=== PATIENT | female | born 1960 | race Caucasian/White ===

== ENCOUNTER → 2017-09-01 12:24 | Outpatient (CLI) | payer MEDICAID, SELFPAY ==
[2017-09-01 12:49] LABS: Basophils # 0.1 K/mm3 (0-0.2); Basophils % 0.9 % (0.1-2.0); Eosinophils # 0.1 K/mm3 (0.0-0.4); Eosinophils % 2.2 % (0.1-12.0); Hematocrit 33.2 % (37.0-47.0); Lymphocytes # 1.2 K/mm3 (0.7-4.5); Lymphocytes % 19.4 K/mm3 (10-50); Mean Corpuscular Hemoglobin 28.4 pg (27.0-31.2); Mean Corpuscular Volume 86.1 fl (81-99); Monocytes # 0.3 K/mm3 (0.1-1.0); Monocytes % 4.5 % (1.7-9.3); Neutrophils # 4.6 K/mm3 (1.8-7.8); Platelet Count 181 K/mm3 (142-424); Red Blood Count 3.85 M/mm3 (4.20-5.40); Red Cell Distribution Width 12.8 % (11.5-17.5); White Blood Count 6.3 K/mm3 (4.8-10.8)
[2017-09-01 13:12] LABS: Creatinine,Urine Random 16 mg/dL (20-320)
[2017-09-01 13:19] LABS: Albumin Level 3.7 gm/dL (3.4-5.0); Anion Gap 14.3 mEq/L (5-15); Blood Urea Nitrogen 39 mg/dL (7-18); Carbon Dioxide 28 mmol/L (21.0-32.0); Chloride 100 mmol/L (98-107); Creatinine,Serum 1.37 mg/dL (0.55-1.02); GFR (African American) 48 ML/MIN (>60); Glucose 145 mg/dL (74-106); Phosphorous 3.8 mg/dL (2.4-4.9); Potassium 4.3 mmoL/L (3.5-5.1); Sodium 138 mmol/L (136-145)
[2017-09-01 14:08] LABS: Glomerular Filtration Rate 39 mL/min (>60)
[2017-09-02 14:23] LABS: Vitamin D 25 Hydroxy 27.4 ng/mL (30.0-100.0)
[2017-09-02 14:26] LABS: Parathyroid Hormone Intact 34 pg/mL (15-65)
== END ==
PROVIDERS: PCP Internal Medicine Nephrology; Visit Provider Internal Medicine Nephrology
DX: N18.3 Chronic kidney disease, stage 3 (moderate) (principal)
CPT/HCPCS: 80069; 82570; 82652; 83970; 85025

== ENCOUNTER → 2017-10-23 12:22 | Outpatient (CLI) | payer MEDICAID, SELFPAY ==
[2017-10-23 12:24] LABS: Microscopic, Urine URINE MICROSCOPIC (MICROSCOPIC)
[2017-10-23 12:43] LABS: Basophils % 0.5 % (0.1-2.0); Eosinophils # 0.1 K/mm3 (0.0-0.4); Eosinophils % 2.1 % (0.1-12.0); Hematocrit 32.8 % (37.0-47.0); Hemoglobin 10.9 g/dL (12.2-16.2); Lymphocytes # 0.9 K/mm3 (0.7-4.5); Lymphocytes % 15.7 K/mm3 (10-50); Mean Corpuscular Hemoglobin 28.5 pg (27.0-31.2); Mean Corpuscular Volume 86.1 fl (81-99); Monocytes # 0.3 K/mm3 (0.1-1.0); Monocytes % 5.3 % (1.7-9.3); Neutrophils # 4.6 K/mm3 (1.8-7.8); Neutrophils % 76.3 % (37.0-80.0); Platelet Count 159 K/mm3 (142-424); Red Blood Count 3.81 M/mm3 (4.20-5.40); Red Cell Distribution Width 13.8 % (11.5-17.5)
[2017-10-23 12:58] LABS: Appearance,Urine SL CLOUDY (Clear); Bilirubin,Urine Negative (Negative); Blood, Urine 2+ (Negative); Color,Urine YELLOW (Yellow); Glucose,Urine (UA) Negative (Negative); Ketones,Urine Negative (Negative); Leukocyte Esterase,Urine 3+ (Negative); Nitrate,Urine POSITIVE (Negative); Protein,Urine Negative (Negative); Urobilinogen,Urine 0.2 EU/dl (0.2)
[2017-10-23 13:13] LABS: Bacteria,Urine 1+ /lpf; Mucus,Urine Trace /lpf; WBC,Urine 20-50 #/hpf (0-3)
[2017-10-23 13:21] LABS: Creatinine,Urine Random 50 mg/dL (20-320); Total Protein,Urine Random 29.1 mg/dL (0.0-11.9)
[2017-10-23 13:34] LABS: Albumin Level 3.8 gm/dL (3.4-5.0); Anion Gap 17.9 mEq/L (5-15); Blood Urea Nitrogen 40 mg/dL (7-18); Calcium 8.9 mg/dL (8.5-10.1); Carbon Dioxide 26 mmol/L (21.0-32.0); Chloride 102 mmol/L (98-107); Creatinine,Serum 1.44 mg/dL (0.55-1.02); Estimated Glomerular Filt Rate 38 ml/min (>60); GFR (African American) 45 ML/MIN (>60); Glucose 215 mg/dL (74-106); Phosphorous 4.6 mg/dL (2.4-4.9); Potassium 3.9 mmoL/L (3.5-5.1); Sodium 142 mmol/L (136-145)
== END ==
PROVIDERS: Visit Provider Internal Medicine Nephrology
DX: N18.3 Chronic kidney disease, stage 3 (moderate) (principal)
CPT/HCPCS: 36415; 80069; 81001; 82570; 84155; 85025; 87086; 87088; 87186

== ENCOUNTER → 2017-10-29 14:41 | Outpatient (POV) | payer MEDICAID, SELFPAY | PROVIDERS: PCP Internal Medicine Nephrology; Visit Provider Internal Medicine Nephrology | DX: Z00.00 Encounter for general adult medical examination without abnormal findings (principal) ==

== ENCOUNTER → 2017-12-21 07:50 | Outpatient (CLI) | payer MEDICAID, SELFPAY ==
[2017-12-21 09:45] LABS: Hemoglobin A1C 6.1 % (0.0-7.0)
[2017-12-21 09:59] LABS: Alanine Aminotransferase 29 U/L (12-78); Albumin Level 3.9 gm/dL (3.4-5.0); Albumin/Globulin Ratio 1.1 (1.1-1.8); Alkaline Phosphatase 63 U/L (46-116); Anion Gap 14.4 mEq/L (5-15); Aspartate Amino Transferase 16 U/L (15-37); Bilirubin,Total 0.4 mg/dL (0.2-1.0); Blood Urea Nitrogen 41 mg/dL (7-18); Calcium 9.2 mg/dL (8.5-10.1); Carbon Dioxide 27 mmol/L (21.0-32.0); Chloride 103 mmol/L (98-107); Chol/HDL Ratio 5.6 (1-3.5); Cholesterol 169 mg/dL (140-200); Creatinine,Serum 1.33 mg/dL (0.55-1.02); Estimated Glomerular Filt Rate 41 ml/min (>60); GFR (African American) 50 ML/MIN (>60); Globulin 3.6 gm/dl (1.3-3.2); Glucose 203 mg/dL (74-106); HDL Cholesterol 30 mg/dL (29-89); Potassium 4.4 mmoL/L (3.5-5.1); Sodium 140 mmol/L (136-145); Total Protein,Serum 7.5 gm/dL (6.4-8.2)
[2017-12-21 10:01] LABS: Triglycerides 469 mg/dL (30-200)
== END ==
PROVIDERS: Visit Provider Internal Medicine
DX: E11.9 Type 2 diabetes mellitus without complications (principal); I10 Essential (primary) hypertension
CPT/HCPCS: 36415; 80053; 80061; 83036

== ENCOUNTER 2018-02-16 12:29 | Outpatient (RCR) | payer MEDICAID, SELFPAY | END 2018-02-17 14:46 | disposition home or self-care (01) | LOC: PT 12:29 | PROVIDERS: PCP Internal Medicine Nephrology; Visit Provider Internal Medicine | DX: G82.20 Paraplegia, unspecified (principal) | CPT/HCPCS: 97542 ==

== ENCOUNTER → 2018-04-27 13:29 | Outpatient (CLI) | payer MEDICAID, SELFPAY ==
[2018-04-27 14:16] LABS: Basophils # 0.1 K/mm3 (0-0.2); Eosinophils # 0.1 K/mm3 (0.0-0.4); Eosinophils % 1.9 % (0.1-12.0); Hematocrit 30.8 % (37.0-47.0); Hemoglobin 10.2 g/dL (12.2-16.2); Lymphocytes # 1.1 K/mm3 (0.7-4.5); Lymphocytes % 19.4 K/mm3 (10-50); Mean Corpuscular HGB Conc 33.1 g/dL (31.8-35.4); Mean Corpuscular Hemoglobin 28.5 pg (27.0-31.2); Mean Platelet Volume 7.3 fl (7.4-10.4); Monocytes # 0.2 K/mm3 (0.1-1.0); Neutrophils # 4.3 K/mm3 (1.8-7.8); Neutrophils % 73.9 % (37.0-80.0); Platelet Count 236 K/mm3 (142-424); Red Blood Count 3.58 M/mm3 (4.20-5.40); Red Cell Distribution Width 14.1 % (11.5-17.5); White Blood Count 5.8 K/mm3 (4.8-10.8)
[2018-04-27 17:03] LABS: Albumin Level 3.8 gm/dL (3.4-5.0); Anion Gap 17.9 mEq/L (5-15); Blood Urea Nitrogen 24 mg/dL (7-18); Calcium 9.2 mg/dL (8.5-10.1); Carbon Dioxide 25 mmol/L (21.0-32.0); Chloride 103 mmol/L (98-107); Creatinine,Serum 1.07 mg/dL (0.55-1.02); Estimated Glomerular Filt Rate 53 ml/min (>60); GFR (African American) 64 ML/MIN (>60); Glucose 164 mg/dL (74-106); Phosphorous 3.7 mg/dL (2.4-4.9); Potassium 4.9 mmoL/L (3.5-5.1); Sodium 141 mmol/L (136-145)
== END ==
PROVIDERS: PCP Internal Medicine; Visit Provider Internal Medicine Nephrology
DX: N18.3 Chronic kidney disease, stage 3 (moderate) (principal)
CPT/HCPCS: 36415; 80069; 85025

== ENCOUNTER → 2018-04-29 09:33 | Outpatient (REF) | payer MEDICAID, SELFPAY ==
[2018-04-29 09:37] LABS: Microscopic, Urine URINE MICROSCOPIC (MICROSCOPIC)
[2018-04-29 10:18] LABS: Appearance,Urine CLEAR (Clear); Bilirubin,Urine Negative (Negative); Blood, Urine Negative (Negative); Color,Urine YELLOW (Yellow); Glucose,Urine (UA) Negative (Negative); Ketones,Urine Negative (Negative); Leukocyte Esterase,Urine Negative (Negative); Nitrate,Urine Negative (Negative); Protein,Urine Negative (Negative); Specific Gravity, Urine 1.015 (1.005-1.030); Urobilinogen,Urine 0.2 EU/dl (0.2)
[2018-04-29 10:55] LABS: Squamous Epithelial Cell,Urine Occasional #/hpf (0-5); WBC,Urine Occasional #/hpf (0-3)
[2018-04-29 10:56] LABS: Bacteria,Urine Trace /lpf
[2018-04-29 12:21] LABS: Creatinine,Urine Random 29 mg/dL (20-320); Total Protein,Urine Random 22.6 mg/dL (0.0-11.9)
== END ==
LOC: LAB 09:33
PROVIDERS: Visit Provider Internal Medicine Nephrology
DX: N18.3 Chronic kidney disease, stage 3 (moderate) (principal)
CPT/HCPCS: 81001; 82570; 84155

== ENCOUNTER → 2018-05-06 14:31 | Outpatient (POV) | payer MEDICAID, SELFPAY | PROVIDERS: PCP Internal Medicine; Visit Provider Internal Medicine Nephrology | DX: Z00.00 Encounter for general adult medical examination without abnormal findings (principal) ==

== ENCOUNTER → 2018-06-18 07:25 | Outpatient (CLI) | payer MEDICAID, SELFPAY ==
[2018-06-18 08:38] LABS: Hemoglobin A1C 6.2 % (0.0-7.0)
[2018-06-18 09:01] LABS: Alanine Aminotransferase 30 U/L (12-78); Albumin Level 3.8 gm/dL (3.4-5.0); Albumin/Globulin Ratio 1.1 (1.1-1.8); Alkaline Phosphatase 56 U/L (46-116); Anion Gap 16.1 mEq/L (5-15); Aspartate Amino Transferase 15 U/L (15-37); Bilirubin,Total 0.5 mg/dL (0.2-1.0); Blood Urea Nitrogen 25 mg/dL (7-18); Calcium 8.8 mg/dL (8.5-10.1); Carbon Dioxide 27 mmol/L (21.0-32.0); Chloride 103 mmol/L (98-107); Chol/HDL Ratio 4.1 (1-3.5); Cholesterol 142 mg/dL (140-200); Creatinine,Serum 1.04 mg/dL (0.55-1.02); Estimated Glomerular Filt Rate 54 ml/min (>60); GFR (African American) 66 ML/MIN (>60); Globulin 3.5 gm/dl (1.3-3.2); Glucose 169 mg/dL (74-106); HDL Cholesterol 35 mg/dL (29-89); LDL Cholesterol 41 mg/dL (0-130); Potassium 4.1 mmoL/L (3.5-5.1); Sodium 142 mmol/L (136-145); Thyroid Stimulating Hormone 1.89 uIU/ml (0.358-3.740); Total Protein,Serum 7.3 gm/dL (6.4-8.2); Triglycerides 328 mg/dL (30-200); VLDL Cholesterol 66 mg/dL (0-40)
== END ==
PROVIDERS: PCP Internal Medicine; Visit Provider Internal Medicine
DX: E11.21 Type 2 diabetes mellitus with diabetic nephropathy (principal); E78.5 Hyperlipidemia, unspecified; D64.9 Anemia, unspecified; N18.3 Chronic kidney disease, stage 3 (moderate); K76.0 Fatty (change of) liver, not elsewhere classified
CPT/HCPCS: 36415; 80053; 80061; 83036; 84443

== ENCOUNTER → 2018-07-13 14:58 | Outpatient (CLI) | payer MEDICAID, SELFPAY ==
--- NOTE | 2018-07-13 15:01 | MM_ITS ---
MM Dig screening mamm BI w/CAD ORDERING PHYSICIAN : Reji Cabello PATIENT AGE: 58 years GENDER: Female COMPARISON: May 2017, February 2013 bilateral mammogram February 2014Left mammogram INDICATION: ITS.October 2013 REASON: SCREENING no hormones no new complaints noncontributory family history. 58-year-old TECHNIQUE: Standard CC and MLO images were obtained. R2 CAD reviewed. FINDINGS: Moderate breast density. Asymmetric fibroglandular pattern RIGHT BREAST:Stable pattern and appearance. No new findings LEFT BREAST: Overall Stable Areas of nodularity on one view dissipate on another with no new areas of significant concern. . A few stable tiny benign punctate calcifications on cc view along with inferior skin calcifications noted.-Can be followed IMPRESSION: . No significant new areas of concern Bilateral follow-up in one year recommended. BI-RADS Category: 2 Benign Finding(s) RECOMMENDED FOLLOW-UP: 1YR 1 YEAR FOLLOW-UP (A letter has been sent to the patient regarding results of the study.)
== END ==
PROVIDERS: PCP Internal Medicine; Visit Provider Internal Medicine
DX: Z12.31 Encounter for screening mammogram for malignant neoplasm of breast (principal)
CPT/HCPCS: 77067

== ENCOUNTER → 2018-08-06 14:35 | Outpatient (CLI) | payer MEDICAID, SELFPAY ==
--- NOTE | 2018-08-06 14:41 | XR_ITS ---
XR foot LT min 3V HISTORY: Pain and swelling ITS.REASON: TYPE II,LT FOOT ULCER,CELLULITIS ORDERING PHYSICIAN: Reji Cabello PATIENT AGE: 58 years COMPARISON: None FINDINGS: There is generalized osteopenia and soft tissue swelling of the left foot. No obvious lytic process apparent. No fracture or radio opaque body or soft tissue gas. IMPRESSION: Generalized osteopenia with soft tissue swelling
== END ==
PROVIDERS: PCP Internal Medicine; Visit Provider Internal Medicine
DX: L03.119 Cellulitis of unspecified part of limb (principal); L97.521 Non-pressure chronic ulcer of other part of left foot limited to breakdown of skin; E11.9 Type 2 diabetes mellitus without complications
CPT/HCPCS: 73630

== ENCOUNTER → 2018-11-09 10:35 | Outpatient (CLI) | payer MEDICAID, SELFPAY ==
[2018-11-09 10:39] LABS: Microscopic, Urine URINE MICROSCOPIC (MICROSCOPIC)
[2018-11-09 11:00] LABS: Basophils % 0.7 % (0.1-2.0); Eosinophils % 0.7 % (0.1-12.0); Hematocrit 31.8 % (37.0-47.0); Hemoglobin 10.9 g/dL (12.2-16.2); Lymphocytes # 0.8 K/mm3 (0.7-4.5); Mean Corpuscular HGB Conc 34.3 g/dL (31.8-35.4); Mean Corpuscular Hemoglobin 29.9 pg (27.0-31.2); Mean Corpuscular Volume 87.1 fl (81-99); Mean Platelet Volume 8.8 fl (7.4-10.4); Monocytes # 0.3 K/mm3 (0.1-1.0); Monocytes % 5.3 % (1.7-9.3); Neutrophils # 3.7 K/mm3 (1.8-7.8); Neutrophils % 76.4 % (37.0-80.0); Platelet Count 150 K/mm3 (142-424); Red Blood Count 3.64 M/mm3 (4.20-5.40); Red Cell Distribution Width 14.2 % (11.5-17.5); White Blood Count 4.8 K/mm3 (4.8-10.8)
[2018-11-09 11:09] LABS: Anion Gap 17.7 mEq/L (5-15); Appearance,Urine CLEAR (Clear); Bilirubin,Urine Negative (Negative); Blood Urea Nitrogen 31 mg/dL (7-18); Blood, Urine TRACE-L (Negative); Carbon Dioxide 25 mmol/L (21.0-32.0); Chloride 99 mmol/L (98-107); Color,Urine YELLOW (Yellow); Creatinine,Serum 1.28 mg/dL (0.55-1.02); Estimated Glomerular Filt Rate 43 ml/min (>60); GFR (African American) 52 ML/MIN (>60); Glucose 190 mg/dL (74-106); Glucose,Urine (UA) Negative (Negative); Ketones,Urine Negative (Negative); Leukocyte Esterase,Urine 2+ (Negative); Nitrate,Urine Negative (Negative); PH,Urine 5.5 (5.0-8.5); Potassium 3.7 mmoL/L (3.5-5.1); Protein,Urine Negative (Negative); Sodium 138 mmol/L (136-145); Specific Gravity, Urine <= 1.005 (1.005-1.030); Urobilinogen,Urine 0.2 EU/dl (0.2)
[2018-11-09 11:20] LABS: Bacteria,Urine 1+ /lpf; Mucus,Urine 1+ /lpf; RBC,Urine Occasional #/hpf (0-3); Squamous Epithelial Cell,Urine Occasional #/hpf (0-5)
== END ==
PROVIDERS: Visit Provider Internal Medicine
DX: R50.9 Fever, unspecified (principal); N39.0 Urinary tract infection, site not specified; N18.3 Chronic kidney disease, stage 3 (moderate)
CPT/HCPCS: 36415; 80048; 80053; 81001; 85025; 87040; 87086; 87088; 87186; 87275; 87276

== ENCOUNTER → 2019-01-10 07:31 | Outpatient (CLI) | payer MEDICAID, SELFPAY ==
[2019-01-10 07:55] LABS: Basophils % 0.5 % (0.1-2.0); Eosinophils # 0.1 K/mm3 (0.0-0.4); Eosinophils % 0.7 % (0.1-12.0); Hematocrit 32.1 % (37.0-47.0); Hemoglobin 10.6 g/dL (12.2-16.2); Lymphocytes # 0.8 K/mm3 (0.7-4.5); Lymphocytes % 10.2 % (10-50); Mean Corpuscular HGB Conc 32.9 g/dL (31.8-35.4); Mean Corpuscular Hemoglobin 28.7 pg (27.0-31.2); Mean Corpuscular Volume 87.2 fl (81-99); Mean Platelet Volume 8.2 fl (7.4-10.4); Monocytes # 0.4 K/mm3 (0.1-1.0); Monocytes % 4.9 % (1.7-9.3); Neutrophils # 6.7 K/mm3 (1.8-7.8); Neutrophils % 83.6 % (37.0-80.0); Platelet Count 182 K/mm3 (142-424); Red Blood Count 3.68 M/mm3 (4.20-5.40); Red Cell Distribution Width 13.7 % (11.5-17.5)
[2019-01-10 08:25] LABS: Alanine Aminotransferase 27 U/L (12-78); Albumin Level 3.7 gm/dL (3.4-5.0); Alkaline Phosphatase 63 U/L (46-116); Anion Gap 16.1 mEq/L (5-15); Aspartate Amino Transferase 9 U/L (15-37); Bilirubin,Total 0.7 mg/dL (0.2-1.0); Blood Urea Nitrogen 39 mg/dL (7-18); Calcium 8.8 mg/dL (8.5-10.1); Carbon Dioxide 28 mmol/L (21.0-32.0); Chloride 100 mmol/L (98-107); Chol/HDL Ratio 3.6 (1-3.5); Cholesterol 138 mg/dL (140-200); Creatinine,Serum 1.51 mg/dL (0.55-1.02); Estimated Glomerular Filt Rate 35 ml/min (>60); GFR (African American) 43 ML/MIN (>60); Globulin 3.8 gm/dl (1.3-3.2); Glucose 218 mg/dL (74-106); HDL Cholesterol 38 mg/dL (29-89); LDL Cholesterol 60 mg/dL (0-130); Potassium 4.1 mmoL/L (3.5-5.1); Sodium 140 mmol/L (136-145); Total Protein,Serum 7.5 gm/dL (6.4-8.2); Triglycerides 200 mg/dL (30-200); VLDL Cholesterol 40 mg/dL (0-40)
[2019-01-10 09:25] LABS: Hemoglobin A1C 6.5 % (0.0-7.0)
== END ==
PROVIDERS: Visit Provider Internal Medicine
DX: E11.21 Type 2 diabetes mellitus with diabetic nephropathy (principal); Z79.84 Long term (current) use of oral hypoglycemic drugs; N18.3 Chronic kidney disease, stage 3 (moderate); I10 Essential (primary) hypertension; I87.2 Venous insufficiency (chronic) (peripheral)
CPT/HCPCS: 36415; 80053; 80061; 83036; 85025

== ENCOUNTER → 2019-04-11 14:05 | Outpatient (CLI) | payer MEDICAID, SELFPAY ==
[2019-04-11 14:09] LABS: Microscopic, Urine URINE MICROSCOPIC (MICROSCOPIC)
[2019-04-11 14:33] LABS: Appearance,Urine CLEAR (Clear); Basophils % 0.3 % (0.1-2.0); Bilirubin,Urine Negative (Negative); Blood, Urine 1+ (Negative); Color,Urine YELLOW (Yellow); Eosinophils % 0.2 % (0.1-12.0); Glucose,Urine (UA) Negative (Negative); Hemoglobin 9.9 g/dL (12.2-16.2); Ketones,Urine Negative (Negative); Leukocyte Esterase,Urine 3+ (Negative); Lymphocytes % 9.8 % (10-50); Mean Corpuscular HGB Conc 32.9 g/dL (31.8-35.4); Mean Corpuscular Hemoglobin 28.4 pg (27.0-31.2); Mean Corpuscular Volume 86.3 fl (81-99); Mean Platelet Volume 8.5 fl (7.4-10.4); Monocytes # 0.6 K/mm3 (0.1-1.0); Monocytes % 5.4 % (1.7-9.3); Neutrophils % 84.3 % (37.0-80.0); Nitrate,Urine Negative (Negative); PH,Urine 5.5 (5.0-8.5); Platelet Count 188 K/mm3 (142-424); Protein,Urine Negative (Negative); Red Blood Count 3.48 M/mm3 (4.20-5.40); Red Cell Distribution Width 13.7 % (11.5-17.5); Urobilinogen,Urine 0.2 EU/dl (0.2); White Blood Count 10.7 K/mm3 (4.8-10.8)
[2019-04-11 14:35] LABS: Anion Gap 14.4 mEq/L (5-15); Blood Urea Nitrogen 30 mg/dL (7-18); Calcium 8.7 mg/dL (8.5-10.1); Carbon Dioxide 27 mmol/L (21.0-32.0); Chloride 101 mmol/L (98-107); Creatinine,Serum 1.56 mg/dL (0.55-1.02); Estimated Glomerular Filt Rate 34 ml/min (>60); GFR (African American) 41 ML/MIN (>60); Glucose 126 mg/dL (74-106); Potassium 3.4 mmoL/L (3.5-5.1); Sodium 139 mmol/L (136-145)
[2019-04-11 14:45] LABS: Bacteria,Urine 4+ /lpf; Squamous Epithelial Cell,Urine Occasional #/hpf (0-5); WBC,Urine 20-50 #/hpf (0-3)
== END ==
PROVIDERS: Visit Provider Internal Medicine
DX: R50.9 Fever, unspecified (principal); N39.0 Urinary tract infection, site not specified; N18.3 Chronic kidney disease, stage 3 (moderate)
CPT/HCPCS: 36415; 80048; 81001; 85025; 87040; 87086; 87088; 87186

== ENCOUNTER → 2019-05-17 15:09 | Outpatient (CLI) | payer MEDICAID, SELFPAY ==
[2019-05-17 15:27] LABS: Anion Gap 14.5 mEq/L (5-15); Basophils % 0.5 % (0.1-2.0); Blood Urea Nitrogen 38 mg/dL (7-18); Calcium 9.4 mg/dL (8.5-10.1); Carbon Dioxide 29 mmol/L (21.0-32.0); Chloride 99 mmol/L (98-107); Creatinine,Serum 1.48 mg/dL (0.55-1.02); Eosinophils # 0.1 K/mm3 (0.0-0.4); Eosinophils % 1.4 % (0.1-12.0); Estimated Glomerular Filt Rate 36 ml/min (>60); GFR (African American) 44 ML/MIN (>60); Glucose 124 mg/dL (74-106); Hematocrit 32.7 % (37.0-47.0); Hemoglobin 10.7 g/dL (12.2-16.2); Lymphocytes # 1.2 K/mm3 (0.7-4.5); Lymphocytes % 16.9 % (10-50); Mean Corpuscular HGB Conc 32.6 g/dL (31.8-35.4); Mean Corpuscular Hemoglobin 27.8 pg (27.0-31.2); Mean Corpuscular Volume 85.3 fl (81-99); Mean Platelet Volume 8.7 fl (7.4-10.4); Monocytes # 0.3 K/mm3 (0.1-1.0); Monocytes % 4.4 % (1.7-9.3); Neutrophils # 5.6 K/mm3 (1.8-7.8); Neutrophils % 76.8 % (37.0-80.0); Platelet Count 212 K/mm3 (142-424); Potassium 3.5 mmoL/L (3.5-5.1); Red Blood Count 3.84 M/mm3 (4.20-5.40); Red Cell Distribution Width 14.3 % (11.5-17.5); Sodium 139 mmol/L (136-145); White Blood Count 7.3 K/mm3 (4.8-10.8)
== END ==
PROVIDERS: Visit Provider Internal Medicine
DX: R10.13 Epigastric pain (principal)
CPT/HCPCS: 36415; 80048; 85025

== ENCOUNTER → 2019-05-26 13:35 | Outpatient (CLI) | payer MEDICAID, SELFPAY ==
[2019-05-26 13:38] LABS: Microscopic, Urine URINE MICROSCOPIC (MICROSCOPIC)
[2019-05-26 13:49] LABS: Appearance,Urine CLEAR (Clear); Bilirubin,Urine Negative (Negative); Blood, Urine TRACE-L (Negative); Color,Urine YELLOW (Yellow); Glucose,Urine (UA) Negative (Negative); Ketones,Urine Negative (Negative); Leukocyte Esterase,Urine 3+ (Negative); Nitrate,Urine Negative (Negative); Protein,Urine Negative (Negative); Specific Gravity, Urine <= 1.005 (1.005-1.030); Urobilinogen,Urine 0.2 EU/dl (0.2)
[2019-05-26 13:53] LABS: Basophils % 0.4 % (0.1-2.0); Eosinophils # 0.1 K/mm3 (0.0-0.4); Eosinophils % 1.1 % (0.1-12.0); Hematocrit 29.3 % (37.0-47.0); Hemoglobin 9.1 g/dL (12.2-16.2); Lymphocytes % 12.6 % (10-50); Mean Corpuscular Volume 87.1 fl (81-99); Mean Platelet Volume 9.5 fl (7.4-10.4); Monocytes # 0.4 K/mm3 (0.1-1.0); Monocytes % 4.3 % (1.7-9.3); Neutrophils # 6.7 K/mm3 (1.8-7.8); Neutrophils % 81.6 % (37.0-80.0); Platelet Count 224 K/mm3 (142-424); Red Blood Count 3.36 M/mm3 (4.20-5.40); Red Cell Distribution Width 14.8 % (11.5-17.5); White Blood Count 8.2 K/mm3 (4.8-10.8)
[2019-05-26 14:19] LABS: Creatinine,Urine Random 18 mg/dL (20-320); Total Protein,Urine Random 19.4 mg/dL (0.0-11.9)
[2019-05-26 14:55] LABS: Albumin Level 3.4 gm/dL (3.4-5.0); Anion Gap 15.5 mEq/L (5-15); Bacteria,Urine 2+ /lpf; Blood Urea Nitrogen 27 mg/dL (7-18); Calcium 8.3 mg/dL (8.5-10.1); Carbon Dioxide 25 mmol/L (21.0-32.0); Chloride 101 mmol/L (98-107); Creatinine,Serum 1.38 mg/dL (0.55-1.02); Estimated Glomerular Filt Rate 39 ml/min (>60); GFR (African American) 47 ML/MIN (>60); Glucose 185 mg/dL (74-106); Phosphorous 2.8 mg/dL (2.4-4.9); Potassium 3.5 mmoL/L (3.5-5.1); Sodium 138 mmol/L (136-145); Squamous Epithelial Cell,Urine Occasional #/hpf (0-5)
[2019-05-28 13:48] LABS: Vitamin D 25 Hydroxy 38.6 ng/mL (30.0-100.0)
[2019-05-28 15:38] LABS: Calcium, Ionized 4.7 mg/dL (4.5-5.6)
[2019-05-31 07:02] LABS: Parathyroid Hormone Intact 41 pg/mL (15-65)
== END ==
PROVIDERS: Visit Provider Internal Medicine Nephrology
DX: N18.3 Chronic kidney disease, stage 3 (moderate) (principal)
CPT/HCPCS: 36415; 80069; 81001; 82330; 82570; 82652; 83970; 84155; 85025; 87086; 87088; 87186

== ENCOUNTER → 2019-06-02 15:36 | Outpatient (POV) | payer MEDICAID, SELFPAY | PROVIDERS: Visit Provider Internal Medicine Nephrology | DX: Z00.00 Encounter for general adult medical examination without abnormal findings (principal) ==

== ENCOUNTER → 2019-07-08 13:26 | Outpatient (CLI) | payer OTHER, SELFPAY ==
[2019-07-08 14:53] LABS: Basophils % 0.6 % (0.1-2.0); Eosinophils # 0.2 K/mm3 (0.0-0.4); Eosinophils % 2.7 % (0.1-12.0); Hematocrit 32.3 % (37.0-47.0); Hemoglobin 10.8 g/dL (12.2-16.2); Lymphocytes # 1.1 K/mm3 (0.7-4.5); Lymphocytes % 19.1 % (10-50); Mean Corpuscular HGB Conc 33.4 g/dL (31.8-35.4); Mean Corpuscular Hemoglobin 29.4 pg (27.0-31.2); Mean Platelet Volume 8.4 fl (7.4-10.4); Monocytes # 0.3 K/mm3 (0.1-1.0); Monocytes % 4.8 % (1.7-9.3); Neutrophils # 4.3 K/mm3 (1.8-7.8); Neutrophils % 72.9 % (37.0-80.0); Platelet Count 186 K/mm3 (142-424); Red Blood Count 3.67 M/mm3 (4.20-5.40); Red Cell Distribution Width 14.5 % (11.5-17.5); White Blood Count 5.8 K/mm3 (4.8-10.8)
[2019-07-08 15:36] LABS: Ferritin 202 ng/mL (8-388)
[2019-07-09 08:23] LABS: Iron 43 ug/dL (27-159); UIBC 244 ug/dL (131-425)
[2019-07-09 18:17] LABS: Iron Saturation 15 % (15-55)
== END ==
PROVIDERS: Visit Provider Internal Medicine Nephrology
DX: D63.8 Anemia in other chronic diseases classified elsewhere (principal); N18.3 Chronic kidney disease, stage 3 (moderate)
CPT/HCPCS: 36415; 82728; 83540; 83550; 85025

== ENCOUNTER → 2019-07-14 07:14 | Outpatient (CLI) | payer OTHER, SELFPAY ==
[2019-07-14 08:01] LABS: Hemoglobin A1C 6.3 % (0.0-7.0)
[2019-07-14 08:30] LABS: Alanine Aminotransferase 24 U/L (12-78); Albumin Level 3.6 gm/dL (3.4-5.0); Albumin/Globulin Ratio 1.1 (1.1-1.8); Alkaline Phosphatase 51 U/L (46-116); Anion Gap 16.4 mEq/L (5-15); Aspartate Amino Transferase 16 U/L (15-37); Bilirubin,Total 0.4 mg/dL (0.2-1.0); Blood Urea Nitrogen 30 mg/dL (7-18); Calcium 8.5 mg/dL (8.5-10.1); Carbon Dioxide 23 mmol/L (21.0-32.0); Chloride 104 mmol/L (98-107); Chol/HDL Ratio 4.1 (1-3.5); Cholesterol 128 mg/dL (140-200); Creatinine,Serum 1.37 mg/dL (0.55-1.02); Estimated Glomerular Filt Rate 39 ml/min (>60); GFR (African American) 48 ML/MIN (>60); Globulin 3.4 gm/dl (1.3-3.2); Glucose 171 mg/dL (74-106); HDL Cholesterol 31 mg/dL (29-89); LDL Cholesterol 19 mg/dL (0-130); Potassium 4.4 mmoL/L (3.5-5.1); Sodium 139 mmol/L (136-145); Triglycerides 390 mg/dL (30-200); VLDL Cholesterol 78 mg/dL (0-40)
== END ==
PROVIDERS: Visit Provider Internal Medicine
DX: E11.21 Type 2 diabetes mellitus with diabetic nephropathy (principal); N18.3 Chronic kidney disease, stage 3 (moderate); G82.21 Paraplegia, complete
CPT/HCPCS: 36415; 80053; 80061; 83036

== ENCOUNTER → 2020-01-02 07:12 | Outpatient (CLI) | payer OTHER, SELFPAY ==
[2020-01-02 07:20] LABS: Microscopic, Urine URINE MICROSCOPIC (MICROSCOPIC)
[2020-01-02 07:54] LABS: Appearance,Urine CLEAR (Clear); Bilirubin,Urine Negative (Negative); Blood, Urine 1+ (Negative); Color,Urine YELLOW (Yellow); Glucose,Urine (UA) Negative (Negative); Ketones,Urine Negative (Negative); Leukocyte Esterase,Urine 2+ (Negative); Nitrate,Urine Negative (Negative); Protein,Urine Negative (Negative); Specific Gravity, Urine 1.015 (1.005-1.030); Urobilinogen,Urine 0.2 EU/dl (0.2)
[2020-01-02 08:04] LABS: Basophils % 0.5 % (0.1-2.0); Eosinophils # 0.2 K/mm3 (0.0-0.4); Eosinophils % 2.4 % (0.1-12.0); Hematocrit 32.1 % (37.0-47.0); Hemoglobin 10.9 g/dL (12.2-16.2); Lymphocytes % 16.4 % (10-50); Mean Corpuscular HGB Conc 33.9 g/dL (31.8-35.4); Mean Corpuscular Hemoglobin 28.7 pg (27.0-31.2); Mean Corpuscular Volume 84.7 fl (81-99); Mean Platelet Volume 8.9 fl (7.4-10.4); Monocytes # 0.3 K/mm3 (0.1-1.0); Monocytes % 5.2 % (1.7-9.3); Neutrophils # 4.7 K/mm3 (1.8-7.8); Neutrophils % 75.6 % (37.0-80.0); Platelet Count 176 K/mm3 (142-424); Red Blood Count 3.79 M/mm3 (4.20-5.40); Red Cell Distribution Width 13.9 % (11.5-17.5); White Blood Count 6.2 K/mm3 (4.8-10.8)
[2020-01-02 08:05] LABS: Creatinine,Urine Random 26 mg/dL (Not Estab.)
[2020-01-02 08:32] LABS: Chloride 102 mmol/L (98-107); Potassium 4.4 mmoL/L (3.5-5.1); Sodium 139 mmol/L (136-145)
[2020-01-02 08:35] LABS: Alanine Aminotransferase 25 U/L (12-78); Albumin Level 4.2 g/dl (3.5-5.0); Albumin/Globulin Ratio 1.6 (1.1-1.8); Alkaline Phosphatase 45 U/L (38-126); Anion Gap 17.4 mEq/L (5-15); Aspartate Amino Transferase 22 U/L (14-36); Bilirubin,Total 0.5 mg/dl (0.2-1.3); Blood Urea Nitrogen 42 mg/dl (7-17); Carbon Dioxide 24 mmol/L (22.0-30.0); Cholesterol 112 mg/dl (140-200); Estimated Glomerular Filt Rate 46 ml/min (>60); GFR (African American) 56 ML/MIN (>60); Globulin 2.6 g/dL (1.3-3.2); Total Protein,Serum 6.8 g/dl (6.3-8.2); Triglycerides 205 mg/dl (30-150); VLDL Cholesterol 41 mg/dL (0-40)
[2020-01-02 08:36] LABS: Calcium 10.2 mg/dl (8.4-10.2); Chol/HDL Ratio 3.4 (1-3.5); Glucose 184 mg/dl (74-100); HDL Cholesterol 33 mg/dl (40-60)
[2020-01-02 08:47] LABS: Direct LDL Cholesterol 53.77 mg/dL (100-129)
[2020-01-02 09:02] LABS: Bacteria,Urine 2+ /lpf; Squamous Epithelial Cell,Urine Occasional #/hpf (0-5); WBC,Urine 20-50 #/hpf (0-3)
[2020-01-02 10:40] LABS: Albumin Level 4.4 g/dl (3.5-5.0); Anion Gap 15.4 mEq/L (5-15); Blood Urea Nitrogen 45 mg/dl (7-17); Calcium 10.3 mg/dl (8.4-10.2); Carbon Dioxide 24 mmol/L (22.0-30.0); Chloride 102 mmol/L (98-107); Estimated Glomerular Filt Rate 51 ml/min (>60); GFR (African American) 62 ML/MIN (>60); Glucose 180 mg/dl (74-100); Phosphorous 4.6 mg/dl (2.5-4.5); Potassium 4.4 mmoL/L (3.5-5.1); Sodium 137 mmol/L (136-145)
[2020-01-02 13:09] LABS: Hemoglobin A1C 5.4 % (4.0-6.0)
== END ==
PROVIDERS: PCP Internal Medicine; Visit Provider Internal Medicine Nephrology
DX: N18.3 Chronic kidney disease, stage 3 (moderate) (principal); I10 Essential (primary) hypertension; E11.21 Type 2 diabetes mellitus with diabetic nephropathy; G82.21 Paraplegia, complete; E78.5 Hyperlipidemia, unspecified; K76.0 Fatty (change of) liver, not elsewhere classified
CPT/HCPCS: 36415; 80053; 80061; 80069; 81001; 82570; 83036; 84155; 85025; 87086; 87088; 87186

== ENCOUNTER → 2020-04-09 14:50 | Outpatient (CLI) | payer OTHER, SELFPAY ==
[2020-04-09 14:51] LABS: Microscopic, Urine URINE MICROSCOPIC (MICROSCOPIC)
[2020-04-09 15:15] LABS: Appearance,Urine CLEAR (Clear); Bilirubin,Urine Negative (Negative); Blood, Urine Negative (Negative); Color,Urine YELLOW (Yellow); Glucose,Urine (UA) Negative (Negative); Ketones,Urine Negative (Negative); Leukocyte Esterase,Urine 1+ (Negative); Nitrate,Urine POSITIVE (Negative); Protein,Urine Negative (Negative); Urobilinogen,Urine 0.2 EU/dl (0.2)
[2020-04-09 15:31] LABS: Amorphous Sediment,Urine Trace /lpf; Bacteria,Urine Trace /lpf; Squamous Epithelial Cell,Urine Occasional #/hpf (0-5)
== END ==
PROVIDERS: Visit Provider Internal Medicine
DX: R82.90 Unspecified abnormal findings in urine (principal)
CPT/HCPCS: 81001; 87086; 87088; 87186

== ENCOUNTER → 2020-05-15 14:22 | Outpatient (CLI) | payer OTHER, SELFPAY ==
[2020-05-15 14:28] LABS: Microscopic, Urine URINE MICROSCOPIC (MICROSCOPIC)
[2020-05-15 14:40] LABS: Appearance,Urine CLEAR (Clear); Bilirubin,Urine Negative (Negative); Blood, Urine Negative (Negative); Color,Urine YELLOW (Yellow); Glucose,Urine (UA) Negative (Negative); Ketones,Urine Negative (Negative); Leukocyte Esterase,Urine TRACE (Negative); Nitrate,Urine Negative (Negative); PH,Urine 5.5 (5.0-8.5); Protein,Urine Negative (Negative); Urobilinogen,Urine 0.2 EU/dl (0.2)
== END ==
PROVIDERS: Visit Provider Internal Medicine
DX: N39.0 Urinary tract infection, site not specified (principal)
CPT/HCPCS: 81001; 87086; 87088; 87186

== ENCOUNTER → 2020-07-04 06:48 | Outpatient (CLI) | payer OTHER, SELFPAY ==
[2020-07-04 07:03] LABS: Basophils % 0.9 % (0.1-2.0); Eosinophils # 0.1 K/mm3 (0.0-0.4); Eosinophils % 2.9 % (0.1-12.0); Hematocrit 33.6 % (37.0-47.0); Hemoglobin 10.7 g/dL (12.2-16.2); Lymphocytes # 0.9 K/mm3 (0.7-4.5); Lymphocytes % 19.9 % (10-50); Mean Corpuscular Volume 90.5 fl (81-99); Mean Platelet Volume 7.8 fl (7.4-10.4); Monocytes # 0.2 K/mm3 (0.1-1.0); Monocytes % 5.4 % (1.7-9.3); Neutrophils # 3.1 K/mm3 (1.8-7.8); Neutrophils % 70.9 % (37.0-80.0); Platelet Count 162 K/mm3 (142-424); Red Blood Count 3.71 M/mm3 (4.20-5.40); Red Cell Distribution Width 13.8 % (11.5-17.5); White Blood Count 4.4 K/mm3 (4.8-10.8)
[2020-07-04 08:04] LABS: Chloride 103 mmol/L (98-107); Potassium 4.4 mmoL/L (3.5-5.1); Sodium 141 mmol/L (136-145)
[2020-07-04 08:07] LABS: Alanine Aminotransferase 27 U/L (12-78); Albumin Level 4.1 g/dl (3.5-5.0); Albumin/Globulin Ratio 1.5 (1.1-1.8); Alkaline Phosphatase 35 U/L (38-126); Anion Gap 13.4 mEq/L (5-15); Aspartate Amino Transferase 26 U/L (14-36); Bilirubin,Total 0.6 mg/dl (0.2-1.3); Blood Urea Nitrogen 28 mg/dl (7-17); Carbon Dioxide 29 mmol/L (22.0-30.0); Cholesterol 134 mg/dl (140-200); Estimated Glomerular Filt Rate 51 ml/min (>60); GFR (African American) 61 ML/MIN (>60); Globulin 2.8 g/dL (1.3-3.2); Total Protein,Serum 6.9 g/dl (6.3-8.2); Triglycerides 227 mg/dl (30-150); VLDL Cholesterol 45 mg/dL (0-40)
[2020-07-04 08:08] LABS: Calcium 9.1 mg/dl (8.4-10.2); Chol/HDL Ratio 4.2 (1-3.5); Glucose 163 mg/dl (74-100); HDL Cholesterol 32 mg/dl (40-60)
[2020-07-04 08:19] LABS: Direct LDL Cholesterol 55.75 mg/dL (100-129)
[2020-07-04 08:23] LABS: Hemoglobin A1C 5.7 % (4.0-6.0)
== END ==
PROVIDERS: Visit Provider Internal Medicine
DX: E11.21 Type 2 diabetes mellitus with diabetic nephropathy (principal); N18.30 Chronic kidney disease, stage 3 unspecified; K76.0 Fatty (change of) liver, not elsewhere classified; I10 Essential (primary) hypertension; I87.2 Venous insufficiency (chronic) (peripheral); G82.21 Paraplegia, complete; Z79.84 Long term (current) use of oral hypoglycemic drugs
CPT/HCPCS: 36415; 80053; 80061; 83036; 85025

== ENCOUNTER 2020-11-05 09:39 | Day surgery (SDC) | payer OTHER, SELFPAY ==
[2020-11-01 13:32] VITALS: BMI 33.9
[2020-11-05 09:57] VITALS: BP 171/76; PULSE 70; RESP 16; TEMP 36.5; O2SAT 96
[2020-11-05 10:02] LABS: POC Glucose,Bedside 199 (70-110)
[2020-11-05 10:25] VITALS: BP 150/74; PULSE 62; RESP 18; TEMP 36.3; O2SAT 96
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
== END 2020-11-05 10:35 | disposition home or self-care (01) ==
LOC: OUTP 09:41
PROVIDERS: PCP Internal Medicine; Visit Provider Urology
PROC: 0TJB8ZZ Inspection of Bladder, Via Natural or Artificial Opening Endoscopic (ICD-10-PCS; CPT 52000; principal; 2020-11-05 10:30)
DX: N99.524 Stenosis of incontinent stoma of urinary tract (principal); N31.9 Neuromuscular dysfunction of bladder, unspecified; Z90.5 Acquired absence of kidney; E11.9 Type 2 diabetes mellitus without complications; Z79.84 Long term (current) use of oral hypoglycemic drugs; Z79.899 Other long term (current) drug therapy
CPT/HCPCS: 52000; 82962

== ENCOUNTER → 2021-02-28 13:19 | Outpatient (POV) | payer OTHER, SELFPAY | PROVIDERS: Visit Provider Internal Medicine Nephrology | DX: Z00.00 Encounter for general adult medical examination without abnormal findings (principal) ==

== ENCOUNTER → 2021-06-28 17:20 | Outpatient (CLI) | payer OTHER, SELFPAY | PROVIDERS: Visit Provider Internal Medicine | DX: L97.412 Non-pressure chronic ulcer of right heel and midfoot with fat layer exposed (principal); L97.511 Non-pressure chronic ulcer of other part of right foot limited to breakdown of skin | CPT/HCPCS: 87070; 87205 ==

== ENCOUNTER → 2021-07-09 07:12 | Outpatient (CLI) | payer OTHER, SELFPAY ==
[2021-07-09 08:19] LABS: Alanine Aminotransferase 20 U/L (12-78); Albumin/Globulin Ratio 1.5 (1.1-1.8); Alkaline Phosphatase 41 U/L (38-126); Anion Gap 15.7 mEq/L (5-15); Aspartate Amino Transferase 22 U/L (14-36); Bilirubin,Total 0.3 mg/dl (0.2-1.3); Blood Urea Nitrogen 39 mg/dl (7-17); Calcium 9.1 mg/dl (8.4-10.2); Carbon Dioxide 24 mmol/L (22.0-30.0); Chloride 105 mmol/L (98-107); Chol/HDL Ratio 4.1 (1-3.5); Cholesterol 120 mg/dl (140-200); Estimated Glomerular Filt Rate 42 ml/min (>60); GFR (African American) 50 ML/MIN (>60); Globulin 2.6 g/dL (1.3-3.2); Glucose 177 mg/dl (74-100); HDL Cholesterol 29 mg/dl (40-60); Potassium 5.7 mmoL/L (3.5-5.1); Sodium 139 mmol/L (136-145); Total Protein,Serum 6.6 g/dl (6.3-8.2); Triglycerides 227 mg/dl (30-150); VLDL Cholesterol 45 mg/dL (0-40)
[2021-07-09 08:30] LABS: Direct LDL Cholesterol 43.62 mg/dL (100-129)
[2021-07-09 08:37] LABS: Hemoglobin A1C 6.8 % (4.0-6.0)
== END ==
PROVIDERS: Visit Provider Internal Medicine
DX: I10 Essential (primary) hypertension (principal); E11.21 Type 2 diabetes mellitus with diabetic nephropathy; E78.5 Hyperlipidemia, unspecified; N18.30 Chronic kidney disease, stage 3 unspecified; K76.0 Fatty (change of) liver, not elsewhere classified; Z79.84 Long term (current) use of oral hypoglycemic drugs
CPT/HCPCS: 36415; 80053; 80061; 83036

== ENCOUNTER → 2021-11-20 13:57 | Outpatient (CLI) | payer OTHER, SELFPAY | PROVIDERS: Visit Provider Urology | DX: Z01.812 Encounter for preprocedural laboratory examination (principal); Z11.52 Encounter for screening for COVID-19; N31.9 Neuromuscular dysfunction of bladder, unspecified | CPT/HCPCS: C9803; U0003; U0005 ==

== ENCOUNTER 2021-11-22 09:50 | Day surgery (SDC) | payer OTHER, SELFPAY ==
[2021-11-20 12:09] VITALS: BMI 32.8
[2021-11-22 10:17] VITALS: BP 149/60; PULSE 58; RESP 18; TEMP 36.8; O2SAT 93
[2021-11-22 11:12] VITALS: BP 146/67; PULSE 59; RESP 16; TEMP 36.4; O2SAT 96
[2021-11-22 11:30] VITALS: BP 153/76; PULSE 54; RESP 16; O2SAT 97
--- NOTE | 2021-12-03 13:31 | HMH.OPNOTE ---
Date of procedure: 12/03/21 Pre-op Diagnosis:: Patient with long history of ileal conduit Post-op Diagnosis:: Same Procedure performed:: Surveillance looposcopy Surgeon:: Constantin Cannon MD Anesthesia: local Estimated blood loss (mL): 0 Clinical Note:: 61-year-old white female with a 50-year history of an ileal conduit to a solitary kidney. She presents for surveillance looposcopy. Operative findings:: No evidence of any suspicious mucosal changes. Operative note:: Patient taken to the cystoscopy suite after informed consent was obtained. On the stretcher she was prepped and draped in the standard surgical fashion. The 16 Mauritian flexible scope was placed into the patient's stoma of her ileal conduit in her right lower quadrant. It passed proximally to a narrower segment which was able to be passed as well. We passed the scope to the end of the conduit where the ureteral orifice was noted. It was clearly a refluxing orifice. The loop was examined in its entirety. There is no evidence of any papillary or suspicious changes. Scope removed and the patient tolerated the procedure well. Condition: stable Disposition: same day Specimens:: None Complications:: None
[2022-05-29 10:58] LABS: POC Glucose,Bedside 266 (70-110)
== END 2021-11-22 11:30 | disposition home or self-care (01) ==
LOC: OUTP 09:51
PROVIDERS: PCP Internal Medicine; Visit Provider Urology
PROC: (CPT 50951; principal; 2021-11-22 10:30)
DX: N31.9 Neuromuscular dysfunction of bladder, unspecified (principal); E11.9 Type 2 diabetes mellitus without complications; I10 Essential (primary) hypertension; D64.9 Anemia, unspecified; M19.90 Unspecified osteoarthritis, unspecified site; Z79.899 Other long term (current) drug therapy; Z79.84 Long term (current) use of oral hypoglycemic drugs
CPT/HCPCS: 50951; 82962

== ENCOUNTER → 2022-01-01 06:15 | Outpatient (CLI) | payer OTHER, SELFPAY ==
[2022-01-01 07:19] LABS: Basophils # 0.1 K/mm3 (0-0.2); Basophils % 1.3 % (0.1-2.0); Eosinophils # 0.1 K/mm3 (0.0-0.4); Eosinophils % 1.7 % (0.1-12.0); Hematocrit 32.5 % (37.0-47.0); Lymphocytes % 19.1 % (10-50); Mean Corpuscular HGB Conc 33.9 g/dL (31.8-35.4); Mean Corpuscular Hemoglobin 29.6 pg (27.0-31.2); Mean Corpuscular Volume 87.2 fl (81-99); Mean Platelet Volume 9.4 fl (7.4-10.4); Monocytes # 0.3 K/mm3 (0.1-1.0); Monocytes % 5.4 % (1.7-9.3); Neutrophils # 3.8 K/mm3 (1.8-7.8); Neutrophils % 72.4 % (37.0-80.0); Platelet Count 187 K/mm3 (142-424); Red Blood Count 3.73 M/mm3 (4.20-5.40); Red Cell Distribution Width 15.2 % (11.5-17.5); White Blood Count 5.3 K/mm3 (4.8-10.8)
[2022-01-01 08:20] LABS: Alanine Aminotransferase 24 U/L (12-78); Albumin Level 3.9 g/dl (3.5-5.0); Albumin/Globulin Ratio 1.4 (1.1-1.8); Alkaline Phosphatase 43 U/L (38-126); Anion Gap 14.1 mEq/L (5-15); Aspartate Amino Transferase 23 U/L (14-36); Bilirubin,Total 0.6 mg/dl (0.2-1.3); Blood Urea Nitrogen 42 mg/dl (7-17); Calcium 8.9 mg/dl (8.4-10.2); Carbon Dioxide 30 mmol/L (22.0-30.0); Chloride 99 mmol/L (98-107); Chol/HDL Ratio 4.6 (1-3.5); Cholesterol 134 mg/dl (140-200); Estimated Glomerular Filt Rate 38 ml/min (>60); GFR (African American) 46 ML/MIN (>60); Globulin 2.8 g/dL (1.3-3.2); Glucose 238 mg/dl (74-100); HDL Cholesterol 29 mg/dl (40-60); Potassium 4.1 mmoL/L (3.5-5.1); Sodium 139 mmol/L (136-145); Total Protein,Serum 6.7 g/dl (6.3-8.2); Triglycerides 224 mg/dl (30-150); VLDL Cholesterol 45 mg/dL (0-40)
[2022-01-01 08:31] LABS: Direct LDL Cholesterol 51.36 mg/dL (100-129)
[2022-01-01 13:11] LABS: Hemoglobin A1C 6.6 % (4.0-6.0)
== END ==
PROVIDERS: Visit Provider Internal Medicine
DX: I10 Essential (primary) hypertension (principal); E78.5 Hyperlipidemia, unspecified; E11.21 Type 2 diabetes mellitus with diabetic nephropathy; D64.9 Anemia, unspecified; K76.0 Fatty (change of) liver, not elsewhere classified; G82.21 Paraplegia, complete; Z79.84 Long term (current) use of oral hypoglycemic drugs
CPT/HCPCS: 36415; 80053; 80061; 83036; 85025

== ENCOUNTER → 2022-01-31 06:39 | Outpatient (CLI) | payer OTHER, SELFPAY ==
[2022-01-31 08:10] LABS: Basophils # 0.2 K/mm3 (0-0.2); Basophils % 4.3 % (0.1-2.0); Eosinophils # 0.2 K/mm3 (0.0-0.4); Eosinophils % 3.3 % (0.1-12.0); Hematocrit 34.4 % (37.0-47.0); Mean Corpuscular Hemoglobin 28.8 pg (27.0-31.2); Mean Corpuscular Volume 89.8 fl (81-99); Monocytes # 0.2 K/mm3 (0.1-1.0); Monocytes % 5.3 % (1.7-9.3); Neutrophils # 3.1 K/mm3 (1.8-7.8); Neutrophils % 68.5 % (37.0-80.0); Platelet Count 168 K/mm3 (142-424); Red Blood Count 3.83 M/mm3 (4.20-5.40); Red Cell Distribution Width 14.8 % (11.5-17.5); White Blood Count 4.5 K/mm3 (4.8-10.8)
[2022-01-31 08:26] LABS: Chloride 104 mmol/L (98-107); Sodium 139 mmol/L (136-145)
[2022-01-31 08:29] LABS: Alanine Aminotransferase 26 U/L (12-78); Albumin Level 3.9 g/dl (3.5-5.0); Albumin/Globulin Ratio 1.4 (1.1-1.8); Alkaline Phosphatase 50 U/L (38-126); Aspartate Amino Transferase 25 U/L (14-36); Bilirubin,Total 0.6 mg/dl (0.2-1.3); Blood Urea Nitrogen 37 mg/dl (7-17); Calcium 8.9 mg/dl (8.4-10.2); Carbon Dioxide 23 mmol/L (22.0-30.0); Cholesterol 136 mg/dl (140-200); Estimated Glomerular Filt Rate 42 ml/min (>60); GFR (African American) 50 ML/MIN (>60); Globulin 2.8 g/dL (1.3-3.2); Glucose 280 mg/dl (74-100); HDL Cholesterol 28 mg/dl (40-60); Total Protein,Serum 6.7 g/dl (6.3-8.2); Triglycerides 275 mg/dl (30-150); VLDL Cholesterol 55 mg/dL (0-40)
[2022-01-31 08:30] LABS: Chol/HDL Ratio 4.9 (1-3.5)
[2022-01-31 08:41] LABS: Direct LDL Cholesterol 50.88 mg/dL (100-129)
[2022-01-31 08:49] LABS: Hemoglobin A1C 7.1 % (4.0-6.0)
== END ==
PROVIDERS: PCP Internal Medicine; Visit Provider Internal Medicine
DX: E11.21 Type 2 diabetes mellitus with diabetic nephropathy (principal); I10 Essential (primary) hypertension; E78.5 Hyperlipidemia, unspecified; N18.30 Chronic kidney disease, stage 3 unspecified; Z79.84 Long term (current) use of oral hypoglycemic drugs
CPT/HCPCS: 36415; 80053; 80061; 83036; 85025

== ENCOUNTER 2022-02-17 14:57 | Inpatient (IN) | payer OTHER, SELFPAY ==
[2022-02-17] VITALS (8 sets, daily range): BP systolic 114–152; BP diastolic 48–66; PULSE 57–68; RESP 16–18; TEMP 37–38.3; O2SAT 95–97; BMI 33.9; BMI 28.8
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
[2022-02-17 16:06] LABS: Coronavirus 19, PCR Not Detected (NotDetected); Influenza A, PCR Not Detected (NotDetected); Influenza B, PCR Not Detected (NotDetected)
[2022-02-17 16:19] LABS: Basophils # 0.1 K/mm3 (0-0.2); Basophils % 0.6 % (0.1-2.0); Eosinophils # 0.1 K/mm3 (0.0-0.4); Eosinophils % 0.5 % (0.1-12.0); Hematocrit 33.4 % (37.0-47.0); Hemoglobin 11.2 g/dL (12.2-16.2); Lymphocytes # 0.8 K/mm3 (0.7-4.5); Lymphocytes % 6.9 % (10-50); Mean Corpuscular HGB Conc 33.4 g/dL (31.8-35.4); Mean Corpuscular Hemoglobin 28.8 pg (27.0-31.2); Mean Corpuscular Volume 86.1 fl (81-99); Mean Platelet Volume 8.7 fl (7.4-10.4); Monocytes # 0.6 K/mm3 (0.1-1.0); Monocytes % 5.1 % (1.7-9.3); Neutrophils # 10.5 K/mm3 (1.8-7.8); Platelet Count 252 K/mm3 (142-424); Red Blood Count 3.88 M/mm3 (4.20-5.40); Red Cell Distribution Width 14.2 % (11.5-17.5); White Blood Count 12.1 K/mm3 (4.8-10.8)
[2022-02-17 16:21] LABS: Chloride 102 mmol/L (98-107); Sodium 134 mmol/L (136-145)
[2022-02-17 16:23] LABS: Blood Urea Nitrogen 50 mg/dl (7-17); Lactic Acid 1.3 mmol/L (0.7-2.1)
[2022-02-17 16:24] LABS: Alanine Aminotransferase 19 U/L (12-78); Albumin Level 4.2 g/dl (3.5-5.0); Albumin/Globulin Ratio 1.1 (1.1-1.8); Alkaline Phosphatase 55 U/L (38-126); Aspartate Amino Transferase 20 U/L (14-36); Bilirubin,Total 0.5 mg/dl (0.2-1.3); Carbon Dioxide 21 mmol/L (22.0-30.0); Creatinine Clearance Estimated 42 mL/min (50-200); Estimated Glomerular Filt Rate 24 ml/min (>60); GFR (African American) 29 ML/MIN (>60); Globulin 3.7 g/dL (1.3-3.2); Glucose 245 mg/dl (74-100); Lipase 334 U/L (23-300); Total Protein,Serum 7.9 g/dl (6.3-8.2)
[2022-02-17 16:27] LABS: MANUAL DIFFERENTIAL MANUAL DIFFERENTIAL (MANUAL DIFF)
[2022-02-17 16:37] LABS: Troponin I < 0.01 ng/ml (0.00-0.034)
[2022-02-17 16:57] LABS: Lymphocytes % 10 % (10-50); Monocytes % 2 % (2-9); Neutrophils % 88 % (42-76); Nucleated Red Blood Cells 1; Total Cells Counted 100
[2022-02-17 16:58] LABS: Platelet Estimate Normal
--- NOTE | 2022-02-17 17:10 | HMH.EDGENADL ---
ED Disposition Clinical Impression: Cellulitis of sacral region, Decubitus ulcer of sacral region, stage 2 Community acquired pneumonia Qualifiers: Laterality: right Lung location: lower lobe of lung Qualified Code(s): J18.9 - Pneumonia, unspecified organism Disposition: Admitted As Inpatient Condition on Discharge: Fair Referrals: Reji Cabello MD [Primary Care Provider] - - Critical Care Critical Care Time: No Attestation: On 02/17/22, the high probability of a clinically significant, sudden or life threatening deterioration of the following system(s) required my full and direct attention, intervention and personal management. The time I documented below is in addition to time spent performing reported procedures but includes the following listed in this critical care notation. Medical Decision Making - Medical Records Medical records reviewed: Yes: I reviewed the patient's medical records. - Sagar Inquiry Pt receiving controlled substance: No Vital Signs: 02/17/22 14:59 Temperature 100.9 F H Temperature Source Oral Pulse Rate [Left Radial] 65 Respiratory Rate 18 Blood Pressure [Right Arm] 141/66 H Blood Pressure Mean [Right Arm] 91 Blood Pressure Source [Right Arm] Automatic Cuff Blood Pressure Position [Right Arm] Sitting 02 Sat by Pulse Oximetry 97 Oxygen Delivery Method Room Air - Lab Data Lab Results 02/17/22 15:45: WBC 12.1 H, RBC 3.88 L, Hgb 11.2 L, Hct 33.4 L, MCV 86.1, MCH 28.8, MCHC 33.4, RDW 14.2, Plt Count 252, MPV 8.7, Neut % (Auto) 87.0 H, Lymph % (Auto) 6.9 L, [place] % (Auto) 5.1, Eos % (Auto) 0.5, Baso % (Auto) 0.6, Neut # (Auto) 10.5 H, Lymph # (Auto) 0.8, [place] # (Auto) 0.6, Eos # (Auto) 0.1, Baso # (Auto) 0.1, Total Counted 100, Neutrophils % (Manual) 88 H, Lymphocytes % (Manual) 10, Monocytes % (Manual) 2, Nucleated RBCs 1, Platelet Estimate Normal 02/17/22 15:45: Sodium 134 L, Potassium 4.0, Chloride 102, Carbon Dioxide 21 L, Anion Gap 15.0, BUN 50 H, Creatinine 2.10 H, Estimated Creat Clear 42, Estimated GFR 24 L, Est GFR ( Amer) 29 L, Glucose 245 H, Calcium 9.0, Total Bilirubin 0.5, AST 20, ALT 19, Alkaline Phosphatase 55, Troponin I < 0.01, Total Protein 7.9, Albumin 4.2, Globulin 3.7 H, Albumin/Globulin Ratio 1.1, Lipase 334 H 02/17/22 15:45: Lactate 1.3 02/17/22 15:45: SARS-CoV-2 (PCR) Not detected, Influenza A Untype (PCR) Not detected, Influenza Type B (PCR) Not detected Result diagrams: 02/17/22 15:45 02/17/22 15:45 Orders (Tests/Meds): ED MEDICATIONS Generic Name Dose Route Start Last Admin Trade Name Freq PRN Reason Stop Dose Admin Cefepime HCl 2 gm/ Sodium 100 mls @ 200 mls/hr 02/17/22 17:59 Chloride IV 02/17/22 18:28 ONCE ONE Miscellaneous 1 each 02/17/22 18:00 Vancomycin Consult Request * 03/19/22 17:59 CONSULT [facility]Y [facility] Discontinued Medications Generic Name Dose Route Start Last Admin Trade Name Freq PRN Reason Stop Dose Admin Acetaminophen 1,000 mg 02/17/22 15:11 02/17/22 16:04 Acetaminophen 500mg Tab PO 02/17/22 15:12 1,000 mg ONCE ONE Administration Sodium Chloride 1,000 mls @ 999 mls/hr 02/17/22 15:15 02/17/22 16:04 Sod Chlor 0.9% 1000ml Bag IV 02/17/22 16:15 999 mls/hr .Q1H1M [facility] Administration ORDERS Category Date Time Status Troponin I Q3H Lab 02/17/22 18:15 Ordered Troponin I Q3H Lab 02/17/22 21:15 Ordered Urinalysis and Microscopic Stat Lab 02/17/22 15:11 Ordered Blood Culture Stat Micro 02/17/22 15:48 Received - Radiology Data #1 Image(s): Chest Image Reviewed: Yes I reviewed the patient's radiology results, Yes I reviewed the patient's radiology image, Yes I have reviewed radiologist's interpretation IMPRESSION: Bibasilar atelectasis or pneumonia. - Reevaluation(s) Time: 18:02 Reevaluation #1: Patient does have findings of pneumonia as well as cellulitis from her sacral decubitus ulcers. Patient was started on broad-spectrum antibiotics. Patient be
--- NOTE | 2022-02-17 18:34 | HMH.PHAVTE ---
[facility] Pharmacy VTE Monitoring - Patient Demographics Admission date: 02/17/22 Report Date: 02/17/22 Time: 18:34 Allergies/Adverse Reactions: Patient Allergies No Known Allergies Allergy (Verified 11/20/21 12:09) Height: 1.68 m Weight: 95.254 kg Patient Problems: Current Active Problems Community acquired pneumonia (Acute) Cellulitis of sacral region (Acute) Decubitus ulcer of sacral region, stage 2 (Acute) - VTE Risk Labs: VTE Related Lab Results Hgb 11.2 g/dL (12.2-16.2) L 02/17/22 15:45 Hct 33.4 % (37.0-47.0) L 02/17/22 15:45 Plt Count 252 K/mm3 (142-424) 02/17/22 15:45 BUN 50 mg/dl (7-17) H 02/17/22 15:45 Creatinine 2.10 mg/dl (0.52-1.04) H 02/17/22 15:45 Estimated Creat Clear 42 mL/min (50-200) 02/17/22 15:45 Clinical Trial Participant: No - Prophylaxis VTE Prophylaxis Ordered?: Yes Types of VTE Prophylaxis: TEDS Knee High
--- NOTE | 2022-02-17 18:49 | PC.NURSE ---
attempted to call report, dayshift is not available to take report, waiting on night shift supervisor nurse to get report on pt
--- NOTE | 2022-02-17 18:54 | PC.NURSE ---
pt eating at this time
--- NOTE | 2022-02-17 18:56 | PC.NURSE ---
attempted to get recport from A Gaston at [phone] per phone records. RN involved in care in another room. advised A Gaston to call back when ready for report.
[2022-02-17 22:43] LABS: POC Glucose,Bedside 350 (70-110)
[2022-02-18] VITALS (7 sets, daily range): BP systolic 93–128; BP diastolic 46–64; PULSE 64–78; RESP 16–22; TEMP 37.2–38.5; O2SAT 93–96
--- NOTE | 2022-02-18 02:53 | PC.WOUNDNOTE ---
unstageable to left buttocks area, redness noted around wound
[2022-02-18 03:03] LABS: Microscopic, Urine URINE MICROSCOPIC (MICROSCOPIC)
[2022-02-18 03:06] LABS: Appearance,Urine CLEAR (Clear); Bilirubin,Urine Negative (Negative); Blood, Urine TRACE-I (Negative); Color,Urine YELLOW (Yellow); Glucose,Urine (UA) 3+ (Negative); Ketones,Urine Negative (Negative); Leukocyte Esterase,Urine Negative (Negative); Nitrate,Urine Negative (Negative); Protein,Urine 1+ (Negative); Specific Gravity, Urine 1.015 (1.005-1.030); Urobilinogen,Urine 0.2 EU/dl (0.2)
[2022-02-18 03:43] LABS: Bacteria,Urine 1+ /lpf
--- NOTE | 2022-02-18 04:54 | PC.NURSE ---
pt A&Ox4, paraplegic, has remained on room air with O2 sats 95%, temperature has been 98.6-100.0, has not complained of pain, pt does have a pressure area on left side, picture on chart
[2022-02-18 05:55] LABS: POC Glucose,Bedside 227 (70-110)
[2022-02-18 06:20] LABS: Basophils % 0.4 % (0.1-2.0); Eosinophils % 0.4 % (0.1-12.0); Hematocrit 30.5 % (37.0-47.0); Hemoglobin 10.3 g/dL (12.2-16.2); Lymphocytes # 0.9 K/mm3 (0.7-4.5); Lymphocytes % 8.3 % (10-50); Mean Corpuscular Hemoglobin 29.8 pg (27.0-31.2); Mean Corpuscular Volume 87.8 fl (81-99); Mean Platelet Volume 8.6 fl (7.4-10.4); Monocytes # 0.6 K/mm3 (0.1-1.0); Monocytes % 5.1 % (1.7-9.3); Neutrophils # 9.7 K/mm3 (1.8-7.8); Neutrophils % 85.8 % (37.0-80.0); Platelet Count 237 K/mm3 (142-424); Red Blood Count 3.47 M/mm3 (4.20-5.40); Red Cell Distribution Width 14.2 % (11.5-17.5); White Blood Count 11.3 K/mm3 (4.8-10.8)
[2022-02-18 06:21] LABS: MANUAL DIFFERENTIAL MANUAL DIFFERENTIAL (MANUAL DIFF)
[2022-02-18 06:29] LABS: Chloride 108 mmol/L (98-107); Potassium 3.6 mmoL/L (3.5-5.1); Sodium 137 mmol/L (136-145)
[2022-02-18 06:31] LABS: Blood Urea Nitrogen 45 mg/dl (7-17); Creatinine Clearance Estimated 40 mL/min (50-200); Estimated Glomerular Filt Rate 27 ml/min (>60); GFR (African American) 33 ML/MIN (>60)
[2022-02-18 06:32] LABS: Anion Gap 15.6 mEq/L (5-15); Calcium 8.1 mg/dl (8.4-10.2); Carbon Dioxide 17 mmol/L (22.0-30.0); Glucose 223 mg/dl (74-100)
--- NOTE | 2022-02-18 07:27 | HMH.PHAINT ---
MEDICATION RECONCILIATION COMPLETED ON PATIENT USING EXTERNAL FILL HISTORY FROM PHARMACY. -CARLI SCHULZ, DALJITD
[2022-02-18 07:32] LABS: Eosinophils % 1 % (0-3); Lymphocytes % 6 % (10-50); Monocytes % 3 % (2-9); Neutrophils % 90 % (42-76); Platelet Estimate Normal; RBC Morphology Normal; Total Cells Counted 100
--- NOTE | 2022-02-18 08:48 | HMH.HP ---
*Admission Date: 02/17/22 *Chief complaint: Fever and chills *History of present illness: 61-year-old female patient presented to the [facility] emergency department with reports of fever, chills, nonproductive cough for 2 to 3 days. She denies any shortness of breath or chest pain. She also reports a sore on left buttock that she just noticed last night. She does have a history of lesions since the age of 8 and reports she sets up in her wheelchair most of the day. Chest x-ray reveals Bilateral lower lobe pneumonia Severe sepsis with organ dysfunction: Temperature 100.9, white blood cell count 12.1, bilateral lower lobe pneumonia per chest x-ray, creatinine 2.[address] Cabello [facility] History I have reviewed the patient's past medical history: Yes Medical History: Reports:: Diabetes Mellitus Type 2, Hyperlipidemia, Hypertension, Renal Disease Denies:: Cancer, Diabetes Mellitus Type 1, Internal Pacemaker, MRSA, Seizures *Have you ever received a pneumonia vaccine?: Yes *Have you received a flu vaccine this season?: Yes Other Surgeries: Yes: No Previous Surgery, Colonoscopy, Colostomy, , Hysterectomy-Total. No: Pacemaker Amputation: No Fractures: No - *Social History Smoking Status: Never smoker Alcohol Intake: never Substance Use Type: denies use *Occupational Status:: disabled Housing: apartment Household Members: none *Travel in the last 8 weeks: None Family Hx:: No significant family history Review of Systems - Review of Systems Review of systems:: pertinent systems reviewed and negative unless documented below - Constitutional Denies chills, Denies fever(s) - Eyes Denies blurry vision, Denies double vision - ENT Denies dizziness, Denies difficulty swallowing - *Cardiovascular Denies chest pain, Denies chest pain at rest - *Respiratory Reports cough, Reports shortness of breath, Denies change in phlegm color - *Neurologic Denies headache(s) Meds Home Medications Medication Instructions Recorded Confirmed Type ferrous sulfate 325 mg (65 mg 325 mg PO BID tab 07/13/18 02/18/22 History iron) tablet [place]-3 Fatty Acids/Fish Oil [Fish 1 each PO QID 11/01/20 02/18/22 History Oil 1,000 mg Capsule] Alendronate Sodium 70 mg PO WEEKLY 02/18/22 02/18/22 History Bisoprolol Fumarate [Bisoprolol 5 mg PO DAILY 02/18/22 02/18/22 History 5mg Tablet] Dapagliflozin Propanediol [Farxiga] 10 mg PO DAILY 02/18/22 02/18/22 History Furosemide [Furosemide 40MG tAB*] 40 mg PO DAILY 02/18/22 02/18/22 History Metformin HCl 1,000 mg PO BIDWMEAL 02/18/22 02/18/22 History Pravastatin Sodium [Pravachol 40mg 40 mg PO DAILY 02/18/22 02/18/22 History Tablet] lisinopriL [Zestril 40mg Tablet] 40 mg PO DAILY 02/18/22 02/18/22 History Allergies Allergy/AdvReac Type Severity Reaction Status Date / Time No Known Allergies Allergy Verified 02/17/22 23:04 Exam Vital signs and Labs for Last 24 Hours: Temp Pulse Resp BP Pulse Ox 99.0 F 64 16 93/46 L 95 02/18/22 08:00 02/18/22 08:00 02/18/22 08:00 02/18/22 08:00 02/18/22 08:00 Laboratory Results - last 24 hr 02/17/22 15:45: WBC 12.1 H, RBC 3.88 L, Hgb 11.2 L, Hct 33.4 L, MCV 86.1, MCH 28.8, MCHC 33.4, RDW 14.2, Plt Count 252, MPV 8.7, Neut % (Auto) 87.0 H, Lymph % (Auto) 6.9 L, [place] % (Auto) 5.1, Eos % (Auto) 0.5, Baso % (Auto) 0.6, Neut # (Auto) 10.5 H, Lymph # (Auto) 0.8, [place] # (Auto) 0.6, Eos # (Auto) 0.1, Baso # (Auto) 0.1, Total Counted 100, Neutrophils % (Manual) 88 H, Lymphocytes % (Manual) 10, Monocytes % (Manual) 2, Nucleated RBCs 1, Platelet Estimate Normal 02/17/22 15:45: Sodium 134 L, Potassium 4.0, Chloride 102, Carbon Dioxide 21 L, Anion Gap 15.0, BUN 50 H, Creatinine 2.10 H, Estimated Creat Clear 42, Estimated GFR 24 L, Est GFR ( Amer) 29 L, Glucose 245 H, Calcium 9.0, Total Bilirubin 0.5, AST 20, ALT 19, Alkaline Phosphatase 55, Troponin I < 0.01, Total Protein 7.9, Albumin 4.2, Globulin 3.7 H, A
--- NOTE | 2022-02-18 09:05 | HMH.PHACONS ---
- Pharmacy Consult Date: 02/18/22 Time: 09:05 Referring provider: DR. MORRISON Reason for Consult:: VANCOMYCIN DOSING Allergies and ADEs:: Allergies Allergy/AdvReac Type Severity Reaction Status Date / Time No Known Allergies Allergy Verified 02/17/22 23:04 Home Medications:: Home Medications Medication Instructions Recorded Confirmed Type ferrous sulfate 325 mg (65 mg 325 mg PO BID tab 07/13/18 02/18/22 History iron) tablet [place]-3 Fatty Acids/Fish Oil [Fish 1 each PO QID 11/01/20 02/18/22 History Oil 1,000 mg Capsule] Alendronate Sodium 70 mg PO WEEKLY 02/18/22 02/18/22 History Bisoprolol Fumarate [Bisoprolol 5 mg PO DAILY 02/18/22 02/18/22 History 5mg Tablet] Dapagliflozin Propanediol [Farxiga] 10 mg PO DAILY 02/18/22 02/18/22 History Furosemide [Furosemide 40MG tAB*] 40 mg PO DAILY 02/18/22 02/18/22 History Metformin HCl 1,000 mg PO BIDWMEAL 02/18/22 02/18/22 History Pravastatin Sodium [Pravachol 40mg 40 mg PO DAILY 02/18/22 02/18/22 History Tablet] lisinopriL [Zestril 40mg Tablet] 40 mg PO DAILY 02/18/22 02/18/22 History Height: 1.68 m Weight: 81.284 kg Laboratory Results:: Laboratory Results - last 24 hr 02/17/22 15:45: WBC 12.1 H, RBC 3.88 L, Hgb 11.2 L, Hct 33.4 L, MCV 86.1, MCH 28.8, MCHC 33.4, RDW 14.2, Plt Count 252, MPV 8.7, Neut % (Auto) 87.0 H, Lymph % (Auto) 6.9 L, [place] % (Auto) 5.1, Eos % (Auto) 0.5, Baso % (Auto) 0.6, Neut # (Auto) 10.5 H, Lymph # (Auto) 0.8, [place] # (Auto) 0.6, Eos # (Auto) 0.1, Baso # (Auto) 0.1, Total Counted 100, Neutrophils % (Manual) 88 H, Lymphocytes % (Manual) 10, Monocytes % (Manual) 2, Nucleated RBCs 1, Platelet Estimate Normal 02/17/22 15:45: Sodium 134 L, Potassium 4.0, Chloride 102, Carbon Dioxide 21 L, Anion Gap 15.0, BUN 50 H, Creatinine 2.10 H, Estimated Creat Clear 42, Estimated GFR 24 L, Est GFR ( Amer) 29 L, Glucose 245 H, Calcium 9.0, Total Bilirubin 0.5, AST 20, ALT 19, Alkaline Phosphatase 55, Troponin I < 0.01, Total Protein 7.9, Albumin 4.2, Globulin 3.7 H, Albumin/Globulin Ratio 1.1, Lipase 334 H 02/17/22 15:45: Lactate 1.3 02/17/22 15:45: SARS-CoV-2 (PCR) Not detected, Influenza A Untype (PCR) Not detected, Influenza Type B (PCR) Not detected 02/17/22 21:38: POC Glucose 350 H* 02/18/22 02:55: Urine Color Yellow, Urine Appearance Clear, Urine pH 6.0, Ur Specific [place] 1.015, Urine Protein 1+, Urine Glucose (UA) 3+, Urine Ketones Negative, Urine Blood Trace-i, Urine Nitrate Negative, Urine Bilirubin Negative, Urine Urobilinogen 0.2, Ur Leukocyte Esterase Negative, Urine RBC 5-10, Urine WBC 3-5, Ur Squamous Epith Cells 3-5, Urine Bacteria 1+ 02/18/22 05:31: POC Glucose 227 H 02/18/22 05:48: WBC 11.3 H, RBC 3.47 L, Hgb 10.3 L, Hct 30.5 L, MCV 87.8, MCH 29.8, MCHC 34.0, RDW 14.2, Plt Count 237, MPV 8.6, Neut % (Auto) 85.8 H, Lymph % (Auto) 8.3 L, [place] % (Auto) 5.1, Eos % (Auto) 0.4, Baso % (Auto) 0.4, Neut # (Auto) 9.7 H, Lymph # (Auto) 0.9, [place] # (Auto) 0.6, Eos # (Auto) 0.0, Baso # (Auto) 0.0, Total Counted 100, Neutrophils % (Manual) 90 H, Lymphocytes % (Manual) 6 L, Monocytes % (Manual) 3, Eosinophils % (Manual) 1, Platelet Estimate Normal, RBC Morphology Normal 02/18/22 05:48: Sodium 137, Potassium 3.6, Chloride 108 H, Carbon Dioxide 17 L, Anion Gap 15.6 H, BUN 45 H, Creatinine 1.90 H, Estimated Creat Clear 40, Estimated GFR 27 L, Est GFR ( Amer) 33 L, Glucose 223 H, Calcium 8.1 L Medical History: Reports:: Diabetes Mellitus Type 2, Hyperlipidemia, Hypertension, Renal Disease Denies:: Cancer, Diabetes Mellitus Type 1, Internal Pacemaker, MRSA, Seizures Assessment and Plan - Assessment and plan all Dx Assessment and Plan for all problems:: Age: 61 yo Serum creatinine: 1.9 mg/dL Height: 66.1 Inches Weight (kg): 81.3 Assessment: IBW (kg): 59.53 Dosing wt(kg): 81.3 Estimated Creatinine clearance (ml/min): 29.2 CRCL method: Cockcroft and Gault using ibw(default). Drug selected: Vancomycin
--- NOTE | 2022-02-18 10:08 | HMH.PTWOUND ---
Rehab Inpt Wound Evaluation Rehab IP Wound Evaluation Start: 02/18/22 08:00 Freq: ONCE Status: Active Protocol: Document 02/18/22 10:01 MAHI (Rec: 02/18/22 10:08 [facility] [id number]) Rehab PT Wound Assessment Subjective Subjective [address] [facility] with PNA and L buttock Pressure Injury. Pt is paraplegic at baseline and has been since age 8. She lives alone and uses w/c for all mobility. Wound Left Buttock Wound Type Pressure Ulcer Is This a Chronic Wound Yes Wound Staging Unstageable Query Text:Stage I - Unbroken, red skin, no blanching. Stage II - Skin broken, superficial skin loss involving epidermis alone or also dermis. Partial loss of skin layers. Stage III - Pressure area involves epidermis, dermis and subcutaneous tissue, full thickness skin loss. Stage IV - Pressure area involves epidermis, subcutaneous tissue, bone and other supportive tissue. Full thickness skin loss with extensive destruction of underlying tissue and structures. Wound Length (cm) 3.0 Wound Width (cm) 4.7 Wound Bed Appearance Slough,Necrotic Percentage of Slough (%) 100 Wound Margins Description Indistinct Surrounding Tissue Appearance Blanched/Dull Wound Drainage Description Purulent Drainage Amount Small Drainage Odor Foul Odor Primary Dressing Gauze Pad Comment betadine Wound Secondary Dressing Type Composite Comment optifoam gentle border Wound Debridement Method Sharps,Gauze Wound Debridement Amount of Tissue Minimal Removed Wound Debridement Result Necrotic Tissue Remains Dressing Change Patient Tolerance Tolerated Well Plan/Recommendation Comment Pt will most likely need further surgical debridement due to amts of necrotic tissue in the wound and her prior co -morbidities. If no surgical debridement, will follow for sharp excisional debridement at bedside PRN Eval Complexity Eval Charge Codes 91390 - Moderate Complexity PHYSICIAN CERTIFICATION: I certify the specified therapy services for Alyssa Azul are required, authorized, and reviewed ev
--- NOTE | 2022-02-18 10:15 | PC.NURSE ---
RESP CARE NOTE: Sputum induction performed. Pt instructed on obtaining a specimen, and instructed to inform her nurse if one is expectorated. At this time she states she isn't coughing anything up for a specimen.
--- NOTE | 2022-02-18 14:09 | HMH.GSCON ---
*Admission Date: 02/17/22 *Reason for consult:: Pressure ulcer - left buttock *History of present illness: This is a 61-year-old female seen in consultation for service of Dr. Guardado for evaluation regarding left buttock necrotic pressure ulcer. Review of Systems - Constitutional Denies chills - *Cardiovascular Denies chest pain - *Respiratory Denies cough - *Gastrointestinal Denies abdominal pain - Integumentary/Breasts Reports skin ulcer - *Neurologic Denies dizziness, Denies headache(s) [facility] History Medical History: Reports:: Diabetes Mellitus Type 2, Hyperlipidemia, Hypertension, Renal Disease Denies:: Cancer, Diabetes Mellitus Type 1, Internal Pacemaker, MRSA, Seizures *Have you ever received a pneumonia vaccine?: Yes *Have you received a flu vaccine this season?: Yes Other Surgeries: Yes: No Previous Surgery, Colonoscopy, Colostomy, , Hysterectomy-Total. No: Pacemaker Amputation: No Fractures: No - *Social History Smoking Status: Never smoker Alcohol Intake: never Substance Use Type: denies use *Occupational Status:: disabled Housing: apartment Household Members: none *Travel in the last 8 weeks: None Family Hx:: No significant family history Meds Home Medications Medication Instructions Recorded Confirmed Type ferrous sulfate 325 mg (65 mg 325 mg PO BID tab 07/13/18 02/18/22 History iron) tablet [place]-3 Fatty Acids/Fish Oil [Fish 1 each PO QID 11/01/20 02/18/22 History Oil 1,000 mg Capsule] Alendronate Sodium 70 mg PO WEEKLY 02/18/22 02/18/22 History Bisoprolol Fumarate [Bisoprolol 5 mg PO DAILY 02/18/22 02/18/22 History 5mg Tablet] Dapagliflozin Propanediol [Farxiga] 10 mg PO DAILY 02/18/22 02/18/22 History Furosemide [Furosemide 40MG tAB*] 40 mg PO DAILY 02/18/22 02/18/22 History Metformin HCl 1,000 mg PO BIDWMEAL 02/18/22 02/18/22 History Pravastatin Sodium [Pravachol 40mg 40 mg PO DAILY 02/18/22 02/18/22 History Tablet] lisinopriL [Zestril 40mg Tablet] 40 mg PO DAILY 02/18/22 02/18/22 History Allergies Allergy/AdvReac Type Severity Reaction Status Date / Time No Known Allergies Allergy Verified 02/17/22 23:04 Exam Vital signs and Labs for Last 24 Hours: Temp Pulse Resp BP Pulse Ox 99.0 F 77 18 93/46 L 95 02/18/22 08:00 02/18/22 10:01 02/18/22 10:01 02/18/22 08:00 02/18/22 08:00 Laboratory Results - last 24 hr 02/17/22 15:45: WBC 12.1 H, RBC 3.88 L, Hgb 11.2 L, Hct 33.4 L, MCV 86.1, MCH 28.8, MCHC 33.4, RDW 14.2, Plt Count 252, MPV 8.7, Neut % (Auto) 87.0 H, Lymph % (Auto) 6.9 L, [place] % (Auto) 5.1, Eos % (Auto) 0.5, Baso % (Auto) 0.6, Neut # (Auto) 10.5 H, Lymph # (Auto) 0.8, [place] # (Auto) 0.6, Eos # (Auto) 0.1, Baso # (Auto) 0.1, Total Counted 100, Neutrophils % (Manual) 88 H, Lymphocytes % (Manual) 10, Monocytes % (Manual) 2, Nucleated RBCs 1, Platelet Estimate Normal 02/17/22 15:45: Sodium 134 L, Potassium 4.0, Chloride 102, Carbon Dioxide 21 L, Anion Gap 15.0, BUN 50 H, Creatinine 2.10 H, Estimated Creat Clear 42, Estimated GFR 24 L, Est GFR ( Amer) 29 L, Glucose 245 H, Calcium 9.0, Total Bilirubin 0.5, AST 20, ALT 19, Alkaline Phosphatase 55, Troponin I < 0.01, Total Protein 7.9, Albumin 4.2, Globulin 3.7 H, Albumin/Globulin Ratio 1.1, Lipase 334 H 02/17/22 15:45: Lactate 1.3 02/17/22 15:45: SARS-CoV-2 (PCR) Not detected, Influenza A Untype (PCR) Not detected, Influenza Type B (PCR) Not detected 02/17/22 21:38: POC Glucose 350 H* 02/18/22 02:55: Urine Color Yellow, Urine Appearance Clear, Urine pH 6.0, Ur Specific [place] 1.015, Urine Protein 1+, Urine Glucose (UA) 3+, Urine Ketones Negative, Urine Blood Trace-i, Urine Nitrate Negative, Urine Bilirubin Negative, Urine Urobilinogen 0.2, Ur Leukocyte Esterase Negative, Urine RBC 5-10, Urine WBC 3-5, Ur Squamous Epith Cells 3-5, Urine Bacteria 1+ 02/18/22 05:31: POC Glucose 227 H 02/18/22 05:48: WBC 11.3 H, RBC 3.47 L, Hgb 10.3 L, Hct 30.5 L, MCV 87.8, MCH 29.8, MCHC 34.0, RDW 14.2, Plt Cou
--- NOTE | 2022-02-18 14:21 | HMH.OPNOTE ---
Date of procedure: 02/18/22 Pre-op Diagnosis:: Left buttock pressure ulceration (5.5 x 5 cm) Post-op Diagnosis:: Same Procedure performed:: Debridement of necrotic left buttock pressure ulceration [at bedside] Surgeon:: Jairon Hill MD Anesthesia: none Estimated blood loss (mL): 5 Operative findings:: Complex (at least stage III) left buttock pressure ulceration with overlying eschar Debridement of eschar and underlying necrotic subcutaneous tissue Operative note:: After informed consent was obtained patient was transferred to the right lateral decubitus position. A combination of scalpel and scissors were utilized to debride the overlying eschar. Sharp dissection through necrotic subcutaneous tissue was completed. Some marginal necrosis was noted; however, the decision was made to forego further debridement (pack the wound and proceed with close ongoing observation). Once gauze packing was in place, the entire region was infiltrated with 1% lidocaine. Dressings were applied and the patient was transferred back to the supine position. She tolerated the procedure well. Condition: stable Disposition: no change Complications:: No immediate
--- NOTE | 2022-02-18 14:22 | PC.NURSE ---
Dr. Hill debrided left buttock wound at the bedside. No issues noted. Dry 4x4 gauze, ABD pad, and TP tape used. Egg crate mattress topper placed on top of mattress. Pt is able to turn and reposition herself.
--- NOTE | 2022-02-18 17:34 | PC.WOUNDNOTE ---
left buttock pressure ulcer post debridement today by Dr. Hill (3.5cm wide x 5cm long)
[2022-02-18 18:10] LABS: POC Glucose,Bedside 269 (70-110)
[2022-02-18 18:10] LABS: POC Glucose,Bedside 273 (70-110)
--- NOTE | 2022-02-18 18:26 | PC.NURSE ---
shift summary: pt has done well this shift. GCS 15. Not on tele. On RA. Urostomy in place. Bag changed once this shift. Left buttock pressure ulcer debrided by Dr. Hill. Dressing consists of 1 dry 4x4 gauze covered with a folded ABD and then TP tape. Wound bed is necroctic with slough and a strong foul odor. Pt has no feeling from waist down. Bilateral foot drop noted. No BM. NS infusing @ 75mL/hr.
[2022-02-19] VITALS (7 sets, daily range): BP systolic 116–149; BP diastolic 52–71; PULSE 69–89; RESP 14–20; TEMP 37–37.9; O2SAT 94–97; BMI 29.7
[2022-02-19 01:09] LABS: POC Glucose,Bedside 282 (70-110)
--- NOTE | 2022-02-19 04:12 | PC.NURSE ---
Pt used home CPAP while sleeping. O2 sat 96-97%. Pt had temp 101.3 @ 2325, pt treated prn per oct, pt temp 0418 is 99.3. Pt has had no complaints this shift. Dressing on left buttock CDI. Pt more withdrawn this shift than previous shift, has rested most of shift.
[2022-02-19 05:39] LABS: POC Glucose,Bedside 197 (70-110)
[2022-02-19 06:20] LABS: Basophils # 0.1 K/mm3 (0-0.2); Basophils % 0.5 % (0.1-2.0); Eosinophils % 0.4 % (0.1-12.0); Hematocrit 29.6 % (37.0-47.0); Hemoglobin 9.9 g/dL (12.2-16.2); Lymphocytes % 9.7 % (10-50); Mean Corpuscular HGB Conc 33.4 g/dL (31.8-35.4); Mean Corpuscular Hemoglobin 29.5 pg (27.0-31.2); Mean Corpuscular Volume 88.4 fl (81-99); Mean Platelet Volume 8.2 fl (7.4-10.4); Monocytes # 0.5 K/mm3 (0.1-1.0); Monocytes % 4.6 % (1.7-9.3); Neutrophils # 9.2 K/mm3 (1.8-7.8); Platelet Count 228 K/mm3 (142-424); Red Blood Count 3.35 M/mm3 (4.20-5.40); Red Cell Distribution Width 14.3 % (11.5-17.5); White Blood Count 10.8 K/mm3 (4.8-10.8)
[2022-02-19 06:21] LABS: Chloride 113 mmol/L (98-107); Potassium 3.5 mmoL/L (3.5-5.1); Sodium 140 mmol/L (136-145)
[2022-02-19 06:22] LABS: MANUAL DIFFERENTIAL MANUAL DIFFERENTIAL (MANUAL DIFF)
[2022-02-19 06:24] LABS: Blood Urea Nitrogen 37 mg/dl (7-17); Creatinine Clearance Estimated 43 mL/min (50-200); Estimated Glomerular Filt Rate 29 ml/min (>60); GFR (African American) 35 ML/MIN (>60)
[2022-02-19 06:25] LABS: Anion Gap 12.5 mEq/L (5-15); Calcium 7.6 mg/dl (8.4-10.2); Carbon Dioxide 18 mmol/L (22.0-30.0); Glucose 208 mg/dl (74-100)
--- NOTE | 2022-02-19 07:21 | HMH.GSPN ---
Subjective Patient reports: no new complaints Progress Note: A&P (1) Severe sepsis with acute organ dysfunction Status: Acute (2) Community acquired pneumonia Status: Acute (3) Cellulitis of sacral region Status: Acute (4) Decubitus ulcer of sacral region, stage 2 Status: Acute (5) Pressure ulcer of left buttock Status: Acute Exam Vital signs and Labs for Last 24 Hours: Temp Pulse Resp BP Pulse Ox 99.3 F 69 20 117/56 L 97 02/19/22 04:00 02/19/22 04:00 02/19/22 04:00 02/19/22 04:00 02/19/22 04:00 Laboratory Results - last 24 hr 02/18/22 05:48: Total Counted 100, Neutrophils % (Manual) 90 H, Lymphocytes % (Manual) 6 L, Monocytes % (Manual) 3, Eosinophils % (Manual) 1, Platelet Estimate Normal, RBC Morphology Normal 02/18/22 11:03: POC Glucose 269 H 02/18/22 16:42: POC Glucose 273 H 02/18/22 20:26: POC Glucose 282 H 02/19/22 05:21: POC Glucose 197 H 02/19/22 05:35: WBC 10.8, RBC 3.35 L, Hgb 9.9 L, Hct 29.6 L, MCV 88.4, MCH 29.5, MCHC 33.4, RDW 14.3, Plt Count 228, MPV 8.2, Neut % (Auto) 85.0 H, Lymph % (Auto) 9.7 L, [place] % (Auto) 4.6, Eos % (Auto) 0.4, Baso % (Auto) 0.5, Neut # (Auto) 9.2 H, Lymph # (Auto) 1.0, [place] # (Auto) 0.5, Eos # (Auto) 0.0, Baso # (Auto) 0.1 02/19/22 05:35: Sodium 140, Potassium 3.5, Chloride 113 H, Carbon Dioxide 18 L, Anion Gap 12.5, BUN 37 H, Creatinine 1.80 H, Estimated Creat Clear 43, Estimated GFR 29 L, Est GFR ( Amer) 35 L, Glucose 208 H, Calcium 7.6 L I & O for Last 24 hours: Intake & Output 02/16/22 02/17/22 02/18/2222 11:59 11:59 11:59 11:59 Intake Total 994 / 994 1801 / 1801 Output Total 700 / 700 1925 / 1925 Balance 294 / 294 -124 / -124 Weight 179 lb 3.2 oz 184 lb 12.8 oz - Constitutional no acute distress - *Routine Respiratory Exam Absent: respiratory distress - *Routine Cardiovascular Exam Absent: tachycardia - *Routine Skin Exam Comments: Left buttock wound with base and marginal necrosis. No spreading cellulitis. Continue dry dressing changes for now Continue pressure-relief Will likely require additional debridement (pending results with dressing changes)
[2022-02-19 08:49] LABS: Lymphocytes % 8 % (10-50); Monocytes % 4 % (2-9); Neutrophils % 88 % (42-76); Platelet Estimate Normal; RBC Morphology Normal; Total Cells Counted 100
--- NOTE | 2022-02-19 09:53 | HMH.ACPN2 ---
Internal Medicine - PN: Subj *Date: 02/19/22 *Time: 13:28 Interval history: 61-year-old female patient sitting up in bed resting quietly, she denies any concerns/needs at present. Neurosurgery was seen and debrided right sacral wound dressing to area clean/dry/intact. Discussed with patient possible stay in rehab upon discharge. Thank that Exam Vital signs and Labs for Last 24 Hours: Temp Pulse Resp BP Pulse Ox 98.7 F 79 15 149/71 H 95 02/19/22 08:00 02/19/22 08:00 02/19/22 08:00 02/19/22 08:00 02/19/22 08:00 Laboratory Results - last 24 hr 02/18/22 11:03: POC Glucose 269 H 02/18/22 16:42: POC Glucose 273 H 02/18/22 20:26: POC Glucose 282 H 02/19/22 05:21: POC Glucose 197 H 02/19/22 05:35: WBC 10.8, RBC 3.35 L, Hgb 9.9 L, Hct 29.6 L, MCV 88.4, MCH 29.5, MCHC 33.4, RDW 14.3, Plt Count 228, MPV 8.2, Neut % (Auto) 85.0 H, Lymph % (Auto) 9.7 L, [place] % (Auto) 4.6, Eos % (Auto) 0.4, Baso % (Auto) 0.5, Neut # (Auto) 9.2 H, Lymph # (Auto) 1.0, [place] # (Auto) 0.5, Eos # (Auto) 0.0, Baso # (Auto) 0.1, Total Counted 100, Neutrophils % (Manual) 88 H, Lymphocytes % (Manual) 8 L, Monocytes % (Manual) 4, Platelet Estimate Normal, RBC Morphology Normal 02/19/22 05:35: Sodium 140, Potassium 3.5, Chloride 113 H, Carbon Dioxide 18 L, Anion Gap 12.5, BUN 37 H, Creatinine 1.80 H, Estimated Creat Clear 43, Estimated GFR 29 L, Est GFR ( Amer) 35 L, Glucose 208 H, Calcium 7.6 L I & O for Last 24 hours: Intake & Output 06/19/22 06/20/22 06/21/22 06/22/22 23:59 23:59 23:59 23:59 Intake Total 1938 / 1938 1096 / 1096 Output Total 1174 / 2024 1450 / 1450 Balance 764 / -86 -354 / -354 Weight 179 lb 3.2 oz 184 lb 12.8 oz - Constitutional no acute distress - *Routine HEENT Exam Head: Present: normocephalic Eye: Present: EOMI ENT: Present: mucous membranes moist - *Routine Neck Exam Present: trachea midline. Absent: tracheal deviation - *Routine Respiratory Exam Present: CTA bilaterally. Absent: accessory muscle use - *Routine Cardiovascular Exam Present: RRR - *Routine Abdominal Exam Present: soft, normoactive bowel sounds. Absent: tenderness, firm - *Routine Extremities Exam Present: edema, full ROM, pulses intact. Absent: cyanosis, clubbing - *Routine Skin Exam Present: erythema, dry, wounds. Absent: intact, cyanosis Comments: Left sacral wound with dressing clean/dry/intact - *Routine Neurological Exam Present: alert, oriented X3, altered mental status Paraplegic - Routine Psychiatric Exam Present: normal affect, normal thought process. Absent: visual hallucinations Assessment and Plan (1) Severe sepsis with acute organ dysfunction Status: Acute Category: Medical Code(s): A41.9 - Sepsis, unspecified organism; R65.20 - Severe sepsis without septic shock (2) Community acquired pneumonia Status: Acute Qualifiers: Laterality: right Lung location: lower lobe of lung Qualified Code(s): J18.9 - Pneumonia, unspecified organism Category: Medical Code(s): J18.9 - Pneumonia, unspecified organism (3) Cellulitis of sacral region Status: Acute Category: Medical Code(s): L03.319 - Cellulitis of trunk, unspecified (4) Decubitus ulcer of sacral region, stage 2 Status: Acute Category: Medical Code(s): L89.152 - Pressure ulcer of sacral region, stage 2 (5) Pressure ulcer of left buttock Status: Acute Category: Medical Code(s): L89.329 - Pressure ulcer of left buttock, unspecified stage - Assessment and plan all Dx Assessment and Plan for all problems:: Rounded with Dr. Blair, all orders per Dr. Blair: 1. Continue current medical regimen 2. General surgery following
--- NOTE | 2022-02-19 14:41 | PC.NURSE ---
Report given to Virginia Solorzano RN who assumes care of patient at this time
[2022-02-19 16:37] LABS: POC Glucose,Bedside 215 (70-110)
--- NOTE | 2022-02-19 18:46 | PC.NURSE ---
pt has done well since this RN has assumed care. collected sputum specimen and sent to lab. will cont to monitor
[2022-02-19 18:54] LABS: POC Glucose,Bedside 294 (70-110)
[2022-02-19 21:06] LABS: POC Glucose,Bedside 286 (70-110)
[2022-02-20] VITALS (7 sets, daily range): BP systolic 100–122; BP diastolic 48–60; PULSE 55–80; RESP 18–24; TEMP 36.4–37.8; O2SAT 91–100; BMI 30.4
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
--- NOTE | 2022-02-20 04:43 | PC.NURSE ---
Pt has done well this shift. Pt wore cpap while sleeping with o2 94%. Remains on RA while awake. Pt voiced no c/o of pain this shift. Dressing to left buttock/hip C/D/I. Pt is able to help turn. Urostomy in place draining clear, yellow urine.
[2022-02-20 06:00] LABS: POC Glucose,Bedside 247 (70-110)
[2022-02-20 06:47] LABS: Basophils # 0.1 K/mm3 (0-0.2); Basophils % 0.5 % (0.1-2.0); Eosinophils # 0.1 K/mm3 (0.0-0.4); Eosinophils % 0.7 % (0.1-12.0); Hematocrit 29.9 % (37.0-47.0); Hemoglobin 9.6 g/dL (12.2-16.2); Lymphocytes # 0.7 K/mm3 (0.7-4.5); Lymphocytes % 5.8 % (10-50); Mean Corpuscular Hemoglobin 29.4 pg (27.0-31.2); Mean Corpuscular Volume 91.8 fl (81-99); Mean Platelet Volume 8.4 fl (7.4-10.4); Monocytes # 0.5 K/mm3 (0.1-1.0); Monocytes % 3.8 % (1.7-9.3); Neutrophils # 10.7 K/mm3 (1.8-7.8); Neutrophils % 89.2 % (37.0-80.0); Platelet Count 234 K/mm3 (142-424); Red Blood Count 3.26 M/mm3 (4.20-5.40); Red Cell Distribution Width 14.3 % (11.5-17.5)
[2022-02-20 06:54] LABS: Chloride 116 mmol/L (98-107); Sodium 141 mmol/L (136-145)
[2022-02-20 06:55] LABS: Potassium 3.7 mmoL/L (3.5-5.1)
[2022-02-20 06:57] LABS: Blood Urea Nitrogen 31 mg/dl (7-17); Creatinine Clearance Estimated 50 mL/min (50-200); Estimated Glomerular Filt Rate 33 ml/min (>60); GFR (African American) 40 ML/MIN (>60)
[2022-02-20 06:58] LABS: Anion Gap 14.7 mEq/L (5-15); Calcium 7.4 mg/dl (8.4-10.2); Carbon Dioxide 14 mmol/L (22.0-30.0); Glucose 247 mg/dl (74-100)
[2022-02-20 07:01] LABS: MANUAL DIFFERENTIAL MANUAL DIFFERENTIAL (MANUAL DIFF)
[2022-02-20 08:26] LABS: Lymphocytes % 6 % (10-50); Monocytes % 1 % (2-9); Neutrophils % 93 % (42-76); Total Cells Counted 100
[2022-02-20 08:28] LABS: Burr Cells 2+; Platelet Estimate Normal
--- NOTE | 2022-02-20 09:37 | SW/DCPLANNER ---
This patient will require IV antibiotics at time of discharge. I discussed with patient different discharge options to receive IV antibiotics: return to [facility] as an outpatient vs home w/ home health and assistance from family vs Medicaid placement (patient does not have Medicare). Patient expressed that she prefer to return home, her mother and neighbors will be available to assist/be taught how to administer IV antibiotics and help care for patient at home. Patient information/order will be faxed to [facility] and [facility] once discharge date is known. Patient does use [employer] as her main source of transportation.
--- NOTE | 2022-02-20 10:35 | CA_ITS ---
APPROVED REPORT EXAM: Comprehensive 2D, Doppler, and color-flow Echocardiogram Substation Engineer: Keily Rudd, RT(R) Ht: 5 ft 6 in Wt: 189lbs BSA: 1.95 BP: 93/46 mmHg Indications: SOA, cellulitis, HTN, DM, cellulitis, pneumonia, obesity, paraplegia. patient became sick during scan so scanning was stopped, limited exam. M-Mode Dimensions RVDd 2.85 cm (0.9-2.6) LVDd 4.94 cm (3.5-5.7) LVDs 3.62 cm (3.5-5.7) IVSd 1.07 cm (0.6-1.1) PWd 1.02 cm (0.6-1.1) EF (Teich) 52.00% FS 26.70% EDV (Teich) 115.00 mL TAPSE 2.09 (<1.7) ESV (Teich) 55.20 mL LV Diastology E Decel Time 230.00 (160-240 msec) E/A Ratio 1.5 MED E' 7.70 (< 7 cm/sec) E'/MED E' Ratio 15.92 (>14) LAT E' 9.20 (<10 cm/sec) E/LAT E' Ratio 13.33 (>14) Mitral Valve MV E Max Ottoniel. 123.00 (40-130 cm/s) MV A Velocity 84.00 (40-130 cm/s) E/A Ratio 1.46 MV Decel. Time 230.00 (160-240 ms) MV PHT 67.00 ms Left Ventricle Left atrium is mildly enlarged, left ventricle is normal size mild concentric left ventricular hypertrophy, estimated ejection fraction 55% with no regional wall motion abnormality, grade 2 diastolic dysfunction seen without tissue Doppler evidence of raise left atrial pressure. Right Ventricle Right atrium and right ventricle are normal size and contractility. Aortic Valve Aortic valve is thickened and calcified without aortic stenosis aortic insufficiency. Mitral Valve Mitral valve leaflets are minimally thickened, there is no mitral stenosis, there is mild mitral regurgitation. Tricuspid Valve Tricuspid valve grossly normal, there is mild tricuspid regurgitation, tricuspid rotation jet velocity is inadequate for calculation of the right ventricular systolic pressure. Pulmonic Valve Pulmonic valve is poorly visualized. Great Vessels Aortic root is normal size. Inferior vena cava is poorly visualized. Pericardium No significant pericardial effusion noted. Conclusion 1. Mild in the left atrium, normal left ventricular size, mild concentric left ventricular hypertrophy, estimated ejection fraction 55% with no regional wall motion abnormality, grade 2 diastolic dysfunction seen without tissue Doppler evidence of raise left atrial pressure. 2. Mild mitral and tricuspid regurgitation. 3. No significant pericardial effusion. 4. Inferior vena cava is poorly visualized. Electronically signed by : Charles Peterson MD 02/21/2022 15:13:35
--- NOTE | 2022-02-20 10:37 | HMH.ACPN2 ---
Internal Medicine - PN: Subj *Date: 02/20/22 *Time: 10:37 Interval history: 61-year-old female patient sitting up in bed she does report some shortness of breath this morning denies any chest pain. Exam Vital signs and Labs for Last 24 Hours: Temp Pulse Resp BP Pulse Ox 97.5 F L 76 18 112/54 L 94 L 02/20/22 08:00 02/20/22 08:00 02/20/22 08:00 02/20/22 08:00 02/20/22 08:00 Laboratory Results - last 24 hr 02/19/22 11:34: POC Glucose 294 H 02/19/22 16:27: POC Glucose 215 H 02/19/22 20:44: POC Glucose 286 H 02/20/22 05:49: POC Glucose 247 H 02/20/22 06:35: WBC 12.0 H, RBC 3.26 L, Hgb 9.6 L, Hct 29.9 L, MCV 91.8, MCH 29.4, MCHC 32.0, RDW 14.3, Plt Count 234, MPV 8.4, Neut % (Auto) 89.2 H, Lymph % (Auto) 5.8 L, [place] % (Auto) 3.8, Eos % (Auto) 0.7, Baso % (Auto) 0.5, Neut # (Auto) 10.7 H, Lymph # (Auto) 0.7, [place] # (Auto) 0.5, Eos # (Auto) 0.1, Baso # (Auto) 0.1, Total Counted 100, Neutrophils % (Manual) 93 H, Lymphocytes % (Manual) 6 L, Monocytes % (Manual) 1 L, Platelet Estimate Normal, [place] Cells 2+ 02/20/22 06:35: Sodium 141, Potassium 3.7, Chloride 116 H, Carbon Dioxide 14 L, Anion Gap 14.7, BUN 31 H, Creatinine 1.60 H, Estimated Creat Clear 50, Estimated GFR 33 L, Est GFR ( Amer) 40 L, Glucose 247 H, Calcium 7.4 L I & O for Last 24 hours: Intake & Output 02/17/22 02/18/22 02/19/22 02/20/22 23:59 23:59 23:59 23:59 Intake Total 193 / 193 1752 / 1752 572 / 572 Output Total 1174 2350 / 2930 1630 / 1630 Balance 764 / -86 -598 / -1178 -1058 / -1058 Weight 179 lb 3.2 oz 184 lb 12.663 oz 189 lb 1 oz Microbiology Reports for the Last 24 Hours: Microbiology 02/19/22 18:15 Sputum - Expectorated Sputum Gram Stain - Final 02/19/22 18:15 Sputum - Expectorated Sputum Sputum Culture - Preliminary 02/17/22 15:48 Blood Blood Culture - Preliminary NO GROWTH AFTER 48 HOURS 02/17/22 15:45 Blood Blood Culture - Preliminary NO GROWTH AFTER 48 HOURS - Constitutional mild distress - *Routine HEENT Exam Head: Present: normocephalic Eye: Present: EOMI ENT: Present: mucous membranes moist - *Routine Neck Exam Present: trachea midline. Absent: tracheal deviation - *Routine Respiratory Exam Present: CTA bilaterally. Absent: accessory muscle use - *Routine Cardiovascular Exam Present: RRR - *Routine Abdominal Exam Present: soft, normoactive bowel sounds. Absent: tenderness, firm - *Routine Extremities Exam Present: edema, pulses intact. Absent: cyanosis, clubbing Comments: Paraplegic - *Routine Skin Exam Present: erythema, dry, wounds. Absent: intact, cyanosis Comments: Wound to left sacral with dressing clean/dry/intact - *Routine Neurological Exam Present: alert, oriented X3 - Routine Psychiatric Exam Present: normal affect, normal thought process Assessment and Plan (1) Severe sepsis with acute organ dysfunction Status: Acute Category: Medical Code(s): A41.9 - Sepsis, unspecified organism; R65.20 - Severe sepsis without septic shock (2) Community acquired pneumonia Status: Acute Qualifiers: Laterality: right Lung location: lower lobe of lung Qualified Code(s): J18.9 - Pneumonia, unspecified organism Category: Medical Code(s): J18.9 - Pneumonia, unspecified organism (3) Cellulitis of sacral region Status: Acute Category: Medical Code(s): L03.319 - Cellulitis of trunk, unspecified (4) Decubitus ulcer of sacral region, stage 2 Status: Acute Category: Medical Code(s): L89.152 - Pressure ulcer of sacral region, stage 2 (5) Pressure ulcer of left buttock Status: Acute Category: Medical Code(s): L89.329 - Pressure ulcer of left buttock, unspecified stage - Assessment and plan all Dx Assessment and Plan for all problems:: Rounded with Dr. Guardado, all orders per Dr. Guardado: 1. Chest x-ray 2. Echo 3. Wound culture 4. Left hip x-ray 5 PICC line p
--- NOTE | 2022-02-20 10:39 | XR_ITS ---
FINAL REPORT CLINICAL HISTORY: wound FINDINGS: LEFT HIP Two views of the left hip with an AP pelvis demonstrate no acute fracture or dislocation. There is moderate degenerative change of both hips. The visualized bony structures are well aligned. There is a soft tissue defect in the lateral left hip. There is no definite bony erosion. IMPRESSION: Soft tissue defect at the left lateral hip. No definite bony erosion. If indicated, MRI could further evaluate. Reviewed, Interpreted and Dictated by Jose Alejandro Chaparro III, MD Transcribed by Adilia Son Authenticated and [facility]
--- NOTE | 2022-02-20 11:11 | HMH.OTEV ---
OT Inpatient Evaluation Rehab OT IP Evaluation Start: 02/20/22 08:47 Freq: ONCE Status: Complete Protocol: Document 02/20/22 10:56 [facility] (Rec: 02/20/22 11:10 [facility] [id number]) Rehab OT IP Assessment Subjective History Pt oriented x 3 on arrival. Pt agreeable to engage in therapy evaluation. Pt was admitted via ED on 02/17/22 due to Cellulitis of sacral region, Decubitus ulcer of sacral region, stage 2. Prior to being in the hosptial she lived alone. Pt claims she was independent with all ADLs and IADLs. Pt was in a wheelchair at all times due to paraplegia. However, she was able to transfer herself independently to and from wheelchair from all surfaces. Pt reports she has very helpful family members who will check on her often. Pt had a Debridement of necrotic left buttock pressure ulceration [at bedside] on . The following information was copied from history and physical report: 61-year-old female patient presented to the [facility] emergency department with reports of fever, chills, nonproductive cough for 2 to 3 days. She denies any shortness of breath or chest pain. She also reports a sore on left buttock that she just noticed last night. She does have a history of lesions since the age of 8 and reports she sets up in her wheelchair most of the day. Chest x-ray reveals Bilateral lower lobe pneumonia Severe sepsis with organ dysfunction: Temperature 100.9 , white blood cell count 12.1, bilateral lower
--- NOTE | 2022-02-20 11:23 | HMH.PTEV ---
Physical Therapy Evaluation Rehab PT IP Evaluation Start: 02/20/22 08:45 Freq: ONCE Status: Active Protocol: Document 02/20/22 11:10 RICO (Rec: 02/20/22 11:23 RICO [id number]) Subjective/History History History 61-year-old female patient presented to the [facility] emergency department with reports of fever, chills, nonproductive cough for 2 to 3 days. She denies any shortness of breath or chest pain. She also reports a sore on left buttock that she just noticed last night. She does have a history of lesions since the age of 8 and reports she sets up in her wheelchair most of the day. Subjective Subjective Pt reports she sat EOB w/ OT Rehab PT IP Eval Objective Appearance Patient Behavior Appropriate,Cooperative Patient Orientation Name,Birthday,Year,Situation Difficulty following instructions none Speech Pattern Clear,Appropriate Ambulation Patient Able to Ambulate No Balance Ability to Arise Unable Sitting Balance Steady, safe Dynamic Sitting Balance Ability Good Dynamic Standing Balance Ability Zero Transfers Bed Transfer Ability Independent,Supervision/Stand by Rehab PT IP prob,goals,plan Problems Date of Evaluation: 02/20/22 PT IP Problems Bed Mobility,Transfers Rehab Potential Rehab Potential Fair Equipment Needs Assistive Devices Wheelchair Plan PT Intervention Plan Bed Mobility,Transfers, Therapeutic Exercise PT Plan Frequency BID Duration LOS Discharge Goals Bed Transfer Ability Supervision/Stand by Discharge Plan PT Discharge Plan Pt parapalegic since 8 y/o. Pt was living independent in handicap accessible apartment - pt will benefit from skilled therapy while in [facility] to allow return to PLOF. Upon DC pt will continue to benefit from skilled therapy w/ HHPT. G -code Required No Eval Complexity Eval Charge Codes 46310 - Moderate Complexity
[2022-02-20 11:35] LABS: POC Glucose,Bedside 380 (70-110)
--- NOTE | 2022-02-20 12:21 | P.PN_ITS ---
Subjective Patient reports: no new complaints Progress Note: A&P (1) Severe sepsis with acute organ dysfunction Status: Acute (2) Community acquired pneumonia Status: Acute (3) Cellulitis of sacral region Status: Acute (4) Decubitus ulcer of sacral region, stage 2 Status: Acute (5) Pressure ulcer of left buttock Status: Acute Assessment and plan: Increased patchy necrosis noted. Will do some additional superficial debridement and continue dressing changes. May ultimately benefit from vacuum dressing. Exam Vital signs and Labs for Last 24 Hours: Temp Pulse Resp BP Pulse Ox 99.1 F 67 22 100/50 L 93 L 02/20/22 11:32 02/20/22 11:32 02/20/22 11:32 02/20/22 11:32 02/20/22 11:32 Laboratory Results - last 24 hr 02/19/22 11:34: POC Glucose 294 H 02/19/22 16:27: POC Glucose 215 H 02/19/22 20:44: POC Glucose 286 H 02/20/22 05:49: POC Glucose 247 H 02/20/22 06:35: WBC 12.0 H, RBC 3.26 L, Hgb 9.6 L, Hct 29.9 L, MCV 91.8, MCH 2 9.4, MCHC 32.0, RDW 14.3, Plt Count 234, MPV 8.4, Neut % (Auto) 89.2 H, Lymph % (Auto) 5.8 L, [place] % (Auto) 3.8, Eos % (Auto) 0.7, Baso % (Auto) 0.5, Neut # (Auto) 10.7 H, Lymph # (Auto) 0.7, [place] # (Auto) 0.5, Eos # (Auto) 0.1, Baso # (Auto) 0.1, Total Counted 100, Neutrophils % (Manual) 93 H, Lymphocytes % (Manual) 6 L, Monocytes % (Manual) 1 L, Platelet Estimate Normal, [place] Cells 2+ 02/20/22 06:35: Sodium 141, Potassium 3.7, Chloride 116 H, Carbon Dioxide 14 L, Anion Gap 14.7, BUN 31 H, Creatinine 1.60 H, Estimated Creat Clear 50, Estimated GFR 33 L, Est GFR ( Amer) 40 L, Glucose 247 H, Calcium 7.4 L 02/20/22 11:22: POC Glucose 380 H* I & O for Last 24 hours: Intake & Output 02/18/22 02/19/22 02/20/22 02/21/22 11:59 11:59 11:59 11:59 Intake Total 994 / 994 2041 / 2041 1228 / 1228 Output Total 700 / 700 1925 / 1925 2530 / 2530 Balance 294 / 294 116 / 116 -1302 / -1302 Weight 179 lb 3.2 oz 184 lb 12.8 oz 189 lb 1 oz Microbiology Reports for the Last 24 Hours: Microbiology 02/19/22 18:15 Sputum - Expectorated Sputum Gram Stain - Final 02/19/22 18:15 Sputum - Expectorated Sputum Sputum Culture - Preliminary 02/17/22 15:48 Blood Blood Culture - Preliminary NO GROWTH AFTER 48 HOURS 02/17/22 15:45 Blood Blood Culture - Preliminary NO GROWTH AFTER 48 HOURS - Constitutional no acute distress - *Routine Respiratory Exam Absent: respiratory distress - *Routine Cardiovascular Exam Absent: tachycardia - *Routine Skin Exam Comments: Increased patchy necrosis along left buttock wound
--- NOTE | 2022-02-20 13:30 | HMH.OPNOTE ---
Date of procedure: 02/20/22 Pre-op Diagnosis:: Left buttock pressure ulceration with necrosis and abscess (status post initial debridement) Post-op Diagnosis:: Same Procedure performed:: Bedside debridement of necrotic left buttock pressure ulcer with incision and drainage of associated abscess Note: Procedure completed at bedside/hospital room Surgeon:: Jairon Hill MD Anesthesia: none Estimated blood loss (mL): 10 Operative findings:: Lateral margin associated abscess cavity and subcutaneous tissue Necrotic eschar along margin and base (excised) Operative note:: After informed consent was obtained the patient was transferred to a right lateral decubitus position. The overlying necrotic eschar was sharply debrided with scalpel and scissors. Along the lateral margin of purulent cavity was entered and evacuated of fluid. A small point of ongoing bleeding was controlled with a single interrupted Vicryl in a [id number] fashion (medial wound margin). The entire cavity was packed with dry Kerlix and dressings were applied. Condition: stable Disposition: no change Complications:: No immediate
[2022-02-20 15:21] LABS: Vancomycin,Trough 15.5 ug/mL (5.0-10.0)
--- NOTE | 2022-02-20 15:32 | PC.NURSE ---
rounds made on patient. no concerns or questions in regards to current medications. did have some concerns with bowels not moving since thursday and this was relayed to md on rounds. did offer a prune and apple juice mixture to see if this would assist patient. encouraged to ring out as needed. encouraging [id number].
--- NOTE | 2022-02-20 15:50 | PC.NURSE ---
Pt hasn't had a bm since Thursday, left message for miralax request, awaiting response
--- NOTE | 2022-02-20 15:50 | P.CONPHA_ITS ---
- Pharmacy Consult Date: 02/20/22 Time: 15:50 Referring provider: DR. MORRISON Reason for Consult:: VANCOMYCIN LEVEL Allergies and ADEs:: Allergies Allergy/AdvReac Type Severity Reaction Status Date / Time No Known Allergies Allergy Verified 02/17/22 23:04 Home Medications:: Home Medications Medication Instructions Recorded Confirmed Type ferrous sulfate 325 mg (65 mg 325 mg PO BID tab 07/13/18 02/18/22 History iron) tablet [place]-3 Fatty Acids/Fish Oil [Fish 1 each PO QID 11/01/20 02/18/22 History Oil 1,000 mg Capsule] Alendronate Sodium 70 mg PO WEEKLY 02/18/22 02/18/22 History Bisoprolol Fumarate [Bisoprolol 5 mg PO DAILY 02/18/22 02/18/22 History 5mg Tablet] Dapagliflozin Propanediol [Farxiga] 10 mg PO DAILY 02/18/22 02/18/22 History Furosemide [Furosemide 40MG tAB*] 40 mg PO DAILY 02/18/22 02/18/22 History Metformin HCl 1,000 mg PO BIDWMEAL 02/18/22 02/18/22 History Pravastatin Sodium [Pravachol 40mg 40 mg PO DAILY 02/18/22 02/18/22 History Tablet] lisinopriL [Zestril 40mg Tablet] 40 mg PO DAILY 02/18/22 02/18/22 History Height: 1.68 m Weight: 85.757 kg Laboratory Results:: Laboratory Results - last 24 hr 02/19/22 11:34: POC Glucose 294 H 02/19/22 16:27: POC Glucose 215 H 02/19/22 20:44: POC Glucose 286 H 02/20/22 05:49: POC Glucose 247 H 02/20/22 06:35: WBC 12.0 H, RBC 3.26 L, Hgb 9.6 L, Hct 29.9 L, MCV 91.8, MCH 29.4, MCHC 32.0, RDW 14.3, Plt Count 234, MPV 8.4, Neut % (Auto) 89.2 H, Lymph % (Auto) 5.8 L, [place] % (Auto) 3.8, Eos % (Auto) 0.7, Baso % (Auto) 0.5, Neut # (Auto) 10.7 H, Lymph # (Auto) 0.7, [place] # (Auto) 0.5, Eos # (Auto) 0.1, Baso # (Auto) 0.1, Total Counted 100, Neutrophils % (Manual) 93 H, Lymphocytes % (Manual) 6 L, Monocytes % (Manual) 1 L, Platelet Estimate Normal, [place] Cells 2+ 02/20/22 06:35: Sodium 141, Potassium 3.7, Chloride 116 H, Carbon Dioxide 14 L, Anion Gap 14.7, BUN 31 H, Creatinine 1.60 H, Estimated Creat Clear 50, Estimated GFR 33 L, Est GFR ( Amer) 40 L, Glucose 247 H, Calcium 7.4 L 02/20/22 11:22: POC Glucose 380 H* 02/20/22 14:21: Vancomycin Trough 15.5 H Medical History: Reports:: Diabetes Mellitus Type 2, Hyperlipidemia, Hypertension, Renal Disease Denies:: Cancer, Diabetes Mellitus Type 1, Internal Pacemaker, MRSA, Seizures Assessment and Plan (1) Severe sepsis with acute organ dysfunction Status: Acute Category: Medical Code(s): A41.9 - Sepsis, unspecified organism; R65.20 - Severe sepsis without septic shock (2) Community acquired pneumonia Status: Acute Qualifiers: Laterality: right Lung location: lower lobe of lung Qualified Code(s): J18.9 - Pneumonia, unspecified organism Category: Medical Code(s): J18.9 - Pneumonia, unspecified organism (3) Cellulitis of sacral region Status: Acute Category: Medical Code(s): L03.319 - Cellulitis of trunk, unspecified (4) Decubitus ulcer of sacral region, stage 2 Status: Acute Category: Medical Code(s): L89.152 - Pressure ulcer of sacral region, stage 2 (5) Pressure ulcer of left buttock Status: Acute Category: Medical Code(s): L89.329 - Pressure ulcer of left buttock, unspecified stage - Assessment and plan all Dx Assessment and Plan for all problems:: PATIENT'S VANCOMYCIN TROUGH LEVEL IS 15.5 MCG/ML TODAY. RECOMMEND PATIENT CONTINUE WITH VANCOMYCIN 1500 MG Q36H AT THIS TIME.
[2022-02-20 16:53] LABS: POC Glucose,Bedside 251 (70-110)
--- NOTE | 2022-02-20 18:00 | PC.NURSE ---
pt has been pleasant t/o shift. performed wound debridement on left buttock at bedside, scheduled surgery for 02/21. pt to be NPO after midnight. pt became SOB, 2 L O2 via NC administered. pt call mccracken and personal items within reach, no other concerns at this time.
[2022-02-21] VITALS (44 sets, daily range): BP systolic 56–124; BP diastolic 30–66; PULSE 53–84; RESP 18–21; TEMP 36.7–37.7; O2SAT 95–100; BMI 31.0
[2022-02-21 00:40] LABS: POC Glucose,Bedside 227 (70-110)
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
[2022-02-21 04:22] LABS: Chloride 115 mmol/L (98-107); Potassium 4.8 mmoL/L (3.5-5.1); Sodium 139 mmol/L (136-145)
[2022-02-21 04:25] LABS: Anion Gap 16.8 mEq/L (5-15); Basophils # 0.2 K/mm3 (0-0.2); Basophils % 0.6 % (0.1-2.0); Blood Urea Nitrogen 36 mg/dl (7-17); Calcium 7.2 mg/dl (8.4-10.2); Carbon Dioxide 12 mmol/L (22.0-30.0); Creatinine Clearance Estimated 38 mL/min (50-200); Eosinophils # 0.1 K/mm3 (0.0-0.4); Eosinophils % 0.5 % (0.1-12.0); Estimated Glomerular Filt Rate 24 ml/min (>60); GFR (African American) 29 ML/MIN (>60); Glucose 318 mg/dl (74-100); Hematocrit 33.3 % (37.0-47.0); Lymphocytes # 1.9 K/mm3 (0.7-4.5); Lymphocytes % 6.5 % (10-50); Mean Corpuscular Hemoglobin 28.5 pg (27.0-31.2); Mean Corpuscular Volume 94.9 fl (81-99); Mean Platelet Volume 8.9 fl (7.4-10.4); Monocytes # 0.8 K/mm3 (0.1-1.0); Monocytes % 2.9 % (1.7-9.3); Neutrophils # 26.2 K/mm3 (1.8-7.8); Neutrophils % 89.5 % (37.0-80.0); Platelet Count 490 K/mm3 (142-424); Red Blood Count 3.51 M/mm3 (4.20-5.40); Red Cell Distribution Width 14.2 % (11.5-17.5); White Blood Count 29.3 K/mm3 (4.8-10.8)
--- NOTE | 2022-02-21 04:25 | HMH.RR ---
Acute Rapid Response Note - Subjective Date Responded: 02/21/22 Time Responded: 04:00 Provider Note: code blue called with change in breathing - Objective Findings: Vital Signs - Last 4 Hours Temperature 98.4 F 02/20/22 23:41 Temperature Source Oral 02/20/22 23:41 Pulse Rate 55 L 02/20/22 23:41 Respiratory Rate 20 02/20/22 23:41 Blood Pressure 101/48 L 02/20/22 23:41 Blood Pressure Mean 65 02/20/22 23:41 Blood Pressure Source Automatic Cuff 02/20/22 23:41 Blood Pressure Position Supine 02/19/22 15:05 02 Sat by Pulse Oximetry 100 02/20/22 23:41 Oxygen Delivery Method 02/21/22 03:00 Oxygen Flow Rate (LPM) 2 02/21/22 03:00 Lab Results for Past 12 Hours 02/20/22 20:21: POC Glucose 227 H 02/20/22 16:45: POC Glucose 251 H My Orders Category Date Time Status Chest XR -- portable [XR chest portable] Stat Exams 02/21/22 04:13 Taken Basic Metabolic Panel Routine Lab 02/21/22 04:00 Received Complete Blood Count Auto Diff Routine Lab 02/21/22 04:00 Received Troponin I Routine Lab 02/21/22 04:00 Received Rapid Response Exam - General General appearance: obtunded - Head Head exam: atraumatic - Eye Eye exam: Present: PERRL. Absent: scleral icterus - ENT ENT exam: Present: mucous membranes dry - Neck Neck exam: Present: trachea midline - Respiratory Respiratory exam: Present: respiratory distress - Cardiovascular Cardiovascular exam: Present: tachycardia - Abdominal Exam Abdominal exam: Present: soft - Extremities Exam Extremities exam: Present: other (bilat foot drop) - Neurological Exam Neurological exam: Present: other (obtunded - no posturing ) - Skin Skin exam: Present: other (has sacral decubitus) RR Procedures/Assess/Plan - Bedside Intubation Time Out Performed: No Sedative: none Laryngoscope: Ramirez Tube size: 7.5 Tube uncuffed: No Secured location: teeth Placement confirmation: visualized tube passing through cords, equal breath sounds bilaterally, confirmation by capnometry Patient tolerated procedure intubation: no complications Intubation Complications: none (1) Respiratory failure Status: Acute Qualifiers: Chronicity: acute Respiratory failure complication: unspecified whether with hypoxia or hypercapnia Qualified Code(s): J96.00 - Acute respiratory failure, unspecified whether with hypoxia or hypercapnia - Assessment and plan all Dx Assessment and Plan for all problems:: acute code blue and required intubation has pulse and bp
[2022-02-21 04:27] LABS: MANUAL DIFFERENTIAL MANUAL DIFFERENTIAL (MANUAL DIFF)
--- NOTE | 2022-02-21 04:30 | PC.NURSE ---
admitted pt s/p code to 219, notifying MD Blair of need for sedation as pt waking up and anxious from intubation, MD order propofol per protocol, will start immediately and continue to monitor
[2022-02-21 04:39] LABS: Troponin I < 0.01 ng/ml (0.00-0.034)
--- NOTE | 2022-02-21 04:50 | PC.NURSE ---
pt placed icu status and placed on telemetry, pt minimally sedated with propofol at 10mcg/kg/min, pt also on levophed for hypotension at 10mcg/min, pt with IVF at 75mL/hr, pt on intubated with 7.5OETT 23cm at lip, ventilator with settings of 50%FIO2, TV 440, RR 18, peep 5; noted wheezing upon ausculation, NSR on monitor, pupils perrla at 2mm, +1 pedal pulses, urostomy in place, single lumen PICC in place right upper extremity and 20G right forearm, will continue to monitor
--- NOTE | 2022-02-21 05:27 | PC.NURSE ---
0350 pt was found unresponsive, rapid red was called, pt immediately became apneic and code blue was called 0351 cpr initiated, venitilations given per bag/valve mask, pt placed on monitor, sinus farrah noted, rate 40bpm with no palpable pulse 0352 epinephrine 1mg given, continue cpr, ventilation per BVM, prep for intubation, dr rodriguez at bedside 0355 epinephrine 1mg given, cpr in progress, monitor revealed sinus tach at 170 with palpable pulses 0355 return of ROSC 0356 pt intubated 7 1/2 et tube, capnography in place, glucose fingerstick 246, chest xray ordered 0400 b/p noted 162/84, o2 sat 100% 0405 b/p 183/65 hr 111, sinus tach 0412 blood gas obtained, reviewed by dr rodriguez 0415 pt moved to 219 ICU, report given to juana TILLMAN 0430 family was called an notified of pt change in status
[2022-02-21 05:29] LABS: Lymphocytes % 11 % (10-50); Neutrophils % 89 % (42-76); Total Cells Counted 100
[2022-02-21 05:30] LABS: Acanthocytes 1+; Platelet Estimate Normal
[2022-02-21 05:39] LABS: POC Glucose,Bedside 246 (70-110)
--- NOTE | 2022-02-21 05:46 | PC.NURSE ---
pt's bp 116/60, decreased levo drip to 8mcg/min
--- NOTE | 2022-02-21 06:11 | PC.NURSE ---
bp 110/59, decreased levo drip to 6mcg/min
--- NOTE | 2022-02-21 06:16 | PC.NURSE ---
[address] Hill aware on patient condition.
[2022-02-21 06:24] LABS: POC Glucose,Bedside 294 (70-110)
--- NOTE | 2022-02-21 06:49 | PC.NURSE ---
0630-bp 116/61, decreased levo drip to 4mcg/min 0645-bp 119/61, decreased levo drip to 2mcg/min
--- NOTE | 2022-02-21 07:30 | PC.NURSE ---
pt has a urostomy. Urometer placed on urostomy bag to monitor Q1 UOP
--- NOTE | 2022-02-21 08:18 | P.PN_ITS ---
Subjective Narrative: The patient was scheduled to undergo additional debridement in the operating room this morning; however, she suffered respiratory arrest requiring intubation. She is currently responding to commands. Progress Note: A&P (1) Respiratory failure Status: Acute (2) Pressure ulcer of left buttock Status: Acute Assessment and plan: Necrotic left buttock pressure ulcer requiring bedside debridement (x2). Purulent pocket evacuated during yesterday's bedside debridement. Additional debridement in the operating room planned for this morning; however, this has been delayed secondary to acute respiratory arrest requiring intubation. Reevaluate wound later today Possible operative debridement (pending reevaluation of wound) if deemed stable per primary care and anesthesia Note: If the patient does undergo operative debridement...she will likely not receive anesthetic agents [A) her denervation allows debridement without pain; B) this avoids added risk of sedative agents) Exam Vital signs and Labs for Last 24 Hours: Temp Pulse Resp BP Pulse Ox 99.2 F 65 18 100/52 L 100 02/21/22 04:45 02/21/22 07:00 02/21/22 06:30 02/21/22 07:00 02/21/22 06:30 Laboratory Results - last 24 hr 02/20/22 06:35: Total Counted 100, Neutrophils % (Manual) 93 H, Lymphocytes % (Manual) 6 L, Monocytes % (Manual) 1 L, Platelet Estimate Normal, [place] Cells 2+ 02/20/22 11:22: POC Glucose 380 H* 02/20/22 14:21: Vancomycin Trough 15.5 H 02/20/22 16:45: POC Glucose 251 H 02/20/22 20:21: POC Glucose 227 H 02/21/22 03:57: POC Glucose 246 H 02/21/22 04:00: WBC 29.3 H* D, RBC 3.51 L, Hgb 10.0 L, Hct 33.3 L, MCV 94.9, MCH 28.5, MCHC 30.0 L, RDW 14.2, Plt Count 490 H D, MPV 8.9, Neut % (Auto) 89.5 H, Lymph % (Auto) 6.5 L, [place] % (Auto) 2.9, Eos % (Auto) 0.5, Baso % (Auto) 0.6, Neut # (Auto) 26.2 H, Lymph # (Auto) 1.9, [place] # (Auto) 0.8, Eos # (Auto) 0.1, Baso # (Auto) 0.2, Total Counted 100, Neutrophils % (Manual) 89 H, Lymphocytes % (Manual) 11, Platelet Estimate Normal, Acanthocytes ([place]) 1+ 02/21/22 04:00: Sodium 139, Potassium 4.8 D, Chloride 115 H, Carbon Dioxide 12 L, Anion Gap 16.8 H, BUN 36 H, Creatinine 2.10 H D, Estimated Creat Clear 38, Estimated GFR 24 L, Est GFR ( Amer) 29 L D, Glucose 318 H D, Calcium 7.2 L, Troponin I < 0.01 02/21/22 06:16: POC Glucose 294 H I & O for Last 24 hours: Intake & Output 02/18/22 02/19/22 02/20/22 02/21/22 11:59 11:59 11:59 11:59 Intake Total 994 / 994 2041 / 2041 1228 / 1228 680 / 680 Output Total 700 / 700 1925 / 1925 2530 / 2530 600 / 600 Balance 294 / 294 116 / 116 -1302 / -1302 80 / 80 Weight 179 lb 3.2 oz 184 lb 12.8 oz 189 lb 1 oz 193 lb 4.8 oz Microbiology Reports for the Last 24 Hours: Microbiology 02/19/22 18:15 Sputum - Expectorated Sputum Gram Stain - Final 02/19/22 18:15 Sputum - Expectorated Sputum Sputum Culture - Preliminary 02/20/22 10:50 Buttock - Left Gram Stain - Final - Constitutional Comments: Currently intubated. Following commands. Not in distress. - *Routine Cardiovascular Exam Absent: tachycardia - *Routine Skin Exam Comments: Left buttock wound with some retained marginal and base necrosis. Cellulitic blush and some induration noted.
[2022-02-21 08:41] LABS: ABG Base Excess -17.6 mmol/L (-2.4-2.3); ABG HCO3 11.6 mmhg (22.0-26.0); ABG Oxygen Saturation 98 % (90-100); ABG PCO2 35.2 mmhg (35.0-45.0); ABG PH 7.13 mmol/L (7.35-7.45); ABG PO2 110.3 mmhg (80-100); ABG TCO2 12.6 mmhg (23-27); Oxygen 50 %; Tidal Volume 440; Vent Rate 18
[2022-02-21 08:42] LABS: Allen's Test ACCEPTABLE; PEEP 5; Source L RADIAL
--- NOTE | 2022-02-21 08:48 | PC.NURSE ---
radiology notified this rn that they could not perform PE study r/t pt GFR <30. Aspen Pascual RN notified.
--- NOTE | 2022-02-21 09:02 | PC.NURSE ---
Dr. Wright made aware of the following: pH 7.13, HCO3 11.6, and BE 17.6.
--- NOTE | 2022-02-21 09:03 | P.PN_ITS ---
Internal Medicine - PN: Subj *Date: 02/21/22 *Time: 12:21 Interval history: hrough the night last night the patient had a respiratory/cardiac arrest and ended up intubated and on the ventilator. This morning she appears to be in no distress. Her vital signs are stable. Her chest x-ray does show mild CHF with no evidence of pneumonia. She is able to follow simple commands this morning. Exam Vital signs and Labs for Last 24 Hours: Temp Pulse Resp BP Pulse Ox 99.2 F 65 18 100/52 L 100 02/21/22 08:00 02/21/22 07:00 02/21/22 06:30 02/21/22 07:00 02/21/22 06:30 Laboratory Results - last 24 hr 02/20/22 11:22: POC Glucose 380 H* 02/20/22 14:21: Vancomycin Trough 15.5 H 02/20/22 16:45: POC Glucose 251 H 02/20/22 20:21: POC Glucose 227 H 02/21/22 03:57: POC Glucose 246 H 02/21/22 04:00: WBC 29.3 H* D, RBC 3.51 L, Hgb 10.0 L, Hct 33.3 L, MCV 94.9, MCH 28.5, MCHC 30.0 L, RDW 14.2, Plt Count 490 H D, MPV 8.9, Neut % (Auto) 89.5 H, Lymph % (Auto) 6.5 L, [place] % (Auto) 2.9, Eos % (Auto) 0.5, Baso % (Auto) 0.6, Neut # (Auto) 26.2 H, Lymph # (Auto) 1.9, [place] # (Auto) 0.8, Eos # (Auto) 0.1, Baso # (Auto) 0.2, Total Counted 100, Neutrophils % (Manual) 89 H, Lymphocytes % (Manual) 11, Platelet Estimate Normal, Acanthocytes ([place]) 1+ 02/21/22 04:00: Sodium 139, Potassium 4.8 D, Chloride 115 H, Carbon Dioxide 12 L, Anion Gap 16.8 H, BUN 36 H, Creatinine 2.10 H D, Estimated Creat Clear 38, Estimated GFR 24 L, Est GFR ( Amer) 29 L D, Glucose 318 H D, Calcium 7.2 L, Troponin I < 0.01 02/21/22 06:16: POC Glucose 294 H 02/21/22 06:49: Specimen Source L radial, O2 % 50, ABG pH 7.13 L*, ABG pCO2 35.2, ABG pO2 110.3 H, ABG HCO3 11.6 L, ABG Total CO2 12.6 L, ABG O2 Saturation 98, ABG Base Excess -17.6 L, Huang Test Acceptable, Vent Rate 18, Tidal Volume 440, PEEP 5 I & O for Last 24 hours: Intake & Output 02/18/22 02/19/22 02/20/22 02/21/22 23:59 23:59 23:59 23:59 Intake Total 1939 / 1939 1752 / 1752 1252 / 1252 Output Total 1174 / 2024 2350 / 2930 2029 / 2229 200 / 200 Balance 764 / -86 -598 / -1178 -778 / -978 -200 / -200 Weight 184 lb 12.663 oz 189 lb 1 oz 193 lb 4.8 oz Microbiology Reports for the Last 24 Hours: Microbiology 02/19/22 18:15 Sputum - Expectorated Sputum Gram Stain - Final 02/19/22 18:15 Sputum - Expectorated Sputum Sputum Culture - Preliminary 02/20/22 10:50 Buttock - Left Gram Stain - Final Assessment and Plan (1) Respiratory failure Status: Acute Qualifiers: Chronicity: acute Respiratory failure complication: unspecified whether with hypoxia or hypercapnia Qualified Code(s): J96.00 - Acute respiratory failure, unspecified whether with hypoxia or hypercapnia Category: Medical Code(s): J96.90 - Respiratory failure, unspecified, unspecified whether with hypoxia or hypercapnia (2) Pressure ulcer of left buttock Status: Acute Category: Medical Code(s): L89.329 - Pressure ulcer of left buttock, unspecified stage
--- NOTE | 2022-02-21 09:05 | ECG_ITS ---
APPROVED REPORT Exam: Resting ECG HR:56 bpm ECG Measurements Heart Rate 56 AXES DE 157 P 75 QRSd 89 QRS -5 QT 484 T 16 QTc 477 Conclusion SINUS BRADYCARDIA LOW QRS VOLTAGE IN PRECORDIAL LEADS [QRS DEFLECTION < 1.0 mV IN CHEST LEADS] PATTERN CONSISTENT WITH PULMONARY DISEASE PROLONGED QT INTERVAL ABNORMAL ECG UNCONFIRMED REPORT Electronically signed by : Dave Taylor MD 02/21/2022 17:29:15
--- NOTE | 2022-02-21 09:48 | HMH.PULMCON ---
*Admission Date: 02/17/22 *History of present illness: Patient intubated and sedated. History obtained from chart review. Ms. heath is 61-year-old female admitted to the hospital with subjective fevers and chills and sacral decubitus ulcer also being treated for pneumonia with broad-spectrum antibiotics noted to have acute respiratory decompensation needing intubation mechanical ventilator support and pulmonary was called for further management. [facility] History Medical History: Reports:: Diabetes Mellitus Type 2, Hyperlipidemia, Hypertension, Renal Disease Denies:: Cancer, Diabetes Mellitus Type 1, Internal Pacemaker, MRSA, Seizures *Have you ever received a pneumonia vaccine?: Yes *Have you received a flu vaccine this season?: Yes Other Surgeries: Yes: No Previous Surgery, Colonoscopy, Colostomy, , Hysterectomy-Total. No: Pacemaker Amputation: No Fractures: No - *Social History Smoking Status: Never smoker Alcohol Intake: never Substance Use Type: denies use *Occupational Status:: disabled Housing: apartment Household Members: none *Travel in the last 8 weeks: None Family Hx:: No significant family history ROS - Review of Systems Review of systems:: unable to obtain Patient intubated and sedated Meds Home Medications Medication Instructions Recorded Confirmed Type ferrous sulfate 325 mg (65 mg 325 mg PO BID tab 07/13/18 02/18/22 History iron) tablet [place]-3 Fatty Acids/Fish Oil [Fish 1 each PO QID 11/01/20 02/18/22 History Oil 1,000 mg Capsule] Alendronate Sodium 70 mg PO WEEKLY 02/18/22 02/18/22 History Bisoprolol Fumarate [Bisoprolol 5 mg PO DAILY 02/18/22 02/18/22 History 5mg Tablet] Dapagliflozin Propanediol [Farxiga] 10 mg PO DAILY 02/18/22 02/18/22 History Furosemide [Furosemide 40MG tAB*] 40 mg PO DAILY 02/18/22 02/18/22 History Metformin HCl 1,000 mg PO BIDWMEAL 02/18/22 02/18/22 History Pravastatin Sodium [Pravachol 40mg 40 mg PO DAILY 02/18/22 02/18/22 History Tablet] lisinopriL [Zestril 40mg Tablet] 40 mg PO DAILY 02/18/22 02/18/22 History Allergies Allergy/AdvReac Type Severity Reaction Status Date / Time No Known Allergies Allergy Verified 02/17/22 23:04 Exam - Constitutional Constitutional:: Present: no acute distress - HENMT Exam HENMT: Present: normocephalic - Eye Exam Eyes:: Present: normal appearance both eyes and related structures - Neck Exam Neck:: Present: normal visual inspection - Respiratory Exam Respiratory:: Present: no respiratory distress. Absent: able to speak in complete sentences, wheezing - Cardiovascular Exam Cardiac:: Present: S1, S2 - GI Exam GI:: Present: soft - Skin Exam Skin: Present: warm - Neurological Exam Neurological: Absent: alert, awake Intubated and sedated - Extremities Exam Extremities: Present: no cyanosis, no clubbing, no edema Internal Medicine - CN: Reslt - Labs CBC & Chem 7: 02/21/22 04:00 02/21/22 04:00 Labs: Short CBC 02/21/22 Range/Units 04:00 WBC 29.3 H* D (4.8-10.8) K/mm3 Hgb 10.0 L (12.2-16.2) g/dL Hct 33.3 L (37.0-47.0) % Plt Count 490 H D (142-424) K/mm3 BMP 02/21/22 04:00 Sodium 139 Potassium 4.8 D Chloride 115 H Carbon Dioxide 12 L BUN 36 H Creatinine 2.10 H D Glucose 318 H D Calcium 7.2 L Cardiac Enzymes 02/21/22 Range/Units 04:00 Troponin I < 0.01 (0.00-0.034) ng/ml - ABG Interpretation ABG results: 02/21/22 06:49 ABG pH 7.13 L* ABG pCO2 35.2 ABG pO2 110.3 H ABG HCO3 11.6 L ABG Total CO2 12.6 L ABG O2 Saturation 98 ABG Base Excess -17.6 L Assessment and Plan (1) Respiratory failure Status: Acute Qualifiers: Chronicity: acute Respiratory failure complication: unspecified whether with hypoxia or hypercapnia Qualified Code(s): J96.00 - Acute respiratory failure, unspecified whether with hypoxia or hypercapnia Category: Medical Code(s): J96.90 - Respiratory failure
--- NOTE | 2022-02-21 10:10 | PC.NURSE ---
1010- levo gtt stopped bp 116/66
--- NOTE | 2022-02-21 10:23 | CA_ITS ---
FINAL REPORT CLINICAL HISTORY: Hypoxia, post code/intubation, Difficult study, poor windows. HTN, HLD, DM, Paraplegic FINDINGS: Color Doppler, duplex Doppler and compression sonography of the bilateral lower extremities was performed. There is no evidence of deep venous thrombosis from the level of the groin to the calf. The deep veins are patent and compressible. IMPRESSION: No evidence of deep venous thrombosis bilateral lower extremities. Reviewed, Interpreted and Dictated by Jose Alejandro Chaparro III, MD Transcribed by Amber Tadeo Authenticated and [facility]
--- NOTE | 2022-02-21 10:29 | PC.NURSE ---
bronchoscopy with BAL @ BS. Dr. Wright and sugical nurses present.
--- NOTE | 2022-02-21 10:30 | PC.NURSE ---
1030- bp 89/48 resumed levo gtt @ 4 mcg
--- NOTE | 2022-02-21 10:32 | DIET.NUTRFU ---
Addendum entered by Lolis Merlos RD, LD 02/21/22 12:14: RD consulted for TF to provide nutrition well intubated. Will start Plumocare at 20ml/hr with goal rate of 50ml/hr providing 1800kcal, 75gm protein and 942ml water from formula, flush at 120ml Q4H to provide 720ml/day with total 1662ml. This will [id number]% of nutritional needs to promote healing. Also recommend starts zinc and vitamin C to promote healing. Once TF goals met consult provider to discontinue IVF. Will continue to monitor renal labs. Original Note: Patient was intubated yesterday and is currently NPO. Plan is to have wound debrided again and then start SBT to extubate. She is able to follow commands. Will continue to follow pulmonary recommendations. If unable to extubate may benefit from TF, due to her increased nutritional needs in place for wound healing. IVF in place for hydration. Renal labs are elevated with Cr 2.10, high doses of protein may not be appropriate at this time. Will reval when extubated or when TF is feasible.
--- NOTE | 2022-02-21 10:34 | P.PN_ITS ---
Internal Medicine - PN: Subj *Date: 02/21/22 *Time: 10:34 Exam Vital signs and Labs for Last 24 Hours: Temp Pulse Resp BP Pulse Ox 99.2 F 57 L 18 106/56 L 100 02/21/22 08:00 02/21/22 09:00 02/21/22 09:00 02/21/22 09:00 02/21/22 09:00 Laboratory Results - last 24 hr 02/20/22 11:22: POC Glucose 380 H* 02/20/22 14:21: Vancomycin Trough 15.5 H 02/20/22 16:45: POC Glucose 251 H 02/20/22 20:21: POC Glucose 227 H 02/21/22 03:57: POC Glucose 246 H 02/21/22 04:00: WBC 29.3 H* D, RBC 3.51 L, Hgb 10.0 L, Hct 33.3 L, MCV 94.9, MCH 28.5, MCHC 30.0 L, RDW 14.2, Plt Count 490 H D, MPV 8.9, Neut % (Auto) 89.5 H, Lymph % (Auto) 6.5 L, [place] % (Auto) 2.9, Eos % (Auto) 0.5, Baso % (Auto) 0.6, Neut # (Auto) 26.2 H, Lymph # (Auto) 1.9, [place] # (Auto) 0.8, Eos # (Auto) 0.1, Baso # (Auto) 0.2, Total Counted 100, Neutrophils % (Manual) 89 H, Lymphocytes % (Manual) 11, Platelet Estimate Normal, Acanthocytes (Spur) 1+ 02/21/22 04:00: Sodium 139, Potassium 4.8 D, Chloride 115 H, Carbon Dioxide 12 L, Anion Gap 16.8 H, BUN 36 H, Creatinine 2.10 H D, Estimated Creat Clear 38, Estimated GFR 24 L, Est GFR ( Amer) 29 L D, Glucose 318 H D, Calcium 7.2 L, Troponin I < 0.01 02/21/22 06:16: POC Glucose 294 H 02/21/22 06:49: Specimen Source L radial, O2 % 50, ABG pH 7.13 L*, ABG pCO2 35.2, ABG pO2 110.3 H, ABG HCO3 11.6 L, ABG Total CO2 12.6 L, ABG O2 Saturation 98, ABG Base Excess -17.6 L, Huang Test Acceptable, Vent Rate 18, Tidal Volume 440, PEEP 5 I & O for Last 24 hours: Intake & Output 02/18/22 02/19/22 02/20/22 02/21/22 23:59 23:59 23:59 23:59 Intake Total 1939 / 1939 1752 / 1752 1252 / 1252 Output Total 1174 / 2024 2350 / 0 2029 425 / 425 Balance 764 / -86 -598 / -1178 -778 / -978 -425 / -425 Weight 83.82 kg 85.757 kg 87.679 kg Microbiology Reports for the Last 24 Hours: Microbiology 02/19/22 18:15 Sputum - Expectorated Sputum Gram Stain - Final 02/19/22 18:15 Sputum - Expectorated Sputum Sputum Culture - Preliminary 02/20/22 10:50 Buttock - Left Gram Stain - Final Assessment and Plan (1) Respiratory failure Status: Acute Qualifiers: Chronicity: acute Respiratory failure complication: unspecified whether with hypoxia or hypercapnia Qualified Code(s): J96.00 - Acute respiratory failure, unspecified whether with hypoxia or hypercapnia Category: Medical Code(s): J96.90 - Respiratory failure, unspecified, unspecified whether with hypoxia or hypercapnia (2) Pressure ulcer of left buttock Status: Acute Category: Medical Code(s): L89.329 - Pressure ulcer of left buttock, unspecified stage The patient's infection will respond to the chosen ABx?: Yes Is the patient receiving the right drug, dose, and route?: Yes Could a more targeted ABx be ordered?: No (CONT ABX FOR NOW. GETTING ENDOTRACHEAL TUBE ASPIRATE.)
--- NOTE | 2022-02-21 10:34 | HMH.CNCARD ---
History of Present Illness Consult date: 02/21/22 Requesting physician: Quincy Blair Chief complaint: unable to obtain History of present illness: This is a 61-year-old white female who was admitted to the hospital with sepsis and a wound to her left buttocks. She has undergone surgical intervention/debridement for the wound to the left buttocks. Through the night last night the patient had a respiratory/cardiac arrest and ended up intubated and on the ventilator. This morning she appears to be in no distress. Her vital signs are stable. Her chest x-ray does show mild CHF with no evidence of pneumonia. She is able to follow simple commands this morning. [facility] History I have reviewed the patient's past medical history: Yes Medical History: Reports:: Diabetes Mellitus Type 2, Hyperlipidemia, Hypertension, Renal Disease Denies:: Cancer, Diabetes Mellitus Type 1, Internal Pacemaker, MRSA, Seizures *Have you ever received a pneumonia vaccine?: Yes *Have you received a flu vaccine this season?: Yes Other Surgeries: Yes: No Previous Surgery, Colonoscopy, Colostomy, , Hysterectomy-Total. No: Pacemaker Amputation: No Fractures: No - *Social History Smoking Status: Never smoker Alcohol Intake: never Substance Use Type: denies use *Occupational Status:: disabled Housing: apartment Household Members: none *Travel in the last 8 weeks: None Family Hx:: No significant family history Meds Home Medications Medication Instructions Recorded Confirmed Type ferrous sulfate 325 mg (65 mg 325 mg PO BID tab 07/13/18 02/18/22 History iron) tablet [place]-3 Fatty Acids/Fish Oil [Fish 1 each PO QID 11/01/20 02/18/22 History Oil 1,000 mg Capsule] Alendronate Sodium 70 mg PO WEEKLY 02/18/22 02/18/22 History Bisoprolol Fumarate [Bisoprolol 5 mg PO DAILY 02/18/22 02/18/22 History 5mg Tablet] Dapagliflozin Propanediol [Farxiga] 10 mg PO DAILY 02/18/22 02/18/22 History Furosemide [Furosemide 40MG tAB*] 40 mg PO DAILY 02/18/22 02/18/22 History Metformin HCl 1,000 mg PO BIDWMEAL 02/18/22 02/18/22 History Pravastatin Sodium [Pravachol 40mg 40 mg PO DAILY 02/18/22 02/18/22 History Tablet] lisinopriL [Zestril 40mg Tablet] 40 mg PO DAILY 02/18/22 02/18/22 History Allergies Allergy/AdvReac Type Severity Reaction Status Date / Time No Known Allergies Allergy Verified 02/17/22 23:04 Exam Vital signs and Labs for Last 24 Hours: Temp Pulse Resp BP Pulse Ox 99.2 F 57 L 18 106/56 L 100 02/21/22 08:00 02/21/22 09:00 02/21/22 09:00 02/21/22 09:00 02/21/22 09:00 Laboratory Results - last 24 hr 02/20/22 11:22: POC Glucose 380 H* 02/20/22 14:21: Vancomycin Trough 15.5 H 02/20/22 16:45: POC Glucose 251 H 02/20/22 20:21: POC Glucose 227 H 02/21/22 03:57: POC Glucose 246 H 02/21/22 04:00: WBC 29.3 H* D, RBC 3.51 L, Hgb 10.0 L, Hct 33.3 L, MCV 94.9, MCH 28.5, MCHC 30.0 L, RDW 14.2, Plt Count 490 H D, MPV 8.9, Neut % (Auto) 89.5 H, Lymph % (Auto) 6.5 L, [place] % (Auto) 2.9, Eos % (Auto) 0.5, Baso % (Auto) 0.6, Neut # (Auto) 26.2 H, Lymph # (Auto) 1.9, [place] # (Auto) 0.8, Eos # (Auto) 0.1, Baso # (Auto) 0.2, Total Counted 100, Neutrophils % (Manual) 89 H, Lymphocytes % (Manual) 11, Platelet Estimate Normal, Acanthocytes (Spur) 1+ 02/21/22 04:00: Sodium 139, Potassium 4.8 D, Chloride 115 H, Carbon Dioxide 12 L, Anion Gap 16.8 H, BUN 36 H, Creatinine 2.10 H D, Estimated Creat Clear 38, Estimated GFR 24 L, Est GFR ( Amer) 29 L D, Glucose 318 H D, Calcium 7.2 L, Troponin I < 0.01 02/21/22 06:16: POC Glucose 294 H 02/21/22 06:49: Specimen Source L radial, O2 % 50, ABG pH 7.13 L*, ABG pCO2 35.2, ABG pO2 110.3 H, ABG HCO3 11.6 L, ABG Total CO2 12.6 L, ABG O2 Saturation 98, ABG Base Excess -17.6 L, Huang Test Acceptable, Vent Rate 18, Tidal Volume 440, PEEP 5 I & O for Last 24 hours: Intake & Output 02/18/22 02/19/22 02/20/22 02/21/22 23:59 23:59 23:59 23:59 Intake Total 1938 / 1938 1752 / 1752 1252 / 1252 Output T
--- NOTE | 2022-02-21 11:14 | HMH.BRONCH ---
- Procedure: Date: 02/21/22 Patient Date of :: 1960 Procedure Performed:: Bronchoscopy airway examination and bronchoalveolar lavage Indications:: Not resolving pneumonia Performing Provider:: Samantha Wright MD Referring Provider:: Dr. Guardado Sedation:: Intubation mechanical ventilator. On propofol drip. Also received Versed and fentanyl. Procedure:: Bronchoscopy airway examination and alveolar lavage: Clean diagnostic bronchoscopy done to the ET tube and airways were examined up to subsegmental bronchi minimal mucoid secretions were noted in the right mainstem bronchial lung bronchi appear normal however erythematous and fragile. No obvious evidence of bleeding or mucous plugging noted. Bronchoalveolar lavage was performed the right lower lobe a total of 60CC NS instilled witj return of 20 cc back. Alveolar lavage fluid was sent for bacterial gram stain culture. No other testings were sent. Patient tolerated the procedure well. No immediate complications. Follow with culture results. Findings:: Please see the procedure note Recommendations:: Please see the procedure note and H&P from today Complications:: None Estimated blood obtained (mL): 0
--- NOTE | 2022-02-21 12:10 | P.PN_ITS ---
[facility] Anesthesia Checklist - Patient Identification Patient Identification: Arm Band - Structural Data Admitted From: Inpatient Planned Operative Procedure/s: I & D Consent for Planned Operative Procedure(s) Verified: Yes - NPO Status Verified Time NPO: 00:00 - Airway Assessment C-Spine Mobility Assessed: Yes TMJ Mobility Assessed: No (Intubated) Dentition: Poor Dentition (Unable to assess. Intubated) - Neurological Assessment Level of Consciousness: Sedated Hx Seizures: No Numbness or tingling in extremities: No - Anesthesia Plan Anesthesia Risk discussed: Yes Anesthesia Plan: Verified ASA Class: IV (IV E) Anesthesia Type: MAC [facility] History I have reviewed the patient's past medical history: Yes Medical History: Reports:: Arrhythmia, Diabetes Mellitus Type 2, Hyperlipidemia, Hypertension, Renal Disease Denies:: Cancer, Diabetes Mellitus Type 1, Internal Pacemaker, MRSA, Seizures *Have you ever received a pneumonia vaccine?: Yes *Have you received a flu vaccine this season?: Yes Other Medical History: Reports: Other (Resp/cardiac arrest, severe sepsis) Anesthesia experience/problems:: None Other Surgeries: Yes: No Previous Surgery, Colonoscopy, Colostomy, , Hysterectomy-Total. No: Pacemaker Amputation: No Fractures: No - *Social History Smoking Status: Never smoker Alcohol Intake: never Substance Use Type: denies use *Occupational Status:: disabled Housing: apartment Household Members: none *Travel in the last 8 weeks: None Family Hx:: No significant family history
[2022-02-21 12:28] LABS: POC Glucose,Bedside 240 (70-110)
--- NOTE | 2022-02-21 13:26 | HMH.OPNOTE ---
Date of procedure: 02/21/22 Pre-op Diagnosis:: Left buttock pressure ulceration with necrosis and abscess Post-op Diagnosis:: Same Procedure performed:: Extensive debridement of necrotic left buttock pressure ulceration with abscess Surgeon:: Jairon Hill MD SCHOOL VOCATIONAL EDUCATOR:: Nyla Correia Anesthesia: MAC Estimated blood loss (mL): 250 Operative findings:: Complex pressure ulceration with soft tissue necrosis and abscess. Extensive necrotic tissue to margin of fascia. Patchy areas of muscular necrosis. Operative note:: After informed consent was obtained the patient was taken to the operating room and placed in the supine position. Monitored anesthesia care ensued and she was transferred to the right lateral decubitus position. Her left buttock region was prepped and draped in a sterile fashion. Necrotic tissue from the wound base was excised with cautery. The skin margin was also necrotic and this was excised. Further dissection revealed extensive complex multifocal abscess cavities with surrounding soft tissue necrosis. Skin margin was then extended to accommodate these regions of additional abscess/necrosis. The associated necrotic subcutaneous tissue to the margin of the fascia was excised with electrocautery. A few areas of patchy muscular necrosis were also excised. Electrocautery was utilized to achieve hemostasis. The wound base and margin were packed with moistened Kerlix. Dressings were applied and the patient was transferred to recovery in stable condition. Condition: stable Disposition: PACU Specimens:: Necrotic tissue excised. None sent for pathology. Complications:: No immediate
--- NOTE | 2022-02-21 13:26 | PC.NURSE ---
MORNING ROUNDS WERE DONE WITH PRIMARY MD. PATIENT IS SEDATED AND INTUBATED. FAMILY IS AT BEDSIDE. MD UPDATED PATIENT FAMILY WITH WHAT HE COULD ON PLAN OF CARE. STILL AWAITING PULMONOLOGY. MD ADDED IN A CARDIOLOGY CONSULT. FAMILY VOICED NO OTHER QUESTIONS OR CONCERNS AT THAT TIME.
--- NOTE | 2022-02-21 13:35 | PC.NURSE ---
pt back from OR
--- NOTE | 2022-02-21 14:10 | PC.NURSE ---
1335-upon arrival to room 219, bed locked in lowest position, pt reconnected to mechanical ventilator per ERIC Klein and Josue,WET PROCESS OPERATOR after being bagged per ambu bag during transport, vent settings as follows- FIO2 40%, TV 440 RR 18 Pressure Support 5 and PEEP 5, pt on sedation of Propofol drip @ 25 mcg and decreased to 15mcg per JosueRN upon arrival , pt on LEvophed drip @ 8mcg/min, all sedation/drips being titrated and monitored per JosueRN, pt's vss, will continue to monitor
--- NOTE | 2022-02-21 14:18 | PC.NURSE ---
1358-additional report given at bedside to PRIMO Salas and PRIMO Prescott, VOTING MACHINE MECHANIC remained at bedside during recover period, pt remains stable with vss, pt left in care of PRIMO Salas and KenyonRN
--- NOTE | 2022-02-21 15:16 | PC.NURSE ---
Pulmocare started at this time at 10 ml/hr with 30 ml q4 hr flush.
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
[2022-02-21 17:03] LABS: POC Glucose,Bedside 247 (70-110)
[2022-02-21 20:47] LABS: POC Glucose,Bedside 251 (70-110)
--- NOTE | 2022-02-21 20:57 | PC.NURSE ---
Report called to Elizabeth Ribera at [facility].
--- NOTE | 2022-02-21 23:16 | PC.NURSE ---
Pt left with [facility] at [id number].
--- NOTE | 2022-02-21 23:16 | PC.NURSE ---
patient turned over to [facility] @ this time.
== END 2022-02-21 23:16 | disposition short-term general hospital (02) | DRG 853 ==
LOC: ER 18:03 → 2ND 18:26
PROVIDERS: Emergency Medicine; Internal Medicine Pulmonary Disease; Nurse Practitioner Family; Surgery; Admitting Provider Family Medicine; Emergency Provider Emergency Medicine; PCP Internal Medicine; Visit Provider Family Medicine
PROC: 5A1935Z Respiratory Ventilation, Less than 24 Consecutive Hours (ICD-10-PCS; principal; 2022-02-21 11:00)
PROC: 0KBP0ZZ Excision of Left Hip Muscle, Open Approach (ICD-10-PCS; principal; 2022-02-21 12:30)
DX: A41.9 Sepsis, unspecified organism (principal); L89.323 Pressure ulcer of left buttock, stage 3; J96.21 Acute and chronic respiratory failure with hypoxia; R65.21 Severe sepsis with septic shock; I46.9 Cardiac arrest, cause unspecified; I96 Gangrene, not elsewhere classified; L02.31 Cutaneous abscess of buttock; G82.20 Paraplegia, unspecified; L89.152 Pressure ulcer of sacral region, stage 2; E11.9 Type 2 diabetes mellitus without complications; E78.5 Hyperlipidemia, unspecified; I10 Essential (primary) hypertension; Z99.3 Dependence on wheelchair
CPT/HCPCS: 31500; 94002; 11043; 11046; 31624; 11042 ×2; 11045 ×5; 36415; 36569; 71045; 73502; 80048; 80053; 80202; 81001; 82803; 82962; 83605; 83690; 84484; 85007; 85025; 87040; 87070; 87077; 87186; 87205; 93005; 93306; 93970; 97162; 97166; 99152; 99285; C1751; C9803; J2704; U0003; U0005

== ENCOUNTER → 2022-12-19 08:29 | Outpatient (CLI) | payer MEDICAID, SELFPAY ==
[2022-12-19 08:38] LABS: Microscopic, Urine URINE MICROSCOPIC (MICROSCOPIC)
[2022-12-19 09:15] LABS: Basophils % 0.6 % (0.1-2.0); Eosinophils # 0.1 K/mm3 (0.0-0.4); Eosinophils % 2.4 % (0.1-12.0); Hemoglobin 11.4 g/dL (12.2-16.2); Lymphocytes # 1.2 K/mm3 (0.7-4.5); Lymphocytes % 21.7 % (10-50); Mean Corpuscular HGB Conc 33.6 g/dL (31.8-35.4); Mean Corpuscular Hemoglobin 29.2 pg (27.0-31.2); Mean Platelet Volume 8.5 fl (7.4-10.4); Monocytes # 0.2 K/mm3 (0.1-1.0); Monocytes % 4.2 % (1.7-9.3); Neutrophils # 3.8 K/mm3 (1.8-7.8); Platelet Count 189 K/mm3 (142-424); Red Cell Distribution Width 14.3 % (11.5-17.5); White Blood Count 5.4 K/mm3 (4.8-10.8)
[2022-12-19 09:25] LABS: Appearance,Urine CLEAR (Clear); Bilirubin,Urine Negative (Negative); Blood, Urine Negative (Negative); Color,Urine YELLOW (Yellow); Glucose,Urine (UA) Negative (Negative); Ketones,Urine Negative (Negative); Leukocyte Esterase,Urine Negative (Negative); Nitrate,Urine POSITIVE (Negative); Protein,Urine 1+ (Negative); Specific Gravity, Urine 1.015 (1.005-1.030); Urobilinogen,Urine 0.2 EU/dl (0.2)
[2022-12-19 09:37] LABS: Creatinine,Urine Random 46 mg/dL (Not Estab.)
[2022-12-19 09:38] LABS: Bacteria,Urine 3+ /lpf; Squamous Epithelial Cell,Urine Occasional #/hpf (0-5)
[2022-12-19 09:50] LABS: Chloride 105 mmol/L (98-107); Sodium 140 mmol/L (136-145)
[2022-12-19 09:51] LABS: Potassium 4.3 mmoL/L (3.5-5.1)
[2022-12-19 09:53] LABS: Anion Gap 15.3 mEq/L (5-15); Blood Urea Nitrogen 46 mg/dl (7-17); Carbon Dioxide 24 mmol/L (22.0-30.0); Estimated Glomerular Filt Rate 42 ml/min (>60); GFR (African American) 50 ML/MIN (>60); Iron 64 ug/dL (37-170)
[2022-12-19 09:54] LABS: Glucose 170 mg/dl (74-100); Phosphorous 3.9 mg/dl (2.5-4.5)
[2022-12-19 10:02] LABS: Total Iron Binding Capacity 266 ug/dL (265-497)
[2022-12-19 10:29] LABS: Ferritin 191 ng/ml (11.1-264)
== END ==
PROVIDERS: PCP Internal Medicine; Visit Provider Hospitalist
DX: N18.32 Chronic kidney disease, stage 3b (principal); D64.9 Anemia, unspecified
CPT/HCPCS: 36415; 80069; 81001; 82570; 82728; 83540; 83550; 84155; 85025; 87086; 87088; 87186

== ENCOUNTER → 2023-01-20 14:41 | Outpatient (CLI) | payer MEDICAID, SELFPAY ==
[2023-01-20 15:11] LABS: Basophils # 0.1 K/mm3 (0-0.2); Basophils % 0.8 % (0.1-2.0); Eosinophils # 0.1 K/mm3 (0.0-0.4); Hematocrit 34.4 % (37.0-47.0); Hemoglobin 11.5 g/dL (12.2-16.2); Lymphocytes # 1.9 K/mm3 (0.7-4.5); Mean Corpuscular HGB Conc 33.4 g/dL (31.8-35.4); Mean Corpuscular Hemoglobin 29.3 pg (27.0-31.2); Mean Corpuscular Volume 87.7 fl (81-99); Mean Platelet Volume 8.5 fl (7.4-10.4); Monocytes # 0.4 K/mm3 (0.1-1.0); Monocytes % 5.3 % (1.7-9.3); Neutrophils # 4.8 K/mm3 (1.8-7.8); Platelet Count 181 K/mm3 (142-424); Red Blood Count 3.93 M/mm3 (4.20-5.40); Red Cell Distribution Width 14.2 % (11.5-17.5); White Blood Count 7.3 K/mm3 (4.8-10.8)
[2023-01-20 16:06] LABS: Erythrocyte Sedimentation Rate 71 mm/hr (0-30)
[2023-01-20 16:11] LABS: Chloride 98 mmol/L (98-107); Sodium 141 mmol/L (136-145)
[2023-01-20 16:12] LABS: Potassium 3.7 mmoL/L (3.5-5.1)
[2023-01-20 16:14] LABS: Alanine Aminotransferase 22 U/L (12-78); Albumin Level 4.2 g/dl (3.5-5.0); Albumin/Globulin Ratio 1.4 (1.1-1.8); Alkaline Phosphatase 53 U/L (38-126); Anion Gap 17.7 mEq/L (5-15); Aspartate Amino Transferase 25 U/L (14-36); Bilirubin,Total 0.5 mg/dl (0.2-1.3); Blood Urea Nitrogen 42 mg/dl (7-17); Calcium 9.2 mg/dl (8.4-10.2); Carbon Dioxide 29 mmol/L (22.0-30.0); Estimated Glomerular Filt Rate 46 ml/min (>60); GFR (African American) 55 ML/MIN (>60); Total Protein,Serum 7.2 g/dl (6.3-8.2)
[2023-01-20 16:20] LABS: C-Reactive Protein 1.5 mg/L (0-4)
[2023-01-20 16:40] LABS: Glucose 31 mg/dl (74-100)
[2023-01-22 15:13] LABS: Hemoglobin A1C 5.3 % (4.0-6.0)
== END ==
PROVIDERS: PCP Internal Medicine; Visit Provider Internal Medicine
DX: L08.9 Local infection of the skin and subcutaneous tissue, unspecified (principal); L89.92 Pressure ulcer of unspecified site, stage 2; N19 Unspecified kidney failure; E11.21 Type 2 diabetes mellitus with diabetic nephropathy; Z79.84 Long term (current) use of oral hypoglycemic drugs
CPT/HCPCS: 36415; 80053; 83036; 85025; 85651; 86140; 87040; 87070; 87077; 87186; 87205

== ENCOUNTER → 2023-01-20 16:57 | Outpatient (CLI) | payer MEDICAID, SELFPAY | PROVIDERS: PCP Internal Medicine; Visit Provider Internal Medicine | DX: L08.9 Local infection of the skin and subcutaneous tissue, unspecified (principal); L89.92 Pressure ulcer of unspecified site, stage 2 ==

== ENCOUNTER → 2023-01-22 13:25 | Outpatient (CLI) | payer MEDICAID, SELFPAY ==
[2023-01-22 13:32] LABS: Microscopic, Urine URINE MICROSCOPIC (MICROSCOPIC)
[2023-01-22 14:34] LABS: Appearance,Urine CLEAR (Clear); Bilirubin,Urine Negative (Negative); Blood, Urine TRACE-I (Negative); Color,Urine YELLOW (Yellow); Glucose,Urine (UA) Negative (Negative); Ketones,Urine Negative (Negative); Leukocyte Esterase,Urine TRACE (Negative); Nitrate,Urine Negative (Negative); Protein,Urine 2+ (Negative); Urobilinogen,Urine 0.2 EU/dl (0.2)
[2023-01-22 14:58] LABS: RBC,Urine Occasional #/hpf (0-3); Squamous Epithelial Cell,Urine Occasional #/hpf (0-5); WBC,Urine Occasional #/hpf (0-3)
== END ==
PROVIDERS: PCP Internal Medicine; Visit Provider Internal Medicine
DX: L08.9 Local infection of the skin and subcutaneous tissue, unspecified (principal); L89.92 Pressure ulcer of unspecified site, stage 2; E11.21 Type 2 diabetes mellitus with diabetic nephropathy; Z79.84 Long term (current) use of oral hypoglycemic drugs
CPT/HCPCS: 81001

== ENCOUNTER 2023-02-03 08:00 | Outpatient (RCR) | payer MEDICAID, OTHER, SELFPAY | END 2023-02-03 08:05 | disposition home or self-care (01) | LOC: PT 08:00 | PROVIDERS: Visit Provider Internal Medicine | DX: L89.322 Pressure ulcer of left buttock, stage 2 (principal) | CPT/HCPCS: 97164; 97597 ==

== ENCOUNTER 2023-02-26 15:00 | Outpatient (RCR) | payer MEDICAID, SELFPAY ==
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
--- NOTE | 2023-01-27 15:32 | HMH.RHREAS ---
Rehab Reassessment Rehab OP Re-assessment Start: 01/27/23 14:03 Freq: Status: Active Protocol: Document 01/27/23 14:27 JONNY (Rec: 01/27/23 15:31 JONNY [id number]) E-signed By Lavonne Contreras PT Rehab Re-assessment Subjective Subjective Pt reports she feels 85-90% improved since starting PT in regrds to UE strength and endurance. Pt reports she is compliant with her HEP and using resistance bands at home each day. Pt reports her right hand is starting to hurt more along the thumb and palm and has been getting tighter . Pt reports she has an appointment with her PCP tomorrow. Objective Objective Notes RUE MMT: 01/02 grossly LUT MMT: 01/02 grossly Assessment Progress Assessment Progressing as Expected Assessment Notes Pt has attended 7 PT visits consisting of aerobic exercise , UE strengthening, and dynamic balance exercises with good tolerance. Pt met all PT goals and is appropriate to d /c to independent HEP. Pt has right hand contractures and would likely benefit from seeing a hand specialist for possible splint to assist with w/c navigation and ADLs. Patient goals met ST/4 LT/4 Goals Not Met n/a Revised Goals n/a Plan Plan Discharge to independent HEP Frequency of Therapy 0 Duration of therapy 0 Time and Billing Re-Eval Time 8 Re-Eval Billing Units 1 PHYSICIAN CERTIFICATION: I certify the specified therapy services for Alyssa Azul are required, authorized, and reviewed every 30 days.
== END 2023-02-26 15:05 | disposition home or self-care (01) ==
LOC: PT 15:00
PROVIDERS: PCP Internal Medicine; Visit Provider Internal Medicine
DX: G82.20 Paraplegia, unspecified (principal); Y93.B9 Activity, other involving muscle strengthening exercises
CPT/HCPCS: 97110; 97163; 97164; 97530; 97535

== ENCOUNTER → 2023-03-18 13:43 | Outpatient (CLI) | payer OTHER, SELFPAY ==
[2023-03-18 13:56] LABS: Microscopic, Urine URINE MICROSCOPIC (MICROSCOPIC)
[2023-03-18 14:48] LABS: Basophils % 0.4 % (0.1-2.0); Eosinophils # 0.1 K/mm3 (0.0-0.4); Eosinophils % 2.1 % (0.1-12.0); Hematocrit 32.1 % (37.0-47.0); Hemoglobin 10.4 g/dL (12.2-16.2); Lymphocytes # 1.4 K/mm3 (0.7-4.5); Lymphocytes % 23.9 % (10-50); Mean Corpuscular HGB Conc 32.5 g/dL (31.8-35.4); Mean Corpuscular Hemoglobin 28.4 pg (27.0-31.2); Mean Corpuscular Volume 87.3 fl (81-99); Mean Platelet Volume 7.9 fl (7.4-10.4); Monocytes # 0.3 K/mm3 (0.1-1.0); Monocytes % 5.4 % (1.7-9.3); Neutrophils # 3.9 K/mm3 (1.8-7.8); Neutrophils % 68.2 % (37.0-80.0); Platelet Count 154 K/mm3 (142-424); Red Blood Count 3.67 M/mm3 (4.20-5.40); Red Cell Distribution Width 13.7 % (11.5-17.5); White Blood Count 5.8 K/mm3 (4.8-10.8)
[2023-03-18 14:49] LABS: Appearance,Urine CLEAR (Clear); Bilirubin,Urine Negative (Negative); Blood, Urine Negative (Negative); Color,Urine YELLOW (Yellow); Glucose,Urine (UA) Negative (Negative); Ketones,Urine Negative (Negative); Leukocyte Esterase,Urine Negative (Negative); Nitrate,Urine POSITIVE (Negative); Protein,Urine 1+ (Negative); Urobilinogen,Urine 0.2 EU/dl (0.2)
[2023-03-18 15:11] LABS: Anion Gap 11.8 mEq/L (5-15); Blood Urea Nitrogen 39 mg/dl (7-17); Calcium 8.9 mg/dl (8.4-10.2); Carbon Dioxide 29 mmol/L (22.0-30.0); Chloride 104 mmol/L (98-107); Estimated Glomerular Filt Rate 42 ml/min (>60); GFR (African American) 50 ML/MIN (>60); Glucose 146 mg/dl (74-100); Phosphorous 4.9 mg/dl (2.5-4.5); Potassium 3.8 mmoL/L (3.5-5.1); Sodium 141 mmol/L (136-145)
[2023-03-18 15:14] LABS: Bacteria,Urine 2+ /lpf; Squamous Epithelial Cell,Urine Occasional #/hpf (0-5)
[2023-03-18 16:01] LABS: Creatinine,Urine Random 33 mg/dL (Not Estab.)
== END ==
PROVIDERS: PCP Internal Medicine; Visit Provider Hospitalist
DX: E11.21 Type 2 diabetes mellitus with diabetic nephropathy (principal); I10 Essential (primary) hypertension; Z79.84 Long term (current) use of oral hypoglycemic drugs
CPT/HCPCS: 36415; 80069; 81001; 82570; 84155; 85025; 87086; 87088; 87186

== ENCOUNTER → 2023-04-08 07:00 | Outpatient (CLI) | payer OTHER, SELFPAY ==
[2023-04-08 07:48] LABS: Basophils % 0.7 % (0.1-2.0); Eosinophils # 0.1 K/mm3 (0.0-0.4); Eosinophils % 2.1 % (0.1-12.0); Hematocrit 35.8 % (37.0-47.0); Hemoglobin 11.8 g/dL (12.2-16.2); Lymphocytes # 1.4 K/mm3 (0.7-4.5); Mean Corpuscular HGB Conc 32.9 g/dL (31.8-35.4); Mean Corpuscular Hemoglobin 29.4 pg (27.0-31.2); Mean Corpuscular Volume 89.5 fl (81-99); Mean Platelet Volume 8.6 fl (7.4-10.4); Monocytes # 0.3 K/mm3 (0.1-1.0); Monocytes % 5.2 % (1.7-9.3); Neutrophils # 4.1 K/mm3 (1.8-7.8); Platelet Count 158 K/mm3 (142-424); Red Cell Distribution Width 13.8 % (11.5-17.5)
[2023-04-08 08:14] LABS: Alanine Aminotransferase 24 U/L (12-78); Albumin Level 4.3 g/dl (3.5-5.0); Albumin/Globulin Ratio 1.3 (1.1-1.8); Alkaline Phosphatase 32 U/L (38-126); Anion Gap 14.3 mEq/L (5-15); Aspartate Amino Transferase 40 U/L (14-36); Bilirubin,Total 0.9 mg/dl (0.2-1.3); Blood Urea Nitrogen 46 mg/dl (7-17); Calcium 9.3 mg/dl (8.4-10.2); Carbon Dioxide 30 mmol/L (22.0-30.0); Chloride 102 mmol/L (98-107); Chol/HDL Ratio 3.6 (1-3.5); Cholesterol 112 mg/dl (140-200); Estimated Glomerular Filt Rate 50 ml/min (>60); GFR (African American) 61 ML/MIN (>60); Globulin 3.2 g/dL (1.3-3.2); Glucose 154 mg/dl (74-100); HDL Cholesterol 31 mg/dl (40-60); Potassium 5.3 mmoL/L (3.5-5.1); Sodium 141 mmol/L (136-145); Total Protein,Serum 7.5 g/dl (6.3-8.2); Triglycerides 162 mg/dl (30-150); VLDL Cholesterol 32 mg/dL (0-40)
[2023-04-08 08:25] LABS: Direct LDL Cholesterol 41.04 mg/dL (100-129)
[2023-04-08 08:59] LABS: Hemoglobin A1C 5.8 % (4.0-6.0)
== END ==
PROVIDERS: PCP Internal Medicine; Visit Provider Internal Medicine
DX: E11.21 Type 2 diabetes mellitus with diabetic nephropathy (principal); N18.30 Chronic kidney disease, stage 3 unspecified; K76.0 Fatty (change of) liver, not elsewhere classified; I10 Essential (primary) hypertension; G82.21 Paraplegia, complete; D64.9 Anemia, unspecified; Z98.890 Other specified postprocedural states; Z79.84 Long term (current) use of oral hypoglycemic drugs
CPT/HCPCS: 36415; 80053; 80061; 83036; 85025

== ENCOUNTER → 2023-05-01 13:31 | Outpatient (CLI) | payer OTHER, SELFPAY ==
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
== END ==
PROVIDERS: PCP Internal Medicine; Visit Provider Internal Medicine
DX: R22.1 Localized swelling, mass and lump, neck (principal)
CPT/HCPCS: 70490

== ENCOUNTER 2023-05-12 08:27 | Day surgery (SDC) | payer OTHER, SELFPAY ==
[2023-05-11 10:45] VITALS: BMI 24.2
[2023-05-12] VITALS (8 sets, daily range): BP systolic 121–191; BP diastolic 70–91; PULSE 47–60; RESP 16–19; TEMP 36.2–36.6; O2SAT 95–100
[2023-05-12 10:08] LABS: POC Glucose,Bedside 146 (70-110)
== END 2023-05-12 12:06 | disposition home or self-care (01) ==
PROVIDERS: PCP Internal Medicine; Visit Provider Ophthalmology
PROC: (CPT 66984; principal; 2023-05-12 11:00)
DX: E11.36 Type 2 diabetes mellitus with diabetic cataract (principal); H25.9 Unspecified age-related cataract
CPT/HCPCS: 66984; 82962; V2632

== ENCOUNTER → 2023-07-01 16:42 | Outpatient (CLI) | payer OTHER, SELFPAY | PROVIDERS: PCP Internal Medicine; Visit Provider Internal Medicine | DX: L89.322 Pressure ulcer of left buttock, stage 2 (principal); B96.89 Other specified bacterial agents as the cause of diseases classified elsewhere | CPT/HCPCS: 87070; 87205 ==

== ENCOUNTER 2023-07-16 14:58 | Outpatient (RCR) | payer OTHER, SELFPAY | END 2023-07-16 16:00 | disposition home or self-care (01) | LOC: PT 14:58 | PROVIDERS: PCP Internal Medicine; Visit Provider Internal Medicine | DX: L89.321 Pressure ulcer of left buttock, stage 1 (principal) | CPT/HCPCS: 97163 ==

== ENCOUNTER 2023-09-07 13:53 | Outpatient (CLI) | payer OTHER, SELFPAY ==
[2023-09-07 13:59] LABS: Microscopic, Urine URINE MICROSCOPIC (MICROSCOPIC)
[2023-09-07 14:13] LABS: Appearance,Urine CLEAR (Clear); Bilirubin,Urine Negative (Negative); Blood, Urine TRACE-I (Negative); Color,Urine YELLOW (Yellow); Glucose,Urine (UA) Negative (Negative); Ketones,Urine Negative (Negative); Leukocyte Esterase,Urine 3+ (Negative); Nitrate,Urine POSITIVE (Negative); Protein,Urine 1+ (Negative); Urobilinogen,Urine 0.2 EU/dl (0.2)
[2023-09-07 14:31] LABS: Basophils # 0.1 K/mm3 (0-0.2); Basophils % 0.7 % (0.1-2.0); Eosinophils # 0.1 K/mm3 (0.0-0.4); Eosinophils % 1.5 % (0.1-12.0); Hematocrit 34.6 % (37.0-47.0); Lymphocytes # 1.4 K/mm3 (0.7-4.5); Mean Corpuscular HGB Conc 34.6 g/dL (31.8-35.4); Mean Corpuscular Hemoglobin 30.9 pg (27.0-31.2); Mean Corpuscular Volume 89.1 fl (81-99); Mean Platelet Volume 8.5 fl (7.4-10.4); Monocytes # 0.4 K/mm3 (0.1-1.0); Monocytes % 5.4 % (1.7-9.3); Neutrophils # 5.8 K/mm3 (1.8-7.8); Neutrophils % 74.4 % (37.0-80.0); Platelet Count 166 K/mm3 (142-424); Red Blood Count 3.88 M/mm3 (4.20-5.40); Red Cell Distribution Width 13.8 % (11.5-17.5); White Blood Count 7.8 K/mm3 (4.8-10.8)
[2023-09-07 14:34] LABS: Creatinine,Urine Random 29 mg/dL (Not Estab.)
[2023-09-07 14:38] LABS: Bacteria,Urine 2+ /lpf; WBC,Urine 50-100 #/hpf (0-3)
[2023-09-07 14:56] LABS: Anion Gap 10.8 mEq/L (5-15); Blood Urea Nitrogen 46 mg/dl (7-17); Calcium 8.7 mg/dl (8.4-10.2); Carbon Dioxide 27 mmol/L (22.0-30.0); Chloride 100 mmol/L (98-107); Estimated Glomerular Filt Rate 35 ml/min (>60); GFR (African American) 42 ML/MIN (>60); Glucose 171 mg/dl (74-100); Phosphorous 4.2 mg/dl (2.5-4.5); Potassium 3.8 mmoL/L (3.5-5.1); Sodium 134 mmol/L (136-145)
== END 2023-09-07 23:59 ==
LOC: LAB 13:55
PROVIDERS: PCP Internal Medicine; Visit Provider Student in an Organized Health Care Education/Training Program
DX: N18.32 Chronic kidney disease, stage 3b (principal)
CPT/HCPCS: 36415; 80069; 81001; 82570; 84155; 85025; 87086

== ENCOUNTER 2023-10-14 06:55 | Outpatient (CLI) | payer OTHER, SELFPAY ==
[2023-10-14 07:45] LABS: Chloride 104 mmol/L (98-107); Sodium 139 mmol/L (136-145)
[2023-10-14 07:46] LABS: Potassium 3.5 mmoL/L (3.5-5.1)
[2023-10-14 07:48] LABS: Alanine Aminotransferase 24 U/L (12-78); Albumin/Globulin Ratio 1.4 (1.1-1.8); Alkaline Phosphatase 55 U/L (38-126); Anion Gap 9.5 mEq/L (5-15); Aspartate Amino Transferase 25 U/L (14-36); Bilirubin,Total 0.7 mg/dl (0.2-1.3); Blood Urea Nitrogen 38 mg/dl (7-17); Carbon Dioxide 29 mmol/L (22.0-30.0); Cholesterol 154 mg/dl (140-200); Estimated Glomerular Filt Rate 41 ml/min (>60); GFR (African American) 50 ML/MIN (>60); Globulin 2.8 g/dL (1.3-3.2); Total Protein,Serum 6.8 g/dl (6.3-8.2); Triglycerides 222 mg/dl (30-150); VLDL Cholesterol 44 mg/dL (0-40)
[2023-10-14 07:49] LABS: Calcium 8.9 mg/dl (8.4-10.2); Chol/HDL Ratio 4.8 (1-3.5); Glucose 197 mg/dl (74-100); HDL Cholesterol 32 mg/dl (40-60)
[2023-10-14 13:19] LABS: Hemoglobin A1C 6.6 % (4.0-6.0)
[2023-10-14 13:24] LABS: Direct LDL Cholesterol 67.27 mg/dL (100-129)
== END 2023-10-14 23:59 ==
LOC: LAB 06:57
PROVIDERS: PCP Internal Medicine; Visit Provider Internal Medicine
DX: E11.21 Type 2 diabetes mellitus with diabetic nephropathy (principal); I10 Essential (primary) hypertension; N18.30 Chronic kidney disease, stage 3 unspecified; G82.21 Paraplegia, complete; Z79.84 Long term (current) use of oral hypoglycemic drugs
CPT/HCPCS: 36415; 80053; 80061; 83036

== ENCOUNTER 2024-02-23 14:36 | Inpatient (IN) | payer OTHER, SELFPAY ==
[2024-02-23] VITALS (11 sets, daily range): BP systolic 124–162; BP diastolic 56–77; PULSE 58–72; RESP 16–20; TEMP 37.2–38.4; O2SAT 92–96; BMI 24.2; BMI 29.8
--- NOTE | 2024-02-23 15:07 | PC.NURSE ---
Dr. Hunter at [facility] for pt eval
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
--- NOTE | 2024-02-23 15:12 | HMH.EDGENADL ---
Discharge Plan Disposition Patient Disposition: Admitted Clinical Impressions Clinical Impression: Pyelonephritis, JAVIER (acute kidney injury) Discharge ED Provider: Lavonne Hunter General Adult HPI General Chief complaint: Urogenital-Female Stated complaint: urinary symptoms Time Seen by Provider: 02/23/24 15:04 Mode of Arrival: EMS Source of Information: Patient and EMS Limitations: Physical Limitations Description of Symptoms (Recalled from ER Triage Doc. by RN): cloudy urine,fever History of Present Illness HPI narrative: This patient is a 63-year-old female with a history of paraplegia with no sensation from the waist down, urostomy, solitary kidney, CKD 3, chronic pressure wound, and previous admission in the past for severe sepsis in the setting of pneumonia and pressure wound. Patient has that yesterday, she started feeling weak and tired. Today, she noted that she had a fever and her urine from her urostomy tube is very cloudy. She notes she think she has a kidney infection, as this is how it has presented before. She does not have sensation to determine whether or not she has had abdominal pain, flank pain, or other concerns. She denies any sore throat, cough, congestion, or other concerns. Related Data Home Medications Medication Instructions Recorded Confirmed ferrous sulfate 325 mg (65 mg 325 mg PO BID Supplement 07/13/18 05/12/23 iron) tablet omega-3 fatty acids-fish oil 340 1 each PO QID Supplement 11/01/20 05/12/23 mg-1,000 mg capsule bisoprolol fumarate 5 mg tablet 5 mg PO DAILY Hypertension 02/18/22 05/12/23 metformin 500 mg tablet 1,000 mg PO BIDWMEAL Diabetes 02/18/22 05/12/23 pravastatin 40 mg tablet 40 mg PO DAILY Cholesterol 02/18/22 05/12/23 sodium zirconium cyclosilicate 10 See Rx Instructions .Route 05/11/23 02/23/24 gram oral powder packet (Lokelma) .COMPLEX Supplement trazodone 50 mg tablet 50 mg PO HS Insomnia 05/11/23 05/12/23 Previous Rx's Medication Instructions Recorded blood sugar diagnostic #50 ea 02/12/24 Allergies Allergy/AdvReac Type Severity Reaction Status Date / Time No Known Allergies Allergy Verified 05/12/23 09:40 [facility] Disclaimer: The information contained in this section may have been updated after the patient was seen, as this information can be updated by other users. Medical History Urinary tract infection Sleep apnea Asthma Osteoporosis Diabetes mellitus, type 2 History of cataract Hyperlipidemia Hypertension History of anemia Surgical History History of nephrectomy History of urostomy History of section History of hysterectomy Family History Other Family history of diabetes mellitus type II Family history of myocardial infarction Family history of stroke Social History Smoking Status: Never smoker alcohol intake: never substance use type: denies use current occupational status: disabled Travel in the last 8 weeks: None household members: none housing: apartment current occupational exposures/hazards: No caffeine: No ROS Obtained: Yes All systems reviewed & no additional complaints except as documented Physical Exam General General appearance: alert, in no apparent distress and obese Head Head exam: atraumatic and normocephalic Eye Eye exam: Present normal appearance, PERRL and EOMI ENT ENT exam: Present normal exam, normal oropharynx, mucous membranes moist and normal external ear exam Neck Neck exam: Present normal inspection, full ROM and trachea midline; Absent tenderness Chest Chest inspection: Present normal inspection and symmetric chest wall rise; Absent tenderness Respiratory Respiratory exam: Present normal lung sounds bilaterally; Absent respiratory distress, wheezes, stridor or accessory muscle use Cardiovascular Cardiovascular exam: Present regular rate and normal rhythm Abdominal Exam Abdominal exam: Present soft; Absent distention, guarding or rebound Comment: Urostomy in place with cloudy urine in the urostomy bag. Extremities Exam Extremities exam: Present normal capillary refill and other (Chronic atrophy of her lower extremities); Absent edema Back Exam Back exam: Absent tenderness Neurological Exam Neurological exam: Present alert, oriented X3, CN II-XII intact, normal gait and other (At her neurologic baseline with chronic atrophy related to her paraplegia) Psychiatric Psychiatric exam: Present normal affect and normal mood Skin Skin exam: Present warm and dry Medical Decision Making Medical Records Medical records reviewed: Yes I reviewed the patient's medical records. Sagar Inquiry Pt receiving controlled substance: No Vital Signs: 02/23/24 14:37 02/23/24 15:00 02/23/24 16:00 Temperature 101.1 F H Temperature Source Oral Pulse Rate 63 65 Pulse Rate [Right] 71 Respiratory Rate 18 Blood Pressure 136/62 153/74 H Blood Pressure [Right Arm] 131/57 L Blood Pressure Mean [Right Arm] 81 02 Sat by Pulse Oximetry 95 93 L 94 L Oxygen Delivery Method Room Air Room Air 02/23/24 16:31 02/23/24 17:00 02/23/24 17:30 Temperature Temperature Source Pulse Rate 60 63 72 Pulse Rate [Right] Respiratory Rate Blood Pressure 162/68 H 161/77 H 146/62 H Blood Pressure [Right Arm] Blood Pressure Mean [Right Arm] 02 Sat by Pulse Oximetry 92 L 92 L 92 L Oxygen Delivery Method Room Air 02/23/24 18:01 02/23/24 18:31 Temperature Temperature Source Pulse Rate 68 61 Pulse Rate [Right] Respiratory Rate Blood Pressure 137/60 128/56 L Blood Pressure [Right Arm] Blood Pressure Mean [Right Arm] 02 Sat by Pulse Oximetry 94 L 93 L Oxygen Delivery Method Room Air Room Air Lab Data Lab results reviewed: Yes I reviewed the patient's lab results. Lab Results 02/23/24 13:58: SARS-CoV-2 (PCR) Not detected, Influenza A Untype (PCR) Not detected, Influenza Type B (PCR) Not detected 02/23/24 14:40: Urine Color Yellow, Urine Appearance Cloudy, Urine pH 6.0, Ur Specific O'Neals 1.015, Urine Protein 2+, Urine Glucose (UA) Negative, Urine Ketones Negative, Urine Blood 2+, Urine Nitrate Positive, Urine Bilirubin Negative, Urine Urobilinogen 0.2, Ur Leukocyte Esterase 3+ A, Urine RBC 3-5, Urine WBC Tntc, Ur Squamous Epith Cells Occasional, Urine Bacteria 2+ 02/23/24 14:52: WBC 10.2, RBC 3.36 L, Hgb 10.5 L, Hct 31.5 L, MCV 93.8, MCH 31.2, MCHC 33.3, RDW 14.2, Plt Count 177, MPV 9.3, Neut % (Auto) 84.5 H, Lymph % (Auto) 9.7 L, Gaston % (Auto) 4.4, Eos % (Auto) 1.0, Baso % (Auto) 0.5, Neut # (Auto) 8.6 H, Lymph # (Auto) 1.0, Gaston # (Auto) 0.4, Eos # (Auto) 0.1, Baso # (Auto) 0.1, Sodium 132 L, Potassium 3.6, Chloride 98, Carbon Dioxide 25, Anion Gap 12.6, BUN 42 H, Creatinine 1.80 H, Estimated Creat Clear 34, Estimated GFR 28 L, Est GFR ( Amer) 34 L, Glucose 206 H, Lactate 1.6, Calcium 9.2, Total Bilirubin 0.7, AST 26, ALT 27, Alkaline Phosphatase 59, Total Protein 7.3, Albumin 3.9, Globulin 3.4 H, Albumin/Globulin Ratio 1.1 02/23/24 14:52 02/23/24 14:52 Orders (Tests/Meds): ED MEDICATIONS Generic Name Dose Route Start Last Admin Trade Name Freq PRN Reason Stop Dose Admin Acetaminophen 650 mg 02/23/24 17:54 Acetaminophen 325mg Tab PO 03/24/24 17:53 Q4HP PRN Fever or Mild Pain (1-3) Heparin Sodium (Porcine) 5,000 unit 02/23/24 18:00 Heparin Sodium 5,000 Unit/Ml Vial SQ 03/24/24 17:59 Q8H VÍCTOR Morphine Sulfate 2 mg 02/23/24 17:54 Morphine 2mg/Ml Syringe IV 03/24/24 17:53 Q2HP PRN Severe Pain (7-10) Discontinued Medications Generic Name Dose Route Start Last Admin Trade Name Freq PRN Reason Stop Dose Admin Acetaminophen 1,000 mg 02/23/24 15:11 02/23/24 15:34 Acetaminophen 1,000mg/100ml Vial IV 02/23/24 15:12 1,000 mg ONCE ONE Administration Lactated Ringer's 1,000 mls @ 999 mls/hr 02/23/24 15:11 02/23/24 15:33 Lactated Ringer's 1000 Ml Bag IV 02/23/24 16:11 999 mls/hr .Q1H1M ONE Administration Ceftriaxone Sodium 2 gm/ 100 mls @ 200 mls/hr 02/23/24 16:06 02/23/24 16:36 Sodium Chloride IV 02/23/24 16:35 200 mls/hr ONCE ONE Administration Sodium Chloride 1,000 mls @ 999 mls/hr 02/23/24 16:16 02/23/24 16:37 Sod Chlor 0.9% 1000ml Bag IV 02/23/24 17:16 999 mls/hr .Q1H1M ONE Administration Ibuprofen 800 mg 02/23/24 15:11 02/23/24 15:33 Ibuprofen 400 Mg Tablet PO 02/23/24 15:12 800 mg ONCE ONE Administration Iopamidol 75 ml 02/23/24 17:12 02/23/24 17:16 Iopamidol-370 (76%);100ml Bottle IV 02/23/24 17:13 75 ml ONCE ONE Administration Sodium Chloride 10 ml 02/23/24 17:12 02/23/24 17:16 Sodium Chloride 0.9% 10ml Syr (Rad Only) IV 02/23/24 17:13 10 ml ONCE ONE Administration ORDERS Category Date Time Status CT abdomen pelvis w con Stat Cat Scan 02/23/24 16:05 Completed CXR --portable [XR chest portable] Stat Exams 02/23/24 15:11 Completed Basic Metabolic Panel [facility] Lab 02/24/24 06:00 Ordered Basic Metabolic Panel [facility] Lab 02/25/24 06:00 Ordered Basic Metabolic Panel [facility] Lab 02/26/24 06:00 Ordered Complete Blood Count Auto Diff AMLAB Lab 02/24/24 06:00 Ordered Complete Blood Count Auto Diff AMLAB Lab 02/25/24 06:00 Ordered Complete Blood Count Auto Diff AMLAB Lab 02/26/24 06:00 Ordered Complete Blood Count Auto Diff Stat Lab 02/23/24 14:52 Completed Comprehensive Metabolic Panel Stat Lab 02/23/24 14:52 Completed Lactic Acid Stat Lab 02/23/24 14:52 Completed Rapid PCR Covid and Flu A/B Stat Lab 02/23/24 13:58 Completed UA [Urinalysis and Microscopic] Stat Lab 02/23/24 14:40 Completed Blood Culture Stat Micro 02/23/24 15:09 Received Urine Culture Stat Micro 02/23/24 15:09 Received Medical Decision Narrative: In summary, this patient is a 63-year-old female presenting to the Emergency Department for evaluation of fever, fatigue, and cloudy urine in her urostomy. Differential diagnoses considered include but are not limited to pyelonephritis, sepsis, viral syndrome, pneumonia, intra-abdominal infection, dehydration. Ruling out the most morbid conditions drove assessment. It should be noted patient's history includes paraplegia, diabetes, and CKD which may or may not be at goal therapy. This complicates all aspects of care by increasing patient's risk for morbidity. I reviewed patient's past medical records and noted previous admission for sepsis in the setting of sacral wound and pneumonia as per HPI. On exam, the patient is resting comfortably in bed in no acute distress. She is alert and oriented. She does have significantly cloudy urine in her urostomy. She is also febrile, but not tachycardic, tachypneic, or hypoxic. Workup included CBC, CMP, lactic acid, urinalysis, urine culture, chest x-ray, viral swab. Patient was given a bolus of IV fluids as well as IV acetaminophen and oral ibuprofen. I independently interpreted x-ray prior to the radiologist read and noted no acute focal consolidation concerning for pneumonia. Please see their read for final interpretation. Labs were obtained that demonstrated With a creatinine of 1.8. Patient's urine is also concerning for infection, however difficult to definitively determine given that she has an ileal conduit. Urine culture was sent. Clinically she does have a UTI and JAVIER, so she is given IV Rocephin as well as a second bolus of IV fluids. She does not meet sepsis criteria technically, but she was given the equivalent of a sepsis bolus for ideal body weight. On reassessment, patient had good improvement after administration of interventions above. Given her UTI and JAVIER, I did obtain a CT abdomen and pelvis with IV contrast to evaluate given her complicated history and insensate abdomen. She has findings concerning for pyelonephritis. Given that she is high risk based on her history, I feel she would benefit from admission for IV antibiotics and monitoring. I had an interactive discussion with the hospitalist for further evaluation and management. The patient was admitted in stable condition. Critical Care Critical Care Time Critical Care Time: No
[2024-02-23 15:15] LABS: Basophils # 0.1 K/mm3 (0-0.2); Basophils % 0.5 % (0.1-2.0); Eosinophils # 0.1 K/mm3 (0.0-0.4); Hematocrit 31.5 % (37.0-47.0); Hemoglobin 10.5 g/dL (12.2-16.2); Lymphocytes % 9.7 % (10-50); Mean Corpuscular HGB Conc 33.3 g/dL (31.8-35.4); Mean Corpuscular Hemoglobin 31.2 pg (27.0-31.2); Mean Corpuscular Volume 93.8 fl (81-99); Mean Platelet Volume 9.3 fl (7.4-10.4); Monocytes # 0.4 K/mm3 (0.1-1.0); Monocytes % 4.4 % (1.7-9.3); Neutrophils # 8.6 K/mm3 (1.8-7.8); Neutrophils % 84.5 % (37.0-80.0); Platelet Count 177 K/mm3 (142-424); Red Blood Count 3.36 M/mm3 (4.20-5.40); Red Cell Distribution Width 14.2 % (11.5-17.5); White Blood Count 10.2 K/mm3 (4.8-10.8)
[2024-02-23 15:30] LABS: Chloride 98 mmol/L (98-107)
[2024-02-23 15:31] LABS: Potassium 3.6 mmoL/L (3.5-5.1); Sodium 132 mmol/L (136-145)
[2024-02-23 15:33] LABS: Alanine Aminotransferase 27 U/L (12-78); Aspartate Amino Transferase 26 U/L (14-36); Blood Urea Nitrogen 42 mg/dl (7-17); Creatinine Clearance Estimated 34 mL/min (50-200); Estimated Glomerular Filt Rate 28 ml/min (>60); GFR (African American) 34 ML/MIN (>60)
[2024-02-23] MEDS: IBUPROFEN 400 MG TABLET 800 MG PO (15:33)
[2024-02-23] MEDS: LACTATED RINGERS 1000ML 1,000 ML 999 ML IV (15:33)
[2024-02-23 15:34] LABS: Albumin Level 3.9 g/dl (3.5-5.0); Albumin/Globulin Ratio 1.1 (1.1-1.8); Alkaline Phosphatase 59 U/L (38-126); Anion Gap 12.6 mEq/L (5-15); Bilirubin,Total 0.7 mg/dl (0.2-1.3); Calcium 9.2 mg/dl (8.4-10.2); Carbon Dioxide 25 mmol/L (22.0-30.0); Globulin 3.4 g/dL (1.3-3.2); Glucose 206 mg/dl (74-100); Total Protein,Serum 7.3 g/dl (6.3-8.2)
[2024-02-23] MEDS: ACETAMINOPHEN 1,000MG/100ML VIAL 1000 MG IV (15:34)
[2024-02-23 15:39] LABS: Lactic Acid 1.6 mmol/L (0.7-2.1)
[2024-02-23 15:49] LABS: Microscopic, Urine URINE MICROSCOPIC (MICROSCOPIC)
[2024-02-23 15:52] LABS: Appearance,Urine CLOUDY (Clear); Bilirubin,Urine Negative (Negative); Blood, Urine 2+ (Negative); Color,Urine YELLOW (Yellow); Glucose,Urine (UA) Negative (Negative); Ketones,Urine Negative (Negative); Leukocyte Esterase,Urine 3+ (Negative); Nitrate,Urine POSITIVE (Negative); Protein,Urine 2+ (Negative); Specific Gravity, Urine 1.015 (1.005-1.030); Urobilinogen,Urine 0.2 EU/dl (0.2)
[2024-02-23 16:03] LABS: Bacteria,Urine 2+ /lpf; Squamous Epithelial Cell,Urine Occasional #/hpf (0-5); WBC,Urine TNTC #/hpf (0-3)
--- NOTE | 2024-02-23 16:05 | CT_ITS ---
PROCEDURE INFORMATION: Exam: CT Abdomen And Pelvis With Contrast Exam date and time: 02/23/2024 5:19 PM Age: 63 years old Clinical indication: Fever; Additional info: Fever, pyelonephritis, h/o urostomy TECHNIQUE: Imaging protocol: Computed tomography of the abdomen and pelvis with contrast. Radiation optimization: All CT scans at this facility use at least one of these dose optimization techniques: automated exposure control; mA and/or kV adjustment per patient size (includes targeted exams where dose is matched to clinical indication); or iterative reconstruction. Contrast material: ISOVUE; Contrast volume: 75 ml; Contrast route: IV; COMPARISON: No relevant prior studies available. FINDINGS: Lungs: Scattered areas of bronchial wall thickening which are likely chronic inflammatory. A few areas of subpleural reticulation are noted, nonspecific. Liver: Normal. Gallbladder and biliary ducts: The patient is status post cholecystectomy. Pancreas: There is fatty replacement of the pancreas. Spleen: There are multiple calcifications in the spleen most likely reflects small granulomas. There are multiple calcifications in the spleen most likely reflects small granulomas. Adrenal glands: The adrenal glands appear normal. Kidneys and ureters: There is significant right hydroureteronephrosis extending to an inflamed and distended ileal conduit. The residual left ureteral stump is also inflamed and dilated. There is striation of the right nephrogram. Stomach and bowel: There is mild rectal wall thickening which could be related to underdistention. Appendix: No evidence of appendicitis. Intraperitoneal space: Unremarkable. Vasculature: There is atherosclerotic disease of the visualized aorta and its major branch vessels. Lymph nodes: There are mildly prominent but nonenlarged and nonspecific retroperitoneal nodes. Mildly prominent nodes in the central mesentery, nonspecific. Urinary bladder: The patient is status post cystectomy and left nephrectomy within ileal conduit in the right lower quadrant. Reproductive: The patient has undergone prior hysterectomy. Bones/joints: There is diffuse degenerative disease of the visualized osseous structures. There is a dextroscoliotic curvature of the spine. Soft tissues: There are postsurgical changes of the ventral abdominal wall. IMPRESSION: Significant right hydroureteronephrosis extending to an inflamed and distended ileal conduit with suspected associated right pyelonephritis.
[2024-02-23 16:06] LABS: Coronavirus 19, PCR Not Detected (NotDetected); Influenza A, PCR Not Detected (NotDetected); Influenza B, PCR Not Detected (NotDetected)
--- NOTE | 2024-02-23 16:06 | PC.NURSE ---
Rounded on pt. Pillow placed under arm for comfort. No other needs voiced. Call light within reach.
--- NOTE | 2024-02-23 16:33 | PC.NURSE ---
Dr. Hunter at [facility] for pt eval
[2024-02-23] MEDS: CEFTRIAXONE SODIUM 2 GM in 0.9 % SODIUM CHLORIDE 100 ML IV (16:36)
[2024-02-23] MEDS: 0.9 % SODIUM CHLORIDE 1000ML 1,000 ML 999 ML IV (16:37)
--- NOTE | 2024-02-23 17:13 | HMH.ITSTN ---
MD aware GFR results are below recommended for contrast use; GFR results were overrode by ER physician, Dr. Hunter, on a risk vs. benefit situation for this patient.
[2024-02-23] MEDS: IOPAMIDOL-370 (76%);100ML BOTTLE 75 ML IV (17:16)
[2024-02-23] MEDS: SODIUM CHLORIDE 0.9% 10ML SYR (RAD ONLY) 10 ML IV (17:16)
--- NOTE | 2024-02-23 17:55 | PC.NURSE ---
HS aware of admission
--- NOTE | 2024-02-23 18:27 | PC.NURSE ---
Report called to [facility] on Med Surg.
--- NOTE | 2024-02-23 19:55 | P.HP_ITS ---
History of Present Illness *Admission Date: 02/23/24 *Reason for visit:: fever *History of present illness: This is a 63-year-old female with a history of longstanding paraplegia with urostomy, solitary kidney, CKD 3, chronic pressure wounds, and who has also been previously admitted in the past for severe sepsis that started febrile, weak and tired. Patient described that symptoms has been developing since yesterday. Today, she noted that she had a fever and her urine from her urostomy tube is very cloudy. She notes she think she has a kidney infection, as this is how it has presented before. She does not have sensation to determine whether or not she has had abdominal pain, flank pain, or other concerns. She denies any sore throat, cough, congestion, or other concerns. Admitted for further management. [facility] Disclaimer: The information contained in this section may have been updated after the patient was seen, as this information can be updated by other users. Medical History (Updated 02/24/24 @ 05:58 by Mino Rider APRN) Urinary tract infection Sleep apnea Asthma Osteoporosis Diabetes mellitus, type 2 History of cataract Hyperlipidemia Hypertension History of anemia Surgical History (Updated 02/24/24 @ 05:57 by Mino Rider APRN) History of nephrectomy History of urostomy History of section History of hysterectomy Family History Other Family history of diabetes mellitus type II Family history of myocardial infarction Family history of stroke Social History (Updated 02/23/24 @ 19:37 by Rizwan Chung RN) Smoking Status: Never smoker alcohol intake: never substance use type: denies use current occupational status: disabled Travel in the last 8 weeks: None household members: none housing: apartment current occupational exposures/hazards: No caffeine: No Review of Systems Review of Systems Review of systems:: pertinent systems reviewed and negative unless documented below Meds Home Medications and Allergies Home Medications Medication Instructions Recorded Confirmed Type ascorbic acid (vitamin C) 500 mg 500 mg PO DAILY 02/23/24 02/23/24 History tablet (Vitamin C) bisoprolol fumarate 5 mg tablet 5 mg PO DAILY 02/23/24 02/23/24 History ferrous sulfate 325 mg (65 mg 325 mg PO TIDWMEAL 02/23/24 02/23/24 History iron) tablet (FeroSul) insulin lispro 100 unit/mL See Protocol SQ BIDWMEAL 02/23/24 02/23/24 History subcutaneous solution (Humalog U-100 Insulin) metformin 500 mg tablet 500 mg PO BIDWMEAL 02/23/24 02/23/24 History metolazone 2.5 mg tablet 2.5 mg PO DAILY 02/23/24 02/23/24 History multivitamin with folic acid 400 1 tab PO DAILY 02/23/24 02/23/24 History mcg tablet (Tab-A-Felice) omega 7-lhx-tcw-fish oil 300 2 cap PO BID 02/23/24 02/23/24 History mg-1,000 mg capsule (Fish Oil) pravastatin 80 mg tablet 80 mg PO HS 02/23/24 02/23/24 History sodium zirconium cyclosilicate 10 10 g PO DIRECTED 02/23/24 02/23/24 History gram oral powder packet (Lokelma) tizanidine 4 mg capsule 4 mg PO HS PRN Muscle spams 02/23/24 02/23/24 History New Prescriptions to Start Prescriptions: Allergies Allergy/AdvReac Type Severity Reaction Status Date / Time No Known Allergies Allergy Verified 05/12/23 09:40 Exam Data for Last 24 hours Vital signs and Labs for Last 24 Hours: Temp Pulse Resp BP Pulse Ox O2 Del Method 99.9 F H 64 18 146/65 H 96 Room Air 02/23/24 19:14 02/23/24 19:14 02/23/24 19:14 02/23/24 19:14 02/23/24 19:14 02/23/24 19:14 Laboratory Results - last 24 hr 02/23/24 13:58: SARS-CoV-2 (PCR) Not detected, Influenza A Untype (PCR) Not detected, Influenza Type B (PCR) Not detected 02/23/24 14:40: Urine Color Yellow, Urine Appearance Cloudy, Urine pH 6.0, Ur Specific [place] 1.015, Urine Protein 2+, Urine Glucose (UA) Negative, Urine Ketones Negative, Urine Blood 2+, Urine Nitrate Positive, Urine Bilirubin Negative, Urine Urobilinogen 0.2, Ur Leukocyte Esterase 3+ A, Urine RBC 3-5, Urine WBC Tntc, Ur Squamous Epith Cells Occasional, Urine Bacteria 2+ 02/23/24 14:52: WBC 10.2, RBC 3.36 L, Hgb 10.5 L, Hct 31.5 L, MCV 93.8, MCH 31.2, MCHC 33.3, RDW 14.2, Plt Count 177, MPV 9.3, Neut % (Auto) 84.5 H, Lymph % (Auto) 9.7 L, [place] % (Auto) 4.4, Eos % (Auto) 1.0, Baso % (Auto) 0.5, Neut # ( Auto) 8.6 H, Lymph # (Auto) 1.0, [place] # (Auto) 0.4, Eos # (Auto) 0.1, Baso # (Auto) 0.1, Sodium 132 L, Potassium 3.6, Chloride 98, Carbon Dioxide 25, Anion Gap 12.6, BUN 42 H, Creatinine 1.80 H, Estimated Creat Clear 34, Estimated GFR 28 L, Est GFR ( Amer) 34 L, Glucose 206 H, Lactate 1.6, Calcium 9.2, Total Bilirubin 0.7, AST 26, ALT 27, Alkaline Phosphatase 59, Total Protein 7.3, Albumin 3.9, Globulin 3.4 H, Albumin/Globulin Ratio 1.1 I & O for Last 24 hours: Intake & Output 02/20/24 02/21/24 02/22/24 02/23/24 23:59 23:59 23:59 23:59 Weight 84.141 kg Constitutional Constitutional: no acute distress, obese and chronically ill appearing *Routine HEENT Exam Head: Present normocephalic Eye: Present EOMI and PERRL ENT: Present mucous membranes moist *Routine Neck Exam Neck: Present supple; Absent lymphadenopathy *Routine Respiratory Exam Respiratory: Present CTA bilaterally *Routine Cardiovascular Exam Cardiovascular: Present RRR *Routine Abdominal Exam Abdominal: Present soft and normoactive bowel sounds; Absent tenderness *Routine Rectal Exam Rectal:: deferred *Routine Genitalia Exam Genitalia:: deferred *Routine Extremities Exam Extremities: Present pulses intact and pallor; Absent cyanosis, clubbing, edema or full ROM *Routine Skin Exam Skin: Present warm; Absent rash *Routine Neurological Exam Neurological: Present alert, oriented X3, CN II-XII intact, sensory deficit and motor deficit; Absent moving all extremities Comments: paraplegic, no sensation waist down H&P: Result Imaging and Cardiology CT scan - pelvis: Status: image reviewed by me, Preliminary report and final report Chest x-ray: Status: image reviewed by me, Preliminary report and final report EKG: Status: image reviewed by me, Preliminary report and final report Assessment and Plan *Assessment and plan (1) Pyelonephritis: Status: Acute Category: Medical Code(s): N12 - Tubulo-interstitial nephritis, not specified as acute or chronic (2) Acute kidney injury superimposed on chronic kidney disease: Status: Acute Category: Medical Code(s): N17.9 - Acute kidney failure, unspecified; N18.9 - Chronic kidney disease, unspecified (3) History of urostomy: Status: Acute Category: Surgical Code(s): Z98.890 - Other specified postprocedural states (4) Hypertension: Status: Acute Qualifiers: Hypertension type: unspecified Qualified Code(s): I10 - Essential (primary) hypertension Category: Medical Code(s): I10 - Essential (primary) hypertension (5) Diabetes mellitus, type 2: Status: Acute Qualifiers: Diabetes mellitus snf insulin use: without intermediate manager use Diabetes mellitus complication status: with other specified complication Qualified Code(s): E11.69 - Type 2 diabetes mellitus with other specified complication Category: Medical Code(s): E11.9 - Type 2 diabetes mellitus without complications (6) Immobile, syndrome paraplegic: Status: Acute Category: Medical Code(s): M62.3 - Immobility syndrome (paraplegic) Plan 63-year-old female with a history of longstanding paraplegia with urostomy, solitary kidney, CKD 3, chronic pressure wounds, and who has also been previously admitted in the past for severe sepsis that started febrile, weak and tired. on arrival Labs were obtained that demonstrated With a creatinine of 1.8. Patient's urine is also concerning for infection, however difficult to definitively determine given that she has an ileal conduit. Urine culture was sent. Clinically she does have a UTI and JAVIER, so she is given IV Rocephin as well as a second bolus of IV fluids. imagining reviewed. there is not signs of pneumonia and does not meet sepsis criteria at this moment. Discussed with ED for admission after bed being requested. agreed for it.Plan -Acute pyelonephritis Acute kidney injury superimposed on chronic kidney disease: History of ilieal urostomy, with solitary kidneys presented with severe dilated hydronephrosis Anemia related to chronic conditions: Admit patient for medical services management Ceftriaxone 2 g IV given at the ER continue 1 g daily UA culture pending Precaution with nephrotoxic medication. Encourage increased p.o. intake and hydration Monitor electrolytes imbalance Repeat CBC CMP in the morning Educated on urostomy self management to avoid infection Monitor vital signs per unit -Diabetes and hypertension: Last A1c 6.6 Hold metformin in the setting of acute kidney injury On insulin 10 units twice daily Sliding scale Resume home medication On bisoprolol, ferrous sulfate, statin Tizanidine -Wheelchair-bound status post paraplegic since childhood. Patient also history of incontinence and longstanding self-management urostomy. Nursing to assess in more for ADLs. Does not need physical therapy as patient independent Continue to monitor and provide supportive care Heparin 5000 units subcu for DVT prophylaxis. On Protonix for GI bleed protection Full code
[2024-02-23 20:11] LABS: POC Glucose,Bedside 159 (70-110)
[2024-02-23] MEDS: HEPARIN SODIUM 5,000 UNIT/ML VIAL 5000 UNIT SQ (20:19)
[2024-02-23] MEDS: ACETAMINOPHEN 325MG TAB 650 MG PO (20:19)
[2024-02-23] MEDS: PATIENT'S OWN HOME MEDICATION (Pravastatin 80 mg tablet) 80 EACH PO (20:19)
[2024-02-24 04:00] VITALS: BP 131/53; PULSE 70; RESP 18; TEMP 37.8; O2SAT 93; BMI 30.3
[2024-02-24] MEDS: ACETAMINOPHEN 325MG TAB 650 MG PO ×3 (04:04→16:22)
[2024-02-24] MEDS: METFORMIN 500MG TABLET 500 MG PO (06:37)
[2024-02-24] MEDS: FERROUS SULFATE 325MG TABLET 325 MG PO ×3 (06:37→16:39)
[2024-02-24 06:42] LABS: Basophils % 0.2 % (0.1-2.0); Chloride 102 mmol/L (98-107); Eosinophils # 0.1 K/mm3 (0.0-0.4); Eosinophils % 0.8 % (0.1-12.0); Hematocrit 29.5 % (37.0-47.0); Lymphocytes # 0.6 K/mm3 (0.7-4.5); Lymphocytes % 5.9 % (10-50); Mean Corpuscular Volume 94.1 fl (81-99); Mean Platelet Volume 8.7 fl (7.4-10.4); Monocytes # 0.4 K/mm3 (0.1-1.0); Monocytes % 4.2 % (1.7-9.3); Neutrophils # 9.2 K/mm3 (1.8-7.8); Neutrophils % 88.8 % (37.0-80.0); Platelet Count 146 K/mm3 (142-424); Potassium 3.9 mmoL/L (3.5-5.1); Red Blood Count 3.14 M/mm3 (4.20-5.40); Red Cell Distribution Width 14.2 % (11.5-17.5); Sodium 134 mmol/L (136-145); White Blood Count 10.3 K/mm3 (4.8-10.8)
[2024-02-24 06:45] LABS: Anion Gap 12.9 mEq/L (5-15); Blood Urea Nitrogen 38 mg/dl (7-17); Calcium 8.5 mg/dl (8.4-10.2); Carbon Dioxide 23 mmol/L (22.0-30.0); Creatinine Clearance Estimated 43 mL/min (50-200); Estimated Glomerular Filt Rate 28 ml/min (>60); GFR (African American) 34 ML/MIN (>60); Glucose 233 mg/dl (74-100)
[2024-02-24] MEDS: humaLOG 100 UNITS/ML 10ML VIAL (SSI) SQ ×4 (06:46→20:40)
[2024-02-24 06:47] LABS: POC Glucose,Bedside 298 (70-110)
[2024-02-24 07:05] LABS: MANUAL DIFFERENTIAL MANUAL DIFFERENTIAL (MANUAL DIFF)
[2024-02-24 07:30] VITALS: BP 155/70; PULSE 67; RESP 22; TEMP 38.6; O2SAT 92
--- NOTE | 2024-02-24 08:02 | HMH.PHAINT1 ---
Pharmacy Intervention Comments: MEDICATION RECONCILIATION COMPLETED ON PATIENT USING EXTERNAL FILL HISTORY FROM PHARMACY. -CARLI SCHULZ, DALJITD
[2024-02-24] MEDS: HEPARIN SODIUM 5,000 UNIT/ML VIAL 5000 UNIT SQ ×2 (08:10→16:39)
[2024-02-24] MEDS: metOLazone 2.5MG TABLET 2.5 MG PO (08:10)
[2024-02-24] MEDS: ASCORBIC ACID 500MG TAB 500 MG PO (08:10)
[2024-02-24] MEDS: BISOPROLOL 5MG TABLET 5 MG PO (08:10)
[2024-02-24 11:05] LABS: POC Glucose,Bedside 237 (70-110)
[2024-02-24] MEDS: CEFTRIAXONE 1 GM 1 GM in 0.9 % SODIUM CHLORIDE 50 ML IV (12:09)
[2024-02-24 13:09] LABS: Lymphocytes % 4 % (10-50); Monocytes % 3 % (2-9); Neutrophils % 93 % (42-76); Platelet Estimate Normal; RBC Morphology Normal; Total Cells Counted 100
--- NOTE | 2024-02-24 15:51 | PC.NURSE ---
Addendum entered by Radha Chavez RN 02/24/24 17:11: PT WOKE UP THIS AFTERNOON WITH TEMP 102.6, BP 186/81, AND O2 SATURATION 88% ON RA. MEDICATED WITH TYLENOL. PT IS NOW ON 2 L OF OXYGEN. NOTIFIED HOSPITALIST. CXR AND LABETALOL ORDERED. Original Note: PT IS RESTING IN BED. ALERT AND ORIENTED X4. EATING AND DRINKING WELL. LUNG SOUNDS CLEAR. ABDOMEN SOFT/NON TENDER WITH ACTIVE BOWEL SOUNDS. UROSTOMY NOTED TO THE RIGHT SIDE. TURNS AND REPOSITIONS SELF IN BED. REDNESS NOTED TO BUTTOCKS. AREA NOTED TO LEFT HIP THAT PT STATED WAS OPEN IN THE PAST AND SHE ALWAYS KEEPS A DRESSING ON IT TO PREVENT REOPENING. TURNS AND REPOSITIONS SELF IN BED. MEDICATED PER OCT WITH TYLENOL FOR FEVER THIS SHIFT. WILL CONTINUE TO MONITOR.
[2024-02-24 16:00] VITALS: BP 186/81; PULSE 86; RESP 17; TEMP 39.2; O2SAT 88
--- NOTE | 2024-02-24 16:32 | XR_ITS ---
PROCEDURE INFORMATION: Exam: XR Chest Exam date and time: 02/24/2024 4:59 PM Age: 63 years old Clinical indication: Shortness of breath; Additional info: SOB TECHNIQUE: Imaging protocol: Radiologic exam of the chest. Views: 1 view. COMPARISON: CR XR CHEST PORTABLE 02/23/2024 3:22 PM FINDINGS: Lungs: There is a dense retrocardiac opacity concerning for pneumonia. Pleural spaces: No large effusion or pneumothorax. Heart/Mediastinum: No evidence of mediastinal widening or cardiac silhouette enlargement; the mediastinum and heart appear within normal limits for contour and size. Vasculature: There are calcifications of the aortic arch. Bones/joints: No evidence of acute osseous abnormalities within the visualized portions of the thoracic spine and ribs. Osseous structures appear appropriate for patient age. Other findings: There is mild central edema. IMPRESSION: There is a dense retrocardiac opacity concerning for pneumonia.
--- NOTE | 2024-02-24 16:35 | EXP.PN ---
Subjective *Date: 02/24/24 *Time: 16:35 Interval history: patient is seen at bedside, denied CP, SOB, N/V Exam Data for Last 24 hours Vital signs and Labs for Last 24 Hours: Temp Pulse Resp BP Pulse Ox O2 Del Method 102.6 F H 86 17 186/81 H 88 L Room Air 02/24/24 16:00 02/24/24 16:00 02/24/24 16:00 02/24/24 16:00 02/24/24 16:00 02/24/24 16:00 Laboratory Results - last 24 hr 02/23/24 13:58: SARS-CoV-2 (PCR) Not detected, Influenza A Untype (PCR) Not detected, Influenza Type B (PCR) Not detected 02/23/24 20:03: POC Glucose 159 H 02/24/24 06:02: WBC 10.3, RBC 3.14 L, Hgb 10.0 L, Hct 29.5 L, MCV 94.1, MCH 32.0 H, MCHC 34.0, RDW 14.2, Plt Count 146, MPV 8.7, Neut % (Auto) 88.8 H, Lymph % (Auto) 5.9 L, [place] % (Auto) 4.2, Eos % (Auto) 0.8, Baso % (Auto) 0.2, Neut # (Auto) 9.2 H, Lymph # (Auto) 0.6 L, [place] # (Auto) 0.4, Eos # (Auto) 0.1, Baso # (Auto) 0.0, Total Counted 100, Neutrophils % (Manual) 93 H, Lymphocytes % (Manual) 4 L, Monocytes % (Manual) 3, Platelet Estimate Normal, RBC Morphology Normal, Sodium 134 L, Potassium 3.9, Chloride 102, Carbon Dioxide 23, Anion Gap 12.9, BUN 38 H, Creatinine 1.80 H, Estimated Creat Clear 43, Estimated GFR 28 L, Est GFR ( Amer) 34 L, Glucose 233 H, Calcium 8.5 02/24/24 06:40: POC Glucose 298 H 02/24/24 10:57: POC Glucose 237 H I & O for Last 24 hours: Intake & Output 02/21/24 02/22/24 02/23/24 02/24/24 23:59 23:59 23:59 23:59 Intake Total 1100 / 1100 360 / 360 Output Total 400 / 700 1450 / 1450 Balance 700 / 400 -1090 / -1090 Weight 84.141 kg 85.332 kg Microbiology Reports for the Last 24 Hours: Microbiology 02/23/24 15:09 Blood Blood Culture - Preliminary NO GROWTH AFTER 24 HOURS 02/23/24 15:09 Urine,Clean Catch Urine Culture - Preliminary Gram Negative Rods Constitutional Constitutional: no acute distress *Routine HEENT Exam Head: Present normocephalic Eye: Present EOMI and PERRL ENT: Present mucous membranes moist *Routine Neck Exam Neck: Present supple; Absent lymphadenopathy *Routine Respiratory Exam Respiratory: Present CTA bilaterally *Routine Cardiovascular Exam Cardiovascular: Present RRR *Routine Abdominal Exam Abdominal: Present soft and normoactive bowel sounds; Absent tenderness *Routine Extremities Exam Extremities: Absent cyanosis, clubbing or edema *Routine Skin Exam Skin: Present warm; Absent rash *Routine Neurological Exam Neurological: Present alert and oriented X3 Assessment and Plan *Assessment and plan (1) Pyelonephritis: Status: Acute Category: Medical Code(s): N12 - Tubulo-interstitial nephritis, not specified as acute or chronic (2) Acute kidney injury superimposed on chronic kidney disease: Status: Acute Category: Medical Code(s): N17.9 - Acute kidney failure, unspecified; N18.9 - Chronic kidney disease, unspecified (3) History of urostomy: Status: Acute Category: Surgical Code(s): Z98.890 - Other specified postprocedural states (4) Hypertension: Status: Acute Qualifiers: Hypertension type: unspecified Qualified Code(s): I10 - Essential (primary) hypertension Category: Medical Code(s): I10 - Essential (primary) hypertension (5) Diabetes mellitus, type 2: Status: Acute Qualifiers: Diabetes mellitus termite exterminator insulin use: without termite exterminator use Diabetes mellitus complication status: with other specified complication Qualified Code(s): E11.69 - Type 2 diabetes mellitus with other specified complication Category: Medical Code(s): E11.9 - Type 2 diabetes mellitus without complications (6) Immobile, syndrome paraplegic: Status: Acute Category: Medical Code(s): M62.3 - Immobility syndrome (paraplegic) Plan 63-year-old female with a history of longstanding paraplegia with urostomy, solitary kidney, CKD 3, chronic pressure wounds, and who has also been previously admitted in the past for severe sepsis that started febrile, weak and tired. on arrival Labs were obtained that demonstrated With a creatinine of 1.8. Patient's urine is also concerning for infection, however difficult to definitively determine given that she has an ileal conduit. Urine culture was sent. Clinically she does have a UTI and JAVIER, so she is given IV Rocephin as well as a second bolus of IV fluids. imagining reviewed. there is not signs of pneumonia and does not meet sepsis criteria at this moment. Discussed with ED for admission after bed being requested. agreed for it.Plan -Acute pyelonephritis Acute kidney injury superimposed on chronic kidney disease: History of ilieal urostomy, with solitary kidneys presented with severe dilated hydronephrosis Anemia related to chronic conditions: Ceftriaxone 2 g IV given at the ER continue 1 g daily UA culture pending Precaution with nephrotoxic medication. Encourage increased p.o. intake and hydration -Diabetes and hypertension: On insulin 10 units twice daily Sliding scale On bisoprolol, ferrous sulfate, statin Tizanidine -Wheelchair-bound status post paraplegic since childhood. Patient also history of incontinence and longstanding self-management urostomy. Nursing to assess in more for ADLs. Does not need physical therapy as patient independent Continue to monitor and provide supportive care Heparin 5000 units subcu for DVT prophylaxis. On Protonix for GI bleed protection Full code
[2024-02-24] MEDS: MULTIVITAMIN TABLET 1 EACH PO (16:39)
[2024-02-24 16:48] LABS: POC Glucose,Bedside 230 (70-110)
[2024-02-24 16:51] VITALS: BP 189/85
[2024-02-24] MEDS: LABETALOL 5MG/ML 20ML MDV 20 MG IV (16:51)
[2024-02-24 17:20] VITALS: BP 166/81
[2024-02-24] MEDS: LEVOFLOXACIN/D5W 750 MG/150 ML 750 MG/150 ML PIGGYBACK 100 MG IV (18:39)
[2024-02-24] MEDS: FUROSEMIDE 40MG/4ML VIAL 40 MG IV (18:39)
[2024-02-24 20:00] VITALS: BP 155/70; PULSE 82; RESP 16; TEMP 37.9; O2SAT 96
[2024-02-24 20:30] LABS: POC Glucose,Bedside 297 (70-110)
[2024-02-24] MEDS: PANTOPRAZOLE 40MG TABLET 40 MG PO (20:42)
[2024-02-24] MEDS: PRAVASTATIN 40MG TAB 80 MG PO (20:42)
--- NOTE | 2024-02-24 20:48 | PC.NURSE ---
ELIZA FROM [facility] CONSULTED. INITIAL DOSE TO BE 2GRAM AND THEN [facility] TO GO FROM THERE.
[2024-02-24] MEDS: CEFEPIME HCL 2 GM in 0.9 % SODIUM CHLORIDE 100 ML IV (20:59)
[2024-02-24] MEDS: VANCOMYCIN HCL 2,000 MG in 0.9 % SODIUM CHLORIDE 250 ML 125 MG IV (21:47)
[2024-02-24] MEDS: VANCOMYCIN CONSULT REQUEST 1 EACH NOTAPPLIC (21:47)
[2024-02-25] MEDS: HEPARIN SODIUM 5,000 UNIT/ML VIAL 5000 UNIT SQ ×3 (00:26→16:42)
[2024-02-25 04:00] VITALS: BP 162/68; PULSE 76; RESP 17; TEMP 37.3; O2SAT 98; BMI 30.2
--- NOTE | 2024-02-25 05:03 | PC.NURSE ---
PATIENT IS A/O X 4. PARAPLEGIC. DENIES PAIN. CONTINUES WITH LOW GRAD TEMPS. UROSTOMY STOMA PINK, CLEAR URINE IN DRAINAGE BAG. FSBSs ELEVATED AND TREATED WITH S/S HUMALOG INSULIN. PATIENT TURS SELF IN BED. MEPILEX DRSG INTACT TO LEFT HIP AREA.
[2024-02-25 05:38] LABS: POC Glucose,Bedside 234 (70-110)
[2024-02-25] MEDS: ONDANSETRON 4MG/2ML VIAL 4 MG IV (05:39)
[2024-02-25] MEDS: humaLOG 100 UNITS/ML 10ML VIAL (SSI) SQ ×4 (05:40→20:47)
[2024-02-25] MEDS: METFORMIN 500MG TABLET 500 MG PO (06:27)
[2024-02-25 06:40] LABS: Basophils % 0.5 % (0.1-2.0); Eosinophils # 0.1 K/mm3 (0.0-0.4); Eosinophils % 0.7 % (0.1-12.0); Hematocrit 28.1 % (37.0-47.0); Hemoglobin 9.9 g/dL (12.2-16.2); Lymphocytes # 0.7 K/mm3 (0.7-4.5); Lymphocytes % 10.5 % (10-50); Mean Corpuscular HGB Conc 35.2 g/dL (31.8-35.4); Mean Corpuscular Hemoglobin 32.1 pg (27.0-31.2); Mean Corpuscular Volume 91.2 fl (81-99); Mean Platelet Volume 8.2 fl (7.4-10.4); Monocytes # 0.4 K/mm3 (0.1-1.0); Monocytes % 5.2 % (1.7-9.3); Neutrophils # 5.7 K/mm3 (1.8-7.8); Neutrophils % 83.2 % (37.0-80.0); Platelet Count 155 K/mm3 (142-424); Red Blood Count 3.08 M/mm3 (4.20-5.40); Red Cell Distribution Width 13.9 % (11.5-17.5); White Blood Count 6.9 K/mm3 (4.8-10.8)
[2024-02-25 07:01] LABS: Chloride 99 mmol/L (98-107)
[2024-02-25 07:02] LABS: Potassium 3.6 mmoL/L (3.5-5.1); Sodium 135 mmol/L (136-145)
[2024-02-25 07:04] LABS: Blood Urea Nitrogen 44 mg/dl (7-17); Creatinine Clearance Estimated 39 mL/min (50-200); Estimated Glomerular Filt Rate 25 ml/min (>60); GFR (African American) 30 ML/MIN (>60)
[2024-02-25 07:05] LABS: Anion Gap 13.6 mEq/L (5-15); Calcium 8.5 mg/dl (8.4-10.2); Carbon Dioxide 26 mmol/L (22.0-30.0); Glucose 204 mg/dl (74-100)
--- NOTE | 2024-02-25 07:36 | P.CONPHA_ITS ---
Pharmacy Consult Date: 02/25/24 Time: 07:36 Referring provider: DR KULKARNI Reason for Consult:: VANCOMYCIN DOSING CONSULT Allergies Allergy/AdvReac Type Severity Reaction Status Date / Time No Known Allergies Allergy Verified 05/12/23 09:40 Home Medications Medication Instructions Recorded Confirmed Type ascorbic acid (vitamin C) 500 mg 500 mg PO DAILY 02/23/24 02/23/24 History tablet (Vitamin C) bisoprolol fumarate 5 mg tablet 5 mg PO DAILY 02/23/24 02/23/24 History ferrous sulfate 325 mg (65 mg 325 mg PO TIDWMEAL 02/23/24 02/23/24 History iron) tablet (FeroSul) insulin lispro 100 unit/mL See Protocol SQ BIDWMEAL 02/23/24 02/23/24 History subcutaneous solution (Humalog U-100 Insulin) metformin 500 mg tablet 500 mg PO DAILY 02/23/24 02/24/24 History metolazone 2.5 mg tablet 2.5 mg PO DAILY 02/23/24 02/23/24 History multivitamin with folic acid 400 1 tab PO DAILY 02/23/24 02/23/24 History mcg tablet (Tab-A-Felice) omega 8-mii-hay-fish oil 300 2 cap PO BID 02/23/24 02/23/24 History mg-1,000 mg capsule (Fish Oil) pravastatin 80 mg tablet 80 mg PO HS 02/23/24 02/23/24 History sodium zirconium cyclosilicate 10 10 g PO MOWEFR 02/23/24 02/24/24 History gram oral powder packet (Lokelma) tizanidine 4 mg capsule 4 mg PO HSP PRN Muscle Spasm 02/23/24 02/24/24 History New Prescriptions to Start Prescriptions: Height: 1.68 m Weight: 85.33 kg Laboratory Results:: Laboratory Results - last 24 hr 02/24/24 06:02: Total Counted 100, Neutrophils % (Manual) 93 H, Lymphocytes % (Manual) 4 L, Monocytes % (Manual) 3, Platelet Estimate Normal, RBC Morphology Normal 02/24/24 10:57: POC Glucose 237 H 02/24/24 16:34: POC Glucose 230 H 02/24/24 20:23: POC Glucose 297 H 02/25/24 05:29: POC Glucose 234 H 02/25/24 06:11: WBC 6.9 D, RBC 3.08 L, Hgb 9.9 L, Hct 28.1 L, MCV 91.2, MCH 32.1 H, MCHC 35.2, RDW 13.9, Plt Count 155, MPV 8.2, Neut % (Auto) 83.2 H, Lymph % (Auto) 10.5, [place] % (Auto) 5.2, Eos % (Auto) 0.7, Baso % (Auto) 0.5, Neut # (Auto) 5.7, Lymph # (Auto) 0.7, [place] # (Auto) 0.4, Eos # (Auto) 0.1, Baso # (Auto) 0.0, Sodium 135 L, Potassium 3.6, Chloride 99, Carbon Dioxide 26, Anion Gap 13.6, BUN 44 H, Creatinine 2.00 H, Estimated Creat Clear 39, Estimated GFR 25 L, Est GFR ( Amer) 30 L, Glucose 204 H, Calcium 8.5 Medical History: Medical History (Updated 02/24/24 @ 05:58 by Mino Rider APRN) Urinary tract infection Sleep apnea Asthma Osteoporosis Diabetes mellitus, type 2 History of cataract Hyperlipidemia Hypertension History of anemia Assessment and Plan Assessment and plan all Dx Assessment and Plan for all problems:: Pharmacokinetic dosing service Objective: Age: 63 yo Serum creatinine: 2 mg/dL Height: 66.1 Inches Weight (kg): 85.33 Diagnosis: UTI Assessment: IBW (kg): 59.53 Dosing wt(kg): 85.33 Estimated Creatinine clearance (ml/min): 27.1 CRCL method: Cockcroft and Gault using ibw(default). Drug selected: Vancomycin Loading dose (mg): 2000 MG Vd (liters): 64.0 (factor used: 0.75 L/kg) Tarik (hr-1): 0.027 Half life (hrs): 25.67 CLvanco=?? 1.728 L/hr Recommended dose: 1500 mg Interval: 36 hrs Infusion time (hrs): 2.0 Predicted peak (mcg/mL): 36.7 Predicted trough (mcg/mL): 14.65 Total body weight is being used for vancomycin dosing. Recommendations: Give Vancomycin 1500 mg q 36 hrs with an expected Cpeak of 36.7 mcg/ml and an expected Ctrough of 14.65 mcg/ml TO START 02/26/24 AT 1000, PATIENT GIVEN LOADING DOSE OF IV VANCOMYCIN 2000 MG 02/24/24 AT 21:47. AUC 0-24 /MARTINA Data: MARTINA 0.5 mcg/mL:?? AUC/MARTINA:? 1157.4 MARTINA 1.0 mcg/mL:?? AUC/MARTINA:? 578.7 --------- MARTINA 1.5 mcg/mL:?? AUC/MARTINA:? 385.8 MARTINA 2.0 mcg/mL:?? AUC/MARTINA:? 289.4 Thank you for the consult
[2024-02-25 08:00] VITALS: BP 152/75; PULSE 63; RESP 19; TEMP 37.4; O2SAT 98
[2024-02-25] MEDS: BISOPROLOL 5MG TABLET 5 MG PO (08:09)
[2024-02-25] MEDS: metOLazone 2.5MG TABLET 2.5 MG PO (08:09)
[2024-02-25] MEDS: ASCORBIC ACID 500MG TAB 500 MG PO (08:09)
[2024-02-25] MEDS: FERROUS SULFATE 325MG TABLET 325 MG PO ×3 (08:09→16:42)
[2024-02-25] MEDS: CEFEPIME HCL 2 GM in 0.9 % SODIUM CHLORIDE 100 ML IV ×2 (08:15→20:47)
--- NOTE | 2024-02-25 10:38 | CA_ITS ---
APPROVED REPORT EXAM: Comprehensive 2D, Doppler, and color-flow Echocardiogram [place] Ribber: Mariam Kaplan CRT Ht: 5 ft 6 in Wt: 188lbs BSA: 1.95 BP: 145/65 mmHg Indications: Shortness of Breath, Diabetes, Hyperlipidemia, Hypertension/HDD 2D Dimensions LA Volume 44.50 mL LA Volume Index 22.30 mL/m2 (M/F) 16-34 M-Mode Dimensions RVDd 1.86 cm (0.9-2.6) LA Diam 2.47 cm (1.9-4.0) LVDd 5.81 cm (3.5-5.7) LVDs 3.87 cm (3.5-5.7) IVSd 1.75 cm (0.6-1.1) PWd 0.95 cm (0.6-1.1) EF (Teich) 61.30% FS 33.40% EDV (Teich) 167.20 mL TAPSE 2.68 (<1.7) ESV (Teich) 64.70 mL LV Diastology E Decel Time 200 (160-240 msec) E/A Ratio 1.43 MED A' 10.80 cm/s LAT A' 7.30 cm/s Aortic Valve AO Peak GR. 8.50 mmHg Mitral Valve MV A Velocity 77.0 (40-130 cm/s) E/A Ratio 1.43 Tricuspid Valve TR P. Velocity 209.00 cm/s RAP Estimate 10.00 mmHg RVSP 27.40 mmHg Left Ventricle The left ventricle is normal size. The left ventricular systolic function is normal. The left ventricular ejection fraction is within the normal range. There is increased LV wall thickness. There is normal LV segmental wall motion. Diastolic function is indeterminate. LVEF is 55%. Right Ventricle Right ventricle is mildly dilated. The right ventricular systolic function is normal. Atria Left atrium is mildly dilated. Right atrium is mildly dilated. The interatrial septum is not well-visualized. Aortic Valve The aortic valve is mildly thickened. There is no aortic valvular stenosis. No aortic regurgitation is present. Mitral Valve The mitral valve is grossly normal in structure. No evidence of mitral valve stenosis. Trace mitral regurgitation. Tricuspid Valve The tricuspid valve leaflets are thin and pliable. Trace tricuspid regurgitation. There is insufficient TR jet to estimate RVSP. Pulmonic Valve The pulmonic valve leaflets are not well-visualized. Trace pulmonic regurgitation. Great Vessels The aortic root is normal in size. The ascending aorta is mildly dilated, measuring 3.8 cm in diameter. IVC is normal in size and collapses >50% with inspiration. Pericardium There is no pericardial effusion. Other Information Study Quality: Technically Difficult Conclusion Technically difficult study due to poor acoustic windows. Normal biventricular systolic function. Mild RV dilation. Mild biatrial dilation. No significant valvular stenosis or regurgitation. The ascending aorta is mildly dilated, measuring 3.8 cm in diameter. Electronically signed by : Lea Freed MD 02/28/2024 21:49:26
[2024-02-25 10:59] LABS: NT Pro Brain Natriuretic Pep. 5010 pg/mL (0-125)
[2024-02-25 11:08] VITALS: BMI 30.2
[2024-02-25 11:09] LABS: POC Glucose,Bedside 284 (70-110)
--- NOTE | 2024-02-25 11:55 | PC.NURSE ---
RA sat above 90%, pt now off O2 and tolerating well.
[2024-02-25 15:59] VITALS: BP 115/61; PULSE 56; RESP 18; TEMP 37; O2SAT 94
[2024-02-25 16:10] LABS: POC Glucose,Bedside 197 (70-110)
[2024-02-25] MEDS: MULTIVITAMIN TABLET 1 EACH PO (16:42)
--- NOTE | 2024-02-25 16:57 | P.PN_ITS ---
Subjective *Date: 02/25/24 *Time: 16:57 Interval history: patient is seen at bedside, denied CP, SOB, N/V Exam Data for Last 24 hours Vital signs and Labs for Last 24 Hours: Temp Pulse Resp BP Pulse Ox O2 Del Method O2 Flow Rate 98.6 F 56 L 18 115/61 94 L Room Air 2 02/25/24 15:59 02/25/24 15:59 02/25/24 15:59 02/25/24 15:59 02/25/24 15:59 02/25/24 15:59 02/25/24 11:00 Laboratory Results - last 24 hr 02/24/24 20:23: POC Glucose 297 H 02/25/24 05:29: POC Glucose 234 H 02/25/24 06:11: WBC 6.9 D, RBC 3.08 L, Hgb 9.9 L, Hct 28.1 L, MCV 91.2, MCH 32.1 H, MCHC 35.2, RDW 13.9, Plt Count 155, MPV 8.2, Neut % (Auto) 83.2 H, Lymph % (Auto) 10.5, [place] % (Auto) 5.2, Eos % (Auto) 0.7, Baso % (Auto) 0.5, Neut # (Auto) 5.7, Lymph # (Auto) 0.7, [place] # (Auto) 0.4, Eos # (Auto) 0.1, Baso # (Auto) 0.0, Sodium 135 L, Potassium 3.6, Chloride 99, Carbon Dioxide 26, Anion Gap 13.6, BUN 44 H, Creatinine 2.00 H, Estimated Creat Clear 39, Estimated GFR 25 L, Est GFR ( Amer) 30 L, Glucose 204 H, Calcium 8.5, NT-Pro-B Natriuret Pep 5010 H 02/25/24 10:59: POC Glucose 284 H 02/25/24 16:03: POC Glucose 197 H I & O for Last 24 hours: Intake & Output 02/22/24 02/23/24 02/24/24 02/25/24 23:59 23:59 23:59 23:59 Intake Total 1100 / 1100 630 / 1370 1300 / 1300 Output Total 400 / 700 4250 / 4250 3500 / 3500 Balance 700 / 400 -3620 / -2880 -2200 / -2200 Weight 84.141 kg 85.332 kg 85.33 kg Microbiology Reports for the Last 24 Hours: Microbiology 02/23/24 15:09 Blood Blood Culture - Preliminary NO GROWTH AFTER 48 HOURS 02/23/24 15:09 Urine,Clean Catch Urine Culture - Final Klebsiella pneumoniae Constitutional Constitutional: no acute distress *Routine HEENT Exam Head: Present normocephalic Eye: Present EOMI and PERRL ENT: Present mucous membranes moist *Routine Neck Exam Neck: Present supple; Absent lymphadenopathy *Routine Respiratory Exam Respiratory: Present CTA bilaterally *Routine Cardiovascular Exam Cardiovascular: Present RRR *Routine Abdominal Exam Abdominal: Present soft and normoactive bowel sounds; Absent tenderness *Routine Extremities Exam Extremities: Absent cyanosis, clubbing or edema *Routine Skin Exam Skin: Present warm; Absent rash *Routine Neurological Exam Neurological: Present alert and oriented X3 Assessment and Plan *Assessment and plan (1) Pyelonephritis: Status: Acute Category: Medical Code(s): N12 - Tubulo-interstitial nephritis, not specified as acute or chronic (2) Acute kidney injury superimposed on chronic kidney disease: Status: Acute Category: Medical Code(s): N17.9 - Acute kidney failure, unspecified; N18.9 - Chronic kidney disease, unspecified (3) History of urostomy: Status: Acute Category: Surgical Code(s): Z98.890 - Other specified postprocedural states (4) Hypertension: Status: Acute Qualifiers: Hypertension type: unspecified Qualified Code(s): I10 - Essential (primary) hypertension Category: Medical Code(s): I10 - Essential (primary) hypertension (5) Diabetes mellitus, type 2: Status: Acute Qualifiers: Diabetes mellitus intermediate manager insulin use: without intermediate manager use Diabetes mellitus complication status: with other specified complication Qualified Code(s): E11.69 - Type 2 diabetes mellitus with other specified complication Category: Medical Code(s): E11.9 - Type 2 diabetes mellitus without complications (6) Immobile, syndrome paraplegic: Status: Acute Category: Medical Code(s): M62.3 - Immobility syndrome (paraplegic) Plan 63-year-old female with a history of longstanding paraplegia with urostomy, solitary kidney, CKD 3, chronic pressure wounds, and who has also been previously admitted in the past for severe sepsis that started febrile, weak and tired. on arrival Labs were obtained that demonstrated With a creatinine of 1.8. Patient's urine is also concerning for infection, however difficult to definitively determine given that she has an ileal conduit. Urine culture was sent. Clinically she does have a UTI and JAVIER, so she is given IV Rocephin as well as a second bolus of IV fluids. imagining reviewed. there is not signs of pneumonia and does not meet sepsis criteria at this moment. Discussed with ED for admission after bed being requested. agreed for it.Plan -Acute pyelonephritis Acute kidney injury superimposed on chronic kidney disease: History of ilieal urostomy, with solitary kidneys presented with severe dilated hydronephrosis Anemia related to chronic conditions: Ceftriaxone 2 g IV given at the ER continue 1 g daily UA culture pending Precaution with nephrotoxic medication. Encourage increased p.o. intake and hydration -Diabetes and hypertension: On insulin 10 units twice daily Sliding scale On bisoprolol, ferrous sulfate, statin Tizanidine -Wheelchair-bound status post paraplegic since childhood. Patient also history of incontinence and longstanding self-management urostomy. Nursing to assess in more for ADLs. Does not need physical therapy as patient independent Continue to monitor and provide supportive care Heparin 5000 units subcu for DVT prophylaxis. On Protonix for GI bleed protection Full code continue IV abx
[2024-02-25 19:52] VITALS: BP 168/65; PULSE 70; RESP 16; TEMP 36.9; O2SAT 94
[2024-02-25] MEDS: PANTOPRAZOLE 40MG TABLET 40 MG PO (20:47)
[2024-02-25] MEDS: PRAVASTATIN 40MG TAB 80 MG PO (20:47)
[2024-02-26] MEDS: HEPARIN SODIUM 5,000 UNIT/ML VIAL 5000 UNIT SQ ×2 (01:09→09:23)
[2024-02-26 04:00] VITALS: BP 140/73; PULSE 62; RESP 16; TEMP 36.8; O2SAT 95; BMI 30.2
--- NOTE | 2024-02-26 04:50 | PC.NURSE ---
Pt is alert and oriented. Urostomy in place, changed by patient this shift. Incontinent of the bowel. Pt has had no complaints, rested well throughout the shift. Flower patch applied to left hip closed wound. Tolerated RA, O2 sat >90%, pt applied CPAP when sleeping. Call light in reach.
[2024-02-26] MEDS: humaLOG 100 UNITS/ML 10ML VIAL (SSI) SQ ×2 (06:20→12:01)
[2024-02-26] MEDS: METFORMIN 500MG TABLET 500 MG PO (06:20)
[2024-02-26 06:34] LABS: Chloride 100 mmol/L (98-107); Potassium 3.5 mmoL/L (3.5-5.1); Sodium 137 mmol/L (136-145)
[2024-02-26 06:37] LABS: Anion Gap 15.5 mEq/L (5-15); Blood Urea Nitrogen 45 mg/dl (7-17); Carbon Dioxide 25 mmol/L (22.0-30.0); Creatinine Clearance Estimated 35 mL/min (50-200); Estimated Glomerular Filt Rate 23 ml/min (>60); GFR (African American) 27 ML/MIN (>60)
[2024-02-26 06:38] LABS: Calcium 8.7 mg/dl (8.4-10.2); Glucose 174 mg/dl (74-100)
[2024-02-26 07:56] VITALS: BP 100/57; PULSE 56; RESP 16; TEMP 36.6; O2SAT 97
[2024-02-26 08:04] LABS: Basophils # 0.1 K/mm3 (0-0.2); Basophils % 1.3 % (0.1-2.0); Eosinophils # 0.2 K/mm3 (0.0-0.4); Eosinophils % 3.2 % (0.1-12.0); Hematocrit 31.1 % (37.0-47.0); Hemoglobin 10.7 g/dL (12.2-16.2); Lymphocytes % 16.7 % (10-50); Mean Corpuscular HGB Conc 34.4 g/dL (31.8-35.4); Mean Corpuscular Hemoglobin 31.4 pg (27.0-31.2); Mean Corpuscular Volume 91.2 fl (81-99); Mean Platelet Volume 8.3 fl (7.4-10.4); Monocytes # 0.4 K/mm3 (0.1-1.0); Monocytes % 7.1 % (1.7-9.3); Neutrophils # 4.3 K/mm3 (1.8-7.8); Neutrophils % 71.7 % (37.0-80.0); Platelet Count 178 K/mm3 (142-424); Red Blood Count 3.41 M/mm3 (4.20-5.40)
[2024-02-26] MEDS: CEFEPIME HCL 1 GM in 0.9 % SODIUM CHLORIDE 50 ML IV (09:23)
[2024-02-26] MEDS: ASCORBIC ACID 500MG TAB 500 MG PO (09:23)
[2024-02-26] MEDS: BISOPROLOL 5MG TABLET 5 MG PO (09:23)
[2024-02-26] MEDS: FERROUS SULFATE 325MG TABLET 325 MG PO ×2 (09:23→12:04)
[2024-02-26] MEDS: metOLazone 2.5MG TABLET 2.5 MG PO (09:24)
--- NOTE | 2024-02-26 12:03 | P.DS_ITS ---
General Admission date:: 02/23/24 Discharge date: 02/26/24 HPI HPI HPI: This is a 63-year-old female with a history of longstanding paraplegia with urostomy, solitary kidney, CKD 3, chronic pressure wounds, and who has also been previously admitted in the past for severe sepsis that started febrile, weak and tired. Patient described that symptoms has been developing since yesterday. Today, she noted that she had a fever and her urine from her urostomy tube is very cloudy. She notes she think she has a kidney infection, as this is how it has presented before. She does not have sensation to determine whether or not she has had abdominal pain, flank pain, or other concerns. She denies any sore throat, cough, congestion, or other concerns. Admitted for further management. Hospital Course Hospital Course Hospital Course: 63-year-old female with a history of longstanding paraplegia with urostomy, alison itary kidney, CKD 3, chronic pressure wounds, and who has also been previously admitted in the past for severe sepsis that started febrile, weak and tired. on arrival Labs were obtained that demonstrated With a creatinine of 1.8. Patient's urine is also concerning for infection, however difficult to definitively determine given that she has an ileal conduit. Urine culture was sent. Clinically she does have a UTI and JAVIER, so she is given IV Rocephin as well as a second bolus of IV fluids. imagining reviewed. there is not signs of pneumonia and does not meet sepsis criteria at this moment. Discussed with ED for admission after bed being requested. agreed for it.Plan -Acute pyelonephritis - improved Acute kidney injury superimposed on chronic kidney disease: - improved patient urine culture came back positive for klebsiella, sensitive to levofloxacin, patient will be dischagred in stable condition with oral antibiotics, patient mentions she will follow up with her PCP. On the date of discharge, the patient reported feeling stable. The patient was found not to be in any acute distress, and no new abnormalities on physical examination. Further, the patient expressed appropriate understanding of, and agreement with, the discharge recommendations, medications, and plan. Time spent 37 mins Exam Data for Last 24 hours Vital signs and Labs for Last 24 Hours: Temp Pulse Resp BP Pulse Ox O2 Del Method O2 Flow Rate 98 F 56 L 16 100/57 L 97 Room Air 2 02/26/24 07:56 02/26/24 07:56 02/26/24 07:56 02/26/24 07:56 02/26/24 07:56 02/26/24 11:00 02/25/24 11:00 Laboratory Results - last 24 hr 02/25/24 16:03: POC Glucose 197 H 02/26/24 05:59: WBC 6.0, RBC 3.41 L, Hgb 10.7 L, Hct 31.1 L, MCV 91.2, MCH 31.4 H, MCHC 34.4, RDW 14.0, Plt Count 178, MPV 8.3, Neut % (Auto) 71.7, Lymph % (Auto) 16.7, [place] % (Auto) 7.1, Eos % (Auto) 3.2, Baso % (Auto) 1.3, Neut # (Auto) 4.3, Lymph # (Auto) 1.0, [place] # (Auto) 0.4, Eos # (Auto) 0.2, Baso # (Auto) 0.1, Sodium 137, Potassium 3.5, Chloride 100, Carbon Dioxide 25, Anion Gap 15.5 H, BUN 45 H, Creatinine 2.20 H, Estimated Creat Clear 35, Estimated GFR 23 L, Est GFR ( Amer) 27 L, Glucose 174 H, Calcium 8.7 I & O for Last 24 hours: Intake & Output 02/23/24 02/24/24 02/25/24 02/26/24 23:59 23:59 23:59 23:59 Intake Total 1100 / 1100 630 / 1370 1660 / 1760 460 / 460 Output Total 400 / 700 4250 / 4250 4500 / 4500 1000 / 1000 Balance 700 / 400 -3620 / -2880 -2840 / -2740 -540 / -540 Weight 84.141 kg 85.332 kg 85.33 kg 85.33 kg Microbiology Reports for the Last 24 Hours: Microbiology 02/23/24 15:09 Blood Blood Culture - Preliminary NO GROWTH AFTER 48 HOURS Constitutional Constitutional: no acute distress *Routine HEENT Exam Head: Present normocephalic Eye: Present EOMI and PERRL ENT: Present mucous membranes moist *Routine Neck Exam Neck: Present supple; Absent lymphadenopathy *Routine Respiratory Exam Respiratory: Present CTA bilaterally *Routine Cardiovascular Exam Cardiovascular: Present RRR *Routine Abdominal Exam Abdominal: Present soft and normoactive bowel sounds; Absent tenderness *Routine Extremities Exam Extremities: Absent cyanosis, clubbing or edema *Routine Skin Exam Skin: Present warm; Absent rash *Routine Neurological Exam Neurological: Present alert and oriented X3 Results Data Completed and Pending Labs on day of discharge: Labs from last 24 hours 02/26/24 02/25/24 05:59 16:03 WBC 6.0 RBC 3.41 L Hgb 10.7 L Hct 31.1 L MCV 91.2 MCH 31.4 H MCHC 34.4 RDW 14.0 Plt Count 178 MPV 8.3 Neut % (Auto) 71.7 Lymph % (Auto) 16.7 [place] % (Auto) 7.1 Eos % (Auto) 3.2 Baso % (Auto) 1.3 Neut # (Auto) 4.3 Lymph # (Auto) 1.0 [place] # (Auto) 0.4 Eos # (Auto) 0.2 Baso # (Auto) 0.1 Sodium 137 Potassium 3.5 Chloride 100 Carbon Dioxide 25 Anion Gap 15.5 H BUN 45 H Creatinine 2.20 H Estimated Creat Clear 35 Estimated GFR 23 L Est GFR ( Amer) 27 L Glucose 174 H POC Glucose 197 H Calcium 8.7 Preliminary micro results at discharge 02/23/24 15:09 Blood Culture - Preliminary Blood NO GROWTH AFTER 48 HOURS DS: Diagnosis Discharge Diagnosis (1) Pyelonephritis: Status: Acute Code(s): N12 - Tubulo-interstitial nephritis, not specified as acute or chronic (2) Acute kidney injury superimposed on chronic kidney disease: Status: Acute Code(s): N17.9 - Acute kidney failure, unspecified; N18.9 - Chronic kidney disease, unspecified (3) History of urostomy: Status: Acute Code(s): Z98.890 - Other specified postprocedural states (4) Hypertension: Status: Acute Code(s): I10 - Essential (primary) hypertension Qualifiers: Hypertension type: unspecified Qualified Code(s): I10 - Essential (primary) hypertension (5) Diabetes mellitus, type 2: Status: Acute Code(s): E11.9 - Type 2 diabetes mellitus without complications Qualifiers: Diabetes mellitus joint terminal attack controller insulin use: without intermediate use Diabetes mellitus complication status: with other specified complication Qualified Code(s): E11.69 - Type 2 diabetes mellitus with other specified complication (6) Immobile, syndrome paraplegic: Status: Acute Code(s): M62.3 - Immobility syndrome (paraplegic) Meds Home Medications and Allergies Home Medications Medication Instructions Recorded Confirmed Type ascorbic acid (vitamin C) 500 mg 500 mg PO DAILY 02/23/24 02/23/24 History tablet (Vitamin C) bisoprolol fumarate 5 mg tablet 5 mg PO DAILY 02/23/24 02/23/24 History ferrous sulfate 325 mg (65 mg 325 mg PO TIDWMEAL 02/23/24 02/23/24 History iron) tablet (FeroSul) insulin lispro 100 unit/mL See Protocol SQ BIDWMEAL 02/23/24 02/23/24 History subcutaneous solution (Humalog U-100 Insulin) metformin 500 mg tablet 500 mg PO DAILY 02/23/24 02/24/24 History metolazone 2.5 mg tablet 2.5 mg PO DAILY 02/23/24 02/23/24 History multivitamin with folic acid 400 1 tab PO DAILY 02/23/24 02/23/24 History mcg tablet (Tab-A-Felice) omega 7-qfp-mty-fish oil 300 2 cap PO BID 02/23/24 02/23/24 History mg-1,000 mg capsule (Fish Oil) pravastatin 80 mg tablet 80 mg PO HS 02/23/24 02/23/24 History sodium zirconium cyclosilicate 10 10 g PO MOWEFR 02/23/24 02/24/24 History gram oral powder packet (Lokelma) tizanidine 4 mg capsule 4 mg PO HSP PRN Muscle Spasm 02/23/24 02/24/24 History New Prescriptions to Start Prescriptions: Allergies Allergy/AdvReac Type Severity Reaction Status Date / Time No Known Allergies Allergy Verified 05/12/23 09:40 Discharge Plan Disposition Patient Disposition: Home, Self-Care Condition: Good Discharge Order Discharge Orders: Discharge Order (Routine); Ordered 02/26/24 Ordered By: Rocio Mcintyre Follow up Plan Follow up with: Reji Cabello MD [Primary Care Provider] - 03/01/24 11:15 am Prescriptions/Medication Reconciliation: Continued metolazone 2.5 mg tablet 2.5 mg PO DAILY Patient Comments: TAKE ONE TABLET BY MOUTH EVERY MORNING FOR BLOOD PRESSURE AND swelling metformin 500 mg tablet 500 mg PO DAILY Patient Comments: TAKE ONE TABLET BY MOUTH ONCE DAILY with a meal bisoprolol fumarate 5 mg tablet 5 mg PO DAILY Patient Comments: TAKE ONE TABLET BY MOUTH EVERY DAY pravastatin 80 mg tablet 80 mg PO HS Patient Comments: TAKE ONE TABLET BY MOUTH EVERY DAY AT BEDTIME ascorbic acid (vitamin C) [Vitamin C] 500 mg tablet 500 mg PO DAILY Patient Comments: TAKE ONE TABLET BY MOUTH EVERY DAY ferrous sulfate [FeroSul] 325 mg (65 mg iron) tablet 325 mg PO TIDWMEAL Patient Comments: TAKE ONE TABLET BY MOUTH THREE TIMES DAILY WITH MEALS insulin lispro [Humalog U-100 Insulin] 100 unit/mL solution See Protocol SQ BIDWMEAL Protocol: Insulin Corrective Low-Dose Regimen Condition: Fingerstick Blood Glucose Dose/Route: Insulin Units Condition: 151-200 mg/dl Dose/Route: 2 unit/SQ Condition: 201-250 mg/dl Dose/Route: 4 units/SQ Condition: 251-300 mg/dl Dose/Route: 6 units/SQ Condition: 301-350 mg/dl Dose/Route: 8 units/SQ Condition: 351-400 mg/dl Dose/Route: 10 units/SQ Condition: 401-450 mg/dl Dose/Route: 12 units/SQ Condition: > 450 mg/dl Dose/Route: CALL MD Protocol Text: Low Intensity Sliding Scale Insulin Patient Comments: INJECT SUBCUTANEOUSLY TWICE DAILY DIRECTED max daily DOSE 100 UNITS PER day tizanidine 4 mg Capsule 4 mg PO HSP PRN (Reason: Muscle Spasm) omega 9-wue-qkz-fish oil [Fish Oil] 300-1,000 mg capsule 2 cap PO BID Patient Comments: TAKE TWO CAPSULES BY MOUTH TWICE DAILY multivitamin with folic acid [Tab-A-Felice] 400 mcg tablet 1 tab PO DAILY Patient Comments: TAKE ONE TABLET BY MOUTH EVERY DAY Lokelma 10 gram Powder In Packet 10 g PO MOWEFR Problem Reconciliation Problems Reviewed?: Yes Patient Discharge Instructions ACTIVITY: Ambulate as tolerated DIET: continue same diet Patient Instructions: DI for Kidney Infection Providers Primary Care Provider: Reji Cabello Admit Provider: Rocio Mcintyre Attending Provider: Rocio Mcintyre
[2024-02-26 12:05] LABS: POC Glucose,Bedside 263 (70-110)
--- NOTE | 2024-02-29 15:29 | SW/DCPLANNER ---
Mike up phone call: patient stated that she is doing well at home and does not have any needs at this time. 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
== END 2024-02-26 15:14 | disposition home or self-care (01) | DRG 690 ==
LOC: ER 17:54 → 2ND 18:01
PROVIDERS: Admitting Provider Internal Medicine; Emergency Provider Emergency Medicine; PCP Internal Medicine; Visit Provider Internal Medicine
DX: N10 Acute pyelonephritis (principal); G82.20 Paraplegia, unspecified; N17.9 Acute kidney failure, unspecified; M81.0 Age-related osteoporosis without current pathological fracture; E11.9 Type 2 diabetes mellitus without complications; M62.3 Immobility syndrome (paraplegic); I12.9 Hypertensive chronic kidney disease with stage 1 through stage 4 chronic kidney disease, or unspecified chronic kidney disease; N18.30 Chronic kidney disease, stage 3 unspecified; Z99.3 Dependence on wheelchair; B96.1 Klebsiella pneumoniae [K. pneumoniae] as the cause of diseases classified elsewhere; Z79.84 Long term (current) use of oral hypoglycemic drugs
CPT/HCPCS: 36415; 71045; 74177; 80048; 80053; 81001; 82962; 83605; 83880; 85007; 85025; 87040; 87086; 87088; 87186; 87636; 93306; 99285; J0131; J0692; J0696; J1644; J1940; J1956; J2405; J3370; J7120; Q9967

== ENCOUNTER 2024-03-01 12:35 | Outpatient (CLI) | payer OTHER, SELFPAY ==
--- OUTSIDE RECORDS SUMMARY | 2024-03-01 12:38 | XMS_ITS | Clinical Summary ---
Author Name Unknown Address [address] [place] [address] Phone Organization [facility] Address [address] [place] [address] Phone Care Team Providers Care Production Service Manager Name Role Phone Gama Encinas MD [ ] Conditions or Problems Problem Name Problem Code Onset Date Status Entry Date Provider Comment Standard Description Annotate Pressure ulcer of left buttock, stage 3 818992464151 [id number] (SNOMED CT) 05/11 Active 05/11 Giulia Jairon Pressure injury of buttock stage III Pressure ulcer of left buttock, stage 2 [id number] 09 (SNOMED CT) 05/11 Active 05/11 Giulia Jairon Pressure injury of left buttock stage II Citrobacter infection B96.89 (ICD-10-CM) 05/11 Active 05/11 Giulia Jairon Other specified bacterial agents as the cause of diseases classified elsewhere MRSA infection [id number] (SNOMED CT) 05/11 Active 05/11 Giulia Jairon Methicillin resistant Staphylococcus aureus infection Corynebacteri um infection B96.89 (ICD-10-CM) 05/11 Active 05/11 Giulia Jairon Other specified bacterial agents as the cause of diseases classified elsewhere Klebsiella infection B96.1 (ICD-10-CM) 05/11 Active 05/11 Giulia Jairon Klebsiella pneumoniae [K. pneumoniae] as the cause of diseases classified elsewhere Urinary tract infection (UTI) 58564343 (SNOMED CT) 05/11 Active 05/11 Giulia Jairon Urinary tract infectious disease Acute renal failure due to dehydration 694662060 (SNOMED CT) 05/11 Active 05/11 Giulia De La O Acute renal failure due to ischemia Anemia in chronic diseases(docu ment disease) D63.8 (ICD-10-CM) 05/11 Active 05/11 Giulia De La O Anemia in other chronic diseases classified elsewhere Obesity due to excess calories E66.09 (ICD-10-CM) 05/11 Active 05/11 Giulia De La O Other obesity due to excess calories DM Type II E11.9 (ICD-10-CM) 05/11 Active 05/11 Giulia De La O Type 2 diabetes mellitus without complications Benign Essential Hypertension 97656661 (SNOMED CT) 05/11 Active 05/11 Giulia De La O Benign hypertension Medications Medication Instructions Start Date Stop Date Generic Name NDC Provider ACETAMINOPHEN 325 MG TABS 2 Tab, PRN, Oral, Q6H acetaminophen [id number] Ana Maria Aguiar BISOPROLOL FUMARATE 5 MG TABS 1 Tab, Oral, Daily bisoprolol fumarate 82237908521 Ana Maria Aguiar CEFUROXIME AXETIL 500 MG TABS 1 Tab, Oral, BID cefuroxime axetil 98951627970 Ana Maria Aguiar FARXIGA 10 MG TABS 1 Tab, Oral, Daily dapagliflozin [id number] Ana Maria Aguiar FERROUS SULFATE 325 (65 Fe) MG TABS 1 Tab, Oral, BID ferrous sulfate [id number] Ana Maria Aguiar PRAVASTATIN SODIUM 40 MG TABS 1 Tab, Oral, At Bedtime pravastatin [id number] Ana Maria Aguiar DOCUSATE SODIUM 100 MG CAPS 1 Cap, PRN, Oral, BID docusate sodium 58885469069 Ana Maria Aguiar FOSAMAX PLUS D 70-2800 MG-UNIT TABS 1 Tab, Oral, Weekly alendronate-josephine min d3 [id number] Ana Maria Aguiar LOVAZA 1 GM CAPS 2 Cap, Oral, BID omega-3 acid ethyl esters [id number] Ana Maria Aguiar METFORMIN HCL 500 MG TABS 1 Tab, Oral, BID metformin [id number] Ana Maria Aguiar MUCINEX 600 MG [id number] 1 Tab, Oral, Q12H guaifenesin [id number] Ana Maria Aguiar PEPCID 20 MG TABS 1 Tab, Oral, Q12H famotidine [id number] Ana Maria Aguiar SENNA 8.6 MG TABS 1 Tab, Oral, At Bedtime sennosides [id number] Ana Maria Aguiar Medications Administered No information available. Allergies, Adverse Reactions, Alerts No information available. Results Date Name Value Unit Range Flag Description Office Visit: rm 13 - TH MEDS REVIEW Done Documenta tion of current medications (procedure) ORALTOBACUSE Never Tobacco smoking status SMOK STATUS Never smoker Toba recruiter account manager smoking status Plan of Care Type Date Detail Pending order Labs Pending order Continue oral an tibiotics Pending order CMP Pending order CBC with Differe ntial Pending order C- reactive prot ein Pending order Sedimentation Ra te (ESR) Pending order Urinalysis with microscopic exam Pending order Urine Culture & Sensitivity Procedures No information available. Vital Signs Date Name Value Unit Description BMI (Body Mass Index) 25.82 kg/m2 Bod y Mass Index (Ratio) Body Temperature 98.6 [degF] temperat ure E&M BP Diastolic 70 mm[Hg] blood pressu re, diastolic BP Systolic 121 mm[Hg] blood pressur e, systolic Heart Rate 50 /min pulse rate Height 66 [in_us] height E&M Respiratory Rate 16 /min respirat ory rate E&M Weight Measured 160.0 [lb_av] weight E& M Immunizations No information available. Advance Directives No information available.
[2024-03-01 12:59] LABS: Basophils # 0.1 K/mm3 (0-0.2); Basophils % 1.3 % (0.1-2.0); Eosinophils # 0.1 K/mm3 (0.0-0.4); Eosinophils % 1.3 % (0.1-12.0); Hematocrit 30.4 % (37.0-47.0); Hemoglobin 10.5 g/dL (12.2-16.2); Lymphocytes # 1.2 K/mm3 (0.7-4.5); Lymphocytes % 14.2 % (10-50); Mean Corpuscular HGB Conc 34.4 g/dL (31.8-35.4); Mean Corpuscular Hemoglobin 31.1 pg (27.0-31.2); Mean Corpuscular Volume 90.4 fl (81-99); Mean Platelet Volume 8.3 fl (7.4-10.4); Monocytes # 0.3 K/mm3 (0.1-1.0); Monocytes % 3.8 % (1.7-9.3); Neutrophils # 6.8 K/mm3 (1.8-7.8); Neutrophils % 79.4 % (37.0-80.0); Platelet Count 198 K/mm3 (142-424); Red Blood Count 3.36 M/mm3 (4.20-5.40); Red Cell Distribution Width 14.2 % (11.5-17.5); White Blood Count 8.6 K/mm3 (4.8-10.8)
[2024-03-01 13:40] LABS: Albumin Level 3.9 g/dl (3.5-5.0); Anion Gap 11.5 mEq/L (5-15); Blood Urea Nitrogen 43 mg/dl (7-17); Calcium 9.1 mg/dl (8.4-10.2); Carbon Dioxide 28 mmol/L (22.0-30.0); Chloride 102 mmol/L (98-107); Estimated Glomerular Filt Rate 33 ml/min (>60); GFR (African American) 39 ML/MIN (>60); Glucose 147 mg/dl (74-100); Phosphorous 3.3 mg/dl (2.5-4.5); Potassium 4.5 mmoL/L (3.5-5.1); Sodium 137 mmol/L (136-145)
== END 2024-03-01 23:59 | disposition home or self-care (01) ==
LOC: LAB 12:36
PROVIDERS: PCP Internal Medicine; Visit Provider Student in an Organized Health Care Education/Training Program
DX: N18.32 Chronic kidney disease, stage 3b (principal)
CPT/HCPCS: 36415; 80069; 85025

== ENCOUNTER 2024-03-02 13:22 | Outpatient (CLI) | payer OTHER, SELFPAY ==
--- OUTSIDE RECORDS SUMMARY | 2024-03-02 13:24 | XMS_ITS | Clinical Summary ---
Author Name Unknown Address [address] [place] [address] Phone Organization [facility] Address [address] [place] [address] Phone Care Team Providers Care Tipple Worker Name Role Phone Gama Encinas MD [ ] Conditions or Problems Problem Name Problem Code Onset Date Status Entry Date Provider Comment Standard Description Annotate Pressure ulcer of left buttock, stage 3 [id number] 62122 (SNOMED CT) 05/11 Active 05/11 Giulia Jairon Pressure injury of buttock stage III Pressure ulcer of left buttock, stage 2 734673596381 09 (SNOMED CT) 05/11 Active 05/11 Giulia Jairon Pressure injury of left buttock stage II Citrobacter infection B96.89 (ICD-10-CM) 05/11 Active 05/11 Giulia Jairon Other specified bacterial agents as the cause of diseases classified elsewhere MRSA infection 366157369 (SNOMED CT) 05/11 Active 05/11 Giulia Jairon Methicillin resistant Staphylococcus aureus infection Corynebacteri um infection B96.89 (ICD-10-CM) 05/11 Active 05/11 Giulia Jairon Other specified bacterial agents as the cause of diseases classified elsewhere Klebsiella infection B96.1 (ICD-10-CM) 05/11 Active 05/11 Giulia Jairon Klebsiella pneumoniae [K. pneumoniae] as the cause of diseases classified elsewhere Urinary tract infection (UTI) 50314975 (SNOMED CT) 05/11 Active 05/11 Giulia Jairon Urinary tract infectious disease Acute renal failure due to dehydration 551720807 (SNOMED CT) 05/11 Active 05/11 Giulia De [...] diabetes mellitus without complications Benign Essential Hypertension 79866518 (SNOMED CT) 05/11 Active 05/11 Giulia De La O Benign hypertension Medications Medication Instructions Start Date Stop Date Generic Name NDC Provider ACETAMINOPHEN 325 MG TABS 2 Tab, PRN, Oral, Q6H acetaminophen 86546154597 Ana Maria Aguiar BISOPROLOL FUMARATE 5 MG TABS 1 Tab, Oral, Daily bisoprolol fumarate 07143102111 Ana Maria Aguiar CEFUROXIME AXETIL 500 MG TABS 1 Tab, Oral, BID cefuroxime axetil [id number] Ana Maria Aguiar FARXIGA 10 MG TABS 1 Tab, Oral, Daily dapagliflozin [id number] Ana Maria Aguiar FERROUS SULFATE 325 (65 Fe) MG TABS 1 Tab, Oral, BID ferrous sulfate 83925454914 Ana Maria Agiuar PRAVASTATIN SODIUM 40 MG TABS 1 Tab, Oral, At Bedtime pravastatin [id number] Ana Maria Aguiar DOCUSATE SODIUM 100 MG CAPS 1 Cap, PRN, Oral, BID docusate sodium 18858353212 Ana Maria Aguiar FOSAMAX PLUS D 70-2800 MG-UNIT TABS 1 Tab, Oral, Weekly alendronate-josephine min d3 [id number] Ana Maria Aguiar LOVAZA 1 GM CAPS 2 Cap, Oral, BID omega-3 acid ethyl esters 60202842235 Ana Maria Aguiar METFORMIN HCL 500 MG TABS 1 Tab, Oral, BID metformin [id number] Ana Maria Aguiar MUCINEX 600 MG [id number] 1 Tab, Oral, Q12H guaifenesin [id number] Ana Maria Aguiar PEPCID 20 MG TABS 1 Tab, Oral, Q12H famotidine [id number] Ana Maria Aguiar SENNA 8.6 MG TABS 1 Tab, Oral, At Bedtime sennosides [id number] Ana Maria Aguiar Medications Administered No information available. Allergies, Adverse Reactions, Alerts No information available. 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
[2024-03-02 13:27] LABS: Microscopic, Urine URINE MICROSCOPIC (MICROSCOPIC)
[2024-03-02 13:49] LABS: Appearance,Urine CLEAR (Clear); Bilirubin,Urine Negative (Negative); Blood, Urine 1+ (Negative); Color,Urine YELLOW (Yellow); Glucose,Urine (UA) Negative (Negative); Ketones,Urine Negative (Negative); Leukocyte Esterase,Urine 2+ (Negative); Nitrate,Urine Negative (Negative); Protein,Urine 1+ (Negative); Urobilinogen,Urine 0.2 EU/dl (0.2)
[2024-03-02 13:59] LABS: Amorphous Sediment,Urine Trace /lpf
[2024-03-02 14:00] LABS: Bacteria,Urine 2+ /lpf; Yeast,Urine 3+ /lpf
[2024-03-02 14:16] LABS: Creatinine,Urine Random 27 mg/dL (Not Estab.)
== END 2024-03-02 23:59 | disposition home or self-care (01) ==
LOC: LAB.DROPOF 13:22
PROVIDERS: PCP Internal Medicine; Visit Provider Student in an Organized Health Care Education/Training Program
DX: N18.32 Chronic kidney disease, stage 3b (principal)
CPT/HCPCS: 81001; 82570; 84156; 87086

== ENCOUNTER 2024-05-30 13:30 | Outpatient (CLI) | payer OTHER, SELFPAY ==
[2024-05-30 14:41] LABS: Albumin Level 3.9 g/dl (3.5-5.0); Anion Gap 9.6 mEq/L (5-15); Blood Urea Nitrogen 42 mg/dl (7-17); Calcium 9.3 mg/dl (8.4-10.2); Carbon Dioxide 27 mmol/L (22.0-30.0); Chloride 102 mmol/L (98-107); Estimated Glomerular Filt Rate 30 ml/min (>60); GFR (African American) 37 ML/MIN (>60); Glucose 170 mg/dl (74-100); Phosphorous 4.2 mg/dl (2.5-4.5); Potassium 3.6 mmoL/L (3.5-5.1); Sodium 135 mmol/L (136-145)
[2024-05-30 14:49] LABS: Basophils # 0.1 K/mm3 (0-0.2); Eosinophils # 0.1 K/mm3 (0.0-0.4); Eosinophils % 2.3 % (0.1-12.0); Hematocrit 35.3 % (37.0-47.0); Hemoglobin 11.7 g/dL (12.2-16.2); Lymphocytes # 1.2 K/mm3 (0.7-4.5); Lymphocytes % 20.5 % (10-50); Mean Corpuscular HGB Conc 33.2 g/dL (31.8-35.4); Mean Corpuscular Hemoglobin 30.7 pg (27.0-31.2); Mean Corpuscular Volume 92.6 fl (81-99); Monocytes # 0.3 K/mm3 (0.1-1.0); Monocytes % 5.3 % (1.7-9.3); Platelet Count 184 K/mm3 (142-424); Red Blood Count 3.82 M/mm3 (4.20-5.40); Red Cell Distribution Width 14.5 % (11.5-17.5); White Blood Count 5.6 K/mm3 (4.8-10.8)
[2024-06-02 19:12] LABS: Cystatin C 2.41 mg/L (0.72-1.16)
== END 2024-05-30 23:59 | disposition home or self-care (01) ==
LOC: LAB 13:31
PROVIDERS: PCP Internal Medicine; Visit Provider Student in an Organized Health Care Education/Training Program
DX: N18.32 Chronic kidney disease, stage 3b (principal)
CPT/HCPCS: 36415; 80069; 82610; 85025

== ENCOUNTER → 2024-06-01 13:52 | Outpatient (REF) | payer OTHER, SELFPAY ==
[2024-06-01 14:08] LABS: Microscopic, Urine URINE MICROSCOPIC (MICROSCOPIC)
[2024-06-01 14:29] LABS: Appearance,Urine CLEAR (Clear); Bilirubin,Urine Negative (Negative); Blood, Urine TRACE-I (Negative); Color,Urine YELLOW (Yellow); Glucose,Urine (UA) Negative (Negative); Ketones,Urine Negative (Negative); Leukocyte Esterase,Urine 1+ (Negative); Nitrate,Urine POSITIVE (Negative); PH,Urine 6.5 (5.0-8.5); Protein,Urine 2+ (Negative); Urobilinogen,Urine 0.2 EU/dl (0.2)
[2024-06-01 14:33] LABS: Collection Time,Urine 24 hours; Total Volume,Urine 1575 mL (600-1600)
[2024-06-01 14:39] LABS: Total Protein 24 Hour,Urine 2489 mg/24 hr (40-90)
[2024-06-01 14:40] LABS: Bacteria,Urine 3+ /lpf; Squamous Epithelial Cell,Urine Occasional #/hpf (0-5)
[2024-06-01 14:40] LABS: Creatinine 24 Hour,Urine 677 mg/24hr (630-2500)
[2024-06-01 14:43] LABS: Creatinine,Urine Random 43 mg/dL (Not Estab.)
[2024-06-01 14:48] LABS: Creatinine,Urine Random 37 mg/dL (Not Estab.)
== END ==
LOC: LAB 13:52
PROVIDERS: Visit Provider Student in an Organized Health Care Education/Training Program
DX: N18.32 Chronic kidney disease, stage 3b (principal); R80.9 Proteinuria, unspecified
CPT/HCPCS: 81001; 82570; 84155; 84156; 87086; 87088; 87186

== ENCOUNTER 2024-06-27 13:50 | Outpatient (CLI) | payer OTHER, SELFPAY ==
[2024-06-27 14:00] LABS: Microscopic, Urine URINE MICROSCOPIC (MICROSCOPIC)
[2024-06-27 14:22] LABS: Basophils # 0.1 K/mm3 (0-0.2); Basophils % 0.8 % (0.1-2.0); Eosinophils # 0.1 K/mm3 (0.0-0.4); Eosinophils % 1.7 % (0.1-12.0); Hematocrit 32.7 % (37.0-47.0); Hemoglobin 11.4 g/dL (12.2-16.2); Lymphocytes # 1.1 K/mm3 (0.7-4.5); Lymphocytes % 13.1 % (10-50); Mean Corpuscular Hemoglobin 30.6 pg (27.0-31.2); Mean Corpuscular Volume 87.5 fl (81-99); Mean Platelet Volume 8.1 fl (7.4-10.4); Monocytes # 0.4 K/mm3 (0.1-1.0); Monocytes % 4.3 % (1.7-9.3); Neutrophils # 6.8 K/mm3 (1.8-7.8); Neutrophils % 80.1 % (37.0-80.0); Platelet Count 170 K/mm3 (142-424); Red Blood Count 3.73 M/mm3 (4.20-5.40); Red Cell Distribution Width 14.2 % (11.5-17.5); White Blood Count 8.4 K/mm3 (4.8-10.8)
[2024-06-27 14:55] LABS: Albumin Level 4.1 g/dl (3.5-5.0); Anion Gap 17.6 mEq/L (5-15); Blood Urea Nitrogen 38 mg/dl (7-17); Carbon Dioxide 28 mmol/L (22.0-30.0); Chloride 96 mmol/L (98-107); Estimated Glomerular Filt Rate 41 ml/min (>60); GFR (African American) 50 ML/MIN (>60); Glucose 162 mg/dl (74-100); Phosphorous 3.6 mg/dl (2.5-4.5); Potassium 3.6 mmoL/L (3.5-5.1); Sodium 138 mmol/L (136-145)
[2024-06-27 15:59] LABS: Appearance,Urine CLEAR (Clear); Bilirubin,Urine Negative (Negative); Blood, Urine TRACE-I (Negative); Color,Urine YELLOW (Yellow); Glucose,Urine (UA) Negative (Negative); Ketones,Urine Negative (Negative); Leukocyte Esterase,Urine 2+ (Negative); Nitrate,Urine POSITIVE (Negative); Protein,Urine 2+ (Negative); Specific Gravity, Urine 1.025 (1.005-1.030); Urobilinogen,Urine 0.2 EU/dl (0.2)
[2024-06-27 16:28] LABS: Creatinine,Urine Random 60 mg/dL (Not Estab.)
[2024-06-27 17:25] LABS: Amorphous Sediment,Urine 1+ /lpf; Squamous Epithelial Cell,Urine Occasional #/hpf (0-5)
[2024-07-01 07:27] LABS: Cystatin C 2.64 mg/L (0.72-1.16)
== END 2024-06-27 23:59 | disposition home or self-care (01) ==
PROVIDERS: PCP Internal Medicine; Visit Provider Student in an Organized Health Care Education/Training Program
DX: E11.21 Type 2 diabetes mellitus with diabetic nephropathy (principal); Z79.4 Long term (current) use of insulin; Z79.84 Long term (current) use of oral hypoglycemic drugs
CPT/HCPCS: 36415; 80069; 81001; 82570; 82610; 84156; 85025; 87086; 87088; 87186

== ENCOUNTER 2024-07-01 13:27 | Observation (INO) | payer OTHER, SELFPAY ==
[2024-07-01] VITALS (13 sets, daily range): BP systolic 122–164; BP diastolic 67–82; PULSE 54–70; RESP 18; TEMP 36.7–36.8; O2SAT 93–99; BMI 28.2; BMI 28.5
[2024-07-01 14:35] LABS: Albumin Level 4.4 g/dl (3.5-5.0); Basophils # 0.1 K/mm3 (0-0.2); Basophils % 0.6 % (0.1-2.0); Chloride 99 mmol/L (98-107); Eosinophils # 0.1 K/mm3 (0.0-0.4); Eosinophils % 1.4 % (0.1-12.0); Hematocrit 36.8 % (37.0-47.0); Hemoglobin 12.5 g/dL (12.2-16.2); Lymphocytes # 1.3 K/mm3 (0.7-4.5); Mean Corpuscular HGB Conc 34.1 g/dL (31.8-35.4); Mean Corpuscular Hemoglobin 30.5 pg (27.0-31.2); Mean Corpuscular Volume 89.6 fl (81-99); Mean Platelet Volume 8.3 fl (7.4-10.4); Monocytes # 0.3 K/mm3 (0.1-1.0); Neutrophils # 6.6 K/mm3 (1.8-7.8); Neutrophils % 79.1 % (37.0-80.0); Platelet Count 168 K/mm3 (142-424); Potassium 3.3 mmoL/L (3.5-5.1); Red Blood Count 4.11 M/mm3 (4.20-5.40); Red Cell Distribution Width 14.3 % (11.5-17.5); Sodium 139 mmol/L (136-145); White Blood Count 8.3 K/mm3 (4.8-10.8)
[2024-07-01 14:38] LABS: Alanine Aminotransferase 26 U/L (12-78); Albumin/Globulin Ratio 1.2 (1.1-1.8); Alkaline Phosphatase 50 U/L (38-126); Anion Gap 12.3 mEq/L (5-15); Aspartate Amino Transferase 29 U/L (14-36); Bilirubin,Total 0.6 mg/dl (0.2-1.3); Blood Urea Nitrogen 48 mg/dl (7-17); Calcium 9.1 mg/dl (8.4-10.2); Carbon Dioxide 31 mmol/L (22.0-30.0); Creatinine Clearance Estimated 45 mL/min (50-200); Estimated Glomerular Filt Rate 32 ml/min (>60); GFR (African American) 39 ML/MIN (>60); Globulin 3.7 g/dL (1.3-3.2); Glucose 197 mg/dl (74-100); Total Protein,Serum 8.1 g/dl (6.3-8.2)
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
[2024-07-01 15:08] LABS: Microscopic, Urine URINE MICROSCOPIC (MICROSCOPIC)
[2024-07-01 15:13] LABS: Appearance,Urine CLEAR (Clear); Bilirubin,Urine Negative (Negative); Blood, Urine TRACE-I (Negative); Color,Urine YELLOW (Yellow); Glucose,Urine (UA) Negative (Negative); Ketones,Urine Negative (Negative); Leukocyte Esterase,Urine 1+ (Negative); Nitrate,Urine POSITIVE (Negative); Protein,Urine 2+ (Negative); Specific Gravity, Urine 1.025 (1.005-1.030); Urobilinogen,Urine 0.2 EU/dl (0.2)
[2024-07-01 15:28] LABS: Bacteria,Urine 4+ /lpf; WBC,Urine TNTC #/hpf (0-3)
[2024-07-01 15:36] LABS: HIV (1&2) Antibody Rapid NONREACTIVE (NONREACTIVE)
--- NOTE | 2024-07-01 16:10 | HMH.PHAINT1 ---
Pharmacy Intervention Comments: MEDICATION RECONCILIATION COMPLETED ON PATIENT USING EXTERNAL FILL HISTORY FROM PHARMACY. -CARLI SCHULZ, DALJITD
[2024-07-01] MEDS: ERTAPENEM SODIUM 1 GM in 0.9 % SODIUM CHLORIDE 50 ML IV (18:00)
--- NOTE | 2024-07-01 18:28 | PC.NURSE ---
Report called to Denise TILLMAN
--- NOTE | 2024-07-01 18:43 | PC.NURSE ---
arrived by w/c from ED
[2024-07-01] MEDS: MEROPENEM 1 GM in 0.9 % SODIUM CHLORIDE 100 ML IV (20:02)
[2024-07-01] MEDS: humaLOG 100 UNITS/ML 10ML VIAL (SSI) SUBCUT (20:04)
[2024-07-01 20:45] LABS: POC Glucose,Bedside 261 (70-110)
--- NOTE | 2024-07-01 22:01 | EXP.HP ---
History of Present Illness *Admission Date: 07/01/24 *Reason for visit:: UTI *History of present illness: Patient is a 64-year-old female who presents to the hospital due to concern for urinary tract infection according to the patient she has lower abdominal pain, per patient she was recently diagnosed with a urinary tract infection and her cultures came back positive for the infection which can only be treated with IV antibiotics. Patient mentions she has history of frequent urinary tract infection. Patient denies chest pain shortness of breath nausea vomiting diarrhea constipation dysuria fevers and chills. [facility] Disclaimer: The information contained in this section may have been updated after the patient was seen, as this information can be updated by other users. Medical History Urinary tract infection Sleep apnea Asthma Osteoporosis Diabetes mellitus, type 2 History of cataract Hyperlipidemia Hypertension History of anemia Surgical History History of nephrectomy History of urostomy History of section History of hysterectomy Family History Other Family history of diabetes mellitus type II Family history of myocardial infarction Family history of stroke Social History (Updated 07/01/24 @ 19:00 by Josselin Mcgraw RN) Smoking Status: Never smoker alcohol intake: never substance use type: denies use current occupational status: disabled Travel in the last 8 weeks: None household members: none housing: apartment current occupational exposures/hazards: No caffeine: No Other Medical History Have you received the Flu Vaccine for this season: Yes Have you received the Pneumonia Vaccine: No Review of Systems Review of Systems Review of systems:: pertinent systems reviewed and negative unless documented below Meds Home Medications and Allergies Home Medications ?Medication ?Instructions ?Recorded ?Confirmed ?Type insulin lispro 100 unit/mL See Protocol SQ BIDWMEAL 02/23/24 07/01/24 History subcutaneous solution (Humalog U-100 Insulin) sodium zirconium cyclosilicate 10 10 g PO MOWEFR 02/23/24 07/01/24 History gram oral powder packet (Lokelma) metolazone 2.5 mg tablet 2.5 mg PO DAILY #90 tabs 04/18/24 07/01/24 Rx blood sugar diagnostic (OneTouch #10 ea 04/20/24 07/01/24 History Verio test strips) bisoprolol fumarate 5 mg tablet 5 mg PO DAILY #90 tabs 06/27/24 07/01/24 Rx ascorbic acid (vitamin C) 500 mg 500 mg PO DAILY 07/01/24 07/01/24 History tablet (Vitamin C) ferrous sulfate 325 mg (65 mg 325 mg PO TID 07/01/24 07/01/24 History iron) tablet (FeroSul) lisinopril 5 mg tablet 5 mg PO DAILY 07/01/24 07/01/24 History metformin 500 mg tablet 500 mg PO DAILY 07/01/24 07/01/24 History multivitamin with folic acid 400 1 tab PO DAILY 07/01/24 07/01/24 History mcg tablet (Tab-A-Felice) omega 0-zgd-ypl-fish oil 300 2 cap PO BID 07/01/24 07/01/24 History mg-1,000 mg capsule (Fish Oil) pravastatin 80 mg tablet 80 mg PO HS 07/01/24 07/01/24 History tizanidine 4 mg capsule 4 mg PO HS 07/02/24 07/02/24 History New Prescriptions to Start Prescriptions: Allergies Allergy/AdvReac Type Severity Reaction Status Date / Time No Known Allergies Allergy Verified 07/01/24 14:09 Exam Data for Last 24 hours Vital signs and Labs for Last 24 Hours: Temp Pulse Resp BP Pulse Ox O2 Del Method 98.3 F 70 18 154/73 H 93 L Room Air 07/01/24 20:00 07/01/24 20:00 07/01/24 20:00 07/01/24 20:00 07/01/24 20:00 07/01/24 21:00 Laboratory Results - last 24 hr 07/01/24 13:47: WBC 8.3, RBC 4.11 L, Hgb 12.5, Hct 36.8 L, MCV 89.6, MCH 30.5, MCHC 34.1, RDW 14.3, Plt Count 168, MPV 8.3, Neut % (Auto) 79.1, Lymph % (Auto) 15.0, [place] % (Auto) 4.0, Eos % (Auto) 1.4, Baso % (Auto) 0.6, Neut # (Auto) 6.6, Lymph # (Auto) 1.3, [place] # (Auto) 0.3, Eos # (Auto) 0.1, Baso # (Auto) 0.1, Sodium 139, Potassium 3.3 L, Chloride 99, Carbon Dioxide 31 H, Anion Gap 12.3, BUN 48 H, Creatinine 1.60 H, Estimated Creat Clear 45, Estimated GFR 32 L, Est GFR ( Amer) 39 L, Glucose 197 H, Calcium 9.1, Total Bilirubin 0.6, AST 29, ALT 26, Alkaline Phosphatase 50, Total Protein 8.1, Albumin 4.4, Globulin 3.7 H, Albumin/Globulin Ratio 1.2, HIV 1&2 Antibody Rapid Nonreactive 07/01/24 15:05: Urine Color Yellow, Urine Appearance Clear, Urine pH 6.0, Ur Specific [place] 1.025, Urine Protein 2+ A, Urine Glucose (UA) Negative, Urine Ketones Negative, Urine Blood Trace-i, Urine Nitrate Positive, Urine Bilirubin Negative, Urine Urobilinogen 0.2, Ur Leukocyte Esterase 1+ A, Urine RBC 5-10, Urine WBC Tntc, Ur Transition Epith Cell 3-5, Urine Bacteria 4+ 07/01/24 20:04: POC Glucose 261 H I & O for Last 24 hours: Intake & Output 06/28/24 06/29/24 06/30/24 07/01/24 23:59 23:59 23:59 23:59 Weight 80.031 kg Constitutional Constitutional: no acute distress *Routine HEENT Exam Head: Present normocephalic Eye: Present EOMI and PERRL ENT: Present mucous membranes moist *Routine Neck Exam Neck: Present supple; Absent lymphadenopathy *Routine Respiratory Exam Respiratory: Present CTA bilaterally *Routine Cardiovascular Exam Cardiovascular: Present RRR *Routine Abdominal Exam Abdominal: Present soft and normoactive bowel sounds; Absent tenderness *Routine Rectal Exam Rectal:: deferred *Routine Genitalia Exam Genitalia:: deferred *Routine Extremities Exam Extremities: Absent cyanosis, clubbing or edema *Routine Skin Exam Skin: Present warm; Absent rash *Routine Neurological Exam Neurological: Present alert and oriented X3 Assessment and Plan *Assessment and plan (1) Urinary tract infection due to extended-spectrum beta lactamase (ESBL) producing Escherichia coli: Status: Acute Category: Medical Code(s): N39.0 - Urinary tract infection, site not specified; B96.29 - Other Escherichia coli [E. coli] as the cause of diseases classified elsewhere; Z16.12 - Extended spectrum beta lactamase (ESBL) resistance (2) Type 2 diabetes mellitus: Status: Acute Category: Medical Code(s): E11.9 - Type 2 diabetes mellitus without complications (3) Hypertension: Status: Acute Qualifiers: Hypertension type: unspecified Qualified Code(s): I10 - Essential (primary) hypertension Category: Medical Code(s): I10 - Essential (primary) hypertension Plan Patient is a 64-year-old female who presents to the hospital due to concern for urinary tract infection according to the patient she has lower abdominal pain, per patient she was recently diagnosed with a urinary tract infection and her cultures came back positive for the infection which can only be treated with IV antibiotics. Patient mentions she has history of frequent urinary tract infection. Patient denies chest pain shortness of breath nausea vomiting diarrhea constipation dysuria fevers and chills. Assessment and plan Urinary tract infection due to ESBL Started on IV meropenem Urine cultures performed at outside facility positive for ESBL Hypokalemia Monitor and replace electrolytes History of CKD stage III Baseline creatinine around 1.5 Creatinine appears around baseline currently Chronic medical conditions Diabetes mellitus-insulin sliding scale Hyperlipidemia Hypertension -Resume home medications DVT prophylaxis-heparin
[2024-07-02 04:00] VITALS: BP 157/79; PULSE 63; RESP 18; TEMP 36.9; O2SAT 94; BMI 28.4
[2024-07-02 05:11] LABS: HCV Ab Non Reactive (Non Reactive)
--- NOTE | 2024-07-02 05:12 | PC.NURSE ---
while rounding on patient, lights were turned on and numerous small bugs were noted to be in bed, on patient, on bed rails, wheelchair, and on the floor. 2 small bugs were collected and sent to lab - Chanda in lab identified as baby roaches. Charge and House aware. Patient was decontaminated. Wheelchair and patient belongings were removed from the building and placed in the barn. patient wanted her wallet to stay in the room, wallet was placed in a sealed biohazard bag on sink counter. Patient educated her belongings will be gave back whenever discharged.
[2024-07-02 05:47] LABS: POC Glucose,Bedside 198 (70-110)
[2024-07-02 06:27] LABS: Basophils # 0.1 K/mm3 (0-0.2); Basophils % 0.9 % (0.1-2.0); Eosinophils # 0.1 K/mm3 (0.0-0.4); Hematocrit 32.7 % (37.0-47.0); Hemoglobin 11.3 g/dL (12.2-16.2); Lymphocytes # 1.3 K/mm3 (0.7-4.5); Mean Corpuscular HGB Conc 34.6 g/dL (31.8-35.4); Mean Corpuscular Volume 89.5 fl (81-99); Mean Platelet Volume 8.1 fl (7.4-10.4); Monocytes # 0.4 K/mm3 (0.1-1.0); Neutrophils # 5.2 K/mm3 (1.8-7.8); Neutrophils % 74.1 % (37.0-80.0); Platelet Count 157 K/mm3 (142-424); Red Blood Count 3.65 M/mm3 (4.20-5.40); Red Cell Distribution Width 14.4 % (11.5-17.5)
[2024-07-02 06:28] LABS: Albumin Level 3.7 g/dl (3.5-5.0); Chloride 103 mmol/L (98-107); Potassium 3.6 mmoL/L (3.5-5.1); Sodium 139 mmol/L (136-145)
[2024-07-02 06:31] LABS: Alanine Aminotransferase 22 U/L (12-78); Albumin/Globulin Ratio 1.2 (1.1-1.8); Alkaline Phosphatase 49 U/L (38-126); Anion Gap 11.6 mEq/L (5-15); Aspartate Amino Transferase 22 U/L (14-36); Bilirubin,Total 0.6 mg/dl (0.2-1.3); Blood Urea Nitrogen 45 mg/dl (7-17); Calcium 8.5 mg/dl (8.4-10.2); Carbon Dioxide 28 mmol/L (22.0-30.0); Creatinine Clearance Estimated 45 mL/min (50-200); Estimated Glomerular Filt Rate 32 ml/min (>60); GFR (African American) 39 ML/MIN (>60); Glucose 203 mg/dl (74-100); Total Protein,Serum 6.7 g/dl (6.3-8.2)
[2024-07-02] MEDS: humaLOG 100 UNITS/ML 10ML VIAL (SSI) SUBCUT ×4 (06:32→20:06)
[2024-07-02] MEDS: MEROPENEM 1 GM in 0.9 % SODIUM CHLORIDE 100 ML IV ×2 (06:32→17:22)
[2024-07-02 08:00] VITALS: BP 126/54; PULSE 64; RESP 20; TEMP 36.9; O2SAT 94
[2024-07-02] MEDS: HEPARIN SODIUM 5,000 UNIT/ML VIAL 5000 UNIT SUBCUT ×2 (08:26→20:08)
[2024-07-02] MEDS: FERROUS SULFATE 325MG TABLET 325 MG PO ×3 (08:26→20:06)
[2024-07-02] MEDS: LISINOPRIL 5MG TABLET 5 MG PO (08:26)
[2024-07-02] MEDS: metOLazone 2.5MG TABLET 2.5 MG PO (08:26)
[2024-07-02] MEDS: BISOPROLOL 5MG TABLET 5 MG PO (08:27)
[2024-07-02 10:55] LABS: POC Glucose,Bedside 251 (70-110)
--- NOTE | 2024-07-02 15:24 | EXP.PN ---
Subjective *Date: 07/02/24 *Time: 15:24 Exam Data for Last 24 hours Vital signs and Labs for Last 24 Hours: Temp Pulse Resp BP Pulse Ox O2 Del Method 98.5 F 64 20 126/54 L 94 L Room Air 07/02/24 08:00 07/02/24 08:00 07/02/24 08:00 07/02/24 08:00 07/02/24 08:00 07/02/24 14:40 Laboratory Results - last 24 hr 07/01/24 13:47: Hepatitis C Antibody Non reactive, HIV 1&2 Antibody Rapid Nonreactive 07/01/24 15:05: Urine Color Yellow, Urine Appearance Clear, Urine pH 6.0, Ur Specific [place] 1.025, Urine Protein 2+ A, Urine Glucose (UA) Negative, Urine Ketones Negative, Urine Blood Trace-i, Urine Nitrate Positive, Urine Bilirubin Negative, Urine Urobilinogen 0.2, Ur Leukocyte Esterase 1+ A, Urine RBC 5-10, Urine WBC Tntc, Ur Transition Epith Cell 3-5, Urine Bacteria 4+ 07/01/24 20:04: POC Glucose 261 H 07/02/24 05:37: POC Glucose 198 H 07/02/24 05:38: WBC 7.0, RBC 3.65 L, Hgb 11.3 L, Hct 32.7 L, MCV 89.5, MCH 31.0, MCHC 34.6, RDW 14.4, Plt Count 157, MPV 8.1, Neut % (Auto) 74.1, Lymph % (Auto) 18.0, [place] % (Auto) 5.0, Eos % (Auto) 2.0, Baso % (Auto) 0.9, Neut # (Auto) 5.2, Lymph # (Auto) 1.3, [place] # (Auto) 0.4, Eos # (Auto) 0.1, Baso # (Auto) 0.1, Sodium 139, Potassium 3.6, Chloride 103, Carbon Dioxide 28, Anion Gap 11.6, BUN 45 H, Creatinine 1.60 H, Estimated Creat Clear 45, Estimated GFR 32 L, Est GFR ( Amer) 39 L, Glucose 203 H, Calcium 8.5, Total Bilirubin 0.6, AST 22, ALT 22, Alkaline Phosphatase 49, Total Protein 6.7, Albumin 3.7 D, Globulin 3.0, Albumin/Globulin Ratio 1.2 07/02/24 10:47: POC Glucose 251 H I & O for Last 24 hours: Intake & Output 06/29/24 06/30/24 07/01/24 07/02/24 23:59 23:59 23:59 23:59 Intake Total 1810 / 1810 Output Total 800 / 800 Balance 1010 / 1010 Weight 80.031 kg 80.286 kg Microbiology Reports for the Last 24 Hours: Microbiology 07/01/24 15:05 Urine,Clean Catch Urine Culture - Preliminary Constitutional Constitutional: no acute distress *Routine HEENT Exam Head: Present normocephalic Eye: Present EOMI and PERRL ENT: Present mucous membranes moist *Routine Neck Exam Neck: Present supple; Absent lymphadenopathy *Routine Respiratory Exam Respiratory: Present CTA bilaterally *Routine Cardiovascular Exam Cardiovascular: Present RRR *Routine Abdominal Exam Abdominal: Present soft and normoactive bowel sounds; Absent tenderness Comments: Urostomy site and bag clear of infection. *Routine Extremities Exam Extremities: Absent cyanosis, clubbing or edema Comments: Lower extremity atrophy. *Routine Skin Exam Skin: Present warm; Absent rash *Routine Neurological Exam Neurological: Present alert and oriented X3 Assessment and Plan *Assessment and plan (1) Urinary tract infection due to extended-spectrum beta lactamase (ESBL) producing Escherichia coli: Status: Acute Category: Medical Code(s): N39.0 - Urinary tract infection, site not specified; B96.29 - Other Escherichia coli [E. coli] as the cause of diseases classified elsewhere; Z16.12 - Extended spectrum beta lactamase (ESBL) resistance (2) Type 2 diabetes mellitus: Status: Acute Category: Medical Code(s): E11.9 - Type 2 diabetes mellitus without complications (3) Hypertension: Status: Acute Qualifiers: Hypertension type: unspecified Qualified Code(s): I10 - Essential (primary) hypertension Category: Medical Code(s): I10 - Essential (primary) hypertension Plan Patient is a 64-year-old female who presents to the hospital due to concern for urinary tract infection according to the patient she has lower abdominal pain, per patient she was recently diagnosed with a urinary tract infection and her cultures came back positive for the infection which can only be treated with IV antibiotics. Patient mentions she has history of frequent urinary tract infection. Patient denies chest pain shortness of breath nausea vomiting diarrhea constipation dysuria fevers and chills. Assessment and plan Urinary tract infection due to ESBL ? Urine culture on 06/27/2024 shows E. coli ESBL sensitive to ertapenem. ? IV meropenem day 10/05. ? Patient states she would be able to set up [facility] on Thursday to come into IV infusion clinic to finish antibiotic course. ? Clinically asymptomatic, vital stable. Paraplegia ? Patient was shown in the bag as a child. She is paralyzed waist down. Hypokalemia Monitor and replace electrolytes History of CKD stage III Baseline creatinine around 1.5 Creatinine appears around baseline currently Chronic medical conditions Diabetes mellitus-insulin sliding scale Hyperlipidemia Hypertension -Resume home medications DVT prophylaxis-heparin
[2024-07-02 16:00] VITALS: BP 176/78; PULSE 67; RESP 18; TEMP 37; O2SAT 94
[2024-07-02 16:30] LABS: POC Glucose,Bedside 223 (70-110)
[2024-07-02 20:00] VITALS: BP 188/78; PULSE 66; RESP 16; TEMP 37.2; O2SAT 95
[2024-07-02 20:06] LABS: POC Glucose,Bedside 199 (70-110)
[2024-07-02] MEDS: PRAVASTATIN 40MG TAB 80 MG PO (20:06)
[2024-07-02] MEDS: TIZANIDINE 4MG TABLET 4 MG PO (20:06)
[2024-07-03 03:31] VITALS: BP 158/63; PULSE 62; RESP 16; TEMP 36.8; O2SAT 98; BMI 28.4
--- NOTE | 2024-07-03 04:16 | PC.NURSE ---
64 yo female pt is A/O X 4. Pt has denied pain or discomfort throughout shift. She has not been OOB this shift and is independent with urostomy. Pt has had adeq output, urine clear yellow. No BM this shift. FSBS at 9pm was 199, covered with 2 units of Humalog. VS have been stable for pt.
[2024-07-03 05:12] LABS: POC Glucose,Bedside 203 (70-110)
[2024-07-03] MEDS: MEROPENEM 1 GM in 0.9 % SODIUM CHLORIDE 100 ML IV ×2 (05:12→17:42)
[2024-07-03] MEDS: humaLOG 100 UNITS/ML 10ML VIAL (SSI) SUBCUT ×4 (05:12→20:49)
[2024-07-03 07:06] LABS: Basophils # 0.1 K/mm3 (0-0.2); Basophils % 1.2 % (0.1-2.0); Eosinophils # 0.2 K/mm3 (0.0-0.4); Eosinophils % 2.1 % (0.1-12.0); Hematocrit 30.4 % (37.0-47.0); Hemoglobin 11.1 g/dL (12.2-16.2); Lymphocytes # 1.4 K/mm3 (0.7-4.5); Lymphocytes % 19.4 % (10-50); Mean Corpuscular HGB Conc 36.7 g/dL (31.8-35.4); Mean Corpuscular Hemoglobin 32.3 pg (27.0-31.2); Mean Corpuscular Volume 87.9 fl (81-99); Mean Platelet Volume 8.9 fl (7.4-10.4); Monocytes # 0.4 K/mm3 (0.1-1.0); Monocytes % 5.1 % (1.7-9.3); Neutrophils # 5.2 K/mm3 (1.8-7.8); Neutrophils % 72.2 % (37.0-80.0); Platelet Count 156 K/mm3 (142-424); Red Blood Count 3.46 M/mm3 (4.20-5.40); Red Cell Distribution Width 14.4 % (11.5-17.5); White Blood Count 7.2 K/mm3 (4.8-10.8)
[2024-07-03 07:15] LABS: Alanine Aminotransferase 22 U/L (12-78); Albumin Level 3.7 g/dl (3.5-5.0); Albumin/Globulin Ratio 1.3 (1.1-1.8); Alkaline Phosphatase 41 U/L (38-126); Anion Gap 10.9 mEq/L (5-15); Aspartate Amino Transferase 24 U/L (14-36); Bilirubin,Total 0.7 mg/dl (0.2-1.3); Blood Urea Nitrogen 43 mg/dl (7-17); Calcium 8.9 mg/dl (8.4-10.2); Carbon Dioxide 30 mmol/L (22.0-30.0); Chloride 101 mmol/L (98-107); Creatinine Clearance Estimated 45 mL/min (50-200); Estimated Glomerular Filt Rate 32 ml/min (>60); GFR (African American) 39 ML/MIN (>60); Globulin 2.9 g/dL (1.3-3.2); Glucose 166 mg/dl (74-100); Potassium 3.9 mmoL/L (3.5-5.1); Sodium 138 mmol/L (136-145); Total Protein,Serum 6.6 g/dl (6.3-8.2)
[2024-07-03 07:58] VITALS: BP 137/65; PULSE 63; RESP 16; O2SAT 93
[2024-07-03 08:00] VITALS: TEMP 37.1
[2024-07-03] MEDS: FERROUS SULFATE 325MG TABLET 325 MG PO ×3 (08:00→20:49)
[2024-07-03] MEDS: HEPARIN SODIUM 5,000 UNIT/ML VIAL 5000 UNIT SUBCUT ×2 (08:00→20:49)
[2024-07-03] MEDS: metOLazone 2.5MG TABLET 2.5 MG PO (08:00)
[2024-07-03] MEDS: BISOPROLOL 5MG TABLET 5 MG PO (08:01)
[2024-07-03] MEDS: LISINOPRIL 5MG TABLET 5 MG PO (08:01)
[2024-07-03 12:57] LABS: POC Glucose,Bedside 243 (70-110)
[2024-07-03 15:24] VITALS: BP 133/65; PULSE 62; RESP 17; TEMP 36.6; O2SAT 92
[2024-07-03 16:47] LABS: POC Glucose,Bedside 198 (70-110)
--- NOTE | 2024-07-03 18:16 | PC.NURSE ---
pt is a/ox4 and remains on RA, tolerating well. blood sugars have been elevated, treated per MAR. no complaints this shift, call light within reach, no further requests at this time.
--- NOTE | 2024-07-03 19:01 | P.PN_ITS ---
Subjective *Date: 07/04/24 *Time: 07:53 Exam Data for Last 24 hours Vital signs and Labs for Last 24 Hours: Temp Pulse Resp BP Pulse Ox O2 Del Method O2 Flow Rate 97.8 F 62 17 133/65 92 L Room Air 4 07/03/24 15:24 07/03/24 15:24 07/03/24 15:24 07/03/24 15:24 07/03/24 15:24 07/03/24 18:34 07/03/24 03:31 Laboratory Results - last 24 hr 07/01/24 15:05: Urine Color Yellow, Urine Appearance Clear, Urine pH 6.0, Ur Specific [place] 1.025, Urine Protein 2+ A, Urine Glucose (UA) Negative, Urine Ketones Negative, Urine Blood Trace-i, Urine Nitrate Positive, Urine Bilirubin Negative, Urine Urobilinogen 0.2, Ur Leukocyte Esterase 1+ A, Urine RBC 5-10, Urine WBC Tntc, Ur Transition Epith Cell 3-5, Urine Bacteria 4+ 07/02/24 19:54: POC Glucose 199 H 07/03/24 05:06: POC Glucose 203 H 07/03/24 06:59: WBC 7.2, RBC 3.46 L, Hgb 11.1 L, Hct 30.4 L, MCV 87.9, MCH 32.3 H, MCHC 36.7 H, RDW 14.4, Plt Count 156, MPV 8.9, Neut % (Auto) 72.2, Lymph % (Auto) 19.4, [place] % (Auto) 5.1, Eos % (Auto) 2.1, Baso % (Auto) 1.2, Neut # (Auto) 5.2, Lymph # (Auto) 1.4, [place] # (Auto) 0.4, Eos # (Auto) 0.2, Baso # (Auto) 0.1, Sodium 138, Potassium 3.9, Chloride 101, Carbon Dioxide 30, Anion Gap 10.9, BUN 43 H, Creatinine 1.60 H, Estimated Creat Clear 45, Estimated GFR 32 L, Est GFR ( Amer) 39 L, Glucose 166 H, Calcium 8.9, Total Bilirubin 0.7, AST 24, ALT 22, Alkaline Phosphatase 41, Total Protein 6.6, Albumin 3.7, Globulin 2.9, Albumin/Globulin Ratio 1.3 07/03/24 10:57: POC Glucose 243 H 07/03/24 16:24: POC Glucose 198 H I & O for Last 24 hours: Intake & Output 06/30/24 07/01/24 07/02/24 07/03/24 23:59 23:59 23:59 22:59 Intake Total 2270 / 2270 1680 / 1680 Output Total 2300 / 2300 3200 / 3200 Balance -30 / -30 -1520 / -1520 Weight 80.031 kg 80.286 kg 80.286 kg Microbiology Reports for the Last 24 Hours: Microbiology 07/01/24 15:05 Urine,Clean Catch Urine Culture - Preliminary Gram Negative Rods Constitutional Constitutional: no acute distress *Routine HEENT Exam Head: Present normocephalic Eye: Present EOMI and PERRL ENT: Present mucous membranes moist *Routine Neck Exam Neck: Present supple; Absent lymphadenopathy *Routine Respiratory Exam Respiratory: Present CTA bilaterally *Routine Cardiovascular Exam Cardiovascular: Present RRR *Routine Abdominal Exam Abdominal: Present soft and normoactive bowel sounds; Absent tenderness Comments: Urostomy site and bag clear of infection. *Routine Extremities Exam Extremities: Absent cyanosis, clubbing or edema Comments: Lower extremity atrophy. *Routine Skin Exam Skin: Present warm; Absent rash *Routine Neurological Exam Neurological: Present alert and oriented X3 Assessment and Plan *Assessment and plan (1) Urinary tract infection due to extended-spectrum beta lactamase (ESBL) producing Escherichia coli: Status: Acute Category: Medical Code(s): N39.0 - Urinary tract infection, site not specified; B96.29 - Other Escherichia coli [E. coli] as the cause of diseases classified elsewhere; Z16.12 - Extended spectrum beta lactamase (ESBL) resistance (2) Type 2 diabetes mellitus: Status: Acute Category: Medical Code(s): E11.9 - Type 2 diabetes mellitus without complications (3) Hypertension: Status: Acute Qualifiers: Hypertension type: unspecified Qualified Code(s): I10 - Essential (primary) hypertension Category: Medical Code(s): I10 - Essential (primary) hypertension Plan Patient is a 64-year-old female who presents to the hospital due to concern for urinary tract infection according to the patient she has lower abdominal pain, per patient she was recently diagnosed with a urinary tract infection and her cultures came back positive for the infection which can only be treated with IV antibiotics. Patient mentions she has history of frequent urinary tract infection. Patient denies chest pain shortness of breath nausea vomiting diarrhea constipation dysuria fevers and chills. Assessment and plan Urinary tract infection due to ESBL ? Urine culture on 06/27/2024 shows E. coli ESBL sensitive to ertapenem. ? IV meropenem day 11/04. ? Patient states she would be able to set up [facility] on Thursday to come into IV infusion clinic to finish antibiotic course. ? Clinically asymptomatic, vital stable. WBC normal Paraplegia ? Patient was shown in the bag as a child. She is paralyzed waist down. Hypokalemia Monitor and replace electrolytes History of CKD stage III Baseline creatinine around 1.5 Creatinine appears around baseline currently Chronic medical conditions Diabetes mellitus-insulin sliding scale Hyperlipidemia Hypertension -Resume home medications DVT prophylaxis-heparin
[2024-07-03 20:08] LABS: POC Glucose,Bedside 250 (70-110)
[2024-07-03 20:37] VITALS: BMI 28.4
[2024-07-03] MEDS: PRAVASTATIN 40MG TAB 80 MG PO (20:49)
[2024-07-03] MEDS: TIZANIDINE 4MG TABLET 4 MG PO (20:49)
[2024-07-03 21:10] VITALS: BP 222/106; PULSE 66; RESP 18; TEMP 37.3; O2SAT 92
[2024-07-03] MEDS: HYDRALAZINE 20MG/ML VIAL 20 MG IV (21:22)
[2024-07-03 21:30] VITALS: BP 149/54
--- NOTE | 2024-07-03 21:30 | PC.NURSE ---
2109 : manual BP 222/106, asymptomatic, denies dizziness, seeing spots, headache, cp - contacted [facility]121 : administered hydralazine per OCT 2129 : BP 149/54 - patient states she feel fine
[2024-07-04] VITALS: BP 107/48; PULSE 62; RESP 16; TEMP 37.1; O2SAT 95
[2024-07-04 04:00] VITALS: BP 150/65; PULSE 65; RESP 14; TEMP 36.8; O2SAT 98; BMI 28.3
[2024-07-04] MEDS: MEROPENEM 1 GM in 0.9 % SODIUM CHLORIDE 100 ML IV (05:39)
[2024-07-04] MEDS: humaLOG 100 UNITS/ML 10ML VIAL (SSI) SUBCUT ×2 (05:40→11:02)
[2024-07-04 05:48] LABS: POC Glucose,Bedside 259 (70-110)
[2024-07-04 07:00] LABS: Basophils # 0.1 K/mm3 (0-0.2); Eosinophils # 0.2 K/mm3 (0.0-0.4); Hematocrit 31.9 % (37.0-47.0); Hemoglobin 11.4 g/dL (12.2-16.2); Lymphocytes # 1.3 K/mm3 (0.7-4.5); Lymphocytes % 20.7 % (10-50); Mean Corpuscular HGB Conc 35.8 g/dL (31.8-35.4); Mean Corpuscular Hemoglobin 31.3 pg (27.0-31.2); Mean Corpuscular Volume 87.2 fl (81-99); Monocytes # 0.3 K/mm3 (0.1-1.0); Monocytes % 5.5 % (1.7-9.3); Neutrophils # 4.4 K/mm3 (1.8-7.8); Neutrophils % 69.8 % (37.0-80.0); Platelet Count 163 K/mm3 (142-424); Red Blood Count 3.65 M/mm3 (4.20-5.40); Red Cell Distribution Width 14.6 % (11.5-17.5); White Blood Count 6.3 K/mm3 (4.8-10.8)
[2024-07-04 07:08] LABS: Alanine Aminotransferase 21 U/L (12-78); Albumin Level 3.7 g/dl (3.5-5.0); Albumin/Globulin Ratio 1.2 (1.1-1.8); Alkaline Phosphatase 48 U/L (38-126); Anion Gap 12.9 mEq/L (5-15); Aspartate Amino Transferase 22 U/L (14-36); Bilirubin,Total 0.6 mg/dl (0.2-1.3); Blood Urea Nitrogen 51 mg/dl (7-17); Carbon Dioxide 26 mmol/L (22.0-30.0); Chloride 101 mmol/L (98-107); Creatinine Clearance Estimated 48 mL/min (50-200); Estimated Glomerular Filt Rate 35 ml/min (>60); GFR (African American) 42 ML/MIN (>60); Glucose 224 mg/dl (74-100); Potassium 3.9 mmoL/L (3.5-5.1); Sodium 136 mmol/L (136-145); Total Protein,Serum 6.7 g/dl (6.3-8.2)
[2024-07-04 07:44] VITALS: BP 147/62; PULSE 60; RESP 18; TEMP 36.8; O2SAT 96
[2024-07-04] MEDS: metOLazone 2.5MG TABLET 5 MG PO (08:14)
[2024-07-04] MEDS: FERROUS SULFATE 325MG TABLET 325 MG PO (08:14)
[2024-07-04] MEDS: HEPARIN SODIUM 5,000 UNIT/ML VIAL 5000 UNIT SUBCUT (08:14)
[2024-07-04] MEDS: BISOPROLOL 5MG TABLET 5 MG PO (08:14)
[2024-07-04] MEDS: LISINOPRIL 10MG TABLET 10 MG PO (08:14)
--- NOTE | 2024-07-04 10:31 | SW/DCPLANNER ---
Addendum entered by Jackelyn King 07/04/24 11:24: [facility] has been arranged for this patient to return to [facility] outpatient for IV antibiotics at discharge. Patient also stated that she currently receives assistance from [employer] program including meal delivery and house cleaning assistance. Patient does not have any further needs/concerns at this time. Patient will discharge home today. Original Note: I spoke w/ this patient regarding plans once medically stable for discharge. Per MD patient will need three additional days of IV antibiotics. Patient stated that she prefer back to [facility] outpatient for three days at once a day. Patient will be contacting [employer] this AM to arrange her transportation. I will follow up w/ patient this afternoon. Per MD plan for this patient is to discharge home later today.
[2024-07-04 11:05] LABS: POC Glucose,Bedside 217 (70-110)
--- NOTE | 2024-07-04 11:44 | EXP.DC.SUM ---
General Admission date:: 07/01/24 HPI HPI HPI: Patient is a 64-year-old female who presents to the hospital due to concern for urinary tract infection according to the patient she has lower abdominal pain, per patient she was recently diagnosed with a urinary tract infection and her cultures came back positive for the infection which can only be treated with IV antibiotics. Patient mentions she has history of frequent urinary tract infection. Patient denies chest pain shortness of breath nausea vomiting diarrhea constipation dysuria fevers and chills. Hospital Course Hospital Course Hospital Course: Patient is a 64-year-old female who presents to the hospital due to concern for urinary tract infection according to the patient she has lower abdominal pain, per patient she was recently diagnosed with a urinary tract infection and her cultures came back positive for the infection which can only be treated with IV antibiotics. Patient mentions she has history of frequent urinary tract infection. Patient denies chest pain shortness of breath nausea vomiting diarrhea constipation dysuria fevers and chills. Urinary tract infection due to ESBL ? Urine culture on 06/27/2024 shows E. coli ESBL sensitive to ertapenem. ? Repeat urine culture during admission showed E. coli essentially pansensitive. However, this was after initiating treatment on ertapenem ? IV meropenem day 4/. Ertapenem initially given in ED. ? After discussion with patient, she is amenable to finishing course of antibiotics at our IV infusion center in the hospital. She will be able to set up [facility] for this as she is paraplegic. ? Clinically asymptomatic, vital stable. WBC normal. ? Medically stable to be discharged home. ? Will get 3 more days of ertapenem at IV infusion clinic. Paraplegia ? Patient was shown in the bag as a child. She is paralyzed waist down. History of CKD stage III Baseline creatinine around 1.5 Creatinine appears around baseline currently Chronic medical conditions: Diabetes mellitus ? Continue home metformin, lispro with meals. Hyperlipidemia Hypertension - Resume home bisoprolol, lisinopril, metolazone, statin. Exam Data for Last 24 hours Vital signs and Labs for Last 24 Hours: Temp Pulse Resp BP Pulse Ox O2 Del Method O2 Flow Rate 98.3 F 60 18 147/62 H 96 Room Air 2.5 07/04/24 07:44 07/04/24 07:44 07/04/24 07:44 07/04/24 07:44 07/04/24 07:44 07/04/24 11:00 07/04/24 04:00 Laboratory Results - last 24 hr 07/03/24 10:57: POC Glucose 243 H 07/03/24 16:24: POC Glucose 198 H 07/03/24 19:53: POC Glucose 250 H 07/04/24 05:40: POC Glucose 259 H 07/04/24 06:03: WBC 6.3, RBC 3.65 L, Hgb 11.4 L, Hct 31.9 L, MCV 87.2, MCH 31.3 H, MCHC 35.8 H, RDW 14.6, Plt Count 163, MPV 8.0, Neut % (Auto) 69.8, Lymph % (Auto) 20.7, [place] % (Auto) 5.5, Eos % (Auto) 3.0, Baso % (Auto) 1.0, Neut # (Auto) 4.4, Lymph # (Auto) 1.3, [place] # (Auto) 0.3, Eos # (Auto) 0.2, Baso # (Auto) 0.1, Sodium 136, Potassium 3.9, Chloride 101, Carbon Dioxide 26, Anion Gap 12.9, BUN 51 H, Creatinine 1.50 H, Estimated Creat Clear 48, Estimated GFR 35 L, Est GFR ( Amer) 42 L, Glucose 224 H D, Calcium 9.0, Total Bilirubin 0.6, AST 22, ALT 21, Alkaline Phosphatase 48, Total Protein 6.7, Albumin 3.7, Globulin 3.0, Albumin/Globulin Ratio 1.2 07/04/24 10:57: POC Glucose 217 H I & O for Last 24 hours: Intake & Output 07/01/24 07/02/24 07/03/24 07/04/24 23:59 23:59 22:59 23:59 Intake Total 2270 / 2270 1680 / 1920 880 / 880 Output Total 2300 / 2300 3200 / 3800 1175 / 1175 Balance -30 / -30 -1520 / -1880 -295 / -295 Weight 80.031 kg 80.286 kg 80.286 kg 79.832 kg Microbiology Reports for the Last 24 Hours: Microbiology 07/01/24 15:05 Urine,Clean Catch Urine Culture - Final Escherichia coli Constitutional Constitutional: no acute distress *Routine HEENT Exam Head: Present normocephalic Eye: Present EOMI and PERRL ENT: Present mucous membranes moist *Routine Neck Exam Neck: Present supple; Absent lymphadenopathy *Routine Respiratory Exam Respiratory: Present CTA bilaterally *Routine Cardiovascular Exam Cardiovascular: Present RRR *Routine Abdominal Exam Abdominal: Present soft and normoactive bowel sounds; Absent tenderness Comments: Urostomy site and bag clear of infection. *Routine Extremities Exam Extremities: Absent cyanosis, clubbing or edema Comments: Lower extremity atrophy. *Routine Skin Exam Skin: Present warm; Absent rash *Routine Neurological Exam Neurological: Present alert and oriented X3 Results Data Completed and Pending Labs on day of discharge: Labs from last 24 hours 07/04/24 07/04/24 07/04/24 10:57 06:03 05:40 WBC 6.3 RBC 3.65 L Hgb 11.4 L Hct 31.9 L MCV 87.2 MCH 31.3 H MCHC 35.8 H RDW 14.6 Plt Count 163 MPV 8.0 Neut % (Auto) 69.8 Lymph % (Auto) 20.7 [place] % (Auto) 5.5 Eos % (Auto) 3.0 Baso % (Auto) 1.0 Neut # (Auto) 4.4 Lymph # (Auto) 1.3 [place] # (Auto) 0.3 Eos # (Auto) 0.2 Baso # (Auto) 0.1 Sodium 136 Potassium 3.9 Chloride 101 Carbon Dioxide 26 Anion Gap 12.9 BUN 51 H Creatinine 1.50 H Estimated Creat Clear 48 Estimated GFR 35 L Est GFR ( Amer) 42 L Glucose 224 H D POC Glucose 217 H 259 H Calcium 9.0 Total Bilirubin 0.6 AST 22 ALT 21 Alkaline Phosphatase 48 Total Protein 6.7 Albumin 3.7 Globulin 3.0 Albumin/Globulin Ratio 1.2 07/03/24 07/03/24 07/03/24 19:53 16:24 10:57 WBC RBC Hgb Hct MCV MCH MCHC RDW Plt Count MPV Neut % (Auto) Lymph % (Auto) [place] % (Auto) Eos % (Auto) Baso % (Auto) Neut # (Auto) Lymph # (Auto) [place] # (Auto) Eos # (Auto) Baso # (Auto) Sodium Potassium Chloride Carbon Dioxide Anion Gap BUN Creatinine Estimated Creat Clear Estimated GFR Est GFR ( Amer) Glucose POC Glucose 250 H 198 H 243 H Calcium Total Bilirubin AST ALT Alkaline Phosphatase Total Protein Albumin Globulin Albumin/Globulin Ratio DS: Diagnosis Discharge Diagnosis (1) Urinary tract infection due to extended-spectrum beta lactamase (ESBL) producing Escherichia coli: Status: Acute Code(s): N39.0 - Urinary tract infection, site not specified; B96.29 - Other Escherichia coli [E. coli] as the cause of diseases classified elsewhere; Z16.12 - Extended spectrum beta lactamase (ESBL) resistance (2) Type 2 diabetes mellitus: Status: Acute Code(s): E11.9 - Type 2 diabetes mellitus without complications (3) Hypertension: Status: Acute Code(s): I10 - Essential (primary) hypertension Qualifiers: Hypertension type: unspecified Qualified Code(s): I10 - Essential (primary) hypertension Meds Home Medications and Allergies Home Medications ?Medication ?Instructions ?Recorded ?Confirmed ?Type insulin lispro 100 unit/mL See Protocol SQ BIDWMEAL 02/23/24 07/01/24 History subcutaneous solution (Humalog U-100 Insulin) sodium zirconium cyclosilicate 10 10 g PO MOWEFR 02/23/24 07/01/24 History gram oral powder packet (Lokelnv) metolazone 2.5 mg tablet 2.5 mg PO DAILY #90 tabs 04/18/24 07/01/24 Rx blood sugar diagnostic (OneTouch #10 ea 04/20/24 07/01/24 History Verio test strips) bisoprolol fumarate 5 mg tablet 5 mg PO DAILY #90 tabs 06/27/24 07/01/24 Rx ascorbic acid (vitamin C) 500 mg 500 mg PO DAILY 07/01/24 07/01/24 History tablet (Vitamin C) ferrous sulfate 325 mg (65 mg 325 mg PO TID 07/01/24 07/01/24 History iron) tablet (FeroSul) lisinopril 5 mg tablet 5 mg PO DAILY 07/01/24 07/01/24 History metformin 500 mg tablet 500 mg PO DAILY 07/01/24 07/01/24 History multivitamin with folic acid 400 1 tab PO DAILY 07/01/24 07/01/24 History mcg tablet (Tab-A-Felice) omega 7-ccl-jvc-fish oil 300 2 cap PO BID 07/01/24 07/01/24 History mg-1,000 mg capsule (Fish Oil) pravastatin 80 mg tablet 80 mg PO HS 07/01/24 07/01/24 History tizanidine 4 mg capsule 4 mg PO HS 07/02/24 07/02/24 History New Prescriptions to Start Prescriptions: Allergies Allergy/AdvReac Type Severity Reaction Status Date / Time No Known Allergies Allergy Verified 07/01/24 14:09 Discharge Plan Disposition Patient Disposition: Home, Self-Care Condition: Fair Follow up Plan Follow up with: Reji Cabello MD [Primary Care Provider] - 07/11/24 11:00 am Prescriptions/Medication Reconciliation: Continued (DME) OneTouch Verio test strips Strip See Rx Instructions .ROUTE .MEDSUPPLY Qty: 10 Patient Comments: USE TO check blood sugar THREE TIMES DAILY Rx Instructions: As directed metolazone 2.5 mg tablet 2.5 mg PO DAILY Qty: 90 1RF bisoprolol fumarate 5 mg tablet 5 mg PO DAILY Qty: 90 1RF insulin lispro [Humalog U-100 Insulin] 100 unit/mL solution See Protocol SQ BIDWMEAL Protocol: Insulin Corrective Low-Dose Regimen Condition: Fingerstick Blood Glucose Dose/Route: Insulin Units Condition: 151-200 mg/dl Dose/Route: 2 unit/SQ Condition: 201-250 mg/dl Dose/Route: 4 units/SQ Condition: 251-300 mg/dl Dose/Route: 6 units/SQ Condition: 301-350 mg/dl Dose/Route: 8 units/SQ Condition: 351-400 mg/dl Dose/Route: 10 units/SQ Condition: 401-450 mg/dl Dose/Route: 12 units/SQ Condition: > 450 mg/dl Dose/Route: CALL MD Protocol Text: Low Intensity Sliding Scale Insulin Patient Comments: INJECT SUBCUTANEOUSLY TWICE DAILY DIRECTED max daily DOSE 100 UNITS PER day Lokelma 10 gram Powder In Packet 10 g PO MOWEFR lisinopril 5 mg tablet 5 mg PO DAILY Patient Comments: TAKE ONE TABLET BY MOUTH DAILY metformin 500 mg tablet 500 mg PO DAILY pravastatin 80 mg tablet 80 mg PO HS ascorbic acid (vitamin C) [Vitamin C] 500 mg tablet 500 mg PO DAILY ferrous sulfate [FeroSul] 325 mg (65 mg iron) tablet 325 mg PO TID omega 7-ruw-sba-fish oil [Fish Oil] 300-1,000 mg capsule 2 cap PO BID multivitamin with folic acid [Tab-A-Felice] 400 mcg tablet 1 tab PO DAILY tizanidine 4 mg Capsule 4 mg PO HS Problem Reconciliation Problems Reviewed?: Yes Patient Discharge Instructions Patient Instructions: Urinary Tract Infection, Extended Spectrum Beta-Lactamase Infection Print Language: Turkmen Providers Primary Care Provider: Reji Cabello Admit Provider: Collin Mcdonald Attending Provider: Collin Mcdonald
--- NOTE | 2024-07-05 14:15 | CARE MANAGER ---
Called and spoke with patient regarding recent discharge. Patient stated that she was aware of scheduled f/u appt and was here earlier for IM antibiotics. No concerns/questions at time of call.
== END 2024-07-04 12:59 | disposition home or self-care (01) ==
LOC: ER 15:57 → 2ND 18:00
PROVIDERS: Admitting Provider Student in an Organized Health Care Education/Training Program; Emergency Provider Emergency Medicine; PCP Internal Medicine; Visit Provider Student in an Organized Health Care Education/Training Program
DX: N39.0 Urinary tract infection, site not specified (principal); B96.29 Other Escherichia coli [E. coli] as the cause of diseases classified elsewhere; Z16.12 Extended spectrum beta lactamase (ESBL) resistance; E11.22 Type 2 diabetes mellitus with diabetic chronic kidney disease; I12.9 Hypertensive chronic kidney disease with stage 1 through stage 4 chronic kidney disease, or unspecified chronic kidney disease; Z79.899 Other long term (current) drug therapy; N18.30 Chronic kidney disease, stage 3 unspecified; Z79.4 Long term (current) use of insulin; G82.20 Paraplegia, unspecified; Z93.6 Other artificial openings of urinary tract status
CPT/HCPCS: 36415; 80053; 81001; 82962; 85025; 86803; 87086; 87088; 87186; 87389; 99285; G0378; J0360; J1335; J1644; J2185

== ENCOUNTER 2024-07-05 13:43 | Outpatient (CLI) | payer OTHER, SELFPAY ==
[2024-07-05 13:50] VITALS: BP 141/72; PULSE 57; RESP 18; TEMP 36.6; O2SAT 96
[2024-07-05] MEDS: ERTAPENEM SODIUM 1 GM VIAL IM (13:58)
== END 2024-07-05 14:00 | disposition home or self-care (01) ==
LOC: INF 13:45
PROVIDERS: PCP Internal Medicine; Visit Provider Student in an Organized Health Care Education/Training Program
DX: N39.0 Urinary tract infection, site not specified (principal); Z16.12 Extended spectrum beta lactamase (ESBL) resistance
CPT/HCPCS: 96372; J1335

== ENCOUNTER 2024-07-06 14:05 | Outpatient (CLI) | payer OTHER, SELFPAY ==
[2024-07-06] MEDS: ERTAPENEM SODIUM 1 GM VIAL IM (14:28)
[2024-07-06 14:30] VITALS: BP 121/63; PULSE 59; RESP 18; TEMP 36.6; O2SAT 97
== END 2024-07-06 14:30 | disposition home or self-care (01) ==
LOC: INF 14:06
PROVIDERS: PCP Internal Medicine; Visit Provider Student in an Organized Health Care Education/Training Program
DX: N39.0 Urinary tract infection, site not specified (principal); Z16.12 Extended spectrum beta lactamase (ESBL) resistance
CPT/HCPCS: 96372; J1335

== ENCOUNTER 2024-07-07 14:09 | Outpatient (CLI) | payer OTHER, SELFPAY ==
[2024-07-07 14:28] VITALS: BP 154/82; PULSE 59; RESP 16; TEMP 36.6; O2SAT 97
[2024-07-07] MEDS: ERTAPENEM SODIUM 1 GM VIAL IM (14:28)
[2024-07-07 15:21] LABS: Hemoglobin A1C 6.8 % (4.0-6.0)
[2024-07-07 15:48] LABS: Albumin Level 4.3 g/dl (3.5-5.0)
[2024-07-07 15:50] LABS: Bilirubin,Unconjugated 0.3 mg/dL (0.0-1.1)
[2024-07-07 15:51] LABS: Alanine Aminotransferase 24 U/L (12-78); Alkaline Phosphatase 48 U/L (38-126); Aspartate Amino Transferase 28 U/L (14-36); Bilirubin,Direct 0.2 mg/dl (0.0-0.4); Bilirubin,Indirect 0.3 mg/dL (0.0-0.9); Bilirubin,Total 0.5 mg/dl (0.2-1.3); Chol/HDL Ratio 5.3 (1-3.5); Cholesterol 168 mg/dl (140-200); HDL Cholesterol 32 mg/dl (40-60); Total Protein,Serum 7.7 g/dl (6.3-8.2)
[2024-07-07 16:00] LABS: Triglycerides 458 mg/dl (30-150)
[2024-07-07 16:02] LABS: Direct LDL Cholesterol 52.57 mg/dL (100-129)
== END 2024-07-07 14:40 | disposition home or self-care (01) ==
PROVIDERS: PCP Internal Medicine; Visit Provider Student in an Organized Health Care Education/Training Program
DX: E78.5 Hyperlipidemia, unspecified (principal); E11.9 Type 2 diabetes mellitus without complications
CPT/HCPCS: 80061; 80076; 83036; 96372; J1335

== ENCOUNTER 2024-08-29 13:01 | Outpatient (CLI) | payer OTHER, SELFPAY ==
[2024-08-29 13:09] LABS: Microscopic, Urine URINE MICROSCOPIC (MICROSCOPIC)
[2024-08-29 13:34] LABS: Basophils % 0.4 % (0.1-2.0); Eosinophils # 0.1 K/mm3 (0.0-0.4); Eosinophils % 1.2 % (0.1-12.0); Hematocrit 33.2 % (37.0-47.0); Hemoglobin 11.4 g/dL (12.2-16.2); Lymphocytes # 1.1 K/mm3 (0.7-4.5); Lymphocytes % 14.8 % (10-50); Mean Corpuscular HGB Conc 34.3 g/dL (31.8-35.4); Mean Corpuscular Hemoglobin 30.2 pg (27.0-31.2); Mean Corpuscular Volume 88.1 fl (81-99); Mean Platelet Volume 10.5 fl (7.4-10.4); Monocytes # 0.5 K/mm3 (0.1-1.0); Monocytes % 7.2 % (1.7-9.3); Neutrophils # 5.5 K/mm3 (1.8-7.8); Neutrophils % 75.8 % (37.0-80.0); Platelet Count 171 K/mm3 (142-424); Red Blood Count 3.77 M/mm3 (4.20-5.40); Red Cell Distribution Width 12.6 % (11.5-17.5); White Blood Count 7.3 K/mm3 (4.8-10.8)
[2024-08-29 14:11] LABS: Blood Urea Nitrogen 47 mg/dl (7-17); Calcium 9.8 mg/dl (8.4-10.2); Carbon Dioxide 29 mmol/L (22.0-30.0); Chloride 99 mmol/L (98-107); Estimated Glomerular Filt Rate 38 ml/min (>60); GFR (African American) 46 ML/MIN (>60); Glucose 185 mg/dl (74-100); Phosphorous 3.8 mg/dl (2.5-4.5); Sodium 136 mmol/L (136-145)
[2024-08-29 14:28] LABS: Appearance,Urine CLEAR (Clear); Bilirubin,Urine Negative (Negative); Blood, Urine TRACE-I (Negative); Color,Urine YELLOW (Yellow); Glucose,Urine (UA) TRACE (Negative); Ketones,Urine Negative (Negative); Leukocyte Esterase,Urine 1+ (Negative); Nitrate,Urine POSITIVE (Negative); PH,Urine 7.5 (5.0-8.5); Protein,Urine 2+ (Negative); Specific Gravity, Urine 1.025 (1.005-1.030); Urobilinogen,Urine 0.2 EU/dl (0.2)
[2024-08-29 14:46] LABS: Creatinine,Urine Random 48 mg/dL (Not Estab.)
[2024-08-29 14:57] LABS: Bacteria,Urine 1+ /lpf
[2024-09-02 06:18] LABS: Cystatin C 2.55 mg/L (0.72-1.16)
== END 2024-08-29 23:59 | disposition home or self-care (01) ==
PROVIDERS: PCP Internal Medicine; Visit Provider Student in an Organized Health Care Education/Training Program
DX: E11.21 Type 2 diabetes mellitus with diabetic nephropathy (principal); Z79.84 Long term (current) use of oral hypoglycemic drugs; Z79.4 Long term (current) use of insulin; N39.0 Urinary tract infection, site not specified; B96.4 Proteus (mirabilis) (morganii) as the cause of diseases classified elsewhere
CPT/HCPCS: 36415; 80069; 81001; 82570; 82610; 84156; 85025; 87086; 87088; 87186

== ENCOUNTER 2024-11-15 13:01 | Outpatient (CLI) | payer OTHER, SELFPAY ==
[2024-11-15 13:08] LABS: Microscopic, Urine URINE MICROSCOPIC (MICROSCOPIC)
[2024-11-15 13:56] LABS: Basophils % 0.4 % (0.1-2.0); Eosinophils # 0.2 K/mm3 (0.0-0.4); Eosinophils % 1.7 % (0.1-12.0); Hematocrit 34.2 % (37.0-47.0); Hemoglobin 11.4 g/dL (12.2-16.2); Lymphocytes # 0.8 K/mm3 (0.7-4.5); Lymphocytes % 8.5 % (10-50); Mean Corpuscular HGB Conc 33.3 g/dL (31.8-35.4); Monocytes # 0.6 K/mm3 (0.1-1.0); Neutrophils # 7.6 K/mm3 (1.8-7.8); Neutrophils % 82.2 % (37.0-80.0); Platelet Count 156 K/mm3 (142-424); Red Cell Distribution Width 12.5 % (11.5-17.5); White Blood Count 9.3 K/mm3 (4.8-10.8)
[2024-11-15 14:15] LABS: Albumin Level 3.9 g/dl (3.5-5.0); Chloride 104 mmol/L (98-107); Potassium 3.9 mmoL/L (3.5-5.1); Sodium 138 mmol/L (136-145)
[2024-11-15 14:18] LABS: Anion Gap 13.9 mEq/L (5-15); Blood Urea Nitrogen 43 mg/dl (7-17); Calcium 9.2 mg/dl (8.4-10.2); Carbon Dioxide 24 mmol/L (22.0-30.0); Estimated Glomerular Filt Rate 32 ml/min (>60); GFR (African American) 39 ML/MIN (>60); Glucose 164 mg/dl (74-100); Phosphorous 3.3 mg/dl (2.5-4.5)
[2024-11-15 14:35] LABS: Creatinine,Urine Random 33 mg/dL (Not Estab.)
[2024-11-15 14:56] LABS: Appearance,Urine Clear (Clear); Bacteria,Urine Trace /lpf; Bilirubin,Urine Negative (Negative); Blood, Urine 2+ (Negative); Color,Urine Yellow (Yellow); Glucose,Urine (UA) Negative (Negative); Ketones,Urine Negative (Negative); Leukocyte Esterase,Urine Negative (Negative); Nitrate,Urine Negative (Negative); Protein,Urine 3+ (Negative); Specific Gravity, Urine 1.015 (1.005-1.030); Squamous Epithelial Cell,Urine Occasional #/hpf (0-5); Urobilinogen,Urine 0.2 EU/dl (0.2)
[2024-11-15 18:05] LABS: Microalbumin/Creatinine Ratio 1847.8
== END 2024-11-15 23:59 | disposition home or self-care (01) ==
LOC: LAB 13:02
PROVIDERS: PCP Internal Medicine; Visit Provider Student in an Organized Health Care Education/Training Program
DX: I12.9 Hypertensive chronic kidney disease with stage 1 through stage 4 chronic kidney disease, or unspecified chronic kidney disease (principal); N18.32 Chronic kidney disease, stage 3b; R80.9 Proteinuria, unspecified
CPT/HCPCS: 36415; 80069; 81001; 82043; 82570; 84156; 85025

== ENCOUNTER 2024-11-15 13:18 | Outpatient (RCR) | payer OTHER, SELFPAY ==
--- NOTE | 2024-11-15 15:30 | HMH.PTOPWND ---
Rehab Outpt Wound Evaluation Rehab OP Wound Evaluation Start: 11/15/24 13:30 Freq: Status: Active Protocol: Document 11/15/24 15:18 PHOELIZABETH (Rec: 11/15/24 15:30 PHORNE [id number]) E-signed By Eddie Mosher, PT Subjective/History History History This is the initial PT wound care eval for Alyssa Azul , 64 yowf who presents with L buttock pressure injury which began 2-3 mos ago. She has hx of paraplegia and a prior chronic wound in the same area . She had been completely healed for several mos, but was worried when she found a new sore. She has been prescribed oral abx and is responding to this treatment well. She presents with appropriate dressing intact over the wound this date. Subjective Subjective Pt reports no c/o pain, but she does feel chills from time to time and that's when I know something is bothering me. Moderate erythema noted throughout L buttock and lateral, posterior L thigh. Wound Eval Subjective History Subjective Wound bed appears healthy with minimal slough noted this date. Wound Left Buttock Wound Type Pressure Ulcer Is This a Chronic Wound Yes Wound Staging Stage II Query Text:Stage I - Unbroken, red skin, no blanching. Stage II - Skin broken, superficial skin loss involving epidermis alone or also dermis. Partial loss of skin layers. Stage III - Pressure area involves epidermis, dermis and subcutaneous tissue, full thickness skin loss. Stage IV - Pressure area involves epidermis, subcutaneous tissue, bone and other supportive tissue. Full thickness skin loss with extensive destruction of underlying tissue and structures. Wound Length (cm) 1.3 Wound Width (cm) 1.0 Wound Depth (cm) 0.1 Wound Bed Appearance Beefy Red,Yellow Percentage Granulated (%) 80 Percentage of Slough (%) 20 Wound Margins Description Well Defined Surrounding Tissue Appearance Bright Red Drainage Description Yellow Drainage Amount Moderate Wound Topical Solution/Irrigant Saline Irrigant Primary Dressing Silver Dressing Comment opticell Ag, optifoam gentle border Wound Debridement Method Sharps,Gauze,Mechanical Wound Debridement Amount of Tissue Minimal Removed Dressing Change Patient Tolerance Tolerated Well Lassiter-Esparza Wound Assessment Tool Assessment Wound size 1=Length x Width <4 sq cm Wound depth 2=Partial thickness skin loss involving epidermis &/or dermis Wound edges 2=Distinct, outline clearly visible, attached, even with wound base Wound undermining 1=None present Necrotic tissue type 3=Loosely adherent yellow slough Necrotic tissue amount 2=<25% of wound bed covered Exudate type 5=Purulent: thin or thick, opaque, amezcua/yellow, withour without odor Exudate amount 4=Moderate Skin color surrounding wound 2=Bright red &/or blanches to touch Peripheral tissue edema 1=No swelling or edema Peripheral tissue induration 1=None present Granulation tissue 2=Bright, beefy red;75% to 100 % of wound filled &/or tissue overgrowth Epithelialization 5= < 25% wound covered Wound assessment total score 31 Wound Problems/Impairments Impairments Problems/Impairmments Impaired Transfers,Wound Care Needs,Impaired Self Care/Self Management Prognosis Rehab Potential Good Comment Skilled therapy services are indicated to reduce overall wound surface area in order to return pt to [facility]. Clinical Impression Consistent with Diagnosis Yes Short Term Goals Number of Weeks 4 Decrease Wound Area Yes: by 25% Custodial Goals Number of Weeks 8 Decrease Wound Area Yes: by 75% Patient to be Ind w/ Home Wound Care/ Yes Dressing Changes Outpatient Therapy Plan of Care Treatment Plan May Include Wound Care Yes Eval/Re-Eval Yes Frequency Times per week 1 Duration Number of Weeks 8 Addendums This patient is a candidate for social No or vocational rehab? Patient/Guardian verbally acknowledges Yes understanding of treatment program and consents to further treatment? Patient/Guardian verbally acknowledges Yes understanding of diagnosis, prognosis and goals for treatment? Eval Complexity PT Charges 68626 - High Complexity PHYSICIAN CERTIFICATION: I certify the specified therapy services for Alyssa Azul are required, authorized, and reviewed every 30 days.
== END 2024-11-15 23:59 | disposition home or self-care (01) ==
LOC: PT 13:18
PROVIDERS: Visit Provider Internal Medicine
DX: L89.323 Pressure ulcer of left buttock, stage 3 (principal); L03.317 Cellulitis of buttock
CPT/HCPCS: 97163

== ENCOUNTER 2024-11-30 14:06 | Outpatient (RCR) | payer OTHER, SELFPAY | END 2024-11-30 23:59 | disposition home or self-care (01) | LOC: PT 14:06 | PROVIDERS: Visit Provider Internal Medicine | DX: L89.323 Pressure ulcer of left buttock, stage 3 (principal); L03.317 Cellulitis of buttock | CPT/HCPCS: 97597 ==

== ENCOUNTER 2024-12-28 07:10 | Outpatient (CLI) | payer OTHER, SELFPAY ==
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
--- OUTSIDE RECORDS SUMMARY | 2024-12-28 07:12 | XMS_ITS ---
Author Organization [facility] Address [address] [place] [address] Phone Care Team Providers Care Business Continuity Planner Name Role Phone JEREMY PIZARRO, PAUL Castillo Unavailable [phone] Deni PIZARRO, Jose Unavailable [phone] Problems Includes: Active, inactive, and resolved Problems All Visits Onset Date Resolved Date Provider Condition S tatus Neck Pain 04/06/2023 Sonny Rodriguez MD Active Last Documented On 3 1:30PM ; [facility] Pain in the Right Hand Only 02/25/2023 Jose whyte MD Active Last Documented On 3 9:20AM ; [facility] Plan of Treatment Pending Tests Order Diagnosis Results Due Ordering P rovider Procedure/Tests EMG 03/11/23 Jose nielsen MD Last Documented On 3 9:39AM ; [facility] Radiology - CT/Myelogram Cervical Cervicalgia 04/06/23 Sonny Rodriguez MD Last Documented On 3 2:49PM ; [facility] Assessments Includes: Assessments for all patient encounters No Assessments Recorded Medical Equipment - Implanted Devices Includes: Current and historical Devices No Medical Equipment Recorded Medications Includes: Current and historical Medications Current Medications (continue as prescribed) tiZANidine HCl 4 MG Oral Tablet 04/02/2023 Provider: PAUL LUNA MD Diagnosis: Last Documented On 3 1:40PM By Jenifer Marcano ; [facility] Tab-A-Felice Oral Tablet 03/31/2023 Provider: DAKOTA LUNA MD Diagnosis: Last Documented On 3 1:40PM By Jenifer Marcano ; [facility] Bisoprolol Fumarate 5 MG Oral Tablet 03/25/2023 Prov ider: PAUL LUNA MD Diagnosis: Last Documented On 3 1:40PM By Jenifer Marcano ; [facility] FeroSul 325 (65 Fe) MG Oral Tablet 03/25/2023 Provid er: PAUL LUNA MD Diagnosis: Last Documented On 3 1:40PM By Jenfier Marcano ; [facility] [place]-3 1000 MG Oral Capsule 03/25/2023 Provider: PAUL LUNA MD Diagnosis: Last Documented On 3 1:40PM By Jenifer Marcano ; [facility] Lokelma 10 GM Oral Packet 03/16/2023 Provider: ALIYA LUNA MD Diagnosis: Last Documented On 3 1:40PM By Jenifer Marcano ; [facility] metFORMIN HCl 500 MG Oral Tablet 03/16/2023 Provider : PAUL LUNA MD Diagnosis: Last Documented On 3 1:40PM By Jenifer Marcano ; [facility] Pravastatin Sodium 80 MG Oral Tablet 03/16/2023 Prov ider: PAUL LUNA MD Diagnosis: Last Documented On 3 1:40PM By Jenifer Marcano ; [facility] Vitamin C 500 MG Oral Tablet 03/16/2023 Provider: PAUL LUNA MD Diagnosis: Last Documented On 3 1:40PM By Jenifer Marcano ; [facility] metOLazone 2.5 MG Oral Tablet 03/04/2023 Provider: PAUL LUNA MD Diagnosis: Last Documented On 3 1:40PM By Jenifer Marcano ; [facility] Medications Administered Includes: Administered Medications in patient's chart No Administered Medications Recorded Results Includes: Results from 12/29/2023 through 12/28/2024 No Results Recorded For Specified Dates History of Present Illness History of Present Illness not supported for this document type No History of Present Illness Recorded Social History Description Last Updated Exercising regularly 04/06/2023 Last Documented On 3 2:49PM ; [facility] Recent change in diet Renal 04/06/2023 Last Documented On 3 2:49PM ; [facility] Tobacco non-user 02/25/2023 Last Documented On 3 9:39AM ; [facility] No caffeine use 02/25/2023 Last Documented On 3 9:39AM ; [facility] Not a current smoker. 02/25/2023 Last Documented On 3 9:39AM ; [facility] Not using alcohol 02/25/2023 Last Documented On 3 9:39AM ; [facility] Not using drugs 02/25/2023 Last Documented On 3 9:39AM ; [facility] Smoking Status Unknown Procedures and Surgical History Surgical History Last Updated History of hysterectomy 04/06/2023 Last Documented On 3 2:49PM ; [facility] Past Surgical History: CSection ~Left ki dney removal 04/06/2023 Last Documented On 3 2:49PM ; [facility] Medical History Includes: Medical History in patient's chart Description Last Updated History of Anemia 04/06/2023 Last Documented On 3 2:49PM ; [facility] History of diabetes mellitus 04/06/2023 Last Documented On 3 2:49PM ; [facility] History of Hypertension 04/06/2023 Last Documented On 3 2:49PM ; [facility] History of Kidney Disease 04/06/2023 Last Documented On 3 2:49PM ; [facility] History of Sleep Apnea 04/06/2023 Last Documented On 3 2:49PM ; [facility] Use of CPAP 04/06/2023 Last Documented On 3 2:49PM ; [facility] Family History Includes: Family History in patient's chart Description Last Updated Family history of heart disease 04/06/20 Last Documented On 3 2:49PM ; [facility] Family history of systemic hypertension 04/06/2023 Last Documented On 3 2:49PM ; [facility] No significant family history 02/25/2023 Last Documented On 3 9:39AM ; [facility] Review of Systems Review of Systems not supported for this document type No Review of Systems Recorded Mental Status Description No anxiety Functional Status No Functional Status Recorded Physical Exam Physical Exam not supported for this document type No Physical Exam Recorded Allergies Includes: Active, inactive, and resolved Allergies No Known Allergies Insurance Includes: Active Insurance Policies Plan Name Member ID Group # Subscriber Relationship Effect abundio Dates 1 - [employer]na [facility] [id number] Alyssa Munoz Clinical Notes Includes: Signed Clinical Notes starting from 08/14/2022 No Clinical Notes Recorded
--- OUTSIDE RECORDS SUMMARY | 2024-12-28 07:12 | XMS_ITS ---
Care Plan - [facility], [facility] Created on: December 28, 2024 Alyssa Azul : 1960 Sex: Female Author Organization [facility] , [facility] Address [address] [place] [address] Phone Care Team Providers Care Sales Assistant Name Role Phone JEREMY PIZARRO, PAUL Castillo Unavailable [phone] Deni PIZARRO, Jose Unavailable [phone]
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
--- OUTSIDE RECORDS SUMMARY | 2024-12-28 07:12 | XMS_ITS | Clinical Summary ---
Author Organization [facility] , [facility] Address [address] [place] [address] Phone Care Team Providers Care Hotel Staff Member Name Role Phone JEREMY PIZARRO, PAUL Castillo Unavailable [phone] Deni PIZARRO, Jose Unavailable [phone] Reason for Visit and Chief Complaint EMG Problems Includes: Problems addressed during this encounter and other active Problems All Visits Onset Date Resolved Date Provider Condition S tatus Neck Pain 04/06/2023 Sonny Rodriguez MD Active Last Documented On 3 1:30PM ; [facility], [facility] Pain in the Right Hand Only 02/25/2023 Jose whyte MD Active Last Documented On 3 9:20AM ; [facility], [facility] Plan of Treatment No Plan of Treatment Recorded Assessments Includes: Assessments from this encounter No Assessments Recorded Medical Equipment - Implanted Devices Includes: Current Devices No Medical Equipment Recorded Medications Includes: Medications discussed during this encounter and other current Medications Current Medications (continue as prescribed) tiZANidine HCl 4 MG Oral Tablet 04/02/2023 Provider: PAUL LUNA MD Diagnosis: Last Documented On 3 1:40PM By Jenifer Marcano ; [facility], [facility] Tab-A-Felice Oral Tablet 03/31/2023 Provider: DAKOTA LUNA MD Diagnosis: Last Documented On 3 1:40PM By Jenifer Marcano ; [facility], [facility] Bisoprolol Fumarate 5 MG Oral Tablet 03/25/2023 Prov ider: PAUL LUNA MD Diagnosis: Last Documented On 3 1:40PM By Jenifer Marcano ; [facility], [facility] FeroSul 325 (65 Fe) MG Oral Tablet 03/25/2023 Provid er: PAUL LUNA MD Diagnosis: Last Documented On 3 1:40PM By Jenifer Marcano ; [facility], [facility] Raleigh-3 1000 MG Oral Capsule 03/25/2023 Provider: PAUL LUNA MD Diagnosis: Last Documented On 3 1:40PM By Jenifer Marcano ; [facility], [facility] Lokelma 10 GM Oral Packet 03/16/2023 Provider: ALIYA LUNA MD Diagnosis: Last Documented On 3 1:40PM By Jenifer Marcano ; [facility], [facility] metFORMIN HCl 500 MG Oral Tablet 03/16/2023 Provider : PAUL LUNA MD Diagnosis: Last Documented On 3 1:40PM By Jenifer Marcano ; [facility], [facility] Pravastatin Sodium 80 MG Oral Tablet 03/16/2023 Prov ider: PAUL LUNA MD Diagnosis: Last Documented On 3 1:40PM By Jenifer Marcano ; [facility], [facility] Vitamin C 500 MG Oral Tablet 03/16/2023 Provider: PAUL LUNA MD Diagnosis: Last Documented On 3 1:40PM By Jenifer Marcano ; [facility], [facility] metOLazone 2.5 MG Oral Tablet 03/04/2023 Provider: PAUL LUNA MD Diagnosis: Last Documented On 3 1:40PM By Jenifer Marcano ; [facility], [facility] Medications Administered Includes: Administered Medications from this encounter No Administered Medications Recorded Results Includes: Results discussed during this encounter No Results Recorded For Specified Dates History of Present Illness Includes: History of Present Illness from this encounter No History of Present Illness Recorded Social History No Social History Recorded - Smoking Status Unknown Medical History Includes: Medical History addressed during this encounter No Medical History Recorded Family History Includes: Family History addressed during this encounter No Family History Recorded Review of Systems Includes: Review of Systems from this encounter No Review of Systems Recorded Mental Status Includes: Mental Status from this encounter No Mental Status Recorded Functional Status Includes: Functional Status from this encounter No Functional Status Recorded Physical Exam Includes: Physical Exam from this encounter No Physical Exam Recorded Allergies Includes: Active Allergies No Known Allergies Encounters Encounter Provider Location Date Check-In Time Check-Out Time Diagnosis EMG [facility] 03/19/2023 2:37PM 11:59PM Insurance Includes: Active Insurance Policies Plan Name Member ID Group # Subscriber Relationship Effect abundio Dates 1 - Aetna [facility] [id number] Alyssa Azul Self Clinical Notes Includes: Clinical Notes from this encounter No Clinical Notes Recorded
[2024-12-28 07:31] LABS: Basophils # 0.1 K/mm3 (0-0.2); Basophils % 0.8 % (0.1-2.0); Eosinophils # 0.1 Kmm3 (0.0-0.4); Eosinophils % 2.1 % (0.1-12.0); Hematocrit 34.2 % (37.0-47.0); Hemoglobin 11.7 g/dL (12.2-16.2); Lymphocytes # 1.1 K/mm3 (0.7-4.5); Lymphocytes % 15.8 % (10-50); Mean Corpuscular HGB Conc 34.2 g/dL (31.8-35.4); Mean Corpuscular Hemoglobin 30.3 pg (27.0-31.2); Mean Corpuscular Volume 88.6 fl (81-99); Mean Platelet Volume 10.5 fl (7.4-10.4); Monocytes # 0.4 K/mm3 (0.1-1.0); Monocytes % 5.3 % (1.7-9.3); Neutrophils % 75.2 % (37.0-80.0); Nucleated Red Blood Cells # 0 10^3/uL; Nucleated Red Blood Cells % 0 %; Platelet Count 153 K/mm3 (142-424); Red Blood Count 3.86 M/mm3 (4.20-5.40); Red Cell Distribution Width 12.9 % (11.5-17.5); Red Cell Distribution Width-SD 41.8 fL; White Blood Count 6.6 K/mm3 (4.8-10.8)
[2024-12-28 07:49] LABS: Hemoglobin A1C 6.1 % (4.0-6.0)
[2024-12-28 07:54] LABS: Creatinine,Urine Random 22 mg/dL (Not Estab.)
[2024-12-28 08:19] LABS: Albumin Level 4.1 g/dl (3.5-5.0); Chloride 102 mmol/L (98-107); Potassium 3.5 mmoL/L (3.5-5.1); Sodium 138 mmol/L (136-145)
[2024-12-28 08:21] LABS: Alanine Aminotransferase 27 U/L (12-78); Aspartate Amino Transferase 27 U/L (14-36); Blood Urea Nitrogen 39 mg/dl (7-17); Estimated Glomerular Filt Rate 38 ml/min (>60); GFR (African American) 46 ML/MIN (>60)
[2024-12-28 08:22] LABS: Albumin/Globulin Ratio 1.5 (1.1-1.8); Alkaline Phosphatase 56 U/L (38-126); Anion Gap 11.5 mEq/L (5-15); Bilirubin,Total 0.7 mg/dl (0.2-1.3); Calcium 9.6 mg/dl (8.4-10.2); Carbon Dioxide 28 mmol/L (22.0-30.0); Chol/HDL Ratio 3.8 (1-3.5); Cholesterol 150 mg/dl (140-200); Globulin 2.8 g/dL (1.3-3.2); Glucose 177 mg/dl (74-100); HDL Cholesterol 40 mg/dl (40-60); Total Protein,Serum 6.9 g/dl (6.3-8.2); Triglycerides 296 mg/dl (30-150); VLDL Cholesterol 59 mg/dL (0-40)
[2024-12-28 08:33] LABS: Direct LDL Cholesterol 53.47 mg/dL (100-129)
[2024-12-28 09:02] LABS: Microalbumin/Creatinine Ratio 4980.9
== END 2024-12-28 23:59 | disposition home or self-care (01) ==
LOC: LAB 07:11
PROVIDERS: PCP Internal Medicine; Visit Provider Internal Medicine
DX: E78.5 Hyperlipidemia, unspecified (principal); E11.9 Type 2 diabetes mellitus without complications; N18.9 Chronic kidney disease, unspecified; I13.10 Hypertensive heart and chronic kidney disease without heart failure, with stage 1 through stage 4 chronic kidney disease, or unspecified chronic kidney disease; Z79.4 Long term (current) use of insulin
CPT/HCPCS: 36415; 80053; 80061; 82043; 82570; 83036; 85025

== ENCOUNTER 2025-01-02 14:11 | Outpatient (RCR) | payer OTHER, SELFPAY | END 2025-01-02 23:59 | disposition home or self-care (01) | LOC: PT 14:11 | PROVIDERS: Visit Provider Internal Medicine | DX: L89.323 Pressure ulcer of left buttock, stage 3 (principal); L03.317 Cellulitis of buttock ==

== ENCOUNTER 2025-02-16 13:20 | Outpatient (RCR) | payer OTHER, SELFPAY ==
--- NOTE | 2025-02-16 14:05 | HMH.PTOPWND ---
Rehab Outpt Wound Evaluation Rehab OP Wound Evaluation Start: 02/16/25 13:51 Freq: Status: Active Protocol: Document 02/16/25 13:51 MAHI (Rec: 02/16/25 14:05 PHORLEELEE [id number]) E-signed By Eddie Mosher, PT Subjective/History History History This is the initial PT wound eval for Alyssa Azul, 64 yowf who presents with L lateral posterior hip wound. This patient is very pleasant and well known to our clinic. This is a recurrence of a previous wound in the same spot that has healed and opened multiple times. She reports this instance the wound has been open ~ 2-3 weeks and she is unsure of the exact circumstances surrounding its appearance. In the past she has injured the area due to scraping it on her wheelchair, as she has hx of mid-thoracic SCI with resulting paraplegia and has no sensation below her waist. Subjective Subjective She reports no pain and is dressing her wound every other day with appropriate bandage. Wound Eval Wound Left Posterior Lateral Hip Wound Type Pressure Ulcer Is This a Chronic Yes Wound Wound Staging Stage II Query Text:Stage I - Unbroken, red skin, no blanching. Stage II - Skin broken, superficial skin loss involving epidermis alone or also dermis. Partial loss of skin layers. Stage III - Pressure area involves epidermis, dermis and subcutaneous tissue, full thickness skin loss. Stage IV - Pressure area involves epidermis, subcutaneous tissue, bone and other supportive tissue. Full thickness skin loss with extensive destruction of underlying tissue and structures. Wound Length (cm) 1.5 Wound Width (cm) 1.0 Wound Depth (cm) 0.1 Wound Bed Appearance Beefy Red Percentage 99 Granulated (%) Wound Margins Well Defined Description Surrounding Tissue [place],Bright Red Appearance Drainage Description Serosanguineous Drainage Amount Small Wound Topical Saline Irrigant Solution/Irrigant Primary Dressing Silver Dressing Comment opticell Ag Wound Secondary Composite Dressing Type Comment optifoam gentle border Wound Debridement Forceps,Gauze,Mechanical Method Wound Debridement Minimal Amount of Tissue Removed Wound Debridement Healthy Tissue Revealed Result Dressing Change Tolerated Well Patient Tolerance Lassiter-Esparza Wound Assessment Tool Assessment Wound size 1=Length x Width <4 sq cm Wound depth 3=Full thickness skin loss involving damage or necrosis of Wound edges 2=Distinct, outline clearly visible, attached, even with wound base Wound undermining 1=None present Necrotic tissue type 2=White/angel non-viable tissue &/or non-adherent yellow slough Necrotic tissue 2=<25% of wound bed covered amount Exudate type 3=Serosanguineous: thin, watery, pale red/pink Exudate amount 3=Small Skin color 2=Bright red &/or blanches to touch surrounding wound Peripheral tissue 1=No swelling or edema edema Peripheral tissue 1=None present induration Granulation tissue 2=Bright, beefy red;75% to 100% of wound filled &/or tissue overgrowth Epithelialization 5= < 25% wound covered Wound assessment 28 total score Wound Problems/Impairments Impairments Problems/ Wound Care Needs Impairmments Prognosis Rehab Potential Good Comment Skilled therapy is indicated to aid reduction of total wound surface area and improve healing time in order to return pt to PLOF. Clinical Impression Consistent with Yes Diagnosis Short Term Goals Number of Weeks 4 Decrease Wound Area Yes: by 25% Snf Goals Number of Weeks 8 Decrease Wound Area Yes: by 100% Outpatient Therapy Plan of Care Treatment Plan May Include Wound Care Yes Eval/Re-Eval Yes Frequency Times per week 1 Duration Number of Weeks 8 Addendums This patient is a No candidate for social or vocational rehab ? Patient/Guardian Yes verbally acknowledges understanding of treatment program and consents to further treatment? Patient/Guardian Yes verbally acknowledges understanding of diagnosis, prognosis and goals for treatment? Eval Complexity PT Charges [id number] - High Complexity PHYSICIAN CERTIFICATION: I certify the specified therapy services for Alyssa Azul are required, authorized, and reviewed every 30 days.
== END 2025-02-16 23:59 | disposition home or self-care (01) ==
LOC: PT 13:20
PROVIDERS: PCP Internal Medicine; Visit Provider Internal Medicine
DX: L89.322 Pressure ulcer of left buttock, stage 2 (principal)
CPT/HCPCS: 97163

== ENCOUNTER 2025-02-21 13:31 | Outpatient (CLI) | payer OTHER, SELFPAY ==
--- OUTSIDE RECORDS SUMMARY | 2025-02-21 13:33 | XMS_ITS | Encounter Summary ---
Author Organization [employer] Address [address] [place] [id number] Care Team Providers Care Infectious Waste Technician Name Role Phone Unavailable Primary Care Provider Unavailabl e Encounter Details Date Type Department Care Team (Late st Contact Info) Description 03/11/2022 Transcribed Document [facility] Family [facility] [place] [address] ProviderFlorentino MD [address] [place] [address] Social History Tobacco Use Types Packs/Day Years Used Date Smoking Tobacco: Never Assessed Comments Unknown Sex and Gender Information Value Date Recorded Sex Assigned at Not on file Legal Sex Female 1:44 PM CDT Gender Identity Not on file Sexual Orientation Not on file documented as of this encounter Miscellaneous Notes * Cerner Conversion Note - Florentino ProviderMD - 03/11/2022 10:58 AM CDT Discharge Summary, [employer]INT [employer]ER Entered On: 03/11/2022 10:58 EDT Performed On: 03/11/2022 10:58 EDT by SHANNAN SINGH, [employer]ER Discharge Notation. 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 Initiated reg/ thin and sign off. SHANNAN SINGH SLP - 03/11/2022 10:58 EDT Swallow Plan/Goals Swallow LTG Grid [employer] Snf Goal #1 Swallow LTG : Establish safe oral diet without aspiration Status : Goal met Date Met : 03/11/2022 EDT SHANNAN SINGH SLP - 03/11/2022 10:58 EDT Swallow Goals Grid Goal #1 Goal #2 Swallow STG : Improve pharyngeal strength Other: FEES Related To : Aspiration prevention Measurement by repeat instrumental exam Date to Meet : 03/11/2022 EDT 03/11/2022 EDT Status : Goal met Goal met SHANNAN SINGH, [employer] - 03/11/2022 10:58 EDT SHANNAN SINGH, [employer]ER - 03/11/2022 10:58 EDT Electronically signed by Sumaya [facility] Conversion Production Or Plant Engineer Cerner at 12/21/2022 5:09 PM CDT documented in this encounter Plan of Treatment Not on file documented as of this encounter Visit Diagnoses Not on filedocumented in this encounter
--- OUTSIDE RECORDS SUMMARY | 2025-02-21 13:33 | XMS_ITS | Encounter Summary ---
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 Name Role Phone Unavailable Primary Care Provider Unavailabl e Encounter Details Date Type Department Care Team (Late st Contact Info) Description 03/11/2022 Transcribed Document [facility] [place] [facility] [address] [place] [address] ProviderFlorentino MD [address] [place] [address] Social History Tobacco Use Types Packs/Day Years Used Date Smoking Tobacco: Never Assessed Comments Unknown Sex and Gender Information Value Date Recorded Sex Assigned at Not on file Legal Sex Female 1:44 PM CDT Gender Identity Not on file Sexual Orientation Not on file documented as of this encounter Miscellaneous Notes * Cerner Conversion Note - Florentino Lynne MD - 03/11/2022 1:17 PM CDT Patient: ALYSSA AZUL Age: 61 years Sex: Female : 1960 Associated Diagnoses: None Author: VINNIE SWEENEY MD Subjective Seen and examined at bedside. No complaints. Urine output remains excellent s/p Diuril. Health Status Allergies: Allergic Reactions (Selected) No Known Allergies, Allergies (1) Active Reaction No Known Allergies None Documented Current medications: (Selected) Inpatient Medications Ordered Dextrose 50% injection: 12.5 Gram, IV Push, Q15Min, PRN: Other (See Comment) Dextrose 50% injection: 25 Gram, IV Push, Q15Min, PRN: Other (See Comment) Dextrose 50% injection: 25 Gram, IV Push, Q15Min, PRN: Other (See Comment) Dextrose 50% injection: 25 Gram, IV Push, Q15Min, PRN: Other (See Comment) Diuril: 500 mg, IV Push, Q12H DuoNeb 0.5 mg-2.5 mg/3 mL inhalation solution: 3 mL, Nebulized Inhalation, RT_Q6H DuoNeb 0.5 mg-2.5 mg/3 mL inhalation solution: 3 mL, Nebulized Inhalation, RT_Q6H, PRN: Dyspnea Fish Oil: 5,000 mg, Oral, BID PRAVAstatin: 40 mg, Oral, At Bedtime Pepcid: 20 mg, IV Push, At Bedtime Pulmicort Respules: 0.5 mg, Nebulized Inhalation, RT_BID Zofran: 4 mg, IV Push, Q6H, PRN: Nausea Zosyn + Dextrose 5% in Water intravenous solution 50 mL: 2.25 Gram, 16.67 mL/Hr, IV Piggyback, Q6HInt acetaminophen: 650 mg, Oral, Q6H, PRN: Temperature calcium gluconate: 1 Gram, 100 mL, 100 mL/Hr, IV Piggyback, Daily, PRN: Other (See Comment) calcium gluconate: 2 Gram, 100 mL, 100 mL/Hr, IV Piggyback, Daily, PRN: Other (See Comment) calcium gluconate: 2 Gram, 100 mL, 100 mL/Hr, IV Piggyback, Q12H, PRN: Other (See Comment) dexmedeTOMIDine injection 400 mcg + NaCl 0.9% for drip 100 mL: TITRATE, IntraVENous docusate sodium: 100 mg, Feeding Tube, Daily doxycycline: 100 mg, Oral, BID ferrous sulfate: 325 mg, Oral, BID With Meals glucagon: 1 mg, IntraMuscular, Q15Min, PRN: Other (See Comment) glucose 4 g oral tablet, chewable: 16 Gram, 4 Tab, Chew, Q15Min, PRN: Other (See Comment) glucose 40% oral gel: 15 Gram, 37.5 mL, Oral, Q15Min, PRN: Other (See Comment) guaiFENesin: 400 mg, Oral, Q6H heparin: 5,000 Units, SubCutaneous, Q8H hydrALAZINE: 10 mg, IV Push, Q6H, PRN: Hypertension insulin glargine: 28 Units, SubCutaneous, Daily insulin regular sliding scale: Scale C, SubCutaneous, Q6H magnesium sulfate: 2 Gram, 50 mL, 25 mL/Hr, IV Piggyback, Daily, PRN: Other (See Comment) magnesium sulfate: 2 Gram, 50 mL, 25 mL/Hr, IV Piggyback, Q2H, PRN: Other (See Comment) morphine: 2 mg, IV Push, Q2H, PRN: Pain (Severe 7-10) niCARdipine injection 25 mg + Dextrose 5% in Water intravenous solution 250 mL: TITRATE, IntraVENous potassium bicarbonate: 20 mEq, Oral, Q2H, PRN: Other (See Comment) potassium bicarbonate: 60 mEq, Oral, Q2H, PRN: Other (See Comment) potassium chloride 10 mEq/50 mL intravenous solution: 10 mEq, 50 mL, 50 mL/Hr, IV Piggyback, Q1H, PRN: Other (See Comment) potassium chloride 20 mEq oral tablet, extended release: 20 mEq, 1 Tab, Oral, Q2H, PRN: Other (See Comment) potassium chloride 20 mEq oral tablet, extended release: 60 mEq, 3 Tab, Oral, Q2H, PRN: Other (See Comment) senna: 8.8 mg, Oral, At Bedtime sodium phosphate: 15 mMole, 5 mL, 50 mL/Hr, IV Piggyback, Daily, PRN: Other (See Comment) sodium phosphate: 15 mMole, 5 mL, 50 mL/Hr, IV Piggyback, Q6H, PRN: Other (See Comment) Documented Medications Documented Farxiga 10 mg oral tablet: 1 Tab, Oral, Daily, 0 Refill(s) Lovaza 1000 mg oral capsule: 2 Cap, Oral, BID, 360 Cap, 0 Refill(s) alendronate weekly: 70 mg, Oral, Weekly, 0 Refill(s) bisoprolol 5 mg oral tablet: 1 Tab, Oral, Daily, 0 Refill(s) ferrous sulfate 325 mg (65 mg elemental iron) oral tablet: 1 Tab, Oral, BID, 0 Refill(s) furosemide 40 mg oral tablet: 1 Tab, Oral, Daily, 0 Refill(s) lisinopril 40 mg oral tablet: 1 Tab, Oral, Daily, 30 Tab, 0 Refill(s) metFORMIN 500 mg oral tablet: 2 Tab, Oral, BID, 60 Tab, 0 Refill(s) pravastatin 40 mg oral tablet: 1 Tab, Oral, At Bedtime, 0 Refill(s), Home Medications (9) Active alendronate weekly 70 mg, Oral, Weekly bisoprolol 5 mg oral tablet 5 mg = 1 Tab, Oral, Daily Farxiga 10 mg oral tablet 10 mg = 1 Tab, Oral, Daily ferrous sulfate 325 mg (65 mg elemental iron) oral tablet 325 mg = 1 Tab, Oral, BID furosemide 40 mg oral tablet 40 mg = 1 Tab, Oral, Daily lisinopril 40 mg oral tablet 40 mg = 1 Tab, Oral, Daily Lovaza 1000 mg oral capsule 2,000 mg = 2 Cap, Oral, BID metFORMIN 500 mg oral tablet 1,000 mg = 2 Tab, Oral, BID pravastatin 40 mg oral tablet 40 mg = 1 Tab, Oral, At Bedtime , Medications (41) Active Scheduled: (15) albuterol-ipratropium inh 3 mL 3 mL, Nebulized Inhalation, RT_Q6H budesonide 0.5 mg/2 mL inh susp 0.5 mg 2 mL, Nebulized Inhalation, RT_BID chlorothiazide 500 mg inj 500 mg, IV Push, Q12H docusate sod 100 mg/10 mL liq 100 mg 10 mL, Feeding Tube, Daily doxycycline hyclate 100 mg cap 100 mg 1 Cap, Oral, BID famotidine 20 mg/2 mL inj 20 mg 2 mL, IV Push, At Bedtime ferrous sulfate 325 mg EC tab 325 mg 1 Tab, Oral, BID With Meals guaiFENesin 100 mg/5 mL liq 15 mL 400 mg 20 mL, Oral, Q6H heparin 5,000 units/1 mL inj 5,000 Units 1 mL, SubCutaneous, Q8H insulin glargine 1 unit/0.01 mL inj 28 Units 0.28 mL, SubCutaneous, Daily insulin regular 1 unit/0.01 mL inj 3mL Scale C, SubCutaneous, Q6H omega-3 fish oil 1,000 mg cap 5,000 mg 5 Cap, Oral, BID piperacillin-tazobactam + Dextrose 5% in Water 50 mL 2.25 Gram, IV Piggyback, Q6HInt PRAVAstatin sodium 20 mg tab 40 mg 2 Tab, Oral, At Bedtime senna 8.8 mg/5 mL liq 8.8 mg 5 mL, Oral, At Bedtime Continuous: (2) dexmedeTOMIDine 400 mcg + NaCl 0.9% TITRATE 100 mL 100 mL, IntraVENous niCARdipine 25 mg + Dextrose 5% in Water 250 mL 250 mL, IntraVENous PRN: (24) acetaminophen 325 mg tab 650 mg 2 Tab, Oral, Q6H albuterol-ipratropium inh 3 mL 3 mL, Nebulized Inhalation, RT_Q6H calcium gluconate 2 Gram 100 mL, IV Piggyback, Daily calcium gluconate 2 Gram 100 mL, IV Piggyback, Q12H calcium gluconate/NaCl 1 Gram 100 mL, IV Piggyback, Daily dextrose 50% 25 g/50 mL inj syr 25 Gram 50 mL, IV Push, Q15Min dextrose 50% 25 g/50 mL inj syr 25 Gram 50 mL, IV Push, Q15Min dextrose 50% 25 g/50 mL inj syr 25 Gram 50 mL, IV Push, Q15Min dextrose 50% 25 g/50 mL inj syr 12.5 Gram 25 mL, IV Push, Q15Min glucagon 1 mg/1 mL inj 1 mg 1 mL, IntraMuscular, Q15Min glucose 4 g tab 16 Gram 4 Tab, Chew, Q15Min glucose 40% gel 15 g 15 Gram 37.5 mL, Oral, Q15Min hydrALAZINE 20 mg/1 mL inj 10 mg 0.5 mL, IV Push, Q6H magnesium sulfate 2 Gram 50 mL, IV Piggyback, Daily magnesium sulfate 2 Gram 50 mL, IV Piggyback, Q2H morphine 2 mg/1 ml inj 2 mg 1 mL, IV Push, Q2H ondansetron 4 mg/2 mL inj 4 mg 2 mL, IV Push, Q6H potassium bicarb efferves 20 mEq dis tab 20 mEq 1 Tab, Oral, Q2H potassium bicarb efferves 20 mEq dis tab 60 mEq 3 Tab, Oral, Q2H potassium chloride 10 mEq 50 mL, IV Piggyback, Q1H potassium chloride CR 20 mEq tab 20 mEq 1 Tab, Oral, Q2H potassium chloride CR 20 mEq tab 60 mEq 3 Tab, Oral, Q2H sodium phosphate 15 mMole 5 mL, IV Piggyback, Daily sodium phosphate 15 mMole 5 mL, IV Piggyback, Q6H Problem list: Medical History of obstructive sleep apnea / IMO [id number] / Confirmed, Active Problems (5) Chronic kidney disease (CKD), stage III (moderate) Diabetes History of obstructive sleep apnea Hyperlipidemia Hypertension Objective VS/Measurements Vital Signs/Vital Measures 03/11/2022 13:00 EDT Systolic Blood Pressure 129 mmHg Diastolic Blood Pressure 81 mmHg Mean Arterial Pressure (MAP)-BMDI 99 Heart Rate Monitored 88 bpm Respiratory Rate 16 Breaths/Min Oxygen Saturation 98 % 03/11/2022 12:00 EDT Systolic Blood Pressure 136 mmHg Diastolic Blood Pressure 88 mmHg Mean Arterial Pressure (MAP)-BMDI 107 Temperature Source Oral Temperature Mode Fahrenheit Temperature, Fahrenheit 98.4 Deg F Heart Rate Monitored 92 bpm Respiratory Rate 22 Breaths/Min HI Oxygen Saturation 99 % Oxygen Therapy Mode Nasal cannula Oxygen Flow Rate 4 Liter/Min 03/11/2022 11:00 EDT Systolic Blood Pressure 159 mmHg HI Diastolic Blood Pressure 82 mmHg Mean Arterial Pressure (MAP)-BMDI 99 Systolic BP, Arterial Line 2 138 mmHg Diastolic BP, Arterial Line 2 62 mmHg Mean Arterial Pressure, Line 2 87 mmHg Heart Rate Monitored 91 bpm Respiratory Rate 34 Breaths/Min HI Oxygen Saturation 97 % (Modified) 03/11/2022 10:16 EDT Heart Rate Monitored 84 bpm Respiratory Rate 21 Breaths/Min HI Oxygen Saturation 98 % 03/11/2022 10:12 EDT Heart Rate Monitored 84 bpm Respiratory Rate 19 Breaths/Min Oxygen Saturation 97 % 03/11/2022 10:05 EDT Heart Rate Monitored 83 bpm Respiratory Rate 19 Breaths/Min Oxygen Saturation 98 % Oxygen Therapy Mode Nasal cannula Oxygen Flow Rate 4 Liter/Min 03/11/2022 10:00 EDT Systolic Blood Pressure 159 mmHg HI Diastolic Blood Pressure 78 mmHg Mean Arterial Pressure (MAP)-BMDI 111 Systolic BP, Arterial Line 2 157 mmHg HI Diastolic BP, Arterial Line 2 65 mmHg Mean Arterial Pressure, Line 2 95 mmHg 03/11/2022 9:00 EDT Systolic Blood Pressure 123 mmHg Diastolic Blood Pressure 70 mmHg Mean Arterial Pressure (MAP)-BMDI 91 Systolic BP, Arterial Line 2 129 mmHg Diastolic BP, Arterial Line 2 52 mmHg LOW Mean Arterial Pressure, Line 2 76 mmHg Heart Rate Monitored 79 bpm Respiratory Rate 21 Breaths/Min HI Oxygen Saturation 98 % 03/11/2022 8:46 EDT Heart Rate Monitored 82 bpm Respiratory Rate 21 Breaths/Min HI Oxygen Saturation 98 % Oxygen Therapy Mode Nasal cannula Oxygen Flow Rate 4 Liter/Min 03/11/2022 8:00 EDT Systolic BP, Arterial Line 2 116 mmHg Diastolic BP, Arterial Line 2 51 mmHg LOW Mean Arterial Pressure, Line 2 72 mmHg Temperature Source Oral Temperature Mode Fahrenheit Temperature, Fahrenheit 98.3 Deg F Heart Rate Monitored 82 bpm Respiratory Rate 21 Breaths/Min HI Oxygen Saturation 94 % 03/11/2022 7:00 EDT Systolic Blood Pressure 124 mmHg Diastolic Blood Pressure 67 mmHg Mean Arterial Pressure (MAP)-BMDI 90 Systolic BP, Arterial Line 2 146 mmHg HI Diastolic BP, Arterial Line 2 55 mmHg LOW Mean Arterial Pressure, Line 2 83 mmHg Heart Rate Monitored 87 bpm Respiratory Rate 21 Breaths/Min HI Oxygen Saturation 100 % 03/11/2022 6:00 EDT Systolic Blood Pressure 123 mmHg Diastolic Blood Pressure 71 mmHg Mean Arterial Pressure (MAP)-BMDI 91 Systolic BP, Arterial Line 2 132 mmHg Diastolic BP, Arterial Line 2 50 mmHg LOW Mean Arterial Pressure, Line 2 74 mmHg Heart Rate Monitored 83 bpm Respiratory Rate 19 Breaths/Min Oxygen Saturation 100 % 03/11/2022 5:00 EDT Systolic Blood Pressure 139 mmHg Diastolic Blood Pressure 73 mmHg Mean Arterial Pressure (MAP)-BMDI 100 Systolic BP, Arterial Line 2 157 mmHg HI Diastolic BP, Arterial Line 2 63 mmHg Mean Arterial Pressure, Line 2 92 mmHg Heart Rate Monitored 90 bpm Respiratory Rate 19 Breaths/Min Oxygen Saturation 98 % 03/11/2022 4:28 EDT Heart Rate Monitored 91 bpm Respiratory Rate 20 Breaths/Min Oxygen Saturation 99 % Oxygen Therapy Mode Nasal cannula Oxygen Flow Rate 4 Liter/Min 03/11/2022 4:00 EDT Systolic Blood Pressure 192 mmHg HI Diastolic Blood Pressure 95 mmHg HI Mean Arterial Pressure (MAP)-BMDI 134 Systolic BP, Arterial Line 2 205 mmHg HI Diastolic BP, Arterial Line 2 79 mmHg Mean Arterial Pressure, Line 2 125 mmHg Temperature Source Oral Temperature Mode Fahrenheit Temperature, Fahrenheit 98.4 Deg F 03/11/2022 3:00 EDT Systolic Blood Pressure 133 mmHg Diastolic Blood Pressure 74 mmHg Mean Arterial Pressure (MAP)-BMDI 98 Systolic BP, Arterial Line 2 105 mmHg Diastolic BP, Arterial Line 2 89 mmHg Mean Arterial Pressure, Line 2 92 mmHg Heart Rate Monitored 77 bpm Respiratory Rate 21 Breaths/Min HI Oxygen Saturation 98 % 03/11/2022 2:00 EDT Systolic Blood Pressure 141 mmHg HI Diastolic Blood Pressure 76 mmHg Mean Arterial Pressure (MAP)-BMDI 103 Systolic BP, Arterial Line 2 134 mmHg Diastolic BP, Arterial Line 2 47 mmHg LOW Mean Arterial Pressure, Line 2 73 mmHg Heart Rate Monitored 80 bpm Respiratory Rate 20 Breaths/Min Oxygen Saturation 97 % 03/11/2022 1:00 EDT Systolic Blood Pressure 168 mmHg HI Diastolic Blood Pressure 86 mmHg Mean Arterial Pressure (MAP)-BMDI 120 Systolic BP, Arterial Line 2 166 mmHg HI Diastolic BP, Arterial Line 2 61 mmHg Mean Arterial Pressure, Line 2 96 mmHg Heart Rate Monitored 82 bpm Respiratory Rate 22 Breaths/Min HI Oxygen Saturation 98 % 03/11/2022 0:00 EDT Systolic Blood Pressure 134 mmHg Diastolic Blood Pressure 75 mmHg Mean Arterial Pressure (MAP)-BMDI 99 Systolic BP, Arterial Line 2 130 mmHg Diastolic BP, Arterial Line 2 44 mmHg LOW Mean Arterial Pressure, Line 2 69 mmHg Temperature Source Oral Temperature Mode Fahrenheit Temperature, Fahrenheit 98.4 Deg F Heart Rate Monitored 83 bpm Respiratory Rate 23 Breaths/Min HI Oxygen Saturation 97 % 03/10/2022 23:50 EDT Heart Rate Monitored 85 bpm Respiratory Rate 25 Breaths/Min HI Oxygen Saturation 98 % Oxygen Therapy Mode CPAP FiO2 35 % 03/10/2022 23:00 EDT Systolic Blood Pressure 142 mmHg HI Diastolic Blood Pressure 79 mmHg Mean Arterial Pressure (MAP)-BMDI 105 Systolic BP, Arterial Line 2 146 mmHg HI Diastolic BP, Arterial Line 2 50 mmHg LOW Mean Arterial Pressure, Line 2 78 mmHg 03/10/2022 22:00 EDT Systolic Blood Pressure 132 mmHg Diastolic Blood Pressure 68 mmHg Mean Arterial Pressure (MAP)-BMDI 92 Systolic BP, Arterial Line 2 128 mmHg Diastolic BP, Arterial Line 2 43 mmHg LOW Mean Arterial Pressure, Line 2 68 mmHg Heart Rate Monitored 90 bpm Respiratory Rate 22 Breaths/Min HI Oxygen Saturation 97 % 03/10/2022 21:00 EDT Systolic Blood Pressure 166 mmHg HI Diastolic Blood Pressure 82 mmHg Mean Arterial Pressure (MAP)-BMDI 117 Systolic BP, Arterial Line 2 172 mmHg HI Diastolic BP, Arterial Line 2 57 mmHg LOW Mean Arterial Pressure, Line 2 94 mmHg Heart Rate Monitored 85 bpm Respiratory Rate 25 Breaths/Min HI Oxygen Saturation 100 % 03/10/2022 20:51 EDT Heart Rate Monitored 83 bpm Respiratory Rate 24 Breaths/Min HI Oxygen Saturation 97 % Oxygen Therapy Mode Nasal cannula Oxygen Flow Rate 4 Liter/Min 03/10/2022 20:00 EDT Systolic Blood Pressure 155 mmHg HI Diastolic Blood Pressure 82 mmHg Mean Arterial Pressure (MAP)-BMDI 112 Systolic BP, Arterial Line 2 146 mmHg HI Diastolic BP, Arterial Line 2 53 mmHg LOW Mean Arterial Pressure, Line 2 81 mmHg Temperature Source Oral Temperature Mode Fahrenheit Temperature, Fahrenheit 98.7 Deg F Clinical Temperature, C 37.1 Deg C Heart Rate Monitored 83 bpm Respiratory Rate 25 Breaths/Min HI Oxygen Saturation 97 % 03/10/2022 19:00 EDT Systolic Blood Pressure 149 mmHg HI Diastolic Blood Pressure 72 mmHg Mean Arterial Pressure (MAP)-BMDI 103 Systolic BP, Arterial Line 2 149 mmHg HI Diastolic BP, Arterial Line 2 50 mmHg LOW Mean Arterial Pressure, Line 2 80 mmHg Heart Rate Monitored 89 bpm Respiratory Rate 26 Breaths/Min HI Oxygen Saturation 98 % 03/10/2022 18:00 EDT Systolic Blood Pressure 143 mmHg HI Diastolic Blood Pressure 48 mmHg LOW Mean Arterial Pressure (MAP)-BMDI 77 Systolic BP, Arterial Line 2 149 mmHg HI Diastolic BP, Arterial Line 2 72 mmHg Mean Arterial Pressure, Line 2 103 mmHg Heart Rate Monitored 88 bpm Respiratory Rate 21 Breaths/Min HI Oxygen Saturation 98 % 03/10/2022 17:00 EDT Systolic Blood Pressure 168 mmHg HI Diastolic Blood Pressure 81 mmHg Mean Arterial Pressure (MAP)-BMDI 116 Systolic BP, Arterial Line 2 155 mmHg HI Diastolic BP, Arterial Line 2 55 mmHg LOW Mean Arterial Pressure, Line 2 89 mmHg Heart Rate Monitored 87 bpm Respiratory Rate 21 Breaths/Min HI Oxygen Saturation 96 % 03/10/2022 16:00 EDT Systolic Blood Pressure 141 mmHg HI Diastolic Blood Pressure 50 mmHg LOW Mean Arterial Pressure (MAP)-BMDI 79 Systolic BP, Arterial Line 2 157 mmHg HI Diastolic BP, Arterial Line 2 83 mmHg Mean Arterial Pressure, Line 2 113 mmHg Temperature Source Oral Temperature Mode Fahrenheit Temperature, Fahrenheit 98.5 Deg F Clinical Temperature, C 36.9 Deg C Heart Rate Monitored 90 bpm Respiratory Rate 21 Breaths/Min HI Oxygen Saturation 99 % Oxygen Therapy Mode Nasal cannula Oxygen Flow Rate 4 Liter/Min 03/10/2022 15:09 EDT Heart Rate Monitored 81 bpm 03/10/2022 15:03 EDT Heart Rate Monitored 80 bpm Respiratory Rate 20 Breaths/Min Oxygen Saturation 98 % 03/10/2022 15:01 EDT Heart Rate Monitored 81 bpm Respiratory Rate 22 Breaths/Min HI Oxygen Saturation 98 % 03/10/2022 14:16 EDT Heart Rate, Apical 80 bpm 03/10/2022 14:00 EDT Systolic Blood Pressure 168 mmHg HI Diastolic Blood Pressure 81 mmHg Mean Arterial Pressure (MAP)-BMDI 117 Systolic BP, Arterial Line 2 178 mmHg HI Diastolic BP, Arterial Line 2 76 mmHg Mean Arterial Pressure, Line 2 107 mmHg Temperature Source In Error (In Error) Heart Rate Monitored 80 bpm Respiratory Rate 26 Breaths/Min HI Oxygen Saturation 95 % 03/10/2022 13:00 EDT Systolic Blood Pressure 170 mmHg HI Diastolic Blood Pressure 81 mmHg Mean Arterial Pressure (MAP)-BMDI 116 Systolic BP, Arterial Line 2 170 mmHg HI Diastolic BP, Arterial Line 2 61 mmHg Mean Arterial Pressure, Line 2 97 mmHg Heart Rate Monitored 83 bpm Respiratory Rate 22 Breaths/Min HI Oxygen Saturation 98 % 03/10/2022 12:00 EDT Systolic Blood Pressure 146 mmHg HI Diastolic Blood Pressure 87 mmHg Mean Arterial Pressure (MAP)-BMDI 110 Systolic BP, Arterial Line 2 178 mmHg HI Diastolic BP, Arterial Line 2 69 mmHg Mean Arterial Pressure, Line 2 107 mmHg Temperature Source Oral Temperature Mode Fahrenheit Temperature, Fahrenheit 98.5 Deg F Heart Rate Monitored 82 bpm Respiratory Rate 29 Breaths/Min HI Oxygen Saturation 97 % Oxygen Therapy Mode Nasal cannula Oxygen Flow Rate 4 Liter/Min 03/10/2022 11:00 EDT Systolic Blood Pressure 168 mmHg HI Diastolic Blood Pressure 77 mmHg Mean Arterial Pressure (MAP)-BMDI 110 Systolic BP, Arterial Line 2 177 mmHg HI Diastolic BP, Arterial Line 2 69 mmHg Mean Arterial Pressure, Line 2 106 mmHg Heart Rate Monitored 84 bpm Respiratory Rate 21 Breaths/Min HI Oxygen Saturation 98 % 03/10/2022 10:17 EDT Heart Rate Monitored 80 bpm 03/10/2022 10:14 EDT Heart Rate Monitored 79 bpm Respiratory Rate 21 Breaths/Min HI Oxygen Saturation 100 % 03/10/2022 10:12 EDT Heart Rate Monitored 80 bpm Respiratory Rate 23 Breaths/Min HI Oxygen Saturation 99 % 03/10/2022 10:05 EDT Heart Rate Monitored 82 bpm Respiratory Rate 32 Breaths/Min HI Oxygen Saturation 95 % 03/10/2022 10:00 EDT Systolic Blood Pressure 161 mmHg HI Diastolic Blood Pressure 89 mmHg Mean Arterial Pressure (MAP)-BMDI 119 Systolic BP, Arterial Line 2 163 mmHg HI Diastolic BP, Arterial Line 2 65 mmHg Mean Arterial Pressure, Line 2 98 mmHg 03/10/2022 9:00 EDT Systolic Blood Pressure 160 mmHg HI Diastolic Blood Pressure 73 mmHg Mean Arterial Pressure (MAP)-BMDI 112 Systolic BP, Arterial Line 2 161 mmHg HI Diastolic BP, Arterial Line 2 64 mmHg Mean Arterial Pressure, Line 2 97 mmHg Heart Rate Monitored 80 bpm Respiratory Rate 13 Breaths/Min LOW Oxygen Saturation 97 % 03/10/2022 8:00 EDT Systolic Blood Pressure 165 mmHg HI Diastolic Blood Pressure 81 mmHg Mean Arterial Pressure (MAP)-BMDI 116 Systolic BP, Arterial Line 2 166 mmHg HI Diastolic BP, Arterial Line 2 64 mmHg Mean Arterial Pressure, Line 2 100 mmHg Temperature Source Oral Temperature Mode Fahrenheit Temperature, Fahrenheit 98.3 Deg F Heart Rate Monitored 80 bpm Respiratory Rate 13 Breaths/Min LOW Oxygen Saturation 97 % 03/10/2022 7:52 EDT Oxygen Saturation 99 % Oxygen Therapy Mode Nasal cannula Oxygen Flow Rate 4 Liter/Min 03/10/2022 7:51 EDT Heart Rate Monitored 78 bpm Respiratory Rate 16 Breaths/Min Oxygen Saturation 99 % 03/10/2022 7:00 EDT Systolic Blood Pressure 144 mmHg HI Diastolic Blood Pressure 78 mmHg Mean Arterial Pressure (MAP)-BMDI 104 Systolic BP, Arterial Line 2 157 mmHg HI Diastolic BP, Arterial Line 2 62 mmHg Mean Arterial Pressure, Line 2 94 mmHg 03/10/2022 6:00 EDT Systolic Blood Pressure 142 mmHg HI Diastolic Blood Pressure 76 mmHg Mean Arterial Pressure (MAP)-BMDI 101 Systolic BP, Arterial Line 2 155 mmHg HI Diastolic BP, Arterial Line 2 54 mmHg LOW Mean Arterial Pressure, Line 2 86 mmHg Heart Rate Monitored 78 bpm Respiratory Rate 18 Breaths/Min Oxygen Saturation 98 % 03/10/2022 5:00 EDT Systolic Blood Pressure 137 mmHg Diastolic Blood Pressure 69 mmHg Mean Arterial Pressure (MAP)-BMDI 98 Systolic BP, Arterial Line 2 153 mmHg HI Diastolic BP, Arterial Line 2 54 mmHg LOW Mean Arterial Pressure, Line 2 84 mmHg Heart Rate Monitored 80 bpm Respiratory Rate 20 Breaths/Min Oxygen Saturation 98 % 03/10/2022 4:07 EDT Heart Rate Monitored 82 bpm Respiratory Rate 20 Breaths/Min Oxygen Saturation 93 % LOW Oxygen Therapy Mode CPAP FiO2 35 % 03/10/2022 4:00 EDT Temperature Source Oral Temperature Mode Fahrenheit Temperature, Fahrenheit 98.1 Deg F Clinical Temperature, C 36.7 Deg C 03/10/2022 3:58 EDT Heart Rate Monitored 79 bpm Respiratory Rate 22 Breaths/Min HI Oxygen Saturation 99 % Oxygen Therapy Mode Nasal cannula Oxygen Flow Rate 5 Liter/Min 03/10/2022 3:00 EDT Systolic Blood Pressure 144 mmHg HI Diastolic Blood Pressure 76 mmHg Mean Arterial Pressure (MAP)-BMDI 103 Systolic BP, Arterial Line 2 153 mmHg HI Diastolic BP, Arterial Line 2 58 mmHg LOW Mean Arterial Pressure, Line 2 88 mmHg Heart Rate Monitored 78 bpm Respiratory Rate 25 Breaths/Min HI Oxygen Saturation 98 % 03/10/2022 2:00 EDT Systolic Blood Pressure 148 mmHg HI Diastolic Blood Pressure 71 mmHg Mean Arterial Pressure (MAP)-BMDI 102 Systolic BP, Arterial Line 2 157 mmHg HI Diastolic BP, Arterial Line 2 56 mmHg LOW Mean Arterial Pressure, Line 2 88 mmHg Heart Rate Monitored 81 bpm Respiratory Rate 24 Breaths/Min HI Oxygen Saturation 98 % 03/10/2022 1:00 EDT Systolic Blood Pressure 143 mmHg HI Diastolic Blood Pressure 76 mmHg Mean Arterial Pressure (MAP)-BMDI 104 Systolic BP, Arterial Line 2 147 mmHg HI Diastolic BP, Arterial Line 2 59 mmHg LOW Mean Arterial Pressure, Line 2 86 mmHg Heart Rate Monitored 81 bpm Respiratory Rate 23 Breaths/Min HI Oxygen Saturation 98 % Oxygen Therapy Mode Nasal cannula, Other: Oxygen Flow Rate 5 Liter/Min 03/10/2022 0:00 EDT Systolic Blood Pressure 186 mmHg HI Diastolic Blood Pressure 86 mmHg Mean Arterial Pressure (MAP)-BMDI 124 Systolic BP, Arterial Line 2 160 mmHg HI Diastolic BP, Arterial Line 2 61 mmHg Mean Arterial Pressure, Line 2 95 mmHg Temperature Source Oral Temperature Mode Fahrenheit Temperature, Fahrenheit 98.2 Deg F Clinical Temperature, C 36.8 Deg C Clinical Temperature, C 36.8 Deg C Heart Rate Monitored 90 bpm Respiratory Rate 22 Breaths/Min HI Oxygen Saturation 98 % , Measurements from flowsheet : Measurements 03/10/2022 6:10 EDT Height Source Chart Height Entry Format Logan Height/Length, MARTINIQUAIS (ft) 5 ft Height/Length MARTINIQUAIS 4 Inch CLINICALHEIGHT 162.56 cm Routine Weight Source Bed scale Routine Weight Entry Format Metric Routine Weight, Kilograms 93.5 kg Routine Weight Calculation 93.5 kg Body Mass Index (BMI), Routine 35.38 kg/m2 Body Surface Area (BSA), Routine 1.98 m2 , Vitals Signs (last 24 hrs) Last Charted Minimum Maximum Temp 98.4 (MAR 11 12:00) 98.4 (MAR 11 12:00) 98.5 (MAR 10 16:00) Apical HR 80 (MAR 10 14:16) 80 (MAR 10 14:16) 80 (MAR 10 14:16) Mon HR 88 (MAR 11 13:00) 77 (MAR 11 03:00) 92 (MAR 11 12:00) Resp Rate 16 (MAR 11 13:00) 16 (MAR 11 13:00) H 34 (MAR 11 11:00) SBP 129 (MAR 11 13:00) 123 (MAR 11 06:00) H 192 (MAR 11 04:00) DBP 81 (MAR 11 13:00) L 48 (MAR 10 18:00) H 95 (MAR 11 04:00) MAP 99 (MAR 11 13:00) 77 (MAR 10 18:00) 134 (MAR 11 04:00) SpO2 98 (MAR 11 13:00) 94 (MAR 11 08:00) 100 (MAR 10 21:00) Intake & Output Totals Last 24 Hours (7a-7a) Intake (70 Events) Medications (393.92 mL) Enteral Additional Water Given (840 mL) Enteral Feeding Amount (1320 mL) Output (6 Events) Valenzuela Catheter (3420 mL) Input Total: 2553.92 mL Output Total: 3420 mL Balance: -866.08 mL Physical exam contact may be limited to avoid COVID-19 exposure General: No acute distress. Eye: Normal conjunctiva. HENT: Normocephalic, AT. Neck: Supple. Respiratory: Symmetrical chest wall expansion, Decreased breath sounds at bases. . Cardiovascular: Normal rate, Trace edema. Gastrointestinal: Soft, Non-tender, Non-distended. Genitourinary: + Valenzuela. Integumentary: Warm, Dry, No rash. Neurologic: Alert, Oriented, No focal deficits. Results Review Labs (Last four charted values) WBC 5.0 (MAR 11) 4.8 (MAR 10) 8.6 (MAR 09) 8.9 (MAR 08) HB L 8.1 (MAR 11) L 8.0 (MAR 11) L 7.9 (MAR 10) L 7.8 (MAR 10) HCT L 26.2 (MAR 11) L 26.3 (MAR 11) L 25.5 (MAR 10) L 24.9 (MAR 10) Plt L 140 (MAR 11) L 131 (MAR 10) L 131 (MAR 09) L 121 (MAR 08) Na 140 (MAR 11) 141 (MAR 10) 145 (MAR 09) 143 (MAR 08) K 3.6 (MAR 11) L 3.3 (MAR 10) 3.8 (MAR 09) 3.6 (MAR 08) Cl 106 (MAR 11) 108 (MAR 10) H 114 (MAR 09) H 113 (MAR 08) CO2 31 (MAR 11) 27 (MAR 10) 26 (MAR 09) 22 (MAR 08) BUN H 42 (MAR 11) H 41 (MAR 10) H 39 (MAR 09) H 37 (MAR 08) Cr H 1.80 (MAR 11) H 1.80 (MAR 10) H 1.90 (MAR 09) H 2.00 (MAR 08) Glu R H 240 (MAR 11) H 253 (MAR 10) H 233 (MAR 09) H 300 (MAR 08) Ca 9.1 (MAR 11) 9.0 (MAR 10) 8.7 (MAR 09) 8.7 (MAR 08) Lactic 0.5 (MAR 09) 0.5 (MAR 04) 0.6 (MAR 01) PT 10.5 (MAR 04) 11.0 (MAR 02) INR 1.0 (MAR 04) 1.0 (MAR 02) PTT 26.0 (MAR 04) 24.6 (MAR 02) AST 7 (MAR 11) 6 (MAR 10) 9 (MAR 09) L 4 (MAR 08) ALT 14 (MAR 11) L 9 (MAR 10) L 11 (MAR 09) L 10 (MAR 08) ALK P 47 (MAR 11) 39 (MAR 10) 44 (MAR 09) 40 (MAR 08) T Bili 0.5 (MAR 11) 0.5 (MAR 10) 0.4 (MAR 09) 0.7 (MAR 08) PTN 7.2 (MAR 11) 6.9 (MAR 10) 6.6 (MAR 09) 6.4 (MAR 08) ALB L 3.1 (MAR 11) L 2.8 (MAR 10) L 2.3 (MAR 09) L 2.2 (MAR 08) Impression and Plan 1- JAVIER - nonoliguric. Likely prerenal azotemia/ ATN secondary to septic shock and cardiac arrest. Fe urea 25%. Vancomycin level was >50 on last check. 2- CKD 3: Baseline creatinine around 1.6. Patient follows with [facility]. 3- Sepsis 4- Hypernatremia: Resolved; continue with free water 30 cc an hour. 5- Anemia - Tsat 14% 6- Decubitus ulcer post debridement 7- Respiratory distress - Pneumonia on vent. Plan: - Renal function stable.. Cr 1.8 mg/dl . -Hypernatremia resolved. Encourage oral hydration. - Monitor I/O. - Avoid nephrotoxic agents. 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 - Monitor H/H and transfuse for Hgb less than 7.0 High risk and complexity patient. Discussed with the patient and family at bedside. documented in this encounter Plan of Treatment Not on file documented as of this encounter Visit Diagnoses Not on filedocumented in this encounter
--- OUTSIDE RECORDS SUMMARY | 2025-02-21 13:33 | XMS_ITS | Encounter Summary ---
Author Organization [employer] Address [address] [place] [address] Care Team Providers Care Translation Director Name Role Phone Unavailable Primary Care Provider Unavailabl e Encounter Details Date Type Department Care Team (Late st Contact Info) Description 03/10/2022 Transcribed Document [facility] [place] Family Medicine [address] [place] [address] ProviderFlorentino MD [address] [place] [address] Social History Tobacco Use Types Packs/Day Years Used Date Smoking Tobacco: Never Assessed Comments Unknown Sex and Gender Information Value Date Recorded Sex Assigned at Not on file Legal Sex Female 1:44 PM CDT Gender Identity Not on file Sexual Orientation Not on file documented as of this encounter Miscellaneous Notes * Cerner Conversion Note - Florentino Lynne MD - 03/10/2022 1:19 PM CDT UM Authorization Entered On: 03/10/2022 13:19 EDT Performed On: 03/10/2022 13:19 EDT by COLT MORRELL RN Primary Insurance Authorization Authorization and Policy Numbers : Insurance 1 Health Plan: [facility] Policy Number: [id number] Authorization Number: Insurance Primary Name : [facility] Policy Number: [id number] Authorization Number: Authorization Status-Primary : Drg approved Reference Number-Primary : [id number] Number of Days Authorized-Primary : 8 Day(s) Authorized Service Begin Date-Primary : 03/01/2022 EDT Authorized Service End Date-Primary : 03/09/2022 EDT Authorization Comments-Primary : CLINICAL UPDATE FAXED VIA [employer] 03/05-03/10 Historical Authorization Comments-Primary : Comment 1: UPLOADED CLINICALS VIA [employer] AND FAXED TO [facility]/ AWAITING CALLBACK/ REFERENCE # LISTED ON FRONT PAGE. (Jelani Anne, computer network engineer 03/04/2022 14:03) Comment 2: Authorized per fax 03/02/22 @ [id number]. Approved DRG admission. Next reivew due 03/10. -Hannah Castillo. (Mallory Sanchez, Cad Developer 03/04/2022 11:20) Comment 3: Rec vm from Hannah at [facility] on 1753 line on 03/02/22 at 8:42am She is req clinical be sent in Transf VM to [facility] so she could follow up (SHERIF LYNCH, Telex Operator 03/04/2022 09:42) Comment 4: auth # per star notes, faxed clinicals via [facility] 03/01 (JOSEPH GUTIERREZ, RN-UTILIZATION MANAGEMENT REVIEW NON-EXEMPT 03/02/2022 11:28) COLT MORRELL, PRIMO - 03/10/2022 13:19 EDT documented in this encounter Plan of Treatment Not on file documented as of this encounter Visit Diagnoses Not on filedocumented in this encounter
--- OUTSIDE RECORDS SUMMARY | 2025-02-21 13:33 | XMS_ITS | Encounter Summary ---
Author Organization [employer] Address [address] [place] [address] Care Team Providers Care Branch Manager Trainee Name Role Phone Unavailable Primary Care Provider Unavailabl e Encounter Details Date Type Department Care Team (Late st Contact Info) Description 03/12/2022 Transcribed Document [facility] [address] [place] [address] ProviderFlorentino MD [address] [place] [address] Social History Tobacco Use Types Packs/Day Years Used Date Smoking Tobacco: Never Assessed Comments Unknown Sex and Gender Information Value Date Recorded Sex Assigned at Not on file Legal Sex Female 1:44 PM CDT Gender Identity Not on file Sexual Orientation Not on file documented as of this encounter Miscellaneous Notes * Cerner Conversion Note - Florentino Lynne MD - 03/12/2022 6:37 PM CDT Patient: ALYSSA AZUL Age: 61 years Sex: Female : 1960 Associated Diagnoses: None Author: HIGINIO AREVALO MD-INF Antibiotics: Zosyn and doxy CC: Sacral wound Subjective: Patient moved out to floor and no fevers and HD stable with no acute changes. Patient remained stable today no fevers Objective: Vitals Signs (last 24 hrs) Last Charted Minimum Maximum Temp 97.7 (MAR 12 06:13) 97.7 (MAR 12 06:13) 98.1 (MAR 12 03:16) Apical HR 91 (MAR 12 18:24) 91 (MAR 12 18:24) 91 (MAR 12 18:24) Mon HR 83 (MAR 12 17:08) 78 (MAR 12 05:40) 90 (MAR 11 20:54) Resp Rate 18 (MAR 12 17:08) 16 (MAR 11 19:12) 20 (MAR 12 03:16) SBP 127 (MAR 12 06:13) 113 (MAR 11 19:12) H 156 (MAR 12 03:16) DBP 70 (MAR 12 06:13) 61 (MAR 11 19:12) 87 (MAR 12 03:16) MAP 82 (MAR 12 06:13) 82 (MAR 11 19:12) 107 (MAR 12 03:16) SpO2 97 (MAR 12 17:08) 97 (MAR 12 11:32) 100 (MAR 12 03:16) PE: General: Patient will awaken and more alert. HEENT: sclera white without conjunctival injection. No erythema, exudate or ulceration. No thrush present. Neck: Supple without nuchal rigidity Lungs: Clear to auscultation bilaterally without wheezes, rales, or rhonchi. Increased respiratory effort Cardiovascular: normal S1/S2; RRR, no m/r/g. Abdomen: soft, non-tender, non-distended, positive bowel sounds throughout. Lower extremity: No cyanosis, clubbing or edema Neuro: paraplegia : Left hip and sacral wound with wound VAC in place LE with wounds LABS: Labs (Last four charted values) WBC 5.3 (MAR 12) 5.0 (MAR 11) 4.8 (MAR 10) 8.6 (MAR 09) HB L 8.3 (MAR 12) L 7.3 (MAR 12) L 8.2 (MAR 11) L 8.3 (MAR 11) HCT L 26.9 (MAR 12) L 23.6 (MAR 12) L 26.3 (MAR 11) L 26.3 (MAR 11) Plt L 146 (MAR 12) L 140 (MAR 11) L 131 (MAR 10) L 131 (MAR 09) Na 138 (MAR 12) 140 (MAR 11) 141 (MAR 10) 145 (MAR 09) K 3.5 (MAR 12) 3.6 (MAR 11) L 3.3 (MAR 10) 3.8 (MAR 09) Cl L 101 (MAR 12) 106 (MAR 11) 108 (FEB 11) H 114 (MAR 09) CO2 29 (MAR 12) 31 (MAR 11) 27 (MAR 10) 26 (MAR 09) BUN H 49 (MAR 12) H 42 (MAR 11) H 41 (MAR 10) H 39 (MAR 09) Cr H 2.00 (MAR 12) H 1.80 (MAR 11) H 1.80 (MAR 10) H 1.90 (MAR 09) Glu R H 176 (MAR 12) H 240 (MAR 11) H 253 (MAR 10) H 233 (MAR 09) Ca 8.9 (MAR 12) 9.1 (MAR 11) 9.0 (MAR 10) 8.7 (MAR 09) Lactic 0.5 (MAR 09) 0.5 (MAR 04) 0.6 (MAR 01) PT 10.3 (MAR 12) 10.5 (MAR 04) 11.0 (MAR 02) INR 1.0 (MAR 12) 1.0 (MAR 04) 1.0 (MAR 02) PTT 27.5 (MAR 12) 26.0 (MAR 04) 24.6 (MAR 02) AST 18 (MAR 12) 7 (MAR 11) 6 (MAR 10) 9 (MAR 09) ALT 24 (MAR 12) 14 (MAR 11) L 9 (MAR 10) L 11 (MAR 09) ALK P 52 (MAR 12) 47 (MAR 11) 39 (MAR 10) 44 (MAR 09) T Bili 0.6 (MAR 12) 0.5 (MAR 11) 0.5 (MAR 10) 0.4 (MAR 09) PTN 7.4 (MAR 12) 7.2 (MAR 11) 6.9 (MAR 10) 6.6 (MAR 09) ALB L 3.1 (MAR 12) L 3.1 (MAR 11) L 2.8 (MAR 10) L 2.3 (MAR 09) MICRO: resp culture with kleb IMAGING: Radiology Results (Last 48 hours) [id number] -- 03/01/2022 17:45 CR Chest 1 Vw Portable (03/11/2022 11:37) Result: PORTABLE CHEST; HISTORY: Dyspnea.COMPARISON: 1 day prior.FINDINGS: The heart is mildly enlarged. The mediastinum isunremarkable. There are improved bilateral interstitial opacities. Thereis left basilar opacity and a left pleural effusion that appearunchanged. There is no pneumothorax. The support tubes and lines arestable in position.IMPRESSION: 1. Mild cardiomegaly with improving bilateral interstitial opacities.2. Stable left basilar opacity and left pleural effusion.Images reviewed, interpreted, and dictated by Dr. Eri Almanzar.Transcribed by Violeta Lozano PA-C.I have personally viewed, interpreted and dictated the examination. Ihluis fernando read and agree with the above final transcribed report. CR Chest 1 Vw Portable (03/12/2022 06:55) Result: PORTABLE CHEST 03/12/2022 4:00 AM HISTORY: Shortness of breath.COMPARISON: One day prior.FINDINGS: The heart is normal in size . Metallic densities overlyingthe neck and left upper chest are unchanged. There has been slightworsening of bilateral perihilar and bibasilar opacities. There is nopneumothorax . IMPRESSION: Slightly worsening bibasilar and bilateral perihilaropacities.Images reviewed, interpreted, and dictated by Dr. Eri Almanzar.Transcribed by Yunier Perez PA-C.I have personally viewed, interpreted and dictated the examination. Chayo read and agree with the above final transcribed report. IMPRESSION: - Sepsi with klebsiella pneumonia - decubitus wounds from immobility - Large left gluteal soft tissue infection, ulceration, necrosis, to level of soft tissue: Status post I&D x3 at [facility] with large open wound. 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 documented in this encounter Plan of Treatment Not on file documented as of this encounter Visit Diagnoses Not on filedocumented in this encounter
--- OUTSIDE RECORDS SUMMARY | 2025-02-21 13:33 | XMS_ITS | Encounter Summary ---
Author Organization [employer] Address [address] [place] [address] Care Team Providers Care Rackman Name Role Phone Unavailable Primary Care Provider Unavailabl e Encounter Details Date Type Department Care Team (Late st Contact Info) Description 03/12/2022 Transcribed Document [facility] [place] [address] [place] [address] ProviderFlorentino MD [address] [place] [address] Social History Tobacco Use Types Packs/Day Years Used Date Smoking Tobacco: Never Assessed Comments Unknown Sex and Gender Information Value Date Recorded Sex Assigned at Not on file Legal Sex Female 1:44 PM CDT Gender Identity Not on file Sexual Orientation Not on file documented as of this encounter Miscellaneous Notes * Cerner Conversion Note - Historical ProviderMD - 03/12/2022 3:31 PM CDT Attempt to Treat, PT Entered On: 03/12/2022 15:32 EDT Performed On: 03/12/2022 15:31 EDT by ELA HEADLEY PT Attempt to Treat Unable to Treat Due To : Patient Refusal Inability to Treat Comment : Pt stated she just don't feel well today. Pt asks to skip PT today and will try tomoroow. ELA HEADLEY, PT - 03/12/2022 15:31 EDT documented in this encounter Plan of Treatment Not on file documented as of this encounter Visit Diagnoses Not on filedocumented in this encounter
--- OUTSIDE RECORDS SUMMARY | 2025-02-21 13:33 | XMS_ITS | Encounter Summary ---
Author Organization [employer] Address [address] [place] [address] Care Team Providers Care Ordnance Engineer Name Role Phone Unavailable Primary Care Provider Unavailabl e Encounter Details Date Type Department Care Team (Late st Contact Info) Description 03/12/2022 Transcribed Document [facility] Pulm & Critical Care Medicine [address] [place] [address] Rodrick Durbin MD [address] [place], [place] [id number] Social History Tobacco Use Types Packs/Day Years Used Date Smoking Tobacco: Never Assessed Comments Unknown Sex and Gender Information Value Date Recorded Sex Assigned at Not on file Legal Sex Female 1:44 PM CDT Gender Identity Not on file Sexual Orientation Not on file documented as of this encounter Miscellaneous Notes * Cerner Conversion Note - Rodrick Durbin MD - 03/12/2022 9:18 AM EDT Patient: IRMA AZUL Age: 61 years Sex: Female : 1960 Associated Diagnoses: None Author: RODRICK DURBIN MD Basic Information Pulmonary/CCM Date of Admission: 03/01/22 Date of Consultation: 03/01/22 Referring Provider: Elaine Ramires MD ([facility]) Reason for Consultation: Ventilator/CCM CC: Unobtainable History of Present Illness: This is a 61-year-old female with underlying medical history including paraplegia, CKD, stage III, T2DM, and HTN. At time of evaluation, patient is intubated, sedated, and on ventilator support and both son and [id number]-[id number] are present at bedside to give some medical background; therefore, history and hospital course is primarily retrieved from them and through medical chart review. In summary, patient was admitted to [facility] on 02/17/22 with symptoms including dyspnea, fever, chills, and cough with sputum production x1 week. She was admitted for further evaluation and treatment of suspected PNA as well as debridement of DTI to left buttock. Apparently, on 02/21 at approximately 0400, went into cardiac arrest that required emergent intubation due to no pulse or BP. IH/TTM was not initiated. On 02/21, patient had FOBS procedure with negative cultures. Likewise, she had debridement of left buttock DTI with abscess under anesthesia, which demonstrated patchy areas of muscular necrosis and extensive multifocal abscess cavity with surrounding soft tissue necrosis. However, pathology was not sent. Due to higher level care, she was transferred to [facility] on 02/22. Patient was extubated on 02/22 but apparently reintubated later that afternoon due to respiratory distress. Patient had SBTs and was reextubated on 02/25 but unfortunately required reintubation on 03/01 for worsening respiratory status and failing BiPAP. Therefore, patient was transferred to our facility due to lack of pulmonary/CCM coverage at OSH. Of note, patient has had tracheostomy/PEG in the past, but son is not sure of what year but states around 2009. Pulmonary/CCM has been consulted for ventilator/CCM in this clinical setting. Past Medical History Paraplegia, since age 8 CKD, stage III T2DM HTN Past Surgical History Trach/PEG in 2009, per son Unilateral nephrectomy Social History Unable to obtain Family History Unable to obtain PROGRESS NOTES: 03/02: Patient intubated, hemodynamically stable. RN report sick secretions from the ET tube. 03/03: Remains intubated, sedated with fentanyl/propofol, and on ventilator support with PEEP 5, FiO2 40%. Hemodynamically, on no IV pressors. Febrile, TM 101.8. No leukocytosis. Good UOP, approximately 1.4 L in the last 24 hours with -692cc. Renal function improving, Cr 2.40, BUN 55. Patient to undergo FOBS procedure later today. Discussed with RN at bedside, no acute changes or events overnight. 7/5: Patient in the ICU on the ventilator. Sedated with propofol and fentanyl, awake and following commands, RASS 0. Minimal secretions from endotracheal tube. Good urine output, renal function slowly improving. Hemodynamically stable. Currently afebrile. Reviewed chest x-ray, worsening opacities of right lung field. 03/05: Patient was seen and examined today still on the mechanical ventilation satting 98% on 40% FiO2 no tachypnea and tachycardia. ABG ordered currently pending sodium trending up 149 spoke to the color checker roving or yarn will start patient on tube feeds will add free water 50 cc/h. Creatinine 2.2 white cell count 5.7 currently patient on Zosyn cultures so far negative chest x-ray reviewed independently showed improvement of bilateral infiltrate but still bilateral lower lobe infiltrate concern for pleural effusions along with atelectasis/pneumonia. Echo pending but reviewing input and output patient is -1400 albumin is 2.8. 03/06: Patient remains on the ventilator. Awake and following commands, nods her head yes and no to questions, RASS 0. Good urine output, fluid balance positive. Renal function stable. Hemodynamically not requiring vasopressors. Currently afebrile. during round pt on fentanly, spoke with the nurse and will titrate down to zero over the next 1-2hrs and then place pt on SBT. CXR ordered, currently pending. 03/07: Patient in the ICU, on the ventilator. Awake and following commands, RASS 0. Nods her head to yes and no questions. Good urine output, fluid balance positive, renal function stable. Hemodynamically stable. Afebrile. On tube feeding. Placed on spontaneous breathing trial but unfortunately patient got tired out and became tachypneic. H&H showed hemoglobin 6.8 we will give 1 unit of blood. Spoke to the nurse at the bedside and plan daily. Chest x-ray reviewed independently showed improvement of bilateral lower lobe infiltrate. We will place patient on breathing trial again in the afternoon. 03/08: On ventilator support, PEEP 8, FiO2 50%. Awake and following commands, on fentanyl for sedation, RASS 0. Good urine output, fluid balance positive approximately 1600 cc. Renal function slightly improved today. Hemodynamically stable. Afebrile. Tolerating tube feeding well. Placed on spontaneous breathing trial pressure support 06/04 03/09: Patient successfully liberated from ventilator yesterday. She is awake and following commands. Denies chest pain, fever, chills. Slight cough productive of phlegm. On 4 L O2 with adequate saturation. Continues to tolerate tube feeding well. Good urine output with positive fluid balance. Renal function slightly improved. Received IV Bumex with good response but still no significant negative fluid balance noted. We will give IV Bumex 1 mg twice daily x2 doses today. ABG this morning showed uncompensated respiratory acidosis. Encouraged incentive spirometry 03/10:Patient was seen and examined today awake alert oriented responding to commands. Currently patient on 4 L nasal cannula satting 99% will titrate FiO2 down as far as sat above 89, tachypnea improved.. Labs reviewed PO2 103, pH 7.36 with acute on chronic hypercapnic respiratory failure. We will use BiPAP 4 hours on 4 hours off plus at night. Hypokalemia 3.3 will replace target for creatinine trending down White cell count within normal. Patient on Zosyn started on 03/06 will continue for total of 8 days. Chest x-ray reviewed independently showing left lower lobe opacity possible consideration plus minus pleural effusion ultrasound lung on 03/03 noted trivial pleural effusion bilaterally we will start patient on CPT 03/11: Resting in bed, on CPAP. No acute complaints this morning. Hemodynamically, no IV pressors. Afebrile, no leukocytosis. Good UOP, approximately 3.4 L in last 24 hours with -1.1L fluid balance. Renal function unchanged, Cr 1.80, BUN 42. Tolerating TF at 55cch with FW at 30cch. No overnight events. 03/12: Seen and examined on 3L NC, wore CPAP overnight. Awake and alert, reports her breathing feels improved. Does endorse productive cough. H&H stable, afebrile. Creatinine worsening, 850mL UOP and -286mL I&Os. Passed FEES yesterday, tolerating PO diet. Review of Systems Constitutional: Weakness, Fatigue. Eye: No recent visual problem. Ear/Nose/Mouth/Throat: No nasal congestion. Respiratory: Cough, Sputum production, No shortness of breath, No hemoptysis. Cardiovascular: No palpitations. Gastrointestinal: No vomiting. Genitourinary: No hematuria. Hematology/Lymphatics: No bruising tendency. Endocrine: No excessive thirst. Immunologic: No recurrent fevers. Musculoskeletal: No joint pain. Integumentary: No rash. Neurologic: Alert and oriented X4. Psychiatric: Anxiety. Health Status Allergies: Allergic Reactions (Selected) No [...] IV Push, Q15Min, PRN: Other (See Comment) DuoNeb 0.5 mg-2.5 mg/3 mL inhalation solution: 3 mL, Nebulized Inhalation, RT_Q6H DuoNeb 0.5 mg-2.5 mg/3 mL inhalation solution: 3 mL, Nebulized Inhalation, RT_Q6H, PRN: Dyspnea Fish Oil: 5,000 mg, Oral, BID PRAVAstatin: 40 mg, Oral, At Bedtime Pepcid: 20 mg, Oral, At Bedtime Pulmicort Respules: 0.5 mg, Nebulized [...] IV Piggyback, Q12H, PRN: Other (See Comment) docusate sodium: 100 mg, Feeding Tube, Daily [...] insulin glargine: 28 Units, SubCutaneous, Daily insulin lispro 76 kg - 100 k kg - 100 kg scale, SubCutaneous, AC and at Bedtime magnesium sulfate: 2 Gram, 50 mL, 25 [...] 1 Tab, Oral, At Bedtime, 0 Refill(s), Medications (39) Active Scheduled: (14) albuterol-ipratropium inh 3 mL 3 mL, Nebulized Inhalation, RT_Q6H budesonide 0.5 mg/2 mL inh susp 0.5 mg 2 mL, Nebulized Inhalation, RT_BID docusate sod 100 mg/10 mL liq 100 mg 10 mL, Feeding Tube, Daily doxycycline hyclate 100 mg cap 100 mg 1 Cap, Oral, BID famotidine 20 mg tab 20 mg 1 Tab, Oral, At Bedtime ferrous sulfate 325 mg EC tab 325 mg 1 Tab, Oral, BID With Meals guaiFENesin 200 mg tab 400 mg 2 Tab, Oral, Q6H heparin 5,000 units/1 mL inj 5,000 Units 1 mL, SubCutaneous, Q8H insulin glargine 1 unit/0.01 mL inj 28 Units 0.28 mL, SubCutaneous, Daily insulin lispro 1 unit/0.01 mL inj 76 kg - 100 kg scale, SubCutaneous, AC and at Bedtime omega-3 fish oil 1,000 mg cap 5,000 mg 5 Cap, Oral, BID piperacillin-tazobactam + Dextrose 5% in Water 50 mL 2.25 Gram, IV Piggyback, Q6HInt PRAVAstatin sodium 20 mg tab 40 mg 2 Tab, Oral, At Bedtime senna 8.8 mg/5 mL liq 8.8 mg 5 mL, Oral, At Bedtime Continuous: (1) niCARdipine 25 mg + Dextrose 5% in [...] 5 mL, IV Piggyback, Q6H Problem list: All Problems Chronic kidney disease (CKD), stage III (moderate) / SNOMED CT 0086245718 / Confirmed Diabetes / SNOMED CT 384017870 / Confirmed History of obstructive sleep apnea / IMO [id number] / Confirmed Hyperlipidemia / SNOMED CT 87835853 / Confirmed Hypertension / SNOMED CT 0649657802 / Confirmed Canceled: Type 1 diabetes with stage 3 chronic kidney disease moderate GFR 30-59 / SNOMED CT 332805255, Active Problems (5) Chronic kidney disease (CKD), stage III (moderate) Diabetes History of obstructive sleep apnea Hyperlipidemia Hypertension Physical Examination VS/Measurements Vitals Signs (last 24 hrs) Last Charted Minimum Maximum Temp 97.7 (MAR 12 06:13) 97.7 (MAR 12 06:13) 98.4 (MAR 11 12:00) Apical HR 90 (MAR 11 17:55) 90 (MAR 11 17:55) 90 (MAR 11 17:55) Mon HR 80 (MAR 12 06:13) 78 (MAR 12 05:40) 92 (MAR 11 12:00) Resp Rate 18 (MAR 12 06:13) 14 (MAR 11 17:50) H 34 (MAR 11 11:00) SBP 127 (MAR 12 06:) 113 (MAR 11 19:12) H 181 (MAR 11 17:50) DBP 70 (MAR 12:13) 61 (MAR 11 19:12) H 119 (MAR 11 17:50) MAP 82 (MAR 12 06:13) 82 (MAR 11 19:12) 134 (MAR 11 17:50) SpO2 100 (MAR 12 03:16) 97 (MAR 11 10:12) 100 (MAR 11 14:00) Intake & Output Totals Last 24 Hours (7a-7a) Intake (26 Events) Medications (223.03 mL) Enteral Additional Water Given (120 mL) Enteral Feeding Amount (220 mL) Output (3 Events) Valenzuela Catheter (850 mL) Input Total: 563.03 mL Output Total: 850 mL Balance: -286.97 mL General: Alert and oriented, No acute distress, 3L NC. Eye: Pupils are equal, round and reactive to light, Extraocular movements are intact, Normal conjunctiva. HENT: Normocephalic, Oral mucosa is moist. Neck: Supple, No thyromegaly. Respiratory: Breath sounds are equal, Symmetrical chest wall expansion, Coarse crackles R>L, diminished at bases bilaterally.. Cardiovascular: Normal rate, Regular rhythm, S1, S2, Bilateral ower extremity edema. Gastrointestinal: Soft, Non-tender, Non-distended, Normal bowel sounds. Genitourinary: Support: Urinary catheter ( Indwelling ). Musculoskeletal: Paraplegic at baseline. Integumentary: Warm, Dry, Wound VAC in place. . Neurologic: Alert, Oriented, No focal deficits. Psychiatric: Cooperative. Review / Management Results review: Labs (Last four charted values) WBC 5.3 (MAR 12) 5.0 (MAR 11) 4.8 (MAR 10) 8.6 (MAR 09) HB L 8.3 (MAR 12) L 7.3 (MAR 12) L 8.2 (MAR 11) L 8.3 (MAR 11) HCT L 26.9 (MAR 12) L 23.6 (MAR 12) L 26.3 (MAR 11) L 26.3 (MAR 11) Plt L 146 (MAR 12) L 140 (MAR 11) L 131 (FEB 11) L 131 (MAR 09) Na 138 (MAR 12) 140 (MAR 11) 141 (MAR 10) 145 (MAR 09) K 3.5 (MAR 12) 3.6 (MAR 11) L 3.3 (MAR 10) 3.8 (MAR 09) Cl L 101 (MAR 12) 106 (MAR 11) 108 (MAR 10) H 114 (MAR 09) CO2 29 (MAR [...] 2.8 (MAR 10) L 2.3 (MAR 09) . Radiology Results (Last 48 hours) [id number] -- 03/01/2022 17:45 CR Chest 1 Vw [...] personally viewed, interpreted and dictated the examination. Ihave read and agree with the above final transcribed report. -Last echo from 02/17 from outside facility showed mildly enlarged left atrium, ejection fraction 55% grade 2 diastolic dysfunction. -BLE venous duplex 03/02: Negative for SVT/DVT bilaterally. ECHO done on 03/09/22: Impression: Normal sized left ventricle. Moderate left ventricular hypertrophy. Visually estimated ejection fraction 55% +/- 5%. Normal left ventricular systolic function. Indeterminate diastolic function. No significant valvular heart disease. Impression and Plan Pulmonary Acute hypoxic respiratory failure, on MV.. Extubated on 03/08/22. Bilateral lower lobe pneumonia likely from aspiration. respiratory cultures from 03/01/[address] Chest 03/01: Extensive right perihilar and bibasilar consolidations with bilateral pleural effusions and paratracheal reactive adenopathy. Concern for underlying mass not excluded. No known history of chronic lung diseases Smoker status not known Klebsiella pneumonia on 03/01/2022 Cardiovascular S/p cardiac arrest HTN urgency Echocardiogram done on 03/09/2022. EF 55%. Normal systolic function. Moderate LVH. Indeterminate diastolic function. No significant valvular heart disease. ID Severe sepsis secondary to right lower lobe aspiration pneumonia-improving. bilateral lower lobe pneumonia secondary to Klebsiella pneumonia. PNA PCR panel from sputum done on 03/01/22: Klebsiella and MSSA. Leukocytosis -- improving SSTI on R hip Neuro Off sedation. Mental status back to her baseline. Alert, awake, oriented x3. Baseline paraplegia Baseline mentation not observed Renal Acute kidney injury. Non oliguric type-improving. CKD. Electrolyte abnormalities Endocrine T2DM with hyperglycemia. Glycemic control Hematology/Oncology Leukocytosis Morbid Obesity. BMI of 34.1 PLAN: Supplemental O2 for goal sat 92-96% - currently on 3L NC CPAP HS Encourage IS/FVD DuoNebs Q6h. Pulmicort BID Anbx per ID: Kalina Maya Renal following PT/OT following PO diet Glycemic control: Target glucose 140-180mg/dl. Prophylaxis: Pepcid, Heparin SQ I discussed with patient the need to have a follow-up CT chest in 6 weeks. We will schedule patient to follow-up with us on as outpatient Pulmonary will sign off at this time. Please call if needed further. Prognosis: Fair CODE STATUS: Full Code documented in this encounter Plan of Treatment Not on file documented as of this encounter Visit Diagnoses Not on filedocumented in this encounter
--- OUTSIDE RECORDS SUMMARY | 2025-02-21 13:33 | XMS_ITS | Encounter Summary ---
Author Organization [employer] Address [address] [place] [address] Care Team Providers Care Red Hat Engineer Name Role Phone Unavailable Primary Care Provider Unavailabl e Encounter Details Date Type Department Care Team (Late st Contact Info) Description 03/11/2022 Transcribed Document [facility] Family Medicine [facility] [place] [address] ProviderFlorentino MD [facility] [place] [address] Social History Tobacco Use Types Packs/Day Years Used Date Smoking Tobacco: Never Assessed Comments Unknown Sex and Gender Information Value Date Recorded Sex Assigned at Not on file Legal Sex Female 1:44 PM CDT Gender Identity Not on file Sexual Orientation Not on file documented as of this encounter Miscellaneous Notes * Cerner Conversion Note - Florentino Lynne MD - 03/11/2022 6:43 AM CDT Patient: ALYSSA AZUL Age: 61 years Sex: Female : 1960 Associated Diagnoses: None Author: JAMILAH GEORGES MD Basic Information Pulmonary/CCM Date of Admission: 03/01/22 Date of Consultation: 03/01/22 Referring Provider: Elaine Ramires MD ([facility]) Reason for Consultation: Ventilator/CCM CC: Unobtainable History of Present Illness: This is a 61-year-old female with underlying medical history including paraplegia, CKD, stage III, T2DM, and HTN. At time of evaluation, patient is intubated, sedated, and on ventilator support and both son and ayavhlzm-ti-jfh are present at bedside to give some [...] higher level care, she was transferred to [facility] on 02/22. Patient was extubated on [...] bedside, no acute changes or events overnight. 03/04: Patient in the ICU on the ventilator. [...] sodium trending up 149 spoke to the utility forester will start patient on tube feeds will [...] with FW at 30cch. No overnight events. Intake & Output Totals Last 24 Hours (7a-7a) Intake (64 Events) Medications (393.92 mL) Enteral Additional Water Given (750 mL) Enteral Feeding Amount (1155 mL) Output (6 Events) Valenzuela Catheter (3420 mL) Input Total: 2298.92 mL Output Total: 3420 mL Balance: -1121.08 mL Review of Systems Constitutional: Weakness, Fatigue. Eye: No recent visual problem. Ear/Nose/Mouth/Throat: No nasal congestion. Respiratory: No hemoptysis. Cardiovascular: No palpitations. Gastrointestinal: No [...] Tab, Oral, At Bedtime, 0 Refill(s), Medications (41) Active Scheduled: (15) albuterol-ipratropium inh [...] IV Piggyback, Q6H Problem list: All Problems History of obstructive sleep apnea / IMO [id number] / Confirmed Diabetes / SNOMED CT 837315762 / Confirmed Hyperlipidemia / SNOMED CT 35862000 / Confirmed Hypertension / SNOMED CT 1859857797 / Confirmed Chronic kidney disease (CKD), stage III (moderate) / SNOMED CT 3122613232 / Confirmed Canceled: Type 1 diabetes with stage 3 chronic kidney disease moderate GFR 30-59 / SNOMED CT 290762532, Active Problems (5) Chronic kidney disease (CKD), stage III (moderate) Diabetes History of obstructive sleep apnea Hyperlipidemia Hypertension Physical Examination VS/Measurements Vitals Signs (last 24 hrs) Last Charted Minimum Maximum Temp 98.7 (MAR 10 20:00) 98.7 (MAR 10 20:00) 98.3 (MAR 10 08:00) Apical HR 80 (MAR 10 14:16) 80 (MAR 10 14:16) 80 (MAR 10 14:16) Mon HR 91 (MAR 11 04:28) 78 (MAR 10 07:51) 91 (MAR 11 04:28) Resp Rate 20 (MAR 11:28) L 13 (MAR 10 08:00) H 32 (MAR 10 10:05) SBP 132 (MAR 10 22:00) 132 (MAR 10 22:00) H 170 (MAR 10 13:00) DBP 68 (MAR 10:00) L 48 (MAR 10 18:00) 89 (MAR 10 10:00) MAP 92 (MAR 10 22:00) 77 (MAR 10 18:00) 119 (MAR 10 10:00) SpO2 99 (MAR 11 04:28) 95 (MAR 10:05) 100 (MAR 10:14) Intake & Output Totals Last 24 Hours (7a-7a) Intake (64 Events) Medications (393.92 mL) Enteral Additional Water Given (750 mL) Enteral Feeding Amount (1155 mL) Output (6 Events) Valenzuela Catheter (3420 mL) Input Total: 2298.92 mL Output Total: 3420 mL Balance: -1121.08 mL General: Alert and oriented, No acute distress. Eye: Pupils are equal, round and reactive [...] review: Labs (Last four charted values) WBC 5.0 (MAR 11) 4.8 (MAR 10) 8.6 (MAR 09) 8.9 (MAR 08) HB L 8.0 (MAR 11) L 7.9 (MAR 10) L 7.8 (MAR 10) L 7.4 (MAR 10) HCT L 26.3 (MAR 11) L 25.5 (MAR 10) L 24.9 (MAR 10) L 23.8 (MAR 10) Plt L 140 (MAR 11) [...] 2.3 (MAR 09) L 2.2 (MAR 08) . Radiology Results (Last 48 hours) [id number] -- 03/01/2022 17:45 CR Chest 1 Vw Portable (03/10/2022 04:21) Result: PORTABLE CHEST 03/10/2022 5:00 AMHISTORY: Shortness of breathCOMPARISON: 1 day priorFINDINGS: The left support lines are stable. The cardiac silhouette isenlarged. There is ectasia of the aorta. There is mild pulmonaryvascular congestion. Patchy opacities are noted in the lung bases andare not significantly changed from the previous exam. Findings mayrepresent mild edema or pneumonia. There are stable bilateral pleuraleffusions. There is no pneumothorax. The visualized osseous structuresdemonstrate no acute abnormalities.IMPRESSION: Pulmonary vascular congestion and stable bilateral pleuraleffusions.Stable patchy bibasilar opacities could represent edema or pneumonia. Images reviewed, interpreted, and dictated by Dr. Dariel Philippe.Transcribed by Caroline Scales (R).I have personally viewed, interpreted and dictated the examination. Ihave read and agree with the above final transcribed report. -CT chest from 03/01/2022 reviewed showed RLL opacity, right hilar opacity, LLL consolidation, right side effusion. will proceed with bronchoscopy for evaluation for any endobronchial lesion. Pt will need CT chest with contrast in 8 weeks and if LLL opacity and hilar LN persist then pt will need bronchoscopy and EBUS. -Last echo from 02/17 from outside facility [...] injury. Non oliguric type-improving. CKD. Electrolyte abnormalities Hyperchloremia Endocrine T2DM with hyperglycemia. Glycemic control Hematology/Oncology Leukocytosis Morbid Obesity. BMI of 34.1 PLAN: Extubated on 03/08/22. Supplemental O2, currently on 4 L/min, titrate oxygen down as far as sat above 89. NIPPV: BIPAP settings 15/5, rate 18 PRN for increased work of breathing. Wears CPAP overnight. Chest t x-ray reviewed independently showed left lower lobe opacity likely atelectasis, ultrasound chest on 03/03 showed 3 view pleural effusions bilateral, continue Cpt every 6 hours Encourage incentive spirometry ABG noted acute on chronic hypercapnic respiratory failure recommend continue with the BiPAP as needed for increased work of breathing DuoNebs Q6h. Pulmicort nebs BID. Family agreed to bronchoscopy on 03/05 which was indicated for worsening right lung infiltrate with thick secretions. Please refer to bronchoscopy note for further details. Chest PT QID. Mucomyst nebs x3d. ID following. Case has been discussed with Dr. Vazquez in details plan of care was updated. Current antibiotics per ID: Zosyn, Doxy. PNA PCR panel from sputum done on 03/01/22: Klebsiella and MSSA. Trend infectious markers. If she becomes afebrile or leukocytosis worsens, will order new blood/urine cultures. Nephrology following. Glycemic control: Target glucose 140-180mg/dl. Nutrition: Case has been discussed with the utility forester, currently on tube feeds, trophic feeding advance to goal. Corpak in place. GI prophylaxis: Pepcid. VTE prophylaxis: Heparin SQ Labs and images reviewed. PT/OT following. DIRECTOR OF PHILANTHROPY following. Discussed with the primary team Dr. Cabello and plan of care was updated. Patient can be discharged out of the ICU Prognosis: Fair CODE STATUS: Full Code Disposition: ICU I have personally evaluated the patient; Obtained history, performed physical examination, reviewed laboratory studies. I have reviewed images independent of radiologist. I have actively directed the medical care, formulated diagnosis, and the plan of care. Patient requires a high complexity of decision making for assessment. documented in this encounter Plan of Treatment Not on file documented as of this encounter Visit Diagnoses Not on filedocumented in this encounter
--- OUTSIDE RECORDS SUMMARY | 2025-02-21 13:33 | XMS_ITS | Encounter Summary ---
Author Organization [employer] Address [address] [place] [address] Care Team Providers Care Correctional Supervisor Name Role Phone Unavailable Primary Care Provider Unavailabl e Encounter Details Date Type Department Care Team (Late st Contact Info) Description 03/11/2022 Transcribed Document [facility] [place] [address] [place] [address] ProviderFlorentino MD [address] [place] [address] Social History Tobacco Use Types Packs/Day Years Used Date Smoking Tobacco: Never Assessed Comments Unknown Sex and Gender Information Value Date Recorded Sex Assigned at Not on file Legal Sex Female 1:44 PM CDT Gender Identity Not on file Sexual Orientation Not on file documented as of this encounter Miscellaneous Notes * Cerner Conversion Note - Florentino Lynne MD - 03/11/2022 9:10 PM CDT Patient: ALYSSA AZUL Age: 61 years Sex: Female : 1960 Associated Diagnoses: None Author: HIGINIO AREVALO MD-INF Antibiotics: Zosyn and doxy CC: Sacral wound Subjective: Patient moved out to floor and no fevers and HD stable with no acute changes. Objective: Vitals Signs (last 24 hrs) Last Charted Minimum Maximum Temp 97.4 (MAR 11 19:12) 97.4 (MAR 11 19:12) 98.4 (MAR 11 00:00) Apical HR 90 (MAR 11 17:55) 90 (MAR 11 17:55) 90 (MAR 11 17:55) Mon HR 90 (MAR 11 20:54) 77 (MAR 11 03:00) 92 (MAR 11 12:00) Resp Rate 16 (MAR 11 19:12) 14 (MAR 11 17:50) H 34 (MAR 11 11:00) SBP 113 (MAR 11 19:12) 113 (MAR 11 19:12) H 192 (MAR 11 04:00) DBP 61 (MAR 11 19:12) 61 (MAR 11 19:12) H 119 (MAR 11 17:50) MAP 82 (MAR 11 19:12) 82 (MAR 11 19:12) 134 (MAR 11 04:00) SpO2 98 (MAR 11 20:46) 94 (MAR 11 08:00) 100 (MAR 11 06:00) PE: General: Patient will awaken and more [...] LABS: Labs (Last four charted values) WBC 5.0 (MAR 11) 4.8 (MAR 10) 8.6 (MAR 09) 8.9 (MAR 08) HB L 8.2 (MAR 11) L 8.3 (MAR 11) L 8.1 (MAR 11) L 8.0 (MAR 11) HCT L 26.3 (MAR 11) L 26.3 (MAR 11) L 26.2 (MAR 11) L 26.3 (MAR 11) Plt L 140 (MAR 11) L 131 [...] 2.3 (MAR 09) L 2.2 (MAR 08) MICRO: resp culture with kleb IMAGING: Radiology Results (Last 48 hours) [id number] -- 03/01/2022 17:45 CR Chest 1 Vw [...] by Dr. Dariel Philippe.Transcribed by Caroline Scales (Carlyle).I have personally viewed, interpreted and dictated the examination. Chayo read and agree with the above final transcribed report. CR Chest 1 Vw Portable (03/11/2022 11:37) [...] soft tissue: Status post I&D x3 at [facility] with large open wound. 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 documented in this encounter Plan of Treatment Not on file documented as of this encounter Visit Diagnoses Not on filedocumented in this encounter
--- OUTSIDE RECORDS SUMMARY | 2025-02-21 13:33 | XMS_ITS | Encounter Summary ---
Author Organization [employer] Address [address] [place] [id number] Care Team Providers Care Retail Parts Pro Name Role Phone Unavailable Primary Care Provider Unavailabl e Encounter Details Date Type Department Care Team (Late st Contact Info) Description 03/10/2022 Transcribed Document [facility] [place] Medicine [facility] [place] [address] ProviderFlorentino MD [facility] [place] [address] Social History Tobacco Use Types Packs/Day Years Used Date Smoking Tobacco: Never Assessed Comments Unknown Sex and Gender Information Value Date Recorded Sex Assigned at Not on file Legal Sex Female 1:44 PM CDT Gender Identity Not on file Sexual Orientation Not on file documented as of this encounter Miscellaneous Notes * Cerner Conversion Note - Florentino ProviderMD - 03/10/2022 4:19 PM CDT Treatment Intervention, OT Entered On: 03/11/2022 13:13 EDT Performed On: 03/11/2022 12:03 EDT by MELANI QUIJANO OTR/L General Information, OT Visit Type, OT : Treatment Note Patient Orders : Order Date Order Ordering 03/09/2022 02:52 Occupational Therapy Evaluation and Treatme Ordered By: Elaine Ramires, PHYSICIAN-CLINIC 03/10/2022 10:38 OT Evaluation and Treatment Ordered By: JAMILAH GEORGES MD 03/10/2022 16:19 OT Additional Treatment Ordered By: Active Diagnoses : No Qualifying Diagnoses Admission Date : 03/01/2022 17:45 Co-treated by, OT : Physical Therapist Personal Devices : Personal Devices No Devices Recorded Assistive Devices : Assistive Devices No Devices Recorded Isolation Maintained : Other: Standard MELANI QUIJANO OTR/L - 03/11/2022 13:02 EDT General Status Patient Received Status : Supine in bed, HOB elevated Treatment Start Time : 03/11/2022 11:33 EDT Patient Left Status : Supine in bed, RN/PCT informed, All needs met and within reach RN/PCT Informed Comment : Kamaljit TILLMANd to see pt this date Treatment End Time : 03/11/2022 12:03 EDT Treatment Time : 30 Minute(s) MELANI QUIJANO OTR/[place] - 03/11/2022 13:02 EDT Self Care/Home Management, OT Grooming Assist Level, OT : Supervision or set-up Upper Body Dressing Assist Level, OT : Assist, minimal Toileting Assist Level : Assist, maximal MELANI QUIJANO OTR/[place] - 03/11/2022 13:02 EDT Functional Mobility Mobility Grid Bed Roll Left : Rehab Minimal assistance Bed Roll Right : Rehab Minimal assistance Bed Scooting : Rehab Maximal assistance (Comment: x2 [MELANI QUIJANO OTR/[place] - 03/11/2022 13:02 EDT] ) Supine to Sit : Rehab Maximal assistance (Comment: x2 [MELANI QUIJANO OTR/[place] - 03/11/2022 13:02 EDT] ) Sit to Supine : Rehab Maximal assistance (Comment: x2 [MELANI QUIJANO OTR/L - 03/11/2022 13:02 EDT] ) MELANI QUIJANO OTR/L - 03/11/2022 13:02 EDT Plan of Care, OT OT Tx Plan/Goals Established w Patient : Yes MELANI QUIJANO OTR/[place] - 03/11/2022 13:02 EDT Stuffed Casing Tier Goals, OT Self Feeding LTG Grid Goal #1 Activity : Self feeding Assist : Supervision or set-up Date to Meet : 03/24/2022 EDT Goal Status : Initial MELANI QUIJANO OTR/[place] - 03/11/2022 13:02 EDT Grooming LTG Grid Goal #1 Activity : Grooming Assist : Supervision or set up Date to Meet : 03/24/2022 EDT Goal Status : Initial goal MELANI QUIJANO OTR/[place] - 03/11/2022 13:02 EDT Dressing, Upper Body LTG Grid Goal #1 Activity : Dressing, Upper Body Assist : Supervision or set up Date to Meet : 03/24/2022 EDT Goal Status : Initial goal MELANI QUIJANO OTR/L - 03/11/2022 13:02 EDT Bed Mobility/ Bed Transfer LTG Grid Goal #1 Activity : Bed Mobility, Supine to Sit Assist : Assist, minimal Date to Meet : 03/24/2022 EDT Goal Status : Progressing, continue MELANI QUIJANO OTR/L - 03/11/2022 13:02 EDT Other LTG Grid Goal #1 Goal : Pt will complete strengthening program with verbal cues in preparation for transfers, ADLs Date to Meet : 03/24/2022 EDT Goal Status : Progressing, continue MELANI QUIJANO OTR/L - 03/11/2022 13:02 EDT Treatment Note Subjective Comment : Pt agreeable and cooperative to participate in skilled OT tx session She verbalized she has no pain at this time and transfers to wheelchair at baseline Pt verbalized understanding to use call light and wait for assistance for any reason Patient's Response to Treatment : Pt tolerated fairly, says her BP fluctuates and was 205/110 after completion of therapy session, RN made aware and did confirm major fluctuations at times Additional Objective Information : Pt semi supine in bed on arrival and agreed to participate. Supine to sit EOB with Max A x2. Once EOB, pt with Min A to SBA for support and also uses BUE's for support at times total ~12min. She participated in dynamic functional reaching ax across multiple planes and in multiple directions with Min A for balance. Good awareness of her center, just requires continued strengthening for postural control. She returned to supine with Max A x2 and was Min A to roll for pericare which required Max A after BM. Min A to don clean gown, and Max A x2 to scoot up in bed. Pt with supervision to brush hair seated upright in bed. Pt left semi supine in bed with all needs met and call light in reach. Assessment : Pt demonstrates good motivation, effort, and cooperation throughout session. She demonstrates fair BUE strength and will benefit from continued strengthening for maximizing independence. Fair static sitting balance unsupported, but poor endurance. She continues to benefit from skilled OT services and made progress toward goals. Plan for Treatment : Continued MELANI QUIJANO OTR/[place] - 03/11/2022 13:02 EDT Pain Assessment Pain Scaled Used : 0-10 Pain scale Pain Score Pre-Intervention : 0 MELANI QUIJANO OTR/[place] - 03/11/2022 13:02 EDT Image 1 - Images currently included in the form version of this document have not been included in the text rendition version of the form. Anticipated Discharge Needs, OT/PT Anticipated Discharge to : Unit, rehabilitation MELANI QUIJANO OTR/[place] - 03/11/2022 13:[address] [facility] OT Charges OT Selfcare/Hm Mgmt Ea 15 Min : 1 OT Ther Activities Ea 15 Min : 1 MELANI QUIJANO OTR/[place] - 03/11/2022 13:02 EDT documented in this encounter Plan of Treatment Not on file documented as of this encounter Visit Diagnoses Not on filedocumented in this encounter
--- OUTSIDE RECORDS SUMMARY | 2025-02-21 13:33 | XMS_ITS | Encounter Summary ---
Author Organization [employer] [facility] Address [address] [place] [address] Care Team Providers Care Durability Technician Name Role Phone Unavailable Primary Care Provider Unavailabl e Encounter Details Date Type Department Care Team (Late st Contact Info) Description 03/11/2022 Transcribed Document [facility] [facility] [place] [address] [place] [address] ProviderFlorentino MD [address] [place] [address] Social History Tobacco Use Types Packs/Day Years Used Date Smoking Tobacco: Never Assessed Comments Unknown Sex and Gender Information Value Date Recorded Sex Assigned at Not on file Legal Sex Female 1:44 PM CDT Gender Identity Not on file Sexual Orientation Not on file documented as of this encounter Miscellaneous Notes * Cerner Conversion Note - Florentino ProviderMD - 03/11/2022 6:00 AM CDT FEES Evaluation Entered On: 03/11/2022 9:53 EDT Performed On: 03/11/2022 9:17 EDT by SHANNAN SINGH, TRANSFUSION NURSE General Information Visit Type, TRANSFUSION NURSE : Initial evaluation Patient Orders : Speech Language Pathology FEES -111 Start: 03/11/22 6:00:00 EDT, Routine, For Swallow Eval and Treat - Elaine Ramires PHYSICIAN-CLINI Speech Language Pathology Additional Tx - Start: 03/09/22 8:56:00 EDT, For Dysphagia, Continuous Order -111 Admission Date : Admission Date/Time: 03/01/22 17:45:00 Medical Chart Reviewed, TRANSFUSION NURSE : Yes Personal Devices : Personal Devices No Devices Recorded Assistive Devices : Assistive Devices No Devices Recorded Active Diagnoses : No Qualifying Diagnoses Therapy Diagnosis, TRANSFUSION NURSE : Patient presents with normal oropharyngeal skills. Recs 1. Initiate a regular diet 2. up at 90 degrees for all PO 3. meds per RN No further ST indicated at this time Isolation Maintained : Other: Standard Previous Swallow Precautions : Pt was seen at [facility] late January/early February. She was intubated twice and placed on reg/thin diet. No instrumental completed Diet/Intake Prior to Current Admission : reg/thin Diet/Intake During Current Admission : NPO with TF via [place] Intubation Comment, TRANSFUSION NURSE : 02/21 intubated after cardiac arrest, extubated 02/22. Reintubated later 02/22 - 02/25. Pt reintubated 03/01 - 03/08. THREE intubations. Vital Signs RTF : Vitals Temp BP Pulse RR SpO2 FIO2 Date Wt(kg) Wt(lb) 03/09 08:00 ---- 144/67 --- 22 100 --- 03/09 07:52 ---- ----- --- 22 100 5.0L/m 03/09 07:00 ---- 190/86 --- -- --- --- 03/09 06:00 ---- 165/103 --- 23 94 5.0L/m 03/09 05:30 ---- 130/74 --- 53 97 --- 24 Hr Tmax: No Data Available 36 Hr Tmax: No Data Available Vital Signs are the last 5 in the past 48 hours. Weights display the last 5 within 7 days. Initial Wt: 03/01 90.0 kg 198 lb Respiratory Assessment Comment : SHANNAN SINGH SLP - 03/11/2022 9:49 EDT General Status Treatment End Time, TRANSFUSION NURSE : 03/11/2022 9:58 EDT Treatment Time, TRANSFUSION NURSE : 41 Minute(s) SHANNAN SINGH SLP - 03/11/2022 9:55 EDT Patient Received Status, TRANSFUSION NURSE : Long sitting in bed Treatment Start Time, TRANSFUSION NURSE : 03/11/2022 9:17 EDT Patient Left Status, TRANSFUSION NURSE : Long sitting in bed SHANNAN SINGH SLP - 03/11/2022 9:49 EDT Pain Assessment Pain Score Pre-Intervention : 0 SHANNAN SINGH SLP - 03/11/2022 9:49 EDT Image 1 - Images currently included in the form version of this document have not been included in the text rendition version of the form. FEES Exam Swallow Outcome FEES : Intact Swallow Positions FEES : Upright 90 degrees Head Control FEES : Neutral head position Trunk Control FEES : Upright centered position Presentation Style FEES : Self Location of Scope FEES : Naris, right Sensitive to Scope Movement : Yes Appearance of hypopharynx : Feeding tube Respiration : Normal Phonation/Airway Protection FEES : Asymmetric, Incomplete abduction Phonation/Airway Protection FEES Comment : right cord is edematous with decreased abduction Consistencies Trialed FEES : Thin by straw, Pureed, Regular solids, Mixed consistency SHANNAN SINGH SLP - 03/11/2022 9:49 EDT Swallow Impressions Impressions, FEES : No evidence of dysphagia present, Functional swallow for oral intake SHANNAN SINGH SLP - 03/11/2022 9:49 EDT 8 Point Penetration/Aspiration Grid Thin by Straw : 1 Pureed : 1 Regular Solids : 1 Mixed Consistency : 1 SHANNAN SINGH SLP - 03/11/2022 9:49 EDT FEES Overall Impressions : Patient presents with normal oropharyngeal skills. No penetration, aspiration, or abnormal pharyngeal residue with any consistency regardless of bolus size or presentation style. Patient appears ready to initiate a regular diet, meds per RN, and up at 90 degrees for all PO. SHANNAN SINGH SLP - 03/11/2022 9:55 EDT Swallow Recommendations Recommended Diet Type, SwRec : Regular Recommended Liquid Diet, SwRec : Thin Feeding Presentation Style, SwRec : No restrictions Swallow Position, SwRec : Upright 90 degrees Supervision Level w/Meals, SwRec : Independent, complete Recommended Med Present, SwRec : As per nursing SHANNAN SINGH SLP - 03/11/2022 9:55 EDT Therapy Indication Assessment TRANSFUSION NURSE Indicated : No TRANSFUSION NURSE Not Indicated : At prior level of function, No skilled services indicated SHANNAN SINGH SLP - 03/11/2022 9:55 EDT Swallow Plan/Goals Swallow LTG Grid TRANSFUSION NURSE Insurance Manager Goal #1 Swallow LTG : Establish safe oral diet without aspiration Status : Goal met Date Met : 03/11/2022 EDT SHANNAN SINGH SLP - 03/11/2022 9:55 EDT Swallow Goals Grid Goal #1 Goal #2 Swallow STG : Improve pharyngeal strength Other: FEES Related To : Aspiration prevention Measurement by repeat instrumental exam Date to Meet : 03/11/2022 EDT 03/11/2022 EDT Status : Goal met Goal met SHANNAN SINGH SLP - 03/11/2022 9:55 EDT SHANNAN SINGH SLP - 03/11/2022 9:55 EDT Education Barriers To Learning : None evident Individuals Taught : Patient Readiness to Learn : Cooperative Readiness to Learn : Explanation SHANNAN SINGH SLP - 03/11/2022 9:55 EDT TRANSFUSION NURSE Education Assessment Grid 1 Aspiration : Verbalizes understanding Diet Recommendation : Verbalizes understanding Dysphagia : Verbalizes understanding Evaluation Results : Verbalizes understanding Instrumental Evaluation : Verbalizes understanding MBSS/VFSS/FEES Results : Verbalizes understanding SHANNAN SINGH SLP - 03/11/2022 9:[address] [facility] TRANSFUSION NURSE Charges [facility] Ea 15 Min : 1 FEES : 1 TRANSFUSION NURSE EA ADDL 15 MIN NO CHARGE : 1 SHANNAN SINGH SLP - 03/11/2022 9:55 EDT documented in this encounter Plan of Treatment Not on file documented as of this encounter Visit Diagnoses Not on filedocumented in this encounter
--- OUTSIDE RECORDS SUMMARY | 2025-02-21 13:33 | XMS_ITS | Encounter Summary ---
Author Organization [employer] Address [address] [place] [address] Care Team Providers Care Log Skidder Name Role Phone Unavailable Primary Care Provider Unavailabl e Encounter Details Date Type Department Care Team (Late st Contact Info) Description 03/10/2022 Transcribed Document [facility] [place] [address] [place] [address] ProviderFlorentino MD [address] [place] [address] Social History Tobacco Use Types Packs/Day Years Used Date Smoking Tobacco: Never Assessed Comments Unknown Sex and Gender Information Value Date Recorded Sex Assigned at Not on file Legal Sex Female 1:44 PM CDT Gender Identity Not on file Sexual Orientation Not on file documented as of this encounter Miscellaneous Notes * Cerner Conversion Note - Florentino Lynne MD - 03/10/2022 8:49 PM CDT Patient: ALYSSA AZUL Age: 61 years Sex: Female : 1960 Associated Diagnoses: None Author: HIGINIO AREVALO MD-INF Antibiotics: Zosyn CC: Sacral wound Subjective: Patient without fevers and HD stable with left hip sacral wound with elevated now remains off vent. Objective: Vitals Signs (last 24 hrs) Last Charted Minimum Maximum Temp 98.7 (MAR 10 20:00) 98.7 (MAR 10 20:00) 98.2 (MAR 10 00:00) Apical HR 80 (MAR 10 14:16) 80 (MAR 10 14:16) 80 (MAR 10 14:16) Mon HR 83 (MAR 10 20:00) 78 (MAR 10 03:00) 90 (MAR 10 00:00) Resp Rate H 25 (MAR 10 20:00) L 13 (MAR 10 08:00) H 32 (MAR 10 10:05) SBP H 155 (MAR 10 20:00) 130 (MAR 09 22:00) H 186 (MAR 10 00:00) DBP 82 (MAR 10 20:00) L 48 (MAR 10 18:00) 89 (MAR 10 10:00) MAP 112 (MAR 10 20:00) 77 (MAR 10 18:00) 124 (MAR 10 00:00) SpO2 97 (MAR 10 20:00) L 93 (MAR 10 04:07) 100 (MAR 10 10:14) PE: General: Patient will awaken now on BiPAP HEENT: sclera white without conjunctival injection. No [...] LABS: Labs (Last four charted values) WBC 4.8 (MAR 10) 8.6 (MAR 09) 8.9 (MAR 08) 9.3 (MAR 07) HB L 7.9 (MAR 10) L 7.8 (MAR 10) L 7.4 (MAR 10) L 7.8 (MAR 09) HCT L 25.5 (MAR 10) L 24.9 (MAR 10) L 23.8 (MAR 10) L 25.5 (MAR 09) Plt L 131 (MAR 10) L 131 (MAR 09) L 121 (MAR 08) L 127 (MAR 07) Na 141 (MAR 10) 145 (MAR 09) 143 (MAR 08) 144 (MAR 07) K L 3.3 (MAR 10) 3.8 (MAR 09) 3.6 (MAR 08) L 3.4 (MAR 08) Cl 108 (MAR 10) H 114 (MAR 09) H 113 (MAR 08) H 117 (MAR 07) CO2 27 (MAR 10) 26 (MAR 09) 22 (MAR 08) 21 (MAR 07) BUN H 41 (MAR 10) H 39 (MAR 09) H 37 (MAR 08) H 31 (MAR 07) Cr H 1.80 (MAR 10) H 1.90 (MAR 09) H 2.00 (MAR 08) H 2.10 (MAR 07) Glu R H 253 (MAR 10) H 233 (MAR 09) H 300 (MAR 08) H 286 (MAR 07) Ca 9.0 (MAR 10) 8.7 (MAR 09) 8.7 (MAR 08) 8.6 (MAR 07) Lactic 0.5 (MAR 09) 0.5 (MAR 04) 0.6 (MAR 01) PT 10.5 (MAR 04) 11.0 (MAR 02) INR 1.0 (MAR 04) 1.0 (MAR 02) PTT 26.0 (MAR 04) 24.6 (MAR 02) AST 6 (MAR 10) 9 (MAR 09) L 4 (MAR 08) 7 (MAR 07) ALT L 9 (MAR 10) L 11 (MAR 09) L 10 (MAR 08) L 11 (MAR 07) ALK P 39 (MAR 10) 44 (MAR 09) 40 (MAR 08) 42 (MAR 07) T Bili 0.5 (MAR 10) 0.4 (MAR 09) 0.7 (MAR 08) 0.6 (MAR 07) PTN 6.9 (MAR 10) 6.6 (MAR 09) 6.4 (MAR 08) L 6.3 (MAR 07) ALB L 2.8 (MAR 10) L 2.3 (MAR 09) L 2.2 (MAR 08) L 2.5 (MAR 07) MICRO: resp culture with kleb IMAGING: Radiology Results (Last 48 hours) [id number] -- 03/01/2022 17:45 CR Chest 1 Vw Portable (03/09/2022 04:06) Result: PORTABLE CHESTHISTORY: Pneumonia, respiratory distress.COMPARISON: 03/07/2022.FINDINGS: A single portable radiograph of the chest was performed. Thepatient has been extubated. The other life-support lines remain stable.There is cardiomegaly. There has been significant improvement inaeration in the medial right lung base. Bibasilar opacities remain thatmay represent a combination of atelectasis and/or persistent pneumonia.There are small bilateral pleural effusions. There is no pneumothorax.IMPRESSION:1. Extubation.2. Significant improved aeration of the right lung base. Persistentbilateral lower lobe opacities are present consistent with atelectasisand residual pneumonia. There are small effusions.Images reviewed, interpreted, dictated and electronically signed by MD Thai CR Chest 1 Vw Portable (03/10/2022 04:21) [...] soft tissue: Status post I&D x3 at [facility] with large open wound. 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
--- OUTSIDE RECORDS SUMMARY | 2025-02-21 13:33 | XMS_ITS | Encounter Summary ---
Author Organization [employer] [facility] [employer] Address [address] [place] [address] Care Team Providers Care Shoe Shanker Name Role Phone Unavailable Primary Care Provider Unavailabl e Encounter Details Date Type Department Care Team (Late st Contact Info) Description 03/12/2022 Transcribed Document [facility] [place] Family Medicine [address] [place] [address] ProviderFlorentino MD [address] [place] [address] Social History Tobacco Use Types Packs/Day Years Used Date Smoking Tobacco: Never Assessed Comments Unknown Sex and Gender Information Value Date Recorded Sex Assigned at Not on file Legal Sex Female 1:44 PM CDT Gender Identity Not on file Sexual Orientation Not on file documented as of this encounter Miscellaneous Notes * Cerner Conversion Note - Florentino Lynne MD - 03/12/2022 2:11 PM CDT Patient: ALYSSA AZUL Age: 61 years Sex: Female : 1960 Associated Diagnoses: None Author: VINNIE SWEENEY MD Subjective No complains, denies chest pain or shortness of breath. Bump in Cr today ?? .. will hold diuretics for a day and reassess tomorrow. Health Status Allergies: Allergic Reactions (Selected) No [...] 1 Tab, Oral, At Bedtime , Medications (39) Active Scheduled: (14) albuterol-ipratropium inh [...] History of obstructive sleep apnea / IMO [id number] / Confirmed, Active Problems (5) Chronic kidney disease (CKD), stage III (moderate) Diabetes History of obstructive sleep apnea Hyperlipidemia Hypertension Objective VS/Measurements Vital Signs/Vital Measures 03/12/2022 12:19 EDT Oxygen Therapy Mode Nasal cannula 03/12/2022 12:00 EDT Heart Rate Monitored 82 bpm Respiratory Rate 18 Breaths/Min Oxygen Saturation 97 % Oxygen Therapy Mode Nasal cannula Oxygen Flow Rate 3 Liter/Min 03/12/2022 11:32 EDT Heart Rate Monitored 83 bpm Respiratory Rate 18 Breaths/Min Oxygen Saturation 97 % Oxygen Therapy Mode Nasal cannula Oxygen Flow Rate 3 Liter/Min 03/12/2022 9:39 EDT Oxygen Saturation 98 % Oxygen Therapy Mode Nasal cannula Oxygen Flow Rate 3 Liter/Min 03/12/2022 6:13 EDT Systolic Blood Pressure 127 mmHg Diastolic Blood Pressure 70 mmHg Mean Arterial Pressure (MAP)-BMDI 82 Temperature Source Axillary Temperature Mode Fahrenheit Temperature, Fahrenheit 97.7 Deg F Clinical Temperature, C 36.5 Deg C Heart Rate Monitored 80 bpm Respiratory Rate 18 Breaths/Min 03/12/2022 5:40 EDT Heart Rate Monitored 78 bpm 03/12/2022 5:31 EDT Heart Rate Monitored 81 bpm 03/12/2022 3:16 EDT Systolic Blood Pressure 156 mmHg HI Diastolic Blood Pressure 87 mmHg Mean Arterial Pressure (MAP)-BMDI 107 Temperature Source Axillary Temperature Mode Fahrenheit Temperature, Fahrenheit 98.1 Deg F Clinical Temperature, C 36.7 Deg C Heart Rate Monitored 80 bpm Respiratory Rate 20 Breaths/Min Oxygen Saturation 100 % 03/11/2022 23:42 EDT FiO2 35 % 03/11/2022 20:54 EDT Heart Rate Monitored 90 bpm 03/11/2022 20:46 EDT Oxygen Saturation 98 % Oxygen Therapy Mode Nasal cannula Oxygen Flow Rate 3 Liter/Min 03/11/2022 20:45 EDT Heart Rate Monitored 88 bpm 03/11/2022 19:12 EDT Systolic Blood Pressure 113 mmHg Diastolic Blood Pressure 61 mmHg Mean Arterial Pressure (MAP)-BMDI 82 Temperature Source Axillary Temperature Mode Fahrenheit Temperature, Fahrenheit 97.4 Deg F Clinical Temperature, C 36.3 Deg C Heart Rate Monitored 87 bpm Respiratory Rate 16 Breaths/Min 03/11/2022 17:55 EDT Heart Rate, Apical 90 bpm 03/11/2022 17:50 EDT Systolic Blood Pressure 181 mmHg HI Diastolic Blood Pressure 119 mmHg HI Mean Arterial Pressure (MAP)-BMDI 134 Temperature Source Oral Temperature Mode Fahrenheit Temperature, Fahrenheit 98.6 Deg F Clinical Temperature, C 37 Deg C Heart Rate Monitored 90 bpm Respiratory Rate 14 Breaths/Min Oxygen Saturation 99 % 03/11/2022 15:43 EDT Heart Rate Monitored 86 bpm Respiratory Rate 18 Breaths/Min Oxygen Saturation 100 % Oxygen Therapy Mode Nasal cannula Oxygen Flow Rate 3 Liter/Min 03/11/2022 15:33 EDT Heart Rate Monitored 86 bpm Respiratory Rate 18 Breaths/Min Oxygen Saturation 100 % Oxygen Therapy Mode Nasal cannula Oxygen Flow Rate 3 Liter/Min 03/11/2022 14:00 EDT Systolic Blood Pressure 139 mmHg Diastolic Blood Pressure 88 mmHg Mean Arterial Pressure (MAP)-BMDI 101 Temperature Source Oral Temperature Mode Fahrenheit Temperature, Fahrenheit 98.3 Deg F Clinical Temperature, C 36.8 Deg C Heart Rate Monitored 86 bpm Respiratory Rate 18 Breaths/Min Oxygen Saturation 100 % 03/11/2022 13:00 EDT Systolic Blood Pressure 129 [...] 23 Breaths/Min HI Oxygen Saturation 97 % , Measurements from flowsheet : Measurements 03/12/2022 5:00 EDT Height Source Chart Height Entry Format Summit Height/Length, MOZAMBICAN (ft) 5 ft Height/Length MOZAMBICAN 4 Inch CLINICALHEIGHT 162.56 cm Routine Weight Source Bed scale Routine Weight Entry Format Summit Routine Weight, Pounds 179 lb Routine Weight, Ounces 1 oz Routine Weight Calculation 81.39 kg Body Mass Index (BMI), Routine 30.8 kg/m2 Body Surface Area (BSA), Routine 1.87 m2 , Vitals Signs (last 24 hrs) Last Charted Minimum Maximum Temp 97.7 (MAR 12 06:13) 97.7 (MAR 12 06:13) 98.6 (MAR 11 17:50) Apical HR 90 (MAR 11 17:55) 90 (MAR 11 17:55) 90 (MAR 11 17:55) Mon HR 82 (MAR 12 12:00) 78 (MAR 12 05:40) 90 (MAR 11 17:50) Resp Rate 18 (MAR 12 12:00) 14 (MAR 11 17:50) 20 (MAR 12 03:16) SBP 127 (MAR 12:13) 113 (MAR 11 19:12) H 181 (MAR 11 17:50) DBP 70 (MAR 12:13) 61 (MAR 11 19:12) H 119 (MAR 11 17:50) MAP 82 (MAR 12 06:13) 82 (MAR 11 19:12) 134 (MAR 11 17:50) SpO2 97 (MAR 12 12:00) 97 (MAR 12 11:32) 100 (MAR 11 15:33) Intake & Output Totals Last 24 Hours (7a-7a) Intake (26 Events) Medications (223.03 mL) Enteral Additional Water Given (120 mL) Enteral Feeding Amount (220 mL) Output (3 Events) Valenzuela Catheter (850 mL) Input Total: 563.03 mL Output Total: 850 mL Balance: -286.97 mL Physical exam contact may be limited [...] Review Labs (Last four charted values) WBC 5.3 [...] 2.8 (MAR 10) L 2.3 (MAR 09) Impression and Plan 1- JAVIER - nonoliguric. Likely prerenal azotemia/ ATN secondary to septic shock and cardiac arrest. Fe urea 25%. Vancomycin level was >50 on last check. 2- CKD 3: Baseline creatinine around 1.6. Patient follows with [facility]. 3- Sepsis 4- Hypernatremia: Resolved. 5- Anemia - Tsat 14% 6- Decubitus ulcer post debridement 7- Respiratory distress - Pneumonia on vent. Plan: - Renal function slightly worse..Bump in Cr today ?? .. will hold diuretics for a day and reassess tomorrow. - Encourage oral hydration. - Monitor I/O. - Avoid nephrotoxic agents. - Adjust meds per renal function - No emergent need of PREVENTIVE MAINTENANCE COORDINATOR. - Monitor H/H and transfuse for Hgb less than 7.0 High risk and complexity patient. Electronically signed by Sumaya, [facility] Conversion Medical Accounting Clerk Cerner at 12/21/2022 5:04 PM CDT documented in this encounter Plan of Treatment Not on file documented as of this encounter Visit Diagnoses Not on filedocumented in this encounter
--- OUTSIDE RECORDS SUMMARY | 2025-02-21 13:33 | XMS_ITS | Encounter Summary ---
Author Organization [facility] Address [address] [place] [address] Care Team Providers Care Lens Engraver Name Role Phone Unavailable Primary Care Provider Unavailabl e Encounter Details Date Type Department Care Team (Late st Contact Info) Description 03/11/2022 Transcribed Document [facility] – [place] Family Medicine [address] [place] [address] ProviderFlorentino MD [address] [place] [address] Social History Tobacco Use Types Packs/Day Years Used Date Smoking Tobacco: Never Assessed Comments Unknown Sex and Gender Information Value Date Recorded Sex Assigned at Not on file Legal Sex Female 1:44 PM CDT Gender Identity Not on file Sexual Orientation Not on file documented as of this encounter Miscellaneous Notes * Cerner Conversion Note - Florentino Lynne MD - 03/11/2022 3:51 PM CDT On Going Discharge Planning Entered On: 03/11/2022 15:52 EDT Performed On: 03/11/2022 15:51 EDT by TRISTAN TAYLOR RN-Adjunct Psychology ProfessorBallpoint Pen Assembly Machine Operator Progress Note Discharge Arrangements : Patient Post-Acute Information Patient Name: ALYSSA AZUL Gender: Female : [birth year] Age: 61 Years No Post-Acute Placement(s) Listed No Post-Acute Service(s) Listed No [place] Referral(s) Listed Discharge Options Discussed with Patient : Acute rehabilitation, Discharge transportation, DME, Home Health, Short term rehabilitation, Other: LTACH Barriers to Discharge Identified : Clinical Condition of Patient Barriers to Discharge Unresolved : Clinical Condition of Patient Patient Discharge Goal : Inpatient rehabilitation facility TRISTAN TAYLOR RN-Adjunct Psychology Professor - 03/11/2022 15:51 EDT Narrative Progress Note Narrative Progress Note : pt transferred off unit prior to cm assessment. DCP: PT/OT re-evals pending to assist with discharge plan. Anticipate patient will need inpatient rehab. Historical Progress Note : RAR High ELOS: 12 days HD#7 Covid Vaccine X2 +Booster 61 year old female with history paraplegia, CKD3, DM2, HTN; presented to [facility] with SOB, fever, chills and productive Cough X1 week. Admitted for PNA and debridement DTI to left buttock. Cardiac arrested, intubated and transferred to [facility] [place]. She was extubated a couple days later and reintubated the same day and extubated. She was reintubated on 03/01 after failed BiPap and transferred to [facility]. Of note patient had trach/PEG in 2009. Consults: Pulmonary, ID 03/01 Intubated 03/08 Extubated 03/01 Central Line Patient extubated on Thursday. Awake and alert, following commands. O2 sat 99% on 3 liters. PRODUCTION PLANNING MANAGER swallow eval, not safe to initiate po diet, continue corpak with TF. Renal function improving. DCP: PT/OT re-evals pending to assist with discharge plan. Anticipate patient will need inpatient rehab. Will fax referral when therapy notes available. STEFAN FERNANDEZ, RN-Adjunct Psychology Professor - 03/09/22 14:31:25 RAR High ELOS: 5 days HD#3 Covid Vaccine X2 +Booster 61 year old female with history paraplegia, CKD3, DM2, HTN; presented to [facility] with SOB, fever, chills and productive Cough X1 week. Admitted for PNA and debridement DTI to left buttock. Cardiac arrested, intubated and transferred to [facility]. She was extubated a couple days later and reintubated the same day and extubated. She was reintubated on 03/01 after failed BiPap and transferred to [facility]. Of note patient had trach/PEG in 2009. Consults: Pulmonary, ID 7/ Intubated Vent Day #5 03/01 Central Line On MV per ET AC 16/400/40%/P8, sedated with Fentanyl and Propofol, awake and following commands. Na+ trending up 149. Corpak with TF. ID plan: IV Zosyn q8. Wound Vac to left buttock. Patient lives alone in [place]. She is and has one son FREDO. Her PCP s Dr. Cabello. Patient is ADL independent at her baseline. Only inpatient rehab stay was at [facility] at age 9. No prior home health services. She has a CPap and dated WC at home. She transports by her son or Medicaid van. DCP: CM spoke with patient's son FREDO on the phone. He and his plan to ultimately take her home to their house in [place] after hospitalization and LTACH/Rehab stay for IV abx and wound care. Patient has managed medicaid and does not have a SNF benefit. Her inpatient options at discharge will be LTACH or acute rehab versus home with home health. Early referral to [facility]. Son asked if we could assist in getting her a new WC at discharge. He will let CM know the name of her DME provider to see if she is eligible for a new one. CM will assist to get his FMLA paperwork over to [place] office. STEFAN FERNANDEZ RN-Adjunct Psychology Professor - 03/05/22 13:34:00 TRISTAN TAYLOR, [facility]-Adjunct Psychology Professor - 03/11/2022 15:51 EDT documented in this encounter Plan of Treatment Not on file documented as of this encounter Visit Diagnoses Not on filedocumented in this encounter
--- OUTSIDE RECORDS SUMMARY | 2025-02-21 13:33 | XMS_ITS | Encounter Summary ---
Author Organization [employer] [facility] [employer] Address [address] [place] [address] Care Team Providers Care Repeat Photocomposing Machine Operator Name Role Phone Unavailable Primary Care Provider Unavailabl e Encounter Details Date Type Department Care Team (Late st Contact Info) Description 03/11/2022 Transcribed Document [facility] [place] Family Medicine [address] [place] [address] ProviderFlorentino MD [address] [place] [address] Social History Tobacco Use Types Packs/Day Years Used Date Smoking Tobacco: Never Assessed Comments Unknown Sex and Gender Information Value Date Recorded Sex Assigned at Not on file Legal Sex Female 1:44 PM CDT Gender Identity Not on file Sexual Orientation Not on file documented as of this encounter Miscellaneous Notes * Cerner Conversion Note - Historical ProviderMD - 03/11/2022 2:00 AM CDT Agricultural Service Worker Details Entered On: 03/11/2022 7:43 EDT Performed On: 03/11/2022 2:00 EDT by Izzy Chowdhury Non Emp RN Order Details Transport Mode Order Detail : Bed (including specialty) Isolation Precautions Order Detail : Standard Precautions Order Detail : 0 IV Order Detail : 1 Oxygen Order Detail : 1 Nurse Collect Order Detail : 1 Lift/Transfer : Maximal assist Central Line Order Detail : Yes Room Service : Not Appropriate Arterial Line : Yes Patient Needs Meds Crushed/Liquid : No Izzy Chowdhury Non Emp RN - 03/11/2022 7:42 EDT documented in this encounter Plan of Treatment Not on file documented as of this encounter Visit Diagnoses Not on filedocumented in this encounter
--- OUTSIDE RECORDS SUMMARY | 2025-02-21 13:33 | XMS_ITS | Encounter Summary ---
Author Organization [employer] [facility] [employer] Address [address] [place] [address] Care Team Providers Care Finding Fastener Name Role Phone Unavailable Primary Care Provider Unavailabl e Encounter Details Date Type Department Care Team (Late st Contact Info) Description 03/10/2022 Transcribed Document [facility] [place] [address] [place] [address] ProviderFlorentino MD [address] [place] [address] Social History Tobacco Use Types Packs/Day Years Used Date Smoking Tobacco: Never Assessed Comments Unknown Sex and Gender Information Value Date Recorded Sex Assigned at Not on file Legal Sex Female 1:44 PM CDT Gender Identity Not on file Sexual Orientation Not on file documented as of this encounter Miscellaneous Notes * Cerner Conversion Note - Florentino Lynne MD - 03/10/2022 1:01 PM CDT UM Authorization Entered On: 03/10/2022 13:02 EDT Performed On: 03/10/2022 13:01 EDT by COLT MORRELL RN Primary Insurance Authorization Authorization and Policy Numbers : Insurance 1 Health Plan: [facility] Policy Number: [id number] Authorization Number: Insurance Primary Name : [facility] Policy Number: [id number] Authorization Number: Authorization Status-Primary : Drg approved Reference Number-Primary : [id number] Number of Days Authorized-Primary : 8 Day(s) Authorized Service Begin Date-Primary : 03/01/2022 EDT Authorized Service End Date-Primary : 03/09/2022 EDT Historical Authorization Comments-Primary : Comment 1: UPLOADED CLINICALS VIA [employer] AND FAXED TO [facility]/ AWAITING CALLBACK/ REFERENCE # LISTED ON FRONT PAGE. (Jelani Anne, intranet developer 03/04/2022 14:03) Comment 2: Authorized per fax 03/02/22 @ [id number]. Approved DRG admission. Next reivew due 03/10. -Hannah Barronjunikenneth. (Mallory Sanchez, Vacuum Tank Tender 03/04/2022 11:20) Comment 3: Rec vm from Hannah at [facility] on [id number] line on 03/02/22 at 8:42am She is req clinical be sent in Transf VM to [facility] so she could follow up (SHERIF LYNCH, Supervisor Dimension Warehouse 03/04/2022 09:42) Comment 4: auth # per star notes, faxed clinicals via [employer] 03/01 (JOSEPH GUTIERREZ, PRIMO-UTILIZATION MANAGEMENT REVIEW NON-EXEMPT 03/02/2022 11:28) COLT MORRELL, PRIMO - 03/10/2022 13:01 EDT Electronically signed by [facility] Conversion Manufacturer'S Service Representative Cerner at 12/21/2022 5:11 PM CDT documented in this encounter Plan of Treatment Not on file documented as of this encounter Visit Diagnoses Not on filedocumented in this encounter
--- OUTSIDE RECORDS SUMMARY | 2025-02-21 13:33 | XMS_ITS | Encounter Summary ---
Author Organization [facility] [employer] [facility] Address [address] [place] [address] Care Team Providers Care Pricing Lead Name Role Phone Unavailable Primary Care Provider Unavailabl e Encounter Details Date Type Department Care Team (Late st Contact Info) Description 03/12/2022 Transcribed Document [facility] [place] [facility] [place] [address] ProviderFlorentino MD [address] [place] [address] Social History Tobacco Use Types Packs/Day Years Used Date Smoking Tobacco: Never Assessed Comments Unknown Sex and Gender Information Value Date Recorded Sex Assigned at Not on file Legal Sex Female 1:44 PM CDT Gender Identity Not on file Sexual Orientation Not on file documented as of this encounter Miscellaneous Notes * Cerner Conversion Note - Florentino Lynne MD - 03/12/2022 9:00 AM CDT [facility] Inpatient Documentation Entered On: 03/12/2022 11:44 EDT Performed On: 03/12/2022 8:15 EDT by Edwina Fraire LPN-LVN-Enterstomal Andres WO Admission Date : Admit Date 03/01/2022 17:[address] : No diagnoses found. Reason for WOCN Visit : Assessment, ongoing, Dressing change Admitting Diagnosis ST : Reason for Admission ACUTE RESP FAILURE WOCN Assessment Summary : Wound care team consulted to manage NPWT to left trocanter. Wound care sales team manager at bedside patient on HENRIETTA surface. Wound care team removed old dressing 2 pcs. angel foam and cleansed with saline wound wash, pat dry, prepped periwound skin with barrier film and draped, placed 2 pc angel foam and draped. NPWT is operating at 125mmHG. If any changes to skin integrity please consult wound care dept. Edwina Fraire LPN-RTE-FFI-Eayywjxowvr Therapy - 03/12/2022 11:25 EDT documented in this encounter Plan of Treatment Not on file documented as of this encounter Visit Diagnoses Not on filedocumented in this encounter
--- OUTSIDE RECORDS SUMMARY | 2025-02-21 13:33 | XMS_ITS | Encounter Summary ---
Author Organization [employer] Address [address] [place] [address] Care Team Providers Care Admissions Clinician Name Role Phone Unavailable Primary Care Provider Unavailabl e Encounter Details Date Type Department Care Team (Late st Contact Info) Description 03/11/2022 Transcribed Document [facility] [place] Family Medicine [address] [place] [address] ProviderFlorentino MD [address] [place] [address] Social History Tobacco Use Types Packs/Day Years Used Date Smoking Tobacco: Never Assessed Comments Unknown Sex and Gender Information Value Date Recorded Sex Assigned at Not on file Legal Sex Female 1:44 PM CDT Gender Identity Not on file Sexual Orientation Not on file documented as of this encounter Miscellaneous Notes * Cerner Conversion Note - Florentino ProviderMD - 03/11/2022 12:17 PM CDT Patient: ALYSSA MAYORGA Age: 61 Years Sex: Female : 1960 Subjective Patient remains in the ICU. She sitting up eating breakfast during my exam today. She says she feels good, no complaints other than the Corpak in place, would like it out. She passed her swallow study this morning and has been started on a regular diet. Remains on 4 L of oxygen but is maintaining saturations. CRP trending down. Hemoglobin looks good. BUN/creatinine stable. Blood sugar has been elevated. Vital Signs T: 37.1 ??C TMIN: 36.9 ??C TMAX: 37.1 ??C HR: 92(Monitored) RR: 22 BP: 136/88 SpO2: 99% Oxygen Settings (Last) Oxygen Therapy Mode: Nasal cannula (03/11/22 12:00:00) Oxygen Flow Rate: 4 Liter/Min (03/11/22 12:00:00) Intake & Output Totals Last 24 Hours (7a-7a) Input Total: 2553.92 mL Output Total: 3420 mL Balance: -866.08 mL Physical Exam General: Alert, obese, no acute distress Neurologic: Moves upper extremities spontaneously, oriented X3, paraplegia Lungs: Clear to auscultation, non-labored respiration, no crackles, no wheeze Heart: Normal rate, regular rhythm, no murmur, no edema Abdomen: Soft, non-tender, non-distended, normal bowel sounds Musculoskeletal: No obvious deformity Skin: warm, dry, no rashes or lesions Psychiatric: Cooperative, appropriate mood and affect Assessment/Plan #Acute hypoxic respiratory failure Concern for pneumonia, aspiration, bilateral pleural effusion Intubated initially on 02/21 after cardiac arrest, extubated 02/22 Reintubated later on 02/22 due to respiratory distress, extubated 02/25 Intubated once again on 03/01, extubated 03/08 Pulmonary following S/p bronc at OSH on 02/21 S/p bronchoscopy 03/04 Continuing nasal cannula, BiPAP as needed #Severe sepsis (POA) secondary to bilateral lower lobe pneumonia Reportedly required Levophed for short time at OSH prior to arriving to our facility Sputum culture + Klebsiella pneumonia PCR + MSSA ID following: Zosyn, doxycycline #Acute on chronic kidney disease III Baseline creatinine around 1.6 Nephrology following Etiology prerenal azotemia/ATN due to severe sepsis/cardiac arrest #Decubitus wounds, POA S/p debridement x3 at OSH, now with large open wound Continue wound care #Cardiac arrest At OSH on 02/21 #Acute on chronic anemia Transfuse 1 unit 03/07 #Hypernatremia???resolved #Hypertensive urgency #Chronic medical conditions ??? Paraplegia: Continue PT/OT ??? Diabetes: Glargine 28 units daily, SSI Disposition: Still hospitalized due to -passed swallow study today and diet has been advanced. Okay to remove Corpak. Moving out of ICU today. Continue with antibiotics, pending final recs from ID. Making adjustments to diabetic regimen At d/c will likely need -wound care, PT OT Tentatively at d/c will be going to -SNF Expected d/c date -TBD, possibly later this week VTE Prophylaxis - Medical Heparin 5,000 Units, SubCutaneous, Inj, Q8H, Routine, Start 03/01/22 22:00:00 EDT, 03/01/22 19:01:00 EDT (DIANA GENI A) Sequential Compression Device Start: 03/01/22 19:03:00 EDT, Bilateral, Length: Knee High, While patient is in bed, [facility] Sequential Compression Device Start: 03/01/22 18:51:00 EDT, Bilateral, Length: Knee High, While patient is in bed, Continuous Order ([facility], PH[facility]CLINIC) Medications acetaminophen, 650 mg= 2 Tab, Oral, Q6H, PRN calcium gluconate, 1 Gram= 100 mL, IV Piggyback, Daily, PRN calcium gluconate, 2 Gram= 100 mL, IV Piggyback, Daily, PRN calcium gluconate, 2 Gram= 100 mL, IV Piggyback, Q12H, PRN dexmedeTOMIDine injection 400 mcg + NaCl 0.9% for drip 100 mL Dextrose 50% injection, 25 Gram= 50 mL, IV Push, Q15Min, PRN Dextrose 50% injection, 25 Gram= 50 mL, IV Push, Q15Min, PRN Dextrose 50% injection, 25 Gram= 50 mL, IV Push, Q15Min, PRN Dextrose 50% injection, 12.5 Gram= 25 mL, IV Push, Q15Min, PRN Diuril, 500 mg, IV Push, Q12H docusate sodium, 100 mg= 10 mL, Feeding Tube, Daily doxycycline, 100 mg= 1 Cap, Oral, BID DuoNeb 0.5 mg-2.5 mg/3 mL inhalation solution, 3 mL, Nebulized Inhalation , RT_Q6H DuoNeb 0.5 mg-2.5 mg/3 mL inhalation solution, 3 mL, Nebulized Inhalation , RT_Q6H, PRN ferrous sulfate, 325 mg= 1 Tab, Oral, BID With Meals Fish Oil, 5000 mg= 5 Cap, Oral, BID glucagon, 1 mg= 1 mL, IntraMuscular, Q15Min, PRN glucose 4 g oral tablet, chewable, 16 Gram= 4 Tab, Chew, Q15Min, PRN glucose 40% oral gel, 15 Gram= 37.5 mL, Oral, Q15Min, PRN guaiFENesin, 400 mg= 20 mL, Oral, Q6H heparin, 5000 Units= 1 mL, SubCutaneous, Q8H hydrALAZINE, 10 mg= 0.5 mL, IV Push, Q6H, PRN insulin glargine, 28 Units= 0.28 mL, SubCutaneous, Daily insulin regular sliding scale, Scale C, SubCutaneous, Q6H magnesium sulfate, 2 Gram= 50 mL, IV Piggyback, Daily, PRN magnesium sulfate, 2 Gram= 50 mL, IV Piggyback, Q2H, PRN morphine, 2 mg= 1 mL, IV Push, Q2H, PRN niCARdipine injection 25 mg + Dextrose 5% in Water intravenous solution 250 mL Pepcid, 20 mg= 2 mL, IV Push, At Bedtime potassium bicarbonate, 20 mEq= 1 Tab, Oral, Q2H, PRN potassium bicarbonate, 60 mEq= 3 Tab, Oral, Q2H, PRN potassium chloride 10 mEq/50 mL intravenous solution, 10 mEq= 50 mL, IV Piggyback, Q1H, PRN potassium chloride 20 mEq oral tablet, extended release, 20 mEq= 1 Tab, Oral, Q2H, PRN potassium chloride 20 mEq oral tablet, extended release, 60 mEq= 3 Tab, Oral, Q2H, PRN PRAVAstatin, 40 mg= 2 Tab, Oral, At Bedtime Pulmicort Respules, 0.5 mg= 2 mL, Nebulized Inhalation , RT_BID senna, 8.8 mg= 5 mL, Oral, At Bedtime sodium phosphate sodium phosphate Zofran, 4 mg= 2 mL, IV Push, Q6H, PRN Zosyn + Dextrose 5% in Water intravenous solution 50 mL Lab Results Test Name Test Result Date/Time Sodium Level 140 mmol/L 03/11/2022 02:18 EDT Potassium Level 3.6 mmol/L 03/11/2022 02:18 EDT Chloride Level 106 mmol/L 03/11/2022 02:18 EDT Carbon Dioxide Level 31 mmol/L 03/11/2022 02:18 EDT Anion Gap 7 (Low) 03/11/2022 02:18 EDT Glucose Level 240 mg/dL (High) 03/11/2022 02:18 EDT Blood Urea Nitrogen 42 mg/dL (High) 03/11/2022 02:18 EDT Creatinine Level 1.80 mg/dL (High) 03/11/2022 02:18 EDT eGFR 35 mL/min/1.73m2 (Low) 03/11/2022 02:18 EDT eGFR NonAfrican 29 mL/min/1.73m2 (Low) 03/11/2022 02:18 EDT Bun/Creatinine 23.3 (High) 03/11/2022 02:18 EDT Calcium Level 9.1 mg/dL 03/11/2022 02:18 EDT Protein Total 7.2 Gram/dL 03/11/2022 02:18 EDT Albumin Level 3.1 Gram/dL (Low) 03/11/2022 02:18 EDT Globulin 4.1 Gram/dL 03/11/2022 02:18 EDT A/G Ratio 0.8 (Low) 03/11/2022 02:18 EDT Bilirubin Total 0.5 mg/dL 03/11/2022 02:18 EDT Alk Phos 47 Units/Liter 03/11/2022 02:18 EDT AST 7 Units/Liter 03/11/2022 02:18 EDT ALT 14 Units/Liter 03/11/2022 02:18 EDT Device Comment 1 Notified Nurse RBV 03/11/2022 12:09 EDT Device Comment 1 Protocols Followed 03/11/2022 06:06 EDT Device Comment 1 Protocols Followed 03/11/2022 00:39 EDT Device Comment 1 Notified Nurse RBV 03/10/2022 17:56 EDT Glucose POC2 270 mg/dL (High) 03/11/2022 12:09 EDT Glucose POC2 247 mg/dL (High) 03/11/2022 06:06 EDT Glucose POC2 202 mg/dL (High) 03/11/2022 00:39 EDT Glucose POC2 192 mg/dL (High) 03/10/2022 17:56 EDT CRP 3.23 mg/dL (High) 03/11/2022 02:18 EDT WBC 5.0 K/uL 03/11/2022 02:18 EDT RBC 2.90 Million/uL (Low) 03/11/2022 02:18 EDT Hgb 8.1 g/dL (Low) 03/11/2022 09:06 EDT Hgb 8.0 g/dL (Low) 03/11/2022 02:18 EDT Hgb 7.9 g/dL (Low) 03/10/2022 20:03 EDT Hgb 7.8 g/dL (Low) 03/10/2022 14:20 EDT Hct 26.2 % (Low) 03/11/2022 09:06 EDT Hct 26.3 % (Low) 03/11/2022 02:18 EDT Hct 25.5 % (Low) 03/10/2022 20:03 EDT Hct 24.9 % (Low) 03/10/2022 14:20 EDT MCV 90.7 fL 03/11/2022 02:18 EDT MCH 27.6 pg 03/11/2022 02:18 EDT MCHC 30.4 Gram/dL (Low) 03/11/2022 02:18 EDT Platelet Count 140 K/uL (Low) 03/11/2022 02:18 EDT MPV 11.0 fL 03/11/2022 02:18 EDT RDW 15.9 % (High) 03/11/2022 02:18 EDT Neut % 67.3 % 03/11/2022 02:18 EDT Neut # 3.35 K/uL 03/11/2022 02:18 EDT Lymph % 16.3 % (Low) 03/11/2022 02:18 EDT Lymph # 0.81 x10(3)/uL (Low) 03/11/2022 02:18 EDT [place] % 8.2 % 03/11/2022 02:18 EDT [place] # 0.41 K/uL 03/11/2022 02:18 EDT Eos % 4.8 % 03/11/2022 02:18 EDT Eos # 0.24 x10(3)/uL 03/11/2022 02:18 EDT Baso % 0.8 % 03/11/2022 02:18 EDT Baso # 0.04 x10(3)/uL 03/11/2022 02:18 EDT Sed Rate Auto 60 mm/Hr (High) 03/11/2022 02:18 EDT Slide Review No 03/11/2022 02:18 EDT IG# 0.13 x10(3)/uL (High) 03/11/2022 02:18 EDT IG% 2.60 % (High) 03/11/2022 02:18 EDT documented in this encounter Plan of Treatment Not on file documented as of this encounter Visit Diagnoses Not on filedocumented in this encounter
--- OUTSIDE RECORDS SUMMARY | 2025-02-21 13:33 | XMS_ITS | Encounter Summary ---
Author Organization [employer] Address [address] [place] [id number] Care Team Providers Care Network Developer Name Role Phone Unavailable Primary Care Provider Unavailabl e Encounter Details Date Type Department Care Team (Late st Contact Info) Description 03/10/2022 Transcribed Document [facility] [place] Family Medicine [address] [place] [address] ProviderFlorentino MD [address] [place] [address] Social History Tobacco Use Types Packs/Day Years Used Date Smoking Tobacco: Never Assessed Comments Unknown Sex and Gender Information Value Date Recorded Sex Assigned at Not on file Legal Sex Female 1:44 PM CDT Gender Identity Not on file Sexual Orientation Not on file documented as of this encounter Miscellaneous Notes * Cerner Conversion Note - Florentino ProviderMD - 03/10/2022 8:00 AM CDT Consult Phone Call Documentation Entered On: 03/10/2022 9:12 EDT Performed On: 03/10/2022 8:00 EDT by Junie Enriquez Scheduler Phone Call for Consults Consult Phone Call/Page Attempt : First call Consult Reason : diabetic foot ulcer Provider Service Notified Name : Infectious Disease Consult, Additional Information : Office aware of consult Junie Enriquez Coat Agent - 03/10/2022 9:12 EDT documented in this encounter Plan of Treatment Not on file documented as of this encounter Visit Diagnoses Not on filedocumented in this encounter
--- OUTSIDE RECORDS SUMMARY | 2025-02-21 13:33 | XMS_ITS | Encounter Summary ---
Author Organization [facility] Address [address] [place] [address] Care Team Providers Care Client Development Director Name Role Phone Unavailable Primary Care Provider Unavailabl e Encounter Details Date Type Department Care Team (Late st Contact Info) Description 03/12/2022 Transcribed Document [facility] [place] Family Medicine [facility] [place] [address] ProviderFlorentino MD [address] [place] [address] Social History Tobacco Use Types Packs/Day Years Used Date Smoking Tobacco: Never Assessed Comments Unknown Sex and Gender Information Value Date Recorded Sex Assigned at Not on file Legal Sex Female 1:44 PM CDT Gender Identity Not on file Sexual Orientation Not on file documented as of this encounter Miscellaneous Notes * Cerner Conversion Note - Florentino Lynne MD - 03/12/2022 9:14 AM CDT On Going Discharge Planning Entered On: 03/12/2022 9:15 EDT Performed On: 03/12/2022 9:14 EDT by EMIL GIRALDO RN - Change OverDog Or Animal Sitter Progress Note Discharge Arrangements : Patient Post-Acute [...] Patient Discharge Goal : Inpatient rehabilitation facility EMIL GIRALDO RN - Change Over - 03/12/2022 9:14 EDT Narrative Progress Note Narrative Progress Note : CM spoke with Matilde at [facility] and they cannot take the patient. Cm sent referrals to area snfs. Historical Progress Note : pt transferred off unit prior to cm assessment. DCP: PT/OT re-evals pending to assist with discharge plan. Anticipate patient will need inpatient rehab. TRISTAN TAYLOR RN-Change Over - 03/11/22 15:52:03 RAR High ELOS: 12 days HD#7 Covid Vaccine X2 +Booster 61 year old female with history paraplegia, CKD3, DM2, HTN; presented to [facility] with SOB, fever, chills and productive Cough X1 week. Admitted for PNA and debridement DTI to left buttock. Cardiac arrested, intubated and transferred to [facility]. She was extubated a couple days later and reintubated the same day and extubated. She was reintubated on 03/01 after failed BiPap and transferred to [facility]. Of note patient had trach/PEG in 2009. Consults: Pulmonary, ID 7/2 Intubated 03/08 Extubated 03/01 Central Line Patient extubated on Thursday. Awake and alert, following commands. O2 sat 99% on 3 liters. 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 Renal function improving. DCP: PT/OT re-evals pending to assist with discharge plan. Anticipate patient will need inpatient rehab. Will fax referral when therapy notes available. STEFAN FERNANDEZ RN-Change Over - 03/09/22 14:31:25 RAR High ELOS: 5 days HD#3 Covid Vaccine X2 +Booster 61 year old female with history paraplegia, CKD3, DM2, HTN; presented to [facility] with SOB, fever, chills and productive Cough X1 week. Admitted for PNA and debridement DTI to left buttock. Cardiac arrested, intubated and transferred to [facility]. She was extubated a couple days later and reintubated the same day and extubated. She was reintubated on 03/01 after failed BiPap and transferred to [facility]. Of note patient had trach/PEG in 2009. Consults: Pulmonary, ID 7/2 Intubated Vent Day #5 7 Central Line On MV per ET AC 16/400/40%/P8, sedated with Fentanyl and Propofol, awake and following commands. Na+ trending up 149. Corpak with TF. ID plan: IV Zosyn q8. Wound Vac to left buttock. Patient lives alone in [place]. She is and has one son FREDO. Her PCP s Dr. Cabello. Patient is ADL independent at her baseline. Only inpatient rehab stay was at [facility] at age 9. No prior home health services. She has a CPap and dated WC at home. She transports by her son or Medicaid van. DCP: CM spoke with patient's son FREDO on the phone. He and his plan to ultimately take her home to their house in [place] after hospitalization and LTACH/Rehab stay for IV abx and wound care. Patient has managed medicaid and does not have a SNF benefit. Her inpatient options at discharge will be LTACH or acute rehab versus home with home health. Early referral to [facility]. Son asked if we could assist in getting her a new WC at discharge. He will let CM know the name of her DME provider to see if she is eligible for a new one. CM will assist to get his [place] paperwork over to [facility] office. STEFAN FERNANDEZ, RN-Change Over - 03/05/22 13:34:00 EMIL GIRALDO, RN - Change Over - 03/12/2022 9:14 EDT documented in this encounter Plan of Treatment Not on file documented as of this encounter Visit Diagnoses Not on filedocumented in this encounter
--- OUTSIDE RECORDS SUMMARY | 2025-02-21 13:33 | XMS_ITS | Encounter Summary ---
Author Organization [employer] Address [address] [place] [id number] Care Team Providers Care Fulling Machine Operator Name Role Phone Unavailable Primary Care Provider Unavailabl e Encounter Details Date Type Department Care Team (Late st Contact Info) Description 03/12/2022 Transcribed Document [facility] [place] Family Medicine [address] [place] [address] ProviderFlorentino MD [address] [place] [address] Social History Tobacco Use Types Packs/Day Years Used Date Smoking Tobacco: Never Assessed Comments Unknown Sex and Gender Information Value Date Recorded Sex Assigned at Not on file Legal Sex Female 1:44 PM CDT Gender Identity Not on file Sexual Orientation Not on file documented as of this encounter Miscellaneous Notes * Cerner Conversion Note - Florentino ProviderMD - 03/12/2022 12:59 PM CDT Patient: ALYSSA MAYORGA Age: 61 Years Sex: Female : 1960 Subjective Says she feels good, just weak. Denies SOB, still on 2-3L BUN Cr trending up slightly. Hgb better Eating and drinking normally Had BM yesterday Vital Signs T: 36.5 ??C TMIN: 36.3 ??C TMAX: 37 ??C HR: 82(Monitored) RR: 18 BP: 127/70 SpO2: 97% HT: 162.56 cm WT: 81.39 kg BMI: 30.8 Oxygen Settings (Last) Oxygen Therapy Mode: Nasal cannula (03/12/22 12:19:00) Oxygen Flow Rate: 3 Liter/Min (03/12/22 12:00:00) Intake & Output Totals Last 24 Hours (7a-7a) Input Total: 563.03 mL Output Total: 850 mL Balance: -286.97 mL Physical Exam General: Alert, obese, no [...] once again on 03/01, extubated 03/08 Pulmonary following, signed off 03/12 -- needs follow up CT chest and with their clinic in 6 weeks S/p bronc at OSH on 02/21 S/p bronchoscopy 03/04 Continuing nasal cannula, BiPAP as needed #Severe sepsis (POA) secondary to bilateral lower lobe pneumonia Reportedly required Levophed for short time at OSH prior to arriving to our facility Sputum culture + Klebsiella pneumonia PCR + MSSA ID following: Zosyn, doxycycline #Acute on chronic kidney disease III Baseline creatinine around 1.6 Nephrology following: hold diuretic today Etiology prerenal azotemia/ATN due to severe sepsis/cardiac arrest #Decubitus wounds, POA S/p debridement x3 at OSH, now with large open wound Continue wound care #Cardiac arrest At OSH on 02/21 #Acute on chronic anemia Monitor Hgb #Hypernatremia???resolved #Hypertensive urgency--resolved #Chronic medical conditions ??? Paraplegia: Continue PT/OT ??? Diabetes: Glargine 28 units daily, SSI Disposition: Still hospitalized due to - doing better. Cr went up and Nephro holding diuretic. Hopefully improves tomorrow. Awaiting final recs from ID about abx At d/c will likely need -wound care, PT OT. Pulm f/u Tentatively at d/c will be going to -SNF Expected d/c date - 03/14? VTE Prophylaxis - Medical Heparin 5,000 Units, SubCutaneous, Inj, Q8H, Routine, Start 03/01/22 22:00:00 EDT, 03/01/22 19:01:00 EDT (DIANAGENI) Sequential Compression Device Start: 03/01/22 19:03:00 EDT, Bilateral, Length: Knee High, While patient is in bed, [facility] Sequential Compression Device Start: 03/01/22 18:51:00 EDT, Bilateral, Length: Knee High, While patient is in bed, Continuous [facility]) Medications acetaminophen, 650 mg= 2 Tab, Oral, Q6H, PRN calcium gluconate, 1 Gram= 100 mL, IV Piggyback, Daily, PRN calcium gluconate, 2 Gram= 100 mL, IV Piggyback, Daily, PRN calcium gluconate, 2 Gram= 100 mL, IV Piggyback, Q12H, PRN Dextrose 50% injection, 25 Gram= 50 mL, IV Push, Q15Min, PRN Dextrose 50% injection, 25 Gram= 50 mL, IV Push, Q15Min, PRN Dextrose 50% injection, 25 Gram= 50 mL, IV Push, Q15Min, PRN Dextrose 50% injection, 12.5 Gram= 25 mL, IV Push, Q15Min, PRN docusate sodium, 100 mg= 10 mL, Feeding [...] mL, Oral, Q15Min, PRN guaiFENesin, 400 mg= 2 Tab, Oral, Q6H heparin, 5000 Units= 1 mL, SubCutaneous, Q8H hydrALAZINE, 10 mg= 0.5 mL, IV Push, Q6H, PRN insulin glargine, 28 Units= 0.28 mL, SubCutaneous, Daily insulin lispro 76 kg - 100 kg, 76 kg - 100 kg scale, SubCutaneous, AC and at Bedtime magnesium sulfate, 2 Gram= 50 mL, IV Piggyback, Daily, PRN magnesium sulfate, 2 Gram= 50 mL, IV Piggyback, Q2H, PRN morphine, 2 mg= 1 mL, IV Push, Q2H, PRN niCARdipine injection 25 mg + Dextrose 5% in Water intravenous solution 250 mL Pepcid, 20 mg= 1 Tab, Oral, At Bedtime potassium bicarbonate, 20 mEq= 1 [...] Test Name Test Result Date/Time Sodium Level 138 mmol/L 03/12/2022 06:17 EDT Potassium Level 3.5 mmol/L 03/12/2022 06:17 EDT Chloride Level 101 mmol/L (Low) 03/12/2022 06:17 EDT Carbon Dioxide Level 29 mmol/L 03/12/2022 06:17 EDT Anion Gap 12 03/12/2022 06:17 EDT Glucose Level 176 mg/dL (High) 03/12/2022 06:17 EDT Blood Urea Nitrogen 49 mg/dL (High) 03/12/2022 06:17 EDT Creatinine Level 2.00 mg/dL (High) 03/12/2022 06:17 EDT eGFR 31 mL/min/1.73m2 (Low) 03/12/2022 06:17 EDT eGFR NonAfrican 25 mL/min/1.73m2 (Low) 03/12/2022 06:17 EDT Bun/Creatinine 24.5 (High) 03/12/2022 06:17 EDT Calcium Level 8.9 mg/dL 03/12/2022 06:17 EDT Protein Total 7.4 Gram/dL 03/12/2022 06:17 EDT Albumin Level 3.1 Gram/dL (Low) 03/12/2022 06:17 EDT Globulin 4.3 Gram/dL 03/12/2022 06:17 EDT A/G Ratio 0.7 (Low) 03/12/2022 06:17 EDT Bilirubin Total 0.6 mg/dL 03/12/2022 06:17 EDT Alk Phos 52 Units/Liter 03/12/2022 06:17 EDT AST 18 Units/Liter 03/12/2022 06:17 EDT ALT 24 Units/Liter 03/12/2022 06:17 EDT Magnesium Level 1.7 mg/dL 03/12/2022 06:17 EDT Phosphorus 3.6 mg/dL 03/12/2022 06:17 EDT Device Comment 1 Notified MD RBV 03/12/2022 10:50 EDT Device Comment 1 Protocols Followed 03/12/2022 05:28 EDT Device Comment 1 Protocols Followed 03/11/2022 21:48 EDT Device Comment 1 Notified Nurse RBV 03/11/2022 15:58 EDT Device Comment 2 Notified Nurse RBV 03/12/2022 05:28 EDT Device Comment 2 Notified Nurse RBV 03/11/2022 21:48 EDT Glucose POC2 234 mg/dL (High) 03/12/2022 10:50 EDT Glucose POC2 158 mg/dL (High) 03/12/2022 05:28 EDT Glucose POC2 134 mg/dL (High) 03/11/2022 21:48 EDT Glucose POC2 211 mg/dL (High) 03/11/2022 15:58 EDT Calcium Ionized 1.17 mmol/L 03/12/2022 05:21 EDT ProBNP 2553 pg/mL (High) 03/12/2022 06:17 EDT WBC 5.3 K/uL 03/12/2022 06:17 EDT RBC 2.95 Million/uL (Low) 03/12/2022 06:17 EDT Hgb 8.3 g/dL (Low) 03/12/2022 06:17 EDT Hgb 7.3 g/dL (Low) 03/12/2022 05:21 EDT Hgb 8.2 g/dL (Low) 03/11/2022 20:29 EDT Hgb 8.3 g/dL (Low) 03/11/2022 14:14 EDT Hct 26.9 % (Low) 03/12/2022 06:17 EDT Hct 23.6 % (Low) 03/12/2022 05:21 EDT Hct 26.3 % (Low) 03/11/2022 20:29 EDT Hct 26.3 % (Low) 03/11/2022 14:14 EDT MCV 91.2 fL 03/12/2022 06:17 EDT MCH 28.1 pg 03/12/2022 06:17 EDT MCHC 30.9 Gram/dL (Low) 03/12/2022 06:17 EDT Platelet Count 146 K/uL (Low) 03/12/2022 06:17 EDT MPV 10.7 fL 03/12/2022 06:17 EDT RDW 15.6 % (High) 03/12/2022 06:17 EDT Neut % 58.0 % 03/12/2022 06:17 EDT Neut # 3.06 K/uL 03/12/2022 06:17 EDT Lymph % 21.1 % 03/12/2022 06:17 EDT Lymph # 1.11 x10(3)/uL 03/12/2022 06:17 EDT [place] % 10.1 % (High) 03/12/2022 06:17 EDT [place] # 0.53 K/uL 03/12/2022 06:17 EDT Eos % 5.3 % 03/12/2022 06:17 EDT Eos # 0.28 x10(3)/uL 03/12/2022 06:17 EDT Baso % 0.9 % 03/12/2022 06:17 EDT Baso # 0.05 x10(3)/uL 03/12/2022 06:17 EDT Slide Review No 03/12/2022 06:17 EDT IG# 0.24 x10(3)/uL (High) 03/12/2022 06:17 EDT IG% 4.60 % (High) 03/12/2022 06:17 EDT PT 10.3 Second(s) 03/12/2022 06:17 EDT INR 1.0 03/12/2022 06:17 EDT PTT 27.5 Second(s) 03/12/2022 06:17 EDT Procalcitonin 0.76 ng/mL 03/12/2022 06:17 EDT documented in this encounter Plan of Treatment Not on file documented as of this encounter Visit Diagnoses Not on filedocumented in this encounter
--- OUTSIDE RECORDS SUMMARY | 2025-02-21 13:33 | XMS_ITS | Encounter Summary ---
Author Organization [employer] Address [address] [place] [address] Care Team Providers Care Marketing Services Manager Name Role Phone Unavailable Primary Care Provider Unavailabl e Encounter Details Date Type Department Care Team (Late st Contact Info) Description 03/11/2022 Transcribed Document [facility] [place] Family Medicine [address] [place] [address] ProviderFlorentino MD [address] [place] [address] Social History Tobacco Use Types Packs/Day Years Used Date Smoking Tobacco: Never Assessed Comments Unknown Sex and Gender Information Value Date Recorded Sex Assigned at Not on file Legal Sex Female 1:44 PM CDT Gender Identity Not on file Sexual Orientation Not on file documented as of this encounter Miscellaneous Notes * Cerner Conversion Note - Florentino ProviderMD - 03/11/2022 5:00 AM CDT Chart Check - Review Order Profile Entered On: 03/11/2022 7:43 EDT Performed On: 03/11/2022 5:00 EDT by Izzy Chowdhury Non Emp RN Chart Check Powerplans Initiated/Discontinued as Appropriate : Yes All Active Orders Reviewed : Yes Izzy Chowdhury Non Emp RN - 03/11/2022 7:43 EDT documented in this encounter Plan of Treatment Not on file documented as of this encounter Visit Diagnoses Not on filedocumented in this encounter
--- OUTSIDE RECORDS SUMMARY | 2025-02-21 13:33 | XMS_ITS | Encounter Summary ---
Author Organization [employer] Address [address] [place] [address] Care Team Providers Care Crusher Setter Name Role Phone Unavailable Primary Care Provider Unavailabl e Encounter Details Date Type Department Care Team (Late st Contact Info) Description 03/10/2022 Transcribed Document [facility] [place] Family Medicine [address] [place] [address] ProviderFlorentino MD [address] [place] [address] Social History Tobacco Use Types Packs/Day Years Used Date Smoking Tobacco: Never Assessed Comments Unknown Sex and Gender Information Value Date Recorded Sex Assigned at Not on file Legal Sex Female 1:44 PM CDT Gender Identity Not on file Sexual Orientation Not on file documented as of this encounter Miscellaneous Notes * Cerner Conversion Note - Florentino Lynne MD - 03/10/2022 3:00 AM CDT Nutrition Assessment Entered On: 03/10/2022 10:39 EDT Performed On: 03/10/2022 10:39 EDT by Sujatha Villanueva Dietitian Nutrition Assessment Nutrition Assessment Reason : Follow Up Sujatha Villanueva Dietitian - 03/10/2022 10:39 EDT Current Nutrition Regimen Comment : 03/10: High f/u. Pt was extubated on 03/08 and is currently on 4L NC with intermittent bipap. EN continues to run @ goal via corpak. DRIVE THRU ORDER TAKER following and recommended to continue NPO status at this time. 03/06: High f/up. Pt remains intubated and sedated. s/p bronch yesterday. Corpak placed yesterday and in duodenal bulb. TF running @ 30 ml/hr during visit, slowly advancing to goal. No issues reported per RN. Dx: cardiopulmonary arrest, acute respiratory failure, sepsis/septic shock, ARF PMH: paraplegia, hyperlipidemia, DM, Labs: K 3.3, Glu 253, BUN 41, Cr 1.8, GFR 29, ALT 9, FSB/251/228 Meds: albumin, diuril, docusate, Pepcid, lantus, SSI, senna, abx, PRN K bicarb GI: active BS, +Corpak (duodenal bulb), LBM 03/09 Skin: stg 3 vs 4 PU to L hip + NPWT Diet: NPO EN: Vital HP @ 55 ml/hr- goal Ht: 64 in Wt: 207#/94.2 kg (admit), no new wt (02/27), 91.5 kg (03/03), 94.2 kg (03/06), 93.5kg (03/10) IBW (adjusted for paraplegia): 50.4 kg (186%) BMI (inaccurate due to paraplegia): 35.6 Est Needs: 4463-9344 kcals (11-14 kcals/kg), ~100 g pro (>2 g pro/kg IBW) Sujatha Villanueva Dietitian - 03/10/2022 11:02 EDT Nutrition Diagnoses Oral or Nutrition Support Intake : Inadequate oral intake Oral or Nutr Support Intake Related To : intubated Oral or Nutr Support Intake Evidenced by : NPO; need for EN Oral or Nutrition Support Intake Status : Resolved Nutrient Intake : Increased nutrient needs Nutrient Intake Related to : wound Nutrient Intake As Evidenced by : stg 4 PU to L hip +NPWT Nutrient Intake Status : Active Increased Nutrient Needs Comment : protein Functional : Altered GI function Functional Related to : dysphagia Functional As Evidenced by : need for EN Functional Diagnoses Status : Active Sujatha Villanueva Dietitian - 03/10/2022 11:02 EDT Nutrition Interventions Enteral/Parenteral Nutrition : Continue current enteral nutrition regimen Sujatha Villanueva Dietitian - 03/10/2022 11:02 EDT Monitoring/Evaluation Enteral Nutrition Intake : Tube Feeding Tolerance Weight Status : Weight Maintanence Gastrointestinal Function : Bowel Function Integumentary : Pressure Ulcer Status Sujatha Villanueva Dietitian - 03/10/2022 11:02 EDT Nutrition Recommendations Dietitian Recommendations : 1. Continue Vital HP @ goal of 55 ml/hr (provides 1210 kcal and 106 g protein). FW per MD Goal: meet est needs 2. Once feasible, advance diet per DRIVE THRU ORDER TAKER + Cardiac, 60 g CHO restrictions with ONS prn Goal: safe swallow, intakes > 50% 3. Monitor e-lytes, replace prn Goal: WNLs 4. Monitor FSBS, adjust insulin prn Goal: glucose 140-180 5. Monitor wt 1x/week Goal: no significant wt loss Risk- High Sujatha Villanueva, Dietitian - 03/10/2022 11:02 EDT documented in this encounter Plan of Treatment Not on file documented as of this encounter Visit Diagnoses Not on filedocumented in this encounter
--- OUTSIDE RECORDS SUMMARY | 2025-02-21 13:34 | XMS_ITS | Encounter Summary ---
Author Organization [employer] Address [address] [place] [address] Care Team Providers Care Sr. Pricing Analyst Name Role Phone Unavailable Primary Care Provider Unavailabl e Encounter Details Date Type Department Care Team (Late st Contact Info) Description 05/08/2022 Transcribed Document [facility] [place] [address] [place] [address] ProviderFlorentino MD [address] [place] [address] Social History Tobacco Use Types Packs/Day Years Used Date Smoking Tobacco: Never Assessed Comments Unknown Sex and Gender Information Value Date Recorded Sex Assigned at Not on file Legal Sex Female 1:44 PM CDT Gender Identity Not on file Sexual Orientation Not on file documented as of this encounter Miscellaneous Notes * Cerner Conversion Note - Florentino Lynne MD - 05/08/2022 4:47 PM CDT Patient: ALYSSA AZUL Age: 62 Years Sex: Female : 1960 Subjective Date of service May 08, 2022 The patient reports no acute events overnight. She denies fever or chills. Nursing staff report that she remains afebrile with stable vital signs and saturating appropriately on room air. She continues to utilize BiPAP at night. Review of systems Constitutional: No fever, no chills Respiratory: No acute dyspnea, no cough Cardiovascular: No chest pain, no palpitation, no increasing pedal edema GI: No nausea, vomiting or diarrhea Neuro: No confusion, no acute motor or sensory changes Vital Signs T: 36.7 ??C TMIN: 36.4 ??C TMAX: 37 ??C HR: 85(Monitored) RR: 18 BP: 148/91 SpO2: 98% Oxygen Settings (Last) Oxygen Therapy Mode: Room air (05/08/22 05:38:00) Intake & Output Totals Last 24 Hours (7a-7a) Input Total: 400 mL Output Total: 1850 mL Balance: -1450 mL Physical Exam General: Alert and oriented, well nourished, BMI 29, no acute distress. Eye: PERRL, EOMI, Conjunctiva appropriate. HENT: Normocephalic, normal hearing, moist oral mucosa, O/P appropriate. Neck: Supple, non-tender, no JVD, no lymphadenopathy. Lungs: Appropriate effort, Clear to auscultation, adequate excursion. Heart: regular rate, regular rhythm, no murmur, no pedal edema. Abdomen: Soft, non-tender, non-distended, normal bowel sounds. Musculoskeletal: adequate range of motion and tone of upper extremities, appropriate strength of upper extremities Skin: Skin is warm, dry and pink, no diffuse rashes. Neurologic: Awake, alert and oriented X 3, sensory intact. Psychiatric: Cooperative, appropriate mood and affect. Assessment/Plan Sepsis, POA Secondary to UTI Transition to oral fluid resuscitation Blood cultures no growth to date IV cefepime until 05/08 Oral Zyvox until 05/08 Micafungin therapy Infectious disease consult noted Recurrent urinary tract infection Urine cultures no growth to date Recently admitted with septic shock due to Pseudomonas and E. coli UTI Appreciate ID recommendations Started on cefepime, Zyvox and IV micafungin JAVIER Improved Encouraging oral hydration Avoid nephrotoxic medications. Ending electrolytes and creatinine Left gluteal wound POA Chronic paraplegia Antibiotic therapy Daily dressing Wound care consult noted Diabetes mellitus Routine blood sugar monitoring Sliding scale insulin Carbohydrate controlled diet Anemia Iron deficiency noted Iron replacement therapy Paraplegia Chronic pain Physical therapy evaluations The patient is hospitalized day 9 with above diagnoses. We appreciate infectious disease consult and recommendations. Case management is assisting with next site of care which is expected to be SNF for ongoing wound care. Barriers to discharge currently include completion of IV antibiotic therapy, identifying facility to transition care. Expected date of discharge once facility to transition care is identified. VTE Prophylaxis - Medical Heparin 5,000 Units, SubCutaneous, Inj, Q8HInt, Routine, Start 04/29/22 2:00:00 EDT, 04/29/22 1:32:00 EDT (KASI RAVI) Sequential Compression Device Start: 04/29/22 1:02:00 EDT, Bilateral, Length: Knee High, While patient is in bed, Continuous Order (KSAI RAVI) Medications acetaminophen, 650 mg= 2 Tab, Oral, Q6H, PRN Betadine 10% topical solution, 1 Application, Topical, BID Betadine 10% topical solution, 1 Application, Topical, BID Betadine 10% topical solution, 1 Application, Topical, BID cefepime + Sodium Chloride 0.9% intravenous solution 50 mL cloNIDine, 0.1 mg= 1 Tab, Oral, Q4H, PRN Dextrose 50% injection, 25 Gram= 50 mL, IV Push, Q15Min, PRN Dextrose 50% injection, 25 Gram= 50 mL, IV Push, Q15Min, PRN Dextrose 50% injection, 25 Gram= 50 mL, IV Push, Q15Min, PRN Dextrose 50% injection, 12.5 Gram= 25 mL, IV Push, Q15Min, PRN ferrous sulfate, 325 mg= 1 Tab, Oral, TID With Meals Fish Oil, 2000 mg= 2 Cap, Oral, BID Afia-Q, 1 Cap, Oral, BID glucagon, 1 mg= 1 mL, IntraMuscular, Q15Min, PRN glucose 4 g oral tablet, chewable, 16 Gram= 4 Tab, Chew, Q15Min, PRN glucose 40% oral gel, 15 Gram= 37.5 mL, Oral, Q15Min, PRN heparin, 5000 Units= 1 mL, SubCutaneous, Q8HInt hydrALAZINE, 10 mg= 0.5 mL, IV Push, Q6H, PRN insulin lispro sliding scale, Scale A:, SubCutaneous, AC and at Bedtime micafungin [place] 5 mg-325 mg oral tablet, 1 Tab, Oral, Q6H, PRN Pepcid, 20 mg= 1 Tab, Oral, At Bedtime PRAVAstatin, 40 mg= 2 Tab, Oral, At Bedtime Vitamin C, 500 mg= 1 Tab, Oral, BID Lab Results Test Name Test Result Date/Time Sodium Level 134 mmol/L (Low) 05/08/2022 04:56 EDT Potassium Level 4.9 mmol/L 05/08/2022 04:56 EDT Chloride Level 105 mmol/L 05/08/2022 04:56 EDT Carbon Dioxide Level 23 mmol/L 05/08/2022 04:56 EDT Anion Gap 11 05/08/2022 04:56 EDT Glucose Level 204 mg/dL (High) 05/08/2022 04:56 EDT Blood Urea Nitrogen 34 mg/dL (High) 05/08/2022 04:56 EDT Creatinine Level 1.50 mg/dL (High) 05/08/2022 04:56 EDT eGFR 43 mL/min/1.73m2 (Low) 05/08/2022 04:56 EDT eGFR NonAfrican 35 mL/min/1.73m2 (Low) 05/08/2022 04:56 EDT Bun/Creatinine 22.7 (High) 05/08/2022 04:56 EDT Calcium Level 9.2 mg/dL 05/08/2022 04:56 EDT Device Comment 1 No action Require 05/08/2022 12:19 EDT Device Comment 1 Notified Nurse RBV 05/08/2022 05:31 EDT Device Comment 1 Notified Nurse RBV 05/07/2022 20:33 EDT Device Comment 1 Notified Nurse RBV 05/07/2022 16:49 EDT Glucose POC2 226 mg/dL (High) 05/08/2022 12:19 EDT Glucose POC2 181 mg/dL (High) 05/08/2022 05:31 EDT Glucose POC2 217 mg/dL (High) 05/07/2022 20:33 EDT Glucose POC2 167 mg/dL (High) 05/07/2022 16:49 EDT Electronically signed by Sumaya, [facility] Conversion Manager Clinical Services Cerner at 12/21/2022 5:10 PM CDT documented in this encounter Plan of Treatment Not on file documented as of this encounter Visit Diagnoses Not on filedocumented in this encounter
--- OUTSIDE RECORDS SUMMARY | 2025-02-21 13:34 | XMS_ITS | Encounter Summary ---
Author Organization [employer] Address [address] [place] [address] Care Team Providers Care Produce Inspector Name Role Phone Unavailable Primary Care Provider Unavailabl e Encounter Details Date Type Department Care Team (Late st Contact Info) Description 03/10/2022 Transcribed Document [facility] [place] [facility] [place] [address] ProviderFlorentino MD [facility] [place] [address] Social History Tobacco Use Types Packs/Day Years Used Date Smoking Tobacco: Never Assessed Comments Unknown Sex and Gender Information Value Date Recorded Sex Assigned at Not on file Legal Sex Female 1:44 PM CDT Gender Identity Not on file Sexual Orientation Not on file documented as of this encounter Miscellaneous Notes * Cerner Conversion Note - Florentino Lynne MD - 03/10/2022 9:11 AM CDT Patient: ALYSSA AZUL Age: 61 [...] on ventilator support and both son and [id number] are present at bedside to give some [...] higher level care, she was transferred to [facility] on 02/22. Patient was extubated on 02/22 [...] sodium trending up 149 spoke to the workday manager will start patient on tube feeds will [...] bilaterally we will start patient on CPT Intake & Output Totals Last 24 Hours (7a-7a) Intake (71 Events) Medications (493.14 mL) Enteral Additional Water Given (720 mL) Enteral Feeding Amount (1320 mL) Output (6 Events) Valenzuela Catheter (2950 mL) Input Total: 2533.14 mL Output Total: 2950 mL Balance: -416.86 mL Review of Systems Constitutional: Weakness, Fatigue. [...] 3 mL, Nebulized Inhalation, RT_Q6H, PRN: Dyspnea Mucomyst 20 % inhalation solution: 1 mL, Nebulized Inhalation, RT_QID Pepcid: 20 mg, IV Push, At Bedtime Pulmicort Respules: 0.5 mg, Nebulized Inhalation, RT_BID Zofran: 4 mg, IV Push, Q6H, PRN: Nausea Zosyn + Dextrose 5% in Water intravenous solution 50 mL: 2.25 Gram, 16.67 mL/Hr, IV Piggyback, Q6HInt acetaminophen: 650 mg, Oral, Q6H, PRN: Temperature albumin human 25% intravenous solution: 25 Gram, 100 mL, IV Piggyback, Q12H calcium gluconate: 1 Gram, 100 mL, 100 [...] docusate sodium: 100 mg, Feeding Tube, Daily glucagon: 1 mg, IntraMuscular, Q15Min, PRN: Other (See Comment) glucose 4 g oral tablet, chewable: 16 Gram, 4 Tab, Chew, Q15Min, PRN: Other (See Comment) glucose 40% oral gel: 15 Gram, 37.5 mL, Oral, Q15Min, PRN: Other (See Comment) guaiFENesin: 400 mg, Oral, Q6H heparin: 5,000 Units, SubCutaneous, Q8H hydrALAZINE: 10 mg, IV Push, Q6H, PRN: Hypertension insulin glargine: 22 Units, SubCutaneous, Daily insulin regular sliding scale: [...] Bedtime, 0 Refill(s), Medications (39) Active Scheduled: (13) acetylcysteine 20% liq 4 mL 1 mL, Nebulized Inhalation, RT_QID albumin human 25% 25 g/100 mL inj 25 Gram 100 mL, IV Piggyback, Q12H albuterol-ipratropium inh 3 mL 3 mL, Nebulized Inhalation, RT_Q6H budesonide 0.5 mg/2 mL inh susp 0.5 mg 2 mL, Nebulized Inhalation, RT_BID chlorothiazide 500 mg inj 500 mg, IV Push, Q12H docusate sod 100 mg/10 mL liq 100 mg 10 mL, Feeding Tube, Daily famotidine 20 mg/2 mL inj 20 mg 2 mL, IV Push, At Bedtime guaiFENesin 100 mg/5 mL liq 15 mL 400 mg 20 mL, Oral, Q6H heparin 5,000 units/1 mL inj 5,000 Units 1 mL, SubCutaneous, Q8H insulin glargine 1 unit/0.01 mL inj 22 Units 0.22 mL, SubCutaneous, Daily insulin regular 1 unit/0.01 mL inj 3mL Scale C, SubCutaneous, Q6H piperacillin-tazobactam + Dextrose 5% in Water 50 mL 2.25 Gram, IV Piggyback, Q6HInt senna 8.8 mg/5 mL liq 8.8 mg [...] History of obstructive sleep apnea / IMO [id number] / Confirmed, Active Problems (5) Chronic kidney disease (CKD), stage III (moderate) Diabetes History of obstructive sleep apnea Hyperlipidemia Hypertension Physical Examination VS/Measurements Vitals Signs (last 24 hrs) Last Charted Minimum Maximum Temp 98.3 (MAR 10 08:00) 97.7 (MAR 09 16:00) 98.2 (MAR 09 20:00) Mon HR 80 (MAR 10 09:00) 69 (MAR 09 11:00) 96 (MAR 09 20:30) Resp Rate L 13 (MAR 10 09:00) L 13 (MAR 10 08:00) H 31 (MAR 09 20:00) SBP H 160 (MAR 10 09:00) 130 (MAR 09 22:00) H 186 (MAR 10 00:00) DBP 73 (MAR 10 09:00) L 59 (MAR 09 21:00) 86 (MAR 10 00:00) MAP 112 (MAR 10 09:00) 85 (MAR 09 21:00) 124 (MAR 10 00:00) SpO2 97 (MAR 10 09:00) L 92 (MAR 09 18:00) 100 (MAR 09 11:00) Intake & Output Totals Last 24 Hours (7a-7a) Intake (71 Events) Medications (493.14 mL) Enteral Additional Water Given (720 mL) Enteral Feeding Amount (1320 mL) Output (6 Events) Valenzuela Catheter (2950 mL) Input Total: 2533.14 mL Output Total: 2950 mL Balance: -416.86 mL General: Alert and oriented, No acute [...] review: Labs (Last four charted values) WBC 4.8 (MAR 10) 8.6 (MAR 09) 8.9 (MAR 08) 9.3 (MAR 07) HB L 7.4 (MAR 10) L 7.8 (MAR 09) L 7.8 (MAR 08) L 7.8 (MAR 07) HCT L 23.8 (MAR 10) L 25.5 (MAR 09) L 25.6 (MAR 08) L 25.1 (MAR 07) Plt L 131 (MAR 10) L 131 [...] 2.2 (MAR 08) L 2.5 (MAR 07) . Radiology Results (Last 48 hours) [id number] -- 03/01/2022 17:45 CR Chest 1 Vw [...] by Dr. Dariel Philippe.Transcribed by Caroline Scales (R). -CT chest from 03/01/2022 reviewed showed RLL [...] chronic lung diseases Smoker status not known Cardiovascular S/p cardiac arrest HTN urgency Echocardiogram done on 03/09/2022. EF 55%. Normal systolic function. Moderate LVH. Indeterminate diastolic function. No significant valvular heart disease. ID Severe sepsis secondary to right lower lobe aspiration pneumonia. bilateral lower lobe pneumonia secondary to Klebsiella pneumonia. PNA PCR panel from sputum done on 03/01/22: Klebsiella and MSSA. Leukocytosis -- improving SSTI on R hip Neuro Off sedation. Mental status back to her baseline. Alert, awake, oriented x3. Baseline paraplegia Baseline mentation not observed Renal Acute kidney injury. Non oliguric type. CKD. Electrolyte abnormalities Hyperchloremia Endocrine T2DM with hyperglycemia. Glycemic control Hematology/Oncology Leukocytosis Morbid Obesity. BMI of 34.1 PLAN: Extubated on 03/08/22. Supplemental O2, currently on 4 L/min NIPPV: BIPAP settings 15/5, rate 18 PRN for increased work of breathing. Encourage incentive spirometry ABG noted acute on chronic hypercapnic respiratory failure recommend continue with the BiPAP 4 hours on 4 hours off. Chest x-ray reviewed independently showed left lower lobe opacity ultrasound chest on 03/03 showed 3 view pleural effusions bilateral, will start patient CV team every 6 hours DuoNebs Q6h. Pulmicort nebs BID. Mucinex 400mg Q6h, due to thick secretions from ET tube. Family agreed to bronchoscopy on 03/05 which was indicated for worsening right lung infiltrate with thick secretions. Please refer to bronchoscopy note for further details. Chest PT QID. Mucomyst nebs x3d. ID following. Case has been discussed with Dr. Vazquez in details plan of care was updated. Current antibiotics per ID: Zosyn. PNA PCR panel from sputum done on 03/01/22: Klebsiella and MSSA. Trend infectious markers. If she becomes afebrile or leukocytosis worsens, will order new blood/urine cultures. Nephrology consulted per primary, appreciate input. Glycemic control: Target glucose 140-180mg/dl. Nutrition: Case has been discussed with the workday manager, currently on tube feeds, trophic feeding advance to goal. Corpak in place. GI prophylaxis: Pepcid. VTE prophylaxis: Heparin SQ Labs and images reviewed. We will consult PT/OT. We will consult speech. We will continue monitoring the ICU as patient is still at high risk for further decline Prognosis: Guarded. At risk for respiratory decline and hemodynamic decline. CODE STATUS: Full Code Disposition: ICU I [...]
--- OUTSIDE RECORDS SUMMARY | 2025-02-21 13:34 | XMS_ITS | Encounter Summary ---
Author Organization [employer] Address [address] [place] [address] Care Team Providers Care Bridge Expert Name Role Phone Unavailable Primary Care Provider Unavailabl e Encounter Details Date Type Department Care Team (Late st Contact Info) Description 03/10/2022 Transcribed Document [facility] [place] Medicine [address] [place] [address] ProviderFlorentino MD [address] [place] [address] Social History Tobacco Use Types Packs/Day Years Used Date Smoking Tobacco: Never Assessed Comments Unknown Sex and Gender Information Value Date Recorded Sex Assigned at Not on file Legal Sex Female 1:44 PM CDT Gender Identity Not on file Sexual Orientation Not on file documented as of this encounter Miscellaneous Notes * Cerner Conversion Note - Historical ProviderMD - 03/10/2022 6:10 AM CDT Height and Weight, Routine Entered On: 03/10/2022 6:10 EDT Performed On: 03/10/2022 6:10 EDT by Deborah Chilel Patient Marketing Segment Manager Gopal Height and Weight, Routine Routine Weight Source : Bed scale Routine Weight Entry Format : Metric Routine Weight, Kilograms : 93.5 kg(Converted to: 206 lb 2 oz) Routine Weight Calculation : 93.5 kg Height Source : Chart Height Entry Format : Davie Height, Feet : 5 ft Height, Inches : 4 Inch Clinical Height : 162.56 cm Body Surface Area (BSA), Routine : 1.98 m2 Body Mass Index (BMI), Routine : 35.38 kg/m2 Deborah Chilel Patient Marketing Segment Manager Gopal - 03/10/2022 6:10 EDT documented in this encounter Plan of Treatment Not on file documented as of this encounter Visit Diagnoses Not on filedocumented in this encounter
--- OUTSIDE RECORDS SUMMARY | 2025-02-21 13:34 | XMS_ITS | Encounter Summary ---
Author Organization [facility] Address [address] [place] [address] Care Team Providers Care Disability Manager Name Role Phone Unavailable Primary Care Provider Unavailabl e Encounter Details Date Type Department Care Team (Late st Contact Info) Description 03/04/2022 Transcribed Document [facility] [place] [facility] [place] [address] ProviderFlorentino MD [address] [place] [address] Social History Tobacco Use Types Packs/Day Years Used Date Smoking Tobacco: Never Assessed Comments Unknown Sex and Gender Information Value Date Recorded Sex Assigned at Not on file Legal Sex Female 1:44 PM CDT Gender Identity Not on file Sexual Orientation Not on file documented as of this encounter Miscellaneous Notes * Cerner Conversion Note - Florentino ProviderMD - 03/04/2022 9:42 AM CDT UM Authorization Entered On: 03/04/2022 9:43 EDT Performed On: 03/04/2022 9:42 EDT by SHERIF LYNCH, Transit Department Clerk Primary Insurance Authorization Authorization and Policy Numbers : Insurance 1 Health Plan: [facility] Policy Number: [id number] Authorization Number: Insurance Primary Name : [facility] Policy Number: [id number] Authorization Number: Authorization Status-Primary : Awaiting callback Reference Number-Primary : [id number] Authorized Service Begin Date-Primary : 03/01/2022 EDT Authorization Comments-Primary : Rec vm from Hannah at [facility] on 1753 line on 03/02/22 at 8:42am She is req clinical be sent in Transf to [facility] so she could follow up Historical Authorization Comments-Primary : Comment 1: auth # per star notes, faxed clinicals via [employer] - Smartphone RFID 03/01 (JOSEPH GUTIERREZ RN-UTILIZATION MANAGEMENT REVIEW NON-EXEMPT 03/02/2022 11:28) SHERIF LYNCH, Transit Department Clerk - 03/04/2022 9:42 EDT documented in this encounter Plan of Treatment Not on file documented as of this encounter Visit Diagnoses Not on filedocumented in this encounter
--- OUTSIDE RECORDS SUMMARY | 2025-02-21 13:34 | XMS_ITS | Encounter Summary ---
Author Organization [employer] Address [address] [place] [address] Care Team Providers Care Senior Ios Developer Name Role Phone Unavailable Primary Care Provider Unavailabl e Encounter Details Date Type Department Care Team (Late st Contact Info) Description 05/09/2022 Transcribed Document [facility] [place] Family Medicine [facility] [place] [address] ProviderFlorentino MD [address] [place] [address] Social History Tobacco Use Types Packs/Day Years Used Date Smoking Tobacco: Never Assessed Comments Unknown Sex and Gender Information Value Date Recorded Sex Assigned at Not on file Legal Sex Female 1:44 PM CDT Gender Identity Not on file Sexual Orientation Not on file documented as of this encounter Miscellaneous Notes * Cerner Conversion Note - Florentino Lynne MD - 05/09/2022 2:03 PM CDT Please Modify Before Signing CLINICAL DOCUMENTATION CLARIFICATION FORM: Dear Provider: Dr. Dickson Date: 05/09/2022 Please exercise your independent, professional judgment in responding to the clarification form. Clinical indicators are provided on the bottom of this form for your review Please check appropriate box(es): [ x ] UTI ??? due to or associated with urostomy [ ] UTI NOT due to or associated with urostomy [ ] Other diagnosis [ ] Unable to determine For continuity of documentation, please document condition throughout progress notes and discharge summary. Thank You. To be completed by CDI/Coding staff for Provider review: Present Clinical Indicators - Signs / Symptoms / Labs Results and Location in Medical Record X Positive urinalysis w bacteria/elevated WBCs 04/2981-Hfj-Iqqfn Bacteremia 2+, WBC TNTC, Leukocyte Estrace 500 Present Risk Factors Results and Location in Medical Record X History of urostomy 04/29-H&P X Recurrent UTIs 04/29-H&P-recurrent UTIs, recent pseudomonal and E. coli UTI Present Treatments Results and Location in Medical Record X Antibiotics 04/2986-[id number]-[id number], Cefepime, Rocephin, Zyvox, and Micafungin X IVF 04/29-ED-NS 2500ml per sepsis protocol CDS/Tea Tree Farmer Signature: Giulia Roman RN, CDS Phone #: [phone] This is a permanent part of the Medical Record 2021 [facility] Reviewed: 05/2022 documented in this encounter Plan of Treatment Not on file documented as of this encounter Visit Diagnoses Not on filedocumented in this encounter
--- OUTSIDE RECORDS SUMMARY | 2025-02-21 13:34 | XMS_ITS | Encounter Summary ---
Author Organization [employer] Address [address] [place] [address] Care Team Providers Care Postal Mail Carrier Name Role Phone Unavailable Primary Care Provider Unavailabl e Encounter Details Date Type Department Care Team (Late st Contact Info) Description 05/08/2022 Transcribed Document [facility] [place] Family Medicine [address] [place] [address] ProviderFlorentino MD [address] [place] [address] Social History Tobacco Use Types Packs/Day Years Used Date Smoking Tobacco: Never Assessed Comments Unknown Sex and Gender Information Value Date Recorded Sex Assigned at Not on file Legal Sex Female 1:44 PM CDT Gender Identity Not on file Sexual Orientation Not on file documented as of this encounter Miscellaneous Notes * Cerner Conversion Note - Florentino ProviderMD - 05/08/2022 2:00 AM CDT Clinic Cma Details Entered On: 05/08/2022 2:24 EDT Performed On: 05/08/2022 2:00 EDT by Edda Guzman Non Emp Traveler RN Order Details Transport Mode Order Detail : Stretcher/Gurney Isolation Precautions Order Detail : Standard Precautions Order Detail : 0 Lift/Transfer : Maximal assist Central Line Order Detail : No Room Service : Appropriate Arterial Line : No Patient Needs Meds Crushed/Liquid : No Edda Guzman Non Emp Traveler RN - 05/08/2022 2:24 EDT documented in this encounter Plan of Treatment Not on file documented as of this encounter Visit Diagnoses Not on filedocumented in this encounter
--- OUTSIDE RECORDS SUMMARY | 2025-02-21 13:34 | XMS_ITS | Encounter Summary ---
Author Organization [employer] Address [address] [place] [address] Care Team Providers Care Library Circulation Clerk Name Role Phone Unavailable Primary Care Provider Unavailabl e Encounter Details Date Type Department Care Team (Late st Contact Info) Description 04/08/2022 Transcribed Document [facility] [place] Family Medicine [address] [place] [address] ProviderFlorentino MD [address] [place], [place] [id number] Social History Tobacco Use Types Packs/Day Years Used Date Smoking Tobacco: Never Assessed Comments Unknown Sex and Gender Information Value Date Recorded Sex Assigned at Not on file Legal Sex Female 1:44 PM CDT Gender Identity Not on file Sexual Orientation Not on file documented as of this encounter Miscellaneous Notes * Cerner Conversion Note - Florentino Lynne MD - 04/08/2022 4:33 PM CDT Consult Phone Call Documentation Entered On: 04/09/2022 12:56 EDT Performed On: 04/08/2022 16:33 EDT by Lashanda Bloom, CLINIC [id number] Phone Call for Consults Consult Phone Call/Page Attempt : First call Consult Reason : called Dr. Abraham to inform her of consult, she was already aware of consult Physician Requesting Consult : LUIS ANGEL CUNNINGHAM DO Physician Requested for Consult : KARYNA ABRAHAM MD-OBG Provider Team Notified Name : Lashanda Gonzales, CLINIC [id number] - 04/09/2022 12:54 EDT documented in this encounter Plan of Treatment Not on file documented as of this encounter Visit Diagnoses Not on filedocumented in this encounter
--- OUTSIDE RECORDS SUMMARY | 2025-02-21 13:34 | XMS_ITS | Encounter Summary ---
Author Organization [employer] Address [address] [place] [address] Care Team Providers Care Stamping Machine Operator Name Role Phone Unavailable Primary Care Provider Unavailabl e Encounter Details Date Type Department Care Team (Late st Contact Info) Description 03/03/2022 Transcribed Document [facility] [place] Family Medicine [address] [place] [address] ProviderFlorentino MD [address] [place] [address] Social History Tobacco Use Types Packs/Day Years Used Date Smoking Tobacco: Never Assessed Comments Unknown Sex and Gender Information Value Date Recorded Sex Assigned at Not on file Legal Sex Female 1:44 PM CDT Gender Identity Not on file Sexual Orientation Not on file documented as of this encounter Miscellaneous Notes * Cerner Conversion Note - Florentino ProviderMD - 03/03/2022 5:17 AM CDT Chart Check - Review Order Profile Entered On: 03/03/2022 5:17 EDT Performed On: 03/03/2022 5:17 EDT by TRINIDAD LANDIS RN Chart Check Powerplans Initiated/Discontinued as Appropriate : Yes All Active Orders Reviewed : Yes TRINIDAD LANDIS RN - 03/03/2022 5:17 EDT Electronically signed by Sumaya [facility] Conversion Tar Heater Operator Cerner at 12/21/2022 5:06 PM CDT documented in this encounter Plan of Treatment Not on file documented as of this encounter Visit Diagnoses Not on filedocumented in this encounter
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
--- OUTSIDE RECORDS SUMMARY | 2025-02-21 13:34 | XMS_ITS | Encounter Summary ---
Author Organization [employer] Address [address] [place] [address] Care Team Providers Care Radiologic Technology Teacher Name Role Phone Unavailable Primary Care Provider Unavailabl e Encounter Details Date Type Department Care Team (Late st Contact Info) Description 04/08/[address] [facility] [place] Family Medicine [address] [place] [address] ProviderFlorentino MD [address] [place] [address] Social History Tobacco Use Types Packs/Day Years Used Date Smoking Tobacco: Never Assessed Comments Unknown Sex and Gender Information Value Date Recorded Sex Assigned at Not on file Legal Sex Female 1:44 PM CDT Gender Identity Not on file Sexual Orientation Not on file documented as of this encounter Miscellaneous Notes * Cerner Conversion Note - Florentino ProviderMD - 04/08/2022 6:30 AM CDT ED Event Note Entered On: 04/08/2022 6:57 EDT Performed On: 04/08/2022 6:30 EDT by Alma Shore Rn ED Event Note ED Event Date/Time : 04/08/2022 6:30 EDT ED Description of Event : shabana astorga applied Alma Shore Rn - 04/08/2022 6:57 EDT documented in this encounter Plan of Treatment Not on file documented as of this encounter Visit Diagnoses Not on filedocumented in this encounter
--- OUTSIDE RECORDS SUMMARY | 2025-02-21 13:34 | XMS_ITS | Encounter Summary ---
Author Organization [facility] Address [address] [place] [address] Care Team Providers Care International Operations Manager Name Role Phone Unavailable Primary Care Provider Unavailabl e Encounter Details Date Type Department Care Team (Late st Contact Info) Description 03/02/2022 Transcribed Document [facility] [place] [address] [place] [address] ProviderFlorentino MD [address] [place] [address] Social History Tobacco Use Types Packs/Day Years Used Date Smoking Tobacco: Never Assessed Comments Unknown Sex and Gender Information Value Date Recorded Sex Assigned at Not on file Legal Sex Female 1:44 PM CDT Gender Identity Not on file Sexual Orientation Not on file documented as of this encounter Miscellaneous Notes * Cerner Conversion Note - Florentino ProviderMD - 03/02/2022 2:10 PM CDT Final Discharge Planning Entered On: 03/02/2022 14:12 EDT Performed On: 03/02/2022 14:10 EDT by MARLO SANCHES RN-Senior International Tax Manager Final Discharge Planning Discharge Arrangements : Patient Post-Acute Information Patient Name: ALYSSA MAYORGA Gender: Female : [birth year] Age: 61 Years No Post-Acute Placement(s) Listed No Post-Acute Service(s) Listed No [place] Referral(s) Listed Patient Offered Choice/Affiliations Explained : No Designation of Choice Signed : No Important Medicare Message Reviewed With : Other: NA Important Medicare Message Reviewed D/T : 03/01/2022 0:00 EDT Transportation Needs : Ambulance Follow Up Appointment Scheduled : No Is Patient High/Moderate Readmission Risk? : Yes Discharge To Care Management : Short [facility]-02 MARLO SANCHES RN-Senior International Tax Manager - 03/02/2022 14:10 EDT Final Narrative Note Final Narrative Note : PT HAD CARDIAC ARREST ON TELEMETRY. TRANSFERRED TO [facility] PER DOCUMENTATION. MARLO SANCHES RN-Senior International Tax Manager - 03/02/2022 14:10 EDT Electronically signed by Interface, [facility] Conversion Bull Driver Cerner at 12/21/2022 5:05 PM CDT documented in this encounter Plan of Treatment Not on file documented as of this encounter Visit Diagnoses Not on filedocumented in this encounter
--- OUTSIDE RECORDS SUMMARY | 2025-02-21 13:34 | XMS_ITS | Encounter Summary ---
Author Organization [employer] Address [address] [place] [address] Care Team Providers Care Photographer'S Assistant Name Role Phone Unavailable Primary Care Provider Unavailabl e Encounter Details Date Type Department Care Team (Late st Contact Info) Description 05/12/2022 Transcribed Document [facility] [place] Family Medicine [address] [place] [address] ProviderFlorentino MD [address] [place] [address] Social History Tobacco Use Types Packs/Day Years Used Date Smoking Tobacco: Never Assessed Comments Unknown Sex and Gender Information Value Date Recorded Sex Assigned at Not on file Legal Sex Female 1:44 PM CDT Gender Identity Not on file Sexual Orientation Not on file documented as of this encounter Miscellaneous Notes * Cerner Conversion Note - Florentino Lynne MD - 05/12/2022 5:09 PM CDT Patient Education Materials Follows: Hypotension As your heart beats, it forces blood through your body. This force is called blood pressure. If you have hypotension, you have low blood pressure. When your blood pressure is too low, you may not get enough blood to your brain or other parts of your body. This may cause you to feel weak, light-headed, have a fast heartbeat, or even pass out (faint). Low blood pressure may be harmless, or it may cause serious problems. What are the causes? Blood loss. ??? Not enough water in the body (dehydration). ??? Heart problems. ??? Hormone problems. ??? . ??? A very bad infection. ??? Not having enough of certain nutrients. ??? Very bad allergic reactions. ??? Certain medicines. What increases the risk? Age. The risk increases as you get older. ??? Conditions that affect the heart or the brain and spinal cord (central nervous system). ??? Taking certain medicines. ??? Being . What are the signs or symptoms? Feeling: ? Weak. ? Light-headed. ? Dizzy. ? Tired (fatigued). ??? Blurred vision. ??? Fast heartbeat. ??? Passing out, in very bad cases. How is this treated? Changing your diet. This may involve eating more salt (sodium) or drinking more water. ??? Taking medicines to raise your blood pressure. ??? Changing how much you take (the dosage) of some of your medicines. ??? Wearing compression stockings. These stockings help to prevent blood clots and reduce swelling in your legs. In some cases, you may need to go to the hospital for: ??? Fluid replacement. This means you will receive fluids through an IV tube. ??? Blood replacement. This means you will receive donated blood through an IV tube (transfusion). ??? Treating an infection or heart problems, if this applies. ??? Monitoring. You may need to be monitored while medicines that you are taking wear off. Follow these instructions at home: Eating and drinking ??? Drink enough fluids to keep your pee (urine) pale yellow. ??? Eat a healthy diet. Follow instructions from your doctor about what you can eat or drink. A healthy diet includes: ? Fresh fruits and vegetables. ? Whole grains. ? Low-fat (lean) meats. ? Low-fat dairy products. ??? Eat extra salt only as told. Do not add extra salt to your diet unless your doctor tells you to. ??? Eat small meals often. ??? Avoid standing up quickly after you eat. Medicines ??? Take jrpo-mvq-srgrahb and prescription medicines only as told by your doctor. ? Follow instructions from your doctor about changing how much you take of your medicines, if this applies. ? Do not stop or change any of your medicines on your own. General instructions ??? Wear compression stockings as told by your doctor. ??? Get up slowly from lying down or sitting. ??? Avoid hot showers and a lot of heat as told by your doctor. ??? Return to your normal activities as told by your doctor. Ask what activities are safe for you. ??? Do not use any products that contain nicotine or tobacco, such as cigarettes, e-cigarettes, and chewing tobacco. If you need help quitting, ask your doctor. ??? Keep all follow-up visits as told by your doctor. This is important. Contact a doctor if: ??? You throw up (vomit). ??? You have watery poop (diarrhea). ??? You have a fever for more than 2?3 days. ??? You feel more thirsty than normal. ??? You feel weak and tired. Get help right away if: ??? You have chest pain. ??? You have a fast or uneven heartbeat. ??? You lose feeling (have numbness) in any part of your body. ??? You cannot move your arms or your legs. ??? You have trouble talking. ??? You get sweaty or feel light-headed. ??? You pass out. ??? You have trouble breathing. ??? You have trouble staying awake. ??? You feel mixed up (confused). Summary ??? Hypotension is also called low blood pressure. It is when the force of blood pumping through your arteries is too weak. ??? Hypotension may be harmless, or it may cause serious problems. ??? Treatment may include changing your diet and medicines, and wearing compression stockings. ??? In very bad cases, you may need to go to the hospital. This information is not intended to replace advice given to you by your health care provider. Make sure you discuss any questions you have with your health care provider. Document Revised: 02/10/2019 Document Reviewed: 02/10/2019 [email or web address] Patient Education ? 2021 [email or web address] Dermatology Pressure Injury A pressure injury is damage to the skin and underlying tissue that results from pressure being applied to an area of the body. It often affects people who must spend a long time in a bed or chair because of a medical condition. Pressure injuries usually occur: ??? Over bony parts of the body, such as the tailbone, shoulders, elbows, hips, heels, spine, ankles, and back of the head. ??? Under medical devices that make contact with the body, such as respiratory equipment, stockings, tubes, and splints. Pressure injuries start as reddened areas on the skin and can lead to pain and an open wound. What are the causes? This condition is caused by frequent or constant pressure to an area of the body. Decreased blood flow to the skin can eventually cause the skin tissue to and break down, causing a wound. What increases the risk? You are more likely to develop this condition if you: ??? Are in the hospital or an extended care facility. ??? Are bedridden or in a wheelchair. ??? Have an injury or disease that keeps you from: ? Moving normally. ? Feeling pain or pressure. ??? Have a condition that: ? Makes you sleepy or less alert. ? Causes poor blood flow. ??? Need to wear a medical record specialist. ??? Have poor control of your bladder or bowel functions (incontinence). ??? Have poor nutrition (malnutrition). If you are at risk for pressure injuries, your health care provider may recommend certain types of mattresses, mattress covers, pillows, cushions, or boots to help prevent them. These may include products filled with air, foam, gel, or sand. What are the signs or symptoms? Symptoms of this condition depend on the severity of the injury. Symptoms may include: ??? Red or dark areas of the skin. ??? Pain, warmth, or a change of skin texture. ??? Blisters. ??? An open wound. How is this diagnosed? This condition is diagnosed with a medical history and physical exam. You may also have tests, such as: ??? Blood tests. ??? Imaging tests. ??? Blood flow tests. Your pressure injury will be staged based on its severity. Staging is based on: ??? The depth of the tissue injury, including whether there is exposure of muscle, bone, or tendon. ??? The cause of the pressure injury. How is this treated? This condition may be treated by: ??? Relieving or redistributing pressure on your skin. This includes: ? Frequently changing your position. ? Avoiding positions that caused the wound or that can make the wound worse. ? Using specific bed mattresses, chair cushions, or protective boots. ? Moving medical devices from an area of pressure, or placing padding between the skin and the device. ? Using foams, creams, or powders to prevent rubbing (friction) on the skin. ??? Keeping your skin clean and dry. This may include using a skin cleanser or skin barrier as told by your health care provider. ??? Cleaning your injury and removing any tissue from the wound (debridement). ??? Placing a bandage (dressing) over your injury. ??? Using medicines for pain or to prevent or treat infection. Surgery may be needed if other treatments are not working or if your injury is very deep. Follow these instructions at home: Wound care ??? Follow instructions from your health care provider about how to take care of your wound. Make sure you: ? Wash your hands with soap and water before and after you change your bandage (dressing). If soap and water are not available, use hand unit manager. ? Change your dressing as told by your health care provider.? Check your wound every day for signs of infection. Have a caregiver do this for you if you are not able. Check for: ? Redness, swelling, or increased pain. ? More fluid or blood. ? Warmth. ? Pus or a bad smell. Skin care ??? Keep your skin clean and dry. Gently pat your skin dry. ??? Do not rub or massage your skin. ??? You or a caregiver should check your skin every day for any changes in color or any new blisters or sores (ulcers). Medicines ??? Take yrkz-ocb-rhklwyc and prescription medicines only as told by your health care provider. ??? If you were prescribed an antibiotic medicine, take or apply it as told by your health care provider. Do not stop using the antibiotic even if your condition improves. Reducing and redistributing pressure ??? Do not lie or sit in one position for a long time. Move or change position every 1?2 hours, or as told by your health care provider. ??? Use pillows or cushions to reduce pressure. Ask your health care provider to recommend cushions or pads for you. General instructions ??? Eat a healthy diet that includes lots of protein. ??? Drink enough fluid to keep your urine pale yellow. ??? Be as active as you can every day. Ask your health care provider to suggest safe exercises or activities. ??? Do not abuse drugs or alcohol. ??? Do not use any products that contain nicotine or tobacco, such as cigarettes, e-cigarettes, and chewing tobacco. If you need help quitting, ask your health care provider. ??? Keep all follow-up visits as told by your health care provider. This is important. Contact a health care provider if: ??? You have: ? A fever or chills. ? Pain that is not helped by medicine. ? Any changes in skin color. ? New blisters or sores. ? Pus or a bad smell coming from your wound. ? Redness, swelling, or pain around your wound. ? More fluid or blood coming from your wound. ??? Your wound does not improve after 1?2 weeks of treatment. Summary ??? A pressure injury is damage to the skin and underlying tissue that results from pressure being applied to an area of the body. ??? Do not lie or sit in one position for a long time. Your health care provider may advise you to move or change position every 1?2 hours. ??? Follow instructions from your health care provider about how to take care of your wound. ??? Keep all follow-up visits as told by your health care provider. This is important. This information is not intended to replace advice given to you by your health care provider. Make sure you discuss any questions you have with your health care provider. Document Revised: 03/16/2019 Document Reviewed: 03/16/2019 [email or web address] Patient Education ? 2021 [email or web address] Endocrinology Diabetes Mellitus and Nutrition, Adult When you have diabetes, or diabetes mellitus, it is very important to have healthy eating habits because your blood sugar (glucose) levels are greatly affected by what you eat and drink. Eating healthy foods in the right amounts, at about the same times every day, can help you: ??? Control your blood glucose. ??? Lower your risk of heart disease. ??? Improve your blood pressure. ??? Reach or maintain a healthy weight. What can affect my meal plan? Every person with diabetes is different, and each person has different needs for a meal plan. Your health care provider may recommend that you work with a dietitian to make a meal plan that is best for you. Your meal plan may vary depending on factors such as: ??? The calories you need. ??? The medicines you take. ??? Your weight. ??? Your blood glucose, blood pressure, and cholesterol levels. ??? Your activity level. ??? Other health conditions you have, such as heart or kidney disease. How do carbohydrates affect me? Carbohydrates, also called carbs, affect your blood glucose level more than any other type of food. Eating carbs naturally raises the amount of glucose in your blood. Carb counting is a method for keeping track of how many carbs you eat. Counting carbs is important to keep your blood glucose at a healthy level, especially if you use insulin or take certain oral diabetes medicines. It is important to know how many carbs you can safely have in each meal. This is different for every person. Your dietitian can help you calculate how many carbs you should have at each meal and for each snack. How does alcohol affect me? Alcohol can cause a sudden decrease in blood glucose (hypoglycemia), especially if you use insulin or take certain oral diabetes medicines. Hypoglycemia can be a life-threatening condition. Symptoms of hypoglycemia, such as sleepiness, dizziness, and confusion, are similar to symptoms of having too much alcohol. ??? Do not drink alcohol if: ? Your health care provider tells you not to drink. ? You are , may be , or are planning to become . ??? If you drink alcohol: ? Do not drink on an empty stomach. ? Limit how much you use to: ? 0?1 drink a day for women. ? 0?2 drinks a day for men. ? Be aware of how much alcohol is in your drink. In the [place] one drink equals one 12 oz bottle of beer (355 mL), one 5 oz glass of wine (148 mL), or one 1? oz glass of hard liquor (44 mL). ? Keep yourself hydrated with water, diet soda, or unsweetened iced tea. ? Keep in mind that regular soda, juice, and other mixers may contain a lot of sugar and must be counted as carbs. What are tips for following this plan? Reading food labels ??? Start by checking the serving size on the Nutrition Facts label of packaged foods and drinks. The amount of calories, carbs, fats, and other nutrients listed on the label is based on one serving of the item. Many items contain more than one serving per package. ??? Check the total grams (g) of carbs in one serving. You can calculate the number of servings of carbs in one serving by dividing the total carbs by 15. For example, if a food has 30 g of total carbs per serving, it would be equal to 2 servings of carbs. ??? Check the number of grams (g) of saturated fats and trans fats in one serving. Choose foods that have a low amount or none of these fats. ??? Check the number of milligrams (mg) of salt (sodium) in one serving. Most people should limit total sodium intake to less than 2,300 mg per day. ??? Always check the nutrition information of foods labeled as low-fat or nonfat. These foods may be higher in added sugar or refined carbs and should be avoided. ??? Talk to your dietitian to identify your daily goals for nutrients listed on the label. Shopping ??? Avoid buying canned, pre-made, or processed foods. These foods tend to be high in fat, sodium, and added sugar. ??? Shop around the outside edge of the grocery store. This is where you will most often find fresh fruits and vegetables, bulk grains, fresh meats, and fresh dairy. Cooking ??? Use low-heat cooking methods, such as baking, instead of high-heat cooking methods like deep frying. ??? Cook using healthy oils, such as olive, canola, or sunflower oil. ??? Avoid cooking with butter, cream, or high-fat meats. Meal planning ??? Eat meals and snacks regularly, preferably at the same times every day. Avoid going long periods of time without eating. ??? Eat foods that are high in fiber, such as fresh fruits, vegetables, beans, and whole grains. Talk with your dietitian about how many servings of carbs you can eat at each meal. ??? Eat 4?6 oz (112?168 g) of lean protein each day, such as lean meat, chicken, fish, eggs, or tofu. One ounce (oz) of lean protein is equal to: ? 1 oz (28 g) of meat, chicken, or fish. ? 1 egg. ? ? cup (62 g) of tofu. ??? Eat some foods each day that contain healthy fats, such as avocado, nuts, seeds, and fish. What foods should I eat? Fruits Berries. Apples. Oranges. Peaches. Apricots. Plums. Grapes. [place]. Papaya. Pomegranate. Kiwi. Cherries. Vegetables Lettuce. Spinach. Leafy greens, including kale, chard, kavitha greens, and mustard greens. Beets. Cauliflower. Cabbage. Broccoli. Carrots. Green beans. Tomatoes. Peppers. Onions. Cucumbers. [place] sprouts. Grains Whole grains, such as whole-wheat or whole-grain bread, crackers, tortillas, cereal, and pasta. Unsweetened oatmeal. Quinoa. Brown or wild rice. Meats and other proteins Seafood. Poultry without skin. Lean cuts of poultry and beef. Tofu. Nuts. Seeds. Dairy Low-fat or fat-free dairy products such as milk, yogurt, and cheese. The items listed above may not be a complete list of foods and beverages you can eat. Contact a dietitian for more information. What foods should I avoid? Fruits Fruits canned with syrup. Vegetables Canned vegetables. Frozen vegetables with butter or cream sauce. Grains Refined white flour and flour products such as bread, pasta, snack foods, and cereals. Avoid all processed foods. Meats and other proteins Fatty cuts of meat. Poultry with skin. Breaded or fried meats. Processed meat. Avoid saturated fats. Dairy Full-fat yogurt, cheese, or milk. Beverages Sweetened drinks, such as soda or iced tea. The items listed above may not be a complete list of foods and beverages you should avoid. Contact a dietitian for more information. Questions to ask a health care provider ??? Do I need to meet with a embedded software architect? Do I need to meet with a dietitian? What number can I call if I have questions? When are the best times to check my blood glucose? Where to find more information: ??? [place] [employer]: diabetes.org ??? Academy of Nutrition and Dietetics: www.eatright.org ??? National [place] of Diabetes and Digestive and Kidney Diseases: www.niddk.nih.gov ??? Association of Diabetes Care and Education Specialists: www.diabeteseducator.org Summary ??? It is important to have healthy eating habits because your blood sugar (glucose) levels are greatly affected by what you eat and drink. ??? A healthy meal plan will help you control your blood glucose and maintain a healthy lifestyle. ??? Your health care provider may recommend that you work with a dietitian to make a meal plan that is best for you. ??? Keep in mind that carbohydrates (carbs) and alcohol have immediate effects on your blood glucose levels. It is important to count carbs and to use alcohol carefully. This information is not intended to replace advice given to you by your health care provider. Make sure you discuss any questions you have with your health care provider. Document Revised: 07/24/2020 Document Reviewed: 07/24/2020 [email or web address] Patient Education ? 2020 [employer]. Infectious Disease Sepsis, Diagnosis, Adult Sepsis is a serious bodily reaction to an infection. The infection that triggers sepsis may be from a bacteria, virus, or fungus. Sepsis can result from an infection in any part of your body. Infections that commonly lead to sepsis include skin, lung, and urinary tract infections. Sepsis is a medical emergency that must be treated right away in a hospital. In severe cases, it can lead to septic shock. Septic shock can weaken your heart and cause your blood pressure to drop. This can cause your central nervous system and your body's organs to stop working. What are the causes? This condition is caused by a severe reaction to infections from bacteria, viruses, or fungus. The germs that most often lead to sepsis include: ??? Escherichia coli (E. coli) bacteria. ??? Staphylococcus aureus (staph) bacteria. ??? Some types of Streptococcus bacteria. The most common infections affect these organs: ??? The lung (pneumonia). ??? The kidneys or bladder (urinary tract infection). ??? The skin (cellulitis). ??? The bowel, gallbladder, or pancreas. What increases the risk? You are more likely to develop this condition if: ??? Your body's disease-fighting system (immune system) is weakened. ??? You are age 65 or older. ??? You are male. ??? You had surgery or you have been hospitalized. ??? You have these devices inserted into your body: ? A small, thin tube (catheter). ? IV line. ? Breathing tube. ? Drainage tube. ??? You are not getting enough nutrients from food (malnourished). ??? You have a chronic disease, such as cancer, lung disease, kidney disease, or diabetes. What are the signs or symptoms? Symptoms of this condition may include: ??? Fever. ??? Chills or feeling very cold. ??? Confusion or anxiety. ??? Fatigue. ??? Muscle aches. ??? Shortness of breath or rapid breathing (hyperventilation). ??? Nausea and vomiting. ??? Urinating much less than usual. ??? Fast heart rate. ??? Changes in skin color. Your skin may look blotchy, pale, or blue. ??? Cool, clammy, or sweaty skin. ??? Skin rash. Other symptoms depend on the source of your infection. How is this diagnosed? This condition is diagnosed based on your symptoms, medical history, and physical exam. Other tests may also be done to find out the cause of the infection and how severe the sepsis is. Tests may include: ??? Blood tests. ??? Urine tests. ??? Swabs from other areas of your body that may have an infection. These samples may be tested (cultured) to find out what type of bacteria is causing the infection. ??? Chest X-ray to check for pneumonia. Other imaging tests, such as a CT scan, may also be done. ??? Lumbar puncture. This removes a small amount of the fluid that surrounds your brain and spinal cord. The fluid is then examined for infection. How is this treated? This condition must be treated in a hospital. Based on the cause of your infection, you may be given an antibiotic, antiviral, or antifungal medicine. You may also receive: ??? Fluids through an IV. ??? Oxygen and breathing assistance. ??? Medicines to increase your blood pressure. ??? Kidney dialysis. This process cleans your blood if your kidneys have failed. ??? Surgery to remove infected tissue. ??? Blood transfusion if needed. ??? Medicine to prevent blood clots. ??? Nutrients to correct imbalances in basic body function (metabolism). You may: ? Receive important salts and minerals (electrolytes) through an IV. ? Have your blood sugar level adjusted. Follow these instructions at home: Medicines ??? Take uwqs-izr-gjojwao and prescription medicines only as told by your health care provider. ??? If you were prescribed an antibiotic, antiviral, or antifungal medicine, take it as told by your health care provider. Do not stop taking the medicine even if you start to feel better. General instructions ??? If you have a catheter or other indwelling device, ask to have it removed as soon as possible. ??? Keep all follow-up visits. This is important. Contact a health care provider if: ??? You do not feel like you are getting better or regaining strength. ??? You are having trouble coping with your recovery. ??? You frequently feel tired. ??? You feel worse or do not seem to get better after surgery. ??? You think you may have an infection after surgery. Get help right away if: ??? You have any symptoms of sepsis. ??? You have difficulty breathing. ??? You have a rapid or skipping heartbeat. ??? You become confused or disoriented. ??? You have a high fever. ??? Your skin becomes blotchy, pale, or blue. ??? You have an infection that is getting worse or not getting better. These symptoms may represent a serious problem that is an emergency. Do not wait to see if the symptoms will go away. Get medical help right away. Call your local emergency services (911 in the [place] Do not drive yourself to the hospital. Summary ??? Sepsis is a medical emergency that requires immediate treatment in a hospital. ??? This condition is caused by a severe reaction to infections from bacteria, viruses, or fungus. ??? Based on the cause of your infection, you may be given an antibiotic, antiviral, or antifungal medicine. ??? Treatment may also include IV fluids, breathing assistance, and kidney dialysis. This information is not intended to replace advice given to you by your health care provider. Make sure you discuss any questions you have with your health care provider. Document Revised: 07/01/2021 Document Reviewed: 07/01/2021 [email or web address] Patient Education ? 2021 [employer]. Orthopedics Acute Pain, Adult Acute pain is a type of sudden pain that may last for just a few days or for as long as six months. It is often related to an illness, injury, or medical procedure. Acute pain may be mild, moderate, or severe. Pain can make it hard for you to do your normal, daily activities. It can cause anxiety and lead to other problems if it is left untreated. Treatment depends on the cause and severity of your pain. Acute pain usually goes away once your injury has healed or you are no longer ill. Follow these instructions at home: Medicines ??? Take nohq-qng-smfyffa and prescription medicines only as told by your health care provider. ??? Take the lowest dose of medicine for the shortest amount of time needed to relieve the pain. ??? If you are taking prescription pain medicine: ? Do not stop taking the medicine suddenly. Talk to your health care provider about how and when to discontinue prescription medicine. ? Do not take more pills than told by your health care provider even if your pain is severe. ? Do not take other ivrh-lbw-gqtivvt pain medicines in addition to prescription pain medicine unless told by your health care provider. ? Ask your health care provider if the medicine requires you to avoid driving or using heavy machinery. ? Ask your health care provider if the medicine can cause constipation. You may need to take these actions to prevent or treat constipation: ? Drink enough fluid to keep your urine pale yellow. ? Eat foods that are high in fiber, such as beans, whole grains, and fresh fruits and vegetables. ? Take fkkb-zgz-nwgtzwd or prescription medicines. ? Limit foods that are high in fat and processed sugars, such as fried or sweet foods. Managing pain, stiffness, and swelling If directed, put ice on the affected area. To do this: ??? Put ice in a plastic bag. ??? Place a towel between your skin and the bag. ??? Leave the ice on for 20 minutes, 2?3 times a day. If directed, apply heat to the affected area as often as told by your health care provider. Use the heat source that your health care provider recommends, such as a moist heat pack or a heating pad. ??? Place a towel between your skin and the heat source. ??? Leave the heat on for 20?30 minutes. ??? Remove the heat if your skin turns bright red. This is especially important if you are unable to feel pain, heat, or cold. You may have a greater risk of getting burned. Activity ??? Rest as told by your health care provider. ??? Return to your normal activities as told by your health care provider. Ask your health care provider what activities are safe for you. General instructions ??? Check your pain level as told by your health care provider. ??? Ask your health care provider if other strategies such as distraction, relaxation, or physical therapies can help your pain. ??? Keep all follow-up visits as told by your health care provider. This is important. Contact a health care provider if: ??? Your pain is not controlled by medicine. ??? Your pain does not improve or gets worse. ??? You have side effects from pain medicines, such as vomiting or confusion. Get help right away if you: ??? Have severe pain. ??? Have trouble breathing. ??? Lose consciousness. ??? Have chest pain or pressure that lasts for more than a few minutes, or if you have other symptoms along with chest pain, including if you: ? Have pain or discomfort in one or both arms, your back, neck, jaw, or stomach. ? Have shortness of breath. ? Break out in a cold sweat. ? Feel nauseous. ? Become light-headed. These symptoms may represent a serious problem that is an emergency. Do not wait to see if the symptoms will go away. Get medical help right away. Call your local emergency services (911 in the [place] Do not drive yourself to the hospital. Summary ??? Acute pain may be mild, moderate, or severe. It usually goes away once your injury has healed or you are no longer ill. ??? Take hxop-loc-zokavel and prescription medicines only as told by your health care provider. ??? Ask your health care provider if the medicine prescribed to you can cause constipation. ??? Contact a health care provider if your pain is not controlled by medicine. This information is not intended to replace advice given to you by your health care provider. Make sure you discuss any questions you have with your health care provider. Document Revised: 01/02/2020 Document Reviewed: 01/02/2020 [employer] Patient Education ? 2021 [employer]. Pharmacology Antibiotic Medicine, Adult Antibiotic medicines treat infections caused by a type of germ called bacteria. These medicines work by killing the bacteria that make you sick. You should take antibiotic medicines safely and only when needed. When do I need to take antibiotics? You may need antibiotics for: ??? A urinary tract infection (UTI). ??? Strep throat. ??? A sinus infection caused by bacteria. ??? Meningitis. This affects the spinal cord and brain. ??? A bad lung infection. You may start your medicines while your doctor waits for your results on some tests. When your results come back, your doctor may change or stop your medicine based on your test results. When are antibiotics not needed? You do not need these medicines for most common illnesses, such as: ??? A cold. ??? The flu. ??? A sore throat. ??? Mucus being an odd color. ??? Bronchitis. Sometimes, antibiotics are not needed for an infection caused by bacteria. Do not ask for these medicines, or take them, when they are not needed. How long should I take my antibiotic? You need to take all your medicine. Take your antibiotic medicine as told by your doctor. Do not stop taking the antibiotic even if you start to feel better. If you stop taking it too soon: ??? You may feel sick again. ??? Your infection may get harder to treat. Antibiotics need different amounts of time to work. Some treatments last just a few days. Some last about a week to 10 days. Sometimes, you may need to take antibiotics for a few weeks to fully treat your infection. What if I miss a dose? Try not to miss a dose. If you miss a dose, call your doctor or pharmacist. Sometimes, it is okay to take the missed dose as soon as you can. Do not take an extra dose. What are the risks of taking antibiotics? Antibiotics can cause: ??? Allergic attacks. ??? A feeling like you may vomit (nausea). ??? Yeast infections. ??? Liver problems. These medicines can cause an infection called C. diff. This causes watery poop (diarrhea). This happens when antibiotics kill good germs in your gut. This lets C. diff grow. Tell your doctor right away if: ??? You get watery poop while taking your antibiotic. ??? You get watery poop after you stop your antibiotic. C. diff can happen weeks after you stop your medicine. You also have a risk of getting an infection in the future that antibiotics cannot treat (antibiotic-resistant infection). These infections can get very bad. Sometimes, they can be life-threatening. Do antibiotics affect control? control pills may not work. If you take control pills: ??? Keep taking them as normal. ??? Use a second form of control, such as a condom. Do this for as long as told by your doctor. What else should I know about taking antibiotics? You need to take these medicines exactly as told. Make sure to do these things: ??? Take the right amount of medicine at the same time each day. ??? Ask your doctor: ? How long to wait between doses. ? If you should take your medicine with food. ? If you should stay away from some foods, drinks, or medicines. ? What side effects you should watch for. ??? Use only the medicines that your doctor said to use. Do not use medicines that were given to someone else. ??? Drink a large glass of water when you take your medicine. Drink enough fluid to keep your pee (urine) pale yellow. ??? Ask your pharmacist for a tool to measure your medicine. This may be a syringe, cup, or spoon. ??? Throw out any extra medicine. Follow these instructions at home: ??? Take cncp-dlp-wkfoeuq and prescription medicines as told by your doctor. ??? Return to your normal activities as told by your doctor. Ask your doctor what activities are safe for you. ??? Keep all follow-up visits as told by your doctor. This is important. Contact a doctor if: ??? You feel worse. ??? You have one of these after you start your medicine: ? New joint pain. ? New muscle aches. ??? You have side effects from your medicine, such as: ? Stomach pain. ? Watery poop. ? Feeling like you may vomit. ? White patches in your mouth or throat. Get help right away if: ??? You have a very bad allergic attack. If this happens, stop taking your medicine right away. You may get: ? Hives. These are raised, itchy, red bumps on your skin. ? Skin rash. ? Trouble breathing. ? Breathing that has whistling sounds. ? Swelling on your body. ? A dizzy feeling. ? Vomiting. ??? You have symptoms of liver problems. You may have: ? Dark pee, or pee that is the color of blood. ? Yellow skin. ? Easy bruising. ? Easy bleeding. ??? You have very bad watery poop. ??? You have cramps in your belly. ??? You have a very bad headache. These symptoms may be an emergency. Do not wait to see if the symptoms will go away. Get medical help right away. Call your local emergency services (911 in the [place] Do not drive yourself to the hospital. Summary ??? Antibiotics are used to treat infections caused by bacteria. ??? Take these medicines safely and only when needed. ??? Your doctor may change or stop your medicine based on your test results. ??? Take all your medicine even when you feel better. This information is not intended to replace advice given to you by your health care provider. Make sure you discuss any questions you have with your health care provider. Document Revised: 06/05/2020 Document Reviewed: 06/05/2020 [email or web address] Patient Education ? 2021 [email or web address] Inc. documented in this encounter Plan of Treatment Not on file documented as of this encounter Visit Diagnoses Not on filedocumented in this encounter
--- OUTSIDE RECORDS SUMMARY | 2025-02-21 13:34 | XMS_ITS | Encounter Summary ---
Author Organization [employer] Address [address] [place] [address] Care Team Providers Care Drag Sawyer Name Role Phone Unavailable Primary Care Provider Unavailabl e Encounter Details Date Type Department Care Team (Late st Contact Info) Description 05/09/2022 Transcribed Document [facility] [place] Family Medicine [address] [place] [address] ProviderFlorentino MD [address] [place] [address] Social History Tobacco Use Types Packs/Day Years Used Date Smoking Tobacco: Never Assessed Comments Unknown Sex and Gender Information Value Date Recorded Sex Assigned at Not on file Legal Sex Female 1:44 PM CDT Gender Identity Not on file Sexual Orientation Not on file documented as of this encounter Miscellaneous Notes * Cerner Conversion Note - Florentino Lynne MD - 05/09/2022 1:08 PM CDT Patient: ALYSSA AZUL Age: 62 Years Sex: Female : 1960 Subjective Date of service May 09, 2022 The patient reports no acute events overnight. Nursing staff report that she remains afebrile with stable vital signs and saturating appropriately on room air with BiPAP therapy nocturnally. Case management is assisting with next site of care. Review of systems Constitutional: No fever, no chills Respiratory: No acute dyspnea, no cough Cardiovascular: No chest pain, no palpitation, no increasing pedal edema GI: No nausea, vomiting or diarrhea Neuro: No confusion, no acute motor or sensory changes Vital Signs T: 36.8 ??C TMIN: 36.5 ??C TMAX: 36.8 ??C HR: 102(Monitored) RR: 16 BP: 139/82 SpO2: 98% Oxygen Settings (Last) Oxygen Therapy Mode: Room air (05/09/22 11:03:00) Intake & Output Totals Last 24 Hours (7a-7a) Input Total: 200.5 mL Output Total: 1600 mL Balance: -1399.5 mL Physical Exam General: Alert and oriented, [...] appropriate mood and affect. Assessment/Plan Sepsis, POA Resolved Secondary to UTI Transition to oral fluid resuscitation Blood cultures no growth to date IV cefepime therapy completed Oral Zyvox therapy completed Micafungin therapy completed Infectious disease consult noted Recurrent urinary tract infection Urine cultures no growth to date Recently admitted with septic shock due to Pseudomonas and E. coli UTI Appreciate ID recommendations Cefepime, Zyvox and IV micafungin therapy completed JAVIER Improved Encouraging oral hydration Avoid nephrotoxic medications. Trending electrolytes and creatinine Left gluteal wound POA Chronic paraplegia Antibiotic therapy Daily dressing Wound care consult noted Diabetes mellitus Routine blood sugar monitoring Sliding scale insulin Carbohydrate controlled diet Anemia Iron deficiency noted Iron replacement therapy Paraplegia Chronic pain Physical therapy evaluations The patient is hospitalized day 10 with above diagnoses. We appreciate infectious disease consult and recommendations. Case management is assisting with next site of care which is expected to be SNF for ongoing wound care. Barriers to discharge currently include identifying facility to transition care. Expected date of discharge once facility to transition care is identified. VTE Prophylaxis - Medical Heparin 5,000 Units, SubCutaneous, Inj, Q8HInt, Routine, Start 04/29/22 2:00:00 EDT, 04/29/22 1:32:00 EDT (KASI RAVI) Sequential Compression Device Start: 04/29/22 1:02:00 EDT, Bilateral, Length: Knee High, While patient is in bed, Continuous Order (KASI RAVI) Medications acetaminophen, 650 mg= 2 Tab, Oral, Q6H, PRN Betadine 10% topical solution, 1 Application, Topical, BID Betadine 10% topical solution, 1 Application, Topical, BID Betadine 10% topical solution, 1 Application, Topical, BID cloNIDine, 0.1 mg= 1 Tab, Oral, Q4H, [...] Scale A:, SubCutaneous, AC and at Bedtime Roxton 5 mg-325 mg oral tablet, 1 Tab, Oral, Q6H, PRN Pepcid, 20 mg= 1 Tab, Oral, At Bedtime PRAVAstatin, 40 mg= 2 Tab, Oral, At Bedtime Vitamin C, 500 mg= 1 Tab, Oral, BID Lab Results Test Name Test Result Date/Time Device Comment 1 Notified Nurse RBV 05/09/2022 10:38 EDT Device Comment 1 Notified Nurse RBV 05/09/2022 06:17 EDT Device Comment 1 Notified Nurse RBV 05/08/2022 19:59 EDT Device Comment 1 Notified Nurse RBV 05/08/2022 17:02 EDT Glucose POC2 191 mg/dL (High) 05/09/2022 10:38 EDT Glucose POC2 198 mg/dL (High) 05/09/2022 06:17 EDT Glucose POC2 191 mg/dL (High) 05/08/2022 19:59 EDT Glucose POC2 193 mg/dL (High) 05/08/2022 17:02 EDT documented in this encounter Plan of Treatment Not on file documented as of this encounter Visit Diagnoses Not on filedocumented in this encounter
--- OUTSIDE RECORDS SUMMARY | 2025-02-21 13:34 | XMS_ITS | Encounter Summary ---
Author Organization [employer] [facility] Address [address] [place] [address] Care Team Providers Care Fan Blade Truer Name Role Phone Unavailable Primary Care Provider Unavailabl e Encounter Details Date Type Department Care Team (Late st Contact Info) Description 05/09/2022 Transcribed Document [facility] [place] Family Medicine [facility] [place] [address] ProviderFlorentino MD [address] [place] [address] Social History Tobacco Use Types Packs/Day Years Used Date Smoking Tobacco: Never Assessed Comments Unknown Sex and Gender Information Value Date Recorded Sex Assigned at Not on file Legal Sex Female 1:44 PM CDT Gender Identity Not on file Sexual Orientation Not on file documented as of this encounter Miscellaneous Notes * Cerner Conversion Note - Florentino Lynne MD - 05/09/2022 3:02 PM CDT On Going Discharge Planning Entered On: 05/09/2022 15:02 EDT Performed On: 05/09/2022 15:02 EDT by ERIK GALARZA, President + Publisher-Sales Marketing Coordinator Care Management Progress Note Discharge Arrangements : Patient Post-Acute Information Patient Name: ALYSSA AZUL Gender: Female : [birth year] Age: 62 Years No Post-Acute Placement(s) Listed No Post-Acute Service(s) Listed No [place] Referral(s) Listed Discharge Options Discussed with Patient : Acute rehabilitation, Discharge transportation, DME, Home Health, Short term rehabilitation Barriers to Discharge Identified : Clinical Condition of Patient Barriers to Discharge Unresolved : Clinical Condition of Patient Patient Discharge Goal : Home health care Is the Patient Meeting Medical Necessity : No Did you Document Avoidable Days? : Yes Did you Attend Multidisciplinary Rounds? : Yes ERIK GALARZA, President + Publisher-Sales Marketing Coordinator - 05/09/2022 15:02 EDT Narrative Progress Note Narrative Progress Note : Karely looking. DON is not in and will look again on Thursday. [facility], [facility], and [facility] are also following. If no offers on Thursday patient will need to go home. Cm arranged for [facility] to transfer home in case no facilities are found. CM will continue to follow. Historical Progress Note : Patient is completing abx today. Patient stated that she can't go home as her family is gone all weekend and she has no one to help take care of her. Patient can't have HH due to no HH agency accepting her insurance. Patient and CM called patients insurance to try to find services for patient today. [facility] looking [facility] patient to see if they can offer patient a bed. Cm called [facility] and they cannot accept patient due to not have skilled benefits. CM called [facility] but had to leave a message. CM faxed patient to [facility]. [facility] is going to re-look at patient. CM faxed patient out to more SNFS and acute rehabs. Cm will continue to follow. ERIK GALARZA President + Publisher-Sales Marketing Coordinator - 05/08/22 13:58:29 Patient is completing abx today. Patient stated that she can't go home as her family is gone all weekend and she has no one to help take care of her. Patient can't have HH due to no HH agency accepting her insurance. Patient and CM called patients insurance to try to find services for patient today. [facility] is looking [facility] patient to see if they can offer patient a bed. Cm called [facility] and they cannot accept patient due to not have skilled benefits. CM called [facility] but had to leave a message. CM faxed patient to [facility]. [facility] is going to re-look at patient. Cm will continue to follow. ERIK GALARZA, President + Publisher-Sales Marketing Coordinator - 05/08/22 13:50:52 CM spoke with patient about going home tomorrow or Thursday after IV abx completion. Patient stated that she wants to go to [facility] or [facility]. She stated that she needs rehab but just doesn't want to go to any rehab and definitely not [facility]. Cm explained that as of now she does not have any bed offers and if an offer came it would be limited. CM explained to patient that she needs to prepare to go home but she will keep looking for a snf offer. Cm will continue to follow. ERIK GALARZA, President + Publisher-Sales Marketing Coordinator - 05/07/22 09:50:44 Patient will be on iv abx until 05/08. She will then need to discharge home with family. Can't receive HH due to insurance and location. Will likely need outpatient wound care follow up. Need resources from a place from mom. Maybe a trapeze bar. Cm will continue to follow. ERIK GALARZA, President + Publisher-Sales Marketing Coordinator - 05/06/22 14:19:48 RRS HIGH, LOS 3, ELOS 3 Cefepime and micafungin iv until 9.8-Per [employer], rxs at at home are covered at 100%--PICC was refused by pt so will get groshong but can't be placed until 9.6. Pt is seeking [facility] and per liaison, [facility] administration has declined referral. Referrals were made 9.1 and per [facility], the denial was based on pt's insurance. Preferred snf[facility] both declined. One interested facility[facility] was updated. Per [facility], pt's insurance is [employer] [place] and there are no accepting HH agencies in pt's home zipcode. Dtr states pt's primary is [place] Medicaid but [facility] shows as 2nd and D-I-L cannot produce paperwork that shows [place] Medicaid as primary. DCP may include completion of iv abx in hospital as she will not have HH to monitor iv abx and groshong and pt does not have transportation to outpt infusion center, stating he son and D-I-L work. TRISTAN TAYLOR, RN-Gm/Svp Global Publisher Business - 05/02/22 15:55:36 RRS HIGH, LOS 2, ELOS 3 Discharged 8.27 and readmitted 8.28 Sepsis-uti Cefepime and micafungin iv until 9.8 Per [facility], pt's insurance is aetna Medicaid with 2nd as [place] Medicaid. Pt agreed to snf-[facility] referral with pref for [facility]. Per collejennifer, pt is declined. Pt agreed to [facility] snfs and 2nd to [place]. If pt discharges to home because there are no acceting snfs, only insurance accepted [place] NOT [place] Medicaid. Will need precert for snf and potential transportation. TRISTAN TAYLOR, RN-Gm/Svp [employer] - 05/01/22 15:43:47 Patient is now on IV abx, Receiving wound care. Patient stated that she wants to go home. Family informed nursing that patient needs rehab. Nursing told family that they need to discuss this with patient and patient continues to state she wants to go home. Cm called [facility] . They can only accept patient if she truly does have straight Medicaid and not Aetna. CM will confirm insurance on 05/01/2022. CM will continue to follow. ERIK GALARZA, President + Publisher-Sales Marketing Coordinator - 04/30/22 14:16:00 ERIK GALARZA, President + Publisher-Sales Marketing Coordinator - 05/09/2022 15:02 EDT documented in this encounter Plan of Treatment Not on file documented as of this encounter Visit Diagnoses Not on filedocumented in this encounter
--- OUTSIDE RECORDS SUMMARY | 2025-02-21 13:34 | XMS_ITS | Encounter Summary ---
Author Organization [employer] Address [address] [place] [address] Care Team Providers Care Test Lab Technician Name Role Phone Unavailable Primary Care Provider Unavailabl e Encounter Details Date Type Department Care Team (Late st Contact Info) Description 04/28/2022 Transcribed Document [facility] [place] Family Medicine [address] [place] [address] ProviderFlorentino MD [address] [place], [place] [id number] Social History Tobacco Use Types Packs/Day Years Used Date Smoking Tobacco: Never Assessed Comments Unknown Sex and Gender Information Value Date Recorded Sex Assigned at Not on file Legal Sex Female 1:44 PM CDT Gender Identity Not on file Sexual Orientation Not on file documented as of this encounter Miscellaneous Notes * Cerner Conversion Note - Historical ProviderMD - 04/28/2022 9:43 PM CDT Broset Violence Assessment Entered On: 2022 0:14 EDT Performed On: 2022 0:11 EDT by Gregorio Harrell RN-PATIENT CARE BEDSIDE NON-EXEMPT Broset Violence Assessment Broset Violence Checklist of Symptoms : None Broset Violence Symptoms Subtotal : 0 Broset Violence Symptoms Indicator : Low risk (0) Broset Interventions : Aldie precautions for safety used Gregorio Harrell RN-PATIENT CARE BEDSIDE NON-EXEMPT - 2022 0:11 EDT documented in this encounter Plan of Treatment Not on file documented as of this encounter Visit Diagnoses Not on filedocumented in this encounter
--- OUTSIDE RECORDS SUMMARY | 2025-02-21 13:34 | XMS_ITS | Encounter Summary ---
Author Organization [employer] Address [address] [place] [id number] Care Team Providers Care Hall Supervisor Name Role Phone Unavailable Primary Care Provider Unavailabl e Encounter Details Date Type Department Care Team (Late st Contact Info) Description 05/09/2022 Transcribed Document [facility] [place] Family Medicine [address] [place] [address] ProviderFlorentino MD [address] [place] [address] Social History Tobacco Use Types Packs/Day Years Used Date Smoking Tobacco: Never Assessed Comments Unknown Sex and Gender Information Value Date Recorded Sex Assigned at Not on file Legal Sex Female 1:44 PM CDT Gender Identity Not on file Sexual Orientation Not on file documented as of this encounter Miscellaneous Notes * Cerner Conversion Note - Florentino ProviderMD - 05/09/2022 5:00 AM CDT Chart Check - Review Order Profile Entered On: 05/09/2022 7:03 EDT Performed On: 05/09/2022 5:00 EDT by Casey Palacios Non Emp RN Chart Check Powerplans Initiated/Discontinued as Appropriate : Yes All Active Orders Reviewed : Yes Casey Palacios Non Emp RN - 05/09/2022 7:03 EDT documented in this encounter Plan of Treatment Not on file documented as of this encounter Visit Diagnoses Not on filedocumented in this encounter
--- OUTSIDE RECORDS SUMMARY | 2025-02-21 13:34 | XMS_ITS | Encounter Summary ---
Author Organization [facility] [facility] Address [address] [place] [address] Care Team Providers Care Wallpaper Inspector And Shipper Name Role Phone Unavailable Primary Care Provider Unavailabl e Encounter Details Date Type Department Care Team (Late st Contact Info) Description 03/02/2022 Transcribed Document [facility] Family Medicine [address] [place] [address] ProviderFlorentino MD [address] [place] [address] Social History Tobacco Use Types Packs/Day Years Used Date Smoking Tobacco: Never Assessed Comments Unknown Sex and Gender Information Value Date Recorded Sex Assigned at Not on file Legal Sex Female 1:44 PM CDT Gender Identity Not on file Sexual Orientation Not on file documented as of this encounter Miscellaneous Notes * Cerner Conversion Note - Florentino ProviderMD - 03/02/2022 11:28 AM CDT UM Authorization Entered On: 03/02/2022 11:40 EDT Performed On: 03/02/2022 11:28 EDT by JOSEPH GUTIERREZ RN-UTILIZATION MANAGEMENT REVIEW NON-EXEMPT Primary Insurance Authorization Authorization and Policy Numbers : Insurance 1 Health Plan: [facility] Policy Number: [id number] Authorization Number: Insurance Primary Name : [facility] Policy Number: [id number] Authorization Number: Authorization Status-Primary : Awaiting callback Reference Number-Primary : [id number] Authorized Service Begin Date-Primary : 03/01/2022 EDT Authorization Comments-Primary : auth # per star notes, faxed clinicals via [employer] 03/01 Historical Authorization Comments-Primary : No Authorization Comments Found JOSEPH GUTIERREZ RN-UTILIZATION MANAGEMENT REVIEW NON-EXEMPT - 03/02/2022 11:28 EDT documented in this encounter Plan of Treatment Not on file documented as of this encounter Visit Diagnoses Not on filedocumented in this encounter
--- OUTSIDE RECORDS SUMMARY | 2025-02-21 13:34 | XMS_ITS | Encounter Summary ---
Author Organization [employer] Address [address] [place] [id number] Care Team Providers Care Loss Control Consultant Name Role Phone Unavailable Primary Care Provider Unavailabl e Encounter Details Date Type Department Care Team (Late st Contact Info) Description 03/02/2022 Transcribed Document [facility] Family Medicine [address] [place] [address] ProviderFlorentino MD [address] [place] [address] Social History Tobacco Use Types Packs/Day Years Used Date Smoking Tobacco: Never Assessed Comments Unknown Sex and Gender Information Value Date Recorded Sex Assigned at Not on file Legal Sex Female 1:44 PM CDT Gender Identity Not on file Sexual Orientation Not on file documented as of this encounter Miscellaneous Notes * Cerner Conversion Note - Florentino ProviderMD - 03/02/2022 4:21 AM CDT Chart Check - Review Order Profile Entered On: 03/02/2022 4:21 EDT Performed On: 03/02/2022 4:21 EDT by TRINIDAD LANDIS RN Chart Check Powerplans Initiated/Discontinued as Appropriate : Yes All Active Orders Reviewed : Yes TRINIDAD LANDIS RN - 03/02/2022 4:21 EDT Electronically signed by Sumaya [facility] Conversion Commercial Real Estate Sales Manager Cerner at 12/21/2022 5:10 PM CDT documented in this encounter Plan of Treatment Not on file documented as of this encounter Visit Diagnoses Not on filedocumented in this encounter
--- OUTSIDE RECORDS SUMMARY | 2025-02-21 13:34 | XMS_ITS | Encounter Summary ---
Author Organization [employer] Address [address] [place] [address] Care Team Providers Care Patternmaker Apprentice Metal Name Role Phone Unavailable Primary Care Provider Unavailabl e Encounter Details Date Type Department Care Team (Late st Contact Info) Description 05/09/2022 Transcribed Document [facility] Family Medicine [address] [place] [address] ProviderFlorentino MD [facility] [place] [address] Social History Tobacco Use Types Packs/Day Years Used Date Smoking Tobacco: Never Assessed Comments Unknown Sex and Gender Information Value Date Recorded Sex Assigned at Not on file Legal Sex Female 1:44 PM CDT Gender Identity Not on file Sexual Orientation Not on file documented as of this encounter Miscellaneous Notes * Cerner Conversion Note - Florentino Lynne MD - 05/09/2022 8:36 PM CDT Patient: ALYSSA AZUL Age: 62 years Sex: Female : 1960 Associated Diagnoses: None Author: HIGINIO AREVALO MD-INF Antibiotics: Off CC fevers Subjective: Patient stable without fevers now off antibiotics looking for discharge options she had prior history of recurrent aspiration and respiratory distress and recurrent UTIs Objective: Vitals Signs (last 24 hrs) Last Charted Minimum Maximum Temp 99.1 (MAY 01 19:56) 97.8 (MAY 01 02:11) 99.1 (MAY 01 19:56) Mon HR 89 (MAY 01 20:53) 77 (MAY 01 02:11) 94 (MAY 01 09:13) Resp Rate 16 (MAY 01 20:53) 16 (MAY 01 17:25) 20 (MAY 01 05:05) SBP 140 (MAY 01 19:56) 117 (MAY 01 02:11) H 160 (MAY 01 17:25) DBP 78 (MAY 01 19:56) 68 (MAY 01 02:11) 88 (MAY 01 17:25) MAP 101 (MAY 01 19:56) 81 (MAY 01 02:11) 128 (MAY 01 17:25) SpO2 99 (MAY 01 22:00) L 93 (MAY 01 08:03) 100 (MAY 01 05:05) PE: General: alert, oriented x3, bedbound chronically ill-appearing HEENT: sclera white without conjunctival injection. No erythema, exudate or ulceration. No thrush present. Neck: Supple without nuchal rigidity Lungs: few scattered rhonchi Cardiovascular: normal S1/S2; RRR, no m/r/g. : + ponce Abdomen: soft, non-tender, non-distended, positive bowel sounds throughout. Lower extremity: No cyanosis, clubbing with lower extremity edema Neuro: paraplegia : Left hip and sacral wound with dressing in place LABS: Labs (Last four charted values) WBC L 4.4 (MAY 01) 4.6 (APR 30) 7.2 (APR 28) HB L 7.6 (MAY 01) L 7.9 (APR 30) L 9.2 (APR 28) HCT L 24.6 (MAY 01) L 25.4 (APR 30) L 29.1 (APR 28) Plt 357 (MAY 01) 354 (APR 30) 265 (APR 29) 318 (APR 28) Na 140 (MAY 01) 140 (APR 30) 137 (APR 28) K 4.5 (MAY 01) 4.4 (APR 30) 4.8 (APR 28) Cl H 116 (MAY 01) H 116 (APR 30) 107 (APR 28) CO2 21 (MAY 01) L 15 (APR 30) 22 (APR 28) BUN 22 (MAY 01) 21 (APR 30) H 41 (APR 28) Cr 1.00 (MAY 01) H 1.07 (APR 30) H 1.92 (APR 28) Glu R H 158 (MAY 01) H 137 (APR 30) H 179 (APR 28) Ca 8.6 (MAY 01) L 8.2 (APR 30) 8.9 (APR 28) Lactic 0.7 (APR 29) C 5.2 (APR 28) PT 9.9 (APR 28) INR 0.9 (APR 28) AST 18 (APR 28) ALT 26 (APR 28) ALK P 73 (APR 28) T Bili 0.8 (APR 28) PTN 7.7 (APR 28) ALB L 2.7 (APR 28) MICRO: Repeat urine culture mixed kylie IMAGING: No Radiology Results Found I IMPRESSION: -Recurrent UTI evaluate for acute UTI with pyuria -Recent mission for septic shock with Pseudomonas and E. coli UTI -Prior large left gluteal soft tissue infection, ulceration, to level of soft tissue: -Lactic acidosis improved - Acute kidney failure from dehydration - Anemia of chronic disease - Chronic paraplegia - Obesity - DM2 Assessment: 62-year-old chronically ill long hospitalization with ICU care earlier this summer with left gluteal abscess, aspiration pneumonia status post codes multiple episodes of intubation prolonged antibiotics with some improvement transferred out to facility now presents with hyper septic shock unclear source but has some mild right hydronephrosis and hydroureter Also with no other admission of septic shock earlier this month with Pseudomonas and E. coli UTI with acute kidney injury requiring dialysis mechanical ventilation slowly improved on broad-spectrum antibiotics completed meropenem over 3 weeks. Severe sepsis from urinary source and chronic left hip wound infection now improved has been stable on the floor with wound care and IV antibiotics Now readmitted with hypotension and lactic acidosis. Consistent with dehydration currently without fever normal white blood cell count lactic acid level now normal with fluids still has some pyuria on urine but cultures remain negative received over 3 weeks of meropenem has possibility of resistant organisms no fever stable on current broad antimicrobial therapy now after readmission with ongoing left hip lung and recurrent UTI with sepsis improved now stable off antibiotics we will monitor off antibiotic therapy RECOMMENDATIONS/PLANS: Stable off antibiotics at high risk for recurrent infections with recurrent aspiration pneumonia, hip decubitus wound, and recurrent UTIs Monitor H&H EPrimary team looking for placement documented in this encounter Plan of Treatment Not on file documented as of this encounter Visit Diagnoses Not on filedocumented in this encounter
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
--- OUTSIDE RECORDS SUMMARY | 2025-02-21 13:34 | XMS_ITS | Encounter Summary ---
Author Organization [employer] Address [address] [place] [id number] Care Team Providers Care Drum Stock Clerk Name Role Phone Unavailable Primary Care Provider Unavailabl e Encounter Details Date Type Department Care Team (Late st Contact Info) Description 05/08/2022 Transcribed Document [facility] [place] [facility] [place] [address] ProviderFlorentino MD [address] [place] [address] Social History Tobacco Use Types Packs/Day Years Used Date Smoking Tobacco: Never Assessed Comments Unknown Sex and Gender Information Value Date Recorded Sex Assigned at Not on file Legal Sex Female 1:44 PM CDT Gender Identity Not on file Sexual Orientation Not on file documented as of this encounter Miscellaneous Notes * Cerner Conversion Note - Florentino ProviderMD - 05/08/2022 10:33 AM CDT [facility] Inpatient Documentation Entered On: 05/08/2022 16:01 EDT Performed On: 05/08/2022 10:00 EDT by Edwina Fraire [id number]-[id number]-Cqaxpfryova Therapy WOCN Admission Date : Admit Date 2022 00:[address] : Diagnosis (5) Hypotension, unspecified Type 2 diabetes mellitus without complications Other symptoms and signs involving the genitourinary system Chronic kidney disease, stage 3 unspecified Pressure ulcer of unspecified buttock, unspecified stage Reason for WOCN Visit : Assessment, ongoing Admitting Diagnosis ST : Reason for Admission sepsis, acute uti WOCN Assessment Summary : Wound care team following up on left trochanter. Wound care deboning team leader pulled back dressing and assessed wound measured at 5.0cmx9.0cmx2.0cm and replaced due to patient having mist treatment per PT today. Wound care deboning team leader didnt change dressing. Wound is improving. Wound care team recommends to continue with mist treatment. Wound care deboning team leader will follow up. Edwina Fraire [id number] Therapy - 05/08/2022 15:57 EDT Wound & Pressure Ulcer WOCN Wound Pressure Ulcer Documentation : Pressure Ulcer Assessment: Heel Left on 04/30/2022 10:00 by Edwina Fraire [id number] Therapy Present on Adm to Hosp: Yes Stage: Deep tissue pressure injury Device Related: Yes Dressing Status: Left open to air Wound Bed Description: Intact skin (dark red/purple) Bed Color(s): Red, Purple/Maroon Wound Edge: Attached Surrounding Tissue: Intact Drainage Amount: None Photographed: Yes Cleansing/Irrigation: Wound cleanser Dressing Type/Treatment: Open to air Healing, PU: Initial Comment: offloading boot Pressure Ulcer Assessment: Heel Right on 04/30/2022 10:00 by Edwina Fraire [id number] Therapy Present on Adm to Hosp: Yes Stage: Deep tissue pressure injury Device Related: Unknown Dressing Status: Left open to air Wound Bed Description: Dry, Intact skin (dark red/purple) Bed Color(s): Red, Purple/Maroon Wound Edge: Attached Surrounding Tissue: Intact Drainage Amount: None Photographed: Yes Cleansing/Irrigation: Wound cleanser Dressing Type/Treatment: Open to air Healing, PU: Initial Comment: offloading boot Pressure Ulcer Assessment: Toes, Great Right Medial on 04/30/2022 10:00 by Edwina Fraire GFD-TKX-Ummzivndwey Therapy Present on Adm to Hosp: Yes Stage: Deep tissue pressure injury Device Related: Unknown Dressing Status: Left open to air Wound Bed Description: Intact skin (dark red/purple) Bed Color(s): Red, Purple/Maroon Wound Edge: Attached Surrounding Tissue: Intact Drainage Amount: None Photographed: Yes Cleansing/Irrigation: Wound cleanser Dressing Type/Treatment: Open to air Healing, PU: Initial Pressure Ulcer Assessment: Trochanter Left on 05/08/2022 10:25 by Edwina Fraire YTM-ZCL-Ccyhqycljci Therapy Present on Adm to Hosp: Yes Stage: Stage 4 Device Related: Unknown Dressing Status: Intact Dressing Activity: Assessed Date of Dressing Change: 1:[id number]:[id number]:0:0 Wound Bed Description: Granulation (beefy red), Intact skin (dark red/purple) Bed Color(s): Red, Purple/Maroon Wound Edge: Attached Surrounding Tissue: Intact, [place] (Epithelialized) Length: 5.0 Width: 9.0 Depth: 2.0 Drainage Amount: Minimal Drainage Description: Serosanguineous Drainage Odor: None Photographed: Yes Dressing Type/Treatment: Silicone Foam Healing, PU: Epithelialization, Granulate, Improving WOCN Ostomy Documentation : No ostomy assessments reported. Edwina Fraire LPNOLX-FVW-Xxmdpxnuhny Therapy - 05/08/2022 15:57 EDT Electronically signed by Luís Shell Conversion Customer Complaint Service Supervisor Cerner at 12/21/2022 5:09 PM CDT documented in this encounter Plan of Treatment Not on file documented as of this encounter Visit Diagnoses Not on filedocumented in this encounter
--- OUTSIDE RECORDS SUMMARY | 2025-02-21 13:34 | XMS_ITS | Encounter Summary ---
Author Organization [employer] Address [address] [place] [address] Care Team Providers Care Shell Grader Name Role Phone Unavailable Primary Care Provider Unavailabl e Encounter Details Date Type Department Care Team (Late st Contact Info) Description 03/02/2022 Transcribed Document [facility] Pulm & Critical Care Medicine [address] [facility] [address] [place] [address] Rodrick Durbin MD [address] [facility] [address] [place], [place] [id number] Social History Tobacco Use Types Packs/Day Years Used Date Smoking Tobacco: Never Assessed Comments Unknown Sex and Gender Information Value Date Recorded Sex Assigned at Not on file Legal Sex Female 1:44 PM CDT Gender Identity Not on file Sexual Orientation Not on file documented as of this encounter Miscellaneous Notes * Cerner Conversion Note - Rodrick Durbin MD - 03/02/2022 4:30 PM EDT Patient: IRMA AZUL Age: 61 years Sex: Female : 1960 Associated Diagnoses: None Author: RODRICK DURBIN MD Basic Information Pulmonary/CCM Consultation Note Date of Admission: 03/01/22 Date of Consultation: 03/01/22 Referring Provider: Elaine Ramires MD ([facility]) Reason for Consultation: Ventilator/CCM CC: Unobtainable History of Present Illness: This is a 61-year-old female with underlying medical history including paraplegia, CKD, stage III, T2DM, and HTN. At time of evaluation, patient is intubated, sedated, and on ventilator support and both son and [id number] are present at bedside to give some medical background; therefore, history and hospital course is primarily retrieved from them and through medical chart review. In summary, patient was admitted to [facility] on 02/17/22 with symptoms including dyspnea, fever, chills, and cough with sputum production x1 week. She was admitted for further evaluation and treatment of suspected PNA as well as debridement of DTI to left buttock. Apparently, on 02/21 at approxiamtely 0400, went into cardiac arrest that required [...] higher level care, she was transferred to [facility] on 02/22. Patient was extubated on 02/22 but apparently reintubated later that afternoon due to respiratory distress. Patient had SBT's and was reextubated on 02/25 but unfortunately [...] to obtain Family History Unable to obtain ICU Day: 1 Vent Day: 6 (02/21-; 03/01-presently intubated) 03/02: Patient intubated, hemodynamically stable. RN report sick secretions from the ET tube. Review of Systems Unable to obtain Health Status Current medications: Medications (23) Active Scheduled: (10) acetylcysteine 20% liq 4 mL 1 mL, Nebulized Inhalation, RT_QID albuterol-ipratropium inh 3 mL 3 mL, Nebulized Inhalation, RT_Q6H docusate sod 100 mg/10 mL liq 100 mg 10 mL, Feeding Tube, Daily famotidine 20 mg/2 mL inj 20 mg 2 mL, IV Push, At Bedtime guaiFENesin 100 mg/5 mL liq 15 mL 400 mg 20 mL, Oral, Q6H heparin 5,000 units/1 mL inj 5,000 Units 1 mL, SubCutaneous, Q8H insulin glargine 1 unit/0.01 mL inj 5 Units 0.05 mL, SubCutaneous, At Bedtime insulin regular 1 unit/0.01 mL inj 3mL Scale C, SubCutaneous, Q6H piperacillin-tazobactam + NaCl 0.9% 50 mL 2.25 Gram, IV Piggyback, Q8HInt senna 8.8 mg/5 mL liq 8.8 mg 5 mL, Oral, At Bedtime Continuous: (2) fentaNYL/NaCl 0.9% 2,000 mcg + Premix Diluent NaCl 0.9% TITRATE 100 mL 100 mL, IntraVENous propofol 1,000 mg + Premix Diluent Titrate 100 mL 100 mL, IntraVENous PRN: (11) albuterol-ipratropium inh 3 mL 3 mL, Nebulized Inhalation, RT_Q6H dextrose 50% 25 g/50 mL inj syr [...] 10 mg 0.5 mL, IV Push, Q6H morphine 2 mg/1 ml inj 2 mg 1 mL, IV Push, Q2H ondansetron 4 mg/2 mL inj 4 mg 2 mL, IV Push, Q6H Physical Examination VS/Measurements Vitals Signs (last 24 hrs) Last Charted Minimum Maximum Temp 98.7 (MAR 02 14:00) 98.7 (MAR 02 14:00) H 101.8 (MAR 02 04:00) Mon HR 61 (MAR 02 15:15) 61 (MAR 02 15:15) 96 (MAR 01 17:50) Resp Rate L 5 (MAR 02 15:15) L 0 (MAR 02 10:45) H 52 (MAR 02 11:57) SBP H 147 (MAR 02 15:15) 109 (MAR 01 19:00) H 187 (MAR 02 12:00) DBP 77 (MAR 02 15:15) L 57 (MAR 01 23:00) 87 (MAR 02 12:00) MAP 106 (MAR 02 15:15) 80 (MAR 02 07:00) 125 (MAR 02 12:00) SpO2 99 (MAR 02 15:15) L 91 (MAR 01 18:00) 100 (MAR 01 19:45) Intake & Output Totals Last 24 Hours (7a-7a) Intake (42 Events) Continuous Infusions (724.2617 mL) Medications (197.01 mL) Other Intake (60 mL) Output (6 Events) Valenzuela Catheter (1400 mL) Other Output (800 mL) Input Total: 981.2717 mL Output Total: 2200 mL Balance: -1218.7283 mL General: Arousable, alert, following commands. RASS -1/-2.. Eye: Pupils are equal, round and reactive to light, Extraocular movements are intact, Normal conjunctiva. HENT: Normocephalic. Neck: Supple. Respiratory: Breath sounds are equal, Symmetrical chest wall expansion, Coarse crackles R>L, diminished at bases bilaterally.. Cardiovascular: Normal rate, Regular rhythm, S1, S2, No edema. Gastrointestinal: Soft, Non-tender, Non-distended, Normal bowel sounds. Genitourinary: Support: Urinary catheter ( Indwelling ). Musculoskeletal: Paraplegic at baseline. Neurologic: Alert, Paraplegic at baseline. Psychiatric: Unable to assess.. Review / Management Results review: Labs (Last four charted values) WBC 8.5 (MAR 02) 9.1 (MAR 01) H 10.6 (MAR 01) HB L 7.5 (MAR 02) L 7.6 (MAR 01) L 7.9 (MAR 01) HCT L 24.6 (MAR 02) L 25.0 (MAR 01) L 25.5 (MAR 01) Plt 196 (MAR 02) 203 (MAR 01) 208 (MAR 01) Na 144 (MAR 02) 144 (MAR 01) K 3.6 (MAR 02) 4.1 (MAR 01) Cl H 113 (MAR 02) H 114 (MAR 01) CO2 24 (MAR 02) 22 (MAR 01) BUN H 60 (MAR 02) H 61 (MAR 01) Cr H 2.70 (MAR 02) H 2.50 (MAR 01) Glu R H 157 (MAR 02) H 193 (MAR 01) Ca 8.5 (MAR 02) 8.7 (MAR 01) Lactic 0.6 (MAR 01) PT 11.0 (MAR 02) INR 1.0 (MAR 02) PTT 24.6 (MAR 02) AST 12 (MAR 02) 10 (MAR 01) ALT 14 (MAR 02) 15 (MAR 01) ALK P 42 (MAR 02) 46 (MAR 01) T Bili 0.4 (MAR 02) 0.4 (MAR 01) PTN L 6.2 (MAR 02) L 6.3 (MAR 01) ALB L 2.3 (MAR 02) L 2.4 (MAR 01) . Blood Gases (Current Encounter/Past 24 Hours) pH Art 7.43 03/02/2022 06:54 pCO2 Art 35.8 03/02/2022 06:54 pO2 Art 76.7 LOW 03/02/2022 07:09 HCO3 Art 23.6 03/02/2022 06:54 BE Art -.6 03/02/2022 06:54 sO2 Art 97.3 03/02/2022 06:54 tHb Art 7.9 LOW 03/02/2022 07:09 FHHb 2.6 NA 03/02/2022 06:54 ctO2 10.6 NA 03/02/2022 06:54 FIO2 Art 40 NA 03/02/2022 06:54 Delivery Device Type Art Ventilator 03/02/2022 06:44 Temperature, F Art 98.6 NA 03/02/2022 06:54 Art Blood Gas (ABG) Site Arterial Line NA 03/02/2022 06:54 Acceptable Huang's Test Art Acceptable 03/02/2022 06:44 Ventilator Mode Art Assist Control Ventilation 03/02/2022 06:44 Tidal Volume Set Art 400.0 NA 03/02/2022 06:44 Set Rate Art 16.0 NA 03/02/2022 06:44 Respiratory Rate Art 16.0 NA 03/02/2022 06:44 CPAP/PEEP Art 5.0 NA 03/02/2022 06:44 Comment Art supine NA 03/01/2022 18:54 ABG Num of Draw Attempts 1 NA 03/02/2022 06:44 PaO2/FiO2 calculated 192 NA 03/02/2022 06:54 Radiology Results (Last 48 hours) [id number] -- 02/22/2022 00:01 CT Abdomen Pelvis WO [...] agree with the above final transcribed report. [id number] -- 03/01/2022 17:45 CR Chest 1 Vw [...] and dictated by Dr. Aspen [address].Transcribed by ELENA Maria-CI have personally viewed, interpreted and dictated the examination. Briannaluis fernando read and agree with the above final transcribed report. Impression and Plan Impression: Pulmonary Encounter for ventilator management Acute hypoxic respiratory failure, on MV PNA, viral v. bacterial v. other etiology CT Chest 03/01: Extensive right perihilar and bibasilar consolidations with bilateral pleural effusions and paratracheal reactive adenopathy. Concern for underlying mass not excluded. No known history of chronic lung diseases No PFTs for review Smoker status not known Cardiovascular S/p cardiac arrest HTN urgency No echocardiogram for review ID Sepsis, PNA v. SSTI v. other/mixed etiology Leukocytosis -- improving PNA, etiology not known SSTI on R hip Neuro Unable to assess Intubated, sedated on MV Following commands for me Baseline paraplegia Baseline mentation not observed Renal Ukedc-eg-OQT -- improving Electrolyte abnormalities Hyperchloremia Endocrine T2DM Glycemic control Hematology/Oncology Leukocytosis Plan: -Vent bundle. Wean FiO2, for goal saturation >89%. -Sedation: On Propofol/Fentanyl. Titrate to RASS goal -2. -SBTs/SATs, when able. -Daily ABG while on MV. -DuoNebs Q6h. -Pulmicort nebs BID. -Mucinex 400mg Q6h, due to thick secretions from ET tube. -Chest PT QID. -Add on Mucomyst nebs x3d. -Encourage IS/FVD, when extubated. -Hemodynamics: Stable. -Echocardiogram ordered for AM. -BLE venous duplex ordered for AM. -ID consulted per primary. -Current antibiotics: Zosyn. -PNA PCR panel ordered. -Trend infectious markers. If she becomes afebrile or leukocytosis worsens, will order new blood/urine cultures. -Bowel regimen: Senna/Colace -Nephrology consulted per primary, appreciate input. -IVF: D5+1/2NS at 75cch x1 time. -Monitor hydration status. -Trend SCr/BUN. -Avoid nephrotoxic agents. -Consider RESIDENT HALL DIRECTOR consult for Swallow evaluation, once extubated. -Glycemic control: per primary. -Nutrition: NPO except for meds. -GI prophylaxis: Pepcid. -VTE prophylaxis: Heparin SQ Abnormal CT chest , probable patient will need a bedside bronchoscopy in a.m. 45 minutes critical care time excluding procedures. Discussed with SWEETIE and RN. CODE STATUS: Full Code Disposition: ICU documented in this encounter Plan of Treatment Not on file documented as of this encounter Visit Diagnoses Not on filedocumented in this encounter
--- OUTSIDE RECORDS SUMMARY | 2025-02-21 13:34 | XMS_ITS | Encounter Summary ---
Author Organization [employer] [facility] Address [address] [place] [address] Care Team Providers Care Timber Sizer Name Role Phone Unavailable Primary Care Provider Unavailabl e Encounter Details Date Type Department Care Team (Late st Contact Info) Description 05/12/2022 Transcribed Document [facility] Family Medicine [address] [place] [address] ProviderFlorentino MD [address] [place] [address] Social History Tobacco Use Types Packs/Day Years Used Date Smoking Tobacco: Never Assessed Comments Unknown Sex and Gender Information Value Date Recorded Sex Assigned at Not on file Legal Sex Female 1:44 PM CDT Gender Identity Not on file Sexual Orientation Not on file documented as of this encounter Miscellaneous Notes * Cerner Conversion Note - Historical ProviderMD - 05/12/2022 2:16 PM CDT Attempt to Treat, PT Entered On: 05/12/2022 15:00 EDT Performed On: 05/12/2022 14:16 EDT by GALE PEREZ PT Attempt to Treat Unable to Treat Due To : Patient Refusal Inability to Treat Comment : pt stating anticipating disch home today per theresa robb MD today at 4pm no noted disch orders but pt deferring at this time; will check back as time permits/appropriate GALE PEREZ PT - 05/12/2022 14:59 EDT documented in this encounter Plan of Treatment Not on file documented as of this encounter Visit Diagnoses Not on filedocumented in this encounter
--- OUTSIDE RECORDS SUMMARY | 2025-02-21 13:34 | XMS_ITS | Encounter Summary ---
Author Organization [employer] Address [address] [place] [address] Care Team Providers Care Water Softener Servicer Name Role Phone Unavailable Primary Care Provider Unavailabl e Encounter Details Date Type Department Care Team (Late st Contact Info) Description 03/04/[address] [facility] [place] [facility] [address] [place] [address] ProviderFlorentino MD [address] [place] [address] Social History Tobacco Use Types Packs/Day Years Used Date Smoking Tobacco: Never Assessed Comments Unknown Sex and Gender Information Value Date Recorded Sex Assigned at Not on file Legal Sex Female 1:44 PM CDT Gender Identity Not on file Sexual Orientation Not on file documented as of this encounter Miscellaneous Notes * Cerner Conversion Note - Florentino Lynne MD - 03/04/2022 10:17 AM CDT Patient: ALYSSA AZUL Age: 61 years Sex: Female : 1960 Associated Diagnoses: None Author: MARGARETH MANRIQUEZ MD Subjective Continues to be on vent. Health Status Allergies: Allergic Reactions (Selected) No [...] inhalation solution: 1 mL, Nebulized Inhalation, RT_QID Norvasc: 10 mg, Oral, At Bedtime Pepcid: 20 mg, IV Push, At Bedtime Zofran: 4 mg, IV Push, Q6H, PRN: Nausea Zosyn + Sodium Chloride 0.9% intravenous solution 50 mL: 2.25 Gram, 16.67 mL/Hr, IV Piggyback, Q8HInt calcium gluconate: 1 Gram, 100 mL, 100 mL/Hr, IV Piggyback, Daily, PRN: Other (See Comment) calcium gluconate: 2 Gram, 100 mL, 100 mL/Hr, IV Piggyback, Daily, PRN: Other (See Comment) calcium gluconate: 2 Gram, 100 mL, 100 mL/Hr, IV Piggyback, Q12H, PRN: Other (See Comment) docusate sodium: 100 mg, Feeding Tube, Daily fentaNYL injection 2,000 mcg + NaCl 0.9% Premix Diluent 100 mL: TITRATE, IntraVENous glucagon: 1 mg, IntraMuscular, Q15Min, PRN: Other (See Comment) glucose 4 g oral tablet, chewable: 16 Gram, 4 Tab, Chew, Q15Min, PRN: Other (See Comment) glucose 40% oral gel: 15 Gram, 37.5 mL, Oral, Q15Min, PRN: Other (See Comment) guaiFENesin: 400 mg, Oral, Q6H heparin: 5,000 Units, SubCutaneous, Q8H hydrALAZINE: 10 mg, IV Push, Q6H, PRN: Hypertension insulin glargine: 5 Units, SubCutaneous, At Bedtime insulin regular sliding scale: Scale C, SubCutaneous, Q6H magnesium sulfate: 2 Gram, 50 mL, 25 mL/Hr, IV Piggyback, Daily, PRN: Other (See Comment) magnesium sulfate: 2 Gram, 50 mL, 25 mL/Hr, IV Piggyback, Q2H, PRN: Other (See Comment) morphine: 2 mg, IV Push, Q2H, PRN: Pain (Severe 7-10) potassium chloride 10 mEq/50 mL intravenous solution: 10 mEq, 50 mL, 50 mL/Hr, IV Piggyback, Q1H, PRN: Other (See Comment) potassium chloride 20 mEq oral tablet, extended release: 20 mEq, 1 Tab, Oral, Q2H, PRN: Other (See Comment) potassium chloride 20 mEq oral tablet, extended release: 60 mEq, 3 Tab, Oral, Q2H, PRN: Other (See Comment) propofol injection 1,000 mg + Premix Diluent for Drip 100 mL: TITRATE, IntraVENous senna: 8.8 mg, Oral, At Bedtime sodium phosphate: 15 mMole, 5 mL, 50 mL/Hr, IV Piggyback, Daily, PRN: Other (See Comment) sodium phosphate: 15 mMole, 5 mL, 50 mL/Hr, IV Piggyback, Q6H, PRN: Other (See Comment) Documented Medications Documented Farxiga 10 mg oral tablet: Tab, Oral, Daily, 0 Refill(s) [place]-3 1000 mg oral capsule: Cap, Oral, QID, 0 Refill(s) alendronate weekly: 70 mg, Oral, Weekly, 0 Refill(s) bisoprolol 5 mg oral tablet: 1 Tab, Oral, Daily, 0 Refill(s) ferrous sulfate 325 mg (65 mg elemental iron) oral tablet: Tab, Oral, BID, 0 Refill(s) furosemide 40 mg oral tablet: 1 Tab, Oral, Daily, 0 Refill(s) lisinopril: 40 mg, Oral, Daily, 0 Refill(s) metFORMIN: 1,000 mg, Oral, BID, 0 Refill(s) pravastatin 40 mg oral tablet: Tab, Oral, Daily, 0 Refill(s), Home Medications (9) Active alendronate weekly 70 mg, Oral, Weekly bisoprolol 5 mg oral tablet 5 mg = 1 Tab, Oral, Daily Farxiga 10 mg oral tablet , Oral, Daily ferrous sulfate 325 mg (65 mg elemental iron) oral tablet , Oral, BID furosemide 40 mg oral tablet 40 mg = 1 Tab, Oral, Daily lisinopril 40 mg, Oral, Daily metFORMIN 1,000 mg, Oral, BID [place]-3 1000 mg oral capsule , Oral, QID pravastatin 40 mg oral tablet , Oral, Daily , Medications (34) Active Scheduled: (11) acetylcysteine 20% liq 4 mL 1 mL, Nebulized Inhalation, RT_QID albuterol-ipratropium inh 3 mL 3 mL, Nebulized Inhalation, RT_Q6H amLODIPine 10 mg tab 10 mg 1 Tab, Oral, At Bedtime docusate sod 100 mg/10 mL liq 100 [...] Titrate 100 mL 100 mL, IntraVENous PRN: (21) albuterol-ipratropium inh 3 mL 3 mL, Nebulized [...] mg 2 mL, IV Push, Q6H potassium chloride 10 mEq 50 mL, IV Piggyback, Q1H potassium chloride CR 20 mEq tab 20 mEq 1 Tab, Oral, Q2H potassium chloride CR 20 mEq tab 60 mEq 3 Tab, Oral, Q2H sodium phosphate 15 mMole 5 mL, IV Piggyback, Daily sodium phosphate 15 mMole 5 mL, IV Piggyback, Q6H Problem list: Medical History of obstructive sleep apnea / IMO [id number] / Confirmed, Active Problems (5) Chronic kidney disease (CKD), stage III (moderate) Diabetes History of obstructive sleep apnea Hyperlipidemia Hypertension Objective VS/Measurements Measurements from flowsheet : Measurements 03/04/2022 5:45 EDT Height Source Chart Height Entry Format Collier Height/Length, SAMMARINESE (ft) 5 ft Height/Length SAMMARINESE 4 Inch CLINICALHEIGHT 162.56 cm Routine Weight Source Bed scale Routine Weight Entry Format Metric Routine Weight, Kilograms 93.4 kg Routine Weight Calculation 93.4 kg Body Mass Index (BMI), Routine 35.34 kg/m2 Body Surface Area (BSA), Routine 1.98 m2 03/03/2022 4:00 EDT Routine Weight Source Bed scale Routine Weight Entry Format Metric Routine Weight, Kilograms 91.5 kg Routine Weight Calculation 91.5 kg , Vitals Signs (last 24 hrs) Last Charted Minimum Maximum Temp 98.5 (MAR 04 04:00) 98.0 (MAR 03 16:00) 98.2 (MAR 03 12:00) Mon HR 66 (MAR 04 08:59) 60 (MAR 03 23:15) 82 (MAR 03 11:00) Resp Rate 16 (MAR 04 08:59) L 9 (MAR 04 01:00) H 24 (MAR 03 11:00) SBP 93 (MAR 04 05:30) 93 (MAR 04 05:00) H 155 (MAR 04 04:00) DBP L 53 (MAR 04 05:30) L 53 (MAR 04 05:00) 76 (MAR 04 04:00) MAP 67 (MAR 04 05:30) 67 (MAR 04 05:00) 108 (MAR 04 04:00) SpO2 98 (MAR 04 08:59) L 92 (MAR 04 05:45) 100 (MAR 03 12:35) Intake & Output Totals Last 24 Hours (7a-7a) Intake (45 Events) Continuous Infusions (167.6 mL) Medications (297.52 mL) Output (4 Events) Valenzuela Catheter (1470 mL) Input Total: 465.12 mL Output Total: 1470 mL Balance: -1004.88 mL Physical exam contact may be limited to avoid COVID-19 exposure General: Intubated and sedated. . Eye: Normal conjunctiva. HENT: Normocephalic, AT. Neck: Supple, ETT +. Respiratory: Symmetrical chest wall expansion, Coarse breath sound on vent. . Cardiovascular: Normal rate, Trace edema. Gastrointestinal: Soft, Non-tender, Non-distended. Genitourinary: + Valenzuela. Integumentary: Warm, Dry, No rash. Neurologic: Intubated and sedated. . Results Review Labs (Last four charted values) WBC 6.8 (MAR 04) 6.4 (MAR 03) 8.5 (MAR 02) 9.1 (MAR 01) HB L 7.5 (MAR 04) L 7.3 (MAR 03) L 7.5 (MAR 02) L 7.6 (MAR 01) HCT L 25.2 (MAR 04) L 24.1 (MAR 03) L 24.6 (MAR 02) L 25.0 (MAR 01) Plt L 161 (MAR 04) 172 (MAR 03) 196 (MAR 02) 203 (MAR 01) Na 146 (MAR 04) 143 (MAR 03) 144 (MAR 03) 144 (MAR 02) K 3.7 (MAR 04) 3.7 (MAR 03) L 2.9 (MAR 03) 3.6 (MAR 02) Cl H 114 (MAR 04) H 116 (MAR 03) H 115 (MAR 03) H 113 (MAR 02) CO2 21 (MAR 04) 23 (MAR 03) 23 (MAR 03) 24 (MAR 02) BUN H 49 (MAR 04) H 54 (MAR 03) H 55 (MAR 03) H 60 (MAR 02) Cr H 2.20 (MAR 04) H 2.30 (MAR 03) H 2.40 (MAR 03) H 2.70 (MAR 02) Glu R H 116 (MAR 04) H 155 (MAR 03) H 126 (MAR 03) H 157 (MAR 02) Ca 8.4 (MAR 04) 8.4 (MAR 03) 8.4 (MAR 03) 8.5 (MAR 02) Lactic 0.5 (MAR 04) 0.6 (MAR 01) PT 10.5 (MAR 04) 11.0 (MAR 02) INR 1.0 (MAR 04) 1.0 (MAR 02) PTT 26.0 (MAR 04) 24.6 (MAR 02) AST 12 (MAR 04) 15 (MAR 03) 12 (MAR 02) 10 (MAR 01) ALT 16 (MAR 04) 16 (MAR 03) 14 (MAR 02) 15 (MAR 01) ALK P 47 (MAR 04) 44 (MAR 03) 42 (MAR 02) 46 (MAR 01) T Bili 0.6 (MAR 04) 0.5 (MAR 03) 0.4 (MAR 02) 0.4 (MAR 01) PTN L 6.0 (MAR 04) L 6.0 (MAR 03) L 6.2 (MAR 02) L 6.3 (MAR 01) ALB L 2.1 (MAR 04) L 2.2 (MAR 03) L 2.3 (MAR 02) L 2.4 (MAR 01) Impression and Plan 1- JAVIER - nonoliguric. Likely prerenal azotemia/ ATN secondary to septic shock and cardiac arrest. Fe urea 25%. Vancomycin level was >50 on last check. Improving. 2- CKD 3: Baseline creatinine around 1.6. Patient follows with [facility]. 3- Sepsis 4- Hypernatremia: resolved 5- Anemia 6- Decubitus ulcer post debridement 7- Respiratory distress - Pneumonia on vent. Plan: - IAlbumin infusion to support BP - Keep MAP above 65 mmHg. - Monitor I/o - Avoid nephrotoxic agents. - Adjust meds per renal function - No emergent need of ROLL SKINNER. - Monitor H/H and transfuse for Hgb less than 7.0 High risk and complexity patient. Discussed with RN at bedside. documented in this encounter Plan of Treatment Not on file documented as of this encounter Visit Diagnoses Not on filedocumented in this encounter
--- OUTSIDE RECORDS SUMMARY | 2025-02-21 13:34 | XMS_ITS | Encounter Summary ---
Author Organization [employer] [facility] Address [address] [place] [id number] Care Team Providers Care Dipper And Baker Name Role Phone Unavailable Primary Care Provider Unavailabl e Encounter Details Date Type Department Care Team (Late st Contact Info) Description 05/09/2022 Transcribed Document [facility] [place] [address] [place] [address] ProviderFlorentino MD [address] [place] [address] Social History Tobacco Use Types Packs/Day Years Used Date Smoking Tobacco: Never Assessed Comments Unknown Sex and Gender Information Value Date Recorded Sex Assigned at Not on file Legal Sex Female 1:44 PM CDT Gender Identity Not on file Sexual Orientation Not on file documented as of this encounter Miscellaneous Notes * Cerner Conversion Note - Florentino Lynne MD - 05/09/2022 3:41 PM CDT On Going Discharge Planning Entered On: 05/09/2022 15:41 EDT Performed On: 05/09/2022 15:41 EDT by ERIK GALARZA Set Up Mechanic Heading Machines-Rrt Care Management Progress Note Discharge Arrangements : Patient Post-Acute Information Patient Name: IRMA AZUL Gender: Female : 60 Age: 62 [...] Is the Patient Meeting Medical Necessity : Yes Did you Attend Multidisciplinary Rounds? : Yes ERIK GALARZA, Set Up Mechanic Heading Machines-Rrt - 05/09/2022 15:41 EDT Narrative Progress Note Narrative Progress Note : [facility] will not [facility] a bed until at least Thursday. [facility]. [facility] has denied. CM arranged [facility] for [facility] to go to [facility] if [facility] not have a bed. [facility] is patient's number one choice. CM will continue to follow. Historical Progress Note : [facility] looking. [facility] is not in and will look again on Thursday. [facility], [facility], and [facility] are also following. If no offers on Thursday patient will need to go home. Cm arranged for [facility] to transfer home in case no facilities are found. CM will continue to follow. ERIK GALARZA, Set Up Mechanic Heading Machines-Rrt - 05/09/22 15:02:43 Patient is completing abx today. Patient stated that she can't go home as her family is gone all weekend and she has no one to help take care of her. Patient can't have HH due to no HH agency accepting her insurance. Patient and CM called patients insurance to try to find services for patient today. [facility] is looking at patient to see if they can offer patient a bed. Cm called [facility] and they cannot accept patient due to not have skilled benefits. CM called [facility] but had to leave a message. CM faxed patient to [place] [facility]. [facility] is going to re-look at patient. CM faxed patient out to more SNFS and acute rehabs. Cm will continue to follow. ERIK GALARZA Set Up Mechanic Heading Machines-Rrt - 05/08/22 13:58:29 Patient is completing abx today. Patient stated that she can't go home as her family is gone all weekend and she has no one to help take care of her. Patient can't have HH due to no HH agency accepting her insurance. Patient and CM called patients insurance to try to find services for [facility] today[facility]. Cm called [facility] and they cannot accept patient due to not have skilled benefits. CM called [facility] but had to leave a message. CM faxed patient to [place] [facility]. [facility] is going to re-look at patient. Cm will continue to follow. ERIK GALARZA, Set Up Mechanic Heading Machines-Rrt - 05/08/22 13:50:52 CM spoke with patient about going home tomorrow or Michael after IV abx completion. Patient stated that she wants to go to [facility] or [facility]. She stated that she needs rehab but [...] Cm will continue to follow. ERIK GALARZA, Set Up Mechanic Heading Machines-Rrt - 05/07/22 09:50:44 Patient will be on iv abx until 05/08. She will then need to discharge home with family. Can't receive HH due to insurance and location. Will likely need outpatient wound care follow up. Need resources from a place from mom. Maybe a trapeze bar. Cm will continue to follow. ERIK GALARZA, Set Up Mechanic Heading Machines-Rrt - 05/06/22 14:19:48 RRS HIGH, LOS 3, ELOS 3 Cefepime and micafungin iv until 9.8-Per [employer], rxs at at home are covered at 100%--PICC was refused by pt so will get groshong but can't be placed until 9.6. Pt is seeking [facility] and per liaison, [facility] administration has declined referral. Referrals were made 9.1 and per [facility], the denial was based on pt's insurance. [facility]. One interested facility[facility] was updated. Per [facility], pt's insurance is [employer] and there are no accepting HH agencies in pt's home zipcode. Dtr states pt's primary is [place] Medicaid but [facility] shows as 2nd and D-I-L cannot produce paperwork that shows [place] Medicaid as primary. DCP may include completion of iv abx in hospital as she will not have HH to monitor iv abx and groshong and pt does not have transportation to out infusion center, stating he son and D-I-L work. TRISTAN TAYLOR, RN-Box Office Agent - 05/02/22 15:55:36 RRS HIGH, LOS 2, ELOS 3 Discharged 8.27 and readmitted 8.28 Sepsis-uti Cefepime and micafungin iv until 9.8 Per [facility], pt's insurance is [employer] Medicaid with 2nd as [place] Medicaid. Pt agreed to snf-[facility] referral with pref for [facility]. Per patricia, pt is declined. Pt agreed to [facility] and 2nd to [place]. If pt discharges to home because there are no acceting snfs, only insurance accepted [place] NOT [place] Medicaid. Will need precert for snf and potential transportation. TRISTAN TAYLOR RN-Box Office Agent - 05/01/22 15:43:47 Patient is now on IV abx, Receiving wound care. Patient stated that she wants to go home. Family informed nursing that patient needs rehab. Nursing told family that they need to discuss this with patient and patient continues to state she wants to go home. Cm called [facility]. They can only accept patient if she truly does have straight Medicaid and not Aetna. CM will confirm insurance on 05/01/2022. CM will continue to follow. ERIK GALARZA, Set Up Mechanic Heading Machines-Rrt - 04/30/22 14:16:00 ERIK GALARZA, Set Up Mechanic Heading Machines-Rrt - 05/09/2022 15:41 EDT documented in this encounter Plan of Treatment Not on file documented as of this encounter Visit Diagnoses Not on filedocumented in this encounter
--- OUTSIDE RECORDS SUMMARY | 2025-02-21 13:34 | XMS_ITS | Encounter Summary ---
Author Organization [employer] Address [address] [place] [address] Care Team Providers Care Waste Disposal Plant Operator Name Role Phone Unavailable Primary Care Provider Unavailabl e Encounter Details Date Type Department Care Team (Late st Contact Info) Description 05/12/2022 Transcribed Document [facility] [place] [address] [place] [address] ProviderFlorentino MD [address] [place] [address] Social History Tobacco Use Types Packs/Day Years Used Date Smoking Tobacco: Never Assessed Comments Unknown Sex and Gender Information Value Date Recorded Sex Assigned at Not on file Legal Sex Female 1:44 PM CDT Gender Identity Not on file Sexual Orientation Not on file documented as of this encounter Miscellaneous Notes * Cerner Conversion Note - Florentino Lynne MD - 05/12/2022 12:25 PM CDT Meds to Bed Enrollment Entered On: 05/12/2022 12:25 EDT Performed On: 05/12/2022 12:25 EDT by Huma Ribera, PHARMACIST-SPECIALIST CLINICAL Meds to Bed Enrollment Patient Enrollment Decision: : Yes/enroll in meds to bed program Huma Ribera, PHARMACIST-SPECIALIST CLINICAL - 05/12/2022 12:25 EDT documented in this encounter Plan of Treatment Not on file documented as of this encounter Visit Diagnoses Not on filedocumented in this encounter
--- OUTSIDE RECORDS SUMMARY | 2025-02-21 13:34 | XMS_ITS | Encounter Summary ---
Author Organization [employer] Address [address] [place] [id number] Care Team Providers Care Gas Generator Operator Name Role Phone Unavailable Primary Care Provider Unavailabl e Encounter Details Date Type Department Care Team (Late st Contact Info) Description 05/12/2022 Transcribed Document [facility] [place] [facility] [place] [address] ProviderFlorentino MD [facility] [place] [address] Social History Tobacco Use Types Packs/Day Years Used Date Smoking Tobacco: Never Assessed Comments Unknown Sex and Gender Information Value Date Recorded Sex Assigned at Not on file Legal Sex Female 1:44 PM CDT Gender Identity Not on file Sexual Orientation Not on file documented as of this encounter Miscellaneous Notes * Cerner Conversion Note - Florentino Lynne MD - 05/12/2022 3:38 PM CDT Patient: ALYSSA AZUL Age: 62 Years Sex: Female : 1960 Admit Date 2022 00:16 Discharge Date 05/12/2022 Primary Care Provider PAUL LUNA MD Discharge Diagnosis Sepsis, POA Resolved Secondary to UTI Transition [...] Zyvox and IV micafungin therapy completed JAVIER on CKD3 baseline creatinine ~1.6 Encouraging oral hydration Avoid nephrotoxic medications. Trending electrolytes and creatinine NAGMA Resolved D5W with bicarb completed Avoid oral ascorbic acid Hyperkalemia Lokelma therapy Left gluteal wound POA Chronic paraplegia Antibiotic therapy Daily dressing Wound care consult noted Diabetes mellitus Routine blood sugar monitoring Sliding scale insulin Carbohydrate controlled diet Anemia Iron deficiency noted Iron replacement therapy Paraplegia Chronic pain Physical therapy evaluations Procedures None Studies Chest x-ray Reason for Hospitalization 62-year-old female with a history of hypertension, paraplegia, left buttocks wound with wound VAC from recent admission, recurrent UTIs, recent pseudomonal and E. coli UTI presents [facility] emergency department in [place] complaining of dizziness and feeling cold/chills that began the morning of presentation. Constant, no inciting event, moderately severe, generalized, nonradiating no exacerbating relieving factors. She was recently treated for UTI with meropenem and de-escalated to cefuroxime discharged 2 days ago. Here in the ED she has no leukocytosis, she is not tachycardic and is afebrile. She was started on antibiotics for suspected recurrent UTI. She was hypotensive, got IV fluids blood pressure improved. We will admit her for infectious disease to evaluate. [1] Hospital Course The patient was admitted to the medical surgical floor with infectious disease consultation. Blood, wound and urine cultures were acquired and she was started on broad-spectrum antibiotic therapy. She tolerated her IV antibiotic therapy well and completed her course of recommended therapy. Her laboratory studies and inflammatory markers were trended and identified improvement. The patient identified needing fdc care not available at home. Case management assisted in transitioning her care for fdc facility care. On day of discharge her BMP identified a non-anion gap metabolic acidosis with an elevated potassium which was corrected with D5W with bicarb and Lokelma therapy. She is encouraged to improve oral intake and we recommended a repeat BMP in 2 to 3 days. Her care will be transitioned to fdc facility for ongoing strengthening and rehab. Vital Signs T: 36.8 ??C TMIN: 36.5 ??C TMAX: 36.9 ??C HR: 95(Monitored) RR: 18 BP: 157/87 SpO2: 85% Oxygen Settings (Last) Oxygen Therapy Mode: Room air (05/12/22 08:24:00) Physical Exam General: Alert and oriented, well [...] intact. Psychiatric: Cooperative, appropriate mood and affect. Discharge Disposition Longterm unit/facility Discharge Follow Up Follow-up with PCP 3 to 5 days after discharge from fdc facility. Discharge Medications (11) Active acetaminophen 325 mg oral tablet 650 mg = 2 Tab, PRN, Oral, Q6H bisoprolol 5 mg oral tablet 5 mg = 1 Tab, Oral, Daily docusate sodium 100 mg oral capsule 100 mg = 1 Cap, PRN, Oral, BID Farxiga 10 mg oral tablet 10 mg = 1 Tab, Oral, Daily ferrous sulfate 325 mg (65 mg elemental iron) oral tablet 325 mg = 1 Tab, Oral, BID Fish Oil 1000 mg oral capsule 2,000 mg = 2 Cap, Oral, BID metFORMIN 1000 mg oral tablet 1,000 mg = 1 Tab, Oral, BID Mucinex 600 mg oral tablet, extended release 600 mg = 1 Tab, Oral, Q12H Pepcid 20 mg oral tablet 20 mg = 1 Tab, Oral, At Bedtime pravastatin 40 mg oral tablet 40 mg = 1 Tab, Oral, At Bedtime Senna 8.6 mg oral tablet 8.6 mg = 1 Tab, Oral, At Bedtime Code Status Start: 04/29/22 1:02:00 EDT, Full Code, Continuous Order Condition on Discharge Improved and stable Consulting Physicians ALTHEA ROSALES MD-INF (Suspected UTI, sacral wound) HIGINIO AREVALO MD-INF Current Diet Order Diet, Adult - Ordered -- Start: 05/06/22 11:22:00 EDT, 60 gm carbs:[id number] angel, Instructions: Diabetic Diet Patient Discharge Summary Orders Discharge Activity: Activity as tolerated and recommended by SNF with fall prevention/precaution education Discharge Diet: Heart healthy diet with restricted carbohydrates (diabetic diet) Isolation: Standard precautions Follow Up Labs/Studies BMP in 2 to 3 days Time Spent on Discharge I spent 35 minutes in lnlo-yw-[id number] time with the patient, nursing staff and case management concerning the discharge process. We discussed the admitting diagnoses and the hospital course. We discussed identified improvement and the patient's desire to transition her care to fdc facility. We reviewed inpatient studies and imaging. The patient voiced understanding on the importance of follow-up with her primary care provider and specialist(s) upon discharge from SNF. The patient plans to be compliant with the medication regimen prescribed and follow-up appointments. We will transition her care to fdc facility. [1] Admission H & P; KASI RAVI MD 2022 02:23 EDT Electronically signed by Sumaya [facility] Conversion Towboat Pilot Cerner at 12/21/2022 5:01 PM CDT documented in this encounter Plan of Treatment Not on file documented as of this encounter Visit Diagnoses Not on filedocumented in this encounter
--- OUTSIDE RECORDS SUMMARY | 2025-02-21 13:34 | XMS_ITS | Encounter Summary ---
Author Organization [employer] Address [address] [place] [address] Care Team Providers Care Customer Resource Specialist Name Role Phone Unavailable Primary Care Provider Unavailabl e Encounter Details Date Type Department Care Team (Late st Contact Info) Description 03/03/2022 Transcribed Document [facility] [place] Family Medicine [address] [place] [address] ProviderFlorentino MD [address] [place] [address] Social History Tobacco Use Types Packs/Day Years Used Date Smoking Tobacco: Never Assessed Comments Unknown Sex and Gender Information Value Date Recorded Sex Assigned at Not on file Legal Sex Female 1:44 PM CDT Gender Identity Not on file Sexual Orientation Not on file documented as of this encounter Miscellaneous Notes * Cerner Conversion Note - Florentino Lynne MD - 03/03/2022 9:24 AM CDT Patient: ALYSSA AZUL Age: 61 [...] 2.25 Gram, 16.67 mL/Hr, IV Piggyback, Q8HInt docusate sodium: 100 mg, Feeding Tube, Daily [...] regular sliding scale: Scale C, SubCutaneous, Q6H morphine: 2 mg, IV Push, Q2H, PRN: Pain (Severe 7-10) propofol injection 1,000 mg + Premix Diluent for Drip 100 mL: TITRATE, IntraVENous senna: 8.8 mg, Oral, At Bedtime Documented Medications Documented Farxiga 10 mg oral tablet: Tab, Oral, Daily, 0 Refill(s) [place]-3 1000 mg oral capsule: Cap, Oral, QID, [...] Oral, Daily metFORMIN 1,000 mg, Oral, BID [place]-3 1000 mg oral capsule , Oral, QID pravastatin 40 mg oral tablet , Oral, Daily , Medications (23) Active Scheduled: (10) acetylcysteine 20% [...] 4 mg 2 mL, IV Push, Q6H Problem list: Medical History of obstructive sleep apnea / IMO [id number] / Confirmed, Active Problems (5) Chronic kidney disease (CKD), stage III (moderate) Diabetes History of obstructive sleep apnea Hyperlipidemia Hypertension Objective VS/Measurements Measurements from flowsheet : Measurements 03/03/2022 4:00 EDT Routine Weight Source Bed scale Routine Weight Entry Format Metric Routine Weight, Kilograms 91.5 kg Routine Weight Calculation 91.5 kg 03/02/2022 4:05 EDT Routine Weight Source Bed scale Routine Weight Entry Format Metric Routine Weight, Kilograms 93.3 kg , Vitals Signs (last 24 hrs) Last Charted Minimum Maximum Temp 98.0 (MAR 03 08:00) 98.0 (MAR 03 08:00) H 101.7 (MAR 02 10:30) Apical HR 72 (MAR 03 09:03) 72 (MAR 03 09:03) 72 (MAR 03 09:03) Mon HR 61 (MAR 03 09:00) 56 (MAR 02 22:00) 87 (MAR 02 09:30) Resp Rate 16 (MAR 03 09:00) L 0 (MAR 02 10:45) H 52 (MAR 02 11:57) SBP H 170 (MAR 03 09:00) 109 (MAR 02 12:30) H 221 (MAR 02 16:45) DBP 80 (MAR 03 09:00) 61 (MAR 02 13:15) H 93 (MAR 02 20:00) MAP 115 (MAR 03 09:00) 80 (MAR 02 12:30) 133 (MAR 02 20:00) SpO2 100 (MAR 03 09:00) 95 (MAR 02 09:45) 100 (MAR 02 16:49) Intake & Output Totals Last 24 Hours (7a-7a) Intake (73 Events) Continuous Infusions (845.7691 mL) Medications (247.03 mL) Output (8 Events) Valenzuela Catheter (1500 mL) Other Output (400 mL) Input Total: 1092.7991 mL Output Total: 1900 mL Balance: -807.2009 mL Physical exam contact may be limited [...] Review Labs (Last four charted values) WBC 6.4 [...] distress - Pneumonia on vent. Plan: - IV hydration - Replete Potassium - Monitor I/o - Avoid nephrotoxic agents. - Adjust meds per renal function - No emergent need of NEWS LIBRARY DIRECTOR. - Monitor H/H and transfuse for Hgb less than 7.0 High risk and complexity patient. documented in this encounter Plan of Treatment Not on file documented as of this encounter Visit Diagnoses Not on filedocumented in this encounter
--- OUTSIDE RECORDS SUMMARY | 2025-02-21 13:34 | XMS_ITS | Encounter Summary ---
Author Organization [employer] Address [address] [place] [address] Care Team Providers Care Wedding Cake Designer Name Role Phone Unavailable Primary Care Provider Unavailabl e Encounter Details Date Type Department Care Team (Late st Contact Info) Description 05/10/2022 Transcribed Document [facility] [place] [address] [place] [address] ProviderFlorentino MD [address] [place] [address] Social History Tobacco Use Types Packs/Day Years Used Date Smoking Tobacco: Never Assessed Comments Unknown Sex and Gender Information Value Date Recorded Sex Assigned at Not on file Legal Sex Female 1:44 PM CDT Gender Identity Not on file Sexual Orientation Not on file documented as of this encounter Miscellaneous Notes * Cerner Conversion Note - Florentino Lynne MD - 05/10/2022 4:11 PM CDT Patient: ALYSSA AZUL Age: 62 Years Sex: Female : 1960 Subjective Date of service May 10, 2022 The patient reports no acute events overnight. Nursing staff report that she remains afebrile with stable vital signs and saturating appropriately on room air. Case management is assisting with next site of care. Review of systems Constitutional: No fever, no chills Respiratory: No acute dyspnea, no cough Cardiovascular: No chest pain, no palpitation, no increasing pedal edema GI: No nausea, vomiting or diarrhea Neuro: No confusion, no acute motor or sensory changes Vital Signs T: 36.7 ??C TMIN: 36.4 ??C TMAX: 36.7 ??C HR: 87(Monitored) RR: 16 BP: 139/84 SpO2: 96% Oxygen Settings (Last) Oxygen Therapy Mode: Room air (05/10/22 15:16:00) Intake & Output Totals Last 24 Hours (7a-7a) Input Total: 360 mL Output Total: 1150 mL Balance: -790 mL Physical Exam General: Alert and oriented, [...] therapy evaluations The patient is hospitalized day 11 with above diagnoses. We appreciate infectious disease consult and recommendations. Case management is assisting with next site of care which is expected to be SNF for ongoing wound care. Barriers to discharge currently include identifying facility to transition care. It appears a few bed offers have become available for transition of care and will not be available until Thursday. Expected date of discharge once facility to transition care is identified. VTE Prophylaxis - Medical Heparin 5,000 Units, SubCutaneous, Inj, Q8HInt, Routine, Start 04/29/22 2:00:00 EDT, 04/29/22 1:32:00 EDT (KASI RAVI) Sequential Compression Device Start: 08/30/22 1:02:00 EDT, Bilateral, Length: Knee High, While [...] Scale A:, SubCutaneous, AC and at Bedtime [place] 5 mg-325 mg oral tablet, 1 Tab, Oral, Q6H, PRN Pepcid, 20 mg= 1 Tab, Oral, At Bedtime PRAVAstatin, 40 mg= 2 Tab, Oral, At Bedtime Vitamin C, 500 mg= 1 Tab, Oral, BID Lab Results Test Name Test Result Date/Time Sodium Level 134 mmol/L (Low) 05/10/2022 04:45 EDT Potassium Level 5.7 mmol/L (High) 05/10/2022 04:45 EDT Chloride Level 107 mmol/L 05/10/2022 04:45 EDT Carbon Dioxide Level 22 mmol/L 05/10/2022 04:45 EDT Anion Gap 11 05/10/2022 04:45 EDT Glucose Level 221 mg/dL (High) 05/10/2022 04:45 EDT Blood Urea Nitrogen 45 mg/dL (High) 05/10/2022 04:45 EDT Creatinine Level 1.40 mg/dL (High) 05/10/2022 04:45 EDT eGFR 46 mL/min/1.73m2 (Low) 05/10/2022 04:45 EDT eGFR NonAfrican 38 mL/min/1.73m2 (Low) 05/10/2022 04:45 EDT Bun/Creatinine 32.1 (High) 05/10/2022 04:45 EDT Calcium Level 9.3 mg/dL 05/10/2022 04:45 EDT Device Comment 1 Notified Nurse RBV 05/10/2022 11:53 EDT Glucose POC2 197 mg/dL (High) 05/10/2022 11:53 EDT Electronically signed by Sumyaa, [facility] Conversion Support Representative Cerner at 12/21/2022 5:11 PM CDT documented in this encounter Plan of Treatment Not on file documented as of this encounter Visit Diagnoses Not on filedocumented in this encounter
--- OUTSIDE RECORDS SUMMARY | 2025-02-21 13:34 | XMS_ITS | Encounter Summary ---
Author Organization [employer] Address [address] [place] [id number] Care Team Providers Care Ed Special Education Teacher Name Role Phone Unavailable Primary Care Provider Unavailabl e Encounter Details Date Type Department Care Team (Late st Contact Info) Description 03/03/2022 Transcribed Document [facility] Family Medicine [address] [place] [address] ProviderFlorentino MD [address] [place] [address] Social History Tobacco Use Types Packs/Day Years Used Date Smoking Tobacco: Never Assessed Comments Unknown Sex and Gender Information Value Date Recorded Sex Assigned at Not on file Legal Sex Female 1:44 PM CDT Gender Identity Not on file Sexual Orientation Not on file documented as of this encounter Miscellaneous Notes * Cerner Conversion Note - Florentino ProviderMD - 03/03/2022 12:24 PM CDT Patient: IRMA AZUL Age: 61 Years Sex: Female : 1960 Subjective DOS 03/02/2022 Seen and examined at bedside in ICU. [id number] present and all question answered. Patient ventilated/sedated. However following commands. Nurse reports thick sputum and spikes of temp [1] Vital Signs T: 36.7 ??C TMIN: 36.7 ??C TMAX: 37.1 ??C HR: 82(Monitored) RR: 11 BP: 170/80 SpO2: 100% WT: 91.5 kg Oxygen Settings (Last) Oxygen Therapy Mode: Mechanical ventilation (03/03/22 09:28:00) Intake & Output Totals Last 24 Hours (7a-7a) Input Total: 1092.7991 mL Output Total: 1900 mL Balance: -807.2009 mL Physical Exam General: No acute distress, ventilated/sedated. Eye: Pupils are equal, round and reactive to light, Normal conjunctiva. HENT: Normocephalic, old heeled trach site in place. Neck: Supple. Respiratory: Mechanical ventilation. no wheezing or rhonchi. Cardiovascular: Normal rate, Regular rhythm, No edema. Gastrointestinal: RLQ urostomy in place with clear urine. Musculoskeletal: LEFTlateral hip wound vac in place. 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 Psychiatric: Cooperative, Appropriate mood & affect. [2] Assessment/Plan acute resp failure - pulm consult [...] appreciated- recommend wound care consult - d/w biological photographer today- wound vac applied on 02/24 pneumonia [...] the patient due to divert status. Summary [facility] stay: patient admitted to [facility] on 02/17/22, temp in ER of [...] necrosis. no pathology sent. Patient transferred [place] [facility] at midnight on 02/22. 02/22: extubated, given [...] While patient is in bed, [facility] Sequential Compression Device Start: 03/01/22 18:51:00 EDT, Bilateral, Length: Knee High, While patient is in bed, Continuous Order [facility]) Medications Dextrose 50% injection, 25 Gram= 50 mL, [...] regular sliding scale, Scale C, SubCutaneous, Q6H morphine, 2 mg= 1 mL, IV Push, Q2H, PRN Mucomyst 20 % inhalation solution, 1 mL, Nebulized Inhalation , RT_QID Pepcid, 20 mg= 2 mL, IV Push, At Bedtime propofol injection 1,000 mg + Premix Diluent for Drip 100 mL senna, 8.8 mg= 5 mL, Oral, At Bedtime Sodium Chloride 0.45% with KCl 20 mEq/L 1,000 mL, 1000 mL, IntraVENous Zofran, 4 mg= 2 mL, IV Push, Q6H, PRN Zosyn + Sodium Chloride 0.9% intravenous solution 50 mL Lab Results Test Name Test Result Date/Time pH Art 7.44 03/03/2022 05:55 EDT pCO2 Art 34.2 mmHg (Low) 03/03/2022 05:55 EDT pO2 Art 109.0 mmHg (High) 03/03/2022 05:55 EDT HCO3 Art 23.1 mmol/L 03/03/2022 05:55 EDT BE Art -0.8 mmol/L 03/03/2022 05:55 EDT sO2 Art 99.2 % 03/03/2022 05:55 EDT tHb Art 7.9 Gram/dL (Low) 03/03/2022 05:55 EDT FHHb <2.4 % 03/03/2022 05:55 EDT ctO2 11.0 mmol/L 03/03/2022 05:55 EDT FIO2 Art 40 03/03/2022 05:55 EDT Delivery Device Type Art Ventilator 03/03/2022 05:55 EDT Temperature, F Art 98.6 Deg F 03/03/2022 05:55 EDT Art Blood Gas (ABG) Site Arterial Line 03/03/2022 05:55 EDT Acceptable Huang's Test Art Non-Applicable 03/03/2022 05:55 EDT Ventilator Mode Art AC 03/03/2022 05:55 EDT Tidal Volume Set Art 400.0 mL 03/03/2022 05:55 EDT Set Rate Art 16.0 03/03/2022 05:55 EDT Respiratory Rate Art 16.0 03/03/2022 05:55 EDT CPAP/PEEP Art 5.0 cmH2O 03/03/2022 05:55 EDT Comment Art supine 03/03/2022 05:55 EDT ABG Num of Draw Attempts 1 03/03/2022 05:55 EDT PaO2/FiO2 calculated 272 03/03/2022 05:55 EDT Sodium Level 144 mmol/L 03/03/2022 03:20 EDT Potassium Level 2.9 mmol/L (Low) 03/03/2022 03:20 EDT Chloride Level 115 mmol/L (High) 03/03/2022 03:20 EDT Carbon Dioxide Level 23 mmol/L 03/03/2022 03:20 EDT Anion Gap 9 03/03/2022 03:20 EDT Glucose Level 126 mg/dL (High) 03/03/2022 03:20 EDT Blood Urea Nitrogen 55 mg/dL (High) 03/03/2022 03:20 EDT Creatinine Level 2.40 mg/dL (High) 03/03/2022 03:20 EDT eGFR 25 mL/min/1.73m2 (Low) 03/03/2022 03:20 EDT eGFR NonAfrican 21 mL/min/1.73m2 (Low) 03/03/2022 03:20 EDT Bun/Creatinine 22.9 (High) 03/03/2022 03:20 EDT Calcium Level 8.4 mg/dL 03/03/2022 03:20 EDT Protein Total 6.0 Gram/dL (Low) 03/03/2022 03:20 EDT Albumin Level 2.2 Gram/dL (Low) 03/03/2022 03:20 EDT Globulin 3.8 Gram/dL 03/03/2022 03:20 EDT A/G Ratio 0.6 (Low) 03/03/2022 03:20 EDT Bilirubin Total 0.5 mg/dL 03/03/2022 03:20 EDT Alk Phos 44 Units/Liter 03/03/2022 03:20 EDT AST 15 Units/Liter 03/03/2022 03:20 EDT ALT 16 Units/Liter 03/03/2022 03:20 EDT Device Comment 1 Notified Nurse RBV 03/03/2022 11:51 EDT Device Comment 1 Notified Nurse RBV 03/03/2022 05:44 EDT Device Comment 1 Notified Nurse RBV 03/02/2022 23:40 EDT Device Comment 1 Protocols Followed 03/02/2022 17:38 EDT Glucose POC2 143 mg/dL (High) 03/03/2022 11:51 EDT Glucose POC2 119 mg/dL (High) 03/03/2022 05:44 EDT Glucose POC2 116 mg/dL (High) 03/02/2022 23:40 EDT Glucose POC2 120 mg/dL (High) 03/02/2022 17:38 EDT WBC 6.4 K/uL 03/03/2022 03:20 EDT RBC 2.64 Million/uL (Low) 03/03/2022 03:20 EDT Hgb 7.3 g/dL (Low) 03/03/2022 03:20 EDT Hct 24.1 % (Low) 03/03/2022 03:20 EDT MCV 91.3 fL 03/03/2022 03:20 EDT MCH 27.7 pg 03/03/2022 03:20 EDT MCHC 30.3 Gram/dL (Low) 03/03/2022 03:20 EDT Platelet Count 172 K/uL 03/03/2022 03:20 EDT MPV 9.7 fL 03/03/2022 03:20 EDT RDW 14.3 % 03/03/2022 03:20 EDT Neutrophil Percent Man 62 % 03/03/2022 03:20 EDT Band Percent Man 1 % (Low) 03/03/2022 03:20 EDT ANC # 4 K/uL 03/03/2022 03:20 EDT Lymph Percent Man 27 % 03/03/2022 03:20 EDT ALYC # 2 K/uL 03/03/2022 03:20 EDT [place] Percent Man 3 % (Low) 03/03/2022 03:20 EDT Eos Percent Man 1 % 03/03/2022 03:20 EDT Baso Percent Man 2 % (High) 03/03/2022 03:20 EDT [place] Percent Man 3 % (High) 03/03/2022 03:20 EDT Myelo Percent Man 1 % 03/03/2022 03:20 EDT RBC Morphology Abnormal 03/03/2022 03:20 EDT Anisocytosis 1+ (Abnormal) 03/03/2022 03:20 EDT Polychromasia 1+ (Abnormal) 03/03/2022 03:20 EDT Ovalocytes 1+ (Abnormal) 03/03/2022 03:[address] Estimate Adequate 03/03/2022 03:20 EDT Slide Review Add Diff 03/03/2022 03:20 EDT [1] Hospitalist Progress Note - SOAP; Elaine Ramires, PHYSICIAN-CLINIC 03/02/2022 14:00 EDT [2] Hospitalist Progress Note - SOAP; Elaine Ramires, PHYSICIAN-CLINIC 03/02/2022 14:00 EDT documented in this encounter Plan of Treatment Not on file documented as of this encounter Visit Diagnoses Not on filedocumented in this encounter
--- OUTSIDE RECORDS SUMMARY | 2025-02-21 13:34 | XMS_ITS | Encounter Summary ---
Author Organization [employer] Address [address] [place] [id number] Care Team Providers Care Audio/Visual Manager Name Role Phone Unavailable Primary Care Provider Unavailabl e Encounter Details Date Type Department Care Team (Late st Contact Info) Description 05/12/2022 Transcribed Document [facility] [place] Family Medicine [address] [place] [address] ProviderFlorentino MD [address] [place] [address] Social History Tobacco Use Types Packs/Day Years Used Date Smoking Tobacco: Never Assessed Comments Unknown Sex and Gender Information Value Date Recorded Sex Assigned at Not on file Legal Sex Female 1:44 PM CDT Gender Identity Not on file Sexual Orientation Not on file documented as of this encounter Miscellaneous Notes * Cerner Conversion Note - Florentino Lynne MD - 05/12/2022 5:12 PM CDT [facility] BERNICE Kuhn [id number] ALYSSA MAYORGA :1960 Visit Time:2022 Your Visit Summary Your Care Team Admitting Physician - KASI RAVI MD Attending Physician - EVELINA MAY [facility] Primary Care Physician - JACQUELIN LOPEZ DR Referring Physician - JOHN, SELF REFERRED Your Diagnosis Hypotension Suspected UTI Diabetes Chronic kidney disease (CKD), stage III (moderate) Decubitus ulcer, buttock Sepsis These Are Your Goals Patient Discharge Goal Patient Discharge Goal: Home health care What to do next Instructions From Your Care Team Discharge Activity: Discharge Activity: Activity as tolerated Diet: Discharge Diet: Resume usual diet as tolerated Follow-Up Appointments Follow Up with JACQUELIN LOPEZ DR When Within 2 to 3 days Comments after discharge from skilled facility Where: Medications What How Much When Instructions Next Dose PRAVAstatin (pravastatin 40 mg oral tablet) 1 Tablet(s) Oral At Bedtime bisoprolol (bisoprolol 5 mg oral tablet) 1 Tablet(s) Oral Every Day dapagliflozin (Farxiga 10 mg oral tablet) 1 Tablet(s) Oral Every Day ferrous sulfate (ferrous sulfate 325 mg (65 mg elemental iron) oral tablet) 1 Tablet(s) Oral Two Times A Day metFORMIN (metFORMIN 1000 mg oral tablet) 1 Tablet(s) Oral Two Times A Day omega-3 polyunsaturated fatty acids (Fish Oil 1000 mg oral capsule) 2 Capsule(s) Oral Two Times A Day acetaminophen (acetaminophen 325 mg oral tablet) 2 Tablet(s) Oral Every 6 Hours as needed for pain/ fever docusate (docusate sodium 100 mg oral capsule) 1 Capsule(s) Oral Two Times A Day as needed for as needed for constipation famotidine (Pepcid 20 mg oral tablet) 1 Tablet(s) Oral At Bedtime guaiFENesin (Mucinex 600 mg oral tablet, extended release) 1 Tablet(s) Oral Every 12 hours senna (Senna 8.6 mg oral tablet) 1 Tablet(s) Oral At Bedtime Take your medications faithfully. Do NOT skip medication. Do NOT stop taking medications without the direction of a physician. Carry a list of your medications with you at all times, and take this medication list with you to your first follow up visit. Report any side effects. Avoid herbal remedies unless discussed with your physician. As part of your treatment plan, your physician may have prescribed a limited course of a controlled substance. This medication may be given to help people with moderate or severe pain or for other medical conditions, but there are risks involved with treatment. Common side effects may include nausea, constipation, drowsiness, sweating, itching, dry mouth, and rash. More serious side effects may include cognitive and motor impairment, like problems with thinking, concentrating, alertness, and movement (e.g. slowed reflexes), and driving and operating heavy machinery can be dangerous. It is important for you to talk to your physician if you have these side effects or questions. These controlled substances can produce physical dependence and be habit-forming if taken for an extended period of time, which means that the body has gotten used to them and may experience withdrawal symptoms if they are abruptly stopped. Withdrawal symptoms can include runny nose, sweating, goose bumps, diarrhea, abdominal cramping, rapid heartbeat, difficulty sleeping, and nervousness. Please dispose of unused and medications per your retail pharmacy guidance. Allergies No Known Allergies Immunizations This Visit No Immunizations Found Education Materials Antibiotic Medicine, Adult Antibiotic medicines treat infections [...] Follow these instructions at home: ??? Take ahkl-vpn-giuqdja and prescription medicines as told by your [...] provider. Document Revised: 06/05/2020 Document Reviewed: 06/05/2020 [employer] Patient Education ?? 2021 [employer]. Sepsis, Diagnosis, Adult Sepsis is a serious [...] these instructions at home: Medicines ??? Take sdoe-hgm-smwvprv and prescription medicines only as told by [...] provider. Document Revised: 07/01/2021 Document Reviewed: 07/01/2021 [employer] Patient Education ?? 2021 [employer]. Pressure Injury A pressure injury is damage [...] flow. ??? Need to wear a medical pathology teacher. ??? Have poor control of your bladder [...] and water are not available, use hand stained glass installer. ? Change your dressing as told by your health care provider. ??? Check your wound every day for signs [...] blisters or sores (ulcers). Medicines ??? Take vlka-rbc-dwvuxkx and prescription medicines only as told by your health care provider. ??? If you were prescribed an antibiotic medicine, take or apply it as told by your health care provider. Do not stop using the antibiotic even if your condition improves. Reducing and redistributing pressure ??? Do not lie or sit in one position for a long time. Move or change position every 1???2 hours, or as told by your health [...] ??? Your wound does not improve after 1???2 weeks of treatment. Summary ??? A pressure injury is damage to the skin and underlying tissue that results from pressure being applied to an area of the body. ??? Do not lie or sit in one position for a long time. Your health care provider may advise you to move or change position every 1???2 hours. ??? Follow instructions from your health [...] provider. Document Revised: 03/16/2019 Document Reviewed: 03/16/2019 [employer] Patient Education ?? 2021 [employer] Diabetes Mellitus and Nutrition, Adult When you [...] Limit how much you use to: ? 0???1 drink a day for women. ? 0???2 drinks a day for men. ? Be aware of how much alcohol is in your drink. In the [place] one drink equals one 12 oz bottle of beer (355 mL), one 5 oz glass of wine (148 mL), or one 1?? oz glass of hard liquor (44 mL). [...] can eat at each meal. ??? Eat 4???6 oz (112???168 g) of lean protein each day, such as lean meat, chicken, fish, eggs, or tofu. One ounce (oz) of lean protein is equal to: ? 1 oz (28 g) of meat, chicken, or fish. ? 1 egg. ? ?? cup (62 g) of tofu. ??? Eat some foods each day that contain healthy fats, such as avocado, nuts, seeds, and fish. What foods should I eat? Fruits Berries. Apples. Oranges. Peaches. Apricots. Plums. Grapes. [place]. Papaya. Pomegranate. Kiwi. Cherries. Vegetables Lettuce. Spinach. Leafy greens, including kale, chard, kavitha greens, and mustard greens. Beets. Cauliflower. Cabbage. Broccoli. Carrots. Green beans. Tomatoes. Peppers. Onions. Cucumbers. Dolomite sprouts. Grains Whole grains, such as whole-wheat [...] Do I need to meet with a hospice educator? Do I need to meet with a dietitian? What number can I call if I have questions? When are the best times to check my blood glucose? Where to find more information: ??? [place] Diabetes Association: diabetes.org ??? Academy of Nutrition and Dietetics: www.eatright.org ??? National [place] of Diabetes and Digestive and Kidney Diseases: [...] provider. Document Revised: 07/24/2020 Document Reviewed: 07/24/2020 [employer] Patient Education ?? 2020 [employer] Acute Pain, Adult Acute pain is a [...] these instructions at home: Medicines ??? Take oruh-vrq-kiqalpf and prescription medicines only as told by [...] is severe. ? Do not take other qplm-xbc-fwmsbmo pain medicines in addition to prescription pain [...] and fresh fruits and vegetables. ? Take wost-aqk-xmswupt or prescription medicines. ? Limit foods that are high in fat and processed sugars, such as fried or sweet foods. Managing pain, stiffness, and swelling If directed, put ice on the affected area. To do this: ??? Put ice in a plastic bag. ??? Place a towel between your skin and the bag. ??? Leave the ice on for 20 minutes, 2???3 times a day. If directed, apply heat to the affected area as often as told by your health care provider. Use the heat source that your health care provider recommends, such as a moist heat pack or a heating pad. ??? Place a towel between your skin and the heat source. ??? Leave the heat on for 20???30 minutes. ??? Remove the heat if your [...] you are no longer ill. ??? Take dskb-tmn-pjyckdi and prescription medicines only as told by [...] provider. Document Revised: 01/02/2020 Document Reviewed: 01/02/2020 [employer] Patient Education ?? 2021 [employer] Hypotension As your heart beats, it forces [...] quickly after you eat. Medicines ??? Take kawr-crs-iwbbyja and prescription medicines only as told by [...] You have a fever for more than 2???3 days. ??? You feel more thirsty than [...] provider. Document Revised: 02/10/2019 Document Reviewed: 02/10/2019 [employer] Patient Education ?? 2021 [employer] Emergency Awareness and Preventative Care STROKE is an EMERGENCY Every Minute Counts Act FAST and Check for these signs: FACE Does the face look uneven? ARM Does one arm drift down? SPEECH Does their speech sound strange? TIME Call at any sign of stroke Stroke Risk Factors Atrial Fibrillation (irregular heartbeat) Diabetes Family history of stroke Heart Disease Heavy alcohol use High Blood Pressure High Cholesterol Physical inactivity and obesity Smoking Cigarette Smoking The facts are clear, cigarette smoking will shorten your life. Smoking can cause many illnesses along the way. As a healthcare provider, we recommend that you stop smoking. Assistance with quitting is available by contacting 4-359-LGYBNOW. This is a free resource providing counseling, support, and referral. Or you may contact your personal physician. [employer] Service Management Suicide Prevention Lifeline: The National Suicide Prevention Lifeline is a national network of local crisis centers that provides free and confidential emotional support to people in suicidal crisis or emotional distress 24 hours a day, 7 days a week. Don't Wait! Stop a Heart Attack Before it Starts What is a heart attack? A heart attack is damage or to a part of the heart from severely decreased or lack of blood flow to the heart. Over time, arteries can become narrow from the buildup of fat and cholesterol, which is called plaque. The plaque can rupture causing a blood clot to form. When the blood clot forms, the artery can become severely narrowed or completely blocked, causing a heart attack. Heart attack is the leading cause of in the [place]. 85% of muscle damage occurs within the first 2 hours. Delay in the recognition of heart attack symptoms increases the chances of . Know the early symptoms of a heart attack: Nausea Feeling of fullness in chest Jaw Pain Pain that travels down one or both arms Fatigue/being tired Anxiety Back Pain Chest pressure, squeezing, or discomfort Shortness of breath Sweating, or a cold sweat Feeling of impending doom There are unusual signs of a heart attack, too! Women, the elderly, and diabetics may present with atypical symptoms: Fainting/dizziness Weakness Confusion Risk Factors for a Heart Attack Some heart disease risk factors, such as age and family history, cannot be changed. Others, like smoking and lack of exercise, can be changed. Smoking High Cholesterol High Blood Pressure Family History Obesity Age Gender (Males are at higher risk) Lack of Exercise Diabetes Diet Stress Excessive Alcohol Intake If you or someone you know is experiencing the signs and symptoms of a heart attack, DON???T DELAY. Call immediately and seek help. If someone collapses, perform CPR! Do not attempt to drive if you are having symptoms of heart attack. Hands-Only CPR Why Hands-Only CPR? Hands-Only CPR has been shown to be as effective as conventional CPR for cardiac arrests that occur outside of a hospital. Survival depends on immediately receiving CPR from someone nearby. How do you perform Hands-Only CPR? There are two easy steps: Call if you see a teen or adult collapse Push hard and fast in the center of the chest at a beat of 100 beats per minute. Save a life! 4 WAYS TO GET AHEAD OF SEPSIS SEPSIS is a MEDICAL EMERGENCY. Time matters! Infections put you and your family at risk for a life-threatening condition called sepsis. Sepsis is the body's extreme response to an infection. It is life-threatening, and without timely treatment, sepsis can rapidly lead to tissue damage, organ failure, and . Sepsis happens when an infection you already have-in your skin, lungs, urinary tract or somewhere else-triggers a chain reaction throughout your body. 1 PREVENT INFECTIONS Take good care of chronic conditions. Talk to your doctor about getting the recommended vaccines. 2 PRACTICE GOOD HYGIENE Wash your hands frequently. Keep cuts or open sores clean and covered until they are healed. 3 KNOW THE SYMPTOMS Confusion or disorientation Shortness of breath High heart rate Fever, shivering, or feeling very cold Extreme pain or discomfort Clammy or sweaty skin 4 ACT FAST Get medical care IMMEDIATELY if you suspect sepsis or if you have an infection that is not getting better or is getting worse. To learn more about sepsis and how to prevent infections, visit www.cdc.gov/sepsis. Test Results Laboratory or Other Results This Visit (last charted value for your 2022 visit) Hematology 05/07/2022 4:59 AM WBC: 7.3 K/uL -- Normal range between ( 4.5 and 10.5 ) RBC: 3.40 Million/uL -- Normal range between ( 3.93 and 5.22 ) Hct: 31.7 % -- Normal range between ( 34.1 and 44.9 ) Hgb: 10.0 g/dL -- Normal range between ( 11.2 and 15.7 ) Platelet Count: 274 K/uL -- Normal range between ( 163 and 369 ) MCH: 29.4 pg -- Normal range between ( 25.6 and 32.2 ) MCHC: 31.5 Gram/dL -- Normal range between ( 32.2 and 36.5 ) MCV: 93.2 fL -- Normal range between ( 79.0 and 94.8 ) Slide Review: Technologist Eos %: 5.2 % -- Normal range between ( 0.0 and 7.0 ) Ferry #: 0.68 K/uL -- Normal range between ( 0.16 and 1.00 ) Eos #: 0.38 x10(3)/uL -- Normal range between ( 0.00 and 0.80 ) Ferry %: 9.3 % -- Normal range between ( 3.0 and 9.0 ) Baso %: 1.6 % -- Normal range between ( 0.0 and 1.5 ) RBC Morphology: Normal Baso #: 0.12 x10(3)/uL -- Normal range between ( 0.00 and 0.20 ) RDW: 15.8 % -- Normal range between ( 11.7 and 14.9 ) Neut %: 52.1 % -- Normal range between ( 34.0 and 71.0 ) Neut #: 3.82 K/uL -- Normal range between ( 1.56 and 6.13 ) Lymph %: 24.9 % -- Normal range between ( 19.3 and 53.1 ) Platelet Ct Estimate: Adequate Lymph #: 1.83 x10(3)/uL -- Normal range between ( 1.00 and 3.90 ) MPV: 9.8 fL -- Normal range between ( 9.4 and 12.4 ) IG#: 0.51 x10(3)/uL -- Normal range between ( 0.00 and 0.05 ) IG%: 6.90 % -- Normal range between ( 0.00 and 0.60 ) nRBC: 0.050 -- Normal range between ( 0.000 and 0.012 ) 05/06/2022 5:48 AM Myelo Percent Man: 1 % -- Normal range between ( 0 and 1 ) ALYC #: 2 K/uL Band Percent Man: 7 % -- Normal range between ( 5 and 11 ) Polychromasia: 1+ ANC #: 5 K/uL Ferry Percent Man: 4 % -- Normal range between ( 4 and 5 ) Baso Percent Man: 2 % -- Normal range between ( 0 and 1 ) Neutrophil Percent Man: 54 % -- Normal range between ( 50 and 65 ) Eos Percent Man: 5 % -- Normal range between ( 0 and 3 ) Anisocytosis: 1+ Lymph Percent Man: 27 % -- Normal range between ( 24 and 44 ) NRBC: 1 05/02/2022 4:40 AM Sed Rate Auto: 51 mm/Hr -- Normal range between ( 0 and 30 ) 04/30/2022 8:06 AM Reticulocyte: 4.16 % -- Normal range between ( 0.50 and 1.70 ) Urinalysis 04/28/2022 10:19 PM Ur RBC: 11-20 /HPF Urine Nitrite: Negative Urine Leukocyte Esterase: 500 Urine Appearance: Turbid Urine Glucose Dipstick: 3+ Urine Blood Dipstick: 1+ Urine Urobilinogen Dipstick: Normal Urine Protein Dipstick: 2+ Ur Bacteria: 2+ Ur WBC Clumps: PRESENT Ur Yeast, Buddin+ Ur Squamous Epithelial Cells: NONE /HPF Urine Color: Yellow Ur WBC: TNTC /HPF Urine Ketones Dipstick: Negative Ur Mucous: 1+ Urine pH Dipstick: 6.0 -- Normal range between ( 6.0 and 8.0 ) Ur Hyaline Casts: 3-5 /LPF Urine Bilirubin Dipstick: Negative Urine Specific [place]: 1.015 -- Normal range between ( 1.005 and 1.030 ) Urine Type.: U Cath Urine Culture if Indicated: Culture Ordered Microbiology 05/12/2022 12:18 PM SARS-CoV-2 (COVID19 PCR): Negative 04/28/2022 10:21 PM Wound Culture: See Result 04/28/2022 10:20 PM Blood Culture: See Result 04/28/2022 10:19 PM Urine Culture: POS General Chemistry 05/12/2022 3:48 PM Glucose POC2: 225 mg/dL -- Normal range between ( 70 and 110 ) Device Comment 1: Device Comment 1 05/12/2022 2:47 PM Creatinine Level: 1.70 mg/dL -- Normal range between ( 0.55 and 1.02 ) Sodium Level: 133 mmol/L -- Normal range between ( 136 and 146 ) Potassium Level: 5.7 mmol/L -- Normal range between ( 3.5 and 5.1 ) Chloride Level: 105 mmol/L -- Normal range between ( 102 and 112 ) Carbon Dioxide Level: 21 mmol/L -- Normal range between ( 21 and 32 ) Anion Gap: 13 -- Normal range between ( 9 and 20 ) Bun/Creatinine: 33.5 -- Normal range between ( 8.0 and 20.0 ) Calcium Level: 9.3 mg/dL -- Normal range between ( 8.4 and 10.1 ) eGFR : 37 mL/min/1.73m2 eGFR NonAfrican: 30 mL/min/1.73m2 Glucose Level: 246 mg/dL -- Normal range between ( 74 and 106 ) Blood Urea Nitrogen: 57 mg/dL -- Normal range between ( 7 and 22 ) 05/07/2022 4:59 AM CRP: 0.83 mg/dL -- Normal range between ( 0.00 and 0.30 ) 05/06/2022 5:48 AM Magnesium Level: 2.0 mg/dL -- Normal range between ( 1.5 and 2.4 ) 05/03/2022 5:20 AM Phosphorus: 2.6 mg/dL -- Normal range between ( 2.5 and 4.9 ) 04/30/2022 8:06 AM Lactate Dehydrogenase: 213 Units/Liter -- Normal range between ( 84 and 246 ) 2022 1:06 AM Lactic Acid Level: 0.7 mmol/L -- Normal range between ( 0.4 and 2.0 ) 04/28/2022 10:14 PM Bilirubin Total: 0.8 mg/dL -- Normal range between ( 0.2 and 1.2 ) A/G Ratio: 0.5 -- Normal range between ( 1.1 and 2.5 ) ALT: 26 Units/Liter -- Normal range between ( 13 and 56 ) AST: 18 Units/Liter -- Normal range between ( 5 and 37 ) Globulin: 5.0 Gram/dL -- Normal range between ( 1.5 and 4.5 ) Alk Phos: 73 Units/Liter -- Normal range between ( 27 and 136 ) Protein Total: 7.7 Gram/dL -- Normal range between ( 6.4 and 8.2 ) Albumin Level: 2.7 Gram/dL -- Normal range between ( 3.4 and 5.0 ) Cardiac Specific Markers 04/28/2022 10:14 PM ProBNP: 671 pg/mL -- Normal range between ( 0 and 125 ) Troponin I High Sensitivity: 5.9 pg/mL -- Normal range between ( 3.0 and 58.8 ) Coagulation 04/28/2022 10:14 PM INR: 0.9 -- Normal range between ( 0.9 and 1.2 ) PT: 9.9 Second(s) -- Normal range between ( 9.2 and 12.0 ) Endocrinology 04/28/2022 10:14 PM Procalcitonin: <0.25 ng/mL -- Normal range between ( 0.00 and 2.00 ) Iron Studies 04/30/2022 8:06 AM % Iron Saturation: 10.8 % -- Normal range between ( 15.0 and 55.0 ) Ferritin Level: 484.7 ng/mL -- Normal range between ( 8.0 and 252.0 ) TIBC: 295.0 mcg/dL -- Normal range between ( 250.0 and 450.0 ) Iron Level: 32 mcg/dL -- Normal range between ( 50 and 170 ) Vitamin Chemistry 04/30/2022 8:06 AM Folate Level: 7.90 ng/mL -- Normal range between ( 3.10 and 17.50 ) Vitamin B12 Level: 408 pg/mL -- Normal range between ( 193 and 986 ) Diagnostic Radiology 04/28/2022 10:31 PM CR Chest 1 Vw Portable: CR Chest 1 Vw Portable Patient Name:ALYSSA MAYORGA I have received and understand this information and was given the opportunity to ask questions. Patient/Rn Diabetes Educator Name: Patient/Rn Diabetes Educator Signature: Relationship to Patient: Clinician/Hospital Rn Diabetes Educator Signature: Date: documented in this encounter Plan of Treatment Not on file documented as of this encounter Visit Diagnoses Not on filedocumented in this encounter
--- OUTSIDE RECORDS SUMMARY | 2025-02-21 13:34 | XMS_ITS | Encounter Summary ---
Author Organization [employer] Address [address] [place] [id number] Care Team Providers Care It Security Consulting Director Name Role Phone Unavailable Primary Care Provider Unavailabl e Encounter Details Date Type Department Care Team (Late st Contact Info) Description 03/02/2022 Transcribed Document [facility] Family Medicine [address] [place] [address] ProviderFlorentino MD [address] [place] [address] Social History Tobacco Use Types Packs/Day Years Used Date Smoking Tobacco: Never Assessed Comments Unknown Sex and Gender Information Value Date Recorded Sex Assigned at Not on file Legal Sex Female 1:44 PM CDT Gender Identity Not on file Sexual Orientation Not on file documented as of this encounter Miscellaneous Notes * Cerner Conversion Note - Florentino Lynne MD - 03/02/2022 7:38 AM CDT RX Interventions Entered On: 03/02/2022 7:39 EDT Performed On: 03/02/2022 7:38 EDT by Navin Saavedra Pharmacist- Clinical Interventions Chart Review : Yes Navin Saavedra Pharmacist- - 03/02/2022 7:38 EDT Chart Review Chart Review, Order : Pharmacy consult for pip/tazo dosing Chart Review, Response : Accepted Chart Review, Name : GENI ORTIZ MD Chart Review, Notes : Scr inc to 2.7mg/dl. Est crcl <20ml/min. Continue zosyn 2.25g IV q8h. Chart Review, Value : 0 Dollar Chart Review, Time : 20 Minute(s) Navin Saavedra Pharmacist- - 03/02/2022 7:38 EDT Electronically signed by Sum[facility] Conversion Band Tier Cerjami at 12/21/2022 5:02 PM CDT documented in this encounter Plan of Treatment Not on file documented as of this encounter Visit Diagnoses Not on filedocumented in this encounter
--- OUTSIDE RECORDS SUMMARY | 2025-02-21 13:34 | XMS_ITS | Encounter Summary ---
Author Organization [employer] Address [address] [place] [address] Care Team Providers Care Pipe Puller Name Role Phone Unavailable Primary Care Provider Unavailabl e Encounter Details Date Type Department Care Team (Late st Contact Info) Description 03/02/2022 Transcribed Document [facility] [place] Family Medicine [facility] [place] [address] ProviderFlorentino MD [address] [place] [address] Social History Tobacco Use Types Packs/Day Years Used Date Smoking Tobacco: Never Assessed Comments Unknown Sex and Gender Information Value Date Recorded Sex Assigned at Not on file Legal Sex Female 1:44 PM CDT Gender Identity Not on file Sexual Orientation Not on file documented as of this encounter Miscellaneous Notes * Cerner Conversion Note - Florentino Lynne MD - 03/02/2022 8:47 AM CDT Patient: ALYSSA AZUL Age: 61 years Sex: Female : 1960 Associated Diagnoses: None Author: PEÑA VAZQUEZ MD-INF Antibiotics: Zosyn CC: Sacral wound HPI: 02/22/22: Consultation at [facility]: 61 yo female with hx of paraplegia, diabetes, HTN and obesity. Presented to [facility] with complaints of fevers and chills for 1 week prior to admission. Diagnosed with pneumonia and left gluteal wound. Underwent superficial I&D x2 and then suffered a cardiac arrest on 02/20. She was intubated and started on vasopressors. Per family at bedside she had additional operative I&D at local hospital after cardiac arrest. Treated with vancomycin and zosyn. Transferred to [facility] on 02/22 for higher level of care. She arrived intubated, sedated and on vasopressors. Since arrival she has been extubated to BiPAP, 35%. Weaned off vasopressors. T max 99.6. Family member at bedside. Follow by Dr. Pedro Mitchell at [facility] from 02/22-02/23. Dr. Gama Encinas resumed care at [facility] from 02/24 to 03/01 when she was transferred to [facility]. 03/02/22: Transfer to [facility] with initial hospital visit by Dr. Peña Vazquez: In summary, Patient was admitted to [facility] on 02/17 for suspected pneumonia and debridement of left buttock DTI. On 02/21 she had cardiac arrest and was emergently intubated. She was transferred to [facility] on 02/22 for higher level of care. She was extubated on 02/22 and re-intubated later that day. She was extubated again on 02/25, but failed BiPAP on 03/01 and was re-intubated. She was being treated by Dr. Gama Encinas for suspected aspiration pneumonia and left gluteal wound infection with Zosyn. She was transferred to [facility] on 03/01 for pulmonology coverage. The patient [...] PICC line (was present on admission to [facility] on 02/22 and likely placed at OSH) [...] with family and staff - events noted ROS: unable to obtain secondary to critical condition - discussed with staff and family Past Medical History: paraplegia, diabetes, HTN and obesity Past Surgical History: I&D of left gluteal wound at OSH x2 Family History: Unable to confirm Social History: lives in [place] Objective: Vitals Signs (last 24 hrs) Last Charted Minimum Maximum Temp H 100.8 (MAR 02 08:00) 98.9 (MAR 01 20:00) H 101.8 (MAR 02 04:00) Mon HR 90 (MAR 02 08:30) 70 (MAR 02 05:00) 96 (MAR 01 17:50) Resp Rate 16 (MAR 02 08:30) L 10 (MAR 02 06:00) 18 (MAR 01 21:00) SBP 139 (MAR 02 08:30) 109 (MAR 01 19:00) H 150 (MAR 02 05:00) DBP 66 (MAR 02 08:30) L 57 (MAR 01 23:00) 82 (MAR 01 20:15) MAP 95 (MAR 02 08:30) 80 (MAR 02 07:00) 106 (MAR 01 20:15) SpO2 97 (MAR 02 08:30) L 91 (MAR 01 18:00) 100 (MAR 01 19:45) PE: General: Patient sedated on mechanical ventilation HEENT: sclera white without conjunctival injection. No [...] LABS: Labs (Last four charted values) WBC 8.5 [...] diplococci IMAGING: Radiology Results (Last 48 hours) [id number] -- 02/22/2022 00:01 CT Abdomen Pelvis WO [...] agree with the above final transcribed report. [id number] -- 03/01/2022 17:45 CR Chest 1 Vw [...] soft tissue: Status post I&D x3 at [facility]. - Acute hypoxic respiratory failure: Pneumonia & edema - Aspiration pneumonia: clear evidence of aspiration - Pulmonary edema - Cardiac arrest at outside hospital prior to transfer to [facility] - Metabolic acidosis: improved - Acute kidney failure on reported CKD, unknown stage (likely Stage III) - Acute encephalopathy: now sedated - Neutrophilic leukocytosis: resolved - Anemia, ongoing. ?chronic - Chronic paraplegia - Obesity - DM2 RECOMMENDATIONS/PLANS: -Continue supportive care now on vent and wound VAC in place - Follow CBC, CMP, CRP, - Continue Zosyn, renally dosed We will continue to follow We spent greater than 35 minutes on review of chart and continuity of care. Peña Vazquez MD saw and examined patient, verified findings, reviewed labs and radiographic data, formulated differential diagnosis, plan for treatment, and all medical decision making. Bertrand Chambers PA-C/for Dr. Peña Vazquez Called local hospital for their cultures Had level of care discussion with family discussed with staff Long discussion with patient and family UM- discussed with staff Risks and benefits of antibiotics and IV access discussed At risk for secondary events and progression of this infection Medicines reviewed X-rays seen Prognosis poor Thanks for this consultation, we will follow closely with you. documented in this encounter Plan of Treatment Not on file documented as of this encounter Visit Diagnoses Not on filedocumented in this encounter
--- OUTSIDE RECORDS SUMMARY | 2025-02-21 13:34 | XMS_ITS | Encounter Summary ---
Author Organization [employer] Address [address] [place] [address] Care Team Providers Care Tactical Intelligence Officer Name Role Phone Unavailable Primary Care Provider Unavailabl e Encounter Details Date Type Department Care Team (Late st Contact Info) Description 03/03/2022 Transcribed Document [facility] Family Medicine [address] [place] [address] ProviderFlorentino MD [address] [place] [address] Social History Tobacco Use Types Packs/Day Years Used Date Smoking Tobacco: Never Assessed Comments Unknown Sex and Gender Information Value Date Recorded Sex Assigned at Not on file Legal Sex Female 1:44 PM CDT Gender Identity Not on file Sexual Orientation Not on file documented as of this encounter Miscellaneous Notes * Cerner Conversion Note - Florentino ProviderMD - 03/03/2022 8:51 AM CDT Patient: ALYSSA AZUL Age: 61 years Sex: Female : 1960 Associated Diagnoses: None Author: JAMILAH GEORGES MD Basic Information Pulmonary/CCM Consultation Note Date of Admission: 03/01/22 Date of Consultation: 03/01/22 Referring Provider: Elaine Ramires MD ([facility]) Reason for Consultation: Ventilator/CCM CC: Unobtainable History of Present Illness: This is a 61-year-old female with underlying medical history including paraplegia, CKD, stage III, T2DM, and HTN. At time of evaluation, patient is intubated, sedated, and on ventilator support and both son and kojhxevx-of-hyx are present at bedside to give some medical background; therefore, history and hospital course is primarily retrieved from them and through medical chart review. In summary, patient was admitted to [facility] on 02/17/22 with symptoms including dyspnea, [...] higher level care, she was transferred to [facility] on 02/22. Patient was extubated on [...] Family History Unable to obtain ICU Day: 2 Vent Day: 3 (02/21-; 03/01-presently intubated) 03/02: Patient intubated, hemodynamically [...] bedside, no acute changes or events overnight. Intake & Output Totals Last 24 Hours (7a-7a) Intake (73 Events) Continuous Infusions (845.7691 mL) Medications (247.03 mL) Output (8 Events) Valenzuela Catheter (1500 mL) Other Output (400 mL) Input Total: 1092.7991 mL Output Total: 1900 mL Balance: -807.2009 mL Review of Systems Unable to obtain Health Status Allergies: Allergic Reactions (All) No Known Allergies, Allergies (1) Active Reaction [...] oral tablet: Tab, Oral, Daily, 0 Refill(s) Bard-3 1000 mg oral capsule: Cap, Oral, QID, [...] oral tablet: Tab, Oral, Daily, 0 Refill(s), Medications (23) Active Scheduled: (10) acetylcysteine 20% [...] History of obstructive sleep apnea / IMO [id number] / Confirmed, Active Problems (5) Chronic kidney disease (CKD), stage III (moderate) Diabetes History of obstructive sleep apnea Hyperlipidemia Hypertension Physical Examination VS/Measurements Vitals Signs (last 24 hrs) Last Charted Minimum Maximum Temp 98.1 (MAR 03 04:00) 98.1 (MAR 03 04:00) H 101.7 (MAR 02 10:30) Mon HR 69 (MAR 03 06:00) 56 (MAR 02 22:00) 90 (MAR 02 09:00) Resp Rate 16 (MAR 03 06:00) L 0 (MAR 02 10:45) H 52 (MAR 02 11:57) SBP 127 (MAR 03 06:00) 109 (MAR 02 12:30) H 221 (MAR 02 16:45) DBP 67 (MAR 03 06:00) 60 (MAR 02 09:00) H 93 (MAR 02 20:00) MAP 91 (MAR 03 06:00) 80 (MAR 02 12:30) 133 (MAR 02 20:00) SpO2 100 (MAR 03 06:00) 95 (MAR 02 09:45) 100 (MAR 02 16:49) Intake & Output Totals Last 24 Hours (7a-7a) Intake (73 Events) Continuous Infusions (845.7691 mL) Medications (247.03 mL) Output (8 Events) Valenzuela Catheter (1500 mL) Other Output (400 mL) Input Total: 1092.7991 mL Output Total: 1900 mL Balance: -807.2009 mL General: Intubated, sedated, on MV. Arousable, alert, following commands. RASS -1/-2.. Eye: [...] review: Labs (Last four charted values) WBC 6.4 [...] (MAR 02) L 2.4 (MAR 01) . Radiology Results (Last 48 hours) [id number] -- 02/22/2022 00:01 CT Abdomen Pelvis WO [...] by Dr. Julio Cesar Russell.Transcribed by Jorgito Nicolsa.I have personally viewed, interpreted and dictated the examination. Ihave read and agree with the above final transcribed report. [id number] -- 03/01/2022 17:45 CR Chest 1 Vw [...] interpreted, and dictated by Dr. Julio Cesar Russlel.Transcribed by Jorgito Nicolas.I have personally viewed, interpreted [...] transcribed report. Impression and Plan Impression: Pulmonary Acute hypoxic respiratory failure, on MV PNA, [...] Baseline paraplegia Baseline mentation not observed Renal Bscei-wk-QIE -- improving Electrolyte abnormalities Hyperchloremia Endocrine T2DM Glycemic control Hematology/Oncology Leukocytosis Plan: -Vent bundle. Wean FiO2, for goal saturation >90%. During rounds patient was on 5 of PEEP and 40% FiO2, spoke to the nurse at the bedside and will DC propofol and proceed to breathing trial. Spoke to RT at the bedside and will do a breathing trial 15 minutes after stopping the propofol. -Chest x-ray reviewed independently showing improvement of left lung opacity still bilateral lower lobe opacities differentials include atelectasis/pneumonia/bilateral pleural effusion. We will send for ultrasound chest. -CT chest from 03/01/2022 reviewed showed RLL [...] ejection fraction 55% grade 2 diastolic dysfunction. -Sedation: On Propofol/Fentanyl. Titrate to RASS goal 0. Wean today for SBT. -SBTs/SATs, as able. -DuoNebs Q6h. -Pulmicort nebs BID. -Mucinex 400mg Q6h, due to thick secretions from ET tube. -Chest PT QID. -Mucomyst nebs x3d. -Encourage IS/FVD, when extubated. -Hemodynamics: Stable. -Echocardiogram from OSH reviewed. -BLE venous duplex 03/02: Negative for SVT/DVT bilaterally. -ID following. -Current antibiotics per ID: Zosyn. -PNA PCR panel: Klebsiella, Staph Aureus -Trend infectious markers. If she becomes afebrile or leukocytosis worsens, will order new blood/urine cultures. -Bowel regimen: Senna/Colace -Nephrology consulted per primary, appreciate input. -IVF: D5+1/2NS at 75cch x1 time -- completed. -Monitor hydration status. -Trend SCr/BUN. -Avoid nephrotoxic agents. -Consider STAFF OCCUPATIONAL THERAPIST consult for Swallow evaluation, once extubated. -Glycemic control: per primary. -Nutrition: NPO except for meds. Patient may need Corpak placed in addition to TF initiation should she remain on MV. -GI prophylaxis: Pepcid. -VTE prophylaxis: Heparin SQ. AM imaging/labs ordered. CODE STATUS: Full Code Disposition: ICU Addendum: Today on 03/03, 10:45 AM. Family meeting: I spoke to the son and the djpvzkaw-ee-okp at the bedside explained the findings of the CAT scan as well as the x-ray and the fact that patient does have pneumonia with Klebsiella so the findings of the chest x-ray and the CAT scan could be reactive lymphadenopathy with pulmonary infiltrate secondary to bacterial infection versus others. Reviewing the patient's chart patient had a bronchoscopy done on 02/21/2022 I shared the results of the report from the bronchoscopy with the family and the fact that no evidence of bleeding or mucous plugging in the right mainstem bronchial airway appears normal with some erythematous and fragile mucosa. No mention of any findings in the right main bronchus or elsewhere during the bronchoscopy other than this. Based on this information I gave the family the option of wait and repeat CAT scan in 6 weeks if the lymphadenopathy and opacity persist then patient will need a bronc and EBUS and I believe this is the more recommended route versus doing a bronchoscopy now given patient on the mechanical ventilation to evaluate the right main bronchus and the rest of the airways. Family would like to think about it at this point. I recommended the family to not proceed with a bronchoscopy at this point and will follow with a CAT scan in 6 weeks and further evaluate as outpatient. I explained to the family the hilar opacity, bilateral pleural effusion by drawing on the board, questions or concerns were addressed. Patient was placed on breathing trial in the afternoon, evaluating the vent at the bedside patient takes tidal volume less than 300, at this point will place patient back on AC mode. Spoke to RT at the bedside and plan of care was updated I have personally evaluated the patient; Obtained history, performed physical examination, reviewed laboratory studies. I have reviewed images independent of radiologist. I have actively directed the medical care, formulated diagnosis, and the plan of care. Patient requires a high complexity of decision making for assessment. 76 minutes critical care time excluding procedures. documented in this encounter Plan of Treatment Not on file documented as of this encounter Visit Diagnoses Not on filedocumented in this encounter
--- OUTSIDE RECORDS SUMMARY | 2025-02-21 13:34 | XMS_ITS | Encounter Summary ---
Author Organization [employer] Address [address] [place] [address] Care Team Providers Care Nurse Esthetician Name Role Phone Unavailable Primary Care Provider Unavailabl e Encounter Details Date Type Department Care Team (Late st Contact Info) Description 03/02/2022 Transcribed Document [facility] Family Medicine [address] [place] [address] ProviderFlorentino MD [address] [place] [address] Social History Tobacco Use Types Packs/Day Years Used Date Smoking Tobacco: Never Assessed Comments Unknown Sex and Gender Information Value Date Recorded Sex Assigned at Not on file Legal Sex Female 1:44 PM CDT Gender Identity Not on file Sexual Orientation Not on file documented as of this encounter Miscellaneous Notes * Cerner Conversion Note - Florentino Lynne MD - 03/02/2022 11:55 AM CDT Patient: ALYSSA AZUL Age: 61 years Sex: Female : 1960 Associated Diagnoses: None Author: MARGARETH MANRIQUEZ MD Subjective Transfer[facility] Intubated and on vent. Health Status Allergies: Allergic Reactions (Selected) No Known Allergies, Allergies (1) Active Reaction No Known Allergies None Documented Current medications: (Selected) Inpatient Medications Ordered D5-0.45NaCl 1,000 mL: 75 mL/Hr, IntraVENous, Stop: 03/02/22 12:35:00 EDT Dextrose 50% injection: 12.5 Gram, IV Push, [...] mg, IV Push, Q6H, PRN: Hypertension insulin regular sliding scale: Scale C, SubCutaneous, Q6H morphine: 2 mg, IV Push, Q2H, PRN: Pain (Severe 7-10) propofol injection 1,000 mg + Premix Diluent for Drip 100 mL: TITRATE, IntraVENous senna: 8.8 mg, Oral, At Bedtime Documented Medications Documented Farxiga 10 mg oral tablet: Tab, Oral, Daily, 0 Refill(s) [place]-3 1000 mg oral capsule: Cap, Oral, QID, [...] Oral, Daily metFORMIN 1,000 mg, Oral, BID [place]-3 1000 mg oral capsule , Oral, QID pravastatin 40 mg oral tablet , Oral, Daily , Medications (23) Active Scheduled: (9) acetylcysteine 20% liq 4 mL 1 mL, [...] 5,000 Units 1 mL, SubCutaneous, Q8H insulin regular 1 unit/0.01 mL inj 3mL Scale C, SubCutaneous, Q6H piperacillin-tazobactam + NaCl 0.9% 50 mL 2.25 Gram, IV Piggyback, Q8HInt senna 8.8 mg/5 mL liq 8.8 mg 5 mL, Oral, At Bedtime Continuous: (3) D5w/NaCl 0.45% 1,000 mL 1,000 mL, IntraVENous, 75 mL/Hr fentaNYL/NaCl 0.9% 2,000 mcg + Premix Diluent [...] History of obstructive sleep apnea / IMO [id number] / Confirmed, Active Problems (6) Chronic kidney disease (CKD), stage III (moderate) Diabetes History of obstructive sleep apnea Hyperlipidemia Hypertension Type 1 diabetes with stage 3 chronic kidney disease moderate GFR 30-59 Objective VS/Measurements Measurements from flowsheet : Measurements 03/02/2022 4:05 EDT Routine Weight Source Bed scale Routine Weight Entry Format Metric Routine Weight, Kilograms 93.3 kg 03/01/2022 17:29 EDT Height Source Chart Height Entry Format [place] Height/Length, CZECH (ft) 5 ft Height/Length CZECH 4 Inch CLINICALHEIGHT 162.56 cm [place] Body Weight 54 kg Weight Source Bed scale Weight Entry Format Metric, kilograms Weight METRIC kg 90 kg CLINICALWEIGHT 90 kg Body Surface Area (BSA) 1.95 m2 Body Mass Index 34.1 kg/m2 HI , Vitals Signs (last 24 hrs) Last Charted Minimum Maximum Temp H 100.6 (MAR 02 11:20) 98.9 (MAR 01 20:00) H 101.8 (MAR 02 04:00) Mon HR 81 (MAR 02 10:44) 70 (MAR 02 05:00) 96 (MAR 01 17:50) Resp Rate L 10 (MAR 02 10:44) L 10 (MAR 02 06:00) 18 (MAR 01 21:00) SBP H 149 (MAR 02 10:44) 109 (MAR 01 19:00) H 173 (MAR 02 09:45) DBP 76 (MAR 02 10:44) L 57 (MAR 01 23:00) 82 (MAR 01 20:15) MAP 103 (MAR 02 10:44) 80 (MAR 02 07:00) 116 (MAR 02 09:45) SpO2 98 (MAR 02 10:44) L 91 (MAR 01 18:00) 100 (MAR 01 19:45) Intake & Output Totals Last 24 Hours (7a-7a) Intake (42 Events) Continuous Infusions (724.2617 mL) Medications (197.01 mL) Other Intake (60 mL) Output (6 Events) Valenzuela Catheter (1400 mL) Other Output (800 mL) Input Total: 981.2717 mL Output Total: 2200 mL Balance: -1218.7283 mL Physical exam contact may be limited [...] Review Labs (Last four charted values) WBC 8.5 [...] distress - Pneumonia on vent. Plan: - Albumin infusion to support BP - Monitor I/o - Avoid nephrotoxic agents. - Adjust meds per renal function - No emergent need of VOLUNTEER SERVICES SUPERVISOR. High risk and complexity patient. documented in this encounter Plan of Treatment Not on file documented as of this encounter Visit Diagnoses Not on filedocumented in this encounter
--- OUTSIDE RECORDS SUMMARY | 2025-02-21 13:34 | XMS_ITS | Encounter Summary ---
Author Organization [employer] Address [address] [place] [address] Care Team Providers Care Founder President And Ceo Name Role Phone Unavailable Primary Care Provider Unavailabl e Encounter Details Date Type Department Care Team (Late st Contact Info) Description 04/08/[address] [facility] Family Medicine [address] [place] [address] ProviderFlorentino MD [address] [place] [address] Social History Tobacco Use Types Packs/Day Years Used Date Smoking Tobacco: Never Assessed Comments Unknown Sex and Gender Information Value Date Recorded Sex Assigned at Not on file Legal Sex Female 1:44 PM CDT Gender Identity Not on file Sexual Orientation Not on file documented as of this encounter Miscellaneous Notes * Cerner Conversion Note - Florentino ProviderMD - 04/08/2022 6:36 PM CDT Event Note Entered On: 04/08/2022 18:37 EDT Performed On: 04/08/2022 18:36 EDT by Enedina Garcia Rn, Rn Event Note Event Date/Time : 04/08/2022 11:00 EDT Event Location : Assigned room Event Details : Other: 4 eyes in 4 hours Description of Event : I agree with the skin assessment upon admission performed by PRIMO Cage Barbara Rn, Rn - 04/08/2022 18:36 EDT documented in this encounter Plan of Treatment Not on file documented as of this encounter Visit Diagnoses Not on filedocumented in this encounter
--- OUTSIDE RECORDS SUMMARY | 2025-02-21 13:34 | XMS_ITS | Encounter Summary ---
Author Organization [employer] Address [address] [place] [address] Care Team Providers Care Immigration Case Manager Name Role Phone Unavailable Primary Care Provider Unavailabl e Encounter Details Date Type Department Care Team (Late st Contact Info) Description 03/10/2022 Transcribed Document [facility] [place] [facility] Family Medicine [facility] [place] [address] ProviderFlorentino MD [facility] [place] [address] Social History Tobacco Use Types Packs/Day Years Used Date Smoking Tobacco: Never Assessed Comments Unknown Sex and Gender Information Value Date Recorded Sex Assigned at Not on file Legal Sex Female 1:44 PM CDT Gender Identity Not on file Sexual Orientation Not on file documented as of this encounter Miscellaneous Notes * Cerner Conversion Note - Florentino Lynne MD - 03/10/2022 9:00 AM CDT [facility] Inpatient Documentation Entered On: 03/10/2022 11:22 EDT Performed On: 03/10/2022 9:20 EDT by Edwina Fraire LPNILV-MJC-Shtyrvwdeco Therapy WO Admission Date : Admit Date 03/01/2022 17:[address] : No diagnoses found. Reason for WOCN Visit : Assessment, ongoing, Dressing change Admitting Diagnosis ST : Reason for Admission ACUTE RESP FAILURE WOCN Assessment Summary : Wound care team consulted to NPWT to left treocanter. Wound care steam conditioning operator at bedisde patient on sport surface. Staff nurse at bedside to assist with turning patient. Wound care steam conditioning operator removed old dressing 2 pcs angel foam and cleansed with saline wound wash, pat dry, measured at 13.0cmx6.0cmx2.5cm, prepped periwound skin with barrier film and draped, wound care steam conditioning operator placed 2 pcs angel foam in wound bed and draped. Veroflo operating at 125 mmHg. If any chanes to skin intergrity please consult wound care dept. Edwina Fraire, DCF-LUR-Gwkisyvcpjs Therapy - 03/10/2022 11:14 EDT documented in this encounter Plan of Treatment Not on file documented as of this encounter Visit Diagnoses Not on filedocumented in this encounter
--- OUTSIDE RECORDS SUMMARY | 2025-02-21 13:34 | XMS_ITS | Encounter Summary ---
Author Organization [employer] Address [address] [place] [address] Care Team Providers Care Data Center Consultant Name Role Phone Unavailable Primary Care Provider Unavailabl e Encounter Details Date Type Department Care Team (Late st Contact Info) Description 03/02/2022 Transcribed Document [facility] Family Medicine [facility] [place] [address] ProviderFlorentino MD [address] [place] [address] Social History Tobacco Use Types Packs/Day Years Used Date Smoking Tobacco: Never Assessed Comments Unknown Sex and Gender Information Value Date Recorded Sex Assigned at Not on file Legal Sex Female 1:44 PM CDT Gender Identity Not on file Sexual Orientation Not on file documented as of this encounter Miscellaneous Notes * Cerner Conversion Note - Florentino Lynne MD - 03/02/2022 10:21 AM CDT Event Note Entered On: 03/02/2022 10:22 EDT Performed On: 03/02/2022 10:21 EDT by Carolyn Heath Rn Event Note Event Date/Time : 03/01/2022 12:54 EDT Event Location : Assigned room Event Details : Hetal blue Description of Event : The patient's oxygen saturation decreased to 83% while RN was in the room. Patient was wearing bipap. The respiratory department was notified, the FINAL INSPECTOR PAPER nurse was called, then the rapid response team was summoned. Once the FINAL INSPECTOR PAPER nurse arrived, the patient's HR went to 0, O2 was 30% and chest compressions were started. Hetal ayala was called by another nurse. Patient regained pulse at 50bpm at first pulse check. Etomidate 20 was administered at 1301. Patient was intubated at 1302. No sounds could be ausculated and the tube was pulled. Epi was administered at 1304. Patient was intubated again at 1306. ET 22 at teeth. Emergency XR ordered to confirm placement and patient sent to ED with FINAL INSPECTOR PAPER nurse to await transfer to [facility]. Carolyn Heath Rn - 03/02/2022 10:21 EDT documented in this encounter Plan of Treatment Not on file documented as of this encounter Visit Diagnoses Not on filedocumented in this encounter
--- OUTSIDE RECORDS SUMMARY | 2025-02-21 13:34 | XMS_ITS | Encounter Summary ---
Author Organization [employer] Address [address] [place] [address] Care Team Providers Care Marketing Operations Manager Name Role Phone Unavailable Primary Care Provider Unavailabl e Encounter Details Date Type Department Care Team (Late st Contact Info) Description 03/10/2022 Transcribed Document [facility] [place] [address] [place] [address] ProviderFlorentino MD [address] [place] [address] Social History Tobacco Use Types Packs/Day Years Used Date Smoking Tobacco: Never Assessed Comments Unknown Sex and Gender Information Value Date Recorded Sex Assigned at Not on file Legal Sex Female 1:44 PM CDT Gender Identity Not on file Sexual Orientation Not on file documented as of this encounter Miscellaneous Notes * Cerner Conversion Note - Florentino ProviderMD - 03/10/2022 12:22 PM CDT Patient: ALYSSA AZUL Age: 61 Years Sex: Female : 1960 Subjective DOS: 03/10/2022 Pt seen and examined at bedside. Much improved. Extubated since 03/08, off drips, off sedation, awake, alert communicative, responsive, following commands, on CPAP overnight . May transfer tomorrow to floor. Vital Signs T: 36.7 ??C TMIN: 36.7 ??C TMAX: 36.8 ??C HR: 82(Monitored) RR: 29 BP: 146/87 SpO2: 97% HT: 162.56 cm WT: 93.5 kg BMI: 35.38 Oxygen Settings (Last) Oxygen Therapy Mode: Nasal cannula (03/10/22 07:52:00) Oxygen Flow Rate: 4 Liter/Min (03/10/22 07:52:00) Intake & Output Totals Last 24 Hours (7a-7a) Input Total: 2533.14 mL Output Total: 2950 mL Balance: -416.86 mL Physical Exam General: No acute distress, AAOx3 Eye: Pupils are equal, round and reactive to light, Normal conjunctiva. HENT: Normocephalic, old heeled trach site in place. Neck: Supple. Respiratory: Mechanical ventilation. no wheezing or rhonchi. Cardiovascular: Normal rate, Regular rhythm, Gastrointestinal: RLQ urostomy in place with clear urine. Musculoskeletal: LEFT lateral hip wound vac in place. Neurologic: Alert, [...] appreciated- recommend wound care consult - d/w pedigree researcher today- wound vac applied on 02/24 pneumonia [...] the patient due to divert status. Summary [facility] stay: patient admitted to [facility] on 02/17/22, temp in ER of [...] necrosis. no pathology sent. Patient transferred to [facility] at midnight on 02/22. 02/22: extubated, given [...] PCR panel: Klebsiella, Staph Aureus. Hypokalemia, repleted 03/05 nephro follwoing, Had bronchoscopy 03/04 by pulm, ID follwoing. repeat labs and monitor 03/06 still critically in ICU. nephro, ID, and pulm following. 03/07 still critically in ICU. nephro, ID, and pulm following. repeat labs and monitor 03/08 still critically in ICU. nephro, ID, and pulm following. repeat labs and monitor. increased basal insulin from 12 to 18 units for optimal glycemic control 03/09 May transfer to floor tomorrow if remains stable. Nephro and ID still following. increased basal insulin from 18 to 22 units for optimal glycemic control 03/10 May transfer to floor tomorrow if remains stable. Nephro and ID still following. increased basal insulin from 22 to 28 units for optimal glycemic control. Echo reviewed Disposition: critically ill, in ICU, high risk and complexity patient pending consultants' recommendations, discharge is uncertain at this time [3] VTE Prophylaxis - Medical Heparin 5,000 Units, SubCutaneous, Inj, Q8H, Routine, Start 03/01/22 22:00:00 EDT, 03/01/22 19:01:00 EDT (GENI ORTIZ) Sequential Compression Device Start: 03/01/22 19:03:00 EDT, Bilateral, Length: Knee High, While patient is in bed, [facility] Sequential Compression Device Start: 03/01/22 18:51:00 EDT, Bilateral, Length: Knee High, While patient is in bed, Continuous [facility]) Medications acetaminophen, 650 mg= 2 Tab, Oral, Q6H, PRN albumin human 25% intravenous solution, 25 Gram= [...] 3 mL, Nebulized Inhalation , RT_Q6H, PRN glucagon, 1 mg= 1 mL, IntraMuscular, Q15Min, [...] mEq= 3 Tab, Oral, Q2H, PRN potassium bicarbonate 20 mEq oral tablet, effervescent, 60 mEq= 3 Tab, Oral, 1-Time potassium chloride 10 mEq/50 mL intravenous solution, 10 mEq= 50 mL, IV Piggyback, Q1H, PRN potassium chloride 20 mEq oral tablet, extended release, 20 mEq= 1 Tab, Oral, Q2H, PRN potassium chloride 20 mEq oral tablet, extended release, 60 mEq= 3 Tab, Oral, Q2H, PRN Pulmicort Respules, 0.5 mg= 2 mL, Nebulized Inhalation , RT_BID senna, 8.8 mg= 5 mL, Oral, At Bedtime sodium phosphate sodium phosphate Zofran, 4 mg= 2 mL, IV Push, Q6H, PRN Zosyn + Dextrose 5% in Water intravenous solution 50 mL Lab Results Test Name Test Result Date/Time pH Art 7.36 03/10/2022 06:46 EDT pCO2 Art 50.0 mmHg (High) 03/10/2022 06:46 EDT pO2 Art 103.0 mmHg (High) 03/10/2022 06:46 EDT HCO3 Art 28.3 mmol/L (High) 03/10/2022 06:46 EDT BE Art 2.5 mmol/L (High) 03/10/2022 06:46 EDT sO2 Art >99.1 % 03/10/2022 06:46 EDT tHb Art 7.3 Gram/dL (Low) 03/10/2022 06:46 EDT FHHb <2.4 % 03/10/2022 06:46 EDT FIO2 Art 35 03/10/2022 06:46 EDT Delivery Device Type Art CPAP 03/10/2022 06:46 EDT Temperature, F Art 98.6 Deg F 03/10/2022 06:46 EDT Art Blood Gas (ABG) Site Arterial Line 03/10/2022 06:46 EDT Acceptable Huang's Test Art Non-Applicable 03/10/2022 06:46 EDT Ventilator Mode Art N/A 03/10/2022 06:46 EDT Respiratory Rate Art 24.0 03/10/2022 06:46 EDT CPAP/PEEP Art 6.0 cmH2O 03/10/2022 06:46 EDT ABG Num of Draw Attempts 1 03/10/2022 06:46 EDT PaO2/FiO2 calculated 294 03/10/2022 06:46 EDT Sodium Level 141 mmol/L 03/10/2022 02:39 EDT Potassium Level 3.3 mmol/L (Low) 03/10/2022 02:39 EDT Chloride Level 108 mmol/L 03/10/2022 02:39 EDT Carbon Dioxide Level 27 mmol/L 03/10/2022 02:39 EDT Anion Gap 9 03/10/2022 02:39 EDT Glucose Level 253 mg/dL (High) 03/10/2022 02:39 EDT Blood Urea Nitrogen 41 mg/dL (High) 03/10/2022 02:39 EDT Creatinine Level 1.80 mg/dL (High) 03/10/2022 02:39 EDT eGFR 35 mL/min/1.73m2 (Low) 03/10/2022 02:39 EDT eGFR NonAfrican 29 mL/min/1.73m2 (Low) 03/10/2022 02:39 EDT Bun/Creatinine 21.6 (High) 03/10/2022 02:39 EDT Calcium Level 9.0 mg/dL 03/10/2022 02:39 EDT Protein Total 6.9 Gram/dL 03/10/2022 02:39 EDT Albumin Level 2.8 Gram/dL (Low) 03/10/2022 02:39 EDT Globulin 4.1 Gram/dL 03/10/2022 02:39 EDT A/G Ratio 0.7 (Low) 03/10/2022 02:39 EDT Bilirubin Total 0.5 mg/dL 03/10/2022 02:39 EDT Alk Phos 39 Units/Liter 03/10/2022 02:39 EDT AST 6 Units/Liter 03/10/2022 02:39 EDT ALT 9 Units/Liter (Low) 03/10/2022 02:39 EDT Magnesium Level 2.1 mg/dL 03/10/2022 02:39 EDT Phosphorus 3.0 mg/dL 03/10/2022 02:39 EDT Device Comment 1 Notified Nurse RBV 03/10/2022 12:08 EDT Device Comment 1 Notified Nurse RBV 03/10/2022 05:33 EDT Device Comment 1 Notified Nurse RBV 03/09/2022 23:34 EDT Device Comment 1 Notified Nurse RBV 03/09/2022 18:00 EDT Glucose POC2 225 mg/dL (High) 03/10/2022 12:08 EDT Glucose POC2 228 mg/dL (High) 03/10/2022 05:33 EDT Glucose POC2 251 mg/dL (High) 03/09/2022 23:34 EDT Glucose POC2 252 mg/dL (High) 03/09/2022 18:00 EDT CRP 7.07 mg/dL (High) 03/10/2022 02:39 EDT WBC 4.8 K/uL 03/10/2022 02:39 EDT RBC 2.62 Million/uL (Low) 03/10/2022 02:39 EDT Hgb 7.4 g/dL (Low) 03/10/2022 02:39 EDT Hct 23.8 % (Low) 03/10/2022 02:39 EDT MCV 90.8 fL 03/10/2022 02:39 EDT MCH 28.2 pg 03/10/2022 02:39 EDT MCHC 31.1 Gram/dL (Low) 03/10/2022 02:39 EDT Platelet Count 131 K/uL (Low) 03/10/2022 02:39 EDT MPV 11.6 fL 03/10/2022 02:39 EDT RDW 15.8 % (High) 03/10/2022 02:39 EDT Neut % 72.5 % (High) 03/10/2022 02:39 EDT Neut # 3.47 K/uL 03/10/2022 02:39 EDT Lymph % 12.6 % (Low) 03/10/2022 02:39 EDT Lymph # 0.60 x10(3)/uL (Low) 03/10/2022 02:39 EDT [place] % 8.2 % 03/10/2022 02:39 EDT [place] # 0.39 K/uL 03/10/2022 02:39 EDT Eos % 4.0 % 03/10/2022 02:39 EDT Eos # 0.19 x10(3)/uL 03/10/2022 02:39 EDT Baso % 1.0 % 03/10/2022 02:39 EDT Baso # 0.05 x10(3)/uL 03/10/2022 02:39 EDT Slide Review No 03/10/2022 02:39 EDT IG# 0.08 x10(3)/uL (High) 03/10/2022 02:39 EDT IG% 1.70 % (High) 03/10/2022 02:39 EDT Procalcitonin 0.85 ng/mL 03/10/2022 02:39 EDT documented in this encounter Plan of Treatment Not on file documented as of this encounter Visit Diagnoses Not on filedocumented in this encounter
--- OUTSIDE RECORDS SUMMARY | 2025-02-21 13:34 | XMS_ITS | Encounter Summary ---
Author Organization [employer] Address [address] [place] [id number] Care Team Providers Care Adjuster Leader Name Role Phone Unavailable Primary Care Provider Unavailabl e Encounter Details Date Type Department Care Team (Late st Contact Info) Description 04/08/2022 Transcribed Document [facility] [place] Family Medicine [address] [place] [address] ProviderFlorentino MD [address] [place] [address] Social History Tobacco Use Types Packs/Day Years Used Date Smoking Tobacco: Never Assessed Comments Unknown Sex and Gender Information Value Date Recorded Sex Assigned at Not on file Legal Sex Female 1:44 PM CDT Gender Identity Not on file Sexual Orientation Not on file documented as of this encounter Miscellaneous Notes * Cerner Conversion Note - Florentino ProviderMD - 04/08/2022 4:29 PM CDT Consult Phone Call Documentation Entered On: 04/09/2022 1:04 EDT Performed On: 04/08/2022 16:29 EDT by Helen Sesay Monitor Tech-Health Unit Coord Phone Call for Consults Consult Phone Call/Page Attempt : First call Helen Sesay Monitor Tech-Health Unit Coord - 04/09/2022 1:04 EDT documented in this encounter Plan of Treatment Not on file documented as of this encounter Visit Diagnoses Not on filedocumented in this encounter
--- OUTSIDE RECORDS SUMMARY | 2025-02-21 13:34 | XMS_ITS | Encounter Summary ---
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 Name Role Phone Unavailable Primary Care Provider Unavailabl e Encounter Details Date Type Department Care Team (Late st Contact Info) Description 03/10/2022 Transcribed Document [facility] [place] [address] [place] [address] ProviderFlorentino MD [address] [place] [address] Social History Tobacco Use Types Packs/Day Years Used Date Smoking Tobacco: Never Assessed Comments Unknown Sex and Gender Information Value Date Recorded Sex Assigned at Not on file Legal Sex Female 1:44 PM CDT Gender Identity Not on file Sexual Orientation Not on file documented as of this encounter Miscellaneous Notes * Cerner Conversion Note - Florentino Lynne MD - 03/10/2022 4:44 PM CDT Patient: ALYSSA AZUL Age: 61 years Sex: Female : 1960 Associated Diagnoses: None Author: VINNIE SWEENEY MD Subjective No complaint, no overnight issues. Denies chest pain or shortness of breath. Health Status Allergies: Allergic Reactions (Selected) No [...] docusate sodium: 100 mg, Feeding Tube, Daily ferrous sulfate: 325 mg, Oral, BID With [...] 1 Tab, Oral, At Bedtime , Medications (40) Active Scheduled: (14) albuterol-ipratropium inh 3 mL [...] History of obstructive sleep apnea / IMO [id number] / Confirmed, Active Problems (5) Chronic kidney disease (CKD), stage III (moderate) Diabetes History of obstructive sleep apnea Hyperlipidemia Hypertension Objective VS/Measurements Vital Signs/Vital Measures 03/10/2022 15:09 EDT Heart Rate Monitored 81 [...] 22 Breaths/Min HI Oxygen Saturation 98 % 03/09/2022 23:25 EDT Heart Rate Monitored 83 bpm Respiratory Rate 23 Breaths/Min HI Oxygen Saturation 99 % Oxygen Therapy Mode CPAP FiO2 35 % 03/09/2022 23:00 EDT Systolic Blood Pressure 171 mmHg HI Diastolic Blood Pressure 72 mmHg Mean Arterial Pressure (MAP)-BMDI 104 Systolic BP, Arterial Line 2 143 mmHg HI Diastolic BP, Arterial Line 2 50 mmHg LOW Mean Arterial Pressure, Line 2 79 mmHg 03/09/2022 22:30 EDT Systolic Blood Pressure 130 mmHg Diastolic Blood Pressure 66 mmHg Mean Arterial Pressure (MAP)-BMDI 92 Systolic BP, Arterial Line 2 135 mmHg Diastolic BP, Arterial Line 2 49 mmHg LOW Mean Arterial Pressure, Line 2 76 mmHg Heart Rate Monitored 80 bpm Respiratory Rate 22 Breaths/Min HI Oxygen Saturation 98 % 03/09/2022 22:00 EDT Systolic Blood Pressure 130 mmHg Diastolic Blood Pressure 66 mmHg Mean Arterial Pressure (MAP)-BMDI 92 Systolic BP, Arterial Line 2 137 mmHg Diastolic BP, Arterial Line 2 54 mmHg LOW Mean Arterial Pressure, Line 2 79 mmHg Heart Rate Monitored 87 bpm Respiratory Rate 23 Breaths/Min HI Oxygen Saturation 98 % 03/09/2022 21:30 EDT Systolic Blood Pressure 134 mmHg Diastolic Blood Pressure 59 mmHg LOW Mean Arterial Pressure (MAP)-BMDI 85 Systolic BP, Arterial Line 2 131 mmHg Diastolic BP, Arterial Line 2 47 mmHg LOW Mean Arterial Pressure, Line 2 70 mmHg Heart Rate Monitored 83 bpm Respiratory Rate 20 Breaths/Min Oxygen Saturation 98 % 03/09/2022 21:00 EDT Systolic Blood Pressure 134 mmHg Diastolic Blood Pressure 59 mmHg LOW Mean Arterial Pressure (MAP)-BMDI 85 Systolic BP, Arterial Line 2 121 mmHg Diastolic BP, Arterial Line 2 44 mmHg LOW Mean Arterial Pressure, Line 2 66 mmHg Heart Rate Monitored 83 bpm Respiratory Rate 20 Breaths/Min Oxygen Saturation 97 % 03/09/2022 20:30 EDT Systolic Blood Pressure 147 mmHg HI Diastolic Blood Pressure 70 mmHg Mean Arterial Pressure (MAP)-BMDI 100 Systolic BP, Arterial Line 2 132 mmHg Diastolic BP, Arterial Line 2 50 mmHg LOW Mean Arterial Pressure, Line 2 75 mmHg Heart Rate Monitored 96 bpm Respiratory Rate 25 Breaths/Min HI Oxygen Saturation 96 % 03/09/2022 20:00 EDT Systolic BP, Arterial Line 2 128 mmHg Diastolic BP, Arterial Line 2 47 mmHg LOW Mean Arterial Pressure, Line 2 70 mmHg Temperature Source Oral Temperature Mode Fahrenheit Temperature, Fahrenheit 98.2 Deg F Clinical Temperature, C 36.8 Deg C Heart Rate Monitored 88 bpm Respiratory Rate 31 Breaths/Min HI Oxygen Saturation 95 % 03/09/2022 19:47 EDT Heart Rate Monitored 81 bpm Respiratory Rate 19 Breaths/Min Oxygen Saturation 100 % Oxygen Therapy Mode CPAP FiO2 35 % 03/09/2022 19:30 EDT Systolic Blood Pressure 159 mmHg HI Diastolic Blood Pressure 70 mmHg Mean Arterial Pressure (MAP)-BMDI 100 Systolic BP, Arterial Line 2 136 mmHg Diastolic BP, Arterial Line 2 52 mmHg LOW Mean Arterial Pressure, Line 2 77 mmHg 03/09/2022 19:00 EDT Systolic Blood Pressure 159 mmHg HI Diastolic Blood Pressure 70 mmHg Mean Arterial Pressure (MAP)-BMDI 100 Systolic BP, Arterial Line 2 142 mmHg HI Diastolic BP, Arterial Line 2 51 mmHg LOW Mean Arterial Pressure, Line 2 80 mmHg Heart Rate Monitored 79 bpm Respiratory Rate 19 Breaths/Min Oxygen Saturation 100 % 03/09/2022 18:30 EDT Systolic BP, Arterial Line 2 173 mmHg HI Diastolic BP, Arterial Line 2 64 mmHg Mean Arterial Pressure, Line 2 99 mmHg Heart Rate Monitored 85 bpm Respiratory Rate 19 Breaths/Min Oxygen Saturation 100 % 03/09/2022 18:00 EDT Systolic Blood Pressure 144 mmHg HI Diastolic Blood Pressure 70 mmHg Mean Arterial Pressure (MAP)-BMDI 101 Systolic BP, Arterial Line 2 141 mmHg HI Diastolic BP, Arterial Line 2 55 mmHg LOW Mean Arterial Pressure, Line 2 80 mmHg Heart Rate Monitored 84 bpm Respiratory Rate 24 Breaths/Min HI Oxygen Saturation 92 % LOW 03/09/2022 17:00 EDT Systolic Blood Pressure 157 mmHg HI Diastolic Blood Pressure 74 mmHg Mean Arterial Pressure (MAP)-BMDI 105 Systolic BP, Arterial Line 2 138 mmHg Diastolic BP, Arterial Line 2 57 mmHg LOW Mean Arterial Pressure, Line 2 80 mmHg Heart Rate Monitored 86 bpm Respiratory Rate 23 Breaths/Min HI Oxygen Saturation 98 % 03/09/2022 16:13 EDT Heart Rate Monitored 79 bpm Respiratory Rate 24 Breaths/Min HI Oxygen Saturation 99 % Oxygen Therapy Mode Nasal cannula Oxygen Flow Rate 5 Liter/Min 03/09/2022 16:00 EDT Systolic Blood Pressure 166 mmHg HI Diastolic Blood Pressure 71 mmHg Mean Arterial Pressure (MAP)-BMDI 102 Systolic BP, Arterial Line 2 145 mmHg HI Diastolic BP, Arterial Line 2 56 mmHg LOW Mean Arterial Pressure, Line 2 82 mmHg Temperature Source Oral Temperature Mode Fahrenheit Temperature, Fahrenheit 97.7 Deg F Heart Rate Monitored 85 bpm Respiratory Rate 24 Breaths/Min HI Oxygen Saturation 98 % Oxygen Therapy Mode Nasal cannula Oxygen Flow Rate 5 Liter/Min 03/09/2022 15:00 EDT Systolic Blood Pressure 160 mmHg HI Diastolic Blood Pressure 74 mmHg Mean Arterial Pressure (MAP)-BMDI 106 Systolic BP, Arterial Line 2 143 mmHg HI Diastolic BP, Arterial Line 2 57 mmHg LOW Mean Arterial Pressure, Line 2 81 mmHg Heart Rate Monitored 82 bpm Respiratory Rate 23 Breaths/Min HI Oxygen Saturation 99 % 03/09/2022 14:00 EDT Systolic Blood Pressure 166 mmHg HI Diastolic Blood Pressure 80 mmHg Mean Arterial Pressure (MAP)-BMDI 115 Systolic BP, Arterial Line 2 168 mmHg HI Diastolic BP, Arterial Line 2 67 mmHg Mean Arterial Pressure, Line 2 96 mmHg Heart Rate Monitored 80 bpm Respiratory Rate 21 Breaths/Min HI Oxygen Saturation 99 % 03/09/2022 13:00 EDT Systolic Blood Pressure 145 mmHg HI Diastolic Blood Pressure 66 mmHg Mean Arterial Pressure (MAP)-BMDI 96 Systolic BP, Arterial Line 2 158 mmHg HI Diastolic BP, Arterial Line 2 70 mmHg Mean Arterial Pressure, Line 2 98 mmHg Heart Rate Monitored 79 bpm Respiratory Rate 20 Breaths/Min Oxygen Saturation 98 % 03/09/2022 12:30 EDT Heart Rate Monitored 72 bpm Respiratory Rate 24 Breaths/Min HI Oxygen Saturation 99 % Oxygen Therapy Mode Nasal cannula Oxygen Flow Rate 5 Liter/Min 03/09/2022 12:00 EDT Systolic Blood Pressure 159 mmHg HI Diastolic Blood Pressure 70 mmHg Mean Arterial Pressure (MAP)-BMDI 97 Systolic BP, Arterial Line 2 157 mmHg HI Diastolic BP, Arterial Line 2 69 mmHg Mean Arterial Pressure, Line 2 97 mmHg Temperature Source Oral Temperature Mode Fahrenheit Temperature, Fahrenheit 97.6 Deg F Heart Rate Monitored 75 bpm Respiratory Rate 23 Breaths/Min HI Oxygen Saturation 98 % 03/09/2022 11:00 EDT Systolic BP, Arterial Line 2 141 mmHg HI Diastolic BP, Arterial Line 2 60 mmHg Mean Arterial Pressure, Line 2 82 mmHg Heart Rate Monitored 69 bpm Respiratory Rate 19 Breaths/Min Oxygen Saturation 100 % 03/09/2022 10:00 EDT Systolic Blood Pressure 143 mmHg HI Diastolic Blood Pressure 72 mmHg Mean Arterial Pressure (MAP)-BMDI 99 Systolic BP, Arterial Line 2 128 mmHg Diastolic BP, Arterial Line 2 51 mmHg LOW Mean Arterial Pressure, Line 2 71 mmHg Heart Rate Monitored 74 bpm Respiratory Rate 21 Breaths/Min HI Oxygen Saturation 99 % 03/09/2022 9:00 EDT Systolic Blood Pressure 141 mmHg HI Diastolic Blood Pressure 75 mmHg Mean Arterial Pressure (MAP)-BMDI 100 Systolic BP, Arterial Line 2 132 mmHg Diastolic BP, Arterial Line 2 61 mmHg Mean Arterial Pressure, Line 2 83 mmHg Heart Rate Monitored 81 bpm Respiratory Rate 22 Breaths/Min HI Oxygen Saturation 92 % LOW 03/09/2022 8:00 EDT Systolic Blood Pressure 144 mmHg HI Diastolic Blood Pressure 67 mmHg Mean Arterial Pressure (MAP)-BMDI 96 Systolic BP, Arterial Line 2 156 mmHg HI Diastolic BP, Arterial Line 2 66 mmHg Mean Arterial Pressure, Line 2 93 mmHg Temperature Source Oral Temperature Mode Fahrenheit Temperature, Fahrenheit 97.7 Deg F Heart Rate Monitored 75 bpm Respiratory Rate 22 Breaths/Min HI Oxygen Saturation 100 % 03/09/2022 7:52 EDT Heart Rate Monitored 72 bpm Respiratory Rate 22 Breaths/Min HI Oxygen Saturation 100 % Oxygen Therapy Mode Nasal cannula Oxygen Flow Rate 5 Liter/Min 03/09/2022 7:00 EDT Systolic Blood Pressure 190 mmHg HI Diastolic Blood Pressure 86 mmHg Mean Arterial Pressure (MAP)-BMDI 124 Systolic BP, Arterial Line 2 150 mmHg HI Diastolic BP, Arterial Line 2 60 mmHg Mean Arterial Pressure, Line 2 86 mmHg 03/09/2022 6:00 EDT Systolic Blood Pressure 165 mmHg HI Diastolic Blood Pressure 103 mmHg HI Mean Arterial Pressure (MAP)-BMDI 129 Systolic BP, Arterial Line 2 180 mmHg HI Diastolic BP, Arterial Line 2 75 mmHg Mean Arterial Pressure, Line 2 112 mmHg Heart Rate Monitored 93 bpm Respiratory Rate 23 Breaths/Min HI Oxygen Saturation 94 % Oxygen Therapy Mode Nasal cannula Oxygen Flow Rate 5 Liter/Min 03/09/2022 5:30 EDT Systolic Blood Pressure 130 mmHg Diastolic Blood Pressure 74 mmHg Mean Arterial Pressure (MAP)-BMDI 97 Systolic BP, Arterial Line 2 148 mmHg HI Diastolic BP, Arterial Line 2 62 mmHg Mean Arterial Pressure, Line 2 85 mmHg Heart Rate Monitored 85 bpm Respiratory Rate 53 Breaths/Min HI Oxygen Saturation 97 % 03/09/2022 5:00 EDT Systolic Blood Pressure 130 mmHg Diastolic Blood Pressure 74 mmHg Mean Arterial Pressure (MAP)-BMDI 97 Systolic BP, Arterial Line 2 144 mmHg HI Diastolic BP, Arterial Line 2 59 mmHg LOW Mean Arterial Pressure, Line 2 83 mmHg Heart Rate Monitored 84 bpm Respiratory Rate 26 Breaths/Min HI Oxygen Saturation 97 % 03/09/2022 4:53 EDT Heart Rate Monitored 81 bpm Respiratory Rate 26 Breaths/Min HI Oxygen Saturation 98 % Oxygen Therapy Mode CPAP FiO2 35 % 03/09/2022 4:39 EDT Heart Rate Monitored 82 bpm Respiratory Rate 36 Breaths/Min HI Oxygen Saturation 95 % Oxygen Therapy Mode CPAP FiO2 35 % 03/09/2022 4:30 EDT Systolic BP, Arterial Line 2 125 mmHg Diastolic BP, Arterial Line 2 54 mmHg LOW Mean Arterial Pressure, Line 2 73 mmHg 03/09/2022 4:00 EDT Systolic Blood Pressure 115 mmHg Diastolic Blood Pressure 65 mmHg Mean Arterial Pressure (MAP)-BMDI 85 Systolic BP, Arterial Line 2 136 mmHg Diastolic BP, Arterial Line 2 57 mmHg LOW Mean Arterial Pressure, Line 2 79 mmHg Temperature Source Axillary Temperature Mode Fahrenheit Temperature, Fahrenheit 99.2 Deg F Clinical Temperature, C 37.3 Deg C Heart Rate Monitored 82 bpm Respiratory Rate 28 Breaths/Min HI Oxygen Saturation 98 % Oxygen Therapy Mode CPAP 03/09/2022 3:30 EDT Systolic Blood Pressure 115 mmHg Diastolic Blood Pressure 59 mmHg LOW Mean Arterial Pressure (MAP)-BMDI 81 Systolic BP, Arterial Line 2 126 mmHg Diastolic BP, Arterial Line 2 54 mmHg LOW Mean Arterial Pressure, Line 2 72 mmHg Heart Rate Monitored 82 bpm Respiratory Rate 28 Breaths/Min HI Oxygen Saturation 96 % 03/09/2022 3:00 EDT Systolic Blood Pressure 115 mmHg Diastolic Blood Pressure 59 mmHg LOW Mean Arterial Pressure (MAP)-BMDI 81 Systolic BP, Arterial Line 2 131 mmHg Diastolic BP, Arterial Line 2 55 mmHg LOW Mean Arterial Pressure, Line 2 75 mmHg Heart Rate Monitored 83 bpm Respiratory Rate 27 Breaths/Min HI Oxygen Saturation 96 % 03/09/2022 2:30 EDT Systolic BP, Arterial Line 2 129 mmHg Diastolic BP, Arterial Line 2 56 mmHg LOW Mean Arterial Pressure, Line 2 75 mmHg Heart Rate Monitored 82 bpm Respiratory Rate 28 Breaths/Min HI Oxygen Saturation 94 % 03/09/2022 2:00 EDT Systolic Blood Pressure 112 mmHg Diastolic Blood Pressure 65 mmHg Mean Arterial Pressure (MAP)-BMDI 83 Systolic BP, Arterial Line 2 146 mmHg HI Diastolic BP, Arterial Line 2 61 mmHg Mean Arterial Pressure, Line 2 84 mmHg Heart Rate Monitored 83 bpm Respiratory Rate 28 Breaths/Min HI Oxygen Saturation 95 % Oxygen Therapy Mode CPAP 03/09/2022 1:30 EDT Systolic BP, Arterial Line 2 135 mmHg Diastolic BP, Arterial Line 2 59 mmHg LOW Mean Arterial Pressure, Line 2 79 mmHg Heart Rate Monitored 84 bpm Respiratory Rate 28 Breaths/Min HI Oxygen Saturation 92 % LOW 03/09/2022 1:00 EDT Systolic Blood Pressure 96 mmHg Diastolic Blood Pressure 52 mmHg LOW Mean Arterial Pressure (MAP)-BMDI 70 Systolic BP, Arterial Line 2 109 mmHg Diastolic BP, Arterial Line 2 49 mmHg LOW Mean Arterial Pressure, Line 2 64 mmHg Heart Rate Monitored 83 bpm Respiratory Rate 28 Breaths/Min HI Oxygen Saturation 92 % LOW 03/09/2022 0:30 EDT Systolic Blood Pressure 124 mmHg Diastolic Blood Pressure 58 mmHg LOW Mean Arterial Pressure (MAP)-BMDI 83 Systolic BP, Arterial Line 2 148 mmHg HI Diastolic BP, Arterial Line 2 58 mmHg LOW Mean Arterial Pressure, Line 2 83 mmHg Heart Rate Monitored 97 bpm Respiratory Rate 32 Breaths/Min HI Oxygen Saturation 86 % LOW 03/09/2022 0:00 EDT Systolic Blood Pressure 124 mmHg Diastolic Blood Pressure 58 mmHg LOW Mean Arterial Pressure (MAP)-BMDI 83 Systolic BP, Arterial Line 2 138 mmHg Diastolic BP, Arterial Line 2 56 mmHg LOW Mean Arterial Pressure, Line 2 78 mmHg Temperature Source Oral Temperature Mode Fahrenheit Temperature, Fahrenheit 98.9 Deg F Clinical Temperature, C 37.2 Deg C Heart Rate Monitored 92 bpm Respiratory Rate 29 Breaths/Min HI Oxygen Saturation 90 % LOW Oxygen Therapy Mode CPAP , Measurements from flowsheet : Measurements 03/10/2022 6:10 EDT Height Source Chart Height Entry Format Jennings Height/Length, FILIPINO (ft) 5 ft Height/Length FILIPINO 4 Inch CLINICALHEIGHT 162.56 cm Routine Weight Source Bed scale Routine Weight Entry Format Metric Routine Weight, Kilograms 93.5 kg Routine Weight Calculation 93.5 kg Body Mass Index (BMI), Routine 35.38 kg/m2 Body Surface Area (BSA), Routine 1.98 m2 03/09/2022 4:00 EDT Routine Weight Source Bed scale Routine Weight Entry Format Metric Routine Weight, Kilograms 92.7 kg Routine Weight Calculation 92.7 kg , Vitals Signs (last 24 hrs) Last Charted Minimum Maximum Temp 98.5 (MAR 10 12:00) 98.5 (MAR 10 12:00) 98.2 (MAR 09 20:00) Apical HR 80 (MAR 10 14:16) 80 (MAR 10 14:16) 80 (MAR 10 14:16) Mon HR 81 (MAR 10 15:09) 78 (MAR 10 03:00) 96 (MAR 09 20:30) Resp Rate 20 (MAR 10 15:03) L 13 (MAR 10 08:00) H 32 (MAR 10 10:05) SBP H 168 (MAR 10 14:00) 130 (MAR 09 22:00) H 186 (MAR 10 00:00) DBP 81 (MAR 10 14:00) L 59 (MAR 09 21:00) 89 (MAR 10 10:00) MAP 117 (MAR 10 14:00) 85 (MAR 09 21:00) 124 (MAR 10 00:00) SpO2 98 (MAR 10 15:) L 92 (MAR 09 18:00) 100 (MAR 09 18:30) Intake & Output Totals Last 24 Hours (7a-7a) Intake (71 Events) Medications (493.14 mL) Enteral Additional Water Given (720 mL) Enteral Feeding Amount (1320 mL) Output (6 Events) Valenzuela Catheter (2950 mL) Input Total: 2533.14 mL Output Total: 2950 mL Balance: -416.86 mL Physical exam contact may be limited [...] Review Labs (Last four charted values) WBC 4.8 (MAR 10) 8.6 (MAR 09) 8.9 (MAR 08) 9.3 (MAR 07) HB L 7.8 (MAR 10) L 7.4 (MAR 10) L 7.8 (MAR 09) L 7.8 (MAR 08) HCT L 24.9 (MAR 10) L 23.8 (MAR 10) L 25.5 (MAR 09) L 25.6 (MAR 08) Plt L 131 (MAR 10) L 131 [...] 2.2 (MAR 08) L 2.5 (MAR 07) Impression and Plan 1- JAVIER - nonoliguric. [...] Pneumonia on vent. Plan: - Renal function improving.. Cr 1.8 mg/dl . -Hypernatremia resolved. Encourage oral hydration. - Monitor I/O. - Avoid nephrotoxic agents. - Adjust meds per renal function - No emergent need of BUSINESS PROCESS MANAGER. - Monitor H/H and transfuse for Hgb less than 7.0 High risk and complexity patient. Discussed with RN. documented in this encounter Plan of Treatment Not on file documented as of this encounter Visit Diagnoses Not on filedocumented in this encounter
--- OUTSIDE RECORDS SUMMARY | 2025-02-21 13:34 | XMS_ITS | Encounter Summary ---
Author Organization [employer] Address [address] [place] [address] Care Team Providers Care Visiting Housekeeper Name Role Phone Unavailable Primary Care Provider Unavailabl e Encounter Details Date Type Department Care Team (Late st Contact Info) Description 04/08/2022 Transcribed Document [facility] [place] Medicine [facility] [place] [address] ProviderFlorentino MD [facility] [place] [address] Social History Tobacco Use Types Packs/Day Years Used Date Smoking Tobacco: Never Assessed Comments Unknown Sex and Gender Information Value Date Recorded Sex Assigned at Not on file Legal Sex Female 1:44 PM CDT Gender Identity Not on file Sexual Orientation Not on file documented as of this encounter Miscellaneous Notes * Cerner Conversion Note - Florentino Lynne MD - 04/08/2022 5:58 AM CDT ED Assessment Entered On: 04/08/2022 6:53 EDT Performed On: 04/08/2022 6:49 EDT by Alma Shore ship purser Quick Look Assessment Level of Consciousness : Obtunded, Responds to Pain Alma Shore Rn - 04/08/2022 6:57 EDT Affect/Behavior : Restless Orientation : Unable to assess Skin Temperature : Cool Alma Shore Rn - 04/08/2022 6:49 EDT ED General-Functional Assess Information Obtained From : Other: ems, homestead nurse Communication Barrier : None Primary Language : [place] Any Spiritual/Cultural Needs or Requests : No Currently in Unsafe Situation : No Alma Shore Rn - 04/08/2022 6:57 EDT Social Habits Smoking Status : Never (less than 100 in lifetime; none in last 30 days) Smokeless Tobacco Status : Never Desires Tobacco Cessation Calc : 0 Alma Shore Rn - 04/08/2022 6:57 EDT Social History (As Of: 04/08/2022 06:59:46 EDT) Cardiovascular ASMT, ED Cardiovascular Assessment WDL : WDL Alma Shore Rn - 04/08/2022 7:00 EDT Respiratory Respiratory Assessment WDL : WDL with exceptions (Comment: shelter staff reports pt had fall this am, states she was 89% on room air. was placed on prn oxygen. [Alma Shore Rn - 04/08/2022 7:00 EDT] ) Alma Shore Rn - 04/08/2022 7:00 EDT Gastrointestinal ED Gastrointestinal Assessment WDL : WDL Alma Shore Rn - 04/08/2022 7:00 EDT Genitourinary Assessment, ED Urinary Elimination : Urostomy Genitourinary Assessment WDL : WDL with exceptions (Comment: abrasion to R labia. pt has urostomy, dark amezcua urine noted in bag. shelter staff reports urostomy bag was changed yesterday [Alma Shore Rn - 04/08/2022 7:00 EDT] ) Alma Shore Rn - 04/08/2022 7:00 EDT Musculoskeletal Musculoskeletal Assessment WDL : WDL with exceptions (Comment: pt had fall from bed this am per shelter staff. pt is paraplegic. [Alma Shore Rn - 04/08/2022 7:00 EDT] ) Alma Shore Rn - 04/08/2022 7:00 EDT Integumentary Assessment Integumentary Assessment WDL : WDL with exceptions (Comment: abrasion to L knee r/t fall, bleeding controlled. wound vac present to L hip/buttock. [Alma Shore Rn - 04/08/2022 7:00 EDT] ) Alma Shore Rn - 04/08/2022 7:00 EDT Mucous Membrane Assessment : Dry Alma Shore Rn - 04/08/2022 6:57 EDT Neurologic ASMT, ED Level of Consciousness : Obtunded Affect/Behavior : Restless Orientation : Unable to assess Neurologic Assessment WDL : WDL with exceptions (Comment: pt to ER after fall from bed per shelter staff. pt normally alert, disoriented, but able to answer questions. arrives obtunded, unable to answer questions. [Alma Shore Rn - 04/08/2022 7:00 EDT] ) Alma Shore Rn - 04/08/2022 7:00 EDT Electronically signed by [facility] Conversion Site Administrator Cerner at 12/21/2022 5:11 PM CDT documented in this encounter Plan of Treatment Not on file documented as of this encounter Visit Diagnoses Not on filedocumented in this encounter
--- OUTSIDE RECORDS SUMMARY | 2025-02-21 13:34 | XMS_ITS | Encounter Summary ---
Author Organization [employer] Address [address] [place] [id number] Care Team Providers Care Assistant Professor Sculpture Name Role Phone Unavailable Primary Care Provider Unavailabl e Encounter Details Date Type Department Care Team (Late st Contact Info) Description 05/08/2022 Transcribed Document [facility] [place] [address] [place] [address] ProviderFlorentino MD [address] [place] [address] Social History Tobacco Use Types Packs/Day Years Used Date Smoking Tobacco: Never Assessed Comments Unknown Sex and Gender Information Value Date Recorded Sex Assigned at Not on file Legal Sex Female 1:44 PM CDT Gender Identity Not on file Sexual Orientation Not on file documented as of this encounter Miscellaneous Notes * Cerner Conversion Note - Florentino Lynne MD - 05/08/2022 8:34 PM CDT Patient: ALYSSA AZUL Age: 62 years Sex: Female : 1960 Associated Diagnoses: None Author: HIGINIO AREVALO MD-INF Antibiotics: Zyvox cefepime and micafungin CC fevers Subjective: Patient stable and remians without fevers with no acute changes some elevated blood pressure Objective: Vitals Signs (last 24 hrs) Last [...] lung and recurrent UTI with sepsis improved with antibiotics through tomorrow then discontinue, H&H down some today and plan to d/c abx today and monitor off. RECOMMENDATIONS/PLANS: d/c abx today Monitor H&H E.brPlans for discharge to home after completion of antibiotics, tomorrow at high risk for readmission with recurrent wound infection and recurrent UTIs documented in this encounter Plan of Treatment Not on file documented as of this encounter Visit Diagnoses Not on filedocumented in this encounter
--- OUTSIDE RECORDS SUMMARY | 2025-02-21 13:34 | XMS_ITS | Encounter Summary ---
Author Organization [employer] Address [address] [place] [address] Care Team Providers Care Shower Room Attendant Name Role Phone Unavailable Primary Care Provider Unavailabl e Encounter Details Date Type Department Care Team (Late st Contact Info) Description 05/12/2022 Transcribed Document [facility] [place] Family Medicine [address] [place] [address] ProviderFlorentino MD [address], [place] [id number] Social History Tobacco Use Types Packs/Day Years Used Date Smoking Tobacco: Never Assessed Comments Unknown Sex and Gender Information Value Date Recorded Sex Assigned at Not on file Legal Sex Female 1:44 PM CDT Gender Identity Not on file Sexual Orientation Not on file documented as of this encounter Miscellaneous Notes * Cerner Conversion Note - Florentino Lynne MD - 05/12/2022 4:39 PM CDT UM Authorization Entered On: 05/12/2022 16:39 EDT Performed On: 05/12/2022 16:39 EDT by SARAH MORALES RN Primary Insurance Authorization Authorization and Policy Numbers : Insurance 1 Health Plan: [facility] Policy Number: [id number] Authorization Number: Insurance 2 Health Plan: MEDICAID [facility] Policy Number: [id number] Authorization Number: Insurance Primary Name : [facility] Policy Number: [id number] Authorization Status-Primary : Denied Reference Number-Primary : [id number] Authorized Service Begin Date-Primary : 2022 EDT Authorization Comments-Primary : Per Marina the readmission determination will be reached when claim is received Historical Authorization Comments-Primary : Comment 1: Left VM for Marina with AB inquiring if admit will be linked to previous admit 04/08-04/26 auth # [id number]. Per fax states denied due to being linked readmit. (SARAH MORALES RN 05/01/2022 10:02) Comment 2: Rec faxed Denial from [facility] 04/30/22 placed in tray on JJs desk (SHERIF LYNCH, Phototypesetting Equipment Monitor 04/30/2022 12:52) Comment 3: Faxed initial clinicals via [employer]. (SARAH MORALES RN 2022 11:46) SARAH MORALES, PRIMO - 05/12/2022 16:39 EDT Electronically signed by [facility], [facility] Conversion Corrections Specialist Cerner at 12/21/2022 5:10 PM CDT documented in this encounter Plan of Treatment Not on file documented as of this encounter Visit Diagnoses Not on filedocumented in this encounter
--- OUTSIDE RECORDS SUMMARY | 2025-02-21 13:34 | XMS_ITS | Encounter Summary ---
Author Organization [employer] Address [address] [place] [address] Care Team Providers Care Bookkeepers Supervisor Name Role Phone Unavailable Primary Care Provider Unavailabl e Encounter Details Date Type Department Care Team (Late st Contact Info) Description 05/12/2022 Transcribed Document [facility] [place] [address] [place] [address] ProviderFlorentino MD [address] [place] [address] Social History Tobacco Use Types Packs/Day Years Used Date Smoking Tobacco: Never Assessed Comments Unknown Sex and Gender Information Value Date Recorded Sex Assigned at Not on file Legal Sex Female 1:44 PM CDT Gender Identity Not on file Sexual Orientation Not on file documented as of this encounter Miscellaneous Notes * Cerner Conversion Note - Florentino Lynne MD - 05/12/2022 3:52 PM CDT Final Discharge Planning Entered On: 05/12/2022 15:53 EDT Performed On: 05/12/2022 15:52 EDT by TRISTAN TAYLOR, RN-Middle School Math Teacher Final Discharge Planning Discharge Arrangements : Patient Post-Acute Information Patient Name: ALYSSA AZUL Gender: Female : 60 Age: 62 Years No Post-Acute Placement(s) Listed No Post-Acute Service(s) Listed No [place] Referral(s) Listed Patient Offered Choice/Affiliations Explained : Yes Designation of Choice Signed : Yes Transportation Needs : Ambulance Is Patient High/Moderate Readmission Risk? : Yes High Readmission Risk-SNF : Notify liaison that patient is high risk for readmission, request patient be assessed day after D/C and frequent evaluations next 1-2 weeks Patient/Family Notified of Plan : Yes Support Person/Pt Rep Notified of Plan : Yes Patient/Family Notified : pt Is Patient Ready for Discharge? : Yes Physician Notified Patient is Ready for Discharge? : Yes Discharge To Care Management : SNF with Medicare Certification-03 TRISTAN TAYLOR, RN-Middle School Math Teacher - 05/12/2022 15:52 EDT Final Narrative Note Final Narrative Note : pt agreed to [facility] and brittaney santoyo notified. amr was notified of new destination--spoke with tish. TRISTAN TAYLOR, RN-Middle School Math Teacher - 05/12/2022 15:55 EDT documented in this encounter Plan of Treatment Not on file documented as of this encounter Visit Diagnoses Not on filedocumented in this encounter
--- OUTSIDE RECORDS SUMMARY | 2025-02-21 13:34 | XMS_ITS | Encounter Summary ---
Author Organization [employer] Address [address] [place] [address] Care Team Providers Care Teacher Vocal Name Role Phone Unavailable Primary Care Provider Unavailabl e Encounter Details Date Type Department Care Team (Late st Contact Info) Description 03/02/2022 Transcribed Document [facility] [place] Family Medicine [address] [place] [address] ProviderFlorentino MD [address] [place] [address] Social History Tobacco Use Types Packs/Day Years Used Date Smoking Tobacco: Never Assessed Comments Unknown Sex and Gender Information Value Date Recorded Sex Assigned at Not on file Legal Sex Female 1:44 PM CDT Gender Identity Not on file Sexual Orientation Not on file documented as of this encounter Miscellaneous Notes * Cerner Conversion Note - Florentino ProviderMD - 03/02/2022 5:00 PM CDT Chart Check - Review Order Profile Entered On: 03/02/2022 16:29 EDT Performed On: 03/02/2022 17:00 EDT by Jenifer Fonseca RN Chart Check Powerplans Initiated/Discontinued as Appropriate : Yes All Active Orders Reviewed : Yes Jenifer Fonseca RN - 03/02/2022 16:29 EDT documented in this encounter Plan of Treatment Not on file documented as of this encounter Visit Diagnoses Not on filedocumented in this encounter
--- OUTSIDE RECORDS SUMMARY | 2025-02-21 13:34 | XMS_ITS | Encounter Summary ---
Author Organization [email or web address] Address [address] [place] [address] Care Team Providers Care Gas Plant Technician Name Role Phone Unavailable Primary Care Provider Unavailabl e Encounter Details Date Type Department Care Team (Late st Contact Info) Description 04/28/2022 Transcribed Document [facility] [place] Family Medicine [address] [place] [address] ProviderFlorentino MD [address] [place] [address] Social History Tobacco Use Types [...] Historical ProviderMD - 04/28/2022 9:43 PM CDT [place] Suicide Severity Rating Scale (C-SSRS) Entered On: 2022 0:14 EDT Performed On: 2022 0:11 EDT by Gregorio Harrell RN-PATIENT CARE BEDSIDE NON-EXEMPT [place] Suicide Severity Rating Scale (C-SSRS) CSSRS Past Month Wish to be : No CSSRS Past Month Suicidal Thoughts : No CSSRS Lifetime Suicide Behavior : No Suicide Severity Rating Score : 0 Suicide Severity Rating : No Additional Care Required at this time Gregorio Harrell RN-PATIENT CARE BEDSIDE NON-EXEMPT - 2022 0:11 EDT documented in this encounter Plan of Treatment Not on file documented as of this encounter Visit Diagnoses Not on filedocumented in this encounter
--- OUTSIDE RECORDS SUMMARY | 2025-02-21 13:34 | XMS_ITS | Encounter Summary ---
Author Organization [employer] Address [address] [place] [address] Care Team Providers Care Academic Affairs Coordinator Name Role Phone Unavailable Primary Care Provider Unavailabl e Encounter Details Date Type Department Care Team (Late st Contact Info) Description 05/12/2022 Transcribed Document [facility] [place] Family Medicine [address] [place] [address] ProviderFlorentino MD [address] [place] [address] Social History Tobacco Use Types Packs/Day Years Used Date Smoking Tobacco: Never Assessed Comments Unknown Sex and Gender Information Value Date Recorded Sex Assigned at Not on file Legal Sex Female 1:44 PM CDT Gender Identity Not on file Sexual Orientation Not on file documented as of this encounter Miscellaneous Notes * Cerner Conversion Note - Florentino ProviderMD - 05/12/2022 5:10 PM CDT Stroke/Warfarin Instructions Entered On: 05/12/2022 17:11 EDT Performed On: 05/12/2022 17:10 EDT by Naye Garza, Blow Molder-Nursing Stroke/Warfarin Instructions Stroke/TIA Discharge Ins : N/A Warfarin Discharge Ins : N/A Naye Garza Blow Molder-Nursing - 05/12/2022 17:10 EDT Education Topics: Anticoagulant Education Anticoagulant : Anticoagulant other than warfarin Compliance Issues *Q : Other: na Diet *Q : Other: na Adverse drug reactions/interactions *Q : Other: na Action/Interaction with Other Drugs : Other: na Follow-up care/monitoring *Q : Other: na Follow-up Care Details : Other: na Naye Garza, Blow Molder-Nursing - 05/12/2022 17:10 EDT documented in this encounter Plan of Treatment Not on file documented as of this encounter Visit Diagnoses Not on filedocumented in this encounter
--- OUTSIDE RECORDS SUMMARY | 2025-02-21 13:34 | XMS_ITS | Encounter Summary ---
Author Organization [employer] Address [address] [place] [address] Care Team Providers Care Rent And Miscellaneous Remittance Clerk Name Role Phone Unavailable Primary Care Provider Unavailabl e Encounter Details Date Type Department Care Team (Late st Contact Info) Description 05/08/2022 Transcribed Document [facility] [place] [address] [place] [address] ProviderFlorentino MD [address] [place] [address] Social History Tobacco Use Types Packs/Day Years Used Date Smoking Tobacco: Never Assessed Comments Unknown Sex and Gender Information Value Date Recorded Sex Assigned at Not on file Legal Sex Female 1:44 PM CDT Gender Identity Not on file Sexual Orientation Not on file documented as of this encounter Miscellaneous Notes * Cerner Conversion Note - Florentino ProviderMD - 05/08/2022 5:00 AM CDT Chart Check - Review Order Profile Entered On: 05/08/2022 3:22 EDT Performed On: 05/08/2022 5:00 EDT by Casey Palacios Non Emp RN Chart Check Powerplans Initiated/Discontinued as Appropriate : Yes All Active Orders Reviewed : Yes Casey Palacios Non Emp RN - 05/08/2022 3:22 EDT documented in this encounter Plan of Treatment Not on file documented as of this encounter Visit Diagnoses Not on filedocumented in this encounter
--- OUTSIDE RECORDS SUMMARY | 2025-02-21 13:34 | XMS_ITS | Encounter Summary ---
Author Organization [employer] [facility] Address [address] [place] [address] Care Team Providers Care Middleware Developer Name Role Phone Unavailable Primary Care Provider Unavailabl e Encounter Details Date Type Department Care Team (Late st Contact Info) Description 05/08/2022 Transcribed Document [facility] [place] [address] [place] [address] ProviderFlorentino MD [address] [place] [address] Social History Tobacco Use Types Packs/Day Years Used Date Smoking Tobacco: Never Assessed Comments Unknown Sex and Gender Information Value Date Recorded Sex Assigned at Not on file Legal Sex Female 1:44 PM CDT Gender Identity Not on file Sexual Orientation Not on file documented as of this encounter Miscellaneous Notes * Cerner Conversion Note - Florentino Lynne MD - 05/08/2022 1:58 PM CDT On Going Discharge Planning Entered On: 05/08/2022 13:58 EDT Performed On: 05/08/2022 13:58 EDT by ERIK GALARZA Driver Manager-Staff Veterinarian Care Management Progress Note Discharge Arrangements : [...] Yes Did you Attend Multidisciplinary Rounds? : No ERIK GALARZA, Driver Manager-Staff Veterinarian - 05/08/2022 13:58 EDT Narrative Progress Note Narrative Progress Note : Patient is completing abx today. Patient stated that she can't go home as her family is gone all weekend and she has no one to help take care of her. Patient can't have HH due to no HH agency accepting her insurance. Patient and CM called patients insurance to try to find services for patient today. [facility] is looking at patient to see if they can offer patient a bed. Cm called [facility] and they cannot accept patient due to not have skilled benefits. CM called [facility] but had to leave a message. CM faxed patient to [facility]. [facility] is going to re-look at patient. CM faxed patient out to more SNFS and acute rehabs. Cm will continue to follow. Historical Progress Note [...] try to find services for patient today. [facility] is looking at patient to see if they can offer patient a bed. Cm called [facility] and they cannot accept patient due to not have skilled benefits. CM called [facility] but had to leave a message. CM faxed patient to [facility]. [facility] is going to re-look at patient. Cm will continue to follow. ERIK GALARZA Driver Manager-Staff Veterinarian - 05/08/22 13:50:52 CM spoke with patient about going home tomorrow or Thursday after IV abx completion. Patient stated that she wants to go to [facility] or [facility]. She stated that she needs rehab but just doesn't want to go to any rehab and definitely not [facility]. Cm explained that as of now she does not have any bed offers and if an offer came it would be limited. CM explained to patient that she needs to prepare to go home but she will keep looking for a snf offer. Cm will continue to follow. ERIK GALARZA Driver Manager-Staff Veterinarian - 05/07/22 09:50:44 Patient will be on iv abx until 9/8. She will then need to discharge home with family. Can't receive HH due to insurance and location. Will likely need outpatient wound care follow up. Need resources from a place from mom. Maybe a trapeze bar. Cm will continue to follow. ERIK GALARZA, Driver Manager-Staff Veterinarian - 05/06/22 14:19:48 RRS HIGH, LOS 3, ELOS 3 Cefepime and micafungin iv until 9.8-Per [employer], rxs at at home are covered at 100%--PICC was refused by pt so will get groshong but can't be placed until 9.6. Pt is seeking [facility] and per liaison, [facility] administration has declined referral. Referrals were made 9.1 and per [facility], the denial was based on pt's insurance. Preferred snf[facility] and [facility] both declined. One interested facility[facility] was updated. Per [facility], pt's insurance is [employer] [employer] and there are no accepting HH agencies in pt's home zipcode. Dtr states pt's primary is [place] Medicaid but [facility] shows as 2nd and D-I-L cannot produce paperwork that shows [place] Medicaid as primary. DCP may include completion of iv abx in hospital as she will not have HH to monitor iv abx and groshong and pt does not have transportation to outpt infusion center, stating he son and D-I-L work. TRISTAN TAYLOR RN-Donor Recruiter - 05/02/22 15:55:36 RRS HIGH, LOS 2, ELOS 3 Discharged 8.27 and readmitted 8.28 Sepsis-uti Cefepime and micafungin iv until 9.8 Per [facility], pt's insurance is aetna Medicaid with 2nd as [place] Medicaid. Pt agreed to snf-[facility] referral with pref for [facility]. Per colleene, pt is declined. Pt agreed to [facility] and 2nd to [facility]. If pt discharges to home because there are no acceting snfs, only insurance accepted [place]. Will need precert for snf and potential transportation. TRISTAN TAYLOR RN-Donor Recruiter - 05/01/22 15:43:47 Patient is now on IV abx, Receiving wound care. Patient stated that she wants to go home. Family informed nursing that patient needs rehab. Nursing told family that they need to discuss this with patient and patient continues to state she wants to go home. Cm called [facility] . They can only accept patient if she truly does have straight Medicaid and not Aetna. CM will confirm insurance on 05/01/2022. CM will continue to follow. ERIK GALARZA, Driver Manager-Staff Veterinarian - 04/30/22 14:16:00 ERIK GALARZA, Driver Manager-Staff Veterinarian - 05/08/2022 13:58 EDT documented in this encounter Plan of Treatment Not on file documented as of this encounter Visit Diagnoses Not on filedocumented in this encounter
--- OUTSIDE RECORDS SUMMARY | 2025-02-21 13:34 | XMS_ITS | Encounter Summary ---
Author Organization [employer] Address [address] [place] [address] Care Team Providers Care Nursery Technician Name Role Phone Unavailable Primary Care Provider Unavailabl e Encounter Details Date Type Department Care Team (Late st Contact Info) Description 05/12/2022 Transcribed Document [facility] [place] Family Medicine [facility] [place] [address] ProviderFlorentino MD [facility] [place] [address] Social History Tobacco Use Types Packs/Day Years Used Date Smoking Tobacco: Never Assessed Comments Unknown Sex and Gender Information Value Date Recorded Sex Assigned at Not on file Legal Sex Female 1:44 PM CDT Gender Identity Not on file Sexual Orientation Not on file documented as of this encounter Miscellaneous Notes * S[employer] Conversion Note - Florentino ProviderMD - 05/12/2022 5:11 PM CDT Nursing Discharge Summary Entered On: 05/12/2022 17:12 EDT Performed On: 05/12/2022 17:11 EDT by Naye Garza, Line Maintenance-Nursing Discharge Documentation Discharge Date/Time : 05/12/2022 16:00 EDT Patient Disposition, General : Discharge Discharge To : [facility] unit[facility]facility Mode Of Departure, General Discharge : Ambulance/BLS Accompanied By, Discharge : bone char operator Personal Belongings With Patient : Yes Pt's Own Supply of Medications Returned : No patient supply of medications to return Prescriptions Given to Patient : No Medications Given to Patient : No Discharge Instructions Reviewed With, Opportunity For Questions Given : Patient Patient Education Completed : Yes Teaching Method : Explanation Teaching Evaluation : Verbalizes understanding Worker's Compensation Paperwork Completed : No Discharge, Comment : Attempted to call report to [facility] x 3 Naye Garza, Line Maintenance-Nursing - 05/12/2022 17:11 EDT Electronically signed by Sumaya [facility] Conversion Spinner Cap Frame Cerner at 12/21/2022 5:06 PM CDT documented in this encounter Plan of Treatment Not on file documented as of this encounter Visit Diagnoses Not on filedocumented in this encounter
--- OUTSIDE RECORDS SUMMARY | 2025-02-21 13:34 | XMS_ITS | Encounter Summary ---
Author Organization [employer] Address [address] [place] [address] Care Team Providers Care Rivet Tester Name Role Phone Unavailable Primary Care Provider Unavailabl e Encounter Details Date Type Department Care Team (Late st Contact Info) Description 04/28/2022 Transcribed Document [facility] [place] Family Medicine [address] [place] [address] ProviderFlorentino MD [address] [place] [address] Social History Tobacco Use Types Packs/Day Years Used Date Smoking Tobacco: Never Assessed Comments Unknown Sex and Gender Information Value Date Recorded Sex Assigned at Not on file Legal Sex Female 1:44 PM CDT Gender Identity Not on file Sexual Orientation Not on file documented as of this encounter Miscellaneous Notes * Cerner Conversion Note - Historical ProviderMD - 04/28/2022 9:58 PM CDT ED Event Note Entered On: 04/28/2022 21:59 EDT Performed On: 04/28/2022 21:58 EDT by Yuli Peters, Boat Hand-Health Unit Coord ED Event Note ED Event Date/Time : 04/28/2022 21:57 EDT ED Description of Event : called code sepsis Yuli Peters, Boat Hand-Health Unit Coord - 04/28/2022 21:58 EDT Electronically signed by Sumaya [facility] Conversion Biometrics Head Cerner at 12/21/2022 5:07 PM CDT documented in this encounter Plan of Treatment Not on file documented as of this encounter Visit Diagnoses Not on filedocumented in this encounter
--- OUTSIDE RECORDS SUMMARY | 2025-02-21 13:34 | XMS_ITS | Encounter Summary ---
Author Organization [employer] Address [address] [place] [address] Care Team Providers Care Complaint Specialist Name Role Phone Unavailable Primary Care Provider Unavailabl e Encounter Details Date Type Department Care Team (Late st Contact Info) Description 03/02/2022 Transcribed Document [facility] Family Medicine [address] [place] [address] ProviderFlorentino MD [address] [place] [address] Social History Tobacco Use Types Packs/Day Years Used Date Smoking Tobacco: Never Assessed Comments Unknown Sex and Gender Information Value Date Recorded Sex Assigned at Not on file Legal Sex Female 1:44 PM CDT Gender Identity Not on file Sexual Orientation Not on file documented as of this encounter Miscellaneous Notes * Cerner Conversion Note - Florentino ProviderMD - 03/02/2022 2:00 PM CDT Patient: ALYSSA AZUL Age: 61 Years Sex: Female : 1960 Subjective DOS 03/02/2022 Seen and examined at bedside in ICU. Avrbhtby-qk-noy present and all question answered. Patient ventilated/sedated. However following commands. Nurse reports thick sputum and spikes of temp Vital Signs T: 38.1 ??C TMIN: 36.8 ??C TMAX: 38.8 ??C HR: 81(Monitored) RR: 20 BP: 134/64 SpO2: 95% HT: 162.56 cm WT: 90 kg BMI: 34.1 Oxygen Settings (Last) Oxygen Therapy Mode: Mechanical ventilation (03/02/22 12:00:00) Intake & Output Totals Last 24 Hours (7a-7a) Input Total: 981.2717 mL Output Total: 2200 mL Balance: -1218.7283 mL Physical Exam General: No acute distress, [...] appreciated- recommend wound care consult - d/w healthcare prof today- wound vac applied on 02/24 pneumonia [...] the patient due to divert status. Summary [facility] stay: patient admitted to [facility] on 02/17/22, temp in ER of [...] necrosis. no pathology sent. Patient transferred to [facility] at midnight on 02/22. 02/22: extubated, given [...] chest abdomen pelvis May need palliative care Disposition: critically ill, in ICU, high risk and complexity patient pending consultants' recommendations, discharge is uncertain at this time VTE Prophylaxis - Medical Heparin 5,000 Units, SubCutaneous, Inj, Q8H, Routine, Start 03/01/22 22:00:00 EDT, 03/01/22 19:01:00 EDT (DIANA GENI A) Sequential Compression Device Start: 03/01/22 19:03:00 EDT, Bilateral, Length: Knee High, While patient is in bed, [facility] Sequential Compression Device Start: 03/01/22 18:51:00 EDT, Bilateral, Length: Knee High, While patient is in bed, Continuous Order [facility]) Medications Dextrose 50% injection, 25 Gram= [...] 8.8 mg= 5 mL, Oral, At Bedtime Zofran, 4 mg= 2 mL, IV Push, Q6H, PRN Zosyn + Sodium Chloride 0.9% intravenous solution 50 mL Lab Results Test Name Test Result Date/Time pH Art 7.43 03/02/2022 06:43 EDT pH Art 7.37 03/01/2022 18:45 EDT pCO2 Art 35.8 mmHg 03/02/2022 06:43 EDT pCO2 Art 39.2 mmHg 03/01/2022 18:45 EDT pO2 Art 76.7 mmHg (Low) 03/02/2022 06:43 EDT pO2 Art 80.1 mmHg 03/01/2022 18:45 EDT HCO3 Art 23.6 mmol/L 03/02/2022 06:43 EDT HCO3 Art 22.4 mmol/L 03/01/2022 18:45 EDT BE Art -0.6 mmol/L 03/02/2022 06:43 EDT BE Art -2.7 mmol/L (Low) 03/01/2022 18:45 EDT sO2 Art 97.3 % 03/02/2022 06:43 EDT sO2 Art 96.0 % 03/01/2022 18:45 EDT tHb Art 7.9 Gram/dL (Low) 03/02/2022 06:43 EDT tHb Art 8.9 Gram/dL (Low) 03/01/2022 18:45 EDT FHHb 2.6 % 03/02/2022 06:43 EDT FHHb 3.9 % 03/01/2022 18:45 EDT ctO2 10.6 mmol/L 03/02/2022 06:43 EDT ctO2 11.9 mmol/L 03/01/2022 18:45 EDT FIO2 Art 40 03/02/2022 06:43 EDT FIO2 Art 75 03/01/2022 18:45 EDT Delivery Device Type Art Ventilator 03/02/2022 06:43 EDT Delivery Device Type Art Ventilator 03/01/2022 18:45 EDT Temperature, F Art 98.6 Deg F 03/02/2022 06:43 EDT Temperature, F Art 98.6 Deg F 03/01/2022 18:45 EDT Art Blood Gas (ABG) Site Arterial Line 03/02/2022 06:43 EDT Art Blood Gas (ABG) Site Arterial Line 03/01/2022 18:45 EDT Acceptable Huang's Test Art Acceptable 03/02/2022 06:43 EDT Acceptable Huang's Test Art Non-Applicable 03/01/2022 18:45 EDT Ventilator Mode Art Assist Control Ventilation 03/02/2022 06:43 EDT Ventilator Mode Art AC 03/01/2022 18:45 EDT Tidal Volume Set Art 400.0 mL 03/02/2022 06:43 EDT Tidal Volume Set Art 400.0 mL 03/01/2022 18:45 EDT Set Rate Art 16.0 03/02/2022 06:43 EDT Set Rate Art 16.0 03/01/2022 18:45 EDT Respiratory Rate Art 16.0 03/02/2022 06:43 EDT Respiratory Rate Art 16.0 03/01/2022 18:45 EDT CPAP/PEEP Art 5.0 cmH2O 03/02/2022 06:43 EDT CPAP/PEEP Art 5.0 cmH2O 03/01/2022 18:45 EDT Comment Art supine 03/01/2022 18:45 EDT ABG Num of Draw Attempts 1 03/02/2022 06:43 EDT ABG Num of Draw Attempts 1 03/01/2022 18:45 EDT PaO2/FiO2 calculated 192 03/02/2022 06:43 EDT PaO2/FiO2 calculated 107 03/01/2022 18:45 EDT Sodium Level 144 mmol/L 03/02/2022 03:43 EDT Sodium Level 144 mmol/L 03/01/2022 21:01 EDT Potassium Level 3.6 mmol/L 03/02/2022 03:43 EDT Potassium Level 4.1 mmol/L 03/01/2022 21:01 EDT Chloride Level 113 mmol/L (High) 03/02/2022 03:43 EDT Chloride Level 114 mmol/L (High) 03/01/2022 21:01 EDT Carbon Dioxide Level 24 mmol/L 03/02/2022 03:43 EDT Carbon Dioxide Level 22 mmol/L 03/01/2022 21:01 EDT Anion Gap 11 03/02/2022 03:43 EDT Anion Gap 12 03/01/2022 21:01 EDT Glucose Level 157 mg/dL (High) 03/02/2022 03:43 EDT Glucose Level 193 mg/dL (High) 03/01/2022 21:01 EDT Blood Urea Nitrogen 60 mg/dL (High) 03/02/2022 03:43 EDT Blood Urea Nitrogen 61 mg/dL (High) 03/01/2022 21:01 EDT Creatinine Level 2.70 mg/dL (High) 03/02/2022 03:43 EDT Creatinine Level 2.50 mg/dL (High) 03/01/2022 21:01 EDT eGFR 22 mL/min/1.73m2 (Low) 03/02/2022 03:43 EDT eGFR 24 mL/min/1.73m2 (Low) 03/01/2022 21:01 EDT eGFR NonAfrican 18 mL/min/1.73m2 (Low) 03/02/2022 03:43 EDT eGFR NonAfrican 20 mL/min/1.73m2 (Low) 03/01/2022 21:01 EDT Bun/Creatinine 22.2 (High) 03/02/2022 03:43 EDT Bun/Creatinine 24.4 (High) 03/01/2022 21:01 EDT Calcium Level 8.5 mg/dL 03/02/2022 03:43 EDT Calcium Level 8.7 mg/dL 03/01/2022 21:01 EDT Protein Total 6.2 Gram/dL (Low) 03/02/2022 03:43 EDT Protein Total 6.3 Gram/dL (Low) 03/01/2022 21:01 EDT Albumin Level 2.3 Gram/dL (Low) 03/02/2022 03:43 EDT Albumin Level 2.4 Gram/dL (Low) 03/01/2022 21:01 EDT Globulin 3.9 Gram/dL 03/02/2022 03:43 EDT Globulin 3.9 Gram/dL 03/01/2022 21:01 EDT A/G Ratio 0.6 (Low) 03/02/2022 03:43 EDT A/G Ratio 0.6 (Low) 03/01/2022 21:01 EDT Bilirubin Total 0.4 mg/dL 03/02/2022 03:43 EDT Bilirubin Total 0.4 mg/dL 03/01/2022 21:01 EDT Alk Phos 42 Units/Liter 03/02/2022 03:43 EDT Alk Phos 46 Units/Liter 03/01/2022 21:01 EDT AST 12 Units/Liter 03/02/2022 03:43 EDT AST 10 Units/Liter 03/01/2022 21:01 EDT ALT 14 Units/Liter 03/02/2022 03:43 EDT ALT 15 Units/Liter 03/01/2022 21:01 EDT Magnesium Level 2.0 mg/dL 03/02/2022 03:43 EDT Ammonia Level 19.0 uMol/L 03/02/2022 03:43 EDT Phosphorus 4.1 mg/dL 03/02/2022 03:43 EDT Device Comment 1 Protocols Followed 03/02/2022 11:07 EDT Device Comment 1 Notified Nurse RBV 03/02/2022 05:41 EDT Device Comment 1 Notified Nurse RBV 03/01/2022 23:24 EDT Glucose POC2 182 mg/dL (High) 03/02/2022 11:07 EDT Glucose POC2 149 mg/dL (High) 03/02/2022 05:41 EDT Glucose POC2 167 mg/dL (High) 03/01/2022 23:24 EDT Lactic Acid Level 0.6 mmol/L 03/01/2022 21:01 EDT Calcium Ionized 1.18 mmol/L 03/02/2022 03:43 EDT ProBNP 9026 pg/mL (High) 03/02/2022 03:43 EDT WBC 8.5 K/uL 03/02/2022 03:43 EDT WBC 9.1 K/uL 03/01/2022 22:23 EDT WBC 10.6 K/uL (High) 03/01/2022 21:01 EDT RBC 2.69 Million/uL (Low) 03/02/2022 03:43 EDT RBC 2.73 Million/uL (Low) 03/01/2022 22:23 EDT RBC 2.78 Million/uL (Low) 03/01/2022 21:01 EDT Hgb 7.5 g/dL (Low) 03/02/2022 03:43 EDT Hgb 7.6 g/dL (Low) 03/01/2022 22:23 EDT Hgb 7.9 g/dL (Low) 03/01/2022 21:01 EDT Hct 24.6 % (Low) 03/02/2022 03:43 EDT Hct 25.0 % (Low) 03/01/2022 22:23 EDT Hct 25.5 % (Low) 03/01/2022 21:01 EDT MCV 91.4 fL 03/02/2022 03:43 EDT MCV 91.6 fL 03/01/2022 22:23 EDT MCV 91.7 fL 03/01/2022 21:01 EDT MCH 27.9 pg 03/02/2022 03:43 EDT MCH 27.8 pg 03/01/2022 22:23 EDT MCH 28.4 pg 03/01/2022 21:01 EDT MCHC 30.5 Gram/dL (Low) 03/02/2022 03:43 EDT MCHC 30.4 Gram/dL (Low) 03/01/2022 22:23 EDT MCHC 31.0 Gram/dL (Low) 03/01/2022 21:01 EDT Platelet Count 196 K/uL 03/02/2022 03:43 EDT Platelet Count 203 K/uL 03/01/2022 22:23 EDT Platelet Count 208 K/uL 03/01/2022 21:01 EDT MPV 10.0 fL 03/02/2022 03:43 EDT MPV 10.1 fL 03/01/2022 22:23 EDT MPV 9.6 fL 03/01/2022 21:01 EDT RDW 14.2 % 03/02/2022 03:43 EDT RDW 14.2 % 03/01/2022 22:23 EDT RDW 14.1 % 03/01/2022 21:01 EDT Neut % 78.0 % (High) 03/02/2022 03:43 EDT Neut # 6.60 K/uL 03/02/2022 03:43 EDT Lymph % 14.7 % (Low) 03/02/2022 03:43 EDT Lymph # 1.24 K/uL 03/02/2022 03:43 EDT [place] % 6.9 % 03/02/2022 03:43 EDT [place] # 0.58 K/uL 03/02/2022 03:43 EDT Eos % 0.2 % 03/02/2022 03:43 EDT Eos # 0.02 03/02/2022 03:43 EDT Baso % 0.2 % 03/02/2022 03:43 EDT Baso # 0.02 03/02/2022 03:43 EDT Neutrophil Percent Man 82 % (High) 03/02/2022 03:43 EDT Neutrophil Percent Man 85 % (High) 03/01/2022 22:23 EDT Neutrophil Percent Man 91 % (High) 03/01/2022 21:01 EDT Band Percent Man 3 % (Low) 03/02/2022 03:43 EDT Band Percent Man 2 % (Low) 03/01/2022 22:23 EDT ANC # 7 K/uL 03/02/2022 03:43 EDT ANC # 8 K/uL 03/01/2022 22:23 EDT ANC # 10 K/uL 03/01/2022 21:01 EDT Lymph Percent Man 12 % (Low) 03/02/2022 03:43 EDT Lymph Percent Man 6 % (Low) 03/01/2022 22:23 EDT Lymph Percent Man 7 % (Low) 03/01/2022 21:01 EDT ALYC # 1 K/uL 03/02/2022 03:43 EDT ALYC # 1 K/uL 03/01/2022 22:23 EDT ALYC # 1 K/uL 03/01/2022 21:01 EDT [place] Percent Man 2 % (Low) 03/02/2022 03:43 EDT [place] Percent Man 5 % 03/01/2022 22:23 EDT [place] Percent Man 2 % (Low) 03/01/2022 21:01 EDT Eos Percent Man 0 % 03/02/2022 03:43 EDT Baso Percent Man 0 % 03/02/2022 03:43 EDT Myelo Percent Man 1 % 03/02/2022 03:43 EDT Myelo Percent Man 2 % (High) 03/01/2022 22:23 EDT NRBC 1 (High) 03/01/2022 22:23 EDT RBC Morphology Abnormal 03/02/2022 03:43 EDT RBC Morphology Normal 03/01/2022 22:23 EDT RBC Morphology Normal 03/01/2022 21:01 EDT Anisocytosis 1+ (Abnormal) 03/02/2022 03:[address] Estimate Adequate 03/02/2022 03:[address] Estimate Adequate 03/01/2022 22:[address] Estimate Adequate 03/01/2022 21:01 EDT Slide Review No 03/02/2022 03:43 EDT Slide Review Add Diff 03/01/2022 22:23 EDT Slide Review Add Diff 03/01/2022 21:01 EDT PT 11.0 Second(s) 03/02/2022 03:43 EDT INR 1.0 03/02/2022 03:43 EDT PTT 24.6 Second(s) 03/02/2022 03:43 EDT Procalcitonin 0.42 ng/mL 03/02/2022 03:43 EDT Acceptable specimen Yes,see culture 03/01/2022 22:23 EDT A. calco-baumannii complex Not Detected 03/01/2022 22:23 EDT Enterobacter cloacae complex Not Detected 03/01/2022 22:23 EDT Escherichia coli Not Detected 03/01/2022 22:23 EDT Haemophilus influenzae Not Detected 03/01/2022 22:23 EDT Klebsiella aerogenes Not Detected 03/01/2022 22:23 EDT Klebsiella oxytoca Not Detected 03/01/2022 22:23 EDT Klebsiella pneumoniae group Detected (Abnormal) 03/01/2022 22:23 EDT Moraxella catarrhalis Not Detected 03/01/2022 22:23 EDT Proteus Not Detected 03/01/2022 22:23 EDT Pseudomonas aeruginosa Not Detected 03/01/2022 22:23 EDT Serratia marcescens Not Detected 03/01/2022 22:23 EDT Staphylococcus aureus Detected (Abnormal) 03/01/2022 22:23 EDT Streptococcus agalactiae Not Detected 03/01/2022 22:23 EDT Streptococcus pneumoniae Not Detected 03/01/2022 22:23 EDT Streptococcus pyogenes Not Detected 03/01/2022 22:23 EDT Chlamydia pneumoniae Not Detected 03/01/2022 22:23 EDT Legionella pneumophila Not Detected 03/01/2022 22:23 EDT Mycoplasma pneumoniae Not Detected 03/01/2022 22:23 EDT CTX-M (ESBL) Not Detected 03/01/2022 22:23 EDT IMP (Carbapenemase) Not Detected 03/01/2022 22:23 EDT KPC (Carbapenemase) Not Detected 03/01/2022 22:23 EDT mecA/C and MREJ (Methicillin resistance) Not Detected 03/01/2022 22:23 EDT NDM (Carbapenemase) Not Detected 03/01/2022 22:23 EDT OXA-48-like (Carbapenemase) Not Detected 03/01/2022 22:23 EDT VIM (Carbapenemase) Not Detected 03/01/2022 22:23 EDT Adenovirus Not Detected 03/01/2022 22:23 EDT Coronavirus (Not COVID-19) Not Detected 03/01/2022 22:23 EDT Human metapneumovirus Not Detected 03/01/2022 22:23 EDT Influenza A Not Detected 03/01/2022 22:23 EDT Influenza B Not Detected 03/01/2022 22:23 EDT Parainfluenza virus Not Detected 03/01/2022 22:23 EDT Respiratory Syncytial Virus Not Detected2 03/01/2022 22:23 EDT Rhinovirus/Enterovirus Not Detected 03/01/2022 22:23 EDT documented in this encounter Plan of Treatment Not on file documented as of this encounter Visit Diagnoses Not on filedocumented in this encounter
--- OUTSIDE RECORDS SUMMARY | 2025-02-21 13:34 | XMS_ITS | Encounter Summary ---
Author Organization [employer] Address [address] [place] [address] Care Team Providers Care Dag Sprayer Name Role Phone Unavailable Primary Care Provider Unavailabl e Encounter Details Date Type Department Care Team (Late st Contact Info) Description 05/08/2022 Transcribed Document [facility] [place] [facility] [place] [address] ProviderFlorentino MD [address] [place] [address] Social History Tobacco Use Types Packs/Day Years Used Date Smoking Tobacco: Never Assessed Comments Unknown Sex and Gender Information Value Date Recorded Sex Assigned at Not on file Legal Sex Female 1:44 PM CDT Gender Identity Not on file Sexual Orientation Not on file documented as of this encounter Miscellaneous Notes * Cerner Conversion Note - Florentino Lynne MD - 05/08/2022 3:00 AM CDT Nutrition Assessment Entered On: 05/08/2022 9:31 EDT Performed On: 05/08/2022 14:06 EDT by CAROLINA BUTLER, RD, LD Nutrition Assessment Current Nutrition Regimen Comment : (05/08) Moderate f/u. Spoke with pt; reports eating most of breakfast and 50% lunch, but pt drinks all supplements. Pt to go home at D/C. (05/05) Moderate f/u. Pt is eating well 100% meals and receiving supplements for wound healing. Pt to receive groshong tomorrow. Possible D/C to [facility]. Pt likes straw/vijay Glucerna. Dx: Sepsis, hypotension, UTI, decubitus ulcer, A/C KD, worsening anemia PMH: HTN, paraplegia, L buttock wound with vac, DM, CKDIII, DUSTY, previous trach/PEG 2009, cardiac arrest X 2 Labs: Glu 204, BUN 34, Crea 1.5 (04/28) Alb 2.7, FSB, 181, 217 Meds: Vit C, ppi, fe, ssi, heparin, kylie-q, omega 3-FA, abx Skin: Stg IV L trochanter, DTI B heels, DTI R great toe LBM: + (05/08) Diet: 60 gram consistent carb + Glucerna BID and Prasanth BID PO Intake: 50-100% meals Ht: 5'6 Admit wt: 177.9#, no new wt (05/05), (05/08) IBW: 130#/137% IBW BMI: 28.[address], JOHN - 05/08/2022 14:03 EDT Nutrition Assessment Reason : Follow Up CAROLINA BUTLER RD, JOHN - 05/08/2022 9:31 EDT Nutrition Diagnoses Nutrient Intake : Increased nutrient needs Nutrient Intake Related to : skin integrity Nutrient Intake As Evidenced by : Stg IV L trochanter, DTI B heels, DTI R great toe Nutrient Intake Status : Active Increased Nutrient Needs Comment : protein CAROLINA BUTLER RD, JOHN - 05/08/2022 14:03 EDT Nutrition Interventions Meals and Snacks : Carbohydrate-modified diet Nutrition Supplement Therapy : Commercial beverage CAROLINA BUTLER RD, LD - 05/08/2022 14:03 EDT Monitoring/Evaluation Energy Intake : Total energy intake Food Intake : Amount of food Protein Intake : Total protein Weight Status : Weight Maintanence Gastrointestinal Function : Bowel Function Integumentary : Pressure Ulcer Status CAROLINA BUTLER RD, LD - 05/08/2022 14:03 EDT Nutrition Recommendations Dietitian Recommendations : 1. Continue current diet. RD to continue Glucerna BID and Prasanth BID. Goal: >50% meals + ONS for wound healing 2. Monitor wt X 1 weekly Goal: avoid significant unintended wt loss Nutrition risk: moderate CAROLINA BUTLER RD, JOHN - 05/08/2022 14:03 EDT documented in this encounter Plan of Treatment Not on file documented as of this encounter Visit Diagnoses Not on filedocumented in this encounter
--- OUTSIDE RECORDS SUMMARY | 2025-02-21 13:34 | XMS_ITS | Encounter Summary ---
Author Organization [employer] Address [address] [place] [address] Care Team Providers Care Potato Picker Name Role Phone Unavailable Primary Care Provider Unavailabl e Encounter Details Date Type Department Care Team (Late st Contact Info) Description 03/03/2022 Transcribed Document [facility] [place] [address] [place] [address] ProviderFlorentino MD [address] [place] [address] Social History Tobacco Use Types Packs/Day Years Used Date Smoking Tobacco: Never Assessed Comments Unknown Sex and Gender Information Value Date Recorded Sex Assigned at Not on file Legal Sex Female 1:44 PM CDT Gender Identity Not on file Sexual Orientation Not on file documented as of this encounter Miscellaneous Notes * Cerner Conversion Note - Historical ProviderMD - 03/03/2022 5:00 PM CDT Chart Check - Review Order Profile Entered On: 03/03/2022 18:47 EDT Performed On: 03/03/2022 17:00 EDT by Adonay Montero Rn Chart Check Powerplans Initiated/Discontinued as Appropriate : Yes All Active Orders Reviewed : Yes Adonay Montero Rn - 03/03/2022 18:46 EDT Electronically signed by Sumaya [facility] Conversion Assistant Professor Of Biochemistry Cerner at 12/21/2022 5:00 PM CDT documented in this encounter Plan of Treatment Not on file documented as of this encounter Visit Diagnoses Not on filedocumented in this encounter
--- OUTSIDE RECORDS SUMMARY | 2025-02-21 13:34 | XMS_ITS | Encounter Summary ---
Author Organization [employer] Address [address] [place] [address] Care Team Providers Care Blasting Miner Name Role Phone Unavailable Primary Care Provider Unavailabl e Encounter Details Date Type Department Care Team (Late st Contact Info) Description 05/12/2022 Transcribed Document [facility] [place] Family Medicine [address] [place] [address] ProviderFlorentino MD [address] [place] [address] Social History Tobacco Use Types Packs/Day Years Used Date Smoking Tobacco: Never Assessed Comments Unknown Sex and Gender Information Value Date Recorded Sex Assigned at Not on file Legal Sex Female 1:44 PM CDT Gender Identity Not on file Sexual Orientation Not on file documented as of this encounter Miscellaneous Notes * Cerner Conversion Note - Historical ProviderMD - 05/12/2022 2:00 AM CDT Ornamental Metal Erector Apprentice Details Entered On: 05/12/2022 2:49 EDT Performed On: 05/12/2022 2:00 EDT by Casey Palacios Non Emp RN Order Details Transport Mode Order Detail : Stretcher/Gurney Isolation Precautions Order Detail : Standard Precautions Order Detail : 0 IV Order Detail : 1 Oxygen Order Detail : 0 Nurse Collect Order Detail : 0 Lift/Transfer : Maximal assist Central Line Order Detail : No Room Service : Appropriate Arterial Line : No Patient Needs Meds Crushed/Liquid : No Casey Palacios Non Emp RN - 05/12/2022 2:49 EDT documented in this encounter Plan of Treatment Not on file documented as of this encounter Visit Diagnoses Not on filedocumented in this encounter
--- OUTSIDE RECORDS SUMMARY | 2025-02-21 13:34 | XMS_ITS | Encounter Summary ---
Author Organization [employer] Address [address] [place] [address] Care Team Providers Care Underwriting Clerk Name Role Phone Unavailable Primary Care Provider Unavailabl e Encounter Details Date Type Department Care Team (Late st Contact Info) Description 04/26/2022 Transcribed Document [facility] [place] [address] [place] [address] ProviderFlorentino MD [address] [place] [address] Social History Tobacco Use Types Packs/Day Years Used Date Smoking Tobacco: Never Assessed Comments Unknown Sex and Gender Information Value Date Recorded Sex Assigned at Not on file Legal Sex Female 1:44 PM CDT Gender Identity Not on file Sexual Orientation Not on file documented as of this encounter Miscellaneous Notes * Cerner Conversion Note - Florentino Lynne MD - 04/26/2022 9:38 AM CDT Final Discharge Planning Entered On: 04/26/2022 9:38 EDT Performed On: 04/26/2022 9:38 EDT by ERIK GALARZA Patient Account Specialist-Manager Asset Management Final Discharge Planning Transportation Needs : Family/Friend Is Patient High/Moderate Readmission Risk? : Yes Patient/Family Notified of Plan : Yes Support Person/Pt Rep Notified of Plan : Yes Is Patient Ready for Discharge? : Yes Physician Notified Patient is Ready for Discharge? : Yes Discharge To Care Management : Home Health Services (Related/SOC within 3 days)-06 ERIK GALARZA Patient Account Specialist-Manager Asset Management - 04/26/2022 9:39 EDT Discharge Arrangements : Patient Post-Acute Information Patient Name: ALYSSA AZUL Gender: Female : 60 Age: 61 Years No Post-Acute Placement(s) Listed No Post-Acute Service(s) Listed No [place] Referral(s) Listed Patient Offered Choice/Affiliations Explained : Yes Designation of Choice Signed : Yes Follow Up Appointment Scheduled : No ERIK GALARZA, Patient Account Specialist-Manager Asset Management - 04/26/2022 9:38 EDT Final Narrative Note Final Narrative Note : Patient is discharging home with HH through [facility]. She has transport home. DOC signed. NO other needs identified. ERIK GALARZA Patient Account Specialist-Manager Asset Management - 04/26/2022 9:40 EDT documented in this encounter Plan of Treatment Not on file documented as of this encounter Visit Diagnoses Not on filedocumented in this encounter
--- OUTSIDE RECORDS SUMMARY | 2025-02-21 13:34 | XMS_ITS | Encounter Summary ---
Author Organization [facility] Address [address] [place] [address] Care Team Providers Care Chief Diversity Officer Name Role Phone Unavailable Primary Care Provider Unavailabl e Encounter Details Date Type Department Care Team (Late st Contact Info) Description 05/08/2022 Transcribed Document [facility] [place] Family Medicine [address] [place] [address] ProviderFlorentino MD [address] [place] [address] Social History Tobacco Use Types Packs/Day Years Used Date Smoking Tobacco: Never Assessed Comments Unknown Sex and Gender Information Value Date Recorded Sex Assigned at Not on file Legal Sex Female 1:44 PM CDT Gender Identity Not on file Sexual Orientation Not on file documented as of this encounter Miscellaneous Notes * Cerner Conversion Note - Florentino Lynne MD - 05/08/2022 1:50 PM CDT On Going Discharge Planning Entered On: 05/08/2022 13:50 EDT Performed On: 05/08/2022 13:50 EDT by ERIK GALARZA Miller Apprentice-Dialysis Social Worker Care Management Progress Note Discharge Arrangements : [...] Attend Multidisciplinary Rounds? : No ERIK GALARZA, Miller Apprentice-Dialysis Social Worker - 05/08/2022 13:50 EDT Narrative Progress Note Narrative Progress Note [...] find services for patient today. [facility] is looking at patient to see if they can offer patient a bed. Cm called [facility] and they cannot accept patient due to not have skilled benefits. CM called [facility] but had to leave a message. CM faxed patient to [facility]. [facility] is going to re-look at patient. Cm will continue to follow. Historical Progress Note : CM spoke with patient about going home tomorrow or Thursday after IV abx completion. Patient stated that she wants to go to [facility] or [facility]. She stated that she needs rehab but [...] Cm will continue to follow. ERIK GALARZA, Miller Apprentice-Dialysis Social Worker - 05/07/22 09:50:44 Patient will be on iv abx until 05/08. She will then need to discharge home with family. Can't receive HH due to insurance and location. Will likely need outpatient wound care follow up. Need resources from a place from mom. Maybe a trapeze bar. Cm will continue to follow. ERIK GALARZA, Miller Apprentice-Dialysis Social Worker - 05/06/22 14:19:48 RRS HIGH, LOS 3, ELOS 3 Cefepime and micafungin iv until 9.8-Per [employer], rxs at at home are covered at 100%--PICC was refused by pt so will get groshong but can't be placed until 9.6. Pt is seeking [facility] and per liaison, [facility] administration has declined referral. Referrals were made 9.1 and per signature, the denial was based on pt's insurance. Preferred snf, [facility] both declined. One interested facility[facility] was updated. Per [facility], pt's insurance is Aetna [employer] [facility] [place] and there are no accepting HH agencies [...] he son and D-I-L work. TRISTAN TAYLOR, RN-Tax Collector - 05/02/22 15:55:36 RRS HIGH, LOS 2, ELOS 3 Discharged 8.27 and readmitted 8.28 Sepsis-uti Cefepime and micafungin iv until 9.8 Per [facility], pt's insurance is aetna Medicaid with 2nd as [place] Medicaid. Pt agreed to [facility] referral with [facility]. Per patricia, pt is declined. Pt agreed to [facility] snfs and 2nd to [place]. If pt discharges to home because there are no acceting snfs, only insurance accepted [place] Medicaid NOT aetna Medicaid. Will need precert for snf and potential transportation. TRISTAN TAYLOR, RN-Tax Collector - 05/01/22 15:43:47 Patient is now on IV abx, Receiving wound care. Patient stated that she wants to go home. Family informed nursing that patient needs rehab. Nursing told family that they need to discuss this with patient and patient continues to state she wants to go home. Cm called [facility]. They can only accept patient if she truly does have straight Medicaid and not Aetna. CM will confirm insurance on 05/01/2022. CM will continue to follow. ERIK GALARZA, Miller Apprentice-Dialysis Social Worker - 04/30/22 14:16:00 ERIK GALARZA, Miller Apprentice-Dialysis Social Worker - 05/08/2022 13:50 EDT documented in this encounter Plan of Treatment Not on file documented as of this encounter Visit Diagnoses Not on filedocumented in this encounter
--- OUTSIDE RECORDS SUMMARY | 2025-02-21 13:34 | XMS_ITS | Encounter Summary ---
Author Organization [employer] [facility] Address [address] [place] [address] Care Team Providers Care High School Industrial Arts Teacher Name Role Phone Unavailable Primary Care Provider Unavailabl e Encounter Details Date Type Department Care Team (Late st Contact Info) Description 05/11/2022 Transcribed Document [facility] [place] Family Medicine [address] [place] [address] ProviderFlorentino MD [address] [place] [address] Social History Tobacco Use Types Packs/Day Years Used Date Smoking Tobacco: Never Assessed Comments Unknown Sex and Gender Information Value Date Recorded Sex Assigned at Not on file Legal Sex Female 1:44 PM CDT Gender Identity Not on file Sexual Orientation Not on file documented as of this encounter Miscellaneous Notes * Cerner Conversion Note - Florentino Lynne MD - 05/11/2022 3:13 PM CDT Patient: ALYSSA AZUL Age: 62 Years Sex: Female : 1960 Subjective Date of service May 11, 2022 The patient reports no acute events overnight. Nursing staff report that she remains afebrile with stable vital signs and saturating appropriately on room air. Review of systems Constitutional: No fever, no chills Respiratory: No acute dyspnea, no cough Cardiovascular: No chest pain, no palpitation, no increasing pedal edema GI: No nausea, vomiting or diarrhea Neuro: No confusion, no acute motor or sensory changes Vital Signs T: 36.6 ??C TMIN: 36.4 ??C TMAX: 36.9 ??C HR: 93(Monitored) RR: 18 BP: 129/91 SpO2: 96% Oxygen Settings (Last) Oxygen Therapy Mode: Room air (05/11/22 08:54:00) Intake & Output Totals Last 24 Hours (7a-7a) Input Total: 0.5 mL Output Total: 1300 mL Balance: -1299.5 mL Physical Exam General: Alert and oriented, [...] therapy evaluations The patient is hospitalized day 12 with above diagnoses. We appreciate infectious disease [...] Scale A:, SubCutaneous, AC and at Bedtime [place] 5 mg-325 mg oral tablet, 1 Tab, Oral, Q6H, PRN Pepcid, 20 mg= 1 Tab, Oral, At Bedtime PRAVAstatin, 40 mg= 2 Tab, Oral, At Bedtime Vitamin C, 500 mg= 1 Tab, Oral, BID Lab Results Test Name Test Result Date/Time Sodium Level 133 mmol/L (Low) 05/11/2022 06:02 EDT Potassium Level 5.5 mmol/L (High) 05/11/2022 06:02 EDT Chloride Level 106 mmol/L 05/11/2022 06:02 EDT Carbon Dioxide Level 23 mmol/L 05/11/2022 06:02 EDT Anion Gap 10 05/11/2022 06:02 EDT Glucose Level 203 mg/dL (High) 05/11/2022 06:02 EDT Blood Urea Nitrogen 49 mg/dL (High) 05/11/2022 06:02 EDT Creatinine Level 1.60 mg/dL (High) 05/11/2022 06:02 EDT eGFR 40 mL/min/1.73m2 (Low) 05/11/2022 06:02 EDT eGFR NonAfrican 33 mL/min/1.73m2 (Low) 05/11/2022 06:02 EDT Bun/Creatinine 30.6 (High) 05/11/2022 06:02 EDT Calcium Level 9.9 mg/dL 05/11/2022 06:02 EDT Device Comment 1 Notified Nurse RBV 05/11/2022 10:29 EDT Device Comment 1 Notified Nurse RBV 05/10/2022 20:26 EDT Device Comment 1 Notified MD RBV 05/10/2022 16:14 EDT Glucose POC2 224 mg/dL (High) 05/11/2022 10:29 EDT Glucose POC2 204 mg/dL (High) 05/10/2022 20:26 EDT Glucose POC2 183 mg/dL (High) 05/10/2022 16:14 EDT Electronically signed by Sumaya, [facility] Conversion Battery Container Inspector Cerner at 12/21/2022 5:04 PM CDT documented in this encounter Plan of Treatment Not on file documented as of this encounter Visit Diagnoses Not on filedocumented in this encounter
--- OUTSIDE RECORDS SUMMARY | 2025-02-21 13:34 | XMS_ITS | Encounter Summary ---
Author Organization [employer] [facility] Address [address] [place] [address] Care Team Providers Care Therapeutic Sales Specialist Name Role Phone Unavailable Primary Care Provider Unavailabl e Encounter Details Date Type Department Care Team (Late st Contact Info) Description 05/12/2022 Transcribed Document [facility] [place] [address] [place] [address] ProviderFlorentino MD [address] [place] [address] Social History Tobacco Use Types Packs/Day Years Used Date Smoking Tobacco: Never Assessed Comments Unknown Sex and Gender Information Value Date Recorded Sex Assigned at Not on file Legal Sex Female 1:44 PM CDT Gender Identity Not on file Sexual Orientation Not on file documented as of this encounter Miscellaneous Notes * Cerner Conversion Note - Florentino ProviderMD - 05/12/2022 5:00 AM CDT Chart Check - Review Order Profile Entered On: 05/12/2022 3:22 EDT Performed On: 05/12/2022 5:00 EDT by Casey Palacios Non Emp RN Chart Check Powerplans Initiated/Discontinued as Appropriate : Yes All Active Orders Reviewed : Yes Casey Palacios Non Emp RN - 05/12/2022 3:22 EDT documented in this encounter Plan of Treatment Not on file documented as of this encounter Visit Diagnoses Not on filedocumented in this encounter
--- OUTSIDE RECORDS SUMMARY | 2025-02-21 13:35 | XMS_ITS | Encounter Summary ---
Author Organization [facility] Address [address] [place] [address] Care Team Providers Care Chemistry Quality Control Technician Name Role Phone Unavailable Primary Care Provider Unavailabl e Encounter Details Date Type Department Care Team (Late st Contact Info) Description 2022 Transcribed Document [facility] [place] Medicine [address] [place] [address] ProviderFlorentino MD [address] [place], [place] [id number] Social History Tobacco Use Types Packs/Day Years Used Date Smoking Tobacco: Never Assessed Comments Unknown Sex and Gender Information Value Date Recorded Sex Assigned at Not on file Legal Sex Female 1:44 PM CDT Gender Identity Not on file Sexual Orientation Not on file documented as of this encounter Miscellaneous Notes * Cerner Conversion Note - Historical ProviderMD - 2022 2:45 PM CDT Spiritual Care Short Form Entered On: 2022 14:47 EDT Performed On: 2022 14:45 EDT by JAVI DUNCAN Chaplain General Information, Spiritual Care Spiritual Care Referred by : Family Reason for Visit : Initial Ministry Provided to : Family/Significant other Intervention/Comment/Summary Points : Provided supportive conversation and prayer as requested by a family member in the hallway, who asked for anointing and prayer for tokens she brings to [place]. Provided space and time for conversation, release of emotions, and exercise of spiritual concerns. JAVI DUNCAN Chaplain - 2022 14:45 EDT documented in this encounter Plan of Treatment Not on file documented as of this encounter Visit Diagnoses Not on filedocumented in this encounter
--- OUTSIDE RECORDS SUMMARY | 2025-02-21 13:35 | XMS_ITS | Encounter Summary ---
Author Organization [facility] [facility] Address [address] [place] [address] Care Team Providers Care Milled Lumber Grader Name Role Phone Unavailable Primary Care Provider Unavailabl e Encounter Details Date Type Department Care Team (Late st Contact Info) Description [address] [facility] [place] Family Medicine [address] [place] [address] ProviderFlorentino MD [address] [place] [address] Social History Tobacco Use Types Packs/Day Years Used Date Smoking Tobacco: Never Assessed Comments Unknown Sex and Gender Information Value Date Recorded Sex Assigned at Not on file Legal Sex Female 1:44 PM CDT Gender Identity Not on file Sexual Orientation Not on file documented as of this encounter Miscellaneous Notes * Cerner Conversion Note - Florentino Lynne MD - 2022 2:24 PM CDT UM Authorization Entered On: 2022 14:25 EDT Performed On: 2022 14:24 EDT by Mallory Sanchez, Electrolysis Investigator Primary Insurance Authorization Authorization and Policy Numbers : Insurance 1 Health Plan: [facility] Policy Number: [id number] Authorization Number: Insurance Primary Name : [facility] - [id number] Authorization Status-Primary : Denied Auth/Referral Contact Name-Primary : DC+ Reference Number-Primary : [id number]--[place] Medicaid #[id number] Number of Days Authorized-Primary : 13 Day(s) Authorized Service Begin Date-Primary : 04/08/2022 EDT Authorized Service End Date-Primary : 04/21/2022 EDT Authorization Comments-Primary : Discharge summary faxed. Historical Authorization Comments-Primary : Comment 1: Faxed c/s 04/25 via [employer]. (SARAH MORALES RN 04/25/2022 14:19) Comment 2: PER JOAQUIN @ [facility] THE MANAGERS ARE REQUESTING CLINICAL UPDATE THEY FEEL THEY WILL BE RESPONSIBLE FOR THIS BILL (Digna Kidd, Rn-Utilization Review 04/24/2022 14:50) Comment 3: Information,verified by placing a call to [place] Medicaid. Per the ocean import representative spoken to, Keila Lassiter, the care provided to this patient will be technically denied due to late notification,since the patient was admitted on 04/08/2022 and coverage with [place] Medicaid, was initiated on 03/20/2022. She further stated that the reference number provided (#[id number]) is not for billing purpose (Shilpi Street, PRIMO 04/18/2022 11:13) Comment 4: CALL RECEIVED ROM ELIZA /francheska AETNA MESSAGE LEFT STATING THAT PT IS NO LONGER AN AETNA MEMBER EFFECTIVE 03/29/2022, THEREFOR THE APPROVAL GRANTED HAS BEEN RESENDED. PER ELIZA PT IS NOW STRAIGHT MEDICAID. (Shilpi Street, PRIMO 04/18/2022 09:48) Comment 5: Rec faxed outcome of p2p scanned it to denials 2021 file and placed in tray on [employer] desk (SHERIF LYNCH, Pipe Line Maintenance Supervisor 04/16/2022 09:42) Comment 6: Per fax received 04/16 @ 0914am approved after p2p completed. Approved 04/08-04/21 NRD 04/22 (SARAH MORALES RN 04/16/2022 09:32) Comment 7: CLINICAL UPDATE FAXED VIA [employer] 04/11-04/15 ([address]pi [address] RN 04/15/2022 16:00) Comment 8: Per call to [facility] p2p line Luisa stated p2p took place yes04/14 and denial was OT/approved. Luisa did not have any idea regarding when c/s would be due. left for permit review assistant Sharon. (SARAH MORALES RN 04/15/2022 12:15) Comment 9: Per Dr Perez she is agreeable to attempt p2p on Saturday 04/14. Called Logan back and he scheduled for thursday @ 2pm with Dr William calling Dr Cabello. (SARAH MORALES RN 04/11/2022 11:09) Comment 10: Per Katie she did not receive a call to complete this p2p. Called back in & per Orville he can reschedule with a physician. Informed him that I would need to reach out to a diff physician as the one from yesterday is off service now. He stated I can call back in and reschedule. (SARAH MORALES RN 04/11/2022 10:30) Comment 11: Katie agreed to attempt p2p. Scheduled for 04/[address] William calling Katie (SARAH MORALES RN 04/09/2022 15:26) Comment 12: Message sent to Katie for p2p. She has agreed to attempt. (SARAH MORALES RN 04/09/2022 13:02) Comment 13: PER [employer] IP AUTH PENDED. CLINICAL FAXED VIA [employer] (Digna Kidd Rn-Utilization Review 04/09/2022 11:31) Comment 14: Denied per fax 04/08/22 @ [id number] no resoning noted. Placed in Denials 2021 folder. (Mallory Sanchez, Electrolysis Investigator 04/09/2022 09:43) Mallory Sanchez, Electrolysis Investigator - 2022 14:24 EDT documented in this encounter Plan of Treatment Not on file documented as of this encounter Visit Diagnoses Not on filedocumented in this encounter
--- OUTSIDE RECORDS SUMMARY | 2025-02-21 13:35 | XMS_ITS | Encounter Summary ---
Author Organization [employer] [facility] Address [address] [place] [address] Care Team Providers Care Lean Manufacturing Engineer Name Role Phone Unavailable Primary Care Provider Unavailabl e Encounter Details Date Type Department Care Team (Late st Contact Info) Description 04/14/2022 Transcribed Document [facility] [place] [address] [place] [address] ProviderFlorentino MD [address] [place] [address] Social History Tobacco Use Types Packs/Day Years Used Date Smoking Tobacco: Never Assessed Comments Unknown Sex and Gender Information Value Date Recorded Sex Assigned at Not on file Legal Sex Female 1:44 PM CDT Gender Identity Not on file Sexual Orientation Not on file documented as of this encounter Miscellaneous Notes * Cerner Conversion Note - Historical ProviderMD - 04/14/2022 2:00 AM CDT Agricultural Systems Specialist Details Entered On: 04/14/2022 1:06 EDT Performed On: 04/14/2022 2:00 EDT by Hebert Barker RN Order Details Transport Mode Order Detail : Bed (including specialty) Isolation Precautions Order Detail : Standard Precautions Order Detail : 0 IV Order Detail : 1 Oxygen Order Detail : 1 Nurse Collect Order Detail : 1 Lift/Transfer : Maximal assist Central Line Order Detail : Yes Room Service : Appropriate Arterial Line : Yes Patient Needs Meds Crushed/Liquid : No Hebert Barker RN - 04/14/2022 1:06 EDT documented in this encounter Plan of Treatment Not on file documented as of this encounter Visit Diagnoses Not on filedocumented in this encounter
--- OUTSIDE RECORDS SUMMARY | 2025-02-21 13:35 | XMS_ITS | Encounter Summary ---
Author Organization [employer] [facility] Address [address] [place] [address] Care Team Providers Care Supervisor Tile And Mottle Name Role Phone Unavailable Primary Care Provider Unavailabl e Encounter Details Date Type Department Care Team (Late st Contact Info) Description 02/26/2022 Transcribed Document [facility] [place] [facility] [place] [address] ProviderFlorentino MD [address] [place] [address] Social History Tobacco Use Types Packs/Day Years Used Date Smoking Tobacco: Never Assessed Comments Unknown Sex and Gender Information Value Date Recorded Sex Assigned at Not on file Legal Sex Female 1:44 PM CDT Gender Identity Not on file Sexual Orientation Not on file documented as of this encounter Miscellaneous Notes * Cerner Conversion Note - Florentino ProviderMD - 02/26/2022 11:04 AM CDT Therapy Screen, PT Entered On: 02/26/2022 11:07 EDT Performed On: 02/26/2022 11:04 EDT by PRAKASH RÍOS, PT Therapy Screen, PT Medical Chart Reviewed : Yes Person Providing Information : Nurse, Patient Screen Completed : Yes Recommendation for Evaluation, PT : None Recommendations Upon Discharge : None Additional Therapy Screen Comment : Pt is paraplegic and is appropriate for OT to work on BUEstrengthening. Pt is W/C bound at baseline and does not have W/C at hospital. PT orders will be appropriate as pt's UEstrength improves and pt is able to work on transfers. Defer to OT for now. PRAKASH RÍOS, PT - 02/26/2022 11:04 EDT Electronically signed by Sumaya [facility] Conversion Metrology Technician Cerner at 12/21/2022 5:01 PM CDT documented in this encounter Plan of Treatment Not on file documented as of this encounter Visit Diagnoses Not on filedocumented in this encounter
--- OUTSIDE RECORDS SUMMARY | 2025-02-21 13:35 | XMS_ITS | Encounter Summary ---
Author Organization [facility] Address [address] [place] [address] Care Team Providers Care Improvement Rn Name Role Phone Unavailable Primary Care Provider Unavailabl e Encounter Details Date Type Department Care Team (Late st Contact Info) Description 04/30/2022 Transcribed Document [facility] [place] Family Medicine [address] [place] [address] ProviderFlorentino MD [address] [place] [address] Social History Tobacco Use Types Packs/Day Years Used Date Smoking Tobacco: Never Assessed Comments Unknown Sex and Gender Information Value Date Recorded Sex Assigned at Not on file Legal Sex Female 1:44 PM CDT Gender Identity Not on file Sexual Orientation Not on file documented as of this encounter Miscellaneous Notes * Cerner Conversion Note - Florentino Lynne MD - 04/30/2022 12:52 PM CDT UM Authorization Entered On: 04/30/2022 12:53 EDT Performed On: 04/30/2022 12:52 EDT by SHERIF LYNCH, Assistant Plant Manager Primary Insurance Authorization Authorization and Policy Numbers : Insurance 1 Health Plan: [facility] Policy Number: [id number] Authorization Number: Insurance 2 Health Plan: MEDICAID [facility] Policy Number: [id number] Authorization Number: Insurance Primary Name : [facility] Policy Number: [id number] Authorization Status-Primary : Denied Authorized Service Begin Date-Primary : 2022 EDT Authorization Comments-Primary : Rec faxed Denial from [facility] 04/30/22 placed in tray on JJs desk Historical Authorization Comments-Primary : Comment 1: Faxed initial clinicals via [employer]. (SARAH MORALES RN 2022 11:46) SHERIF LYNCH, Assistant Plant Manager - 04/30/2022 12:52 EDT Electronically signed by Sumaya [facility] Conversion Slubber Tender Cerner at 12/21/2022 5:02 PM CDT documented in this encounter Plan of Treatment Not on file documented as of this encounter Visit Diagnoses Not on filedocumented in this encounter
--- OUTSIDE RECORDS SUMMARY | 2025-02-21 13:35 | XMS_ITS | Encounter Summary ---
Author Organization [employer] [facility] Address [address] [place] [address] Care Team Providers Care Pillowcase Cleaner Name Role Phone Unavailable Primary Care Provider Unavailabl e Encounter Details Date Type Department Care Team (Late st Contact Info) Description 04/30/2022 Transcribed Document [facility] [place] Family Medicine [facility] [place] [address] ProviderFlorentino MD [address] [place] [address] Social History Tobacco Use Types Packs/Day Years Used Date Smoking Tobacco: Never Assessed Comments Unknown Sex and Gender Information Value Date Recorded Sex Assigned at Not on file Legal Sex Female 1:44 PM CDT Gender Identity Not on file Sexual Orientation Not on file documented as of this encounter Miscellaneous Notes * Cerner Conversion Note - Florentino Lynne MD - 04/30/2022 9:00 AM CDT WO Inpatient Documentation Entered On: 04/30/2022 11:46 EDT Performed On: 04/30/2022 10:00 EDT by Edwina Fraire [id number]-Bwyqvohryto Therapy WOCN Admission Date : Admit Date 2022 00:[address] : Diagnosis (5) Hypotension, unspecified Type 2 diabetes mellitus without complications Other symptoms and signs involving the genitourinary system Chronic kidney disease, stage 3 unspecified Pressure ulcer of unspecified buttock, unspecified stage Reason for WOCN Visit : Assessment, ongoing, Dressing change Admitting Diagnosis ST : Reason for Admission sepsis, acute uti WOCN Assessment Summary : Wound care team consulted to manage NPWT. Wound care steam plant control room operator at bedside patient on HENRIETTA surface. Removed AKANKSHA 7 to left trochanter stage 4 with DTPI to medial edge of wound bed and cleansed wound with saline wound wash, pat dry, measured at 4.0cmx7.0cmx1.5cm. Wound care steam plant control room operator recommends to D/C AKANKSHA due to change in wound presentation and apply collagen to wound bed and cover with silicone dressing. Wound care steam plant control room operator will follow up to assess. Wound care steam plant control room operator noted DTPI to right medial great toe and both heels (POA) offloading boots recommendated. If any changes to skin integrity please consult wound care dept. Urostomy is intact attached to drain bag. Edwina Fraire, OED-AEJ-Onvbhtoopol Therapy - 04/30/2022 11:36 EDT Electronically signed by Sumaya [facility] Conversion Climatology Professor Cerner at 12/21/2022 5:07 PM CDT documented in this encounter Plan of Treatment Not on file documented as of this encounter Visit Diagnoses Not on filedocumented in this encounter
--- OUTSIDE RECORDS SUMMARY | 2025-02-21 13:35 | XMS_ITS | Encounter Summary ---
Author Organization [employer] Address [address] [place] [address] Care Team Providers Care Assistant Athletic Trainer Name Role Phone Unavailable Primary Care Provider Unavailabl e Encounter Details Date Type Department Care Team (Late st Contact Info) Description 04/30/2022 Transcribed Document [facility] [place] Medicine [address] [place] [address] ProviderFlorentino MD [address] [place] [address] Social History Tobacco Use Types Packs/Day Years Used Date Smoking Tobacco: Never Assessed Comments Unknown Sex and Gender Information Value Date Recorded Sex Assigned at Not on file Legal Sex Female 1:44 PM CDT Gender Identity Not on file Sexual Orientation Not on file documented as of this encounter Miscellaneous Notes * Cerner Conversion Note - Historical ProviderMD - 04/30/2022 11:11 AM CDT Spiritual Care Short Form Entered On: 04/30/2022 12:48 EDT Performed On: 04/30/2022 11:11 EDT by BERENICE MURPHY General Information, Spiritual Care Spiritual Care Referred by : Poker Dealer initiated Reason for Visit : Initial Ministry Provided to : Patient Intervention/Comment/Summary Points : Initial Spiritual Care visit by volunteerYunier. BERENICE MURPHY - 04/30/2022 12:41 EDT documented in this encounter Plan of Treatment Not on file documented as of this encounter Visit Diagnoses Not on filedocumented in this encounter
--- OUTSIDE RECORDS SUMMARY | 2025-02-21 13:35 | XMS_ITS | Encounter Summary ---
Author Organization [employer] Address [address] [place] [address] Care Team Providers Care Automotive Parts Counter Associate Name Role Phone Unavailable Primary Care Provider Unavailabl e Encounter Details Date Type Department Care Team (Late st Contact Info) Description 02/26/2022 Transcribed Document [facility] [place] Family Medicine [address] [place] [address] ProviderFlorentino MD [address] [place] [address] Social History Tobacco Use Types Packs/Day Years Used Date Smoking Tobacco: Never Assessed Comments Unknown Sex and Gender Information Value Date Recorded Sex Assigned at Not on file Legal Sex Female 1:44 PM CDT Gender Identity Not on file Sexual Orientation Not on file documented as of this encounter Miscellaneous Notes * Cerner Conversion Note - Historical ProviderMD - 02/26/2022 11:[address] [facility] Entered On: 02/26/2022 11:07 EDT Performed On: 02/26/2022 11:04 EDT by PRAKASH RÍOS, PT [facility] Physical Therapy Screen : 1 PRAKASH RÍOS, PT - 02/26/2022 11:07 EDT documented in this encounter Plan of Treatment Not on file documented as of this encounter Visit Diagnoses Not on filedocumented in this encounter
--- OUTSIDE RECORDS SUMMARY | 2025-02-21 13:35 | XMS_ITS | Encounter Summary ---
Author Organization [employer] Address [address] [place] [address] Care Team Providers Care Manager Workers Compensation Name Role Phone Unavailable Primary Care Provider Unavailabl e Encounter Details Date Type Department Care Team (Late st Contact Info) Description 04/30/2022 Transcribed Document [facility] [place] [address] [place] [address] ProviderFlorentino MD [address] [place] [address] Social History Tobacco Use Types Packs/Day Years Used Date Smoking Tobacco: Never Assessed Comments Unknown Sex and Gender Information Value Date Recorded Sex Assigned at Not on file Legal Sex Female 1:44 PM CDT Gender Identity Not on file Sexual Orientation Not on file documented as of this encounter Miscellaneous Notes * Cerner Conversion Note - Florentino Lynne MD - 04/30/2022 10:36 PM CDT Patient: ALYSSA AZUL Age: 62 years Sex: Female : 1960 Associated Diagnoses: None Author: HIGINIO AREVALO MD-INF Antibiotics: Cefepime CC Sacral wound Subjective: Patient without fevers today still with elevated blood pressure heart rate stabilized Objective: Vitals Signs (last 24 hrs) Last Charted Minimum Maximum Temp 98.3 (APR 30 10:46) 98.3 (APR 30 10:46) 98.1 (APR 30 04:56) Mon HR 88 (APR 30 10:46) 84 (APR 30 04:56) 88 (APR 30 10:46) Resp Rate 17 (APR 30 10:46) 14 (APR 30 04:56) 17 (APR 30 10:46) SBP H 159 (APR 30 10:46) 122 (APR 30 04:56) H 159 (APR 30 10:46) DBP 87 (APR 30 10:46) 72 (APR 30 04:56) 87 (APR 30 10:46) MAP 121 (APR 30 10:46) 91 (APR 30 04:56) 121 (APR 30 10:46) SpO2 98 (APR 30 15:34) 98 (APR 30 15:34) 100 (APR 30 04:56) PE: General: alert, oriented x3 HEENT: sclera white without conjunctival injection. No [...] LABS: Labs (Last four charted values) WBC 4.6 (APR 30) 7.2 (APR 28) HB L 7.9 (APR 30) L 9.2 (APR 28) HCT L 25.4 (APR 30) L 29.1 (APR 28) Plt 354 (APR 30) 265 (APR 29) 318 (APR 28) Na 140 (APR 30) 137 (APR 28) K 4.4 (APR 30) 4.8 (APR 28) Cl H 116 (APR 30) 107 (APR 28) CO2 L 15 (APR 30) 22 (APR 28) BUN 21 (APR 30) H 41 (APR 28) Cr H 1.07 (APR 30) H 1.92 (APR 28) Glu R H 137 (APR 30) H 179 (APR 28) Ca L 8.2 (APR 30) 8.9 (APR 28) Lactic 0.7 (APR 29) C 5.2 (APR 28) PT 9.9 (APR 28) INR 0.9 (APR 28) AST 18 (APR 28) ALT 26 (APR 28) ALK P 73 (APR 28) T Bili 0.8 (APR 28) PTN 7.7 (APR 28) ALB L 2.7 (APR 28) MICRO: Urine culture with E. coli and Pseudomonas Wound culture with MRSA and Citrobacter, another gram-negative gaby- pending IMAGING: No Radiology Results Found IMPRESSION: -Recurrent UTI evaluate for acute UTI [...] of meropenem has possibility of resistant organisms will discontinue vancomycin with worsening acute kidney injury and continue cefepime renally adjusted 1 g every 8 hours follow-up on cultures RECOMMENDATIONS/PLANS: -D/c vancomycin Continue cefepime 1 g IV every12 hours Follow-up on cultures Add on CRP to a.m. labs monitor BMP closely documented in this encounter Plan of Treatment Not on file documented as of this encounter Visit Diagnoses Not on filedocumented in this encounter
--- OUTSIDE RECORDS SUMMARY | 2025-02-21 13:35 | XMS_ITS | Encounter Summary ---
Author Organization [employer] Address [address] [place] [address] Care Team Providers Care Employment Director Name Role Phone Unavailable Primary Care Provider Unavailabl e Encounter Details Date Type Department Care Team (Late st Contact Info) Description 2022 Transcribed Document [facility] [place] Family Medicine [address] [place] [address] ProviderFlorentino MD [address] [place] [address] Social History Tobacco Use Types Packs/Day Years Used Date Smoking Tobacco: Never Assessed Comments Unknown Sex and Gender Information Value Date Recorded Sex Assigned at Not on file Legal Sex Female 1:44 PM CDT Gender Identity Not on file Sexual Orientation Not on file documented as of this encounter Miscellaneous Notes * Cerner Conversion Note - Florentino Lynne MD - 2022 8:32 AM CDT [facility] Inpatient Documentation Entered On: 2022 9:34 EDT Performed On: 2022 9:32 EDT by Edwina Fraire LPN-LVN-Enterstomal Therapy WOCN Admission Date : Admit Date 2022 00:[address] : Diagnosis (5) Hypotension, unspecified Type 2 diabetes mellitus without complications Other symptoms and signs involving the genitourinary system Chronic kidney disease, stage 3 unspecified Pressure ulcer of unspecified buttock, unspecified stage Reason for WOCN Visit : Initial consult Admitting Diagnosis ST : Reason for Admission sepsis, acute uti WOCN Assessment Summary : Wound care consulted to assess left buttock. Wound care teamcenter consultant at bedside patient on HENRIETTA surface NPWT AKANKSHA to left trochanter intact and due to be changed on 04/30. Wound care teamcenter consultant will follow patient for NPWT. If any changes to skin ntegrity please consult wound care dept. Fraire, Edwina, SKA-TVZ-Bwnhapyhnvu Therapy - 2022 9:32 EDT Electronically signed by Sumaya, Luís Conversion Head Of Operation And Logistics Cerner at 12/21/2022 5:06 PM CDT documented in this encounter Plan of Treatment Not on file documented as of this encounter Visit Diagnoses Not on filedocumented in this encounter
--- OUTSIDE RECORDS SUMMARY | 2025-02-21 13:35 | XMS_ITS | Encounter Summary ---
Author Organization [employer] Address [address] [place] [address] Care Team Providers Care Supervisor Cold Rolling Name Role Phone Unavailable Primary Care Provider Unavailabl e Encounter Details Date Type Department Care Team (Late st Contact Info) Description 04/30/2022 Transcribed Document [facility] [place] Family Medicine [facility] [place] [address] ProviderFlorentino MD [address] [place] [address] Social History Tobacco Use Types Packs/Day Years Used Date Smoking Tobacco: Never Assessed Comments Unknown Sex and Gender Information Value Date Recorded Sex Assigned at Not on file Legal Sex Female 1:44 PM CDT Gender Identity Not on file Sexual Orientation Not on file documented as of this encounter Miscellaneous Notes * Cerner Conversion Note - Florentino Lynne MD - 04/30/2022 11:26 AM CDT Nutrition Assessment Entered On: 05/02/2022 9:58 EDT Performed On: 05/02/2022 14:35 EDT by CAROLINA BUTLER, RD, LD Nutrition Assessment Current Nutrition Regimen Comment : (05/02/22) Consult received for pressure ulcer. Pt admitted with c/o hypotension, elevated glucose, and wound to L buttock with wound vac. Pt previously at [facility] and was eating well. Dx: Sepsis, hypotension, UTI, decubitus ulcer, A/C KD, worsening anemia PMH: HTN, paraplegia, L buttock wound with vac, DM, CKDIII, DUSTY, previous trach/PEG 2009, cardiac arrest X 2 Labs: Glu 139, BUN 28, Crea 1.1, (04/28) Alb 2.7, FSB, 144, 175 Meds: Vit C, ppi, fe, ssi, heparin, kylie-q, omega 3-FA, abx Skin: Stg IV L trochanter, DTI B heels, DTI R great toe LBM: + (05/01) Diet: cardiac + Glucerna BID and Prasanth BID PO Intake: 100% X 2 meals Ht: 5'6 Admit wt: 177.9# IBW: 130#/137% IBW BMI: [address], JOHN - 05/02/2022 14:33 EDT Nutrition Assessment Reason : Automatic referral CAROLINA BUTLER RD, - 05/02/2022 9:58 EDT Nutrition Diagnoses Nutrient Intake : Increased nutrient needs Nutrient Intake Related to : skin integrity Nutrient Intake As Evidenced by : Stg IV L trochanter, DTI B heels, DTI R great toe Nutrient Intake Status : Active Increased Nutrient Needs Comment : protein CAROLINA BUTLER RD, - 05/02/2022 14:33 EDT Nutrition Interventions Meals and Snacks : Carbohydrate-modified diet, Cholesterol-modified diet, Sodium modified diet CAROLINA BUTLER RD, JOHN - 05/02/2022 14:33 EDT Monitoring/Evaluation Energy Intake : Total energy intake Food Intake : Amount of food Protein Intake : Total protein Weight Status : Weight Maintanence Gastrointestinal Function : Bowel Function Integumentary : Pressure Ulcer Status CAROLINA BUTLER RD, JOHN - 05/02/2022 14:33 EDT Nutrition Recommendations Dietitian Recommendations : 1. Add [address] RD to continue Glucerna BID and Prasanth BID. Goal: >50% meals + ONS for wound healing 2. Monitor wt X 1 weekly Goal: avoid significant unintended wt loss Nutrition risk: moderate CAROLINA BUTLER RD, JOHN - 05/02/2022 14:33 EDT documented in this encounter Plan of Treatment Not on file documented as of this encounter Visit Diagnoses Not on filedocumented in this encounter
--- OUTSIDE RECORDS SUMMARY | 2025-02-21 13:35 | XMS_ITS | Encounter Summary ---
Author Organization [employer] Address [address] [place] [address] Care Team Providers Care Manager Route Name Role Phone Unavailable Primary Care Provider Unavailabl e Encounter Details Date Type Department Care Team (Late st Contact Info) Description 04/15/2022 Transcribed Document [facility] [place] Family Medicine [facility] [place] [address] ProviderFlorentino MD [address] [place] [address] Social History Tobacco Use Types Packs/Day Years Used Date Smoking Tobacco: Never Assessed Comments Unknown Sex and Gender Information Value Date Recorded Sex Assigned at Not on file Legal Sex Female 1:44 PM CDT Gender Identity Not on file Sexual Orientation Not on file documented as of this encounter Miscellaneous Notes * Cerner Conversion Note - Florentino ProviderMD - 04/15/2022 3:00 AM CDT Nutrition Assessment Entered On: 04/15/2022 9:50 EDT Performed On: 04/15/2022 15:17 EDT by CAROLINA BUTLER, RD, LD Nutrition Assessment Current Nutrition Regimen Comment : 04/15: TF f/u. Pt passed FEES and is on a 60 gram, cardiac diet. Spoke with pt; reports eating ~50% of meals. Pt says she likes Glucerna (straw/vijay). Pt to D/C to SNF vs home with family. 04/11: High f/u. Pt was extubated yesterday and is now on 2L NC. Discussed during rounds. CRRT will be stopped this afternoon and pt will be switched to HD. PROGRAM LEAD has been consulted. EN running @ 10ml/hr via corpak, which plans to advance to goal. Pt is off pressor support and she is receiving a PRBC transfusion this morning. Dx: acute respiratory failure, severe sepsis, MSOF, JAVIER, acute pancreatitis, acute encephalopathy PMH: CKD3, DM, paraplegia, HTN, L-hip wound, previous trach/PEG (2009), cardiac arrest x2 Labs: Alb 2.2, FSB, 99, 83 Meds: Pepcid, steroid, heparin, lantus, abx, PRN Ca gluconate GI: +BS, +corpak, LBM 04/14 Skin: NPWT to L-trochanter, abrasion to L-knee, laceration to vagina, stg 2 PU to R-buttock, MASD to coccyx Diet: 60 gram consistent carb, cardiac PO intake: ~50% meals per pt Ht: 5'4 (per chart hx- varying hts on admit) Wt: 180#/81.8kg (04/08), no new wt (04/11), 89.9 kg (04/15) BMI: 27.4 IBW: 120#, 150% Est nutrient needs: 7348-2765 kcals (22-25 kcal/kg), 125+g pro (1.5 g/kg) *on CRRT, wounds CAROLINA BUTLER RD, JOHN - 04/15/2022 15:09 EDT Nutrition Assessment Reason : Follow Up, Nutrition support CAROLINA BUTLER RD, JOHN - 04/15/2022 9:50 EDT Nutrition Diagnoses Oral or Nutrition Support Intake : Inadequate oral intake Oral or Nutr Support Intake Related To : clinical conditoin Oral or Nutr Support Intake Evidenced by : ~50% meals Oral or Nutrition Support Intake Status : Active Nutrient Intake : Increased nutrient needs Nutrient Intake Related to : wound healing Nutrient Intake As Evidenced by : NPWT to L-trochanter, abrasion to L-knee, laceration to vagina, stg 2 PU to R-buttock, MASD to coccyx Nutrient Intake Status : Active Increased Nutrient Needs Comment : protein CAROLINA BUTLER RD, JOHN - 04/15/2022 15:09 EDT Nutrition Interventions Meals and Snacks : Carbohydrate-modified diet, Fat-modified diet, Sodium modified diet Nutrition Supplement Therapy : Commercial beverage CAROLINA BUTLER RD, JOHN - 04/15/2022 15:09 EDT Monitoring/Evaluation Energy Intake : Total energy intake Food Intake : Amount of food Protein Intake : Total protein Weight Status : Weight Maintanence Gastrointestinal Function : Bowel Function Integumentary : Pressure Ulcer Status CAROLINA BUTLER RD, LD - 04/15/2022 15:09 EDT Nutrition Recommendations Dietitian Recommendations : 1. Continue current diet. RD to order vijay/straw Glucerna TID. Goal: >50% meals + ONS for wound healing 3. Monitor [id number] weekly Goal: prevent unintentional wt changes moderate nutrition risk CAROLINA BUTLER RD, LD - 04/15/2022 15:09 EDT Electronically signed by Bruce Shell Conversion Microwave Remote Sensing Scientist Cerner at 12/21/2022 5:11 PM CDT documented in this encounter Plan of Treatment Not on file documented as of this encounter Visit Diagnoses Not on filedocumented in this encounter
--- OUTSIDE RECORDS SUMMARY | 2025-02-21 13:35 | XMS_ITS | Encounter Summary ---
Author Organization [employer] Address [address] [place] [address] Care Team Providers Care Director Of Diagnostic Imaging Name Role Phone Unavailable Primary Care Provider Unavailabl e Encounter Details Date Type Department Care Team (Late st Contact Info) Description 04/30/2022 Transcribed Document [facility] [place] [address] [place] [address] ProviderFlorentino MD [address] [place] [address] Social History Tobacco Use Types Packs/Day Years Used Date Smoking Tobacco: Never Assessed Comments Unknown Sex and Gender Information Value Date Recorded Sex Assigned at Not on file Legal Sex Female 1:44 PM CDT Gender Identity Not on file Sexual Orientation Not on file documented as of this encounter Miscellaneous Notes * Cerner Conversion Note - Historical ProviderMD - 04/30/2022 5:00 PM CDT Chart Check - Review Order Profile Entered On: 04/30/2022 17:04 EDT Performed On: 04/30/2022 17:00 EDT by Kayla Chi Non Emp RN Chart Check Powerplans Initiated/Discontinued as Appropriate : Yes All Active Orders Reviewed : Yes Kayla Chi Non Emp RN - 04/30/2022 17:04 EDT documented in this encounter Plan of Treatment Not on file documented as of this encounter Visit Diagnoses Not on filedocumented in this encounter
--- OUTSIDE RECORDS SUMMARY | 2025-02-21 13:35 | XMS_ITS | Encounter Summary ---
Author Organization [employer] Address [address] [place] [address] Care Team Providers Care Surgical Specialist Name Role Phone Unavailable Primary Care Provider Unavailabl e Encounter Details Date Type Department Care Team (Late st Contact Info) Description 04/15/2022 Transcribed Document [facility] [place] [address] [place] [address] ProviderFlorentino MD [address] [place] [address] Social History Tobacco Use Types Packs/Day Years Used Date Smoking Tobacco: Never Assessed Comments Unknown Sex and Gender Information Value Date Recorded Sex Assigned at Not on file Legal Sex Female 1:44 PM CDT Gender Identity Not on file Sexual Orientation Not on file documented as of this encounter Miscellaneous Notes * Cerner Conversion Note - Florentino Lynne MD - 04/15/2022 11:10 AM CDT Patient: ALYSSA AZUL Age: 61 years Sex: Female : 1960 Associated Diagnoses: None Author: CHICA RAZA MD-[facility] Subjective Chief complaint. 04/15/22 awake weak no fever Health Status Allergies: Allergic Reactions (Selected) No Known Allergies, Allergies (1) Active Reaction No Known Allergies None Documented Current medications: (Selected) Inpatient Medications Ordered Desenex AF 2% topical powder: 1 Application, Topical, BID Dextrose 50% injection: 12.5 Gram, IV Push, Q15Min, PRN: Other (See Comment) Dextrose 50% injection: 25 Gram, IV Push, Q15Min, PRN: Other (See Comment) Dextrose 50% injection: 25 Gram, IV Push, Q15Min, PRN: Other (See Comment) Dextrose 50% injection: 25 Gram, IV Push, Q15Min, PRN: Other (See Comment) EPINEPHrine: 1 mg, IntraMuscular, On-CALL, PRN: Anaphylaxis NORepinephrine injection 16 mg + NaCl 0.9% for drip 250 mL: TITRATE, IntraVENous Senokot: 8.6 mg, Oral, Daily, PRN: Constipation Tylenol: 650 mg, Oral, Q6H, PRN: Temperature Zofran: 4 mg, IV Push, Q6H, PRN: Nausea Zyvox: 600 mg, 300 mL, 300 mL/Hr, IV Piggyback, [id number] calcium gluconate: 1 Gram, 100 mL, 100 mL/Hr, IV Piggyback, Q1H, PRN: Other (See Comment) diphenhydrAMINE: 50 mg, IV Push, On-CALL, PRN: Anaphylaxis docusate sodium: 100 mg, Oral, BID ferrous sulfate: 325 mg, Oral, BID glucagon: 1 mg, IntraMuscular, Q15Min, PRN: Other (See Comment) glucose 4 g oral tablet, chewable: 16 Gram, 4 Tab, Chew, Q15Min, PRN: Other (See Comment) glucose 40% oral gel: 15 Gram, 37.5 mL, Oral, Q15Min, PRN: Other (See Comment) heparin: 5,000 Units, SubCutaneous, Q8H hydrALAZINE: 20 mg, IV Push, Q6H, PRN: Hypertension insulin glargine: 20 Units, SubCutaneous, BID insulin lispro 76 kg - 100 k kg - 100 kg scale, SubCutaneous, AC and at Bedtime lactobacillus acidophilus: 1 Cap, Oral, BID lansoprazole: 30 mg, Feeding Tube, Daily meropenem + Sodium Chloride 0.9% intravenous solution 50 mL: 500 mg, 16.67 mL/Hr, IV Piggyback, Q8HInt micafungin: 100 mg, 100 mL/Hr, IV Piggyback, [id number] phenylephrine injection 80 mg + NaCl 0.9% for drip 250 mL: TITRATE, IntraVENous vasopressin injection 40 Units [0.03 Units/min] + Dextrose 5% in Water intravenous solution 100 mL...: 4.5 mL/Hr, IntraVENous Documented Medications Documented DuoNeb 0.5 mg-2.5 mg/3 mL inhalation solution: 3 mL, Nebulized Inhalation, RT_Q6H, PRN: Dyspnea, 0 Refill(s) Farxiga 10 mg oral tablet: 1 Tab, Oral, Daily, 0 Refill(s) Lovaza 1000 mg oral capsule: 2 Cap, Oral, BID, 360 Cap, 0 Refill(s) Mucinex 600 mg oral tablet, extended release: 1 Tab, Oral, Q12H, 0 Refill(s) Pepcid 20 mg oral tablet: 1 Tab, Oral, At Bedtime, 0 Refill(s) Senna 8.6 mg oral tablet: 1 Tab, Oral, At Bedtime, 100 Tab, 0 Refill(s) acetaminophen 325 mg oral tablet: 2 Tab, Oral, Q6H, PRN: pain/ fever, 0 Refill(s) alendronate weekly: 70 mg, Oral, Thursday, 0 Refill(s) bisoprolol 5 mg oral tablet: 1 Tab, Oral, Daily, 0 Refill(s) docusate 10 mg/mL oral liquid: 10 mL, Oral, Daily, 0 Refill(s) ferrous sulfate 325 mg (65 mg elemental iron) oral tablet: 1 Tab, Oral, BID, 0 Refill(s) furosemide 40 mg oral tablet: 1 Tab, Oral, Daily, PRN: swelling, 0 Refill(s) metFORMIN 500 mg oral tablet: 2 Tab, Oral, BID, 60 Tab, 0 Refill(s) pravastatin 40 mg oral tablet: 1 Tab, Oral, At Bedtime, 0 Refill(s), Home Medications (14) Active acetaminophen 325 mg oral tablet 650 mg = 2 Tab, PRN, Oral, Q6H alendronate weekly 70 mg, Oral, Thursday bisoprolol 5 mg oral tablet 5 mg = 1 Tab, Oral, Daily docusate 10 mg/mL oral liquid 100 mg = 10 mL, Oral, Daily DuoNeb 0.5 mg-2.5 mg/3 mL inhalation solution 3 mL, PRN, Nebulized Inhalation, RT_Q6H Farxiga 10 mg oral tablet 10 mg = 1 Tab, Oral, Daily ferrous sulfate 325 mg (65 mg elemental iron) oral tablet 325 mg = 1 Tab, Oral, BID furosemide 40 mg oral tablet 40 mg = 1 Tab, PRN, Oral, Daily Lovaza 1000 mg oral capsule 2,000 mg = 2 Cap, Oral, BID metFORMIN 500 mg oral tablet 1,000 mg = 2 Tab, Oral, BID Mucinex 600 mg oral tablet, extended release 600 mg = 1 Tab, Oral, Q12H Pepcid 20 mg oral tablet 20 mg = 1 Tab, Oral, At Bedtime pravastatin 40 mg oral tablet 40 mg = 1 Tab, Oral, At Bedtime Senna 8.6 mg oral tablet 8.6 mg = 1 Tab, Oral, At Bedtime , Medications (28) Active Scheduled: (11) docusate sodium 100 mg cap 100 mg 1 Cap, Oral, BID ferrous sulfate 325 mg EC tab 325 mg 1 Tab, Oral, BID heparin 5,000 units/1 mL inj 5,000 Units 1 mL, SubCutaneous, Q8H insulin glargine 1 unit/0.01 mL inj 20 Units 0.2 mL, SubCutaneous, BID insulin lispro 1 unit/0.01 mL inj 76 kg - 100 kg scale, SubCutaneous, AC and at Bedtime lactobacillus acidophilus cap 1 Cap, Oral, BID lansoprazole 30 mg/10 mL susp 90 mL 30 mg 10 mL, Feeding Tube, Daily linezolid *PREMIX* 600 mg 300 mL, IV Piggyback, [id number] meropenem + NaCl 0.9% 50 mL 500 mg, IV Piggyback, Q8HInt micafungin sodium 100 mg, IV Piggyback, [id number] miconazole nitrate 2% pwd 85 g 1 Application, Topical, BID Continuous: (3) NORepinephrine 16 mg + NaCl 0.9% T ITRATE 250 mL 250 mL, IntraVENous phenylephrine 80 mg + NaCl 0.9% T ITRATE 250 mL 250 mL, IntraVENous vasopressin 40 Units [0.03 Units/min] + Dextrose 5% in Water TITRATE 100 mL 100 mL, IntraVENous, 4.5 mL/Hr PRN: (14) acetaminophen 325 mg tab 650 mg 2 Tab, Oral, Q6H calcium gluconate/NaCl 1 Gram 100 mL, IV Piggyback, Q1H dextrose 50% 25 g/50 mL inj syr 25 Gram 50 mL, IV Push, Q15Min dextrose 50% 25 g/50 mL inj syr 25 Gram 50 mL, IV Push, Q15Min dextrose 50% 25 g/50 mL inj syr 25 Gram 50 mL, IV Push, Q15Min dextrose 50% 25 g/50 mL inj syr 12.5 Gram 25 mL, IV Push, Q15Min diphenhydrAMINE 50 mg/1 mL inj 50 mg 1 mL, IV Push, On-CALL EPINEPHrine 1 mg/1 mL inj 1 mg 1 mL, IntraMuscular, On-CALL glucagon 1 mg/1 mL inj 1 mg 1 mL, IntraMuscular, Q15Min glucose 4 g tab 16 Gram 4 Tab, Chew, Q15Min glucose 40% gel 15 g 15 Gram 37.5 mL, Oral, Q15Min hydrALAZINE 20 mg/1 mL inj 20 mg 1 mL, IV Push, Q6H ondansetron 4 mg/2 mL inj 4 mg 2 mL, IV Push, Q6H senna 8.6 mg tab 8.6 mg 1 Tab, Oral, Daily Problem list: Medical History of obstructive sleep apnea / IMO [id number] / Confirmed Diabetes / SNOMED CT [id number] / Confirmed, Active Problems (6) Chronic kidney disease (CKD), stage III (moderate) Diabetes History of obstructive sleep apnea Hyperlipidemia Hypertension Paraplegia Objective VS/Measurements Vitals Signs (last 24 hrs) Last Charted Minimum Maximum Temp 97.7 (APR 15 09:54) 97.7 (APR 15 09:54) 98.6 (APR 14 16:00) Apical HR 72 (APR 15 06:00) 72 (APR 15 06:00) 72 (APR 15 06:00) Mon HR 90 (APR 15 09:54) 51 (APR 15 08:26) 96 (APR 15 00:55) Resp Rate 16 (APR 15 09:00) 16 (APR 14 19:45) H 50 (APR 14 21:15) SBP H 181 (APR 15 09:54) 130 (APR 14 12:00) H 181 (APR 15 09:54) DBP H 93 (APR 15 09:54) 66 (APR 14 16:00) H 93 (APR 15 09:54) MAP 124 (APR 15 09:54) 90 (APR 14 19:00) 124 (APR 15 09:54) SpO2 98 (APR 15 10:46) L 77 (APR 14 16:00) 100 (APR 14 21:00) General: Alert and oriented, No acute distress. Eye: Pupils are equal, round and reactive to light, Normal conjunctiva. HENT: Normocephalic, Normal hearing. Neck: Supple. Respiratory: Respirations are non-labored, Breath sounds are equal. Cardiovascular: Normal rate. Gastrointestinal: Soft, Non-tender. Integumentary: Warm. Neurologic: Alert, Oriented. Psychiatric: Cooperative, Appropriate mood & affect. Results Review APR 15 06:33 141 108 H 29 / 106 3.9 28 H 1.50 \ APR 15 06:33 \ L 7.6 / 4.8 L 106 / L 23.7 \ APR 15 06:33 141 108 H 29 / 106 3.9 28 H 1.50 \ APR 15 06:33 \ L 7.6 / 4.8 L 106 / L 23.7 \ Impression and Plan #Severe septic shock (POA)?resolved hypothermia, lactic acidosis, leukocytosis, JAVIER, respiratory failure Source gluteal wound, UTI ID following: Zyvox, meropenem, micafungin Wound culture + Citrobacter koseri, MRSA, Corynebacterium species, Klebsiella oxytoca Urine culture + Pseudomonas, E coli Vasopressors weaned off 04/11 Stress steroids discontinued #Acute hypoxic respiratory failure?resolved Intubated on 04/08, extubated 04/10 Pulmonary following-- signed off 04/14 CT chest with trace right effusion Pneumonia PCR negative #Acute (resolved) on chronic renal failure stage III With hyperkalemia and anion gap metabolic Acidosis Likely ATN from shock Has a solitary kidney, baseline creatinine 1.4-1.6 Nephrology following: monitoring daily for HD needs Temporary dialysis catheter placed 04/08 and started on CRRT CRRT stopped 04/11 #Encephalopathy--resolved Due to severe septic shock, renal failure, acidosis, elevated ammonia (resolved) #Pancreatitis?resolved No changes found on CT scan but elevated lipase Triglycerides WNL #Chronic hydronephrosis Evaluated by urology, no intervention necessary at this time #Left gluteal decubitus ulcer Previous debridement and wound VAC placement #Acute on chronic anemia Transfuse as needed Iron supplement #Bradycardia Sedation induced? Monitor on telemetry #Vulvar lesion Edematous right labia minora Evaluated by gynecology: Recommend perineal ice pads #Diabetes S/p insulin drip Increase glargine 20 units BID, SSI #Paraplegia Aggressive PT/OT #Hypertension Hold beta-carmen with bradycardia Hydralazine PRN #Dysphagia--resolved remove Corpak and start diet #Diarrhea Abx, tube feed induced? If worsens clinically consider sending for c diff otherwise may start imodium if no improvement Disposition: At d/c will likely need - abx, oxygen, PT Tentatively at d/c will be going to - SNF vs home with family Expected d/c date - possibly in next 2-3 days if other specialists sign off time spent 38 min documented in this encounter Plan of Treatment Not on file documented as of this encounter Visit Diagnoses Not on filedocumented in this encounter
--- OUTSIDE RECORDS SUMMARY | 2025-02-21 13:35 | XMS_ITS | Encounter Summary ---
Author Organization [facility] [facility] Address [address] [place] [address] Care Team Providers Care Retail Helper Name Role Phone Unavailable Primary Care Provider Unavailabl e Encounter Details Date Type Department Care Team (Late st Contact Info) Description 04/15/2022 Transcribed Document [facility] [place] Medicine [facility] [place] [address] ProviderFlorentino MD [address], [...] Note - Florentino Lynne MD - 04/15/2022 11:56 AM CDT On Going Discharge Planning Entered On: 04/15/2022 11:57 EDT Performed On: 04/15/2022 11:56 EDT by TRISTAN TAYLOR, RN-Store MerchandiserSenior Communications Specialist Progress Note Discharge Arrangements : Patient Post-Acute Information Patient Name: ALYSSA AZUL Gender: Female : [birth year] Age: 61 Years No Post-Acute Placement(s) Listed No Post-Acute Service(s) Listed No Curaspan Referral(s) Listed Discharge Options Discussed with Patient : Home Health, skilled nursing Barriers to Discharge Identified : Clinical Condition of Patient Barriers to Discharge Unresolved : Clinical Condition of Patient Patient Discharge Goal : Home health care Patient Offered Choice/Affiliations Explained : Yes Were Referrals Sent to Post Acute Providers : Yes Is the Patient Meeting Medical Necessity : Yes Did you Attend Multidisciplinary Rounds? : Yes TRISTAN TAYLOR, RN-Store Merchandiser - 04/15/2022 11:56 EDT Narrative Progress Note Narrative Progress Note : RRS HIGH, LOS 7, ELOS 5 Qsvmkc-cil-xyv-rqyeseqybpoy-iucbtwsvyndx-qqzrzelub acidosis HX paraplegia since age 8 L. trochanter-- 11.0cmx6.5cmx2.0cm-current with wound vac CRRT off since 04/11-- possible catheter removal 8.16 Rrrye3pwrdbtylya-hjzssqydk Pt was discharged to [place] in 03.21. family refuses to return to [place] and [facility] [place] declined to accept back. Spoke with pt and she wishes to dc home with her son. She will need , PT for transfers as PLOF was independent, she will need wound vac and son will provide transportation. APS following: Aimee Payne, Historical Progress Note : HD# 3. elos: 5. rar: high acute hypoxic resp failure. severe sepsis: shock. campos/ckd. acute pancreatitis. diabetes. paraplegia. covid 19: negative 04-08. bipap 30%/ra. zyvox/merrem/micafungin iv. wound vac: left trochanter. corpak tube feeds. PT/OT: eob. ST: cleared for diet. no dialysis. APS following: Aimee Payne, . left message with updates. dcp: family decline return to [place]. [facility] sent [facility]. spoke with bessie granda coordintor. they hope she will improve to dc home with them in [place]. FREDO, son, legal next of kin: [phone] Divine, daughter in law: [phone] SHERIF PAYNE, RN-Store Merchandiser - 04/14/22 10:45:05 HD# 3. elos: 5. rar: high acute hypoxic resp failure. severe sepsis: shock. campos/ckd. acute pancreatitis. diabetes. paraplegia. covid 19: negative 8-9. extubated 8-11. 02 4L nc. crrt. levophed gtt. bicarb gtt. zyvox/merrem/micafungin iv. wound vac: left trochanter. APS following: Aimee Payne [phone]. dcp: family decline return to [place]. they hope she will improve to dc home with them in [place]. not ltac candidate at this time due to crrt. FREDO, son, legal next of kin: [phone] Divine, daughter in law: [phone] SHERIF PAYNE RN-Store Merchandiser - 04/11/22 09:13:49 late entry for this am. Aimee Payne, [employer] social science teacher was on site this am. she spoke with clover Bowen rn, interviewed pt's son and spoke with Ms. azul who was awake on ventilator. she left number for claudia Groves sound to call her at Yaneli's convenience. provided medical records as requested. SHERIF PAYNE RN-Store Merchandiser - 04/10/22 15:40:22 HD# 2. elos: 5. rar: high acute hypoxic resp failure. severe sepsis: shock. campos/ckd. acute pancreatitis. diabetes. paraplegia. covid 19: negative 8-9. following commads. mechanical ventilation. crrt. fentanyl gtt. insulin gtt. levophed gtt. evaluation Dr Abraham, hydroblaster. see her notes. no vaginal laceration. return call from Gayathri Pimentel, . she contacted lorrie Cohen for [place], [facility], [facility] & [facility] with family concerns. [phone]. APS accepted case: [id number]. dcp: family decline return to [facility]. they hope she will improve to dc home with them in [place]. spoke with Monique Groves PA, sound attending. clover Bowen RN. SHERIF PAYNE RN-Store Merchandiser - 04/10/22 09:41:02 received email from aps. they have accepted & will assign to high school social science teacher. SHERIF PAYNE RN-Store Merchandiser - 04/09/22 15:19:44 APS reported filed. [id number]. spoke with clover Bowen rn, Amber, unit control worker & Mary, warehouse trainer. SHERIF PAYNE RN-Store Merchandiser - 04/09/22 12:07:07 TRISTAN TAYLOR, RN-Store Merchandiser - 04/15/2022 11:56 EDT Electronically signed by Sum[facility] Conversion Heater Tender Cerner at 12/21/2022 5:03 PM CDT documented in this encounter Plan of Treatment Not on file documented as of this encounter Visit Diagnoses Not on filedocumented in this encounter
--- OUTSIDE RECORDS SUMMARY | 2025-02-21 13:35 | XMS_ITS | Encounter Summary ---
Author Organization [facility] Address [address] [place] [address] Care Team Providers Care Fluid Power Mechanic Name Role Phone Unavailable Primary Care Provider Unavailabl e Encounter Details Date Type Department Care Team (Late st Contact Info) Description 04/15/2022 Transcribed Document [facility] [place] [address] [place] [address] ProviderFlorentino MD [address] [place] [address] Social History Tobacco Use Types Packs/Day Years Used Date Smoking Tobacco: Never Assessed Comments Unknown Sex and Gender Information Value Date Recorded Sex Assigned at Not on file Legal Sex Female 1:44 PM CDT Gender Identity Not on file Sexual Orientation Not on file documented as of this encounter Miscellaneous Notes * Cerner Conversion Note - Florentino Lynne MD - 04/15/2022 12:05 PM CDT On Going Discharge Planning Entered On: 04/15/2022 12:07 EDT Performed On: 04/15/2022 12:05 EDT by TRISTAN TAYLOR RN-Organic Extractions TechnicianPlant Maintenance Worker Progress Note Discharge Arrangements : Patient Post-Acute Information Patient Name: ALYSSA AZUL Gender: Female : [birth year] Age: 61 Years No Post-Acute Placement(s) Listed No Post-Acute Service(s) Listed No Curaspan Referral(s) Listed Discharge Options Discussed with Patient : Home Health, custodial Barriers to Discharge Identified : Clinical Condition of Patient Barriers to Discharge Unresolved : Clinical Condition of Patient Patient Discharge Goal : Home health care Patient Offered Choice/Affiliations Explained : Yes TRISTAN TAYLOR RN-Organic Extractions Technician - 04/15/2022 12:05 EDT Narrative Progress Note Narrative Progress Note : home health referral made to [facility] to assist with HH placement. very few HH agencies participate with pt's insurance so wound vac may need management at wound clinic. pt may have to do outpt PT is she [facility]-lt[facility]. Historical Progress Note : RRS HIGH, LOS 7, ELOS 5 Crocrb-tmr-chr-fhgfemxrnzdl-gkpwaioucibe-qayhoozhg acidosis HX paraplegia since age 8 L. trochanter-- 11.0cmx6.5cmx2.0cm-current with wound vac CRRT off since 04/11-- possible catheter removal 8.16 Dquis7pnafottgfz-dkerhycue Pt was discharged to [place] in 03.21. family refuses to return to [place] and [facility] declined to accept back. Spoke with pt and she wishes to dc home with her son. She will need HH, PT for transfers as PLOF was independent, she will need wound vac and son will provide transportation. APS following: Aimee Payne, TRISTAN TAYLOR, RN-Organic Extractions Technician - 04/15/22 11:57:48 HD# 3. elos: 5. rar: high acute hypoxic resp failure. severe sepsis: shock. campos/ckd. acute pancreatitis. diabetes. paraplegia. covid 19: negative 04-08. bipap 30%/ra. zyvox/merrem/micafungin iv. wound vac: left trochanter. corpak tube feeds. PT/OT: eob. ST: cleared for diet. no dialysis. APS following: Aimee Payne, . left message with updates. dcp: family decline return to [place]. new referral [facility]. [facility]. spoke with adm jesus albertoit coordintor. they hope she will improve to dc home with them in [place]. FREDO, son, legal next of kin: [phone] Divine, daughter in law: [phone] SHERIF PAYNE, RN-Organic Extractions Technician - 04/14/22 10:45:05 HD# 3. elos: 5. rar: high acute hypoxic resp failure. severe sepsis: shock. campos/ckd. acute pancreatitis. diabetes. paraplegia. covid 19: negative 8-9. extubated 8-11. 02 4L nc. crrt. levophed gtt. bicarb gtt. zyvox/merrem/micafungin iv. wound vac: left trochanter. APS following: Aimee Kumar, . dcp: family decline return to [place]. they hope she will improve to dc home with them in [place]. not ltac candidate at this time due to crrt. FREDO, son, legal next of kin: [phone] Divine, daughter in law: [phone] SHERIF PAYNE, RN-Organic Extractions Technician - 04/11/22 09:13:49 late entry for this am. Aimee Payne, [employer] rn social work was on site this am. she spoke with Andrés bedside rn, interviewed pt's son and spoke with Ms. azul who was awake on ventilator. she left number for claudia Groves sound to call her at Yaneli's convenience. provided medical records as requested. SHERIF PAYNE RN-Organic Extractions Technician - 04/10/22 15:40:22 HD# 2. elos: 5. rar: high acute hypoxic resp failure. severe sepsis: shock. campos/ckd. acute pancreatitis. diabetes. paraplegia. covid 19: negative 8-9. following commads. mechanical ventilation. crrt. fentanyl gtt. insulin gtt. levophed gtt. evaluation Dr Abraham, director employment. see her notes. no vaginal laceration. return call from Gayathri Pimentel, . she contacted lorrie Cohen for [place], [facility], [facility] & [facility] with family concerns. [phone]. APS accepted case: [id number]. dcp: family decline return to [facility]. they hope she will improve to dc home with them in [place]. spoke with Monique Groves PA, sound attending. clover Bowen RN. SHERIF PAYNE, RN-Organic Extractions Technician - 04/10/22 09:41:02 received email from aps. they have accepted & will assign to rn social work. SHERIF PAYNE, RN-Organic Extractions Technician - 04/09/22 15:19:44 APS reported filed. [id number]. spoke with Andrés, bedside rn, Amber, community service officer & Mary, night warehouse selector. SHREIF PAYNE, RN-Organic Extractions Technician - 04/09/22 12:07:07 TRISTAN TAYLOR, RN-Organic Extractions Technician - 04/15/2022 12:05 EDT Electronically signed by [facility] Conversion Brush Fabrication Supervisor Cerner at 12/21/2022 5:02 PM CDT documented in this encounter Plan of Treatment Not on file documented as of this encounter Visit Diagnoses Not on filedocumented in this encounter
--- OUTSIDE RECORDS SUMMARY | 2025-02-21 13:35 | XMS_ITS | Encounter Summary ---
Author Organization [employer] Address [address] [place] [address] Care Team Providers Care Towboat Captain Name Role Phone Unavailable Primary Care Provider Unavailabl e Encounter Details Date Type Department Care Team (Late st Contact Info) Description 02/26/2022 Transcribed Document [facility] [place] Family Medicine [address] [place] [address] ProviderFlorentino MD [address] [place] [address] Social History Tobacco Use Types Packs/Day Years Used Date Smoking Tobacco: Never Assessed Comments Unknown Sex and Gender Information Value Date Recorded Sex Assigned at Not on file Legal Sex Female 1:44 PM CDT Gender Identity Not on file Sexual Orientation Not on file documented as of this encounter Miscellaneous Notes * Cerner Conversion Note - Florentino Lynne MD - 02/26/2022 12:05 PM CDT FIXED WING PILOT Note Entered On: 02/27/2022 11:42 EDT Performed On: 02/27/2022 11:04 EDT by NICO WOODSON Speech Language Pathologist Pain Assessment Pain Scaled Used : 0-10 Pain scale Pain Score Pre-Intervention : 0 (Comment: Patient answered no to all pain questions. [NICO WOODSON Speech Language Pathologist - 02/27/2022 11:32 EDT] ) NICO WOODSON Speech Language Pathologist - 02/27/2022 11:32 EDT Image 1 - Images currently included in the form version of this document have not been included in the text rendition version of the form. Dysphagia Exercise Technique Dysphagia Therapy/Treatment Type #1 : Other: Patient accepted PO trials of thins, puree, and solids for reeval. Dysphagia Therapy/Tx # Possible Resp #1 : 8 Dysphagia Therapy/Tx # Correct Resp #1 : 8 Dysphagia Therapy/Tx # % Accuracy #1 : 100 % NICO WOODSON Speech Language Pathologist - 02/27/2022 11:32 EDT PO Trials Dysphagia Exercise Technique PO Trial #1 PO Trial #2 PO Trial #3 Consistency Trialed : Thin Pureed Regular solids Oral Symptoms : None observed None observed None observed Pharyngeal Signs : None observed None observed None observed NICO WOODSON Speech Language Pathologist - 02/27/2022 11:32 EDT NICO WOODSON Speech Language Pathologist - 02/27/2022 11:32 EDT NICO WOODSON Speech Language Pathologist - 02/27/2022 11:32 EDT Swallow Impressions Impressions, BS Swallow : No evidence of dysphagia present Swallowing Outcome Measures : Functional Oral Intake Scale (FOIS) Functional Oral Intake Scale (FOIS) : Level VII NICO WOODSON Speech Language Pathologist - 02/27/2022 11:32 EDT Swallow Recommendations Recommended Diet Type, SwRec : Regular Recommended Liquid Diet, SwRec : Thin Feeding Presentation Style, SwRec : No restrictions Swallow Position, SwRec : Upright 90 degrees Supervision Level w/Meals, SwRec : Independent, complete Recommended Med Present, SwRec : As per nursing NICO WOODSON Speech Language Pathologist - 02/27/2022 11:32 EDT Swallow Plan/Goals Treatment Frequency, FIXED WING PILOT : 1-5 times per wk Treatment Plan Est w/Pt/Caregvr, Swallow : Yes Treatment Duration, FIXED WING PILOT : Two weeks NICO WOODSON Speech Language Pathologist - 02/27/2022 11:32 EDT Swallow LTG Grid FIXED WING PILOT Stope Miner Goal #1 FIXED WING PILOT Skilled Nursing Goal #2 Swallow LTG : Establish safe oral diet without aspiration Safely tolerates recommended diet Status : Goal met Initial Date Met : 02/27/2022 EDT NICO WOODSON Speech Language Pathologist - 02/27/2022 11:32 EDT NICO WOODSON Speech Language Pathologist - 02/27/2022 11:32 EDT Swallow Goals Grid Goal #1 Goal #2 Swallow STG : Other: Reeval Tolerate diet advancement (liquid or solids) Related To : Aspiration prevention Aspiration prevention Date to Meet : 02/27/2022 EDT 02/28/2022 EDT Status : Goal met Initial goal Date Met : 02/27/2022 EDT NICO WOODSON Speech Language Pathologist - 02/27/2022 11:32 EDT NICO WOODSON Speech Language Pathologist - 02/27/2022 11:32 EDT Subjective/Assessment/Plan Oral Care Completed : Yes FIXED WING PILOT Patient Concern : Patient was awake in bed upon arrival. She was agreeable to treatment. Additional Objective Information : [id number] FIXED WING PILOT Therapy/Treatment Asmt Cmnt : Patient was seen for dysphagia reeval. She was alert and oriented x4. Oral care completed prior to PO trials. Patient self fed PO trials of thins, puree, and solids. No overt patterns of oral or pharyngeal dysphagia noted. Vocal quality and volitional cough significantly improved since yesterday. Patient presents with intermittent cough prior to PO trials but did not cough following. At this time, patient appears appropriate to initiate regular/thin diet, meds per RN, and ST to follow up tomorrow to assess patient tolerance of diet upgrade. Discussed with patient and RN. FIXED WING PILOT Plan : ST to follow up for patient tolerance of diet advancement. Treatment Plan Recommend Cmnt, FIXED WING PILOT : Patient recommended to initiate regular/thin diet. ST will follow up for patient tolerance of diet advancement. NICO WOODSON Speech Language Pathologist - 02/27/2022 11:32 EDT Education Barriers To Learning : Acuity of Illness Individuals Taught : Patient Readiness to Learn : Cooperative Readiness to Learn : Explanation NICO WOODSON Speech Language Pathologist - 02/27/2022 11:32 EDT FIXED WING PILOT Education Assessment Grid 1 Diet Recommendation : Verbalizes understanding Oral Care : Verbalizes understanding NICO WOODSON Speech Language Pathologist - 02/27/2022 11:32 EDT FIXED WING PILOT Education Assessment Grid 2 Treatment Plan : Verbalizes understanding NICO WOODSON Speech Language Pathologist - 02/27/2022 11:[address] [facility] FIXED WING PILOT Charges Treatment-Swallowing : 1 FIXED WING PILOT EA ADDL 15 MIN NO CHARGE : 1 NICO WOODSON Speech Language Pathologist - 02/27/2022 11:32 EDT Anticipated Discharge Needs, FIXED WING PILOT Anticipated Discharge to : Unable to assess at this time Recommend Continued Therapy at Discharge : No NICO WOODSON Speech Language Pathologist - 02/27/2022 11:32 EDT documented in this encounter Plan of Treatment Not on file documented as of this encounter Visit Diagnoses Not on filedocumented in this encounter
--- OUTSIDE RECORDS SUMMARY | 2025-02-21 13:35 | XMS_ITS | Encounter Summary ---
Author Organization [employer] Address [address] [place] [address] Care Team Providers Care Tailor Men'S Ready To Wear Name Role Phone Unavailable Primary Care Provider Unavailabl e Encounter Details Date Type Department Care Team (Late st Contact Info) Description 02/25/2022 Transcribed Document [facility] [place] [address] [place] [address] ProviderFlorentino MD [address] [place] [address] Social History Tobacco Use Types Packs/Day Years Used Date Smoking Tobacco: Never Assessed Comments Unknown Sex and Gender Information Value Date Recorded Sex Assigned at Not on file Legal Sex Female 1:44 PM CDT Gender Identity Not on file Sexual Orientation Not on file documented as of this encounter Miscellaneous Notes * Cerner Conversion Note - Historical ProviderMD - 02/25/2022 9:00 AM CDT Spiritual Care Short Form Entered On: 02/25/2022 10:09 EDT Performed On: 02/25/2022 9:00 EDT by JOSEF GHOTRA Chaplain General Information, Spiritual Care Spiritual Care Referred by : Interdisciplinary Team rounds Reason for Visit : Initial Intervention/Comment/Summary Points : Participated in MDRs; patient was seen still on vent, RN reported that she was awake and alert. Patient may be extubated today. No family present. JOSEF GHOTRA Chaplain - 02/25/2022 10:07 EDT documented in this encounter Plan of Treatment Not on file documented as of this encounter Visit Diagnoses Not on filedocumented in this encounter
--- OUTSIDE RECORDS SUMMARY | 2025-02-21 13:35 | XMS_ITS | Encounter Summary ---
Author Organization [employer] Address [address] [place] [address] Care Team Providers Care Biophysics Teacher Name Role Phone Unavailable Primary Care Provider Unavailabl e Encounter Details Date Type Department Care Team (Late st Contact Info) Description 04/14/2022 Transcribed Document [facility] [place] [address] [place] [address] ProviderFlorentino MD [address] [place] [address] Social History Tobacco Use Types Packs/Day Years Used Date Smoking Tobacco: Never Assessed Comments Unknown Sex and Gender Information Value Date Recorded Sex Assigned at Not on file Legal Sex Female 1:44 PM CDT Gender Identity Not on file Sexual Orientation Not on file documented as of this encounter Miscellaneous Notes * Cerner Conversion Note - Historical ProviderMD - 04/14/2022 5:00 AM CDT Height and Weight, Routine Entered On: 04/14/2022 4:37 EDT Performed On: 04/14/2022 5:00 EDT by Hebert Barker RN Height and Weight, Routine Routine Weight Source : Bed scale Routine Weight Entry Format : Metric Routine Weight, Kilograms : 89.9 kg(Converted to: 198 lb 3 oz) Routine Weight Calculation : 89.9 kg Height Source : Estimated Height Entry Format : Vernon Height, Feet : 5 ft Height, Inches : 6 Inch Clinical Height : 167.64 cm Body Surface Area (BSA), Routine : 1.99 m2 Body Mass Index (BMI), Routine : 31.99 kg/m2 Hebert Barker RN - 04/14/2022 4:33 EDT documented in this encounter Plan of Treatment Not on file documented as of this encounter Visit Diagnoses Not on filedocumented in this encounter
--- OUTSIDE RECORDS SUMMARY | 2025-02-21 13:35 | XMS_ITS | Encounter Summary ---
Author Organization [employer] Address [address] [place] [address] Care Team Providers Care Cabin Agent Name Role Phone Unavailable Primary Care Provider Unavailabl e Encounter Details Date Type Department Care Team (Late st Contact Info) Description 02/26/2022 Transcribed Document [facility] [place] [facility] [place] [address] ProviderFlorentino MD [facility] [place] [address] Social History Tobacco Use Types Packs/Day Years Used Date Smoking Tobacco: Never Assessed Comments Unknown Sex and Gender Information Value Date Recorded Sex Assigned at Not on file Legal Sex Female 1:44 PM CDT Gender Identity Not on file Sexual Orientation Not on file documented as of this encounter Miscellaneous Notes * Cerner Conversion Note - Florentino Lynne MD - 02/26/2022 2:30 PM CDT [facility] Inpatient Documentation Entered On: 02/26/2022 15:08 EDT Performed On: 02/26/2022 14:30 EDT by Dory Helms Rn [facility] Admission Date : Admit Date 02/22/2022 00:[address] : Diagnosis (5) Cardiac arrest, cause unspecified Pneumonia, unspecified organism Acute kidney failure, unspecified Severe sepsis with septic shock 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 wound care team at bedside. Pt is awake, resting in bed on HEN[place]ET[place] support surface. Patient agreeable to dressing change. Therapy turned off. Previous dressing removed. 1PC of black foam removed, consistent with previous clinician note. Wound cleansed with saline wound wash and patted dry with 4x4's. Periwound prepped with no sting barrier spray and adhesive drape. 1 PC of black foam placed to entire wound bed. 1 trac pad placed. Covered with vac drape. Therapy restarted at 80mm/HG. Pt tolerated dressing change. Please contact the wound care team regarding any changes in skin integrity. Dory Helms Rn - 02/26/2022 15:05 EDT Skin Breakdown Prevention Interventions Patient Repositioned : Yes Dory Helms Rn - 02/26/2022 15:05 EDT Teaching/Learning Assessment Barriers To Learning : Acuity of Illness Learning Style Preferences Patient : Verbal explanation Dory Helms Rn - 02/26/2022 15:05 EDT Wound & Pressure Ulcer WOCN Wound Pressure Ulcer Documentation : Pressure Ulcer Assessment: Trochanter Left on 02/26/2022 14:30 by Dory Helms Rn Present on Adm to Hosp: Yes Stage: Stage 4 Device Related: Unknown Dressing Status: Clean, Dry, Intact Dressing Activity: Dressing changed Wound Bed Description: Discolored, Epithelialization (pearly pink), Granulation (pale red), Muscle, Slough (soft yellow or hale), Undermining Bed Color(s): Brown, Pale [place], Red, Yellow Wound Edge: Not Attached Surrounding Tissue: Intact Undermining Location/Distance, PU: undermining noted from 9 oclock with a depth of 3cm to 3 0clock with a depth of 2 cm Drainage Amount: Minimal Drainage Description: Serous Drainage Odor: None Cleansing/Irrigation: Irrigated with sterile saline Skin Treatment: Barrier film Dressing Type/Treatment: NPWT NPWT (PU) Activity: Dressing changed NPWT (PU) Device used: renasys Type of Foam or Gauze Removed (PU): Black Foam Number of Black Foam Removed (PU): 1 Number of TRAC Pads Applied (PU): 1 NPWT (PU) Pressure: Continuous NPWT (PU) Pressure Settin NPWT (PU) Canister Changed: No WOCN Ostomy Documentation : Ostomy: Urostomy RLQ on 02/24/2022 14:43 by Dory Helms Rn Diversion Present on Admission: Yes Ostomy Care Performed: By care provider Stoma Shape: Round Stoma Description: Red Peristomal Skin Description: Intact, Red, Other: macerated Mucocutaneous Junction: Intact Ostomy Equipment: One piece system, Ostomy paste, Ostomy powder, Pouch, drainable, Pouch, urostomy, Skin barrier Ostomy Wafer Type: Convex Ostomy System Assessment: Leaking Ostomy Activity: Assessed, Peristomal Crusting, Pouch change, Skin cleansed Ostomy Pouch Change Next Due: 1:[id number]:[id number]:0:0 Ostomy Skin Cleansed With: Water Ostomy Treatment Response: Expected Dory Helms Rn - 02/26/2022 15:05 EDT documented in this encounter Plan of Treatment Not on file documented as of this encounter Visit Diagnoses Not on filedocumented in this encounter
--- OUTSIDE RECORDS SUMMARY | 2025-02-21 13:35 | XMS_ITS | Encounter Summary ---
Author Organization [employer] Address [address] [place] [address] Care Team Providers Care Heel Sewer Name Role Phone Unavailable Primary Care Provider Unavailabl e Encounter Details Date Type Department Care Team (Late st Contact Info) Description 02/25/2022 Transcribed Document [facility] [place] [address] [place] [address] ProviderFlorentino MD [address] [place] [address] Social History Tobacco Use Types Packs/Day Years Used Date Smoking Tobacco: Never Assessed Comments Unknown Sex and Gender Information Value Date Recorded Sex Assigned at Not on file Legal Sex Female 1:44 PM CDT Gender Identity Not on file Sexual Orientation Not on file documented as of this encounter Miscellaneous Notes * Cerner Conversion Note - Florentino Lynne MD - 02/25/2022 10:15 PM CDT Patient: ALYSSA AZUL Age: 61 years Sex: Female : 1960 Associated Diagnoses: None Author: HIGINIO AREVALO MD-INF Antibiotics: Zosyn CC: Sacral wound Subjective: Patient will awaken and more awake today on the vent off pressors afebrile remains on antibiotics mechanical ventilation Objective: Vitals Signs (last 24 hrs) Last Charted Minimum Maximum Temp 99.0 (FEB 25 20:00) 99.0 (FEB 25 12:00) 99.1 (FEB 25 00:00) Apical HR 94 (FEB 25 04:19) 94 (FEB 25 04:19) 94 (FEB 25 04:19) Mon HR 71 (FEB 25 20:10) 71 (FEB 25 20:06) 101 (FEB 25 01:00) Resp Rate H 39 (FEB 25 20:10) L 13 (FEB 25 08:40) H 51 (FEB 25 14:30) SBP 118 (FEB 25 20:00) 101 (FEB 25 09:00) H 196 (FEB 25 19:30) DBP 65 (FEB 25 20:00) L 55 (FEB 25 06:30) 90 (FEB 25 00:15) MAP 85 (FEB 25 20:00) 72 (FEB 25 09:00) 127 (FEB 25 16:30) SpO2 97 (FEB 25 20:10) L 90 (FEB 25 11:00) 98 (FEB 25 00:15) PE: General: Patient will awaken on mechanical ventilation HEENT: sclera white without conjunctival injection. No erythema, exudate or ulceration. No thrush present. Neck: Supple without nuchal rigidity Lungs: Clear to auscultation bilaterally without wheezes, rales, or rhonchi. Normal respiratory effort Cardiovascular: normal S1/S2; RRR, no m/r/g. Abdomen: soft, non-tender, non-distended, positive bowel sounds throughout. Lower extremity: No cyanosis, clubbing or edema Neuro: Sedated on vent with paraplegia : Left hip and sacral wound with wound VAC in place LABS: Labs (Last four charted values) WBC H 10.4 (FEB 25) 8.9 (CATRACHITA 27) 6.5 (CATRACHITA 26) 8.9 (CATRACHITA 25) HB L 8.3 (CATRACHITA 28) L 7.5 (CATRACHITA 27) L 7.9 (CATRACHITA 26) L 6.6 (CATRACHITA 26) HCT L 25.5 (CATRACHITA 28) L 23.1 (CATRACHITA 27) L 24.0 (CATRACHITA 26) L 20.5 (CATRACHITA 26) Plt 246 (CATRACHITA 28) 217 (CATRACHITA 27) 215 (CATRACHITA 26) 218 (CATRACHITA 25) Na 146 (CATRACHITA 28) 143 (CATRACHITA 27) 146 (CATRACHITA 26) H 150 (CATRACHITA 26) K L 3.4 (CATRACHITA 28) 3.7 (CATRACHITA 27) L 3.3 (CATRACHITA 26) C 2.6 (CATRACHITA 26) Cl 110 (CATRACHITA 28) 110 (CATRACHITA 27) H 114 (CATRACHITA 26) H 118 (CATRACHITA 26) CO2 L 20 (CATRACHITA 28) L 20 (CATRACHITA 27) 21 (CATRACHITA 26) L 20 (CATRACHITA 26) BUN H 48 (CATRACHITA 28) H 49 (FEB 24) H 51 (FEB 23) H 53 (FEB 23) Cr H 3.28 (FEB 25) H 3.17 (FEB 24) H 3.04 (FEB 23) H 3.13 (FEB 23) Glu R H 178 (FEB 25) H 217 (FEB 24) 74 (FEB 23) H 121 (FEB 23) Ca L 8.1 (FEB 25) L 7.3 (FEB 24) L 6.8 (FEB 23) L 7.0 (FEB 23) Lactic 0.9 (FEB 22) 0.7 (FEB 22) AST 13 (FEB 24) 14 (FEB 23) 17 (FEB 21) ALT 16 (FEB 24) 16 (FEB 23) 21 (FEB 21) ALK P 49 (FEB 24) 53 (FEB 23) 76 (FEB 21) T Bili 0.4 (FEB 24) 0.4 (FEB 23) 0.3 (JAN 24) PTN L 5.4 (FEB 24) L 5.9 (FEB 23) L 6.3 (FEB 21) ALB L 1.7 (FEB 24) L 1.9 (FEB 23) L 1.9 (FEB 21) MICRO: Pending Outside BAL with gram-negative diplococci IMAGING: Radiology Results (Last 48 hours) [id number] -- 02/22/2022 00:01 CR Chest 1 Vw Portable (02/24/2022 10:03) Result: PORTABLE CHEST 02/24/2022 9:38 AM HISTORY: Respiratory distress.COMPARISON: Previous day .FINDINGS: The heart is stable in size. The lung gordon demonstrate nosignificant change in the perihilar opacities and moderate bilateralpleural effusions. There is no pneumothorax. The support devices are ingood position.IMPRESSION: There has been no significant interval change .Continued follow-up recommended.Images reviewed, interpreted, and dictated by Dr. [address].Transcribed by Caroline Scales (R).I have personally viewed, interpreted and dictated the examination. Chayo read and agree with the above final transcribed report. IMPRESSION: - Septic shock: Improved, now off vasopressors. Source presumed to be left gluteal wound but could also have been be pneumonia - Large left gluteal soft tissue infection, ulceration, necrosis, to level of soft tissue: Status post I&D x3 at [facility]. Cultures pending from there also [facility]. Dr. Cortez evaluated at [place] and did not think any additional intervention is required. Black tissue throughout wound bed thought to be related to electrocautery rather than active necrosis. Wound care team has been consulted. -Acute hypoxic respiratory failure: Pneumonia & edema -Aspiration pneumonia: clear evidence of aspiration 02/22 per RN. suctioning food from ET tube today - Pulmonary edema - Cardiac arrest at outside hospital prior to transfer - Metabolic acidosis: improved - Acute kidney failure on reported CKD, unknown stage - Acute encephalopathy: now sedated -Neutrophilic leukocytosis: resolved - Anemia - Chronic paraplegia - Obesity - DM2 RECOMMENDATIONS/PLANS: - Outside records reviewed and summarized as above. Follow-up pending blood, wound and BAL cultures from [facility] - Follow-up all pending cultures from [facility] [place], so far negative - Follow CBC, CMP, CRP, -Now off vancomycin monitor creatinine - Continue Zosyn, renally dosed further broad-spectrum coverage for soft tissue infection and now aspiration pneumonia, patient stable on antibiotics wound VAC in place remains on vent I spent greater than 35 minutes her case today with more than 50% time counseling/coordination care called outside hospital for updates on culture results and discussed with hospitalist today documented in this encounter Plan of Treatment Not on file documented as of this encounter Visit Diagnoses Not on filedocumented in this encounter
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
--- OUTSIDE RECORDS SUMMARY | 2025-02-21 13:35 | XMS_ITS | Clinical Summary ---
Author Organization [facility] Address [address] [place] [address] Care Team Providers Care Hydropulper Operator Name Role Phone Romeo Balderrama MD Primary Care Provider [phone] Allergies No known active allergies Medications alendronate (Fosamax) 70 MG tablet Take 70 mg by mouth 1 (one) time per week. 1 Active bisoprolol (Zebeta) 5 MG tablet Take 5 mg by mouth 1 (one) time each day. 1 Active FeroSul 325 (65 Fe) MG tablet Take 1 tablet by mouth 2 (two) times a day. 1 Active furosemide (Lasix) 40 MG tablet Take 40 mg by mouth 1 (one) time each day. 1 Active glimepiride (Amaryl) 2 MG tablet Take 2 mg by mouth 1 (one) time each day. 1 Active lisinopril 40 MG tablet Take 40 mg by mouth 1 (one) time each day. 1 Active metFORMIN (Glucophage) 500 MG tablet TAKE TWO TABLETS BY MOUTH TWICE DAILY --TAKE WITH FOOD-- 1 Active mupirocin (Bactroban) 2 % ointment APPLY TOPICALLY TO THE AFFECTED AREA(S) THREE TIMES DAILY -- FOR EXTERNAL USE ONLY-- 1 Active omega-3 acid ethyl esters (Lovaza) 1 g capsule Take 1 g by mouth 4 (four) times a day. 1 Active potassium chloride ER (Micro-K) 10 MEQ ER capsule Take 10 mEq by mouth 1 (one) time each day. 1 Active pravastatin (Pravachol) 40 MG tablet Take 40 mg by mouth 1 (one) time each day. 1 Active ALPRAZolam (Xanax) 0.25 MG tablet Take 0.25 mg by mouth if needed. 2 Active Ascorbic Acid (vitamin C) 500 MG tablet Take 500 mg by mouth 1 (one) time each day. 2 Active glucose (Trueplus Glucose) 4 g chewable tablet Chew 4 g 1 (one) time each day. 2 Active Insulin Lispro (HumaLOG) 100 UNIT/ML injection vial 2 Active MONOJECT INS SYR .5CC/29G 29G X 1/2 0.5 ML misc 2 Active nystatin (Mycostatin) 031171 UNIT/GM powder 2 Active omega-3 1000 MG capsule 2 Active PARoxetine (Paxil) 10 MG tablet Take 10 mg by mouth 1 (one) time each day. 2 Active Active Problems Problem Noted Date Diagnosed Date Vitamin D deficiency 09/17/2020 Anemia due to chronic illness 06/02/2019 Proteinuria 11/25/2017 Hydronephrosis 04/02/2017 Acquired solitary kidney 03/16/2017 Hypertension 02/23/2017 Diabetes mellitus, type 2 02/23/2017 CKD (chronic kidney disease) stage 3, GFR 30-59 ml/min 01/15/2017 Immunizations Immunization Administration Dates Next Due Influenza, injectable, MDCK, preservative free, quadrivalent 06/16/2017 Influenza, seasonal, injectable 06/19/2015,09/20 Moderna COVID-19 Vaccine (Senior Qualitative Researcher) 12+ years ,11/28/2020 Family History Medical History Relation Name Comments Cardiac disorder Father Hypertension Mother Stroke Mother Relation Name Status Comments Father Mother Social History Tobacco Use Types Packs/Day Years Used Date Smoking Tobacco: Never Smokeless Tobacco: Never Tobacco Cessation:Counseling Given: Not Answered PHQ-2 Answer Date Recorded Patient Health Questionnaire-2 Score 0 06/23/2022 Comments No Sex and Gender Information Value Date Recorded Sex Assigned at Not on file Legal Sex Female 7:44 PM EDT Gender Identity Not on file Sexual Orientation Not on file Last Filed Vital Signs Vital Sign Reading Time Taken Comments Blood Pressure 124/80 06/23/2022 1:43 PM EDT Pulse 98 06/23/2022 1:43 PM EDT Temperature 36.9 C (98.4 F) 06/23/2022 1:43 PM EDT Respiratory Rate 18 02/21/2022 5:52 PM EDT Oxygen Saturation 99% 02/21/2022 5:52 PM EDT VENT Inhaled Oxygen Concentration - - Weight 82.6 kg (182 lb) 06/23/2022 1:43 PM EDT Height 167.6 cm (5' 6 ) 09/18/2022 12:28 PM EST Body Mass Index 28.51 06/23/2022 1:43 PM EDT Plan of Treatment Health Maintenance Due Date Last Done Comments [facility]-Bone Density Scan 1960 [facility]-HIV Screening 1960 [facility]-Hepatitis C Screening 1960 [facility]-Infant/Child/Adol SDOH Screenings 1960 Diabetes: Dental Exam 1970 [facility]- SDOH Screenings 1978 [facility]-Adult SDOH Screenings 1978 [facility]-DTaP,Tdap,and Td Vaccines (1 - Tdap) 1979 [facility]-Pneumococcal Vaccine: 50+ Years (1 of 2 - PCV) 1979 CT Colonography 2005 Colonoscopy 2005 FIT-DNA 2005 FIT 2005 FOBT 2005 Sigmoidoscopy 2005 [facility]-Colorectal Cancer Screening 2005 [facility]-Zoster Vaccines (1 of 2) 2010 [facility]-RSV Vaccine: 60+ Years or (1 - Risk 60-74 years 1-dose series) 2020 [facility]-Diabetes: Hemoglobin A1C 12/21/2022 06/23/2022 [facility]-Depression Screening 06/23/2023 06/23/2022 [id number] Vaccine ( season) 2024 01/09/2022, 07/17/2021, 12/26/2020, Additional history exists [facility]-Breast Cancer Screening 09/18/2024 09/18/2022 [facility]-Influenza Vaccine (Season Ended) 2025 06/16/2017, 06/19/2015, 09/20/2014 [facility]-Obesity Intervention Completed 06/23/2022 HPV Vaccines Aged Out No longer eligi ble based on patient's age to complete this topic [facility]-HIB Vaccines Aged Out No longer e ligible based on patient's age to complete this topic [facility]-Hepatitis A Vaccines Aged Out No longer eligible based on patient's age to complete this topic [facility]-IPV Vaccines Aged Out No longer e ligible based on patient's age to complete this topic [facility]-Rotavirus Vaccines Aged Out No lo nger eligible based on patient's age to complete this topic Procedures Procedure Name Priority Date/Time Associated Diagnosis Comments MAMMOGRAPHY BREAST SCREENING TOMOSYNTHESIS BILATERAL Routine 09/18/2022 12:59 PM EST Healthcare maintenance POCT GLYCOSYLATED HEMOGLOBIN (HGB A1C) Routine 06/23/2022 3:34 PM EDT Healthcare maintenance from Last 3 Months or Most Recently Relevant to Health Maintenance Results * Mammography Breast Screening Tomosynthesis Bilateral (09/18/2022 12:59 PM EST) Anatomical Region Laterality Modality Breast Bilateral Mammography Impressions 10/16/2022 11:29 AM EST No mammographic evidence of malignancy. BI-RADS CATEGORY: Overall: 1 - Negative RECOMMENDATION: - Routine Screening Mammogram in 1 Year. Patient Lifetime Risk Score of Breast Malignancy: 7.6 % This risk assessment is calculated using the Carmen Risk Assessment model which may underestimate the lifetime risk of breast malignancy. COMMUNICATION: Computer-aided detection (CAD) and tomosynthesis were utilized by the radiologist in the interpretation of this examination. The results and recommendations will be sent to the patient in a printed lay language version of the imaging report. Narrative 10/16/2022 11:29 AM EST EXAM: Mammography Breast Screening with Tomosynthesis REASON FOR EXAM: Screening Mammogram HISTORY: Patient is 62 y.o. Surgical and procedural history include hysterectomy (Hysterectomy from [employer]). COMPARISON STUDIES: Compared to: 03/01/2013 Mammography Outside Images Upload at [facility] 10/19/2013 Mammography Outside Images Upload at [facility] 06/23/2017 Mammography Outside Images Upload at [facility] 07/13/2018 Mammography Outside Images Upload at [facility] BREAST COMPOSITION: The breasts are heterogeneously dense, which may obscure small masses. FINDINGS: There are no suspicious masses, calcifications, or areas of architectural distortion. us Minus Carlyle Balderrama MD IMG BI PROCEDURES Final Result * POCT glycosylated hemoglobin (Hb A1C) docked device (06/23/2022 3:34 PM EDT) POCT Hemoglobin A1C 5.9 4.4-6.6 % % [facility] Kit Lot Number [id number] [facility] Kit Expiration Date 09/06/2022 [facility] Blood Venous blood specimen / Unknown 06/23/2022 3:34 PM EDT us Minus Carlyle Balderrama MD POINT OF CARE TEST ENTER/EDIT ORDERABLES Final Result Performing Organization Address City/State/[facility] Co de Phone Number [facility] [address] [place] [phone] from Last 3 Months or Most Recently Relevant to Health Maintenance Insurance MEDICAID-[place] Care Teams Hydropulper Operator Relationship Specialty Start Date End Date Romeo Balderrama MD [address] [facility] [address] [place] [address] PCP - General Internal Medicine 06/23/22
--- OUTSIDE RECORDS SUMMARY | 2025-02-21 13:35 | XMS_ITS | Encounter Summary ---
Author Organization [employer] Address [address] [place] [id number] Care Team Providers Care Medicaid Service Coordinator Name Role Phone Unavailable Primary Care Provider Unavailabl e Encounter Details Date Type Department Care Team (Late st Contact Info) Description 02/25/2022 Transcribed Document [facility] [address] [place] [address] ProviderFlorentino MD [address] [place] [address] Social History Tobacco Use Types Packs/Day Years Used Date Smoking Tobacco: Never Assessed Comments Unknown Sex and Gender Information Value Date Recorded Sex Assigned at Not on file Legal Sex Female 1:44 PM CDT Gender Identity Not on file Sexual Orientation Not on file documented as of this encounter Miscellaneous Notes * Cerner Conversion Note - Historical ProviderMD - 02/25/2022 10:04 AM CDT Attempt to Treat, PT Entered On: 02/25/2022 10:04 EDT Performed On: 02/25/2022 10:04 EDT by PRAKASH RÍOS PT Attempt to Treat Unable to Treat Due To : Patient on hold Inability to Treat Comment : Pt still intubated and sedated Notification : RN and PT discussed PRAKASH RÍOS PT - 02/25/2022 10:04 EDT documented in this encounter Plan of Treatment Not on file documented as of this encounter Visit Diagnoses Not on filedocumented in this encounter
--- OUTSIDE RECORDS SUMMARY | 2025-02-21 13:35 | XMS_ITS | Encounter Summary ---
Author Organization [employer] Address [address] [place] [id number] Care Team Providers Care Data Support Specialist Name Role Phone Unavailable Primary Care Provider Unavailabl e Encounter Details Date Type Department Care Team (Late st Contact Info) Description 04/15/2022 Transcribed Document [facility] [place] Family Medicine [address] [place] [address] ProviderFlorentino MD [address] [place] [address] Social History Tobacco Use Types Packs/Day Years Used Date Smoking Tobacco: Never Assessed Comments Unknown Sex and Gender Information Value Date Recorded Sex Assigned at Not on file Legal Sex Female 1:44 PM CDT Gender Identity Not on file Sexual Orientation Not on file documented as of this encounter Miscellaneous Notes * Cerner Conversion Note - Florentino Lynne MD - 04/15/2022 4:00 PM CDT UM Authorization Entered On: 04/15/2022 16:02 EDT Performed On: 04/15/2022 16:00 EDT by COLT MORRELL RN Primary Insurance Authorization Authorization and Policy Numbers : Insurance 1 Health Plan: [facility] Policy Number: [id number] Authorization Number: Insurance Primary Name : [facility] - [id number] Authorization Status-Primary : Admit approved Reference Number-Primary : [id number] Authorized Service Begin Date-Primary : 04/08/2022 EDT Authorization Comments-Primary : CLINICAL UPDATE FAXED VIA [employer] 04/11-04/15 Historical Authorization Comments-Primary : Comment 1: Per call to [facility] p2p soto Moran stated p2p took place yestereday 04/14 and denial was OT/approved. Luisa did not have any idea regarding when c/s would be due. left for bottling line operator Sharon. (SARAH MORALES RN 04/15/2022 12:15) Comment 2: Per Dr Perez she is agreeable to attempt p2p on Saturday 04/14. Called Logan back and he scheduled for thursday @ 2pm with Dr William calling Dr Cabello. (SARAH MORALES RN 04/11/2022 11:09) Comment 3: Per Katie she did not receive a call to complete this p2p. Called back in & per Orville he can reschedule with a physician. Informed him that I would need to reach out to a diff physician as the one from yesterday is off service now. He stated I can call back in and reschedule. (SARAH MORALES RN 04/11/2022 10:30) Comment 4: Ana Lilia agreed to attempt p2p. Scheduled for 04/[address] William calling Katie (SARAH MORALES RN 04/09/2022 15:26) Comment 5: Message sent to Katie for p2p. She has agreed to attempt. (SARAH MORALES RN 04/09/2022 13:02) Comment 6: PER [employer] IP AUTH PENDED. CLINICAL FAXED [facility]IA [employer] (Digna Kidd Rn-Utilization Review 04/09/2022 11:31) Comment 7: Denied per fax 04/08/22 @ 0300 no resoning noted. Placed in Denials 2021 folder. (Mallory Sanchez, Tile Fitter 04/09/2022 09:43) COLT MORRELL RN - 04/15/2022 16:00 EDT Electronically signed by Bruce Shell Conversion Head Of Digital Advertising & Integration Cerner at 12/21/2022 5:09 PM CDT documented in this encounter Plan of Treatment Not on file documented as of this encounter Visit Diagnoses Not on filedocumented in this encounter
--- OUTSIDE RECORDS SUMMARY | 2025-02-21 13:35 | XMS_ITS | Encounter Summary ---
Author Organization [employer] Address [address] [place] [id number] Care Team Providers Care Centralized Traffic Control Operator Name Role Phone Unavailable Primary Care Provider Unavailabl e Encounter Details Date Type Department Care Team (Late st Contact Info) Description 04/30/2022 Transcribed Document [facility] [place] Medicine [address] [place] [address] ProviderFlorentino MD [address] [place] [address] Social History Tobacco Use Types Packs/Day Years Used Date Smoking Tobacco: Never Assessed Comments Unknown Sex and Gender Information Value Date Recorded Sex Assigned at Not on file Legal Sex Female 1:44 PM CDT Gender Identity Not on file Sexual Orientation Not on file documented as of this encounter Miscellaneous Notes * Cerner Conversion Note - Florentino ProviderMD - 04/30/2022 5:00 AM CDT Chart Check - Review Order Profile Entered On: 04/30/2022 4:32 EDT Performed On: 04/30/2022 5:00 EDT by Marvin Burden, RN Chart Check All Active Orders Reviewed : Yes Marvin Burden RN - 04/30/2022 4:32 EDT Electronically signed by Bruce Shell Conversion Lime Kiln And Recausticizing Operator Cerner at 12/21/2022 5:09 PM CDT documented in this encounter Plan of Treatment Not on file documented as of this encounter Visit Diagnoses Not on filedocumented in this encounter
--- OUTSIDE RECORDS SUMMARY | 2025-02-21 13:35 | XMS_ITS | Encounter Summary ---
Author Organization [employer] Address [address] [place] [address] Care Team Providers Care Foreign Language Instructor Name Role Phone Unavailable Primary Care Provider Unavailabl e Encounter Details Date Type Department Care Team (Late st Contact Info) Description 02/26/2022 Transcribed Document [facility] [place] Family Medicine [address] [place] [address] ProviderFlorentino MD [address] [place] [address] Social History Tobacco Use Types Packs/Day Years Used Date Smoking Tobacco: Never Assessed Comments Unknown Sex and Gender Information Value Date Recorded Sex Assigned at Not on file Legal Sex Female 1:44 PM CDT Gender Identity Not on file Sexual Orientation Not on file documented as of this encounter Miscellaneous Notes * Cerner Conversion Note - Florentino ProviderMD - 02/26/2022 5:00 AM CDT Chart Check - Review Order Profile Entered On: 02/26/2022 3:51 EDT Performed On: 02/26/2022 5:00 EDT by Bridgette Ribera RN-PATIENT CARE BEDSIDE NON-EXEMP Chart Check Powerplans Initiated/Discontinued as Appropriate : Yes All Active Orders Reviewed : Yes Bridgette Ribera RN-PATIENT CARE BEDSIDE NON-EXEMP - 02/26/2022 3:51 EDT documented in this encounter Plan of Treatment Not on file documented as of this encounter Visit Diagnoses Not on filedocumented in this encounter
--- OUTSIDE RECORDS SUMMARY | 2025-02-21 13:35 | XMS_ITS | Encounter Summary ---
Author Organization [employer] Address [address] [place] [address] Care Team Providers Care Double Surface Operator Name Role Phone Unavailable Primary Care Provider Unavailabl e Encounter Details Date Type Department Care Team (Late st Contact Info) Description 04/15/2022 Transcribed Document [facility] [place] Family Medicine [address] [place] [address] ProviderFlorentino MD [address] [place] [address] Social History Tobacco Use Types Packs/Day Years Used Date Smoking Tobacco: Never Assessed Comments Unknown Sex and Gender Information Value Date Recorded Sex Assigned at Not on file Legal Sex Female 1:44 PM CDT Gender Identity Not on file Sexual Orientation Not on file documented as of this encounter Miscellaneous Notes * Cerner Conversion Note - Florentino Lynne MD - 04/15/2022 4:45 PM CDT Patient: ALYSSA AZUL Age: 61 years Sex: Female : 1960 Associated Diagnoses: None Author: VINNIE SWEENEY MD Subjective No complains.. working with PT. UOP good and renal function stable. will remove HD catheter. CRRT off since 04/11. Health Status Allergies: Allergic Reactions (Selected) No [...] mg, 300 mL, 300 mL/Hr, IV Piggyback, [id number] calcium gluconate: 1 Gram, 100 mL, 100 [...] micafungin: 100 mg, 100 mL/Hr, IV Piggyback, [id number] phenylephrine injection 80 mg + NaCl 0.9% [...] *PREMIX* 600 mg 300 mL, IV Piggyback, [id number] meropenem + NaCl 0.9% 50 mL 500 mg, IV Piggyback, [id number] micafungin sodium 100 mg, IV Piggyback, [id number] miconazole nitrate 2% pwd 85 g 1 [...] History of obstructive sleep apnea / IMO [id number] / Confirmed Diabetes / SNOMED CT [id number] / Confirmed, Active Problems (6) Chronic kidney disease (CKD), stage III (moderate) Diabetes History of obstructive sleep apnea Hyperlipidemia Hypertension Paraplegia Objective VS/Measurements Vital Signs/Vital Measures 04/15/2022 15:55 EDT Oxygen Saturation 97 % Oxygen Therapy Mode Room air 04/15/2022 10:46 EDT Oxygen Saturation 98 % Oxygen Therapy Mode Room air 04/15/2022 9:54 EDT Systolic Blood Pressure 181 mmHg HI Diastolic Blood Pressure 93 mmHg HI Mean Arterial Pressure (MAP)-BMDI 124 Temperature Source Oral Temperature Mode Fahrenheit Temperature, Fahrenheit 97.7 Deg F Clinical Temperature, C 36.5 Deg C Heart Rate Monitored 90 bpm Oxygen Saturation 99 % 04/15/2022 9:00 EDT Respiratory Rate 16 Breaths/Min 04/15/2022 8:26 EDT Systolic Blood Pressure 133 mmHg Diastolic Blood Pressure 80 mmHg Heart Rate Monitored 51 bpm LOW 04/15/2022 8:08 EDT Oxygen Saturation 98 % Oxygen Therapy Mode Room air 04/15/2022 6:00 EDT Blood Pressure Location Arm, left upper Blood Pressure Source Non-Invasive BP Device Blood Pressure Position Supine Systolic Blood Pressure 135 mmHg Diastolic Blood Pressure 88 mmHg Temperature Source Oral Temperature Mode Fahrenheit Temperature, Fahrenheit 97.9 Deg F Clinical Temperature, C 36.6 Deg C Heart Rate, Apical 72 bpm Heart Rate Monitored 72 bpm Respiratory Rate 16 Breaths/Min Oxygen Saturation 100 % Oxygen Therapy Mode Room air 04/15/2022 1:00 EDT Blood Pressure Location Arm, left upper Blood Pressure Source Non-Invasive BP Device Blood Pressure Position Supine Systolic Blood Pressure 158 mmHg HI Diastolic Blood Pressure 77 mmHg Mean Arterial Pressure (MAP)-BMDI 114 Temperature Source Oral Temperature Mode Fahrenheit Temperature, Fahrenheit 98.5 Deg F Clinical Temperature, C 36.9 Deg C Heart Rate Monitored 79 bpm Respiratory Rate 18 Breaths/Min Oxygen Saturation 97 % Oxygen Therapy Mode Room air 04/15/2022 0:55 EDT Heart Rate Monitored 96 bpm Respiratory Rate 16 Breaths/Min Oxygen Saturation 100 % Oxygen Therapy Mode Room air 04/14/2022 22:45 EDT Heart Rate Monitored 69 bpm Respiratory Rate 17 Breaths/Min Oxygen Saturation 100 % 04/14/2022 22:30 EDT Systolic Blood Pressure 151 mmHg HI Diastolic Blood Pressure 74 mmHg Mean Arterial Pressure (MAP)-BMDI 106 Heart Rate Monitored 84 bpm Respiratory Rate 39 Breaths/Min HI Oxygen Saturation 100 % 04/14/2022 22:15 EDT Systolic Blood Pressure 151 mmHg HI Diastolic Blood Pressure 74 mmHg Mean Arterial Pressure (MAP)-BMDI 106 Heart Rate Monitored 71 bpm Respiratory Rate 17 Breaths/Min Oxygen Saturation 100 % 04/14/2022 22:00 EDT Systolic Blood Pressure 151 mmHg HI Diastolic Blood Pressure 74 mmHg Mean Arterial Pressure (MAP)-BMDI 106 Heart Rate Monitored 79 bpm Respiratory Rate 24 Breaths/Min HI Oxygen Saturation 99 % 04/14/2022 21:45 EDT Heart Rate Monitored 90 bpm Respiratory Rate 40 Breaths/Min HI Oxygen Saturation 93 % LOW 04/14/2022 21:30 EDT Systolic Blood Pressure 167 mmHg HI Diastolic Blood Pressure 81 mmHg Mean Arterial Pressure (MAP)-BMDI 113 Heart Rate Monitored 82 bpm Respiratory Rate 24 Breaths/Min HI Oxygen Saturation 98 % 04/14/2022 21:15 EDT Systolic Blood Pressure 167 mmHg HI Diastolic Blood Pressure 81 mmHg Mean Arterial Pressure (MAP)-BMDI 113 Heart Rate Monitored 93 bpm Respiratory Rate 50 Breaths/Min HI Oxygen Saturation 97 % 04/14/2022 21:00 EDT Systolic Blood Pressure 167 mmHg HI Diastolic Blood Pressure 81 mmHg Mean Arterial Pressure (MAP)-BMDI 113 Heart Rate Monitored 89 bpm Respiratory Rate 25 Breaths/Min HI Oxygen Saturation 100 % 04/14/2022 20:45 EDT Heart Rate Monitored 85 bpm Respiratory Rate 27 Breaths/Min HI Oxygen Saturation 98 % 04/14/2022 20:30 EDT Systolic Blood Pressure 153 mmHg HI Diastolic Blood Pressure 69 mmHg Mean Arterial Pressure (MAP)-BMDI 99 Heart Rate Monitored 81 bpm Respiratory Rate 27 Breaths/Min HI Oxygen Saturation 99 % 04/14/2022 20:15 EDT Systolic Blood Pressure 153 mmHg HI Diastolic Blood Pressure 69 mmHg Mean Arterial Pressure (MAP)-BMDI 99 Heart Rate Monitored 74 bpm Respiratory Rate 23 Breaths/Min HI Oxygen Saturation 99 % 04/14/2022 20:00 EDT Systolic Blood Pressure 153 mmHg HI Diastolic Blood Pressure 69 mmHg Mean Arterial Pressure (MAP)-BMDI 99 Temperature Source Oral Temperature Mode Fahrenheit Temperature, Fahrenheit 98.2 Deg F Clinical Temperature, C 36.8 Deg C Heart Rate Monitored 84 bpm Respiratory Rate 27 Breaths/Min HI Oxygen Saturation 96 % 04/14/2022 19:45 EDT Heart Rate Monitored 80 bpm Respiratory Rate 16 Breaths/Min Oxygen Saturation 97 % Oxygen Therapy Mode Room air 04/14/2022 19:30 EDT Systolic Blood Pressure 133 mmHg Diastolic Blood Pressure 66 mmHg Mean Arterial Pressure (MAP)-BMDI 90 Heart Rate Monitored 75 bpm Respiratory Rate 21 Breaths/Min HI Oxygen Saturation 98 % 04/14/2022 19:15 EDT Systolic Blood Pressure 133 mmHg Diastolic Blood Pressure 66 mmHg Mean Arterial Pressure (MAP)-BMDI 90 Heart Rate Monitored 78 bpm Respiratory Rate 22 Breaths/Min HI Oxygen Saturation 98 % 04/14/2022 19:00 EDT Systolic Blood Pressure 133 mmHg Diastolic Blood Pressure 66 mmHg Mean Arterial Pressure (MAP)-BMDI 90 Heart Rate Monitored 78 bpm Respiratory Rate 37 Breaths/Min HI Oxygen Saturation 93 % LOW 04/14/2022 18:00 EDT Heart Rate Monitored 77 bpm Respiratory Rate 27 Breaths/Min HI Oxygen Saturation 94 % 04/14/2022 17:00 EDT Systolic Blood Pressure 154 mmHg HI Diastolic Blood Pressure 72 mmHg Mean Arterial Pressure (MAP)-BMDI 104 Heart Rate Monitored 82 bpm Respiratory Rate 21 Breaths/Min HI Oxygen Saturation 88 % LOW 04/14/2022 16:00 EDT Systolic Blood Pressure 145 mmHg HI Diastolic Blood Pressure 66 mmHg Mean Arterial Pressure (MAP)-BMDI 95 Temperature Source Oral (Modified) Temperature Mode Fahrenheit Temperature, Fahrenheit 98.6 Deg F (Modified) Clinical Temperature, C 37 Deg C (Modified) Heart Rate Monitored 87 bpm Respiratory Rate 20 Breaths/Min Oxygen Saturation 77 % LOW 04/14/2022 15:20 EDT Heart Rate Monitored 78 bpm Respiratory Rate 21 Breaths/Min HI Oxygen Saturation 97 % 04/14/2022 15:00 EDT Systolic Blood Pressure 160 mmHg HI Diastolic Blood Pressure 88 mmHg Mean Arterial Pressure (MAP)-BMDI 117 04/14/2022 14:00 EDT Systolic Blood Pressure 166 mmHg HI Diastolic Blood Pressure 79 mmHg Mean Arterial Pressure (MAP)-BMDI 113 Heart Rate Monitored 77 bpm Respiratory Rate 22 Breaths/Min HI Oxygen Saturation 97 % 04/14/2022 13:00 EDT Systolic Blood Pressure 166 mmHg HI Diastolic Blood Pressure 77 mmHg Mean Arterial Pressure (MAP)-BMDI 111 Heart Rate Monitored 73 bpm Respiratory Rate 31 Breaths/Min HI Oxygen Saturation 98 % 04/14/2022 12:00 EDT Systolic Blood Pressure 130 mmHg Diastolic Blood Pressure 71 mmHg Mean Arterial Pressure (MAP)-BMDI 92 Heart Rate Monitored 74 bpm Respiratory Rate 24 Breaths/Min HI Oxygen Saturation 98 % 04/14/2022 11:00 EDT Systolic Blood Pressure 113 mmHg Diastolic Blood Pressure 58 mmHg LOW Mean Arterial Pressure (MAP)-BMDI 80 Temperature Source Oral Temperature Mode Fahrenheit Temperature, Fahrenheit 98.7 Deg F Heart Rate Monitored 84 bpm Respiratory Rate 26 Breaths/Min HI Oxygen Saturation 92 % LOW 04/14/2022 10:07 EDT Heart Rate Monitored 81 bpm Respiratory Rate 26 Breaths/Min HI Oxygen Saturation 98 % Oxygen Therapy Mode Room air 04/14/2022 10:00 EDT Systolic Blood Pressure 124 mmHg Systolic Blood Pressure 124 mmHg Diastolic Blood Pressure 59 mmHg LOW Diastolic Blood Pressure 59 mmHg LOW Mean Arterial Pressure (MAP)-BMDI 85 Mean Arterial Pressure (MAP)-BMDI 85 04/14/2022 9:00 EDT Systolic Blood Pressure 112 mmHg Systolic Blood Pressure 112 mmHg Diastolic Blood Pressure 67 mmHg Diastolic Blood Pressure 67 mmHg Mean Arterial Pressure (MAP)-BMDI 86 Mean Arterial Pressure (MAP)-BMDI 86 Heart Rate Monitored 78 bpm Respiratory Rate 47 Breaths/Min HI Oxygen Saturation 88 % LOW 04/14/2022 8:38 EDT Heart Rate Monitored 71 bpm Respiratory Rate 24 Breaths/Min HI Oxygen Saturation 98 % Oxygen Therapy Mode Room air 04/14/2022 8:00 EDT Systolic Blood Pressure 99 mmHg Systolic Blood Pressure 99 mmHg Diastolic Blood Pressure 57 mmHg LOW Diastolic Blood Pressure 57 mmHg LOW Mean Arterial Pressure (MAP)-BMDI 73 Mean Arterial Pressure (MAP)-BMDI 73 04/14/2022 7:00 EDT Systolic Blood Pressure 113 mmHg Diastolic Blood Pressure 62 mmHg Mean Arterial Pressure (MAP)-BMDI 82 Heart Rate Monitored 70 bpm Respiratory Rate 20 Breaths/Min Oxygen Saturation 97 % 04/14/2022 6:00 EDT Systolic Blood Pressure 112 mmHg Diastolic Blood Pressure 57 mmHg LOW Mean Arterial Pressure (MAP)-BMDI 78 Heart Rate Monitored 68 bpm Respiratory Rate 21 Breaths/Min HI Oxygen Saturation 97 % 04/14/2022 5:00 EDT Systolic Blood Pressure 85 mmHg LOW Diastolic Blood Pressure 52 mmHg LOW Mean Arterial Pressure (MAP)-BMDI 64 Heart Rate Monitored 68 bpm Respiratory Rate 19 Breaths/Min Oxygen Saturation 97 % 04/14/2022 4:00 EDT Systolic Blood Pressure 149 mmHg HI Diastolic Blood Pressure 70 mmHg Mean Arterial Pressure (MAP)-BMDI 101 Temperature Source Oral Temperature Mode Fahrenheit Temperature, Fahrenheit 98.2 Deg F Clinical Temperature, C 36.8 Deg C Heart Rate Monitored 87 bpm Respiratory Rate 20 Breaths/Min Oxygen Saturation 95 % 04/14/2022 3:00 EDT Systolic Blood Pressure 101 mmHg Diastolic Blood Pressure 57 mmHg LOW Mean Arterial Pressure (MAP)-BMDI 76 Heart Rate Monitored 69 bpm Respiratory Rate 19 Breaths/Min Oxygen Saturation 100 % 04/14/2022 2:00 EDT Systolic Blood Pressure 155 mmHg HI Diastolic Blood Pressure 67 mmHg Mean Arterial Pressure (MAP)-BMDI 96 Heart Rate Monitored 60 bpm Respiratory Rate 17 Breaths/Min Oxygen Saturation 100 % 04/14/2022 1:00 EDT Systolic Blood Pressure 111 mmHg Diastolic Blood Pressure 55 mmHg LOW Mean Arterial Pressure (MAP)-BMDI 78 Heart Rate Monitored 64 bpm Respiratory Rate 8 Breaths/Min LOW Oxygen Saturation 100 % 04/14/2022 0:00 EDT Systolic Blood Pressure 104 mmHg Diastolic Blood Pressure 59 mmHg LOW Mean Arterial Pressure (MAP)-BMDI 79 Temperature Source Oral Temperature Mode Fahrenheit Temperature, Fahrenheit 98 Deg F Clinical Temperature, C 36.7 Deg C Heart Rate Monitored 66 bpm Respiratory Rate 11 Breaths/Min LOW Oxygen Saturation 100 % FiO2 30 % , Measurements from flowsheet : Measurements 04/14/2022 5:00 EDT Height Source Estimated Height Entry Format Coral Height/Length, SURINAMESE (ft) 5 ft Height/Length SURINAMESE 6 Inch CLINICALHEIGHT 167.64 cm Routine Weight Source Bed scale Routine Weight Entry Format Metric Routine Weight, Kilograms 89.9 kg Routine Weight Calculation 89.9 kg Body Mass Index (BMI), Routine 31.99 kg/m2 Body Surface Area (BSA), Routine 1.99 m2 , Vitals Signs (last 24 hrs) Last Charted Minimum Maximum Temp 97.7 (APR 15 09:54) 97.7 (APR 15 09:54) 98.2 (APR 14 20:00) Apical HR 72 (APR 15 06:00) 72 (APR 15 06:00) 72 (APR 15 06:00) Mon HR 90 (APR 15 09:54) 51 (APR 15 08:26) 96 (APR 15 00:55) Resp Rate 16 (APR 15 09:00) 16 (APR 14 19:45) H 50 (APR 14 21:15) SBP H 181 (APR 15 09:54) 133 (APR 14 19:00) H 181 (APR 15 09:54) DBP H 93 (APR 15 09:54) 66 (APR 14 19:00) H 93 (APR 15 09:54) MAP 124 (APR 15 09:54) 90 (APR 14 19:00) 124 (APR 15 09:54) SpO2 97 (APR 15 15:55) L 88 (APR 14 17:00) 100 (APR 14 21:00) Intake & Output Totals Last 24 Hours (7a-7a) Intake (22 Events) Medications (827.23 mL) Enteral Additional Water Given (40 mL) Enteral Feeding Amount (160 mL) Output (2 Events) Valenzuela Catheter (1320 mL) Input Total: 1027.23 mL Output Total: 1320 mL Balance: -292.77 mL General: Alert and oriented. HENT: Normocephalic, Atraumatic . Neck: Supple, Non-tender, No jugular venous distention. Respiratory: Symmetrical chest wall expansion, Clear to auscultation . Cardiovascular: Normal rate, Trace edema. Gastrointestinal: Soft, Non-tender, Non-distended. Genitourinary: + Urostomy. . Integumentary: Warm, Dry, [place]. Neurologic: Alert, Oriented. Results Review Labs (Last four charted values) WBC 4.8 (MAR 16) 6.0 (MAR 15) 8.4 (MAR 14) 7.3 (APR 12) HB L 7.6 (MAR 16) L 7.2 (MAR 15) L 7.4 (MAR 14) L 7.1 (APR 12) HCT L 23.7 (MAR 16) L 22.3 (MAR 15) L 22.4 (MAR 14) L 21.8 (APR 12) Plt L 106 (MAR 16) L 104 (MAR 15) L 106 (MAR 14) L 113 (APR 12) Na 141 (MAR 16) 139 (MAR 15) 137 (MAR 14) 136 (APR 12) K 3.9 (APR 15) L 3.2 (MAR 15) L 3.1 (APR 13) 3.9 (APR 12) Cl 108 (APR 15) 108 (MAR 15) 107 (MAR 14) 106 (APR 12) CO2 28 (APR 15) 26 (MAR 15) 26 (APR 13) 23 (APR 12) BUN H 29 (MAR 16) H 32 (MAR 15) H 26 (MAR 14) 15 (APR 12) Cr H 1.50 (MAR 16) H 1.60 (MAR 15) H 1.70 (MAR 14) H 1.30 (APR 12) Glu R 106 (MAR 16) H 163 (MAR 15) H 222 (APR 13) H 245 (APR 12) Ca 8.6 (MAR 16) 8.4 (MAR 15) L 8.2 (APR 13) L 8.2 (APR 12) Lactic 1.0 (APR 14) 1.7 (APR 13) 0.7 (APR 12) 0.6 (APR 10) PT 11.1 (APR 09) 10.5 (APR 08) INR 1.0 (APR 09) 1.0 (APR 08) AST 15 (MAR 16) 13 (MAR 15) 15 (MAR 14) 20 (APR 12) ALT 16 (MAR 16) 15 (MAR 15) 16 (MAR 14) 18 (APR 12) ALK P 59 (APR 15) 60 (MAR 15) 64 (MAR 14) 66 (APR 12) T Bili 0.4 (MAR 16) 0.3 (MAR 15) 0.3 (APR 13) 0.4 (APR 12) PTN L 5.7 (APR 15) L 5.0 (APR 14) L 5.3 (APR 13) L 5.6 (APR 12) ALB L 2.2 (APR 15) L 2.0 (APR 14) L 2.1 (APR 13) L 2.3 (APR 12) Lipase H 919 (APR 11) H 638 (APR 10) H 1965 (APR 09) H 1603 (APR 08) Impression and Plan 1- JAVIER on CKD stage III - Likely prerenal azotemia/ ATN secondary to septic shock. [Initially started on CRRT on admission; off CRRT since ] 2- CKD 3: Baseline creatinine around 1.6. Patient follows with nephrology. Solitary kidney 3- Sepsis 4- Hypernatremia- improved. 5- Anemia : S/p blood transfusion on 04/11. 6- Severe Hyperkalemia - Resolved with CRRT. 7- Severe Metabolic acidosis - Resolved. 8- Paraplegic 9- UTI - hydronephrosis [Urology evaluated; chronic hydro; no need for intervention] Plan: -Renal function stable around baseline .. Encourage oral hydration. Monitor for renal recovery. No need for dialysis today.. will remove temporary dialysis catheter. - Avoid nephrotoxic agents. - Adjust meds for GFR . - Monitor H/H and transfuse for Hgb less than 7.0 High risk and complexity patient. documented in this encounter Plan of Treatment Not on file documented as of this encounter Visit Diagnoses Not on filedocumented in this encounter
--- OUTSIDE RECORDS SUMMARY | 2025-02-21 13:35 | XMS_ITS | Clinical Summary ---
Author Organization [employer] Address [address] [place], [place] [address] Care Team Providers Care Mender Knit Goods Name Role Phone Unavailable Primary Care Provider Unavailabl e Social History Tobacco Use Types Packs/Day Years Used Date Smoking Tobacco: Never Assessed Comments Unknown Sex and Gender Information Value Date Recorded Sex Assigned at Not on file Legal Sex Female 1:44 PM CDT Gender Identity Not on file Sexual Orientation Not on file Plan of Treatment Not on file
--- OUTSIDE RECORDS SUMMARY | 2025-02-21 13:35 | XMS_ITS | Encounter Summary ---
Author Organization [employer] Address [address] [place] [address] Care Team Providers Care Quality Improvement Analyst Name Role Phone Unavailable Primary Care Provider Unavailabl e Encounter Details Date Type Department Care Team (Late st Contact Info) Description 04/15/2022 Transcribed Document [facility] [place] Family Medicine [address] [place] [address] ProviderFlorentino MD [address] [place] [address] Social History Tobacco Use Types Packs/Day Years Used Date Smoking Tobacco: Never Assessed Comments Unknown Sex and Gender Information Value Date Recorded Sex Assigned at Not on file Legal Sex Female 1:44 PM CDT Gender Identity Not on file Sexual Orientation Not on file documented as of this encounter Miscellaneous Notes * Cerner Conversion Note - Florentino ProviderMD - 04/15/2022 4:07 PM CDT UM Authorization Entered On: 04/15/2022 16:07 EDT Performed On: 04/15/2022 16:07 EDT by SHILPI MORRELL, PRIMO Primary Insurance Authorization Authorization and Policy Numbers : Insurance 1 Health Plan: [facility] Policy Number: [id number] Authorization Number: Insurance Primary Name : [facility] - [id number] Authorization Status-Primary : Admit approved Reference Number-Primary : [id number] Authorized Service Begin Date-Primary : 04/08/2022 EDT Historical Authorization Comments-Primary : Comment 1: CLINICAL UPDATE FAXED VIA [facility] 04/11-04/15 (Shilpi Morrell, PRIMO 04/15/2022 16:00) Comment 2: Per call to [facility] p2p line Luisa stated p2p took place yestereday 04/14 and denial was OT/approved. Luisa did not have any idea regarding when c/s would be due. VM left for rn review Sharon. (SARAH MORALES RN 04/15/2022 12:15) Comment 3: Per Dr Perez she is agreeable to attempt p2p on Saturday 04/14. Called Logan back and he scheduled for thursday @ 2pm with Dr William calling Dr Cabello. (SARAH MORALES RN 04/11/2022 11:09) Comment 4: Per Katie she did not receive a call to complete this p2p. Called back in & per Orville he can reschedule with a physician. Informed him that I would need to reach out to a diff physician as the one from yesterday is off service now. He stated I can call back in and reschedule. (SARAH MORALES RN 04/11/2022 10:30) Comment 5: Ana Lilia agreed to attempt p2p. Scheduled for 04/[address] William calling Katie (SARAH MORALES RN 04/09/2022 15:26) Comment 6: Message sent to Katie for p2p. She has agreed to attempt. (SARAH MORALES RN 04/09/2022 13:02) Comment 7: PER [employer] IP AUTH PENDED. CLINICAL FAXED VIA [employer] (Digna Kidd Rn-Utilization Review 04/09/2022 11:31) Comment 8: Denied per fax 04/08/22 @ 2501 no resoning noted. Placed in Denials 2021 folder. (Mallory Sanchez, Nephrologist 04/09/2022 09:43) SHILPI MORRELL RN - 04/15/2022 16:07 EDT Electronically signed by Bruce Shell Conversion Electronic Publications Specialist Sohaner at 12/21/2022 5:04 PM CDT documented in this encounter Plan of Treatment Not on file documented as of this encounter Visit Diagnoses Not on filedocumented in this encounter
--- OUTSIDE RECORDS SUMMARY | 2025-02-21 13:35 | XMS_ITS | Encounter Summary ---
Author Organization [employer] Address [address] [place] [address] Care Team Providers Care Lens Generator Name Role Phone Unavailable Primary Care Provider Unavailabl e Encounter Details Date Type Department Care Team (Late st Contact Info) Description 04/15/2022 Transcribed Document [facility] [place] Family Medicine [address] [place] [address] ProviderFlorentino MD [address] [place] [address] Social History Tobacco Use Types Packs/Day Years Used Date Smoking Tobacco: Never Assessed Comments Unknown Sex and Gender Information Value Date Recorded Sex Assigned at Not on file Legal Sex Female 1:44 PM CDT Gender Identity Not on file Sexual Orientation Not on file documented as of this encounter Miscellaneous Notes * Cerner Conversion Note - Florentino Lynne MD - 04/15/2022 12:59 AM CDT Meds to Bed Enrollment Entered On: 04/15/2022 9:55 EDT Performed On: 04/15/2022 0:59 EDT by Ross Bradley Retail Beauty Specialist Cert Lead Meds to Bed Enrollment Patient Enrollment Decision: : Yes/enroll in meds to bed program Ross Bradley Retail Beauty Specialist Cert Lead - 04/15/2022 9:55 EDT documented in this encounter Plan of Treatment Not on file documented as of this encounter Visit Diagnoses Not on filedocumented in this encounter
--- OUTSIDE RECORDS SUMMARY | 2025-02-21 13:35 | XMS_ITS | Encounter Summary ---
Author Organization [employer] Address [address] [place] [address] Care Team Providers Care Senior Asic Design Engineer Name Role Phone Unavailable Primary Care Provider Unavailabl e Encounter Details Date Type Department Care Team (Late st Contact Info) Description 04/16/2022 Transcribed Document [facility] [place] Family Medicine [address] [place] [address] ProviderFlorentino MD [address] [place] [address] Social History Tobacco Use Types Packs/Day Years Used Date Smoking Tobacco: Never Assessed Comments Unknown Sex and Gender Information Value Date Recorded Sex Assigned at Not on file Legal Sex Female 1:44 PM CDT Gender Identity Not on file Sexual Orientation Not on file documented as of this encounter Miscellaneous Notes * Cerner Conversion Note - Florentino Lynne MD - 04/16/2022 11:44 PM CDT Patient: ALYSSA AZUL Age: 61 years Sex: Female : 1960 Associated Diagnoses: None Author: HIGINIO AREVALO MD-INF Antibiotics: Zyvox, meropenem, micafungin. CC: Sacral wound Subjective: Patient without fever stable on broad-spectrum antibiotics hemoglobin stable today creatinine at 1.6 Objective: Vitals Signs (last 24 hrs) Last Charted Minimum Maximum Temp 99.4 (APR 16 20:59) 97.6 (APR 16 14:16) 99.4 (APR 16 20:59) Mon HR 85 (APR 16 20:59) 54 (APR 16 01:53) 96 (APR 16 10:48) Resp Rate 16 (APR 16 20:59) 16 (APR 16 20:59) 18 (APR 16:53) SBP H 149 (APR 16 20:59) 120 (APR 16 01:53) H 161 (APR 16 14:16) DBP 79 (APR 16 20:59) 66 (APR 16 01:53) 89 (APR 16 14:16) MAP 90 (APR 16 20:59) 81 (APR 16 01:53) 118 (APR 16 14:16) SpO2 98 (APR 16 20:59) L 93 (APR 16 14:00) 100 (APR 16 01:53) PE: General: alert, oriented HEENT: sclera white without conjunctival injection. No [...] LABS: Labs (Last four charted values) WBC 5.4 (APR 16) 4.8 (APR 15) 6.0 (APR 14) 8.4 (APR 13) HB L 7.8 (APR 16) L 7.6 (APR 15) L 7.2 (APR 14) L 7.4 (APR 13) HCT L 24.3 (APR 16) L 23.7 (APR 15) L 22.3 (APR 14) L 22.4 (APR 13) Plt L 106 (APR 16) L 106 (APR 15) L 104 (APR 14) L 106 (APR 13) Na 137 (APR 16) 141 (MAR 16) 139 (MAR 15) 137 (APR 13) K 4.1 (APR 16) 3.9 (MAR 16) L 3.2 (MAR 15) L 3.1 (APR 13) Cl 109 (APR 16) 108 (MAR 16) 108 (APR 14) 107 (APR 13) CO2 28 (APR 16) 28 (MAR 16) 26 (MAR 15) 26 (APR 13) BUN H 28 (APR 16) H 29 (MAR 16) H 32 (MAR 15) H 26 (APR 13) Cr H 1.60 (APR 16) H 1.50 (MAR 16) H 1.60 (AUG 15) H 1.70 (APR 13) Glu R 93 (APR 16) 106 (MAR 16) H 163 (MAR 15) H 222 (APR 13) Ca 8.4 (APR 16) 8.6 (MAR 16) 8.4 (MAR 15) L 8.2 (MAR 14) Lactic 1.0 (APR 14) 1.7 (MAR 14) 0.7 (APR 12) 0.6 (APR 10) PT 11.1 (APR 09) 10.5 (APR 08) INR 1.0 (APR 09) 1.0 (APR 08) AST 15 (APR 15) 13 (MAR 15) 15 (MAR 14) 20 (APR 12) ALT 16 (MAR 16) 15 (MAR 15) 16 (APR 13) 18 (APR 12) ALK P 59 (APR 15) 60 (APR 14) 64 (MAR 14) 66 (APR 12) T Bili 0.4 (APR 15) 0.3 (MAR 15) 0.3 (APR 13) 0.4 (APR 12) PTN L 5.7 (APR 15) L 5.0 (APR 14) L 5.3 (MAR 14) L 5.6 (APR 12) ALB L 2.2 (APR 15) L 2.0 (APR 14) L 2.1 (APR 13) L 2.3 (APR 12) Lipase H 919 (APR 11) H 638 (APR 10) H 1965 (APR 09) H 1603 (APR 08) MICRO: Urine culture with E. coli and Pseudomonas Wound culture with MRSA and Citrobacter, another gram-negative gaby- pending IMAGING: Radiology Results (Last 48 hours) [id number] -- 04/08/2022 07:53 CR Chest 1 Vw Portable (04/15/2022 07:02) Result: PORTABLE CHEST; HISTORY: Shortness of air.COMPARISON: April 14, 2022.FINDINGS: The feeding tube has been removed. There has been no otherchange in support devices. The heart is stable in size. The mediastinumis unremarkable. There has been no change in the left basilar opacity orthe small left pleural effusion. There is no pneumothorax. IMPRESSION: No significant interval change.Images reviewed, interpreted, and dictated by Dr. Eri Almanzar.Transcribed by Violeta Lozano PA-C.I have personally viewed, interpreted and dictated the examination. Ihave read and agree with the above final transcribed report. IMPRESSION: - Septic shock with severe sepsis with respiratory and renal failure on multiple pressors -Prior large left gluteal soft tissue infection, ulceration, to level of soft tissue: -Acute hypoxic respiratory failure and Bilateral pulmonary infiltrates: Status post code with cardiopulmonary arrest- now extubated -Hypothermia - Metabolic acidosis - Acute kidney failure on reported CKD, unknown stage- 1.7, today - Acute encephalopathy, improved -Neutrophilic leukocytosis, improved - Anemia - Chronic paraplegia - Obesity - DM2 - Thrombocytopenia, Assessment: 61-year-old chronically ill long hospitalization with ICU care earlier this summer with left gluteal abscess, aspiration pneumonia status post codes multiple episodes of intubation prolonged antibiotics with some improvement transferred out to facility now presents with hyper septic shock unclear source but has some mild right hydronephrosis and hydroureter and has had prior history of aspiration pneumonia currently with acute kidney injury will need mechanical ventilation, pressor support and hemodialysis. At risk for multidrug-resistant infections will change antibiotics to Zyvox, meropenem and micafungin Severe sepsis currently on broad-spectrum antibiotics CRRT and mechanical ventilation and severely ill with very guarded prognosis, leukocytosis improved and now down on pressors today. Wound culture polymicrobial with MRSA and Citrobacter and gram-negative gaby in urine with gram-negative rods continue broad-spectrum coverage with Zyvox, meropenem and micafungin, overall improving extubated alert and oriented off CRRT off pressors, improving more alert fevers resolved and no crrt and buzzsaw operator stable. Platelets are stable continue on broad-spectrum coverage with improvement with Zosyn micafungin and meropenem White blood cell count down no fevers creatinine stable at 1.6 RECOMMENDATIONS/PLANS: -Follow-up cultures, gram-negative rods in urine and wound culture at risk for multidrug-resistant organisms( Citrobacter, Ecoli, GNR, Dinora lusitaniae) -Continue Zyvox, meropenem, and micafungin, de-escalate once susceptibilities return, possible ESBL on gram-negative and has Pseudomonas we will continue meropenem and MRSA and wound culture continue Zyvox discontinue micafungin -Monitor labs documented in this encounter Plan of Treatment Not on file documented as of this encounter Visit Diagnoses Not on filedocumented in this encounter
--- OUTSIDE RECORDS SUMMARY | 2025-02-21 13:36 | XMS_ITS | Encounter Summary ---
Author Organization [employer] Address [address] [place] [address] Care Team Providers Care Apiculture Teacher Name Role Phone Unavailable Primary Care Provider Unavailabl e Encounter Details Date Type Department Care Team (Late st Contact Info) Description 03/04/2022 Transcribed Document [facility] [place] Family Medicine [address] [place] [address] ProviderFlorentino MD [address] [place] [address] Social History Tobacco Use Types Packs/Day Years Used Date Smoking Tobacco: Never Assessed Comments Unknown Sex and Gender Information Value Date Recorded Sex Assigned at Not on file Legal Sex Female 1:44 PM CDT Gender Identity Not on file Sexual Orientation Not on file documented as of this encounter Miscellaneous Notes * Cerner Conversion Note - Florentino ProviderMD - 03/04/2022 5:00 AM CDT Chart Check - Review Order Profile Entered On: 03/04/2022 7:56 EDT Performed On: 03/04/2022 5:00 EDT by Izzy Chowdhury Non Emp RN Chart Check Powerplans Initiated/Discontinued as Appropriate : Yes All Active Orders Reviewed : Yes Izzy Chowdhury Non Emp RN - 03/04/2022 7:55 EDT documented in this encounter Plan of Treatment Not on file documented as of this encounter Visit Diagnoses Not on filedocumented in this encounter
--- OUTSIDE RECORDS SUMMARY | 2025-02-21 13:36 | XMS_ITS | Encounter Summary ---
Author Organization [employer] [facility] Address [address] [place] [address] Care Team Providers Care Mat Machine Tender Name Role Phone Unavailable Primary Care Provider Unavailabl e Encounter Details Date Type Department Care Team (Late st Contact Info) Description 04/14/2022 Transcribed Document [facility] [place] [address] [place] [address] ProviderFlorentino MD [address] [place] [address] Social History Tobacco Use Types Packs/Day Years Used Date Smoking Tobacco: Never Assessed Comments Unknown Sex and Gender Information Value Date Recorded Sex Assigned at Not on file Legal Sex Female 1:44 PM CDT Gender Identity Not on file Sexual Orientation Not on file documented as of this encounter Miscellaneous Notes * Cerner Conversion Note - Florentino Lynne MD - 04/14/2022 7:00 AM CDT FEES Evaluation Entered On: 04/14/2022 9:32 EDT Performed On: 04/14/2022 8:35 EDT by SHANNAN SINGH, HIGHWAY WORKER General Information Visit Type, HIGHWAY WORKER : Initial evaluation Patient Orders : Speech Language Pathology Additional Tx -111 Start: 04/11/22 13:07:00 EDT, For Dysphagia, Continuous Order - FEES - Start: 04/14/22 7:00:00 EDT, Routine, For Swallow Eval and Treat -111 JAMILAH GEORGES MD Admission Date : Admission Date/Time: 04/08/22 07:53:00 Medical Chart Reviewed, HIGHWAY WORKER : Yes Personal Devices : Personal Devices No Devices Recorded Assistive Devices : Assistive Devices No Devices Recorded Active Diagnoses : 04/08/2022 12:00 Acidosis 04/08/2022 12:00 Acute kidney failure, unspecified 04/08/2022 12:00 Acute pancreatitis without necrosis or infection, unspecified 04/08/2022 12:00 Altered mental status 04/08/2022 12:00 Altered mental status, unspecified 04/08/2022 12:00 Hyperkalemia 04/08/2022 12:00 Sepsis, unspecified organism 04/08/2022 12:00 Unspecified fall, initial encounter 04/08/2022 12:00 Urinary tract infection, site not specified Therapy Diagnosis, HIGHWAY WORKER : Patient presents with normal oropharyngeal skills. Recs: 1. Initiate a regular diet 2. TF per MD 3. Up at 90 degrees for all PO 4. Meds per RN No further ST indicated at this time. Precautions in Place : Fall prevention measures, Seizure precautions Previous Swallow Precautions : FEES 02/2022 which was normal Diet/Intake Prior to Current Admission : reg/thin Diet/Intake During Current Admission : NPO with TF via [place] Intubation Comment, HIGHWAY WORKER : 04/08 - 04/10 Vital Signs RTF : Vitals Temp BP Pulse RR SpO2 FIO2 Date Wt(kg) Wt(lb) 04/11 12:30 ---- 95/53 --- 20 100 --- 04/08 82.0 180 04/11 12:15 ---- 96/51 --- 32 100 --- 04/08 81.8 180 04/11 12:00 ---- 106/56 --- 21 100 --- 04/11 11:45 ---- 94/50 --- 23 100 --- 04/11 11:42 ---- ----- --- 27 100 --- 24 Hr Tmax: No Data Available 36 Hr Tmax: No Data Available Vital Signs are the last 5 in the past 48 hours. Weights display the last 5 within 7 days. Initial Wt: 04/08 81.8 kg 180 lb Respiratory Assessment Comment : room air SHANNAN SINGH, HIGHWAY WORKER - 04/14/2022 9:24 EDT General Status Patient Received Status, HIGHWAY WORKER : Long sitting in bed Treatment Start Time, HIGHWAY WORKER : 04/14/2022 8:35 EDT Patient Left Status, HIGHWAY WORKER : Long sitting in bed RN/PCT Informed Comment, HIGHWAY WORKER : additional tx time: [id number] Treatment End Time, HIGHWAY WORKER : 04/14/2022 9:09 EDT Treatment Time, HIGHWAY WORKER : 34 Minute(s) SHANNAN SINGH SLP - 04/14/2022 9:24 EDT Pain Assessment Pain Scaled Used : 0-10 Pain scale Pain Score Pre-Intervention : 0 SHANNAN SINGH SLP - 04/14/2022 9:24 EDT Image 1 - Images currently included [...] Respiration : Normal Phonation/Airway Protection FEES : Asymmetric Phonation/Airway Protection FEES Comment : Thickened right vocal cord and slight hooding of the left arytenoid Consistencies Trialed FEES : Thin by cup, Thin by straw, Pureed, Regular solids, Mixed consistency SHANNAN SINGH SLP - 04/14/2022 9:24 EDT Swallow Impressions Impressions, FEES : No evidence of dysphagia present, Functional swallow for oral intake SHANNAN SINGH SLP - 04/14/2022 9:24 EDT 8 Point Penetration/Aspiration Grid Thin by Cup : 1 Thin by Straw : 1 Pudding : 1 Regular Solids : 1 Mixed Consistency : 1 SHANNAN SINGH SLP - 04/14/2022 9:24 EDT FEES Overall Impressions : Patient presents with normal oropharyngeal skills. No penetration, aspiration, or abnormal pharyngeal residue with any consistency regardless of bolus size, presentation style, or consistency. Patient appears ready to initiate a regular diet, up at 90 degrees for all PO, meds per RN, and no further ST indicated at this time- TF per SHANNAN CONTRERAS SLP - 04/14/2022 9:24 EDT Swallow Recommendations Recommended Diet Type, SwRec : Regular Recommended Liquid Diet, SwRec : Thin Feeding Presentation Style, SwRec : No restrictions Swallow Position, SwRec : Upright 90 degrees Supervision Level w/Meals, SwRec : Independent, complete Recommended Med Present, SwRec : As per nursing SHANNAN SINGH SLP - 04/14/2022 9:24 EDT Therapy Indication Assessment HIGHWAY WORKER Indicated : No HIGHWAY WORKER Not Indicated : No skilled services indicated SHANNAN SINGH SLP - 04/14/2022 9:24 EDT Swallow Plan/Goals Swallow LTG Grid HIGHWAY WORKER Brake Coupler Dinkey Goal #1 HIG[address] WORKER Care Home Goal #2 Swallow LTG : Establish safe oral diet without aspiration Other: Pt goal: I want to go home Status : Goal met Date Met : 04/14/2022 EDT SHANNAN SINGH SLP - 04/14/2022 9:24 EDT SHANNAN SINGH SLP - 04/14/2022 9:24 EDT Swallow Goals Grid Goal #1 Swallow STG : Other: FEES Related To : Measurement by repeat instrumental exam Date to Meet : 04/14/2022 EDT Status : Goal met Date Met : 04/14/2022 EDT SHANNAN SINGH SLP - 04/14/2022 9:24 EDT Education Barriers To Learning : None evident Individuals Taught : Patient Readiness to Learn : Cooperative Readiness to Learn : Explanation SHANNAN SINGH SLP - 04/14/2022 9:[address] WORKER Education Assessment Grid 1 Diet Recommendation : Verbalizes understanding Dysphagia : Verbalizes understanding Instrumental Evaluation : Verbalizes understanding MBSS/VFSS/FEES Results : Verbalizes understanding SHANNAN SINGH SLP - 04/14/2022 9:[address] [facility] HIGHW[address] WORKER Charges [facility] Ea 15 Min : 1 FEES : [address] WORKER EA ADDL 15 MIN NO CHARGE : 1 SHANNAN SINGH SLP - 04/14/2022 9:24 EDT Anticipated Discharge Needs, HIGHWAY WORKER Anticipated Discharge to : Home, with family care Recommend Continued Therapy at Discharge : No SHANNAN SINGH SLP - 04/14/2022 9:24 EDT documented in this encounter Plan of Treatment Not on file documented as of this encounter Visit Diagnoses Not on filedocumented in this encounter
--- OUTSIDE RECORDS SUMMARY | 2025-02-21 13:36 | XMS_ITS | Encounter Summary ---
Author Organization [employer] Address [address] [place] [address] Care Team Providers Care Plastic Joint Maker Name Role Phone Unavailable Primary Care Provider Unavailabl e Encounter Details Date Type Department Care Team (Late st Contact Info) Description 05/13/2022 Transcribed Document [facility] Family Medicine [facility] [place] [address] ProviderFlorentino MD [facility] [place] [address] Social History Tobacco Use Types Packs/Day Years Used Date Smoking Tobacco: Never Assessed Comments Unknown Sex and Gender Information Value Date Recorded Sex Assigned at Not on file Legal Sex Female 1:44 PM CDT Gender Identity Not on file Sexual Orientation Not on file documented as of this encounter Miscellaneous Notes * Cerner Conversion Note - Florentino ProviderMD - 05/13/2022 9:12 AM CDT Discharge Summary, PT Entered On: 05/13/2022 9:17 EDT Performed On: 05/13/2022 9:12 EDT by CATHY ZAPATA, PT Student Discharge Summary Reason for Discharge : Discharged from hospital Discharged to, Therapy : Assisted living CATHY ZAPATA, PT Student - 05/13/2022 9:12 EDT Discharge Summary Comment, PT : Per chart reveiw, Patient required mod A to roll to the right using bed rail and student PT to adjust patient into complete sidelying using bed sheet. Moderate exudate remaining on patients prior dressing. Patient's wound bed was cleaned with saline and 4x4 guaze. Wound bed continues to appear at ~90% healthy red granulation tissue, ~10% slough, and ~5% . Patient's Left greater trochanter wound measures 9cm x 4.5cm x1.3cm. Patient's wound bed has healthy red granulation tissue which is blanchable and on the right of the wound has a deeper area that contains a mild amount of slough. US MIST carton gluing machine operator and MIST threapy performed x 7 minutes per machine protocol to wound bed and periwound areas and patient did not report any pain. Patient's wound was patted dried with 4x4 guaze. Patient's healthy granulation tissue wound covered in 1 uriah dressing and medihoney placed into the center portion of the wound bed. Total wound area and surrounding periwound tissue covered with large foam dressing. Patient returned to supine with min A to roll and reposition patient's Legs. 90% wound bed pink clean and granualtion tissue Patient mobility limited by nausea last session and pt declined moving from supine position. Pt performed supine B UE Blue t-band therex for shoulder flex and abd, elbow flex and ext, and scapular squeezes, Pt also performed without t-band shoulder rolls and AROM B hands Pt able to roll with min asst for pillow placement for offloading and given warm blanket due to c/o I'm cold Pt left with needs in reach 2/2STGs met, 2/6 LTGs met PT has reviewed and agrees with note. ALTHEA AZEVEDO, PT - 05/13/2022 12:41 EDT Short Term Goals Mobility/Bed Mobility STG PT Grid Goal #1 Activity : Supine to sit Assist : Assist, minimal Date to Meet : 05/09/2022 EDT Goal Status : Goal met Date Met : 05/08/2022 EDT CATHY ZAPATA PT Student - 05/13/2022 9:12 EDT Transfer STG Grid Goal #1 Destination : Chair, with arms Type : Other: sliding board if not too much pressure on wound / sit pivot Assist : Assist, maximal Date to Meet : 05/09/2022 EDT Goal Status : Goal met Date Met : 05/04/2022 EDT CATHY ZAPATA PT Student - 05/13/2022 9:12 EDT Corporate Intern Goals Mobility/Bed Mobility LTG PT Grid Goal #1 Goal #3 Activity : Supine to sit Assist : Supervision or set-up Date to Meet : 05/16/2022 EDT Goal Status : Goal met Date Met : 05/08/2022 EDT Comment : see below CATHY ZAPATA PT Student - 05/13/2022 9:12 EDT CATHY ZAPATA PT Student - 05/13/2022 9:12 EDT Transfer LTG Grid Goal #1 Goal #2 Goal #3 Destination : Wheelchair, standard Wheelchair, standard Bed, hospital Type : Other: sliding board if not too much pressure on wound / sit pivot Other: backwards scoot into chair Other: forward scoot Assist : Assist, moderate Supervision or set-up Assist, minimal Date to Meet : 05/16/2022 EDT 05/16/2022 EDT 05/16/2022 EDT Goal Status : Goal met Not met Not met Date Met : 05/09/2022 EDT Comment : pt reports this is how she transfers at baseline CATHY ZAPATA PT Student - 05/13/2022 9:12 EDT CATHY ZAPATA PT Student - 05/13/2022 9:12 EDT CATHY ZAPATA PT Student - 05/13/2022 9:12 EDT BalanceLTG Grid Goal #1 Activity : Sitting, dynamic Assist : Supervision or set-up Date to Meet : 05/16/2022 EDT Goal Status : Not met CATHY ZAPATA PT Student - 05/13/2022 9:12 EDT Other PT LTG Grid Goal #1 Other : Patient's L greater trochanter wound will be 100% closed and blanchable with normalized skin texture and color Date to Meet : 05/15/2022 EDT Goal Status : Not met CATHY ZAPATA PT Student - 05/13/2022 9:12 EDT documented in this encounter Plan of Treatment Not on file documented as of this encounter Visit Diagnoses Not on filedocumented in this encounter
--- OUTSIDE RECORDS SUMMARY | 2025-02-21 13:36 | XMS_ITS | Encounter Summary ---
Author Organization [employer] Address [address] [place] [address] Care Team Providers Care Hand Spray Operator Name Role Phone Unavailable Primary Care Provider Unavailabl e Encounter Details Date Type Department Care Team (Late st Contact Info) Description 2022 Transcribed Document [facility] [place] [address] [place] [address] ProviderFlorentino MD [address] [place] [address] Social History Tobacco Use Types Packs/Day Years Used Date Smoking Tobacco: Never Assessed Comments Unknown Sex and Gender Information Value Date Recorded Sex Assigned at Not on file Legal Sex Female 1:44 PM CDT Gender Identity Not on file Sexual Orientation Not on file documented as of this encounter Miscellaneous Notes * Cerner Conversion Note - Florentino Lynne MD - 2022 4:07 PM CDT Initial Discharge Planning Entered On: 2022 16:17 EDT Performed On: 2022 16:07 EDT by ERIK GALARZA, International Marketing Coordinator-Starter Mechanic Initial Assessment I Previously Documented Living Environment : No qualifying data available. Living Situation : Home Patient Lives With : Adult Child/Children, Caregiver(s) Is the Patient a Caregiver at Home? : No Emergency Contact #1 : DJ Emergency Contact #1 Phone Number : [phone] Emergency Contact #1 Relationship : Son Emergency Contact #2 : * Emergency Contact #2 Phone Number : * Emergency Contact #2 Relationship : * Identified Medical Decision Maker : self Identified Medical Decision Maker Phone : self Number of People in Class : self Identified Medical Decision Maker Class : self 2nd Ident. Medical Decision Maker : FREDO 2nd Ident. Medical Decision Maker Phone : [phone] Secondary Number of People in Class : 1 2nd Ident. Medical Decision Maker Class : Son Enter Doctors Name : Dr. ronna Does Patient have PCP Listed? : Yes Medical Durable Power of Slicing Machine Feeder Name : no Legal Guardian : No ERIK GALARZA International Marketing Coordinator-Starter Mechanic - 2022 16:07 EDT Initial Assessment II Sensory and Motor Deficits : Paraplegia, Weakness Current Home Treatments and Equipment : CPAP, Wheelchair Home Equipment Contact Information : [facility]NA Services and Community Resources : Home Health ERIK GALARZA Social Worker-Starter Mechanic - 2022 16:07 EDT Discharge Needs I Anticipated Discharge Date : 04/30/2022 EDT Anticipated Discharge To, CM : Home with home health Current Home Treatment/Equipment : Current Home Treatment/Equipment No qualifying data available. Post Acute/Home Treatments : None Documentation Status Complete : Yes ERIK GALARZA Social Worker-Starter Mechanic - 2022 16:07 EDT Discharge Needs II Professional Skilled Services : Professional Skilled Services No qualifying data available. Needs Assistance with Transportation : No Discharge Options Discussed with Patient : Acute rehabilitation, Discharge transportation, DME, Home Health, Short term rehabilitation Patient Discharge Goal : Home health care ERIK GALARZA Social Worker-Starter Mechanic - 2022 16:07 EDT Narrative Note Narrative Note : Patient is a readmission. Patient reported that she went home with VNA but it never started because of insurance confusion. Patient stated that straight Medicaid is supposed to start on May 01. Patient stated that she needs help with ADL's including transferring and cleaning herself if she has accidents. However, she can change herself, bath herself, and feed herself. Patient stated that she only came back to hospital because of her BP and blood sugar. She stated that she wants to return home with . Hopefully insurance will be started with straight Medicaid and [facility]NA can accept. Cm will need to confirm. Patient has been to [facility] in the past but cannot and does not want to return there. Patient's son is ivy. Family can transport home. CM will continue to follow. ERIK GALARZA International Marketing Coordinator-Starter Mechanic - 2022 16:07 EDT documented in this encounter Plan of Treatment Not on file documented as of this encounter Visit Diagnoses Not on filedocumented in this encounter
--- OUTSIDE RECORDS SUMMARY | 2025-02-21 13:36 | XMS_ITS | Encounter Summary ---
Author Organization [employer] Address [address] [place] [address] Care Team Providers Care Corrections Lieutenant Name Role Phone Unavailable Primary Care Provider Unavailabl e Encounter Details Date Type Department Care Team (Late st Contact Info) Description 02/25/2022 Transcribed Document [facility] [place] [address] [place] [address] ProviderFlorentino MD [address] [place] [address] Social History Tobacco Use Types Packs/Day Years Used Date Smoking Tobacco: Never Assessed Comments Unknown Sex and Gender Information Value Date Recorded Sex Assigned at Not on file Legal Sex Female 1:44 PM CDT Gender Identity Not on file Sexual Orientation Not on file documented as of this encounter Miscellaneous Notes * Cerner Conversion Note - Florentino ProviderMD - 02/25/2022 5:00 AM CDT Chart Check - Review Order Profile Entered On: 02/25/2022 4:16 EDT Performed On: 02/25/2022 5:00 EDT by Ana Whitney RN Chart Check Powerplans Initiated/Discontinued as Appropriate : Yes All Active Orders Reviewed : Yes Ana Whitney RN - 02/25/2022 4:16 EDT documented in this encounter Plan of Treatment Not on file documented as of this encounter Visit Diagnoses Not on filedocumented in this encounter
--- OUTSIDE RECORDS SUMMARY | 2025-02-21 13:36 | XMS_ITS | Encounter Summary ---
Author Organization [employer] Address [address] [place] [address] Care Team Providers Care Accounting Associate Name Role Phone Unavailable Primary Care Provider Unavailabl e Encounter Details Date Type Department Care Team (Late st Contact Info) Description 2022 Transcribed Document [facility] [place] [address] [place] [address] ProviderFlorentino MD [address] [place] [address] Social History Tobacco Use Types Packs/Day Years Used Date Smoking Tobacco: Never Assessed Comments Unknown Sex and Gender Information Value Date Recorded Sex Assigned at Not on file Legal Sex Female 1:44 PM CDT Gender Identity Not on file Sexual Orientation Not on file documented as of this encounter Miscellaneous Notes * Cerner Conversion Note - Historical ProviderMD - 2022 5:00 AM CDT Chart Check - Review Order Profile Entered On: 2022 4:37 EDT Performed On: 2022 5:00 EDT by Arturo Godoy RN Chart Check Powerplans Initiated/Discontinued as Appropriate : Yes All Active Orders Reviewed : Yes Arturo Godoy RN - 2022 4:37 EDT Electronically signed by Sumaya [facility] Conversion Cardiology Consultant Cerner at 12/21/2022 5:06 PM CDT documented in this encounter Plan of Treatment Not on file documented as of this encounter Visit Diagnoses Not on filedocumented in this encounter
--- OUTSIDE RECORDS SUMMARY | 2025-02-21 13:36 | XMS_ITS | Encounter Summary ---
Author Organization [employer] Address [address] [place] [address] Care Team Providers Care Horse Stud Manager Name Role Phone Unavailable Primary Care Provider Unavailabl e Encounter Details Date Type Department Care Team (Late st Contact Info) Description 2022 Transcribed Document [facility] [place] [facility] [place] [address] ProviderFlorentino MD [facility] [place] [address] Social History Tobacco Use Types Packs/Day Years Used Date Smoking Tobacco: Never Assessed Comments Unknown Sex and Gender Information Value Date Recorded Sex Assigned at Not on file Legal Sex Female 1:44 PM CDT Gender Identity Not on file Sexual Orientation Not on file documented as of this encounter Miscellaneous Notes * Cerner Conversion Note - Florentino Lynne MD - 2022 4:04 AM CDT ED Discharge Entered On: 2022 4:05 EDT Performed On: 2022 4:04 EDT by Gregorio Harrell RN-PATIENT CARE BEDSIDE NON-EXEMPT Discharge Process Patient Disposition : Admit/Observe Personal Belongings With Patient : Yes Patient Education Completed : No Teaching Evaluation : Needs further teaching, Needs reinforcement IV Discontinued : No Nursing Documentation Completed : Yes Gregorio Harrell RN-PATIENT CARE BEDSIDE NON-EXEMPT - 2022 4:04 EDT Admission, ED Nurse Report Accepted By : RN receiving [phone] Nurse Report Acceptance Time : 2022 3:55 EDT `Nurse Report (Hand Off) : Called Accompanied By, Discharge : Other: EDT Mode Of Departure : Bed Gregorio Harrell RN-PATIENT CARE BEDSIDE NON-EXEMPT - 2022 4:04 EDT Electronically signed by Bruce Shell Conversion Tongue And Groove Machine Setter Cerner at 12/21/2022 5:08 PM CDT documented in this encounter Plan of Treatment Not on file documented as of this encounter Visit Diagnoses Not on filedocumented in this encounter
--- OUTSIDE RECORDS SUMMARY | 2025-02-21 13:36 | XMS_ITS | Encounter Summary ---
Author Organization [employer] [facility] Address [address] [place] [address] Care Team Providers Care Cna Name Role Phone Unavailable Primary Care Provider Unavailabl e Encounter Details Date Type Department Care Team (Late st Contact Info) Description 02/24/2022 Transcribed Document [facility] [place] [facility] [address] ProviderFlorentino MD [facility] [place] [address] Social History Tobacco Use Types Packs/Day Years Used Date Smoking Tobacco: Never Assessed Comments Unknown Sex and Gender Information Value Date Recorded Sex Assigned at Not on file Legal Sex Female 1:44 PM CDT Gender Identity Not on file Sexual Orientation Not on file documented as of this encounter Miscellaneous Notes * Cerner Conversion Note - Florentino Lynne MD - 02/24/2022 3:22 PM CDT On Going Discharge Planning Entered On: 02/24/2022 15:30 EDT Performed On: 02/24/2022 15:22 EDT by EMIL ELLISON, Window Framer Care Management Progress Note Discharge Arrangements : Patient Post-Acute Information Patient Name: ALYSSA AZUL Gender: Female : 60 Age: 61 Years No Post-Acute Placement(s) Listed No Post-Acute Service(s) Listed No [place] Referral(s) Listed Discharge Options Discussed with Patient : Other: NA pt intubated Barriers to Discharge Identified : Clinical Condition of Patient Barriers to Discharge Unresolved : Clinical Condition of Patient Patient Discharge Goal : half-way facility Patient Offered Choice/Affiliations Explained : No Designation of Choice Signed : No List/Info Provided Pt/Fam/Support Person : Other: none Were Referrals Sent to Post Acute Providers : No [facility] Quality Web Info Shared w Pt/Fam : No Does the Patient have a Floor to SNF Benefit? : No Is the Patient Meeting Medical Necessity : Yes Physician Agreeable to Move Forward with D/C Plan? : Yes Did you Attend Multidisciplinary Rounds? : No EMIL ELLISON, Window Framer - 02/24/2022 15:22 EDT Narrative Progress Note Narrative Progress Note : Covering today for DCP. Pt is s/p post op cardiac arrest following debridement of lg L hip ulceration. Pt extubated Sat morning (02/22/22) but unfortunately had to be re-intubated Sat evening due to aspiration of food. SBT attempted today but RR increased and were unable to extubate. Tube feeding started 02/23 and pt is tolerating. Wound vac placed L hip today as well. Sent email to kenne pt's emergency contact to her son/BAUDILIO Azul. Pt is longstanding parapalegic and family feel she will need rehab at [facility], but do plan on bring pt to live w/ them after rehab. Unfortunately pt only has [employer] Medicaid so sub-acute/SNF rehab highly unlkely, will need acute rehab such as [facility]. CM will cont to follow. INPT HIGH Historical Progress Note : 61yo female admitted from [facility] after cardiac arrist. The pt was at [facility] after her sister found her at home with a large left hip ulceration. THe pt was also coughing with sputum production. THe pt was found to have LLL pnemonia. The pt was taken to surgery for surgical debridement of left hip wound. The pt then suffered cardiac arrest postoperativley. The pt was intubated and started on broad spectrum antibiotics and transfered here for a higher level of care. ID, cardiology, nephro, and surgery consulted. ID following post septic shock and adjusting abx. Nephro saw today and following for decreaed kidney function and surgery saw today and assesed wound and no further surgical intervention reccomended and to do wet to dry dressing changes until Thursday when wound care team can assess and make furthur reccomendations. CM spoke with the Pt son as pt is currently sedated and on BiPAP. The pt son states that prior to hospital stay the pt was iADL at home alone with family that lived close by and would assist with what the pt could not do alone. THe pt son states that he discused to day that the pt would need to go to a different level of care prior to DC home for wound care. CM did not see direct mention of this in notes today. The pt son states that when the pt is medically reeady to return home he and his have discussed haveing the pt live with them and pending pt level of care at time od DC they will transport if appropriate. As of right now per [facility] notes pt still in critical condition. CM will continue to follow. Plan: TBD pending hospital course. INP> Mod. Angeles Rushing RN - 02/22/22 16:17:03 EMIL ELLISON, Window Framer - 02/24/2022 15:22 EDT documented in this encounter Plan of Treatment Not on file documented as of this encounter Visit Diagnoses Not on filedocumented in this encounter
--- OUTSIDE RECORDS SUMMARY | 2025-02-21 13:36 | XMS_ITS | Encounter Summary ---
Author Organization [email or web address] Address [address] [place] [address] Care Team Providers Care Supervisor Sandblaster Name Role Phone Unavailable Primary Care Provider Unavailabl e Encounter Details Date Type Department Care Team (Late st Contact Info) Description 03/04/2022 Transcribed Document [facility] [place] [address] [place] [address] ProviderFlorentino MD [address] [place] [address] Social History Tobacco Use Types Packs/Day Years Used Date Smoking Tobacco: Never Assessed Comments Unknown Sex and Gender Information Value Date Recorded Sex Assigned at Not on file Legal Sex Female 1:44 PM CDT Gender Identity Not on file Sexual Orientation Not on file documented as of this encounter Miscellaneous Notes * Cerner Conversion Note - Florentino Lynne MD - 03/04/2022 2:03 PM CDT UM Authorization Entered On: 03/04/2022 14:04 EDT Performed On: 03/04/2022 14:03 EDT by Jelani Anne, counter stitcher Primary Insurance Authorization Authorization and Policy Numbers : Insurance 1 Health Plan: [facility] Policy Number: [id number] Authorization Number: Insurance Primary Name : [facility] Policy Number: [id number] Authorization Number: Authorization Status-Primary : Drg approved Reference Number-Primary : [id number] Number of Days Authorized-Primary : 8 Day(s) Authorized Service Begin Date-Primary : 03/01/2022 EDT Authorized Service End Date-Primary : 03/09/2022 EDT Authorization Comments-Primary : UPLOADED CLINICALS VIA [employer] AND FAXED TO [facility]/ AWAITING CALLBACK/ REFERENCE # LISTED ON FRONT PAGE. Historical Authorization Comments-Primary : Comment 1: Authorized per fax 03/02/22 @ 1335. Approved DRG admission. Next reivew due 03/10. -Hannah Castillo. (Mallory Sanchez, High School Agriculture Teacher 03/04/2022 11:20) Comment 2: Rec vm from Hannah at [facility] on [id number] line on 03/02/22 at 8:42am She is req clinical be sent in Transf VM to [facility] so she could follow up (SHERIF LYNCH, Concrete Truck Driver 03/04/2022 09:42) Comment 3: auth # per star notes, faxed clinicals via [facility] 03/01 (JOSEPH GUTIERREZ, RN-UTILIZATION MANAGEMENT REVIEW NON-EXEMPT 03/02/2022 11:28) Jelani Anne, counter stitcher - 03/04/2022 14:03 EDT Electronically signed by Bruce Shell Conversion Director Of Convention Services Cerner at 12/21/2022 5:03 PM CDT documented in this encounter Plan of Treatment Not on file documented as of this encounter Visit Diagnoses Not on filedocumented in this encounter
--- OUTSIDE RECORDS SUMMARY | 2025-02-21 13:36 | XMS_ITS | Encounter Summary ---
Author Organization [employer] Address [address] [place] [address] Care Team Providers Care Biology Internship Name Role Phone Unavailable Primary Care Provider Unavailabl e Encounter Details Date Type Department Care Team (Late st Contact Info) Description 03/04/2022 Transcribed Document [facility] [place] Family Medicine [facility] [place] [address] ProviderFlorentino MD [address] [place] [address] Social History Tobacco Use Types Packs/Day Years Used Date Smoking Tobacco: Never Assessed Comments Unknown Sex and Gender Information Value Date Recorded Sex Assigned at Not on file Legal Sex Female 1:44 PM CDT Gender Identity Not on file Sexual Orientation Not on file documented as of this encounter Miscellaneous Notes * Cerner Conversion Note - Florentino ProviderMD - 03/04/2022 6:27 AM CDT Patient: ALYSSA AZUL Age: 61 years Sex: Female : 1960 Associated Diagnoses: None Author: ARNOLDO MON PA-C Basic Information Pulmonary/CCM Consultation Note Date of Admission: 03/01/22 Date of Consultation: 03/01/22 Referring Provider: Elaine Ramires MD ([facility]) Reason for Consultation: Ventilator/CCM CC: Unobtainable History of Present Illness: This is a 61-year-old female with underlying medical history including paraplegia, CKD, stage III, T2DM, and HTN. At time of evaluation, patient is intubated, sedated, and on ventilator support and both son and rjodvqyi-bu-dvv are present at bedside to give some medical background; therefore, history and hospital course is primarily retrieved from them and through medical chart review. In summary, patient was admitted to [facility] on 02/17/22 with symptoms including dyspnea, [...] higher level care, she was transferred to [facility] on 02/22. Patient was extubated on [...] x-ray, worsening opacities of right lung field. Intake & Output Totals Last 24 Hours (7a-7a) Intake (45 Events) Continuous Infusions (167.6 mL) Medications (297.52 mL) Output (4 Events) Valenzuela Catheter (1470 mL) Input Total: 465.12 mL Output Total: 1470 mL Balance: -1004.88 mL Review of Systems Unable to obtain Health Status Allergies: Allergic Reactions (Selected) No [...] oral tablet: Tab, Oral, Daily, 0 Refill(s) [place]-3 1000 mg oral capsule: Cap, Oral, QID, [...] oral tablet: Tab, Oral, Daily, 0 Refill(s) Physical Examination VS/Measurements Vitals Signs (last 24 hrs) Last Charted Minimum Maximum Temp 98.5 (MAR 04 04:00) 98.0 (MAR 03 08:00) 98.0 (MAR 03 08:) Apical HR 72 (MAR 03 09:03) 72 (MAR 03 09:03) 72 (MAR 03 09:03) Mon HR 77 (MAR 04 05:45) 59 (MAR 03 08:00) 93 (MAR 03 10:00) Resp Rate 16 (MAR 04 05:45) L 9 (MAR 03 09:28) H 24 (MAR 03 11:00) SBP 93 (MAR 04 05:30) 93 (MAR 04 05:00) H 170 (MAR 03 09:00) DBP L 53 (MAR 04 05:30) L 53 (MAR 04 05:00) 82 (MAR 03 10:00) MAP 67 (MAR 04 05:30) 67 (MAR 04 05:00) 117 (MAR 03 10:00) SpO2 L 92 (MAR 04 05:45) L 92 (MAR 04 05:45) 100 (MAR 03 07:00) Intake & Output Totals Last 24 Hours (7a-7a) Intake (45 Events) Continuous Infusions (167.6 mL) Medications (297.52 mL) Output (4 Events) Valenzuela Catheter (1470 mL) Input Total: 465.12 mL Output Total: 1470 mL Balance: -1004.88 mL General: Sedated on the ventilator. Eye: Pupils are equal, round and reactive to light, Extraocular movements are intact, Normal conjunctiva. HENT: Normocephalic. Neck: Supple. Respiratory: Breath sounds are equal, Symmetrical chest wall expansion, Coarse crackles R>L, diminished at bases bilaterally.. Cardiovascular: Normal rate, Regular rhythm, S1, S2, No edema. Gastrointestinal: Soft, Non-tender, Non-distended, Normal bowel sounds. Genitourinary: Support: Urinary catheter ( Indwelling ). Musculoskeletal: Paraplegic at baseline. Neurologic: Sedated on the ventilator, awake and following commands. Psychiatric: Unable to assess.. Review / Management Results review: Labs (Last four charted values) WBC 6.8 [...] 01) . Radiology Results (Last 48 hours) [id number] -- 03/01/2022 17:45 CR Chest 1 Vw Portable (03/03/2022 04:00) [...] venous duplex 03/02: Negative for SVT/DVT bilaterally. Impression and Plan Pulmonary Acute hypoxic respiratory failure, on MV [...] Baseline paraplegia Baseline mentation not observed Renal Wkclb-cu-XJI -- improving Electrolyte abnormalities Hyperchloremia Endocrine T2DM Glycemic control Hematology/Oncology Leukocytosis Plan: Vent bundle. Wean FiO2, for goal saturation >90%. 5 of PEEP and 40% FiO2, spoke to the nurse at the bedside and will DC propofol and proceed to breathing trial. Chest x-ray reviewed independently showing improvement of left lung opacity still bilateral lower lobe opacities differentials include atelectasis/pneumonia/bilateral pleural effusion. We will send for ultrasound chest. Sedation: On Propofol/Fentanyl. Titrate to RASS goal 0. DuoNebs Q6h. Pulmicort nebs BID. Mucinex 400mg Q6h, due to thick secretions from ET tube. Chest PT QID. Mucomyst nebs x3d. ID following. Current antibiotics per ID: Zosyn. PNA PCR panel: Klebsiella, Staph Aureus Trend infectious markers. If she becomes afebrile or leukocytosis worsens, will order new blood/urine cultures. Nephrology consulted per primary, appreciate input. Glycemic control: per primary. Nutrition: NPO except for meds. Patient may need Corpak placed in addition to TF initiation should she remain on MV. GI prophylaxis: Pepcid. VTE prophylaxis: Heparin SQ CODE STATUS: Full Code Disposition: ICU Addendum: Today on 03/03, 10:45 AM. Family meeting: I spoke to the son and the blepzgnj-zl-jme at the bedside explained the findings of [...]
--- OUTSIDE RECORDS SUMMARY | 2025-02-21 13:36 | XMS_ITS | Encounter Summary ---
Author Organization [email or web address] [facility] Address [address] [place] [address] Care Team Providers Care District Engineer Name Role Phone Unavailable Primary Care Provider Unavailabl e Encounter Details Date Type Department Care Team (Late st Contact Info) Description 04/15/2022 Transcribed Document [facility] [place] [address] [place] [address] ProviderFlorentino MD [address] [place] [address] Social History Tobacco Use [...] Note - Florentino Lynne MD - 04/15/2022 12:15 PM CDT UM Authorization Entered On: 04/15/2022 12:24 EDT Performed On: 04/15/2022 12:15 EDT by SARAH MORALES RN Primary Insurance Authorization Authorization and Policy Numbers : Insurance 1 Health Plan: [facility] Policy Number: [id number] Authorization Number: Insurance Primary Name : [facility] - [id number] Authorization Status-Primary : Admit approved Reference Number-Primary : [id number] Authorized Service Begin Date-Primary : 04/08/2022 EDT Authorization Comments-Primary : Per call to [facility] p2p soto Moran stated p2p took place yestereday 04/14 and denial was OT/approved. Luisa did not have any idea regarding when c/s would be due. left for ditch digger Sharon. Historical Authorization Comments-Primary : Comment 1: Per Dr Perez she is agreeable to attempt p2p on Saturday 04/14. Called Logan back and he scheduled for thursday @ 2pm with Dr William calling Dr Cabello. (SARAH MORALES RN 04/11/2022 11:09) Comment 2: Per Katie she did not receive a call to complete this p2p. Called back in & per Orville he can reschedule with a physician. Informed him that I would need to reach out to a diff physician as the one from yesterday is off service now. He stated I can call back in and reschedule. (SARAH MORALES RN 04/11/2022 10:30) Comment 3: Ana Lilia agreed to attempt p2p. Scheduled for 04/[address] William calling Katie (SARAH MORALES RN 04/09/2022 15:26) Comment 4: Message sent to [facility] for p2p. She has agreed to attempt. (SARAH MORALES RN 04/09/2022 13:02) Comment 5: PER [employer] IP AUTH PENDED. CLINICAL FAXED VIA [employer] (Digna Kidd Rn-Utilization Review 04/09/2022 11:31) Comment 6: Denied per fax 04/08/22 @ 1635 no resoning noted. Placed in Denials 2021 folder. (Mallory Sanchez, Financial Services Officer 04/09/2022 09:43) SARAH MORALES RN - 04/15/2022 12:15 EDT documented in this encounter Plan of Treatment Not on file documented as of this encounter Visit Diagnoses Not on filedocumented in this encounter
--- OUTSIDE RECORDS SUMMARY | 2025-02-21 13:36 | XMS_ITS | Encounter Summary ---
Author Organization [employer] [facility] Address [address] [place] [address] Care Team Providers Care Yarn Sizer Name Role Phone Unavailable Primary Care Provider Unavailabl e Encounter Details Date Type Department Care Team (Late st Contact Info) Description 2022 Transcribed Document [facility] [place] Family Medicine [address] [place] [address] ProviderFlorentino MD [address] [place] [address] Social History Tobacco Use Types Packs/Day Years Used Date Smoking Tobacco: Never Assessed Comments Unknown Sex and Gender Information Value Date Recorded Sex Assigned at Not on file Legal Sex Female 1:44 PM CDT Gender Identity Not on file Sexual Orientation Not on file documented as of this encounter Miscellaneous Notes * Cerner Conversion Note - Florentino Lynne MD - 2022 11:46 AM CDT UM Authorization Entered On: 2022 11:48 EDT Performed On: 2022 11:46 EDT by SARAH MORALES RN Primary Insurance Authorization Authorization and Policy Numbers : Insurance 1 Health Plan: [facility] Policy Number: [id number] Authorization Number: Insurance 2 Health Plan: MEDICAID [facility] Policy Number: [id number] Authorization Number: Insurance Primary Name : [facility] Policy Number: [id number] Authorization Status-Primary : Awaiting callback Authorized Service Begin Date-Primary : 2022 EDT Authorization Comments-Primary : Faxed initial clinicals via [facility]. Historical Authorization Comments-Primary : No Authorization Comments Found SARAH MORALES RN - 2022 11:46 EDT documented in this encounter Plan of Treatment Not on file documented as of this encounter Visit Diagnoses Not on filedocumented in this encounter
--- OUTSIDE RECORDS SUMMARY | 2025-02-21 13:36 | XMS_ITS | Encounter Summary ---
Author Organization [employer] Address [address] [place] [address] Care Team Providers Care Sub Master Name Role Phone Unavailable Primary Care Provider Unavailabl e Encounter Details Date Type Department Care Team (Late st Contact Info) Description 04/28/2022 Transcribed Document [facility] [place] Family Medicine [facility] [place] [address] ProviderFlorentino MD [facility] [place] [address] Social History Tobacco Use Types Packs/Day Years Used Date Smoking Tobacco: Never Assessed Comments Unknown Sex and Gender Information Value Date Recorded Sex Assigned at Not on file Legal Sex Female 1:44 PM CDT Gender Identity Not on file Sexual Orientation Not on file documented as of this encounter Miscellaneous Notes * Cerner Conversion Note - Florentino ProviderMD - 04/28/2022 9:43 PM CDT ED Triage Entered On: 04/28/2022 22:09 EDT Performed On: 04/28/2022 21:47 EDT by Alma Shore Rn ED Triage Across the Room Chief Complaint : pt presents to ER c/o hypotension, elevated glucose. states she was recently admitted for sepsis. has wound to L buttock w/ wound vac. bp 86/41 on arrival. Alma Shore Rn - 04/28/2022 22:15 EDT Triage Date/Time : 04/28/2022 21:47 EDT Alma Shore Rn - 04/28/2022 21:47 EDT DCP GENERIC CODE Tracking Group : [facility] ED Tracking Acuity : 2 - Emergent Alma Shore Rn - 04/28/2022 21:47 EDT Mode of Arrival : Wheelchair Transported to ED by : Walk in To Room Via : Wheelchair Accompanied By : Son ED Vital Signs : Document Height & Weight : Document ED Allergies : Document ED Reason for Visit : Document Alma Shore Rn - 04/28/2022 21:47 EDT Infectious Disease History Does patient have symptoms of COVID-19? : No Tested for COVID19 in the past 14 days : No, Patient stated Does the Patient state known exposure to a COVID-19 positive case in the last 14 days? : No Patient Vaccinated for COVID-19 : Fully vaccinated Alma Shore Rn - 04/28/2022 21:47 EDT Infectious Disease Risk Screening Grid Cough < 2 wks of unknown origin : NO Cough > 2 weeks : NO Blood in Sputum : NO Fever or self-reported Fever : NO Rash of unknown origin : NO Headache : NO Stiff neck : NO Night Sweats : NO Unexplained Weight Loss : NO Diarrhea (3 episode per day) : NO Alma Shore Rn - 04/28/2022 21:47 EDT Physical contact outside [place] in the last 30 days : No Hospitalized in Foreign Country : No Infectious Disease History : Unable to assess INF Disease TB Screening Calc : 0 INF Disease Recent Travel Calc : 0 Alma Shore Rn - 04/28/2022 21:47 EDT Vital Signs ED Temperature Source : Oral Temperature Mode : Fahrenheit Temperature, Fahrenheit : 98.1 Deg F Clinical Temperature, C : 36.7 Deg C Oxygen Therapy Mode : Room air Peripheral Pulse Rate : 73 bpm Respiratory Rate : 16 Breaths/Min Blood Pressure Location : Arm, left upper Blood Pressure Source : Non-Invasive BP Device Systolic Blood Pressure : 86 mmHg (LOW) Diastolic Blood Pressure : 41 mmHg (LOW) Oxygen Saturation : 98 % Alma Shore Rn - 04/28/2022 21:47 EDT Allergy (As Of: 04/28/2022 22:09:40 EDT) Allergies (Active) No Known Allergies Estimated Onset Date: Unspecified ; Created By: Bridgette Ribera RN-PATIENT CARE BEDSIDE NON-EXEMP; Reaction Status: Active ; Category: Drug ; Substance: No Known Allergies ; Type: Allergy ; Updated By: Bridgette Ribera RN-PATIENT CARE BEDSIDE NON-EXEMP; Reviewed Date: 04/28/2022 21:52 EDT Diagnosis Control ED (As Of: 04/28/2022 22:09:40 EDT) Problems(Active) Chronic kidney disease (CKD), stage III (moderate) (SNOMED CT :5092843390 ) Name of Problem: Chronic kidney disease (CKD), stage III (moderate) ; Recorder: TRINIDAD LANDIS RN; Confirmation: Confirmed ; Classification: Patient Stated ; Code: 5291024073 ; Contributor System: PowerChart ; Last Updated: 03/01/2022 23:55 EDT ; Life Cycle Date: 03/01/2022 ; Life Cycle Status: Active ; Vocabulary: SNOMED CT Diabetes (SNOMED CT :748153927 ) Name of Problem: Diabetes ; Recorder: OG CAAL MD-INT; Confirmation: Confirmed ; Classification: Medical ; Code: 874425841 ; Contributor System: PowerChart ; Last Updated: 03/20/2022 13:12 EDT ; Life Cycle Date: 03/20/2022 ; Life Cycle Status: Active ; Responsible Provider: OG CAAL MD-INT; Vocabulary: SNOMED CT History of obstructive sleep apnea (IMO :25172553 ) Name of Problem: History of obstructive sleep apnea ; Recorder: SYSTEM, SYSTEM; Confirmation: Confirmed ; Classification: Medical ; Code: 01661691 ; Last Updated: 02/22/2022 18:34 EDT ; Life Cycle Date: 02/22/2022 ; Life Cycle Status: Active ; Vocabulary: IMO Hyperlipidemia (SNOMED CT :76541930 ) Name of Problem: Hyperlipidemia ; Recorder: TRINIDAD LANDIS RN; Confirmation: Confirmed ; Classification: Patient Stated ; Code: 38610149 ; Contributor System: PowerChart ; Last Updated: 03/01/2022 23:54 EDT ; Life Cycle Date: 03/01/2022 ; Life Cycle Status: Active ; Vocabulary: SNOMED CT Hypertension (SNOMED CT :0661128807 ) Name of Problem: Hypertension ; Recorder: TRINIDAD LANDIS RN; Confirmation: Confirmed ; Classification: Patient Stated ; Code: 0398305331 ; Contributor System: PowerChart ; Last Updated: 03/01/2022 23:55 EDT ; Life Cycle Date: 03/01/2022 ; Life Cycle Status: Active ; Vocabulary: SNOMED CT Paraplegia (SNOMED CT :017811556 ) Name of Problem: Paraplegia ; Recorder: Maddison Sepulveda Lpn; Confirmation: Confirmed ; Classification: Patient Stated ; Code: 432921747 ; Contributor System: [employer] ; Last Updated: 03/17/2022 2:03 EDT ; Life Cycle Date: 03/17/2022 ; Life Cycle Status: Active ; Vocabulary: SNOMED CT Diagnoses(Active) Hypotension Date: 04/28/2022 ; Diagnosis Type: Reason For Visit ; Confirmation: Complaint of ; Clinical Dx: Hypotension ; Classification: Medical ; Clinical Service: Emergency medicine ; Code: PNED ; Probability: 0 ; Diagnosis Code: [id number] ED Height and Weight Height Source : Stated Height Entry Format : [place] Height, Feet : 5 ft(Converted to: 152 cm, 60 Inch) Height, Inches : 6 Inch(Converted to: 0 ft 6 Inch, 15.24 cm) Clinical Height : 167.64 cm Weight Source, ED : Critical estimated dosing weight Weight Entry Format : Alma Alcantara Rn - 04/28/2022 21:47 EDT Weight, Pounds : 177.9 lb Clinical Dosing Weight : 80.86 kg Body Surface Area (BSA) : 1.9 m2 Body Mass Index : 28.8 kg/m2 (HI) Alma Shore Rn - 04/28/2022 22:15 EDT [place] Body Weight (IBW) : 58.88 kg Alma Shore Rn - 04/28/2022 21:47 EDT documented in this encounter Plan of Treatment Not on file documented as of this encounter Visit Diagnoses Not on filedocumented in this encounter
--- OUTSIDE RECORDS SUMMARY | 2025-02-21 13:36 | XMS_ITS | Encounter Summary ---
Author Organization [employer] [facility] Address [address] [place] [address] Care Team Providers Care Table Games Shift Manager Name Role Phone Unavailable Primary Care Provider Unavailabl e Encounter Details Date Type Department Care Team (Late st Contact Info) Description 05/13/2022 Transcribed Document [facility] Family Medicine [address] [place] [address] ProviderFlorentino MD [address] [place] [address] Social History Tobacco Use Types Packs/Day Years Used Date Smoking Tobacco: Never Assessed Comments Unknown Sex and Gender Information Value Date Recorded Sex Assigned at Not on file Legal Sex Female 1:44 PM CDT Gender Identity Not on file Sexual Orientation Not on file documented as of this encounter Miscellaneous Notes * Cerner Conversion Note - Florentino Lynne MD - 05/13/2022 8:29 AM CDT UM Authorization Entered On: 05/13/2022 8:29 EDT Performed On: 05/13/2022 8:29 EDT by SARAH MORALES RN Primary Insurance Authorization Authorization and Policy Numbers : Insurance 1 Health Plan: [facility] Policy Number: [id number] Authorization Number: Insurance 2 Health Plan: MEDICAID [facility] Policy Number: [id number] Authorization Number: Insurance Primary Name : [facility] Policy Number: [id number] Authorization Status-Primary : Denied Reference Number-Primary : [id number] Authorized Service Begin Date-Primary : 2022 EDT Authorization Comments-Primary : Sent to appeals for readmission. Historical Authorization Comments-Primary : Comment 1: Per Marina the readmission determination will be reached when claim is received (SARAH MORALES RN 05/12/2022 16:39) Comment 2: Left VM for Marina with [facility] inquiring if admit will be linked to previous admit 04/08-04/26 auth # [id number]. Per fax states denied due to being linked readmit. (SARAH MORALES RN 05/01/2022 10:02) Comment 3: Rec faxed Denial from [facility] 04/30/22 placed in tray on JJs desk (SHERIF LYNCH, Senior Telecommunications Technician 04/30/2022 12:52) Comment 4: Faxed initial clinicals via [employer]. (SARAH MORALES RN 2022 11:46) SARAH MORALES RN - 05/13/2022 8:29 EDT documented in this encounter Plan of Treatment Not on file documented as of this encounter Visit Diagnoses Not on filedocumented in this encounter
--- OUTSIDE RECORDS SUMMARY | 2025-02-21 13:36 | XMS_ITS | Encounter Summary ---
Author Organization [employer] Address [address] [place] [address] Care Team Providers Care Client Services Specialist Name Role Phone Unavailable Primary Care Provider Unavailabl e Encounter Details Date Type Department Care Team (Late st Contact Info) Description 2022 Transcribed Document [facility] [place] Family Medicine [facility] [place] [address] ProviderFlorentino MD [address] [place] [address] Social History Tobacco Use Types Packs/Day Years Used Date Smoking Tobacco: Never Assessed Comments Unknown Sex and Gender Information Value Date Recorded Sex Assigned at Not on file Legal Sex Female 1:44 PM CDT Gender Identity Not on file Sexual Orientation Not on file documented as of this encounter Miscellaneous Notes * Cerner Conversion Note - Florentino Lynne MD - 2022 10:46 AM CDT Patient: ALYSSA AZUL Age: 62 years Sex: Female : 1960 Associated Diagnoses: None Author: HIGINIO AREVALO MD-INF Antibiotics: vanco and cefepime CC: Sacral wound and recurrent UTIs Subjective: Patient readmitted now around 48 hours after discharge with dehydration lactic acidosis but afebrile normal heart rate normal blood pressure today started on vancomycin and cefepime and infectious disease consultation requested. With fluids lactic acid level now normal urine with some pyuria but cultures negative Objective: Vitals Signs (last 24 hrs) Last Charted Minimum Maximum Temp 98.2 (APR 29 08:14) 98.2 (APR 29 08:14) 98.1 (APR 28 21:47) Mon HR 83 (APR 29 08:14) 74 (APR 28 22:00) 86 (APR 29 02:49) Periph HR 73 (APR 28 21:47) 73 (APR 28 21:47) 73 (APR 28 21:47) Resp Rate 18 (APR 29 08:14) 16 (APR 28 21:47) H 21 (APR 29 00:30) SBP 94 (APR 29 10:00) L 86 (APR 28 21:47) H 149 (APR 29 03:53) DBP 60 (APR 29 10:00) L 41 (APR 28 21:47) 90 (APR 29 00:00) MAP 77 (APR 29 08:14) 69 (APR 29 04:43) 111 (APR 29 00:00) SpO2 96 (APR 29 08:14) 95 (APR 29 02:49) 98 (APR 28 21:47) PE: General: alert, oriented x3, chronically ill-appearing HEENT: sclera white without conjunctival injection. No erythema, exudate or ulceration. No thrush present. Neck: Supple without nuchal rigidity Lungs: few scattered rhonchi Cardiovascular: normal S1/S2; RRR, no m/r/g. : Some rash noted Abdomen: soft, non-tender, non-distended, positive bowel sounds throughout. Lower extremity: No cyanosis, clubbing with lower extremity edema Neuro: paraplegia : Left hip and sacral wound with dressing in place LABS: Labs (Last four charted values) WBC 7.2 (APR 28) HB L 9.2 (APR 28) HCT L 29.1 (APR 28) Plt 318 (APR 28) Na 137 (APR 28) [...] pending IMAGING: Radiology Results (Last 48 hours) [id number] -- 2022 00:16 CR Chest 1 Vw [...] dictated and electronically signed by MD Thai IMPRESSION: -Recurrent UTI evaluate for acute UTI [...] -D/c vancomycin Continue cefepime 1 g IV every 8 hours Follow-up on cultures Add on CRP to a.m. labs monitor BMP closely I spent greater than 35 minutes her case today with more than 50% time in counseling/coordination of care review of admission laboratory studies all of microbiology for continued broad-spectrum antibiotic coverage Electronically signed by Sumaya, Bruce Conversion Aircraft Structural Repair Mechanic Cerner at 12/21/2022 5:08 PM CDT documented in this encounter Plan of Treatment Not on file documented as of this encounter Visit Diagnoses Not on filedocumented in this encounter
--- OUTSIDE RECORDS SUMMARY | 2025-02-21 13:36 | XMS_ITS | Encounter Summary ---
Author Organization [facility] Address [address] [place] [address] Care Team Providers Care Market Development Manager Name Role Phone Unavailable Primary Care Provider Unavailabl e Encounter Details Date Type Department Care Team (Late st Contact Info) Description 03/04/2022 Transcribed Document [facility] [place] Family Medicine [address] [place] [address] ProviderFlorentino MD [address] [place] [address] Social History Tobacco Use Types Packs/Day Years Used Date Smoking Tobacco: Never Assessed Comments Unknown Sex and Gender Information Value Date Recorded Sex Assigned at Not on file Legal Sex Female 1:44 PM CDT Gender Identity Not on file Sexual Orientation Not on file documented as of this encounter Miscellaneous Notes * Cerner Conversion Note - Florentino ProviderMD - 03/04/2022 11:20 AM CDT UM Authorization Entered On: 03/04/2022 11:24 EDT Performed On: 03/04/2022 11:20 EDT by Mallory Sanchez, Wind Tunnel Mechanic Primary Insurance Authorization Authorization and Policy Numbers : Insurance 1 Health Plan: [facility] Policy Number: [id number] Authorization Number: Insurance Primary Name : [facility] Policy Number: [id number] Authorization Number: Authorization Status-Primary : Drg approved Reference Number-Primary : [id number] Authorized Service Begin Date-Primary : 03/01/2022 EDT Authorization Comments-Primary : Authorized per fax 03/02/22 @ 4030. Approved DRG admission. Next reivew due 03/10. -Hannah Castillo. Historical Authorization Comments-Primary : Comment 1: Rec vm from Hannah at [facility] on 1753 line on 03/02/22 at 8:42am She is req clinical be sent in Transf VM to [place] so she could follow up (SHERIF LYNCH, Bag Bleacher 03/04/2022 09:42) Comment 2: auth # per star notes, faxed clinicals via [employer] 03/01 (JOSEPH GUTIERREZ, RN-UTILIZATION MANAGEMENT REVIEW NON-EXEMPT 03/02/2022 11:28) Mallory Sanchez, Wind Tunnel Mechanic - 03/04/2022 11:20 EDT documented in this encounter Plan of Treatment Not on file documented as of this encounter Visit Diagnoses Not on filedocumented in this encounter
--- OUTSIDE RECORDS SUMMARY | 2025-02-21 13:36 | XMS_ITS | Encounter Summary ---
Author Organization [employer] [facility] Address [address] [place] [address] Care Team Providers Care Pulp Screen Operator Name Role Phone Unavailable Primary Care Provider Unavailabl e Encounter Details Date Type Department Care Team (Late st Contact Info) Description 2022 Transcribed Document [facility] [place] Family Medicine [facility] [place] [address] ProviderFlorentino MD [address] [place] [address] Social History Tobacco Use Types Packs/Day Years Used Date Smoking Tobacco: Never Assessed Comments Unknown Sex and Gender Information Value Date Recorded Sex Assigned at Not on file Legal Sex Female 1:44 PM CDT Gender Identity Not on file Sexual Orientation Not on file documented as of this encounter Miscellaneous Notes * Cerner Conversion Note - Florentino Lynne MD - 2022 7:52 AM CDT Patient: ALYSSA AZUL Age: 62 years Sex: Female : 1960 Associated Diagnoses: None Author: ELMA GARCÍA, [facility] Ms. Azul is a 62 yo female admitted for hypotension and hypergylcemia. She was recently admitted here for treatment of UTI (E. coli and PSA) and L buttock wound which she was being treated with merrem and discharged on cefuroxime. Pharmacy wa ssked to assist with vancomycin dosing, in the setting of CKD III. Medication: vancomycin Indication: ? sepsis/L buttock wound Goal trough: ~12-16mcg/ml Consulting MD: Geneva DECKER consult: pending Ht: 167cm Wt: 81kg NKDA Medications Include: cefEPIME + NaCl 0.9% 50 mL 1 Gram, IV Piggyback, Q8HInt Vancomycin IV Dosing by Pharmacy 1 Each, IV Piggyback, Weekly -vancomycin 1.5gm IV X1 @ 2359 Vitals Signs (last 24 hrs) Last Charted Minimum Maximum Temp 98.3 (APR 29 06:00) 98.3 (APR 29 06:00) 98.1 (APR 28 21:47) Mon HR 86 (APR 29 06:00) 74 (APR 28 22:00) 86 (APR 29 02:49) Periph HR 73 (APR 28 21:47) 73 (APR 28 21:47) 73 (APR 28 21:47) Resp Rate 18 (APR 29 06:00) 16 (APR 28 21:47) H 21 (APR 29 00:30) SBP 105 (APR 29 06:00) L 86 (APR 28 21:47) H 149 (APR 29 03:53) DBP L 52 (APR 29 06:00) L 41 (APR 28 21:47) 90 (APR 29 00:00) MAP 72 (APR 29 06:00) 69 (APR 29 04:43) 111 (APR 29 00:00) SpO2 96 (APR 29 06:00) 95 (APR 29 02:49) 98 (APR 28 21:47) Labs (Last four charted values) WBC 7.2 [...] (APR 28) ALB L 2.7 (APR 28) Creatinine Clearance (Current Encounter/Past 24 Hours) Creatinine Level 1.92 mg/dL MT 2022 07:02 Bun/Creatinine 21.3 MT 2022 07:02 Estimated Creatinine Clearance 28.44 mL/Min 2022 04:36 I/O: 2850/ New admission (Patient with CKD III) Cultures: 04/28 Urine - NG on gm stain (prelim) 04/28 Wound - NG on gm stain (prelim) 04/28 Blood - ordered Previous admissions: 04/08 Urine - E. coli and PSA (S) merrem/cefepime 04/09 L hip - MRSA, Klebsiella and citrobacter (S) cefepime Plan: Vancomycin 1.5gm (18.75mg/kg) IV X1 and then start [id number] (~12 mg/kg) IV daily tomorrow AM. Monitor closely for changes in renal function and culture results. Continue cefepime 1gm IV q8h based on current renal function. May adjust pending further changes. ID consult is pending. THank You, Elma García, Jose documented in this encounter Plan of Treatment Not on file documented as of this encounter Visit Diagnoses Not on filedocumented in this encounter
--- OUTSIDE RECORDS SUMMARY | 2025-02-21 13:36 | XMS_ITS | Encounter Summary ---
Author Organization [employer] [facility] Address [address] [place] [address] Care Team Providers Care Transformer Inspector Name Role Phone Unavailable Primary Care Provider Unavailabl e Encounter Details Date Type Department Care Team (Late st Contact Info) Description 02/24/2022 Transcribed Document [facility] [place] Family Medicine [address] [place] [address] ProviderFlorentino MD [address] [place] [address] Social History Tobacco Use Types Packs/Day Years Used Date Smoking Tobacco: Never Assessed Comments Unknown Sex and Gender Information Value Date Recorded Sex Assigned at Not on file Legal Sex Female 1:44 PM CDT Gender Identity Not on file Sexual Orientation Not on file documented as of this encounter Miscellaneous Notes * Cerner Conversion Note - Historical ProviderMD - 02/24/2022 5:00 AM CDT Chart Check - Review Order Profile Entered On: 02/24/2022 4:48 EDT Performed On: 02/24/2022 5:00 EDT by Junie Dorsey Rn Flex II Chart Check Powerplans Initiated/Discontinued as Appropriate : Yes All Active Orders Reviewed : Yes Junie Dorsey Rn Flex II - 02/24/2022 4:48 EDT documented in this encounter Plan of Treatment Not on file documented as of this encounter Visit Diagnoses Not on filedocumented in this encounter
--- OUTSIDE RECORDS SUMMARY | 2025-02-21 13:36 | XMS_ITS | Encounter Summary ---
Author Organization [employer] [facility] Address [address] [place] [address] Care Team Providers Care Force Adjustment Supervisor Name Role Phone Unavailable Primary Care Provider Unavailabl e Encounter Details Date Type Department Care Team (Late st Contact Info) Description 04/14/2022 Transcribed Document [facility] [place] Family Medicine [address] [place] [address] ProviderFlorentino MD [address] [place] [address] Social History Tobacco Use [...] Note - Florentino Lynne MD - 04/14/2022 9:00 AM CDT WOCN Inpatient Documentation Entered On: 04/14/2022 12:06 EDT Performed On: 04/14/2022 9:00 EDT by Edwina Fraire [id number]-Ahvngfgprdq Therapy WOCN Admission Date : Admit Date 04/08/2022 07:[address] : Diagnosis (11) Altered mental status Unspecified fall, initial encounter Altered mental status, unspecified Sepsis, unspecified organism Urinary tract infection, site not specified Acute kidney failure, unspecified Hyperkalemia Acute pancreatitis without necrosis or infection, unspecified Acidosis Sepsis, unspecified organism Sepsis, unspecified organism Reason for WOCN Visit : Assessment, ongoing, Dressing change Admitting Diagnosis ST : Reason for Admission sepsis, UTI, ARF, hyperkalemia, pancreatitis, meta WOCN Assessment Summary : Wound care team consulted to manage NPWT. Wound care team physician at bedside patient on HENRIETTA surface. removed old dressing and cleansed wound bed with saline wound wash, pat dry, measured at 11.0cmx6.5cmx2.0cm and prepped periwound skin with barrier film and draped placed medihoney to slough and 1 pc black foam and bridged to hip and draped. NPWT is operating at 120mmHg. If any changes to skin integrity please contact wound care dept. Edwina Fraire, EUQ-NAK-Apkxburrkhx Therapy - 04/14/2022 12:02 EDT documented in this encounter Plan of Treatment Not on file documented as of this encounter Visit Diagnoses Not on filedocumented in this encounter
--- OUTSIDE RECORDS SUMMARY | 2025-02-21 13:36 | XMS_ITS | Encounter Summary ---
Author Organization [employer] [facility] Address [address] [place] [address] Care Team Providers Care Plumber Maintenance Name Role Phone Unavailable Primary Care Provider Unavailabl e Encounter Details Date Type Department Care Team (Late st Contact Info) Description 02/24/2022 Transcribed Document [facility] [place] Family Medicine [address] [place] [address] ProviderFlorentino MD [address] [place] [address] Social History Tobacco Use Types Packs/Day Years Used Date Smoking Tobacco: Never Assessed Comments Unknown Sex and Gender Information Value Date Recorded Sex Assigned at Not on file Legal Sex Female 1:44 PM CDT Gender Identity Not on file Sexual Orientation Not on file documented as of this encounter Miscellaneous Notes * Cerner Conversion Note - Historical ProviderMD - 02/24/2022 9:00 AM CDT Spiritual Care Short Form Entered On: 02/24/2022 11:43 EDT Performed On: 02/24/2022 9:00 EDT by JOSEF GHOTRA Chaplain General Information, Spiritual Care Spiritual Care Referred by : Interdisciplinary Team rounds Reason for Visit : Initial JOSEF GHOTRA Chaplain - 02/24/2022 11:40 EDT Intervention/Comment/Summary Points : participated in MDRs; patient was seen on vent, sedated. No family present. JOSEF GHOTRA Chaplain - 02/24/2022 11:43 EDT documented in this encounter Plan of Treatment Not on file documented as of this encounter Visit Diagnoses Not on filedocumented in this encounter
--- OUTSIDE RECORDS SUMMARY | 2025-02-21 13:36 | XMS_ITS | Encounter Summary ---
Author Organization [employer] [facility] [employer] Address [address] [place] [address] Care Team Providers Care Hockey Instructor Name Role Phone Unavailable Primary Care Provider Unavailabl e Encounter Details Date Type Department Care Team (Late st Contact Info) Description 04/15/2022 Transcribed Document [facility] Family Medicine [address] [place] [address] ProviderFlorentino MD [address] [place] [address] Social History Tobacco Use Types Packs/Day Years Used Date Smoking Tobacco: Never Assessed Comments Unknown Sex and Gender Information Value Date Recorded Sex Assigned at Not on file Legal Sex Female 1:44 PM CDT Gender Identity Not on file Sexual Orientation Not on file documented as of this encounter Miscellaneous Notes * Cerner Conversion Note - Florentino Lynne MD - 04/15/2022 11:13 PM CDT Patient: ALYSSA AZUL Age: 61 years Sex: Female : 1960 Associated Diagnoses: None Author: HIGINIO AREVALO MD-INF Antibiotics: Zyvox, meropenem, micafungin. CC: Sacral wound Subjective: Patient moved out to floor slowly improving afebrile still with elevated blood pressure and generalized weakness. Objective: Vitals Signs (last 24 hrs) Last Charted Minimum Maximum Temp 97.4 (APR 15 22:17) 97.4 (APR 15:17) 98.5 (APR 15 01:00) Apical HR 72 (APR 15 06:00) 72 (APR 15 06:00) 72 (APR 15 06:00) Mon HR 90 (APR 15 22:17) 51 (APR 15 08:26) 96 (APR 15 00:55) Resp Rate 18 (APR 15 22:17) 16 (APR 15 00:55) 18 (APR 15 01:00) SBP H 154 (APR 15:17) 133 (APR 15 08:26) H 181 (APR 15 09:54) DBP 82 (APR 15 22:17) 77 (APR 15 01:00) H 93 (APR 15 09:54) MAP 113 (APR 15:17) 113 (APR 15:17) 124 (APR 15 09:54) SpO2 100 (APR 15:17) 97 (APR 15 01:00) 100 (APR 15 00:55) PE: General: alert, oriented HEENT: sclera white [...] Labs (Last four charted values) WBC 4.8 (APR 15) 6.0 (APR 14) 8.4 (APR 13) 7.3 (APR 12) HB L 7.6 (APR 15) L 7.2 (APR 14) L 7.4 (APR 13) L 7.1 (APR 12) HCT L 23.7 (APR 15) L 22.3 (APR 14) L 22.4 (APR 13) L 21.8 (APR 12) Plt L 106 (APR 15) L 104 (MAR 15) L 106 (APR 13) L 113 (APR 12) Na 141 (APR 15) 139 (MAR 15) 137 (APR 13) 136 (APR 12) K 3.9 (APR 15) L 3.2 (APR 14) L 3.1 (APR 13) 3.9 (APR 12) Cl 108 (APR 15) 108 (APR 14) 107 (APR 13) 106 (APR 12) CO2 28 (APR 15) 26 (MAR 15) 26 (APR 13) 23 (APR 12) BUN H 29 (APR 15) H 32 (MAR 15) H 26 (AUG 14) 15 (APR 12) Cr H 1.50 (MAR 16) H 1.60 (MAR 15) H 1.70 (APR 13) H 1.30 (APR 12) Glu R 106 (APR 15) H 163 (APR 14) H 222 (APR 13) H 245 (APR 12) Ca 8.6 (APR 15) 8.4 (MAR 15) L 8.2 (APR 13) L 8.2 (APR 12) Lactic 1.0 (APR 14) 1.7 (APR 13) 0.7 (APR 12) 0.6 (APR 10) PT 11.1 (APR 09) 10.5 (APR 08) INR 1.0 (APR 09) 1.0 (APR 08) AST 15 (APR 15) 13 (APR 14) 15 (APR 13) 20 (APR 12) ALT 16 (APR 15) 15 (APR 14) 16 (APR 13) 18 (APR 12) ALK P 59 (APR 15) 60 (APR 14) 64 (APR 13) 66 (APR 12) T Bili 0.4 (APR 15) 0.3 (APR 14) 0.3 (APR 13) 0.4 (APR 12) PTN [...] pending IMAGING: Radiology Results (Last 48 hours) [id number] -- 04/08/2022 07:53 CR Chest 1 Vw Portable (04/14/2022 05:49) Result: PORTABLE CHEST 04/14/2022 6:00 AM HISTORY: Acute shortness of breath.COMPARISON: April 13, 2022.FINDINGS: The heart is mildly enlarged. The mediastinum is unremarkable. Right lung is clear. There is scar and/or atelectasis within the leftlung base. There is no pneumothorax . Right and left IJ catheter tipsterminate in the superior vena cava.IMPRESSION: Left basilar scar and/or atelectasis.Images reviewed, interpreted, and dictated by Dr. Jaycob Wynne.Transcribed by KAUSHAL Maria have personally viewed, interpreted and dictated the examination. Ihluis fernando read and agree with the above final transcribed report. CR Chest 1 Vw Portable (04/15/2022 07:02) [...] alert fevers resolved and no crrt and food dehydrator operator stable. Platelets are stable continue on broad-spectrum coverage with improvement with Zosyn micafungin and meropenem RECOMMENDATIONS/PLANS: -Follow-up cultures, gram-negative rods in urine and wound culture at risk for multidrug-resistant organisms( Citrobacter, Ecoli, GNR, Dinora lusitaniae) -Continue Zyvox, meropenem, and micafungin, de-escalate once susceptibilities return, possible ESBL on gram-negative and has Pseudomonas we will continue meropenem and MRSA and wound culture continue Zyvox discontinue micafungin after 7 days -Monitor labs documented in this encounter Plan of Treatment Not on file documented as of this encounter Visit Diagnoses Not on filedocumented in this encounter
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
--- OUTSIDE RECORDS SUMMARY | 2025-02-21 13:36 | XMS_ITS | Encounter Summary ---
Author Organization [employer] [facility] Address [address] [place] [address] Care Team Providers Care Access Consultant Name Role Phone Unavailable Primary Care Provider Unavailabl e Encounter Details Date Type Department Care Team (Late st Contact Info) Description 04/14/2022 Transcribed Document [facility] [place] Family Medicine [address] [place] [address] ProviderFlorentino MD [address] [place] [address] Social History Tobacco Use Types Packs/Day Years Used Date Smoking Tobacco: Never Assessed Comments Unknown Sex and Gender Information Value Date Recorded Sex Assigned at Not on file Legal Sex Female 1:44 PM CDT Gender Identity Not on file Sexual Orientation Not on file documented as of this encounter Miscellaneous Notes * Cerner Conversion Note - Florentino Lynne MD - 04/14/2022 10:35 AM CDT CLINICAL DOCUMENTATION CLARIFICATION FORM: Please check appropriate box(es): [ x] 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 [ ] No pressure injury diagnosis [ ] Other diagnosis [ ] Unable to determine To be completed by CDI/Coding staff for physician review: Present Clinical Indicators - Signs / Symptoms / Labs Results and Location in Medical Record [ X] MDRPI to Left Nare DTPI 8/12 WOCN note: MDRPI to Left Nare DTPI [ X ] Oral intubation 8/9 H+P: Oral intubation Present Risk Factors Results and Location in Medical Record [ X ] Paralysis/ Paraplegia 8/9 H+P: history of paraplegia [ X ] Ongoing sacral decub 8/9 H+P: ongoing sacral decub with vac [ X ] Poor oral intake 8/9 H+P: per family has had very poor oral intake [ X ] Diabetes 8/9 H+P: History of diabetes Present Treatments Results and Location in Medical Record [ X ] Wound care consult 04/08 Orders: WOCN consult [ X ] Turn Q2 04/08 Orders Turn Q2 [ X ] Tube feeding 04/10 Orders: Tube Feeding Nepro goal rate 45ml/hr [ X ] Monitor for skin breakdown 04/08 Orders: Monitor for skin breakdown CDS/Gis Analyst Developer Signature: __Amaya Ervin RN___ Phone #: __[phone]__ PRESSURE ULCER STAGES Stage I: Erythema Stage II: Partial thickness Stage III: Full thickness Stage IV: Necrosis to muscle/bone This is a permanent part of the Medical Record documented in this encounter Plan of Treatment Not on file documented as of this encounter Visit Diagnoses Not on filedocumented in this encounter
--- OUTSIDE RECORDS SUMMARY | 2025-02-21 13:36 | XMS_ITS | Encounter Summary ---
Author Organization [facility] Address [address] [place] [address] Care Team Providers Care Care Clinician Name Role Phone Unavailable Primary Care Provider Unavailabl e Encounter Details Date Type Department Care Team (Late st Contact Info) Description 04/14/2022 Transcribed Document [facility] [place] [address] [place] [address] ProviderFlorentino MD [address] [place] [address] Social History Tobacco Use Types Packs/Day Years Used Date Smoking Tobacco: Never Assessed Comments Unknown Sex and Gender Information Value Date Recorded Sex Assigned at Not on file Legal Sex Female 1:44 PM CDT Gender Identity Not on file Sexual Orientation Not on file documented as of this encounter Miscellaneous Notes * Cerner Conversion Note - Florentino Lynne MD - 04/14/2022 10:40 AM CDT On Going Discharge Planning Entered On: 04/14/2022 10:45 EDT Performed On: 04/14/2022 10:40 EDT by SHERIF PAYNE, RN-Guitar TeacherAir Brake Adjuster Progress Note Discharge Arrangements : Patient Post-Acute Information Patient Name: ALYSSA AZUL Gender: Female : 60 Age: 61 Years No Post-Acute Placement(s) Listed No Post-Acute Service(s) Listed No [place] Referral(s) Listed Discharge Options Discussed with Patient : Home Health, [facility] Patient Discharge Goal : [facility] facility SHERIF PAYNE, RN-Guitar Teacher - 04/14/2022 10:40 EDT Narrative Progress Note Narrative Progress Note : HD# 3. elos: 5. rar: high acute hypoxic resp failure. severe sepsis: shock. campos/ckd. acute pancreatitis. diabetes. paraplegia. covid 19: negative 8-9. bipap 30%/ra. zyvox/merrem/micafungin iv. wound vac: left trochanter. corpak tube feeds. PT/OT: eob. ST: cleared for diet. no dialysis. APS following: Aimee Graceers, . left message with updates. dcp: family decline return to [place]. new referral [facility]. sent [employer]. spoke with bessie granda coordintor. they hope she will improve to dc home with them in [place]. DJ, son, legal next of kin: [phone] Divine, daughter in law: [phone] Historical Progress Note : HD# 3. elos: 5. rar: high acute hypoxic resp failure. severe sepsis: shock. campos/ckd. acute pancreatitis. diabetes. paraplegia. covid 19: negative 89. extubated 8-11. 02 4L nc. crrt. levophed gtt. bicarb gtt. zyvox/merrem/micafungin iv. wound vac: left trochanter. APS following: Aimee Payne, . dcp: family decline return to [place]. they hope she will improve to dc home with them in [place]. not ltac candidate at this time due to crrt. DJ, son, legal next of kin: [phone] Divine, daughter in law: [phone] SHERIF PAYNE, RN-Guitar Teacher - 04/11/22 09:13:49 late entry for this am. Aimee Payne, aps social services manager was on site this am. she spoke with Andrés, bedside rn, interviewed pt's son and spoke with Ms. azul who was awake on ventilator. she left number for claudia Groves sound to call her at Yaneli's convenience. provided medical records as requested. SHERIF PAYNE, RN-Guitar Teacher - 04/10/22 15:40:22 HD# 2. elos: 5. rar: high acute hypoxic resp failure. severe sepsis: shock. campos/ckd. acute pancreatitis. diabetes. paraplegia. covid 19: negative 8-9. following commads. mechanical ventilation. crrt. fentanyl gtt. insulin gtt. levophed gtt. evaluation Dr Abraham, stock roller. see her notes. no vaginal laceration. return call from Gayathri Pimentel, . she contacted lorrie Cohen for [place], [facility], [facility] with family concerns. [phone]. APS accepted case: [id number]. dcp: family decline return to [facility]. they hope she will improve to dc home with them in [place]. spoke with Monique Groves PA, edi attending. Andrés, bedside RN. SHERIF PAYNE, RN-Guitar Teacher - 04/10/22 09:41:02 received email from aps. they have accepted & will assign to social services manager. SHERIF PAYNE, RN-Guitar Teacher - 04/09/22 15:19:44 APS reported filed. [id number]. [facility] with [facility], Amber, manager community relations & Mary manager warehouse. SHERIF PAYNE, RN-Guitar Teacher - 04/09/22 12:07:07 SHERIF PAYNE, RN-Guitar Teacher - 04/14/2022 10:40 EDT documented in this encounter Plan of Treatment Not on file documented as of this encounter Visit Diagnoses Not on filedocumented in this encounter
--- OUTSIDE RECORDS SUMMARY | 2025-02-21 13:36 | XMS_ITS | Encounter Summary ---
Author Organization [employer] [facility] Address [address] [place] [address] Care Team Providers Care Loader Demolder Name Role Phone Unavailable Primary Care Provider Unavailabl e Encounter Details Date Type Department Care Team (Late st Contact Info) Description 02/24/2022 Transcribed Document [facility] Family Medicine [address] [place] [address] ProviderFlorentino MD [address] [place] [address] Social History Tobacco Use Types Packs/Day Years Used Date Smoking Tobacco: Never Assessed Comments Unknown Sex and Gender Information Value Date Recorded Sex Assigned at Not on file Legal Sex Female 1:44 PM CDT Gender Identity Not on file Sexual Orientation Not on file documented as of this encounter Miscellaneous Notes * Cerner Conversion Note - Florentino Lynne MD - 02/24/2022 9:37 AM CDT Nutrition Assessment Entered On: 02/24/2022 7:39 EDT Performed On: 02/24/2022 9:37 EDT by Elisa Onofre Non Emp Dietitian Nutrition Assessment Current Nutrition Regimen Comment : 02/24: Sceen - vent in ICU. Pt is a 61 yo F tx from OSH 02/22 w/ acute respiratory failure requiring intubation. Was on bipap prior. Pt has large decubitus ulcer on hip, s/p debridement. EN initiated yesterday, Vital AF ordered by Pulm however we do not stock AF here. Will adjust order to HP to provide adequate protein for wound healing. Dx: cardiopulmonary arrest, acute respiratory failure, sepsis/septic shock, ARF PMH: paraplegia, hyperlipidemia, DM, Labs: Glu 217, BUN 49, Cr 3.17, iCa 0.98, FSBG 200/184/166 Meds: glargine (10 U), SSI, PPI, abx Drips: precedex GI: LBM 6/25, +BS, +NGT Skin: ulcer L hip Diet: NPO (Was w/ 50% intakes x1 meal recorded) EN: Vital @10 mL/hr (unsure if HP or 1.5 running - bag states AF however hospital does not carry AF) Ht: 64 in Wt: 94.2 kg EMR Wt hx: no wt hx available per EMR BMI: 35.6 IBW/%IBW: 120#/172% Est Needs: 3866-7964 kcals (11-14 kcals/kg), ~109 g pro (>2 g pro/kg IBW) Elisa Onofre Non Emp Dietandres - 02/24/2022 9:35 EDT Nutrition Assessment Reason : Other: vent in ICU Elisa Onofre Non Emp Dietitian - 02/24/2022 9:37 EDT Nutrition Diagnoses Oral or Nutrition Support Intake : Inadequate oral intake Oral or Nutr Support Intake Related To : resp status/on vent Oral or Nutr Support Intake Evidenced by : NPO, need for EN Oral or Nutrition Support Intake Status : Active Nutrient Intake : Increased nutrient needs Nutrient Intake Related to : skin integrity Nutrient Intake As Evidenced by : Hip ulcer Nutrient Intake Status : Active Increased Nutrient Needs Comment : protein Elisa Onofre Non Emp Dietitian - 02/24/2022 9:35 EDT Nutrition Interventions Enteral/Parenteral Nutrition : Modify composition of enteral nutrition, Modify rate of enteral nutrition Elisa Onofre Non Emp Dietitian - 02/24/2022 9:35 EDT Monitoring/Evaluation Energy Intake : Total energy intake Enteral Nutrition Intake : Tube Feeding Tolerance Protein Intake : Total protein Weight Status : Weight Maintanence Gastrointestinal Function : Bowel Function Integumentary : Pressure Ulcer Status Glucose/Endocrine Profile : Glucose, fasting, Glucose, casual Elisa Onofre Non Emp Dietitian - 02/24/2022 9:35 EDT Nutrition Recommendations Dietitian Recommendations : 1. Adjust EN to Vital HP @20 mL/hr, advance 10 mL/hr q 4-6 hrs to goal @55 mL/hr (provides 1210 kcals, 106 g pro). FW per MD Goal: meet est needs 2. In the event pt is extubated, consider swallow eval prior to initiating PO diet. Rec 60g CHO diet, defer textures and consistencies to CABIN CLEANER. RD to monitor for need and acceptance of ONS at f/up if pt on diet Goal: safe swallow 3. Monitor BG, adjust insulin PRN Goal: 110-140 mg/dL 4. Weigh pt 1-2x/wk Goal: no significant changes in wt Nutritional risk: High Elisa Onofre, Angie Emp Dietitian - 02/24/2022 9:35 EDT Electronically signed by Sumaya [facility] Conversion District Attorney Cerner at 12/21/2022 5:02 PM CDT documented in this encounter Plan of Treatment Not on file documented as of this encounter Visit Diagnoses Not on filedocumented in this encounter
--- OUTSIDE RECORDS SUMMARY | 2025-02-21 13:36 | XMS_ITS | Encounter Summary ---
Author Organization [facility] Address [address] [place] [address] Care Team Providers Care Pilates Instructor Name Role Phone Unavailable Primary Care Provider Unavailabl e Encounter Details Date Type Department Care Team (Late st Contact Info) Description 02/24/2022 Transcribed Document [facility] [place] [facility] [place] [address] ProviderFlorentino MD [address] [place] [address] Social History Tobacco Use Types Packs/Day Years Used Date Smoking Tobacco: Never Assessed Comments Unknown Sex and Gender Information Value Date Recorded Sex Assigned at Not on file Legal Sex Female 1:44 PM CDT Gender Identity Not on file Sexual Orientation Not on file documented as of this encounter Miscellaneous Notes * Cerner Conversion Note - Florentino Lynne MD - 02/24/2022 8:17 AM CDT UM Authorization Entered On: 02/24/2022 8:17 EDT Performed On: 02/24/2022 8:17 EDT by ANA PACE RN-Utilization Review Primary Insurance Authorization Authorization and Policy Numbers : Insurance 1 Health Plan: [facility] Policy Number: [id number] Authorization Number: Insurance Primary Name : [facility] Authorization Status-Primary : Awaiting callback Authorized Service Begin Date-Primary : 02/21/2022 EDT Historical Authorization Comments-Primary : Comment 1: Uploaded clinicals via [employer] and Faxed to [facility]/ Reference # pending/ Awaiting callback. (Jelani Anne, radio repair teacher 02/22/2022 13:21) ANA PACE RN-Utilization Review - 02/24/2022 8:17 EDT Electronically signed by Sumaya [facility] Conversion Archivist [employer] Cerner at 12/21/2022 5:06 PM CDT documented in this encounter Plan of Treatment Not on file documented as of this encounter Visit Diagnoses Not on filedocumented in this encounter
--- OUTSIDE RECORDS SUMMARY | 2025-02-21 13:36 | XMS_ITS | Encounter Summary ---
Author Organization [employer] [facility] Address [address] [place] [address] Care Team Providers Care Ultrasonic Welding Machine Operator Name Role Phone Unavailable Primary Care Provider Unavailabl e Encounter Details Date Type Department Care Team (Late st Contact Info) Description 02/24/2022 Transcribed Document [facility] [place] Family Medicine [address] [place] [address] ProviderFlorentino MD [address] [place] [address] Social History Tobacco Use Types Packs/Day Years Used Date Smoking Tobacco: Never Assessed Comments Unknown Sex and Gender Information Value Date Recorded Sex Assigned at Not on file Legal Sex Female 1:44 PM CDT Gender Identity Not on file Sexual Orientation Not on file documented as of this encounter Miscellaneous Notes * Cerner Conversion Note - Historical ProviderMD - 02/24/2022 8:40 AM CDT Attempt to Treat, OT Entered On: 02/24/2022 8:40 EDT Performed On: 02/24/2022 8:40 EDT by ZAYRA FLEMING OTR/[place] Attempt to Treat Unable to Treat Due To : Patient on hold Inability to Treat Comment : pt on hold per RN ZAYRA FLEMING OTR/[place] - 02/24/2022 8:40 EDT Electronically signed by Bruce [employer] Conversion National Investigative Producer Cerner at 12/21/2022 5:09 PM CDT documented in this encounter Plan of Treatment Not on file documented as of this encounter Visit Diagnoses Not on filedocumented in this encounter
--- OUTSIDE RECORDS SUMMARY | 2025-02-21 13:36 | XMS_ITS | Encounter Summary ---
Author Organization [employer] Address [address] [place] [address] Care Team Providers Care Hauling Contractor Name Role Phone Unavailable Primary Care Provider Unavailabl e Encounter Details Date Type Department Care Team (Late st Contact Info) Description 04/14/2022 Transcribed Document [facility] [place] [address] [place] [address] ProviderFlorentino MD [address] [place] [address] Social History Tobacco Use Types Packs/Day Years Used Date Smoking Tobacco: Never Assessed Comments Unknown Sex and Gender Information Value Date Recorded Sex Assigned at Not on file Legal Sex Female 1:44 PM CDT Gender Identity Not on file Sexual Orientation Not on file documented as of this encounter Miscellaneous Notes * Cerner Conversion Note - Florentino Lynne MD - 04/14/2022 3:39 PM CDT Patient: ALYSSA AZUL Age: 61 years Sex: Female : 1960 Associated Diagnoses: None Author: VINNIE SWEENEY MD Subjective Seen and examined at bedside. No complaints. Blood pressure stable off pressors. CRRT off since 04/11. Monitor for renal recovery. No acute need for dialysis today.. Pending transfer to floor.. Discussed with her that possible catheter removal tomorrow if renal function remains stable.. Health Status Allergies: Allergic Reactions (Selected) No [...] mg, 300 mL, 300 mL/Hr, IV Piggyback, [id number] calcium gluconate: 1 Gram, 100 mL, 100 mL/Hr, IV Piggyback, Q1H, PRN: Other (See Comment) diphenhydrAMINE: 50 mg, IV Push, On-CALL, PRN: Anaphylaxis docusate sodium: 100 mg, Oral, BID ferrous sulfate: 325 mg, Feeding Tube, BID glucagon: 1 mg, IntraMuscular, Q15Min, PRN: Other (See Comment) glucose 4 g oral tablet, chewable: 16 Gram, 4 Tab, Chew, Q15Min, PRN: Other (See Comment) glucose 40% oral gel: 15 Gram, 37.5 mL, Oral, Q15Min, PRN: Other (See Comment) heparin: 5,000 Units, SubCutaneous, Q8H hydrALAZINE: 20 mg, IV Push, Q6H, PRN: Hypertension insulin glargine: 20 Units, SubCutaneous, BID insulin regular sliding scale: Scale C, SubCutaneous, Q6H lactobacillus acidophilus: 1 Cap, Oral, BID lansoprazole: 30 mg, Feeding Tube, Daily meropenem + Sodium Chloride 0.9% intravenous solution 50 mL: 500 mg, 16.67 mL/Hr, IV Piggyback, Q8HInt micafungin: 100 mg, 100 mL/Hr, IV Piggyback, [id number] phenylephrine injection 80 mg + NaCl 0.9% [...] mg 1 Cap, Oral, BID ferrous sulfate 300 mg/5 mL liq 325 mg 5.42 mL, Feeding Tube, BID heparin 5,000 units/1 mL inj 5,000 Units 1 mL, SubCutaneous, Q8H insulin glargine 1 unit/0.01 mL inj 20 Units 0.2 mL, SubCutaneous, BID insulin regular 1 unit/0.01 mL inj 3mL Scale C, SubCutaneous, Q6H lactobacillus acidophilus cap 1 Cap, Oral, BID lansoprazole 30 mg/10 mL susp 90 mL 30 mg 10 mL, Feeding Tube, Daily linezolid *PREMIX* 600 mg 300 mL, IV Piggyback, [id number] meropenem + NaCl 0.9% 50 mL 500 mg, IV Piggyback, Q8HInt micafungin sodium 100 mg, IV Piggyback, [id number] miconazole nitrate 2% pwd 85 g 1 [...] History of obstructive sleep apnea / IMO [id number] / Confirmed Diabetes / SNOMED CT [id number] / Confirmed, Active Problems (6) Chronic kidney disease (CKD), stage III (moderate) Diabetes History of obstructive sleep apnea Hyperlipidemia Hypertension Paraplegia Objective VS/Measurements Vital Signs/Vital Measures 04/14/2022 15:20 EDT Heart Rate Monitored 78 bpm Respiratory Rate 21 Breaths/Min HI Oxygen Saturation 97 % 04/14/2022 10:07 EDT Heart Rate Monitored 81 [...] Oxygen Saturation 100 % FiO2 30 % 04/13/2022 23:00 EDT Systolic Blood Pressure 120 mmHg Diastolic Blood Pressure 56 mmHg LOW Mean Arterial Pressure (MAP)-BMDI 78 Heart Rate Monitored 68 bpm Respiratory Rate 16 Breaths/Min Oxygen Saturation 100 % 04/13/2022 22:00 EDT Systolic Blood Pressure 138 mmHg Diastolic Blood Pressure 66 mmHg Mean Arterial Pressure (MAP)-BMDI 95 Heart Rate Monitored 66 bpm Respiratory Rate 13 Breaths/Min LOW Oxygen Saturation 96 % 04/13/2022 21:00 EDT Systolic Blood Pressure 109 mmHg Diastolic Blood Pressure 60 mmHg Mean Arterial Pressure (MAP)-BMDI 79 Heart Rate Monitored 67 bpm Respiratory Rate 20 Breaths/Min Oxygen Saturation 98 % 04/13/2022 20:00 EDT Systolic Blood Pressure 93 mmHg Diastolic Blood Pressure 55 mmHg LOW Mean Arterial Pressure (MAP)-BMDI 68 Temperature Source Oral Temperature Mode Fahrenheit Temperature, Fahrenheit 98.3 Deg F Clinical Temperature, C 36.8 Deg C Heart Rate Monitored 75 bpm Respiratory Rate 25 Breaths/Min HI Oxygen Saturation 98 % 04/13/2022 19:00 EDT Systolic Blood Pressure 122 mmHg Diastolic Blood Pressure 66 mmHg Mean Arterial Pressure (MAP)-BMDI 89 Heart Rate Monitored 73 bpm Respiratory Rate 20 Breaths/Min Oxygen Saturation 97 % 04/13/2022 18:00 EDT Systolic Blood Pressure 124 mmHg Diastolic Blood Pressure 65 mmHg Mean Arterial Pressure (MAP)-BMDI 89 Heart Rate Monitored 67 bpm Respiratory Rate 6 Breaths/Min LOW Oxygen Saturation 98 % 04/13/2022 17:00 EDT Systolic Blood Pressure 119 mmHg Diastolic Blood Pressure 63 mmHg Mean Arterial Pressure (MAP)-BMDI 86 Heart Rate Monitored 69 bpm Respiratory Rate 11 Breaths/Min LOW Oxygen Saturation 98 % 04/13/2022 16:00 EDT Systolic Blood Pressure 133 mmHg Diastolic Blood Pressure 99 mmHg HI Mean Arterial Pressure (MAP)-BMDI 110 Temperature Source Oral Temperature Mode Fahrenheit Temperature, Fahrenheit 97.6 Deg F Heart Rate Monitored 68 bpm Respiratory Rate 18 Breaths/Min Oxygen Saturation 99 % 04/13/2022 15:48 EDT Heart Rate Monitored 72 bpm Respiratory Rate 30 Breaths/Min HI Oxygen Saturation 98 % Oxygen Therapy Mode Room air 04/13/2022 15:00 EDT Systolic Blood Pressure 125 mmHg Diastolic Blood Pressure 85 mmHg Mean Arterial Pressure (MAP)-BMDI 100 Heart Rate Monitored 68 bpm Respiratory Rate 25 Breaths/Min HI Oxygen Saturation 99 % 04/13/2022 14:00 EDT Systolic Blood Pressure 140 mmHg Diastolic Blood Pressure 58 mmHg LOW Mean Arterial Pressure (MAP)-BMDI 90 Heart Rate Monitored 73 bpm Respiratory Rate 32 Breaths/Min HI Oxygen Saturation 98 % 04/13/2022 13:00 EDT Systolic Blood Pressure 133 mmHg Diastolic Blood Pressure 63 mmHg Mean Arterial Pressure (MAP)-BMDI 91 Heart Rate Monitored 66 bpm Respiratory Rate 19 Breaths/Min Oxygen Saturation 98 % 04/13/2022 12:00 EDT Systolic Blood Pressure 115 mmHg Diastolic Blood Pressure 68 mmHg Mean Arterial Pressure (MAP)-BMDI 87 Temperature Source Oral Temperature Mode Fahrenheit Temperature, Fahrenheit 98.6 Deg F Clinical Temperature, C 37 Deg C Heart Rate Monitored 78 bpm Respiratory Rate 31 Breaths/Min HI Oxygen Saturation 81 % LOW 04/13/2022 11:01 EDT Heart Rate Monitored 64 bpm Respiratory Rate 35 Breaths/Min HI Oxygen Saturation 94 % Oxygen Therapy Mode Room air 04/13/2022 11:00 EDT Systolic Blood Pressure 107 mmHg Diastolic Blood Pressure 58 mmHg LOW Mean Arterial Pressure (MAP)-BMDI 77 04/13/2022 10:00 EDT Systolic Blood Pressure 157 mmHg HI Diastolic Blood Pressure 70 mmHg Mean Arterial Pressure (MAP)-BMDI 100 Heart Rate Monitored 64 bpm Respiratory Rate 35 Breaths/Min HI Oxygen Saturation 94 % 04/13/2022 9:00 EDT Systolic Blood Pressure 87 mmHg LOW Diastolic Blood Pressure 52 mmHg LOW Mean Arterial Pressure (MAP)-BMDI 65 Heart Rate Monitored 61 bpm Respiratory Rate 22 Breaths/Min HI Oxygen Saturation 95 % 04/13/2022 8:00 EDT Systolic Blood Pressure 91 mmHg Diastolic Blood Pressure 55 mmHg LOW Mean Arterial Pressure (MAP)-BMDI 69 Temperature Source Oral Temperature Mode Fahrenheit Temperature, Fahrenheit 98 Deg F Clinical Temperature, C 36.7 Deg C Heart Rate Monitored 61 bpm Respiratory Rate 10 Breaths/Min LOW Oxygen Saturation 90 % LOW 04/13/2022 7:38 EDT Heart Rate Monitored 64 bpm Respiratory Rate 18 Breaths/Min Oxygen Saturation 94 % Oxygen Therapy Mode Room air 04/13/2022 7:00 EDT Systolic Blood Pressure 105 mmHg Diastolic Blood Pressure 58 mmHg LOW Mean Arterial Pressure (MAP)-BMDI 76 04/13/2022 6:00 EDT Systolic Blood Pressure 148 mmHg HI Diastolic Blood Pressure 65 mmHg Mean Arterial Pressure (MAP)-BMDI 93 Heart Rate Monitored 64 bpm Respiratory Rate 23 Breaths/Min HI Oxygen Saturation 92 % LOW 04/13/2022 5:00 EDT Systolic Blood Pressure 133 mmHg Diastolic Blood Pressure 66 mmHg Mean Arterial Pressure (MAP)-BMDI 94 Heart Rate Monitored 71 bpm Respiratory Rate 18 Breaths/Min Oxygen Saturation 93 % LOW Oxygen Therapy Mode Room air 04/13/2022 4:00 EDT Systolic Blood Pressure 113 mmHg Diastolic Blood Pressure 57 mmHg LOW Mean Arterial Pressure (MAP)-BMDI 82 Temperature Source Oral Temperature Mode Fahrenheit Temperature, Fahrenheit 98.3 Deg F Clinical Temperature, C 36.8 Deg C Heart Rate Monitored 58 bpm LOW Respiratory Rate 16 Breaths/Min Oxygen Saturation 100 % Oxygen Therapy Mode Nasal cannula Oxygen Flow Rate 2 Liter/Min 04/13/2022 3:00 EDT Systolic Blood Pressure 103 mmHg Diastolic Blood Pressure 57 mmHg LOW Mean Arterial Pressure (MAP)-BMDI 77 Heart Rate Monitored 55 bpm LOW Respiratory Rate 18 Breaths/Min Oxygen Saturation 100 % 04/13/2022 2:00 EDT Systolic Blood Pressure 122 mmHg Diastolic Blood Pressure 59 mmHg LOW Mean Arterial Pressure (MAP)-BMDI 85 Heart Rate Monitored 71 bpm Respiratory Rate 20 Breaths/Min Oxygen Saturation 99 % 04/13/2022 1:00 EDT Systolic Blood Pressure 103 mmHg Diastolic Blood Pressure 52 mmHg LOW Mean Arterial Pressure (MAP)-BMDI 74 Heart Rate Monitored 60 bpm Respiratory Rate 16 Breaths/Min Oxygen Saturation 100 % 04/13/2022 0:00 EDT Systolic Blood Pressure 127 mmHg Diastolic Blood Pressure 60 mmHg Mean Arterial Pressure (MAP)-BMDI 87 Temperature Source Axillary Temperature Mode Fahrenheit Temperature, Fahrenheit 98.1 Deg F Clinical Temperature, C 36.7 Deg C Heart Rate Monitored 55 bpm LOW Respiratory Rate 14 Breaths/Min Oxygen Saturation 100 % Oxygen Therapy Mode BiPAP FiO2 30 % , Measurements from flowsheet : Measurements 04/14/2022 5:00 EDT Height Source Estimated Height Entry Format [place] Height/Length, [place] (ft) 5 ft Height/Length [place] 6 Inch CLINICALHEIGHT 167.64 cm Routine Weight Source Bed scale Routine Weight Entry Format Metric Routine Weight, Kilograms 89.9 kg Routine Weight Calculation 89.9 kg Body Mass Index (BMI), Routine 31.99 kg/m2 Body Surface Area (BSA), Routine 1.99 m2 04/13/2022 5:00 EDT Height Source Estimated Height Entry Format [place] Height/Length, [place] (ft) 5 ft Height/Length [place] 6 Inch CLINICALHEIGHT 167.64 cm Routine Weight Source Bed scale Routine Weight Entry Format Metric Routine Weight, Kilograms 84.6 kg Routine Weight Calculation 84.6 kg Body Mass Index (BMI), Routine 30.1 kg/m2 Body Surface Area (BSA), Routine 1.94 m2 , Vitals Signs (last 24 hrs) Last Charted Minimum Maximum Temp 98.2 (APR 14 04:00) 97.6 (APR 13 16:00) 98.3 (APR 13 20:00) Mon HR 78 (APR 14:) 60 (APR 14 02:00) 87 (APR 14 04:00) Resp Rate H 21 (APR 14) L 6 (APR 13 18:00) H 47 (APR 14 09:00) SBP 124 (APR 14 10:00) L 85 (APR 14 05:00) H 155 (APR 14 02:00) DBP L 59 (APR 14 10:00) L 52 (APR 14 05:00) H 99 (APR 13 16:00) MAP 85 (APR 14 10:00) 64 (APR 14 05:00) 110 (APR 13 16:00) SpO2 97 (APR 14:) L 88 (APR 14 09:00) 100 (APR 13 23:00) Intake & Output Totals Last 24 Hours (7a-7a) Intake (52 Events) Medications (1068 mL) Enteral Additional Water Given (240 mL) Enteral Feeding Amount (960 mL) Output (2 Events) Valenzuela Catheter (750 mL) Input Total: 2268 mL Output Total: 750 mL Balance: 1518 mL General: Alert and oriented. HENT: Normocephalic, Atraumatic . Neck: Supple, Non-tender, No jugular venous distention. Respiratory: Symmetrical chest wall expansion, Clear to auscultation . Cardiovascular: Normal rate, Trace edema. Gastrointestinal: Soft, Non-tender, Non-distended. Genitourinary: + Urostomy. . Integumentary: Warm, Dry, [place]. Neurologic: Alert, Oriented. Results Review Labs (Last four charted values) WBC 6.0 (APR 14) 8.4 (APR 13) 7.3 (APR 12) 8.2 (APR 11) HB L 7.2 (APR 14) L 7.4 (MAR 14) L 7.1 (APR 12) L 7.0 (APR 11) HCT L 22.3 (APR 14) L 22.4 (APR 13) L 21.8 (APR 12) L 21.4 (APR 11) Plt L 104 (MAR 15) L 106 (MAR 14) L 113 (APR 12) L 111 (APR 11) Na 139 (APR 14) 137 (APR 13) 136 (APR 12) 136 (APR 12) K L 3.2 (APR 14) L 3.1 (APR 13) 3.9 (APR 12) 3.8 (APR 12) Cl 108 (APR 14) 107 (APR 13) 106 (APR 12) 107 (APR 12) CO2 26 (APR 14) 26 (APR 13) 23 (APR 12) 23 (APR 12) BUN H 32 (APR 14) H 26 (APR 13) 15 (APR 12) 13 (APR 12) Cr H 1.60 (APR 14) H 1.70 (APR 13) H 1.30 (APR 12) H 1.10 (APR 12) Glu R H 163 (APR 14) H 222 (APR 13) H 245 (APR 12) H 186 (APR 12) Ca 8.4 (APR 14) L 8.2 (APR 13) L 8.2 (APR 12) L 7.8 (APR 12) Lactic 1.0 (APR 14) 1.7 (APR 13) 0.7 (APR 12) 0.6 (APR 10) PT 11.1 (APR 09) 10.5 (APR 08) INR 1.0 (APR 09) 1.0 (APR 08) AST 13 (APR 14) 15 (MAR 14) 20 (APR 12) 26 (APR 11) ALT 15 (APR 14) 16 (APR 13) 18 (APR 12) 18 (APR 11) ALK P 60 (APR 14) 64 (APR 13) 66 (APR 12) 71 (APR 11) T Bili 0.3 (APR 14) 0.3 (APR 13) 0.4 (APR 12) 0.6 (APR 11) PTN L 5.0 (APR 14) L 5.3 (APR 13) L 5.6 (APR 12) L 5.9 (APR 11) ALB L 2.0 (APR 14) L 2.1 (APR 13) L 2.3 (APR 12) L 2.2 (APR 12) Lipase H 919 (APR 11) H 638 (APR 10) H 1965 (APR 09) H 1603 (APR 08) Impression and Plan 1- JAVIER on CKD stage III - Likely prerenal azotemia/ ATN secondary to septic shock. [Initially started on CRRT on admission; off CRRT since 812] 2- CKD 3: Baseline creatinine around 1.6. Patient follows with nephrology. Solitary kidney 3- Sepsis 4- Hypernatremia- improved. 5- Anemia : S/p blood transfusion on 04/11. 6- Severe Hyperkalemia - Resolved with CRRT. 7- Severe Metabolic acidosis - Resolved. 8- Paraplegic 9- UTI - hydronephrosis [Urology evaluated; chronic hydro; no need for intervention] Plan: -Renal function stable around baseline now (baseline Cr 1.6 mg/dl) ; Encourage oral hydration. Monitor for renal recovery. No need for dialysis today.. If renal function remains stable tomorrow we will remove temporary dialysis catheter. - Hypokalemia: supplemented - please supplement as needed. - Avoid nephrotoxic agents. - Adjust meds for GFR . - Monitor H/H and transfuse for Hgb less than 7.0 High risk and complexity patient. Discuss with RN at bedside. documented in this encounter Plan of Treatment Not on file documented as of this encounter Visit Diagnoses Not on filedocumented in this encounter
--- OUTSIDE RECORDS SUMMARY | 2025-02-21 13:36 | XMS_ITS | Encounter Summary ---
Author Organization [employer] Address [address] [place] [address] Care Team Providers Care Linotypist Name Role Phone Unavailable Primary Care Provider Unavailabl e Encounter Details Date Type Department Care Team (Late st Contact Info) Description 2022 Transcribed Document [facility] [place] [facility] [place] [address] ProviderFlorentino MD [facility] [place] [address] Social History Tobacco Use Types Packs/Day Years Used Date Smoking Tobacco: Never Assessed Comments Unknown Sex and Gender Information Value Date Recorded Sex Assigned at Not on file Legal Sex Female 1:44 PM CDT Gender Identity Not on file Sexual Orientation Not on file documented as of this encounter Miscellaneous Notes * Cerner Conversion Note - Florentino Lynne MD - 2022 1:32 AM CDT Pain Assessment Entered On: 05/09/2022 17:36 EDT Performed On: 05/09/2022 12:25 EDT by Maria G Patel RN Intervention Information: acetaminophen-HYDROcodone Performed by Kate Kevin RN-PATIENT CARE BEDSIDE NON-EXEMPT on 05/09/2022 11:25:00 EDT acetaminophen-HYDROcodone,1Tab Oral,Pain (Moderate 4-6) Pain Assessment Pain Assessment : Follow-up assessment Pain Scale Goal : 2 Pain Scale Used : 0-10 Scale Maria G Patel RN - 05/09/2022 17:36 EDT Pain Scale Intensity : 0 Maria G Patel RN - 05/09/2022 17:36 EDT Image 4 - Images currently included in the form version of this document have not been included in the text rendition version of the form. documented in this encounter Plan of Treatment Not on file documented as of this encounter Visit Diagnoses Not on filedocumented in this encounter
--- OUTSIDE RECORDS SUMMARY | 2025-02-21 13:36 | XMS_ITS | Encounter Summary ---
Author Organization [email or web address] [facility] [employer] Address [address] [place] [address] Care Team Providers Care Medical Legal Investigator Name Role Phone Unavailable Primary Care Provider Unavailabl e Encounter Details Date Type Department Care Team (Late st Contact Info) Description 2022 Transcribed Document [facility] [place] [address] [place] [address] ProviderFlorentino MD [address] [place] [address] Social History Tobacco Use Types Packs/Day Years Used Date Smoking Tobacco: Never Assessed Comments Unknown Sex and Gender Information Value Date Recorded Sex Assigned at Not on file Legal Sex Female 1:44 PM CDT Gender Identity Not on file Sexual Orientation Not on file documented as of this encounter Miscellaneous Notes * Cerner Conversion Note - Historical ProviderMD - 2022 5:00 PM CDT Chart Check - Review Order Profile Entered On: 2022 16:30 EDT Performed On: 2022 17:00 EDT by Kayla Chi Non Emp RN Chart Check Powerplans Initiated/Discontinued as Appropriate : Yes All Active Orders Reviewed : Yes Kayla Chi Non Emp RN - 2022 16:30 EDT documented in this encounter Plan of Treatment Not on file documented as of this encounter Visit Diagnoses Not on filedocumented in this encounter
--- OUTSIDE RECORDS SUMMARY | 2025-02-21 13:36 | XMS_ITS | Encounter Summary ---
Author Organization [employer] Address [address] [place] [address] Care Team Providers Care Public Information Officer Name Role Phone Unavailable Primary Care Provider Unavailabl e Encounter Details Date Type Department Care Team (Late st Contact Info) Description 03/04/[address] [facility] [place] [address] [place] [address] ProviderFlorentino MD [address] [place] [address] Social History Tobacco Use Types Packs/Day Years Used Date Smoking Tobacco: Never Assessed Comments Unknown Sex and Gender Information Value Date Recorded Sex Assigned at Not on file Legal Sex Female 1:44 PM CDT Gender Identity Not on file Sexual Orientation Not on file documented as of this encounter Miscellaneous Notes * Cerner Conversion Note - Historical ProviderMD - 03/04/2022 10:32 AM CDT Spiritual Care Short Form Entered On: 03/14/2022 16:46 EDT Performed On: 03/04/2022 10:32 EDT by MARYBEL ROCHE General Information, Spiritual Care Intervention/Comment/Summary Points : Routine visit MARYBEL ROCHE - 03/14/2022 16:46 EDT documented in this encounter Plan of Treatment Not on file documented as of this encounter Visit Diagnoses Not on filedocumented in this encounter
--- OUTSIDE RECORDS SUMMARY | 2025-02-21 13:36 | XMS_ITS | Encounter Summary ---
Author Organization [employer] [facility] [employer] Address [address] [place] [address] Care Team Providers Care Gate Operator Name Role Phone Unavailable Primary Care Provider Unavailabl e Encounter Details Date Type Department Care Team (Late st Contact Info) Description 2022 Transcribed Document [facility] [place] [address] [place] [address] ProviderFlorentino MD [address] [place] [address] Social History Tobacco Use Types Packs/Day Years Used Date Smoking Tobacco: Never Assessed Comments Unknown Sex and Gender Information Value Date Recorded Sex Assigned at Not on file Legal Sex Female 1:44 PM CDT Gender Identity Not on file Sexual Orientation Not on file documented as of this encounter Miscellaneous Notes * Cerner Conversion Note - Florentino Lynne MD - 2022 4:11 AM CDT Meds to Bed Enrollment Entered On: 2022 10:20 EDT Performed On: 2022 4:11 EDT by Ross Bradley Curtain Inspector Cert Lead Meds to Bed Enrollment Patient Enrollment Decision: : Yes/enroll in meds to bed program Ross Bradley Curtain Inspector Cert Lead - 2022 10:20 EDT documented in this encounter Plan of Treatment Not on file documented as of this encounter Visit Diagnoses Not on filedocumented in this encounter
--- OUTSIDE RECORDS SUMMARY | 2025-02-21 13:36 | XMS_ITS | Encounter Summary ---
Author Organization [employer] Address [address] [place] [address] Care Team Providers Care J2Ee Application Developer Name Role Phone Unavailable Primary Care Provider Unavailabl e Encounter Details Date Type Department Care Team (Late st Contact Info) Description 12/18/2022 Transcribed Document [facility] [place] [address] [place] [address] ProviderFlorentino MD [address] [place] [address] Social History Tobacco Use Types Packs/Day Years Used Date Smoking Tobacco: Never Assessed Comments Unknown Sex and Gender Information Value Date Recorded Sex Assigned at Not on file Legal Sex Female 1:44 PM CDT Gender Identity Not on file Sexual Orientation Not on file documented as of this encounter Miscellaneous Notes * Cerner Conversion Note - Historical ProviderMD - 10/19/2022 12:56 PM ROVING CAN TENDER COVID-19 Vaccination Entered On: 03/03/2022 11:50 EDT Performed On: 03/03/2022 8:30 EDT by Adonay Montero Rn COVID-19 Vaccination Patient Vaccinated for COVID-19 : Unable to obtain Adonay Montero Rn - 03/03/2022 11:50 EDT Electronically signed by Bruce Shell Conversion Software Applications Architect Cerner at 12/21/2022 5:00 PM CDT documented in this encounter Plan of Treatment Not on file documented as of this encounter Visit Diagnoses Not on filedocumented in this encounter
--- OUTSIDE RECORDS SUMMARY | 2025-02-21 13:36 | XMS_ITS | Encounter Summary ---
Author Organization [employer] Address [address] [place] [address] Care Team Providers Care Dog Handler Or Trainer Name Role Phone Unavailable Primary Care Provider Unavailabl e Encounter Details Date Type Department Care Team (Late st Contact Info) Description 05/13/2022 Transcribed Document [facility] [place] Medicine [facility] [place] [address] ProviderFlorentino MD [address] [place] [address] Social History Tobacco Use Types Packs/Day Years Used Date Smoking Tobacco: Never Assessed Comments Unknown Sex and Gender Information Value Date Recorded Sex Assigned at Not on file Legal Sex Female 1:44 PM CDT Gender Identity Not on file Sexual Orientation Not on file documented as of this encounter Miscellaneous Notes * Cerner Conversion Note - Florentino Lynne MD - 05/13/2022 1:15 PM CDT UM Authorization Entered On: 05/13/2022 13:15 EDT Performed On: 05/13/2022 13:15 EDT by SHERIF LYNCH, Movers Primary Insurance Authorization Authorization and Policy Numbers : Insurance 1 [facility] Policy Number: [id number] Authorization Number: IP DENIED SENT-APPEALS Insurance 2 Health Plan: MEDICAID [facility] Policy Number: [id number] Authorization Number: Insurance Primary Name : [facility] Policy Number: [id number] Authorization Status-Primary : Denied Reference Number-Primary : [id number] Authorized Service Begin Date-Primary : 2022 EDT Historical Authorization Comments-Primary : Comment 1: Sent to appeals for readmission. (SARAH MORALES RN 05/13/2022 08:29) Comment 2: Per Marina the readmission determination will be reached when claim is received (SARAH MORALES RN 05/12/2022 16:39) Comment 3: Left VM for Marina with [facility] inquiring if admit will be linked to previous admit 04/08-04/26 auth # [id number]. Per fax states denied due to being linked readmit. (SARAH MORALES RN 05/01/2022 10:02) Comment 4: Rec faxed Denial from [facility] 04/30/22 placed in tray on [employer] desk (SHERIF LYNCH, Movers 04/30/2022 12:52) Comment 5: Faxed initial clinicals via [employer]. (SARAH MORALES RN 2022 11:46) SHERIF LYNCH, Movers - 05/13/2022 13:15 EDT documented in this encounter Plan of Treatment Not on file documented as of this encounter Visit Diagnoses Not on filedocumented in this encounter
--- OUTSIDE RECORDS SUMMARY | 2025-02-21 13:36 | XMS_ITS | Encounter Summary ---
Author Organization [employer] Address [address] [place] [address] Care Team Providers Care Creative Manager Name Role Phone Unavailable Primary Care Provider Unavailabl e Encounter Details Date Type Department Care Team (Late st Contact Info) Description 03/04/2022 Transcribed Document [facility] [place] [address] [place] [address] ProviderFlorentino MD [address] [place] [address] Social History Tobacco Use Types Packs/Day Years Used Date Smoking Tobacco: Never Assessed Comments Unknown Sex and Gender Information Value Date Recorded Sex Assigned at Not on file Legal Sex Female 1:44 PM CDT Gender Identity Not on file Sexual Orientation Not on file documented as of this encounter Miscellaneous Notes * Cerner Conversion Note - Historical ProviderMD - 03/04/2022 2:00 AM CDT Commercial Construction Project Manager Details Entered On: 03/04/2022 7:56 EDT Performed On: 03/04/2022 2:00 EDT by Izzy Chowdhury Non Emp [...] : Yes Patient Needs Meds Crushed/Liquid : Yes Meds Administered Via Tube : Yes Izzy Chowdhury Non Emp RN - 03/04/2022 7:56 EDT documented in this encounter Plan of Treatment Not on file documented as of this encounter Visit Diagnoses Not on filedocumented in this encounter
--- OUTSIDE RECORDS SUMMARY | 2025-02-21 13:36 | XMS_ITS | Encounter Summary ---
Author Organization [employer] Address [address] [place] [address] Care Team Providers Care Investment Accountant Name Role Phone Unavailable Primary Care Provider Unavailabl e Encounter Details Date Type Department Care Team (Late st Contact Info) Description 2022 Transcribed Document [facility] [place] Medicine [address] [place] [address] ProviderFlorentino MD [address] [place] [address] Social History Tobacco Use Types Packs/Day Years Used Date Smoking Tobacco: Never Assessed Comments Unknown Sex and Gender Information Value Date Recorded Sex Assigned at Not on file Legal Sex Female 1:44 PM CDT Gender Identity Not on file Sexual Orientation Not on file documented as of this encounter Miscellaneous Notes * Cerner Conversion Note - Historical ProviderMD - 2022 1:02 AM CDT Consult Phone Call Documentation Entered On: 2022 8:17 EDT Performed On: 2022 1:02 EDT by TORI WHITFIELD Phone Call for Consults Consult, Additional Information : called ID on 2022 TORI WHITFIELD - 2022 8:17 EDT documented in this encounter Plan of Treatment Not on file documented as of this encounter Visit Diagnoses Not on filedocumented in this encounter
--- OUTSIDE RECORDS SUMMARY | 2025-02-21 13:36 | XMS_ITS | Encounter Summary ---
Author Organization [employer] Address [address] [place] [address] Care Team Providers Care Media Services Director Name Role Phone Unavailable Primary Care Provider Unavailabl e Encounter Details Date Type Department Care Team (Late st Contact Info) Description 04/14/2022 Transcribed Document [facility] [place] [address] [place] [address] ProviderFlorentino MD [address] [place] [address] Social History Tobacco Use Types Packs/Day Years Used Date Smoking Tobacco: Never Assessed Comments Unknown Sex and Gender Information Value Date Recorded Sex Assigned at Not on file Legal Sex Female 1:44 PM CDT Gender Identity Not on file Sexual Orientation Not on file documented as of this encounter Miscellaneous Notes * Cerner Conversion Note - Florentino Lynne MD - 04/14/2022 8:11 AM CDT Patient: ALYSSA AZUL Age: 61 years Sex: Female : 1960 Associated Diagnoses: None Author: KATHRYN RIOS MD Referring physician: Dr. Weiss Reason for consult: Critical care management CC: Unable to obtain Basic Information HPI: The patient is a 61 year old female with past medical history significant for paraplegia, CKD, DM, HTN, and multiple recent hospitalizations, who presented to our faciltiy on 04/08 with chief complaints of increasing confusion and fall at residential facility. Per documentation, the patient is a known paraplegic but was reported to somehow experience a fall with abrasion noted to knee. Upon arrival to our facility, the patient was found to have profound metabolic acidosis. Remarkable lab work includes potassium of 8.7, creatinine of 6.2, anion gap of 25, ammonia of 124, lactic acid of 5.3, lipase of 1,603, and WBC of 31.3. The hyperkalemia was treated with IV insulin, D50, calcium gluconate, and albuterol. She has received a total of 3 amps of sodium bicarb for her acidosis. She also received 3.5L of normal saline bolus when code sepsis was initiated. Merrem was given at that time. Of note, the patient was recently admitted to our facility from 03/01/2022 - 03/20/2022 during which time she was treated for severe sepsis with shock, and klebsiella pneumonia. She was discharged from our facility to residential facility. On 04/08, pulmonary is being asked to see the patient for ventilator/critical care management after she required intubation in the ED. Past Medical History Paraplegia, since age 8 CKD, stage III T2DM HTN Multiple cardiac arrests Left hip wound s/p multiple debridement Klebsiella pneumonia Past Surgical History Trach/PEG in 2009, per son Unilateral nephrectomy Urostomy Social History Unable to obtain Family History Unable to obtain 04/09: Patient remain critically ill in ICU setting. Intubated on mechanical ventilation. AC 26, TV 400, PEEP 5, FiO2 40%. ABG shows improving metabolic acidosis and now with respiratory alkalosis. Sedated on fentanyl and propofol. She moves to stimulation but does not open eyes or follow commands. RASS -3. Per RN, with decreased sedation, patient bites on ET tube. She has episodes of bradycardia with HR dropping to the 30s. Hemodynamically unstable on Levophed. No fever. Improving leukocytosis. Remains on bicarb gtt and D5W @75mL/hr. On CRRT. Hyperkalemia and hypernatremia has resolved. Lactic acid trending down. Lipase increasing. Remains on insulin gtt. Hemoglobin dropped to 6.8. 04/10: Patient remains intubated on mechanical ventilation. Off all sedation. She is alert and nods appropriately to questions, RASS -1 to 0. Hemodynamically unstable on low dose Levophed. Still bradycardic with HR in 40s. No fever. Increasing leukocytosis. Cr stable. On CRRT. Remains NPO. Insulin gtt off. Lactic acid is normal. Ammonia level normal. +BM. 04/11: Extubated yesterday, alert and pleasant, follows commands and converses appropriately. Voice is weak, cough is weak. On 4L NC, 95%, wore NIPPV from MN to 6 am this morning. CXR slightly improved. Weaning Levophed off per RN. BP is stable. HGB 6.4 this AM, receiving 1 unit prbc. Continues on CRRT, Creatinine 0.60. some urine output. WBC decreased to 10 from 16.6 04/12: Bed in chair mode, alert and oriented. Very pleasant and following commands. Voice is much improved. On 2L NC, wore NIPPV overnight. Using IS/FVD. CXR improved. Hemodynamically improved, vasopressors off since yesterday, now hypertensive. CRRT off since yesterday evening. Cr 1.30, some urine output increased. WBC 7.3, no fevers. On tube feeds via corpak. BM yesterday X 3 04/13: Sitting up in bed, with some complaints of neck pain and Left ear fullness. Left ear examined by Infectious Disease. Alert and follows all commands. On Room air, 97%. Good cough effort. Cxr reviewed. BP improved. Cr 1.70, good UOP. WBC 8.4, no fevers. Tolerating tube feeds. BM yesterday. 04/14: Patient seen and examined on room air. She is awake and alert and currently denies shortness of air, chest pain, and nausea/vomiting. She states she does have productive cough at times. Was able to tolerate wearing bipap overnight per patient report. She is hemodynamically stable and afebrile. Serum creatinine today 1.6. WBC 6.0. Platelets today 104. She is tolerating TF via corpak and is having BMs appropriately. She has had 750ml of output for overall today balance of +1.5L. ICU day: 7 Vent day:3 Central line: 04/08 Review of Systems Constitutional: Weakness, Fatigue. Eye: No visual disturbances. Ear/Nose/Mouth/Throat: Ear pain: Left, fullness , Improved today. Respiratory: Cough, Sputum production, No shortness of breath, No hemoptysis, No wheezing. Cardiovascular: No chest pain. Gastrointestinal: No nausea, No vomiting, No diarrhea. Musculoskeletal: Neck pain. Integumentary: No rash. Neurologic: Alert and oriented X4. Psychiatric: No anxiety. Health Status Allergies: Allergic Reactions (Selected) No [...] 0.9% for drip 250 mL: TITRATE, IntraVENous Pepcid: 20 mg, IV Push, Daily Tylenol: 650 mg, Oral, Q6H, PRN: Temperature Zofran: 4 mg, IV Push, Q6H, PRN: Nausea Zyvox: 600 mg, 300 mL, 300 mL/Hr, IV Piggyback, [id number] calcium gluconate: 1 Gram, 100 mL, 100 mL/Hr, IV Piggyback, Q1H, PRN: Other (See Comment) diphenhydrAMINE: 50 mg, IV Push, On-CALL, PRN: Anaphylaxis ferrous sulfate: 325 mg, Feeding Tube, BID [...] Q6H lactobacillus acidophilus: 1 Cap, Oral, BID meropenem + Sodium Chloride 0.9% intravenous solution 50 mL: 500 mg, 16.67 mL/Hr, IV Piggyback, [id number] micafungin: 100 mg, 100 mL/Hr, IV Piggyback, [id number] phenylephrine injection 80 mg + NaCl 0.9% [...] Tab, Oral, At Bedtime, 0 Refill(s), Medications (26) Active Scheduled: (10) famotidine 20 mg/2 mL inj 20 mg 2 mL, IV Push, Daily ferrous sulfate 300 mg/5 mL liq 325 mg 5.42 mL, Feeding Tube, BID heparin 5,000 units/1 mL inj 5,000 Units 1 mL, SubCutaneous, Q8H insulin glargine 1 unit/0.01 mL inj 20 Units 0.2 mL, SubCutaneous, BID insulin regular 1 unit/0.01 mL inj 3mL Scale C, SubCutaneous, Q6H lactobacillus acidophilus cap 1 Cap, Oral, BID linezolid *PREMIX* 600 mg 300 mL, IV Piggyback, [id number] meropenem + NaCl 0.9% 50 mL 500 mg, IV Piggyback, [id number] micafungin sodium 100 mg, IV Piggyback, [id number] miconazole nitrate 2% pwd 85 g 1 Application, Topical, BID Continuous: (3) NORepinephrine 16 mg + NaCl 0.9% T ITRATE 250 mL 250 mL, IntraVENous phenylephrine 80 mg + NaCl 0.9% T ITRATE 250 mL 250 mL, IntraVENous vasopressin 40 Units [0.03 Units/min] + Dextrose 5% in Water TITRATE 100 mL 100 mL, IntraVENous, 4.5 mL/Hr PRN: (13) acetaminophen 325 mg tab 650 mg 2 [...] 2 mL, IV Push, Q6H Problem list: All Problems Paraplegia / SNOMED CT 311398945 / Confirmed Hypertension / SNOMED CT 0030863008 / Confirmed Hyperlipidemia / SNOMED CT 32665377 / Confirmed History of obstructive sleep apnea / IMO [id number] / Confirmed Diabetes / SNOMED CT 044074438 / Confirmed Chronic kidney disease (CKD), stage III (moderate) / SNOMED CT 2898768727 / Confirmed, Active Problems (6) Chronic kidney disease (CKD), stage III (moderate) Diabetes History of obstructive sleep apnea Hyperlipidemia Hypertension Paraplegia Physical Examination VS/Measurements Vitals Signs (last 24 hrs) Last Charted Minimum Maximum Temp 98.2 (APR 14 04:00) 97.6 (APR 13 16:00) 98.6 (APR 13 12:00) Mon HR 70 (APR 14 07:00) 60 (APR 14 02:00) 87 (APR 14 04:00) Resp Rate 20 (APR 14 07:00) L 6 (APR 13 18:00) H 35 (APR 13 10:00) SBP 113 (APR 14 07:00) L 85 (APR 14 05:00) H 157 (APR 13 10:00) DBP 62 (APR 14 07:00) L 52 (APR 13 09:00) H 99 (APR 13 16:00) MAP 82 (APR 14 07:00) 64 (APR 14 05:00) 110 (APR 13 16:00) SpO2 97 (APR 14 07:00) L 81 (APR 13 12:00) 100 (APR 13 23:00) General: On Room air, 97% follows commands, (paraplegic). Very pleasant and converses appropriately. Eye: Pupils are equal, round and reactive to light, Normal conjunctiva. HENT: Normocephalic, Oral mucosa is moist. Neck: Supple, No lymphadenopathy. Respiratory: Breath sounds are equal, Symmetrical chest wall expansion. Cardiovascular: Normal rate, Regular rhythm. Gastrointestinal: Soft, Non-distended, Normal bowel sounds. Support: Gastric tube ( Nasal ). Genitourinary: Support: Urostomy. Musculoskeletal: No swelling, No deformity. Integumentary: Warm, Dry, Left gluteal wound vac present. Neurologic: Alert, Oriented, Alert, pleasant, smiling, no neuro deficits noted, paraplegic at baseline. . Psychiatric: Cooperative, Appropriate mood & affect. Review / Management Results review: Labs (Last four charted values) WBC 6.0 (APR 14) 8.4 (APR 13) 7.3 (APR 12) 8.2 (APR 11) HB L 7.2 (APR 14) L 7.4 (APR 13) L 7.1 (APR 12) L 7.0 (APR 11) HCT L 22.3 (AUG 15) L 22.4 (MAR 14) L 21.8 (APR 12) L 21.4 (APR 11) Plt L 104 (MAR 15) L 106 (MAR 14) L 113 (APR 12) L 111 (APR 11) Na 139 (MAR 15) 137 (MAR 14) 136 (APR 12) 136 (APR 12) K L 3.2 (APR 14) L 3.1 (APR 13) 3.9 (APR 12) 3.8 (APR 12) Cl 108 (APR 14) 107 (MAR 14) 106 (APR 12) 107 (APR 12) CO2 [...] (APR 08) AST 13 (APR 14) 15 (APR 13) 20 (APR 12) 26 (APR 11) ALT 15 (APR 14) 16 (APR 13) 18 (APR 12) 18 (APR 11) ALK P 60 (APR 14) 64 (MAR 14) 66 (APR 12) 71 (APR 11) T Bili 0.3 (APR 14) 0.3 (APR 13) 0.4 (APR 12) 0.6 (APR 11) PTN L 5.0 (APR 14) L 5.3 (MAR 14) L 5.6 (APR 12) L 5.9 (APR 11) ALB L 2.0 (APR 14) L 2.1 (APR 13) L 2.3 (APR 12) L 2.2 (APR 12) Lipase H 919 (APR 11) H 638 (AUG 11) H 1965 (APR 09) H 1603 (APR 08) . APR 08 13:20 H 147 H 115 C 82 / H 295 H 5.8 L 5 H 5.40 \ APR 14 02:30 \ L 7.2 / 6.0 L 104 / L 22.3 \ Blood Gases (Current Encounter/Past 24 Hours) No Blood Gas Results Found (Past 24 Hours) Radiology Results (Last 48 hours) [id number] -- 04/08/2022 07:53 CR Chest 1 Vw Portable (04/13/2022 06:42) Result: PORTABLE CHEST HISTORY: Shortness of breath.COMPARISON: PCXR from the previous day.FINDINGS: The heart is stable in size. There is a stable left pleuraleffusion. The right lung is clear. There is no pneumothorax. The supportdevices are in good position.IMPRESSION: Stable left pleural effusion. Images reviewed, interpreted, and dictated by Dr. Maria Esther Espinoza.Transcribed by Yunier Perez PA-C.I have personally viewed, interpreted and dictated the examination. Ihave read and agree with the above final transcribed report. CR Chest 1 Vw Portable (04/14/2022 05:49) [...] and dictated by Dr. Jaycob Wynne.Transcribed by Ethan Marsh PA-C ECHO done on 03/09/22: Impression: Normal sized left ventricle. Moderate left ventricular hypertrophy. Visually estimated ejection fraction 55% +/- 5%. Normal left ventricular systolic function. Indeterminate diastolic function. No significant valvular heart disease. Impression and Plan Pulmonary Acute hypoxic respiratory failure, on MV.--Extubated 04/10 CT Chest 03/01: Extensive right perihilar and bibasilar consolidations with bilateral pleural effusions and paratracheal reactive adenopathy. Concern for underlying mass not excluded. No known history of chronic lung diseases Smoker status not known Klebsiella pneumonia on 03/01/2022 Negative for RSV, COVID-19, and flu A/B CT chest 04/08: trace right effusion Cardiovascular Severe sepsis with shock, source is wound infection versus urine UTI. Now improved Echocardiogram done on 03/09/2022. EF 55%. Normal systolic function. Moderate LVH. Indeterminate diastolic function. No significant valvular heart disease. ECHO 04/08: EF 60%, normal systolic function, indeterminate diastolic function, mild aortic regurgitation ID Severe sepsis with shock with source likely wound vs urine-improving. Leukocytosis, resolved Recent Klebsiella pneumonia Left gluteal decub ulcer requiring previous debridement, now with wound vac Wound culture with Citrobacter koseri, MRSA Urine culture with pseudomonas, E. coli Neuro Currently awake and alert Baseline paraplegia CT head: no acute intracranial process Renal Acute kidney injury. Non oliguric type. On CRRT this admission. Now not requiring CKD III, baseline creatinine 1.6 per documentation Severe metabolic acidosis with elevated anion gap, improving Electrolyte disturbances Severe hyperkalemia, resolved, now with hypokalemia Lactic acidosis, improved CT abdomen: mild right hydronephrosis and hydroureter GI Acute pancreatitis. CT abdomen noted, no biliary dilation. Hyperammonemia, improved Endocrine T2DM with hyperglycemia. Glycemic control Hematology/Oncology Leukocytosis Anemia Thrombocytopenia, ongoing Metformin toxicity. Acute metabolic encephalopathy-improving. Musculoskeletal Paraplegic Unable to move legs and right upper extremities Plan Extubated on 04/10, Currently on Room Air, 97% NIPPV at HS Hemodynamics: Now stable, off pressors Norvasc 5mg daily, Bisoprolol (home med) not used due to Bradycardia; HR 60 at present Antibiotics per ID: Merrem, Zyvox, and Micafungin Pneumonia PCR negative Sputum culture pending-unable to collect MRSA negative, Blood cultures--NGTD Urine culture pseudomonas, E. coli Wound culture Citrobacter koseri, MRSA Nephrology following On CRRT --stopped on 04/11; Will assess daily HD needs Nutrition: TF @40mL/hr via corpak Speech evaluation--plans for FEES today Replace electrolytes as needed--Replace potassium and phosphorus Monitor hemoglobin. Transfuse for hemoglobin <7.0. --S/P 1 unit PRBC on 04/11--- Guiac stool with next BM Lactobacillus Glycemic control: Target Glucose 140-180 mg/dL Lantus 20BID and SSI Q6h Prophylaxis: Pepcid, Heparin SQ. Change Pepcid to Prevacid today PT/OT I have personally evaluated the patient; history and review of systems, physical examination, laboratory studies and radiology data. I have actively directed the medical care, formulated diagnosis and plan and discussed it with our team. Chest imaging were reviewed independent of the radiologist report Prognosis: guarded. Keep in the ICU. Overall improving Full code Discussed with the patient and her family at bedside Complex case Thank you for the consultation we will sign off. documented in this encounter Plan of Treatment Not on file documented as of this encounter Visit Diagnoses Not on filedocumented in this encounter
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
--- OUTSIDE RECORDS SUMMARY | 2025-02-21 13:36 | XMS_ITS | Encounter Summary ---
Author Organization [employer] Address [address] [place] [id number] Care Team Providers Care Nursing Consultant Name Role Phone Unavailable Primary Care Provider Unavailabl e Encounter Details Date Type Department Care Team (Late st Contact Info) Description 02/25/2022 Transcribed Document [facility] [place] Medicine [address] [place] [address] ProviderFlorentino MD [address] [place] [address] Social History Tobacco Use Types Packs/Day Years Used Date Smoking Tobacco: Never Assessed Comments Unknown Sex and Gender Information Value Date Recorded Sex Assigned at Not on file Legal Sex Female 1:44 PM CDT Gender Identity Not on file Sexual Orientation Not on file documented as of this encounter Miscellaneous Notes * Cerner Conversion Note - Florentino Lynne MD - 02/25/2022 8:54 AM CDT Patient: ALYSSA AZUL Age: 61 years Sex: Female : 1960 Associated Diagnoses: None Author: TORRES MARTINEZ MD-NEP Subjective Nonverbal. Objective VS/Measurements Vitals Signs (last 24 hrs) Last Charted Minimum Maximum Temp 99.4 (FEB 25 04:00) 98.1 (FEB 24 12:00) H 100.1 (FEB 24 16:00) Apical HR 94 (FEB 25 04:19) 91 (FEB 24 16:38) 94 (FEB 25 04:19) Mon HR 83 (FEB 25 08:40) 79 (FEB 24 20:00) 101 (FEB 25 01:00) Resp Rate L 13 (FEB 25 08:40) L 13 (FEB 25 08:40) H 62 (FEB 24 20:28) SBP 113 (FEB 25 07:00) 108 (FEB 25 06:30) H 219 (FEB 24 22:15) DBP 60 (FEB 25 07:00) L 55 (FEB 25 06:30) H 93 (FEB 24 16:30) MAP 80 (FEB 25 07:00) 75 (FEB 25 06:30) 134 (FEB 24 16:30) SpO2 L 93 (FEB 25 08:40) L 92 (FEB 25 08:38) 100 (FEB 24 13:30) Intake & Output Totals Last 24 Hours (7a-7a) Intake (63 Events) Continuous Infusions (33.552 mL) Medications (175.36 mL) Enteral Additional Water Given (1400 mL) Enteral Feeding Amount (330 mL) Output (10 Events) Ostomy Output, Genitourinary: (1045 mL) Urine Voided (Volume) (1975 mL) Input Total: 1938.912 mL Output Total: 3020 mL Balance: -1081.088 mL Physical exam contact may be limited to avoid COVID-19 exposure General: No acute distress, WD elderly WF. Eye: Pupils are equal, round and reactive to light, Normal conjunctiva. HENT: Normocephalic, + ET tube. Neck: Supple, No jugular venous distention. Respiratory: Respirations are non-labored, Symmetrical chest wall expansion, On vent. Cardiovascular: Trace edema. Gastrointestinal: Non-distended. Genitourinary: + Valenzuela. Integumentary: Warm, Dry, No rash. Neurologic: Not alert, Not oriented. Psychiatric: Not cooperative, Not appropriate mood & affect. Results Review Labs (Last four charted values) WBC H 10.4 (FEB 25) 8.9 (FEB 24) 6.5 (FEB 23) 8.9 (JAN 25) HB L 8.3 (FEB 25) L 7.5 (FEB 24) L 7.9 (FEB 23) L 6.6 (FEB 23) HCT L 25.5 (FEB 25) L 23.1 (FEB 24) L 24.0 (CATRACHITA 26) L 20.5 (CATRACHITA 26) Plt 246 (CATRACHITA 28) 217 (CATRACHITA 27) 215 (CATRACHITA 26) 218 (CATRACHITA 25) Na 146 (FEB 25) 143 (JAN 27) 146 (JAN 26) H 150 (FEB 23) K L 3.4 (FEB 25) 3.7 (FEB 24) L 3.3 (FEB 23) C 2.6 (FEB 23) Cl 110 (FEB 25) 110 (FEB 24) H 114 (FEB 23) H 118 (FEB 23) CO2 L 20 (FEB 25) L 20 (FEB 24) 21 (FEB 23) L 20 (FEB 23) BUN H 48 (FEB 25) H 49 (FEB 24) H 51 (FEB [...] 1.9 (FEB 23) L 1.9 (FEB 21) Impression and Plan ARF: Creatinine chito elevated 3.3 with continued nonoliguric urine output and negative volume after additional Lasix yesterday.. Patient thought to have prerenal azotemia due to hypotension which may be evolving to ATN along with possible Vanco toxicity.. Previously FeNa borderline at 1.3% with a low Fe urea 25%. Vancomycin level >50 for least 48 hours. For now continue supportive care. Optimize volume. Continue to hold further vancomycin for now. Monitor strict I's and O's. Hopefully renal function will recover quickly. No emergent indication for dialysis at this time. Sepsis: Patient with pneumonia and hip ulceration. Patient on antibiotics. May have component of cardiogenic shock with post op cardiac arrest. Albumin quite low. Remains off pressors. Support blood pressure with albumin as needed. Hypernatremia: Sodium back up to 146.. All fluids hypotonic. Free water as needed. Hypokalemia: Back down overnight with Lasix yesterday along with insulin drip.. Continue to replace as needed. Magnesium replaced to>2.0 to assist with renal potassium recovery.. Metabolic acidosis: Stable. Chloride levels improved. Initially bicarb levels quite low with renal failure along with chloride overload.. Patient was getting IV bicarb. pH went up to 7.5 yesterday with low PCO2 on ventilator. IV bicarb on hold. Patient getting p.o. bicarb. Adjust vent as needed.. Continue to avoid chloride loading. All fluids nonchlorinated as able. Anemia: post transfusion for hemoglobin 6.8. Transfuse as needed for Hgb <7 Volume: Additional negative volume overnight with diuretics.. Monitor for euvolemia. Continue perfusion support. Decubitus ulcer post debridement Pneumonia: On antibiotics Respiratory failure: Remains on ventilator. High risk and complexity critically ill patient. documented in this encounter Plan of Treatment Not on file documented as of this encounter Visit Diagnoses Not on filedocumented in this encounter
--- OUTSIDE RECORDS SUMMARY | 2025-02-21 13:36 | XMS_ITS | Encounter Summary ---
Author Organization [employer] Address [address] [place] [address] Care Team Providers Care Qa Automation Architect Name Role Phone Unavailable Primary Care Provider Unavailabl e Encounter Details Date Type Department Care Team (Late st Contact Info) Description 04/30/2022 Transcribed Document [facility] [place] Family Medicine [address] [place] [address] ProviderFlorentino MD [address] [place] [address] Social History Tobacco Use Types Packs/Day Years Used Date Smoking Tobacco: Never Assessed Comments Unknown Sex and Gender Information Value Date Recorded Sex Assigned at Not on file Legal Sex Female 1:44 PM CDT Gender Identity Not on file Sexual Orientation Not on file documented as of this encounter Miscellaneous Notes * Cerner Conversion Note - Historical ProviderMD - 04/30/2022 2:00 AM CDT Blind Installer Details Entered On: 04/30/2022 4:33 EDT Performed On: 04/30/2022 2:00 EDT by Marvin Burden, RN Order Details Transport Mode Order Detail : Cart Isolation Precautions Order Detail : Standard Precautions Order Detail : 0 IV Order Detail : 1 Oxygen Order Detail : 0 Nurse Collect Order Detail : 0 Lift/Transfer : Maximal assist Central Line Order Detail : No Room Service : Appropriate Arterial Line : No Patient Needs Meds Crushed/Liquid : No Marvin Burden, RN - 04/30/2022 4:32 EDT Electronically signed by Bruce Shell Conversion Sanitation Worker Hosing Machinery Mykel at 12/21/2022 5:00 PM CDT documented in this encounter Plan of Treatment Not on file documented as of this encounter Visit Diagnoses Not on filedocumented in this encounter
--- OUTSIDE RECORDS SUMMARY | 2025-02-21 13:36 | XMS_ITS | Encounter Summary ---
Author Organization [employer] Address [address] [place] [address] Care Team Providers Care Visitor Services Assistant Name Role Phone Unavailable Primary Care Provider Unavailabl e Encounter Details Date Type Department Care Team (Late st Contact Info) Description 04/14/2022 Transcribed Document [facility] [place] Family Medicine [address] [place] [address] ProviderFlorentino MD [address] [place] [address] Social History Tobacco Use Types Packs/Day Years Used Date Smoking Tobacco: Never Assessed Comments Unknown Sex and Gender Information Value Date Recorded Sex Assigned at Not on file Legal Sex Female 1:44 PM CDT Gender Identity Not on file Sexual Orientation Not on file documented as of this encounter Miscellaneous Notes * Cerner Conversion Note - Florentino Lynne MD - 04/14/2022 1:14 PM CDT Patient: ALYSSA AZUL Age: 61 Years Sex: Female : 1960 Subjective Doing well this morning. Passed swallow study and is going to be able to eat, she is excited. Wound care nurse changing dressing today on her gluteal area; says the site is looking much better Diarrhea has slowed down some Creatinine trending down still but BUN up some. 750cc UOP documented Vital Signs Oxygen Settings (Last) Oxygen Therapy Mode: Room air (04/14/22 10:07:00) Oxygen Flow Rate: 2 Liter/Min (04/13/22 04:00:00) Intake & Output Totals Last 24 Hours (7a-7a) Input Total: 2268 mL Output Total: 750 mL Balance: 1518 mL Physical Exam General: Alert, obese, no acute distress Neurologic: Moves all upper extremities spontaneously, oriented X3, paraplegia Lungs: Clear to auscultation, non-labored respiration, no crackles, no wheeze Heart: Normal rate, regular rhythm, no murmur, 1+ LE edema Abdomen: Soft, non-tender, non-distended, normal bowel sounds Musculoskeletal: No obvious deformity, no tenderness Skin: warm, dry, no rashes or lesions Psychiatric: Cooperative, appropriate mood and affect Assessment/Plan #Severe septic shock (POA)?resolved hypothermia, lactic acidosis, [...] may start imodium if no improvement Disposition: Still hospitalized due to - doing much better. Started on diet. Can move out of ICU. Cont abx per ID At d/c will likely need - abx, oxygen, PT Tentatively at d/c will be going to - SNF vs home with family Expected d/c date - possibly in next 2-3 days if other specialists sign off *Summary of hospitalization and events up to this point/preliminary discharge note to be found under hospital course under provider view tab VTE Prophylaxis - Medical Heparin 5,000 Units, SubCutaneous, Inj, Q8H, Routine, Start 04/08/22 14:00:00 EDT, 04/08/22 10:47:00 EDT (DILMA BROWN) Medications calcium gluconate, 1 Gram= 100 mL, IV Piggyback, Q1H, PRN Desenex AF 2% topical powder, 1 Application, Topical, BID Dextrose 50% injection, 25 Gram= 50 mL, IV Push, Q15Min, PRN Dextrose 50% injection, 25 Gram= 50 mL, IV Push, Q15Min, PRN Dextrose 50% injection, 25 Gram= 50 mL, IV Push, Q15Min, PRN Dextrose 50% injection, 12.5 Gram= 25 mL, IV Push, Q15Min, PRN diphenhydrAMINE, 50 mg= 1 mL, IV Push, On-CALL, PRN docusate sodium, 100 mg= 1 Cap, Oral, BID EPINEPHrine, 1 mg= 1 mL, IntraMuscular, On-CALL, PRN ferrous sulfate, 325 mg= 5.42 mL, Feeding Tube, BID glucagon, 1 mg= 1 mL, IntraMuscular, Q15Min, PRN glucose 4 g oral tablet, chewable, 16 Gram= 4 Tab, Chew, Q15Min, PRN glucose 40% oral gel, 15 Gram= 37.5 mL, Oral, Q15Min, PRN heparin, 5000 Units= 1 mL, SubCutaneous, Q8H hydrALAZINE, 20 mg= 1 mL, IV Push, Q6H, PRN insulin glargine, 20 Units= 0.2 mL, SubCutaneous, BID insulin regular sliding scale, Scale C, SubCutaneous, Q6H lactobacillus acidophilus, 1 Cap, Oral, BID lansoprazole, 30 mg= 10 mL, Feeding Tube, Daily meropenem + Sodium Chloride 0.9% intravenous solution 50 mL micafungin NORepinephrine injection 16 mg + NaCl 0.9% for drip 250 mL phenylephrine injection 80 mg + NaCl 0.9% for drip 250 mL Senokot, 8.6 mg= 1 Tab, Oral, Daily, PRN Tylenol, 650 mg= 2 Tab, Oral, Q6H, PRN vasopressin injection 40 Units [0.03 Units/min] + Dextrose 5% in Water intravenous solution 100 mL Zofran, 4 mg= 2 mL, IV Push, Q6H, PRN Zyvox, 600 mg= 300 mL, IV Piggyback, [id number] Lab Results Test Name Test Result Date/Time Sodium Level 139 mmol/L 04/14/2022 02:30 EDT Potassium Level 3.2 mmol/L (Low) 04/14/2022 02:30 EDT Chloride Level 108 mmol/L 04/14/2022 02:30 EDT Carbon Dioxide Level 26 mmol/L 04/14/2022 02:30 EDT Anion Gap 8 (Low) 04/14/2022 02:30 EDT Glucose Level 163 mg/dL (High) 04/14/2022 02:30 EDT Blood Urea Nitrogen 32 mg/dL (High) 04/14/2022 02:30 EDT Creatinine Level 1.60 mg/dL (High) 04/14/2022 02:30 EDT eGFR 40 mL/min/1.73m2 (Low) 04/14/2022 02:30 EDT eGFR NonAfrican 33 mL/min/1.73m2 (Low) 04/14/2022 02:30 EDT Bun/Creatinine 20.0 04/14/2022 02:30 EDT Calcium Level 8.4 mg/dL 04/14/2022 02:30 EDT Protein Total 5.0 Gram/dL (Low) 04/14/2022 02:30 EDT Albumin Level 2.0 Gram/dL (Low) 04/14/2022 02:30 EDT Globulin 3.0 Gram/dL 04/14/2022 02:30 EDT A/G Ratio 0.7 (Low) 04/14/2022 02:30 EDT Bilirubin Total 0.3 mg/dL 04/14/2022 02:30 EDT Alk Phos 60 Units/Liter 04/14/2022 02:30 EDT AST 13 Units/Liter 04/14/2022 02:30 EDT ALT 15 Units/Liter 04/14/2022 02:30 EDT Magnesium Level 2.0 mg/dL 04/14/2022 02:30 EDT Phosphorus 2.8 mg/dL 04/14/2022 02:30 EDT Device Comment 1 Notified Nurse RBV 04/14/2022 11:38 EDT Device Comment 1 Notified Nurse RBV 04/14/2022 05:05 EDT Device Comment 1 Notified Nurse RBV 04/13/2022 23:37 EDT Device Comment 1 Notified Nurse RBV 04/13/2022 18:22 EDT Glucose POC2 152 mg/dL (High) 04/14/2022 11:38 EDT Glucose POC2 159 mg/dL (High) 04/14/2022 05:05 EDT Glucose POC2 149 mg/dL (High) 04/13/2022 23:37 EDT Glucose POC2 134 mg/dL (High) 04/13/2022 18:22 EDT Lactic Acid Level 1.0 mmol/L 04/14/2022 02:30 EDT Calcium Ionized 1.29 mmol/L 04/14/2022 02:30 EDT WBC 6.0 K/uL 04/14/2022 02:30 EDT RBC 2.53 Million/uL (Low) 04/14/2022 02:30 EDT Hgb 7.2 g/dL (Low) 04/14/2022 02:30 EDT Hct 22.3 % (Low) 04/14/2022 02:30 EDT MCV 88.1 fL 04/14/2022 02:30 EDT MCH 28.5 pg 04/14/2022 02:30 EDT MCHC 32.3 Gram/dL 04/14/2022 02:30 EDT Platelet Count 104 K/uL (Low) 04/14/2022 02:30 EDT MPV 9.7 fL 04/14/2022 02:30 EDT RDW 15.6 % (High) 04/14/2022 02:30 EDT Neut % 69.8 % 04/14/2022 02:30 EDT Neut # 4.15 K/uL 04/14/2022 02:30 EDT Lymph % 19.0 % (Low) 04/14/2022 02:30 EDT Lymph # 1.13 x10(3)/uL 04/14/2022 02:30 EDT Randall % 6.4 % 04/14/2022 02:30 EDT Randall # 0.38 K/uL 04/14/2022 02:30 EDT Eos % 3.7 % 04/14/2022 02:30 EDT Eos # 0.22 x10(3)/uL 04/14/2022 02:30 EDT Baso % 0.3 % 04/14/2022 02:30 EDT Baso # 0.02 x10(3)/uL 04/14/2022 02:30 EDT Slide Review No 04/14/2022 02:30 EDT IG# 0.05 x10(3)/uL 04/14/2022 02:30 EDT IG% 0.80 % (High) 04/14/2022 02:30 EDT Procalcitonin <0.25 ng/mL 04/14/2022 02:30 EDT documented in this encounter Plan of Treatment Not on file documented as of this encounter Visit Diagnoses Not on filedocumented in this encounter
--- OUTSIDE RECORDS SUMMARY | 2025-02-21 13:36 | XMS_ITS | Encounter Summary ---
Author Organization [employer] Address [address] [place] [id number] Care Team Providers Care Russian Language Professor Name Role Phone Unavailable Primary Care Provider Unavailabl e Encounter Details Date Type Department Care Team (Late st Contact Info) Description 02/25/2022 Transcribed Document [facility] [place] [address] [place] [address] ProviderFlorentino MD [address] [place] [address] Social History Tobacco Use Types Packs/Day Years Used Date Smoking Tobacco: Never Assessed Comments Unknown Sex and Gender Information Value Date Recorded Sex Assigned at Not on file Legal Sex Female 1:44 PM CDT Gender Identity Not on file Sexual Orientation Not on file documented as of this encounter Miscellaneous Notes * Cerner Conversion Note - Historical ProviderMD - 02/25/2022 10:28 AM CDT Attempt to Treat, PT Entered On: 02/25/2022 10:30 EDT Performed On: 02/25/2022 10:28 EDT by PRAKASH RÍOS, PT Attempt to Treat Unable to Treat Due To : Patient on hold PRAKASH RÍOS, PT - 02/25/2022 10:28 EDT Inability to Treat Comment : Pt is still intubated and sedated. Pt is not appropriate for skilled PT at this time. RN requested to D/C order until pt is appropriate. RN will request new orders from MD when pt is able to participate PRAKASH RÍOS, PT - 02/25/2022 10:49 EDT Notification : RN and PT discussed PRKAASH RÍOS PT - 02/25/2022 10:28 EDT documented in this encounter Plan of Treatment Not on file documented as of this encounter Visit Diagnoses Not on filedocumented in this encounter
--- OUTSIDE RECORDS SUMMARY | 2025-02-21 13:36 | XMS_ITS | Encounter Summary ---
Author Organization [employer] Address [address] [place] [address] Care Team Providers Care Customer Experience Retail Clerk Name Role Phone Unavailable Primary Care Provider Unavailabl e Encounter Details Date Type Department Care Team (Late st Contact Info) Description 2022 Transcribed Document [facility] [place] Family Medicine [facility] [place] [address] ProviderFlorentino MD [address] [place] [address] Social History Tobacco Use Types Packs/Day Years Used Date Smoking Tobacco: Never Assessed Comments Unknown Sex and Gender Information Value Date Recorded Sex Assigned at Not on file Legal Sex Female 1:44 PM CDT Gender Identity Not on file Sexual Orientation Not on file documented as of this encounter Miscellaneous Notes * Cerner Conversion Note - Florentino Lynne MD - 2022 2:23 AM CDT Patient: ALYSSA AZUL Age: 62 Years Sex: Female : 1960 Chief Complaint pt presents to ER c/o hypotension, elevated glucose. states she was recently admitted for sepsis. has wound to L buttock w/ wound vac. bp 86/41 on arrival. Primary Care Provider JACQUELIN LOPEZ DR History of Present Illness 62-year-old female with a history of hypertension, paraplegia, left buttocks wound with wound VAC from recent admission, recurrent UTIs, recent pseudomonal and E. coli UTI presents [facility] emergency department in [place] complaining of dizziness and feeling cold/chills that [...] admit her for infectious disease to evaluate. Review of Systems A 14 point review of systems was obtained and is noncontributory except as noted above. All past medical, social and family history reviewed. Vital Signs T: 36.7 ??C HR: 82(Monitored) RR: 21 BP: 121/69 SpO2: 97% HT: 167.64 cm WT: 79.55 kg BMI: 28.8 Oxygen Settings (Last) Oxygen Therapy Mode: Room air (04/29/22 01:30:00) Physical Exam Based on new provisions and guidance offered in setting of COVID 19 outbreak and in order to preserve personal protective equipment in accordance with the flexibilities announced by [facility] limited examination is performed. General: Mildly ill appearing, not diaphoretic, mild acute distress Head: Normocephalic, atraumatic Eyes: No ocular discharge, no scleral injection, no icterus Ears: Normal external auricles Nose: No rhinorrhea, no epistaxis Throat: Not examined, no difficulty swallowing Pulm: No apparent respiratory distress Cardio: Normal rate, regular rhythm, no peripheral edema GI: non-distended Neuro: Alert and oriented, cn2-12 grossly intact, strength 5/5 bilaterally. Psych: Cooperative Skin: No jaundice Assessment/Plan -Suspected UTI procalcitonin less than 0.25. Recent UTI with Pseudomonas and E. coli, both sensitive to cefepime. -No leukocytosis, afebrile, heart rate less than 90 and her respiratory rate of 20. Does not technically meet sepsis criteria on admission -Start cefepime. Consult ID for antibiotic recommendations. -Has sacral/left buttocks wound with wound VAC, with procalcitonin not suggestive of acute infection and antibiotics covering urinary source, will defer additional antibiotics at this time -IV hydration for lactic acidosis. -CKD 3. Monitor renal function -Blood pressures improved with IV fluids. Continuous cardiac monitoring - Parenteral analgesics for severe pain. Oral analgesics for mild to moderate pain. - Continue to monitor electrolytes and replete as appropriate - Pt high risk for vte, UFH for vte ppx. - Continue medications for chronic problems - Pt will require inpatient admission for >48 hrs for work up and stabilization of their condition - NSOC: Remains admitted - seen 2022 01:18:49 I have personally reviewed pertinent laboratory, ekg and imaging results, as well as documentation in the patient's emr. Laboratory and imaging orders per the above plan have been addressed, see orders below. Home medications have been reviewed. Patient's case, assessment and plan have been discussed on this date with ED provider. Code Status Start: 04/29/22 1:02:00 EDT, Full Code, Continuous Order 1. Hypotension 2. Suspected UTI 3. Diabetes 4. Chronic kidney disease (CKD), stage III (moderate) 5. Decubitus ulcer, buttock Orders: acetaminophen, 650 mg, Oral, Tab, Q6H, PRN for Pain (Mild 1-3), Routine, Start 04/29/22 1:32:00 EDT, 04/29/22 1:32:00 EDT acetaminophen-hydrocodone, 1 Tab, Oral, Tab, Q6H, PRN for Pain (Moderate 4-6), Routine, Start 04/29/22 1:32:00 EDT cefepime + Sodium Chloride 0.9% intravenous solution 50 mL, 1 Gram, IV Piggyback, Inj, Q8HInt, infuse over 30 Minute(s), Routine, Start 04/29/22 2:00:00 EDT, 100 mL/Hr, Indication: Urinary Tract Infection glucagon, 1 mg, IntraMuscular, Inj, Q15Min, PRN for Other (See Comment), Routine, Start 04/29/22 1:49:00 EDT, 04/29/22 1:49:00 EDT glucose, 15 Gram 37.5 mL, Oral, Gel, Q15Min, PRN for Other (See Comment), Routine, Start 04/29/22 1:49:00 EDT, 04/29/22 1:49:00 EDT glucose, 25 Gram, IV Push, Inj, Q15Min, PRN for Other (See Comment), Routine, Start 04/29/22 1:49:00 EDT, 04/29/22 1:49:00 EDT glucose, 16 Gram, 4 Tab, Chew, Tab, Q15Min, PRN for Other (See Comment), Routine, Start 04/29/22 1:49:00 EDT glucose, 12.5 Gram, IV Push, Inj, Q15Min, PRN for Other (See Comment), Routine, Start 04/29/22 1:49:00 EDT, 04/29/22 1:49:00 EDT glucose, 25 Gram, IV Push, Inj, Q15Min, PRN for Other (See Comment), Routine, Start 04/29/22 1:49:00 EDT, 04/29/22 1:49:00 EDT glucose, 25 Gram, IV Push, Inj, Q15Min, PRN for Other (See Comment), Routine, Start 04/29/22 1:49:00 EDT, 04/29/22 1:49:00 EDT heparin, 5,000 Units, SubCutaneous, Inj, Q8HInt, Routine, Start 04/29/22 2:00:00 EDT, 04/29/22 1:32:00 EDT hydrALAZINE, 10 mg, IV Push, Inj, Q6H, order duration: 24 Hour(s), PRN for Hypertension, Routine, Start 04/29/22 1:32:00 EDT, Stop 04/30/22 1:31:00 EDT, 04/29/22 1:32:00 EDT insulin lispro, Scale A:, SubCutaneous, Inj, AC and at Bedtime, Routine, Start 04/29/22 7:00:00 EDT, At HS give only if FSBG > 180 mg/dL labetalol, 10 mg, IV Push, Inj, Q6H, order duration: 24 Hour(s), PRN for Hypertension, Routine, Start 04/29/22 1:32:00 EDT, Stop 04/30/22 1:31:00 EDT, 04/29/22 1:32:00 EDT morphine, 2 mg, IV Push, Inj, Q4H, order duration: 24 Hour(s), PRN for Pain (Severe 7-10), Routine, Start 04/29/22 1:32:00 EDT, Stop 04/30/22 1:31:00 EDT, 04/29/22 1:32:00 EDT ondansetron, 4 mg, IV Push, Inj, Q6H, order duration: 24 Hour(s), PRN for Nausea/Vomiting, Routine, Start 04/29/22 1:32:00 EDT, Stop 04/30/22 1:31:00 EDT, 04/29/22 1:32:00 EDT pantoprazole, 40 mg, IV Push, Inj, Daily, order duration: 24 Hour(s), Routine, Start 04/29/22 9:00:00 EDT, Stop 04/29/22 9:00:00 EDT, 04/29/22 1:32:00 EDT Sodium Chloride 0.9% intravenous solution 1,000 mL, 1,000 mL, Bag Volume (mL) = 1,000, IntraVENous, Rate = 100 mL/Hr, start date 04/29/22 1:32:00 EDT, Routine, 1.94, m2 Admit to Inpatient BMP Basic Metabolic Panel CBC w/ Auto Diff Communication to Nursing Communication to Nursing Communication to Nursing Communication to Nursing Communication to Nursing Consult to Physician Diabetes Education (Nursing) Diet, Adult Intake and Output Strict Lab Order Instructions to Nursing Medication Administration Instructions Notify Provider Notify Provider Notify Provider Patient Position Peripheral IV Insertion Platelet Count Platelet Count POC Glucose Resuscitation Status Seizure Precautions Seizure Precautions Sequential Compression Device VTE Prophylaxis - Medical Heparin 5,000 Units, SubCutaneous, Inj, Q8HInt, Routine, Start 04/29/22 2:00:00 EDT, 04/29/22 1:32:00 EDT (KASI RAVI) Sequential Compression Device Start: 04/29/22 1:02:00 EDT, Bilateral, Length: Knee High, While patient is in bed, Continuous Order (KASI RAVI) Problem List/Past Medical History Ongoing Chronic kidney disease (CKD), stage III (moderate) Diabetes History of obstructive sleep apnea Hyperlipidemia Hypertension Paraplegia Historical No qualifying data Procedure/Surgical History ASSISTANCE WITH RESPIRATORY VENTILATION, <24 HRS, CPAP (03/20/2022), ASSISTANCE WITH RESPIRATORY VENTILATION, <24 HRS, CPAP (03/18/2022), ASSISTANCE WITH RESPIRATORY VENTILATION, <24 HRS, CPAP (03/15/2022), ASSISTANCE WITH RESPIRATORY VENTILATION, <24 HRS, CPAP (03/14/2022), ASSISTANCE WITH RESPIRATORY VENTILATION, <24 HRS, CPAP (03/11/2022), ASSISTANCE WITH RESPIRATORY VENTILATION, <24 HRS, CPAP (03/10/2022), ULTRASONOGRAPHY OF HEART WITH AORTA (03/09/2022), ASSISTANCE WITH RESPIRATORY VENTILATION, <24 HRS, CPAP (03/08/2022), TRANSFUSE NONAUT RED BLOOD CELLS IN PERIPH VEIN, PERC (03/07/2022), DRAINAGE OF RIGHT LOWER LUNG LOBE, ENDO, DIAGN (03/04/2022), EXTIRPATION OF MATTER FROM RIGHT LOWER LOBE BRONCHUS, ENDO (03/04/2022), EXTIRPATION OF MATTER FROM RIGHT MIDDLE LOBE BRONCHUS, ENDO (03/04/2022), INSERTION OF ENDOTRACHEAL AIRWAY INTO TRACHEA, VIA OPENING (03/01/2022), INSERTION OF INFUSION DEV INTO SUP VENA CAVA, PERC APPROACH (03/01/2022), INSERTION OF MONITORING DEVICE INTO UP ART, PERC APPROACH (03/01/2022), MONITORING OF ARTERIAL PRESSURE, PERIPHERAL, PERC APPROACH (03/01/2022), MONITORING OF ARTERIAL PULSE, PERIPHERAL, PERC APPROACH (03/01/2022), RESPIRATORY VENTILATION, GREATER THAN 96 CONSECUTIVE HOURS (03/01/2022), RESPIRATORY VENTILATION, LESS THAN 24 CONSECUTIVE HOURS (03/01/2022), ASSISTANCE WITH RESPIRATORY VENTILATION, <24 HRS, CPAP (02/28/2022), ASSISTANCE WITH RESPIRATORY VENTILATION, <24 HRS, CPAP (02/26/2022), ASSISTANCE WITH RESPIRATORY VENTILATION, <24 HRS, CPAP (02/25/2022), TRANSFUSE NONAUT RED BLOOD CELLS IN PERIPH VEIN, PERC (02/23/2022), ASSISTANCE WITH RESPIRATORY VENTILATION, <24 HRS, CPAP (02/22/2022), INSERTION OF ENDOTRACHEAL AIRWAY INTO TRACHEA, VIA OPENING (02/22/2022), INTRODUCE OF OTH ANTI-INFECT INTO PERIPH VEIN, PERC APPROACH (02/22/2022), INTRODUCTION OF VASOPRESSOR INTO PERIPH VEIN, PERC APPROACH (02/22/2022), RESPIRATORY VENTILATION, 24-96 CONSECUTIVE HOURS (02/22/2022), , colonoscopy, hysterectomy - total, left hip debridement due to pressure ulcer, 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 Home Medications (13) Active acetaminophen 325 mg oral tablet 650 mg = 2 Tab, PRN, Oral, Q6H bisoprolol 5 mg oral tablet 5 mg = 1 Tab, Oral, Daily cefuroxime 500 mg oral tablet 500 mg = 1 Tab, Oral, BID docusate sodium 100 mg oral capsule 100 mg = 1 Cap, PRN, Oral, BID Farxiga 10 mg oral tablet 10 mg = 1 Tab, Oral, Daily ferrous sulfate 325 mg (65 mg elemental iron) oral tablet 325 mg = 1 Tab, Oral, BID Fosamax Plus D 70 mg-2800 intl units oral tablet 1 Tab, Oral, Weekly Lovaza 1000 mg oral capsule 2,000 mg [...] mg = 1 Tab, Oral, At Bedtime Allergies No Known Allergies Social History nonsmoker Family History cad Diagnostic Results No Radiology Results Found Lab Results Test Name Test Result Date/Time Sodium Level 137 mmol/L 04/28/2022 22:14 EDT Potassium Level 4.8 mmol/L 04/28/2022 22:14 EDT Chloride Level 107 mmol/L 04/28/2022 22:14 EDT Carbon Dioxide Level 22 mmol/L 04/28/2022 22:14 EDT Anion Gap 13 04/28/2022 22:14 EDT Glucose Level 179 mg/dL (High) 04/28/2022 22:14 EDT Blood Urea Nitrogen 41 mg/dL (High) 04/28/2022 22:14 EDT Creatinine Level 1.92 mg/dL (High) 04/28/2022 22:14 EDT eGFR 32 mL/min/1.73m2 (Low) 04/28/2022 22:14 EDT eGFR NonAfrican 27 mL/min/1.73m2 (Low) 04/28/2022 22:14 EDT Bun/Creatinine 21.3 (High) 04/28/2022 22:14 EDT Calcium Level 8.9 mg/dL 04/28/2022 22:14 EDT Protein Total 7.7 Gram/dL 04/28/2022 22:14 EDT Albumin Level 2.7 Gram/dL (Low) 04/28/2022 22:14 EDT Globulin 5.0 Gram/dL (High) 04/28/2022 22:14 EDT A/G Ratio 0.5 (Low) 04/28/2022 22:14 EDT Bilirubin Total 0.8 mg/dL 04/28/2022 22:14 EDT Alk Phos 73 Units/Liter 04/28/2022 22:14 EDT AST 18 Units/Liter 04/28/2022 22:14 EDT ALT 26 Units/Liter 04/28/2022 22:14 EDT Magnesium Level 2.0 mg/dL 04/28/2022 22:14 EDT Lactic Acid Level 0.7 mmol/L 2022 01:06 EDT Lactic Acid Level 5.2 mmol/L (Critical) 04/28/2022 22:14 EDT Troponin I High Sensitivity 5.9 pg/mL 04/28/2022 22:14 EDT ProBNP 671 pg/mL (High) 04/28/2022 22:14 EDT WBC 7.2 K/uL 04/28/2022 22:14 EDT RBC 3.14 Million/uL (Low) 04/28/2022 22:14 EDT Hgb 9.2 g/dL (Low) 04/28/2022 22:14 EDT Hct 29.1 % (Low) 04/28/2022 22:14 EDT MCV 92.7 fL 04/28/2022 22:14 EDT MCH 29.3 pg 04/28/2022 22:14 EDT MCHC 31.6 Gram/dL (Low) 04/28/2022 22:14 EDT Platelet Count 318 K/uL 04/28/2022 22:14 EDT MPV 10.4 fL 04/28/2022 22:14 EDT RDW 15.9 % (High) 04/28/2022 22:14 EDT Neut % 68.2 % 04/28/2022 22:14 EDT Neut # 4.91 K/uL 04/28/2022 22:14 EDT Lymph % 21.3 % 04/28/2022 22:14 EDT Lymph # 1.53 x10(3)/uL 04/28/2022 22:14 EDT [place] % 7.2 % 04/28/2022 22:14 EDT [place] # 0.52 K/uL 04/28/2022 22:14 EDT Eos % 1.9 % 04/28/2022 22:14 EDT Eos # 0.14 x10(3)/uL 04/28/2022 22:14 EDT Baso % 0.7 % 04/28/2022 22:14 EDT Baso # 0.05 x10(3)/uL 04/28/2022 22:14 EDT Slide Review No 04/28/2022 22:14 EDT IG# 0.05 x10(3)/uL 04/28/2022 22:14 EDT IG% 0.70 % (High) 04/28/2022 22:14 EDT PT 9.9 Second(s) 04/28/2022 22:14 EDT INR 0.9 04/28/2022 22:14 EDT Urine Type. U Cath 04/28/2022 22:19 EDT Urine Color Yellow 04/28/2022 22:19 EDT Urine Appearance Turbid (Abnormal) 04/28/2022 22:19 EDT Urine Specific [place] 1.015 04/28/2022 22:19 EDT Urine pH Dipstick 6.0 04/28/2022 22:19 EDT Urine Leukocyte Esterase 500 (Abnormal) 04/28/2022 22:19 EDT Urine Nitrite NEGATIVE2 04/28/2022 22:19 EDT Urine Protein Dipstick 2+ (Abnormal) 04/28/2022 22:19 EDT Urine Glucose Dipstick 3+ (Abnormal) 04/28/2022 22:19 EDT Urine Ketones Dipstick NEGATIVE2 04/28/2022 22:19 EDT Urine Urobilinogen Dipstick Normal2 04/28/2022 22:19 EDT Urine Bilirubin Dipstick NEGATIVE2 04/28/2022 22:19 EDT Urine Blood Dipstick 1+ (Abnormal) 04/28/2022 22:19 EDT Ur RBC 11-20 (Abnormal) 04/28/2022 22:19 EDT Ur WBC To Numerous to Count (Abnormal) 04/28/2022 22:19 EDT Ur WBC Clumps PRESENT 04/28/2022 22:19 EDT Ur Bacteria 2+ (Abnormal) 04/28/2022 22:19 EDT Ur Mucous 1+ (Abnormal) 04/28/2022 22:19 EDT Ur Squamous Epithelial Cells NONE 04/28/2022 22:19 EDT Ur Hyaline Casts 3-5 (Abnormal) 04/28/2022 22:19 EDT Ur Yeast, Budding 4+ (Abnormal) 04/28/2022 22:19 EDT Urine Culture if Indicated Culture Ordered 04/28/2022 22:19 EDT Procalcitonin <0.25 ng/mL 04/28/2022 22:14 EDT SARS-CoV-2 (COVID19 PCR) Negative2 04/28/2022 22:19 EDT Additional Documentation Code Status Start: 04/29/22 1:02:00 EDT, Full Code, Continuous Order Electronically signed by [facility] Conversion [employer]ner at 12/21/2022 5:00 PM CDT documented in this encounter Plan of Treatment Not on file documented as of this encounter Visit Diagnoses Not on filedocumented in this encounter
--- OUTSIDE RECORDS SUMMARY | 2025-02-21 13:36 | XMS_ITS | Encounter Summary ---
Author Organization [employer] Address [address] [place] [address] Care Team Providers Care Equipment Operator/Laborer Name Role Phone Unavailable Primary Care Provider Unavailabl e Encounter Details Date Type Department Care Team (Late st Contact Info) Description 04/14/2022 Transcribed Document [facility] [place] [address] [place] [address] ProviderFlorentino MD [address] [place] [address] Social History Tobacco Use Types Packs/Day Years Used Date Smoking Tobacco: Never Assessed Comments Unknown Sex and Gender Information Value Date Recorded Sex Assigned at Not on file Legal Sex Female 1:44 PM CDT Gender Identity Not on file Sexual Orientation Not on file documented as of this encounter Miscellaneous Notes * Cerner Conversion Note - Florentino Lynne MD - 04/14/2022 9:42 PM CDT Patient: ALYSSA AZUL Age: 61 years Sex: Female : 1960 Associated Diagnoses: None Author: HIGINIO AREVALO MD-INF Antibiotics: Zyvox, meropenem, micafungin. CC: Sacral wound Subjective: She improving with no fevers and off pressors and no CRRT elevated BP and HR more alert. Objective: Vitals Signs (last 24 hrs) Last Charted Minimum Maximum Temp 98.2 (APR 14 20:00) 98 (APR 14 00:00) 98 (APR 14 00:00) Mon HR 82 (APR 14 21:30) 60 (APR 14 02:00) 93 (APR 14 21:15) Resp Rate H 24 (APR 14 21:30) L 8 (APR 14 01:00) H 50 (APR 14:15) SBP H 167 (APR 14:30) L 85 (APR 14 05:00) H 167 (APR 14:00) DBP 81 (APR 14:30) L 52 (APR 14 05:00) 88 (APR 14 15:00) MAP 113 (APR 14:30) 64 (APR 14 05:00) 117 (APR 14:00) SpO2 98 (APR 14:) L 77 (APR 14 16:00) 100 (APR 13 23:00) PE: General: alert, oriented HEENT: sclera white [...] LABS: Labs (Last four charted values) WBC 6.0 (APR 14) 8.4 (APR 13) 7.3 (APR 12) 8.2 (APR 11) HB L 7.2 (APR 14) L 7.4 (APR 13) L 7.1 (APR 12) L 7.0 (APR 11) HCT L 22.3 (APR 14) L 22.4 (APR 13) L 21.8 (APR 12) L 21.4 (APR 11) Plt L 104 (APR 14) L 106 (APR 13) L 113 (APR 12) L 111 (APR [...] pending IMAGING: Radiology Results (Last 48 hours) [id number] -- 04/08/2022 07:53 CR Chest 1 Vw [...] and dictated by Dr. Jaycob Wynne.Transcribed by ELENA Maria-CI have personally viewed, interpreted [...] alert fevers resolved and no crrt and bridges supervisor stable. RECOMMENDATIONS/PLANS: -Follow-up cultures, gram-negative rods in urine [...]
--- OUTSIDE RECORDS SUMMARY | 2025-02-21 13:36 | XMS_ITS | Encounter Summary ---
Author Organization [employer] Address [address] [place] [address] Care Team Providers Care Budget Assistant Name Role Phone Unavailable Primary Care Provider Unavailabl e Encounter Details Date Type Department Care Team (Late st Contact Info) Description 04/28/2022 Transcribed Document [facility] [place] [address] [place] [address] ProviderFlorentino MD [address] [place] [address] Social History Tobacco Use Types Packs/Day Years Used Date Smoking Tobacco: Never Assessed Comments Unknown Sex and Gender Information Value Date Recorded Sex Assigned at Not on file Legal Sex Female 1:44 PM CDT Gender Identity Not on file Sexual Orientation Not on file documented as of this encounter Miscellaneous Notes * Cerner Conversion Note - Florentino Lynne MD - 04/28/2022 9:43 PM CDT ED Assessment Entered On: 2022 0:14 EDT Performed On: 04/28/2022 22:00 EDT by Gregorio Harrell RN-PATIENT CARE BEDSIDE NON-EXEMPT ED Quick Look Assessment Level of Consciousness : Alert, Awake Affect/Behavior : Appropriate, Calm, Cooperative Orientation : Oriented x 4 Skin Temperature : Warm Skin Description : Normal for ethnicity Gregorio Harrell RN-PATIENT CARE BEDSIDE NON-EXEMPT - 2022 0:11 EDT ED General-Functional Assess Information Obtained From : Patient Communication Barrier : None Primary Language : Macedonian Any Spiritual/Cultural Needs or Requests : No Currently in Unsafe Situation : No Gregorio Harrell RN-PATIENT CARE BEDSIDE NON-EXEMPT - 2022 0:11 EDT Social Habits Smoking Status : Never (less than 100 in lifetime; none in last 30 days) Smokeless Tobacco Status : Never Desires Tobacco Cessation Calc : 0 Gregorio Harrell RN-PATIENT CARE BEDSIDE NON-EXEMPT - 2022 0:11 EDT Social History (As Of: 2022 00:14:33 EDT) Cardiovascular ASMT, ED Cardiovascular Assessment WDL : WDL with exceptions (Comment: pt hypotensive upon arrival to ED. pt denies s/s. [Gregorio Harrell RN-PATIENT CARE BEDSIDE NON-EXEMPT - 2022 0:11 EDT] ) Cardiovascular Symptoms : None Heart Rhythm : Regular Nail Bed Color : Landusky Chest Pain : No Gregorio Harrell RN-PATIENT CARE BEDSIDE NON-EXEMPT - 2022 0:11 EDT Pulses Grid Radial Pulse, Left : 2+ normal Radial Pulse, Right : 2+ normal Gregorio Harrell RN-PATIENT CARE [facility] NON-EXEMPT - 2022 0:11 EDT Respiratory Respiratory Assessment WDL : WDL Cough : None Gregorio Harrell RN-PATIENT CARE BEDSIDE NON-EXEMPT - 2022 0:11 EDT Breath Sounds Assessment Grid All Lobes Breath Sounds : Clear FISH : Clear LLL : Clear RUL : Clear RML : Clear RLL : Clear Gregorio Harrell RN-PATIENT CARE BEDSIDE NON-EXEMPT - 2022 0:11 EDT Respiratory Pattern Description : Regular Gregorio Harrell RN-PATIENT CARE [facility] NON-EXEMPT - 2022 0:11 EDT Integumentary Assessment Integumentary Assessment WDL : WDL with exceptions (Comment: pt has wound w/ wound vac to L flank. wound approximately 8cm/6cm. no purulent exudate. some redness around edges. wound assessment documented w/ pictures. [Gregorio Harrell RN-PATIENT CARE BEDSIDE NON-EXEMPT - 2022 0:11 EDT] ) Gregorio Harrell RN-PATIENT CARE BEDSIDE NON-EXEMPT - 2022 0:11 EDT documented in this encounter Plan of Treatment Not on file documented as of this encounter Visit Diagnoses Not on filedocumented in this encounter
--- OUTSIDE RECORDS SUMMARY | 2025-02-21 13:36 | XMS_ITS | Encounter Summary ---
Author Organization [employer] Address [address] [place] [address] Care Team Providers Care Oven Drier Tender Name Role Phone Unavailable Primary Care Provider Unavailabl e Encounter Details Date Type Department Care Team (Late st Contact Info) Description 02/25/2022 Transcribed Document [facility] [place] Family Medicine [address] [place] [address] ProviderFlorentino MD [address] [place] [address] Social History Tobacco Use Types Packs/Day Years Used Date Smoking Tobacco: Never Assessed Comments Unknown Sex and Gender Information Value Date Recorded Sex Assigned at Not on file Legal Sex Female 1:44 PM CDT Gender Identity Not on file Sexual Orientation Not on file documented as of this encounter Miscellaneous Notes * Cerner Conversion Note - Historical ProviderMD - 02/25/2022 2:00 AM CDT Motorboat Mechanic Helper Details Entered On: 02/25/2022 2:18 EDT Performed On: 02/25/2022 2:00 EDT by Ana Whitney RN Order Details Transport Mode Order Detail : Bed (including specialty) Order Detail : 1 IV Order Detail : 1 Oxygen Order Detail : 1 Nurse Collect Order Detail : 1 Lift/Transfer : Maximal assist Central Line Order Detail : Yes Room Service : Appropriate Arterial Line : No Patient Needs Meds Crushed/Liquid : Yes Meds Administered Via Tube : Yes Ana Whitney RN - 02/25/2022 2:18 EDT documented in this encounter Plan of Treatment Not on file documented as of this encounter Visit Diagnoses Not on filedocumented in this encounter
--- OUTSIDE RECORDS SUMMARY | 2025-02-21 13:36 | XMS_ITS | Encounter Summary ---
Author Organization [employer] Address [address] [place] [address] Care Team Providers Care Slicer Machine Operator Name Role Phone Unavailable Primary Care Provider Unavailabl e Encounter Details Date Type Department Care Team (Late st Contact Info) Description 02/25/2022 Transcribed Document [facility] [place] [address] [place] [address] ProviderFlorentino MD [address] [place] [address] Social History Tobacco Use Types Packs/Day Years Used Date Smoking Tobacco: Never Assessed Comments Unknown Sex and Gender Information Value Date Recorded Sex Assigned at Not on file Legal Sex Female 1:44 PM CDT Gender Identity Not on file Sexual Orientation Not on file documented as of this encounter Miscellaneous Notes * Cerner Conversion Note - Florentino ProviderMD - 02/25/2022 10:44 AM CDT Patient: ALYSSA AZUL Age: 61 years Sex: Female : 1960 Associated Diagnoses: None Author: KEILY CUNNINGHAM DO Subjective patinet seen by me this morning, d/w rn- not on pressors, on insulin drip overnight. she is currently on SBT. she will open eyes, shake head and squeeze fingers. Objective Intake and Output Intake & Output Totals Last 24 Hours (7a-7a) Intake (63 Events) Continuous Infusions (33.552 mL) Medications (175.36 mL) Enteral Additional Water Given (1400 mL) Enteral Feeding Amount (330 mL) Output (10 Events) Ostomy Output, Genitourinary: (1045 mL) Urine Voided (Volume) (1975 mL) Input Total: 1938.912 mL Output Total: 3020 mL Balance: -1081.088 mL VS/Measurements Vitals Signs (last 24 hrs) Last Charted Minimum Maximum Temp 99.4 (FEB 25 04:00) 98.1 (FEB 24 12:00) H 100.1 (FEB 24 16:00) Apical HR 94 (FEB 25 04:19) 91 (FEB 24 16:38) 94 (FEB 25 04:19) Mon HR 83 (FEB 25 09:15) 79 (FEB 24 20:00) 101 (FEB 25 01:00) Resp Rate H 24 (FEB 25 09:15) L 13 (FEB 25 08:40) H 62 (FEB 24 20:28) SBP 105 (FEB 25 09:15) 101 (FEB 25 09:00) H 219 (FEB 24 22:15) DBP 61 (FEB 25 09:15) L 55 (FEB 25 06:30) H 93 (FEB 24 16:30) MAP 76 (FEB 25 09:15) 72 (FEB 25 09:00) 134 (FEB 24 16:30) SpO2 L 93 (FEB 25 09:15) L 92 (FEB 25 08:38) 100 (FEB 24 13:30) General: No acute distress, lying in bed . Eye: Pupils are equal, round and reactive to light, Normal conjunctiva. HENT: Normocephalic, old heeled trach site in place. Neck: Supple. Respiratory: intubated on 35 % fio2 and 5 of peep. Cardiovascular: Normal rate, Regular rhythm, No edema. Gastrointestinal: RLQ urostomy in place with clear urine. Musculoskeletal: LEFTlateral hip wound vac in place. Neurologic: opens eyes, squeezes both hands, shakes her head, Not oriented. Psychiatric: Not cooperative, Not appropriate mood & affect. Results Review General results Interpretation: FEB 25 03:10 146 110 H 48 / H 178 L 3.4 L 20 H 3.28 \ FEB 25 03:10 \ L 8.3 / H 10.4 246 / L 25.5 \ Labs (Last four charted values) WBC H 10.4 (FEB 25) 8.9 (FEB 24) 6.5 (CATRACHITA 26) 8.9 (CATRACHITA 25) HB [...] BUN H 48 (CATRACHITA 28) H 49 (CATRACHITA 27) H 51 (CATRACHITA 26) H 53 (CATRACHITA 26) Cr H 3.28 (CATRACHITA 28) H 3.17 (CATRACHITA 27) H 3.04 (CATRACHITA 26) H 3.13 (CATRACHITA 26) Glu R H 178 (CATRACHITA 28) H 217 (CATRACHITA 27) 74 (CATRACHITA 26) H 121 (CATRACHITA 26) Ca L 8.1 (CATRACHITA 28) L 7.3 (CATRACHITA 27) L 6.8 (CATRACHITA 26) L 7.0 (CATRACHITA 26) Lactic 0.9 (CATRACHITA 25) 0.7 (CATRACHITA 25) [...] (CATRACHITA 24) Radiology Results (Last 48 hours) [id number] -- 02/22/2022 00:01 CR Abdomen 1 Vw Portable (02/23/2022 15:03) Result: [...] noon and required re-intubation on 02/22 evening- attempting SBT currently septic shock due to pneumonia and sacral decibitus ulcer -weaned off levophed on 02/22. - continue antibiotics- zosyn. - hold vancomycin. type dm - a1c 7.3 - has been off and on insulin drip- will try to get OFF insulin drip again today. lantus 14 units bid. JAVIER - nephrology consulted - s/p bicarb [...] appreciated- recommend wound care consult - d/w phototypesetter operator today- wound vac applied on 02/24 pneumonia - on cefepime and vanco at OSH - ID consulted - on zosyn here history of urostomy - noted, date deficient - per son, she has this for over 20 years I spoke to transfer center at 0922 on 02/22 as i was concerned that plastic may need to be involved for decubitus ulcer- they are NOT able to even list the patient due to divert status. Summary [facility] stay: patient admitted to [facility] on 02/17/22, temp in ER of [...] necrosis. no pathology sent. [place] [facility] [place] 02[place]22: extubated, given [...] need thoracentesis for moderate bilateral pleural effusions. d/w pulmonology and ID today. time spent: 35 min d/w son, FREDO, via phone on 02/23. discharge goals: improve resp status. Keily Cunningham D.O. [facility] Emergency Department Hospitalist pager- [phone] Electronically signed by Bruce Shell Conversion Auto Self Service Station Attendant [employer] at 12/21/2022 5:05 PM CDT documented in this encounter Plan of Treatment Not on file documented as of this encounter Visit Diagnoses Not on filedocumented in this encounter
--- OUTSIDE RECORDS SUMMARY | 2025-02-21 13:36 | XMS_ITS | Encounter Summary ---
Author Organization [employer] Address [address] [place] [address] Care Team Providers Care Rug Receiving Clerk Name Role Phone Unavailable Primary Care Provider Unavailabl e Encounter Details Date Type Department Care Team (Late st Contact Info) Description 03/04/2022 Transcribed Document [facility] [place] Family Medicine [address] [place] [address] ProviderFlorentino MD [address] [place] [address] Social History Tobacco Use Types Packs/Day Years Used Date Smoking Tobacco: Never Assessed Comments Unknown Sex and Gender Information Value Date Recorded Sex Assigned at Not on file Legal Sex Female 1:44 PM CDT Gender Identity Not on file Sexual Orientation Not on file documented as of this encounter Miscellaneous Notes * Cerner Conversion Note - Florentino ProviderMD - 03/04/2022 10:34 AM CDT Patient: ALYSSA AZUL Age: 61 [...] on ventilator support and both son and jdrnbyen-zp-zxw are present at bedside to give some medical background; therefore, history and hospital course is primarily retrieved from them and through medical chart review. In summary, patient was admitted to [facility] on 02/17/22 with symptoms including dyspnea, fever, [...] higher level care, she was transferred to [facility] on 02/22. Patient was extubated on [...] 2.25 Gram, 16.67 mL/Hr, IV Piggyback, Q8HInt albumin human 25% intravenous solution: 25 Gram, [...] oral tablet: Tab, Oral, Daily, 0 Refill(s) [place]-3 1000 mg oral capsule: Cap, Oral, QID, [...] tablet: Tab, Oral, Daily, 0 Refill(s), Medications (35) Active Scheduled: (12) acetylcysteine 20% liq 4 mL 1 mL, [...] History of obstructive sleep apnea / IMO [id number] / Confirmed, Active Problems (5) Chronic kidney [...] 01) . Radiology Results (Last 48 hours) [id number] -- 03/01/2022 17:45 CR Chest 1 Vw [...] transcribed report. CR Chest 1 Vw Portable (03/04/2022 03:58) Result: PORTABLE CHEST 03/04/2022 4:00 AM HISTORY: Shortness of breath.COMPARISON: Previous day .FINDINGS: The heart is stable in size. There has been interval worseningin the in the extensive right lung opacity, moderate to large rightpleural effusion. There is a stable small left pleural effusion. Thereis no pneumothorax. The support devices are in good position.IMPRESSION: Interval worsening as above.Continued follow up recommended.Images reviewed, interpreted, and dictated by Dr. [...] Baseline paraplegia Baseline mentation not observed Renal Iuymu-xj-MCG -- improving Electrolyte abnormalities Hyperchloremia Endocrine T2DM Glycemic control Hematology/Oncology Leukocytosis Plan: Vent bundle. Wean FiO2, for goal saturation >90%. 5 of PEEP and 40% FiO2, spoke to the nurse at the bedside and will DC propofol and proceed to breathing trial after bronchoscopy.. Chest x-ray reviewed independently showing worsening right lung infiltrate, nurse reported thick secretions, will proceed with bronchoscopy for diagnostic and therapeutic purpose. Ultrasound initial report trace pleural effusion significant atelectasis. Final report pending. Sedation: On Propofol/Fentanyl. Titrate to RASS goal [...] SQ CODE STATUS: Full Code Disposition: ICU on 03/03, 10:45 AM. Family meeting: I spoke to the son and the buxexvho-ko-fzo at the bedside explained the findings of [...] the board, questions or concerns were addressed. I have personally evaluated the patient; Obtained history, performed physical examination, reviewed laboratory studies. I have reviewed images independent of radiologist. I have actively directed the medical care, formulated diagnosis, and the plan of care. Patient requires a high complexity of decision making for assessment. 31 minutes critical care time excluding procedures. Electronically signed by Bruce Shell Conversion Education Courses Sales Representative [employer] at 12/21/2022 5:04 PM CDT documented in this encounter Plan of Treatment Not on file documented as of this encounter Visit Diagnoses Not on filedocumented in this encounter
--- OUTSIDE RECORDS SUMMARY | 2025-02-21 13:36 | XMS_ITS | Encounter Summary ---
Author Organization [employer] Address [address] [place] [address] Care Team Providers Care Dive Superintendent Name Role Phone Unavailable Primary Care Provider Unavailabl e Encounter Details Date Type Department Care Team (Late st Contact Info) Description 03/04/2022 Transcribed Document [facility] [place] [address] [place] [address] ProviderFlorentino MD [address] [place] [address] Social History Tobacco Use Types Packs/Day Years Used Date Smoking Tobacco: Never Assessed Comments Unknown Sex and Gender Information Value Date Recorded Sex Assigned at Not on file Legal Sex Female 1:44 PM CDT Gender Identity Not on file Sexual Orientation Not on file documented as of this encounter Miscellaneous Notes * Cerner Conversion Note - Florentino ProviderMD - 03/04/2022 5:45 AM CDT Height and Weight, Routine Entered On: 03/04/2022 5:45 EDT Performed On: 03/04/2022 5:45 EDT by Deborah Chilel Patient Bowl Turner Gopal Height and Weight, Routine Routine Weight Source : Bed scale Routine Weight Entry Format : Metric Routine Weight, Kilograms : 93.4 kg(Converted to: 205 lb 15 oz) Routine Weight Calculation : 93.4 kg Height Source : Chart Height Entry Format : [place] Height, Feet : 5 ft Height, Inches : 4 Inch Clinical Height : 162.56 cm Body Surface Area (BSA), Routine : 1.98 m2 Body Mass Index (BMI), Routine : 35.34 kg/m2 Deborah Chilel Patient Bowl Turner I - 03/04/2022 5:45 EDT documented in this encounter Plan of Treatment Not on file documented as of this encounter Visit Diagnoses Not on filedocumented in this encounter
--- OUTSIDE RECORDS SUMMARY | 2025-02-21 13:36 | XMS_ITS | Encounter Summary ---
Author Organization [employer] Address [address] [place] [address] Care Team Providers Care Janitor And Cleaner Name Role Phone Unavailable Primary Care Provider Unavailabl e Encounter Details Date Type Department Care Team (Late st Contact Info) Description 04/28/2022 Transcribed Document [facility] [place] [address] [place] [address] ProviderFlorentino MD [address] [place] [address] Social History Tobacco Use Types Packs/Day Years Used Date Smoking Tobacco: Never Assessed Comments Unknown Sex and Gender Information Value Date Recorded Sex Assigned at Not on file Legal Sex Female 1:44 PM CDT Gender Identity Not on file Sexual Orientation Not on file documented as of this encounter Miscellaneous Notes * Cerner Conversion Note - Historical ProviderMD - 04/28/2022 10:13 PM CDT Height and Weight, Clinical Dosing Entered On: 04/28/2022 22:14 EDT Performed On: 04/28/2022 22:13 EDT by KALINA PADILLA, JUAN CARLOS Height and Weight, Clinical Dosing Height Source : Stated Height Entry Format : [place] Height, Feet : 5 ft(Converted to: 152 cm, 60 Inch) Height, Inches : 6 Inch(Converted to: 0 ft 6 Inch, 15.24 cm) Clinical Height : 167.64 cm Weight Source : Stated [place] Body Weight : 59 kg KALINA PADILLA NOV - 04/28/2022 22:13 EDT Estimated Weight Type of Weight Measurement Est : [place] Weight, est lb : 175 lb(Converted to: 79 kg) Estimated Clinical Dosing Weight : 79.55 kg KALINA PADILLA APR - 04/28/2022 22:13 EDT documented in this encounter Plan of Treatment Not on file documented as of this encounter Visit Diagnoses Not on filedocumented in this encounter
--- OUTSIDE RECORDS SUMMARY | 2025-02-21 13:36 | XMS_ITS | Encounter Summary ---
Author Organization [employer] Address [address] [place] [address] Care Team Providers Care Director Of Product Management Name Role Phone Unavailable Primary Care Provider Unavailabl e Encounter Details Date Type Department Care Team (Late st Contact Info) Description 02/25/2022 Transcribed Document [facility] [place] [address] [place] [address] ProviderFlorentino MD [address] [place] [address] Social History Tobacco Use Types Packs/Day Years Used Date Smoking Tobacco: Never Assessed Comments Unknown Sex and Gender Information Value Date Recorded Sex Assigned at Not on file Legal Sex Female 1:44 PM CDT Gender Identity Not on file Sexual Orientation Not on file documented as of this encounter Miscellaneous Notes * Cerner Conversion Note - Florentino ProviderMD - 02/25/2022 5:00 PM CDT Chart Check - Review Order Profile Entered On: 02/25/2022 18:22 EDT Performed On: 02/25/2022 17:00 EDT by Tara Guallpa RESIDENT DOCTOR-NURSE SPORTS COMPLEX ATTENDANT Chart Check Powerplans Initiated/Discontinued as Appropriate : Yes All Active Orders Reviewed : Yes Tara Guallpa RESIDENT DOCTOR-NURSE SPORTS COMPLEX ATTENDANT - 02/25/2022 18:22 EDT (Not Validated) documented in this encounter Plan of Treatment Not on file documented as of this encounter Visit Diagnoses Not on filedocumented in this encounter
--- OUTSIDE RECORDS SUMMARY | 2025-02-21 13:36 | XMS_ITS | Encounter Summary ---
Author Organization [facility] Address [address] [place] [address] Care Team Providers Care Cleaning Laborer Name Role Phone Unavailable Primary Care Provider Unavailabl e Encounter Details Date Type Department Care Team (Late st Contact Info) Description 03/04/2022 Transcribed Document [facility] [place] [facility] [place] [address] ProviderFlorentino MD [address] [place] [address] Social History Tobacco Use Types Packs/Day Years Used Date Smoking Tobacco: Never Assessed Comments Unknown Sex and Gender Information Value Date Recorded Sex Assigned at Not on file Legal Sex Female 1:44 PM CDT Gender Identity Not on file Sexual Orientation Not on file documented as of this encounter Miscellaneous Notes * Cerner Conversion Note - Florentino ProviderMD - 03/04/2022 9:45 AM CDT UM Authorization Entered On: 03/04/2022 9:46 EDT Performed On: 03/04/2022 9:45 EDT by SHERIF LYNCH, Nursing Home Manager Primary Insurance Authorization Authorization and Policy Numbers : Insurance 1 Health Plan: [facility] Policy Number: [id number] Authorization Number: Insurance Primary Name : [facility] Policy Number: [id number] Authorization Number: Authorization Status-Primary : Awaiting callback Reference Number-Primary : [id number] Authorized Service Begin Date-Primary : 03/01/2022 EDT Historical Authorization Comments-Primary : Comment 1: Rec vm from Hannah at [facility] on 1753 line on 03/02/22 at 8:42am She is req clinical be sent in Transf VM to [facility] so she could follow up (SHERIF LYNCH, Nursing Home Manager 03/04/2022 09:42) Comment 2: auth # per star notes, faxed clinicals via [employer] 03/01 (JOSEPH GUTIERREZ RN-UTILIZATION MANAGEMENT REVIEW NON-EXEMPT 03/02/2022 11:28) SHERIF LYNCH, Nursing Home Manager - 03/04/2022 9:45 EDT documented in this encounter Plan of Treatment Not on file documented as of this encounter Visit Diagnoses Not on filedocumented in this encounter
--- OUTSIDE RECORDS SUMMARY | 2025-02-21 13:36 | XMS_ITS | Referral Summary ---
Author Organization [employer] Address [address] [place], [place] [address] Care Team Providers Care Business Solutions Director Name Role Phone Unavailable Primary Care [...]
--- OUTSIDE RECORDS SUMMARY | 2025-02-21 13:36 | XMS_ITS | Encounter Summary ---
Author Organization [employer] Address [address] [place] [id number] Care Team Providers Care Rug Dyer Helper Name Role Phone Unavailable Primary Care Provider Unavailabl e Encounter Details Date Type Department Care Team (Late st Contact Info) Description 02/24/2022 Transcribed Document [facility] [place] [address] [place] [address] ProviderFlorentino MD [address] [place] [address] Social History Tobacco Use Types Packs/Day Years Used Date Smoking Tobacco: Never Assessed Comments Unknown Sex and Gender Information Value Date Recorded Sex Assigned at Not on file Legal Sex Female 1:44 PM CDT Gender Identity Not on file Sexual Orientation Not on file documented as of this encounter Miscellaneous Notes * Cerner Conversion Note - Florentino Lynne MD - 02/24/2022 10:41 PM CDT Patient: ALYSSA AZUL Age: 61 years Sex: Female : 1960 Associated Diagnoses: None Author: HIGINIO AREVALO MD-INF Antibiotics: Zosyn CC: Sacral wound Subjective: Patient will awaken on the vent off pressors afebrile remains on antibiotics mechanical ventilation Objective: Vitals Signs (last 24 hrs) Last Charted Minimum Maximum Temp 99.3 (FEB 24 20:00) 97.9 (FEB 24 08:00) H 100.1 (FEB 24 16:00) Apical HR 91 (FEB 24 16:38) 91 (FEB 24 16:38) 91 (FEB 24 16:38) Mon HR 86 (FEB 24 22:15) 60 (FEB 24 05:29) 100 (FEB 24 11:15) Resp Rate H 28 (FEB 24 22:15) 15 (FEB 24 08:10) H 62 (FEB 24 20:28) SBP H 219 (FEB 24 22:15) 108 (FEB 24 00:45) H 219 (FEB 24 22:15) DBP H 93 (FEB 24 22:15) L 58 (FEB 23 22:45) H 93 (FEB 24 16:30) MAP 133 (FEB 24 22:15) 78 (FEB 24 00:45) 134 (FEB 24 16:30) SpO2 97 (FEB 24 22:15) 95 (FEB 24 06:15) 100 (FEB 24 13:30) PE: General: Patient will awaken on mechanical [...] LABS: Labs (Last four charted values) WBC 8.9 (CATRACHITA 27) 6.5 (CATRACHITA 26) 8.9 (CATRACHITA 25) H 18.6 (CATRACHITA 24) HB L 7.5 (CATRACHITA 27) L 7.9 (CATRACHITA 26) L 6.6 (CATRACHITA 26) L 8.1 (CATRACHITA 25) HCT L 23.1 (CATRACHITA 27) L 24.0 (CATRACHITA [...] (CATRACHITA 26) 17 (CATRACHITA 24) ALT 16 (FEB 24) 16 (CATRACHITA 26) 21 (CATRACHITA 24) ALK P 49 (FEB 24) 53 (FEB 23) 76 (CATRACHITA 24) T Bili 0.4 (CATRACHITA 27) 0.4 (CATRACHITA 26) 0.3 (CATRACHITA 24) PTN L 5.4 (FEB 24) L 5.9 (CATRACHITA 26) L 6.3 (CATRACHITA 24) ALB L 1.7 (FEB 24) L 1.9 (CATRACHITA 26) L 1.9 (CATRACHITA 24) MICRO: Pending Outside BAL with gram-negative diplococci IMAGING: Radiology Results (Last 48 hours) [id number] -- 02/22/2022 00:01 CR Chest 1 Vw Portable (02/23/2022 03:42) Result: CHEST SINGLE VIEWHISTORY: Respiratory arrest.COMPARISON: Chest from 22 February 2022.FINDINGS: Cardiac silhouette is mildly enlarged. Endotracheal tube isunchanged in position. Right PICC tip resides in the SVC.Small to moderate bilateral pleural effusions are present, increasedover previous. There is mild bibasilar atelectasis.IMPRESSION:1. Small to moderate bilateral pleural effusions, increased overprevious.Images reviewed, interpreted, and dictated by Jaycob Wynne MD CR Abdomen 1 Vw Portable (02/23/2022 15:03) [...] soft tissue: Status post I&D x3 at [facility]. Cultures pending from there also E. Dr. Cortez evaluated at [place] and did not think any additional intervention [...] pending blood, wound and BAL cultures from [facility] - Follow-up all pending cultures from [facility], so far negative - Follow CBC, CMP, CRP, -Now off vancomycin monitor creatinine - Continue Zosyn, renally dosed further broad-spectrum coverage for soft tissue infection and now aspiration pneumonia Electronically signed by Sumaya [facility] Conversion Organizational Development Manager Cerner at 12/21/2022 5:10 PM CDT documented in this encounter Plan of Treatment Not on file documented as of this encounter Visit Diagnoses Not on filedocumented in this encounter
--- OUTSIDE RECORDS SUMMARY | 2025-02-21 13:36 | XMS_ITS | Encounter Summary ---
Author Organization [email or web address] Address [address] [place] [address] Care Team Providers Care Irrigation Equipment Remover Name Role Phone Unavailable Primary Care Provider Unavailabl e Encounter Details Date Type Department Care Team (Late st Contact Info) Description 02/24/2022 Transcribed Document [facility] [place] Family Medicine [address] [place] [address] ProviderFlorentino MD [address] [place] [address] Social History Tobacco Use Types Packs/Day Years Used Date Smoking Tobacco: Never Assessed Comments Unknown Sex and Gender Information Value Date Recorded Sex Assigned at Not on file Legal Sex Female 1:44 PM CDT Gender Identity Not on file Sexual Orientation Not on file documented as of this encounter Miscellaneous Notes * Cerner Conversion Note - Florentino Lynne MD - 02/24/2022 12:16 PM CDT UM Authorization Entered On: 02/24/2022 12:18 EDT Performed On: 02/24/2022 12:16 EDT by ANA PACE RN-Utilization Review Primary Insurance Authorization Authorization and Policy Numbers : Insurance 1 Health Plan: [facility] Policy Number: [id number] Authorization Number: Insurance Primary Name : [facility] Authorization Status-Primary : Drg approved Reference Number-Primary : [id number] Authorization Number-Primary : [id number] Number of Days Authorized-Primary : 9 Day(s) Authorized Service Begin Date-Primary : 02/22/2022 EDT Authorized Service End Date-Primary : 03/03/2022 EDT Authorization Comments-Primary : [facility] approved per fax for DRG --- nrd 03/04 Historical Authorization Comments-Primary : Comment 1: Uploaded clinicals via [employer] and Faxed to [facility]/ Reference # pending/ Awaiting callback. (Jelani Anne, cargo checker 02/22/2022 13:21) ANA PACE RN-Utilization Review - 02/24/2022 12:16 EDT Electronically signed by Sumaya [facility] Conversion Manager Government Cerner at 12/21/2022 5:04 PM CDT documented in this encounter Plan of Treatment Not on file documented as of this encounter Visit Diagnoses Not on filedocumented in this encounter
--- OUTSIDE RECORDS SUMMARY | 2025-02-21 13:36 | XMS_ITS | Encounter Summary ---
Author Organization [employer] Address [address] [place] [address] Care Team Providers Care Physician Coder Name Role Phone Unavailable Primary Care Provider Unavailabl e Encounter Details Date Type Department Care Team (Late st Contact Info) Description 03/04/2022 Transcribed Document [facility] [place] Family Medicine [facility] [address] ProviderFlorentino MD [address] [place] [address] Social History Tobacco Use Types Packs/Day Years Used Date Smoking Tobacco: Never Assessed Comments Unknown Sex and Gender Information Value Date Recorded Sex Assigned at Not on file Legal Sex Female 1:44 PM CDT Gender Identity Not on file Sexual Orientation Not on file documented as of this encounter Miscellaneous Notes * Cerner Conversion Note - Florentino ProviderMD - 03/04/2022 1:58 PM CDT UM Authorization Entered On: 03/04/2022 13:58 EDT Performed On: 03/04/2022 13:58 EDT by SHERIF LYNCH, Paint Grinder Primary Insurance Authorization Authorization and Policy Numbers : Insurance 1 Health Plan: [facility] Policy Number: [id number] Authorization Number: Insurance Primary Name : [facility] Policy Number: [id number] Authorization Number: Authorization Status-Primary : Drg approved Reference Number-Primary : [id number] Number of Days Authorized-Primary : 8 Day(s) Authorized Service Begin Date-Primary : 03/01/2022 EDT Authorized Service End Date-Primary : 03/09/2022 EDT Historical Authorization Comments-Primary : Comment 1: Authorized per fax 03/02/22 @ [id number]. Approved DRG admission. Next reivew due 03/10. -Hannah Castillo. Mallory Mantilla, Mortgage Advisor 03/04/2022 11:20) Comment 2: Rec vm from Hannah at [facility] on 1753 line on 03/02/22 at 8:42am She is req clinical be sent in Transf VM to [facility] so she could follow up (SHERIF LYNCH, Paint Grinder 03/04/2022 09:42) Comment 3: auth # per star notes, faxed clinicals via [employer] 03/01 (JOSEPH GUTIERREZ RN-UTILIZATION MANAGEMENT REVIEW NON-EXEMPT 03/02/2022 11:28) SHERIF LYNCH, Paint Grinder - 03/04/2022 13:58 EDT Electronically signed by Sumaya [facility] Conversion Hand Rug Cleaner Cerner at 12/21/2022 5:08 PM CDT documented in this encounter Plan of Treatment Not on file documented as of this encounter Visit Diagnoses Not on filedocumented in this encounter
--- OUTSIDE RECORDS SUMMARY | 2025-02-21 13:36 | XMS_ITS | Encounter Summary ---
Author Organization [employer] Address [address] [place] [address] Care Team Providers Care Superintendent Meter Tests Name Role Phone Unavailable Primary Care Provider Unavailabl e Encounter Details Date Type Department Care Team (Late st Contact Info) Description 02/25/2022 Transcribed Document [facility] [place] Family Medicine [facility] [place] [address] ProviderFlorentino MD [facility] [place] [address] Social History Tobacco Use Types Packs/Day Years Used Date Smoking Tobacco: Never Assessed Comments Unknown Sex and Gender Information Value Date Recorded Sex Assigned at Not on file Legal Sex Female 1:44 PM CDT Gender Identity Not on file Sexual Orientation Not on file documented as of this encounter Miscellaneous Notes * Cerner Conversion Note - Florentino Lynne MD - 02/25/2022 3:28 PM CDT On Going Discharge Planning Entered On: 02/25/2022 15:40 EDT Performed On: 02/25/2022 15:28 EDT by EMLI ELLISON, Hot Dog Vendor Care Management Progress Note Discharge Arrangements : Patient Post-Acute Information Patient Name: ALYSSA AZUL Gender: Female : [birth year] Age: 61 Years No Post-Acute Placement(s) Listed No Post-Acute Service(s) Listed No [place] Referral(s) Listed Discharge Options Discussed with Patient : Other: NA, pt non-verbal Barriers to Discharge Identified : Clinical Condition of Patient Barriers to Discharge Unresolved : Clinical Condition of Patient Patient Discharge Goal : Inpatient rehabilitation facility Patient Offered Choice/Affiliations Explained : No Designation of Choice Signed : No List/Info Provided Pt/Fam/Support Person : Other: none Were Referrals Sent to Post Acute Providers : No [facility] Quality Web Info Shared w Pt/Fam : No Does the Patient have a Floor to SNF Benefit? : No Is the Patient Meeting Medical Necessity : Yes Physician Agreeable to Move Forward with D/C Plan? : Yes Did you Attend Multidisciplinary Rounds? : No EMIL ELLISON, Hot Dog Vendor - 02/25/2022 15:28 EDT Narrative Progress Note Narrative Progress Note : Cont to follow for DCP. Pt able to again be extubated today, now on bipap, some tachypenia. Off insulin gtt, now on sliding scale w/ feeds. Nutrition via NG, turned off now, will resume tonight. Cr 33.3 w/ cont nonoliguric urine output w/ decreased volume s/p additional lasix. Concern for possible Vanco toxicity, cont to hold vanc and monitor strict I & O, cont zosyn. Wound vac in place on L hip. No family at bedside, discussed w/ bedside PRIMO Conroy. Pt remains critically ill. Will need acute rehab plcmt at [facility]. CM will cont to follow. Historical Progress Note : Covering today for DCP. [...] kenne pt's emergency contact to her son/BAUDILIO YOO Jorge Alberto. Pt is longstanding parapalegic and family feel she will need rehab at [facility], but do plan on bring pt to live w/ them after rehab. Unfortunately pt only has [employer] Medicaid so sub-acute/SNF rehab highly unlkely, will need acute rehab such as [facility]. CM will cont to follow. INPT HIGH EMIL ELLISON, Hot Dog Vendor - 02/24/22 15:30:35 61yo female admitted from [facility] after cardiac arrist. The pt was at [facility] after her sister found her at home [...] Rushing RN - 02/22/22 16:17:03 EMIL ELLISON, Hot Dog Vendor - 02/25/2022 15:28 EDT Electronically signed by Sumaya [facility] Conversion Education Coordinator Sohaner at 12/21/2022 5:03 PM CDT documented in this encounter Plan of Treatment Not on file documented as of this encounter Visit Diagnoses Not on filedocumented in this encounter
--- OUTSIDE RECORDS SUMMARY | 2025-02-21 13:36 | XMS_ITS | Encounter Summary ---
Author Organization [employer] Address [address] [place] [address] Care Team Providers Care Gasket Maker Name Role Phone Unavailable Primary Care Provider Unavailabl e Encounter Details Date Type Department Care Team (Late st Contact Info) Description 04/14/2022 Transcribed Document [facility] [place] Family Medicine [address] [place] [address] ProviderFlorentino MD [address] [place] [address] Social History Tobacco Use Types [...] Historical ProviderMD - 04/14/2022 5:00 AM CDT Chart Check - Review Order Profile Entered On: 04/14/2022 4:33 EDT Performed On: 04/14/2022 5:00 EDT by Hebert Barker RN Chart Check Powerplans Initiated/Discontinued as Appropriate : Yes All Active Orders Reviewed : Yes Hebert Barker RN - 04/14/2022 4:33 EDT Electronically signed by Sumaya [facility] Conversion Operating Room Surgical Technologist Cerner at 12/21/2022 5:11 PM CDT documented in this encounter Plan of Treatment Not on file documented as of this encounter Visit Diagnoses Not on filedocumented in this encounter
--- OUTSIDE RECORDS SUMMARY | 2025-02-21 13:36 | XMS_ITS | Encounter Summary ---
Author Organization [employer] Address [address] [place] [address] Care Team Providers Care Turner And Former Automatic Name Role Phone Unavailable Primary Care Provider Unavailabl e Encounter Details Date Type Department Care Team (Late st Contact Info) Description 2022 Transcribed Document [facility] [place] [address] [place] [address] ProviderFlorentino MD [address] [place] [address] Social History Tobacco Use Types Packs/Day Years Used Date Smoking Tobacco: Never Assessed Comments Unknown Sex and Gender Information Value Date Recorded Sex Assigned at Not on file Legal Sex Female 1:44 PM CDT Gender Identity Not on file Sexual Orientation Not on file documented as of this encounter Miscellaneous Notes * Cerner Conversion Note - Florentino ProviderMD - 2022 12:26 AM CDT Admission History, Adult Entered On: 2022 4:36 EDT Performed On: 2022 4:36 EDT by Arturo Godoy RN Advance Directive Patient has Advance Directive *Q : No, patient refuses Advance Directive information Arturo Godoy RN - 2022 4:21 EDT Anesthesia/Transfusion History Family History of Anesthesia Reaction : Unknown Transfusion History : Unknown Family History of Anesthesia Reaction : Unknown Arturo Godoy RN - 2022 4:21 EDT Functional Assessment Living Situation : Home ALANIZ Hx Falls Immediate/Within 3 Months : No Current Home Treatments : BiPAP, Blood glucose monitoring Arturo Godoy RN - 2022 4:21 EDT General Info Mode of Arrival on Unit : Wheelchair Legal Guardian : Son Legal Guardian : No Contact Password : 1820 Want Family/Rep/Phys Notified of Admit : No Emergency Contact #1 : FREDO Emergency Contact #1 Phone Number : [phone] Emergency Contact #1 Relationship : Son Emergency Contact #2 : * Emergency Contact #2 Phone Number : * Emergency Contact #2 Relationship : * Chief Complaint : pt presents to ER c/o hypotension, elevated glucose. states she was recently admitted for sepsis. has wound to L buttock w/ wound vac. bp 86/41 on arrival. Information Obtained From : Patient Primary Language : Syrian Communication Barrier : None Professional Healthcare Representative Needed : No Arturo Godoy RN - 2022 4:21 EDT Fall Risk Scales ABCs Fall Injury Risk Identification : Age, Bones, Coagulation ABC Fall Injury Risk : Moderate to high injury risk ALANIZ Hx Falls Immediate/Within 3 Months : No Rodriguez Secondary Diagnosis : Yes ALANIZ Use of Ambulatory Aid : Bed rest/Nurse assist ALANIZ IV Therapy or IV Access : Yes Rodriguez Gait/Transferring : Impaired Rodriguez Mental Status : Oriented to own ability Alaniz Fall Risk Score : 55 ALANIZ Fall Scale Risk Level : 46 or > High Risk [place] Fall Interventions : Adequate lighting, Assistive devices within reach, Bed in low position, Call device within reach, Fall prevention handout/education per facility policy, Frequent orientation to call device, Frequent orientation to surroundings, Hourly comfort/safety rounds, Non-slip footwear, Personal items within reach, Reinforced to call for assistance before getting out of bed, Room free of clutter/spills, Upper side-rails up, Wheels locked, Wires/Cords secured Arturo Godoy RN - 2022 4:21 EDT Health Histories Smoking Status : Never (less than 100 in lifetime; none in last 30 days) Smokeless Tobacco Status : Never Arturo Godoy RN - 2022 4:21 EDT Social History (As Of: 2022 04:36:17 EDT) Height and Weight, Clinical Dosing Height Source : Stated Height Entry Format : [place] Height, Feet : 5 ft(Converted to: 152 cm, 60 Inch) Height, Inches : 6 Inch(Converted to: 0 ft 6 Inch, 15.24 cm) Clinical Height : 167.64 cm Weight Source : Stated [place] Body Weight : 59 kg Arturo Godoy RN - 2022 4:21 EDT Infectious Disease History Does patient have symptoms of COVID-19? : No Tested for COVID19 in the past 14 days : No, Patient stated Does the Patient state known exposure to a COVID-19 positive case in the last 14 days? : No Patient Vaccinated for COVID-19 : Fully vaccinated Arturo Godoy RN - 2022 4:21 EDT Infectious Disease Risk Screening Grid Cough < 2 wks of unknown origin : NO Cough > 2 weeks : NO Blood in Sputum : NO Fever or self-reported Fever : NO Rash of unknown origin : NO Headache : NO Stiff neck : NO Night Sweats : NO Unexplained Weight Loss : NO Diarrhea (3 episode per day) : NO Arturo Godoy RN - 2022 4:21 EDT Physical contact outside [place] in the last 30 days : No Hospitalized in Foreign Country : No Infectious Disease History : Unable to assess INF Disease TB Screening Calc : 0 INF Disease Recent Travel Calc : 0 Arturo Godoy RN - 2022 4:21 EDT Influenza Vaccine Asmt, Adult Previous Vaccines from Immunization Schedule : No qualifying data available. Influenza Immunization, Current Season : Yes Arturo Godoy RN - 2022 4:21 EDT Pneumococcal Vaccine Previous Vaccines from Immunization Schedule : No qualifying data available. Pneumonia Immunization Received : Yes Arturo Godoy RN - 2022 4:21 EDT Order Details Patient Needs Meds Crushed/Liquid : No Arturo Godoy RN - 2022 4:21 EDT Nutrition History Eating Poorly Due to Decreased Appetite : No Unplanned Weight Loss in Past 3-6 Months : No Malnutrition Screening Tool Total(mal) : 0 Malnutrition Screening Tool Risk Level : Patient not at risk Arturo Godoy RN - 2022 4:21 EDT [place] Suicide Severity Rating Scale (C-SSRS) CSSRS Past Month Wish to be : No CSSRS Past Month Suicidal Thoughts : No CSSRS Lifetime Suicide Behavior : No Suicide Severity Rating Score : 0 Suicide Severity Rating : No Additional Care Required at this time Arturo Godoy RN - 2022 4:21 EDT Psychosocial History Currently in Unsafe Situation : No Arturo Godoy RN - 2022 4:21 EDT Sleep Apnea Risk Assmt BiPAP/CPAP Ordered for Home Use : Yes Hx of Obstructive Sleep Apnea Diagnosis : Yes BiPAP/CPAP Used at Home : Yes Age over 50 Years Old : Yes Gender Male : No Arturo Godoy RN - 2022 4:21 EDT Valuables and Belongings Valuables and Belongings : Clothing, Personal devices, No comfort items, No jewelry, No personal items, No assistive devices, No respiratory devices, No medications Clothing : Common streetwear Clothing Disposition : Bedside Personal Device Disposition : Bedside, With patient Personal Devices : Glasses Arturo Godoy RN - 2022 4:21 EDT documented in this encounter Plan of Treatment Not on file documented as of this encounter Visit Diagnoses Not on filedocumented in this encounter
--- OUTSIDE RECORDS SUMMARY | 2025-02-21 13:36 | XMS_ITS | Encounter Summary ---
Author Organization [employer] Address [address] [place] [address] Care Team Providers Care Outsole Rounder Name Role Phone Unavailable Primary Care Provider Unavailabl e Encounter Details Date Type Department Care Team (Late st Contact Info) Description 02/25/2022 Transcribed Document [facility] [place] Family Medicine [address] [place] [address] ProviderFlorentino MD [address] [place] [address] Social History Tobacco Use Types Packs/Day Years Used Date Smoking Tobacco: Never Assessed Comments Unknown Sex and Gender Information Value Date Recorded Sex Assigned at Not on file Legal Sex Female 1:44 PM CDT Gender Identity Not on file Sexual Orientation Not on file documented as of this encounter Miscellaneous Notes * Cerner Conversion Note - Historical ProviderMD - 02/25/2022 8:32 AM CDT Attempt to Treat, OT Entered On: 02/25/2022 12:48 EDT Performed On: 02/25/2022 8:32 EDT by ZAYRA FLEMING OTR/[place] Attempt to Treat Unable to Treat Due To : Patient on hold Inability to Treat Comment : pt on hold secondary intubated/sedated . not appropriate at this time. OT to discontinue order, will need new order when pt is appropriate ZAYRA FLEMING OTR/[place] - 02/25/2022 12:48 EDT documented in this encounter Plan of Treatment Not on file documented as of this encounter Visit Diagnoses Not on filedocumented in this encounter
--- OUTSIDE RECORDS SUMMARY | 2025-02-21 13:36 | XMS_ITS | Encounter Summary ---
Author Organization [employer] Address [address] [place] [address] Care Team Providers Care Credit Risk Management Director Name Role Phone Unavailable Primary Care Provider Unavailabl e Encounter Details Date Type Department Care Team (Late st Contact Info) Description 02/24/2022 Transcribed Document [facility] [place] Family Medicine [facility] [place] [address] ProviderFlorentino MD [facility] [place] [address] Social History Tobacco Use Types Packs/Day Years Used Date Smoking Tobacco: Never Assessed Comments Unknown Sex and Gender Information Value Date Recorded Sex Assigned at Not on file Legal Sex Female 1:44 PM CDT Gender Identity Not on file Sexual Orientation Not on file documented as of this encounter Miscellaneous Notes * Cerner Conversion Note - Florentino Lynne MD - 02/24/2022 2:43 PM CDT [facility] Inpatient Documentation Entered On: 02/24/2022 14:49 EDT Performed On: 02/24/2022 14:43 EDT by Dory Helms Rn [facility] Admission Date : Admit Date 02/22/2022 00:[address] : Diagnosis (5) Cardiac arrest, cause unspecified Pneumonia, unspecified organism Acute kidney failure, unspecified Severe sepsis with septic shock 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 Leakage noted underside of pouch. removal of old pouch revealed reddened and macerated periskin. [facility] RN cleansed site with warm water. Educated primary RN and trainee on crusting technique to help protect the periskin. Applied barrier paste and new pouch. Reconnected pouch to urinary catheter collection device. Dory Helms Rn - 02/24/2022 14:43 EDT Teaching/Learning Assessment Barriers To Learning : Acuity of Illness Dory Helms Rn - 02/24/2022 14:43 EDT Wound & Pressure Ulcer WOCN Wound Pressure Ulcer Documentation : Pressure Ulcer Assessment: Hip Left on 02/24/2022 11:10 by Dory Helms Rn Present on Adm to Hosp: Yes Stage: Stage 3 Device Related: Unknown Dressing Status: Clean, Dry, Intact Dressing Activity: Assessed, Dressing changed Date of Dressing Change: :[id number]:0:0 Wound Bed Description: Granulation (beefy red), Granulation (pale red), Slough (soft yellow or hale), Undermining Bed Color(s): Brown, Pale [place], Red, Yellow Wound Edge: Not Attached Surrounding Tissue: Intact Length: 7.0 Width: 15.0 Depth: 2.0 Undermining Location/Distance, PU: 9 o clock with a depth of 3cm, to 1 oclock w/depth at 2cm. Drainage Amount: None Photographed: Yes Cleansing/Irrigation: Irrigated with sterile saline Skin Treatment: Barrier film Dressing Type/Treatment: NPWT NPWT (PU) Activity: Initial set-up application NPWT (PU) Inpatient Start Date: :0.243356:0:0 NPWT (PU) Device used: Renasys Type of Foam or Gauze Applied (PU): Black Foam Number of Black Foam Applied (PU): 1 Number of TRAC Pads Applied (PU): 1 NPWT (PU) Pressure: Continuous NPWT (PU) Pressure Settin NPWT (PU) Canister Changed: No NPWT (PU) Canister Level: 0 WOCN Ostomy Documentation : No ostomy assessments reported. Dory Helms Rn - 02/24/2022 14:43 EDT documented in this encounter Plan of Treatment Not on file documented as of this encounter Visit Diagnoses Not on filedocumented in this encounter
--- OUTSIDE RECORDS SUMMARY | 2025-02-21 13:36 | XMS_ITS | Encounter Summary ---
Author Organization [facility] Address [address] [place] [address] Care Team Providers Care Information Assurance Engineer Name Role Phone Unavailable Primary Care Provider Unavailabl e Encounter Details Date Type Department Care Team (Late st Contact Info) Description 04/30/2022 Transcribed Document [facility] [place] Family Medicine [address] [place] [address] ProviderFlorentino MD [address] [place] [address] Social History Tobacco Use Types Packs/Day Years Used Date Smoking Tobacco: Never Assessed Comments Unknown Sex and Gender Information Value Date Recorded Sex Assigned at Not on file Legal Sex Female 1:44 PM CDT Gender Identity Not on file Sexual Orientation Not on file documented as of this encounter Miscellaneous Notes * Cerner Conversion Note - Florentino ProviderMD - 04/30/2022 11:26 AM CDT Evaluation, Physical Therapy Entered On: 05/01/2022 16:34 EDT Performed On: 05/01/2022 11:30 EDT by BOBBY HERNANDEZ, RONALD General Information, PT Visit Type, PT : Initial evaluation Patient Orders : Order Date Order Ordering 04/30/2022 11:26 Physical Therapy Eval and Treat Ordered By: MICHELLE LORA MD-INT 05/01/2022 11:32 Consult to Physical Therapy Ordered By: MICHELLE LORA MD-INT Active Diagnoses : 2022 02:25 Pressure ulcer of unspecified buttock, unspecified stage 2022 01:57 Chronic kidney disease, stage 3 unspecified 2022 01:56 Other symptoms and signs involving the genitourinary system 04/28/2022 12:00 Hypotension, unspecified 04/28/2022 12:00 Type 2 diabetes mellitus without complications Therapy Diagnosis, PT : L greater trochanter wound Onset of Problem, PT : 2022 EDT Admission Date : 2022 00:16 Personal Devices : Personal Devices Glasses Assistive Devices : Assistive Devices No Devices Recorded BOBBY HERNANDEZ, PT - 05/01/2022 16:21 EDT General Status Patient Received Status : Supine in bed Treatment Start Time : 05/01/2022 10:33 EDT Patient Left Status : Supine in bed, Communication board completed, All needs met and within reach Treatment End Time : 05/01/2022 11:30 EDT Treatment Time : 57 Minute(s) BOBBY HERNANDEZ, PT - 05/01/2022 16:21 EDT Functional Mobility Mobility Grid Bed Roll Left : Rehab Maximal assistance Bed Roll Right : Rehab Maximal assistance BOBBY HERNANDEZ, PT - 05/01/2022 16:21 EDT Edu Topics Physical Therapy Education Grid Wound Care : Verbalizes understanding BOBBY HERNANDEZ PT - 05/01/2022 16:21 EDT Indication Assesessment, PT Physical Therapy Indicated : Yes BOBBY HERNANDEZ, PT - 05/01/2022 16:21 EDT Plan of Care, PT PT Tx Plan/Goals Established w Patient : Yes BOBBY HERNANDEZ PT - 05/01/2022 16:21 EDT [facility] Goals Mobility/Bed Mobility LTG PT Grid Goal #1 Comment : see below BOBBY HERNANDEZ PT - 05/01/2022 16:21 EDT Other PT LTG Grid Goal #1 Other : Patient's L greater trochanter wound will be 100% closed and blanchable with normalized skin texture and color Date to Meet : 05/15/2022 EDT Goal Status : Initial goal BOBBY HERNANDEZ PT - 05/01/2022 16:21 EDT Treatment Note Subjective Comment : RN and pt ok'd PTx Additional Objective Information : Pt supine, rolled to R side. Patient's L greater trochanter wound measures 10 x 6.6 x .1 and displays red granulation tissue throughout, however wound with small area 100% slough covered area 2.4 cm deep in center of wound bed. PT able to debride moderate slough with sharp debridement kit. Wound edges with bio film, PT able to debride biofilm. PT applied mist per machine protocol. uriah applied to granulating areas and areas covered with foam dressing. Assessment : Patient would benefit from continued mist therapy to ensure continued and complete healing. Mist recommended until full, even healing occurs and wounds appears blanchable. Plan for Treatment : Continue POC BOBBY HERNANDEZ, PT - 05/01/2022 16:21 EDT Pain Assessment Pain Scaled Used : 0-10 Pain scale Pain Score Pre-Intervention : 0 BOBBY HERNANDEZ, PT - 05/01/2022 16:21 EDT Image 1 - Images currently included in the form version of this document have not been included in the text rendition version of the form. Anticipated Discharge Needs, OT/PT Recommend Continued Therapy at Discharge : Yes BOBBY HERNANDEZ, PT - 05/01/2022 16:21 EDT [place] PT Charges Debridement Less Than/Equal 20cm2 : 1 PT Debridement Each Add'l?? 20cm2 : 1 Mist Therapy : 1 PT Eval Moderate Complexity : 1 BOBBY HERNANDEZ, PT - 05/01/2022 16:21 EDT documented in this encounter Plan of Treatment Not on file documented as of this encounter Visit Diagnoses Not on filedocumented in this encounter
--- OUTSIDE RECORDS SUMMARY | 2025-02-21 13:36 | XMS_ITS | Encounter Summary ---
Author Organization [employer] Address [address] [place] [address] Care Team Providers Care Marine Fireman Name Role Phone Unavailable Primary Care Provider Unavailabl e Encounter Details Date Type Department Care Team (Late st Contact Info) Description 04/14/2022 Transcribed Document [facility] Family Medicine [address] [place] [address] ProviderFlorentino MD [address] [place] [address] Social History Tobacco Use Types Packs/Day Years Used Date Smoking Tobacco: Never Assessed Comments Unknown Sex and Gender Information Value Date Recorded Sex Assigned at Not on file Legal Sex Female 1:44 PM CDT Gender Identity Not on file Sexual Orientation Not on file documented as of this encounter Miscellaneous Notes * Cerner Conversion Note - Florentino ProviderMD - 04/14/2022 9:32 AM CDT Discharge Summary, HOSPITAL ADMISSIONS CLERK Entered On: 04/14/2022 9:33 EDT Performed On: 04/14/2022 9:32 EDT by SHANNAN SINGH, HOSPITAL ADMISSIONS CLERK Discharge Notation. HOSPITAL ADMISSIONS CLERK Dysphagia Treatment After Discharge : No Discharge Diet : Regular Discharge Liquids : Thin Discharge Silent Aspiration : No Repeat Instrumental Prior To : Not applicable Discharge Summary Comment, HOSPITAL ADMISSIONS CLERK : FEES completed. Patient ready for a regular diet. No further ST. SHANNAN SINGH SLP - 04/14/2022 9:32 EDT Swallow Plan/Goals Swallow LTG Grid HOSPITAL ADMISSIONS CLERK Buckle Strap Puncher Goal #1 HOSPITAL ADMISSIONS CLERK Fdc Goal #2 Swallow LTG : Establish safe oral diet without aspiration Other: Pt goal: I want to go home Status : Goal met Date Met : 04/14/2022 EDT SHANNAN SINGH SLP - 04/14/2022 9:32 EDT SHANNAN SINGH SLP - 04/14/2022 9:32 EDT Swallow Goals Grid Goal #1 Swallow STG : Other: FEES Related To : Measurement by repeat instrumental exam Date to Meet : 04/14/2022 EDT Status : Goal met Date Met : 04/14/2022 EDT SHANNAN SINGH, HOSPITAL ADMISSIONS CLERK - 04/14/2022 9:32 EDT Electronically signed by [facility] Conversion Editor House Organ Cerner at 12/21/2022 5:06 PM CDT documented in this encounter Plan of Treatment Not on file documented as of this encounter Visit Diagnoses Not on filedocumented in this encounter
--- OUTSIDE RECORDS SUMMARY | 2025-02-21 13:36 | XMS_ITS | Encounter Summary ---
Author Organization [employer] Address [address] [place] [address] Care Team Providers Care Statistical Modeler Name Role Phone Unavailable Primary Care Provider Unavailabl e Encounter Details Date Type Department Care Team (Late st Contact Info) Description 02/25/2022 Transcribed Document [facility] [address] [place] [address] ProviderFlorentino MD [address] [place] [address] Social History Tobacco Use Types Packs/Day Years Used Date Smoking Tobacco: Never Assessed Comments Unknown Sex and Gender Information Value Date Recorded Sex Assigned at Not on file Legal Sex Female 1:44 PM CDT Gender Identity Not on file Sexual Orientation Not on file documented as of this encounter Miscellaneous Notes * Cerner Conversion Note - Florentino Lynne MD - 02/25/2022 10:33 AM CDT Patient: ALYSSA AZUL Age: 61 years Sex: Female : 1960 Associated Diagnoses: None Author: JOHN WOODS MD-PUL Basic Information cc: respiratory failure History of Present Illness Patient is a 61 year old female transferred from the osh with respiratory arrest requiring intubation. She has a long history of paraplegia and presented to the OSH with L hip decub and LLL pneumonia. She had debridement x 2. 02/20 post procedure she had cardiac arrest and was transferred to [facility] [place]. This morning she was on the ventilator alert, awake without shortness of breath. Tolerated PS. Continues to have metabolic acidosis. ID consulted for sepsis. Nephrology consulted for acute-chronic renal failure. Poor UOP today. Hypotensive earlier on levophed, but this has since been stopped. She denies hip pain. + cough, mild anxiety. + edema. 02/23: re-intubated due to wob yesterday evening. Acid base much improved. Good UOP response with diuretic. UOP has now maintained adequately. Na status improving. 02/24: attempted sbt this morning, but RR increases and TV is marginal. 02/25: tolerating sbt for past several hours. Denies sob. Mild incr in RR and drop in TV but patient appears comfortable. Trach over 20 years ago. Health Status Allergies: Allergic Reactions (Selected) No Known Allergies, Allergies (1) Active Reaction No Known Allergies None Documented Current medications: (Selected) Inpatient Medications Ordered Chloraseptic Menthol 1.4% topical spray: 1 [place], Oral, Q2H, PRN: Sore Throat Dextrose 50% injection: 12.5 Gram, IV Push, Q15Min, PRN: Other (See Comment) Dextrose 50% injection: 25 Gram, IV Push, Q15Min, PRN: Other (See Comment) Insulin regular injection 100 Units + Sodium Chloride 0.9% intravenous solution 100 mL: Corrective Insulin Drip, IntraVENous Normal Saline Flush: 10 mL, IV Push, Q12H Normal Saline Flush: 10 mL, IV Push, See Comment, PRN: IV Use Zosyn + Sodium Chloride 0.9% intravenous solution 50 mL: 2.25 Gram, 16.67 mL/Hr, IV Piggyback, Q8HInt acetaminophen: 650 mg, Oral, Q6H, PRN: Pain (Mild 1-3) albuterol 2.5 mg/3 mL (0.083%) inhalation solution: 3 mL, Nebulized Inhalation, RT_Q4H, PRN: Shortness of Breath albuterol-ipratropium 2.5 mg-0.5 mg/3 mL inhalation solution: 3 mL, Nebulized Inhalation, RT_Q4H bisoprolol: 5 mg, Oral, Daily dexmedeTOMIDine injection 400 mcg + NaCl 0.9% for drip 100 mL: TITRATE, IntraVENous fentaNYL: 50 mcg, IV Push, Q2H, PRN: Pain glucagon: 1 mg, IntraMuscular, Q15Min, PRN: Other (See Comment) glucose 4 g oral tablet, chewable: 16 Gram, 4 Tab, Chew, Q15Min, PRN: Other (See Comment) glucose 40% oral gel: 15 Gram, 37.5 mL, Oral, Q15Min, PRN: Other (See Comment) hydrALAZINE: 10 mg, IV Push, Q6H, PRN: Hypertension ondansetron: 4 mg, IV Push, Q6H, PRN: Nausea/Vomiting pantoprazole: 40 mg, IV Push, Daily potassium bicarbonate 20 mEq oral tablet, effervescent: 20 mEq, 1 Tab, Oral, 1-Time sodium bicarbonate 650 mg oral tablet: 650 mg, 1 Tab, Oral, TID traMADol: 50 mg, Oral, Q6H, PRN: Pain (Moderate 4-6) Documented Medications Documented [place]-3 1000 mg oral capsule: 1 Cap, Oral, QID, 0 Refill(s) alendronate weekly: 70 mg, Oral, Weekly, 0 Refill(s) bisoprolol 5 mg oral tablet: 1 Tab, Oral, Daily, 0 Refill(s) dapagliflozin 10 mg oral tablet: 1 Tab, Oral, Daily, 0 Refill(s) ferrous sulfate 325 mg (65 mg elemental iron) oral tablet: 1 Tab, Oral, BID, 0 Refill(s) furosemide 40 mg oral tablet: 1 Tab, Oral, Daily, 0 Refill(s) lisinopril 40 mg oral tablet: 1 Tab, Oral, Daily, 30 Tab, 0 Refill(s) metFORMIN 1000 mg oral tablet: 1 Tab, Oral, BID With Meals, 0 Refill(s) pravastatin 40 mg oral tablet: 1 Tab, Oral, Daily, 0 Refill(s), Medications (22) Active Scheduled: (7) #NaCl 0.9% *FLUSH* inj 10 mL 10 mL, IV Push, Q12H albuterol-ipratropium inh 3 mL 3 mL, Nebulized Inhalation, RT_Q4H bisoprolol 5 mg tab 5 mg 1 Tab, Oral, Daily pantoprazole 40 mg inj 40 mg, IV Push, Daily piperacillin-tazobactam + NaCl 0.9% *MBP* 50 mL 2.25 Gram, IV Piggyback, Q8HInt potassium bicarb efferves 20 mEq dis tab 20 mEq 1 Tab, Oral, 1-Time sodium bicarbonate 650 mg tab 650 mg 1 Tab, Oral, TID Continuous: (2) dexmedeTOMIDine 400 mcg + NaCl 0.9% TITRATE 100 mL 100 mL, IntraVENous insulin regular 100 Units + NaCl 0.9% 100 mL 100 mL, IntraVENous PRN: (13) #NaCl 0.9% *FLUSH* inj 10 mL 10 mL, IV Push, See Comment acetaminophen 325 mg tab 650 mg 2 Tab, Oral, Q6H albuterol 0.083% inh soln 3 mL 3 mL, Nebulized Inhalation, RT_Q4H dextrose 50% 25 g/50 mL inj syr 25 Gram 50 mL, IV Push, Q15Min dextrose 50% 25 g/50 mL inj syr 12.5 Gram 25 mL, IV Push, Q15Min fentaNYL 100 mcg/2 mL inj 50 mcg 1 mL, IV Push, Q2H glucagon 1 mg/1 mL inj 1 mg 1 mL, IntraMuscular, Q15Min glucose 4 g tab 16 Gram 4 Tab, Chew, Q15Min glucose 40% gel 15 g 15 Gram 37.5 mL, Oral, Q15Min hydrALAZINE 20 mg/1 mL inj 10 mg 0.5 mL, IV Push, Q6H ondansetron 4 mg/2 mL inj 4 mg 2 mL, IV Push, Q6H phenol 1.4% throat spray 1 [place], Oral, Q2H traMADol 50 mg tab 50 mg 1 Tab, Oral, Q6H Problem list: Medical History of obstructive sleep apnea / IMO [id number] / Confirmed, Active Problems (1) History of obstructive sleep apnea Histories Past Medical History: No active or resolved past medical history items have been selected or recorded. Family History: No family history items have been selected or recorded. Procedure history: No active procedure history items have been selected or recorded. Social History Social & Psychosocial Habits No Data Available . Physical Examination Intake & Output Totals Last 24 Hours [...] 25 08:38) 100 (FEB 24 13:30) General: Alert and oriented, No acute distress, intubated. Eye: Pupils are equal, round and reactive to light, Normal conjunctiva. HENT: Normocephalic, Oral mucosa is moist. Neck: Supple, Non-tender. Respiratory: Respirations are non-labored, Breath sounds are equal, coarse bs bilat. Cardiovascular: Normal rate, Regular rhythm, increasing le edema bilat. Gastrointestinal: Soft, Non-tender, Non-distended, Normal bowel sounds. Musculoskeletal: Normal range of motion, Normal strength, No tenderness, contractures. Integumentary: Warm, Dry, [place], No rash. Neurologic: Alert, paraplegia, bilat upper ext weakness, nods head appropriately. Psychiatric: Cooperative. Review / Management FEB 25 03:10 146 110 H 48 / H 178 L 3.4 L 20 H 3.28 \ FEB 25 03:10 \ L 8.3 / H 10.4 246 / L 25.5 \ Blood Gases (Current Encounter/Past 24 Hours) pH Art 7.42 02/25/2022 05:49 pCO2 Art 28.2 LOW 02/25/2022 05:52 pO2 Art 78.4 LOW 02/25/2022 05:52 HCO3 Art 17.9 LOW 02/25/2022 05:52 BE Art -5.3 LOW 02/25/2022 05:52 sO2 Art 95.1 02/25/2022 05:49 tHb Art 8.7 LOW 02/25/2022 05:52 ctO2 11.5 NA 02/25/2022 05:49 FIO2 Art 35.0 NA 02/25/2022 05:49 Delivery Device Type Art Ventilator 02/25/2022 05:49 Temperature, F Art 98.6 NA 02/25/2022 05:49 Art Blood Gas (ABG) Site Left Radial 02/25/2022 05:49 Acceptable Huang's Test Art Acceptable 02/25/2022 05:49 Ventilator Mode Art Assist Control Ventilation 02/25/2022 05:49 Tidal Volume Set Art 400.0 NA 02/25/2022 05:49 Set Rate Art 16 NA 02/25/2022 05:49 Respiratory Rate Art 21.0 NA 02/25/2022 05:49 CPAP/PEEP Art 5.0 NA 02/25/2022 05:49 ABG Num of Draw Attempts 2 NA 02/25/2022 05:49 PaO2/FiO2 calculated 224 NA 02/25/2022 05:49 CMP Results (Current Encounter/Past 24 Hours) Protein Total 5.4 Gram/dL LOW 02/24/2022 03:59 A/G Ratio 0.5 LOW 02/24/2022 03:59 Creatinine Level 3.28 mg/dL [place] 02/25/2022 03:38 eGFR 17 mL/min/1.73m2 LOW 02/25/2022 03:38 Globulin 3.7 Gram/dL 02/24/2022 03:59 eGFR NonAfrican 14 mL/min/1.73m2 LOW 02/25/2022 03:38 Bun/Creatinine 14.6 02/25/2022 03:38 Sodium Level 146 mmol/L 02/25/2022 03:38 Potassium Level 3.4 mmol/L LOW 02/25/2022 03:38 Chloride Level 110 mmol/L 02/25/2022 03:38 Carbon Dioxide Level 20 mmol/L LOW 02/25/2022 03:38 Anion Gap 19 02/25/2022 03:38 Alk Phos 49 Units/Liter 02/24/2022 03:59 ALT 16 Units/Liter 02/24/2022 03:59 AST 13 Units/Liter 02/24/2022 03:59 Blood Urea Nitrogen 48 mg/dL HI 02/25/2022 03:38 Glucose Level 178 mg/dL HI 02/25/2022 03:38 Albumin Level 1.7 Gram/dL LOW 02/24/2022 03:59 Bilirubin Total 0.4 mg/dL 02/24/2022 03:59 Calcium Level 8.1 mg/dL LOW 02/25/2022 03:38 Magnesium Level 2.4 mg/dL 02/24/2022 03:55 Cardiac Markers (Current Encounter/Past 24 Hours) No Cardiac Marker Results Found (Past 24 Hours) Coagulation Results (Current Encounter/Past 24 Hours) No Coagulation Results Found (Past 24 Hours) Radiology Results (Last 48 hours) [id number] -- 02/22/2022 00:01 CR Abdomen 1 Vw [...] agree with the above final transcribed report. Results review: Labs (Last four charted values) WBC H 10.4 (FEB 25) 8.9 (FEB 24) 6.5 (FEB 23) 8.9 (CATRACHITA 25) HB L 8.3 (CATRACHITA [...] 1.9 (CATRACHITA 26) L 1.9 (CATRACHITA 24) . Impression and Plan cardiopulmonary arrest secondary to metabolic acidosis and respiratory failure - improved. neuro status returned to baseline Acute respiratory failure - MV D#4, repeat SBT in progress. Waiting for ABG. Anticipate extubation. Appears to have bilat pleural effusions. If unable to extubate, may need to evaluate for tap. Sepsis, septic shock - resolved Acute - chronic renal failure - Cr increased from baseline, but appears to be stabilizing. Nephrology following. Acute metabolic acidsois - Much improved, bicarb drifting down again. Added po bicarb Acute anemia - no active bleeding. s/p 1unit PRBC 02/23. Hbg remaining stable Hypernatremia, hyperchloremia - improved, decrease free water LLL pneumonia - continue HHN, ID consulted for abx. Continue to hold vanc. discussed with RT, add CPT bilat Left hip decub - wound vac placed. Abx per ID. DM - swtiched to insulin SSI, lantus added because insulin gtt restarted yesterday afternoon HTN - bp rx on hold, prn hydralazine hyperlipidemia paraplegia Full code Started tube feeds 02/23, nutrition following GI ppx - started on PPI DVT ppx - started on heparin sq 45 min CCT Discussed with nursing, RT. documented in this encounter Plan of Treatment Not on file documented as of this encounter Visit Diagnoses Not on filedocumented in this encounter
--- OUTSIDE RECORDS SUMMARY | 2025-02-21 13:36 | XMS_ITS | Encounter Summary ---
Author Organization [facility] Address [address] [place] [address] Care Team Providers Care Felled Seam Operator Chainstitch Name Role Phone Unavailable Primary Care Provider Unavailabl e Encounter Details Date Type Department Care Team (Late st Contact Info) Description 2022 Transcribed Document [facility] Family Medicine [address] [place] [address] ProviderFlorentino MD [address] [place] [address] Social History Tobacco Use Types Packs/Day Years Used Date Smoking Tobacco: Never Assessed Comments Unknown Sex and Gender Information Value Date Recorded Sex Assigned at Not on file Legal Sex Female 1:44 PM CDT Gender Identity Not on file Sexual Orientation Not on file documented as of this encounter Miscellaneous Notes * Cerner Conversion Note - Florentino Lynne MD - 2022 12:00 PM CDT UM Authorization Entered On: 2022 12:02 EDT Performed On: 2022 12:00 EDT by SARAH MORALES RN Primary Insurance Authorization Authorization and Policy Numbers : Insurance 1 Health Plan: [facility] Policy Number: [id number] Authorization Number: Insurance 2 Health Plan: MEDICAID [facility] Policy Number: [id number] Authorization Number: Insurance Primary Name : [facility] Policy Number: [id number] Authorization Status-Primary : Awaiting callback Authorized Service Begin Date-Primary : 2022 EDT Historical Authorization Comments-Primary : Comment 1: Faxed initial clinicals via [employer]. (SARAH MORALES RN 2022 11:46) SARAH MORALES RN - 2022 12:00 EDT Secondary Insurance Authorization Authorization and Policy Numbers : Insurance 1 Health Plan: [employer] [facility] Policy Number: [id number] Authorization Number: Insurance 2 Health Plan: [place] Policy Number: [id number] Authorization Number: Insurance Secondary Name : [place] Policy Number: [id number] Authorization Status-Secondary : Awaiting callback Reference Number-Secondary : [id number] Authorization Comments-Secondary : Obtained ref # from Rachel with [place] Medicaid. Historical Authorization Comments-Secondary : No Authorization Comments Found SARAH MORALES RN - 2022 12:00 EDT documented in this encounter Plan of Treatment Not on file documented as of this encounter Visit Diagnoses Not on filedocumented in this encounter
--- OUTSIDE RECORDS SUMMARY | 2025-02-21 13:36 | XMS_ITS | Encounter Summary ---
Author Organization [employer] Address [address] [place] [address] Care Team Providers Care Counter Caser Name Role Phone Unavailable Primary Care Provider Unavailabl e Encounter Details Date Type Department Care Team (Late st Contact Info) Description 04/14/2022 Transcribed Document [facility] [address] [place] [address] ProviderFlorentino MD [address] [place], [place] [id number] Social History Tobacco Use Types Packs/Day Years Used Date Smoking Tobacco: Never Assessed Comments Unknown Sex and Gender Information Value Date Recorded Sex Assigned at Not on file Legal Sex Female 1:44 PM CDT Gender Identity Not on file Sexual Orientation Not on file documented as of this encounter Miscellaneous Notes * Cerner Conversion Note - Historical ProviderMD - 04/14/2022 2:25 PM CDT Admission Coordinator Note Entered On: 04/14/2022 14:25 EDT Performed On: 04/14/2022 14:25 EDT by Matilde Lemus Clinical Assessment Liaison Admission Coordinator Note Admission Coordinator Note : Received referral for LTACH evaluation. Chart reviewed. Will continue to monitor. Thank you for the referral. Matilde Lemus Clinical Assessment Liaison - 04/14/2022 14:25 EDT documented in this encounter Plan of Treatment Not on file documented as of this encounter Visit Diagnoses Not on filedocumented in this encounter
--- OUTSIDE RECORDS SUMMARY | 2025-02-21 13:36 | XMS_ITS | Encounter Summary ---
Author Organization [employer] Address [address] [place] [address] Care Team Providers Care Chief Nursing Executive Name Role Phone Unavailable Primary Care Provider Unavailabl e Encounter Details Date Type Department Care Team (Late st Contact Info) Description 03/04/2022 Transcribed Document [facility] [place] Family Medicine [address] [place] [address] ProviderFlorentino MD [address] [place] [address] Social History Tobacco Use Types Packs/Day Years Used Date Smoking Tobacco: Never Assessed Comments Unknown Sex and Gender Information Value Date Recorded Sex Assigned at Not on file Legal Sex Female 1:44 PM CDT Gender Identity Not on file Sexual Orientation Not on file documented as of this encounter Miscellaneous Notes * Cerner Conversion Note - Florentino Lynne MD - 03/04/2022 3:50 PM CDT Please Modify Before Signing CLINICAL DOCUMENTATION CLARIFICATION FORM: Dear : _Keyla Date: Please exercise your independent, professional judgment in responding to the clarification form. Clinical indicators are provided on the bottom of this form for your review Please check appropriate box(es): [ x ] Acute Metabolic Encephalopathy [ ] Acute Toxic Encephalopathy [ ] Encephalopathy Other [ ] Unable to determine For continuity of documentation, please document condition throughout progress notes and discharge summary. Thank You. To be completed by CDI/Coding staff for physician review: Present Clinical Indicators - Signs / Symptoms / Labs Results and Location in Medical Record [ x ] Altered mental status / confusion 03/02 ID Consult: Acute encephalopathy: now sedated 03/02 Nsg Neuro assessment: confusion [ x ] Metabolic acidosis 03/01 ABG: pH 7.30, pCO2 53, pO2 72, HCO3 24, SO2 92.3% 03/02 ID consult: Metabolic acidosis improving [ x ] Hypoxia for prolonged period 03/01 Pulm consult: required reintubation on 03/01 for worsening respiratory status and failing BiPAP [ x ] Sepsis/Infectious process 03/01 H&P: septic shock due to pneumonia and sacral decibitus ulcer [x] Electrolyte Imbalance 03/01 Labs: Phos 6.3, Chloride 114, Na+ 148, BUN 58, Cr 2.76, eGFR 17 03/03 Labs: Chloride 116, BUN 54, Cr 2.30, eGFR 22 Present Risk Factors Results and Location in Medical Record [ x ] Severe Sepsis with Shock 03/01 H&P: Septic shock due to PNA and sacral decubitus ulcers [ x ] Organ Failure 03/01 H&P: admit with ARF hypoxia, intubated 03/02 Neph consult: JAVIER - nonoliguric. Likely prerenal azotemia/ ATN secondary to septic shock and cardiac arrest [ x ] Intubation 03/01 Pulm consult: Intubated 02/22, 02/25, and 03/01 Present Treatments Results and Location in Medical Record [ x ] Neuro checks 03/01 Orders: admit to unit with routine neuro checks [ x ] Oxygen therapy 03/01 Orders: Vent 75% 03/03 Orders: Vent decreased to 40% [ x ] Correction of electrolyte imbalances 03/03 Orders: Magnesium Sulfate 2gm IV, 20meq KCL in 1/2NS IVF 1000ml CDS/Frozen Yogurt Maker Signature: _Karina Puri RN, CDS Phone #: _[phone]_ This is a permanent part of the Medical Record Q22 [facility] Updated: [id number] documented in this encounter Plan of Treatment Not on file documented as of this encounter Visit Diagnoses Not on filedocumented in this encounter
--- OUTSIDE RECORDS SUMMARY | 2025-02-21 13:36 | XMS_ITS | Encounter Summary ---
Author Organization [employer] [facility] Address [address] [place] [address] Care Team Providers Care Counter Roller Name Role Phone Unavailable Primary Care Provider Unavailabl e Encounter Details Date Type Department Care Team (Late st Contact Info) Description 04/30/2022 Transcribed Document [facility] [place] [address] [place] [address] ProviderFlorentino MD [address] [place] [address] Social History Tobacco Use Types Packs/Day Years Used Date Smoking Tobacco: Never Assessed Comments Unknown Sex and Gender Information Value Date Recorded Sex Assigned at Not on file Legal Sex Female 1:44 PM CDT Gender Identity Not on file Sexual Orientation Not on file documented as of this encounter Miscellaneous Notes * Cerner Conversion Note - Florentino Lynne MD - 04/30/2022 2:15 PM CDT On Going Discharge Planning Entered On: 04/30/2022 14:16 EDT Performed On: 04/30/2022 14:15 EDT by ERIK GALARZA Ropeman-Lead Dental Assistant Care Management Progress Note Discharge Arrangements : [...] Attend Multidisciplinary Rounds? : Yes ERIK GALARZA, Ropeman-Lead Dental Assistant - 04/30/2022 14:15 EDT Narrative Progress Note Narrative Progress Note : Patient is now on IV abx, Receiving wound care. Patient stated that she wants to go home. Family informed nursing that patient needs rehab. Nursing told family that they need to discuss this with patient and patient continues to state she wants to go home. Cm called [facility] . They can only accept patient if she truly does have straight Medicaid and not [employer]. CM will confirm insurance on 05/01/2022. CM will continue to follow. ERIK GALARZA, Ropeman-Lead Dental Assistant - 04/30/2022 14:15 EDT documented in this encounter Plan of Treatment Not on file documented as of this encounter Visit Diagnoses Not on filedocumented in this encounter
--- OUTSIDE RECORDS SUMMARY | 2025-02-21 13:37 | XMS_ITS | Encounter Summary ---
Author Organization [employer] Address [address] [place] [address] Care Team Providers Care Automatic Lathe Operator Name Role Phone Unavailable Primary Care Provider Unavailabl e Encounter Details Date Type Department Care Team (Late st Contact Info) Description 03/14/[address] [facility] [place] Medicine [facility] [place] [address] ProviderFlorentino MD [address] [place] [address] Social History Tobacco Use Types Packs/Day Years Used Date Smoking Tobacco: Never Assessed Comments Unknown Sex and Gender Information Value Date Recorded Sex Assigned at Not on file Legal Sex Female 1:44 PM CDT Gender Identity Not on file Sexual Orientation Not on file documented as of this encounter Miscellaneous Notes * Cerner Conversion Note - Florentino Lynne MD - 03/14/2022 10:35 AM CDT Patient: ALYSSA AZUL Age: 61 Years Sex: Female : 1960 Subjective Unfortunately BUN and creatinine continues to trend up. Upon further investigation, her fluid balance for her entire hospitalization is -1.7 L. Has been weaned off of oxygen and is currently on room air. She is having a productive cough and mild rhonchi on exam. Has been afebrile. Hemoglobin also trending down, no obvious signs of bleeding. We will closely monitor. Vital Signs T: 36.9 ??C TMIN: 36.7 ??C TMAX: 37.2 ??C HR: 78(Monitored) RR: 16 BP: 104/55 SpO2: 98% HT: 162.56 cm WT: 81.39 kg BMI: 30.8 Oxygen Settings (Last) Oxygen Therapy Mode: Nasal cannula (03/14/22 08:47:00) Oxygen Flow Rate: 2 Liter/Min (03/14/22 08:47:00) Intake & Output Totals Last 24 Hours (7a-7a) Input Total: 550.03 mL Output Total: 0 mL Balance: 550.03 mL Physical Exam General: Alert, obese, no [...] mood and affect Assessment/Plan #Acute hypoxic respiratory failure?resolved Concern for pneumonia, aspiration, bilateral pleural effusion [...] pneumonia PCR + MSSA ID following: Zosyn, doxycycline?planning to switch to oral soon according to documentation #Acute on chronic kidney disease III Baseline creatinine around 1.6?trending up Negative almost 2 L for hospitalization, will give 1 L normal saline to see if this helps Nephrology following Etiology prerenal azotemia/ATN due to severe sepsis/cardiac arrest #Decubitus wounds, POA S/p debridement x3 at OSH, now with large open wound Continue wound care #Cardiac arrest At OSH on 02/21 #Acute on chronic anemia Monitor Hgb #Hypernatremia???resolved #Hypertensive urgency--resolved #Chronic medical conditions ??? Paraplegia: Continue PT/OT ??? Diabetes: Glargine 28 units daily, SSI Disposition: Still hospitalized due to - Cr continues to rise. I am going to go ahead and give 1 L of IV fluid today. Awaiting further recs from nephro... Awaiting final recs from ID about abx. Apparently planning on transitioning to oral soon, ? Duration. Also waiting on insurance pre-CERT At d/c will likely need -wound care, PT OT. Pulm f/u Tentatively at d/c will be going to -[facility] and rehab Expected d/c date - 03/15-?? VTE Prophylaxis - Medical Heparin 5,000 Units, SubCutaneous, Inj, Q8H, Routine, Start 03/01/22 22:00:00 EDT, 03/01/22 19:01:00 EDT (GENI ORTIZ) Sequential Compression Device Start: 03/01/22 19:03:00 EDT, Bilateral, Length: Knee High, While patient is in bed, [facility] Sequential Compression Device Start: 03/01/22 18:51:00 EDT, Bilateral, Length: Knee High, While patient is in bed, Continuous [facility] Medications acetaminophen, 650 mg= 2 [...] 5 mL, Oral, At Bedtime Sodium Chloride 0.9% bolus, 1000 mL, IV Piggyback, 1-Time sodium phosphate sodium phosphate Zofran, 4 mg= 2 mL, IV Push, Q6H, PRN Zosyn + Dextrose 5% in Water intravenous solution 50 mL Lab Results Test Name Test Result Date/Time Sodium Level 137 mmol/L 03/14/2022 05:30 EDT Potassium Level 3.7 mmol/L 03/14/2022 05:30 EDT Chloride Level 104 mmol/L 03/14/2022 05:30 EDT Carbon Dioxide Level 25 mmol/L 03/14/2022 05:30 EDT Anion Gap 12 03/14/2022 05:30 EDT Glucose Level 139 mg/dL (High) 03/14/2022 05:30 EDT Blood Urea Nitrogen 57 mg/dL (High) 03/14/2022 05:30 EDT Creatinine Level 2.20 mg/dL (High) 03/14/2022 05:30 EDT eGFR 28 mL/min/1.73m2 (Low) 03/14/2022 05:30 EDT eGFR NonAfrican 23 mL/min/1.73m2 (Low) 03/14/2022 05:30 EDT Bun/Creatinine 25.9 (High) 03/14/2022 05:30 EDT Calcium Level 8.8 mg/dL 03/14/2022 05:30 EDT Device Comment 1 Protocols Followed 03/14/2022 05:31 EDT Device Comment 1 Protocols Followed 03/13/2022 20:20 EDT Device Comment 1 Notified Nurse RBV 03/13/2022 15:48 EDT Device Comment 1 Notified Nurse RBV 03/13/2022 10:46 EDT Device Comment 2 Notified Nurse RBV 03/14/2022 05:31 EDT Device Comment 2 Notified Nurse RBV 03/13/2022 20:20 EDT Glucose POC2 138 mg/dL (High) 03/14/2022 05:31 EDT Glucose POC2 162 mg/dL (High) 03/13/2022 20:20 EDT Glucose POC2 171 mg/dL (High) 03/13/2022 15:48 EDT Glucose POC2 293 mg/dL (High) 03/13/2022 10:46 EDT WBC 6.4 K/uL 03/14/2022 05:30 EDT RBC 2.73 Million/uL (Low) 03/14/2022 05:30 EDT Hgb 7.6 g/dL (Low) 03/14/2022 05:30 EDT Hct 24.5 % (Low) 03/14/2022 05:30 EDT MCV 89.7 fL 03/14/2022 05:30 EDT MCH 27.8 pg 03/14/2022 05:30 EDT MCHC 31.0 Gram/dL (Low) 03/14/2022 05:30 EDT Platelet Count 127 K/uL (Low) 03/14/2022 05:30 EDT MPV 11.2 fL 03/14/2022 05:30 EDT RDW 15.8 % (High) 03/14/2022 05:30 EDT Neut % 59.3 % 03/14/2022 05:30 EDT Neut # 3.80 K/uL 03/14/2022 05:30 EDT Lymph % 18.9 % (Low) 03/14/2022 05:30 EDT Lymph # 1.21 x10(3)/uL 03/14/2022 05:30 EDT [place] % 8.8 % 03/14/2022 05:30 EDT [place] # 0.56 K/uL 03/14/2022 05:30 EDT Eos % 5.5 % 03/14/2022 05:30 EDT Eos # 0.35 x10(3)/uL 03/14/2022 05:30 EDT Baso % 0.8 % 03/14/2022 05:30 EDT Baso # 0.05 x10(3)/uL 03/14/2022 05:30 EDT Neutrophil Percent Man 63 % 03/14/2022 05:30 EDT Band Percent Man 11 % 03/14/2022 05:30 EDT Lymph Percent Man 15 % (Low) 03/14/2022 05:30 EDT [place] Percent Man 3 % (Low) 03/14/2022 05:30 EDT Eos Percent Man 6 % (High) 03/14/2022 05:30 EDT Baso Percent Man 1 % 03/14/2022 05:30 EDT [place] Percent Man 1 % 03/14/2022 05:30 EDT RBC Morphology Abnormal 03/14/2022 05:30 EDT Anisocytosis 1+ (Abnormal) 03/14/2022 05:30 EDT Polychromasia 1+ (Abnormal) 03/14/2022 05:30 EDT Hypochromia 1+ (Abnormal) 03/14/2022 05:30 EDT Teardrop Cells 1+ (Abnormal) 03/14/2022 05:30 EDT Baso Stippling 1+ (Abnormal) 03/14/2022 05:30 EDT Stomatocytes 1+ (Abnormal) 03/14/2022 05:[address] Estimate Decreased (Abnormal) 03/14/2022 05:30 EDT Slide Review No 03/14/2022 05:30 EDT IG# 0.43 x10(3)/uL (High) 03/14/2022 05:30 EDT IG% 6.70 % (High) 03/14/2022 05:30 EDT documented in this encounter Plan of Treatment Not on file documented as of this encounter Visit Diagnoses Not on filedocumented in this encounter
--- OUTSIDE RECORDS SUMMARY | 2025-02-21 13:37 | XMS_ITS | Encounter Summary ---
Author Organization [employer] Address [address] [place] [address] Care Team Providers Care Gis Analyst Developer Name Role Phone Unavailable Primary Care Provider Unavailabl e Encounter Details Date Type Department Care Team (Late st Contact Info) Description 02/24/2022 Transcribed Document [facility] [place] [address] [place] [address] ProviderFlorentino MD [address] [place] [address] Social History Tobacco Use Types Packs/Day Years Used Date Smoking Tobacco: Never Assessed Comments Unknown Sex and Gender Information Value Date Recorded Sex Assigned at Not on file Legal Sex Female 1:44 PM CDT Gender Identity Not on file Sexual Orientation Not on file documented as of this encounter Miscellaneous Notes * Cerner Conversion Note - Florentino Lynne MD - 02/24/2022 8:39 AM CDT Patient: ALYSSA AZUL Age: 61 years Sex: Female : 1960 Associated Diagnoses: None Author: TORRES MARTINEZ MD-NEP Subjective Nonverbal. Objective VS/Measurements Vitals Signs (last 24 hrs) Last Charted Minimum Maximum Temp 98.8 (FEB 24 04:00) 98.8 (FEB 24 04:00) 99.0 (FEB 23 12:00) Mon HR 77 (FEB 24 08:10) 60 (FEB 24 05:29) 96 (FEB 23 13:15) Resp Rate 15 (FEB 24 08:10) 15 (FEB 24 08:10) H 21 (FEB 24 02:15) SBP 128 (FEB 24 06:15) 98 (FEB 23 13:30) H 163 (FEB 24 02:15) DBP 67 (FEB 24 06:15) L 54 (FEB 23 13:30) H 92 (FEB 24 02:15) MAP 90 (FEB 24 06:15) 70 (FEB 23 13:30) 121 (FEB 24 02:15) SpO2 97 (FEB 24 08:10) 94 (FEB 23 13:15) 100 (FEB 23 08:45) Intake & Output Totals Last 24 Hours (7a-7a) Intake (49 Events) Continuous Infusions (73.64 mL) Medications (367.52 mL) Enteral Additional Water Given (2450 mL) Enteral Feeding Amount (120 mL) Output (8 Events) Urine Voided (Volume) (2150 mL) Input Total: 3011.16 mL Output Total: 2150 mL Balance: 861.16 mL Physical exam contact may be limited [...] Review Labs (Last four charted values) WBC 8.9 (JAN 27) 6.5 (CATRACHITA 26) 8.9 (CATRACHITA 25) H 18.6 (CATRACHITA 24) HB L 7.5 (JAN 27) L 7.9 (CATRACHITA 26) L 6.6 [...] H 115 (CATRACHITA 25) CO2 L 20 (FEB 24) 21 (FEB 23) L 20 (FEB 23) 21 (FEB 22) BUN H 49 (FEB 24) H 51 (FEB 23) H 53 (FEB 23) H 55 (FEB 22) Cr H 3.17 (FEB 24) H 3.04 (FEB 23) H 3.13 (FEB 23) H 3.11 (FEB 22) Glu R H 217 (FEB 24) 74 (FEB 23) H 121 (FEB 23) C 470 (FEB 22) Ca L 7.3 (FEB 24) L 6.8 (FEB 23) L 7.0 (FEB 23) L 6.7 (FEB 22) Lactic 0.9 (FEB 22) 0.7 (FEB 22) AST 13 (FEB 24) 14 (FEB 23) 17 (FEB 21) ALT 16 (FEB 24) 16 (FEB 23) 21 (FEB 21) ALK P 49 (FEB 24) 53 (FEB 23) 76 (FEB 21) T Bili 0.4 (FEB 24) 0.4 (FEB 23) 0.3 (FEB 21) PTN L 5.4 (FEB 24) L 5.9 (FEB 23) L 6.3 (FEB 21) ALB L 1.7 (FEB 24) L 1.9 (FEB 23) L 1.9 (FEB 21) Impression and Plan ARF: Creatinine chito elevated 3.2 with nonoliguric urine output.. Patient likely with prerenal azotemia due to hypotension which may be evolving to ATN along with possible Vanco toxicity.. Previously FeNa borderline at 1.3% with a low Fe urea 25%. Vancomycin level >50 for least 48 hours. Down to 37 today. For now continue supportive care. Optimize volume. [...] blood pressure with albumin as needed. Hypernatremia: Improved with D5W overnight. All fluids hypotonic. Hypokalemia: Improved. Potassium had decreased with insulin drip and bicarb administration. R continue to replace as needed. Magnesium replaced to>2.0 [...] loading. All fluids nonchlorinated as able. Anemia: Hemoglobin back up to 7.6 post transfusion for hemoglobin 6.8. Transfuse as needed for Hgb <7 Volume: Stable. Will hold fluids and diuretics for now. Monitor for euvolemia. Continue perfusion support. Decubitus ulcer post debridement Pneumonia: On antibiotics Respiratory failure: Remains on ventilator. High risk and complexity critically ill patient. documented in this encounter Plan of Treatment Not on file documented as of this encounter Visit Diagnoses Not on filedocumented in this encounter
--- OUTSIDE RECORDS SUMMARY | 2025-02-21 13:37 | XMS_ITS | Encounter Summary ---
Author Organization [employer] Address [address] [place] [address] Care Team Providers Care Gun Perforator Loader Name Role Phone Unavailable Primary Care Provider Unavailabl e Encounter Details Date Type Department Care Team (Late st Contact Info) Description 03/04/[address] [facility] [place] Family Medicine [address] [place] [address] ProviderFlorentino MD [address] [place] [address] Social History Tobacco Use Types Packs/Day Years Used Date Smoking Tobacco: Never Assessed Comments Unknown Sex and Gender Information Value Date Recorded Sex Assigned at Not on file Legal Sex Female 1:44 PM CDT Gender Identity Not on file Sexual Orientation Not on file documented as of this encounter Miscellaneous Notes * Cerner Conversion Note - Florentino Lynne MD - 03/04/2022 11:26 AM CDT Patient: ALYSSA AZUL Age: 61 years Sex: Female : 1960 Associated Diagnoses: None Author: JAMILAH GEORGES MD Date: 03/04/2022 Time: 11:25 AM Confirmed: patient, procedure, side, site, safety procedures followed. Performed by: self. Informed consent: family singed for the procedure. Indication: Acute hypoxic respiratory failure. Nurse reported thick secretions, worsening chest x-ray right side. Medications: Please refer to MAR for medication given. Technique: type of bronchoscope flexible, route endotracheal tube, suctioning, monitoring during procedure (blood pressure monitoring, ripshear operator, continuous pulse oximetry, volumes/peak inspiratory pressure). Upper airway and eri: -Lower Trachea: open, no endobronchial lesion, no bleeding, mucosa showed mild white thrush not significant. -Eri: Sharp, open, no endobronchial lesion, no bleeding, mucosa is within normal Right lung: -Right Main Bronchus: Airways are open, open, no endobronchial lesion, no bleeding, mucosa is within normal -RUL: Airways are open, no endobronchial lesion, no bleeding, mucosa is within normal -RML/RLL: I therapeutically aspirated multiple brown, nguyen mucous plugs, after which airways visualized, airways are open, no endobronchial lesion, no bleeding, mucosa is within normal BAL from right lower lobe was done. Left lung: -Left Main Bronchus: Airways are open, no endobronchial lesion, no bleeding, mucosa is within normal - FISH: Airways are open, no endobronchial lesion, no bleeding, mucosa is within normal -LLL: Airways are open, no endobronchial lesion, no bleeding, mucosa is within normal Findings/procedures: 1-. Airway visualization: Mucosa within normal video mild fragile mucosa and 11:00 of the right main bronchus. No endobronchial lesion, no bleeding. 2-. I therapeutically aspirated nguyen brown mucous plugs from the right lower lobe and right middle lobe. 3-. Bronchial washing right lower lobe to be sent for culture, pathology, cell differentials. Plan: 1-continue the current antibiotics, discussed with ID attending Dr. Vazquez and plan of care was updated. 2-Will continue vent management, spoke to the nurse at the bedside and will proceed with a spontaneous awakening trial spontaneous breathing trial. 3-Nurse, RT at the bedside and plan of care was updated. 4-family called and updated about findings. Pt tolerated procedure well, no complications. documented in this encounter Plan of Treatment Not on file documented as of this encounter Visit Diagnoses Not on filedocumented in this encounter
--- OUTSIDE RECORDS SUMMARY | 2025-02-21 13:37 | XMS_ITS ---
Author Organization [facility] Team Providers Care Sports Marketing Specialist Name Role Phone PEÑA SPEARS Unavailable Unavailable Sujatha Yuen Unavailable Unavailab Radha Harris Unavailable Unavailable Allergies and adverse reactions No Known Allergies Care Team Name Role Address Phone Organization Dates PEÑA SPEARS [facility] [address], [place], [place], [facility], [facility] (Office): : [facility] 03/20/2022 - 04/08/2022 Sujatha Yuen [address], [place] [address], [facility] (Office): : : [facility] 03/20/2022 - 04/08/2022 Radha Morales [address], [place], [place], [facility], [facility] (Office): : : [facility] 03/20/2022 - 04/08/2022 Goals Section Goals Description Status Target Date [place] residents wishes for discharge Active 06/30/2022 Resident will be free from f urther complications of kidney disease through next review Active 06/30/2022 Resident will enjoy meals as evidenced by no significant weight loss and verbal satisfaction Active 06/30/2022 Resident will not have any U NIDENTIFIED areas of skin breakdown through next review DATE Active 06/30/2022 Resident will not have any U NIDENTIFIED complications of diabetes through next review DATE Active 06/30/2022 Resident will not have any U NIDENTIFIED complications with urostomy through next review DATE Active 06/30/2022 Resident will not have any U NIDENTIFIED signs and symptoms of dehydration through next review DATE Active 06/30/2022 Resident will not have any U NIDENTIFIED symptoms of cardiac distress through next review DATE Active 06/30/2022 Resident will not have any U NIDENTIFIED symptoms of unrelieved pain through next review DATE Active 06/30/2022 Resident will not have any a cute exacerbation of respiratory disease through next review Active 06/30/2022 Resident will not have any m ajor injuries with falls THRU NEXT REVIEW DATE Active 06/30/2022 Resident will not have any s ignificant losses or gains through next review Active 06/30/2022 To restart heart/ breathing Active 06/02 WILL PARTICIPATE IN DAILY BA THING, GROOMING, DRESSING TASKS TO LEVEL OF ABILITY THRU NEXT REVIEW DATE Active 06/30/2022 Will have all incontinence/T OILETING needS met THRU next review DATE Active 06/30/2022 Wound will not exhibit any U NIDENTIFIED symptoms of infection or deterioration through next review DATE Active 06/30/2022 Immunizations Immunization Status Vaccine Details Vaccine Code CodeSystem Dejan e Notes Influenza completed Influenza, split virus, trivalent, injectable, contains preservative 141 CVX created date: 03/21/2022 administere d date: 05/31/2021 TB 2 Step Mantoux Skin Test completed tuberculin skin test; purified protein derivative solution, intradermal Given 0.1 ml Left Forearm intradermally Step 2 of Multi-step with next step required 96 CVX created date: 04/02/2022 consent date: 04/02/2022 administere d date: 03/30/2022 TB 2 Step Mantoux Skin Test completed tuberculin skin test; purified protein derivative solution, intradermal Given 0.1 ml Left Forearm intradermally Step 1 of Multi-step with next step required 96 CVX created date: 03/21/2022 consent date: 03/21/2022 administere d date: 03/20/2022 Pneumovax completed pneumococcal vaccine, unspecified formulation 109 CVX created date: 03/21/2022 administere d date: 09/03/2020 Moderna COVID-19 Vaccine completed SARS-COV-2 (COVID-19) vaccine, mRNA, spike protein, LNP, preservative free, 100 mcg/0.5mL dose or 50 mcg/0.25mL dose 207 CVX created date: 03/21/2022 administere d date: 01/09/2022 Moderna COVID-19 Vaccine completed SARS-COV-2 (COVID-19) vaccine, mRNA, spike protein, LNP, preservative free, 100 mcg/0.5mL dose or 50 mcg/0.25mL dose 207 CVX created date: 03/21/2022 administere d date: 07/17/2021 Moderna COVID-19 Vaccine completed SARS-COV-2 (COVID-19) vaccine, mRNA, spike protein, LNP, preservative free, 100 mcg/0.5mL dose or 50 mcg/0.25mL dose 207 CVX created date: 03/21/2022 administere d date: 12/26/2020 Moderna COVID-19 Vaccine completed SARS-COV-2 (COVID-19) vaccine, mRNA, spike protein, LNP, preservative free, 100 mcg/0.5mL dose or 50 mcg/0.25mL dose 207 CVX created date: 03/21/2022 administere d date: 11/28/2020 Mental Status Section Date Assessment Total Score Description 04/08/2022 CAM 0 No delirium ind icated 03/27/2022 BIMS 15 cognitively int act CAM 0 No delirium ind icated PHQ-9 00 Problems Problem # Description Date of onset Resolved Date Code CodeSystem Concern Status 1 MUSCLE WEAKNESS (GENERALIZED) 03/23/[address] active 2 OTHER REDUCED MOBILITY 03/23/[address] active 3 ACUTE RESPIRATORY FAILURE WITH HYPOXIA 03/20/[address] active 4 AGE-RELATED OSTEOPOROSIS WITHOUT CURRENT PATHOLOGICAL FRACTURE 03/20/[address] active 5 ANEMIA, UNSPECIFIED 03/20/[address] active 6 ATELECTASIS 03/20/[address] active 7 CHRONIC KIDNEY DISEASE, STAGE 3 UNSPECIFIED 03/20/[address] active 8 GASTRO-ESOPHAGEAL REFLUX DISEASE WITHOUT ESOPHAGITIS 03/20/[address] active 9 HYPERLIPIDEMIA, UNSPECIFIED 03/20/[address] active 10 PARAPLEGIA, UNSPECIFIED 03/20/[address] active 11 PNEUMONIA, UNSPECIFIED ORGANISM 03/20/[address] active 12 SEPSIS, UNSPECIFIED ORGANISM 03/20/[address] active 13 TYPE 2 DIABETES MELLITUS WITHOUT COMPLICATIONS 03/20/[address] active Reason for Referral No Reasons for Referral Entered Social History Social History Observation Description Start Date End Date Code Code System Current Smoking Status Tobacco smoking consumption unknown 097223255 SNOMED CT Sex Assigned At Female 1960 24482-7 [facility] Gender Identity Vital Signs Code Code System Vitals Name Values and Units Timing Information 22909-2 [facility] Pain Level Value=0.0 04/09/2022 8867-4 [facility] Heart rate Frewe=913.0 Units=/min 04/08/2022 8310-5 [facility] Body Temperature Value=97.2 Units= F 04/08/2022 9279-1 [facility] Respiratory Rate Value=20.0 Units=/m in 04/08/2022 8462-4 [facility] Blood Pressure-Diastolic Value=88 Un its=mmHg 04/08/2022 8480-6 [facility] Blood Pressure-Systolic Zrspv=608 Un its=mmHg 04/08/2022 12481-6 [facility] O2 % BldC Oximetry Value=92.0 Units= % 04/08/2022 2339-0 [facility] Blood Sugar Wzhsd=442.0 Units=mg/dL 04/07/2022 53094-7 [facility] Weight Uyloj=451.8 Units=Lbs 10/2021 8302-2 [facility] Height Value=62.0 Units=Inches 03/20/2022
--- OUTSIDE RECORDS SUMMARY | 2025-02-21 13:37 | XMS_ITS | Encounter Summary ---
Author Organization [employer] Address [address] [place] [address] Care Team Providers Care Anodizer Name Role Phone Unavailable Primary Care Provider Unavailabl e Encounter Details Date Type Department Care Team (Late st Contact Info) Description 02/24/2022 Transcribed Document [facility] [place] Family Medicine [address] [place] [address] ProviderFlorentino MD [address] [place] [address] Social History Tobacco Use Types Packs/Day Years Used Date Smoking Tobacco: Never Assessed Comments Unknown Sex and Gender Information Value Date Recorded Sex Assigned at Not on file Legal Sex Female 1:44 PM CDT Gender Identity Not on file Sexual Orientation Not on file documented as of this encounter Miscellaneous Notes * Cerner Conversion Note - Historical ProviderMD - 02/24/2022 7:50 AM CDT Attempt to Treat, PT Entered On: 02/24/2022 8:57 EDT Performed On: 02/24/2022 7:50 EDT by PRAKASH RÍOS PT Attempt to Treat Unable to Treat Due To : Patient on hold Inability to Treat Comment : Pt is still intubated and sedated and is on hold per Maritza TILLMAN Notification : RN and PT discussed PRAKASH RÍOS PT - 02/24/2022 8:56 EDT documented in this encounter Plan of Treatment Not on file documented as of this encounter Visit Diagnoses Not on filedocumented in this encounter
--- OUTSIDE RECORDS SUMMARY | 2025-02-21 13:37 | XMS_ITS | Encounter Summary ---
Author Organization [employer] Address [address] [place] [address] Care Team Providers Care Sole Rounding Machine Operator Name Role Phone Unavailable Primary Care Provider Unavailabl e Encounter Details Date Type Department Care Team (Late st Contact Info) Description 03/15/2022 Transcribed Document [facility] [place] [address] [place] [address] ProviderFlorentino MD [address] [place] [address] Social History Tobacco Use Types Packs/Day Years Used Date Smoking Tobacco: Never Assessed Comments Unknown Sex and Gender Information Value Date Recorded Sex Assigned at Not on file Legal Sex Female 1:44 PM CDT Gender Identity Not on file Sexual Orientation Not on file documented as of this encounter Miscellaneous Notes * Cerner Conversion Note - Florentino Lynne MD - 03/15/2022 8:39 AM CDT Patient: ALYSSA AZUL Age: 61 years Sex: Female : 1960 Associated Diagnoses: None Author: MARGARETH MANRIQUEZ MD Subjective No complains, denies chest pain or shortness of breath. Health Status Allergies: Allergic Reactions (Selected) No Known Allergies, Allergies (1) Active Reaction No Known Allergies None Documented Current medications: (Selected) Inpatient Medications Ordered Augmentin 500 mg-125 mg oral tablet: 500 mg, 1 Tab, Oral, BID Dextrose 50% injection: 12.5 Gram, IV [...] Dyspnea Fish Oil: 5,000 mg, Oral, BID Normal Saline 500 mL: 50 mL/Hr, IntraVENous PRAVAstatin: 40 mg, Oral, At Bedtime Pepcid: 20 mg, Oral, At Bedtime Pulmicort Respules: 0.5 mg, Nebulized Inhalation, RT_BID Sodium Chloride 0.9% bolus: 1,000 mL, 250 mL/Hr, IV Piggyback, 1-Time Zofran: 4 mg, IV Push, Q6H, PRN: Nausea acetaminophen: 650 mg, Oral, Q6H, PRN: Temperature [...] 3 mL 3 mL, Nebulized Inhalation, RT_Q6H amoxicillin/clav 500/125 mg tab 500 mg 1 Tab, Oral, BID budesonide 0.5 mg/2 mL inh susp 0.5 [...] kg scale, SubCutaneous, AC and at Bedtime NaCl 0.9% 1,000 mL, IV Piggyback, 1-Time omega-3 fish oil 1,000 mg cap 5,000 mg 5 Cap, Oral, BID PRAVAstatin sodium 20 mg tab 40 mg 2 Tab, Oral, At Bedtime senna 8.8 mg/5 mL liq 8.8 mg 5 mL, Oral, At Bedtime Continuous: (2) NaCl 0.9% 500 mL 500 mL, IntraVENous, 50 mL/Hr niCARdipine 25 mg + Dextrose 5% in [...] History of obstructive sleep apnea / IMO [id number] / Confirmed, Active Problems (5) Chronic kidney disease (CKD), stage III (moderate) Diabetes History of obstructive sleep apnea Hyperlipidemia Hypertension Objective VS/Measurements Measurements from flowsheet : Measurements 03/15/2022 5:00 EDT Height Source Chart Height Entry Format Early Height/Length, ALGERIAN (ft) 5 ft Height/Length ALGERIAN 4 Inch CLINICALHEIGHT 162.56 cm Routine Weight Source Bed scale Routine Weight Entry Format Early Routine Weight, Pounds 170 lb Routine Weight, Ounces 1 oz Routine Weight Calculation 77.3 kg Body Mass Index (BMI), Routine 29.25 kg/m2 Body Surface Area (BSA), Routine 1.83 m2 03/14/2022 5:00 EDT Height Source Chart Height Entry Format Early Height/Length, ALGERIAN (ft) 5 ft Height/Length ALGERIAN 4 Inch CLINICALHEIGHT 162.56 cm Routine Weight Source Bed scale Routine Weight Entry Format Early Routine Weight, Pounds 179 lb Routine Weight, Ounces 1 oz Routine Weight Calculation 81.39 kg Body Mass Index (BMI), Routine 30.8 kg/m2 Body Surface Area (BSA), Routine 1.87 m2 , Vitals Signs (last 24 hrs) Last Charted Minimum Maximum Temp 98.7 (MAR 15 06:00) 98.7 (MAR 15 06:00) 99.1 (MAR 14:) Mon HR 86 (MAR 15 06:00) 82 (MAR 15 05:02) 96 (MAR 14 10:54) Resp Rate 16 (MAR 15 06:00) 16 (MAR 14 10:15) 16 (MAR 14:15) SBP 131 (MAR 15 06:00) 130 (MAR 15 02:13) H 144 (MAR 14:) DBP 72 (MAR 15 06:00) L 58 (MAR 14 15:00) 87 (MAR 14 17:30) MAP 89 (MAR 15 06:00) 70 (MAR 14:00) 104 (MAR 14:) SpO2 98 (MAR 15 05:02) L 92 (MAR 14 10:00) 99 (MAR 15 02:13) Intake & Output Totals Last 24 Hours (7a-7a) Intake (9 Events) Medications (105.02 mL) Oral Intake (240 mL) Output (3 Events) Valenzuela Catheter (700 mL) Ostomy Output, Genitourinary: (800 mL) Input Total: 345.02 mL Output Total: 1500 mL Balance: -1154.98 mL Physical exam contact may be limited [...] Review Labs (Last four charted values) WBC 6.5 (MAR 15) 6.4 (MAR 14) 6.8 (MAR 13) 5.3 (MAR 12) HB L 8.0 (MAR 15) L 7.6 (FEB 15) L 8.2 (FEB 14) L 8.3 (MAR 12) HCT L 25.5 (MAR 15) L 24.5 (MAR 14) L 26.2 (MAR 13) L 26.9 (MAR 12) Plt L 147 (MAR 15) L 127 (FEB 15) L 134 (MAR 13) L 146 (MAR 12) Na 138 (MAR 15) 137 (FEB 15) 138 (MAR 13) 138 (MAR 12) K 3.8 (MAR 15) 3.7 (FEB 15) 3.5 (MAR 13) 3.5 (MAR 12) Cl 106 (FEB 16) 104 (FEB 15) 103 (FEB 14) L 101 (MAR 12) CO2 23 (MAR 15) 25 (FEB 15) 27 (FEB 14) 29 (MAR 12) BUN H 53 (FEB 16) H 57 (FEB 15) H 52 (FEB 14) H 49 (MAR 12) Cr H 2.00 (MAR 15) H 2.20 (FEB 15) H 2.10 (MAR 13) H 2.00 (MAR 12) Glu R H 152 (FEB 16) H 139 (FEB 15) H 179 (FEB 14) H 176 (MAR 12) Ca 9.4 (FEB 16) 8.8 (FEB 15) 8.7 (FEB 14) 8.9 (MAR 12) Lactic 0.5 (MAR 09) 0.5 (MAR 04) [...] distress - Pneumonia on vent. Plan: - Encourage oral hydration. - Monitor I/O. - Avoid nephrotoxic agents. - Adjust meds per renal function - No emergent need of MANAGER LIBRARY. - Monitor H/H and transfuse for Hgb less than 7.0 High risk and complexity patient. documented in this encounter Plan of Treatment Not on file documented as of this encounter Visit Diagnoses Not on filedocumented in this encounter
--- OUTSIDE RECORDS SUMMARY | 2025-02-21 13:37 | XMS_ITS | Encounter Summary ---
Author Organization [employer] Address [address] [place] [address] Care Team Providers Care Slab Conditioner Supervisor Name Role Phone Unavailable Primary Care Provider Unavailabl e Encounter Details Date Type Department Care Team (Late st Contact Info) Description 03/15/2022 Transcribed Document [facility] Family Medicine [address] [place] [address] ProviderFlorentino MD [address] [place] [address] Social History Tobacco Use Types Packs/Day Years Used Date Smoking Tobacco: Never Assessed Comments Unknown Sex and Gender Information Value Date Recorded Sex Assigned at Not on file Legal Sex Female 1:44 PM CDT Gender Identity Not on file Sexual Orientation Not on file documented as of this encounter Miscellaneous Notes * Cerner Conversion Note - Historical ProviderMD - 03/15/2022 5:00 AM CDT Height and Weight, Routine Entered On: 03/15/2022 6:48 EDT Performed On: 03/15/2022 5:00 EDT by Ze Holbrook Patient Commissary Officer Gopal Height and Weight, Routine Routine Weight Source : Bed scale Routine Weight Entry Format : [place] Routine Weight, Pounds : 170 lb Routine Weight, Ounces : 1 oz Routine Weight Calculation : 77.3 kg Height Source : Chart Height Entry Format : [place] Height, Feet : 5 ft Height, Inches : 4 Inch Clinical Height : 162.56 cm Body Surface Area (BSA), Routine : 1.83 m2 Body Mass Index (BMI), Routine : 29.25 kg/m2 Ze Holbrook Patient Commissary Officer I - 03/15/2022 6:48 EDT documented in this encounter Plan of Treatment Not on file documented as of this encounter Visit Diagnoses Not on filedocumented in this encounter
--- OUTSIDE RECORDS SUMMARY | 2025-02-21 13:37 | XMS_ITS | Encounter Summary ---
Author Organization [employer] Address [address] [place] [address] Care Team Providers Care Lens Mold Setter Name Role Phone Unavailable Primary Care Provider Unavailabl e Encounter Details Date Type Department Care Team (Late st Contact Info) Description 12/18/2022 Transcribed Document [facility] [place] Medicine [address] [place] [address] ProviderFlorentino MD [address] [place] [address] Social History Tobacco Use Types [...] - Historical ProviderMD - 10/19/2022 12:56 PM BAND TOP MAKER COVID-19 Vaccination Entered On: 03/03/2022 11:50 EDT Performed On: 03/03/2022 8:30 EDT by Adonay Montero Rn COVID-19 Vaccination Patient Vaccinated for COVID-19 : Unable to obtain Adonay Montero Rn - 03/03/2022 11:50 EDT documented in this encounter Plan of Treatment Not on file documented as of this encounter Visit Diagnoses Not on filedocumented in this encounter
--- OUTSIDE RECORDS SUMMARY | 2025-02-21 13:37 | XMS_ITS | Encounter Summary ---
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 Name Role Phone Unavailable Primary Care Provider Unavailabl e Encounter Details Date Type Department Care Team (Late st Contact Info) Description 04/10/2022 Transcribed Document [facility] Family Medicine [facility] [place] [address] ProviderFlorentino MD [address] [place] [address] Social History Tobacco Use Types Packs/Day Years Used Date Smoking Tobacco: Never Assessed Comments Unknown Sex and Gender Information Value Date Recorded Sex Assigned at Not on file Legal Sex Female 1:44 PM CDT Gender Identity Not on file Sexual Orientation Not on file documented as of this encounter Miscellaneous Notes * Cerner Conversion Note - Florentino Lynne MD - 04/10/2022 2:58 PM CDT Patient: ALYSSA AZUL Age: 61 years Sex: Female : 1960 Associated Diagnoses: None Author: JAMILAH GEORGES MD Referring physician: Dr. Weiss Reason for consult: Critical care management CC: Unable to obtain Basic Information HPI: The patient is a 61 year old female with past medical history significant for paraplegia, CKD, DM, HTN, and multiple recent hospitalizations, who presented to our faciltiy on 04/08 with chief complaints of increasing confusion and fall at [facility]. Per documentation, the patient is a [...] She was [facility] from [facility] facility to [facility]. On 04/08, pulmonary is being asked [...] acid is normal. Ammonia level normal. +BM. ICU day: 3 Vent day:3 Central line: 04/08 Review of Systems Unable to obtain: Due to clinical condition. Health Status Allergies: Allergic Reactions (Selected) No [...] IV Push, Q15Min, PRN: Other (See Comment) Dextrose: 25 Gram, IV Push, 1-Time, PRN: Hypoglycemia Insulin regular injection 100 Units + Sodium Chloride 0.9% intravenous solution 100 mL: Corrective Insulin Drip, IntraVENous NORepinephrine injection 16 mg + NaCl 0.9% for drip 250 mL: TITRATE, IntraVENous Normal Saline Flush: 10 mL, IV Push, Q12H Normal Saline Flush: 10 mL, IV Push, See Comment, PRN: IV Use Pepcid: 20 mg, IV Push, Daily Phoxillum BK 4K/2.5 Ca bag - GREEN 5,000 mL: 1,500 mL/Hr, Miscellaneous Phoxillum BK 4K/2.5 Ca bag - PURPLE 5,000 mL: 800 mL/Hr, Miscellaneous Phoxillum BK 4K/2.5 Ca bag - WHITE 5,000 mL: 1,000 mL/Hr, Miscellaneous Zyvox: 600 mg, 300 mL, 300 mL/Hr, IV Piggyback, [id number] calcium gluconate: 1 Gram, 100 mL, 100 mL/Hr, IV Piggyback, Q1H, PRN: Other (See Comment) calcium gluconate: 2 Gram, 100 mL, 100 mL/Hr, IV Piggyback, Q1H, PRN: Other (See Comment) fentaNYL injection 2,000 mcg + NaCl 0.9% Premix Diluent 100 mL: TITRATE, IntraVENous fludrocortisone: 0.05 mg, Nasogastric Tube, Daily glucagon: 1 mg, IntraMuscular, Q15Min, PRN: Other (See Comment) glucose 4 g oral tablet, chewable: 16 Gram, 4 Tab, Chew, Q15Min, PRN: Other (See Comment) glucose 40% oral gel: 15 Gram, 37.5 mL, Oral, Q15Min, PRN: Other (See Comment) heparin: 5,000 Units, SubCutaneous, Q8H hydrocortisone: 50 mg, IV Push, Q6H insulin glargine: 10 Units, SubCutaneous, BID magnesium sulfate: 2 Gram, 50 mL, 25 mL/Hr, IV Piggyback, Q1H, PRN: Other (See Comment) meropenem + Sodium Chloride 0.9% intravenous solution 50 mL: 500 mg, 16.67 mL/Hr, IV Piggyback, [id number] micafungin: 100 mg, 100 mL/Hr, IV Piggyback, [id number] phenylephrine injection 80 mg + NaCl 0.9% for drip 250 mL: TITRATE, IntraVENous potassium chloride: 10 mEq, 50 mL, 50 mL/Hr, IV Piggyback, Q30Min, PRN: Other (See Comment) propofol injection 1,000 mg + Premix Diluent for Drip 100 mL: TITRATE, IntraVENous sodium bicarbonate injection 150 mEq + Dextrose 5% in Water intravenous solution 1,000 mL: 50 mL/Hr, IntraVENous sodium phosphate + Sodium Chloride 0.9% intravenous solution 250 mL: 10 mMole, 3.33 mL, 62.5 mL/Hr, IV Piggyback, Q3H, PRN: Other (See Comment) sodium phosphate: 20 mMole, 6.67 mL, 41.67 mL/Hr, IV Piggyback, Q6H, PRN: Other (See Comment) vasopressin injection 40 Units [0.03 Units/min] + [...] Tab, Oral, At Bedtime, 0 Refill(s), Medications (35) Active Scheduled: (10) #NaCl 0.9% *FLUSH* inj 10 mL 10 mL, IV Push, Q12H famotidine 20 mg/2 mL inj 20 mg 2 mL, IV Push, Daily fludrocortisone 0.1 mg tab 0.05 mg 0.5 Tab, Nasogastric Tube, Daily heparin 5,000 units/1 mL inj 5,000 Units 1 mL, SubCutaneous, Q8H hydrocortisone 100 mg/2 mL inj 50 mg 1 mL, IV Push, Q6H insulin glargine 1 unit/0.01 mL inj 10 Units 0.1 mL, SubCutaneous, BID linezolid *PREMIX* 600 mg 300 mL, IV Piggyback, [id number] meropenem + NaCl 0.9% 50 mL 500 mg, IV Piggyback, [id number] micafungin sodium 100 mg, IV Piggyback, [id number] miconazole nitrate 2% pwd 85 g 1 Application, Topical, BID Continuous: (10) fentaNYL/NaCl 0.9% 2,000 mcg + Premix Diluent NaCl 0.9% TITRATE 100 mL 100 mL, IntraVENous insulin regular 100 Units + NaCl 0.9% 100 mL 100 mL, IntraVENous NORepinephrine 16 mg + NaCl 0.9% T ITRATE 250 mL 250 mL, IntraVENous phenylephrine 80 mg + NaCl 0.9% T ITRATE 250 mL 250 mL, IntraVENous Phoxillum BK 4/2.5 5,000 mL 5,000 mL, Miscellaneous, 1,000 mL/Hr Phoxillum BK 4/2.5 5,000 mL 5,000 mL, Miscellaneous, 1,500 mL/Hr Phoxillum BK 4/2.5 5,000 mL 5,000 mL, Miscellaneous, 800 mL/Hr propofol 1,000 mg + Premix Diluent Titrate 100 mL 100 mL, IntraVENous sodium bicarbonate 150 mEq + Dextrose 5% in Water 1,000 mL 1,000 mL, IntraVENous, 50 mL/Hr vasopressin 40 Units [0.03 Units/min] + Dextrose 5% in Water TITRATE 100 mL 100 mL, IntraVENous, 4.5 mL/Hr PRN: (15) #NaCl 0.9% *FLUSH* inj 10 mL 10 mL, IV Push, See Comment calcium gluconate 2 Gram 100 mL, IV Piggyback, Q1H calcium gluconate/NaCl 1 Gram 100 mL, IV [...] 12.5 Gram 25 mL, IV Push, Q15Min dextrose 50% 25 g/50 mL inj syr 25 Gram 50 mL, IV Push, 1-Time glucagon 1 mg/1 mL inj 1 mg 1 mL, IntraMuscular, Q15Min glucose 4 g tab 16 Gram 4 Tab, Chew, Q15Min glucose 40% gel 15 g 15 Gram 37.5 mL, Oral, Q15Min magnesium sulfate 2 Gram 50 mL, IV Piggyback, Q1H potassium chloride 10 mEq 50 mL, IV Piggyback, Q30Min sodium phosphate 20 mMole 6.67 mL, IV Piggyback, Q6H sodium phosphate + NaCl 0.9% 250 mL 10 mMole 3.33 mL, IV Piggyback, Q3H Problem list: Medical History of obstructive sleep apnea / IMO [id number] / Confirmed Diabetes / SNOMED CT [id number] / Confirmed, Active Problems (6) Chronic kidney disease (CKD), stage III (moderate) Diabetes History of obstructive sleep apnea Hyperlipidemia Hypertension Paraplegia Physical Examination VS/Measurements Vitals Signs (last 24 hrs) Last Charted Minimum Maximum Mon HR 44 (APR 10 14:45) 38 (APR 10 04:30) 72 (APR 09 15:15) Resp Rate 14 (APR 10 14:45) L 5 (APR 09 15:45) H 48 (APR 10 00:29) SBP H 157 (APR 10 14:45) 92 (APR 10 00:45) H 189 (APR 10 03:15) DBP 71 (APR 10 14:45) L 51 (APR 10 08:32) 90 (APR 10 02:30) MAP 103 (APR 10 14:45) 65 (APR 09 16:45) 125 (APR 10 03:15) SpO2 100 (APR 10:45) 99 (APR 10 02:00) 100 (APR 09 15:00) General: Intubated. off sedation. RASS -1 to 0. Eye: Pupils are equal, round and reactive to light, Normal conjunctiva. HENT: Normocephalic, Oral mucosa is moist. Neck: Supple, No lymphadenopathy. Respiratory: Breath sounds are equal, Symmetrical chest wall expansion. Cardiovascular: Regular rhythm, bradycardia . Gastrointestinal: Soft, Non-distended, Normal bowel sounds. Support: Gastric tube ( Nasal ). Genitourinary: Support: Urostomy. Musculoskeletal: No swelling, No deformity. Integumentary: Warm, Dry, Left gluteal wound vac present. Neurologic: off sedation. alert and nods head appropriately to questions, RASS -1 to 0. Psychiatric: Unable to assess. Review / Management Results review: Labs (Last four charted values) WBC H 16.6 (APR 10) H 14.0 (APR 09) C 37.5 (APR 08) C 31.3 (APR 08) HB L 7.2 (APR 10) L 7.3 (APR 09) L 6.8 (APR 09) L 9.2 (APR 08) HCT L 21.5 (APR 10) L 20.7 (APR 09) L 19.5 (APR 09) L 28.6 (APR 08) Plt 172 (APR 10) 190 (APR 09) 317 (APR 08) 356 (APR 08) Na 136 (APR 10) 136 (APR 10) 139 (APR 09) 141 (APR 09) K 4.3 (APR 10) 4.1 (APR 10) 4.2 (APR 09) L 3.3 (APR 09) Cl 106 (APR 10) 106 (APR 10) 107 (APR 09) 106 (APR 09) CO2 L 15 (APR 10) L 17 (APR 10) 22 (APR 09) 21 (APR 09) BUN 10 (APR 10) 11 (APR 10) 15 (APR 09) H 29 (APR 09) Cr 0.90 (APR 10) 1.00 (APR 10) H 1.20 (APR 09) H 2.10 (APR 09) Glu R H 139 (APR 10) H 174 (APR 10) H 119 (APR 09) H 109 (APR 09) Ca L 7.8 (APR 10) L 7.7 (APR 10) L 7.5 (APR 09) L 7.7 (APR 09) Lactic 0.6 (APR 10) 1.3 (APR 10) 1.2 (APR 09) 1.3 (APR 09) PT 11.1 (APR 09) 10.5 (APR 08) INR 1.0 (APR 09) 1.0 (APR 08) AST 25 (APR 10) 25 (APR 08) 15 (APR 08) ALT 17 (APR 10) 18 (APR 08) 19 (APR 08) ALK P 81 (APR 10) 81 (APR 08) 95 (APR 08) T Bili 0.5 (APR 10) 0.6 (APR 08) 0.6 (APR 08) PTN L 6.0 (APR 10) 6.4 (APR 08) 8.1 (APR 08) ALB L 2.3 (APR 10) L 2.3 (APR 10) L 2.3 (APR 09) L 2.2 (APR 09) Lipase H 638 (APR 10) H 1965 (APR 09) H 1603 (APR 08) . APR 08 13:20 H 147 H 115 C 82 / H 295 H 5.8 L 5 H 5.40 \ APR 10 03:21 \ L 7.2 / H 16.6 172 / L 21.5 \ Blood Gases (Current Encounter/Past 24 Hours) pH Art 7.35 04/10/2022 06:33 pCO2 Art 28.8 LOW 04/10/2022 08:17 pO2 Art 158.0 HI 04/10/2022 08:17 HCO3 Art 16.0 LOW 04/10/2022 08:17 BE Art -9.0 LOW 04/10/2022 08:17 sO2 Art >99.1 04/10/2022 06:33 tHb Art 7.1 LOW 04/10/2022 08:17 FHHb <2.4 NA 04/10/2022 06:33 FIO2 Art 40 NA 04/10/2022 06:33 Delivery Device Type Art Ventilator NA 04/10/2022 06:33 Temperature, F Art 96.4 NA 04/10/2022 06:33 Art Blood Gas (ABG) Site Arterial Line NA 04/10/2022 06:33 Acceptable Huang's Test Art Non-Applicable NA 04/10/2022 06:33 Ventilator Mode Art AC NA 04/10/2022 06:33 Tidal Volume Set Art 450.0 NA 04/10/2022 06:33 Set Rate Art 14.0 NA 04/10/2022 06:33 Respiratory Rate Art 16.0 NA 04/10/2022 06:33 CPAP/PEEP Art 5.0 NA 04/10/2022 06:33 Comment Art supine NA 04/10/2022 06:33 ABG Num of Draw Attempts 1 NA 04/10/2022 06:33 PaO2/FiO2 calculated 395 NA 04/10/2022 06:33 Radiology Results (Last 48 hours) [id number] -- 04/08/2022 07:53 XA CVC Non Tunnel (04/08/2022 15:20) Result: CENTRAL VENOUS CATHETER PLACEMENT USING IMAGING GUIDANCECLINICAL HISTORY: Vascular access needed for medications and treatmentFluoroscopy Time: Less than 1 minuteAll elements of maximum sterile barrier technique were utilizedincluding cap, mask, sterile gown, sterile gloves, a large sterilesheet, hand hygiene, and 2% chlorhexidine (or acceptable alternative)for cutaneous antisepsis.Technique: The area was prepped in a routine sterile fashion. Localanesthesia was achieved with 1% lidocaine. A combination of sonographicand fluoroscopic guidance was used for venous access with imagesacquired. A micropuncture system was used to gain entry into the lowerright jugular vein. Using Seldinger technique a 15 cm 13 Chadian triplelumen temporary dialysis catheter was placed with tip positioned in theSVC. Both lumens flushed well and aspirated without resistance. Catheterwas secured to the skin with 2-0 nylon suture. Procedure was welltolerated.IMPRESSION:1. Successful placement right jugular 13 Chadian triple lumen temporarydialysis catheter.2. Sonographic and fluoroscopic guidance utilized with images acquired. CR Chest 1 Vw Portable (04/09/2022 03:34) Result: PORTABLE CHESTHISTORY: Respiratory failure, renal failure.COMPARISON: 04/08/2022.FINDINGS: A single portable radiograph of the chest was performed. Thereis a right internal jugular temporary dialysis catheter. There is anendotracheal tube identified with its tip terminating in the tracheaabove the brigitte. There is a new nasogastric tube below the diaphragm. Aleft internal jugular central line is seen with the tip in the superiorvena cava. The heart is normal in size. There is some mild left baseatelectasis. There is no edema or infiltrate.IMPRESSION:1. The life support lines are in good position.2. Mild left base atelectasis. There is no edema or infiltrate.Images reviewed, interpreted, dictated and electronically signed by MD Thai CR Chest 1 Vw Portable (04/10/2022 03:45) Result: PORTABLE CHESTHISTORY: Respiratory failure, fall, sepsis.COMPARISON: 04/09/2022.FINDINGS: A single portable radiograph of the chest was performed. Thepatient is rotated to the left. The life-support lines are stable and ingood position. The heart is normal in size. There is increasing leftbase opacity that may represent atelectasis/pneumonia with a smalleffusion. Aspiration is not excluded. There is mild pulmonary vascularcongestion.IMPRESSION:1. The life-support lines are stable.2. Increased left base opacity that may represent atelectasis and/orpneumonia. There may be a small left effusion. Aspiration is notexcluded.3. Mild vascular congestion.Images reviewed, interpreted, dictated and electronically signed by MD Thai ECHO done on 03/09/22: Impression: Normal sized left ventricle. Moderate left ventricular hypertrophy. Visually estimated ejection fraction 55% +/- 5%. Normal left ventricular systolic function. Indeterminate diastolic function. No significant valvular heart disease. Impression and Plan Pulmonary Acute hypoxic respiratory failure, on MV. CT Chest 03/01: Extensive right perihilar and bibasilar consolidations with bilateral pleural effusions and paratracheal reactive adenopathy. Concern for underlying mass not excluded. No known history of chronic lung diseases Smoker status not known Klebsiella pneumonia on 03/01/2022 Negative for RSV, COVID-19, and flu A/B CT chest 04/08: trace right effusion Cardiovascular Severe sepsis with shock, source not clear at this point, ?? renal vs others. Echocardiogram done on 03/09/2022. EF 55%. Normal systolic function. Moderate LVH. Indeterminate diastolic function. No significant valvular heart disease. ECHO 04/08: EF 60%, normal systolic function, indeterminate diastolic function, mild aortic regurgitation ID Severe sepsis with shock and MSOF including lung, liver, kidneys Leukocytosis Recent Klebsiella pneumonia Left gluteal decub ulcer requiring previous debridement, now with wound vac Wound culture +GNR Urine culture +GNR Neuro Now sedated on vent Baseline paraplegia CT head: no acute intracranial process Renal Acute kidney injury. Non oliguric type. On CRRT CKD III, baseline creatinine 1.6 per documentation Severe metabolic acidosis with elevated anion gap, improving Electrolyte disturbances Severe hyperkalemia, improved Lactic acidosis, improved CT abdomen: mild right hydronephrosis and hydroureter GI Acute pancreatitis. CT abdomen noted, no biliary dilation. Hyperammonemia, improved Endocrine T2DM with hyperglycemia. Glycemic control Hematology/Oncology Leukocytosis Anemia Metformin toxicity. Acute metabolic encephalopathy. Plan Vent bundle. Current vent settings: AC 14, TV 450, PEEP 5, and FiO2 40% SAT/SBT today Sedation: Fentanyl propofol for goal RASS -2. Off all sedation Hemodynamics: On levo only for MAP > 65. Antibiotics per ID: Merrem, Zyvox, and Micafungin Pneumonia PCR negative Sputum culture pending-unable to collect MRSA negative, ? stop Zyvox Blood cultures pending Urine culture +GNR Wound culture +GNR Nephrology following On CRRT Restart Bicarb gtt @50mL/hr. ABG noted still metabolic acidosis with respiratory acidosis. Nutrition: Currently NPO, start TF @10mL/hr via NG, place corpak post-pyloric Lactulose 20gm C1w-kkkt today Recheck ammonia level -normal Monitor hemoglobin. Transfuse for hemoglobin <7.0. Glycemic control: on insulin gtt. Glucose 140-180 mg/dL, off insulin gtt. Start Lantus 10units BID and SSI Prophylaxis: Pepcid, Heparin SQ AM labs and imaging Spoke to the son at the bedside questions and concerns were addressed plan of care was updated. Addendum: At 3 PM patient was seen and evaluated again. Patient was placed on breathing trial and parameters as follows: Hours PI 45. NIF -44. Vital capacity 484. Patient does have cuff leak. Clinically patient awake responding to simple commands. We will proceed with vent liberation. Spoke to nurse, RT, nurse practitioner at the bedside and plan of care was updated. Will start patient on BiPAP 4 hours on 4 hours off plus at night. We will repeat ABG. Case discussed with nurse, nurse practitioner, developer prover upholstering, during multidisciplinary round today. I have personally evaluated the patient; Obtained history, performed physical examination, reviewed laboratory studies. I have reviewed images independent of radiologist. I have actively directed the medical care, formulated diagnosis, and the plan of care. Patient requires a high complexity of decision making for assessment. 78 minutes critical care time excluding procedures. documented in this encounter Plan of Treatment Not on file documented as of this encounter Visit Diagnoses Not on filedocumented in this encounter
--- OUTSIDE RECORDS SUMMARY | 2025-02-21 13:37 | XMS_ITS | Encounter Summary ---
Author Organization [employer] [facility] Address [address] [place] [id number] Care Team Providers Care Generator Worker Name Role Phone Unavailable Primary Care Provider Unavailabl e Encounter Details Date Type Department Care Team (Late st Contact Info) Description 03/14/2022 Transcribed Document [facility] [place] Medicine [address] [place] [address] ProviderFlorentino MD [address] [place] [address] Social History Tobacco Use Types Packs/Day Years Used Date Smoking Tobacco: Never Assessed Comments Unknown Sex and Gender Information Value Date Recorded Sex Assigned at Not on file Legal Sex Female 1:44 PM CDT Gender Identity Not on file Sexual Orientation Not on file documented as of this encounter Miscellaneous Notes * Cerner Conversion Note - Florentino Lynne MD - 03/14/2022 12:52 PM CDT On Going Discharge Planning Entered On: 03/14/2022 12:54 EDT Performed On: 03/14/2022 12:52 EDT by EMIL GIRALDO RN - [employer] Bone RollerIdentity Management Developer Progress Note Discharge Arrangements : Patient Post-Acute [...] Patient Discharge Goal : Inpatient rehabilitation facility Is the Patient Meeting Medical Necessity : Yes Did you Attend Multidisciplinary Rounds? : Yes EMIL GIRALDO RN - [employer] - 03/14/2022 12:52 EDT Narrative Progress Note Narrative Progress Note : RRS High Day 12/08 Patient was admitted for acute respiratory failure. Hx of paraplegia, CKD3, DM2. PT indicates need for rehab at discharge and Cm has a bed offer from [facility]. Patient is willing to go. CM will ask Rachel to start the precert. IV zosyn/doxy. Need duration. DCP: snf Historical Progress Note : RRS High Day 08/11 Patient was admitted for acute respiratory failure. Hx of paraplegia, CKD3, DM2. Patient was last extubated on 03/08. Patient needs rehab at discharge and Cm has updated referrals and expanded the referral area. Waiting for return call from [facility]. IV zosyn/doxy. Need duration. Creatinine was up slightly today. DCP: snf EMIL GIRALDO RN - [employer] - 03/13/22 14:55:16 CM is waiting for a return call from Rachel with [facility] about possible bed offer. EMIL GIRALDO RN - [employer] - 03/13/22 08:23:44 CM spoke with Matilde at [facility] and they cannot take the patient. Cm sent referrals to area snfs. EMIL GIRALDO RN - [employer] - 03/12/22 09:15:18 pt transferred off unit prior to cm assessment. DCP: PT/OT re-evals pending to assist with discharge plan. Anticipate patient will need inpatient rehab. TRISTAN TAYLOR, RN-[employer] - 03/11/22 15:52:03 RAR High ELOS: 12 days HD#7 Covid Vaccine X2 +Booster 61 year old female with history paraplegia, CKD3, DM2, HTN; presented to [facility] with SOB, fever, chills and productive Cough X1 week. Admitted for PNA and debridement DTI to left buttock. Cardiac arrested, intubated and transferred to [facility]. She was extubated a couple days later and reintubated the same day and extubated. She was reintubated on 03/01 after failed BiPap and transferred to [facility]. Of note patient had trach/PEG in 2009. Consults: Pulmonary, ID 7/2 Intubated 03/08 Extubated 03/01 Central Line Patient extubated on Thursday. Awake and alert, following commands. O2 sat 99% on 3 liters. CAREER COORDINATOR swallow eval, not safe to initiate po diet, continue corpak with TF. Renal function improving. DCP: PT/OT re-evals pending to assist with discharge plan. Anticipate patient will need inpatient rehab. Will fax referral when therapy notes available. STEFAN FERNANDEZ, RN-[employer] - 03/09/22 14:31:25 RAR High ELOS: 5 days HD#3 Covid Vaccine X2 +Booster 61 year old female with history paraplegia, CKD3, DM2, HTN; presented to [facility] with SOB, fever, chills and productive Cough X1 week. Admitted for PNA and debridement DTI to left buttock. Cardiac arrested, intubated and transferred to [facility]. She was extubated a couple days later and reintubated the same day and extubated. She was reintubated on 03/01 after failed BiPap and transferred to [facility]. Of note patient had trach/PEG in 2009. Consults: Pulmonary, ID 7/ Intubated Vent Day #5 03/01 Central Line On MV per ET AC 16/400/40%/P8, sedated with Fentanyl and Propofol, awake and following commands. Na+ trending up 149. Corpak with TF. ID plan: IV Zosyn q8. Wound Vac to left buttock. Patient lives alone in [place]. She is and has one son FREDO. Her PCP s Dr. Cabello. Patient is ADL independent at her baseline. Only inpatient rehab stay was at [facility] at age 9. No prior home health services. She has a CPap and dated WC at home. She transports by her son or Medicaid van. DCP: CM spoke with patient's son FREDO on the phone. He and his plan to ultimately take her home to their house in [place] after hospitalization and LTACH/Rehab stay for IV abx and wound care. Patient has managed medicaid and does not have a SNF benefit. Her inpatient options at discharge will be LTACH or acute rehab versus home with home health. Early referral to [facility]. Son asked if we could assist in getting her a new WC at discharge. He will let CM know the name of her DME provider to see if she is eligible for a new one. CM will assist to get his FMLA paperwork over to [employer] office. STEFAN FERNANDEZ, RN-[employer] - 03/05/22 13:34:00 EMIL GIRALDO, PRIMO - [employer] - 03/14/2022 12:52 EDT documented in this encounter Plan of Treatment Not on file documented as of this encounter Visit Diagnoses Not on filedocumented in this encounter
--- OUTSIDE RECORDS SUMMARY | 2025-02-21 13:37 | XMS_ITS | Encounter Summary ---
Author Organization [facility] [facility] Address [address] [place] [address] Care Team Providers Care Forex Trader Name Role Phone Unavailable Primary Care Provider Unavailabl e Encounter Details Date Type Department Care Team (Late st Contact Info) Description 03/04/2022 Transcribed Document [facility] [place] Family Medicine [address] [place] [address] ProviderFlorentino MD [address] [place] [address] Social History Tobacco Use Types Packs/Day Years Used Date Smoking Tobacco: Never Assessed Comments Unknown Sex and Gender Information Value Date Recorded Sex Assigned at Not on file Legal Sex Female 1:44 PM CDT Gender Identity Not on file Sexual Orientation Not on file documented as of this encounter Miscellaneous Notes * Cerner Conversion Note - Florentino ProviderMD - 03/04/2022 11:25 AM CDT UM Authorization Entered On: 03/04/2022 11:25 EDT Performed On: 03/04/2022 11:25 EDT by Mallory Sanchez, Kiln Furniture Caster Primary Insurance Authorization Authorization and Policy Numbers : Insurance 1 Health Plan: [facility] Policy Number: [id number] Authorization Number: Insurance Primary Name : [facility] Policy Number: [id number] Authorization Number: Authorization Status-Primary : Drg approved Reference Number-Primary : [id number] Number of Days Authorized-Primary : 8 Day(s) Authorized Service Begin Date-Primary : 03/01/2022 EDT Authorized Service End Date-Primary : 03/09/2022 EDT Historical Authorization Comments-Primary : Comment 1: Authorized per fax 03/02/22 @ 7304. Approved DRG admission. Next reivew due 03/10. -Hannah Castillo. (Mallory Sanchez, Kiln Furniture Caster 03/04/2022 11:20) Comment 2: Rec vm from Hannah at [facility] on 1753 line on 03/02/22 at 8:42am She is req clinical be sent in Transf VM to [facility] so she could follow up (SHERIF LYNCH, Speech Therapist Early Intervention 03/04/2022 09:42) Comment 3: auth # per star notes, faxed clinicals via [employer] 03/01 (JOSEPH GUTIERREZ, RN-UTILIZATION MANAGEMENT REVIEW NON-EXEMPT 03/02/2022 11:28) Mallory Sanchez, Kiln Furniture Caster - 03/04/2022 11:25 EDT Electronically signed by [facility] Conversion Feed Mixer Helper Cerner at 12/21/2022 5:05 PM CDT documented in this encounter Plan of Treatment Not on file documented as of this encounter Visit Diagnoses Not on filedocumented in this encounter
--- OUTSIDE RECORDS SUMMARY | 2025-02-21 13:37 | XMS_ITS | Encounter Summary ---
Author Organization [employer] [facility] Address [address] [place] [address] Care Team Providers Care Manufacturing Maintenance Mechanic Name Role Phone Unavailable Primary Care Provider Unavailabl e Encounter Details Date Type Department Care Team (Late st Contact Info) Description 12/18/[address] [facility] [place] Family Medicine [address] [place] [address] ProviderFlorentino MD [address] [place] [address] Social History Tobacco Use Types Packs/Day Years Used Date Smoking Tobacco: Never Assessed Comments Unknown Sex and Gender Information Value Date Recorded Sex Assigned at Not on file Legal Sex Female 1:44 PM CDT Gender Identity Not on file Sexual Orientation Not on file documented as of this encounter Miscellaneous Notes * Cerner Conversion Note - Florentino ProviderMD - 10/19/2022 12:56 PM LOCAL FLATBED DRIVER COVID-19 Vaccination Entered On: 02/23/2022 15:56 EDT Performed On: 02/23/2022 12:40 EDT by Linda Pierre Rn COVID-19 Vaccination Patient Vaccinated for COVID-19 : Not vaccinated Does Patient want a COVID-19 Vaccine? : No Linda Pierre Rn - 02/23/2022 15:56 EDT documented in this encounter Plan of Treatment Not on file documented as of this encounter Visit Diagnoses Not on filedocumented in this encounter
--- OUTSIDE RECORDS SUMMARY | 2025-02-21 13:37 | XMS_ITS | Encounter Summary ---
Author Organization [employer] [facility] Address [address] [place] [address] Care Team Providers Care Ux Designer Name Role Phone Unavailable Primary Care Provider Unavailabl e Encounter Details Date Type Department Care Team (Late st Contact Info) Description 03/14/2022 Transcribed Document [facility] [place] [address] [place] [address] ProviderFlorentino MD [address] [place] [address] Social History Tobacco Use Types Packs/Day Years Used Date Smoking Tobacco: Never Assessed Comments Unknown Sex and Gender Information Value Date Recorded Sex Assigned at Not on file Legal Sex Female 1:44 PM CDT Gender Identity Not on file Sexual Orientation Not on file documented as of this encounter Miscellaneous Notes * Cerner Conversion Note - Florentino Lynne MD - 03/14/2022 9:49 AM CDT Patient: ALYSSA AZUL Age: 61 [...] At Bedtime , Medications (40) Active Scheduled: (15) albuterol-ipratropium inh 3 mL [...] History of obstructive sleep apnea / IMO [id number] / Confirmed, Active Problems (5) Chronic kidney disease (CKD), stage III (moderate) Diabetes History of obstructive sleep apnea Hyperlipidemia Hypertension Objective VS/Measurements Measurements from flowsheet : Measurements 03/14/2022 5:00 EDT Height Source Chart Height Entry Format [place] Height/Length, [place] (ft) 5 ft Height/Length [place] 4 Inch CLINICALHEIGHT 162.56 cm Routine Weight Source Bed scale Routine Weight Entry Format La[place]ne Routine Weight, Pounds 179 lb Routine Weight, Ounces 1 oz Routine Weight Calculation 81.39 kg Body Mass Index (BMI), Routine 30.8 kg/m2 Body Surface Area (BSA), Routine 1.87 m2 03/13/2022 5:00 EDT Height Source Chart Height Entry Format [place] Height/Length, M[place]AN (ft) 5 ft Height/Length [place] 4 Inch CLINICALHEIGHT 162.56 cm Routine Weight Source Bed scale Routine Weight Entry Format [place]ne Routine Weight, Pounds 171 lb Routine Weight, Oun[place] 1 oz Routine Weight Calculation 77.76 kg Body Mass Index (BMI), Routine 29.43 kg/m2 Body Surface Area (BSA), Routine 1.83 m2 , Vitals Signs (last 24 hrs) Last Charted Minimum Maximum Temp 98.5 (MAR 13 23:56) 98.5 (MAR 13 23:56) 99 (MAR 13:18) Mon HR 78 (MAR 14 06:00) 76 (MAR 14 00:29) 89 (MAR 13 10:38) Resp Rate 16 (MAR 14 06:00) 16 (MAR 13 21:00) 18 (MAR 13 17:18) SBP 104 (MAR 13 23:56) 101 (MAR 13 10:38) H 147 (MAR 13:18) DBP L 55 (MAR 13 23:56) L 55 (MAR 13 23:56) 72 (MAR 13 17:18) MAP 70 (MAR 13 23:56) 70 (MAR 13 23:56) 97 (MAR 13:) SpO2 98 (MAR 14 08:47) L 93 (MAR 13 17:18) 99 (MAR 14 00:05) Intake & Output Totals Last 24 Hours (7a-7a) Intake (19 Events) Medications (310.03 mL) Oral Intake (240 mL) Output (0 Events) No output events found in the last 24 hours. Input Total: 550.03 mL Output Total: 0 mL Balance: 550.03 mL Physical exam contact may be limited [...] (Last four charted values) WBC 6.4 (MAR 14) 6.8 (MAR 13) 5.3 (MAR 12) 5.0 (MAR 11) HB L 7.6 (MAR 14) L 8.2 (MAR 13) L 8.3 (MAR 12) L 7.3 (MAR 12) HCT L 24.5 (MAR 14) L 26.2 (MAR 13) L 26.9 (MAR 12) L 23.6 (MAR 12) Plt L 127 (MAR 14) L 134 (MAR 13) L 146 (MAR 12) L 140 (MAR 11) Na 137 (MAR 14) 138 (MAR 13) 138 (MAR 12) 140 (MAR 11) K 3.7 (MAR 14) 3.5 (MAR 13) 3.5 (MAR 12) 3.6 (MAR 11) Cl 104 (MAR 14) 103 (MAR 13) L 101 (MAR 12) 106 (MAR 11) CO2 25 (MAR 14) 27 (FEB 14) 29 (MAR 12) 31 (MAR 11) BUN H 57 (MAR 14) H 52 (FEB 14) H 49 (MAR 12) H 42 (MAR 11) Cr H 2.20 (MAR 14) H 2.10 (MAR 13) H 2.00 (MAR 12) H 1.80 (MAR 11) Glu R H 139 (MAR 14) H 179 (MAR 13) H 176 (MAR 12) H 240 (MAR 11) Ca 8.8 (MAR 14) 8.7 (MAR 13) 8.9 (MAR 12) 9.1 (MAR 11) Lactic 0.5 (MAR 09) 0.5 (MAR 04) [...] renal function - No emergent need of DUPLICATION SPECIALIST. - Monitor H/H and transfuse for Hgb less than 7.0 High risk and complexity patient. documented in this encounter Plan of Treatment Not on file documented as of this encounter Visit Diagnoses Not on filedocumented in this encounter
--- OUTSIDE RECORDS SUMMARY | 2025-02-21 13:37 | XMS_ITS | Encounter Summary ---
Author Organization [employer] [facility] Address [address] [place] [address] Care Team Providers Care Farmer Vegetable Name Role Phone Unavailable Primary Care Provider Unavailabl e Encounter Details Date Type Department Care Team (Late st Contact Info) Description 02/24/2022 Transcribed Document [facility] [place] [address] [place] [address] ProviderFlorentino MD [address] [place] [address] Social History Tobacco Use Types Packs/Day Years Used Date Smoking Tobacco: Never Assessed Comments Unknown Sex and Gender Information Value Date Recorded Sex Assigned at Not on file Legal Sex Female 1:44 PM CDT Gender Identity Not on file Sexual Orientation Not on file documented as of this encounter Miscellaneous Notes * Cerner Conversion Note - Florentino Lynne MD - 02/24/2022 10:34 AM CDT Patient: ALYSSA AZUL Age: [...] had cardiac arrest and [place] [facility] [place] she was on the ventilator [...] but RR increases and TV is marginal. Health Status Allergies: Allergic Reactions (Selected) No Known Allergies, Allergies (1) Active Reaction No Known Allergies None Documented Current medications: (Selected) Inpatient Medications Ordered Chloraseptic Menthol 1.4% topical spray: 1 Mccloud, Oral, Q2H, PRN: Sore Throat Dextrose 50% injection: 12.5 Gram, IV Push, Q15Min, PRN: Other (See Comment) Dextrose 50% injection: 25 Gram, IV Push, Q15Min, PRN: Other (See Comment) Insulin regular injection 100 Units + Sodium Chloride 0.9% intravenous solution 100 mL: Corrective Insulin Drip, IntraVENous NORepinephrine injection 8 mg + NaCl 0.9% for drip 250 mL: TITRATE, IntraVENous Normal Saline Flush: 10 mL, IV Push, Q12H Normal Saline Flush: 10 mL, IV Push, See Comment, PRN: IV Use Zosyn + Sodium Chloride 0.9% intravenous solution 50 mL: 2.25 Gram, 16.67 mL/Hr, IV Piggyback, Q8HInt Zosyn + Sodium Chloride 0.9% intravenous solution 50 mL: 2.25 Gram, 16.67 mL/Hr, IV Piggyback, Q8HInt acetaminophen: 650 mg, Oral, Q6H, PRN: Pain (Mild 1-3) albuterol 2.5 mg/3 mL (0.083%) inhalation solution: 3 mL, Nebulized Inhalation, RT_Q4H, PRN: Shortness of Breath albuterol-ipratropium 2.5 mg-0.5 mg/3 mL inhalation solution: 3 mL, Nebulized Inhalation, RT_Q4H dexmedeTOMIDine injection 400 mcg + NaCl 0.9% for drip 100 mL: TITRATE, IntraVENous fentaNYL: 50 mcg, IV Push, Q2H, PRN: Pain glucagon: 1 mg, IntraMuscular, Q15Min, PRN: Other (See Comment) glucose 4 g oral tablet, chewable: 16 Gram, 4 Tab, Chew, Q15Min, PRN: Other (See Comment) glucose 40% oral gel: 15 Gram, 37.5 mL, Oral, Q15Min, PRN: Other (See Comment) insulin glargine: 10 Units, SubCutaneous, Daily insulin regular sliding scale: Scale A, SubCutaneous, Q6H midazolam 100 mg + NaCl 0.9% Premix Diluent 100 mL: TITRATE, IntraVENous ondansetron: 4 mg, IV Push, Q6H, PRN: Nausea/Vomiting pantoprazole: 40 mg, IV Push, Daily traMADol: 50 mg, Oral, Q6H, PRN: Pain (Moderate 4-6) Pending Complete pneumococcal 23-polyvalent vaccine: 0.5 mL, IntraMuscular, [id number] Documented Medications Documented Hollywood-3 1000 mg oral capsule: 1 Cap, Oral, [...] 1 Tab, Oral, Daily, 0 Refill(s), Medications (23) Active Scheduled: (7) #NaCl 0.9% *FLUSH* inj 10 mL 10 mL, IV Push, Q12H albuterol-ipratropium inh 3 mL 3 mL, Nebulized Inhalation, RT_Q4H insulin glargine 1 unit/0.01 mL inj 10 Units 0.1 mL, SubCutaneous, Daily insulin regular 1 unit/0.01 mL inj 3mL Scale A, SubCutaneous, Q6H pantoprazole 40 mg inj 40 mg, IV Push, Daily piperacillin-tazobactam + NaCl 0.9% *ADV* 50 mL 2.25 Gram, IV Piggyback, Q8HInt piperacillin-tazobactam + NaCl 0.9% *MBP* 50 mL 2.25 Gram, IV Piggyback, Q8HInt Continuous: (4) dexmedeTOMIDine 400 mcg + NaCl 0.9% TITRATE 100 mL 100 mL, IntraVENous insulin regular 100 Units + NaCl 0.9% 100 mL 100 mL, IntraVENous midazolam/NaCl 0.9% *UBC* 100 mg + Premix Diluent NaCl 0.9% TITRATE 100 mL 100 mL, IntraVENous NORepinephrine 8 mg + NaCl 0.9% T ITRATE 250 mL 250 mL, IntraVENous PRN: (12) #NaCl 0.9% *FLUSH* inj 10 mL 10 [...] g 15 Gram 37.5 mL, Oral, Q15Min ondansetron 4 mg/2 mL inj 4 mg 2 mL, IV Push, Q6H phenol 1.4% throat spray 1 Mccloud, Oral, Q2H traMADol 50 mg tab 50 mg 1 Tab, Oral, Q6H Problem list: Medical History of obstructive sleep apnea / IMO [id number] / Confirmed, Active Problems (1) History of [...] 24 hrs) Last Charted Minimum Maximum Temp 97.9 (FEB 24 08:00) 97.9 (FEB 24 08:00) 99.0 (FEB 23 12:00) Mon HR 97 (FEB 24 10:00) 60 (FEB 24 05:29) 99 (FEB 24 09:35) Resp Rate H 26 (FEB 24 10:00) 15 (FEB 24 08:10) H 27 (FEB 24 08:45) SBP H 150 (FEB 24 10:00) 98 (FEB 23 13:30) H 163 (FEB 24 02:15) DBP 74 (FEB 24 10:00) L 54 (FEB 23 13:30) H 92 (FEB 24 02:15) MAP 105 (FEB 24 10:00) 70 (FEB 23 13:30) 121 (FEB 24 02:15) SpO2 97 (FEB 24 10:00) 94 (FEB 23 13:15) 100 (FEB 23 10:45) General: intubated, sedated. Eye: Pupils are equal, round and reactive to light, Normal conjunctiva. HENT: Normocephalic, Oral mucosa is moist. Neck: Supple, Non-tender. Respiratory: Respirations are non-labored, Breath sounds are equal, coarse bs bilat. Cardiovascular: Normal rate, Regular rhythm, increasing le edema bilat. Gastrointestinal: Soft, Non-tender, Non-distended, Normal bowel sounds. Musculoskeletal: Normal range of motion, Normal strength, No tenderness, contractures. Integumentary: Warm, Dry, [place], No rash. Neurologic: Alert, paraplegia, bilat upper ext weakness, nods head appropriately. Psychiatric: Cooperative. Review / Management FEB 24 03:37 143 110 H 49 / H 217 3.7 L 20 H 3.17 \ FEB 24 03:37 \ L 7.5 / 8.9 217 / L 23.1 \ Blood Gases (Current Encounter/Past 24 Hours) No Blood Gas Results Found (Past 24 Hours) CMP Results (Current Encounter/Past 24 Hours) Protein Total 5.4 Gram/dL LOW 02/24/2022 03:59 A/G Ratio 0.5 LOW 02/24/2022 03:59 Creatinine Level 3.17 mg/dL OH 02/24/2022 03:59 eGFR 18 mL/min/1.73m2 LOW 02/24/2022 03:59 Globulin 3.7 Gram/dL 02/24/2022 03:59 eGFR NonAfrican 15 mL/min/1.73m2 LOW 02/24/2022 03:59 Bun/Creatinine 15.5 02/24/2022 03:59 Sodium Level 143 mmol/L 02/24/2022 03:59 Potassium Level 3.7 mmol/L 02/24/2022 03:59 Chloride Level 110 mmol/L 02/24/2022 03:59 Carbon Dioxide Level 20 mmol/L LOW 02/24/2022 03:59 Anion Gap 17 02/24/2022 03:59 Alk Phos 49 Units/Liter 02/24/2022 03:59 ALT 16 Units/Liter 02/24/2022 03:59 AST 13 Units/Liter 02/24/2022 03:59 Blood Urea Nitrogen 49 mg/dL OH 02/24/2022 03:59 Glucose Level 217 mg/dL OH 02/24/2022 03:59 Albumin Level 1.7 Gram/dL LOW 02/24/2022 03:59 Bilirubin Total 0.4 mg/dL 02/24/2022 03:59 Calcium Level 7.3 mg/dL LOW 02/24/2022 03:59 Magnesium Level 2.4 mg/dL 02/24/2022 03:55 Cardiac Markers (Current Encounter/Past 24 Hours) ProBNP 8625 pg/mL OH 02/23/2022 19:49 Coagulation Results (Current Encounter/Past 24 Hours) No Coagulation Results Found (Past 24 Hours) Radiology Results (Last 48 hours) [id number] -- 02/22/2022 00:01 CR Chest 1 Vw [...] personally reviewed, interpreted and dictated by Sravani Connors.Nicanor ALLEN Chest 1 Vw Portable (02/23/2022 03:42) Result: [...] review: Labs (Last four charted values) WBC 8.9 [...] 1.9 (FEB 23) L 1.9 (FEB 21) . Impression and Plan cardiopulmonary arrest secondary to metabolic acidosis and respiratory failure - improved. neuro status returned to baseline Acute respiratory failure - MV D#3, not able to try PS again today due to sedation. Not doing well with sbt today. Start pt/ot on vent. Minimize sedation. Sepsis, septic shock - resolved Acute - [...] add CPT bilat Left hip decub - anticipate wound vac today. Abx per ID. DM - swtiched to insulin SSI HTN - bp rx on hold, May need to restart with decreased sedation, added prn hydralazine hyperlipidemia paraplegia Full code Started tube feeds 02/23, nutrition following GI ppx - started on PPI DVT ppx - started on heparin sq 45 min CCT Discussed with nursing, RT. documented in this encounter Plan of Treatment Not on file documented as of this encounter Visit Diagnoses Not on filedocumented in this encounter
--- OUTSIDE RECORDS SUMMARY | 2025-02-21 13:37 | XMS_ITS | Encounter Summary ---
Author Organization [employer] Address [address] [place] [address] Care Team Providers Care Engraver Set Up Operator Name Role Phone Unavailable Primary Care Provider Unavailabl e Encounter Details Date Type Department Care Team (Late st Contact Info) Description 03/14/2022 Transcribed Document [facility] [place] [address] [place] [address] ProviderFlorentino MD [address] [place] [address] Social History Tobacco Use Types Packs/Day Years Used Date Smoking Tobacco: Never Assessed Comments Unknown Sex and Gender Information Value Date Recorded Sex Assigned at Not on file Legal Sex Female 1:44 PM CDT Gender Identity Not on file Sexual Orientation Not on file documented as of this encounter Miscellaneous Notes * Cerner Conversion Note - Florentino Lynne MD - 03/14/2022 4:14 PM CDT Patient: ALYSSA AZUL Age: 61 years Sex: Female : 1960 Associated Diagnoses: None Author: HIGINIO AREVALO MD-INF Antibiotics: Zosyn and doxy CC: Sacral wound Subjective: Patient without acute changes with no fever hemodynamically stable. Patient is on room air Objective: Vitals Signs (last 24 hrs) Last Charted Minimum Maximum Temp 98.3 (MAR 14 10:15) 98.3 (MAR 14 10:15) 99 (MAR 13 17:18) Mon HR 96 (MAR 14 11:04) 76 (MAR 14 00:29) 96 (MAR 14 10:54) Resp Rate 16 (MAR 14 10:15) 16 (MAR 13 21:00) 18 (MAR 13 17:18) SBP 140 (MAR 14 10:15) 104 (MAR 13 23:56) H 147 (MAR 13 17:18) DBP 77 (MAR 14 10:15) L 55 (MAR 13 23:56) 77 (MAR 14 10:15) MAP 103 (MAR 14 10:15) 70 (MAR 13 23:56) 103 (MAR 14 10:15) SpO2 L 92 (MAR 14 12:09) L 92 (MAR 14 12:09) 99 (MAR 14 00:05) PE: General: Patient will awaken and more [...] (MAR 11) Na 137 (MAR 14) 138 (FEB 14) 138 (MAR 12) 140 (MAR 11) K 3.7 (MAR 14) 3.5 (MAR 13) 3.5 (MAR 12) 3.6 (MAR 11) Cl 104 (MAR 14) 103 (MAR 13) L 101 (MAR 12) 106 (MAR 11) CO2 25 (MAR 14) 27 (MAR 13) 29 (MAR 12) 31 (MAR 11) BUN H 57 (MAR 14) H 52 (MAR 13) H 49 (MAR 12) H 42 (MAR [...] 2.8 (MAR 10) L 2.3 (MAR 09) CRP down to 1.5 MICRO: resp culture with kleb IMAGING: No Radiology Results Found IMPRESSION: - Sepsi with klebsiella pneumonia - decubitus wounds from immobility - Large left gluteal soft tissue infection, ulceration, necrosis, to level of soft tissue: Status post I&D x3 at [facility] with large open wound. -Acute hypoxic respiratory failure now extubated -Aspiration pneumonia - Cardiac arrest at outside hospital prior to transfer - CKD campus recruiting coordinator at 1.8 - Anemia - paraplegia - Obesity - DM2 RECOMMENDATIONS/PLANS: - continue doxy and switch Zosyn to oral Augmentin renally dosed -Monitor BMP - looking for placement. I will see again on Thursday please call if any questions over the weekend documented in this encounter Plan of Treatment Not on file documented as of this encounter Visit Diagnoses Not on filedocumented in this encounter
--- OUTSIDE RECORDS SUMMARY | 2025-02-21 13:37 | XMS_ITS | Encounter Summary ---
Author Organization [employer] [facility] Address [address] [place] [address] Care Team Providers Care Disease Case Manager Rn Name Role Phone Unavailable Primary Care Provider Unavailabl e Encounter Details Date Type Department Care Team (Late st Contact Info) Description 04/10/2022 Transcribed Document [facility] [place] Family Medicine [address] [place] [address] ProviderFlorentino MD [address] [place] [address] Social History Tobacco Use Types Packs/Day Years Used Date Smoking Tobacco: Never Assessed Comments Unknown Sex and Gender Information Value Date Recorded Sex Assigned at Not on file Legal Sex Female 1:44 PM CDT Gender Identity Not on file Sexual Orientation Not on file documented as of this encounter Miscellaneous Notes * Cerner Conversion Note - Florentino Lynne MD - 04/10/2022 9:33 AM CDT On Going Discharge Planning Entered On: 04/10/2022 9:41 EDT Performed On: 04/10/2022 9:33 EDT by SHERIF PAYNE, RN-Reforestation WorkerRiver Driver Progress Note Discharge Arrangements : Patient Post-Acute Information Patient Name: ALYSSA AZUL Gender: Female : [birth year] Age: 61 Years No Post-Acute Placement(s) Listed No Post-Acute Service(s) Listed No [place] Referral(s) Listed Discharge Options Discussed with Patient : Home Health, long-term Patient Discharge Goal : [facility] facility SHERIF PAYNE, RN-Reforestation Worker - 04/10/2022 9:33 EDT Narrative Progress Note Narrative Progress Note : HD# 2. elos: 5. rar: high acute hypoxic resp failure. severe sepsis: shock. campos/ckd. acute pancreatitis. diabetes. paraplegia. covid 19: negative 8-9. following commads. mechanical ventilation. crrt. fentanyl gtt. insulin gtt. levophed gtt. evaluation Dr Abraham, housing property manager. see her notes. no vaginal laceration. return call from Gayathri Marksn, . she contacted lorrie Cohen for [place], [facility], [facility] & [facility] with family concerns. [phone]. [facility] accepted case: [id number]. dcp: family decline return to [facility]. they hope she will improve to dc home with them in [place]. spoke with Monique Groves PA, edi attending. Andrés bedside RN. Historical Progress Note : received email from [facility]. they have accepted & will assign to social work professor. SHREIF PYANE, RN-Reforestation Worker - 04/09/22 15:19:44 [facility] reported filed. [id number]. spoke with clover Bowen rn, Amber, manager community outreach & Mary housecleaner. SHERIF PAYNE, RN-Reforestation Worker - 04/09/22 12:07:07 SHERIF PAYNE, RN-Reforestation Worker - 04/10/2022 9:33 EDT documented in this encounter Plan of Treatment Not on file documented as of this encounter Visit Diagnoses Not on filedocumented in this encounter
--- OUTSIDE RECORDS SUMMARY | 2025-02-21 13:37 | XMS_ITS | Encounter Summary ---
Author Organization [employer] Address [address] [place] [id number] Care Team Providers Care Analytical Research Chemist Name Role Phone Unavailable Primary Care Provider Unavailabl e Encounter Details Date Type Department Care Team (Late st Contact Info) Description 03/14/2022 Transcribed Document [facility] [place] Family Medicine [address] [place] [address] ProviderFlorentino MD [address] [place] [address] Social History Tobacco Use Types Packs/Day Years Used Date Smoking Tobacco: Never Assessed Comments Unknown Sex and Gender Information Value Date Recorded Sex Assigned at Not on file Legal Sex Female 1:44 PM CDT Gender Identity Not on file Sexual Orientation Not on file documented as of this encounter Miscellaneous Notes * Cerner Conversion Note - Florentino Lynne MD - 03/14/2022 10:45 AM CDT [facility] Authorization Entered On: 03/14/2022 10:47 EDT Performed On: 03/14/2022 10:45 EDT by Mallory Sanchez, Business Team Leader Primary Insurance Authorization Authorization and Policy Numbers : Insurance 1 Health Plan: [facility] Policy Number: [id number] Authorization Number: Insurance Primary Name : [facility] Policy Number: [id number] Authorization Number: Authorization Status-Primary : Partially approved Reference Number-Primary : [id number] Number of Days Authorized-Primary : 14 Day(s) Authorized Service Begin Date-Primary : 03/01/2022 EDT Authorized Service End Date-Primary : 03/15/2022 EDT Authorization Comments-Primary : Partially approved per fax 03/14/22 @ 1021. Denied continued inpatient DOS forward. Placed in Denials 2021 folder. Historical Authorization Comments-Primary : Comment 1: c/s auth req faxed via cortex 03/12-03/13 (JOSEPH GUTIERREZ, RN-UTILIZATION MANAGEMENT REVIEW NON-EXEMPT 03/13/2022 16:27) Comment 2: CLINICAL UPDATE FAXED VIA [employer] 03/05-03/10 (Shilpi [address], RN 03/10/2022 13:19) Comment 3: UPLOADED CLINICALS VIA [employer] AND FAXED TO [facility]/ AWAITING CALLBACK/ REFERENCE # LISTED ON FRONT PAGE. (Jelani Anne, sock lining stitcher 03/04/2022 14:03) Comment 4: Authorized per fax 03/02/22 @ 1335. Approved DRG admission. Next reivew due 03/10. -Hannah Castillo. (Mallory Sanchez, Business Team Leader 03/04/2022 11:20) Comment 5: Rec vm from Hannah at [facility] on 1753 line on 03/02/22 at 8:42am She is req clinical be sent in Transf VM to [facility] so she could follow up (SHERIF LYNCH, Recreation Therapy Aides Teacher 03/04/2022 09:42) Comment 6: auth # per star notes, faxed clinicals via [employer]GEN 03/01 (JOSEPH GUTIERREZ, RN-UTILIZATION MANAGEMENT REVIEW NON-EXEMPT 03/02/2022 11:28) Mallory Sanchez, Business Team Leader - 03/14/2022 10:45 EDT Electronically signed by Sum[facility] Conversion Property Site Manager Cerner at 12/21/2022 5:10 PM CDT documented in this encounter Plan of Treatment Not on file documented as of this encounter Visit Diagnoses Not on filedocumented in this encounter
--- OUTSIDE RECORDS SUMMARY | 2025-02-21 13:37 | XMS_ITS | Encounter Summary ---
Author Organization [employer] Address [address] [place] [address] Care Team Providers Care Concrete Worker Name Role Phone Unavailable Primary Care Provider Unavailabl e Encounter Details Date Type Department Care Team (Late st Contact Info) Description 03/14/2022 Transcribed Document [facility] [place] [facility] [place] [address] ProviderFlorentino MD [facility] [address] Social History Tobacco Use Types Packs/Day Years Used Date Smoking Tobacco: Never Assessed Comments Unknown Sex and Gender Information Value Date Recorded Sex Assigned at Not on file Legal Sex Female 1:44 PM CDT Gender Identity Not on file Sexual Orientation Not on file documented as of this encounter Miscellaneous Notes * Cerner Conversion Note - Florentino Lynne MD - 03/14/2022 9:00 AM CDT [facility] Inpatient Documentation Entered On: 03/14/2022 13:20 EDT Performed On: 03/14/2022 11:00 EDT by Edwina Fraire LPN-[id number]-Yupgffzozvw Therapy WO Admission Date : Admit Date 03/01/2022 17:[address] : No diagnoses found. Reason for WOCN Visit : Assessment, ongoing, Dressing change Admitting Diagnosis ST : Reason for Admission ACUTE RESP FAILURE WOCN Assessment Summary : Wound care team consulted to manage NPWT. WOund care steamblaster at bedside patient is on HENRIETTA surface. Removed old dressing 2 pcs. angel foam, cleansed with saline wound wash, pat dry prepped periwound skin with barrier film and draped, placed 2pcs angel foam and draped. NPWT is operating at 125mmHg. If any chnages to skin integrity please consult wound care dept. Edwina Fraire LPN-[id number]-Zigcufurjcm Therapy - 03/14/2022 13:18 EDT documented in this encounter Plan of Treatment Not on file documented as of this encounter Visit Diagnoses Not on filedocumented in this encounter
--- OUTSIDE RECORDS SUMMARY | 2025-02-21 13:37 | XMS_ITS | Encounter Summary ---
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 Name Role Phone Unavailable Primary Care Provider Unavailabl e Encounter Details Date Type Department Care Team (Late st Contact Info) Description 04/10/2022 Transcribed Document [facility] [place] Family Medicine [address] [place] [address] ProviderFlorentino MD [address] [place] [address] Social History Tobacco Use Types Packs/Day Years Used Date Smoking Tobacco: Never Assessed Comments Unknown Sex and Gender Information Value Date Recorded Sex Assigned at Not on file Legal Sex Female 1:44 PM CDT Gender Identity Not on file Sexual Orientation Not on file documented as of this encounter Miscellaneous Notes * Cerner Conversion Note - Florentino Lynne MD - 04/10/2022 9:56 AM CDT Patient: ALYSSA AZUL Age: 61 years Sex: Female : 1960 Associated Diagnoses: None Author: VINNIE SWEENEY MD Subjective Remains critically ill, intubated on little bit of levophed drip. Sedation off. Open her eyes. Currently on CRRT. tolerating well, no issues with CRRT as per nurse.. UOP remains poor. Health Status Allergies: Allergic Reactions (Selected) No [...] Phoxillum BK 4K/2.5 Ca bag - GREEN 5000 mL: 1,500 mL/Hr, Miscellaneous Phoxillum BK 4K/2.5 Ca bag - PURPLE 5000 mL: 800 mL/Hr, Miscellaneous Phoxillum BK 4K/2.5 Ca bag - WHITE 5,000 mL: 1,000 mL/Hr, Miscellaneous Zyvox: 600 mg, 300 mL, 300 mL/Hr, IV Piggyback, [id number] calcium gluconate: 1 Gram, 100 mL, 100 [...] Q8H hydrocortisone: 50 mg, IV Push, Q6H lactulose: 20 Gram, Oral, Q8H magnesium sulfate: 2 Gram, 50 mL, 25 mL/Hr, IV Piggyback, Q1H, PRN: Other (See Comment) meropenem + Sodium Chloride 0.9% intravenous solution 50 mL: 500 mg, 16.67 mL/Hr, IV Piggyback, [id number] micafungin: 100 mg, 100 mL/Hr, IV Piggyback, [id number] phenylephrine injection 80 mg + NaCl 0.9% for drip 250 mL: TITRATE, IntraVENous potassium chloride: 10 mEq, 50 mL, 50 mL/Hr, IV Piggyback, Q30Min, PRN: Other (See Comment) propofol injection 1,000 mg + Premix Diluent for Drip 100 mL: TITRATE, IntraVENous sodium phosphate + Sodium Chloride 0.9% [...] 1 Tab, Oral, At Bedtime , Medications (34) Active Scheduled: (10) #NaCl 0.9% *FLUSH* inj 10 mL 10 mL, IV Push, Q12H famotidine 20 mg/2 mL inj 20 mg 2 mL, IV Push, Daily fludrocortisone 0.1 mg tab 0.05 mg 0.5 Tab, Nasogastric Tube, Daily heparin 5,000 units/1 mL inj 5,000 Units 1 mL, SubCutaneous, Q8H hydrocortisone 100 mg/2 mL inj 50 mg 1 mL, IV Push, Q6H lactulose 20 g/30 mL oral liq 20 Gram 30 mL, Oral, Q8H linezolid *PREMIX* 600 mg 300 mL, IV Piggyback, [id number] meropenem + NaCl 0.9% 50 mL 500 mg, IV Piggyback, [id number] micafungin sodium 100 mg, IV Piggyback, [id number] miconazole nitrate 2% pwd 85 g 1 Application, Topical, BID Continuous: (9) fentaNYL/NaCl 0.9% 2,000 mcg + Premix Diluent [...] mL, Miscellaneous, 1,000 mL/Hr Phoxillum BK 4/2.5 5000 mL 5,000 mL, Miscellaneous, 1,500 mL/Hr Phoxillum BK 4/2.5 5000 mL 5,000 mL, Miscellaneous, 800 mL/Hr propofol 1,000 mg + Premix Diluent Titrate 100 mL 100 mL, IntraVENous vasopressin 40 Units [0.03 Units/min] [...] History of obstructive sleep apnea / IMO [id number] / Confirmed Diabetes / SNOMED CT [id number] / Confirmed, Active Problems (6) Chronic kidney disease (CKD), stage III (moderate) Diabetes History of obstructive sleep apnea Hyperlipidemia Hypertension Paraplegia Objective VS/Measurements Vital Signs/Vital Measures 04/10/2022 9:00 EDT Systolic Blood Pressure 133 mmHg Diastolic Blood Pressure 63 mmHg Mean Arterial Pressure (MAP)-BMDI 91 Systolic BP, Arterial Line 1 127 mmHg Diastolic BP, Arterial Line 1 72 mmHg Mean Arterial Pressure, Line 1 88 mmHg Temperature, Celsius 35.8 Deg C Clinical Temperature, F 96.4 Deg F Heart Rate Monitored 44 bpm LOW Respiratory Rate 15 Breaths/Min Oxygen Saturation 100 % 04/10/2022 8:32 EDT Systolic Blood Pressure 128 mmHg Diastolic Blood Pressure 51 mmHg LOW 04/10/2022 8:00 EDT Mean Arterial Pressure (MAP)-BMDI 110 Systolic BP, Arterial Line 1 148 mmHg HI Diastolic BP, Arterial Line 1 83 mmHg Mean Arterial Pressure, Line 1 104 mmHg Temperature, Celsius 35.9 Deg C Clinical Temperature, F 96.6 Deg F Heart Rate Monitored 49 bpm LOW Respiratory Rate 25 Breaths/Min HI Oxygen Saturation 100 % 04/10/2022 7:55 EDT Systolic Blood Pressure 170 mmHg HI Diastolic Blood Pressure 77 mmHg Heart Rate Monitored 42 bpm LOW Respiratory Rate 20 Breaths/Min Oxygen Saturation 100 % Oxygen Therapy Mode Mechanical ventilation FiO2 40 % 04/10/2022 7:00 EDT Mean Arterial Pressure (MAP)-BMDI 96 Systolic BP, Arterial Line 1 130 mmHg Diastolic BP, Arterial Line 1 79 mmHg Mean Arterial Pressure, Line 1 95 mmHg Temperature, Celsius 35.8 Deg C Clinical Temperature, F 96.4 Deg F 04/10/2022 6:00 EDT Systolic Blood Pressure 145 mmHg HI Diastolic Blood Pressure 65 mmHg Mean Arterial Pressure (MAP)-BMDI 94 Systolic BP, Arterial Line 1 92 mmHg Diastolic BP, Arterial Line 1 64 mmHg Mean Arterial Pressure, Line 1 78 mmHg Temperature, Celsius 35.8 Deg C Clinical Temperature, F 96.4 Deg F Heart Rate Monitored 42 bpm LOW Respiratory Rate 32 Breaths/Min HI Oxygen Saturation 100 % 04/10/2022 5:30 EDT Systolic Blood Pressure 150 mmHg HI Diastolic Blood Pressure 65 mmHg Mean Arterial Pressure (MAP)-BMDI 94 Temperature, Celsius 35.8 Deg C Clinical Temperature, F 96.4 Deg F Heart Rate Monitored 43 bpm LOW Respiratory Rate 17 Breaths/Min Oxygen Saturation 100 % 04/10/2022 5:18 EDT Heart Rate Monitored 38 bpm LOW Respiratory Rate 14 Breaths/Min Oxygen Saturation 100 % 04/10/2022 5:15 EDT Systolic Blood Pressure 140 mmHg Diastolic Blood Pressure 65 mmHg Mean Arterial Pressure (MAP)-BMDI 94 Temperature, Celsius 35.8 Deg C Clinical Temperature, F 96.4 Deg F 04/10/2022 5:00 EDT Systolic Blood Pressure 153 mmHg HI Diastolic Blood Pressure 70 mmHg Mean Arterial Pressure (MAP)-BMDI 100 Temperature, Celsius 35.8 Deg C Clinical Temperature, F 96.4 Deg F Heart Rate Monitored 43 bpm LOW Respiratory Rate 24 Breaths/Min HI Oxygen Saturation 100 % 04/10/2022 4:45 EDT Systolic Blood Pressure 165 mmHg HI Diastolic Blood Pressure 73 mmHg Mean Arterial Pressure (MAP)-BMDI 105 Temperature, Celsius 35.8 Deg C Clinical Temperature, F 96.4 Deg F Heart Rate Monitored 44 bpm LOW Respiratory Rate 31 Breaths/Min HI Oxygen Saturation 100 % 04/10/2022 4:30 EDT Systolic Blood Pressure 160 mmHg HI Diastolic Blood Pressure 72 mmHg Mean Arterial Pressure (MAP)-BMDI 104 Temperature, Celsius 35.8 Deg C Clinical Temperature, F 96.4 Deg F Heart Rate Monitored 38 bpm LOW Respiratory Rate 15 Breaths/Min Oxygen Saturation 100 % 04/10/2022 4:15 EDT Systolic Blood Pressure 160 mmHg HI Diastolic Blood Pressure 71 mmHg Mean Arterial Pressure (MAP)-BMDI 102 Temperature, Celsius 35.8 Deg C Clinical Temperature, F 96.4 Deg F Heart Rate Monitored 42 bpm LOW Respiratory Rate 17 Breaths/Min Oxygen Saturation 100 % 04/10/2022 4:00 EDT Systolic Blood Pressure 170 mmHg HI Diastolic Blood Pressure 76 mmHg Mean Arterial Pressure (MAP)-BMDI 109 Temperature, Celsius 35.9 Deg C Clinical Temperature, F 96.6 Deg F Heart Rate Monitored 43 bpm LOW Respiratory Rate 17 Breaths/Min Oxygen Saturation 100 % 04/10/2022 3:45 EDT Systolic Blood Pressure 182 mmHg HI Diastolic Blood Pressure 84 mmHg Mean Arterial Pressure (MAP)-BMDI 120 Temperature, Celsius 36 Deg C Clinical Temperature, F 96.8 Deg F Heart Rate Monitored 50 bpm LOW Respiratory Rate 35 Breaths/Min HI Oxygen Saturation 100 % 04/10/2022 3:30 EDT Systolic Blood Pressure 169 mmHg HI Diastolic Blood Pressure 73 mmHg Mean Arterial Pressure (MAP)-BMDI 105 Temperature, Celsius 36.1 Deg C Clinical Temperature, F 97 Deg F Heart Rate Monitored 41 bpm LOW Respiratory Rate 29 Breaths/Min HI Oxygen Saturation 100 % 04/10/2022 3:15 EDT Systolic Blood Pressure 189 mmHg HI Diastolic Blood Pressure 87 mmHg Mean Arterial Pressure (MAP)-BMDI 125 Temperature, Celsius 36.2 Deg C Clinical Temperature, F 97.2 Deg F Heart Rate Monitored 47 bpm LOW Respiratory Rate 18 Breaths/Min Oxygen Saturation 100 % 04/10/2022 3:00 EDT Systolic Blood Pressure 142 mmHg HI Diastolic Blood Pressure 90 mmHg Mean Arterial Pressure (MAP)-BMDI 110 Systolic BP, Arterial Line 1 140 mmHg Diastolic BP, Arterial Line 1 91 mmHg HI Mean Arterial Pressure, Line 1 112 mmHg Temperature, Celsius 36.1 Deg C Clinical Temperature, F 97 Deg F Heart Rate Monitored 49 bpm LOW Respiratory Rate 36 Breaths/Min HI Oxygen Saturation 100 % 04/10/2022 2:45 EDT Systolic Blood Pressure 142 mmHg HI Diastolic Blood Pressure 90 mmHg Mean Arterial Pressure (MAP)-BMDI 110 Systolic BP, Arterial Line 1 172 mmHg HI Diastolic BP, Arterial Line 1 63 mmHg Mean Arterial Pressure, Line 1 98 mmHg Temperature, Celsius 36.1 Deg C Clinical Temperature, F 97 Deg F Heart Rate Monitored 45 bpm LOW Respiratory Rate 17 Breaths/Min Oxygen Saturation 100 % 04/10/2022 2:30 EDT Systolic Blood Pressure 142 mmHg HI Diastolic Blood Pressure 90 mmHg Mean Arterial Pressure (MAP)-BMDI 110 Systolic BP, Arterial Line 1 157 mmHg HI Diastolic BP, Arterial Line 1 61 mmHg Mean Arterial Pressure, Line 1 95 mmHg Temperature, Celsius 36 Deg C Clinical Temperature, F 96.8 Deg F Heart Rate Monitored 48 bpm LOW Respiratory Rate 18 Breaths/Min Oxygen Saturation 100 % 04/10/2022 2:15 EDT Systolic Blood Pressure 101 mmHg Diastolic Blood Pressure 60 mmHg Mean Arterial Pressure (MAP)-BMDI 76 Systolic BP, Arterial Line 1 161 mmHg HI Diastolic BP, Arterial Line 1 61 mmHg Mean Arterial Pressure, Line 1 93 mmHg Temperature, Celsius 36 Deg C Clinical Temperature, F 96.8 Deg F Heart Rate Monitored 44 bpm LOW Respiratory Rate 15 Breaths/Min Oxygen Saturation 100 % 04/10/2022 2:00 EDT Systolic Blood Pressure 135 mmHg Diastolic Blood Pressure 84 mmHg Mean Arterial Pressure (MAP)-BMDI 103 Systolic BP, Arterial Line 1 133 mmHg Diastolic BP, Arterial Line 1 63 mmHg Mean Arterial Pressure, Line 1 90 mmHg Temperature, Celsius 36 Deg C Clinical Temperature, F 96.8 Deg F Heart Rate Monitored 46 bpm LOW Respiratory Rate 19 Breaths/Min Oxygen Saturation 99 % 04/10/2022 1:45 EDT Systolic Blood Pressure 153 mmHg HI Diastolic Blood Pressure 88 mmHg Mean Arterial Pressure (MAP)-BMDI 115 Systolic BP, Arterial Line 1 151 mmHg HI Diastolic BP, Arterial Line 1 63 mmHg Mean Arterial Pressure, Line 1 93 mmHg Temperature, Celsius 36.1 Deg C Clinical Temperature, F 97 Deg F Heart Rate Monitored 47 bpm LOW Respiratory Rate 20 Breaths/Min Oxygen Saturation 100 % 04/10/2022 1:30 EDT Systolic Blood Pressure 153 mmHg HI Diastolic Blood Pressure 88 mmHg Mean Arterial Pressure (MAP)-BMDI 115 Systolic BP, Arterial Line 1 148 mmHg HI Diastolic BP, Arterial Line 1 62 mmHg Mean Arterial Pressure, Line 1 92 mmHg Temperature, Celsius 36.1 Deg C Clinical Temperature, F 97 Deg F Heart Rate Monitored 46 bpm LOW Respiratory Rate 23 Breaths/Min HI Oxygen Saturation 100 % 04/10/2022 1:15 EDT Systolic Blood Pressure 138 mmHg Diastolic Blood Pressure 60 mmHg Mean Arterial Pressure (MAP)-BMDI 86 Systolic BP, Arterial Line 1 125 mmHg Diastolic BP, Arterial Line 1 58 mmHg LOW Mean Arterial Pressure, Line 1 82 mmHg Temperature, Celsius 36.2 Deg C Clinical Temperature, F 97.2 Deg F Heart Rate Monitored 44 bpm LOW Respiratory Rate 17 Breaths/Min Oxygen Saturation 100 % 04/10/2022 1:00 EDT Systolic Blood Pressure 138 mmHg Diastolic Blood Pressure 60 mmHg Mean Arterial Pressure (MAP)-BMDI 86 Systolic BP, Arterial Line 1 143 mmHg HI Diastolic BP, Arterial Line 1 54 mmHg LOW Mean Arterial Pressure, Line 1 82 mmHg Temperature, Celsius 36.4 Deg C Clinical Temperature, F 97.5 Deg F Heart Rate Monitored 44 bpm LOW Respiratory Rate 15 Breaths/Min Oxygen Saturation 100 % 04/10/2022 0:45 EDT Systolic Blood Pressure 92 mmHg Diastolic Blood Pressure 52 mmHg LOW Mean Arterial Pressure (MAP)-BMDI 70 Systolic BP, Arterial Line 1 128 mmHg Diastolic BP, Arterial Line 1 54 mmHg LOW Mean Arterial Pressure, Line 1 78 mmHg Temperature, Celsius 36.5 Deg C Clinical Temperature, F 97.7 Deg F Heart Rate Monitored 47 bpm LOW Respiratory Rate 20 Breaths/Min Oxygen Saturation 100 % 04/10/2022 0:30 EDT Systolic BP, Arterial Line 1 162 mmHg HI Diastolic BP, Arterial Line 1 62 mmHg Mean Arterial Pressure, Line 1 94 mmHg Temperature, Celsius 36.6 Deg C Clinical Temperature, F 97.9 Deg F Heart Rate Monitored 55 bpm LOW Respiratory Rate 30 Breaths/Min HI Oxygen Saturation 100 % 04/10/2022 0:29 EDT Heart Rate Monitored 62 bpm Respiratory Rate 48 Breaths/Min HI Oxygen Saturation 100 % 04/10/2022 0:15 EDT Systolic BP, Arterial Line 1 158 mmHg HI Diastolic BP, Arterial Line 1 57 mmHg LOW Mean Arterial Pressure, Line 1 86 mmHg Temperature, Celsius 36.7 Deg C Clinical Temperature, F 98.1 Deg F 04/10/2022 0:00 EDT Systolic BP, Arterial Line 1 144 mmHg HI Diastolic BP, Arterial Line 1 52 mmHg LOW Mean Arterial Pressure, Line 1 79 mmHg Temperature, Celsius 36.7 Deg C Clinical Temperature, F 98.1 Deg F Heart Rate Monitored 48 bpm LOW Respiratory Rate 15 Breaths/Min Oxygen Saturation 100 % 04/09/2022 23:45 EDT Systolic BP, Arterial Line 1 133 mmHg Diastolic BP, Arterial Line 1 48 mmHg LOW Mean Arterial Pressure, Line 1 71 mmHg Temperature, Celsius 36.7 Deg C Clinical Temperature, F 98.1 Deg F Heart Rate Monitored 45 bpm LOW Respiratory Rate 10 Breaths/Min LOW Oxygen Saturation 100 % 04/09/2022 23:30 EDT Systolic BP, Arterial Line 1 153 mmHg HI Diastolic BP, Arterial Line 1 53 mmHg LOW Mean Arterial Pressure, Line 1 81 mmHg Temperature, Celsius 36.7 Deg C Clinical Temperature, F 98.1 Deg F Heart Rate Monitored 47 bpm LOW Respiratory Rate 9 Breaths/Min LOW Oxygen Saturation 100 % 04/09/2022 23:15 EDT Systolic BP, Arterial Line 1 154 mmHg HI Diastolic BP, Arterial Line 1 53 mmHg LOW Mean Arterial Pressure, Line 1 81 mmHg Temperature, Celsius 36.7 Deg C Clinical Temperature, F 98.1 Deg F Heart Rate Monitored 46 bpm LOW Respiratory Rate 9 Breaths/Min LOW Oxygen Saturation 100 % 04/09/2022 23:00 EDT Systolic BP, Arterial Line 1 149 mmHg HI Diastolic BP, Arterial Line 1 53 mmHg LOW Mean Arterial Pressure, Line 1 79 mmHg Temperature, Celsius 36.6 Deg C Clinical Temperature, F 97.9 Deg F Heart Rate Monitored 47 bpm LOW Respiratory Rate 15 Breaths/Min Oxygen Saturation 100 % 04/09/2022 22:45 EDT Systolic BP, Arterial Line 1 151 mmHg HI Diastolic BP, Arterial Line 1 53 mmHg LOW Mean Arterial Pressure, Line 1 81 mmHg Temperature, Celsius 36.5 Deg C Clinical Temperature, F 97.7 Deg F Heart Rate Monitored 46 bpm LOW Respiratory Rate 6 Breaths/Min LOW Oxygen Saturation 100 % 04/09/2022 22:30 EDT Systolic BP, Arterial Line 1 153 mmHg HI Diastolic BP, Arterial Line 1 54 mmHg LOW Mean Arterial Pressure, Line 1 82 mmHg Temperature, Celsius 36.5 Deg C Clinical Temperature, F 97.7 Deg F Heart Rate Monitored 45 bpm LOW Respiratory Rate 8 Breaths/Min LOW Oxygen Saturation 100 % 04/09/2022 22:15 EDT Systolic BP, Arterial Line 1 154 mmHg HI Diastolic BP, Arterial Line 1 54 mmHg LOW Mean Arterial Pressure, Line 1 82 mmHg Temperature, Celsius 36.5 Deg C Clinical Temperature, F 97.7 Deg F Heart Rate Monitored 45 bpm LOW Respiratory Rate 9 Breaths/Min LOW Oxygen Saturation 100 % 04/09/2022 22:00 EDT Systolic BP, Arterial Line 1 170 mmHg HI Diastolic BP, Arterial Line 1 61 mmHg Mean Arterial Pressure, Line 1 94 mmHg Temperature, Celsius 36.5 Deg C Clinical Temperature, F 97.7 Deg F Heart Rate Monitored 51 bpm LOW Respiratory Rate 23 Breaths/Min HI Oxygen Saturation 100 % 04/09/2022 21:45 EDT Systolic BP, Arterial Line 1 159 mmHg HI Diastolic BP, Arterial Line 1 57 mmHg LOW Mean Arterial Pressure, Line 1 87 mmHg Temperature, Celsius 36.4 Deg C Clinical Temperature, F 97.5 Deg F Heart Rate Monitored 46 bpm LOW Respiratory Rate 14 Breaths/Min Oxygen Saturation 100 % 04/09/2022 21:30 EDT Systolic BP, Arterial Line 1 146 mmHg HI Diastolic BP, Arterial Line 1 52 mmHg LOW Mean Arterial Pressure, Line 1 80 mmHg Temperature, Celsius 36.4 Deg C Clinical Temperature, F 97.5 Deg F Heart Rate Monitored 46 bpm LOW Respiratory Rate 14 Breaths/Min Oxygen Saturation 100 % 04/09/2022 21:15 EDT Systolic BP, Arterial Line 1 150 mmHg HI Diastolic BP, Arterial Line 1 54 mmHg LOW Mean Arterial Pressure, Line 1 81 mmHg Temperature, Celsius 36.3 Deg C Clinical Temperature, F 97.3 Deg F Heart Rate Monitored 43 bpm LOW Respiratory Rate 11 Breaths/Min LOW Oxygen Saturation 100 % 04/09/2022 21:00 EDT Systolic BP, Arterial Line 1 152 mmHg HI Diastolic BP, Arterial Line 1 56 mmHg LOW Mean Arterial Pressure, Line 1 85 mmHg Temperature, Celsius 36.3 Deg C Clinical Temperature, F 97.3 Deg F Heart Rate Monitored 44 bpm LOW Respiratory Rate 14 Breaths/Min Oxygen Saturation 100 % 04/09/2022 20:45 EDT Systolic BP, Arterial Line 1 148 mmHg HI Diastolic BP, Arterial Line 1 55 mmHg LOW Mean Arterial Pressure, Line 1 82 mmHg Temperature, Celsius 36.3 Deg C Clinical Temperature, F 97.3 Deg F Heart Rate Monitored 45 bpm LOW Respiratory Rate 14 Breaths/Min Oxygen Saturation 100 % 04/09/2022 20:30 EDT Systolic BP, Arterial Line 1 151 mmHg HI Diastolic BP, Arterial Line 1 56 mmHg LOW Mean Arterial Pressure, Line 1 84 mmHg Temperature, Celsius 36.2 Deg C Clinical Temperature, F 97.2 Deg F Heart Rate Monitored 45 bpm LOW Respiratory Rate 14 Breaths/Min Oxygen Saturation 100 % 04/09/2022 20:17 EDT Heart Rate Monitored 45 bpm LOW Respiratory Rate 26 Breaths/Min HI Oxygen Saturation 100 % 04/09/2022 20:15 EDT Systolic BP, Arterial Line 1 143 mmHg HI Diastolic BP, Arterial Line 1 54 mmHg LOW Mean Arterial Pressure, Line 1 81 mmHg Temperature, Celsius 36.2 Deg C Clinical Temperature, F 97.2 Deg F 04/09/2022 20:00 EDT Systolic BP, Arterial Line 1 144 mmHg HI Diastolic BP, Arterial Line 1 56 mmHg LOW Mean Arterial Pressure, Line 1 83 mmHg Temperature, Celsius 36.1 Deg C Clinical Temperature, F 97 Deg F Clinical Temperature, F 97 Deg F Heart Rate Monitored 46 bpm LOW Respiratory Rate 27 Breaths/Min HI Oxygen Saturation 100 % 04/09/2022 19:45 EDT Systolic BP, Arterial Line 1 140 mmHg Diastolic BP, Arterial Line 1 55 mmHg LOW Mean Arterial Pressure, Line 1 81 mmHg Temperature, Celsius 36.1 Deg C Clinical Temperature, F 97 Deg F Heart Rate Monitored 45 bpm LOW Respiratory Rate 16 Breaths/Min Oxygen Saturation 100 % 04/09/2022 19:30 EDT Systolic BP, Arterial Line 1 152 mmHg HI Diastolic BP, Arterial Line 1 59 mmHg LOW Mean Arterial Pressure, Line 1 88 mmHg Temperature, Celsius 36 Deg C Clinical Temperature, F 96.8 Deg F Heart Rate Monitored 46 bpm LOW Respiratory Rate 15 Breaths/Min Oxygen Saturation 100 % 04/09/2022 19:15 EDT Systolic BP, Arterial Line 1 137 mmHg Diastolic BP, Arterial Line 1 54 mmHg LOW Mean Arterial Pressure, Line 1 79 mmHg Temperature, Celsius 36 Deg C Clinical Temperature, F 96.8 Deg F Heart Rate Monitored 46 bpm LOW Respiratory Rate 15 Breaths/Min Oxygen Saturation 100 % 04/09/2022 19:00 EDT Systolic BP, Arterial Line 1 135 mmHg Diastolic BP, Arterial Line 1 55 mmHg LOW Mean Arterial Pressure, Line 1 81 mmHg Temperature, Celsius 35.9 Deg C Clinical Temperature, F 96.6 Deg F Heart Rate Monitored 47 bpm LOW Respiratory Rate 27 Breaths/Min HI Oxygen Saturation 100 % 04/09/2022 18:45 EDT Systolic BP, Arterial Line 1 146 mmHg HI Diastolic BP, Arterial Line 1 59 mmHg LOW Mean Arterial Pressure, Line 1 86 mmHg Temperature, Celsius 35.8 Deg C Clinical Temperature, F 96.4 Deg F Heart Rate Monitored 49 bpm LOW Respiratory Rate 15 Breaths/Min Oxygen Saturation 100 % 04/09/2022 18:30 EDT Systolic BP, Arterial Line 1 141 mmHg HI Diastolic BP, Arterial Line 1 58 mmHg LOW Mean Arterial Pressure, Line 1 84 mmHg Temperature, Celsius 35.8 Deg C Clinical Temperature, F 96.4 Deg F Heart Rate Monitored 50 bpm LOW Respiratory Rate 22 Breaths/Min HI Oxygen Saturation 100 % 04/09/2022 18:15 EDT Systolic BP, Arterial Line 1 157 mmHg HI Diastolic BP, Arterial Line 1 62 mmHg Mean Arterial Pressure, Line 1 91 mmHg Temperature, Celsius 35.7 Deg C Clinical Temperature, F 96.3 Deg F Heart Rate Monitored 48 bpm LOW Respiratory Rate 16 Breaths/Min Oxygen Saturation 100 % 04/09/2022 18:00 EDT Systolic BP, Arterial Line 1 141 mmHg HI Diastolic BP, Arterial Line 1 57 mmHg LOW Mean Arterial Pressure, Line 1 83 mmHg Temperature, Celsius 35.6 Deg C Clinical Temperature, F 96.1 Deg F Heart Rate Monitored 48 bpm LOW Respiratory Rate 21 Breaths/Min HI Oxygen Saturation 100 % 04/09/2022 17:45 EDT Systolic BP, Arterial Line 1 153 mmHg HI Diastolic BP, Arterial Line 1 60 mmHg Mean Arterial Pressure, Line 1 88 mmHg Temperature, Celsius 35.5 Deg C Clinical Temperature, F 95.9 Deg F Heart Rate Monitored 47 bpm LOW Respiratory Rate 16 Breaths/Min Oxygen Saturation 100 % 04/09/2022 17:30 EDT Systolic BP, Arterial Line 1 143 mmHg HI Diastolic BP, Arterial Line 1 57 mmHg LOW Mean Arterial Pressure, Line 1 84 mmHg Temperature, Celsius 35.5 Deg C Clinical Temperature, F 95.9 Deg F Heart Rate Monitored 46 bpm LOW Respiratory Rate 16 Breaths/Min Oxygen Saturation 100 % 04/09/2022 17:15 EDT Systolic BP, Arterial Line 1 141 mmHg HI Diastolic BP, Arterial Line 1 54 mmHg LOW Mean Arterial Pressure, Line 1 81 mmHg Temperature, Celsius 35.4 Deg C Clinical Temperature, F 95.7 Deg F Heart Rate Monitored 45 bpm LOW Respiratory Rate 17 Breaths/Min Oxygen Saturation 100 % 04/09/2022 17:00 EDT Systolic BP, Arterial Line 1 134 mmHg Diastolic BP, Arterial Line 1 53 mmHg LOW Mean Arterial Pressure, Line 1 77 mmHg Temperature, Celsius 35.4 Deg C Clinical Temperature, F 95.7 Deg F Heart Rate Monitored 40 bpm LOW Respiratory Rate 15 Breaths/Min Oxygen Saturation 100 % 04/09/2022 16:45 EDT Systolic BP, Arterial Line 1 110 mmHg Diastolic BP, Arterial Line 1 45 mmHg LOW Mean Arterial Pressure, Line 1 65 mmHg Temperature, Celsius 35.5 Deg C Clinical Temperature, F 95.9 Deg F Heart Rate Monitored 42 bpm LOW Respiratory Rate 15 Breaths/Min Oxygen Saturation 100 % 04/09/2022 16:30 EDT Systolic BP, Arterial Line 1 136 mmHg Diastolic BP, Arterial Line 1 52 mmHg LOW Mean Arterial Pressure, Line 1 79 mmHg Temperature, Celsius 35.5 Deg C Clinical Temperature, F 95.9 Deg F Heart Rate Monitored 46 bpm LOW Respiratory Rate 26 Breaths/Min HI Oxygen Saturation 100 % 04/09/2022 16:15 EDT Systolic BP, Arterial Line 1 131 mmHg Diastolic BP, Arterial Line 1 49 mmHg LOW Mean Arterial Pressure, Line 1 74 mmHg Temperature, Celsius 35.5 Deg C Clinical Temperature, F 95.9 Deg F Heart Rate Monitored 40 bpm LOW Respiratory Rate 16 Breaths/Min Oxygen Saturation 100 % 04/09/2022 16:00 EDT Systolic BP, Arterial Line 1 147 mmHg HI Diastolic BP, Arterial Line 1 54 mmHg LOW Mean Arterial Pressure, Line 1 83 mmHg Temperature, Celsius 35.4 Deg C Clinical Temperature, F 95.7 Deg F Heart Rate Monitored 39 bpm LOW Respiratory Rate 29 Breaths/Min HI Oxygen Saturation 100 % 04/09/2022 15:45 EDT Systolic BP, Arterial Line 1 144 mmHg HI Diastolic BP, Arterial Line 1 54 mmHg LOW Mean Arterial Pressure, Line 1 82 mmHg Temperature, Celsius 35.5 Deg C Clinical Temperature, F 95.9 Deg F Heart Rate Monitored 41 bpm LOW Respiratory Rate 5 Breaths/Min LOW Oxygen Saturation 100 % 04/09/2022 15:39 EDT Heart Rate Monitored 43 bpm LOW Respiratory Rate 22 Breaths/Min HI Oxygen Saturation 100 % Oxygen Therapy Mode Mechanical ventilation FiO2 40 % 04/09/2022 15:30 EDT Systolic BP, Arterial Line 1 156 mmHg HI Diastolic BP, Arterial Line 1 56 mmHg LOW Mean Arterial Pressure, Line 1 87 mmHg Temperature, Celsius 35.5 Deg C Clinical Temperature, F 95.9 Deg F 04/09/2022 15:15 EDT Systolic BP, Arterial Line 1 181 mmHg HI Diastolic BP, Arterial Line 1 71 mmHg Mean Arterial Pressure, Line 1 114 mmHg Temperature, Celsius 35.5 Deg C Clinical Temperature, F 95.9 Deg F Heart Rate Monitored 72 bpm Respiratory Rate 46 Breaths/Min HI Oxygen Saturation 100 % 04/09/2022 15:00 EDT Systolic BP, Arterial Line 1 143 mmHg HI Diastolic BP, Arterial Line 1 53 mmHg LOW Mean Arterial Pressure, Line 1 80 mmHg Temperature, Celsius 35.5 Deg C Clinical Temperature, F 95.9 Deg F Heart Rate Monitored 40 bpm LOW Respiratory Rate 18 Breaths/Min Oxygen Saturation 100 % 04/09/2022 14:45 EDT Systolic BP, Arterial Line 1 157 mmHg HI Diastolic BP, Arterial Line 1 56 mmHg LOW Mean Arterial Pressure, Line 1 87 mmHg Temperature, Celsius 35.5 Deg C Clinical Temperature, F 95.9 Deg F Heart Rate Monitored 40 bpm LOW Respiratory Rate 18 Breaths/Min Oxygen Saturation 100 % 04/09/2022 14:30 EDT Systolic BP, Arterial Line 1 154 mmHg HI Diastolic BP, Arterial Line 1 55 mmHg LOW Mean Arterial Pressure, Line 1 85 mmHg Temperature, Celsius 35.5 Deg C Clinical Temperature, F 95.9 Deg F Heart Rate Monitored 41 bpm LOW Respiratory Rate 14 Breaths/Min Oxygen Saturation 100 % 04/09/2022 14:15 EDT Systolic BP, Arterial Line 1 167 mmHg HI Diastolic BP, Arterial Line 1 59 mmHg LOW Mean Arterial Pressure, Line 1 94 mmHg Temperature, Celsius 35.5 Deg C Clinical Temperature, F 95.9 Deg F Heart Rate Monitored 54 bpm LOW Respiratory Rate 18 Breaths/Min Oxygen Saturation 100 % 04/09/2022 14:00 EDT Systolic BP, Arterial Line 1 166 mmHg HI Diastolic BP, Arterial Line 1 60 mmHg Mean Arterial Pressure, Line 1 95 mmHg Temperature, Celsius 35.5 Deg C Clinical Temperature, F 95.9 Deg F Heart Rate Monitored 51 bpm LOW Respiratory Rate 16 Breaths/Min Oxygen Saturation 100 % 04/09/2022 13:45 EDT Systolic BP, Arterial Line 1 159 mmHg HI Diastolic BP, Arterial Line 1 58 mmHg LOW Mean Arterial Pressure, Line 1 90 mmHg Temperature, Celsius 35.6 Deg C Clinical Temperature, F 96.1 Deg F Heart Rate Monitored 49 bpm LOW Respiratory Rate 19 Breaths/Min Oxygen Saturation 100 % 04/09/2022 13:30 EDT Systolic BP, Arterial Line 1 171 mmHg HI Diastolic BP, Arterial Line 1 61 mmHg Mean Arterial Pressure, Line 1 96 mmHg Temperature, Celsius 35.6 Deg C Clinical Temperature, F 96.1 Deg F Heart Rate Monitored 43 bpm LOW Respiratory Rate 19 Breaths/Min Oxygen Saturation 100 % 04/09/2022 13:15 EDT Systolic BP, Arterial Line 1 164 mmHg HI Diastolic BP, Arterial Line 1 60 mmHg Mean Arterial Pressure, Line 1 93 mmHg Temperature, Celsius 35.6 Deg C Clinical Temperature, F 96.1 Deg F Heart Rate Monitored 43 bpm LOW Respiratory Rate 33 Breaths/Min HI Oxygen Saturation 100 % 04/09/2022 13:00 EDT Systolic BP, Arterial Line 1 174 mmHg HI Diastolic BP, Arterial Line 1 61 mmHg Mean Arterial Pressure, Line 1 96 mmHg Temperature, Celsius 35.6 Deg C Clinical Temperature, F 96.1 Deg F Heart Rate Monitored 39 bpm LOW Respiratory Rate 20 Breaths/Min Oxygen Saturation 100 % 04/09/2022 12:45 EDT Systolic BP, Arterial Line 1 144 mmHg HI Diastolic BP, Arterial Line 1 56 mmHg LOW Mean Arterial Pressure, Line 1 84 mmHg Temperature, Celsius 35.6 Deg C Clinical Temperature, F 96.1 Deg F Heart Rate Monitored 44 bpm LOW Respiratory Rate 24 Breaths/Min HI Oxygen Saturation 100 % 04/09/2022 12:30 EDT Systolic BP, Arterial Line 1 153 mmHg HI Diastolic BP, Arterial Line 1 57 mmHg LOW Mean Arterial Pressure, Line 1 87 mmHg Temperature, Celsius 35.6 Deg C Clinical Temperature, F 96.1 Deg F Heart Rate Monitored 41 bpm LOW Respiratory Rate 20 Breaths/Min Oxygen Saturation 100 % 04/09/2022 12:15 EDT Systolic BP, Arterial Line 1 152 mmHg HI Diastolic BP, Arterial Line 1 58 mmHg LOW Mean Arterial Pressure, Line 1 88 mmHg Temperature, Celsius 35.6 Deg C Clinical Temperature, F 96.1 Deg F Heart Rate Monitored 42 bpm LOW Respiratory Rate 21 Breaths/Min HI Oxygen Saturation 100 % 04/09/2022 12:00 EDT Systolic BP, Arterial Line 1 149 mmHg HI Diastolic BP, Arterial Line 1 55 mmHg LOW Mean Arterial Pressure, Line 1 83 mmHg Temperature, Celsius 35.6 Deg C Clinical Temperature, F 96.1 Deg F Heart Rate Monitored 45 bpm LOW Respiratory Rate 20 Breaths/Min Oxygen Saturation 100 % 04/09/2022 11:45 EDT Systolic BP, Arterial Line 1 110 mmHg Diastolic BP, Arterial Line 1 61 mmHg Mean Arterial Pressure, Line 1 82 mmHg Temperature, Celsius 35.5 Deg C Clinical Temperature, F 95.9 Deg F Heart Rate Monitored 41 bpm LOW Respiratory Rate 18 Breaths/Min Oxygen Saturation 100 % 04/09/2022 11:30 EDT Systolic BP, Arterial Line 1 139 mmHg Diastolic BP, Arterial Line 1 55 mmHg LOW Mean Arterial Pressure, Line 1 81 mmHg Temperature, Celsius 35.4 Deg C Clinical Temperature, F 95.7 Deg F Heart Rate Monitored 43 bpm LOW Respiratory Rate 13 Breaths/Min LOW Oxygen Saturation 100 % 04/09/2022 11:15 EDT Systolic BP, Arterial Line 1 131 mmHg Diastolic BP, Arterial Line 1 57 mmHg LOW Mean Arterial Pressure, Line 1 81 mmHg Temperature, Celsius 35.4 Deg C Clinical Temperature, F 95.7 Deg F Heart Rate Monitored 47 bpm LOW Respiratory Rate 13 Breaths/Min LOW Oxygen Saturation 100 % 04/09/2022 11:06 EDT Heart Rate Monitored 48 bpm LOW Respiratory Rate 10 Breaths/Min LOW Oxygen Saturation 100 % Oxygen Therapy Mode Mechanical ventilation FiO2 40 % 04/09/2022 11:00 EDT Systolic BP, Arterial Line 1 138 mmHg Diastolic BP, Arterial Line 1 58 mmHg LOW Mean Arterial Pressure, Line 1 84 mmHg Temperature, Celsius 35.3 Deg C Clinical Temperature, F 95.5 Deg F 04/09/2022 10:45 EDT Systolic BP, Arterial Line 1 149 mmHg HI Diastolic BP, Arterial Line 1 61 mmHg Mean Arterial Pressure, Line 1 89 mmHg Temperature, Celsius 35.2 Deg C Clinical Temperature, F 95.4 Deg F Heart Rate Monitored 47 bpm LOW Respiratory Rate 18 Breaths/Min Oxygen Saturation 100 % 04/09/2022 10:30 EDT Systolic BP, Arterial Line 1 134 mmHg Diastolic BP, Arterial Line 1 60 mmHg Mean Arterial Pressure, Line 1 85 mmHg Temperature, Celsius 35.1 Deg C LOW Clinical Temperature, F 95.2 Deg F Heart Rate Monitored 48 bpm LOW Respiratory Rate 17 Breaths/Min Oxygen Saturation 100 % 04/09/2022 10:15 EDT Systolic BP, Arterial Line 1 144 mmHg HI Diastolic BP, Arterial Line 1 61 mmHg Mean Arterial Pressure, Line 1 86 mmHg Temperature, Celsius 35.1 Deg C LOW Clinical Temperature, F 95.2 Deg F Heart Rate Monitored 42 bpm LOW Respiratory Rate 17 Breaths/Min Oxygen Saturation 100 % 04/09/2022 10:00 EDT Systolic Blood Pressure 117 mmHg Diastolic Blood Pressure 56 mmHg LOW Mean Arterial Pressure (MAP)-BMDI 80 Systolic BP, Arterial Line 1 137 mmHg Diastolic BP, Arterial Line 1 59 mmHg LOW Mean Arterial Pressure, Line 1 85 mmHg Temperature, Celsius 35 Deg C LOW Clinical Temperature, F 95 Deg F Heart Rate Monitored 47 bpm LOW Respiratory Rate 16 Breaths/Min Oxygen Saturation 100 % 04/09/2022 9:45 EDT Systolic Blood Pressure 117 mmHg Diastolic Blood Pressure 56 mmHg LOW Mean Arterial Pressure (MAP)-BMDI 80 Systolic BP, Arterial Line 1 120 mmHg Diastolic BP, Arterial Line 1 53 mmHg LOW Mean Arterial Pressure, Line 1 74 mmHg Temperature, Celsius 35 Deg C LOW Clinical Temperature, F 95 Deg F Heart Rate Monitored 44 bpm LOW Respiratory Rate 16 Breaths/Min Oxygen Saturation 100 % 04/09/2022 9:30 EDT Systolic Blood Pressure 117 mmHg Diastolic Blood Pressure 56 mmHg LOW Mean Arterial Pressure (MAP)-BMDI 80 Systolic BP, Arterial Line 1 155 mmHg HI Diastolic BP, Arterial Line 1 59 mmHg LOW Mean Arterial Pressure, Line 1 87 mmHg Temperature, Celsius 35.1 Deg C LOW Clinical Temperature, F 95.2 Deg F Heart Rate Monitored 48 bpm LOW Respiratory Rate 18 Breaths/Min Oxygen Saturation 100 % 04/09/2022 9:15 EDT Systolic Blood Pressure 145 mmHg HI Diastolic Blood Pressure 66 mmHg Mean Arterial Pressure (MAP)-BMDI 95 Systolic BP, Arterial Line 1 150 mmHg HI Diastolic BP, Arterial Line 1 64 mmHg Mean Arterial Pressure, Line 1 91 mmHg Temperature, Celsius 35.1 Deg C LOW Clinical Temperature, F 95.2 Deg F Heart Rate Monitored 39 bpm LOW Respiratory Rate 16 Breaths/Min Oxygen Saturation 100 % 04/09/2022 9:00 EDT Systolic Blood Pressure 132 mmHg Diastolic Blood Pressure 91 mmHg HI Mean Arterial Pressure (MAP)-BMDI 107 Systolic BP, Arterial Line 1 146 mmHg HI Diastolic BP, Arterial Line 1 59 mmHg LOW Mean Arterial Pressure, Line 1 86 mmHg Temperature, Celsius 35.2 Deg C Clinical Temperature, F 95.4 Deg F Heart Rate Monitored 53 bpm LOW Respiratory Rate 13 Breaths/Min LOW Oxygen Saturation 100 % 04/09/2022 8:45 EDT Systolic Blood Pressure 150 mmHg HI Diastolic Blood Pressure 68 mmHg Mean Arterial Pressure (MAP)-BMDI 98 Systolic BP, Arterial Line 1 173 mmHg HI Diastolic BP, Arterial Line 1 62 mmHg Mean Arterial Pressure, Line 1 94 mmHg Temperature, Celsius 35.3 Deg C Clinical Temperature, F 95.5 Deg F Heart Rate Monitored 47 bpm LOW Respiratory Rate 20 Breaths/Min Oxygen Saturation 100 % 04/09/2022 8:30 EDT Systolic Blood Pressure 133 mmHg Diastolic Blood Pressure 62 mmHg Mean Arterial Pressure (MAP)-BMDI 89 Systolic BP, Arterial Line 1 192 mmHg HI Diastolic BP, Arterial Line 1 68 mmHg Mean Arterial Pressure, Line 1 102 mmHg Temperature, Celsius 35.4 Deg C Clinical Temperature, F 95.7 Deg F Heart Rate Monitored 39 bpm LOW Respiratory Rate 22 Breaths/Min HI Oxygen Saturation 100 % 04/09/2022 8:15 EDT Systolic Blood Pressure 146 mmHg HI documented in this encounter Plan of Treatment Not on file documented as of this encounter Visit Diagnoses Not on filedocumented in this encounter
--- OUTSIDE RECORDS SUMMARY | 2025-02-21 13:37 | XMS_ITS | Encounter Summary ---
Author Organization [employer] Address [address] [place] [address] Care Team Providers Care Chlorine Cell Tender Name Role Phone Unavailable Primary Care Provider Unavailabl e Encounter Details Date Type Department Care Team (Late st Contact Info) Description 03/04/2022 Transcribed Document [facility] [place] [facility] [place] [address] ProviderFlorentino MD [address] [place] [address] Social History Tobacco Use Types Packs/Day Years Used Date Smoking Tobacco: Never Assessed Comments Unknown Sex and Gender Information Value Date Recorded Sex Assigned at Not on file Legal Sex Female 1:44 PM CDT Gender Identity Not on file Sexual Orientation Not on file documented as of this encounter Miscellaneous Notes * Cerner Conversion Note - Florentino Lynne MD - 03/04/2022 11:54 AM CDT Patient: ALYSSA AZUL Age: 61 years Sex: Female : 1960 Associated Diagnoses: None Author: PEÑA VAZQUEZ MD-INF Antibiotics: Zosyn CC: Sacral wound HPI: 02/22/22: Consultation at [facility]: 61 yo female with hx of paraplegia, diabetes, HTN and obesity. Presented to [facility] with complaints of fevers and chills for 1 week prior to admission. Diagnosed with pneumonia and left gluteal wound. Underwent superficial I&D x2 and then suffered a cardiac arrest on 02/20. She was intubated and started on vasopressors. Per family at bedside she had additional operative I&D at local hospital after cardiac arrest. Treated with vancomycin and zosyn. Transferred to [facility] on 02/22 for higher level of care. She arrived intubated, sedated and on vasopressors. Since arrival she has been extubated to BiPAP, 35%. Weaned off vasopressors. T max 99.6. Family member at bedside. Follow by Dr. Pedro Mitchell at [facility] from 02/22-02/23. Dr. Gama Encinas resumed care at [facility] from 02/24 to 03/01 when she was transferred to [facility]. 03/02/22: Transfer to [facility] with initial hospital visit by Dr. Peña Vazquez: In summary, Patient was admitted to [facility] on 02/17 for suspected pneumonia and debridement of left buttock DTI. On 02/21 she had cardiac arrest and was emergently intubated. She was transferred to [facility] on 02/22 for higher level of care. She was extubated on 02/22 and re-intubated later that day. She was extubated again on 02/25, but failed BiPAP on 03/01 and was re-intubated. She was being treated by Dr. Gama Encinas for suspected aspiration pneumonia and left gluteal wound infection with Zosyn. She was transferred to [facility] on 03/01 for pulmonology coverage. The [...] PICC line (was present on admission to [facility] on 02/22 and likely placed at OSH) [...] with family and staff - events noted 03/04 - no Hx available Hx discussed with staff ROS: unable to obtain secondary to critical condition - discussed with staff - on vent sedated no rash to have bronch no new GI CR issues weaning a bit form vent Past Medical History: paraplegia, diabetes, HTN and obesity Past Surgical History: I&D of left gluteal wound at OSH x2 Family History: Unable to confirm Social History: lives in [place] Objective: Vitals Signs (last 24 hrs) Last Charted Minimum Maximum Temp 98.5 (MAR 04 04:) 98.0 (MAR 03 16:00) 98.2 (MAR 03 12:00) Mon HR 66 (MAR 04 08:59) 60 (MAR 03 23:15) 79 (MAR 04 04:00) Resp Rate 16 (MAR 04 08:59) L 9 (MAR 04 01:00) H 22 (MAR 03 15:00) SBP 93 (MAR 04 05:30) 93 (MAR 04 05:00) H 155 (MAR 04 04:00) DBP L 53 (MAR 04 05:30) L 53 (MAR 04 05:00) 76 (MAR 04 04:00) MAP 67 (MAR 04 05:30) 67 (MAR 04 05:00) 108 (MAR 04 04:00) SpO2 98 (MAR 04 08:59) L 92 (MAR 04 05:45) 100 (MAR 03 12:35) PE: General: Patient sedated on mechanical ventilation appears ill, some distress HEENT: sclera white without conjunctival injection. No erythema, exudate or ulceration. Neck: Supple without nuchal rigidity Lungs: Bilateral rhonchi on vent Cardiovascular: normal S1/S2; tachycardia, no m/r/g. Abdomen: soft, non-tender, non-distended, positive bowel sounds throughout. Lower extremity: No cyanosis, clubbing or edema Neuro: Sedated on vent with paraplegia : Left hip and sacral wound with wound VAC in place no rash With Valenzuela LABS: Labs (Last four charted values) WBC 6.8 [...] diplococci IMAGING: Radiology Results (Last 48 hours) [id number] -- 03/01/2022 17:45 CR Chest 1 Vw [...] soft tissue: Status post I&D x3 at [facility]. - Acute hypoxic respiratory failure: Pneumonia & edema - Aspiration pneumonia: clear evidence of aspiration - Pulmonary edema - Cardiac arrest at outside hospital prior to transfer to [facility] - Metabolic acidosis: improved - Acute kidney failure on reported CKD, unknown stage (likely Stage III) - Acute encephalopathy: now sedated - Neutrophilic leukocytosis: resolved - Anemia, ongoing. ?chronic - Chronic paraplegia - Obesity - DM2 - Right lung infiltrates - new RECOMMENDATIONS/PLANS: -Continue supportive care now on vent and wound VAC in place - Follow CBC, CMP, CRP, - Continue Zosyn, increased dose with improving renal function Called local hospital for their cultures discussed with staff Risks and benefits of antibiotics and IV access discussed At risk for secondary events and progression of this infection Medicines reviewed X-rays seen Prognosis poor to fair Klebsiella in sputum, CXR worse - watch closely Electronically signed by Sumaya, [facility] Conversion Clearing Supervisor Cerner at 12/21/2022 5:05 PM CDT documented in this encounter Plan of Treatment Not on file documented as of this encounter Visit Diagnoses Not on filedocumented in this encounter
--- OUTSIDE RECORDS SUMMARY | 2025-02-21 13:37 | XMS_ITS | Encounter Summary ---
Author Organization [employer] Address [address] [place] [address] Care Team Providers Care Medical Sales Associate Name Role Phone Unavailable Primary Care Provider Unavailabl e Encounter Details Date Type Department Care Team (Late st Contact Info) Description 04/10/2022 Transcribed Document [facility] [place] [address] [place] [address] ProviderFlorentino MD [address] [place] [address] Social History Tobacco Use [...] Note - Florentino Lynne MD - 04/10/2022 10:49 PM CDT Patient: ALYSSA AZUL Age: 61 years Sex: Female : 1960 Associated Diagnoses: None Author: HIGINIO AREVALO MD-INF Antibiotics: Zyvox, meropenem, micafungin. CC: Sacral wound Subjective: Patient remains on CRRT decrease pressors still with hypothermia elevated blood pressure Objective: Vitals Signs (last 24 hrs) Last Charted Minimum Maximum Mon HR 49 (APR 10 20:19) 38 (APR 10 04:30) 66 (APR 10 16:30) Resp Rate 18 (APR 10 20:19) L 9 (APR 09 23:15) H 48 (APR 10 00:29) SBP 115 (APR 10 19:30) 92 (APR 10 00:45) H 189 (APR 10 03:15) DBP 60 (APR 10 19:30) L 51 (APR 10 08:32) 90 (APR 10 02:30) MAP 82 (APR 10 19:30) 19 (APR 10 17:15) 276 (APR 10 18:00) SpO2 100 (APR 10 20:19) 99 (APR 10 02:00) 100 (APR 09 23:00) T-max 96 PE: General: Patient sedated on mechanical ventilation acutely and chronically ill-appearing HEENT: sclera white without conjunctival injection. No erythema, exudate or ulceration. No thrush present. ET tube in place Neck: Supple without nuchal rigidity Lungs: Bilateral rhonchi on vent Cardiovascular: normal S1/S2; RRR, no m/r/g. Abdomen: [...] 317 (APR 08) 356 (APR 08) Na 138 (APR 10) 136 (APR 10) 136 (APR 10) 139 (APR 09) K 4.0 (APR 10) 4.3 (APR 10) 4.1 (APR 10) 4.2 (APR 09) Cl 107 (APR 10) 106 (APR 10) 106 (APR 10) 107 (APR 09) CO2 23 (APR 10) L 15 (APR 10) L 17 (APR 10) 22 (APR 09) BUN 9 (APR 10) 10 (APR 10) 11 (APR 10) 15 (APR 09) Cr 0.70 (APR 10) 0.90 (APR 10) 1.00 (APR 10) H 1.20 (APR 09) Glu R H 148 (APR 10) H 139 (APR 10) H 174 (APR 10) H 119 (APR 09) Ca L 7.7 (APR 10) L 7.8 (APR 10) L 7.7 (APR 10) L 7.5 (APR 09) Lactic 0.6 (APR 10) 1.3 [...] (APR 08) 8.1 (APR 08) ALB L 2.1 (APR 10) L 2.3 (APR 10) L 2.3 (APR 10) L 2.3 (APR 09) Lipase H 638 (APR 10) H 1965 (APR 09) H 1603 (APR 08) MICRO: Wound culture gram-negative gaby urine with gram-negative gaby IMAGING: Radiology Results (Last 48 hours) [id number] -- 04/08/2022 07:53 CR Chest 1 Vw Portable (04/09/2022 03:34) [...] interpreted, dictated and electronically signed by MD TIFFANY Andre Chest 1 Vw Portable (04/10/2022 03:45) Result: [...] interpreted, dictated and electronically signed by MD TIFFANY Andre Abdomen 1 Vw Portable (04/10/2022 17:13) Result: SINGLE VIEW ABDOMENHISTORY: Feeding tube placement.COMPARISON: None.FINDINGS: The tip of the feeding tube ends at the region of thepylorus, but it is not convincingly within the duodenum. Only the upperabdomen is included on this exam.IMPRESSION: Feeding tube at the level of the pylorus, but notconvincingly within the duodenum. IMPRESSION: - Septic shock with severe sepsis with respiratory and renal failure on multiple pressors -Prior large left gluteal soft tissue infection, ulceration, to level of soft tissue: -Acute hypoxic respiratory failure and Bilateral pulmonary infiltrates: Status post code with cardiopulmonary arrest -Hypothermia - Metabolic acidosis - Acute kidney failure on reported CKD, unknown stage - Acute encephalopathy -Neutrophilic leukocytosis - Anemia - Chronic paraplegia - Obesity - DM2 Assessment: 61-year-old chronically ill long hospitalization with [...] improved and now down on pressors today. Urine and wound culture now with gram-negative rods remains broadly covered RECOMMENDATIONS/PLANS: -Follow-up cultures, gram-negative rods in urine and wound culture at risk for multidrug-resistant organisms -Continue Zyvox, meropenem, and micafungin -Monitor labs on vent and CRRT ICU evaluation assessment as I spent greater than 35 minutes on case today with more than 50% time in counseling/coronation care review with nursing at bedside ongoing broad-spectrum antibiotic sepsis with multiorgan system failure documented in this encounter Plan of Treatment Not on file documented as of this encounter Visit Diagnoses Not on filedocumented in this encounter
--- OUTSIDE RECORDS SUMMARY | 2025-02-21 13:37 | XMS_ITS | Encounter Summary ---
Author Organization [employer] Address [address] [place] [id number] Care Team Providers Care Construction Rep Name Role Phone Unavailable Primary Care Provider Unavailabl e Encounter Details Date Type Department Care Team (Late st Contact Info) Description 02/24/2022 Transcribed Document [facility] [place] [address] [place] [address] ProviderFlorentino MD [address] [place] [address] Social History Tobacco Use Types Packs/Day Years Used Date Smoking Tobacco: Never Assessed Comments Unknown Sex and Gender Information Value Date Recorded Sex Assigned at Not on file Legal Sex Female 1:44 PM CDT Gender Identity Not on file Sexual Orientation Not on file documented as of this encounter Miscellaneous Notes * Cerner Conversion Note - Florentino ProviderMD - 02/24/2022 5:00 PM CDT Chart Check - Review Order Profile Entered On: 02/24/2022 18:13 EDT Performed On: 02/24/2022 17:00 EDT by Maritza Elena RN Chart Check Powerplans Initiated/Discontinued as Appropriate : Yes All Active Orders Reviewed : Yes Maritza Elena RN - 02/24/2022 18:13 EDT Electronically signed by Sumaya [facility] Conversion Hair Or Beauty Salon Assistant Cerner at 12/21/2022 5:04 PM CDT documented in this encounter Plan of Treatment Not on file documented as of this encounter Visit Diagnoses Not on filedocumented in this encounter
--- OUTSIDE RECORDS SUMMARY | 2025-02-21 13:37 | XMS_ITS | Encounter Summary ---
Author Organization [employer] Address [address] [place] [address] Care Team Providers Care Imaging Specialist Name Role Phone Unavailable Primary Care Provider Unavailabl e Encounter Details Date Type Department Care Team (Late st Contact Info) Description 02/24/2022 Transcribed Document [facility] [place] Family Medicine [address] [place] [address] ProviderFlorentino MD [address] [place] [address] Social History Tobacco Use Types Packs/Day Years Used Date Smoking Tobacco: Never Assessed Comments Unknown Sex and Gender Information Value Date Recorded Sex Assigned at Not on file Legal Sex Female 1:44 PM CDT Gender Identity Not on file Sexual Orientation Not on file documented as of this encounter Miscellaneous Notes * Cerner Conversion Note - Historical ProviderMD - 02/24/2022 2:00 AM CDT Hand Stapler Details Entered On: 02/24/2022 2:59 EDT Performed On: 02/24/2022 2:00 EDT by Junie Dorsey Rn Flex II Order Details Transport Mode Order Detail : Bed (including specialty) Lift/Transfer : Maximal assist Central Line Order Detail : No Room Service : Appropriate Arterial Line : No Patient Needs Meds Crushed/Liquid : Yes Meds Administered Via Tube : Yes Junie Dorsey Rn Flex II - 02/24/2022 2:59 EDT documented in this encounter Plan of Treatment Not on file documented as of this encounter Visit Diagnoses Not on filedocumented in this encounter
--- OUTSIDE RECORDS SUMMARY | 2025-02-21 13:37 | XMS_ITS | Encounter Summary ---
Author Organization [employer] Address [address] [place] [address] Care Team Providers Care Regulatory Compliance Specialist Name Role Phone Unavailable Primary Care Provider Unavailabl e Encounter Details Date Type Department Care Team (Late st Contact Info) Description 12/18/2022 Transcribed Document [facility] [place] Family Medicine [address] [place] [address] ProviderFlorentino MD [address] [place] [address] Social History Tobacco Use Types [...] - Historical ProviderMD - 10/19/2022 12:56 PM WINDOW DECORATOR COVID-19 Vaccination Entered On: 03/02/2022 14:26 EDT Performed On: 03/02/2022 13:00 EDT by Jenifer Fonseca RN COVID-19 Vaccination Patient Vaccinated for COVID-19 : Unable to obtain Jenifer Fonseca RN - 03/02/2022 14:26 EDT documented in this encounter Plan of Treatment Not on file documented as of this encounter Visit Diagnoses Not on filedocumented in this encounter
--- OUTSIDE RECORDS SUMMARY | 2025-02-21 13:37 | XMS_ITS | Encounter Summary ---
Author Organization [employer] Address [address] [place] [address] Care Team Providers Care Booster Operator Name Role Phone Unavailable Primary Care Provider Unavailabl e Encounter Details Date Type Department Care Team (Late st Contact Info) Description 02/24/2022 Transcribed Document [facility] [place] [facility] [place] [address] ProviderFlorentino MD [facility] [place] [address] Social History Tobacco Use Types Packs/Day Years Used Date Smoking Tobacco: Never Assessed Comments Unknown Sex and Gender Information Value Date Recorded Sex Assigned at Not on file Legal Sex Female 1:44 PM CDT Gender Identity Not on file Sexual Orientation Not on file documented as of this encounter Miscellaneous Notes * Cerner Conversion Note - Florentino Lynne MD - 02/24/2022 11:15 AM CDT [facility] Inpatient Documentation Entered On: 02/24/2022 13:34 EDT Performed On: 02/24/2022 11:15 EDT by Dory Helms Rn [facility] Admission Date : Admit Date 02/22/2022 00:[address] : Diagnosis (5) Cardiac arrest, cause unspecified Pneumonia, unspecified organism Acute kidney failure, unspecified Severe sepsis with septic shock 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 Upon arrival, patient is intubated on H[place] support surface, agreeable to assessment. Upon removal of dressing, revealed a Stage 3 PI that was POA. Wound cleansed with saline wound wash and patted dry with 4x4's. Wound measure 7.0xmX15.0cmX2.0cm. Periwound prepped with no sting barrier spray and adhesive drape. 1 PC of black foam placed to entire wound bed. Covered with vac drape. 1 PC black foam atop bridged to left hip for trac pad placement. Therapy started at 80mmHg, continuous, per MD. Pt tolerated dressing change, seal achieved. Please contact the wound care team regarding any changes in skin integrity or NPWT management. Dory Helms Rn - 02/24/2022 13:26 EDT Skin Breakdown Prevention Interventions Patient Repositioned : Yes Patient Position : Elevated left hip, Elevated lower left extremity, Elevated lower right extremity, Elevated upper left extremity, Elevated upper right extremity, Elevated Head of Bed Dory Helms Rn - 02/24/2022 13:26 EDT Education Topics, Wound Care Wound Education Grid Cleansing Wound : Needs further teaching Dressing Changes : Needs further teaching Principles of Wound Healing : Needs further teaching Product Use : Needs further teaching Wound vacuum : Needs further teaching Wound Care, Other : Needs further teaching Dory Helms Rn - 02/24/2022 13:26 EDT Wound & Pressure Ulcer WOCN Wound Pressure Ulcer Documentation : Pressure Ulcer Assessment: Hip Left on 02/24/2022 11:10 by Dory Helms Rn Present on Adm to Hosp: Yes Stage: Stage 3 Device Related: Unknown Dressing Status: Clean, Dry, Intact Dressing Activity: Assessed, Dressing changed Date of Dressing Change: :0.724047:0:0 Wound Bed Description: Granulation (beefy red), Granulation (pale red), Slough (soft yellow or hale), Undermining Bed Color(s): Brown, Pale [place], Red, Yellow Wound Edge: Not Attached Surrounding Tissue: Intact Length: 7.0 Width: 15.0 Depth: 2.0 Undermining Location/Distance, PU: 9 o clock with a depth of 3cm, to 1 oclock w/depth at 2cm. Drainage Amount: None Photographed: Yes Cleansing/Irrigation: Irrigated with sterile saline Skin Treatment: Barrier film Dressing Type/Treatment: NPWT NPWT (PU) Activity: Initial set-up application NPWT (PU) Inpatient Start Date: :0.747347:0:0 NPWT (PU) Device used: Dulce Maria Type of Foam or Gauze Applied (PU): Black Foam Number of Black Foam Applied (PU): 1 Number of TRAC Pads Applied (PU): 1 NPWT (PU) Pressure: Continuous NPWT (PU) Pressure Settin NPWT (PU) Canister Changed: No NPWT (PU) Canister Level: 0 WOCN Ostomy Documentation : No ostomy assessments reported. Dory Helms Rn - 02/24/2022 13:26 EDT Electronically signed by [facility] Conversion Silk Screen Printer Cerner at 12/21/2022 5:04 PM CDT documented in this encounter Plan of Treatment Not on file documented as of this encounter Visit Diagnoses Not on filedocumented in this encounter
--- OUTSIDE RECORDS SUMMARY | 2025-02-21 13:37 | XMS_ITS | Encounter Summary ---
Author Organization [employer] Address [address] [place] [address] Care Team Providers Care Copy Worker Name Role Phone Unavailable Primary Care Provider Unavailabl e Encounter Details Date Type Department Care Team (Late st Contact Info) Description 03/14/2022 Transcribed Document [facility] [place] Family Medicine [address] [place] [address] ProviderFlorentino MD [address] [place] [address] Social History Tobacco Use Types Packs/Day Years Used Date Smoking Tobacco: Never Assessed Comments Unknown Sex and Gender Information Value Date Recorded Sex Assigned at Not on file Legal Sex Female 1:44 PM CDT Gender Identity Not on file Sexual Orientation Not on file documented as of this encounter Miscellaneous Notes * Cerner Conversion Note - Historical ProviderMD - 03/14/2022 5:00 AM CDT Height and Weight, Routine Entered On: 03/14/2022 5:45 EDT Performed On: 03/14/2022 5:00 EDT by Ze Holbrook Patient Compound Filler Gopal Height and Weight, Routine Routine Weight Source : Bed scale Routine Weight Entry Format : [place] Routine Weight, Pounds : 179 lb Routine Weight, Ounces : 1 oz Routine Weight Calculation : 81.39 kg Height Source : Chart Height Entry Format : [place] Height, Feet : 5 ft Height, Inches : 4 Inch Clinical Height : 162.56 cm Body Surface Area (BSA), Routine : 1.87 m2 Body Mass Index (BMI), Routine : 30.8 kg/m2 Ze Holbrook Patient Compound Filler I - 03/14/2022 5:44 EDT documented in this encounter Plan of Treatment Not on file documented as of this encounter Visit Diagnoses Not on filedocumented in this encounter
--- OUTSIDE RECORDS SUMMARY | 2025-02-21 13:37 | XMS_ITS | Clinical Summary ---
Author Organization [facility] Address [address] [place] [address] Phone Care Team Providers Care Wireline Supervisor Name Role Phone Gama Encinas MD Unavailable [ ] Conditions or Problems Problem Name Problem Code Onset Date Status Entry Date Provider Comment Standard Description Annotate Pressure ulcer of left buttock, stage 3 745326469525 74151 (SNOMED CT) 05/11 Active 05/11 Giulia Jairon Pressure injury of buttock stage III Pressure ulcer of left buttock, stage 2 307751494812 09 (SNOMED CT) 05/11 Active 05/11 Giulia Jairon Pressure injury of left buttock stage II Citrobacter infection B96.89 (ICD-10-CM) 05/11 Active 05/11 Giulia Jairon Other specified bacterial agents as the cause of diseases classified elsewhere MRSA infection 473688974 (SNOMED CT) 05/11 Active 05/11 Giulia Jairon Methicillin resistant Staphylococcus aureus infection Corynebacteri um infection B96.89 (ICD-10-CM) 05/11 Active 05/11 Giulia Jairon Other specified bacterial agents as the cause of diseases classified elsewhere Klebsiella infection B96.1 (ICD-10-CM) 05/11 Active 05/11 Giulia Jairon Klebsiella pneumoniae [K. pneumoniae] as the cause of diseases classified elsewhere Urinary tract infection (UTI) 23288108 (SNOMED CT) 05/11 Active 05/11 Giulia Jairon Urinary tract infectious disease Acute renal failure due to dehydration 651874459 (SNOMED CT) 05/11 Active 05/11 Giulia Jairon Acute renal failure due to ischemia Anemia [...] diabetes mellitus without complications Benign Essential Hypertension 49107880 (SNOMED CT) 05/11 Active 05/11 Giulia De La O Benign hypertension Medications Medication Instructions Start Date Stop Date Generic Name NDC Provider ACETAMINOPHEN 325 MG TABS 2 Tab, PRN, Oral, Q6H acetaminophen [id number] Ana Maria Aguiar BISOPROLOL FUMARATE 5 MG TABS 1 Tab, Oral, Daily bisoprolol fumarate 80152326846 Ana Maria Aguiar CEFUROXIME AXETIL 500 MG TABS 1 Tab, Oral, BID cefuroxime axetil 26486410255 Ana Maria Aguiar FARXIGA 10 MG TABS 1 Tab, Oral, Daily dapagliflozin 84895252411 Ana Maria Aguiar FERROUS SULFATE 325 (65 Fe) MG TABS 1 Tab, Oral, BID ferrous sulfate [id number] Ana Maria Aguiar PRAVASTATIN SODIUM 40 MG TABS 1 Tab, Oral, At Bedtime pravastatin 61590045624 Ana Maria Aguiar DOCUSATE SODIUM 100 MG CAPS 1 Cap, PRN, Oral, BID docusate sodium [id number] Ana Maria Aguiar FOSAMAX PLUS D 70-2800 MG-UNIT TABS 1 Tab, Oral, Weekly alendronate-josephine min d3 [id number] Ana Mraia Aguiar LOVAZA 1 GM CAPS 2 Cap, Oral, BID omega-3 acid ethyl esters 28787112503 Ana Maria Aguiar METFORMIN HCL 500 MG TABS 1 Tab, Oral, BID metformin [id number] Ana Maria Aguiar MUCINEX 600 MG [id number]-[id number] 1 Tab, Oral, Q12H guaifenesin [id number] Ana Maria Aguiar PEPCID 20 MG TABS 1 Tab, Oral, Q12H famotidine [id number] Ana Maria Aguiar SENNA 8.6 MG TABS 1 Tab, Oral, At Bedtime sennosides [id number] Ana Maria Aguiar Medications Administered No information available. Allergies, Adverse Reactions, Alerts No information available. Results Date Name Value Unit Range Flag Description Office Visit: rm 13 - TH MEDS REVIEW Done Documenta tion of current medications (procedure) ORALTOBACUSE Never Tobacco smoking status SMOK STATUS Never smoker Toba cut tobacco bulker smoking status Plan of Care Type Date [...] Weight Measured 160.0 [lb_av] weight E& M Weight Measured 160.0 [lb_av] weight E& M Immunizations No information available. Advance Directives No information available.
--- OUTSIDE RECORDS SUMMARY | 2025-02-21 13:37 | XMS_ITS | Encounter Summary ---
Author Organization [employer] Address [address] [place] [address] Care Team Providers Care Accountant Bookkeeper Name Role Phone Unavailable Primary Care Provider Unavailabl e Encounter Details Date Type Department Care Team (Late st Contact Info) Description 12/18/2022 Transcribed Document [facility] [place] Family Medicine [address] [place] [address] ProviderFlorentino MD [address] [place] [address] Social History Tobacco Use Types [...] - Historical ProviderMD - 10/19/2022 12:56 PM GENERATOR TECHNICIAN COVID-19 Vaccination Entered On: 03/02/2022 14:26 EDT Performed On: 03/02/2022 12:50 EDT by Jenifer Fonseca RN COVID-19 Vaccination Patient Vaccinated for COVID-19 : Unable to obtain Jenifer Fonseca RN - 03/02/2022 14:26 EDT documented in this encounter Plan of Treatment Not on file documented as of this encounter Visit Diagnoses Not on filedocumented in this encounter
--- OUTSIDE RECORDS SUMMARY | 2025-02-21 13:37 | XMS_ITS | Encounter Summary ---
Author Organization [facility] Address [address] [place] [address] Care Team Providers Care Deli Cutter Slicer Name Role Phone Unavailable Primary Care Provider Unavailabl e Encounter Details Date Type Department Care Team (Late st Contact Info) Description 04/10/2022 Transcribed Document [facility] [address] [place] [address] ProviderFlorentino MD [address] [place] [address] Social History Tobacco Use Types Packs/Day Years Used Date Smoking Tobacco: Never Assessed Comments Unknown Sex and Gender Information Value Date Recorded Sex Assigned at Not on file Legal Sex Female 1:44 PM CDT Gender Identity Not on file Sexual Orientation Not on file documented as of this encounter Miscellaneous Notes * Cerner Conversion Note - Florentino Lynne MD - 04/10/2022 3:35 PM CDT On Going Discharge Planning Entered On: 04/10/2022 15:40 EDT Performed On: 04/10/2022 15:35 EDT by SHERIF PAYNE, RN-Geophysics ProfessorIndustrial Robotics Mechanic Progress Note Discharge Arrangements : Patient Post-Acute Information Patient Name: ALYSSA AZUL Gender: Female : 60 Age: 61 Years No Post-Acute Placement(s) Listed No Post-Acute Service(s) Listed No [place] Referral(s) Listed Discharge Options Discussed with Patient : Home Health, jail Patient Discharge Goal : long-term facility SHERIF PAYNE, RN-Geophysics Professor - 04/10/2022 15:35 EDT Narrative Progress Note Narrative Progress Note : late entry for this am. Aimee Payne, [facility] social worker was on site this am. she spoke with clover Bowen rn, interviewed pt's son and spoke with Ms. azul who was awake on ventilator. she left number for claudia Groves sound to call her at Yaneli's convenience. provided medical records as requested. Historical Progress Note : HD# 2. elos: 5. rar: high acute hypoxic resp failure. severe sepsis: shock. campos/ckd. acute pancreatitis. diabetes. paraplegia. covid 19: negative 8-9. following commads. mechanical ventilation. crrt. fentanyl gtt. insulin gtt. levophed gtt. evaluation Dr Abraham, defective cigarette slitter. see her notes. no vaginal laceration. return call from Gayathri Loren, . she contacted lorrie Cohen for [facility], [facility] with family concerns. [phone]. [facility] accepted case: [id number]. dcp: family decline return to [facility]. they hope she will improve to dc home with them in [place]. spoke with Monique Groves PA, sound attending. clover Bowen RN. SHERIF PAYNE RN-Geophysics Professor - 04/10/22 09:41:02 received email from [facility]ps. they have accepted & will assign to healthcare social worker. SHERIF PAYNE RN-Geophysics Professor - 04/09/22 15:19:44 [facility] reported filed. [id number]. spoke with clover Bowen rn, Amber, gunstock spray unit adjuster & Mary plumbing warehouse helper. SHEIRF PAYNE RN-Geophysics Professor - 04/09/22 12:07:07 SHERIF PAYNE RN-Geophysics Professor - 04/10/2022 15:35 EDT documented in this encounter Plan of Treatment Not on file documented as of this encounter Visit Diagnoses Not on filedocumented in this encounter
--- OUTSIDE RECORDS SUMMARY | 2025-02-21 13:37 | XMS_ITS | Encounter Summary ---
Author Organization [employer] Address [address] [place] [address] Care Team Providers Care Cloth Washer Back Tender Name Role Phone Unavailable Primary Care Provider Unavailabl e Encounter Details Date Type Department Care Team (Late st Contact Info) Description 03/04/2022 Transcribed Document [facility] [place] [address] [place] [address] ProviderFlorentino MD [address] [place] [address] Social History Tobacco Use Types Packs/Day Years Used Date Smoking Tobacco: Never Assessed Comments Unknown Sex and Gender Information Value Date Recorded Sex Assigned at Not on file Legal Sex Female 1:44 PM CDT Gender Identity Not on file Sexual Orientation Not on file documented as of this encounter Miscellaneous Notes * Cerner Conversion Note - Historical ProviderMD - 03/04/2022 5:00 PM CDT Chart Check - Review Order Profile Entered On: 03/04/2022 18:31 EDT Performed On: 03/04/2022 17:00 EDT by Jenifer Fonseca RN Chart Check Powerplans Initiated/Discontinued as Appropriate : Yes All Active Orders Reviewed : Yes Jenifer Fonseca RN - 03/04/2022 18:31 EDT documented in this encounter Plan of Treatment Not on file documented as of this encounter Visit Diagnoses Not on filedocumented in this encounter
--- OUTSIDE RECORDS SUMMARY | 2025-02-21 13:38 | XMS_ITS | Encounter Summary ---
Author Organization [employer] Address [address] [place] [address] Care Team Providers Care Stock Manager Name Role Phone Unavailable Primary Care Provider Unavailabl e Encounter Details Date Type Department Care Team (Late st Contact Info) Description 03/13/[address] [facility] [place] Family Medicine [address] [place] [address] ProviderFlorentino MD [address] [place] [address] Social History Tobacco Use Types Packs/Day Years Used Date Smoking Tobacco: Never Assessed Comments Unknown Sex and Gender Information Value Date Recorded Sex Assigned at Not on file Legal Sex Female 1:44 PM CDT Gender Identity Not on file Sexual Orientation Not on file documented as of this encounter Miscellaneous Notes * Cerner Conversion Note - Historical ProviderMD - 03/13/2022 2:00 AM CDT Refinery Operator Vapor Recovery Unit Details Entered On: 03/13/2022 3:29 EDT Performed On: 03/13/2022 2:00 EDT by Penny Mcallister RN Order Details Transport Mode Order Detail : Bed (including specialty) Isolation Precautions Order Detail : Standard Precautions Order Detail : 0 Lift/Transfer : Maximal assist Central Line Order Detail : Yes Room Service : Not Appropriate Arterial Line : Yes Patient Needs Meds Crushed/Liquid : No Penny Mcallister RN - 03/13/2022 3:29 EDT documented in this encounter Plan of Treatment Not on file documented as of this encounter Visit Diagnoses Not on filedocumented in this encounter
--- OUTSIDE RECORDS SUMMARY | 2025-02-21 13:38 | XMS_ITS | Encounter Summary ---
Author Organization [facility] Address [address] [place] [address] Care Team Providers Care Steno Pool Supervisor Name Role Phone Unavailable Primary Care Provider Unavailabl e Encounter Details Date Type Department Care Team (Late st Contact Info) Description 04/18/2022 Transcribed Document [facility] [place] Family Medicine [address] [place] [address] ProviderFlorentino MD [address] [place] [address] Social History Tobacco Use Types Packs/Day Years Used Date Smoking Tobacco: Never Assessed Comments Unknown Sex and Gender Information Value Date Recorded Sex Assigned at Not on file Legal Sex Female 1:44 PM CDT Gender Identity Not on file Sexual Orientation Not on file documented as of this encounter Miscellaneous Notes * Cerner Conversion Note - Florentino Lynne MD - 04/18/2022 1:51 PM CDT On Going Discharge Planning Entered On: 04/18/2022 13:51 EDT Performed On: 04/18/2022 13:51 EDT by ERIK GALARZA Delivery Of Shopping News-Box Sealing Machine Feeder Care Management Progress Note Discharge Arrangements : Patient Post-Acute Information Patient Name: ALYSSA AZUL Gender: Female : 60 Age: 61 Years No Post-Acute Placement(s) Listed No Post-Acute Service(s) Listed No Curaspan Referral(s) Listed Discharge Options Discussed with Patient : Home Health, alf Barriers to Discharge Identified : Clinical Condition of Patient Barriers to Discharge Unresolved : Clinical Condition of Patient Patient Discharge Goal : Home health care Patient Offered Choice/Affiliations Explained : Yes Is the Patient Meeting Medical Necessity : Yes Did you Attend Multidisciplinary Rounds? : Yes ERIK GALARZA, Delivery Of Shopping News-Box Sealing Machine Feeder - 04/18/2022 13:51 EDT Narrative Progress Note Narrative Progress Note : Cm spoke with patient and Daughter in law. Patient is going to need IV abx until 04/29. Id plan and access is not yet know. Will be known by Thursday. Patient really wants to go home but if has to go home on Iv abx it will not be doable per facility. Patient will be more open to going to facility if it is in [place]. Cm faxed to [facility] per permission from family. CM will continue to follow. Historical Progress Note : Patient has been declined by all HH agencies. CM spoke to patient is open to [facility] however, [facility] does not have an open bed and cannot accept patient. Patient was unwilling to consider other options such as rehab, or LTACHs further way, or Swing bed. CM spoke to patient's daughter in law. Daughter in law understood patients need and said she, patient's son, and patient would speak tonight about what they would like to do. Patient is a total assist with PT. CM will continue to follow. ERIK GALARZA, Delivery Of Shopping News-Box Sealing Machine Feeder - 04/17/22 14:39:18 Patient requested CM speak with her daughter in law. Cm spoke with [facility] who reported patient wants to discharge home with HH and DME. She will need a BSC for sure. If possible she would like to have a new CPAP as her's is old and needs replaced. Unsure of company name but maybe [place]. Patient has all other DME. Patient does not have a preference of HH agency but wants it to be in area and with insurance. CM will continue to follow and set up DME and HH. ERIK GALARZA, Delivery Of Shopping News-Box Sealing Machine Feeder - 04/16/22 15:45:27 home health referral made to [facility] to assist with HH placement. very few HH agencies participate with pt's insurance so wound vac may need management at wound clinic. pt may have to do outpt PT is she delines snf-swing bed-ltach. TRISTAN TAYLOR, RN-Electrode Turner And Finisher - 04/15/22 12:07:49 RRS HIGH, LOS 7, ELOS 5 Jybpud-dlk-qiw-ivakldtsauks-mztizdhopinc-pzwwmsxoa acidosis HX paraplegia since age 8 L. trochanter-- 11.0cmx6.5cmx2.0cm-current with wound vac CRRT off since 04/11-- possible catheter removal 8.16 Lvtmb3zutwithtqt-srpwgaoxk Pt was discharged to [place] in 03.21. family refuses to return to [place] and [place] declined to accept back. Spoke with pt and she wishes to dc home with her son. She will need , PT for transfers as PLOF was independent, she will need wound vac and son will provide transportation. APS following: Aimee Payne, TRISTAN TAYLOR, PRIMO-Electrode Turner And Finisher - 04/15/22 11:57:48 HD# 3. elos: 5. rar: high acute hypoxic resp failure. severe sepsis: shock. campos/ckd. acute pancreatitis. diabetes. paraplegia. covid 19: negative 04-08. bipap 30%/ra. zyvox/merrem/micafungin iv. wound vac: left trochanter. corpak tube feeds. PT/OT: eob. ST: cleared for diet. no dialysis. APS following: Aimee Payne, . left message with updates. dcp: family decline return to [place]. new referral [facility]. sent [facility]. spoke with bessie granda coordintor. they hope she will improve to dc home with them in [place]. FREDO, son, legal next of kin: [phone] Divine, daughter in law: [phone] SHERIF PAYNE, RN-Electrode Turner And Finisher - 04/14/22 10:45:05 HD# 3. elos: 5. rar: high acute hypoxic resp failure. severe sepsis: shock. campos/ckd. acute pancreatitis. diabetes. paraplegia. covid 19: negative -9. extubated 8-11. 02 4L nc. crrt. levophed gtt. bicarb gtt. zyvox/merrem/micafungin iv. wound vac: left trochanter. APS following: Aimee Payne, . dcp: family decline return to [place]. they hope she will improve to dc home with them in [place]. not ltac candidate at this time due to crrt. FREDO, son, legal next of kin: [phone] Divine, daughter in law: [phone] SHERIF PAYNE, RN-Electrode Turner And Finisher - 04/11/22 09:13:49 late entry for this am. Aimee Payne, aps psychiatric social worker supervisor was on site this am. she spoke with clover Bowen rn, interviewed pt's son and spoke with Ms. azul who was awake on ventilator. she left number for claudia Groves sound to call her at Yaneli's convenience. provided medical records as requested. SHERIF PAYNE RN-Electrode Turner And Finisher - 04/10/22 15:40:22 HD# 2. elos: 5. rar: high acute hypoxic resp failure. severe sepsis: shock. campos/ckd. acute pancreatitis. diabetes. paraplegia. covid 19: negative 8-9. following commads. mechanical ventilation. crrt. fentanyl gtt. insulin gtt. levophed gtt. evaluation Dr Abraham, wool washer feeder. see her notes. no vaginal laceration. return call from Gayathri Pimentel, . she contacted lorrie Cohen for [place], [facility], [facility] & [facility] with family concerns. [phone]. APS accepted case: [id number]. dcp: family decline return to [facility]. they hope she will improve to dc home with them in [place]. spoke with Monique Groves PA, sound attending. clover Bowen RN. SHERIF PAYNE RN-Electrode Turner And Finisher - 04/10/22 09:41:02 received email from aps. they have accepted & will assign to psychiatric social worker supervisor. SHERIF PAYNE RN-Electrode Turner And Finisher - 04/09/22 15:19:44 APS reported filed. [id number]. spoke with clover Bowen rn, Amber, chief unit forester & Mary, manager warehouse. SHERIF PAYNE, RN-Electrode Turner And Finisher - 04/09/22 12:07:07 ERIK GALARZA, Delivery Of Shopping News-Box Sealing Machine Feeder - 04/18/2022 13:51 EDT documented in this encounter Plan of Treatment Not on file documented as of this encounter Visit Diagnoses Not on filedocumented in this encounter
--- OUTSIDE RECORDS SUMMARY | 2025-02-21 13:38 | XMS_ITS | Encounter Summary ---
Author Organization [employer] Address [address] [place] [address] Care Team Providers Care Entry Level Sales Consultant Name Role Phone Unavailable Primary Care Provider Unavailabl e Encounter Details Date Type Department Care Team (Late st Contact Info) Description 04/10/2022 Transcribed Document [facility] [place] [address] [place] [address] ProviderFlorentino MD [address] [place] [address] Social History Tobacco Use Types Packs/Day Years Used Date Smoking Tobacco: Never Assessed Comments Unknown Sex and Gender Information Value Date Recorded Sex Assigned at Not on file Legal Sex Female 1:44 PM CDT Gender Identity Not on file Sexual Orientation Not on file documented as of this encounter Miscellaneous Notes * Cerner Conversion Note - Florentino Lynne MD - 04/10/2022 1:15 PM CDT Meds to Bed Enrollment Entered On: 04/10/2022 13:15 EDT Performed On: 04/10/2022 13:15 EDT by Huma Ribera, PHARMACIST-SPECIALIST CLINICAL Meds to Bed Enrollment Patient Enrollment Decision: : Yes/enroll in meds to bed program Huma Ribera, PHARMACIST-SPECIALIST CLINICAL - 04/10/2022 13:15 EDT documented in this encounter Plan of Treatment Not on file documented as of this encounter Visit Diagnoses Not on filedocumented in this encounter
--- OUTSIDE RECORDS SUMMARY | 2025-02-21 13:38 | XMS_ITS | Encounter Summary ---
Author Organization [employer] Address [address] [place] [address] Care Team Providers Care Marketing And Outreach Coordinator Name Role Phone Unavailable Primary Care Provider Unavailabl e Encounter Details Date Type Department Care Team (Late st Contact Info) Description 04/18/2022 Transcribed Document [facility] [place] Family Medicine [address] [place] [address] ProviderFlorentino MD [address] [place] [address] Social History Tobacco Use Types Packs/Day Years Used Date Smoking Tobacco: Never Assessed Comments Unknown Sex and Gender Information Value Date Recorded Sex Assigned at Not on file Legal Sex Female 1:44 PM CDT Gender Identity Not on file Sexual Orientation Not on file documented as of this encounter Miscellaneous Notes * Cerner Conversion Note - Florentino ProviderMD - 04/18/2022 5:00 AM CDT Height and Weight, Routine Entered On: 04/18/2022 6:23 EDT Performed On: 04/18/2022 5:00 EDT by Zainab Cruz RN-PATIENT CARE BEDSIDE NON-EXEMPT Height and Weight, Routine Routine Weight Source : Bed scale Routine Weight Entry Format : Metric Routine Weight, Kilograms : 82 kg(Converted to: 180 lb 12 oz) Routine Weight, Grams Pediatric : 100 Gram Routine Weight Calculation : 82.1 kg Height Source : Estimated Height Entry Format : [place] Height, Feet : 5 ft Height, Inches : 6 Inch Clinical Height : 167.64 cm Body Surface Area (BSA), Routine : 1.92 m2 Body Mass Index (BMI), Routine : 29.21 kg/m2 Zainab Cruz RN-PATIENT CARE BEDSIDE NON-EXEMPT - 04/18/2022 6:23 EDT documented in this encounter Plan of Treatment Not on file documented as of this encounter Visit Diagnoses Not on filedocumented in this encounter
--- OUTSIDE RECORDS SUMMARY | 2025-02-21 13:38 | XMS_ITS | Encounter Summary ---
Author Organization [employer] Address [address] [place] [address] Care Team Providers Care Binding Cutter Name Role Phone Unavailable Primary Care Provider Unavailabl e Encounter Details Date Type Department Care Team (Late st Contact Info) Description 03/13/2022 Transcribed Document [facility] [place] [address] [place] [address] ProviderFlorentino MD [address] [place] [address] Social History Tobacco Use Types Packs/Day Years Used Date Smoking Tobacco: Never Assessed Comments Unknown Sex and Gender Information Value Date Recorded Sex Assigned at Not on file Legal Sex Female 1:44 PM CDT Gender Identity Not on file Sexual Orientation Not on file documented as of this encounter Miscellaneous Notes * Cerner Conversion Note - Florentino ProviderMD - 03/13/2022 12:35 PM CDT Patient: ALYSSA MAYORGA Age: 61 Years Sex: Female : 1960 Subjective Complaining of productive cough. CRP and procalcitonin trending down. Unfortunately BUN and creatinine bumped up slightly. Still making good urine. Afebrile. Blood pressure little bit low. Vital Signs T: 36.7 ??C TMIN: 36.5 ??C TMAX: 36.7 ??C HR: 88(Monitored) RR: 17 BP: 101/61 SpO2: 94% HT: 162.56 cm WT: 77.76 kg BMI: 29.43 Oxygen Settings (Last) Oxygen Therapy Mode: Nasal cannula (03/13/22 11:47:00) Oxygen Flow Rate: 2 Liter/Min (03/13/22 11:47:00) Intake & Output Totals Last 24 Hours (7a-7a) Input Total: 380.52 mL Output Total: 1150 mL Balance: -769.48 mL Physical Exam General: Alert, obese, no [...] pneumonia PCR + MSSA ID following: Zosyn, doxycycline?duration? #Acute on chronic kidney disease III Baseline creatinine around 1.6?trending up Nephrology following Etiology prerenal azotemia/ATN due to [...] hospitalized due to - doing better. Cr continues to rise. Awaiting further recs from nephro... Awaiting final recs from ID about abx [...] While patient is in bed, [facility] Sequential Compression Device Start: 03/01/22 18:51:00 EDT, Bilateral, Length: Knee High, While patient is in bed, Continuous Order ([facility] sanjuanita, PHYSICIAN-CLINIC) Medications acetaminophen, 650 mg= 2 Tab, [...] Test Result Date/Time Sodium Level 138 mmol/L 03/13/2022 05:40 EDT Potassium Level 3.5 mmol/L 03/13/2022 05:40 EDT Chloride Level 103 mmol/L 03/13/2022 05:40 EDT Carbon Dioxide Level 27 mmol/L 03/13/2022 05:40 EDT Anion Gap 12 03/13/2022 05:40 EDT Glucose Level 179 mg/dL (High) 03/13/2022 05:40 EDT Blood Urea Nitrogen 52 mg/dL (High) 03/13/2022 05:40 EDT Creatinine Level 2.10 mg/dL (High) 03/13/2022 05:40 EDT eGFR 29 mL/min/1.73m2 (Low) 03/13/2022 05:40 EDT eGFR NonAfrican 24 mL/min/1.73m2 (Low) 03/13/2022 05:40 EDT Bun/Creatinine 24.8 (High) 03/13/2022 05:40 EDT Calcium Level 8.7 mg/dL 03/13/2022 05:40 EDT Device Comment 1 Notified Nurse RBV 03/13/2022 10:46 EDT Device Comment 1 Protocols Followed 03/13/2022 05:41 EDT Device Comment 1 Protocols Followed 03/12/2022 20:22 EDT Device Comment 2 Notified Nurse RBV 03/13/2022 05:41 EDT Device Comment 2 Notified Nurse RBV 03/12/2022 20:22 EDT Glucose POC2 293 mg/dL (High) 03/13/2022 10:46 EDT Glucose POC2 156 mg/dL (High) 03/13/2022 05:41 EDT Glucose POC2 153 mg/dL (High) 03/12/2022 20:22 EDT Glucose POC2 174 mg/dL (High) 03/12/2022 16:17 EDT CRP 1.37 mg/dL (High) 03/13/2022 05:40 EDT WBC 6.8 K/uL 03/13/2022 05:40 EDT RBC 2.92 Million/uL (Low) 03/13/2022 05:40 EDT Hgb 8.2 g/dL (Low) 03/13/2022 05:40 EDT Hct 26.2 % (Low) 03/13/2022 05:40 EDT MCV 89.7 fL 03/13/2022 05:40 EDT MCH 28.1 pg 03/13/2022 05:40 EDT MCHC 31.3 Gram/dL (Low) 03/13/2022 05:40 EDT Platelet Count 134 K/uL (Low) 03/13/2022 05:40 EDT MPV 10.8 fL 03/13/2022 05:40 EDT RDW 15.7 % (High) 03/13/2022 05:40 EDT Neutrophil Percent Man 61 % 03/13/2022 05:40 EDT Band Percent Man 1 % (Low) 03/13/2022 05:40 EDT ANC # 4 K/uL 03/13/2022 05:40 EDT Lymph Percent Man 22 % (Low) 03/13/2022 05:40 EDT ALYC # 1 K/uL 03/13/2022 05:40 EDT Mcmullen Percent Man 9 % (High) 03/13/2022 05:40 EDT Eos Percent Man 4 % (High) 03/13/2022 05:40 EDT Baso Percent Man 1 % 03/13/2022 05:40 EDT Myelo Percent Man 2 % (High) 03/13/2022 05:40 EDT RBC Morphology Abnormal 03/13/2022 05:40 EDT Anisocytosis 1+ (Abnormal) 03/13/2022 05:40 EDT Poikilocytosis 1+ (Abnormal) 03/13/2022 05:40 EDT Polychromasia 1+ (Abnormal) 03/13/2022 05:40 EDT Hypochromia 1+ (Abnormal) 03/13/2022 05:40 EDT Ovalocytes 1+ (Abnormal) 03/13/2022 05:[address] Estimate Decreased (Abnormal) 03/13/2022 05:40 EDT Slide Review Add Diff 03/13/2022 05:40 EDT documented in this encounter Plan of Treatment Not on file documented as of this encounter Visit Diagnoses Not on filedocumented in this encounter
--- OUTSIDE RECORDS SUMMARY | 2025-02-21 13:38 | XMS_ITS | Encounter Summary ---
Author Organization [employer] Address [address] [place] [address] Care Team Providers Care Information Scientist Name Role Phone Unavailable Primary Care Provider Unavailabl e Encounter Details Date Type Department Care Team (Late st Contact Info) Description 04/17/2022 Transcribed Document [facility] [place] [address] [place] [address] ProviderFlorentino MD [address] [place] [address] Social History Tobacco Use Types Packs/Day Years Used Date Smoking Tobacco: Never Assessed Comments Unknown Sex and Gender Information Value Date Recorded Sex Assigned at Not on file Legal Sex Female 1:44 PM CDT Gender Identity Not on file Sexual Orientation Not on file documented as of this encounter Miscellaneous Notes * Cerner Conversion Note - Historical ProviderMD - 04/17/2022 2:00 AM CDT Client Services Director Details Entered On: 04/17/2022 2:17 EDT Performed On: 04/17/2022 2:00 EDT by Edda Guzman Non Emp Traveler RN Order Details Transport Mode Order Detail : Bed (including specialty) Isolation Precautions Order Detail : Standard Precautions Order Detail : 0 Lift/Transfer : Maximal assist Central Line Order Detail : Yes Room Service : Appropriate Arterial Line : Yes Patient Needs Meds Crushed/Liquid : No Edda Guzman Non Emp Traveler RN - 04/17/2022 2:17 EDT Electronically signed by Bruce Shell Conversion Industrial Refrigeration Mechanic Mykel at 12/21/2022 5:02 PM CDT documented in this encounter Plan of Treatment Not on file documented as of this encounter Visit Diagnoses Not on filedocumented in this encounter
--- OUTSIDE RECORDS SUMMARY | 2025-02-21 13:38 | XMS_ITS | Encounter Summary ---
Author Organization [employer] Address [address] [place] [address] Care Team Providers Care Chemical Operator Name Role Phone Unavailable Primary Care Provider Unavailabl e Encounter Details Date Type Department Care Team (Late st Contact Info) Description 04/17/2022 Transcribed Document [facility] [place] [address] [place] [address] ProviderFlorentino MD [address] [place] [address] Social History Tobacco Use Types Packs/Day Years Used Date Smoking Tobacco: Never Assessed Comments Unknown Sex and Gender Information Value Date Recorded Sex Assigned at Not on file Legal Sex Female 1:44 PM CDT Gender Identity Not on file Sexual Orientation Not on file documented as of this encounter Miscellaneous Notes * Cerner Conversion Note - Florentino ProviderMD - 04/17/2022 5:00 AM CDT Height and Weight, Routine Entered On: 04/17/2022 4:52 EDT Performed On: 04/17/2022 5:00 EDT by Edda Guzman Non Emp Traveler RN Height and Weight, Routine Routine Weight Source : Bed scale Routine Weight Entry Format : Metric Routine Weight, Kilograms : 81.6 kg(Converted to: 179 lb 14 oz) Routine Weight Calculation : 81.6 kg Height Source : Estimated Height Entry Format : [place] Height, Feet : 5 ft Height, Inches : 6 Inch Clinical Height : 167.64 cm Body Surface Area (BSA), Routine : 1.91 m2 Body Mass Index (BMI), Routine : 29.04 kg/m2 Edda Guzman Non Emp Traveler RN - 04/17/2022 4:40 EDT documented in this encounter Plan of Treatment Not on file documented as of this encounter Visit Diagnoses Not on filedocumented in this encounter
--- OUTSIDE RECORDS SUMMARY | 2025-02-21 13:38 | XMS_ITS | Encounter Summary ---
Author Organization [employer] Address [address] [place] [address] Care Team Providers Care Paint Factory Worker Name Role Phone Unavailable Primary Care Provider Unavailabl e Encounter Details Date Type Department Care Team (Late st Contact Info) Description 04/16/2022 Transcribed Document [facility] [place] [address] [place] [address] ProviderFlorentino MD [address] [place] [address] Social History Tobacco Use Types Packs/Day Years Used Date Smoking Tobacco: Never Assessed Comments Unknown Sex and Gender Information Value Date Recorded Sex Assigned at Not on file Legal Sex Female 1:44 PM CDT Gender Identity Not on file Sexual Orientation Not on file documented as of this encounter Miscellaneous Notes * Cerner Conversion Note - Florentino Lynne MD - 04/16/2022 9:32 AM CDT UM Authorization Entered On: 04/16/2022 9:33 EDT Performed On: 04/16/2022 9:32 EDT by SARAH MORALES RN Primary Insurance Authorization Authorization and Policy Numbers : Insurance 1 Health Plan: [facility] Policy Number: [id number] Authorization Number: Insurance Primary Name : [facility] - [id number] Authorization Status-Primary : Admit approved Reference Number-Primary : [id number] Number of Days Authorized-Primary : 13 Day(s) Authorized Service Begin Date-Primary : 04/08/2022 EDT Authorized Service End Date-Primary : 04/21/2022 EDT Authorization Comments-Primary : Per fax received 04/16 @ 0914am approved after p2p completed. Approved 04/08-04/21 NRD 04/22 Historical Authorization Comments-Primary : Comment 1: CLINICAL UPDATE FAXED VIA [employer] 04/11-04/15 ([address], PRIMO 04/15/2022 16:00) Comment 2: Per call to [facility] p2p line Luisa stated p2p took place yes04/14 and denial was OT/approved. Luisa did not have any idea regarding when c/s would be due. left for hedis review nurse Sharon. (SARAH MORALES RN 04/15/2022 12:15) Comment [...] would need to reach out to a [facility] physician as the one from yesterday is off service now. He stated I can call back in and reschedule. (SARAH MORALES RN 04/11/2022 10:30) Comment 5: [facility]. Scheduled for 04/[address] William calling Katie (SARAH MORALES RN 04/09/2022 15:26) Comment 6: Message sent to Katie for p2p. She has agreed to attempt. (SARAH MORALES RN 04/09/2022 13:02) Comment 7: PER [employer] IP AUTH PENDED. CLINICAL FAXED VIA [employer] (Digna Kidd Rn-Utilization Review 04/09/2022 11:31) Comment 8: Denied per fax 04/08/22 @ 1635 no resoning noted. Placed in Denials 2021 folder. (Mallory Sanchez, Pantograph Ii Engraver 04/09/2022 09:43) SARAH MORALES RN - 04/16/2022 9:32 EDT Electronically signed by [facility] Conversion Airport Planner Cerner at 12/21/2022 5:01 PM CDT documented in this encounter Plan of Treatment Not on file documented as of this encounter Visit Diagnoses Not on filedocumented in this encounter
--- OUTSIDE RECORDS SUMMARY | 2025-02-21 13:38 | XMS_ITS | Encounter Summary ---
Author Organization [employer] Address [address] [place] [address] Care Team Providers Care Area Development Consultant Name Role Phone Unavailable Primary Care Provider Unavailabl e Encounter Details Date Type Department Care Team (Late st Contact Info) Description 04/17/2022 Transcribed Document [facility] [place] Family Medicine [address] [place] [address] ProviderFlorentino MD [address] [place] [address] Social History Tobacco Use Types Packs/Day Years Used Date Smoking Tobacco: Never Assessed Comments Unknown Sex and Gender Information Value Date Recorded Sex Assigned at Not on file Legal Sex Female 1:44 PM CDT Gender Identity Not on file Sexual Orientation Not on file documented as of this encounter Miscellaneous Notes * Cerner Conversion Note - Florentino Lynne MD - 04/17/2022 3:23 PM CDT Patient: ALYSSA AZUL Age: 61 years Sex: Female : 1960 Associated Diagnoses: None Author: CHICA RAZA MD-[facility] Subjective Chief complaint. 04/17/22 awake weak no fever Health Status Allergies: [...] EPINEPHrine: 1 mg, IntraMuscular, On-CALL, PRN: Anaphylaxis Senokot: 8.6 mg, Oral, Daily, PRN: Constipation Tylenol: 650 mg, Oral, Q6H, PRN: Temperature Zofran: 4 mg, IV Push, Q6H, PRN: Nausea Zyvox: 600 mg, 300 mL, 300 mL/Hr, IV Piggyback, [id number] calcium gluconate: 1 Gram, 100 mL, 100 [...] 500 mg, 16.67 mL/Hr, IV Piggyback, Q8HInt Documented Medications Documented DuoNeb 0.5 mg-2.5 mg/3 [...] 1 Tab, Oral, At Bedtime , Medications (24) Active Scheduled: (10) docusate sodium 100 mg cap 100 mg [...] *PREMIX* 600 mg 300 mL, IV Piggyback, [id number] meropenem + NaCl 0.9% 50 mL 500 mg, IV Piggyback, Q8HInt miconazole nitrate 2% pwd 85 g 1 Application, Topical, BID Continuous: (0) PRN: (14) acetaminophen 325 mg tab 650 [...] History of obstructive sleep apnea / IMO [id number] / Confirmed Diabetes / SNOMED CT [id number] / Confirmed, Active Problems (6) Chronic kidney disease (CKD), stage III (moderate) Diabetes History of obstructive sleep apnea Hyperlipidemia Hypertension Paraplegia Objective VS/Measurements Vitals Signs (last 24 hrs) Last Charted Minimum Maximum Temp 98.8 (APR 17 14:04) 98.8 (APR 17 14:04) 99.4 (APR 16 20:59) Mon HR 100 (APR 17:04) 60 (APR 17 09:30) 107 (APR 17 11:00) Resp Rate 16 (APR 17:30) 16 (APR 16 20:59) 19 (APR 17:54) SBP 139 (APR 17:04) 128 (APR 17 01:54) H 155 (APR 17:00) DBP 78 (APR 17:) 67 (APR 17:30) 80 (APR 17 11:00) MAP 91 (APR 17 14:04) 85 (APR 17 01:54) 113 (APR 17 05:21) SpO2 95 (APR 17:30) 95 (APR 17:30) 99 (APR 17:54) General: Alert and oriented, No acute distress. Eye: Pupils are equal, round and reactive to light, Normal conjunctiva. HENT: Normocephalic, Normal hearing. Neck: Supple. Respiratory: Respirations are non-labored, Breath sounds are equal. Cardiovascular: Normal rate. Gastrointestinal: Soft, Non-tender. Integumentary: Warm. Neurologic: Alert, Oriented. Psychiatric: Cooperative, Appropriate mood & affect. Results Review APR 17 05:30 140 107 22 / 90 4.0 28 H 1.50 \ APR 17 05:30 \ L 7.0 / 5.3 L 99 / L 21.8 \ APR 17 05:30 140 107 22 / 90 4.0 28 H 1.50 \ APR 17 05:30 \ L 7.0 / 5.3 L 99 / L 21.8 \ Impression and Plan #Severe septic shock [...] may start imodium if no improvement Disposition: waiting for placement Expected d/c date - possibly in next 2-3 days i time spent 45 min documented in this encounter Plan of Treatment Not on file documented as of this encounter Visit Diagnoses Not on filedocumented in this encounter
--- OUTSIDE RECORDS SUMMARY | 2025-02-21 13:38 | XMS_ITS | Encounter Summary ---
Author Organization [employer] Address [address] [place] [address] Care Team Providers Care Equipment Coordinator Name Role Phone Unavailable Primary Care Provider Unavailabl e Encounter Details Date Type Department Care Team (Late st Contact Info) Description 03/18/2022 Transcribed Document [facility] [place] Family Medicine [place] [address] ProviderFlorentino MD [address] [place] [address] Social History Tobacco Use Types Packs/Day Years Used Date Smoking Tobacco: Never Assessed Comments Unknown Sex and Gender Information Value Date Recorded Sex Assigned at Not on file Legal Sex Female 1:44 PM CDT Gender Identity Not on file Sexual Orientation Not on file documented as of this encounter Miscellaneous Notes * Cerner Conversion Note - Florentino Lynne MD - 03/18/2022 3:00 AM CDT Nutrition Assessment Entered On: 03/18/2022 9:16 EDT Performed On: 03/18/2022 9:16 EDT by Sujatha Villanueva Dietitian Nutrition Assessment Nutrition Assessment Reason : Follow Up Sujatha Villanueva Dietitian - 03/18/2022 9:16 EDT Current Nutrition Regimen Comment : 03/18: High f/u. Pt remains medically cleared for discharge and is pending rehab placement. She is currently on room air and continues on a 60g CHO diet with ONS. Pt is consuming 71% of meals on avg x 6. Wound care is following and pt still has NPWT to L-hip. 03/13: High f/u. Pt had a FEES on 03/11 and [employer] cleared pt for PO intake. She is now on a 60g CHO diet and consumed 50% x 1 meal. Corpak has been removed. Renal following with no plans for dialysis at this time. She remains on IV abx and is pending rehab placement. During visit, pt reported that she's eating so-so . She likes Glucerna shakes and would like them sent to her- RD to order. Pt did not have any nutrition education questions at this time. Dx: cardiopulmonary arrest, acute respiratory failure, sepsis/septic shock, ARF PMH: paraplegia, hyperlipidemia, DM, Labs: Glu 142, BUN 43, Cr 1.5, GFR 35, FSB/138/131 Meds: abx, docusate, Pepcid, iron, lantus, SSI, fish oil, senna Diet: 60g CHO + Glucerna and Prasanth BID Intakes: 71% x 6 meals GI: +BS, LBM 03/17 Skin: stg 3 PU to L hip + NPWT Ht: 64 in Wt: 207#/94.2 kg (admit), no new wt (02/27), 91.5 kg (03/03), 94.2 kg (03/06), 93.5kg (03/10), 77.8kg (03/13) *wt discrepancy noted, will monitor, 198#/90.2kg (03/17) IBW (adjusted for paraplegia): 50.4 kg (186%) BMI (inaccurate due to paraplegia): 35.6 Est Needs: 5528-4527 kcals (11-14 kcals/kg), ~100 g pro (>2 g pro/kg IBW) Sujatha Villanueva Dietitian - 03/18/2022 12:33 EDT Nutrition Diagnoses Oral or Nutrition Support Intake : Inadequate oral intake Oral or Nutr Support Intake Related To : intubated Oral or Nutr Support Intake Evidenced by : NPO; need for EN Oral or Nutrition Support Intake Status : Resolved Nutrient Intake : Increased nutrient needs Nutrient Intake Related to : wound Nutrient Intake As Evidenced by : stg 3 PU to L hip +NPWT Nutrient Intake Status : Active Increased Nutrient Needs Comment : protein Functional : Altered GI function Functional Related to : dysphagia Functional As Evidenced by : need for EN Functional Diagnoses Status : Resolved Sujatha Villanueva Dietitian - 03/18/2022 12:33 EDT Nutrition Interventions Meals and Snacks : Carbohydrate-modified diet Nutrition Supplement Therapy : Commercial beverage Sujatha Villanueva Dietitian - 03/18/2022 12:33 EDT Monitoring/Evaluation Food Intake : Amount of food Weight Status : Weight Maintanence Gastrointestinal Function : Bowel Function Integumentary : Pressure Ulcer Status Sujatha Villanueva Dietitian - 03/18/2022 12:33 EDT Nutrition Recommendations Dietitian Recommendations : 1. Continue 60g CHO diet as tolerated + Glucerna shakes and Prasanth BID for added nutrient support and promote wound healing. Goal: safe swallow, intakes > 50% 3. Monitor e-lytes, replace prn Goal: WNLs 4. Monitor FSBS, adjust insulin prn Goal: glucose 140-180 5. Monitor wt 1x/week Goal: no significant wt loss Low nutrition risk Sujatha Villanueva Dietitian - 03/18/2022 12:33 EDT documented in this encounter Plan of Treatment Not on file documented as of this encounter Visit Diagnoses Not on filedocumented in this encounter
--- OUTSIDE RECORDS SUMMARY | 2025-02-21 13:38 | XMS_ITS | Encounter Summary ---
Author Organization [employer] Address [address] [place] [id number] Care Team Providers Care Recreation Engineer Name Role Phone Unavailable Primary Care Provider Unavailabl e Encounter Details Date Type Department Care Team (Late st Contact Info) Description 04/17/2022 Transcribed Document [facility] [place] [facility] [place] [address] [place] [address] ProviderFlorentino MD [address] [place] [address] Social History Tobacco Use Types Packs/Day Years Used Date Smoking Tobacco: Never Assessed Comments Unknown Sex and Gender Information Value Date Recorded Sex Assigned at Not on file Legal Sex Female 1:44 PM CDT Gender Identity Not on file Sexual Orientation Not on file documented as of this encounter Miscellaneous Notes * Cerner Conversion Note - Florentino ProviderMD - 04/17/2022 5:00 PM CDT Chart Check - Review Order Profile Entered On: 04/17/2022 17:41 EDT Performed On: 04/17/2022 17:00 EDT by Afshan Cordoba Rn-Chey Chart Check Powerplans Initiated/Discontinued as Appropriate : Yes All Active Orders Reviewed : Yes Afshan Cordoba Rn-Traveler - 04/17/2022 17:41 EDT documented in this encounter Plan of Treatment Not on file documented as of this encounter Visit Diagnoses Not on filedocumented in this encounter
--- OUTSIDE RECORDS SUMMARY | 2025-02-21 13:38 | XMS_ITS | Encounter Summary ---
Author Organization [employer] Address [address] [place] [address] Care Team Providers Care Patient Educator Name Role Phone Unavailable Primary Care Provider Unavailabl e Encounter Details Date Type Department Care Team (Late st Contact Info) Description 04/16/2022 Transcribed Document [facility] [place] [facility] [place] [address] ProviderFlorentino MD [address] [place] [address] Social History Tobacco Use Types Packs/Day Years Used Date Smoking Tobacco: Never Assessed Comments Unknown Sex and Gender Information Value Date Recorded Sex Assigned at Not on file Legal Sex Female 1:44 PM CDT Gender Identity Not on file Sexual Orientation Not on file documented as of this encounter Miscellaneous Notes * Cerner Conversion Note - Florentino Lynne MD - 04/16/2022 9:00 AM CDT [facility] Inpatient Documentation Entered On: 04/16/2022 14:30 EDT Performed On: 04/16/2022 11:45 EDT by Edwina Fraire [id number]-Zdakqstnpvz Therapy [facility]OCN Admission Date : Admit Date [...] consulted to manage NPWT. Wound care team at bedside patient on Ignacio surface. Removed dressing 1 pc black foam and clansed wound with saline wound wash, pat dry and preppered periwound skin with barrier film and draped placed medihoney gel to slough and placed 1 pc black foam and draped. NPWT is operating at 120mmHg. If any changes to skin integrity please consult wound care dept. Edwina Fraire [id number]-Adnfkronntf Therapy - 04/16/2022 14:25 EDT Electronically signed by Sumaya, [facility] Conversion Freezer Unloader Cerner at 12/21/2022 5:02 PM CDT documented in this encounter Plan of Treatment Not on file documented as of this encounter Visit Diagnoses Not on filedocumented in this encounter
--- OUTSIDE RECORDS SUMMARY | 2025-02-21 13:38 | XMS_ITS | Encounter Summary ---
Author Organization [employer] Address [address] [place] [address] Care Team Providers Care Formation Fracturing Operator Name Role Phone Unavailable Primary Care Provider Unavailabl e Encounter Details Date Type Department Care Team (Late st Contact Info) Description 04/18/2022 Transcribed Document [facility] [place] [address] [place] [address] ProviderFlorentino MD [address] [place] [address] Social History Tobacco Use Types Packs/Day Years Used Date Smoking Tobacco: Never Assessed Comments Unknown Sex and Gender Information Value Date Recorded Sex Assigned at Not on file Legal Sex Female 1:44 PM CDT Gender Identity Not on file Sexual Orientation Not on file documented as of this encounter Miscellaneous Notes * Cerner Conversion Note - Historical ProviderMD - 04/18/2022 2:00 AM CDT Granite Sandblaster Apprentice Details Entered On: 04/18/2022 2:13 EDT Performed On: 04/18/2022 2:00 EDT by Zainab Cruz RN-PATIENT CARE BEDSIDE NON-EXEMPT Order Details Transport Mode Order Detail : Bed (including specialty) Isolation Precautions Order Detail : Standard Precautions Order Detail : 0 IV Order Detail : 1 Oxygen Order Detail : 0 Nurse Collect Order Detail : 1 Lift/Transfer : Maximal assist Central Line Order Detail : Yes Room Service : Appropriate Arterial Line : Yes Patient Needs Meds Crushed/Liquid : No Zainab Cruz RN-PATIENT CARE BEDSIDE NON-EXEMPT - 04/18/2022 2:12 EDT documented in this encounter Plan of Treatment Not on file documented as of this encounter Visit Diagnoses Not on filedocumented in this encounter
--- OUTSIDE RECORDS SUMMARY | 2025-02-21 13:38 | XMS_ITS | Encounter Summary ---
Author Organization [employer] Address [address] [place] [address] Care Team Providers Care Director Of Sports Medicine Name Role Phone Unavailable Primary Care Provider Unavailabl e Encounter Details Date Type Department Care Team (Late st Contact Info) Description 05/01/2022 Transcribed Document [facility] [place] Family Medicine [address] [place] [address] ProviderFlorentino MD [address] [place] [address] Social History Tobacco Use Types Packs/Day Years Used Date Smoking Tobacco: Never Assessed Comments Unknown Sex and Gender Information Value Date Recorded Sex Assigned at Not on file Legal Sex Female 1:44 PM CDT Gender Identity Not on file Sexual Orientation Not on file documented as of this encounter Miscellaneous Notes * Cerner Conversion Note - Florentino ProviderMD - 05/01/2022 11:32 AM CDT Evaluation, Physical Therapy Entered On: 05/02/2022 12:23 EDT Performed On: 05/02/2022 12:04 EDT by JAH MCGINNIS, PT General Information, PT Visit Type, PT : Initial evaluation Onset of Problem, PT : 2022 EDT General Information Comment, PT : Pt admitted with hypotension, sepsis, recurrent UTI, acute/chronic kidney failure PMH: HTN, paraplegia, L buttock/hip wound s/p wound vac recent admit to [facility], discharged 04/26 JAH MCGINNIS, PT - 05/02/2022 12:27 EDT Patient Orders : Order Date Order Ordering 04/30/2022 11:26 Physical Therapy Eval and Treat Ordered By: MICHELLE LORA MD-INT 05/01/2022 11:32 Consult to Physical Therapy Ordered By: MICHELLE LORA MD-INT 05/01/2022 16:34 Physical Therapy Additional Tx Ordered By: BOBBY HERNANDEZ PT Active Diagnoses : 2022 02:25 Pressure ulcer of unspecified buttock, unspecified stage 2022 01:57 Chronic kidney disease, stage 3 unspecified 2022 01:56 Other symptoms and signs involving the genitourinary system 04/28/2022 12:00 Hypotension, unspecified 04/28/2022 12:00 Type 2 diabetes mellitus without complications JAH MCGINNIS, PT - 05/02/2022 12:23 EDT Therapy Diagnosis, PT : impaired mobility due to generalized weakness and fatigue; L greater trochanter wound JAH MCGINNIS, PT - 05/02/2022 12:27 EDT Admission Date : 2022 00:16 Personal Devices : Personal Devices Glasses Assistive Devices : Assistive Devices No Devices Recorded JAH MCGINNIS PT - 05/02/2022 12:23 EDT General Status Patient Received Status : Supine in bed Treatment Start Time : 05/02/2022 11:40 EDT Patient Left Status : Supine in bed, RN/PCT informed, Communication board completed, All needs met and within reach RN/PCT Informed Comment : PRIMO Cervantes advised session ok to attempt Treatment End Time : 05/02/2022 12:04 EDT Treatment Time : 24 Minute(s) Actual Treatment Time : 29 Minute(s) (Comment: Additional time spent on history, systems reviews and collaboration with nsg [JAH MCGINNIS, PT - 05/02/2022 12:27 EDT] ) JAH MCGINNIS PT - 05/02/2022 12:27 EDT History and Environment History and Environment Comment, PT : pt reports a couple months ago prior to several hospitalizations she was independent with transfers and more independent with ADLs JAH MCGINNIS, PT - 05/02/2022 14:06 EDT Living Situation, Therapy : Home Patient Lives With : Adult Child/Children Persons Assisting Patient at Home : Child/Children Persons Providing Information : Patient Home Equipment Therapy, PT : Other: ramp, hospital bed, BSC, manual w/c Home Setup : One story Ramp : Yes JAH MCGINNIS, PT - 05/02/2022 12:27 EDT Prior Level of Function PT GRID Prior LOF Bed Mobility : Assist needed Prior LOF Toileting : Assist needed Prior LOF Transfer : Assist needed Prior LOF Wheel Chair Mobility : Assist needed (Comment: can propel self short dist. independetly [JAH MCGINNIS, PT - 05/02/2022 12:27 EDT] ) JAH MCGINNIS, PT - 05/02/2022 12:27 EDT Prior LOF Assist with ADL Comment : indep. dressing, assist for bathing JAH MCGINNIS, PT - 05/02/2022 12:27 EDT Upper Extremity Right UE Active ROM : WFL Right UE Strength : WFL Left UE Active ROM : WFL Left UE Strength : WFL Right UE Strength : WFL Left UE Strength : WFL JAH MCGINNIS, PT - 05/02/2022 12:27 EDT Lower Extremity Lower Extremity Comment : hx of complete SCI with BLE paraplegia JAH MCGINNIS, PT - 05/02/2022 12:27 EDT Functional Mobility Mobility Grid Bed Scooting : Supervision/set-up (Comment: with rails and bed in trendelenberg [JAH MCGINNIS, PT - 05/02/2022 12:27 EDT] ) Supine to Sit : Rehab Moderate assistance Sit to Supine : Rehab Moderate assistance JAH MCGINNIS, PT - 05/02/2022 12:27 EDT AM PAC Basic Mobility Turning Over in Bed : A lot Sit Down On/Stand Up From Chair w/ Arms : Unable Move Back Lying to Sitting Side of Bed : A lot Moving To/From a Bed to Chair : Total Need to Walk in Hospital Room : Total Climbing 3-5 Steps with a Railing : Total AM-PAC Basic Mobility Raw Score : 8 AM-[facility] Basic Mobility CMS 0-100% Score : 86.62 % JAH MCGINNIS, PT - 05/02/2022 14:06 EDT Image 1 - Images currently included in the form version of this document have not been included in the text rendition version of the form. Gait Training/Assessment, PT Gait Assistance Level : Unable to assess/activity not appropriate JAH MCGINNIS, PT - 05/02/2022 12:27 EDT Activity Tolerance, PT Activity Tolerance, PT Activity #1 Activity : Sitting unsupported Minutes : 10 Minute(s) Comment (Comment: supevision for static sit, supervision - occasional brief min A for dynamic activities [RASJAH PAYNE, PT - 05/02/2022 12:27 EDT] ) RAS, JAH Carlyle, PT - 05/02/2022 12:27 EDT Activity Comment : Performed reaching across midline bilaterally x 15 reps and weight shifts onto elbow x 3 reps to each side RASJAH SERNA, PT - 05/02/2022 12:27 EDT Cognition Assessment, PT Orientation : Oriented x 4 Safety/Judgment Comment : intact Follows Basic Command Assessment : intact Attention Assessment : Present RAS, JAH Carlyle, PT - 05/02/2022 12:27 EDT Edu Topics Physical Therapy Education Grid Balance Training : Returns demonstration, Needs further teaching Bed Mobility Training : Returns demonstration, Needs further teaching Role of Physical Therapy : Verbalizes understanding Safety : Verbalizes understanding, Returns demonstration Therapeutic Exercises : Returns demonstration, Needs further teaching JAH MCGINNIS, PT - 05/02/2022 14:06 EDT Indication Assesessment, PT Physical Therapy Indicated : Yes PT Problem List : Impaired, activities daily living, Impaired, bed mobility, Impaired, endurance tolerance, Impaired, sitting balance, Impaired, strength, Impaired, transfers, Impaired, wheelchair mobility Potential Barriers To Therapy : Fatigue Rehabilitation Potential : Good RASJAH SERNA, PT - 05/02/2022 14:06 EDT Plan of Care, PT PT Tx Plan/Goals Established w Patient : Yes PT Frequency Rehab : Five days per week PT Duration Rehab : Fourteen days PT Treatments Planned : Balance training, Bed mobility training, Caregiver training, Neuromuscular reeducation, Safety education, Therapeutic exercises, Transfer training, Wheelchair management training JAH MCGINNIS, PT - 05/02/2022 14:06 EDT Short Term Goals Mobility/Bed Mobility STG PT Grid Goal #1 Activity : Supine to sit Assist : Assist, minimal Date to Meet : 05/09/2022 EDT Goal Status : Initial goal JAH MCGINNIS, PT - 05/02/2022 14:06 EDT Transfer STG Grid Goal #1 Destination : Chair, with arms Type : Other: sliding board if not too much pressure on wound / sit pivot Assist : Assist, maximal Date to Meet : 05/09/2022 EDT Goal Status : Intial Goal RAS JAH Carlyle, PT - 05/02/2022 14:06 EDT Cashier Wrapper Goals Mobility/Bed Mobility LTG PT Grid Goal #1 Goal #3 Activity : Supine to sit Assist : Supervision or set-up Date to Meet : 05/16/2022 EDT Goal Status : Intial Goal Comment : see below JAH MCGINNIS, PT - 05/02/2022 14:06 EDT JAH MCGINNIS, PT - 05/02/2022 14:06 EDT Transfer LTG Grid Goal #1 Destination : Wheelchair, standard Type : Other: sliding board if not too much pressure on wound / sit pivot Assist : Assist, moderate Date to Meet : 05/16/2022 EDT Goal Status : Intial Goal RASJAH SERNA, PT - 05/02/2022 14:06 EDT BalanceLTG Grid Goal #1 Activity : Sitting, dynamic Assist : Supervision or set-up Date to Meet : 05/16/2022 EDT Goal Status : Intial Goal RAS, JAH Tadeo, PT - 05/02/2022 14:06 EDT Other PT LTG Grid Goal #1 Other : Patient's L greater trochanter wound will be 100% closed and blanchable with normalized skin texture and color Date to Meet : 05/15/2022 EDT Goal Status : Initial goal RAS JAH Tadeo, PT - 05/02/2022 14:06 EDT Treatment Note Subjective Comment : Pt agreeable to session. Denies pain. Assessment : Pt is motivated and particpated very well today. Pt requires mod A for supine to/from sit and was able to maintain sitting on EOB x approx. 10 min with dynamic balance activities with min A - supervision. Pt can benefit from continued PTx during LOS and would benefit from inpatient rehab to progress toward PLOF as she was independent with transfers before multiple hospitalizations and appears to have the potential to progress back to this level. Plan for Treatment : progress as tolerated. JAH MCGINNIS, PT - 05/02/2022 14:06 EDT Pain Assessment Pain Scaled Used : 0-10 Pain scale Pain Score Pre-Intervention : 0 Pain Score During-Intervention : 0 JAH MCGINNIS, PT - 05/02/2022 14:06 EDT Image 1 - Images currently included in the form version of this document have not been included in the text rendition version of the form. Anticipated Discharge Needs, OT/PT Anticipated Discharge to : Unit, rehabilitation, Unit, [facility] Recommend Continued Therapy at Discharge : Yes JAH MCGINNIS PT - 05/02/2022 14:[address] [facility] Charg[facility] PT Ther Activities Ea 15 Min : 1 PT Eval Moderate Complexity : 1 JAH MCGINNIS, PT - 05/02/2022 14:06 EDT documented in this encounter Plan of Treatment Not on file documented as of this encounter Visit Diagnoses Not on filedocumented in this encounter
--- OUTSIDE RECORDS SUMMARY | 2025-02-21 13:38 | XMS_ITS | Encounter Summary ---
Author Organization [employer] Address [address] [place] [address] Care Team Providers Care Brusher Operator Name Role Phone Unavailable Primary Care Provider Unavailabl e Encounter Details Date Type Department Care Team (Late st Contact Info) Description 04/19/2022 Transcribed Document [facility] [place] Family Medicine [address] [place] [address] ProviderFlorentino MD [address] [place] [address] Social History Tobacco Use Types Packs/Day Years Used Date Smoking Tobacco: Never Assessed Comments Unknown Sex and Gender Information Value Date Recorded Sex Assigned at Not on file Legal Sex Female 1:44 PM CDT Gender Identity Not on file Sexual Orientation Not on file documented as of this encounter Miscellaneous Notes * Cerner Conversion Note - Historical ProviderMD - 04/19/2022 7:19 AM CDT Event Note Entered On: 04/19/2022 7:20 EDT Performed On: 04/19/2022 7:19 EDT by Linda Jack RN-PATIENT CARE BEDSIDE NON-EXEMPT Event Note Description of Event : Patient hb 6.8 Dr White called stated not fami,iar with patient allow time to pass until 0700am to call doctor on duty for this morning for orders. Linda Jack RN-PATIENT CARE BEDSIDE NON-EXEMPT - 04/19/2022 7:19 EDT documented in this encounter Plan of Treatment Not on file documented as of this encounter Visit Diagnoses Not on filedocumented in this encounter
--- OUTSIDE RECORDS SUMMARY | 2025-02-21 13:38 | XMS_ITS | Encounter Summary ---
Author Organization [employer] [facility] Address [address] [place] [address] Care Team Providers Care Port Crane Operator Name Role Phone Unavailable Primary Care Provider Unavailabl e Encounter Details Date Type Department Care Team (Late st Contact Info) Description 03/13/2022 Transcribed Document [facility] [place] Family Medicine [address] [place] [address] ProviderFlorentino MD [address] [place] [address] Social History Tobacco Use Types Packs/Day Years Used Date Smoking Tobacco: Never Assessed Comments Unknown Sex and Gender Information Value Date Recorded Sex Assigned at Not on file Legal Sex Female 1:44 PM CDT Gender Identity Not on file Sexual Orientation Not on file documented as of this encounter Miscellaneous Notes * Cerner Conversion Note - Florentino Lynne MD - 03/13/2022 2:53 PM CDT On Going Discharge Planning Entered On: 03/13/2022 14:55 EDT Performed On: 03/13/2022 14:53 EDT by EMIL GIRALDO RN - Hose StripperMarine Engine Mechanic Progress Note Discharge Arrangements : Patient [...] Rounds? : Yes EMIL GIRALDO RN - Hose Stripper - 03/13/2022 14:53 EDT Narrative Progress Note Narrative Progress Note : RRS High Day 08/11 Patient was admitted for acute respiratory failure. Hx of paraplegia, CKD3, DM2. Patient was last extubated on 03/08. Patient needs rehab at discharge and has updated referrals and expanded the referral area. Waiting for return call from [facility]. IV zosyn/doxy. Need duration. Creatinine was up slightly today. DCP: snf Historical Progress Note : CM is waiting for a return call from [place] with [facility] about possible bed offer. EMIL GIRALDO RN - Hose Stripper - 03/13/22 08:23:44 CM spoke with Matilde at [facility] and they cannot take the patient. Cm sent referrals to area snfs. EMIL GIRALDO RN - Hose Stripper - 03/12/22 09:15:18 pt transferred off unit prior to cm assessment. DCP: PT/OT re-evals pending to assist with discharge plan. Anticipate patient will need inpatient rehab. TRISTAN TAYLOR RN-Hose Stripper - 03/11/22 15:52:03 RAR High ELOS: 12 days HD#7 Covid Vaccine X2 +Booster 61 year old female with history paraplegia, CKD3, DM2, HTN; presented to [facility] with SOB, fever, chills and productive Cough X1 week. Admitted for PNA and debridement DTI to left buttock. Cardiac arrested, intubated and [place] [facility] was extubated a couple days later and reintubated the same day and extubated. She was reintubated on 03/01 after failed BiPap and transferred to [facility]. Of note patient had trach/PEG in 2009. Consults: Pulmonary, ID 03/01 Intubated 03/08 Extubated 03/01 Central Line Patient extubated on Thursday. Awake and alert, following commands. O2 sat 99% on 3 liters. RELATIONSHIP BANKER swallow eval, not safe to initiate po diet, continue corpak with TF. Renal function improving. DCP: PT/OT re-evals pending to assist with discharge plan. Anticipate patient will need inpatient rehab. Will fax referral when therapy notes available. STEFAN FERNANDEZ RN-Hose Stripper - 03/09/22 14:31:25 RAR High ELOS: 5 days HD#3 Covid Vaccine X2 +Booster 61 year old female with history paraplegia, CKD3, DM2, HTN; presented to [facility] with SOB, fever, chills and productive Cough X1 week. Admitted for PNA and debridement DTI to left buttock. Cardiac arrested, intubated and transferred [place] [facility] She was extubated a couple days later and reintubated the same day and extubated. She was reintubated on 03/01 after failed BiPap and transferred to [facility]. Of note patient had trach/PEG in 2009. Consults: Pulmonary, ID 03/01 Intubated Vent Day #5 03/01 Central Line On MV per ET AC 16/400/40%/P8, sedated with Fentanyl and Propofol, awake and following commands. Na+ trending up 149. Corpak with TF. ID plan: IV Zosyn q8. Wound Vac to left buttock. Patient lives alone in [place]. She is and has one son FREDO. Her PCP s Dr. Caebllo. Patient is ADL independent at her baseline. Only inpatient rehab stay was at [facility] at age 9. No prior home health services. She has a CPap and dated WC at home. She transports by her son or Medicaid van. DCP: CM spoke with patient's son FREDO on the phone. He and his plan to ultimately take her home to their house in [place] after hospitalization and LTACH/Rehab stay for IV abx and wound care. Patient has managed medicaid and does not have a SNF benefit. Her inpatient options at discharge will be LTACH or acute rehab versus home with home health. Early referral to [facility]. Son asked if we could assist in getting her a new WC at discharge. He will let CM know the name of her DME provider to see if she is eligible for a new one. CM will assist to get his [place] paperwork over to [place]. STEFAN FERNANDEZ RN-Hose Stripper - 03/05/22 13:34:00 EMIL GIRALDO RN - Hose Stripper - 03/13/2022 14:53 EDT Electronically signed by [facility] Conversion Recoating Machine Operator Cerner at 12/21/2022 5:11 PM CDT documented in this encounter Plan of Treatment Not on file documented as of this encounter Visit Diagnoses Not on filedocumented in this encounter
--- OUTSIDE RECORDS SUMMARY | 2025-02-21 13:38 | XMS_ITS | Encounter Summary ---
Author Organization [employer] Address [address] [place] [address] Care Team Providers Care Filing Or Registry Clerk Name Role Phone Unavailable Primary Care Provider Unavailabl e Encounter Details Date Type Department Care Team (Late st Contact Info) Description 04/10/2022 Transcribed Document [facility] [address] [place] [address] ProviderFlorentino MD [address] [place] [address] Social History Tobacco Use Types Packs/Day Years Used Date Smoking Tobacco: Never Assessed Comments Unknown Sex and Gender Information Value Date Recorded Sex Assigned at Not on file Legal Sex Female 1:44 PM CDT Gender Identity Not on file Sexual Orientation Not on file documented as of this encounter Miscellaneous Notes * Cerner Conversion Note - Florentino ProviderMD - 04/10/2022 9:57 AM CDT Clinical Dietitian Note Entered On: 04/10/2022 9:58 EDT Performed On: 04/10/2022 9:57 EDT by Sujatha Villanueva Dietitimaria elena Clinical Dietitian Note Clinical Dietitian Note : 04/10: Check on. Pt continues on CRRT this morning but IVF have been d/c'd. Pt is also off sedation this morning. Discussed pt with pulmonary. She currently has a NGT. Plans for corpak placement and will start EN today. Drips: levo @ 0.03mcg/kg/min Est nutrient needs: 0132-2522 kcals (22-25 kcal/kg), 125+g pro (1.5 g/kg) *on CRRT, wounds Recommendations: 1. Place post-pyloric corpak and initiate Nepro @ 10ml/hr. Advance to 20ml/hr as tolerated. FW per MD. Goal: utilize GI tract 2. If feasible, increase Nepro slowly to goal rate of 45ml/hr + give 3 bottles proteinex daily (1962 kcals, 125g pro). FW per MD. Goal: meet est needs 3. Monitor weight 2x weekly Goal: prevent unintentional wt changes 4. Monitor elytes and replace PRN Goal: elytes WNL High nutrition risk Sujatha Villanueva, Dietitian - 04/10/2022 9:57 EDT documented in this encounter Plan of Treatment Not on file documented as of this encounter Visit Diagnoses Not on filedocumented in this encounter
--- OUTSIDE RECORDS SUMMARY | 2025-02-21 13:38 | XMS_ITS | Encounter Summary ---
Author Organization [employer] Address [address] [place] [address] Care Team Providers Care Shed Boss Name Role Phone Unavailable Primary Care Provider Unavailabl e Encounter Details Date Type Department Care Team (Late st Contact Info) Description 04/18/2022 Transcribed Document [facility] [place] [address] [place] [address] ProviderFlorentino MD [address] [place] [address] Social History Tobacco Use Types Packs/Day Years Used Date Smoking Tobacco: Never Assessed Comments Unknown Sex and Gender Information Value Date Recorded Sex Assigned at Not on file Legal Sex Female 1:44 PM CDT Gender Identity Not on file Sexual Orientation Not on file documented as of this encounter Miscellaneous Notes * Cerner Conversion Note - Historical ProviderMD - 04/18/2022 5:00 AM CDT Chart Check - Review Order Profile Entered On: 04/18/2022 4:29 EDT Performed On: 04/18/2022 5:00 EDT by Zainab Cruz RN-PATIENT CARE BEDSIDE NON-EXEMPT Chart Check Powerplans Initiated/Discontinued as Appropriate : Yes All Active Orders Reviewed : Yes Zainab Cruz RN-PATIENT CARE BEDSIDE NON-EXEMPT - 04/18/2022 4:29 EDT documented in this encounter Plan of Treatment Not on file documented as of this encounter Visit Diagnoses Not on filedocumented in this encounter
--- OUTSIDE RECORDS SUMMARY | 2025-02-21 13:38 | XMS_ITS | Encounter Summary ---
Author Organization [employer] Address [address] [place] [address] Care Team Providers Care Yard Jockey Name Role Phone Unavailable Primary Care Provider Unavailabl e Encounter Details Date Type Department Care Team (Late st Contact Info) Description 04/09/2022 Transcribed Document [facility] Family Medicine [address] [place] [address] ProviderFlorentino MD [address], [place] [...] Conversion Note - Florentino Lynne MD - 04/09/2022 8:30 AM CDT WOCN Inpatient Documentation Entered On: 04/09/2022 11:45 EDT Performed On: 04/09/2022 8:30 EDT by Edwina Fraire [id number] Therapy WOCN Admission Date : Admit Date [...] meta WOCN Assessment Summary : Wound care tea consulted to manage NPWT. Wound care team physician at bedside patient on sport surface. Bedside nurse is present to assist with turning patient. Wound care team physician removed old dressing to left trochanter, cleansed wound bed with saline wound wash, pat dry and measured at 9.0cmx7.5cmx1.5cm draped and placed medihoney to nectrotic tissue in wound bed and 1 pc black foam and bridged to left thigh. NPWT is operating at 120mmHG. If any changes to skin integrity please consult wound care dept. Patient has laceration right labia that was POA. MASD to coccyx noted per pictures on physical chart. Edwina Fraire, [id number]-Cfyhjbdubxh Therapy - 04/09/2022 11:30 EDT documented in this encounter Plan of Treatment Not on file documented as of this encounter Visit Diagnoses Not on filedocumented in this encounter
--- OUTSIDE RECORDS SUMMARY | 2025-02-21 13:38 | XMS_ITS | Encounter Summary ---
Author Organization [employer] Address [address] [place] [address] Care Team Providers Care Finished Carpet Inspector Name Role Phone Unavailable Primary Care Provider Unavailabl e Encounter Details Date Type Department Care Team (Late st Contact Info) Description 03/18/2022 Transcribed Document [facility] [place] [address] [place] [address] ProviderFlorentino MD [address] [place] [address] Social History Tobacco Use Types Packs/Day Years Used Date Smoking Tobacco: Never Assessed Comments Unknown Sex and Gender Information Value Date Recorded Sex Assigned at Not on file Legal Sex Female 1:44 PM CDT Gender Identity Not on file Sexual Orientation Not on file documented as of this encounter Miscellaneous Notes * Cerner Conversion Note - Florentino Lynne MD - 03/18/2022 9:01 AM CDT Patient: ALYSSA AZUL Age: 61 years Sex: Female : 1960 Associated Diagnoses: None Author: MARGARETH MANRIQUEZ MD Subjective No complains, No acute events overnight. Health Status Allergies: Allergic Reactions (Selected) No [...] Normal Saline 500 mL: 50 mL/Hr, IntraVENous Normal Saline 500 mL: 50 mL/Hr, IntraVENous [...] 1 Tab, Oral, At Bedtime , Medications (42) Active Scheduled: (15) albuterol-ipratropium inh 3 mL [...] 5 mL, Oral, At Bedtime Continuous: (3) NaCl 0.9% 500 mL 500 mL, IntraVENous, 50 mL/Hr NaCl 0.9% 500 mL 500 mL, IntraVENous, [...] History of obstructive sleep apnea / IMO [id number] / Confirmed, Active Problems (6) Chronic kidney disease (CKD), stage III (moderate) Diabetes History of obstructive sleep apnea Hyperlipidemia Hypertension Paraplegia Objective VS/Measurements Measurements from flowsheet : Measurements 03/17/2022 5:00 EDT Height Source Chart Height Entry Format [place] Height/Length, BOLIVIAN (ft) 5 ft Height/Length BOLIVIAN 4 Inch CLINICALHEIGHT 162.56 cm Routine Weight Source Bed scale Routine Weight Entry Format Metric Routine Weight, Kilograms 90 kg Routine Weight Calculation 90 kg Body Mass Index (BMI), Routine 34.06 kg/m2 Body Surface Area (BSA), Routine 1.95 m2 , Vitals Signs (last 24 hrs) Last Charted Minimum Maximum Temp 98.4 (MAR 18 03:) 98.4 (MAR 18 03:) 99.1 (MAR 17 23:17) Mon HR 82 (MAR 18 05:00) 78 (MAR 18:01) 90 (MAR 17 20:45) Resp Rate 17 (MAR 18 05:00) 16 (MAR 17 10:35) H 22 (MAR 18 03:01) SBP 139 (MAR 18:) 121 (MAR 17 10:35) H 155 (MAR 17 18:00) DBP 68 (MAR 18:) 66 (MAR 17 10:35) 84 (MAR 17 18:00) MAP 101 (MAR 18 03:01) 80 (MAR 17 10:35) 101 (MAR 18 03:01) SpO2 95 (MAR 18 07:57) 94 (MAR 17 10:35) 100 (MAR 18 03:01) Intake & Output Totals Last 24 Hours (7a-7a) Intake (3 Events) Medications (15 mL) Oral Intake (240 mL) Output (0 Events) No output events found in the last 24 hours. Input Total: 255 mL Output Total: 0 mL Balance: 255 mL General: Alert and oriented, No acute distress. Eye: Extraocular movements are intact, Normal conjunctiva. HENT: Normocephalic, Normal hearing, AT. Neck: Supple, Non-tender, No jugular venous distention. Respiratory: Lungs are clear to auscultation, Symmetrical chest wall expansion. Cardiovascular: Normal rate, Trace edema. Gastrointestinal: Soft, Non-tender, Non-distended. Genitourinary: + Valenzuela. Integumentary: Warm, Dry, [place]. Neurologic: Alert, Oriented, No focal deficits. Psychiatric: Cooperative, Appropriate mood & affect. Results Review Labs (Last four charted values) WBC 7.1 (MAR 18) 6.5 (MAR 17) 6.4 (MAR 16) 6.5 (FEB 16) HB L 7.4 (MAR 18) L 7.6 (FEB 18) L 7.7 (FEB 17) L 8.0 (FEB 16) HCT L 23.7 (MAR 18) L 24.2 (FEB 18) L 24.3 (FEB 17) L 25.5 (FEB 16) Plt L 147 (MAR 18) L 135 (FEB 18) L 137 (FEB 17) L 147 (FEB 16) Na 140 (MAR 18) 141 (FEB 18) 138 (FEB 17) 138 (FEB 16) K 4.5 (MAR 18) 4.4 (FEB 18) 4.1 (FEB 17) 3.8 (FEB 16) Cl 112 (MAR 18) 111 (FEB 18) 108 (FEB 17) 106 (FEB 16) CO2 L 19 (MAR 18) 22 (FEB 18) 22 (FEB 17) 23 (FEB 16) BUN H 43 (MAR 18) H 51 (FEB 18) H 56 (MAR 16) H 53 (FEB 16) Cr H 1.50 (MAR 18) H 1.60 (FEB 18) H 1.70 (FEB 17) H 2.00 (FEB 16) Glu R H 142 (MAR 18) H 176 (FEB 18) H 133 (FEB 17) H 152 (FEB 16) Ca 9.1 (MAR 18) 9.1 (FEB 18) 9.0 (MAR 16) 9.4 (FEB 16) Lactic 0.5 (MAR 09) 0.5 (MAR 04) [...] Vancomycin level was >50 on last check. Resolved. 2- CKD 3: Baseline creatinine around 1.6. Patient follows with [facility]. 3- Sepsis 4- Hypernatremia: Resolved. 5- Anemia - Tsat 14% - on oral iron supplement. 6- Decubitus ulcer post debridement 7- Respiratory distress - Pneumonia on vent. Plan: - Continue with current. - Avoid nephrotoxic agents. - Adjust meds per renal function - Monitor H/H and transfuse for Hgb less than 7.0 High risk and complexity patient. Will see on as needed basis. Electronically signed by Bruce [employer] Conversion Lime Kiln And Recausticizing Operator Cerner at 12/21/2022 5:08 PM CDT documented in this encounter Plan of Treatment Not on file documented as of this encounter Visit Diagnoses Not on filedocumented in this encounter
--- OUTSIDE RECORDS SUMMARY | 2025-02-21 13:38 | XMS_ITS | Encounter Summary ---
Author Organization [employer] [facility] Address [address] [place] [address] Care Team Providers Care Food And Beverage Operations Manager Name Role Phone Unavailable Primary Care Provider Unavailabl e Encounter Details Date Type Department Care Team (Late st Contact Info) Description 03/18/2022 Transcribed Document [facility] [place] Family Medicine [address] [place] [address] ProviderFlorentino MD [address] [place] [address] Social History Tobacco Use Types Packs/Day Years Used Date Smoking Tobacco: Never Assessed Comments Unknown Sex and Gender Information Value Date Recorded Sex Assigned at Not on file Legal Sex Female 1:44 PM CDT Gender Identity Not on file Sexual Orientation Not on file documented as of this encounter Miscellaneous Notes * Cerner Conversion Note - Florentino Lynne MD - 03/18/2022 1:47 PM CDT On Going Discharge Planning Entered On: 03/18/2022 14:00 EDT Performed On: 03/18/2022 13:47 EDT by EMIL GIRALDO RN - Waistline JoinerRrt Progress Note Discharge Arrangements : Patient Post-Acute Information Patient Name: ALYSSA AZUL Gender: Female : 60 Age: 61 Years No Post-Acute Placement(s) Listed No Post-Acute Service(s) Listed No Curaspan Referral(s) Listed Discharge Options Discussed with Patient : Acute rehabilitation, Discharge transportation, DME, Home Health, Short term rehabilitation, Other: LTACH Barriers to Discharge Identified : Clinical Condition of Patient, No [facility] bed available Barriers to Discharge Unresolved : Clinical Condition of Patient Patient Discharge Goal : Inpatient rehabilitation facility Did you Attend Multidisciplinary Rounds? : Yes ENZO, EMIL, RN - Waistline Joiner - 03/18/2022 13:47 EDT Narrative Progress Note Narrative Progress Note : RRS High Day 16/08 Patient was admitted for respiratory failure. Hx of paraplegia, CKD3, DM2. PT is working with the patient today on transferring to a wheelchair. Probable discharge home with her son at [address] [place] [address] in [place], [place]. CM spoke with her son DJ today and he has ordered a hospital bed. CM will order a bedside commode for discharge. Pending PT eval today probable discharge home soon. DCP: Historical Progress Note : HD 16/ELOS 12/RRS high- on room air, nebs, PO Abx/wound vac to left hip, PT/OT following. DCP: followed up with Rui Lehman regarding status of prior auth, was informed that contrary to what they told staff patient had not been accepted by their facility and due to fact that she would be a Medicaid Pending patient due to her Managed Medicaid not having SNF benefits they would not be accepting patient. Pt, RN and family ([facility] [phone]) alerted that planned DC was not going to take place. Have expanded SNF search for possible acceptance. NACHO SANCHEZ, Tube Turner - 03/17/22 16:07:59 Attending physician request CM arrange fro patient transport in anticipation of dc. *PENDING PRECERT APPROVAL*, Lorraine cotto to [facility] saturday 03/17 @1600. trip # [id number]. Luisa Ramon, Real Estate Appraiser Rn - 03/16/22 15:04:55 RRS High Day 12/08 Patient was admitted for acute respiratory failure. Hx of paraplegia, CKD3, DM2. PT indicates need for rehab at discharge and Cm has a bed offer from [facility]. Patient is willing to go. will ask Rachel to start the precert. IV zosyn/doxy. Need duration. DCP: snf EMIL GIRALDO, RN - Waistline Joiner - 03/14/22 12:54:50 RRS High Day 08/11 Patient was admitted for acute respiratory failure. Hx of paraplegia, CKD3, DM2. Patient was last extubated on 03/08. Patient needs rehab at discharge and Cm has updated referrals and expanded the referral area. Waiting for return call from [facility]. IV zosyn/doxy. Need duration. Creatinine was up slightly today. DCP: snf EMIL GIRALDO RN - Waistline Joiner - 03/13/22 14:55:16 CM is waiting for a return call from Rachel with [facility] about possible bed offer. EMIL GIRALDO RN - Waistline Joiner - 03/13/22 08:23:44 BARNEY spoke with Matilde at [facility] and they cannot take the patient. Cm sent referrals to area snfs. EMIL GIRALDO RN - Waistline Joiner - 03/12/22 09:15:18 pt transferred off unit prior to assessment. DCP: PT/OT re-evals pending to assist with discharge plan. Anticipate patient will need inpatient rehab. TRISTAN TAYLOR RN-Waistline Joiner - 03/11/22 15:52:03 RAR High ELOS: 12 days HD#7 Covid Vaccine X2 +Booster 61 year old female with history paraplegia, CKD3, DM2, HTN; presented to [facility] with SOB, fever, chills and productive Cough X1 week. Admitted for PNA and debridement DTI to left buttock. Cardiac arrested, intubated and transferred to [facility]. She was extubated a couple days later and reintubated the same day and extubated. She was reintubated on 03/01 after failed BiPap and transferred to [facility]. Of note patient had trach/PEG in 2009. Consults: Pulmonary, ID 03/01 Intubated 03/08 Extubated 03/01 Central Line Patient extubated on Thursday. Awake and alert, following commands. O2 sat 99% on 3 liters. JOURNEYMAN POWER PLANT OPERATOR swallow eval, not safe to initiate po diet, continue corpak with TF. Renal function improving. DCP: PT/OT re-evals pending to assist with discharge plan. Anticipate patient will need inpatient rehab. Will fax referral when therapy notes available. STEFAN FERNANDEZ RN-Waistline Joiner - 03/09/22 14:31:25 RAR High ELOS: 5 days HD#3 Covid Vaccine X2 +Booster 61 year old female with history paraplegia, CKD3, DM2, HTN; presented to [facility] with SOB, fever, chills and productive Cough X1 week. Admitted for PNA and debridement DTI to left buttock. Cardiac arrested, intubated and transferred to [facility]. She was extubated a couple days later and reintubated the same day and extubated. She was reintubated on 03/01 after failed BiPap and transferred to [facility]. Of note patient had trach/PEG in 2009. Consults: Pulmonary, ID / Intubated Vent Day #5 03/01 Central Line On MV per ET AC 16/400/40%/P8, sedated with Fentanyl and Propofol, awake and following commands. Na+ trending up 149. Corpak with TF. ID plan: IV Zosyn q8. Wound Vac to left buttock. Patient lives alone in [place]. She is and has one son FREDO. Her PCP s Dr. Cabello. Patient is ADL independent at her baseline. Only inpatient rehab stay was at [facility] at age 9. No prior home health services. She has a CPap and dated WC at home. She transports by her son or Medicaid van. DCP: CM spoke with patient's son FREDO on the phone. He and his plan to ultimately take her home to their house in [place] after hospitalization and LTACH/Rehab stay for IV abx and wound care. Patient has managed medicaid and does not have a SNF benefit. Her inpatient options at discharge will be LTACH or acute rehab versus home with home health. Early referral to [facility]. Son asked if we could assist in getting her a new WC at discharge. He will let CM know the name of her DME provider to see if she is eligible for a new one. CM will assist to get his [place] paperwork over to [facility] office. STEFAN FERNANDEZ, RN-Waistline Joiner - 03/05/22 13:34:00 EMIL GIRALDO, RN - Waistline Joiner - 03/18/2022 13:47 EDT Electronically signed by [facility] Conversion Theatre Arts Professor Cerner at 12/21/2022 5:09 PM CDT documented in this encounter Plan of Treatment Not on file documented as of this encounter Visit Diagnoses Not on filedocumented in this encounter
--- OUTSIDE RECORDS SUMMARY | 2025-02-21 13:38 | XMS_ITS | Encounter Summary ---
Author Organization [employer] Address [address] [place] [address] Care Team Providers Care Forest Biometrics Professor Name Role Phone Unavailable Primary Care Provider Unavailabl e Encounter Details Date Type Department Care Team (Late st Contact Info) Description 04/18/2022 Transcribed Document [facility] [place] [address] [place] [address] ProviderFlorentino MD [address] [place] [address] Social History Tobacco Use Types Packs/Day Years Used Date Smoking Tobacco: Never Assessed Comments Unknown Sex and Gender Information Value Date Recorded Sex Assigned at Not on file Legal Sex Female 1:44 PM CDT Gender Identity Not on file Sexual Orientation Not on file documented as of this encounter Miscellaneous Notes * Cerner Conversion Note - Florentino Lynne MD - 04/18/2022 9:48 AM CDT UM Authorization Entered On: 04/18/2022 9:54 EDT Performed On: 04/18/2022 9:48 EDT by SHILPI MORRELL RN Primary Insurance Authorization Authorization and Policy Numbers : Insurance 1 Health Plan: [facility] Policy Number: [id number] Authorization Number: Insurance Primary Name : [facility] - [id number] Authorization Status-Primary : Admit approved Reference Number-Primary : [id number] Number of Days Authorized-Primary : 13 Day(s) Authorized Service Begin Date-Primary : 04/08/2022 EDT Authorized Service End Date-Primary : 04/21/2022 EDT Authorization Comments-Primary : CALL RECEIVED RUDDY KAY /francheska REES MESSAGE LEFT STATING THAT PT IS NO LONGER AN [employer] MEMBER EFFECTIVE 03/29/2022, THEREFOR THE APPROVAL GRANTED HAS BEEN RESENDED. NINA KAY PT IS NOW STRAIGHT MEDICAID. Historical Authorization Comments-Primary : Comment 1: Rec faxed outcome of p2p scanned it to denials 2021 file and placed in tray on JJs desk (SHERIF LYNCH, Sorting Machine Attendant 04/16/2022 09:42) Comment 2: Per fax received 04/16 @ 0914am approved after p2p completed. Approved 04/08-04/21 NRD 04/22 (SARAH MORALES RN 04/16/2022 09:32) Comment 3: CLINICAL UPDATE FAXED VIA [employer] 04/11-04/15 (Shilpi Morrell RN 04/15/2022 16:00) Comment 4: Per call to [facility] p2p line Luisa stated p2p took place yes04/14 and denial was OT/approved. Luisa did not have any idea regarding when c/s would be due. VM left for lighting fixture installer Sharon. (SARAH MORALES RN 04/15/2022 12:15) Comment 5: Per Dr Perez she is agreeable to attempt p2p on Saturday 04/14. Called Logan back and he scheduled for thursday @ 2pm with Dr William calling Dr Cabello. (SARAH MORALES RN 04/11/2022 11:09) Comment 6: Per Katie she did not receive a call to complete this p2p. Called back in & per Orville he can reschedule with a physician. Informed him that I would need to reach out to a diff physician as the one from yesterday is off service now. He stated I can call back in and reschedule. (SARAH MORALES RN 04/11/2022 10:30) Comment 7: Katie agreed to attempt p2p. Scheduled for 04/[address] William calling Katie (SARAH MORALES RN 04/09/2022 15:26) Comment 8: Message sent to Katie for p2p. She has agreed to attempt. (SARAH MORALES RN 04/09/2022 13:02) Comment 9: PER [employer] IP AUTH PENDED. CLINICAL FAXED VIA [employer] (Digna Kidd Rn-Utilization Review 04/09/2022 11:31) Comment 10: Denied per fax 04/08/22 @ 0759 no resoning noted. Placed in Denials 2021 folder. (Mallory Sanchez, Sourcing Manager 04/09/2022 09:43) SHILPI MORRELL RN - 04/18/2022 9:48 EDT Electronically signed by [facility] Conversion Brick And Tile Making Machine Operator Cerner at 12/21/2022 5:09 PM CDT documented in this encounter Plan of Treatment Not on file documented as of this encounter Visit Diagnoses Not on filedocumented in this encounter
--- OUTSIDE RECORDS SUMMARY | 2025-02-21 13:38 | XMS_ITS | Encounter Summary ---
Author Organization [employer] Address [address] [place] [address] Care Team Providers Care Dry Clipper Tender Name Role Phone Unavailable Primary Care Provider Unavailabl e Encounter Details Date Type Department Care Team (Late st Contact Info) Description 03/18/2022 Transcribed Document [facility] [address] [place] [address] ProviderFlorentino MD [address] [place] [address] Social History Tobacco Use Types Packs/Day Years Used Date Smoking Tobacco: Never Assessed Comments Unknown Sex and Gender Information Value Date Recorded Sex Assigned at Not on file Legal Sex Female 1:44 PM CDT Gender Identity Not on file Sexual Orientation Not on file documented as of this encounter Miscellaneous Notes * Cerner Conversion Note - Florentino ProviderMD - 03/18/2022 8:12 PM CDT Patient: ALYSSA AZUL Age: 61 Years Sex: Female : 1960 Subjective Pt has no current complaints, anticipates discharge from the hospital. BP is running higher, BP meds had not yet been restarted. Cr 1.6 today. Vital Signs T: 37.3 ??C TMIN: 36.9 ??C TMAX: 37.3 ??C HR: 79(Monitored) RR: 16 BP: 171/93 SpO2: 95% Oxygen Settings (Last) Oxygen Therapy Mode: Room air (03/18/22 19:15:00) Oxygen Flow Rate: 2 Liter/Min (03/14/22 08:47:00) Intake & Output Totals Last 24 Hours (7a-7a) Input Total: 255 mL Output Total: 0 mL Balance: 255 mL Physical Exam General: Alert, obese, no acute distress Neurologic: Moves upper extremities spontaneously, oriented X3, paraplegia Lungs: Clear to auscultation, non-labored respiration, sat'ing well on RA Heart: Normal rate, regular rhythm, no murmur, no edema Abdomen: Soft, non-tender, non-distended, normal bowel sounds Genitourinary: + Valenzuela Musculoskeletal: No obvious deformity Skin: warm, dry, [...] bronchoscopy 03/04 Continuing nasal cannula, BiPAP as needed, doing well on RA #Severe sepsis (POA) secondary to bilateral lower lobe pneumonia Reportedly required Levophed for short time at OSH prior to arriving to our facility Sputum culture + Klebsiella pneumonia PCR + MSSA ID following: cont doxycyline and augmentin for 2 weeks #Acute (resolved) on chronic kidney disease III, resolved Etiology prerenal azotemia/ATN due to severe sepsis/cardiac arrest Baseline creatinine around 1.6, back at baseline Nephrology following #Decubitus wounds, POA S/p debridement x3 at OSH, now with large open wound Continue wound care Wound VAC in place #Cardiac arrest At OSH on 02/21 #Acute on chronic anemia Monitor Hgb #Hypernatremia???resolved #Hypertensive urgency--resolved #Chronic medical conditions ??? Paraplegia: Continue PT/OT, Has Chronic Valenzuela --HTN:Continue Bisoprolol, holding Lisinopril ??? Diabetes: Glargine 28 units daily, SSI --HLD: Continue Pravastatin Disposition: Difficulty finding placement. Considered DC'ing home, per CM son ordered a hospital bed. But per PT note today pt would benefit from skilled PT. Will need to discuss on MDR's tomorrow if pt is safe to DC home. VTE Prophylaxis - Medical Heparin 5,000 Units, SubCutaneous, Inj, Q8H, Routine, Start 03/01/22 22:00:00 EDT, 03/01/22 19:01:00 EDT (DIANA GENI A) Sequential Compression Device Start: 03/01/22 19:03:00 EDT, Bilateral, Length: Knee High, While patient is in bed, [facility] Sequential Compression Device Start: 03/01/22 18:51:00 EDT, Bilateral, Length: Knee High, While patient is in bed, Continuous Order [facility]) Medications acetaminophen, 650 mg= 2 Tab, Oral, Q6H, PRN Augmentin 500 mg-125 mg oral tablet, 500 mg= 1 Tab, Oral, BID bisoprolol, 5 mg= 1 Tab, Oral, 1-Time calcium gluconate, 1 Gram= 100 mL, IV [...] 5% in Water intravenous solution 250 mL Normal Saline 500 mL, 500 mL, IntraVENous Normal Saline 500 mL, 500 mL, IntraVENous Pepcid, 20 mg= 1 Tab, Oral, At [...] mg= 2 mL, IV Push, Q6H, PRN Lab Results Test Name Test Result Date/Time Sodium Level 140 mmol/L 03/18/2022 06:30 EDT Potassium Level 4.5 mmol/L 03/18/2022 06:30 EDT Chloride Level 112 mmol/L 03/18/2022 06:30 EDT Carbon Dioxide Level 19 mmol/L (Low) 03/18/2022 06:30 EDT Anion Gap 14 03/18/2022 06:30 EDT Glucose Level 142 mg/dL (High) 03/18/2022 06:30 EDT Blood Urea Nitrogen 43 mg/dL (High) 03/18/2022 06:30 EDT Creatinine Level 1.50 mg/dL (High) 03/18/2022 06:30 EDT eGFR 43 mL/min/1.73m2 (Low) 03/18/2022 06:30 EDT eGFR NonAfrican 35 mL/min/1.73m2 (Low) 03/18/2022 06:30 EDT Bun/Creatinine 28.7 (High) 03/18/2022 06:30 EDT Calcium Level 9.1 mg/dL 03/18/2022 06:30 EDT Device Comment 1 Notified Nurse RBV 03/18/2022 16:02 EDT Device Comment 1 Notified Nurse RBV 03/18/2022 11:16 EDT Device Comment 1 Notified Nurse RBV 03/18/2022 05:47 EDT Device Comment 1 Notified Nurse RBV 03/17/2022 20:15 EDT Glucose POC2 135 mg/dL (High) 03/18/2022 16:02 EDT Glucose POC2 131 mg/dL (High) 03/18/2022 11:16 EDT Glucose POC2 138 mg/dL (High) 03/18/2022 05:47 EDT Glucose POC2 131 mg/dL (High) 03/17/2022 20:15 EDT WBC 7.1 K/uL 03/18/2022 06:30 EDT RBC 2.59 Million/uL (Low) 03/18/2022 06:30 EDT Hgb 7.4 g/dL (Low) 03/18/2022 06:30 EDT Hct 23.7 % (Low) 03/18/2022 06:30 EDT MCV 91.5 fL 03/18/2022 06:30 EDT MCH 28.6 pg 03/18/2022 06:30 EDT MCHC 31.2 Gram/dL (Low) 03/18/2022 06:30 EDT Platelet Count 147 K/uL (Low) 03/18/2022 06:30 EDT MPV 11.4 fL 03/18/2022 06:30 EDT RDW 16.3 % (High) 03/18/2022 06:30 EDT Neutrophil Percent Man 64 % 03/18/2022 06:30 EDT Lymph Percent Man 22 % (Low) 03/18/2022 06:30 EDT [place] Percent Man 4 % 03/18/2022 06:30 EDT Eos Percent Man 7 % (High) 03/18/2022 06:30 EDT Baso Percent Man 0 % 03/18/2022 06:30 EDT [place] Percent Man 3 % (High) 03/18/2022 06:30 EDT RBC Morphology Abnormal 03/18/2022 06:30 EDT Anisocytosis 1+ (Abnormal) 03/18/2022 06:30 EDT Poikilocytosis 1+ (Abnormal) 03/18/2022 06:30 EDT Ovalocytes 1+ (Abnormal) 03/18/2022 06:[address] Estimate Decreased (Abnormal) 03/18/2022 06:30 EDT documented in this encounter Plan of Treatment Not on file documented as of this encounter Visit Diagnoses Not on filedocumented in this encounter
--- OUTSIDE RECORDS SUMMARY | 2025-02-21 13:38 | XMS_ITS | Encounter Summary ---
Author Organization [employer] Address [address] [place] [address] Care Team Providers Care Furrier Shop Supervisor Name Role Phone Unavailable Primary Care Provider Unavailabl e Encounter Details Date Type Department Care Team (Late st Contact Info) Description 04/17/2022 Transcribed Document [facility] [place] Family Medicine [facility] [place] [address] ProviderFlorentino MD [facility] [place] [address] Social History Tobacco Use Types Packs/Day Years Used Date Smoking Tobacco: Never Assessed Comments Unknown Sex and Gender Information Value Date Recorded Sex Assigned at Not on file Legal Sex Female 1:44 PM CDT Gender Identity Not on file Sexual Orientation Not on file documented as of this encounter Miscellaneous Notes * Cerner Conversion Note - Florentino Lynne MD - 04/17/2022 3:29 PM CDT DATE OF DISCHARGE: DISCHARGE DIAGNOSES: 1. Severe sepsis/septic shock. 2. Infected decubitus ulcer. 3. Urinary tract infection. 4. Acute hypoxic respiratory failure. 5. Acute renal failure. 6. History of chronic kidney disease. 7. Hypertension. 8. Altered mental status/acute encephalopathy. 9. Pancreatitis. 10. Chronic hydronephrosis. 11. Left gluteal decubitus ulcer. 12. Acute on chronic anemia. 13. Bradycardia. 14. Diabetes mellitus. 15. Obesity. 16. Paraplegia. 17. Bed-bound. 18. Hypertension. DISCHARGE INSTRUCTIONS: Diet, according to [place] [employer]. Activities, as per physical therapy recommendation. Followup appointment with primary care physician in 3 to 4 days. Followup appointment with Nephrology in 1 to 2 weeks. Followup appointment with Infectious Disease in 1 to 2 weeks. DISPOSITION: group home facility. HISTORY AND HOSPITAL COURSE: This is a 61-year-old morbidly obese female with history of paraplegia, bed-bound. The patient was admitted to the hospital with severe sepsis. 1. Severe sepsis/septic shock. The patient admitted to the hospital, seen by Infectious Disease, started on IV antibiotic. The patient improving, stable. Antibiotic recommendation as per Infectious Disease. 2. Infected decubitus ulcer. The patient had culture done, started on IV antibiotic, and will be discharged on antibiotic. 3. Urinary tract infection, improving, culture done. 4. Acute renal failure. The patient with history of chronic kidney disease. Kidney function is stable. Creatinine is stable. 5. Morbid obesity. Recommend diet and exercise. 6. Hypertension, medication adjusted. 7. Bradycardia, stable and resolved. 8. Anemia of chronic disease, stable. 9. Weakness. Start physical therapy, and will go to rehab. The patient is still in the hospital, waiting for placement. Plan discussed with the patient. TIME SPENT: 45 minutes. /[id number] MD JORDY Shaikh/SANA / JORDY / MODL /[id number] documented in this encounter Plan of Treatment Not on file documented as of this encounter Visit Diagnoses Not on filedocumented in this encounter
--- OUTSIDE RECORDS SUMMARY | 2025-02-21 13:38 | XMS_ITS | Encounter Summary ---
Author Organization [employer] Address [address] [place] [address] Care Team Providers Care Fleet Service Manager Name Role Phone Unavailable Primary Care Provider Unavailabl e Encounter Details Date Type Department Care Team (Late st Contact Info) Description 04/19/2022 Transcribed Document [facility] [place] [address] [place] [address] ProviderFlorentino MD [address] [place] [address] Social History Tobacco Use Types Packs/Day Years Used Date Smoking Tobacco: Never Assessed Comments Unknown Sex and Gender Information Value Date Recorded Sex Assigned at Not on file Legal Sex Female 1:44 PM CDT Gender Identity Not on file Sexual Orientation Not on file documented as of this encounter Miscellaneous Notes * Cerner Conversion Note - Florentino Lynne MD - 04/19/2022 12:03 PM CDT Patient: ALYSSA AZUL Age: 61 years Sex: Female : 1960 Associated Diagnoses: None Author: CHICA RAZA MD-[facility] Subjective Chief complaint. 04/19/22 awake weak no fever Health Status Allergies: [...] 4 mg, IV Push, Q6H, PRN: Nausea calcium gluconate: 1 Gram, 100 mL, 100 [...] 1 Tab, Oral, At Bedtime , Medications (23) Active Scheduled: (9) docusate sodium 100 mg cap 100 mg [...] 30 mg 10 mL, Feeding Tube, Daily meropenem + NaCl 0.9% 50 mL 500 [...] History of obstructive sleep apnea / IMO [id number] / Confirmed Diabetes / SNOMED CT [id number] / Confirmed, Active Problems (6) Chronic kidney disease (CKD), stage III (moderate) Diabetes History of obstructive sleep apnea Hyperlipidemia Hypertension Paraplegia Objective VS/Measurements Vitals Signs (last 24 hrs) Last Charted Minimum Maximum Temp 97.4 (APR 19 03:05) 97.4 (APR 19 03:05) 99.2 (APR 18 14:33) Mon HR 83 (APR 19 07:23) 68 (APR 19 05:58) 102 (APR 18 20:46) Resp Rate 18 (APR 19 03:05) 18 (APR 18 14:33) 18 (APR 18 14:33) SBP 129 (APR 19 07:23) 122 (APR 18 20:46) H 162 (APR 18 14:33) DBP 78 (APR 19 07:23) 67 (APR 18 20:46) 83 (APR 18 14:33) MAP 92 (APR 19 07:23) 92 (APR 19 07:23) 127 (APR 18 14:33) SpO2 96 (APR 19 08:03) 95 (APR 18 14:33) 97 (APR 18 23:30) General: Alert and oriented, No acute distress. Eye: Pupils are equal, round and reactive to light, Normal conjunctiva. HENT: Normocephalic, Normal hearing. Neck: Supple. Respiratory: Respirations are non-labored, Breath sounds are equal. Cardiovascular: Normal rate. Gastrointestinal: Soft, Non-tender. Integumentary: Warm. Neurologic: Alert, Oriented. Psychiatric: Cooperative, Appropriate mood & affect. Results Review APR 19 05:30 140 109 21 / 74 4.4 28 H 1.20 \ APR 19 05:30 \ L 6.8 / L 3.2 L 85 / L 21.5 \ APR 19 05:30 140 109 21 / 74 4.4 28 H 1.20 \ APR 19 05:30 \ L 6.8 / L 3.2 L 85 / L 21.5 \ Impression and Plan #Severe septic shock [...] otherwise may start imodium if no improvement 1. Severe sepsis/septic shock. 2. Infected decubitus ulcer. 3. Urinary tract infection. 4. Acute hypoxic respiratory failure. 5. Acute renal failure. 6. History of chronic kidney disease. 7. Hypertension. 8. Altered mental status/acute encephalopathy. 9. Pancreatitis. 10. Chronic hydronephrosis. 11. Left gluteal decubitus ulcer. 12. Acute on chronic anemia. 13. Bradycardia. 14. Diabetes mellitus. 15. Obesity. 16. Paraplegia. 17. Bed-bound. 18. Hypertension. Anemia blood transfusion today labs in am Disposition: waiting for placement Expected d/c date - possibly in next 2-3 days i waiting for placement time spent 29 min Electronically signed by Bruce Shell Conversion Drapery And Upholstery Estimator Cerner at 12/21/2022 5:04 PM CDT documented in this encounter Plan of Treatment Not on file documented as of this encounter Visit Diagnoses Not on filedocumented in this encounter
--- OUTSIDE RECORDS SUMMARY | 2025-02-21 13:38 | XMS_ITS | Encounter Summary ---
Author Organization [employer] Address [address] [place] [address] Care Team Providers Care Excavating Contractor Name Role Phone Unavailable Primary Care Provider Unavailabl e Encounter Details Date Type Department Care Team (Late st Contact Info) Description 03/13/2022 Transcribed Document [facility] [place] Family Medicine [address] [place] [address] ProviderFlorentino MD [address] [place] [address] Social History Tobacco Use Types Packs/Day Years Used Date Smoking Tobacco: Never Assessed Comments Unknown Sex and Gender Information Value Date Recorded Sex Assigned at Not on file Legal Sex Female 1:44 PM CDT Gender Identity Not on file Sexual Orientation Not on file documented as of this encounter Miscellaneous Notes * Cerner Conversion Note - Florentino Lynne MD - 03/13/2022 8:45 PM CDT Patient: ALYSSA AZUL Age: 61 years Sex: Female : 1960 Associated Diagnoses: None Author: HIGINIO AREVALO MD-INF Antibiotics: Zosyn and doxy CC: Sacral wound Subjective: Patient with no fevers and bp stable browning processor up but HR normal and no acute changes. Objective: Vitals Signs (last 24 hrs) Last Charted Minimum Maximum Temp 98.1 (MAR 13 10:38) 97.0 (MAR 12 23:00) 98.1 (MAR 13 10:38) Mon HR 88 (MAR 13 16:28) 77 (MAR 13 06:07) 89 (MAR 13 10:38) Resp Rate 17 (MAR 13 10:38) 17 (MAR 13 10:38) 18 (MAR 12 23:00) SBP 101 (MAR 13 10:38) L 88 (MAR 13 05:58) 134 (MAR 13 03:51) DBP 61 (MAR 13 10:38) L 53 (MAR 13 05:58) 72 (MAR 13 03:51) MAP 72 (MAR 13 10:38) 64 (MAR 13 05:58) 88 (MAR 13 03:51) SpO2 94 (MAR 13 11:47) 94 (MAR 13 11:47) 100 (MAR 12 23:37) PE: General: Patient will awaken and more [...] (Last four charted values) WBC 6.8 (MAR 13) 5.3 (MAR 12) 5.0 (MAR 11) 4.8 (MAR 10) HB L 8.2 (MAR 13) L 8.3 (MAR 12) L 7.3 (MAR 12) L 8.2 (MAR 11) HCT L 26.2 (MAR 13) L 26.9 (MAR 12) L 23.6 (MAR 12) L 26.3 (MAR 11) Plt L 134 (MAR 13) L 146 (MAR 12) L 140 (MAR 11) L 131 (MAR 10) Na 138 (MAR 13) 138 (MAR 12) 140 (MAR 11) 141 (MAR 10) K 3.5 (MAR 13) 3.5 (MAR 12) 3.6 (MAR 11) L 3.3 (MAR 10) Cl 103 (MAR 13) L 101 (MAR 12) 106 (MAR 11) 108 (MAR 10) CO2 27 (MAR 13) 29 (MAR 12) 31 (MAR 11) 27 (MAR 10) BUN H 52 (MAR 13) H 49 (MAR 12) H 42 (MAR 11) H 41 (MAR 10) Cr H 2.10 (MAR 13) H 2.00 (MAR 12) H 1.80 (MAR 11) H 1.80 (MAR 10) Glu R H 179 (MAR 13) H 176 (MAR 12) H 240 (MAR 11) H 253 (MAR 10) Ca 8.7 (MAR 13) 8.9 (MAR 12) 9.1 (MAR 11) 9.0 (MAR 10) Lactic 0.5 (MAR 09) 0.5 (MAR 04) [...] kleb IMAGING: Radiology Results (Last 48 hours) [id number] -- 03/01/2022 17:45 CR Chest 1 Vw Portable (03/12/2022 06:55) [...] soft tissue: Status post I&D x3 at [facility] with large open wound. -Acute hypoxic respiratory failure now extubated -Aspiration pneumonia - Cardiac arrest at outside hospital prior to transfer - CKD browning processor at 1.8 - Anemia - paraplegia - Obesity - DM2 RECOMMENDATIONS/PLANS: - continue doxy - Continue Zosyn and is renally dosed switch to po abx soon - looking for placement. documented in this encounter Plan of Treatment Not on file documented as of this encounter Visit Diagnoses Not on filedocumented in this encounter
--- OUTSIDE RECORDS SUMMARY | 2025-02-21 13:38 | XMS_ITS | Encounter Summary ---
Author Organization [employer] Address [address] [place] [address] Care Team Providers Care Crisis Clinician Name Role Phone Unavailable Primary Care Provider Unavailabl e Encounter Details Date Type Department Care Team (Late st Contact Info) Description 03/18/2022 Transcribed Document [facility] [place] Family Medicine [address] [place] [address] ProviderFlorentino MD [address] [place] [address] Social History Tobacco Use Types Packs/Day Years Used Date Smoking Tobacco: Never Assessed Comments Unknown Sex and Gender Information Value Date Recorded Sex Assigned at Not on file Legal Sex Female 1:44 PM CDT Gender Identity Not on file Sexual Orientation Not on file documented as of this encounter Miscellaneous Notes * Cerner Conversion Note - Florentino Lynne MD - 03/18/2022 10:41 AM CDT Patient: ALYSSA AZUL Age: 61 years Sex: Female : 1960 Associated Diagnoses: None Author: HIGINIO AREVALO MD-INF Antibiotics: augmentin and doxy CC: Sacral wound Subjective: Patient without acute changes with no fevers and HD stable. Objective: Vitals Signs (last 24 hrs) Last Charted Minimum Maximum Temp 98.4 (MAR 18 03:01) 98.4 (MAR 18 03:01) 99.1 (MAR 17 23:17) Mon HR 82 (MAR 18 05:00) 78 (MAR 18 03:01) 90 (MAR 17 20:45) Resp Rate 17 (MAR 18 05:00) 16 (MAR 17 23:17) H 22 (MAR 18 03:01) SBP 139 (MAR 18 03:01) 139 (MAR 18 03:01) H 155 (MAR 17 18:00) DBP 68 (MAR 18 03:01) 68 (MAR 18 03:01) 84 (MAR 17 18:00) MAP 101 (MAR 18 03:01) 96 (MAR 17 23:17) 101 (MAR 18 03:01) SpO2 95 (MAR 18 07:57) 94 (MAR 17 20:45) 100 (MAR 18 03:01) PE: General: Patient will awaken and more [...] LABS: Labs (Last four charted values) WBC 7.1 (MAR 18) 6.5 (MAR 17) 6.4 (MAR 16) 6.5 (MAR 15) HB L 7.4 (MAR 18) L 7.6 (MAR 17) L 7.7 (MAR 16) L 8.0 (MAR 15) HCT L 23.7 (MAR 18) L 24.2 (FEB 18) L 24.3 (FEB 17) L 25.5 (FEB 16) Plt L 147 (MAR 18) L 135 (MAR 17) L 137 (FEB 17) L 147 (FEB [...] 18) H 51 (FEB 18) H 56 (FEB 17) H 53 (FEB 16) Cr H 1.50 (MAR 18) H 1.60 (MAR 17) H 1.70 (MAR 16) H 2.00 (MAR 15) Glu R H 142 (MAR 18) H 176 (MAR 17) H 133 (MAR 16) H 152 (MAR 15) Ca 9.1 (MAR 18) 9.1 (MAR 17) 9.0 (MAR 16) 9.4 (MAR 15) Lactic 0.5 (MAR 09) 0.5 (MAR 04) [...] L 2.3 (MAR 09) CRP down to 1.37 MICRO: resp culture with kleb IMAGING: No Radiology Results Found IMPRESSION: - Sepsi with klebsiella pneumonia - decubitus wounds from immobility - Large left gluteal soft tissue infection, ulceration, necrosis, to level of soft tissue: Status post I&D x3 at [facility] with large open wound. -Acute hypoxic respiratory failure now extubated -Aspiration pneumonia - Cardiac arrest at outside hospital prior to transfer - CKD escrow closer at 1.8 - Anemia - paraplegia - Obesity - DM2 RECOMMENDATIONS/PLANS: - continue doxy 100 mg po bid x 2 weeks and Augmentin 500/125 mg po bid x 2 weeks -escrow closer down. - looking at d/c options complicated. at risk for recurrent infections and aspiration. documented in this encounter Plan of Treatment Not on file documented as of this encounter Visit Diagnoses Not on filedocumented in this encounter
--- OUTSIDE RECORDS SUMMARY | 2025-02-21 13:38 | XMS_ITS | Encounter Summary ---
Author Organization [employer] Address [address] [place] [address] Care Team Providers Care Housekeeping And Laundry Team Leader Name Role Phone Unavailable Primary Care Provider Unavailabl e Encounter Details Date Type Department Care Team (Late st Contact Info) Description 03/17/2022 Transcribed Document [facility] [place] Family Medicine [address] [place] [address] ProviderFlorentino MD [address] [place] [address] Social History Tobacco Use Types Packs/Day Years Used Date Smoking Tobacco: Never Assessed Comments Unknown Sex and Gender Information Value Date Recorded Sex Assigned at Not on file Legal Sex Female 1:44 PM CDT Gender Identity Not on file Sexual Orientation Not on file documented as of this encounter Miscellaneous Notes * Cerner Conversion Note - Historical ProviderMD - 03/17/2022 5:00 AM CDT Chart Check - Review Order Profile Entered On: 03/17/2022 6:28 EDT Performed On: 03/17/2022 5:00 EDT by Maddison Sepulveda Lpn Chart Check Powerplans Initiated/Discontinued as Appropriate : Yes All Active Orders Reviewed : Yes Maddison Sepulveda Lpn - 03/17/2022 6:28 EDT Electronically signed by Bruce Shell Conversion Highway Maintenance Crew Worker Cerner at 12/21/2022 4:59 PM CDT documented in this encounter Plan of Treatment Not on file documented as of this encounter Visit Diagnoses Not on filedocumented in this encounter
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
--- OUTSIDE RECORDS SUMMARY | 2025-02-21 13:38 | XMS_ITS | Encounter Summary ---
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 Role Phone Unavailable Primary Care Provider Unavailabl e Encounter Details Date Type Department Care Team (Late st Contact Info) Description 03/17/2022 Transcribed Document [facility] [place] Medicine [facility] [place] [address] ProviderFlorentino MD [address] [place] [address] Social History Tobacco Use Types Packs/Day Years Used Date Smoking Tobacco: Never Assessed Comments Unknown Sex and Gender Information Value Date Recorded Sex Assigned at Not on file Legal Sex Female 1:44 PM CDT Gender Identity Not on file Sexual Orientation Not on file documented as of this encounter Miscellaneous Notes * Cerner Conversion Note - Florentino Lynne MD - 03/17/2022 1:48 PM CDT UM Authorization Entered On: 03/17/2022 14:12 EDT Performed On: 03/17/2022 13:48 EDT by SARAH MORALES RN Primary Insurance Authorization Authorization and Policy Numbers : Insurance 1 Health Plan: [facility] Policy Number: [id number] Authorization Number: Insurance Primary Name : [facility] Policy Number: [id number] Authorization Number: Authorization Status-Primary : Partially approved Reference Number-Primary : [id number] Number of Days Authorized-Primary : 14 Day(s) Authorized Service Begin Date-Primary : 03/01/2022 EDT Authorized Service End Date-Primary : 03/15/2022 EDT Authorization Comments-Primary : Sent to Dr. Luzma friend for p2p. Historical Authorization Comments-Primary : Comment 1: Partially approved per fax 03/14/22 @ 1021. Denied continued inpatient DOS forward. Placed in Denials 2021 folder. (Mallory Sanchez, Glass Etcher 03/14/2022 10:45) Comment 2: c/s auth req faxed via [employer] 03/12-03/13 (JOSEPH GUTIERREZ, RN-UTILIZATION MANAGEMENT REVIEW NON-EXEMPT 03/13/2022 16:27) Comment 3: CLINICAL UPDATE FAXED VIA [employer] 03/05-03/10 (Sh[address]pi [address], PRIMO 03/10/2022 13:19) Comment 4: UPLOADED CLINICALS VIA [employer] AND FAXED TO [facility]/ AWAITING CALLBACK/ REFERENCE # LISTED ON FRONT PAGE. (Jelani Anne, plant health manager 03/04/2022 14:03) Comment 5: Authorized per fax 03/02/22 @ 1335. Approved DRG admission. Next reivew due 03/10. -Hannah Barronjunikenneth. (Mallory Sanchez, Glass Etcher 03/04/2022 11:20) Comment 6: Rec vm from Hannah at [facility] on 1753 line on 03/02/22 at 8:42am She is req clinical be sent in Transf VM to [facility] so she could follow up (SHERIF LYNCH, Computer Technology Teacher 03/04/2022 09:42) Comment 7: auth # per star notes, faxed clinicals via [employer] 03/01 (JOSEPH GUTIERREZ, RN-UTILIZATION MANAGEMENT REVIEW NON-EXEMPT 03/02/2022 11:28) SARAH MORALES RN - 03/17/2022 13:48 EDT documented in this encounter Plan of Treatment Not on file documented as of this encounter Visit Diagnoses Not on filedocumented in this encounter
--- OUTSIDE RECORDS SUMMARY | 2025-02-21 13:38 | XMS_ITS | Encounter Summary ---
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 Name Role Phone Unavailable Primary Care Provider Unavailabl e Encounter Details Date Type Department Care Team (Late st Contact Info) Description 04/18/2022 Transcribed Document [facility] [place] [address] [place] [address] ProviderFlorentino MD [address] [place] [address] Social History Tobacco Use Types Packs/Day Years Used Date Smoking Tobacco: Never Assessed Comments Unknown Sex and Gender Information Value Date Recorded Sex Assigned at Not on file Legal Sex Female 1:44 PM CDT Gender Identity Not on file Sexual Orientation Not on file documented as of this encounter Miscellaneous Notes * Cerner Conversion Note - Florentino Lynne MD - 04/18/2022 11:39 AM CDT Patient: ALYSSA AZUL Age: 61 years Sex: Female : 1960 Associated Diagnoses: None Author: HIGINIO AREVALO MD-INF Antibiotics: meropenem CC: Sacral wound Subjective: Patient stable on the floor without fever still with some elevated blood pressure tachycardia Objective: Vitals Signs (last 24 hrs) Last Charted Minimum Maximum Temp 98.9 (APR 18 10:07) 98.9 (APR 18 10:07) 99.7 (APR 17 17:30) Mon HR 50 (APR 18 10:07) 50 (APR 18 10:07) 100 (APR 17 14:04) Resp Rate 18 (APR 18 06:01) 16 (APR 17 14:00) 18 (APR 17 20:24) SBP 108 (APR 18 10:07) 108 (APR 18 10:07) H 148 (APR 18 02:06) DBP L 54 (APR 18 10:07) L 54 (APR 18 07:11) 81 (APR 17 21:17) MAP 69 (APR 18 10:07) 67 (APR 18 07:11) 100 (APR 18 06:01) SpO2 100 (APR 18 06:01) 95 (APR 17 14:00) 100 (APR 18 02:06) PE: General: alert, oriented x3 HEENT: sclera [...] Labs (Last four charted values) WBC 5.3 (APR 17) 5.4 (APR 16) 4.8 (APR 15) 6.0 (APR 14) HB L 7.0 (APR 17) L 7.8 (APR 16) L 7.6 (APR 15) L 7.2 (APR 14) HCT L 21.8 (APR 17) L 24.3 (APR 16) L 23.7 (APR 15) L 22.3 (APR 14) Plt L 99 (APR 17) L 106 (APR 16) L 106 (APR 15) L 104 (APR 14) Na 140 (APR 17) 137 (APR 16) 141 (APR 15) 139 (APR 14) K 4.0 (APR 17) 4.1 (APR 16) 3.9 (APR 15) L 3.2 (APR 14) Cl 107 (APR 17) 109 (MAR 17) 108 (MAR 16) 108 (MAR 15) CO2 28 (MAR 18) 28 (APR 16) 28 (APR 15) 26 (MAR 15) BUN 22 (MAR 18) H 28 (MAR 17) H 29 (MAR 16) H 32 (MAR 15) Cr H 1.50 (MAR 18) H 1.60 (APR 16) H 1.50 (APR 15) H 1.60 (APR 14) Glu R 90 (APR 17) 93 (APR 16) 106 (APR 15) H 163 (APR 14) Ca L 8.0 (APR 17) 8.4 (APR 16) 8.6 (APR 15) 8.4 (APR 14) Lactic 1.0 (APR 14) 1.7 (APR 13) 0.7 (APR 12) 0.6 (APR 10) PT 11.1 (APR 09) 10.5 (APR 08) INR 1.0 (APR 09) 1.0 (APR 08) AST 15 (APR 15) 13 (APR 14) 15 (APR 13) 20 (APR 12) ALT 16 (APR 15) 15 (MAR 15) 16 (APR 13) 18 [...] pending IMAGING: No Radiology Results Found IMPRESSION: - Septic shock with severe sepsis with respiratory and renal failure on multiple pressors -Prior large left gluteal soft tissue infection, ulceration, to level of soft tissue: -Acute hypoxic respiratory failure and Bilateral pulmonary infiltrates: Status post code with cardiopulmonary arrest- now extubated -Hypothermia - Metabolic acidosis - Acute kidney failure from sepsis - Acute encephalopathy, improved -Neutrophilic leukocytosis, improved - Anemia - Chronic paraplegia - Obesity - DM2 - Thrombocytopenia Assessment: 61-year-old chronically ill long hospitalization with [...] alert fevers resolved and 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 Platelets are stable continue on broad-spectrum coverage with improvement with Zosyn micafungin and meropenem White blood cell count down no fevers creatinine stable at 1.5 with CRP coming down we will begin de-escalation of antibiotics DC linezolid is now completed course of therapy and will need meropenem through 2022 to complete therapy Platelets decreased mildly and Zyvox has been discontinued we will continue to monitor RECOMMENDATIONS/PLANS: -Continue meropenem at current dose through 2022 to complete therapy -Looking for placement -Discussed with case management patient will remain hospital through we will reassess on Thursday if nephrology is okay with PICC line placement if creatinine continues to improve I will see again on Thursday please call if any questions over the weekend I spent greater than 35 minutes her case today with more than 50% of time in counseling/coordination of care ongoing treatment for sepsis with broad-spectrum antibiotics and discharge planning with discussion with pharmacy documented in this encounter Plan of Treatment Not on file documented as of this encounter Visit Diagnoses Not on filedocumented in this encounter
--- OUTSIDE RECORDS SUMMARY | 2025-02-21 13:38 | XMS_ITS | Encounter Summary ---
Author Organization [employer] [facility] Address [address] [place] [address] Care Team Providers Care Director Peoplesoft Name Role Phone Unavailable Primary Care Provider Unavailabl e Encounter Details Date Type Department Care Team (Late st Contact Info) Description 04/09/2022 Transcribed Document [facility] [place] [address] [place] [address] ProviderFlorentino MD [address] [place] [address] Social History Tobacco Use Types Packs/Day Years Used Date Smoking Tobacco: Never Assessed Comments Unknown Sex and Gender Information Value Date Recorded Sex Assigned at Not on file Legal Sex Female 1:44 PM CDT Gender Identity Not on file Sexual Orientation Not on file documented as of this encounter Miscellaneous Notes * Cerner Conversion Note - Florentino Lynne MD - 04/09/2022 10:47 AM CDT Patient: ALYSSA AZUL Age: 61 [...] complaints of increasing confusion and fall at care home facility. Per documentation, the patient is a [...] She was discharged from our facility to care home facility. On 04/08, pulmonary is being asked [...] on insulin gtt. Hemoglobin dropped to 6.8. ICU day: 2 Vent day:2 Central line: 04/08 Review of Systems Unable to obtain: Due to clinical condition. Health Status Allergies: Allergic Reactions (Selected) No Known Allergies, Allergies (1) Active Reaction No Known Allergies None Documented Current medications: (Selected) Inpatient Medications Ordered D5W 1,000 mL: 75 mL/Hr, IntraVENous Dextrose 50% injection: 12.5 Gram, IV Push, [...] 4K/2.5 Ca bag - GREEN 5,000 mL: 1,000 mL/Hr, Miscellaneous Phoxillum BK 4K/2.5 Ca bag - PURPLE 5,000 mL: 1,000 mL/Hr, Miscellaneous Phoxillum BK 4K/2.5 Ca bag - WHITE 5,000 mL: 1,000 mL/Hr, Miscellaneous Zyvox: 600 mg, 300 mL, 300 mL/Hr, IV Piggyback, [id number] calcium gluconate: 1 Gram, 100 mL, 100 [...] mL: 500 mg, 16.67 mL/Hr, IV Piggyback, [id number] micafungin: 100 mg, 100 mL/Hr, IV Piggyback, F61MBif phenylephrine injection 80 mg + NaCl 0.9% for drip 250 mL: TITRATE, IntraVENous potassium chloride: 10 mEq, 50 mL, 50 mL/Hr, IV Piggyback, Q30Min, PRN: Other (See Comment) propofol injection 1,000 mg + Premix Diluent for Drip 100 mL: TITRATE, IntraVENous sodium bicarbonate injection 75 mEq + Dextrose 5% in Water intravenous solution 1,000 mL: 200 mL/Hr, IntraVENous sodium phosphate + Sodium Chloride [...] Bedtime, 0 Refill(s), Medications (35) Active Scheduled: (9) #NaCl 0.9% *FLUSH* inj 10 mL 10 [...] *PREMIX* 600 mg 300 mL, IV Piggyback, Z46MGus meropenem + NaCl 0.9% 50 mL 500 mg, IV Piggyback, F23IQlr micafungin sodium 100 mg, IV Piggyback, [id number] Continuous: (11) Dextrose 5% in Water 1,000 mL 1,000 mL, IntraVENous, 75 mL/Hr [...] 5,000 mL 5,000 mL, Miscellaneous, 1,000 mL/Hr propofol 1,000 mg + Premix Diluent Titrate 100 mL 100 mL, IntraVENous sodium bicarbonate 75 mEq + Dextrose 5% in Water 1,000 mL 1,000 mL, IntraVENous, 200 mL/Hr vasopressin 40 Units [0.03 Units/min] + [...] History of obstructive sleep apnea / IMO [id number] / Confirmed Diabetes / SNOMED CT [id number] / Confirmed, Active Problems (6) Chronic kidney disease (CKD), stage III (moderate) Diabetes History of obstructive sleep apnea Hyperlipidemia Hypertension Paraplegia Physical Examination VS/Measurements Vitals Signs (last 24 hrs) Last Charted Minimum Maximum Mon HR 51 (APR 09 07:56) 39 (APR 09 03:30) 92 (APR 08 17:15) Resp Rate 20 (APR 09 07:56) 20 (APR 09 07:56) H 48 (APR 09 06:00) SBP 117 (APR 09 06:30) L 89 (APR 08 11:00) H 187 (APR 09 03:30) DBP L 58 (APR 09 06:30) L 51 (APR 09 05:00) 88 (APR 09 06:00) MAP 70 (APR 09 06:30) 47 (APR 08 11:00) 117 (APR 09 00:15) SpO2 100 (APR 09 07:56) 98 (APR 08 18:15) 100 (APR 08 11:11) General: Sedated on vent. RASS -3. Eye: Pupils are equal, round and reactive [...] Dry, Left gluteal wound vac present. Neurologic: Sedated on vent. RASS -3. Psychiatric: Unable to assess. Review / Management [...] (APR 09) L 7.8 (APR 09) Lactic C 5.0 (APR 09) C 3.5 (APR 09) C 7.0 (APR 09) C 8.7 (APR 08) PT 11.1 (APR 09) 10.5 (APR 08) [...] 5.8 L 5 H 5.40 \ APR 09 05:14 \ L 6.8 / H 14.0 190 / L 19.5 \ Blood Gases (Current Encounter/Past 24 Hours) pH Art 7.56 CRIT 04/09/2022 08:18 pCO2 Art 19.2 CRIT 04/09/2022 08:17 pO2 Art 192.0 HI 04/09/2022 08:17 HCO3 Art 17.0 LOW 04/09/2022 08:17 BE Art -4.5 LOW 04/09/2022 08:17 sO2 Art >99.1 04/09/2022 06:22 tHb Art 7.2 LOW 04/09/2022 08:17 FHHb <2.4 NA 04/09/2022 06:22 ctO2 13.2 NA 04/08/2022 18:26 FIO2 Art 40 NA 04/09/2022 06:22 Delivery Device Type Art Ventilator NA 04/09/2022 06:22 Temperature, F Art 98.6 NA 04/09/2022 06:22 Art Blood Gas (ABG) Site Arterial Line NA 04/09/2022 06:22 Acceptable Huang's Test Art Non-Applicable NA 04/09/2022 06:22 Ventilator Mode Art AC NA 04/09/2022 06:22 Tidal Volume Set Art 400.0 NA 04/09/2022 06:22 Set Rate Art 26.0 NA 04/09/2022 06:22 Respiratory Rate Art 26.0 NA 04/09/2022 06:22 CPAP/PEEP Art 5.0 NA 04/09/2022 06:22 Comment Art supine NA 04/09/2022 06:22 ABG Num of Draw Attempts 1 NA 04/09/2022 06:22 PaO2/FiO2 calculated 480 NA 04/09/2022 06:22 Radiology Results (Last 48 hours) [id number] -- 04/08/2022 07:53 CR Chest 1 Vw [...] Using Seldinger technique a 15 cm 13 [place] triplelumen temporary dialysis catheter was placed with tip positioned in theSVC. Both lumens flushed well and aspirated without resistance. Catheterwas secured to the skin with 2-0 nylon suture. Procedure was welltolerated.IMPRESSION:1. Successful placement right jugular 13 [place] triple lumen temporarydialysis catheter.2. Sonographic and fluoroscopic [...] requiring previous debridement, now with wound vac Neuro Now sedated on vent Baseline paraplegia CT head: no acute intracranial process Renal Acute kidney injury. Non oliguric type. On CRRT CKD III, baseline creatinine 1.6 per documentation Severe metabolic acidosis with elevated anion gap. Electrolyte disturbances Severe hyperkalemia, improved Lactic acidosis, improving CT abdomen: mild right hydronephrosis and hydroureter GI Acute pancreatitis. CT abdomen noted, no biliary dilation. Hyperammonemia Endocrine T2DM with hyperglycemia. Glycemic control Hematology/Oncology Leukocytosis Anemia Metformin toxicity. Acute metabolic encephalopathy. Plan Vent bundle. pt still on pressors, will defer SBT today. Current vent settings: AC 26, TV 400, PEEP 5, and FiO2 40%, ABG shows improving metabolic acidosis. Now with respiratory alkalosis. Rate decreased to 20. will repeat ABG. Sedation: Fentanyl propofol for goal RASS -2. Due to bradycardia down to 40 spoke to the nurse at the bedside and will titrate propofol down. During rounds we will decrease down to 20, fentanyl down to 60. Heart rate improved to 50. I spoke to the primary team at the bedside at this point we will hold off on cardiology consult given patient is sinus bradycardia and likely in the secondary to sedations. We will avoid Precedex. We will start patient on Serax 10 3 times daily. Hemodynamics: On levo only for MAP > 65. Check echo- EF 60% Antibiotics per ID: Zosyn, Dasha, and Merrem Pneumonia PCR negative Sputum culture pending-unable to collect Check MRSA pending Blood cultures pending Urine culture pending Nephrology following On CRRT On Bicarb gtt @200mL/hr, given worsening left-sided pleural effusion and the fact patient is positive fluid balance and the fact that bicarb more than 20 we will hold off on bicarb. Will discuss with nephrology at this point. On D5W @75mL/hr, will dc/ IVF fluid. Nutrition: Currently NPO, place corpak and start TF per dietary recs Lactulose 20gm Q8h Recheck ammonia level Monitor hemoglobin. Transfuse for hemoglobin <7.0. Recheck hemoglobin 7.3 we will repeat H&H at a later time today. Glycemic control: on insulin gtt. Glucose 140-180 mg/dL, currently off temporarily due to hypoglycemia. Prophylaxis: Pepcid, Heparin SQ AM labs and imaging Chest x-ray reviewed independently showed left-sided pleural effusion will evaluate with ultrasound at the bedside for possible thoracentesis. Currently patient is hypoglycemic, lactic acid is trending up, it is possible patient is in partially treated DKA we will continue to follow, consider resuming D5 water and insulin drip. We will continue to monitor in the ICU. Spoke to the family daughter at the bedside questions and concerns were addressed. We will hold off on tube feeds today, patient still on propofol, Levophed, critically ill with acute pancreatitis, once patient with normal lactic acid preferably off Levophed and propofol we will consider starting patient on tube feeds possibly within the next 24 hours. Addendum: At 1600 patient was evaluated again patient is less agitated, no evidence of bradycardia, no vent dyssynchrony. ABG reviewed due to respiratory alkalosis tidal volume was decreased to 450, respiratory rate decreased to 14. Bedside critical care ultrasound was done to evaluate left-sided pleural effusion showed minimal pleural effusion mostly atelectasis. Spoke to the nurse at the bedside plan of care was updated patient still on CRRT, still on Levophed low-dose. We will continue with the propofol and fentanyl today. Lactic acid trending down. Hopefully tomorrow we will proceed with spontaneous awakening trial spontaneous breathing trial. Case discussed with nurse, nurse practitioner, cytopathology technologist, during multidisciplinary round today. I have personally evaluated the patient; Obtained history, performed physical examination, reviewed laboratory studies. I have reviewed images independent of radiologist. I have actively directed the medical care, formulated diagnosis, and the plan of care. Patient requires a high complexity of decision making for assessment. 80 minutes critical care time excluding procedures. documented in this encounter Plan of Treatment Not on file documented as of this encounter Visit Diagnoses Not on filedocumented in this encounter
--- OUTSIDE RECORDS SUMMARY | 2025-02-21 13:38 | XMS_ITS | Encounter Summary ---
[facility] Address [address] [place] [id number] Care Team Providers Care Solderer Dipper Name Role Phone Unavailable Primary Care Provider Unavailabl e Encounter Details Date Type Department Care Team (Late st Contact Info) Description 04/16/2022 Transcribed Document [facility] [place] Medicine [address] [place] [address] ProviderFlorentino MD [address] [place] [address] Social History Tobacco Use Types Packs/Day Years Used Date Smoking Tobacco: Never Assessed Comments Unknown Sex and Gender Information Value Date Recorded Sex Assigned at Not on file Legal Sex Female 1:44 PM CDT Gender Identity Not on file Sexual Orientation Not on file documented as of this encounter Miscellaneous Notes * Cerner Conversion Note - Florentino Lynne MD - 04/16/2022 3:45 PM CDT On Going Discharge Planning Entered On: 04/16/2022 15:45 EDT Performed On: 04/16/2022 15:45 EDT by ERIK GALARZA Process Pumper-Neurology Tech Care Management Progress Note Discharge Arrangements : Patient Post-Acute Information Patient Name: ALYSSA AZUL Gender: Female : 60 Age: 61 Years No Post-Acute Placement(s) Listed No Post-Acute Service(s) Listed No Curaspan Referral(s) Listed Discharge Options Discussed with Patient : Home Health, intermediate Barriers to Discharge Identified : Clinical Condition of Patient Barriers to Discharge Unresolved : Clinical Condition of Patient Patient Discharge Goal : Home health care Patient Offered Choice/Affiliations Explained : Yes Is the Patient Meeting Medical Necessity : Yes Did you Attend Multidisciplinary Rounds? : Yes ERIK GALARZA, Process Pumper-Neurology Tech - 04/16/2022 15:45 EDT Narrative Progress Note Narrative Progress Note : Patient requested CM speak with her daughter in law. Cm spoke with DIN who reported patient wants to discharge home with HH and DME. She will need a BSC for sure. If possible she would like to have a new CPAP as her's is old and needs replaced. Unsure of company name but maybe [employer]. Patient has all other DME. Patient does not have a preference of HH agency but wants it to be in area and with insurance. CM will continue to follow and set up DME and HH. Historical Progress Note : home health referral made to [facility] to assist with HH placement. very few HH agencies participate with pt's insurance so wound vac may need management at wound clinic. pt may have to do outpt PT is she delines snf-swing bed-ltach. TRISTAN TAYLOR, RN-Esthetician And Manager Medical Spa - 04/15/22 12:07:49 RRS HIGH, LOS 7, ELOS 5 Bzabze-rkv-wfu-rybyapdjorvh-yxadlqbnrgyu-punvygqkr acidosis HX paraplegia since age 8 L. trochanter-- 11.0cmx6.5cmx2.0cm-current with wound vac CRRT off since 04/11-- possible catheter removal 8.16 Scrpw6npkmpxhrzx-lwmjvekqn Pt was discharged to [facility] 03.[facility]. family refuses to return to [facility] and [facility] declined to accept back. Spoke with pt and she wishes to dc home with her son. She will need HH, PT for transfers as PLOF was independent, she will need wound vac and son will provide transportation. APS following: Aimee Payne, TRISTAN TAYLOR, RN-Esthetician And Manager [employer] - 04/15/22 11:57:48 HD# 3. elos: 5. rar: high acute hypoxic resp failure. severe sepsis: shock. campos/ckd. acute pancreatitis. diabetes. paraplegia. covid 19: negative 8-9. bipap 30%/ra. zyvox/merrem/micafungin iv. wound vac: left trochanter. corpak tube feeds. PT/OT: eob. ST: cleared for diet. no dialysis. APS following: Aimee Payne [phone]. left message with updates. dcp: family decline return to [place]. new referral [facility]. sent [facility]. spoke with bessie granda coordintor. they hope she will improve to dc home with them in [place]. FREDO, son, legal next of kin: [phone] Divine, daughter in law: [phone] SHERIF PAYNE, RN-Esthetician And Manager [employer] - 04/14/22 10:45:05 HD# 3. elos: 5. rar: high acute hypoxic resp failure. severe sepsis: shock. campos/ckd. acute pancreatitis. diabetes. paraplegia. covid 19: negative 8-9. extubated 8-11. 02 4L nc. crrt. levophed gtt. bicarb gtt. zyvox/merrem/micafungin iv. wound vac: left trochanter. APS following: Aimee Payne, . dcp: family decline return to [place]. they hope she will improve to dc home with them in [place]. not ltac candidate at this time due to crrt. FREDO, son, legal next of kin: [phone] Divine, daughter in law: [phone] SHERIF PAYNE, RN-Esthetician And Manager [employer] - 04/11/22 09:13:49 late entry for this am. Aimee Payne, aps school social worker was on site this am. she spoke with Andrés, bedside rn, interviewed pt's son and spoke with Ms. azul who was awake on ventilator. she left number for lcaudia Groves sound to call her at Yaneli's convenience. provided medical records as requested. SHERIF PAYNE, RN-Esthetician And Manager [employer] - 04/10/22 15:40:22 HD# 2. elos: 5. rar: high acute hypoxic resp failure. severe sepsis: shock. campos/ckd. acute pancreatitis. diabetes. paraplegia. covid 19: negative 8-9. following commads. mechanical ventilation. crrt. fentanyl gtt. insulin gtt. levophed gtt. evaluation Dr Abraham, metal expediter. see her notes. no vaginal laceration. return call from Gayathri Pimentel, . she contacted lorrie Cohen for [place], [facility], [facility] & [facility] with family concerns. [phone]. APS accepted case: [id number]. dcp: family decline return to [facility]. they hope she will improve to dc home with them in [place]. spoke with Monique Groves PA, sound attending. Andrés bedside RN. SHERIF PAYNE, RN-Esthetician And Manager [employer] - 04/10/22 09:41:02 received email from aps. they have accepted & will assign to school social worker. SHERIF PAYNE, RN-Esthetician And Manager [employer] - 04/09/22 15:19:44 APS reported filed. [id number]. spoke with clover Bowen rn, Amber, service unit operator oil well & Mary housekeeping department worker. SHERIF PAYNE, RN-Esthetician And Manager [employer] - 04/09/22 12:07:07 ERIK GALARZA, Process Pumper-Neurology Tech - 04/16/2022 15:45 EDT documented in this encounter Plan of Treatment Not on file documented as of this encounter Visit Diagnoses Not on filedocumented in this encounter
--- OUTSIDE RECORDS SUMMARY | 2025-02-21 13:38 | XMS_ITS | Encounter Summary ---
Author Organization [employer] [facility] Address [address] [place] [address] Care Team Providers Care Acute Care Surgeon Name Role Phone Unavailable Primary Care Provider Unavailabl e Encounter Details Date Type Department Care Team (Late st Contact Info) Description 04/17/2022 Transcribed Document [facility] [place] Family Medicine [address] [place] [address] ProviderFlorentino MD [address] [place] [address] Social History Tobacco Use Types Packs/Day Years Used Date Smoking Tobacco: Never Assessed Comments Unknown Sex and Gender Information Value Date Recorded Sex Assigned at Not on file Legal Sex Female 1:44 PM CDT Gender Identity Not on file Sexual Orientation Not on file documented as of this encounter Miscellaneous Notes * Cerner Conversion Note - Florentino Lynne MD - 04/17/2022 9:30 PM CDT Patient: ALYSSA AZUL Age: 61 years Sex: Female : 1960 Associated Diagnoses: None Author: HIGINIO AREVALO MD-INF Antibiotics: Zyvox, meropenem, CC: Sacral wound Subjective: Patient stable on the floor without fever still with some elevated blood pressure tachycardia Objective: Vitals Signs (last 24 hrs) Last Charted Minimum Maximum Temp 99.7 (APR 17 21:17) 98.8 (APR 17 14:04) 99.7 (APR 17 17:30) Mon HR 94 (APR 17 21:17) 60 (APR 17 09:30) 107 (APR 17 11:00) Resp Rate 18 (APR 17 21:17) 16 (APR 17 09:30) 19 (APR 17 01:54) SBP 134 (APR 17:17) 128 (APR 17 01:54) H 155 (APR 17 11:00) DBP 81 (APR 17:17) 67 (APR 17 09:30) 81 (APR 17:17) MAP 96 (APR 17:17) 85 (APR 17 01:54) 113 (APR 17 05:21) SpO2 99 (APR 17:) 95 (APR 17 09:30) 99 (APR 17 01:54) PE: General: alert, oriented HEENT: sclera white [...] 109 (MAR 17) 108 (MAR 16) 108 (APR 14) CO2 28 (APR 17) 28 (APR 16) 28 (APR 15) 26 (MAR 15) BUN 22 (MAR 18) H 28 (MAR 17) H 29 (MAR 16) H 32 (MAR 15) Cr H 1.50 (APR 17) H 1.60 (MAR 17) H 1.50 (APR 15) H 1.60 (APR [...] 15 (APR 15) 13 (APR 14) 15 (MAR 14) 20 (APR 12) ALT 16 (APR 15) [...] alert fevers resolved and no crrt and child care attendant stable. Platelets are stable continue on broad-spectrum coverage with improvement with Zosyn micafungin and meropenem White blood cell count down no fevers creatinine stable at 1.5 with CRP coming down we will begin de-escalation of antibiotics DC linezolid is now completed course of therapy and will need meropenem through 2022 to complete therapy RECOMMENDATIONS/PLANS: -DC linezolid -Continue meropenem at current dose through 2022 to complete therapy -Looking for placement I spent greater than 35 minutes her case today with more than 50% of time in counseling/coordination of care ongoing treatment for sepsis with broad-spectrum antibiotics and discharge planning with discussion with pharmacy documented in this encounter Plan of Treatment Not on file documented as of this encounter Visit Diagnoses Not on filedocumented in this encounter
--- OUTSIDE RECORDS SUMMARY | 2025-02-21 13:38 | XMS_ITS | Encounter Summary ---
Author Organization [email or web address] [facility] Address [address] [place] [address] Care Team Providers Care Perforator Operator Oil Well Name Role Phone Unavailable Primary Care Provider Unavailabl e Encounter Details Date Type Department Care Team (Late st Contact Info) Description 04/17/2022 Transcribed Document [facility] [place] [address] [place] [address] ProviderFlorentino MD [address] [place] [address] Social History Tobacco Use Types Packs/Day Years Used Date Smoking Tobacco: Never Assessed Comments Unknown Sex and Gender Information Value Date Recorded Sex Assigned at Not on file Legal Sex Female 1:44 PM CDT Gender Identity Not on file Sexual Orientation Not on file documented as of this encounter Miscellaneous Notes * Cerner Conversion Note - Florentino Lynne MD - 04/17/2022 2:39 PM CDT On Going Discharge Planning Entered On: 04/17/2022 14:39 EDT Performed On: 04/17/2022 14:39 EDT by ERIK GALARZA Cracking Machine Operator-Icer Air Conditioning Care Management Progress Note Discharge Arrangements : [...] Attend Multidisciplinary Rounds? : Yes ERIK GALARZA, Cracking Machine Operator-Icer Air Conditioning - 04/17/2022 14:39 EDT Narrative Progress Note Narrative Progress Note : Patient has been declined by all HH agencies. CM spoke to patient is open to [facility] however, [facility] does not have an open bed and [...] with PT. CM will continue to follow. Historical Progress Note : Patient requested CM speak with her daughter in law. Cm spoke with [facility] who reported patient wants to discharge home with HH and DME. She will need a BSC for sure. If possible she would like to have a new CPAP as her's is old and needs replaced. Unsure of company name but maybe [employer]. Patient has all other DME. Patient does not have a preference of HH agency but wants it to be in area and with insurance. CM will continue to follow and set up DME and HH. ERIK GALARZA, Cracking Machine Operator-Icer Air Conditioning - 04/16/22 15:45:27 home health referral made to [facility] to assist with HH placement. very few HH agencies participate with pt's insurance so wound vac may need management at wound clinic. pt may have to do outpt PT is she delines snf-swing bed-ltach. TRISTAN TAYLOR, RN-Factory Engineer - 04/15/22 12:07:49 RRS HIGH, LOS 7, ELOS 5 Paocth-ayx-yut-gkalmpesgbir-bolhmgpvfwge-ytowiauii acidosis HX paraplegia since age 8 L. trochanter-- 11.0cmx6.5cmx2.0cm-current with wound vac CRRT off since 04/11-- possible catheter removal 8.16 Gkulm6kfxggkujwv-azrfyghhj Pt was discharged to [facility] in 03.21. family refuses to return to [facility] and [facility] declined to accept back. Spoke with pt and she wishes to dc home with her son. She will need HH, PT for transfers as PLOF was independent, she will need wound vac and son will provide transportation. APS following: Aimee Payne, TRISTAN TAYLOR, RN-Factory Engineer - 04/15/22 11:57:48 HD# 3. elos: 5. rar: high acute hypoxic resp failure. severe sepsis: shock. campos/ckd. acute pancreatitis. diabetes. paraplegia. covid 19: negative 8-9. bipap 30%/ra. zyvox/merrem/micafungin iv. wound vac: left trochanter. corpak tube feeds. PT/OT: eob. ST: cleared for diet. no dialysis. APS following: Aimee Payne, . left message with updates. dcp: family decline return to [place]. new referral [facility]. sent [facility] [employer]. spoke with bessie granda coordintor. they hope she will improve to dc home with them in [place]. DJ, son, legal next of kin: [phone] Divine, daughter in law: [phone] SHERIF PAYNE, RN-Factory Engineer - 04/14/22 10:45:05 HD# 3. elos: 5. rar: high acute hypoxic resp failure. severe sepsis: shock. campos/ckd. acute pancreatitis. diabetes. paraplegia. covid 19: negative 8-9. extubated 8-11. 02 4L nc. crrt. levophed gtt. bicarb gtt. zyvox/merrem/micafungin iv. wound vac: left trochanter. APS following: Aimee Payne, . dcp: family decline return to [place]. they hope she will improve to dc home with them in [place]. not ltac candidate at this time due to crrt. DJ, son, legal next of kin: [phone] Divine, daughter in law: [phone] SHERIF PAYNE, RN-Factory Engineer - 04/11/22 09:13:49 late entry for this am. Aimee Payne, aps social media strategist was on site this am. she spoke with clover Bowen rn, interviewed pt's son and spoke with Ms. azul who was awake on ventilator. she left number for claudia Groves, sound to call her at Yaneli's convenience. provided medical records as requested. SHERIF PAYNE, RN-Factory Engineer - 04/10/22 15:40:22 HD# 2. elos: 5. rar: high acute hypoxic resp failure. severe sepsis: shock. campos/ckd. acute pancreatitis. diabetes. paraplegia. covid 19: negative 8-9. following commads. mechanical ventilation. crrt. fentanyl gtt. insulin gtt. levophed gtt. evaluation Dr Abraham, drapery installer. see her notes. no vaginal laceration. return call from Gayathri Pimentel, . she contacted lorrie Cohen for [place], [facility], [facility] with family concerns. [phone]. APS accepted case: [id number]. dcp: family decline return to [facility]. they hope she will improve to dc home with them in [place]. spoke with Monique Groves PA, edi attending. Andrés bedside RN. SHERIF PAYNE, RN-Factory Engineer - 04/10/22 09:41:02 [facility] & will assign to social media strategist. SHERIF PAYNE, RN-Factory Engineer - 04/09/22 15:19:44 APS reported filed. [id number]. spoke with clover Bowen rn, Amber, nurse staff community health & Mary warehouser. SHERIF PAYNE, RN-Factory Engineer - 04/09/22 12:07:07 ERIK GALARZA, Cracking Machine Operator-Icer Air Conditioning - 04/17/2022 14:39 EDT documented in this encounter Plan of Treatment Not on file documented as of this encounter Visit Diagnoses Not on filedocumented in this encounter
--- OUTSIDE RECORDS SUMMARY | 2025-02-21 13:38 | XMS_ITS | Encounter Summary ---
Author Organization [employer] Address [address] [place] [address] Care Team Providers Care Filter Assembler Name Role Phone Unavailable Primary Care Provider Unavailabl e Encounter Details Date Type Department Care Team (Late st Contact Info) Description 04/17/2022 Transcribed Document [facility] [place] [address] [place] [address] ProviderFlorentino MD [address] [place] [address] Social History Tobacco Use Types [...] Florentino ProviderMD - 04/17/2022 5:00 AM CDT Chart Check - Review Order Profile Entered On: 04/17/2022 6:42 EDT Performed On: 04/17/2022 5:00 EDT by Edda Guzman Non Emp Traveler RN Chart Check Powerplans Initiated/Discontinued as Appropriate : Yes All Active Orders Reviewed : Yes Edda Guzman Non Emp Traveler RN - 04/17/2022 6:42 EDT documented in this encounter Plan of Treatment Not on file documented as of this encounter Visit Diagnoses Not on filedocumented in this encounter
--- OUTSIDE RECORDS SUMMARY | 2025-02-21 13:38 | XMS_ITS | Encounter Summary ---
Author Organization [employer] Address [address] [place] [address] Care Team Providers Care Claims Director Name Role Phone Unavailable Primary Care Provider Unavailabl e Encounter Details Date Type Department Care Team (Late st Contact Info) Description 04/16/2022 Transcribed Document [facility] [place] [address] [place] [address] ProviderFlorentino MD [address] [place] [address] Social History Tobacco Use [...] Note - Florentino Lynne MD - 04/16/2022 12:50 PM CDT Patient: ALYSSA AZUL Age: 61 years Sex: Female : 1960 Associated Diagnoses: None Author: CHICA RAZA MD-[facility] Subjective Chief complaint. 04/16/22 awake weak no fever Health Status Allergies: [...] mg, 300 mL, 300 mL/Hr, IV Piggyback, [id number] calcium gluconate: 1 Gram, 100 mL, 100 [...] micafungin: 100 mg, 100 mL/Hr, IV Piggyback, [id number] Documented Medications Documented DuoNeb 0.5 mg-2.5 mg/3 [...] 1 Tab, Oral, At Bedtime , Medications (25) Active Scheduled: (11) docusate sodium 100 mg [...] *PREMIX* 600 mg 300 mL, IV Piggyback, [id number] meropenem + NaCl 0.9% 50 mL 500 mg, IV Piggyback, Q8HInt micafungin sodium 100 mg, IV Piggyback, [id number] miconazole nitrate 2% pwd 85 g 1 [...] History of obstructive sleep apnea / IMO [id number] / Confirmed Diabetes / SNOMED CT [id number] / Confirmed, Active Problems (6) Chronic kidney disease (CKD), stage III (moderate) Diabetes History of obstructive sleep apnea Hyperlipidemia Hypertension Paraplegia Objective VS/Measurements Vitals Signs (last 24 hrs) Last Charted Minimum Maximum Temp 98.8 (APR 16 10:20) 97.8 (APR 16 05:26) 98.8 (APR 15:29) Mon HR 96 (APR 16 10:48) 54 (APR 16 01:53) 96 (APR 16 10:48) Resp Rate 18 (APR 16 08:37) 16 (APR 15:29) 18 (APR 15:17) SBP H 157 (APR 16 10:20) 120 (APR 16 01:53) H 157 (APR 16:26) DBP 68 (APR 16 10:20) 66 (APR 16:53) 90 (APR 15:29) MAP 104 (APR 16 10:20) 81 (APR 16 01:53) 115 (APR 15:29) SpO2 96 (APR 16 10:48) 94 (APR 16 10:20) 100 (APR 15:17) General: Alert and oriented, No acute distress. Eye: Pupils are equal, round and reactive to light, Normal conjunctiva. HENT: Normocephalic, Normal hearing. Neck: Supple. Respiratory: Respirations are non-labored, Breath sounds are equal. Cardiovascular: Normal rate. Gastrointestinal: Soft, Non-tender. Integumentary: Warm. Neurologic: Alert, Oriented. Psychiatric: Cooperative, Appropriate mood & affect. Results Review APR 16 05:35 137 109 H 28 / 93 4.1 28 H 1.60 \ APR 16 05:35 \ L 7.8 / 5.4 L 106 / L 24.3 \ APR 16 05:35 137 109 H 28 / 93 4.1 28 H 1.60 \ APR 16 05:35 \ L 7.8 / 5.4 L 106 / L 24.3 \ Impression and Plan #Severe septic shock [...] in next 2-3 days i time spent 29 min documented in this encounter Plan of Treatment Not on file documented as of this encounter Visit Diagnoses Not on filedocumented in this encounter
--- OUTSIDE RECORDS SUMMARY | 2025-02-21 13:38 | XMS_ITS | Encounter Summary ---
Author Organization [employer] Address [address] [place] [address] Care Team Providers Care International Sourcing Manager Name Role Phone Unavailable Primary Care Provider Unavailabl e Encounter Details Date Type Department Care Team (Late st Contact Info) Description 05/01/2022 Transcribed Document [facility] [place] [address] [place] [address] ProviderFlorentino MD [address] [place] [address] Social History Tobacco Use Types Packs/Day Years Used Date Smoking Tobacco: Never Assessed Comments Unknown Sex and Gender Information Value Date Recorded Sex Assigned at Not on file Legal Sex Female 1:44 PM CDT Gender Identity Not on file Sexual Orientation Not on file documented as of this encounter Miscellaneous Notes * Cerner Conversion Note - Historical ProviderMD - 05/01/2022 6:35 PM CDT There's an order for a PICC. Consent prepared and taken to the patient. Patient refused to sign multiple times. She would like to discuss this with her care manager cna before allowing it. Case management also spoke with her multiple times this shift. documented in this encounter Plan of Treatment Not on file documented as of this encounter Visit Diagnoses Not on filedocumented in this encounter
--- OUTSIDE RECORDS SUMMARY | 2025-02-21 13:38 | XMS_ITS | Encounter Summary ---
Author Organization [employer] Address [address] [place] [address] Care Team Providers Care Legal Administrative Secretary Name Role Phone Unavailable Primary Care Provider Unavailabl e Encounter Details Date Type Department Care Team (Late st Contact Info) Description 04/18/2022 Transcribed Document [facility] [place] Family Medicine [facility] [place] [address] ProviderFlorentino MD [address] [place] [address] Social History Tobacco Use Types Packs/Day Years Used Date Smoking Tobacco: Never Assessed Comments Unknown Sex and Gender Information Value Date Recorded Sex Assigned at Not on file Legal Sex Female 1:44 PM CDT Gender Identity Not on file Sexual Orientation Not on file documented as of this encounter Miscellaneous Notes * Cerner Conversion Note - Florentino Lynne MD - 04/18/2022 9:00 AM CDT WOCN Inpatient Documentation Entered On: 04/18/2022 12:56 EDT Performed On: 04/18/2022 11:00 EDT by Edwina Fraire LPNOWT-GRB-Tsatsudynvx Therapy WOCN Admission Date : Admit Date [...] WOCN Assessment Summary : Wound care team consultd to manage NPWT. Wound care presentation team member removed old dressing to left trochanter and cleansed with saline wound wash, pat dry, and prepped periwound skin with barrier film and draped, placed 1 pc black foam and draped. NPWT is operating at 120mmHg. If any chnages to skin integrity please consult wound care dept. Edwina Fraire LPNMHO-VYZ-Mrmcznqmxtl Therapy - 04/18/2022 12:53 EDT documented in this encounter Plan of Treatment Not on file documented as of this encounter Visit Diagnoses Not on filedocumented in this encounter
--- OUTSIDE RECORDS SUMMARY | 2025-02-21 13:38 | XMS_ITS | Encounter Summary ---
Author Organization [employer] Address [address] [place] [address] Care Team Providers Care Pan Dumper Name Role Phone Unavailable Primary Care Provider Unavailabl e Encounter Details Date Type Department Care Team (Late st Contact Info) Description 03/12/2022 Transcribed Document [facility] [place] [address] [place] [address] ProviderFlorentino MD [address] [place] [address] Social History Tobacco Use Types Packs/Day Years Used Date Smoking Tobacco: Never Assessed Comments Unknown Sex and Gender Information Value Date Recorded Sex Assigned at Not on file Legal Sex Female 1:44 PM CDT Gender Identity Not on file Sexual Orientation Not on file documented as of this encounter Miscellaneous Notes * Cerner Conversion Note - Historical ProviderMD - 03/12/2022 5:00 AM CDT Height and Weight, Routine Entered On: 03/12/2022 6:06 EDT Performed On: 03/12/2022 5:00 EDT by Ze Holbrook Patient Family And Marriage Counsellor Gopal Height and Weight, Routine Routine Weight Source : Bed scale Routine Weight Entry Format : [place] Routine Weight, Pounds : 179 lb Routine Weight, Ounces : 1 oz Routine Weight Calculation : 81.39 kg Height Source : Chart Height Entry Format : [place] Height, Feet : 5 ft Height, Inches : 4 Inch Clinical Height : 162.56 cm Body Surface Area (BSA), Routine : 1.87 m2 Body Mass Index (BMI), Routine : 30.8 kg/m2 Ze Holbrook Patient Family And Marriage Counsellor I - 03/12/2022 6:06 EDT documented in this encounter Plan of Treatment Not on file documented as of this encounter Visit Diagnoses Not on filedocumented in this encounter
--- OUTSIDE RECORDS SUMMARY | 2025-02-21 13:38 | XMS_ITS | Encounter Summary ---
Author Organization [employer] Address [address] [place] [address] Care Team Providers Care Pilot Control Operator Name Role Phone Unavailable Primary Care Provider Unavailabl e Encounter Details Date Type Department Care Team (Late st Contact Info) Description 04/09/2022 Transcribed Document [facility] [place] Family [place] [address] [place] [address] ProviderFlorentino MD [address] [place] [address] Social History Tobacco Use Types Packs/Day Years Used Date Smoking Tobacco: Never Assessed Comments Unknown Sex and Gender Information Value Date Recorded Sex Assigned at Not on file Legal Sex Female 1:44 PM CDT Gender Identity Not on file Sexual Orientation Not on file documented as of this encounter Miscellaneous Notes * Cerner Conversion Note - Florentino ProviderMD - 04/09/2022 3:17 PM CDT On Going Discharge Planning Entered On: 04/09/2022 15:19 EDT Performed On: 04/09/2022 15:17 EDT by SHERIF PAYNE, RN-Intelligence DirectorBand Manager Progress Note Discharge Arrangements : Patient Post-Acute Information Patient Name: ALYSSA AZUL Gender: Female : [birth year] Age: 61 Years No Post-Acute Placement(s) Listed No Post-Acute Service(s) Listed No Curaspan Referral(s) Listed Discharge Options Discussed with Patient : Home Health, [facility] Patient Discharge Goal : long term facility SHERIF PAYNE, RN-Intelligence Director - 04/09/2022 15:17 EDT Narrative Progress Note Narrative Progress Note : received email from aps. they have accepted & will assign to social services counselor. Historical Progress Note : APS reported filed. [id number]. spoke with Andrés, bedside rn, Amber, community relations advisor & Mary, housekeeper cleaning cooking. SHERIF PAYNE, RN-Intelligence Director - 04/09/22 12:07:07 SHERIF PAYNE, RN-Intelligence Director - 04/09/2022 15:17 EDT Electronically signed by Bruce Shell Conversion Family And Consumer Education Teacher Cerner at 12/21/2022 5:03 PM CDT documented in this encounter Plan of Treatment Not on file documented as of this encounter Visit Diagnoses Not on filedocumented in this encounter
--- OUTSIDE RECORDS SUMMARY | 2025-02-21 13:38 | XMS_ITS | Encounter Summary ---
Author Organization [employer] Address [address] [place] [address] Care Team Providers Care Family Service Caseworker Name Role Phone Unavailable Primary Care Provider Unavailabl e Encounter Details Date Type Department Care Team (Late st Contact Info) Description 04/18/[address] [facility] [place] [address] [place] [address] ProviderFlorentino MD [address] [place] [address] Social History Tobacco Use Types Packs/Day Years Used Date Smoking Tobacco: Never Assessed Comments Unknown Sex and Gender Information Value Date Recorded Sex Assigned at Not on file Legal Sex Female 1:44 PM CDT Gender Identity Not on file Sexual Orientation Not on file documented as of this encounter Miscellaneous Notes * Cerner Conversion Note - Florentino ProviderMD - 04/18/2022 10:20 AM CDT Meds to Bed Enrollment Entered On: 04/18/2022 10:20 EDT Performed On: 04/18/2022 10:20 EDT by Stevie Naylor, OCCUPATIONAL HEALTH COORDINATOR LEAD Meds to Bed Enrollment Patient Enrollment Decision: : No/do not enroll in meds to bed program Reason for Declining Meds to Bed Program: : Discharge to facility Stevie Naylor OCCUPATIONAL HEALTH COORDINATOR LEAD - 04/18/2022 10:20 EDT documented in this encounter Plan of Treatment Not on file documented as of this encounter Visit Diagnoses Not on filedocumented in this encounter
--- OUTSIDE RECORDS SUMMARY | 2025-02-21 13:38 | XMS_ITS | Encounter Summary ---
Author Organization [employer] Address [address] [place] [address] Care Team Providers Care Four Slide Machine Operator Name Role Phone Unavailable Primary Care Provider Unavailabl e Encounter Details Date Type Department Care Team (Late st Contact Info) Description 03/13/2022 Transcribed Document [facility] [place] [address] [place] [address] ProviderFlorentino MD [address] [place] [address] Social History Tobacco Use Types Packs/Day Years Used Date Smoking Tobacco: Never Assessed Comments Unknown Sex and Gender Information Value Date Recorded Sex Assigned at Not on file Legal Sex Female 1:44 PM CDT Gender Identity Not on file Sexual Orientation Not on file documented as of this encounter Miscellaneous Notes * Cerner Conversion Note - Historical ProviderMD - 03/13/2022 5:00 AM CDT Height and Weight, Routine Entered On: 03/13/2022 7:09 EDT Performed On: 03/13/2022 5:00 EDT by Ze Holbrook Patient Debate Director Gopal Height and Weight, Routine Routine Weight Source : Bed scale Routine Weight Entry Format : [place] Routine Weight, Pounds : 171 lb Routine Weight, Ounces : 1 oz Routine Weight Calculation : 77.76 kg Height Source : Chart Height Entry Format : [place] Height, Feet : 5 ft Height, Inches : 4 Inch Clinical Height : 162.56 cm Body Surface Area (BSA), Routine : 1.83 m2 Body Mass Index (BMI), Routine : 29.43 kg/m2 Ze Holbrook Patient Debate Director I - 03/13/2022 7:09 EDT documented in this encounter Plan of Treatment Not on file documented as of this encounter Visit Diagnoses Not on filedocumented in this encounter
--- OUTSIDE RECORDS SUMMARY | 2025-02-21 13:38 | XMS_ITS | Encounter Summary ---
Author Organization [employer] [facility] Address [address] [place] [address] Care Team Providers Care Tactical/Mobile Watch Officer Name Role Phone Unavailable Primary Care Provider Unavailabl e Encounter Details Date Type Department Care Team (Late st Contact Info) Description 04/09/2022 Transcribed Document [facility] [place] [address] [place] [address] ProviderFlorentino MD [address] [place] [address] Social History Tobacco Use Types Packs/Day Years Used Date Smoking Tobacco: Never Assessed Comments Unknown Sex and Gender Information Value Date Recorded Sex Assigned at Not on file Legal Sex Female 1:44 PM CDT Gender Identity Not on file Sexual Orientation Not on file documented as of this encounter Miscellaneous Notes * Cerner Conversion Note - Florentino Lynne MD - 04/09/2022 12:06 PM CDT On Going Discharge Planning Entered On: 04/09/2022 12:07 EDT Performed On: 04/09/2022 12:06 EDT by SHERIF PAYNE, RN-Entry Level Assistant ManagerBuilding Construction Supervisor Progress Note Discharge Arrangements : Patient Post-Acute Information Patient Name: ALYSSA AZUL Gender: Female : 60 Age: 61 Years No Post-Acute Placement(s) Listed No Post-Acute Service(s) Listed No Curaspan Referral(s) Listed Discharge Options Discussed with Patient : Home Health, senior living Patient Discharge Goal : [facility] facility SHERIF PAYNE, RN-Entry Level Assistant Manager - 04/09/2022 12:06 EDT Narrative Progress Note Narrative Progress Note : APS reported filed. [id number]. spoke with Andrés, clover rn, Amber, heating unit installer & Mary, supervisor feed house. SHERIF PAYNE, RN-Entry Level Assistant Manager - 04/09/2022 12:06 EDT Electronically signed by [facility] Conversion Construction Craft Laborer Cerner at 12/21/2022 5:06 PM CDT documented in this encounter Plan of Treatment Not on file documented as of this encounter Visit Diagnoses Not on filedocumented in this encounter
--- OUTSIDE RECORDS SUMMARY | 2025-02-21 13:38 | XMS_ITS | Encounter Summary ---
Author Organization [employer] [facility] Address [address] [place] [address] Care Team Providers Care Hybrid Tester Name Role Phone Unavailable Primary Care Provider Unavailabl e Encounter Details Date Type Department Care Team (Late st Contact Info) Description 04/09/2022 Transcribed Document [facility] [place] [address] [place] [address] ProviderFlorentino MD [address] [place] [address] Social History Tobacco Use Types Packs/Day Years Used Date Smoking Tobacco: Never Assessed Comments Unknown Sex and Gender Information Value Date Recorded Sex Assigned at Not on file Legal Sex Female 1:44 PM CDT Gender Identity Not on file Sexual Orientation Not on file documented as of this encounter Miscellaneous Notes * Cerner Conversion Note - Florentino Lynne MD - 04/09/2022 1:02 PM CDT UM Authorization Entered On: 04/09/2022 13:03 EDT Performed On: 04/09/2022 13:02 EDT by SARAH MORALES RN Primary Insurance Authorization Authorization and Policy Numbers : Insurance 1 Health Plan: [facility] Policy Number: [id number] Authorization Number: Insurance Primary Name : [facility] - [id number] Authorization Status-Primary : Denied Reference Number-Primary : [id number] Authorized Service Begin Date-Primary : 04/08/2022 EDT Authorization Comments-Primary : Message sent to [place] for p2p. She has agreed to attempt. Historical Authorization Comments-Primary : Comment 1: PER [employer]AILITY IP AUTH PENDED. CLINICAL FAXED VIA [employer] (Digna Kidd Rn-Utilization Review 04/09/2022 11:31) Comment 2: Denied per fax 04/08/22 @ 1635 no resoning noted. Placed in Denials 2021 folder. (Mallory Sanchez, Trout Farmer 04/09/2022 09:43) SARAH MORALES, RN - 04/09/2022 13:02 EDT Electronically signed by [facility] Conversion Medical Research Associate Cerner at 12/21/2022 5:07 PM CDT documented in this encounter Plan of Treatment Not on file documented as of this encounter Visit Diagnoses Not on filedocumented in this encounter
--- OUTSIDE RECORDS SUMMARY | 2025-02-21 13:38 | XMS_ITS | Encounter Summary ---
Author Organization [employer] [facility] Address [address] [place] [address] Care Team Providers Care Account Manager Name Role Phone Unavailable Primary Care Provider Unavailabl e Encounter Details Date Type Department Care Team (Late st Contact Info) Description 04/09/2022 Transcribed Document [facility] [place] Family Medicine [address] [place] [address] ProviderFlorentino MD [address] [place] [address] Social History Tobacco Use Types Packs/Day Years Used Date Smoking Tobacco: Never Assessed Comments Unknown Sex and Gender Information Value Date Recorded Sex Assigned at Not on file Legal Sex Female 1:44 PM CDT Gender Identity Not on file Sexual Orientation Not on file documented as of this encounter Miscellaneous Notes * Cerner Conversion Note - Florentino ProviderMD - 04/09/2022 11:16 AM CDT UM Authorization Entered On: 04/09/2022 11:17 EDT Performed On: 04/09/2022 11:16 EDT by Digna Kidd Rn-Utilization Review Primary Insurance Authorization Authorization and Policy Numbers : Insurance 1 Health Plan: [facility] Policy Number: [id number] Authorization Number: Insurance Primary Name : [facility] - [id number] Authorization Status-Primary : Denied Reference Number-Primary : [id number] Authorized Service Begin Date-Primary : 04/08/2022 EDT Historical Authorization Comments-Primary : Comment 1: Denied per fax 04/08/22 @ 4392 no resoning noted. Placed in Denials 2021 folder. (Mallory Sanchez, Medical Biller/Coder 04/09/2022 09:43) Digna Kidd Rn-Utilization Review - 04/09/2022 11:16 EDT documented in this encounter Plan of Treatment Not on file documented as of this encounter Visit Diagnoses Not on filedocumented in this encounter
--- OUTSIDE RECORDS SUMMARY | 2025-02-21 13:38 | XMS_ITS | Encounter Summary ---
Author Organization [employer] Address [address] [place] [address] Care Team Providers Care Freezer Worker Name Role Phone Unavailable Primary Care Provider Unavailabl e Encounter Details Date Type Department Care Team (Late st Contact Info) Description 04/16/2022 Transcribed Document [facility] [place] [facility] [place] [address] ProviderFlorentino MD [address] [place] [address] Social History Tobacco Use Types Packs/Day Years Used Date Smoking Tobacco: Never Assessed Comments Unknown Sex and Gender Information Value Date Recorded Sex Assigned at Not on file Legal Sex Female 1:44 PM CDT Gender Identity Not on file Sexual Orientation Not on file documented as of this encounter Miscellaneous Notes * Cerner Conversion Note - Florentino Lynne MD - 04/16/2022 2:56 PM CDT Patient: ALYSSA AZUL Age: 61 years Sex: Female : 1960 Associated Diagnoses: None Author: KARYNA ALEXANDRA MD-OBG Basic Information 61 yo . We were asked to see this nice lady as a consult for abnormal vulvar findings. The last time we examined the patient while she was in the ICU on a ventilator and dialysis. The patient is paraplegic and does not have pain sensation from the waist down. She is status post hysterectomy for fibroids and a bilateral salpingectomy was preformed with a large Pfannensteil incision. 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 Patient's demise was caused by a fall at a nursing facility. She has made a remarkable recovery from the ICU to current status. She is pleasant and talkative and very much aware of her health situation. She remembers that it was at night but has no other recollection of details. Health Status Current medications: (Selected) Inpatient Medications Ordered Desenex [...] mg, 300 mL, 300 mL/Hr, IV Piggyback, [id number] calcium gluconate: 1 Gram, 100 mL, 100 [...] micafungin: 100 mg, 100 mL/Hr, IV Piggyback, [id number] Documented Medications Documented DuoNeb 0.5 mg-2.5 mg/3 [...] 1 Tab, Oral, At Bedtime, 0 Refill(s) Objective VS/Measurements Vitals Signs (last 24 hrs) Last Charted Minimum Maximum Temp 98.8 (APR 16 10:20) 97.8 (APR 16 05:26) 98.8 (APR 15 17:29) Mon HR 96 (APR 16 10:48) 54 (APR 16 01:53) 96 (APR 16 10:48) Resp Rate 18 (APR 16 08:37) 16 (APR 15 17:29) 18 (APR 15 22:17) SBP H 157 (APR 16 10:20) 120 (APR 16 01:53) H 157 (APR 16 05:26) DBP 68 (APR 16 10:20) 66 (APR 16 01:53) 90 (APR 15 17:29) MAP 104 (APR 16 10:20) 81 (APR 16 01:53) 115 (APR 15 17:29) SpO2 L 93 (APR 16 14:00) L 93 (APR 16 14:00) 100 (APR 15 22:17) External peroneal exam shows more prominent right labia minora, but without edema that was present last week. There are no visible lesions except for fungal changes in groin area. Patient does not complain of tenderness and does not feel the sensation of touch due to paraplegia. Her peroneum looks clear of any stool. Review / Management Results review: Labs (Last four charted values) WBC 5.4 (APR 16) 4.8 (APR 15) 6.0 (APR 14) 8.4 (APR 13) HB L 7.8 (APR 16) L 7.6 (APR 15) L 7.2 (APR 14) L 7.4 (APR 13) HCT L 24.3 (APR 16) L 23.7 (APR 15) L 22.3 (MAR 15) L 22.4 (APR 13) Plt L 106 (APR 16) L 106 (MAR 16) L 104 (MAR 15) L 106 (APR 13) Na 137 (APR 16) 141 (MAR 16) 139 (APR 14) 137 (APR 13) K 4.1 (APR 16) 3.9 (APR 15) L 3.2 (APR 14) L 3.1 (APR 13) Cl 109 (APR 16) 108 (APR 15) 108 (MAR 15) 107 (APR 13) CO2 28 (APR 16) 28 (MAR 16) 26 (MAR 15) 26 (APR 13) BUN H 28 (MAR 17) H 29 (MAR 16) H 32 (MAR 15) H 26 (APR 13) Cr H 1.60 (MAR 17) H 1.50 (MAR 16) H 1.60 (APR 14) H 1.70 (APR 13) Glu R 93 (APR 16) 106 (MAR 16) H 163 (MAR 15) H 222 (APR 13) Ca 8.4 (APR 16) 8.6 (APR 15) 8.4 (APR 14) L 8.2 (APR 13) Lactic 1.0 (APR 14) 1.7 (APR 13) [...] (APR 09) H 1603 (APR 08) . Impression and Plan This 61 yo nice lady has made a remarkable recovery. The perineal area has improved as well. The prominent labia minora on the right which was about 3cm in size has gone down in size to 1cm and there is no evidence of any abscess formation. Because of the lichen sclerosis skin condition that she has around the vulva, the swelling might have been exacerbated. Current status is hypertrophy of right sided labia minora without evidence of abscess, abscess, or any other lesions. I will be happy to see her for followup in my clinic once she stabilizes from her current status. Recommendations for discharge medications include nystatin powder and no other treatment. Thank you for the consult. documented in this encounter Plan of Treatment Not on file documented as of this encounter Visit Diagnoses Not on filedocumented in this encounter
--- OUTSIDE RECORDS SUMMARY | 2025-02-21 13:38 | XMS_ITS | Encounter Summary ---
Author Organization [email or web address] [facility] Address [address] [place] [address] Care Team Providers Care Fagoting Machine Operator Name Role Phone Unavailable Primary Care Provider Unavailabl e Encounter Details Date Type Department Care Team (Late st Contact Info) Description 04/09/2022 Transcribed Document [facility] [place] [address] [place] [address] ProviderFlorentino MD [address] [place] [address] Social History Tobacco Use Types [...] Lynne MD - 04/09/2022 11:31 AM CDT UM Authorization Entered On: 04/09/2022 11:31 EDT Performed On: 04/09/2022 11:31 EDT by Digna Kidd Rn-Utilization Review Primary Insurance Authorization Authorization and Policy Numbers : Insurance 1 Health Plan: [facility] Policy Number: [id number] Authorization Number: Insurance Primary Name : [facility] - [id number] Authorization Status-Primary : Denied Reference Number-Primary : [id number] Authorized Service Begin Date-Primary : 04/08/2022 EDT Authorization Comments-Primary : PER AVAILITY IP AUTH PENDED. CLINICAL FAXED VIA [facility] Historical Authorization Comments-Primary : Comment 1: Denied per fax 04/08/22 @ 8786 no resoning noted. Placed in Denials 2021 folder. (Mallory Sanchez, Payroll Administrator 04/09/2022 09:43) Bernabe, Digna L, Rn-Utilization Review - 04/09/2022 11:31 EDT Electronically signed by [facility], [facility] Conversion Digital Field Service Technician Cerner at 12/21/2022 5:02 PM CDT documented in this encounter Plan of Treatment Not on file documented as of this encounter Visit Diagnoses Not on filedocumented in this encounter
--- OUTSIDE RECORDS SUMMARY | 2025-02-21 13:38 | XMS_ITS | Encounter Summary ---
Author Organization [employer] Address [address] [place] [address] Care Team Providers Care Ciaio Counter Molder Name Role Phone Unavailable Primary Care Provider Unavailabl e Encounter Details Date Type Department Care Team (Late st Contact Info) Description 04/16/2022 Transcribed Document [facility] [place] [address] [place] [address] ProviderFlorentino MD [address] [place] [address] Social History Tobacco Use Types Packs/Day Years Used Date Smoking Tobacco: Never Assessed Comments Unknown Sex and Gender Information Value Date Recorded Sex Assigned at Not on file Legal Sex Female 1:44 PM CDT Gender Identity Not on file Sexual Orientation Not on file documented as of this encounter Miscellaneous Notes * Cerner Conversion Note - Historical ProviderMD - 04/16/2022 2:00 AM CDT Car Dumper Details Entered On: 04/16/2022 4:35 EDT Performed On: 04/16/2022 2:00 EDT by Casey Palacios Non Emp RN Order Details Transport Mode Order Detail : Bed (including specialty) Isolation Precautions Order Detail : Standard Precautions Order Detail : 0 IV Order Detail : 0 Oxygen Order Detail : 0 Nurse Collect Order Detail : 1 Lift/Transfer : Maximal assist Central Line Order Detail : Yes Room Service : Appropriate Arterial Line : Yes Patient Needs Meds Crushed/Liquid : No Casey Palacios Non Emp RN - 04/16/2022 4:34 EDT documented in this encounter Plan of Treatment Not on file documented as of this encounter Visit Diagnoses Not on filedocumented in this encounter
--- OUTSIDE RECORDS SUMMARY | 2025-02-21 13:38 | XMS_ITS | Encounter Summary ---
Author Organization [employer] Address [address] [place] [address] Care Team Providers Care Tow Motor Mechanic Name Role Phone Unavailable Primary Care Provider Unavailabl e Encounter Details Date Type Department Care Team (Late st Contact Info) Description 04/16/2022 Transcribed Document [facility] [place] Family Medicine [address] [place] [address] ProviderFlorentino MD [address] [place] [address] Social History Tobacco Use Types Packs/Day Years Used Date Smoking Tobacco: Never Assessed Comments Unknown Sex and Gender Information Value Date Recorded Sex Assigned at Not on file Legal Sex Female 1:44 PM CDT Gender Identity Not on file Sexual Orientation Not on file documented as of this encounter Miscellaneous Notes * Cerner Conversion Note - Florentino Lynne MD - 04/16/2022 9:42 AM CDT UM Authorization Entered On: 04/16/2022 9:43 EDT Performed On: 04/16/2022 9:42 EDT by SHERIF LYNCH, Range Conservationist Primary Insurance Authorization Authorization and Policy Numbers : Insurance 1 Health Plan: [facility] Policy Number: [id number] Authorization Number: Insurance Primary Name : [facility] - [id number] Authorization Status-Primary : Admit approved Reference Number-Primary : [id number] Number of Days Authorized-Primary : 13 Day(s) Authorized Service Begin Date-Primary : 04/08/2022 EDT Authorized Service End Date-Primary : 04/21/2022 EDT Authorization Comments-Primary : Rec faxed outcome of p2p scanned it to denials 2021 file and placed in tray on [employer] desk Historical Authorization Comments-Primary : Comment 1: Per fax received 04/16 @ 0914am approved after p2p completed. Approved 04/08-04/21 NRD 04/22 (SARAH MORALES RN 04/16/2022 09:32) Comment 2: CLINICAL UPDATE FAXED VIA [employer] 04/11-04/15 ([address], PRIMO 04/15/2022 16:00) Comment 3: Per call to [facility] p2p line Luisa stated p2p took place yestered04/14 and denial was OT/approved. Luisa did not have any idea regarding when c/s would be due. left for rn clinical review Sharon. (SARAH MORALES RN 04/15/2022 12:15) Comment 4: Per Dr Perez she is agreeable to attempt p2p on Saturday 04/14. Called Logan back and he scheduled for thursday @ 2pm with Dr William calling Dr Cabello. (SARAH MORALES RN 04/11/2022 11:09) Comment 5: Per Katie she did not receive a call to complete this p2p. Called back in & per Orville he can reschedule with a physician. Informed him that I would need to reach out to a diff physician as the one from yesterday is off service now. He stated I can call back in and reschedule. (SARAH MORALES RN 04/11/2022 10:30) Comment 6: Katie agreed to attempt p2p. Scheduled for 04/[address] William calling Katie (SARAH MORALES RN 04/09/2022 15:26) Comment 7: Message sent to Katie for p2p. She has agreed to attempt. (SARAH MORALES RN 04/09/2022 13:02) Comment 8: PER [employer] IP AUTH PENDED. CLINICAL FAXED VIA [employer] (Digna Kidd Rn-Utilization Review 04/09/2022 11:31) Comment 9: Denied per fax 04/08/22 @ 1635 no resoning noted. Placed in Denials 2021 folder. (Mallory Sanchez, Implant Coordinator 04/09/2022 09:43) SHERIF YLNCH, Range Conservationist - 04/16/2022 9:42 EDT documented in this encounter Plan of Treatment Not on file documented as of this encounter Visit Diagnoses Not on filedocumented in this encounter
--- OUTSIDE RECORDS SUMMARY | 2025-02-21 13:38 | XMS_ITS | Encounter Summary ---
Author Organization [employer] Address [address] [place] [address] Care Team Providers Care Rough Planer Tender Name Role Phone Unavailable Primary Care Provider Unavailabl e Encounter Details Date Type Department Care Team (Late st Contact Info) Description 04/09/2022 Transcribed Document [facility] [place] Family Medicine [address] [place] [address] ProviderFlorentino MD [address] [place] [address] Social History Tobacco Use Types Packs/Day Years Used Date Smoking Tobacco: Never Assessed Comments Unknown Sex and Gender Information Value Date Recorded Sex Assigned at Not on file Legal Sex Female 1:44 PM CDT Gender Identity Not on file Sexual Orientation Not on file documented as of this encounter Miscellaneous Notes * Cerner Conversion Note - Florentino Lynne MD - 04/09/2022 3:51 PM CDT Patient: ALYSSA AZUL Age: 61 years Sex: Female : 1960 Associated Diagnoses: None Author: KARYNA ALEXANDRA MD-OBG Basic Information 61 yo white female who has been paraplegic since childhood but has had good quality life with her condition. She has not had a history of MEDICAL TECHNOLOGIST CHEMISTRY problems. She has had a hysterectomy for an undocumented reason. Radiologic imaging does not reveal presence of ovaries. She has not had a gynecologic exam in a long time but has not had any refinery operator helper cracking unit issues until it was noted by the paramedics that there was a possible swollen clitoris after the fall she suffered at the snf. I was called to examine the patient to determine the etiology of the lesion. History was obtained from her son who is her only child. Health Status Current medications: (Selected) Inpatient Medications Ordered Dextrose [...] 4K/2.5 Ca bag - GREEN 5,000 mL: 1,250 mL/Hr, Miscellaneous Phoxillum BK 4K/2.5 Ca bag - PURPLE 5,000 mL: 650 mL/Hr, Miscellaneous Phoxillum BK 4K/2.5 Ca bag - WHITE 5,000 mL: 1,000 mL/Hr, Miscellaneous Zyvox: 600 mg, 300 mL, 300 mL/Hr, IV Piggyback, [id number] calcium gluconate: 1 Gram, 100 mL, 100 [...] mL: 500 mg, 16.67 mL/Hr, IV Piggyback, [id number] micafungin: 100 mg, 100 mL/Hr, IV Piggyback, [id number] phenylephrine injection 80 mg + NaCl 0.9% [...] hrs) Last Charted Minimum Maximum Mon HR 43 (APR 09 15:39) 39 (APR 09 03:30) 92 (APR 08 17:15) Resp Rate H 22 (APR 09:39) L 10 (APR 09 11:06) H 48 (APR 09 06:00) SBP 117 (APR 09 10:00) 109 (APR 08 23:00) H 187 (APR 09 03:30) DBP L 56 (APR 09 10:00) L 51 (APR 09 05:00) H 91 (APR 09 09:00) MAP 96 (APR 09 13:00) 58 (APR 09 07:00) 117 (APR 09 00:15) SpO2 100 (APR 09 15:39) 98 (APR 08 18:15) 100 (APR 08 15:59) Breast: No mass, No tenderness, Bilateral symmetrical inverted nipples. . Genitourinary: External exam shows rash consistant with river/fungal skin excoriations that look chronic. There is edememitous labia minora. 3x3cm in size. Which does not have cystic or abscess formation within it. Patient also has lichen sclerosis changes. Which have caused labial adhesions and fusion over the clitoris and urethra. Speculum exam (with small speculum due to narrow opening) was performed and yellowish discharge was collected and sent for culture. No visible lesions or abnormalities were seen. There is no prolapse. Cervix and uterus are surgically absent. Rectal area has a temperature probe and mechonium type stool present which extends into perineal area and was cleaned up. Patient does not have rectal sphincter tone. 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 . Review / Management Results review: Labs (Last [...] 09) L 7.8 (APR 09) Lactic C 2.9 (APR 09) C 5.0 (APR 09) C 3.5 (APR 09) C 7.0 (APR 09) PT 11.1 (APR 09) 10.5 [...] 1603 (APR 08) . Impression and Plan The vulvar lesion of concern is an edematous right labia minora. The edema makes it more pronounced, but patient has probably had asymmetry for a while due to adhesions from lichen sclerosis which is a chronic condition and was probably asymptomatic and is not harmful. We will treat the edema with perineal ice pads which will help separate the labia and keep the stool away. Culture was collected and is pending. Patient is being treated with antifungal which are advised by infectious disease. Wound care has recommended topical antifungal powder which I also recommend. I have discussed my findings with the family. No trauma or acute injury is suspected in this area. Thank you for the consult. We hope for the best for this patient and her family. We will followup as needed. documented in this encounter Plan of Treatment Not on file documented as of this encounter Visit Diagnoses Not on filedocumented in this encounter
--- OUTSIDE RECORDS SUMMARY | 2025-02-21 13:38 | XMS_ITS | Encounter Summary ---
Author Organization [employer] [facility] Address [address] [place] [address] Care Team Providers Care High Speed Operator Name Role Phone Unavailable Primary Care Provider Unavailabl e Encounter Details Date Type Department Care Team (Late st Contact Info) Description 04/09/2022 Transcribed Document [facility] Family Medicine [address] [place] [address] ProviderFlorentino MD [address] [place] [address] Social History Tobacco Use Types Packs/Day Years Used Date Smoking Tobacco: Never Assessed Comments Unknown Sex and Gender Information Value Date Recorded Sex Assigned at Not on file Legal Sex Female 1:44 PM CDT Gender Identity Not on file Sexual Orientation Not on file documented as of this encounter Miscellaneous Notes * Cerner Conversion Note - Florentino Lynne MD - 04/09/2022 3:26 PM CDT UM Authorization Entered On: 04/09/2022 15:26 EDT Performed On: 04/09/2022 15:26 EDT by SARAH MORALES RN Primary Insurance Authorization Authorization and Policy Numbers : Insurance 1 Health Plan: [facility] Policy Number: [id number] Authorization Number: Insurance Primary Name : [facility] - [id number] Authorization Status-Primary : Denied Reference Number-Primary : [id number] Authorized Service Begin Date-Primary : 04/08/2022 EDT Authorization Comments-Primary : Katie agreed to attempt p2p. Scheduled for 04/[address] William calling Katie Historical Authorization Comments-Primary : Comment 1: Message sent to Katie for p2p. She has agreed to attempt. (SARAH MORALES RN 04/09/2022 13:02) Comment 2: PER AVAILITY IP AUTH PENDED. CLINICAL FAXED VIA [employer] (Digna Kidd, Rn-Utilization Review 04/09/2022 11:31) Comment 3: Denied per fax 04/08/22 @ 0010 no resoning noted. Placed in Denials 2021 folder. (Mallory Sanchez, Administrative Assistant Front Desk 04/09/2022 09:43) SARAH MORALES RN - 04/09/2022 15:26 EDT documented in this encounter Plan of Treatment Not on file documented as of this encounter Visit Diagnoses Not on filedocumented in this encounter
--- OUTSIDE RECORDS SUMMARY | 2025-02-21 13:38 | XMS_ITS | Encounter Summary ---
Author Organization [facility] [facility] Address [address] [place] [address] Care Team Providers Care Sales Specialist Name Role Phone Unavailable Primary Care Provider Unavailabl e Encounter Details Date Type Department Care Team (Late st Contact Info) Description 03/13/2022 Transcribed Document [facility] [place] Family Medicine [facility] [place] [address] ProviderFlorentino MD [facility] [address] Social History Tobacco Use [...] Note - Florentino Lynne MD - 03/13/2022 8:23 AM CDT On Going Discharge Planning Entered On: 03/13/2022 8:23 EDT Performed On: 03/13/2022 8:23 EDT by EMIL GIRALDO RN - Cabin OutfitterLieutenant Firefighter Progress Note Discharge Arrangements : Patient Post-Acute [...] Inpatient rehabilitation facility EMIL GIRALDO RN - Cabin Outfitter - 03/13/2022 8:23 EDT Narrative Progress Note Narrative Progress Note : CM is waiting for a return call from Rachel with [facility] about possible bed offer. Historical Progress Note : CM spoke with Matilde at [facility] and they cannot take the patient. Cm sent referrals to area snfs. EMIL GIRALDO RN - Cabin Outfitter - 03/12/22 09:15:18 pt transferred off unit prior to cm assessment. DCP: PT/OT re-evals pending to assist with discharge plan. Anticipate patient will need inpatient rehab. TRISTAN TAYLOR, PRIMO-Cabin Outfitter - 03/11/22 15:52:03 RAR High ELOS: 12 days HD#7 Covid Vaccine X2 +Booster 61 year old female with history paraplegia, CKD3, DM2, HTN; presented to [facility] with SOB, fever, chills and productive Cough X1 week. Admitted for PNA and debridement DTI to left buttock. Cardiac arrested, intubated and transferred to [facility]. She was extubated a couple days later and reintubated the same day and extubated. She was reintubated on 03/01 after failed BiPap and transferred to [facility]. Of note patient had trach/PEG in 2009. Consults: Pulmonary, ID 03/01 Intubated 03/08 Extubated 03/01 Central Line Patient extubated on Thursday. Awake and alert, following commands. O2 sat 99% on 3 liters. RETAIL BUSINESS DEVELOPMENT MANAGER swallow eval, not safe to initiate po diet, continue corpak with TF. Renal function improving. DCP: PT/OT re-evals pending to assist with discharge plan. Anticipate patient will need inpatient rehab. Will fax referral when therapy notes available. STEFAN FERNANDEZ RN-Cabin Outfitter - 03/09/22 14:31:25 RAR High ELOS: 5 days HD#3 Covid Vaccine X2 +Booster 61 year old female with history paraplegia, CKD3, DM2, HTN; presented to [facility] with SOB, fever, chills and productive Cough X1 week. Admitted for PNA and debridement DTI to left buttock. Cardiac arrested, intubated and transferred to [facility]. She was extubated a couple days later and reintubated the same day and extubated. She was reintubated on 03/01 after failed BiPap and transferred to [facility]. Of note patient had trach/PEG in 2009. Consults: Pulmonary, ID 7/2 Intubated Vent Day #5 7/2 Central Line On MV per ET AC 16/400/40%/P8, sedated with Fentanyl and Propofol, awake and following commands. Na+ trending up 149. Corpak with TF. ID plan: IV Zosyn q8. Wound Vac to left buttock. Patient lives alone in [place]. She is and has one son FREDO. Her PCP s Dr. Cabello. Patient is ADL independent at her baseline. Only inpatient rehab stay was at [facility] at age 9. No prior home health services. She has a CPap and dated WC at home. She transports by her son or Medicaid van. DCP: CM spoke with patient's son FREDO on the phone. He and his plan to ultimately take her home to their house in [place] after hospitalization and LTACH/Rehab stay for IV abx and wound care. Patient has managed medicaid and does not have a SNF benefit. Her inpatient options at discharge will be LTACH or acute rehab versus home with home health. Early referral to [facility]. Son asked if we could assist in getting her a new WC at discharge. He will let CM know the name of her DME provider to see if she is eligible for a new one. CM will assist to get his [facility] paperwork over to Sound office. STEFAN FERNANDEZ, RN-Cabin Outfitter - 03/05/22 13:34:00 EMIL GIRALDO, RN - Cabin Outfitter - 03/13/2022 8:23 EDT Electronically signed by [facility] Conversion Sharepoint Architect Cerner at 12/21/2022 5:01 PM CDT documented in this encounter Plan of Treatment Not on file documented as of this encounter Visit Diagnoses Not on filedocumented in this encounter
--- OUTSIDE RECORDS SUMMARY | 2025-02-21 13:38 | XMS_ITS | Encounter Summary ---
Author Organization [employer] [facility] Address [address] [place] [address] Care Team Providers Care Subsorter Name Role Phone Unavailable Primary Care Provider Unavailabl e Encounter Details Date Type Department Care Team (Late st Contact Info) Description 04/18/2022 Transcribed Document [facility] [place] Family Medicine [facility] [place] [address] ProviderFlorentino MD [address] [place] [address] Social History Tobacco Use Types Packs/Day Years Used Date Smoking Tobacco: Never Assessed Comments Unknown Sex and Gender Information Value Date Recorded Sex Assigned at Not on file Legal Sex Female 1:44 PM CDT Gender Identity Not on file Sexual Orientation Not on file documented as of this encounter Miscellaneous Notes * Cerner Conversion Note - Florentino Lynne MD - 04/18/2022 11:13 AM CDT UM Authorization Entered On: 04/18/2022 11:18 EDT Performed On: 04/18/2022 11:13 EDT by SHILPI MORRELL RN Primary Insurance Authorization Authorization and Policy Numbers : Insurance 1 Health Plan: [facility] Policy Number: [id number] Authorization Number: Insurance Primary Name : [facility] - [id number] Authorization Status-Primary : Denied Reference Number-Primary : [id number]--[place] Medicaid #[id number] Number of Days Authorized-Primary : 13 Day(s) Authorized Service Begin Date-Primary : 04/08/2022 EDT Authorized Service End Date-Primary : 04/21/2022 EDT Authorization Comments-Primary : Information,verified by placing a call to [place] Medicaid. Per the ocean import representative spoken to, Keila Lassiter, the care provided to this patient will be technically denied due to late notification,since the patient was admitted on 04/08/2022 and coverage with [place] Medicaid, was initiated on 03/20/2022. She further stated that the reference number provided (#[id number]) is not for billing purpose Historical Authorization Comments-Primary : Comment 1: CALL RECEIVED RUDDY KAY /francheska AETNA MESSAGE LEFT STATING THAT PT IS NO LONGER AN AETNA MEMBER EFFECTIVE 03/29/2022, THEREFOR THE APPROVAL GRANTED HAS BEEN RESENDED. PER ELIZA PT IS NOW STRAIGHT MEDICAID. (Shilpi Morrell, PRIMO 04/18/2022 09:48) Comment 2: Rec faxed outcome of p2p scanned it to denials 2021 file and placed in tray on [employer] desk (SHERIF LYNCH, Insole Doubler 04/16/2022 09:42) Comment 3: Per fax received 04/16 @ 0914am approved after p2p completed. Approved 04/08-04/21 NRD 04/22 (SARAH MORALES RN 04/16/2022 09:32) Comment 4: CLINICAL UPDATE FAXED VIA [employer] 04/11-04/15 (Shlipi Morrell, PRIMO 04/15/2022 16:00) Comment 5: Per call to [facility] p2p line Luisa stated p2p took place yes04/14 and denial was OT/approved. Luisa did not have any idea regarding when c/s would be due. VM left for manager review Sharon. (SARAH MORALES RN 04/15/2022 12:15) Comment 6: Per Dr Perez she is agreeable to attempt p2p on Saturday 04/14. Called Logan back and he scheduled for thursday @ 2pm with Dr William calling Dr Cabello. (SARAH MORALES RN 04/11/2022 11:09) Comment 7: Per Katie she did not receive a call to complete this p2p. Called back in & per Orville he can reschedule with a physician. Informed him that I would need to reach out to a diff physician as the one from yesterday is off service now. He stated I can call back in and reschedule. (SARAH MORALES RN 04/11/2022 10:30) Comment 8: Katie agreed to attempt p2p. Scheduled for 04/[address] William calling Katie (SARAH MORALES RN 04/09/2022 15:26) Comment 9: Message sent to Katie for p2p. She has agreed to attempt. (SARAH MORALES RN 04/09/2022 13:02) Comment 10: PER [employer] IP AUTH PENDED. CLINICAL FAXED VIA [employer] (Digna Kidd Rn-Utilization Review 04/09/2022 11:31) Comment 11: Denied per fax 04/08/22 @ 1100 no resoning noted. Placed in Denials 2021 folder. (Mallory Sanchez, Elevator Constructor 04/09/2022 09:43) SHILPI MORRELL RN - 04/18/2022 11:13 EDT documented in this encounter Plan of Treatment Not on file documented as of this encounter Visit Diagnoses Not on filedocumented in this encounter
--- OUTSIDE RECORDS SUMMARY | 2025-02-21 13:38 | XMS_ITS | Encounter Summary ---
Author Organization [employer] [facility] Address [address] [place] [address] Care Team Providers Care Neurology Nurse Name Role Phone Unavailable Primary Care Provider Unavailabl e Encounter Details Date Type Department Care Team (Late st Contact Info) Description 04/09/2022 Transcribed Document [facility] [place] Family Medicine [address] [place] [address] ProviderFlorentino MD [address] [place] [address] Social History Tobacco Use Types Packs/Day Years Used Date Smoking Tobacco: Never Assessed Comments Unknown Sex and Gender Information Value Date Recorded Sex Assigned at Not on file Legal Sex Female 1:44 PM CDT Gender Identity Not on file Sexual Orientation Not on file documented as of this encounter Miscellaneous Notes * Cerner Conversion Note - Historical ProviderMD - 04/09/2022 10:20 AM CDT Advance Directive Entered On: 04/09/2022 16:21 EDT Performed On: 04/09/2022 10:20 EDT by MARYBEL ROCHE Advance Directive Patient has Advance Directive *Q : Unable to obtain Reason AD Information Not Obtained : Patient intubated Advance Directive Comment : Ms. Azul is intubated and sedated and unable to complete a Living Will MARYBEL ROCHE - 04/09/2022 16:21 EDT documented in this encounter Plan of Treatment Not on file documented as of this encounter Visit Diagnoses Not on filedocumented in this encounter
--- OUTSIDE RECORDS SUMMARY | 2025-02-21 13:38 | XMS_ITS | Encounter Summary ---
Author Organization [employer] Address [address] [place] [address] Care Team Providers Care Header Up Name Role Phone Unavailable Primary Care Provider Unavailabl e Encounter Details Date Type Department Care Team (Late st Contact Info) Description 04/18/2022 Transcribed Document [facility] [place] [address] [place] [address] ProviderFlorentino MD [address] [place] [address] Social History Tobacco Use Types Packs/Day Years Used Date Smoking Tobacco: Never Assessed Comments Unknown Sex and Gender Information Value Date Recorded Sex Assigned at Not on file Legal Sex Female 1:44 PM CDT Gender Identity Not on file Sexual Orientation Not on file documented as of this encounter Miscellaneous Notes * Cerner Conversion Note - Florentino Lynne MD - 04/18/2022 9:54 AM CDT Patient: ALYSSA AZUL Age: 61 years Sex: Female : 1960 Associated Diagnoses: None Author: CHICA RAZA MD-[facility] Subjective Chief complaint. 04/18/22 awake weak no fever Health Status Allergies: [...] History of obstructive sleep apnea / IMO [id number] / Confirmed Diabetes / SNOMED CT 146601450 / Confirmed, Active Problems (6) Chronic kidney disease (CKD), stage III (moderate) Diabetes History of obstructive sleep apnea Hyperlipidemia Hypertension Paraplegia Objective VS/Measurements Vitals Signs (last 24 hrs) Last Charted Minimum Maximum Temp 99.3 (APR 18 06:01) 98.8 (APR 17 14:04) 99.7 (APR 17 17:30) Mon HR 73 (APR 18 06:01) 73 (APR 18 06:01) 107 (APR 17 11:00) Resp Rate 18 (APR 18:01) 16 (APR 17 11:00) 18 (APR 17 20:24) SBP 136 (APR 18:01) 134 (APR 17 21:17) H 155 (APR 17 11:00) DBP 79 (APR 18 06:01) 72 (APR 18 02:06) 81 (APR 17:17) MAP 100 (APR 18 06:01) 88 (APR 18 02:06) 112 (APR 17 11:00) SpO2 100 (APR 18:) 95 (APR 17 14:00) 100 (APR 18 02:06) General: Alert and oriented, No acute distress. Eye: Pupils are equal, round and reactive to light, Normal conjunctiva. HENT: Normocephalic, Normal hearing. Neck: Supple. Respiratory: Respirations are non-labored, Breath sounds are equal. Cardiovascular: Normal rate. Gastrointestinal: Soft, Non-tender. Integumentary: Warm. Neurologic: Alert, Oriented. Psychiatric: Cooperative, Appropriate mood & affect. Results Review No qualifying data available No qualifying data available Impression and Plan #Severe septic shock (POA)?resolved [...] Obesity. 16. Paraplegia. 17. Bed-bound. 18. Hypertension. Disposition: waiting for placement Expected d/c date - possibly in next 2-3 days i waiting for placement time spent 32 min documented in this encounter Plan of Treatment Not on file documented as of this encounter Visit Diagnoses Not on filedocumented in this encounter
--- OUTSIDE RECORDS SUMMARY | 2025-02-21 13:38 | XMS_ITS | Encounter Summary ---
Author Organization [employer] [facility] Address [address] [place] [address] Care Team Providers Care Auto Transmission Technician Name Role Phone Unavailable Primary Care Provider Unavailabl e Encounter Details Date Type Department Care Team (Late st Contact Info) Description 03/13/2022 Transcribed Document [facility] [place] [facility] [place] [address] ProviderFlorentino MD [address] [place] [address] Social History Tobacco Use Types Packs/Day Years Used Date Smoking Tobacco: Never Assessed Comments Unknown Sex and Gender Information Value Date Recorded Sex Assigned at Not on file Legal Sex Female 1:44 PM CDT Gender Identity Not on file Sexual Orientation Not on file documented as of this encounter Miscellaneous Notes * Cerner Conversion Note - Florentino Lynne MD - 03/13/2022 3:00 AM CDT Nutrition Assessment Entered On: 03/13/2022 11:31 EDT Performed On: 03/13/2022 11:31 EDT by Sujatha Villanueva Dietitian Nutrition Assessment Nutrition Assessment Reason : Follow Up Sujatha Villanueva Dietitian - 03/13/2022 11:30 EDT Current Nutrition Regimen Comment : 03/13: High f/u. Pt had a FEES on 03/11 and DATA OPERATIONS MANAGER cleared pt for PO intake. She is [...] any nutrition education questions at this time. 03/10: High f/u. Pt was extubated on 03/08 and is currently on 4L NC with intermittent bipap. EN continues to run @ goal via corpak. DATA OPERATIONS MANAGER following and recommended to continue NPO status at this time. Dx: cardiopulmonary arrest, acute respiratory failure, sepsis/septic shock, ARF PMH: paraplegia, hyperlipidemia, DM, Labs: Glu 179, BUN 52, Cr 2.1, GFR 24, FSB/156/293 Meds: docusate, abx, Pepcid, iron, lantus, SSI, fish oil, senna GI: active BS, +Corpak (duodenal bulb), LBM 03/11 Skin: stg 3 vs 4 PU to L hip + NPWT Diet: 60g CHO Intakes: 50% x 1 meal Ht: 64 in Wt: 207#/94.2 kg (admit), no new wt (02/27), 91.5 kg (03/03), 94.2 kg (03/06), 93.5kg (03/10), 77.8kg (03/13) *wt discrepancy noted, will monitor IBW (adjusted for paraplegia): 50.4 kg (186%) BMI (inaccurate due to paraplegia): 35.6 Est Needs: 3784-1197 kcals (11-14 kcals/kg), ~100 g pro (>2 g pro/kg IBW) Sujatha Villanueva Dietitian - 03/13/2022 13:47 EDT Nutrition Diagnoses Oral or Nutrition Support [...] Status : Resolved Sujatha Villanueva Dietitian - 03/13/2022 13:58 EDT Nutrition Interventions Meals and Snacks : Carbohydrate-modified diet Sujatha Villanueva Dietitian - 03/13/2022 13:58 EDT Monitoring/Evaluation Food Intake : Amount of food Weight Status : Weight Maintanence Gastrointestinal Function : Bowel Function Integumentary : Pressure Ulcer Status Sujatha Villanueva Dietitian - 03/13/2022 13:58 EDT Nutrition Recommendations Dietitian Recommendations : 1. Continue Cardiac, 60 g CHO diet per DATA OPERATIONS MANAGER and MD. Will order Glucerna shakes and Prasanth BID for added nutrient support and promote wound healing. Goal: safe swallow, intakes > 50% 3. Monitor e-lytes, replace prn Goal: WNLs 4. Monitor FSBS, adjust insulin prn Goal: glucose 140-180 5. Monitor wt 1x/week Goal: no significant wt loss Moderate nutrition risk Sujatha Villanueva Dietitian - 03/13/2022 13:58 EDT documented in this encounter Plan of Treatment Not on file documented as of this encounter Visit Diagnoses Not on filedocumented in this encounter
--- OUTSIDE RECORDS SUMMARY | 2025-02-21 13:38 | XMS_ITS | Encounter Summary ---
Author Organization [employer] [facility] Address [address] [place] [address] Care Team Providers Care Waiter/Waitress Room Service Name Role Phone Unavailable Primary Care Provider Unavailabl e Encounter Details Date Type Department Care Team (Late st Contact Info) Description 03/13/2022 Transcribed Document [facility] [place] Family Medicine [address] [place] [address] ProviderFlorentino MD [address] [place] [address] Social History Tobacco Use Types Packs/Day Years Used Date Smoking Tobacco: Never Assessed Comments Unknown Sex and Gender Information Value Date Recorded Sex Assigned at Not on file Legal Sex Female 1:44 PM CDT Gender Identity Not on file Sexual Orientation Not on file documented as of this encounter Miscellaneous Notes * Cerner Conversion Note - Florentino Lynne MD - 03/13/2022 10:33 AM CDT Patient: ALYSSA AZUL Age: [...] History of obstructive sleep apnea / IMO [id number] / Confirmed, Active Problems (5) Chronic kidney disease (CKD), stage III (moderate) Diabetes History of obstructive sleep apnea Hyperlipidemia Hypertension Objective VS/Measurements Measurements from flowsheet : Measurements 03/13/2022 5:00 EDT Height Source Chart Height Entry Format [place] Height/Length, HONG [place]ER (ft) 5 ft Height/Length [place] 4 Inch CLINICALHEIGHT 162.56 cm Routine Weight Source Bed scale Routine Weight Entry Format [place] Routine Weight, Pounds 171 lb Routine Weight, Ounces 1 oz Routine Weight Calculation 77.76 kg Body Mass Index (BMI), Routine 29.43 kg/m2 Body Surface Area (BSA), Routine 1.83 m2 03/12/2022 5:00 EDT Height Source Chart Height Entry Format [place] Height/Length, HONG [place]ER (ft) 5 ft Height/Length [place]ER 4 Inch CLINICALHEIGHT 162.56 cm Routine Weight Source Bed scale Routine Weight Entry Format [place] Routine Weight, Pounds 179 lb Routine Weight, Ounces 1 oz Routine Weight Calculation 81.39 kg Body Mass Index (BMI), Routine 30.8 kg/m2 Body Surface Area (BSA), Routine 1.87 m2 , Vitals Signs (last 24 hrs) Last Charted Minimum Maximum Temp 97.7 (MAR 13 05:58) 97.0 (MAR 12 23:00) 97.7 (MAR 12 18:08) Apical HR 91 (MAR 12 18:24) 91 (MAR 12 18:24) 91 (MAR 12 18:24) Mon HR 77 (MAR 13 06:07) 77 (MAR 13 06:07) 94 (MAR 12 18:08) Resp Rate 18 (MAR 13 03:00) 18 (MAR 12 11:32) 18 (MAR 12 11:32) SBP L 88 (MAR 13 05:58) L 88 (MAR 13 05:58) H 178 (MAR 12 18:08) DBP L 53 (MAR 13 05:58) L 53 (MAR 13 05:58) H 96 (MAR 12 18:08) MAP 64 (MAR 13 05:58) 64 (MAR 13 05:58) 122 (MAR 12 18:08) SpO2 100 (MAR 13 03:51) 97 (MAR 12 11:32) 100 (MAR 12 23:37) Intake & Output Totals Last 24 Hours (7a-7a) Intake (14 Events) Medications (140.52 mL) Oral Intake (240 mL) Output (2 Events) Valenzuela Catheter (1150 mL) Input Total: 380.52 mL Output Total: 1150 mL Balance: -769.48 mL Physical exam contact may be limited [...] renal function - No emergent need of METAL TEMPERER. - Monitor H/H and transfuse for Hgb less than 7.0 High risk and complexity patient. documented in this encounter Plan of Treatment Not on file documented as of this encounter Visit Diagnoses Not on filedocumented in this encounter
--- OUTSIDE RECORDS SUMMARY | 2025-02-21 13:38 | XMS_ITS | Encounter Summary ---
Author Organization [employer] Address [address] [place] [address] Care Team Providers Care Roofing Subcontractor Name Role Phone Unavailable Primary Care Provider Unavailabl e Encounter Details Date Type Department Care Team (Late st Contact Info) Description 04/16/2022 Transcribed Document [facility] [place] Family Medicine [address] [place] [address] ProviderFlorentino MD [address] [place] [address] Social History Tobacco Use Types Packs/Day Years Used Date Smoking Tobacco: Never Assessed Comments Unknown Sex and Gender Information Value Date Recorded Sex Assigned at Not on file Legal Sex Female 1:44 PM CDT Gender Identity Not on file Sexual Orientation Not on file documented as of this encounter Miscellaneous Notes * Cerner Conversion Note - Florentino ProviderMD - 04/16/2022 5:00 AM CDT Chart Check - Review Order Profile Entered On: 04/16/2022 4:35 EDT Performed On: 04/16/2022 5:00 EDT by Casey Palacios Non Emp RN Chart Check Powerplans Initiated/Discontinued as Appropriate : Yes All Active Orders Reviewed : Yes Casey Palacios Non Emp RN - 04/16/2022 4:35 EDT documented in this encounter Plan of Treatment Not on file documented as of this encounter Visit Diagnoses Not on filedocumented in this encounter
--- OUTSIDE RECORDS SUMMARY | 2025-02-21 13:38 | XMS_ITS | Encounter Summary ---
Author Organization [employer] Address [address] [place] [address] Care Team Providers Care Alternative Medicine Practitioner Name Role Phone Unavailable Primary Care Provider Unavailabl e Encounter Details Date Type Department Care Team (Late st Contact Info) Description 04/19/2022 Transcribed Document [facility] [place] [address] [place] [address] ProviderFlorentino MD [address] [place] [address] Social History Tobacco Use Types Packs/Day Years Used Date Smoking Tobacco: Never Assessed Comments Unknown Sex and Gender Information Value Date Recorded Sex Assigned at Not on file Legal Sex Female 1:44 PM CDT Gender Identity Not on file Sexual Orientation Not on file documented as of this encounter Miscellaneous Notes * Cerner Conversion Note - Historical ProviderMD - 04/19/2022 2:00 AM CDT Supervisor Shed Workers Details Entered On: 04/19/2022 3:40 EDT Performed On: 04/19/2022 2:00 EDT by Linda Jack RN-PATIENT CARE BEDSIDE NON-EXEMPT Order Details Transport Mode Order Detail : Bed (including specialty) Isolation Precautions Order Detail : Standard Precautions Order Detail : 0 IV Order Detail : 0 Nurse Collect Order Detail : 0 Lift/Transfer : Maximal assist Central Line Order Detail : Yes Room Service : Appropriate Arterial Line : Yes Patient Needs Meds Crushed/Liquid : No Linda Jack RN-PATIENT CARE BEDSIDE NON-EXEMPT - 04/19/2022 3:40 EDT documented in this encounter Plan of Treatment Not on file documented as of this encounter Visit Diagnoses Not on filedocumented in this encounter
--- OUTSIDE RECORDS SUMMARY | 2025-02-21 13:38 | XMS_ITS | Encounter Summary ---
Author Organization [facility] Address [address] [place] [address] Care Team Providers Care Insurance Salesperson Name Role Phone Unavailable Primary Care Provider Unavailabl e Encounter Details Date Type Department Care Team (Late st Contact Info) Description 04/09/2022 Transcribed Document [facility] [place] Medicine [address] [place] [address] ProviderFlorentino MD [address] [place] [address] Social History Tobacco Use Types Packs/Day Years Used Date Smoking Tobacco: Never Assessed Comments Unknown Sex and Gender Information Value Date Recorded Sex Assigned at Not on file Legal Sex Female 1:44 PM CDT Gender Identity Not on file Sexual Orientation Not on file documented as of this encounter Miscellaneous Notes * Cerner Conversion Note - Florentino ProviderMD - 04/09/2022 9:43 AM CDT UM Authorization Entered On: 04/09/2022 9:44 EDT Performed On: 04/09/2022 9:43 EDT by Mallory Sanchez, Remote Sensing Engineer Primary Insurance Authorization Authorization and Policy Numbers : Insurance 1 Health Plan: [facility] Policy Number: [id number] Authorization Number: Insurance Primary Name : [facility] - [id number] Authorization Status-Primary : Denied Reference Number-Primary : [id number] Authorized Service Begin Date-Primary : 04/08/2022 EDT Authorization Comments-Primary : Denied per fax 04/08/22 @ 7993 no resoning noted. Placed in Denials 2021 folder. Historical Authorization Comments-Primary : No Authorization Comments Found Mallory Sanchez, Remote Sensing Engineer - 04/09/2022 9:43 EDT documented in this encounter Plan of Treatment Not on file documented as of this encounter Visit Diagnoses Not on filedocumented in this encounter
--- OUTSIDE RECORDS SUMMARY | 2025-02-21 13:38 | XMS_ITS | Encounter Summary ---
Author Organization [employer] [facility] Address [address] [place] [address] Care Team Providers Care Drafter Landscape Name Role Phone Unavailable Primary Care Provider Unavailabl e Encounter Details Date Type Department Care Team (Late st Contact Info) Description 04/16/2022 Transcribed Document [facility] [place] [address] [place] [address] ProviderFlorentino MD [address] [place] [address] Social History Tobacco Use Types Packs/Day Years Used Date Smoking Tobacco: Never Assessed Comments Unknown Sex and Gender Information Value Date Recorded Sex Assigned at Not on file Legal Sex Female 1:44 PM CDT Gender Identity Not on file Sexual Orientation Not on file documented as of this encounter Miscellaneous Notes * Cerner Conversion Note - Florentino Lynne MD - 04/16/2022 12:51 PM CDT Patient: ALYSSA AZUL Age: 61 years Sex: Female : 1960 Associated Diagnoses: None Author: SAUL COPPOLA MD-NEP Subjective F/U JAVIER ON CKD. ROS. NO CP/SOB. Health Status Allergies: Allergic Reactions (Selected) No [...] mg, 300 mL, 300 mL/Hr, IV Piggyback, [id number] calcium gluconate: 1 Gram, 100 mL, 100 [...] micafungin: 100 mg, 100 mL/Hr, IV Piggyback, [id number] Documented Medications Documented DuoNeb 0.5 mg-2.5 mg/3 [...] *PREMIX* 600 mg 300 mL, IV Piggyback, [id number] meropenem + NaCl 0.9% 50 mL 500 mg, IV Piggyback, Q8HInt micafungin sodium 100 mg, IV Piggyback, I87WBvt miconazole nitrate 2% pwd 85 g 1 [...] History of obstructive sleep apnea / IMO [id number] / Confirmed Diabetes / SNOMED CT [id number] / Confirmed, Active Problems (6) Chronic kidney disease (CKD), stage III (moderate) Diabetes History of obstructive sleep apnea Hyperlipidemia Hypertension Paraplegia Objective VS/Measurements Vital Signs/Vital Measures 04/16/2022 10:48 EDT Heart Rate Monitored 96 bpm Oxygen Saturation 96 % Oxygen Therapy Mode Room air 04/16/2022 10:20 EDT Systolic Blood Pressure 157 mmHg HI Diastolic Blood Pressure 68 mmHg Mean Arterial Pressure (MAP)-BMDI 104 Temperature Source Oral Temperature Mode Fahrenheit Temperature, Fahrenheit 98.8 Deg F Clinical Temperature, C 37.1 Deg C Oxygen Saturation 94 % 04/16/2022 8:37 EDT Heart Rate Monitored 84 bpm Respiratory Rate 18 Breaths/Min Oxygen Saturation 97 % Oxygen Therapy Mode Room air 04/16/2022 5:26 EDT Systolic Blood Pressure 157 mmHg HI Diastolic Blood Pressure 74 mmHg Mean Arterial Pressure (MAP)-BMDI 91 Temperature Source Axillary Temperature Mode Fahrenheit Temperature, Fahrenheit 97.8 Deg F Clinical Temperature, C 36.6 Deg C Heart Rate Monitored 86 bpm Respiratory Rate 18 Breaths/Min Oxygen Saturation 96 % Oxygen Therapy Mode Room air 04/16/2022 5:02 EDT FiO2 30 % 04/16/2022 1:53 EDT Systolic Blood Pressure 120 mmHg Diastolic Blood Pressure 66 mmHg Mean Arterial Pressure (MAP)-BMDI 81 Heart Rate Monitored 54 bpm LOW Respiratory Rate 18 Breaths/Min (Modified) Oxygen Saturation 100 % Oxygen Therapy Mode BiPAP 04/15/2022 22:50 EDT FiO2 30 % 04/15/2022 22:17 EDT Systolic Blood Pressure 154 mmHg HI Diastolic Blood Pressure 82 mmHg Mean Arterial Pressure (MAP)-BMDI 113 Temperature Source Oral Temperature Mode Fahrenheit Temperature, Fahrenheit 97.4 Deg F Clinical Temperature, C 36.3 Deg C Heart Rate Monitored 90 bpm Respiratory Rate 18 Breaths/Min Oxygen Saturation 100 % Oxygen Therapy Mode BiPAP 04/15/2022 22:01 EDT FiO2 30 % 04/15/2022 17:29 EDT Systolic Blood Pressure 156 mmHg HI Diastolic Blood Pressure 90 mmHg Mean Arterial Pressure (MAP)-BMDI 115 Temperature Source Oral Temperature Mode Fahrenheit Temperature, Fahrenheit 98.8 Deg F Clinical Temperature, C 37.1 Deg C Heart Rate Monitored 83 bpm Respiratory Rate 16 Breaths/Min Oxygen Saturation 99 % Oxygen Therapy Mode Room air 04/15/2022 15:55 EDT Oxygen Saturation 97 % [...] 100 % Oxygen Therapy Mode Room air , Vitals Signs (last 24 hrs) Last Charted Minimum Maximum Temp 98.8 (APR 16 10:20) 97.8 (APR 16 05:26) 98.8 (APR 15 17:29) Mon HR 96 (APR 16 10:48) 54 (APR 16 01:53) 96 (APR 16 10:48) Resp Rate 18 (APR 16 08:37) 16 (APR 15 17:29) 18 (APR 15:17) SBP H 157 (APR 16 10:20) 120 (APR 16 01:53) H 157 (APR 16 05:26) DBP 68 (APR 16 10:20) 66 (APR 16 01:53) 90 (APR 15:29) MAP 104 (APR 16 10:20) 81 (APR 16 01:53) 115 (APR 15 17:29) SpO2 96 (APR 16 10:48) 94 (APR 16 10:20) 100 (APR 15:17) Intake & Output Totals Last 24 Hours (7a-7a) Intake (20 Events) Medications (873.64 mL) Output (1 Events) Urine Voided (Volume) (1475 mL) Input Total: 873.64 mL Output Total: 1475 mL Balance: -601.36 mL General: No acute distress. HENT: Normocephalic. Neck: Supple. Respiratory: Lungs are clear to auscultation. Cardiovascular: No gallop, No edema. Gastrointestinal: Non-tender. Neurologic: Alert, Oriented. Psychiatric: Cooperative. Results Review Labs (Last four charted values) WBC 5.4 (APR 16) 4.8 (APR 15) 6.0 (APR 14) 8.4 (APR 13) HB L 7.8 (APR 16) L 7.6 (APR 15) L 7.2 (APR 14) L 7.4 (APR 13) HCT L 24.3 (APR 16) L 23.7 (MAR 16) L 22.3 (MAR 15) L 22.4 (APR 13) Plt L 106 (APR 16) L 106 (MAR 16) L 104 (MAR 15) L 106 (MAR 14) Na 137 (MAR 17) 141 (MAR 16) 139 (MAR 15) 137 (APR 13) K 4.1 (APR 16) 3.9 (MAR 16) L 3.2 (MAR 15) L 3.1 (APR 13) Cl 109 (APR 16) 108 (MAR 16) 108 (MAR 15) 107 (MAR 14) CO2 28 (APR 16) 28 (MAR 16) 26 (MAR 15) 26 (APR 13) BUN H 28 (AUG 17) H 29 (APR 15) H 32 (APR 14) H 26 (APR 13) Cr H 1.60 (APR 16) H 1.50 (APR 15) H 1.60 (APR 14) H 1.70 (APR 13) Glu R 93 (APR 16) 106 (MAR 16) H 163 (APR 14) H 222 (APR 13) Ca 8.4 (APR [...] H 1603 (APR 08) Impression and Plan JAVIER ON CKD. GFR IS BACK TO BASELINE. ANEMIA. PLAN; DISCHARGE OK WITH RENAL. PATIENT STATES THAT SHE WANTS TO F/U WITH [facility] NOW RATHER THAN [facility]. F/U APPT WITH [facility] 06/10/22 ARRANGED. WILL SIGN OFF NOW. documented in this encounter Plan of Treatment Not on file documented as of this encounter Visit Diagnoses Not on filedocumented in this encounter
--- OUTSIDE RECORDS SUMMARY | 2025-02-21 13:38 | XMS_ITS | Encounter Summary ---
Author Organization [employer] [facility] Address [address] [place] [address] Care Team Providers Care Mri Tech Name Role Phone Unavailable Primary Care Provider Unavailabl e Encounter Details Date Type Department Care Team (Late st Contact Info) Description 03/17/2022 Transcribed Document [facility] [place] [address] [place] [address] ProviderFlorentino MD [address] [place] [address] Social History Tobacco Use Types Packs/Day Years Used Date Smoking Tobacco: Never Assessed Comments Unknown Sex and Gender Information Value Date Recorded Sex Assigned at Not on file Legal Sex Female 1:44 PM CDT Gender Identity Not on file Sexual Orientation Not on file documented as of this encounter Miscellaneous Notes * Cerner Conversion Note - Florentino Lynne MD - 03/17/2022 8:50 AM CDT Patient: ALYSSA AZUL Age: 61 [...] History of obstructive sleep apnea / IMO [id number] / Confirmed, Active Problems (6) Chronic kidney disease (CKD), stage III (moderate) Diabetes History of obstructive sleep apnea Hyperlipidemia Hypertension Paraplegia Objective VS/Measurements Measurements from flowsheet : Measurements 03/17/2022 5:00 EDT Height Source Chart Height Entry Format [place]ain Height/Length, BERMUDIAN (ft) 5 ft Height/Length BERMUDIAN 4 Inch CLINICALHEIGHT 162.56 cm Routine Weight Source Bed scale Routine Weight Entry Format Metric Routine Weight, Kilograms 90 kg Routine Weight Calculation 90 kg Body Mass Index (BMI), Routine 34.06 kg/m2 Body Surface Area (BSA), Routine 1.95 m2 03/16/2022 5:00 EDT Height Source Chart Height Entry Format [place]ain Height/Length, BERMUDIAN (ft) 5 ft Height/Length BERMUDIAN 4 Inch CLINICALHEIGHT 162.56 cm Routine Weight Source Bed scale Routine Weight Entry Format [place]clain Routine Weight, Pounds 198 lb Routine Weight, Ounces 8 oz Routine Weight Calculation 90.23 kg Body Mass Index (BMI), Routine 34.14 kg/m2 Body Surface Area (BSA), Routine 1.95 m2 , Vitals Signs (last 24 hrs) Last Charted Minimum Maximum Temp 97.8 (MAR 17 05:37) 97.8 (MAR 17 05:37) H 99.8 (MAR 16 14:32) Apical HR 95 (MAR 16 18:36) 95 (MAR 16 18:36) 95 (MAR 16 18:36) Mon HR 72 (MAR 17 08:16) 72 (MAR 17 08:16) 98 (MAR 16 22:03) Resp Rate 20 (MAR 17 08:16) 16 (MAR 16 14:32) 20 (MAR 16 23:19) SBP 135 (MAR 17 05:37) 135 (MAR 17 05:37) H 165 (MAR 16 22:03) DBP 81 (MAR 17 05:37) 75 (MAR 16 14:32) 83 (MAR 16 22:03) MAP 102 (MAR 17 05:37) 98 (MAR 16 14:32) 102 (MAR 17 05:37) SpO2 98 (MAR 17 08:16) L 91 (MAR 16 20:11) 99 (MAR 16 20:16) Intake & Output Totals Last 24 Hours (7a-7a) Intake (2 Events) Medications (10.5 mL) Output (2 Events) Valenzuela Catheter (1675 mL) Input Total: 10.5 mL Output Total: 1675 mL Balance: -1664.5 mL General: Alert and oriented, No acute distress. Eye: Extraocular movements are intact, Normal conjunctiva. HENT: Normocephalic, Normal hearing, AT. Neck: Supple, Non-tender, No jugular venous distention. Respiratory: Lungs are clear to auscultation, Symmetrical chest wall expansion. Cardiovascular: Normal rate, Trace edema. Gastrointestinal: Soft, Non-tender, Non-distended. Genitourinary: + Valenzuela. Integumentary: Warm, Dry, [place]. Neurologic: Alert, Oriented, No focal deficits. Psychiatric: Cooperative, Appropriate mood & affect. Results Review Labs (Last four charted values) WBC 6.5 (MAR 17) 6.4 (MAR 16) 6.5 (MAR 15) 6.4 (MAR 14) HB L 7.6 (FEB 18) L 7.7 (FEB 17) L 8.0 (FEB 16) L 7.6 (FEB 15) HCT L 24.2 (MAR 17) L 24.3 (FEB 17) L 25.5 (FEB 16) L 24.5 (FEB 15) Plt L 135 (MAR 17) L 137 (FEB 17) L 147 (FEB 16) L 127 (FEB 15) Na 141 (FEB 18) 138 (FEB 17) 138 (FEB 16) 137 (FEB 15) K 4.4 (FEB 18) 4.1 (FEB 17) 3.8 (FEB 16) 3.7 (FEB 15) Cl 111 (FEB 18) 108 (FEB 17) 106 (FEB 16) 104 (FEB 15) CO2 22 (FEB 18) 22 (FEB 17) 23 (FEB 16) 25 (FEB 15) BUN H 51 (FEB 18) H 56 (FEB 17) H 53 (FEB 16) H 57 (FEB 15) Cr H 1.60 (FEB 18) H 1.70 (FEB 17) H 2.00 (FEB 16) H 2.20 (FEB 15) Glu R H 176 (FEB 18) H 133 (FEB 17) H 152 (FEB 16) H 139 (FEB 15) Ca 9.1 (FEB 18) 9.0 (FEB 17) 9.4 (FEB 16) 8.8 (FEB 15) Lactic 0.5 (MAR 09) 0.5 (MAR [...]
--- OUTSIDE RECORDS SUMMARY | 2025-02-21 13:38 | XMS_ITS | Encounter Summary ---
Author Organization [employer] [facility] Address [address] [place] [address] Care Team Providers Care Contract Loader Name Role Phone Unavailable Primary Care Provider Unavailabl e Encounter Details Date Type Department Care Team (Late st Contact Info) Description 04/09/2022 Transcribed Document [facility] [place] Family Medicine [address] [place] [address] ProviderFlorentino MD [address] [place] [address] Social History Tobacco Use Types Packs/Day Years Used Date Smoking Tobacco: Never Assessed Comments Unknown Sex and Gender Information Value Date Recorded Sex Assigned at Not on file Legal Sex Female 1:44 PM CDT Gender Identity Not on file Sexual Orientation Not on file documented as of this encounter Miscellaneous Notes * Cerner Conversion Note - Florentino Lynne MD - 04/09/2022 8:54 AM CDT Patient: ALYSSA AZUL Age: [...] mg, 300 mL, 300 mL/Hr, IV Piggyback, [id number] calcium gluconate: 1 Gram, 100 mL, 100 [...] mL: 500 mg, 16.67 mL/Hr, IV Piggyback, Z09LGan micafungin: 100 mg, 100 mL/Hr, IV Piggyback, I18VOpd phenylephrine injection 80 mg + NaCl 0.9% [...] 1 Tab, Oral, At Bedtime , Medications (35) Active Scheduled: (9) #NaCl 0.9% [...] *PREMIX* 600 mg 300 mL, IV Piggyback, [id number] meropenem + NaCl 0.9% 50 mL 500 mg, IV Piggyback, I60NRyn micafungin sodium 100 mg, IV Piggyback, D01YClt Continuous: (11) Dextrose 5% in Water 1,000 [...] mL, IV Piggyback, Q3H Problem list: Medical Diabetes / SNOMED CT 578831231 / Confirmed History of obstructive sleep apnea / IMO [id number] / Confirmed, Active Problems (6) Chronic kidney disease (CKD), stage III (moderate) Diabetes History of obstructive sleep apnea Hyperlipidemia Hypertension Paraplegia Objective VS/Measurements Measurements from flowsheet : Measurements 04/08/2022 8:19 EDT Height Source Estimated Height Entry Format [place] Height/Length, TURKMEN (ft) 5 ft Height/Length TURKMEN 6 Inch CLINICALHEIGHT 167.64 cm [place] Body Weight 59 kg Weight Source Bed scale Weight Entry Format Metric, kilograms Weight METRIC kg 82 kg CLINICALWEIGHT 82 kg Body Surface Area (BSA) 1.92 m2 Body Mass Index 29.2 kg/m2 HI 04/08/2022 5:58 EDT Height Source Estimated Height Entry Format [place] Height/Length, TURKMEN (ft) 5 ft Height/Length TURKMEN 8 Inch CLINICALHEIGHT 172.72 cm [place] Body Weight 63.45 kg Weight Source, ED Bed scale Weight Entry Format [place] Weight [place] lb 180 lb CLINICALWEIGHT 81.82 kg Body Surface Area (BSA) 1.96 m2 Body Mass Index 27.4 kg/m2 HI , Vitals Signs (last 24 hrs) Last Charted Minimum Maximum Mon HR 51 (APR 09 07:56) 39 (APR 09 03:30) 92 (APR 08 17:15) Resp Rate 20 (APR 09 07:56) 19 (APR 08 09:15) H 54 (APR 08 10:15) SBP 117 (APR 09 06:30) L 89 (APR 08 10:45) H 187 (APR 09 03:30) DBP L 58 (APR 09 06:30) L 46 (APR 08 09:03) 88 (APR 09 06:00) MAP 70 (APR 09 06:30) 47 (APR 08 11:00) 117 (APR 09 00:15) SpO2 100 (APR 09 07:56) 98 (APR 08 18:15) 100 (APR 08 09:03) Intake & Output Totals Last 24 Hours (7a-7a) Intake (85 Events) Continuous Infusions (780.6918 mL) Medications (5034.11 mL) Output (6 Events) Urine Voided (Volume) (680 mL) Input Total: 5814.8018 mL Output Total: 680 mL Balance: 5134.8018 mL General: Sedated on vent, Not alert and oriented. HENT: Normocephalic, Atraumatic . Neck: Supple, Non-tender, No jugular venous distention. Respiratory: Symmetrical chest wall expansion, Coarse breath sound on vent. Cardiovascular: Normal rate, Trace edema. Gastrointestinal: Soft, Non-tender, Non-distended. Genitourinary: + Valenzuela. Integumentary: Warm, Dry, [place]. Neurologic: Sedated on vent. . Results Review Labs (Last four charted values) WBC H 14.0 (APR 09) C 37.5 (APR 08) C 31.3 (APR 08) C 35.4 (APR 08) HB L 6.8 (APR 09) L 9.2 (APR 08) L 10.8 (APR 08) L 8.9 (APR 08) HCT L 19.5 (APR 09) L 28.6 (APR 08) 36.9 (APR 08) L 29.7 (APR 08) Plt 190 (APR 09) 317 (APR 08) 356 (APR 08) 321 (APR 08) Na 143 (APR 09) H 147 (APR 08) H 147 (APR 08) 144 (APR 08) K 4.0 (APR 09) 4.2 (APR 08) H 5.8 (APR 08) C 6.5 (APR 08) Cl 109 (APR 09) H 113 (APR 08) H 115 (APR 08) H 119 (APR 08) CO2 L 14 (APR 09) L 11 (APR 08) L 5 (APR 08) L 6 (APR 08) BUN H 48 (APR 09) H 60 (APR 08) C 82 (APR 08) C 83 (APR 08) Cr H 3.30 (APR 09) H 4.20 (APR 08) H 5.40 (APR 08) H 5.80 (APR 08) Glu R H 176 (APR 09) H 192 (APR 08) H 295 (APR 08) H 196 (APR 08) Ca L 7.3 (APR 09) L 7.2 (APR 08) L 7.3 (APR 08) L 7.7 (APR 08) Lactic C 3.5 (APR 09) C 7.0 (APR 09) C 8.7 (APR 08) C 8.5 (APR 08) PT 11.1 (APR 09) 10.5 (APR 08) INR 1.0 (APR 09) 1.0 (APR 08) AST 25 (APR 08) 15 (APR 08) ALT 18 (APR 08) 19 (APR 08) ALK P 81 (APR 08) 95 (APR 08) T Bili 0.6 (APR 08) 0.6 (APR 08) PTN 6.4 (APR 08) 8.1 (APR 08) ALB L 2.3 (APR 09) L 2.5 (APR 08) L 2.5 (APR 08) L 3.0 (APR 08) Lipase H 1965 (APR 09) H 1603 (APR 08) Impression and Plan 1- JAVIER on CKD stage III - Likely prerenal azotemia/ ATN secondary to septic shock. 2- CKD 3: Baseline creatinine around 1.6. Patient follows with [facility]. Solitary kidney 3- Sepsis 4- Hypernatremia- improved 5- Anemia 6- Severe Hyperkalemia - improving. 7- Severe Metabolic acidosis - improving. 8- Paraplegic 9- UTI- hydronephrosis Plan: - Continue with CRRT, UF 0-25 ml/hr as tolerated. Will increase dialysate to 1250 ml/hr, replacement fluid will decrease to 750 ml/hr. Blood flow will increase to 220. FF now 20% with preceding changes. - Continue to wean off Pressors - Avoid nephrotoxic agents. - Adjust meds for GFR 30 while on CRRT - Monitor H/H and transfuse for Hgb less than 7.0 High risk and complexity patient. Discuss with RN at bedside. Electronically signed by Bruce Shell Conversion Assembler Installer Structures Sohaner at 12/21/2022 5:06 PM CDT documented in this encounter Plan of Treatment Not on file documented as of this encounter Visit Diagnoses Not on filedocumented in this encounter
--- OUTSIDE RECORDS SUMMARY | 2025-02-21 13:38 | XMS_ITS | Encounter Summary ---
Author Organization [employer] [facility] Address [address] [place] [address] Care Team Providers Care Conveyor Worker Name Role Phone Unavailable Primary Care Provider Unavailabl e Encounter Details Date Type Department Care Team (Late st Contact Info) Description 05/01/2022 Transcribed Document [facility] [place] [address] [place] [address] ProviderFlorentino MD [address] [place] [address] Social History Tobacco Use Types Packs/Day Years Used Date Smoking Tobacco: Never Assessed Comments Unknown Sex and Gender Information Value Date Recorded Sex Assigned at Not on file Legal Sex Female 1:44 PM CDT Gender Identity Not on file Sexual Orientation Not on file documented as of this encounter Miscellaneous Notes * Cerner Conversion Note - Historical ProviderMD - 05/01/2022 2:00 AM CDT Acid Pump Operator Details Entered On: 05/01/2022 3:13 EDT Performed On: 05/01/2022 2:00 EDT by Casey Palacios Non Emp [...] No Casey Palacios Non Emp RN - 05/01/2022 3:13 EDT documented in this encounter Plan of Treatment Not on file documented as of this encounter Visit Diagnoses Not on filedocumented in this encounter
--- OUTSIDE RECORDS SUMMARY | 2025-02-21 13:38 | XMS_ITS | Encounter Summary ---
Author Organization [facility] Address [address] [place] [address] Care Team Providers Care Comber Operator Name Role Phone Unavailable Primary Care Provider Unavailabl e Encounter Details Date Type Department Care Team (Late st Contact Info) Description 03/17/2022 Transcribed Document [facility] [place] [facility] [place] [address] ProviderFlorentino MD [facility] [place] [address] Social History Tobacco Use [...] Note - Florentino Lynne MD - 03/17/2022 2:18 PM CDT UM Authorization Entered On: 03/17/2022 14:19 EDT Performed On: 03/17/2022 14:18 EDT by SARAH MORALES RN Primary Insurance Authorization Authorization and Policy Numbers : Insurance 1 Health Plan: [facility] Policy Number: [id number] Authorization Number: Insurance Primary Name : [facility] Policy Number: [id number] Authorization Number: Authorization Status-Primary : Partially approved Reference Number-Primary : [id number] Number of Days Authorized-Primary : 14 Day(s) Authorized Service Begin Date-Primary : 03/01/2022 EDT Authorized Service End Date-Primary : 03/15/2022 EDT Authorization Comments-Primary : Discussed with BARNEY Olivo and she stated facility that accepted patient has now declined patient. Informed Dr. Luzma Cabello of IP c/s denial. Awaiting if wants to attempt p2p. Historical Authorization Comments-Primary : Comment 1: Sent to Dr. Luzma cabello for p2p. (SARAH MORALES RN 03/17/2022 13:48) Comment 2: Partially approved per fax 03/14/22 @ 1021. Denied continued inpatient DOS forward. Placed in Denials 2021 folder. (Mallory Sanchez, District Court Judge 03/14/2022 10:45) Comment 3: c/s auth req faxed via [employer] 03/12-03/13 (JOSEPH GUTIERREZ, RN-UTILIZATION MANAGEMENT REVIEW NON-EXEMPT 03/13/2022 16:27) Comment 4: CLINICAL UPDATE FAXED VIA [employer] 03/05-03/10 ([address], PRIMO 03/10/2022 13:19) Comment 5: UPLOADED CLINICALS VIA [employer] AND FAXED TO [facility]/ AWAITING CALLBACK/ REFERENCE # LISTED ON FRONT PAGE. (Jelani Anne, rosin barrel filler 03/04/2022 14:03) Comment 6: Authorized per fax 03/02/22 @ 1335. Approved [facility] admission. Next reivew due 03/10. -Hannah Barronjunikenneth. (Mallory Sanchez, District Court Judge 03/04/2022 11:20) Comment 7: Rec vm from Hannah at [facility] on 1753 line on 03/02/22 at 8:42am She is req clinical be sent in Transf VM to [facility] so she could follow up (SHERIF LYNCH, Outside Sales Associate 03/04/2022 09:42) Comment 8: auth # per star notes, faxed clinicals via [employer] 03/01 (JOSEPH GUTIERREZ, RN-UTILIZATION MANAGEMENT REVIEW NON-EXEMPT 03/02/2022 11:28) SARAH MORALES, PRIMO - 03/17/2022 14:18 EDT Electronically signed by Sumaya [facility] Conversion Throat Cutter Cerjami at 12/21/2022 5:05 PM CDT documented in this encounter Plan of Treatment Not on file documented as of this encounter Visit Diagnoses Not on filedocumented in this encounter
--- OUTSIDE RECORDS SUMMARY | 2025-02-21 13:38 | XMS_ITS | Encounter Summary ---
Author Organization [employer] Address [address] [place] [address] Care Team Providers Care Powerhouse Helper Name Role Phone Unavailable Primary Care Provider Unavailabl e Encounter Details Date Type Department Care Team (Late st Contact Info) Description 05/01/2022 Transcribed Document [facility] Family Medicine [address] [place] [address] ProviderFlorentino MD [address] [place] [address] Social History Tobacco Use Types Packs/Day Years Used Date Smoking Tobacco: Never Assessed Comments Unknown Sex and Gender Information Value Date Recorded Sex Assigned at Not on file Legal Sex Female 1:44 PM CDT Gender Identity Not on file Sexual Orientation Not on file documented as of this encounter Miscellaneous Notes * Cerner Conversion Note - Florentino ProviderMD - 05/01/2022 4:34 PM CDT Treatment Intervention, PT Entered On: 05/10/2022 13:34 EDT Performed On: 05/10/2022 13:27 EDT by REGAN SILVA PT General Information, PT Visit Type, PT : Treatment Note Patient Orders : Order Date Order Ordering 04/30/2022 11:26 Physical Therapy Eval and Treat Ordered By: MICHELLE LORA MD-INT 05/01/2022 11:32 Consult to Physical Therapy Ordered By: MICHELLE LORA MD-INT 05/01/2022 16:34 Physical Therapy Additional Tx Ordered By: BOBBY HERNANDEZ PT 05/02/2022 14:36 PT Additional Treatment Ordered By: JAH MCGINNIS, PT Active Diagnoses : 05/09/2022 12:00 Sepsis, unspecified organism 2022 02:25 Pressure ulcer of unspecified buttock, unspecified stage 2022 01:57 Chronic kidney disease, stage 3 unspecified 2022 01:56 Other symptoms and signs involving the genitourinary system 04/28/2022 12:00 Hypotension, unspecified 04/28/2022 12:00 Type 2 diabetes mellitus without complications Therapy Diagnosis, PT : impaired mobility due to generalized weakness and fatigue; L greater trochanter wound Admission Date : 2022 00:16 Co-treated by, PT : a/c technician/aide Personal Devices : Personal Devices Glasses Assistive Devices : Assistive Devices No Devices Recorded REGAN SILVA, PT - 05/10/2022 13:27 EDT General Status Patient Received Status : Supine in bed, HOB elevated Treatment Start Time : 05/10/2022 13:00 EDT Patient Left Status : Supine in bed, RN/PCT informed, All needs met and within reach, Other: HOB elevtaed 15 degrees RN/PCT Informed Comment : Manuel Carolyn Treatment End Time : 05/10/2022 13:25 EDT Treatment Time : 25 Minute(s) Actual Treatment Time : 25 Minute(s) REGAN SILVA, PT - 05/10/2022 13:27 EDT Functional Mobility Mobility Grid Bed Roll Right : Rehab Minimal assistance REGAN SILVA, PT - 05/10/2022 13:27 EDT Cognitive Treatment, PT Orientation : Oriented x 4 REGAN SILVA, PT - 05/10/2022 13:27 EDT Indication Assesessment, PT Physical Therapy Indicated : Yes REGAN SILVA, PT - 05/10/2022 13:27 EDT Plan of Care, PT PT Tx Plan/Goals Established w Patient : Yes REGAN SILVA PT - 05/10/2022 13:27 EDT Short Term Goals Mobility/Bed Mobility STG PT Grid Goal #1 Activity : Supine to sit Assist : Assist, minimal Date to Meet : 05/09/2022 EDT Goal Status : Goal met Date Met : 05/08/2022 EDT REGAN SILVA, PT - 05/10/2022 13:27 EDT Transfer STG Grid Goal #1 Destination : Chair, with arms Type : Other: sliding board if not too much pressure on wound / sit pivot Assist : Assist, maximal Date to Meet : 05/09/2022 EDT Goal Status : Goal met Date Met : 05/04/2022 EDT REGAN SILVA, PT - 05/10/2022 13:27 EDT Store Manager Goals Mobility/Bed Mobility LTG PT Grid Goal #1 Goal #3 Activity : Supine to sit Assist : Supervision or set-up Date to Meet : 05/16/2022 EDT Goal Status : Goal met Date Met : 05/08/2022 EDT Comment : see below REGAN SILVA, PT - 05/10/2022 13:27 EDT REGAN SILVA, PT - 05/10/2022 13:27 EDT Transfer LTG Grid Goal #1 Goal [...] 05/16/2022 EDT Goal Status : Goal met Progressing, continue Progressing, continue Date Met : 05/09/2022 EDT Comment : pt reports this is how she transfers at baseline REGAN SILVA, PT - 05/10/2022 13:27 EDT REGAN SILVA, PT - 05/10/2022 13:27 EDT REGAN SILVA, PT - 05/10/2022 13:27 EDT BalanceLTG Grid Goal #1 Activity : Sitting, dynamic Assist : Supervision or set-up Date to Meet : 05/16/2022 EDT Goal Status : Progressing, continue REGAN SILVA, PT - 05/10/2022 13:27 EDT Other PT LTG Grid Goal #1 Other : Patient's L greater trochanter wound will be 100% closed and blanchable with normalized skin texture and color Date to Meet : 05/15/2022 EDT Goal Status : Progressing, continue REGAN SILVA, PT - 05/10/2022 13:27 EDT Treatment Note Subjective Comment : Patient agreeable to treatment Additional Objective Information : Prior to PTx, patient lying supine and rolled into R sidelying. Patient required mod A to roll to [...] that contains a mild amount of slough. . US MIST sterilizer machine operator and MIST threapy performed x [...] min A to roll and reposition patient's Legs Assessment : 90% wound bed pink clean and granualtion tissue Plan for Treatment : continue 3X/week wound care on Thursday, and Thursday schedule REGAN SILVA PT - 05/10/2022 13:27 EDT Pain Assessment Pain Scaled Used : 0-10 Pain scale Duration : 0 REGAN SILVA PT - 05/10/2022 13:27 EDT Image 1 - Images currently included in the form version of this document have not been included in the text rendition version of the form. [facility] PT Charges Mist Therapy : 1 PT EA ADDL 15 MIN NO CHARGE : 1 REGAN SILVA PT - 05/10/2022 13:27 EDT documented in this encounter Plan of Treatment Not on file documented as of this encounter Visit Diagnoses Not on filedocumented in this encounter
--- OUTSIDE RECORDS SUMMARY | 2025-02-21 13:38 | XMS_ITS | Encounter Summary ---
Author Organization [facility] Address [address] [place] [address] Care Team Providers Care Meter Inspector Name Role Phone Unavailable Primary Care Provider Unavailabl e Encounter Details Date Type Department Care Team (Late st Contact Info) Description 03/13/2022 Transcribed Document [facility] [place] Family Medicine [address] [place] [address] ProviderFlorentino MD [address] [place] [address] Social History Tobacco Use Types Packs/Day Years Used Date Smoking Tobacco: Never Assessed Comments Unknown Sex and Gender Information Value Date Recorded Sex Assigned at Not on file Legal Sex Female 1:44 PM CDT Gender Identity Not on file Sexual Orientation Not on file documented as of this encounter Miscellaneous Notes * Cerner Conversion Note - Florentino Lynne MD - 03/13/2022 4:27 PM CDT UM Authorization Entered On: 03/13/2022 16:30 EDT Performed On: 03/13/2022 16:27 EDT by JOSEPH GUTIERREZ RN-UTILIZATION MANAGEMENT REVIEW NON-EXEMPT Primary Insurance Authorization Authorization and Policy Numbers : Insurance 1 Health Plan: [facility] Policy Number: [id number] Authorization Number: Insurance Primary Name : [facility] Policy Number: [id number] Authorization Number: Authorization Status-Primary : Drg approved Reference Number-Primary : [id number] Number of Days Authorized-Primary : 8 Day(s) Authorized Service Begin Date-Primary : 03/01/2022 EDT Authorized Service End Date-Primary : 03/09/2022 EDT Authorization Comments-Primary : c/s auth req faxed via [employer] 03/12-03/13 Historical Authorization Comments-Primary : Comment 1: CLINICAL UPDATE FAXED VIA [employer] 03/05-03/10 (Sh[address]pi [address], RN 03/10/2022 13:19) Comment 2: UPLOADED CLINICALS VIA [employer] AND FAXED TO [facility]/ AWAITING CALLBACK/ REFERENCE # LISTED ON FRONT PAGE. (Jelani Anne, bridge expert 03/04/2022 14:03) Comment 3: Authorized per fax 03/02/22 @ 1335. Approved DRG admission. Next reivew due 03/10. -Hannah Jonathan. (Mallory Sanchez, Electrical Engineering Teacher 03/04/2022 11:20) Comment 4: Rec vm from Hannah at [facility] on [id number] line on 03/02/22 at 8:42am She is req clinical be sent in Transf VM to [facility] so she could follow up (SHERIF LYNCH, Ski Instructor 03/04/2022 09:42) Comment 5: auth # per star notes, faxed clinicals via [employer] 03/01 (JOSEPH GUTIERREZ, PRIMO-UTILIZATION MANAGEMENT REVIEW NON-EXEMPT 03/02/2022 11:28) JOSEPH GUTIERREZ RN-UTILIZATION MANAGEMENT REVIEW NON-EXEMPT - 03/13/2022 16:27 EDT documented in this encounter Plan of Treatment Not on file documented as of this encounter Visit Diagnoses Not on filedocumented in this encounter
--- OUTSIDE RECORDS SUMMARY | 2025-02-21 13:39 | XMS_ITS | Encounter Summary ---
Author Organization [employer] Address [address] [place] [address] Care Team Providers Care Nursery Manager Name Role Phone Unavailable Primary Care Provider Unavailabl e Encounter Details Date Type Department Care Team (Late st Contact Info) Description 03/17/2022 Transcribed Document [facility] [place] Family Medicine [address] [place] [address] ProviderFlorentino MD [address] [place] [address] Social History Tobacco Use Types Packs/Day Years Used Date Smoking Tobacco: Never Assessed Comments Unknown Sex and Gender Information Value Date Recorded Sex Assigned at Not on file Legal Sex Female 1:44 PM CDT Gender Identity Not on file Sexual Orientation Not on file documented as of this encounter Miscellaneous Notes * Cerner Conversion Note - Historical ProviderMD - 03/17/2022 2:00 AM CDT Fitter Type Bar And Segment Details Entered On: 03/17/2022 2:24 EDT Performed On: 03/17/2022 2:00 EDT by Maddison Sepulveda Lpn Order Details Transport Mode Order Detail : Bed (including specialty) Isolation Precautions Order Detail : Standard Precautions Order Detail : 0 Lift/Transfer : Maximal assist Central Line Order Detail : Yes Room Service : Not Appropriate Arterial Line : Yes Patient Needs Meds Crushed/Liquid : No Maddison Sepulveda Lpn - 03/17/2022 2:24 EDT documented in this encounter Plan of Treatment Not on file documented as of this encounter Visit Diagnoses Not on filedocumented in this encounter
--- OUTSIDE RECORDS SUMMARY | 2025-02-21 13:39 | XMS_ITS | Encounter Summary ---
Author Organization [employer] Address [address] [place] [address] Care Team Providers Care Eating Disorder Specialist Name Role Phone Unavailable Primary Care Provider Unavailabl e Encounter Details Date Type Department Care Team (Late st Contact Info) Description 02/27/2022 Transcribed Document [facility] [place] Family Medicine [address] [place] [address] ProviderFlorentino MD [address] [place] [address] Social History Tobacco Use Types Packs/Day Years Used Date Smoking Tobacco: Never Assessed Comments Unknown Sex and Gender Information Value Date Recorded Sex Assigned at Not on file Legal Sex Female 1:44 PM CDT Gender Identity Not on file Sexual Orientation Not on file documented as of this encounter Miscellaneous Notes * Cerner Conversion Note - Florentino Lynne MD - 02/27/2022 4:15 PM CDT Patient: ALYSSA AZUL Age: 61 years Sex: Female : 1960 Associated Diagnoses: None Author: HIGINIO AREVALO MD-INF Antibiotics: Zosyn CC: Sacral wound Subjective: Patient without fevers now moved out to floor without any fever some elevated blood pressure on BiPAP chronically ill-appearing Objective: Vitals Signs (last 24 hrs) Last Charted Minimum Maximum Temp 97.5 (FEB 27 13:57) 97.0 (FEB 27 08:00) 98.0 (FEB 26 20:00) Mon HR 66 (FEB 27 15:05) 57 (FEB 27 08:30) 75 (FEB 27 13:57) Resp Rate H 30 (FEB 27 15:05) L 10 (FEB 26 20:30) H 45 (CATRACHITA 29 20:20) SBP H 162 (CATRACHITA 30 13:57) 110 (JAN 30 02:00) H 162 (CATRACHITA 30 13:57) DBP 85 (CATRACHITA 30 13:57) L 59 (JAN 30 02:00) 88 (JAN 30 09:00) MAP 99 (JAN 30 13:57) 78 (JAN 30 02:00) 112 (FEB 26 16:30) SpO2 98 (JAN 30 15:05) L 89 (JAN 29 20:24) 100 (JAN 30 01:00) PE: General: Patient will awaken now on [...] LABS: Labs (Last four charted values) WBC 9.0 (CATRACHITA 30) 9.6 (CATRACHITA 29) H 10.4 (CATRACHITA 28) 8.9 (CATRACHITA 27) HB L 8.6 (CATRACHITA 30) L 8.1 (CATRACHITA 29) L 8.3 (CATRACHITA 28) L 7.5 (CATRACHITA 27) HCT L 27.5 (CATRACHITA 30) L 25.8 (CATRACHITA 29) L 25.5 (CATRACHITA 28) L 23.1 (CATRACHITA 27) Plt 190 (CATRACHITA 30) 203 (CATRACHITA 29) 246 (CATRACHITA 28) 217 (CATRACHITA 27) Na H 148 (CATRACHITA 30) H 147 (CATRACHITA 29) 146 (CATRACHITA 28) 143 (CATRACHITA 27) K L 3.2 (CATRACHITA 30) 3.6 (CATRACHITA 29) L 3.4 (CATRACHITA 28) 3.7 (CATRACHITA 27) Cl H 113 (CATRACHITA 30) 112 (CATRACHITA 29) 110 (CATRACHITA 28) 110 (CATRACHITA 27) CO2 22 (CATRACHITA 30) 23 (CATRACHITA 29) L 20 (CATRACHITA 28) L 20 (CATRACHITA 27) BUN H 50 (CATRACHITA 30) H 50 (CATRACHITA 29) H 48 (CATRACHITA 28) H 49 (CATRACHITA 27) Cr H 3.12 (CATRACHITA 30) H 3.30 (CATRACHITA 29) H 3.28 (CATRACHITA 28) H 3.17 (CATRACHITA 27) Glu R 97 (CATRACHITA 30) H 153 (CATRACHITA 29) H 178 (CATRACHITA 28) H 217 (CATRACHITA 27) Ca 8.5 (CATRACHITA 30) L 8.2 (CATRACHITA 29) L 8.1 (CATRACHITA 28) L 7.3 (CATRACHITA 27) Lactic 0.9 (CATRACHITA 25) 0.7 (CATRACHITA 25) AST 13 (JAN 29) 13 (CATRACHITA 27) 14 (CATRACHITA 26) 17 (CATRACHITA 24) ALT 15 (CATRACHITA 29) 16 (CATRACHITA 27) 16 (CATRACHITA 26) 21 (CATRACHITA 24) ALK P 51 (CATRACHITA 29) 49 (CATRACHITA 27) 53 (CATRACHITA 26) 76 (CATRACHITA 24) T Bili 0.4 (CATRACHITA 29) 0.4 (CATRACHITA 27) 0.4 (CATRACHITA 26) 0.3 (CATRACHITA 24) PTN L 6.1 (CATRACHITA 29) L 5.4 (CATRACHITA 27) L 5.9 (CATRACHITA 26) L 6.3 (CATRACHITA 24) ALB L 1.9 (CATRACHITA 29) L 1.7 (CATRACHITA 27) L 1.9 (CATRACHITA 26) L 1.9 (CATRACHITA 24) MICRO: Pending Outside BAL with gram-negative diplococci IMAGING: Radiology Results (Last 48 hours) [id number] -- 02/22/2022 00:01 CR Chest 1 Vw Portable (02/26/2022 09:17) Result: PORTABLE CHEST 02/26/2022 8:40 AM HISTORY: Cardiac arrest.COMPARISON: Previous day .FINDINGS: The heart is stable in size. The lung gordon demonstrate nosignificant change in the perihilar opacities and moderate bilateralpleural effusions. There is no pneumothorax. There has been intervalextubation. The support devices are in good position.IMPRESSION: There [...] post I&D x3 at [facility]. -Acute hypoxic respiratory failure: Pneumonia & edema -Aspiration pneumonia: clear evidence of aspiration - Pulmonary edema - Cardiac arrest at outside hospital prior to transfer - Metabolic acidosis: improved - Acute kidney failure on reported CKD, unknown stage - Acute encephalopathy: now sedated -Neutrophilic leukocytosis: resolved - Anemia - Chronic paraplegia - Obesity - DM2 RECOMMENDATIONS/PLANS: -Continue supportive care now on BiPAP and wound VAC in place - Follow CBC, CMP, CRP, - Continue Zosyn, renally dosed further broad-spectrum coverage for soft tissue infection and now aspiration pneumonia, patient stable on antibiotics wound VAC in place remains now off vent documented in this encounter Plan of Treatment Not on file documented as of this encounter Visit Diagnoses Not on filedocumented in this encounter
--- OUTSIDE RECORDS SUMMARY | 2025-02-21 13:39 | XMS_ITS | Encounter Summary ---
Author Organization [employer] Address [address] [place] [address] Care Team Providers Care Care Director Name Role Phone Unavailable Primary Care Provider Unavailabl e Encounter Details Date Type Department Care Team (Late st Contact Info) Description 02/27/2022 Transcribed Document [facility] [place] Family Medicine [address] [place] [address] ProviderFlorentino MD [facility] [address] Social History Tobacco Use Types Packs/Day Years Used Date Smoking Tobacco: Never Assessed Comments Unknown Sex and Gender Information Value Date Recorded Sex Assigned at Not on file Legal Sex Female 1:44 PM CDT Gender Identity Not on file Sexual Orientation Not on file documented as of this encounter Miscellaneous Notes * Cerner Conversion Note - Florentino Lynne MD - 02/27/2022 4:41 PM CDT Patient: ALYSSA AZUL Age: 61 years Sex: Female : 1960 Associated Diagnoses: None Author: CHICA RAZA MD-FAM Subjective 02/27/22 on opti flow weak not feeling well Health Status Allergies: Allergic Reactions (Selected) No Known Allergies, Allergies (1) Active Reaction No Known Allergies None Documented Current medications: (Selected) Inpatient Medications Ordered Chloraseptic Menthol 1.4% topical spray: 1 [place], Oral, Q2H, PRN: Sore Throat Dextrose 50% injection: 12.5 Gram, IV Push, Q15Min, PRN: Other (See Comment) Dextrose 50% injection: 25 Gram, IV Push, Q15Min, PRN: Other (See Comment) Zosyn + Sodium Chloride 0.9% intravenous solution 50 mL: 2.25 Gram, 16.67 mL/Hr, IV Piggyback, Q8HInt acetaminophen: 650 mg, Oral, Q6H, PRN: Pain (Mild 1-3) albuterol 2.5 mg/3 mL (0.083%) inhalation solution: 3 mL, Nebulized Inhalation, RT_Q4H, PRN: Shortness of Breath albuterol-ipratropium 2.5 mg-0.5 mg/3 mL inhalation solution: 3 mL, Nebulized Inhalation, RT_Q4H bisoprolol: 5 mg, Oral, Daily calcium gluconate: 1 Gram, 50 mL, 50 mL/Hr, IV Piggyback, Daily, PRN: Other (See Comment) calcium gluconate: 2 Gram, 100 mL, 100 mL/Hr, IV Piggyback, Daily, PRN: Other (See Comment) calcium gluconate: 2 Gram, 100 mL, 100 mL/Hr, IV Piggyback, Q12H, PRN: Other (See Comment) glucagon: 1 mg, IntraMuscular, Q15Min, PRN: Other (See Comment) glucose 4 g oral tablet, chewable: 16 Gram, 4 Tab, Chew, Q15Min, PRN: Other (See Comment) glucose 40% oral gel: 15 Gram, 37.5 mL, Oral, Q15Min, PRN: Other (See Comment) heparin: 5,000 Units, SubCutaneous, Q8H hydrALAZINE: 10 mg, IV Push, Q6H, PRN: Hypertension insulin glargine: 14 Units, SubCutaneous, BID insulin lispro sliding scale: Scale A:, SubCutaneous, AC and at Bedtime magnesium sulfate: 2 Gram, 50 mL, 25 mL/Hr, IV Piggyback, Daily, PRN: Other (See Comment) magnesium sulfate: 2 Gram, 50 mL, 25 mL/Hr, IV Piggyback, Q2H, PRN: Other (See Comment) ondansetron: 4 mg, IV Push, Q6H, PRN: Nausea/Vomiting pantoprazole: 40 mg, IV Push, Daily potassium bicarbonate 20 mEq oral tablet, effervescent: 20 mEq, 1 Tab, Feeding Tube, Q2H, PRN: Other (See Comment) potassium bicarbonate 20 mEq oral tablet, effervescent: 20 mEq, 1 Tab, Oral, 1-Time potassium bicarbonate 20 mEq oral tablet, effervescent: 60 mEq, 3 Tab, Feeding Tube, Q2H, PRN: Other (See Comment) potassium chloride 10 mEq/50 mL intravenous solution: 10 mEq, 100 mL, 100 mL/Hr, IV Piggyback, Q1H, PRN: Other (See Comment) sodium phosphate: 15 mMole, 5 mL, 50 mL/Hr, IV Piggyback, Daily, PRN: Other (See Comment) sodium phosphate: 15 mMole, 5 mL, 50 mL/Hr, IV Piggyback, Q6H, PRN: Other (See Comment) traMADol: 50 mg, Oral, Q6H, PRN: Pain (Moderate 4-6) Documented Medications Documented [place]-3 1000 mg oral capsule: 1 Cap, Oral, [...] tablet: 1 Tab, Oral, Daily, 0 Refill(s), Home Medications (9) Active alendronate weekly 70 mg, Oral, Weekly bisoprolol 5 mg oral tablet 5 mg = 1 Tab, Oral, Daily dapagliflozin 10 mg oral tablet 10 mg = 1 Tab, Oral, Daily ferrous sulfate 325 mg (65 mg elemental iron) oral tablet 325 mg = 1 Tab, Oral, BID furosemide 40 mg oral tablet 40 mg = 1 Tab, Oral, Daily lisinopril 40 mg oral tablet 40 mg = 1 Tab, Oral, Daily metFORMIN 1000 mg oral tablet 1,000 mg = 1 Tab, Oral, BID With Meals [place]-3 1000 mg oral capsule 1,000 mg = 1 Cap, Oral, QID pravastatin 40 mg oral tablet 40 mg = 1 Tab, Oral, Daily , Medications (29) Active Scheduled: (8) albuterol-ipratropium inh 3 mL 3 mL, Nebulized Inhalation, RT_Q4H bisoprolol 5 mg tab 5 mg 1 Tab, Oral, Daily heparin 5,000 units/1 mL inj 5,000 Units 1 mL, SubCutaneous, Q8H insulin glargine 1 unit/0.01 mL inj 14 Units 0.14 mL, SubCutaneous, BID insulin lispro 1 unit/0.01 mL inj Scale A:, SubCutaneous, AC and at Bedtime pantoprazole 40 mg inj 40 mg, IV Push, Daily piperacillin-tazobactam + NaCl 0.9% *MBP* 50 mL 2.25 Gram, IV Piggyback, Q8HInt potassium bicarb efferves 20 mEq dis tab 20 mEq 1 Tab, Oral, 1-Time Continuous: (0) PRN: (21) acetaminophen 325 mg tab 650 mg 2 Tab, Oral, Q6H albuterol 0.083% inh soln 3 mL 3 mL, Nebulized Inhalation, RT_Q4H calcium gluconate 1 Gram 50 mL, IV Piggyback, Daily calcium gluconate 2 Gram 100 mL, IV Piggyback, Daily calcium gluconate 2 Gram 100 mL, IV Piggyback, Q12H dextrose 50% 25 g/50 mL inj syr [...] 2 Gram 50 mL, IV Piggyback, Q2H ondansetron 4 mg/2 mL inj 4 mg 2 mL, IV Push, Q6H phenol 1.4% throat spray 1 [place], Oral, Q2H potassium bicarb efferves 20 mEq dis tab 20 mEq 1 Tab, Feeding Tube, Q2H potassium bicarb efferves 20 mEq dis tab 60 mEq 3 Tab, Feeding Tube, Q2H potassium chloride 10 mEq 100 mL, IV Piggyback, Q1H sodium phosphate 15 mMole 5 mL, IV Piggyback, Daily sodium phosphate 15 mMole 5 mL, IV Piggyback, Q6H traMADol 50 mg tab 50 mg 1 Tab, Oral, Q6H Problem list: Medical History of obstructive sleep apnea / IMO [id number] / Confirmed, Active Problems (1) History of obstructive sleep apnea Objective Intake and Output Intake & Output Totals Last 24 Hours (7a-7a) Intake (19 Events) Medications (154.97 mL) Enteral Additional Water Given (1800 mL) Output (10 Events) Ostomy Output, Genitourinary: (1770 mL) Input Total: 1954.97 mL Output Total: 1770 mL Balance: 184.97 mL VS/Measurements Vitals Signs (last 24 hrs) Last Charted Minimum Maximum Temp 97.5 (FEB 27 13:57) 97.0 (FEB 27 08:00) 98.0 (FEB 26 20:00) Mon HR 66 (FEB 27 15:05) 57 (FEB 27 08:30) 75 (FEB 27 13:57) Resp Rate H 30 (FEB 27 15:05) L 10 (FEB 26 20:30) H 45 (FEB 26 20:20) SBP H 162 (FEB 27 13:57) 110 (FEB 27 02:00) H 162 (FEB 27 13:57) DBP 85 (FEB 27 13:57) L 59 (FEB 27 02:00) 88 (FEB 27 09:00) MAP 99 (FEB 27 13:57) 78 (FEB 27 02:00) 110 (FEB 27 00:30) SpO2 98 (FEB 27 15:05) L 89 (FEB 26 20:24) 100 (FEB 27 01:00) General: No acute distress, lying in bed . Eye: Pupils are equal, round and reactive to light, Normal conjunctiva. HENT: Normocephalic, old heeled trach site in place. Neck: Supple. Respiratory: on optiflow at 35%. no wheezing or rhonchi. Cardiovascular: Normal rate, Regular rhythm, No edema. Gastrointestinal: RLQ urostomy in place with clear urine. Musculoskeletal: LEFTlateral hip wound vac in place. Neurologic: Alert, Oriented, moving upper extremities, flexion contractures in feet and flaccid paralysis in legs . Psychiatric: Cooperative, Appropriate mood & affect. Results Review General results Interpretation: CATRACHITA 30 03:37 H 148 H 113 H 50 / 97 L 3.2 22 H 3.12 \ CATRACHITA 30 03:37 \ L 8.6 / 9.0 190 / L 27.5 \ Labs (Last four charted values) WBC 9.0 [...] 25) 0.7 (CATRACHITA 25) AST 13 (CATRACHITA 29) 13 (CATRACHITA 27) 14 (CATRACHITA 26) 17 (CATRACHITA 24) ALT 15 (CATRACHITA 29) 16 (CATRACHITA 27) 16 (CATRACHITA 26) 21 (CATRACHITA 24) ALK P 51 (CATRACHITA 29) 49 (CATRACHITA 27) 53 (CATRACHITA 26) 76 (CATRACHITA 24) T Bili 0.4 (CATRACHITA 29) 0.4 (FEB 24) 0.4 (FEB 23) 0.3 (FEB 21) PTN L 6.1 (FEB 26) L 5.4 (FEB 24) L 5.9 (FEB 23) L 6.3 (FEB 21) ALB L 1.9 (FEB 26) L 1.7 (FEB 24) L 1.9 (FEB 23) L 1.9 (FEB 21) Radiology Results (Last 48 hours) [id number] -- 02/22/2022 00:01 CR Chest 1 Vw [...] appreciated- recommend wound care consult - d/w furniture sales associate today- wound vac applied on 02/24 pneumonia [...] the patient due to divert status. Summary [facility] stay: patient admitted to [facility] on 02/17/22, temp in ER of [...] necrosis. no pathology sent. Patient transferred to [facility] at midnight on 02/22. 02/22: extubated, given [...] bedside. on optiflow IV Zosyn tele today time spent 35 min documented in this encounter Plan of Treatment Not on file documented as of this encounter Visit Diagnoses Not on filedocumented in this encounter
--- OUTSIDE RECORDS SUMMARY | 2025-02-21 13:39 | XMS_ITS | Encounter Summary ---
Author Organization [employer] Address [address] [place] [address] Care Team Providers Care Cereal Popper Name Role Phone Unavailable Primary Care Provider Unavailabl e Encounter Details Date Type Department Care Team (Late st Contact Info) Description 03/16/2022 Transcribed Document [facility] [place] Family Medicine [address] [place] [address] ProviderFlorentino MD [address] [place] [address] Social History Tobacco Use Types Packs/Day Years Used Date Smoking Tobacco: Never Assessed Comments Unknown Sex and Gender Information Value Date Recorded Sex Assigned at Not on file Legal Sex Female 1:44 PM CDT Gender Identity Not on file Sexual Orientation Not on file documented as of this encounter Miscellaneous Notes * Cerner Conversion Note - Historical ProviderMD - 03/16/2022 2:00 AM CDT Medical Affairs Director Details Entered On: 03/16/2022 6:43 EDT Performed On: 03/16/2022 2:00 EDT by Leyda Harris NON EMP RN - INTERNATIONAL Order Details Transport Mode Order Detail : Bed (including specialty) Isolation Precautions Order Detail : Standard Precautions Order Detail : 0 Lift/Transfer : Maximal assist Central Line Order Detail : Yes Room Service : Not Appropriate Arterial Line : Yes Patient Needs Meds Crushed/Liquid : No Leyda Harris NON EMP RN - INTERNATIONAL - 03/16/2022 6:43 EDT documented in this encounter Plan of Treatment Not on file documented as of this encounter Visit Diagnoses Not on filedocumented in this encounter
--- OUTSIDE RECORDS SUMMARY | 2025-02-21 13:39 | XMS_ITS | Encounter Summary ---
Author Organization [employer] Address [address] [place] [address] Care Team Providers Care Abalone Fisherman Name Role Phone Unavailable Primary Care Provider Unavailabl e Encounter Details Date Type Department Care Team (Late st Contact Info) Description 02/27/2022 Transcribed Document [facility] [place] Family Medicine [address] [place] [address] ProviderFlorentino MD [address] [place] [address] Social History Tobacco Use Types Packs/Day Years Used Date Smoking Tobacco: Never Assessed Comments Unknown Sex and Gender Information Value Date Recorded Sex Assigned at Not on file Legal Sex Female 1:44 PM CDT Gender Identity Not on file Sexual Orientation Not on file documented as of this encounter Miscellaneous Notes * Cerner Conversion Note - Historical ProviderMD - 02/27/2022 2:00 AM CDT Success Coach Details Entered On: 02/27/2022 0:55 EDT Performed On: 02/27/2022 2:00 EDT by Bridgette Ribera RN-PATIENT CARE BEDSIDE NON-EXEMP Order Details Transport Mode Order Detail : Bed (including specialty) Isolation Precautions Order Detail : Standard Precautions Order Detail : 1 IV Order Detail : 1 Oxygen Order Detail : 1 Nurse Collect Order Detail : 1 Lift/Transfer : Maximal assist Central Line Order Detail : Yes Room Service : Not Appropriate Arterial Line : No Patient Needs Meds Crushed/Liquid : Yes Meds Administered Via Tube : Yes Bridgette Ribera RN-PATIENT CARE BEDSIDE NON-EXEMP - 02/27/2022 0:28 EDT Electronically signed by Bruce Shell Conversion Medical Director Occupational Health Cerner at 12/21/2022 5:11 PM CDT documented in this encounter Plan of Treatment Not on file documented as of this encounter Visit Diagnoses Not on filedocumented in this encounter
--- OUTSIDE RECORDS SUMMARY | 2025-02-21 13:39 | XMS_ITS | Encounter Summary ---
Author Organization [facility] Address [address] [place] [address] Care Team Providers Care Business System Consultant Name Role Phone Unavailable Primary Care Provider Unavailabl e Encounter Details Date Type Department Care Team (Late st Contact Info) Description 03/17/2022 Transcribed Document [facility] [place] Family Medicine [facility] [place] [address] ProviderFlorentino MD [facility] [place] [address] Social History Tobacco Use Types Packs/Day Years Used Date Smoking Tobacco: Never Assessed Comments Unknown Sex and Gender Information Value Date Recorded Sex Assigned at Not on file Legal Sex Female 1:44 PM CDT Gender Identity Not on file Sexual Orientation Not on file documented as of this encounter Miscellaneous Notes * Cerner Conversion Note - Florentino Lynne MD - 03/17/2022 4:04 PM CDT On Going Discharge Planning Entered On: 03/17/2022 16:07 EDT Performed On: 03/17/2022 16:04 EDT by NACHO SANCHEZ Chemical Reclamation Equipment Operator Care Management Progress Note Discharge Arrangements : Patient Post-Acute Information Patient Name: ALYSSA AZUL Gender: Female : [birth year] Age: 61 Years No Post-Acute Placement(s) Listed No Post-Acute Service(s) Listed No Curaspan Referral(s) Listed Discharge Options Discussed with Patient : Acute rehabilitation, Discharge transportation, DME, Home Health, Short term rehabilitation, Other: LTACH Barriers to Discharge Identified : Clinical Condition of Patient, No prison bed available Barriers to Discharge Unresolved : Clinical Condition of Patient Patient Discharge Goal : Inpatient rehabilitation facility Is the Patient Meeting Medical Necessity : Yes Did you Attend Multidisciplinary Rounds? : Yes NACHO SANCHEZ, Chemical Reclamation Equipment Operator - 03/17/2022 16:04 EDT Narrative Progress Note Narrative Progress Note : HD 16/ELOS 12/RRS high- on room air, nebs, PO Abx/wound vac to left hip, PT/OT following. DCP: followed up with [facility] regarding status of prior auth, was informed that contrary to what they told CM staff patient had not been accepted by their facility and due to fact that she would be a Medicaid Pending patient due to her Managed Medicaid not having SNF benefits they would not be accepting patient. Pt, RN and family ([facility] [phone]) alerted that planned DC was not going to take place. Have expanded SNF search for possible acceptance. Historical Progress Note : Attending physician request CM arrange fro patient transport in anticipation of dc. *PENDING PRECERT APPROVAL*, Lorraine cotto to [facility] saturday 03/17 @1600. trip # [id number]. Luisa Ramon, Director Of Rehabilitation And Wellness Rn - 03/16/22 15:04:55 RRS High Day 12/08 Patient was admitted for acute respiratory failure. Hx of paraplegia, CKD3, DM2. PT indicates need for rehab at discharge and Cm has a bed offer from [facility]. Patient is willing to go. will ask Rachel to start the precert. IV zosyn/doxy. Need duration. DCP: [facility] EMIL GIRALDO RN - Wire Stitcher Machine - 03/14/22 12:54:50 RRS High Day 08/11 Patient was admitted for acute respiratory failure. Hx of paraplegia, CKD3, DM2. Patient was last extubated on 03/08. Patient needs rehab at discharge and has updated referrals and expanded the referral area. [facility]. Need duration. Creatinine was up slightly today. DCP: [facility] EMIL GIRALDO RN - Wire Stitcher Machine - 03/13/22 14:55:16 CM is waiting for a return call from Rachel with [facility] about possible bed offer. EMIL GIRALDO RN - Wire Stitcher Machine - 03/13/22 08:23:44 CM spoke with Matilde at [facility] and they cannot take the patient. Cm sent referrals to area snfs. EMIL GIRALDO, RN - Wire Stitcher Machine - 03/12/22 09:15:18 pt transferred off unit prior to cm assessment. DCP: PT/OT re-evals pending to assist with discharge plan. Anticipate patient will need inpatient rehab. TRISTAN TAYLOR, RN-Wire Stitcher Machine - 03/11/22 15:52:03 RAR High ELOS: 12 days HD#7 Covid Vaccine X2 +Booster 61 year old female with history paraplegia, CKD3, DM2, HTN; presented to [facility] with SOB, fever, chills and productive Cough X1 week. Admitted for PNA and debridement DTI to left buttock. Cardiac arrested, intubated and transferred to [facility] She was extubated a couple days later and reintubated the same day and extubated. She was reintubated on 03/01 after failed BiPap and [facility] Of note patient had trach/PEG in 2009. Consults: Pulmonary, ID 7/2 Intubated 03/08 Extubated 03/01 Central Line Patient extubated on Thursday. Awake and alert, following commands. O2 sat 99% on 3 liters. FACILITY TECHNICIAN swallow eval, not safe to initiate po diet, continue corpak with TF. Renal function improving. DCP: PT/OT re-evals pending to assist with discharge plan. Anticipate patient will need inpatient rehab. Will fax referral when therapy notes available. STEFAN FERNANDEZ RN-Wire Stitcher Machine - 03/09/22 14:31:25 RAR High ELOS: 5 days HD#3 Covid Vaccine X2 +Booster 61 year old female with history paraplegia, CKD3, DM2, HTN; presented to [facility] with SOB, fever, chills and productive Cough X1 week. Admitted for PNA and debridement DTI to left buttock. Cardiac arrested, intubated and transferred to [facility]. She was extubated a couple days later and reintubated the same day and extubated. She was reintubated on 03/01 after failed BiPap and transferred to [facility]. Of note patient had trach/PEG in 2009. Consults: Pulmonary, ID 7/2 Intubated Vent Day #5 03/01 Central Line On MV per ET AC 16/400/40%/P8, sedated with Fentanyl and Propofol, awake and following commands. Na+ trending up 149. Corpak with TF. ID plan: IV Zosyn q8. Wound Vac to left buttock. Patient lives alone in [place]. She is and has one son FREDO. Her PCP s Dr. Cabello. Patient is ADL independent at her baseline. Only inpatient rehab stay was at [facility] at age 9. No prior home health services. She has a CPap and dated WC at home. She transports by her son or Medicaid van. DCP: CM spoke with patient's son FREDO on the phone. He and his plan to ultimately take her home to their house in [place] after hospitalization and LTACH/Rehab stay for IV abx and wound care. Patient has managed medicaid and does not have a SNF benefit. Her inpatient options at discharge will be LTACH or acute rehab versus home with home health. Early referral to [facility]. Son asked if we could assist in getting her a new WC at discharge. He will let CM know the name of her DME provider to see if she is eligible for a new one. CM will assist to get his FMLA paperwork over to [place] office. STEFAN FERNANDEZ, RN-Wire Stitcher Machine - 03/05/22 13:34:00 NACHO SANCHEZ, Chemical Reclamation Equipment Operator - 03/17/2022 16:04 EDT documented in this encounter Plan of Treatment Not on file documented as of this encounter Visit Diagnoses Not on filedocumented in this encounter
--- OUTSIDE RECORDS SUMMARY | 2025-02-21 13:39 | XMS_ITS | Encounter Summary ---
Author Organization [employer] Address [address] [place] [address] Care Team Providers Care Residential Leasing Manager Name Role Phone Unavailable Primary Care Provider Unavailabl e Encounter Details Date Type Department Care Team (Late st Contact Info) Description 03/15/2022 Transcribed Document [facility] [address] [place] [address] ProviderFlorentino MD [address] [place] [address] Social History Tobacco Use Types Packs/Day Years Used Date Smoking Tobacco: Never Assessed Comments Unknown Sex and Gender Information Value Date Recorded Sex Assigned at Not on file Legal Sex Female 1:44 PM CDT Gender Identity Not on file Sexual Orientation Not on file documented as of this encounter Miscellaneous Notes * Cerner Conversion Note - Florentino Lynne MD - 03/15/2022 11:25 AM CDT Patient: ALYSSA AZUL Age: 61 Years Sex: Female : 1960 Subjective Doing okay this morning, family member at bedside. Has been on Room air since yesterday other than CPAP at night. Doing well from a respiratory standpoint, denies shortness of breath. Asking about her sacral wound. According to wound care it is looking better. Wound VAC still in place. ID changing her to oral antibiotics. Hemoglobin improving. BUN/creatinine trending down after IV fluid yesterday. Vital Signs T: 37.1 ??C TMIN: 37.1 ??C TMAX: 37.4 ??C HR: 92(Monitored) RR: 16 BP: 131/72 SpO2: 98% HT: 162.56 cm WT: 77.3 kg BMI: 29.25 Oxygen Settings (Last) Oxygen Therapy Mode: Room air (03/15/22 11:01:00) Oxygen Flow Rate: 2 Liter/Min (03/14/22 08:47:00) Intake & Output Totals Last 24 Hours (7a-7a) Input Total: 345.02 mL Output Total: 1500 mL Balance: -1154.98 mL Physical Exam General: Alert, obese, no [...] Klebsiella pneumonia PCR + MSSA ID following: Changed to doxycyline and augmentin today #Acute on chronic kidney disease III Baseline creatinine around 1.6 Creatinine trending back down after IV fluid yesterday, continue to monitor, encourage oral hydration Nephrology following Etiology prerenal azotemia/ATN due to [...] daily, SSI Disposition: Still hospitalized due to -creatinine improving after IV fluid yesterday. Waiting on pre-CERT. On oral antibiotics (duration?). On room air. At d/c will likely need -wound care, PT OT. Pulm f/u Tentatively at d/c will be going to -[facility] and rehab Expected d/c date - 03/16? VTE Prophylaxis - Medical Heparin 5,000 Units, SubCutaneous, Inj, Q8H, Routine, Start 03/01/22 22:00:00 EDT, 03/01/22 19:01:00 EDT (GENI ORTIZ) Sequential Compression Device Start: 03/01/22 19:03:00 EDT, Bilateral, Length: Knee High, While patient is in bed, Continuous [facility]IC[facility]INIC) Sequential Compression Device Start: 03/01/22 18:51:00 EDT, Bilateral, Length: Knee High, While patient is in bed, Continuous Order ([facility] PHYSICIAN-CLINIC) Medications acetaminophen, 650 mg= 2 Tab, Oral, Q6H, PRN Augmentin 500 mg-125 mg oral tablet, 500 mg= 1 Tab, Oral, BID calcium gluconate, 1 Gram= 100 mL, IV [...] Test Result Date/Time Sodium Level 138 mmol/L 03/15/2022 06:20 EDT Potassium Level 3.8 mmol/L 03/15/2022 06:20 EDT Chloride Level 106 mmol/L 03/15/2022 06:20 EDT Carbon Dioxide Level 23 mmol/L 03/15/2022 06:20 EDT Anion Gap 13 03/15/2022 06:20 EDT Glucose Level 152 mg/dL (High) 03/15/2022 06:20 EDT Blood Urea Nitrogen 53 mg/dL (High) 03/15/2022 06:20 EDT Creatinine Level 2.00 mg/dL (High) 03/15/2022 06:20 EDT eGFR 31 mL/min/1.73m2 (Low) 03/15/2022 06:20 EDT eGFR NonAfrican 25 mL/min/1.73m2 (Low) 03/15/2022 06:20 EDT Bun/Creatinine 26.5 (High) 03/15/2022 06:20 EDT Calcium Level 9.4 mg/dL 03/15/2022 06:20 EDT Device Comment 1 Notified Nurse RBV 03/15/2022 11:06 EDT Device Comment 1 Protocols Followed 03/15/2022 05:58 EDT Device Comment 1 Protocols Followed 03/14/2022 20:12 EDT Device Comment 1 Notified Nurse RBV 03/14/2022 15:06 EDT Device Comment 2 Notified Nurse RBV 03/15/2022 05:58 EDT Device Comment 2 Notified Nurse RBV 03/14/2022 20:12 EDT Glucose POC2 228 mg/dL (High) 03/15/2022 11:06 EDT Glucose POC2 149 mg/dL (High) 03/15/2022 05:58 EDT Glucose POC2 145 mg/dL (High) 03/14/2022 20:12 EDT Glucose POC2 170 mg/dL (High) 03/14/2022 15:06 EDT WBC 6.5 K/uL 03/15/2022 06:20 EDT RBC 2.84 Million/uL (Low) 03/15/2022 06:20 EDT Hgb 8.0 g/dL (Low) 03/15/2022 06:20 EDT Hct 25.5 % (Low) 03/15/2022 06:20 EDT MCV 89.8 fL 03/15/2022 06:20 EDT MCH 28.2 pg 03/15/2022 06:20 EDT MCHC 31.4 Gram/dL (Low) 03/15/2022 06:20 EDT Platelet Count 147 K/uL (Low) 03/15/2022 06:20 EDT MPV 11.6 fL 03/15/2022 06:20 EDT RDW 15.9 % (High) 03/15/2022 06:20 EDT Neut % 56.0 % 03/15/2022 06:20 EDT Neut # 3.62 K/uL 03/15/2022 06:20 EDT Lymph % 18.9 % (Low) 03/15/2022 06:20 EDT Lymph # 1.22 x10(3)/uL 03/15/2022 06:20 EDT Mclean % 8.7 % 03/15/2022 06:20 EDT Mclean # 0.56 K/uL 03/15/2022 06:20 EDT Eos % 5.9 % 03/15/2022 06:20 EDT Eos # 0.38 x10(3)/uL 03/15/2022 06:20 EDT Baso % 0.9 % 03/15/2022 06:20 EDT Baso # 0.06 x10(3)/uL 03/15/2022 06:20 EDT RBC Morphology Abnormal 03/15/2022 06:20 EDT Anisocytosis 1+ (Abnormal) 03/15/2022 06:20 EDT Polychromasia 1+ (Abnormal) 03/15/2022 06:20 EDT Baso Stippling 1+ (Abnormal) 03/15/2022 06:[address] Estimate Decreased (Abnormal) 03/15/2022 06:20 EDT Slide Review Technologist 03/15/2022 06:20 EDT IG# 0.62 x10(3)/uL (High) 03/15/2022 06:20 EDT IG% 9.60 % (High) 03/15/2022 06:20 EDT Electronically signed by Sumaya, Bruce Conversion Supervisor Alteration Workroom Cerner at 12/21/2022 5:08 PM CDT documented in this encounter Plan of Treatment Not on file documented as of this encounter Visit Diagnoses Not on filedocumented in this encounter
--- OUTSIDE RECORDS SUMMARY | 2025-02-21 13:39 | XMS_ITS | Encounter Summary ---
Author Organization [employer] Address [address] [place] [address] Care Team Providers Care Laborer/Grade Check Name Role Phone Unavailable Primary Care Provider Unavailabl e Encounter Details Date Type Department Care Team (Late st Contact Info) Description 03/16/2022 Transcribed Document [facility] [place] Family Medicine [facility] [place] [address] ProviderFlorentino MD [address] [place] [address] Social History Tobacco Use Types Packs/Day Years Used Date Smoking Tobacco: Never Assessed Comments Unknown Sex and Gender Information Value Date Recorded Sex Assigned at Not on file Legal Sex Female 1:44 PM CDT Gender Identity Not on file Sexual Orientation Not on file documented as of this encounter Miscellaneous Notes * Cerner Conversion Note - Historical ProviderMD - 03/16/2022 5:03 PM CDT Attempt to Treat, PT Entered On: 03/16/2022 17:06 EDT Performed On: 03/16/2022 17:03 EDT by KAREN DE LUNA PT Attempt to Treat Unable to Treat Due To : Patient Refusal Inability to Treat Comment : At arrival the patient had company. She was offerred the opportunity to work on sliding board transfers but asked to do so later. She was advised that it was highly unlikely that suffient time would be available for a second attempt. She still elected (Comment: not to work with PT in preference to continue her visit with friends despite their encouragement that she work with PT. [KAREN DE LUNA, PT - 03/16/2022 17:03 EDT] ) Notification : PRIMO Killian MARK, PT - 03/16/2022 17:03 EDT Electronically signed by Sumaya [facility] Conversion Shelver Cerner at 12/21/2022 5:04 PM CDT documented in this encounter Plan of Treatment Not on file documented as of this encounter Visit Diagnoses Not on filedocumented in this encounter
--- OUTSIDE RECORDS SUMMARY | 2025-02-21 13:39 | XMS_ITS | Encounter Summary ---
Author Organization [employer] Address [address] [place] [address] Care Team Providers Care Car Sweeper Name Role Phone Unavailable Primary Care Provider Unavailabl e Encounter Details Date Type Department Care Team (Late st Contact Info) Description 03/17/2022 Transcribed Document [facility] [place] [address] [place] [address] ProviderFlorentino MD [address] [place] [address] Social History Tobacco Use Types Packs/Day Years Used Date Smoking Tobacco: Never Assessed Comments Unknown Sex and Gender Information Value Date Recorded Sex Assigned at Not on file Legal Sex Female 1:44 PM CDT Gender Identity Not on file Sexual Orientation Not on file documented as of this encounter Miscellaneous Notes * Cerner Conversion Note - Florentino ProviderMD - 03/17/2022 2:22 PM CDT Patient: ALYSSA AZUL Age: 61 Years Sex: Female : 1960 Subjective Continues to do well, creatinine back to baseline. Vital stable. Will need oral antibiotics for 2 weeks. Had transportation scheduled for this afternoon but apparently facility that was going to accept changed their mind. Discussed with CM. Vital Signs T: 37 ??C TMIN: 36.6 ??C TMAX: 37.7 ??C HR: 88(Monitored) RR: 16 BP: 121/66 SpO2: 94% HT: 162.56 cm WT: 90 kg BMI: 34.06 Oxygen Settings (Last) Oxygen Therapy Mode: Room air (03/17/22 08:16:00) Oxygen Flow Rate: 2 Liter/Min (03/14/22 08:47:00) Intake & Output Totals Last 24 Hours (7a-7a) Input Total: 10.5 mL Output Total: 1675 mL Balance: -1664.5 mL Physical Exam General: Alert, obese, no [...] with their clinic in 6 weeks S/p [facility] at OSH on 02/21 S/p bronchoscopy 03/04 Continuing nasal cannula, BiPAP as needed #Severe sepsis (POA) secondary to bilateral lower lobe pneumonia Reportedly required Levophed for short time at OSH prior to arriving to our facility Sputum culture + Klebsiella pneumonia PCR + MSSA ID following: cont doxycyline and augmentin #Acute (resolved) on chronic kidney disease III Baseline creatinine [...] SSI Disposition: Still hospitalized due to -creatinine back to baseline. Waiting on pre-CERT. On oral antibiotics x2 weeks. On room air. At d/c will likely need -wound care, PT OT. Pulm f/u Tentatively at d/c will be going to -[facility] and rehab?? Expected d/c date -medically ready as of 03/15 *Summary of hospitalization and events up to this point/preliminary discharge note to be found under hospital course under provider view tab VTE Prophylaxis - Medical Heparin 5,000 Units, SubCutaneous, Inj, Q8H, Routine, Start 03/01/22 22:00:00 EDT, 03/01/22 19:01:00 EDT (DIANA GENI A) Sequential Compression Device Start: 03/01/22 19:03:00 EDT, Bilateral, Length: Knee High, While patient is in bed, Continuous Order (Elaine francis, PHYSICIAN-CLINIC) Sequential Compression Device Start: 03/01/22 18:51:00 EDT, Bilateral, Length: Knee High, While patient is in bed, Continuous [facility]) Medications acetaminophen, 650 mg= 2 Tab, [...] Test Name Test Result Date/Time Sodium Level 141 mmol/L 03/17/2022 02:47 EDT Potassium Level 4.4 mmol/L 03/17/2022 02:47 EDT Chloride Level 111 mmol/L 03/17/2022 02:47 EDT Carbon Dioxide Level 22 mmol/L 03/17/2022 02:47 EDT Anion Gap 12 03/17/2022 02:47 EDT Glucose Level 176 mg/dL (High) 03/17/2022 02:47 EDT Blood Urea Nitrogen 51 mg/dL (High) 03/17/2022 02:47 EDT Creatinine Level 1.60 mg/dL (High) 03/17/2022 02:47 EDT eGFR 40 mL/min/1.73m2 (Low) 03/17/2022 02:47 EDT eGFR NonAfrican 33 mL/min/1.73m2 (Low) 03/17/2022 02:47 EDT Bun/Creatinine 31.9 (High) 03/17/2022 02:47 EDT Calcium Level 9.1 mg/dL 03/17/2022 02:47 EDT Device Comment 1 Notified Nurse RBV 03/17/2022 11:18 EDT Device Comment 1 Notified Nurse RBV 03/17/2022 06:12 EDT Device Comment 1 Notified Nurse RBV 03/16/2022 20:19 EDT Device Comment 1 Notified Nurse RBV 03/16/2022 15:13 EDT Glucose POC2 155 mg/dL (High) 03/17/2022 11:18 EDT Glucose POC2 182 mg/dL (High) 03/17/2022 06:12 EDT Glucose POC2 169 mg/dL (High) 03/16/2022 20:19 EDT Glucose POC2 184 mg/dL (High) 03/16/2022 15:13 EDT WBC 6.5 K/uL 03/17/2022 02:47 EDT RBC 2.69 Million/uL (Low) 03/17/2022 02:47 EDT Hgb 7.6 g/dL (Low) 03/17/2022 02:47 EDT Hct 24.2 % (Low) 03/17/2022 02:47 EDT MCV 90.0 fL 03/17/2022 02:47 EDT MCH 28.3 pg 03/17/2022 02:47 EDT MCHC 31.4 Gram/dL (Low) 03/17/2022 02:47 EDT Platelet Count 135 K/uL (Low) 03/17/2022 02:47 EDT MPV 11.1 fL 03/17/2022 02:47 EDT RDW 16.0 % (High) 03/17/2022 02:47 EDT Neutrophil Percent Man 64 % 03/17/2022 02:47 EDT Band Percent Man 5 % 03/17/2022 02:47 EDT ANC # 4 K/uL 03/17/2022 02:47 EDT Lymph Percent Man 23 % (Low) 03/17/2022 02:47 EDT ALYC # 1 K/uL 03/17/2022 02:47 EDT [place] Percent Man 4 % 03/17/2022 02:47 EDT Myelo Percent Man 4 % (High) 03/17/2022 02:47 EDT RBC Morphology Normal 03/17/2022 02:47 EDT Anisocytosis 1+ (Abnormal) 03/17/2022 02:[address] Estimate Decreased (Abnormal) 03/17/2022 02:47 EDT Slide Review Add Diff 03/17/2022 02:47 EDT Electronically signed by Sumaya, [facility] Conversion Handle And Vent Machine Operator Cerner at 12/21/2022 5:08 PM CDT documented in this encounter Plan of Treatment Not on file documented as of this encounter Visit Diagnoses Not on filedocumented in this encounter
--- OUTSIDE RECORDS SUMMARY | 2025-02-21 13:39 | XMS_ITS | Encounter Summary ---
Author Organization [employer] Address [address] [place] [address] Care Team Providers Care Train Braker Name Role Phone Unavailable Primary Care Provider Unavailabl e Encounter Details Date Type Department Care Team (Late st Contact Info) Description 05/02/2022 Transcribed Document [facility] [place] [address] [place] [address] ProviderFlorentino MD [address] [place] [address] Social History Tobacco Use Types Packs/Day Years Used Date Smoking Tobacco: Never Assessed Comments Unknown Sex and Gender Information Value Date Recorded Sex Assigned at Not on file Legal Sex Female 1:44 PM CDT Gender Identity Not on file Sexual Orientation Not on file documented as of this encounter Miscellaneous Notes * Cerner Conversion Note - Florentino Lynne MD - 05/02/2022 10:35 AM CDT [facility] Inpatient Documentation Entered On: 05/02/2022 13:53 EDT Performed On: 05/02/2022 10:35 EDT by Edwina Fraire LPN-EHY-RHK-Fpfbzpozhfj Therapy WOCN Admission Date : Admit Date [...] Wound care team following up on left trochanter after change in treatment. Wound care sports team manager assessed wound and recommends to continue with treatment of mist and collagen to wound bed at this time. Wound care sports team manager will follow up. If any changes to skin integrity please consult wound care dept. Fraire, Edwina, SMW-WBQ-Lthyggzsgyk Therapy - 05/02/2022 13:49 EDT Wound & Pressure Ulcer WOCN Wound Pressure Ulcer Documentation : Pressure Ulcer Assessment: Heel Left on 04/30/2022 10:00 by Edwina Fraire LPNTVC-YKR-Aknjnqhkgik Therapy Present on Adm to Hosp: Yes [...] Right on 04/30/2022 10:00 by Edwina Fraire LPNMJE-EOV-Npimzyhuxnw Therapy Present on Adm to Hosp: Yes [...] Medial on 04/30/2022 10:00 by Edwina Fraire LPFNR-RIA-Lhgkblzhkdc Therapy Present on Adm to Hosp: Yes Stage: Deep tissue pressure injury Device Related: Unknown Dressing Status: Left open to air Wound Bed Description: Intact skin (dark red/purple) Bed Color(s): Red, Purple/Maroon Wound Edge: Attached Surrounding Tissue: Intact Drainage Amount: None Photographed: Yes Cleansing/Irrigation: Wound cleanser Dressing Type/Treatment: Open to air Healing, PU: Initial Pressure Ulcer Assessment: Trochanter Left on 05/02/2022 10:35 by Edwina Fraire LPCNN-NVG-Ngisqhbworl Therapy Present on Adm to Hosp: Yes Stage: Stage 4 Device Related: Unknown Dressing Status: Intact Dressing Activity: Assessed Wound Bed Description: Bone, Epithelialization (pearly pink), Intact skin (dark red/purple), Muscle Bed Color(s): [place], Red, Purple/Maroon, [place] Wound Edge: Attached Surrounding Tissue: Intact, [place] (Epithelialized) Photographed: Yes Healing, PU: Epithelialization, Granulate WOCN Ostomy Documentation : No ostomy assessments reported. Edwina Fraire LPNZYJ-DGF-Nnvirqjpvmi Therapy - 05/02/2022 13:49 EDT Electronically signed by Sumaya [facility] Conversion Obstetrics Gynecology Md Cerner at 12/21/2022 5:03 PM CDT documented in this encounter Plan of Treatment Not on file documented as of this encounter Visit Diagnoses Not on filedocumented in this encounter
--- OUTSIDE RECORDS SUMMARY | 2025-02-21 13:39 | XMS_ITS | Encounter Summary ---
Author Organization [employer] [facility] Address [address] [place] [address] Care Team Providers Care Network Support Analyst Name Role Phone Unavailable Primary Care Provider Unavailabl e Encounter Details Date Type Department Care Team (Late st Contact Info) Description 03/16/2022 Transcribed Document [facility] [place] [facility] [place] [address] ProviderFlorentino MD [facility] [place] [address] Social History Tobacco Use Types Packs/Day Years Used Date Smoking Tobacco: Never Assessed Comments Unknown Sex and Gender Information Value Date Recorded Sex Assigned at Not on file Legal Sex Female 1:44 PM CDT Gender Identity Not on file Sexual Orientation Not on file documented as of this encounter Miscellaneous Notes * Cerner Conversion Note - Florentino Lynne MD - 03/16/2022 3:03 PM CDT On Going Discharge Planning Entered On: 03/16/2022 15:04 EDT Performed On: 03/16/2022 15:03 EDT by Luisa Ramon Chairman President And Chief Executive Officer Rn Care Management Progress Note Discharge Arrangements : [...] Patient Discharge Goal : Inpatient rehabilitation facility Luisa Ramon Chairman President And Chief Executive Officer Rn - 03/16/2022 15:03 EDT Narrative Progress Note Narrative Progress Note : Attending physician request CM arrange fro patient transport in anticipation of dc. *PENDING PRECERT APPROVAL*, Lorraine cotto to [facility] saturday 03/17 @1600. trip # [id number]. Historical Progress Note : RRS High Day 12/08 Patient was admitted for acute respiratory failure. Hx of paraplegia, CKD3, DM2. PT indicates need for rehab at discharge and Cm has a bed offer from [facility]. Patient is willing to go. will ask Rachel to start the precert. IV zosyn/doxy. Need duration. DCP: [facility] EMIL GIRALDO RN - Display Designer - 03/14/22 12:54:50 RRS High Day 08/11 Patient was admitted for acute respiratory failure. Hx of paraplegia, CKD3, DM2. Patient was last extubated on 03/08. Patient needs rehab at discharge and has updated referrals and expanded the referral area. Waiting for return call from Pj [facility]. IV zosyn/doxy. Need duration. Creatinine was up slightly today. DCP: [facility] EMIL GIRALDO RN - Display Designer - 03/13/22 14:55:16 CM is waiting for a return call from Rachel with [facility] about possible bed offer. EMIL GIRALDO RN - Display Designer - 03/13/22 08:23:44 CM spoke with Matilde at [facility] and they cannot take the patient. sent referrals to area snfs. EMIL GIRALDO RN - Display Designer - 03/12/22 09:15:18 pt transferred off unit prior to cm assessment. DCP: PT/OT re-evals pending to assist with discharge plan. Anticipate patient will need inpatient rehab. TRISTAN TAYLOR RN-Display Designer - 03/11/22 15:52:03 RAR High ELOS: 12 days HD#7 Covid Vaccine X2 +Booster 61 year old female with history paraplegia, CKD3, DM2, HTN; presented to [facility] with SOB, fever, chills and productive Cough X1 week. Admitted for PNA and debridement DTI to left buttock. Cardiac arrested, intubated and transferred to [facility]. She was extubated a couple days later and reintubated the same day and extubated. She was reintubated on 03/01 after failed BiPap and transferred to [facility]. Of note patient had trach/PEG in 2009. Consults: Pulmonary, ID 03/01 Intubated 03/08 Extubated 03/01 Central Line Patient extubated on Thursday. Awake and alert, following commands. O2 sat 99% on 3 liters. CODE MACHINE OPERATOR swallow eval, not safe to initiate po diet, continue corpak with TF. Renal function improving. DCP: PT/OT re-evals pending to assist with discharge plan. Anticipate patient will need inpatient rehab. Will fax referral when therapy notes available. STEFAN FERNANDEZ, RN-Display Designer - 03/09/22 14:31:25 RAR High ELOS: 5 days HD#3 Covid Vaccine X2 +Booster 61 year old female with history paraplegia, CKD3, DM2, HTN; presented to [facility] with SOB, fever, chills and productive Cough X1 week. Admitted for PNA and debridement DTI to left buttock. Cardiac arrested, intubated and transferred to [facility]. She was extubated a couple days later and reintubated the same day and extubated. She was reintubated on 03/01 after failed BiPap and transferred to [facility]. Of note patient had trach/PEG in 2009. Consults: Pulmonary, ID 03/01 Intubated Vent Day #5 03/01 Central Line On MV per ET AC 16/400/40%/P8, sedated with Fentanyl and Propofol, awake and following commands. Na+ trending up 149. Corpak with TF. ID plan: IV Zosyn q8. Wound Vac to left buttock. Patient lives alone in [place]. She is and has one son FREDO. Her PCP s Dr. Cabello. Patient is ADL independent at her baseline. Only inpatient rehab stay was at [facility] at age 9. No prior home health services. She has a CPap and dated WC at home. She transports by her son or Medicaid van. DCP: BARNEY spoke with patient's son FREDO on the phone. He and his plan to ultimately take her home to their house in [place] after hospitalization and LTACH/Rehab stay for IV abx and wound care. Patient has managed medicaid and does not have a SNF benefit. Her inpatient options at discharge will be LTACH or acute rehab versus home with home health. Early referral to [facility]. Son asked if we could assist in getting her a new WC at discharge. He will let CM know the name of her DME provider to see if she is eligible for a new one. CM will assist to get his FMLA paperwork over to [place] office. STEFAN FERNANDEZ, RN-Display Designer - 03/05/22 13:34:00 Luisa Ramon, Chairman President And Chief Executive Officer Rn - 03/16/2022 15:03 EDT documented in this encounter Plan of Treatment Not on file documented as of this encounter Visit Diagnoses Not on filedocumented in this encounter
--- OUTSIDE RECORDS SUMMARY | 2025-02-21 13:39 | XMS_ITS | Encounter Summary ---
Author Organization [employer] Address [address] [place] [address] Care Team Providers Care Crossing Gateman Name Role Phone Unavailable Primary Care Provider Unavailabl e Encounter Details Date Type Department Care Team (Late st Contact Info) Description 02/28/2022 Transcribed Document [facility] [place] [address] [place] [address] ProviderFlorentino MD [address] [place] [address] Social History Tobacco Use Types Packs/Day Years Used Date Smoking Tobacco: Never Assessed Comments Unknown Sex and Gender Information Value Date Recorded Sex Assigned at Not on file Legal Sex Female 1:44 PM CDT Gender Identity Not on file Sexual Orientation Not on file documented as of this encounter Miscellaneous Notes * Cerner Conversion Note - Historical ProviderMD - 02/28/2022 10:22 AM CDT Discharge Summary, BILLET STRAIGHTENER Entered On: 02/28/2022 10:22 EDT Performed On: 02/28/2022 10:22 EDT by HOLLIE FRANCO SLP Discharge Notation. BILLET STRAIGHTENER Dysphagia Treatment After Discharge : No Discharge Diet : Regular Discharge Liquids : Thin Repeat Instrumental Prior To : Not applicable Discharge Summary Comment, BILLET STRAIGHTENER : The patient is discharged from speech services on a regular diet with thin liquids. NO follow up is indicated at this time. HOLLIE FRANCO SLP - 02/28/2022 10:22 EDT documented in this encounter Plan of Treatment Not on file documented as of this encounter Visit Diagnoses Not on filedocumented in this encounter
--- OUTSIDE RECORDS SUMMARY | 2025-02-21 13:39 | XMS_ITS | Encounter Summary ---
Author Organization [employer] Address [address] [place] [address] Care Team Providers Care Software Engineer Web Applications Name Role Phone Unavailable Primary Care Provider Unavailabl e Encounter Details Date Type Department Care Team (Late st Contact Info) Description 03/07/2022 Transcribed Document [facility] [place] Family Medicine [address] [place] [address] ProviderFlorentino MD [address] [place] [address] Social History Tobacco Use Types Packs/Day Years Used Date Smoking Tobacco: Never Assessed Comments Unknown Sex and Gender Information Value Date Recorded Sex Assigned at Not on file Legal Sex Female 1:44 PM CDT Gender Identity Not on file Sexual Orientation Not on file documented as of this encounter Miscellaneous Notes * Cerner Conversion Note - Historical ProviderMD - 03/07/2022 5:00 PM CDT Chart Check - Review Order Profile Entered On: 03/07/2022 18:14 EDT Performed On: 03/07/2022 17:00 EDT by Jose Harris RN Chart Check Powerplans Initiated/Discontinued as Appropriate : Yes All Active Orders Reviewed : Yes Jose Harris RN - 03/07/2022 18:14 EDT documented in this encounter Plan of Treatment Not on file documented as of this encounter Visit Diagnoses Not on filedocumented in this encounter
--- OUTSIDE RECORDS SUMMARY | 2025-02-21 13:39 | XMS_ITS | Encounter Summary ---
Author Organization [employer] Address [address] [place] [address] Care Team Providers Care Pacu Rn Name Role Phone Unavailable Primary Care Provider Unavailabl e Encounter Details Date Type Department Care Team (Late st Contact Info) Description 02/27/2022 Transcribed Document [facility] [place] [facility] [place] [address] ProviderFlorentino MD [address] [place] [address] Social History Tobacco Use Types Packs/Day Years Used Date Smoking Tobacco: Never Assessed Comments Unknown Sex and Gender Information Value Date Recorded Sex Assigned at Not on file Legal Sex Female 1:44 PM CDT Gender Identity Not on file Sexual Orientation Not on file documented as of this encounter Miscellaneous Notes * Cerner Conversion Note - Florentino Lynne MD - 02/27/2022 12:00 PM CDT Patient: ALYSSA AZUL Age: 61 years Sex: Female : 1960 Associated Diagnoses: None Author: Benoit Maurice, Wildlife Officer Critical Care Basic Information Present at bedside: None. Source of history: Self, Medical record. Referral source: Dr. Alvarenga. History limitation: None. Advance directive: Full code. History of Present Illness Patient is a 61 year old female transferred from the osh with respiratory arrest requiring intubation. She has a long history of paraplegia and presented to the OSH with L hip decub and LLL pneumonia. She had debridement x 2. 02/20 post procedure she had cardiac arrest and was transferred to [facility]. This morning she was on the ventilator [...] appears comfortable. Trach over 20 years ago. 02/26: did well overnight with extubation. No longer requiring bipap. Comfortable on optiflow. + loose stools. + coughing with ice chips/sips Denies pain. Asking about going home. 02/27: Patient is sitting up in bed wearing 2L HF NC. Afebrile with no acute events overnight. Denies SOB, but still has wet cough. Used acapella prior to us entering room. Hypernatremia and hypokalemia. Cr 3.12 (prior 3.3). No leukocytosis. Cultures negative. Remains on IV zosyn, day 6. CXR yesterday shows no interval changes. Bedside US shows small left effusion with consolidation and air bronchograms, and very small right effusion. Review of Systems Constitutional: No fever, No chills, No sweats. Eye: No icterus, No double vision. Ear/Nose/Mouth/Throat: No nasal congestion, No sore throat. Respiratory: Cough, No shortness of breath, No sputum production, No hemoptysis. Cardiovascular: No palpitations, No peripheral edema. Gastrointestinal: No nausea, No vomiting, No diarrhea. Genitourinary: No hematuria, No change in urine stream. Musculoskeletal: No neck pain, No muscle pain. Neurologic: Alert and oriented X4, No headache. Health Status Allergies: Allergic Reactions (All) No Known Allergies, Allergies (1) Active Reaction No Known Allergies None Documented Current medications: (Selected) Inpatient Medications Ordered Chloraseptic Menthol 1.4% topical spray: 1 [place], Oral, Q2H, PRN: Sore Throat Dextrose 50% injection: 12.5 Gram, IV Push, Q15Min, PRN: Other (See Comment) Dextrose 50% injection: 25 Gram, IV Push, Q15Min, PRN: Other (See Comment) Normal Saline Flush: 10 mL, IV Push, [...] glargine: 14 Units, SubCutaneous, BID insulin lispro 76 kg - 100 k kg - 100 kg scale, SubCutaneous, Q6H magnesium sulfate: 2 Gram, 50 [...] PRN: Pain (Moderate 4-6) Documented Medications Documented [place]-3 1000 mg oral capsule: 1 Cap, Oral, [...] 1 Tab, Oral, Daily, 0 Refill(s), Medications (29) Active Scheduled: (7) #NaCl 0.9% *FLUSH* inj 10 mL 10 mL, IV Push, Q12H albuterol-ipratropium inh 3 mL 3 mL, Nebulized Inhalation, RT_Q4H bisoprolol 5 mg tab 5 mg 1 Tab, Oral, Daily insulin glargine 1 unit/0.01 mL inj 14 Units 0.14 mL, SubCutaneous, BID insulin lispro 1 unit/0.01 mL inj 76 kg - 100 kg scale, SubCutaneous, Q6H pantoprazole 40 mg inj 40 mg, IV Push, Daily piperacillin-tazobactam + NaCl 0.9% *MBP* 50 mL 2.25 Gram, IV Piggyback, Q8HInt Continuous: (0) PRN: (22) #NaCl 0.9% *FLUSH* inj 10 mL 10 [...] Push, Q6H phenol 1.4% throat spray 1 [place], Oral, Q2H potassium bicarb efferves 20 mEq [...] mg 1 Tab, Oral, Q6H Problem list: All Problems History of obstructive sleep apnea / IMO [id number] / Confirmed, Active Problems (1) History of obstructive sleep apnea Histories Past Medical History: No active or resolved past medical history items have been selected or recorded. Family History: No family history items have been selected or recorded. Procedure history: No active procedure history items have been selected or recorded. Social History Social & Psychosocial Habits No Data Available . Physical Examination VS/Measurements Vitals Signs (last 24 hrs) Last Charted Minimum Maximum Temp 98.4 (FEB 27 04:00) 97.9 (FEB 26 16:00) 98.0 (FEB 26 20:00) Apical HR 90 (FEB 26 13:18) 90 (FEB 26 13:18) 90 (FEB 26 13:18) Mon HR 60 (FEB 27 11:32) 57 (FEB 27 08:30) 71 (FEB 26 14:00) Resp Rate H 34 (FEB 27 11:32) L 10 (FEB 26 20:30) H 45 (FEB 26 20:20) SBP 113 (FEB 27 11:30) 110 (FEB 27 02:00) H 172 (FEB 26 13:00) DBP 64 (FEB 27 11:30) L 58 (FEB 26 15:00) H 99 (FEB 26 14:30) MAP 84 (FEB 27 11:30) 78 (FEB 27 02:00) 122 (FEB 26 14:30) SpO2 97 (FEB 27 11:32) L 89 (FEB 26 20:24) 100 (FEB 27 01:00) General: Alert and oriented, No acute distress, 2L HF NC, obese. Eye: Pupils are equal, round and reactive to light, Extraocular movements are intact, Normal conjunctiva. HENT: Normocephalic, No pharyngeal erythema. Neck: Supple, Non-tender, No carotid bruit, No lymphadenopathy. Respiratory: Respirations are non-labored, Breath sounds are equal, No chest wall tenderness, rhonchi LLL . Cardiovascular: Normal rate, Regular rhythm, No murmur, No edema. Gastrointestinal: Soft, Non-tender, Non-distended, Normal bowel sounds. Musculoskeletal: Normal range of motion, Normal strength, No swelling. Neurologic: Alert, Oriented, paraplegic . Cognition and Speech: Oriented. Psychiatric: Cooperative. Review / Management Results review: Labs (Last four charted values) WBC 9.0 (FEB 27) 9.6 (FEB 26) H 10.4 (FEB 25) 8.9 (FEB 24) HB L 8.6 (FEB 27) L 8.1 (FEB 26) L 8.3 (CATRACHITA 28) L 7.5 (CATRACHITA [...] (CATRACHITA 26) L 1.9 (CATRACHITA 24) . CATRACHITA 30 03:37 H 148 H 113 H 50 / 97 L 3.2 22 H 3.12 \ CATRACHITA 30 03:37 \ L 8.6 / 9.0 190 / L 27.5 \ Blood Gases (Current Encounter/Past 24 Hours) No Blood Gas Results Found (Past 24 Hours) Radiology Results (Last 48 hours) [id number] -- 02/22/2022 00:01 CR Chest 1 Vw [...] above final transcribed report. Impression and Plan Pulmonary Cariopulmonary arrest 2ndary to metabolic acidosis and resp failure. On vent, now extubated 02/25 Acute resp failure requiring mechanical ventilation, extubated 02/22 and reintubated 02/22 2ndary to increased WOB. On MV for 4 days and now extubated 02/25 doing well 2L HF NC now PMHx: DUSTY uses CPAP Cardiac Cardiopulmonary arrest s/p left hip decub debridement 02/20 PMHx: DM, HTN Neuro ANOx4 PMHx: paraplegia since age 8 GI Stable Renal Acute renal failure Acute metabolic acidosis, improved Cr 3.13 (prior 3.3) Prerenal azotemia, and possible ATN per nephrology Urine output: +184 mL Electrolytes: Hypernatremia, hypokalemia Infectious Disease Septic shock, now resolved Presented initially with LLL PNA and Left hip decubitus ulcer s/p debridement x2 Cultures: Neg ABX: IV zosyn Endocrine Goal glucose 140-180 PMHx: DM Plan: O2 requirements: 2L HF NC AB/28 stable Lab work shows: Hypernatremia, hypokalemia, elevated cr, no leukocytosis, stable H&H Cultures: Blood: neg, Sputum: neg, PNA PCR: n/a, Viral panel: n/a, MRSA: neg, Urine: neg Antibiotics: IV zosyn (Start date: 02/22) Images: CXR 02/26: no interval changes Medications: Nebulizers: duoneb q4h Procedures: left hip debridement 02/20 Consultants: nephrology, ID, pulm, general surgery PT/OT? yes Speech Eval? pending Nutrition/Feeds: NG, pending speech eval Insulin coverage: Lantus 14 U BID, sliding scale q6h DVT/GI ppx: Heparin/protonix CODE status: full code TODAYS PLANS: ???Currently on 2 L high flow nasal cannula ??? Titrate FiO2 to maintain O2 stats greater than 92% ??? Otherwise hemodynamically stable, off pressors ??? Electrolytes: Hypernatremia, hypokalemia. Replace per protocol. Continue free water through NG tube. We will follow-up on sodium tomorrow, patient is ANO x4, without symptomatology. ??? Creatinine elevated but downtrending 3.13 (prior 3.3). Nephrology following. Avoid nephrotoxic agents. Strict I's and O's. ??? Pancultures are negative, on IV Zosyn for 6 days. Continue to monitor and potentially de-escalate antibiotics within 7 to 10 days. ID is following. ??? Status post left hip debridement, with wound VAC. Continue per wound care recommendations. ???Initiated DVT prophylaxis with heparin 5000 subcu every 8 hours. Monitor for signs of bleeding. Check CBC in the morning. Professional Services I have personally performed a [id number]-eh-[id number] diagnostic evaluation on this patient. I have reviewed labs, radiologic data and agree with the care plan. Patient remains critically ill at this time and needs higher level of care and decision making due to complexity of disease. Plan was discussed with patient???s nurse, respiratory therapist, pharmacist, dietitian and case management at bedside. Clinical condition and plan discussed with patient and family. Answered all questions. Critical care time spent providing direct care to this patient so far is 45 minutes documented in this encounter Plan of Treatment Not on file documented as of this encounter Visit Diagnoses Not on filedocumented in this encounter
--- OUTSIDE RECORDS SUMMARY | 2025-02-21 13:39 | XMS_ITS | Encounter Summary ---
Author Organization [employer] Address [address] [place] [address] Care Team Providers Care Corrections Lieutenant Name Role Phone Unavailable Primary Care Provider Unavailabl e Encounter Details Date Type Department Care Team (Late st Contact Info) Description 02/27/2022 Transcribed Document [facility] [place] Family Medicine [facility] [place] [address] ProviderFlorentino MD [address] [place] [address] Social History Tobacco Use Types Packs/Day Years Used Date Smoking Tobacco: Never Assessed Comments Unknown Sex and Gender Information Value Date Recorded Sex Assigned at Not on file Legal Sex Female 1:44 PM CDT Gender Identity Not on file Sexual Orientation Not on file documented as of this encounter Miscellaneous Notes * Cerner Conversion Note - Florentino ProviderMD - 02/27/2022 3:00 AM CDT Nutrition Assessment Entered On: 02/27/2022 7:28 EDT Performed On: 02/27/2022 14:29 EDT by Elisa Onofre Non Emp Dietitian Nutrition Assessment Nutrition Assessment Reason : Follow Up Elisa Onofre Non Emp Dietitian - 02/27/2022 7:28 EDT Current Nutrition Regimen Comment : 02/27: high EN f/up. Pt failed LITIGATION DOCKET MANAGER eval yesterday however EN was not resumed yesterday per pulm d/t need for bipap. Plans for repeat LITIGATION DOCKET MANAGER eval today. Discussed EN with nsg, if pt does not pass, consider replacing NGT with post-pyloric corpak or feed in between bipap sessions. Will continue to monitor closely for findings from LITIGATION DOCKET MANAGER and communicate with nsg addendum: noted LITIGATION DOCKET MANAGER passed pt for regular diet w/ thin liquids - RD to order Glucerna + Prasanth 02/26: check-on. Pt discussed during MDR, EN held yesterday for extubation, was never resumed per nsg. NGT remains in place. LITIGATION DOCKET MANAGER eval ordered for today. 02/24: Sceen - vent in ICU. Pt [...] shock, ARF PMH: paraplegia, hyperlipidemia, DM, Labs: Na 148, K 3.2, BUN 50, Cr 3.12 Meds: glargine (14 U), SSI, PPI, abx Drips: precedex GI: LBM 02/27, +BS, +NGT Skin: stg 3 trochanter L Diet: NPO (Was w/ 50% intakes x1 meal recorded) EN: Off (was Vital HP @ 20 mL/hr) Ht: 64 in Wt: 94.2 kg, no new wt (02/27) EMR Wt hx: no wt hx available per EMR BMI: 35.6 IBW/%IBW: 120#/172% Est Needs: 0594-1827 kcals (11-14 kcals/kg), ~109 g pro (>2 g pro/kg IBW) Elisa Onofre Non Emp Dietitian - 02/27/2022 14:28 EDT Nutrition Diagnoses Oral or Nutrition Support Intake : Inadequate oral intake Oral or Nutr Support Intake Related To : recent extubation, failed LITIGATION DOCKET MANAGER eval Oral or Nutr Support Intake Evidenced by : NPO, awaiting LITIGATION DOCKET MANAGER eval Oral or Nutrition Support Intake Status : Active Nutrient Intake : Increased nutrient needs Nutrient Intake Related to : skin integrity Nutrient Intake As Evidenced by : Hip ulcer Nutrient Intake Status : Active Increased Nutrient Needs Comment : protein Elisa Onofre Non Emp Dietitian - 02/27/2022 9:35 EDT Nutrition Interventions Meals and Snacks : Meals and snacks other Meals and Snacks Other Comment : In the event pt passes LITIGATION DOCKET MANAGER eval rec 60g CHO diet, defer textures and consistencies to LITIGATION DOCKET MANAGER Enteral/Parenteral Nutrition : Enteral/Parenteral nutrition other Enteral/Parenteral Nutrition Comment : If pt fails LITIGATION DOCKET MANAGER eval, rec post-pyloric corpak placement and resume Vital HP @20 mL/hr, advance 10 mL/hr q 4-6 hrs to goal @55 mL/hr Elisa Onofre Non Emp Dietitian - 02/27/2022 9:35 EDT Monitoring/Evaluation Energy Intake : Total energy intake Food Intake : Amount of food Enteral Nutrition Intake : Tube Feeding Tolerance Protein Intake : Total protein Weight Status : Weight Maintanence Gastrointestinal Function : Bowel Function Integumentary : Pressure Ulcer Status Glucose/Endocrine Profile : Glucose, fasting, Glucose, casual Elisa Onofre Non Emp Dietitian - 02/27/2022 9:35 EDT Nutrition Recommendations Dietitian Recommendations : 1. If pt fails LITIGATION DOCKET MANAGER eval, rec post-pyloric corpak placement and resume Vital HP @20 mL/hr, advance 10 mL/hr q 4-6 hrs to goal @55 mL/hr (provides 1210 kcals, 106 g pro). FW per MD Goal: meet est needs 2. In the event pt passes LITIGATION DOCKET MANAGER eval rec 60g CHO diet, defer textures and consistencies to LITIGATION DOCKET MANAGER. RD to monitor for need and acceptance of ONS at f/up if pt on diet Goal: safe swallow 3. Monitor BG, adjust insulin PRN Goal: 110-140 mg/dL 4. Weigh pt 1-2x/wk Goal: no significant changes in wt Nutritional risk: High Elisa Onofre Non Emp Dietitian - 02/27/2022 9:35 EDT Electronically signed by Bruce Shell Conversion Kieselgu[employer] Regenerator Operator Cerner at 12/21/2022 5:02 PM CDT documented in this encounter Plan of Treatment Not on file documented as of this encounter Visit Diagnoses Not on filedocumented in this encounter
--- OUTSIDE RECORDS SUMMARY | 2025-02-21 13:39 | XMS_ITS | Encounter Summary ---
Author Organization [facility] Address [address] [place] [address] Care Team Providers Care Director Athletic Name Role Phone Unavailable Primary Care Provider Unavailabl e Encounter Details Date Type Department Care Team (Late st Contact Info) Description 05/02/2022 Transcribed Document [facility] [place] [address] [place] [address] ProviderFlorentino MD [address] [place] [address] Social History Tobacco Use [...] Note - Florentino Lynne MD - 05/02/2022 3:55 PM CDT On Going Discharge Planning Entered On: 05/02/2022 15:55 EDT Performed On: 05/02/2022 15:55 EDT by TRISTAN TAYLOR RN-Vacuum Form OperatorCare Asst Progress Note Discharge Arrangements : Patient Post-Acute [...] Did you Attend Multidisciplinary Rounds? : No TRISTAN TAYLOR, RN-Vacuum Form Operator - 05/02/2022 15:55 EDT Narrative Progress Note Narrative Progress Note : RRS HIGH, LOS 3, ELOS 3 Cefepime and micafungin iv until 9.8-Per [employer], rxs at at home are covered at 100%--PICC was refused by pt so will get groshong but can't be placed until 9.6. Pt is seeking [facility] and per liaison, [facility] administration has declined referral. Referrals were made 9.1 and per signature, the denial was based on pt's insurance. Preferred snf, [facility] and [facility] both declined. One interested facility[facility] was updated. Per [facility], pt's insurance is A[employer] of [place] and there are no accepting HH agencies in pt's home zipcode. Dtr states pt's primary is [place] Medicaid but [facility] shows as 2nd and D-I-L cannot produce paperwork that shows [place] Medicaid as primary. DCP may include completion of iv abx in hospital as she will not have HH to monitor iv abx and groshong and pt does not have transportation to out infusion center, stating he son and D-I-L work. Historical Progress Note : RRS HIGH, LOS 2, ELOS 3 Discharged 8.27 and readmitted 8.28 Sepsis-uti Cefepime and micafungin iv until 9.8 Per [facility], pt's insurance is aetna Medicaid with 2nd as [place] Medicaid. Pt agreed to snf-[facility] referral with pref for [facility]. Per colleene, pt is declined. Pt agreed to [facility] and 2nd to [facility]. If pt discharges to home because there are no acceting snfs, only insurance accepted [place] NOT [place] Medicaid. Will need precert for snf and potential transportation. TRISTAN TAYLOR, PRIMO-Vacuum Form Operator - 05/01/22 15:43:47 Patient is now on IV abx, Receiving wound care. Patient stated that she wants to go home. Family informed nursing that patient needs rehab. Nursing told family that they need to discuss this with patient and patient continues to state she wants to go home. Cm called [facility]. They can only accept patient if she truly does have straight Medicaid and not Aetna. CM will confirm insurance on 05/01/2022. CM will continue to follow. ERIK GALARZA, Driver Trainer-Box Spring Maker - 04/30/22 14:16:00 TRISTAN TAYLOR, PRIMO-Vacuum Form Operator - 05/02/2022 15:55 EDT Electronically signed by Sumaya [facility] Conversion Security Rover Cerner at 12/21/2022 5:05 PM CDT documented in this encounter Plan of Treatment Not on file documented as of this encounter Visit Diagnoses Not on filedocumented in this encounter
--- OUTSIDE RECORDS SUMMARY | 2025-02-21 13:39 | XMS_ITS | Encounter Summary ---
Author Organization [employer] Address [address] [place] [address] Care Team Providers Care Freight Breaker Name Role Phone Unavailable Primary Care Provider Unavailabl e Encounter Details Date Type Department Care Team (Late st Contact Info) Description 03/15/2022 Transcribed Document [facility] [place] [address] [place] [address] ProviderFlorentino MD [address] [place] [address] Social History Tobacco Use Types Packs/Day Years Used Date Smoking Tobacco: Never Assessed Comments Unknown Sex and Gender Information Value Date Recorded Sex Assigned at Not on file Legal Sex Female 1:44 PM CDT Gender Identity Not on file Sexual Orientation Not on file documented as of this encounter Miscellaneous Notes * Cerner Conversion Note - Florentino ProviderMD - 03/15/2022 5:00 AM CDT Chart Check - Review Order Profile Entered On: 03/15/2022 5:13 EDT Performed On: 03/15/2022 5:00 EDT by Nicole Stewart NON EMP RN Chart Check Powerplans Initiated/Discontinued as Appropriate : Yes All Active Orders Reviewed : Yes Nicole Stewart NON EMP RN - 03/15/2022 5:13 EDT documented in this encounter Plan of Treatment Not on file documented as of this encounter Visit Diagnoses Not on filedocumented in this encounter
--- OUTSIDE RECORDS SUMMARY | 2025-02-21 13:39 | XMS_ITS | Encounter Summary ---
Author Organization [employer] Address [address] [place] [address] Care Team Providers Care Tying In Machine Operator Name Role Phone Unavailable Primary Care Provider Unavailabl e Encounter Details Date Type Department Care Team (Late st Contact Info) Description 03/16/2022 Transcribed Document [facility] [place] Family Medicine [address] [place] [address] ProviderFlorentino MD [address] [place] [address] Social History Tobacco Use Types Packs/Day Years Used Date Smoking Tobacco: Never Assessed Comments Unknown Sex and Gender Information Value Date Recorded Sex Assigned at Not on file Legal Sex Female 1:44 PM CDT Gender Identity Not on file Sexual Orientation Not on file documented as of this encounter Miscellaneous Notes * Cerner Conversion Note - Florentino ProviderMD - 03/16/2022 12:20 PM CDT Patient: ALYSSA AZUL Age: 61 Years Sex: Female : 1960 Subjective Doing great. Has still been off of oxygen and maintaining saturations. Afebrile, hemodynamically stable. BUN and creatinine continue to trend down. Having good urine output. Eager to go to rehab. Vital Signs T: 36.8 ??C TMIN: 36.8 ??C TMAX: 37.3 ??C HR: 84(Monitored) RR: 16 BP: 145/80 SpO2: 94% HT: 162.56 cm WT: 90.23 kg BMI: 34.14 Oxygen Settings (Last) Oxygen Therapy Mode: Room air (03/16/22 10:45:00) Oxygen Flow Rate: 2 Liter/Min (03/14/22 08:47:00) Intake & Output Totals Last 24 Hours (7a-7a) Input Total: 255 mL Output Total: 1500 mL Balance: -1245 mL Physical Exam General: Alert, obese, no [...] with their clinic in 6 weeks S/p [facility] at OSH on 02/21 S/p bronchoscopy 03/04 [...] baseline. Waiting on pre-CERT. On oral antibiotics (duration?). On room air. At d/c will likely need -wound care, PT OT. Pulm f/u Tentatively at d/c will be going to -[facility] and rehab Expected d/c date -medically ready as of 03/15 VTE Prophylaxis - Medical Heparin 5,000 Units, SubCutaneous, Inj, Q8H, Routine, Start 03/01/22 22:00:00 EDT, 03/01/22 19:01:00 EDT (DIANA GENI A) Sequential Compression Device Start: 03/01/22 19:03:00 EDT, Bilateral, Length: Knee High, While patient is in bed, [facility] Sequential Compression Device Start: 03/01/22 18:51:00 EDT, Bilateral, Length: Knee High, While patient is in bed, Continuous Order ([facility] sanjuanita, PHYSICIAN-CLINIC) Medications acetaminophen, 650 mg= 2 [...] Test Result Date/Time Sodium Level 138 mmol/L 03/16/2022 05:09 EDT Potassium Level 4.1 mmol/L 03/16/2022 05:09 EDT Chloride Level 108 mmol/L 03/16/2022 05:09 EDT Carbon Dioxide Level 22 mmol/L 03/16/2022 05:09 EDT Anion Gap 12 03/16/2022 05:09 EDT Glucose Level 133 mg/dL (High) 03/16/2022 05:09 EDT Blood Urea Nitrogen 56 mg/dL (High) 03/16/2022 05:09 EDT Creatinine Level 1.70 mg/dL (High) 03/16/2022 05:09 EDT eGFR 37 mL/min/1.73m2 (Low) 03/16/2022 05:09 EDT eGFR NonAfrican 31 mL/min/1.73m2 (Low) 03/16/2022 05:09 EDT Bun/Creatinine 32.9 (High) 03/16/2022 05:09 EDT Calcium Level 9.0 mg/dL 03/16/2022 05:09 EDT Device Comment 1 Notified Nurse RBV 03/16/2022 11:36 EDT Device Comment 1 Notified Nurse RBV 03/16/2022 05:42 EDT Device Comment 1 Notified Nurse RBV 03/15/2022 19:56 EDT Device Comment 1 Notified Nurse RBV 03/15/2022 15:25 EDT Glucose POC2 202 mg/dL (High) 03/16/2022 11:36 EDT Glucose POC2 135 mg/dL (High) 03/16/2022 05:42 EDT Glucose POC2 147 mg/dL (High) 03/15/2022 19:56 EDT Glucose POC2 163 mg/dL (High) 03/15/2022 15:25 EDT WBC 6.4 K/uL 03/16/2022 05:09 EDT RBC 2.72 Million/uL (Low) 03/16/2022 05:09 EDT Hgb 7.7 g/dL (Low) 03/16/2022 05:09 EDT Hct 24.3 % (Low) 03/16/2022 05:09 EDT MCV 89.3 fL 03/16/2022 05:09 EDT MCH 28.3 pg 03/16/2022 05:09 EDT MCHC 31.7 Gram/dL (Low) 03/16/2022 05:09 EDT Platelet Count 137 K/uL (Low) 03/16/2022 05:09 EDT MPV 11.2 fL 03/16/2022 05:09 EDT RDW 15.8 % (High) 03/16/2022 05:09 EDT Neutrophil Percent Man 52 % 03/16/2022 05:09 EDT Band Percent Man 6 % 03/16/2022 05:09 EDT ANC # 4 K/uL 03/16/2022 05:09 EDT Lymph Percent Man 22 % (Low) 03/16/2022 05:09 EDT ALYC # 1 K/uL 03/16/2022 05:09 EDT Grainger Percent Man 4 % 03/16/2022 05:09 EDT Eos Percent Man 4 % (High) 03/16/2022 05:09 EDT Baso Percent Man 1 % 03/16/2022 05:09 EDT [place] Percent Man 3 % (High) 03/16/2022 05:09 EDT Myelo Percent Man 7 % (High) 03/16/2022 05:09 EDT Promyelo Percent Man 1 % (High) 03/16/2022 05:09 EDT RBC Morphology Abnormal 03/16/2022 05:09 EDT Anisocytosis 1+ (Abnormal) 03/16/2022 05:09 EDT Polychromasia 1+ (Abnormal) 03/16/2022 05:09 EDT Ovalocytes 1+ (Abnormal) 03/16/2022 05:09 EDT Baso Stippling 1+ (Abnormal) 03/16/2022 05:[address] Estimate Decreased (Abnormal) 03/16/2022 05:09 EDT documented in this encounter Plan of Treatment Not on file documented as of this encounter Visit Diagnoses Not on filedocumented in this encounter
--- OUTSIDE RECORDS SUMMARY | 2025-02-21 13:39 | XMS_ITS | Encounter Summary ---
Author Organization [facility] Address [address] [place] [address] Care Team Providers Care Railroad Car Truck Builder Name Role Phone Unavailable Primary Care Provider Unavailabl e Encounter Details Date Type Department Care Team (Late st Contact Info) Description 05/02/2022 Transcribed Document [facility] [place] [address] [place] [address] ProviderFlorentino MD [address] [place] [address] Social History Tobacco Use Types Packs/Day Years Used Date Smoking Tobacco: Never Assessed Comments Unknown Sex and Gender Information Value Date Recorded Sex Assigned at Not on file Legal Sex Female 1:44 PM CDT Gender Identity Not on file Sexual Orientation Not on file documented as of this encounter Miscellaneous Notes * Cerner Conversion Note - Florentino Lynne MD - 05/02/2022 1:47 PM CDT UM Authorization Entered On: 05/02/2022 13:48 EDT Performed On: 05/02/2022 13:47 EDT by SARAH MORALES RN Primary Insurance Authorization Authorization and Policy Numbers : Insurance 1 Health Plan: [facility] Policy Number: [id number] Authorization Number: SEE NOTES Insurance Primary Name : [facility] - [id number] Authorization Status-Primary : Admit approved Auth/Referral Contact Name-Primary : DC+ Reference Number-Primary : [id number]--[place] Medicaid #[id number] Number of Days Authorized-Primary : 13 Day(s) Authorized Service Begin Date-Primary : 04/08/2022 EDT Authorized Service End Date-Primary : 04/21/2022 EDT Historical Authorization Comments-Primary : Comment 1: Discharge summary faxed. (Mallory Sanchez, Hands Parter 2022 14:24) Comment 2: Faxed c/s 04/25 via [employer] (SARAH MORALES RN 04/25/2022 14:19) Comment 3: PER JOAQUIN @ [facility] THE MANAGERS ARE REQUESTING CLINICAL UPDATE THEY FEEL THEY WILL BE RESPONSIBLE FOR THIS BILL (Digna Kidd, Rn-Utilization Review 04/24/2022 14:50) Comment 4: Information,verified by placing a call to [place] Medicaid. Per the key account representative spoken to, Keila Lassiter, the care provided to this patient will be technically denied due to late notification,since the patient was admitted on 04/08/2022 and coverage with [place] Medicaid, was initiated on 03/20/2022. She further stated that the reference number provided (#[id number]) is not for billing purpose (Shilpi [address], PRIMO 04/18/2022 11:13) Comment 5: CALL RECEIVED ROM ELIZA /francheska [employer] MESSAGE LEFT STATING THAT PT IS NO LONGER AN AETNA MEMBER EFFECTIVE 03/29/2022, THEREFOR THE APPROVAL GRANTED HAS BEEN RESENDED. PER ELIZA PT IS NOW STRAIGHT MEDICAID. (Shilpi Street, PRIMO 04/18/2022 09:48) Comment 6: Rec faxed outcome of p2p scanned it to denials 2021 file and placed in tray on [employer] desk (SHERIF LYNCH, Riprap Worker 04/16/2022 09:42) Comment 7: Per fax received 04/16 @ 0914am approved after p2p completed. Approved 04/08-04/21 NRD 04/22 (SARAH MORALES RN 04/16/2022 09:32) Comment 8: CLINICAL UPDATE FAXED VIA [employer] 04/11-04/15 ([address], PRIMO 04/15/2022 16:00) Comment 9: Per call to [facility] p2p line Luisa stated p2p took place yestereday 04/14 and denial was OT/approved. Luisa did not have any idea regarding when c/s would be due. VM left for claim review medical director Sharon. (SARAH MORALES RN 04/15/2022 12:15) Comment 10: Per Dr Perez she is agreeable to attempt p2p on Saturday 04/14. Called Logan back and he scheduled for thursday @ 2pm with Dr William calling Dr Cabello. (SARAH MORALES RN 04/11/2022 11:09) Comment 11: Per Katie she did not receive a call to complete this p2p. Called back in & per Orville he can reschedule with a physician. Informed him that I would need to reach out to a diff physician as the one from yesterday is off service now. He stated I can call back in and reschedule. (SARAH MORALES RN 04/11/2022 10:30) Comment 12: Ana Lilia agreed to attempt p2p. Scheduled for 04/[address] William calling Katie (SARAH MORALES RN 04/09/2022 15:26) Comment 13: Message sent to [facility] for p2p. She has agreed to attempt. (SARAH MORALES RN 04/09/2022 13:02) Comment 14: PER AVAILITY IP AUTH PENDED. CLINICAL FAXED VIA [employer] (Digna Kidd Rn-Utilization Review 04/09/2022 11:31) Comment 15: Denied per fax 04/08/22 @ 1635 no resoning noted. Placed in Denials 2021 folder. (Mallory Sanchez, Hands Parter 04/09/2022 09:43) SARAH MORALES RN - 05/02/2022 13:47 EDT documented in this encounter Plan of Treatment Not on file documented as of this encounter Visit Diagnoses Not on filedocumented in this encounter
--- OUTSIDE RECORDS SUMMARY | 2025-02-21 13:39 | XMS_ITS | Encounter Summary ---
Author Organization [employer] Address [address] [place] [address] Care Team Providers Care Silverware Etcher Name Role Phone Unavailable Primary Care Provider Unavailabl e Encounter Details Date Type Department Care Team (Late st Contact Info) Description 05/02/2022 Transcribed Document [facility] [place] Family Medicine [address] [place] [address] ProviderFlorentino MD [address] [place] [address] Social History Tobacco Use Types Packs/Day Years Used Date Smoking Tobacco: Never Assessed Comments Unknown Sex and Gender Information Value Date Recorded Sex Assigned at Not on file Legal Sex Female 1:44 PM CDT Gender Identity Not on file Sexual Orientation Not on file documented as of this encounter Miscellaneous Notes * Cerner Conversion Note - Florentino ProviderMD - 05/02/2022 3:35 PM CDT Evaluation, Occupational Therapy Entered On: 05/04/2022 12:01 EDT Performed On: 05/04/2022 11:26 EDT by MELANI QUIJANO, OTR/L General Information, OT Visit Type, OT : Initial evaluation Patient Orders : Order Date Order Ordering MD 05/02/2022 15:35 Occupational Therapy Evaluation and Treatme Ordered By: MICHELLE LORA MD-INT Active Diagnoses : 2022 02:25 Pressure ulcer of unspecified buttock, unspecified stage 2022 01:57 Chronic kidney disease, stage 3 unspecified 2022 01:56 Other symptoms and signs involving the genitourinary system 04/28/2022 12:00 Hypotension, unspecified 04/28/2022 12:00 Type 2 diabetes mellitus without complications Therapy Diagnosis, OT : Decrease in Ind with ADL's and fxl transfers due to weakness and medical condition Admission Date : 2022 00:16 Co-treated by, OT : certified dental assistant (LUMITE INJECTOR) Assisted by, OT : assistive technology specialist/aide Personal Devices : Personal Devices Glasses Assistive Devices : Assistive Devices No Devices Recorded General Information Comment, OT : 6i2 yr old female admit with hypotension, sepsis, recurrent UTI, and acute/chronic kidney failure Hx: HTN, paraplegia, L buttock/hip wound s/p wound vac MELANI QUIJANO OTR/L - 05/04/2022 11:47 EDT General Status Patient Received Status : Supine in bed Treatment Start Time : 05/04/2022 10:58 EDT Patient Left Status : All needs met and within reach, Other: Up in wheelchair with PT RN/PCT Informed Comment : Billy TILLMAN'd to see pt Treatment End Time : 05/04/2022 11:26 EDT Treatment Time : 28 Minute(s) Actual Treatment Time : 32 Minute(s) (Comment: 4 min chart review, collaboration, and clinical reasoning [MELANI QUIJANO OTR/L 05/04/2022 11:47 EDT] ) MELANI QUIJANO OTR/L - 05/04/2022 11:47 EDT History and Environment, OT Prior LOF for IADLs, OT : Wheelchair mobility assistance only needed for long distances MELANI QUIJANO OTR/L - 05/04/2022 12:02 EDT Living Situation, Therapy : Home Patient Lives With : Adult Child/Children Persons Assisting Patient at Home : Child/Children Persons Providing Information : Patient Home Equipment, Therapy : Ramp, access, Bed, Board, slide, Commode, Wheelchair Bed : Bed, hospital Commode : Commode, bedside Wheelchair : Wheelchair, standard Home Setup : One story Bedroom Location : Main level Bathroom #1 Location : Main level Stairs : Yes Stair Location(s) : Other: Ramp access Ramp : Yes MELANI QUIJANO OTR/L - 05/04/2022 11:47 EDT MELANI QUIJANO OTR/L - 05/04/2022 11:47 EDT Prior LOF Bathing, OT : Assist needed MELANI QUIJANO OTR/L - 05/04/2022 12:02 EDT Prior LOF Bed Mobility : Assist needed Prior LOF Upper Body Dressing, OT : Independent Prior LOF Lower Body Dressing, OT : Assist needed Prior LOF Toileting : Ind with setup and appropriate supplies Prior LOF Transfer : Assist needed Prior LOF Grooming, OT : Independent Prior LOF Wheel Chair Mobility : Independent Prior LOF for IADLs, OT : Assist needed History and Environment Comment, OT : Before initial hospitalization, pt was fully Ind and lived alone. Now lives with son. She was only home two days with son before return to hospital. MELANI QUIJANO OTR/[place] - 05/04/2022 11:47 EDT Upper Extremity Upper Extremity Dominance : Left Right UE Active ROM : WFL Right UE Strength : WFL Left UE Active ROM : WFL Left UE Strength : WFL Right UE Strength : WFL Left UE Strength : WFL MELANI QUIJANO OTR/[place] - 05/04/2022 11:47 EDT Right Upper Extremity MMT Shoulder Flexion 0-180 : 4/good Shoulder Extension 0-60 : 4/good Shoulder Abduction 0-180 : 4/good Shoulder Adduction 0-180 : 4/good Shoulder Internal Rotation 0-90 : 4/good Shoulder External Rotation 0-90 : 4/good Elbow Flexion 0-150 : 4/good Elbow Extension 0-0 : 5/normal Wrist Flexion 0-80 : 4/good Wrist Extension 0-70 : 4/good Forearm Pronation 0-70 : 4/good Forearm Supination 0-85 : 4/good Ulnar Deviation 0-45 : 4/good RadialDeviation 0-20 : 4/good MELANI QUIJANO OTR/[place] - 05/04/2022 11:47 EDT Left Upper Extremity MMT Shoulder Flexion 0-180 : 4/good Shoulder Extension 0-60 : 4/good Shoulder Abduction 0-180 : 4/good Shoulder Adduction 0-180 : 4/good Shoulder Internal Rotation 0-90 : 4/good Shoulder External Rotation 0-90 : 4/good Elbow Flexion 0-150 : 4/good Elbow Extension 0-0 : 5/normal Wrist Flexion 0-80 : 4/good Wrist Extension 0-70 : 4/good Forearm Pronation 0-70 : 4/good Forearm Supination 0-85 : 4/good Ulnar Deviation 0-45 : 4/good RadialDeviation 0-20 : 4/good MELANI QUIJANO OTR/[place] - 05/04/2022 11:47 EDT Self Care/Home Management, OT Self Feeding Assist Level, OT : Independent, complete Grooming Assist Level, OT : Assist, minimal Bathing Assist Level, OT : Assist, moderate Upper Body Dressing Assist Level, OT : Supervision or set-up Lower Body Dressing Assist Level, OT : Assist, moderate Toileting Assist Level : Assist, moderate Toilet Transfer Assist Level : Assist, maximal MELANI QUIJANO OTR/L - 05/04/2022 15:35 EDT Functional Mobility Mobility Grid Supine to Sit : Rehab Moderate assistance (Comment: could have been Min A excpet IV at her wrist [MELANI QUIJANO OTR/[place] Zavala 05/04/2022 11:47 EDT] ) Bed to Chair : Rehab Maximal assistance (Comment: bed to w/c due to having not used a slide board before and poor IV location [MELANI QUIJANO OTR/L - 05/04/2022 11:47 EDT] ) MELANI QUIJANO OTR/[place] 05/04/2022 11:47 EDT AM PAC Daily Activity Putting On/Taking Off Lower Body Clothes : A little Bathing (Washing, Rinsing, Drying) : A lot Toileting Includes Toilet, Bedpan, Urinal : A lot Putting On/Taking Off Upper Clothing : None Taking Care of Grooming : None Eating Meals : None AM-PAC Daily Activity Raw Score : 19 AM-PAC Daily Activity Standardized Score : 40.22 EMLANI QUIJANO OTR/L - 05/04/2022 15:35 EDT Image 3 - Images currently included in the form version of this document have not been included in the text rendition version of the form. Cognition Assessment, OT Orientation : Oriented x 4 MELANI QUIJANO OTR/L - 05/04/2022 11:47 EDT Indication Assessment, OT Occupational Therapy Indicated : Yes Problem List, OT : Impaired, bed mobility, Impaired, activities daily living, Impaired, endurance tolerance, Impaired functional mobility, Impaired, muscle tone, Impaired, sensation, Impaired, sitting balance, Impaired, standing balance, Impaired, strength, Impaired, transfers Potential Barriers, OT : None evident Rehabilitation Potential, OT : Good MELANI QUIJANO OTR/[place] - 05/04/2022 11:47 EDT Plan of Care, OT OT Tx Plan/Goals Established w Patient : Yes OT Frequency Rehab : Five days per week OT Duration Rehab : Fourteen days OT Treatments Planned : Activities of daily living, Balance training, Functional mobility training, Safety education, Therapeutic activities, Therapeutic exercises Plan of Care Comment, OT : POC initiated MELANI QUIJANO OTR/[place] - 05/04/2022 11:47 EDT Half-Way Goals, OT Grooming LTG Grid Goal #1 Activity : Grooming Assist : Independent, modified Date to Meet : 05/18/2022 EDT Goal Status : Initial goal Comment : Unsupported EOB MELANI QUIJANO OTR/[place] - 05/04/2022 11:47 EDT Toilet Transfer LTG Grid Goal #1 Activity : Toilet Transfer, Sliding Board Date to Meet : 05/18/2022 EDT Goal Status : Initial goal MELANI QUIJANO OTR/[place] - 05/04/2022 11:47 EDT Bed Mobility/ Bed Transfer LTG Grid Goal #1 Activity : Bed Mobility, Supine to Sit Assist : Independent, modified Date to Meet : 05/18/2022 EDT Goal Status : Initial goal MELANI QUIJANO OTR/L - 05/04/2022 11:47 EDT Wheelchair Transfer LTG Grid Goal #1 Activity : Wheelchair, Standard, Sliding Board Assist : Independent, modified Date to Meet : 05/18/2022 EDT Goal Status : Initial goal MELANI QUIJANO OTR/L - 05/04/2022 11:47 EDT Treatment Note Subjective Comment : Pt pleasant, cooperative, and agreeable to participate in skilled OT eval/interview Pt highly motivated and states, I know I can get stronger again and I want to go to rehab to do so. Patient's Response to Treatment : Pt tolerated well Additional Objective Information : Pt semi supine in bed on arrival and agreed to participate. Pt with mod A supine to sit EOB due to inability to use RUE well to push on the bed due to IV site. Pt participated in green theraband mod to max resistance 15 reps x1 set of elbow flex/ext with biceps and triceps concentration, cross lateral punches, and anterior punches, as well as AROM superior punches. During RUE initial attempt, pt had LOB to L sitting EOB, but able to re-adjust and push to center with supervision. Pt seated ~10 min EOB with supervision and 1 UE support. Pt with Max A slide board transfer to wheelchair from bed. Once again, more assistance required than likely due to inability to appropriately use RUE. Pt left up in wheelchair with PT in hallway and all needs met. Assessment : Pt will greatly benefit from skilled OT services to improve strength, balance, ax tolerance, endurance, safety, education, and training for increased Ind in ADL's, fxl transfers and participation in valued daily ax's. Pt demonstrates excellent motivation and effort throughout session with good overall rehab potential. IV site on her R wrist limited greatest Ind for bed mobility and transfers as she uses her arms for majority of movement. She had good endurance and will benefit greatest from inpatient rehab. Plan for Treatment : POC initiated MELANI QUIJANO OTR/L - 05/04/2022 11:47 EDT Pain Assessment Pain Scaled Used : 0-10 Pain scale Pain Score Pre-Intervention : 0 MELANI QUIJANO OTR/L - 05/04/2022 11:47 EDT Image 1 - Images currently included in the form version of this document have not been included in the text rendition version of the form. Anticipated Discharge Needs, OT/PT Anticipated Discharge to : Unit, rehabilitation MELANI QUIJANO OTR/L - 05/04/2022 11:[address] [facility] OT Charges OT Ther Activities Ea 15 Min : 1 OT Eval Moderate Complexity : 1 MELANI QUIJANO OTR/L - 05/04/2022 11:47 EDT documented in this encounter Plan of Treatment Not on file documented as of this encounter Visit Diagnoses Not on filedocumented in this encounter
--- OUTSIDE RECORDS SUMMARY | 2025-02-21 13:39 | XMS_ITS | Encounter Summary ---
Author Organization [employer] Address [address] [place] [id number] Care Team Providers Care Nursing Informatics Clinical Analyst Name Role Phone Unavailable Primary Care Provider Unavailabl e Encounter Details Date Type Department Care Team (Late st Contact Info) Description 03/17/2022 Transcribed Document [facility] [place] [address] [place] [address] ProviderFlorentino MD [address] [place] [address] Social History Tobacco Use Types Packs/Day Years Used Date Smoking Tobacco: Never Assessed Comments Unknown Sex and Gender Information Value Date Recorded Sex Assigned at Not on file Legal Sex Female 1:44 PM CDT Gender Identity Not on file Sexual Orientation Not on file documented as of this encounter Miscellaneous Notes * Cerner Conversion Note - Florentino Lynne MD - 03/17/2022 11:21 AM CDT Patient: ALYSSA AZUL Age: 61 years Sex: Female : 1960 Associated Diagnoses: None Author: HIGINIO AREVALO MD-INF Antibiotics: augmentin and doxy CC: Sacral wound Subjective: Patient without acute changes remains on RA Patient is HD stable. Objective: Vitals Signs (last 24 hrs) Last Charted Minimum Maximum Temp 98.6 (MAR 17 10:35) 97.8 (MAR 17 05:37) H 99.8 (MAR 16 14:32) Apical HR 95 (MAR 16 18:36) 95 (MAR 16 18:36) 95 (MAR 16 18:36) Mon HR 88 (MAR 17 10:35) 72 (MAR 17 08:16) 98 (MAR 16 22:03) Resp Rate 16 (MAR 17 10:35) 16 (MAR 16 14:32) 20 (MAR 16 23:19) SBP 121 (MAR 17 10:35) 121 (MAR 17 10:35) H 165 (MAR 16 22:03) DBP 66 (MAR 17 10:35) 66 (MAR 17 10:35) 83 (MAR 16 22:03) MAP 80 (MAR 17 10:35) 80 (MAR 17 10:35) 102 (MAR 17 05:37) SpO2 94 (MAR 17 10:35) L 91 (MAR 16 20:11) 99 (MAR 16 20:16) PE: General: Patient will awaken and more [...] LABS: Labs (Last four charted values) WBC 6.5 (MAR 17) 6.4 (MAR 16) 6.5 (MAR 15) 6.4 (MAR 14) HB L 7.6 (MAR 17) L 7.7 (MAR 16) L 8.0 (MAR 15) L 7.6 (MAR 14) HCT L 24.2 (MAR 17) L 24.3 (MAR 16) L 25.5 (MAR 15) L 24.5 (MAR 14) Plt L 135 (FEB 18) L 137 (FEB 17) L 147 (FEB 16) L 127 (FEB 15) Na 141 (FEB 18) 138 (FEB 17) 138 (FEB 16) 137 (FEB 15) K 4.4 (FEB 18) 4.1 (FEB 17) 3.8 (FEB 16) 3.7 (MAR 14) Cl 111 (FEB 18) 108 (FEB 17) 106 (FEB 16) 104 (FEB 15) CO2 22 (FEB 18) 22 (FEB 17) 23 (FEB 16) 25 (FEB 15) BUN H 51 (FEB 18) H 56 (FEB 17) H 53 (FEB 16) H 57 (MAR 14) Cr H 1.60 (MAR 17) H 1.70 (MAR 16) H 2.00 (MAR 15) H 2.20 (MAR 14) Glu R H 176 (MAR 17) H 133 (MAR 16) H 152 (MAR 15) H 139 (MAR 14) Ca 9.1 (MAR 17) 9.0 (MAR 16) 9.4 (MAR 15) 8.8 (MAR 14) Lactic 0.5 (MAR 09) 0.5 (MAR 04) [...] soft tissue: Status post I&D x3 at with large open wound. -Acute hypoxic respiratory failure now extubated -Aspiration pneumonia - Cardiac arrest at outside hospital prior to transfer - CKD tire rebuilder at 1.8 - Anemia - paraplegia - Obesity - DM2 RECOMMENDATIONS/PLANS: - continue doxy 100 mg po bid x 2 weeks and Augmentin 500/125 mg po bid x 2 weeks -tire rebuilder down. - looking for placement. at risk for recurrent infections and aspiration. documented in this encounter Plan of Treatment Not on file documented as of this encounter Visit Diagnoses Not on filedocumented in this encounter
--- OUTSIDE RECORDS SUMMARY | 2025-02-21 13:39 | XMS_ITS | Encounter Summary ---
Author Organization [employer] Address [address] [place] [address] Care Team Providers Care Safety And Security Manager Name Role Phone Unavailable Primary Care Provider Unavailabl e Encounter Details Date Type Department Care Team (Late st Contact Info) Description 03/15/2022 Transcribed Document [facility] [place] Family Medicine [address] [place] [address] ProviderFlorentino MD [address] [place] [address] Social History Tobacco Use Types Packs/Day Years Used Date Smoking Tobacco: Never Assessed Comments Unknown Sex and Gender Information Value Date Recorded Sex Assigned at Not on file Legal Sex Female 1:44 PM CDT Gender Identity Not on file Sexual Orientation Not on file documented as of this encounter Miscellaneous Notes * Cerner Conversion Note - Historical ProviderMD - 03/15/2022 2:00 AM CDT Flight Superintendent Details Entered On: 03/15/2022 1:41 EDT Performed On: 03/15/2022 2:00 EDT by Nicole Stewart NON EMP RN Order Details Transport Mode Order Detail : Bed (including specialty) Isolation Precautions Order Detail : Standard Precautions Order Detail : 0 IV Order Detail : 1 Oxygen Order Detail : 0 Lift/Transfer : Maximal assist Central Line Order Detail : Yes Room Service : Not Appropriate Arterial Line : Yes Patient Needs Meds Crushed/Liquid : No Nicole Stewart NON EMP RN - 03/15/2022 1:41 EDT documented in this encounter Plan of Treatment Not on file documented as of this encounter Visit Diagnoses Not on filedocumented in this encounter
--- OUTSIDE RECORDS SUMMARY | 2025-02-21 13:39 | XMS_ITS | Encounter Summary ---
Author Organization [employer] Address [address] [place] [address] Care Team Providers Care Locomotive Oiler Name Role Phone Unavailable Primary Care Provider Unavailabl e Encounter Details Date Type Department Care Team (Late st Contact Info) Description 02/27/2022 Transcribed Document [facility] [place] Family Medicine [address] [place] [address] ProviderFlorentino MD [address] [place] [address] Social History Tobacco Use Types Packs/Day Years Used Date Smoking Tobacco: Never Assessed Comments Unknown Sex and Gender Information Value Date Recorded Sex Assigned at Not on file Legal Sex Female 1:44 PM CDT Gender Identity Not on file Sexual Orientation Not on file documented as of this encounter Miscellaneous Notes * Cerner Conversion Note - Florentino Lynne MD - 02/27/2022 10:32 AM CDT Patient: ALYSSA AZUL Age: 61 years Sex: Female : 1960 Associated Diagnoses: None Author: TORRES MARTINEZ MD-NEP Subjective Stable overnight Objective VS/Measurements Vitals Signs (last 24 hrs) Last Charted Minimum Maximum Temp 98.4 (FEB 27 04:00) L 96.1 (FEB 26 12:00) 98.0 (FEB 26 20:00) Apical HR 90 (FEB 26 13:18) 90 (FEB 26 13:18) 90 (FEB 26 13:18) Mon HR 68 (FEB 27 09:00) 57 (FEB 27 08:30) 71 (FEB 26 14:00) Resp Rate H 26 (FEB 27 09:00) L 10 (FEB 26 20:30) H 45 (FEB 26 20:20) SBP 136 (FEB 27 09:00) 110 (FEB 27 02:00) H 181 (FEB 26 12:00) DBP 88 (FEB 27 09:00) L 58 (FEB 26 15:00) H 99 (FEB 26 14:30) MAP 108 (FEB 27 09:00) 78 (FEB 27 02:00) 131 (FEB 26 12:00) SpO2 95 (FEB 27 09:00) L 89 (FEB 26 20:24) 100 (FEB 27 01:00) Intake & Output Totals Last 24 Hours (7a-7a) Intake (19 Events) Medications (154.97 mL) Enteral Additional Water Given (1800 mL) Output (10 Events) Ostomy Output, Genitourinary: (1770 mL) Input Total: 1954.97 mL Output Total: 1770 mL Balance: 184.97 mL Physical exam contact may be limited to avoid COVID-19 exposure General: No acute distress, WD elderly WF. Eye: Pupils are equal, round and reactive to light, Normal conjunctiva. HENT: Normocephalic, + BiPAP, + NG. Neck: Supple, No jugular venous distention. Respiratory: Respirations are non-labored, Symmetrical chest wall expansion, On vent. Cardiovascular: Trace edema. Gastrointestinal: Non-distended. Genitourinary: + Valenzuela. Integumentary: Warm, Dry, No rash. Neurologic: Not alert, Not oriented. Psychiatric: Not cooperative, Not appropriate mood & affect. Results Review Labs (Last four charted values) WBC 9.0 (JAN 30) 9.6 (JAN 29) H 10.4 (FEB 25) 8.9 (FEB 24) HB L 8.6 (JAN 30) L 8.1 (CATRACHITA 29) L 8.3 (CATRACHITA 28) L 7.5 (CATRACHITA 27) HCT L 27.5 (CATRACHITA 30) L 25.8 (CATRACHITA 29) L 25.5 (CATRACHITA 28) L 23.1 (CATRACHITA 27) Plt 190 (JAN 30) 203 (CATRACHITA 29) 246 (CATRACHITA 28) 217 (CATRACHITA 27) Na H 148 (JAN 30) H 147 (CATRACHITA 29) 146 (CATRACHITA 28) 143 (JAN 27) K L 3.2 (JAN 30) 3.6 (CATRACHITA 29) L 3.4 (JAN 28) 3.7 (JAN 27) Cl H 113 (JAN 30) 112 (CATRACHITA 29) 110 (CATRACHITA 28) 110 (JAN 27) CO2 22 (JAN 30) 23 (JAN 29) L 20 (JAN 28) L 20 (FEB 24) BUN H 50 (JAN 30) H 50 (CATRACHITA 29) H 48 (FEB 25) H 49 (FEB 24) Cr H 3.12 (CATRACHITA 30) H 3.30 (CATRACHITA 29) H 3.28 (CATRACHITA 28) H 3.17 (FEB 24) Glu R 97 (JAN 30) H 153 (JAN 29) H 178 (FEB 25) H 217 (FEB 24) Ca 8.5 (JAN 30) L 8.2 (JAN 29) L 8.1 (CATRACHITA 28) L 7.3 (FEB 24) Lactic 0.9 (JAN 25) 0.7 (CATRACHITA 25) AST 13 (FEB 26) 13 (FEB 24) 14 (FEB 23) 17 (JAN 24) ALT 15 (FEB 26) 16 (FEB 24) 16 (FEB 23) 21 (JAN 24) ALK P 51 (FEB 26) 49 (FEB 24) 53 (FEB 23) 76 (JAN 24) T Bili 0.4 (JAN 29) 0.4 (FEB 24) 0.4 (FEB 23) 0.3 (CATRACHITA 24) PTN L 6.1 (FEB 26) L 5.4 (FEB 24) L 5.9 (FEB 23) L 6.3 (JAN 24) ALB L 1.9 (JAN 29) L 1.7 (FEB 24) L 1.9 (FEB 23) L 1.9 (JAN 24) Impression and Plan ARF: Creatinine slightly better at 3.1 with continued nonoliguric urine output.. Patient thought to have prerenal azotemia due to hypotension which may be evolving to ATN along with possible Vanco toxicity.. Previously FeNa borderline at 1.3% with a low Fe urea 25%. Vancomycin level was >50 for least 48 hours. For now continue supportive care. Optimize volume. Monitor strict I's and O's. Watch for further renal recovery. No emergent indication for dialysis at this time. Sepsis: Resolving. Patient with pneumonia and hip ulceration. Patient on antibiotics. HTN: Blood pressure on the high side at times. Monitor for now. Cover with as needed medications. Hypernatremia: Sodium increasing to 148. All fluids hypotonic. Increased free water. Hypokalemia: Potassium back down overnight. Continue to replace as needed. Magnesium replaced to>2.0 to assist with renal potassium recovery.. Metabolic acidosis: Stable. Chloride levels improved. Initially bicarb levels quite low with renal failure along with chloride overload.. Patient was getting IV bicarb with improvement. Patient now on p.o. bicarb. Will titrate dose as needed. Anemia: Stable. Post transfusion for hemoglobin 6.8. Transfuse as needed for Hgb <7 Volume: Volume stable overnight.. Continue perfusion support. Decubitus ulcer post debridement Pneumonia: On antibiotics Respiratory failure: Extubated. High risk and complexity critically ill patient. documented in this encounter Plan of Treatment Not on file documented as of this encounter Visit Diagnoses Not on filedocumented in this encounter
--- OUTSIDE RECORDS SUMMARY | 2025-02-21 13:39 | XMS_ITS | Encounter Summary ---
Author Organization [employer] Address [address] [place] [address] Care Team Providers Care Wire Brusher Name Role Phone Unavailable Primary Care Provider Unavailabl e Encounter Details Date Type Department Care Team (Late st Contact Info) Description 03/07/[address] [facility] [facility] [place] [address] ProviderFlorentino MD [address] [place] [address] Social History Tobacco Use Types Packs/Day Years Used Date Smoking Tobacco: Never Assessed Comments Unknown Sex and Gender Information Value Date Recorded Sex Assigned at Not on file Legal Sex Female 1:44 PM CDT Gender Identity Not on file Sexual Orientation Not on file documented as of this encounter Miscellaneous Notes * Cerner Conversion Note - Florentino Lynne MD - 03/07/2022 6:53 AM CDT Patient: ALYSSA AZUL Age: 61 years Sex: Female : 1960 Associated Diagnoses: None Author: PEÑA VAZQUEZ MD-INF Antibiotics: Zosyn CC: Sacral wound HPI: 02/22/22: Consultation at [facility]: 61 yo female with hx of paraplegia, diabetes, HTN and obesity. Presented to [facility] with complaints of fevers and chills for 1 week prior to admission. Diagnosed with pneumonia and left gluteal wound. Underwent superficial I&D x2 and then suffered a cardiac arrest on 02/20. She was intubated and started on vasopressors. Per family at bedside she had additional operative I&D at local hospital after cardiac arrest. Treated with vancomycin and zosyn. Transferred to [facility] on 02/22 for higher level of care. She arrived intubated, sedated and on vasopressors. Since arrival she has been extubated to BiPAP, 35%. Weaned off vasopressors. T max 99.6. Family member at bedside. Follow by Dr. Pedro Mitchell at [facility] from 02/22-02/23. Dr. Gama Encinas resumed care at [facility] from 02/24 to 03/01 when she was transferred to [facility]. 03/02/22: Transfer to [facility] with initial hospital visit by Dr. Peña Vazquez: In summary, Patient was admitted to [facility] on 02/17 for suspected pneumonia and debridement of left buttock DTI. On 02/21 she had cardiac arrest and was emergently intubated. She was transferred to [facility] on 02/22 for higher level of care. [...] PICC line (was present on admission to [facility] on 02/22 and likely placed at OSH) [...] with family and staff - events noted 03/05 - no Hx available Hx discussed with staff 03/06 - no Hx available Hx discussed with staff 03/07 - no Hx available from the patient Hx from staff on vent no fever no rash ROS: unable to obtain secondary to critical condition - discussed with staff - on vent sedated had bronch no new GI CR issues Past Medical History: paraplegia, diabetes, HTN and obesity Past Surgical History: I&D of left gluteal wound at OSH x2 Family History: Unable to confirm Social History: lives in [place] Objective: Vitals Signs (last 24 hrs) Last Charted Minimum Maximum Temp 98.9 (MAR 07 04:00) 98.9 (MAR 07 04:00) H 102.3 (MAR 06 20:00) Apical HR 69 (MAR 07 04:50) 66 (MAR 06 22:48) 69 (MAR 07 04:50) Mon HR 90 (MAR 07 06:00) 69 (MAR 06 22:30) 107 (MAR 06 21:00) Resp Rate H 24 (MAR 07 06:00) L 7 (MAR 07 04:00) H 47 (MAR 06 15:00) SBP 134 (MAR 07 06:00) 118 (MAR 06 16:00) H 208 (MAR 06 22:00) DBP 62 (MAR 07 06:00) L 59 (MAR 06 17:00) H 127 (MAR 06 19:00) MAP 89 (MAR 07 06:00) 82 (MAR 06 17:00) 149 (MAR 06 10:00) SpO2 100 (MAR 07 06:00) L 93 (MAR 06 22:30) 100 (MAR 06 18:00) PE: General: Patient sedated on mechanical ventilation appears ill, some distress HEENT: sclera white without conjunctival injection. No erythema, exudate or ulceration. Neck: Supple without nuchal rigidity Lungs: Bilateral rhonchi on vent Cardiovascular: normal S1/S2; tachycardia, no murmur Abdomen: soft, non-tender, non-distended Lower extremity: No cyanosis, clubbing or edema Neuro: Sedated on vent with paraplegia : Left hip and sacral wound with wound VAC in place no rash With Valenzuela LABS: Labs (Last four charted values) WBC 9.3 (MAR 07) 5.7 (MAR 05) 6.8 (MAR 04) 6.4 (MAR 03) HB L 7.1 (MAR 07) L 7.0 (MAR 07) L 7.7 (MAR 06) L 7.2 (MAR 05) HCT L 23.1 (FEB 08) L 23.1 (FEB 08) L 25.3 (MAR 06) L 23.7 (MAR 05) Plt L 127 (MAR 07) L 124 (MAR 05) L 161 (MAR 04) 172 (MAR 03) Na 144 (MAR 07) H 147 (MAR 06) H 148 (MAR 05) H 149 (MAR 05) K L 3.3 (MAR 07) 3.5 (MAR 06) 3.8 (MAR 05) 3.8 (MAR 05) Cl H 117 (MAR 07) H 117 (MAR 06) H 119 (MAR 05) H 118 (MAR 05) CO2 21 (MAR 07) 21 (MAR 06) L 19 (MAR 05) 21 (MAR 05) BUN H 31 (MAR 07) H 33 (MAR 06) H 34 (MAR 05) H 37 (MAR 05) Cr H 2.10 (MAR 07) H 2.10 (MAR 06) H 2.10 (MAR 05) H 2.20 (MAR 05) Glu R H 286 (MAR 07) H 165 (MAR 06) H 140 (MAR 05) H 123 (MAR 05) Ca 8.6 (MAR 07) 9.0 (MAR 06) 8.7 (MAR 05) L 8.3 (MAR 05) Lactic 0.5 (MAR 04) 0.6 (MAR 01) PT 10.5 (MAR 04) 11.0 (MAR 02) INR 1.0 (MAR 04) 1.0 (MAR 02) PTT 26.0 (MAR 04) 24.6 (MAR 02) AST 7 (MAR 07) 14 (MAR 06) 14 (MAR 05) 12 (MAR 04) ALT L 11 (MAR 07) 13 (MAR 06) 15 (MAR 05) 16 (MAR 04) ALK P 42 (MAR 07) 46 (MAR 06) 48 (MAR 05) 47 (MAR 04) T Bili 0.6 (MAR 07) 0.7 (MAR 06) 0.7 (MAR 05) 0.6 (MAR 04) PTN L 6.3 (MAR 07) 6.9 (MAR 06) 6.8 (MAR 05) L 6.0 (MAR 04) ALB L 2.5 (MAR 07) L 2.9 (MAR 06) L 2.8 (MAR 05) L 2.1 (MAR 04) MICRO: Outside BAL with gram-negative diplococci IMAGING: Radiology Results (Last 48 hours) [id number] -- 03/01/2022 17:45 CR Abdomen 1 Vw Portable (03/05/2022 16:04) Result: KUBHISTORY: Feeding tube placement.COMPARISON: NoneFINDINGS: The feeding tube is identified below the diaphragm with thetip terminating in the region of the duodenal bulb. There is an NG tubepresent emanating in the proximal stomach, the side port terminates atthe GE junction and should be advanced.. The bowel gas pattern isnonspecific. There are bilateral pleural effusions with atelectasis.IMPRESSION: Feeding tube tip terminates in the region of the duodenalbulb.NG tube terminates in the proximal stomach with the side ports at the GEjunction, should be advanced.Findings were discussed with the patient's nurse at 03/05/2022 4:38 PMImages reviewed, interpreted, and dictated by Dr. Dariel Philippe.Transcribed by Quincy Sanchez PA-C.I have personally viewed, interpreted and dictated the examination. Ihave read and agree with the above final transcribed report. CR Chest 1 Vw Portable (03/06/2022 12:33) Result: PORTABLE CHESTHISTORY: Acute respiratory failure.COMPARISON: 03/05/2022.FINDINGS: A single portable radiograph of the chest was performed. Thelife support lines are stable. There is cardiomegaly. There are small tomoderate bilateral pleural effusions which are slightly improved fromthe prior study. There is presumed basilar atelectasis. There ispulmonary vascular congestion.IMPRESSION:1. Cardiomegaly with pulmonary vascular congestion.2. Decreased effusions with persistent basilar atelectasis.Images reviewed, interpreted, dictated and electronically signed by MD TIFFANY Andre Abdomen 1 Vw Portable (03/06/2022 22:26) Result: ONE-VIEW ABDOMENHISTORY: Abdominal pain.ABDOMEN: A single view of the abdomen was obtained. A feeding tube is inthe distal stomach. There is mild to moderate gaseous distention ofcolon. The bowel gas pattern is otherwise normal.IMPRESSION: Feeding tube in distal stomach.Images reviewed, interpreted, and dictated by Dr. Julio Cesar Russell.Transcribed by Jorgito Nicolas.I have personally viewed, interpreted and dictated the examination. Chayo read and agree with the above final transcribed report. IMPRESSION: - Right perihilar consolidation suspect aspiration pneumonia now with second reintubation - Large left gluteal soft tissue infection, ulceration, necrosis, to level of soft tissue: Status post I&D x3 at [facility]. - Acute hypoxic respiratory failure: Pneumonia & edema - Aspiration pneumonia: clear evidence of aspiration - Pulmonary edema - Cardiac arrest at outside hospital prior to transfer to [facility] - Metabolic acidosis: improved - Acute kidney [...] CMP, CRP, - Continue Zosyn, increased dose again with improving renal function discussed with staff Risks and benefits of antibiotics and IV access discussed At risk for secondary events and progression of this infection Medicines reviewed X-rays seen Prognosis poor to fair Klebsiella in sputum Press on with IV antibiotics Call any questions this weekend Electronically signed by Sumaya [facility] Conversion Nanotechnology Engineering Technician Cerner at 12/21/2022 5:00 PM CDT documented in this encounter Plan of Treatment Not on file documented as of this encounter Visit Diagnoses Not on filedocumented in this encounter
--- OUTSIDE RECORDS SUMMARY | 2025-02-21 13:39 | XMS_ITS | Encounter Summary ---
Author Organization [employer] Address [address] [place] [address] Care Team Providers Care Ball Thread Machine Tender Name Role Phone Unavailable Primary Care Provider Unavailabl e Encounter Details Date Type Department Care Team (Late st Contact Info) Description 05/02/2022 Transcribed Document [facility] [place] [facility] [place] [address] ProviderFlorentino MD [facility] [place] [address] Social History Tobacco Use Types Packs/Day Years Used Date Smoking Tobacco: Never Assessed Comments Unknown Sex and Gender Information Value Date Recorded Sex Assigned at Not on file Legal Sex Female 1:44 PM CDT Gender Identity Not on file Sexual Orientation Not on file documented as of this encounter Miscellaneous Notes * Cerner Conversion Note - Florentino ProviderMD - 05/02/2022 2:36 PM CDT Treatment Intervention, PT Entered On: 05/07/2022 15:35 EDT Performed On: 05/07/2022 10:19 EDT by SOLO WORTHY PTA General Information, PT Visit Type, PT : Treatment Note Patient Orders : Order Date Order Ordering 04/30/2022 11:26 Physical Therapy Eval and Treat Ordered By: MICHELLE LORA MD-INT 05/01/2022 11:32 Consult to Physical Therapy Ordered By: MICHELLE LORA MD-INT 05/01/2022 16:34 Physical Therapy Additional Tx Ordered By: BOBBY HERNANDEZ, RONALD 05/02/2022 14:36 PT Additional Treatment Ordered By: JAH MCGINNIS, PT Active Diagnoses : 2022 02:25 Pressure [...] trochanter wound Admission Date : 2022 00:16 Assisted by, PT : electrical test technician/aide Personal Devices : Personal Devices Glasses Assistive Devices : Assistive Devices No Devices Recorded SOLO WORTHY PTA - 05/07/2022 15:26 EDT General Status Patient Received Status : Supine in bed Treatment Start Time : 05/07/2022 9:49 EDT Patient Left Status : RN/PCT informed, All needs met and within reach, Other: up in wheelchair with nsg aware RN/PCT Informed Comment : nsg Merina Treatment End Time : 05/07/2022 10:19 EDT Treatment Time : 30 Minute(s) SOLO WORTHY PTA - 05/07/2022 15:26 EDT Functional Mobility Mobility Grid Bed Roll Left : Rehab Moderate assistance Bed Roll Right : Rehab Moderate assistance Supine to Sit : Rehab Maximal assistance Bed to Chair : Rehab Moderate assistance (Comment: x 2 [SOLO WORTHY PTA - 05/07/2022 15:26 EDT] ) SOLO WORTHY PTA - 05/07/2022 15:26 EDT Gait Training/Assessment, PT Weight Bearing Status Comment : paraplegic Gait Assistance Level : Unable to assess/activity not appropriate SOLO WORTHY PTA - 05/07/2022 15:26 EDT Wheelchair Mobility Wheelchair Mobility : Supervision Wheelchair Types : Standard Wheelchair Mobility Distance : 340 ft SOLO WORTHY PTA - 05/07/2022 15:26 EDT Cognitive Treatment, PT Orientation : Oriented x 4 SOLO WORTHY PTA - 05/07/2022 15:26 EDT Edu Topics Physical Therapy Education Grid Balance Training : Needs further teaching Bed Mobility Training : Needs further teaching Gait Training : Needs further teaching Role of Physical Therapy : Verbalizes understanding Safety : Needs further teaching Transfer Training : Needs further teaching SOLO WORTHY PTA - 05/07/2022 15:26 EDT Indication Assesessment, PT Physical Therapy Indicated : Yes SOLO WORTHY PTA - 05/07/2022 15:26 EDT Plan of Care, PT PT Tx Plan/Goals Established w Patient : Yes SOLO WORTHY PTA - 05/07/2022 15:26 EDT Short Term Goals Mobility/Bed Mobility STG PT Grid Goal #1 Activity : Supine to sit Assist : Assist, minimal Date to Meet : 05/09/2022 EDT Goal Status : Progressing, continue SOLO WORTHY PTA - 05/07/2022 15:26 EDT Transfer STG Grid Goal #1 Destination : Chair, with arms Type : Other: sliding board if not too much pressure on wound / sit pivot Assist : Assist, maximal Date to Meet : 05/09/2022 EDT Goal Status : Goal met Date Met : 05/04/2022 EDT SOLO WORTHY PTA - 05/07/2022 15:26 EDT Correction Goals Mobility/Bed Mobility LTG PT Grid Goal #1 Goal #3 Activity : Supine to sit Assist : Supervision or set-up Date to Meet : 05/16/2022 EDT Goal Status : Progressing, continue Comment : see below SOLO WORTHY PTA - 05/07/2022 15:26 EDT SOLO WORTHY COTTON SAMPLER - 05/07/2022 15:26 EDT Transfer LTG Grid Goal #1 Goal #2 Goal #3 Destination : Wheelchair, standard Wheelchair, standard Bed, hospital Type : Other: sliding board if not too much pressure on wound / sit pivot Other: backwards scoot into chair Other: forward scoot Assist : Assist, moderate Supervision or set-up Assist, minimal Date to Meet : 05/16/2022 EDT 05/16/2022 EDT 05/16/2022 EDT Goal Status : Progressing, continue Progressing, continue Progressing, continue Comment : pt reports this is how she transfers at baseline SOLO WORTHY PTA - 05/07/2022 15:26 EDT SOLO WORTHY PTA - 05/07/2022 15:26 EDT SOLO WORTHY, COTTON SAMPLER - 05/07/2022 15:26 EDT BalanceLTG Grid Goal #1 Activity : Sitting, dynamic Assist : Supervision or set-up Date to Meet : 05/16/2022 EDT Goal Status : Progressing, continue SOLO WORTHY PTA - 05/07/2022 15:26 EDT Other PT LTG Grid Goal #1 Other : Patient's L greater trochanter wound will be 100% closed and blanchable with normalized skin texture and color Date to Meet : 05/15/2022 EDT Goal Status : Progressing, continue SOLO WORTHY, COTTON SAMPLER - 05/07/2022 15:26 EDT Treatment Note Subjective Comment : pt agreeable to PTx, nsg cleared pt for PTx Additional Objective Information : upon entering room it was noted pt needed pericare due to fecal incontinence, pt rolled to either side for pericare and changing CHUX, pt then transfered to EOB and scooted posteriorly into wheelchair, pt self propelled wheelchair in hallway and upon returning to room requested to stay up in personal wheelchair, pt was left with all needs within reach Assessment : pt able to self propel wheelchair but is still requiring increased assistance for bed mobility, pt would benefit from continued therapy to increase endurance and decrease safety risk Plan for Treatment : continue POC SOLO WORTHY, EMMANUEL - 05/07/2022 15:26 EDT Pain Assessment Pain Score During-Intervention : 0 SOLO WORTHYEMMANUEL - 05/07/2022 15:26 EDT Image 1 - Images currently included in the form version of this document have not been included in the text rendition version of the form. Anticipated Discharge Needs, OT/PT Anticipated Discharge to : Home, with home health, Unit, rehabilitation (Comment: S1 [SOLO WORTHY, EMMANUEL - 05/07/2022 15:26 EDT] ) Recommend Continued Therapy at Discharge : Yes SOLO WORTHYEMMANUEL - 05/07/2022 15:26 EDT [place] [facility] COTTON SAMPLER PT Ther Activities Ea 15 Min-COTTON SAMPLER : 1 PT W/C Mgm/Prop Each 15 Min-COTTON SAMPLER : 1 ZAYNAB SOLOEMMANUEL ESTRADA - 05/07/2022 15:26 EDT documented in this encounter Plan of Treatment Not on file documented as of this encounter Visit Diagnoses Not on filedocumented in this encounter
--- OUTSIDE RECORDS SUMMARY | 2025-02-21 13:39 | XMS_ITS | Encounter Summary ---
Author Organization [employer] Address [address] [place] [address] Care Team Providers Care Graphics Programmer Name Role Phone Unavailable Primary Care Provider Unavailabl e Encounter Details Date Type Department Care Team (Late st Contact Info) Description 03/17/[address] [facility] [place] Medicine [facility] [place] [address] ProviderFlorentino MD [address] [place] [address] Social History Tobacco Use Types Packs/Day Years Used Date Smoking Tobacco: Never Assessed Comments Unknown Sex and Gender Information Value Date Recorded Sex Assigned at Not on file Legal Sex Female 1:44 PM CDT Gender Identity Not on file Sexual Orientation Not on file documented as of this encounter Miscellaneous Notes * Cerner Conversion Note - Florentino Lynne MD - 03/17/2022 9:00 AM CDT [facility] Inpatient Documentation Entered On: 03/17/2022 13:14 EDT Performed On: 03/17/2022 10:15 EDT by Edwina Fraire LPN-LVN-Enterstomal Andres WOCN Admission Date : Admit Date 03/01/2022 17:[address] : No diagnoses found. Reason for WOCN Visit : Assessment, ongoing, Dressing change Admitting Diagnosis ST : Reason for Admission ACUTE RESP FAILURE WOCN Assessment Summary : Wound care team consulted to manage NPWT. Wound care customer solutions teammate [facility] on HENRIETTA surface. Removed old dressing 2 pcs angel foam, cleansed wound bed with saline wound wash, pat dry and measured 11.5cmx7.0cmx3.0cm and draped, placed 1 pc angel foam to wound bed and draped. NPWT is operating at 125 mmHg. If any changes to skin integrity please consult wound care dept. Fraire, Edwina, BIJ-WMV-Szehnztcbjx Therapy - 03/17/2022 13:10 EDT Wound & Pressure Ulcer WOCN Wound Pressure Ulcer Documentation : Pressure Ulcer Assessment: Hip Left on 03/17/2022 10:15 by Edwina Fraire LPN-SHE-JRD-Avwwuwrcatq Therapy Present on Adm to Hosp: Yes Stage: Stage 3 Device Related: Unknown Dressing Status: Intact Dressing Activity: Dressing changed Date of Dressing Change: [id number]:0 Wound Bed Description: Eschar (leathery black or brown), Granulation (beefy red) Bed Color(s): Black, Brown, [place], Red Wound Edge: Attached Surrounding Tissue: Erythema, Intact Length: 11.5 Width: 7.0 Depth: 3.0 Drainage Amount: None Photographed: Yes Cleansing/Irrigation: Wound cleanser Skin Treatment: Barrier film Dressing Type/Treatment: NPWT NPWT (PU) Activity: Dressing changed NPWT (PU) Device used: Veraflo Type of Foam or Gauze Removed (PU): Other: Angel Number of Other Pieces Removed (PU): 2 Type of Foam or Gauze Applied (PU): Other: Angel Number of Other Pieces Applied (PU): 1 Number of TRAC Pads Applied (PU): 1 NPWT (PU) Pressure: Instill irrigation NPWT (PU) Irrigant Solution Type: NS NPWT (PU) Irrigant Instilled: 30 NPWT (PU) Irrigant Dwell Time: 2 NPWT (PU) Irrigant Frequency: 2 NPWT (PU) Canister Changed: Yes NPWT (PU) Canister Level: 400 Healing, PU: Improving WOCN Ostomy Documentation : No ostomy assessments reported. Edwina Fraire LPN-FHP-KPR-Wgxwwqpolmt Therapy - 03/17/2022 13:10 EDT documented in this encounter Plan of Treatment Not on file documented as of this encounter Visit Diagnoses Not on filedocumented in this encounter
--- OUTSIDE RECORDS SUMMARY | 2025-02-21 13:39 | XMS_ITS | Encounter Summary ---
Author Organization [employer] Address [address] [place] [address] Care Team Providers Care Staff Development Manager Name Role Phone Unavailable Primary Care Provider Unavailabl e Encounter Details Date Type Department Care Team (Late st Contact Info) Description 03/16/2022 Transcribed Document [facility] [place] [address] [place] [address] ProviderFlorentino MD [address] [place] [address] Social History Tobacco Use Types Packs/Day Years Used Date Smoking Tobacco: Never Assessed Comments Unknown Sex and Gender Information Value Date Recorded Sex Assigned at Not on file Legal Sex Female 1:44 PM CDT Gender Identity Not on file Sexual Orientation Not on file documented as of this encounter Miscellaneous Notes * Cerner Conversion Note - Historical ProviderMD - 03/16/2022 5:00 AM CDT Height and Weight, Routine Entered On: 03/16/2022 4:54 EDT Performed On: 03/16/2022 5:00 EDT by [facility] Height and Weight, Routine Routine Weight Source : Bed scale Routine Weight Entry Format : Benge Routine Weight, Pounds : 198 lb Routine Weight, Ounces : 8 oz Routine Weight Calculation : 90.23 kg Height Source : Chart Height Entry Format : Benge Height, Feet : 5 ft Height, Inches : 4 Inch Clinical Height : 162.56 cm Body Surface Area (BSA), Routine : 1.95 m2 Body Mass Index (BMI), Routine : 34.14 kg/m2 Natalie Rajan [facility] Unit Coord - 03/16/2022 4:54 EDT documented in this encounter Plan of Treatment Not on file documented as of this encounter Visit Diagnoses Not on filedocumented in this encounter
--- OUTSIDE RECORDS SUMMARY | 2025-02-21 13:39 | XMS_ITS | Encounter Summary ---
Author Organization [employer] Address [address] [place] [address] Care Team Providers Care Business Controller Name Role Phone Unavailable Primary Care Provider Unavailabl e Encounter Details Date Type Department Care Team (Late st Contact Info) Description 02/27/2022 Transcribed Document [facility] [place] [address] [place] [address] ProviderFlorentino MD [address] [place], [place] [id number] Social History Tobacco Use Types Packs/Day Years Used Date Smoking Tobacco: Never Assessed Comments Unknown Sex and Gender Information Value Date Recorded Sex Assigned at Not on file Legal Sex Female 1:44 PM CDT Gender Identity Not on file Sexual Orientation Not on file documented as of this encounter Miscellaneous Notes * Cerner Conversion Note - Historical ProviderMD - 02/27/2022 8:45 AM CDT Spiritual Care Short Form Entered On: 02/27/2022 13:39 EDT Performed On: 02/27/2022 8:45 EDT by JOSEF GHOTRA Chaplain General Information, Spiritual Care Spiritual Care Referred by : Interdisciplinary Team rounds Reason for Visit : Follow Up Intervention/Comment/Summary Points : Participated in MDRs; patient was seen resting in bed, no visitors present. Patient may be moved to floor today. JOSEF GHOTRA Chaplain - 02/27/2022 13:39 EDT documented in this encounter Plan of Treatment Not on file documented as of this encounter Visit Diagnoses Not on filedocumented in this encounter
--- OUTSIDE RECORDS SUMMARY | 2025-02-21 13:39 | XMS_ITS | Encounter Summary ---
Author Organization [employer] Address [address] [place] [address] Care Team Providers Care Aoc Aadc Operations Staff Officer Name Role Phone Unavailable Primary Care Provider Unavailabl e Encounter Details Date Type Department Care Team (Late st Contact Info) Description 03/17/2022 Transcribed Document [facility] [place] [address] [place] [address] ProviderFlorentino MD [address] [place] [address] Social History Tobacco Use Types [...] Historical ProviderMD - 03/17/2022 5:00 AM CDT Height and Weight, Routine Entered On: 03/17/2022 6:28 EDT Performed On: 03/17/2022 5:00 EDT by Maddison Sepulveda Lpn Height and Weight, Routine Routine Weight Source : Bed scale Routine Weight Entry Format : Metric Routine Weight, Kilograms : 90 kg(Converted to: 198 lb 7 oz) Routine Weight Calculation : 90 kg Height Source : Chart Height Entry Format : Barton Height, Feet : 5 ft Height, Inches : 4 Inch Clinical Height : 162.56 cm Body Surface Area (BSA), Routine : 1.95 m2 Body Mass Index (BMI), Routine : 34.06 kg/m2 Maddison Sepulveda Lpn - 03/17/2022 6:28 EDT documented in this encounter Plan of Treatment Not on file documented as of this encounter Visit Diagnoses Not on filedocumented in this encounter
--- OUTSIDE RECORDS SUMMARY | 2025-02-21 13:39 | XMS_ITS | Encounter Summary ---
Author Organization [employer] Address [address] [place] [address] Care Team Providers Care Cotton Picker Operator Name Role Phone Unavailable Primary Care Provider Unavailabl e Encounter Details Date Type Department Care Team (Late st Contact Info) Description 03/07/2022 Transcribed Document [facility] Family Medicine [address] [place] [address] ProviderFlorentino MD [address] [place] [address] Social History Tobacco Use Types Packs/Day Years Used Date Smoking Tobacco: Never Assessed Comments Unknown Sex and Gender Information Value Date Recorded Sex Assigned at Not on file Legal Sex Female 1:44 PM CDT Gender Identity Not on file Sexual Orientation Not on file documented as of this encounter Miscellaneous Notes * Cerner Conversion Note - Florentino ProviderMD - 03/07/2022 6:39 PM CDT Patient: ALYSSA AZUL Age: 61 Years Sex: Female : 1960 Subjective DOS 03/07/2022 Seen and examined at bedside in ICU. intubated. following commands. off sedation Vital Signs T: 38 ??C TMIN: 37.2 ??C TMAX: 39.1 ??C HR: 109(Monitored) RR: 23 BP: 142/78 SpO2: 100% WT: 93.1 kg Oxygen Settings (Last) Oxygen Therapy Mode: Mechanical ventilation (03/07/22 15:31:00) Intake & Output Totals Last 24 Hours (7a-7a) Input Total: 2983.26 mL Output Total: 1300 mL Balance: 1683.26 mL Physical Exam General: No acute distress, [...] appreciated- recommend wound care consult - d/w etcher aircraft today- wound vac applied on 02/24 pneumonia [...] the patient due to divert status. Summary [facility] stay: patient admitted to [facility] on 02/17/22, temp in ER of [...] necrosis. no pathology sent. [place] [facility] [place]. 02/22: extubated, given [...] and pulm following. repeat labs and monitor Disposition: critically ill, in ICU, high risk and complexity patient pending consultants' recommendations, discharge is uncertain at this time VTE Prophylaxis - Medical Heparin 5,000 Units, SubCutaneous, Inj, Q8H, Routine, Start 03/01/22 22:00:00 EDT, 03/01/22 19:01:00 EDT (GENI ORTIZ) Sequential Compression Device Start: 03/01/22 19:03:00 EDT, Bilateral, Length: Knee High, While patient is in bed, Continuous Order (Elaine, PHYSICIAN-CLINIC) Sequential Compression Device Start: 03/01/22 18:51:00 EDT, Bilateral, Length: Knee High, While patient is in bed, Continuous Order (Elaine, PHYSICIAN-CLINIC) Medications acetaminophen, 650 mg= 2 Tab, Oral, Q6H, PRN calcium gluconate, 1 Gram= 100 mL, IV Piggyback, Daily, PRN calcium gluconate, 2 Gram= 100 mL, IV Piggyback, Daily, PRN calcium gluconate, 2 Gram= 100 mL, IV Piggyback, Q12H, PRN D5W 1,000 mL, 1000 mL, IntraVENous dexmedeTOMIDine injection 400 mcg + NaCl 0.9% [...] mL, Nebulized Inhalation , RT_Q6H, PRN fentaNYL 2,000 mcg + Dextrose 5% in Water intravenous solution 60 mL glucagon, 1 mg= 1 mL, IntraMuscular, Q15Min, PRN glucose 4 g oral tablet, chewable, 16 Gram= 4 Tab, Chew, Q15Min, PRN glucose 40% oral gel, 15 Gram= 37.5 mL, Oral, Q15Min, PRN guaiFENesin, 400 mg= 20 mL, Oral, Q6H heparin, 5000 Units= 1 mL, SubCutaneous, Q8H hydrALAZINE, 10 mg= 0.5 mL, IV Push, Q6H, PRN insulin glargine, 12 Units= 0.12 mL, SubCutaneous, Daily insulin regular sliding scale, Scale C, SubCutaneous, Q6H magnesium sulfate, 2 Gram= 50 mL, IV Piggyback, Daily, PRN magnesium sulfate, 2 Gram= 50 mL, IV Piggyback, Q2H, PRN morphine, 2 mg= 1 mL, IV Push, Q2H, PRN Mucomyst 20 % inhalation solution, 1 mL, Nebulized Inhalation , RT_QID niCARdipine injection 25 mg + Dextrose 5% [...] Test Name Test Result Date/Time pH Art 7.41 03/07/2022 15:42 EDT pH Art 7.40 03/07/2022 06:47 EDT pCO2 Art 36.2 mmHg 03/07/2022 15:42 EDT pCO2 Art 37.5 mmHg 03/07/2022 06:47 EDT pO2 Art 64.5 mmHg (Low) 03/07/2022 15:42 EDT pO2 Art 67.6 mmHg (Low) 03/07/2022 06:47 EDT HCO3 Art 22.9 mmol/L 03/07/2022 15:42 EDT HCO3 Art 22.9 mmol/L 03/07/2022 06:47 EDT BE Art -1.5 mmol/L 03/07/2022 15:42 EDT BE Art -1.8 mmol/L 03/07/2022 06:47 EDT sO2 Art 94.1 % (Low) 03/07/2022 15:42 EDT sO2 Art 94.8 % (Low) 03/07/2022 06:47 EDT tHb Art 8.9 Gram/dL (Low) 03/07/2022 15:42 EDT tHb Art 7.3 Gram/dL (Low) 03/07/2022 06:47 EDT FHHb 5.7 % 03/07/2022 15:42 EDT FHHb 5.1 % 03/07/2022 06:47 EDT ctO2 11.5 mmol/L 03/07/2022 15:42 EDT ctO2 9.6 mmol/L 03/07/2022 06:47 EDT FIO2 Art 100 03/07/2022 15:42 EDT FIO2 Art 40 03/07/2022 06:47 EDT Delivery Device Type Art Ventilator 03/07/2022 15:42 EDT Delivery Device Type Art Ventilator 03/07/2022 06:47 EDT Temperature, F Art 98.6 Deg F 03/07/2022 15:42 EDT Temperature, F Art 98.6 Deg F 03/07/2022 06:47 EDT Art Blood Gas (ABG) Site Arterial Line 03/07/2022 06:47 EDT Acceptable Huang's Test Art Non-Applicable 03/07/2022 15:42 EDT Acceptable Huang's Test Art Non-Applicable 03/07/2022 06:47 EDT Ventilator Mode Art AC 03/07/2022 15:42 EDT Ventilator Mode Art Spontaneous 03/07/2022 06:47 EDT Tidal Volume Set Art 400.0 mL 03/07/2022 15:42 EDT Set Rate Art 16.0 03/07/2022 15:42 EDT Respiratory Rate Art 20.0 03/07/2022 15:42 EDT Respiratory Rate Art 28.0 03/07/2022 06:47 EDT CPAP/PEEP Art 8.0 cmH2O 03/07/2022 15:42 EDT CPAP/PEEP Art 5.0 cmH2O 03/07/2022 06:47 EDT Pressure Support Art 10.0 cmH2O 03/07/2022 06:47 EDT Comment Art s 03/07/2022 06:47 EDT ABG Num of Draw Attempts 1 03/07/2022 15:42 EDT ABG Num of Draw Attempts 1 03/07/2022 06:47 EDT PaO2/FiO2 calculated 64 03/07/2022 15:42 EDT PaO2/FiO2 calculated 169 03/07/2022 06:47 EDT Sodium Level 144 mmol/L 03/07/2022 03:43 EDT Potassium Level 3.4 mmol/L (Low) 03/07/2022 09:14 EDT Potassium Level 3.3 mmol/L (Low) 03/07/2022 03:43 EDT Chloride Level 117 mmol/L (High) 03/07/2022 03:43 EDT Carbon Dioxide Level 21 mmol/L 03/07/2022 03:43 EDT Anion Gap 9 03/07/2022 03:43 EDT Glucose Level 286 mg/dL (High) 03/07/2022 03:43 EDT Blood Urea Nitrogen 31 mg/dL (High) 03/07/2022 03:43 EDT Creatinine Level 2.10 mg/dL (High) 03/07/2022 03:43 EDT eGFR 29 mL/min/1.73m2 (Low) 03/07/2022 03:43 EDT eGFR NonAfrican 24 mL/min/1.73m2 (Low) 03/07/2022 03:43 EDT Bun/Creatinine 14.8 03/07/2022 03:43 EDT Calcium Level 8.6 mg/dL 03/07/2022 03:43 EDT Protein Total 6.3 Gram/dL (Low) 03/07/2022 03:43 EDT Albumin Level 2.5 Gram/dL (Low) 03/07/2022 03:43 EDT Globulin 3.8 Gram/dL 03/07/2022 03:43 EDT A/G Ratio 0.7 (Low) 03/07/2022 03:43 EDT Bilirubin Total 0.6 mg/dL 03/07/2022 03:43 EDT Alk Phos 42 Units/Liter 03/07/2022 03:43 EDT AST 7 Units/Liter 03/07/2022 03:43 EDT ALT 11 Units/Liter (Low) 03/07/2022 03:43 EDT Device Comment 1 Notified Nurse RBV 03/07/2022 17:20 EDT Device Comment 1 Notified Nurse RBV 03/07/2022 11:03 EDT Device Comment 1 Notified Nurse RBV 03/07/2022 05:41 EDT Device Comment 1 Notified Nurse RBV 03/07/2022 00:02 EDT Glucose POC2 295 mg/dL (High) 03/07/2022 17:20 EDT Glucose POC2 263 mg/dL (High) 03/07/2022 11:03 EDT Glucose POC2 296 mg/dL (High) 03/07/2022 05:41 EDT Glucose POC2 253 mg/dL (High) 03/07/2022 00:02 EDT WBC 9.3 K/uL 03/07/2022 03:43 EDT RBC 2.50 Million/uL (Low) 03/07/2022 03:43 EDT Hgb 6.8 g/dL (Low) 03/07/2022 09:14 EDT Hgb 7.1 g/dL (Low) 03/07/2022 03:43 EDT Hgb 7.0 g/dL (Low) 03/07/2022 01:37 EDT Hgb 7.7 g/dL (Low) 03/06/2022 20:27 EDT Hct 22.5 % (Low) 03/07/2022 09:14 EDT Hct 23.1 % (Low) 03/07/2022 03:43 EDT Hct 23.1 % (Low) 03/07/2022 01:37 EDT Hct 25.3 % (Low) 03/06/2022 20:27 EDT MCV 92.4 fL 03/07/2022 03:43 EDT MCH 28.4 pg 03/07/2022 03:43 EDT MCHC 30.7 Gram/dL (Low) 03/07/2022 03:43 EDT Platelet Count 127 K/uL (Low) 03/07/2022 03:43 EDT MPV 11.4 fL 03/07/2022 03:43 EDT RDW 15.4 % (High) 03/07/2022 03:43 EDT Neut % 85.8 % (High) 03/07/2022 03:43 EDT Neut # 8.00 K/uL (High) 03/07/2022 03:43 EDT Lymph % 7.8 % (Low) 03/07/2022 03:43 EDT Lymph # 0.73 x10(3)/uL (Low) 03/07/2022 03:43 EDT [place] % 4.8 % 03/07/2022 03:43 EDT [place] # 0.45 K/uL 03/07/2022 03:43 EDT Eos % 0.6 % 03/07/2022 03:43 EDT Eos # 0.06 x10(3)/uL 03/07/2022 03:43 EDT Baso % 0.4 % 03/07/2022 03:43 EDT Baso # 0.04 x10(3)/uL 03/07/2022 03:43 EDT Slide Review No 03/07/2022 03:43 EDT IG# 0.06 x10(3)/uL (High) 03/07/2022 03:43 EDT IG% 0.60 % 03/07/2022 03:43 EDT ABO/Rh (ECHO) A NEG 03/07/2022 11:10 EDT Antibody Screen Negative ABSC 03/07/2022 11:10 EDT RBC Product Ready 03/07/2022 12:11 EDT RBC Product Ready RBC Ready 03/07/2022 10:55 EDT # of Units: 1 Unit 03/07/2022 10:55 EDT Crossmatch Computer XM OK 03/07/2022 11:10 EDT Electronically signed by Sumaya, [facility] Conversion Sinter Machine Operator Cerner at 12/21/2022 5:03 PM CDT documented in this encounter Plan of Treatment Not on file documented as of this encounter Visit Diagnoses Not on filedocumented in this encounter
--- OUTSIDE RECORDS SUMMARY | 2025-02-21 13:39 | XMS_ITS | Encounter Summary ---
Author Organization [employer] Address [address] [place] [id number] Care Team Providers Care Exotic Dancer Name Role Phone Unavailable Primary Care Provider Unavailabl e Encounter Details Date Type Department Care Team (Late st Contact Info) Description 03/16/2022 Transcribed Document [facility] Family Medicine [address] [place] [address] ProviderFlorentino MD [address] [place] [address] Social History Tobacco Use Types Packs/Day Years Used Date Smoking Tobacco: Never Assessed Comments Unknown Sex and Gender Information Value Date Recorded Sex Assigned at Not on file Legal Sex Female 1:44 PM CDT Gender Identity Not on file Sexual Orientation Not on file documented as of this encounter Miscellaneous Notes * Cerner Conversion Note - Florentino ProviderMD - 03/16/2022 5:00 AM CDT Chart Check - Review Order Profile Entered On: 03/16/2022 6:43 EDT Performed On: 03/16/2022 5:00 EDT by Leyda Harris NON EMP RN - INTERNATIONAL Chart Check Powerplans Initiated/Discontinued as Appropriate : Yes All Active Orders Reviewed : Yes Leyda Harris NON EMP RN - INTERNATIONAL - 03/16/2022 6:43 EDT documented in this encounter Plan of Treatment Not on file documented as of this encounter Visit Diagnoses Not on filedocumented in this encounter
--- OUTSIDE RECORDS SUMMARY | 2025-02-21 13:39 | XMS_ITS | Encounter Summary ---
Author Organization [employer] Address [address] [place] [address] Care Team Providers Care Retirement Plan Counselor Name Role Phone Unavailable Primary Care Provider Unavailabl e Encounter Details Date Type Department Care Team (Late st Contact Info) Description 03/16/2022 Transcribed Document [facility] [place] [address] [place] [address] ProviderFlorentino MD [address] [place] [address] Social History Tobacco Use Types Packs/Day Years Used Date Smoking Tobacco: Never Assessed Comments Unknown Sex and Gender Information Value Date Recorded Sex Assigned at Not on file Legal Sex Female 1:44 PM CDT Gender Identity Not on file Sexual Orientation Not on file documented as of this encounter Miscellaneous Notes * Cerner Conversion Note - Florentino Lynne MD - 03/16/2022 8:46 AM CDT Patient: ALYSSA AZUL Age: 61 years Sex: Female : 1960 Associated Diagnoses: None Author: MARGARETH MANRIQUEZ MD Subjective No complains, feeling better today. Health Status Allergies: Allergic Reactions (Selected) No [...] History of obstructive sleep apnea / IMO [id number] / Confirmed, Active Problems (5) Chronic kidney disease (CKD), stage III (moderate) Diabetes History of obstructive sleep apnea Hyperlipidemia Hypertension Objective VS/Measurements Measurements from flowsheet : Measurements 03/16/2022 5:00 EDT Height Source Chart Height Entry Format Jakin Height/Length, GUINEAN (ft) 5 ft Height/Length GUINEAN 4 Inch CLINICALHEIGHT 162.56 cm Routine Weight Source Bed scale Routine Weight Entry Format Jakin Routine Weight, Pounds 198 lb Routine Weight, Ounces 8 oz Routine Weight Calculation 90.23 kg Body Mass Index (BMI), Routine 34.14 kg/m2 Body Surface Area (BSA), Routine 1.95 m2 03/15/2022 5:00 EDT Height Source Chart Height Entry Format Jakin Height/Length, GUINEAN (ft) 5 ft Height/Length GUINEAN 4 Inch CLINICALHEIGHT 162.56 cm Routine Weight Source Bed scale Routine Weight Entry Format Jakin Routine Weight, Pounds 170 lb Routine Weight, Ounces 1 oz Routine Weight Calculation 77.3 kg Body Mass Index (BMI), Routine 29.25 kg/m2 Body Surface Area (BSA), Routine 1.83 m2 , Vitals Signs (last 24 hrs) Last Charted Minimum Maximum Temp 98.3 (MAR 16 06:14) 98.3 (MAR 16:14) 99.1 (MAR 15 14:19) Mon HR 90 (MAR 16:) 75 (MAR 16 05:38) 98 (MAR 15 22:00) Resp Rate 16 (MAR 16 06:14) 16 (MAR 15 09:00) 18 (MAR 15 22:00) SBP H 145 (MAR 16 06:14) 137 (MAR 15 22:00) H 184 (MAR 15 14:19) DBP 80 (MAR 16:) 64 (MAR 16 03:00) 87 (MAR 15 09:05) MAP 94 (MAR 16:14) 94 (MAR 16 06:14) 110 (MAR 15 22:00) SpO2 94 (MAR 16 06:) L 90 (MAR 15 15:56) 100 (MAR 16 03:00) Intake & Output Totals Last 24 Hours (7a-7a) Intake (3 Events) Medications (15 mL) Oral Intake (240 mL) Output (1 Events) Ostomy Output, Genitourinary: (1500 mL) Input Total: 255 mL Output Total: 1500 mL Balance: -1245 mL General: Alert and oriented, No acute distress. Eye: Extraocular movements are intact, Normal conjunctiva. HENT: Normocephalic, Normal hearing, AT. Neck: Supple, Non-tender, No jugular venous distention. Respiratory: Lungs are clear to auscultation, Symmetrical chest wall expansion. Cardiovascular: Normal rate, Trace edema. Gastrointestinal: Soft, Non-tender, Non-distended. Genitourinary: + Valenzuela. Integumentary: Warm, Dry, Point. Neurologic: Alert, Oriented, No focal deficits. Psychiatric: Cooperative, Appropriate mood & affect. Results Review Labs (Last four charted values) WBC 6.4 (MAR 16) 6.5 (MAR 15) 6.4 (FEB 15) 6.8 (MAR 13) HB L 7.7 (MAR 16) L 8.0 (FEB 16) L 7.6 (FEB 15) L 8.2 (MAR 13) HCT L 24.3 (MAR 16) L 25.5 (MAR 15) L 24.5 (FEB 15) L 26.2 (MAR 13) Plt L 137 (MAR 16) L 147 (FEB 16) L 127 (FEB 15) L 134 (FEB 14) Na 138 (FEB 17) 138 (FEB 16) 137 (FEB 15) 138 (FEB 14) K 4.1 (MAR 16) 3.8 (FEB 16) 3.7 (FEB 15) 3.5 (FEB 14) Cl 108 (FEB 17) 106 (FEB 16) 104 (FEB 15) 103 (FEB 14) CO2 22 (FEB 17) 23 (FEB 16) 25 (FEB 15) 27 (FEB 14) BUN H 56 (FEB 17) H 53 (FEB 16) H 57 (FEB 15) H 52 (FEB 14) Cr H 1.70 (FEB 17) H 2.00 (FEB 16) H 2.20 (FEB 15) H 2.10 (FEB 14) Glu R H 133 (FEB 17) H 152 (FEB 16) H 139 (FEB 15) H 179 (FEB 14) Ca 9.0 (FEB 17) 9.4 (FEB 16) 8.8 (FEB 15) 8.7 (FEB 14) Lactic 0.5 (MAR 09) 0.5 (MAR [...] vent. Plan: - Continue with current. - Encourage oral hydration. - Avoid nephrotoxic agents. - Adjust meds per renal function - Monitor H/H and transfuse for Hgb less than 7.0 High risk and complexity patient. documented in this encounter Plan of Treatment Not on file documented as of this encounter Visit Diagnoses Not on filedocumented in this encounter
[2025-02-21 13:40] LABS: Microscopic, Urine URINE MICROSCOPIC (MICROSCOPIC)
--- OUTSIDE RECORDS SUMMARY | 2025-02-21 13:40 | XMS_ITS | Encounter Summary ---
Author Organization [employer] Address [address] [place] [address] Care Team Providers Care Advertising Analyst Name Role Phone Unavailable Primary Care Provider Unavailabl e Encounter Details Date Type Department Care Team (Late st Contact Info) Description 03/06/2022 Transcribed Document [facility] [place] [facility] [place] [address] ProviderFlorentino MD [address] [place] [address] Social History Tobacco Use Types Packs/Day Years Used Date Smoking Tobacco: Never Assessed Comments Unknown Sex and Gender Information Value Date Recorded Sex Assigned at Not on file Legal Sex Female 1:44 PM CDT Gender Identity Not on file Sexual Orientation Not on file documented as of this encounter Miscellaneous Notes * Cerner Conversion Note - Florentino Lynne MD - 03/06/2022 11:37 AM CDT Patient: ALYSSA AZUL Age: 61 years Sex: Female : 1960 Associated Diagnoses: None Author: PEÑA VAZQUEZ MD-INF Antibiotics: Zosyn CC: Sacral wound HPI: 02/22/22: Consultation at [facility]: 61 yo female with hx of paraplegia, diabetes, HTN and obesity. Presented to [facility] with complaints of fevers and chills for 1 week prior to admission. Diagnosed with pneumonia and left gluteal wound. Underwent superficial I&D x2 and then suffered a cardiac arrest on 02/20. She was intubated and started on vasopressors. Per family at bedside she had additional operative I&D at local hospital after cardiac arrest. Treated with vancomycin and zosyn. Transferred to [facility] on 02/22 for higher level of care. She arrived intubated, sedated and on vasopressors. Since arrival she has been extubated to BiPAP, 35%. Weaned off vasopressors. T max 99.6. Family member at bedside. Follow by Dr. Pedro Mitchell at [facility] from 02/22-02/23. Dr. Gama Encinas resumed care at [facility] from 02/24 to 03/01 when she was transferred to [facility]. 03/02/22: Transfer to [facility] with initial hospital visit by Dr. Peña Vazquez: In summary, Patient was admitted to [facility] on 02/17 for suspected pneumonia and debridement of left buttock DTI. On 02/21 she had cardiac arrest and was emergently intubated. She was transferred to [facility] on 02/22 for higher level of care. She was extubated on 02/22 and re-intubated later that day. She was extubated again on 02/25, but failed BiPAP on 03/01 and was re-intubated. She was being treated by Dr. Gama Encinas for suspected aspiration pneumonia and left gluteal wound infection with Zosyn. She was transferred to [facility] on 03/01 for pulmonology coverage. The [...] PICC line (was present on admission to [facility] on 02/22 and likely placed at OSH) [...] staff - on vent sedated no rash had bronch no new GI CR issues Past Medical History: paraplegia, diabetes, HTN and obesity Past Surgical History: I&D of left gluteal wound at OSH x2 Family History: Unable to confirm Social History: lives in [place] Objective: Vitals Signs (last 24 hrs) Last Charted Minimum Maximum Temp 99.0 (MAR 06 08:00) 98.5 (MAR 06 04:00) 99.0 (MAR 06 08:00) Mon HR 79 (MAR 06:11) 61 (MAR 06 02:00) 102 (MAR 06:02) Resp Rate 17 (MAR 06:11) 14 (MAR 06 05:00) H 33 (MAR 05 18:00) SBP H 151 (MAR 06:00) 116 (MAR 06 04:00) H 198 (MAR 06 02:00) DBP 73 (MAR 06 09:00) L 59 (MAR 06 04:00) H 92 (MAR 05 16:00) MAP 102 (MAR 06 09:00) 81 (MAR 06 04:00) 126 (MAR 06 02:00) SpO2 99 (MAR 06:11) 95 (MAR 06 00:00) 100 (MAR 05 15:48) PE: General: Patient sedated on mechanical ventilation appears ill, mild distress HEENT: sclera white without conjunctival injection. No erythema, exudate or ulceration. Neck: Supple without nuchal rigidity Lungs: Bilateral rhonchi on vent Cardiovascular: normal S1/S2; tachycardia, no murmur Abdomen: soft, non-tender, non-distended, positive bowel sounds throughout. Lower extremity: No cyanosis, clubbing or edema Neuro: Sedated on vent with paraplegia : Left hip and sacral wound with wound VAC in place no rash With Valenzuela LABS: Labs (Last four charted values) WBC 5.7 (MAR 05) 6.8 (MAR 04) 6.4 (MAR 03) 8.5 (MAR 02) HB L 7.2 (MAR 05) L 7.5 (MAR 04) L 7.3 (MAR 03) L 7.5 (MAR 02) HCT L 23.7 (MAR 05) L 25.2 (MAR 04) L 24.1 (MAR 03) L 24.6 (MAR 02) Plt L 124 (MAR 05) L 161 (MAR 04) 172 (MAR 03) 196 (MAR 02) Na H 147 (MAR 06) H 148 (MAR 05) H 149 (MAR 05) 146 (MAR 04) K 3.5 (MAR 06) 3.8 (MAR 05) 3.8 (MAR 05) 3.7 (MAR 04) Cl H 117 (MAR 06) H 119 (MAR 05) H 118 (MAR 05) H 114 (MAR 04) CO2 21 (MAR 06) L 19 (MAR 05) 21 (MAR 05) 21 (MAR 04) BUN H 33 (MAR 06) H 34 (MAR 05) H 37 (MAR 05) H 49 (MAR 04) Cr H 2.10 (MAR 06) H 2.10 (MAR 05) H 2.20 (MAR 05) H 2.20 (MAR 04) Glu R H 165 (MAR 06) H 140 (MAR 05) H 123 (MAR 05) H 116 (MAR 04) Ca 9.0 (MAR 06) 8.7 (MAR 05) L 8.3 (MAR 05) 8.4 (MAR 04) Lactic 0.5 (MAR 04) 0.6 (MAR 01) PT 10.5 (MAR 04) 11.0 (MAR 02) INR 1.0 (MAR 04) 1.0 (MAR 02) PTT 26.0 (MAR 04) 24.6 (MAR 02) AST 14 (MAR 06) 14 (MAR 05) 12 (MAR 04) 15 (MAR 03) ALT 13 (MAR 06) 15 (MAR 05) 16 (MAR 04) 16 (MAR 03) ALK P 46 (MAR 06) 48 (MAR 05) 47 (MAR 04) 44 (MAR 03) T Bili 0.7 (MAR 06) 0.7 (MAR 05) 0.6 (MAR 04) 0.5 (MAR 03) PTN 6.9 (MAR 06) 6.8 (MAR 05) L 6.0 (MAR 04) L 6.0 (MAR 03) ALB L 2.9 (MAR 06) L 2.8 (MAR 05) L 2.1 (MAR 04) L 2.2 (MAR 03) MICRO: Outside BAL with gram-negative diplococci IMAGING: Radiology Results (Last 48 hours) [id number] -- 03/01/2022 17:45 CR Chest 1 Vw Portable (03/05/2022 03:05) Result: PORTABLE CHESTHISTORY: Pneumonia.COMPARISON: 03/04/2022.FINDINGS: A single portable radiograph of the chest was performed. Thelife support lines are stable. The patient is rotated to the left. Theheart is normal in size. There is ectasia of the aorta. There arepersistent bilateral moderate effusions with basilar airspace opacitiesthat may represent atelectasis or pneumonia. Given the differences intechnique and positioning, there is no significant change compared toone day prior.IMPRESSION: Persistent moderate effusions with basilaratelectasis/pneumonia. Overall, there is no significant change.Images reviewed, interpreted, dictated and electronically signed by MD Thai CR Abdomen 1 Vw Portable (03/05/2022 16:04) [...] soft tissue: Status post I&D x3 at [facility]. - Acute hypoxic respiratory failure: Pneumonia & edema - Aspiration pneumonia: clear evidence of aspiration - Pulmonary edema - Cardiac arrest at outside hospital prior to transfer to [facility] - Metabolic acidosis: improved - Acute kidney [...] Prognosis poor to fair Klebsiella in sputum documented in this encounter Plan of Treatment Not on file documented as of this encounter Visit Diagnoses Not on filedocumented in this encounter
--- OUTSIDE RECORDS SUMMARY | 2025-02-21 13:40 | XMS_ITS | Encounter Summary ---
Author Organization [employer] Address [address] [place] [address] Care Team Providers Care Cake Mixer Name Role Phone Unavailable Primary Care Provider Unavailabl e Encounter Details Date Type Department Care Team (Late st Contact Info) Description 02/28/2022 Transcribed Document [facility] [place] Family Medicine Formerly [facility], [facility] [place] [address] ProviderFlorentino MD Formerly [facility], [facility] [place] [address] Social History Tobacco Use Types Packs/Day Years Used Date Smoking Tobacco: Never Assessed Comments Unknown Sex and Gender Information Value Date Recorded Sex Assigned at Not on file Legal Sex Female 1:44 PM CDT Gender Identity Not on file Sexual Orientation Not on file documented as of this encounter Miscellaneous Notes * Cerner Conversion Note - Florentino Lynne MD - 02/28/2022 1:49 PM CDT On Going Discharge Planning Entered On: 02/28/2022 13:56 EDT Performed On: 02/28/2022 13:49 EDT by Lanie Cross RN-CASE-PRODUCT RESPONSIBILITY LIAISON-COORDINATOR NON-EXEMPT Care Management Progress Note Discharge Arrangements : [...] Sent to Post Acute Providers : Yes CMS Quality Web Info Shared w Pt/Fam : No Does the Patient have a Floor to SNF Benefit? : No Referral Indicators For Complex SWK Interventions : Other: none Is the Patient Meeting Medical Necessity : Yes Physician Agreeable to Move Forward with D/C Plan? : Yes Did you Attend Multidisciplinary Rounds? : Yes Lanie Cross, KR-IDRA-FGBX MANAGER-COORDINATOR NON-EXEMPT - 02/28/2022 13:49 EDT Narrative Progress Note Narrative Progress Note : MDR attended with team. Referral sent to [facility] and referral is being reviewed. New order placed for PT eval, as they had previously signed off. OT notes state pt may benefit from rehab. Plan: TBD, home with family vs. [facility]. Referral sent to [facility] and is currently being reviewed, per Kat, PT needs to eval, new order for PT placed 02/28 due to them previously signing off. If not [facility], then pt would likely go home with daughter. Family transport vs. [facility] stretcher (follow PT notes to see if pt would be able to sit up in chair appropriately) vs. [facility] transport depending on plan. INPT H Historical Progress Note : Cm spoke with patient dtr Divine on the phone re dc plan. CM explained it is still a little early to decide as PT is going to try and work with patient, OT is working with her now. She advised her and her DJ are going to patients apartment tonight to clean and they are not sending her back there- it is invaded with bed bugs(ICU staff was notified) and section 8. They are wanting patient to come live with them in [place]. BARNEY advised in the next 1-2 days we should be able to get a better plan re discharge and she was good with plan. Divine Linons [phone] PLAN: needs TBD- CM will continue to follow for dc planning. INP HIGH Mai Gibbons, Primo - 02/26/22 14:23:24 Cont to follow for DCP. Pt able [...] at [place]. CM will cont to follow. EMIL ELLISON, Music Industry Internship - 02/25/22 15:40:06 Covering today for DCP. Pt is s/p [...] hip today as well. Sent email to chage pt's emergency contact to her son/BAUDILIO Azul. Pt is longstanding parapalegic and family feel she will need rehab at [place], but do plan on bring pt to live w/ them after rehab. Unfortunately pt only has Aetna Medicaid so sub-acute/SNF rehab highly unlkely, will need acute rehab such as [facility]. CM will cont to follow. INPT HIGH EMIL ELLISON, Music Industry Internship - 02/24/22 15:30:35 61yo female admitted from [facility] after cardiac arrist. The pt was at [facility] after her sister found her at [...] TBD pending hospital course. INP> Mod. Angeles Rushing, PRIMO - 02/22/22 16:17:03 Lanie Cross RN-CASE-PRODUCT RESPONSIBILITY LIAISON-COORDINATOR NON-EXEMPT - 02/28/2022 13:49 EDT documented in this encounter Plan of Treatment Not on file documented as of this encounter Visit Diagnoses Not on filedocumented in this encounter
--- OUTSIDE RECORDS SUMMARY | 2025-02-21 13:40 | XMS_ITS | Encounter Summary ---
Author Organization [employer] Address [address] [place] [address] Care Team Providers Care Dragline Operator Name Role Phone Unavailable Primary Care Provider Unavailabl e Encounter Details Date Type Department Care Team (Late st Contact Info) Description 03/06/2022 Transcribed Document [facility] [place] Family Medicine [address] [place] [address] ProviderFlorentino MD [address] [place] [address] Social History Tobacco Use Types Packs/Day Years Used Date Smoking Tobacco: Never Assessed Comments Unknown Sex and Gender Information Value Date Recorded Sex Assigned at Not on file Legal Sex Female 1:44 PM CDT Gender Identity Not on file Sexual Orientation Not on file documented as of this encounter Miscellaneous Notes * Cerner Conversion Note - Florentino ProviderMD - 03/06/2022 8:29 PM CDT Pain Assessment Entered On: 03/08/2022 2:12 EDT Performed On: 03/07/2022 19:06 EDT by TRINIDAD LANDIS, RN Intervention Information: acetaminophen Performed by Jose Harris RN on 03/07/2022 18:06:00 EDT acetaminophen,650mg Oral,Temperature Pain Assessment Pain Assessment : Follow-up assessment Pain Scale Goal : 3 TRINIDAD LANDIS, RN - 03/08/2022 2:12 EDT documented in this encounter Plan of Treatment Not on file documented as of this encounter Visit Diagnoses Not on filedocumented in this encounter
--- OUTSIDE RECORDS SUMMARY | 2025-02-21 13:40 | XMS_ITS | Encounter Summary ---
Author Organization [facility] Address [address] [place] [address] Care Team Providers Care Evp Business Development Name Role Phone Unavailable Primary Care Provider Unavailabl e Encounter Details Date Type Department Care Team (Late st Contact Info) Description 05/01/2022 Transcribed Document [facility] [place] Family Medicine [address] [place] [address] ProviderFlorentino MD [address] [place] [address] Social History Tobacco Use Types Packs/Day Years Used Date Smoking Tobacco: Never Assessed Comments Unknown Sex and Gender Information Value Date Recorded Sex Assigned at Not on file Legal Sex Female 1:44 PM CDT Gender Identity Not on file Sexual Orientation Not on file documented as of this encounter Miscellaneous Notes * Cerner Conversion Note - Florentino Lynne MD - 05/01/2022 3:43 PM CDT On Going Discharge Planning Entered On: 05/01/2022 15:43 EDT Performed On: 05/01/2022 15:43 EDT by TRISTAN TAYLOR, RN-Load ManagerTree Scout Progress Note Discharge Arrangements : Patient Post-Acute [...] Patient Discharge Goal : Home health care Were Referrals Sent to Post Acute Providers : Yes Is the Patient Meeting Medical Necessity : Yes Did you Attend Multidisciplinary Rounds? : Yes TRISTAN TAYLOR, RN-Load Manager - 05/01/2022 15:43 EDT Narrative Progress Note Narrative Progress Note : RRS HIGH, LOS 2, ELOS 3 Discharged 8.27 and readmitted 8.28 Sepsis-uti Cefepime and micafungin iv until 9.8 Per [facility], pt's insurance is aetna Medicaid with 2nd as [place] Medicaid. Pt agreed to snf-[facility] referral with pref for [facility]. Per patricia, pt is declined. Pt agreed to [facility] snfs and 2nd to [place]. If pt discharges to home because there are no acceting snfs, only insurance accepted is [place] Medicaid NOT aet[place] Medicaid. Will need precert for snf and potential transportation. Historical Progress Note : Patient is now on IV abx, Receiving wound care. Patient stated that she wants to go home. Family informed nursing that patient needs rehab. Nursing told family that they need to discuss this with patient and patient continues to state she wants to go home. Cm called [facility]. They can only accept patient if she truly does have straight Medicaid and not Aetna. CM will confirm insurance on 05/01/2022. CM will continue to follow. ERIK GALARZA Tank Crewmember-Dean Of Students - 04/30/22 14:16:00 TRISTAN TAYLOR, PRIMO-Load Manager - 05/01/2022 15:43 EDT documented in this encounter Plan of Treatment Not on file documented as of this encounter Visit Diagnoses Not on filedocumented in this encounter
--- OUTSIDE RECORDS SUMMARY | 2025-02-21 13:40 | XMS_ITS | Encounter Summary ---
Author Organization [employer] Address [address] [place] [address] Care Team Providers Care Value Engineer Name Role Phone Unavailable Primary Care Provider Unavailabl e Encounter Details Date Type Department Care Team (Late st Contact Info) Description 03/05/2022 Transcribed Document [facility] [place] Family Medicine [address] [place] [address] ProviderFlorentino MD [address] [place] [address] Social History Tobacco Use Types Packs/Day Years Used Date Smoking Tobacco: Never Assessed Comments Unknown Sex and Gender Information Value Date Recorded Sex Assigned at Not on file Legal Sex Female 1:44 PM CDT Gender Identity Not on file Sexual Orientation Not on file documented as of this encounter Miscellaneous Notes * Cerner Conversion Note - Florentino ProviderMD - 03/05/2022 1:07 PM CDT Initial Discharge Planning Entered On: 03/05/2022 13:33 EDT Performed On: 03/05/2022 13:07 EDT by STEFAN FERNANDEZ RN-Gi Asst Initial Assessment I Previously Documented Living Environment : No qualifying data available. Living Situation : Home Patient Lives With : Alone Emergency Contact #1 : FREDO Azul Emergency Contact #1 Emergency Contact #1 Relationship : son Emergency Contact #2 : Divine Jorge Alberto Emergency Contact #2 Emergency Contact #2 Relationship : Daughter in-law Identified Medical Decision Maker : FREDO Azul Identified Medical Decision Maker Number of People in Class : 1 Identified Medical Decision Maker Class : Adult Children Enter Doctors Name : Dr. Cabello Does Patient have PCP Listed? : Yes Legal Guardian : No STEFAN FERNANDEZ RN-Gi Asst - 03/05/2022 13:07 EDT Initial Assessment II Sensory and Motor Deficits : Paraplegia Current Home Treatments and Equipment : CPAP, Wheelchair STEFAN FERNANDEZ RN-Gi Asst - 03/05/2022 13:07 EDT Discharge Needs I Anticipated Discharge Date : 03/15/2022 EDT Anticipated Discharge To, CM : Rehabilitation Unit, Other: LTACH Current Home Treatment/Equipment : Current Home Treatment/Equipment No qualifying data available. Post Acute/Home Treatments : Wheelchair Documentation Status Complete : Yes STEFAN FERNANDEZ RN-Gi Asst - 03/05/2022 13:07 EDT Discharge Needs II Professional Skilled Services : Professional Skilled Services No qualifying data available. Needs Assistance with Transportation : Maybe Discharge Options Discussed with Patient : Acute rehabilitation, Discharge transportation, DME, Home Health, Other: LTACH Patient Discharge Goal : Inpatient rehabilitation facility STEFAN FERNANDEZ RN-Gi Asst - 03/05/2022 13:07 EDT Narrative Note Narrative Note : RAR High ELOS: 5 days HD#3 Covid Vaccine X2 +Booster 61 year old female with history paraplegia, CKD3, DM2, HTN; presented to [facility] with SOB, fever, chills and productive Cough X1 week. Admitted for PNA and debridement DTI to left buttock. Cardiac arrested, intubated and [place] [facility] [facility] [place] She was extubated a couple days later and reintubated the same day and extubated. She was reintubated on 03/01 after failed BiPap and transferred to [facility]. Of note patient had trach/PEG in 2009. Consults: Pulmonary, ID 7/ Intubated Vent Day #5 7 Central Line On MV per ET AC 16/400/40%/P8, sedated with Fentanyl and Propofol, awake and following commands. Na+ trending up 149. Corpak with TF. ID plan: IV Zosyn q8. Wound Vac to left buttock. Patient lives alone in [place]. She is and has one son FREDO. Her PCP s Dr. Cabello. Patient is ADL independent at her baseline. Only inpatient rehab stay was at [facility] at age 9. No prior home health services. She has a CPap and dated WC at home. She transports by her son or Medicaid van. DCP: CM spoke with patient's son FREDO on the phone. He and his plan to ultimately take her home to their house in [place] after hospitalization and LTACH/Rehab stay for IV abx and wound care. Patient has managed medicaid and does not have a SNF benefit. Her inpatient options at discharge will be LTACH or acute rehab versus home with home health. Early referral to [facility]. Son asked if we could assist in getting her a new WC at discharge. He will let CM know the name of her DME provider to see if she is eligible for a new one. CM will assist to get his FMLA paperwork over to [place] office. STEFAN FERNANDEZ, RN-Gi Asst - 03/05/2022 13:07 EDT documented in this encounter Plan of Treatment Not on file documented as of this encounter Visit Diagnoses Not on filedocumented in this encounter
--- OUTSIDE RECORDS SUMMARY | 2025-02-21 13:40 | XMS_ITS | Encounter Summary ---
Author Organization [employer] Address [address] [place] [address] Care Team Providers Care Bank Reconciliator Name Role Phone Unavailable Primary Care Provider Unavailabl e Encounter Details Date Type Department Care Team (Late st Contact Info) Description 02/28/2022 Transcribed Document [facility] [place] [address] [place] [address] ProviderFlorentino MD [facility] [place] [address] Social History Tobacco Use Types Packs/Day Years Used Date Smoking Tobacco: Never Assessed Comments Unknown Sex and Gender Information Value Date Recorded Sex Assigned at Not on file Legal Sex Female 1:44 PM CDT Gender Identity Not on file Sexual Orientation Not on file documented as of this encounter Miscellaneous Notes * Cerner Conversion Note - Florentino Lynne MD - 02/28/2022 11:40 AM CDT Patient: ALYSSA AZUL Age: 61 years Sex: Female : 1960 Associated Diagnoses: None Author: CHICA RAZA MD-FAM Subjective 02/28/22 on bipap weak not feeling well Health Status Allergies: Allergic Reactions (Selected) No Known Allergies, Allergies (1) Active Reaction No Known Allergies None Documented Current medications: (Selected) Inpatient Medications Ordered Chloraseptic Menthol 1.4% topical spray: 1 Jesse, Oral, Q2H, PRN: Sore Throat Dextrose 50% [...] PRN: Pain (Moderate 4-6) Documented Medications Documented [place]-3 1000 mg oral capsule: 1 Cap, Oral, [...] = 1 Tab, Oral, BID With Meals [place]-3 1000 mg oral capsule 1,000 mg = 1 Cap, Oral, QID pravastatin 40 mg oral tablet 40 mg = 1 Tab, Oral, Daily , Medications (28) Active Scheduled: (7) albuterol-ipratropium inh 3 mL 3 mL, Nebulized [...] Gram, IV Piggyback, Q8HInt Continuous: (0) PRN: (21) acetaminophen 325 mg [...] Push, Q6H phenol 1.4% throat spray 1 Jesse, Oral, Q2H potassium bicarb efferves 20 mEq [...] History of obstructive sleep apnea / IMO [id number] / Confirmed, Active Problems (1) History of obstructive sleep apnea Objective Intake and Output Intake & Output Totals Last 24 Hours (7a-7a) Intake (19 Events) Medications (173.91 mL) Enteral Additional Water Given (300 mL) Oral Intake (600 mL) Output (3 Events) Valenzuela Catheter (435 mL) Input Total: 1073.91 mL Output Total: 435 mL Balance: 638.91 mL VS/Measurements Vitals Signs (last 24 hrs) Last Charted Minimum Maximum Temp 98.2 (FEB 28 09:50) 97.9 (FEB 28 00:30) 98.2 (FEB 28 05:00) Mon HR 75 (FEB 28 10:58) 63 (FEB 27 12:00) 79 (FEB 28 09:50) Resp Rate 18 (FEB 28 10:58) 17 (FEB 28 09:50) H 84 (FEB 28 04:50) SBP H 154 (FEB 28 09:50) 110 (FEB 27 12:30) H 162 (FEB 27 13:57) DBP 78 (FEB 28 09:50) 64 (FEB 27 12:30) 85 (FEB 27 13:57) MAP 93 (FEB 28 09:50) 81 (FEB 27 12:30) 99 (FEB 27 13:57) SpO2 96 (FEB 28 10:58) L 93 (FEB 27 20:50) 99 (FEB 27 13:57) General: No acute distress, lying in bed [...] affect. Results Review General results Interpretation: FEB 28 03:03 H 147 H 113 H 53 / H 178 4.0 23 H 2.94 \ FEB 28 03:03 \ L 7.8 / 10.0 197 / L 25.1 \ Labs (Last four charted values) WBC 10.0 (FEB 28) 9.0 (CATRACHITA 30) 9.6 (CATRACHITA 29) H 10.4 (JAN 28) HB L 7.8 (FEB 28) L 8.6 (CATRACHITA 30) L 8.1 (CATRACHITA 29) L 8.3 (CATRACHITA 28) HCT L 25.1 (FEB 28) L 27.5 (CATRACHITA 30) L 25.8 (CATRACHITA 29) L 25.5 (CATRACHITA 28) Plt 197 (FEB 28) 190 (CATRACHITA 30) 203 (CATRACHITA 29) 246 (CATRACHITA 28) Na H 147 (FEB 28) H 148 (JAN 30) H 147 (JAN 29) 146 (JAN 28) K 4.0 (FEB 28) L 3.2 (CATRACHITA 30) 3.6 (CATRACHITA 29) L 3.4 (JAN 28) Cl H 113 (FEB 28) H 113 (JAN 30) 112 (CATRACHITA 29) 110 (CATRACHITA 28) CO2 23 (FEB 28) 22 (CATRACHITA 30) 23 (CATRACHITA 29) L 20 (JAN 28) BUN H 53 (FEB 28) H 50 (CATRACHITA 30) H 50 (CATRACHITA 29) H 48 (CATRACHITA 28) Cr H 2.94 (FEB 28) H 3.12 (CATRACHITA 30) H 3.30 (CATRACHITA 29) H 3.28 (CATRACHITA 28) Glu R H 178 (FEB 28) 97 (CATRACHITA 30) H 153 (CATRACHITA 29) H 178 (JAN 28) Ca L 8.2 (FEB 28) 8.5 (CATRACHITA 30) L 8.2 (JAN 29) L 8.1 (JAN 28) Lactic 0.9 (CATRACHITA 25) 0.7 (CATRACHITA 25) [...] 27) L 5.9 (CATRACHITA 26) L 6.3 (FEB 21) ALB L 1.9 (FEB 26) L 1.7 (FEB 24) L 1.9 (FEB 23) L 1.9 (FEB 21) No Radiology Results Found Impression and Plan acute resp failure - [...] appreciated- recommend wound care consult - d/w vice president of software engineering today- wound vac applied on 02/24 pneumonia [...] the patient due to divert status. Summary [facility] stay: patient admitted to [facility] on 02/17/22, temp in ER of 100.9, [...] necrosis. no pathology sent. Patient transferred to [facility] at midnight on 02/22. 02/22: extubated, given [...] optiflow IV Zosyn tele today 02/28/22 improving Rehab next week d/w RN time spent 35 min Electronically signed by Sumaya [facility] Conversion Animal Stunner Sohaner at 12/21/2022 5:01 PM CDT documented in this encounter Plan of Treatment Not on file documented as of this encounter Visit Diagnoses Not on filedocumented in this encounter
--- OUTSIDE RECORDS SUMMARY | 2025-02-21 13:40 | XMS_ITS | Encounter Summary ---
Author Organization [employer] Address [address] [place] [address] Care Team Providers Care Boardinghouse Keeper Name Role Phone Unavailable Primary Care Provider Unavailabl e Encounter Details Date Type Department Care Team (Late st Contact Info) Description 03/06/2022 Transcribed Document [facility] [place] Family Medicine [address] [place] [address] ProviderFlorentino MD [address] [place] [address] Social History Tobacco Use Types Packs/Day Years Used Date Smoking Tobacco: Never Assessed Comments Unknown Sex and Gender Information Value Date Recorded Sex Assigned at Not on file Legal Sex Female 1:44 PM CDT Gender Identity Not on file Sexual Orientation Not on file documented as of this encounter Miscellaneous Notes * Cerner Conversion Note - Florentino Lynne MD - 03/06/2022 8:53 AM CDT Patient: ALYSSA AZUL Age: 61 years Sex: Female : 1960 Associated Diagnoses: None Author: MARGARETH MANRIQUEZ MD Subjective Continues to be on vent. Health Status Allergies: Allergic Reactions (Selected) No Known Allergies, Allergies (1) Active Reaction No Known Allergies None Documented Current medications: (Selected) Inpatient Medications Ordered D5W 1,000 mL: 60 mL/Hr, IntraVENous Dextrose 50% injection: 12.5 Gram, [...] sodium: 100 mg, Feeding Tube, Daily fentaNYL 2,000 mcg + Dextrose 5% in Water intravenous solution 60 mL: TITRATE, IntraVENous glucagon: 1 mg, IntraMuscular, [...] intravenous solution 250 mL: TITRATE, IntraVENous potassium chloride 10 mEq/50 mL intravenous solution: [...] 1 Tab, Oral, At Bedtime , Medications (36) Active Scheduled: (10) acetylcysteine 20% liq 4 [...] Water 50 mL 2.25 Gram, IV Piggyback, Q8HInt senna 8.8 mg/5 mL liq 8.8 mg 5 mL, Oral, At Bedtime Continuous: (5) dexmedeTOMIDine 400 mcg + NaCl 0.9% TITRATE 100 mL 100 mL, IntraVENous Dextrose 5% in Water 1,000 mL 1,000 mL, IntraVENous, 60 mL/Hr fentaNYL 2,000 mcg + Dextrose 5% in Water 60 mL 60 mL, IntraVENous niCARdipine 25 mg + Dextrose 5% in Water 250 mL 250 mL, IntraVENous propofol 1,000 mg + Premix [...] History of obstructive sleep apnea / IMO [id number] / Confirmed, Active Problems (5) Chronic kidney disease (CKD), stage III (moderate) Diabetes History of obstructive sleep apnea Hyperlipidemia Hypertension Objective VS/Measurements Measurements from flowsheet : Measurements 03/06/2022 6:15 EDT Height Source Chart Height Entry Format [place] Height/Length, TONGAN (ft) 5 ft Height/Length TONGAN 4 Inch CLINICALHEIGHT 162.56 cm Routine Weight Source Bed scale Routine Weight Entry Format Metric Routine Weight, Kilograms 94.2 kg Routine Weight Calculation 94.2 kg Body Mass Index (BMI), Routine 35.65 kg/m2 Body Surface Area (BSA), Routine 1.99 m2 , Vitals Signs (last 24 hrs) Last Charted Minimum Maximum Temp 98.5 (MAR 06 04:00) 98.5 (MAR 06 04:00) 98.6 (MAR 05 19:00) Mon HR 81 (MAR 06 08:10) 61 (MAR 06 02:00) 102 (MAR 06 06:02) Resp Rate 16 (MAR 06 08:10) 14 (MAR 06 05:00) H 33 (MAR 05 18:00) SBP H 167 (MAR 06 07:00) 116 (MAR 05 09:00) H 198 (MAR 06 02:00) DBP 72 (MAR 06 07:00) L 59 (MAR 06 04:00) H 92 (MAR 05 16:00) MAP 104 (MAR 06 07:00) 81 (MAR 06 04:00) 126 (MAR 06 02:00) SpO2 99 (MAR 06 08:10) 95 (MAR 06 00:00) 100 (MAR 05 15:48) Intake & Output Totals Last 24 Hours (7a-7a) Intake (80 Events) Continuous Infusions (1256.25 mL) Medications (353.69 mL) Enteral Additional Water Given (650 mL) Enteral Feeding Amount (250 mL) Output (2 Events) Valenzuela Catheter (1550 mL) Input Total: 2509.94 mL Output Total: 1550 mL Balance: 959.94 mL Physical exam contact may be limited [...] Review Labs (Last four charted values) WBC 5.7 [...] 2.1 (MAR 04) L 2.2 (MAR 03) Impression and Plan 1- JAVIER - nonoliguric. Likely prerenal azotemia/ ATN secondary to septic shock and cardiac arrest. Fe urea 25%. Vancomycin level was >50 on last check. Improving. 2- CKD 3: Baseline creatinine around 1.6. Patient follows with [facility]. 3- Sepsis 4- Hypernatremia: 147- improving. 5- Anemia - Tsat 14% 6- Decubitus ulcer post debridement 7- Respiratory distress - Pneumonia on vent. Plan: - Continue with D5W infusion for hypernatremia. FW infusion with TF. - Albumin infusion to support BP - Keep MAP above 65 mmHg. - Monitor I/o - Avoid nephrotoxic agents. - Adjust meds per renal function - No emergent need of SALARY AND WAGE ADMINISTRATOR. - Monitor H/H and transfuse for Hgb less than 7.0 High risk and complexity patient. Discussed with RN at bedside. Electronically signed by Sumaya [facility] Conversion Drier And Evaporator Operator Cerner at 12/21/2022 5:04 PM CDT documented in this encounter Plan of Treatment Not on file documented as of this encounter Visit Diagnoses Not on filedocumented in this encounter
--- OUTSIDE RECORDS SUMMARY | 2025-02-21 13:40 | XMS_ITS | Encounter Summary ---
Author Organization [employer] Address [address] [place] [address] Care Team Providers Care Corporate Technical Recruiter Name Role Phone Unavailable Primary Care Provider Unavailabl e Encounter Details Date Type Department Care Team (Late st Contact Info) Description 05/02/2022 Transcribed Document [facility] [address] [place] [address] Melinda Sherwood MD [address] [place] [address] [address] [place] [id number] Social History Tobacco Use Types Packs/Day Years Used Date Smoking Tobacco: Never Assessed Comments Unknown Sex and Gender Information Value Date Recorded Sex Assigned at Not on file Legal Sex Female 1:44 PM CDT Gender Identity Not on file Sexual Orientation Not on file documented as of this encounter Miscellaneous Notes * Cerner Conversion Note - Melinda Sherwood MD - 05/02/2022 8:14 AM EDT Please Modify Before Signing CLINICAL DOCUMENTATION CLARIFICATION FORM: Dear Provider: Dr. Sherwood Date: 05/02/2022 Please exercise your independent, professional judgment in responding to the clarification form. Clinical indicators are provided on the bottom of this form for your review Please check appropriate box(es): Deep tissue injuries, present on admission: Right medial great toe: [ x ] Yes [ ] No [ ] Unable to determine Bilateral heels: [ x ] Yes [ ] No [ ] Unable to determine Medial edge of wound base to left trochanter stage 4 ulcer: [ x ] Yes [ ] No [ ] Unable to determine [ ] No deep tissue injury diagnosis [ ] Other diagnosis [ ] Unable to determine For continuity of documentation, please document condition throughout progress notes and discharge summary. Thank You. To be completed by CDI/Coding staff for Provider review: Present Clinical Indicators - Signs / Symptoms / Labs Results and Location in Medical Record X DTPI to right medial great toe and both heels (POA) 04/30-WOCN note X Wound photos 04/30-Nursing notes Present Risk Factors Results and Location in Medical Record X Paraplegia 04/29-H&P Present Treatments Results and Location in Medical Record X Wound care consult 04/29-MD Order X Specialty mattress 04/29-NN-low air loss mattress X Offloading boots 04/30-WOCN recommendation CDS/Equal Opportunity Assistant Signature: Giulia Roman RN, CDS thomas #: [phone] This is a permanent part of the Medical Record 2021 [facility] Reviewed: 05/2022 PRESSURE ULCER STAGES Stage I: Erythema Stage II: Partial thickness Stage III: Full thickness Stage IV: Necrosis to muscle/bone documented in this encounter Plan of Treatment Not on file documented as of this encounter Visit Diagnoses Not on filedocumented in this encounter
--- OUTSIDE RECORDS SUMMARY | 2025-02-21 13:40 | XMS_ITS | Encounter Summary ---
Author Organization [employer] Address [address] [place] [address] Care Team Providers Care Souvenir Assembler Name Role Phone Unavailable Primary Care Provider Unavailabl e Encounter Details Date Type Department Care Team (Late st Contact Info) Description 03/05/2022 Transcribed Document [facility] [place] Family Medicine [address] [place] [address] ProviderFlorentino MD [address] [place] [address] Social History Tobacco Use Types Packs/Day Years Used Date Smoking Tobacco: Never Assessed Comments Unknown Sex and Gender Information Value Date Recorded Sex Assigned at Not on file Legal Sex Female 1:44 PM CDT Gender Identity Not on file Sexual Orientation Not on file documented as of this encounter Miscellaneous Notes * Cerner Conversion Note - Florentino ProviderMD - 03/05/2022 10:28 AM CDT Patient: ALYSSA AZUL Age: 61 years Sex: Female : 1960 Associated Diagnoses: None Author: JAMILAH GEORGES MD Basic Information Pulmonary/CCM Consultation Note Date of Admission: 03/01/22 Date of Consultation: 03/01/22 Referring Provider: Elaine Ramires MD ([facility]) Reason for Consultation: Ventilator/CCM CC: Unobtainable History of Present Illness: This is a 61-year-old female with underlying medical history including paraplegia, CKD, stage III, T2DM, and HTN. At time of evaluation, patient is intubated, sedated, and on ventilator support and both son and jfxsfiix-vg-jgy are present at bedside to give some medical background; therefore, history and hospital course is primarily retrieved from them and through medical chart review. In summary, patient was admitted to [facility] on 02/17/22 with symptoms including dyspnea, [...] higher level care, she was transferred to [facility] on 02/22. Patient was extubated on 02/22 [...] sodium trending up 149 spoke to the stove polisher will start patient on tube feeds will add free water 50 cc/h. Creatinine 2.2 white cell count 5.7 currently patient on Zosyn cultures so far negative chest x-ray reviewed independently showed improvement of bilateral infiltrate but still bilateral lower lobe infiltrate concern for pleural effusions along with atelectasis/pneumonia. Echo pending but reviewing input and output patient is -1400 albumin is 2.8. Intake & Output Totals Last 24 Hours (7a-7a) Intake (51 Events) Continuous Infusions (167.98 mL) Medications (544.14 mL) Output (3 Events) Valenzuela Catheter (1925 mL) Gastric Tube Output: (200 mL) Input Total: 712.12 mL Output Total: 2125 mL Balance: -1412.88 mL Review of Systems Unable to obtain [...] 25% intravenous solution: 25 Gram, 100 mL, 50 mL/Hr, IV Piggyback, 1-Time calcium gluconate: 1 Gram, 100 mL, 100 [...] Tube, Daily fentaNYL injection 2,000 mcg + D5W Premix Diluent 100 mL: TITRATE, IntraVENous glucagon: [...] oral tablet: Tab, Oral, Daily, 0 Refill(s) Almond-3 1000 mg oral capsule: Cap, Oral, QID, [...] tablet: Tab, Oral, Daily, 0 Refill(s), Medications (37) Active Scheduled: (11) acetylcysteine 20% liq 4 mL 1 mL, Nebulized Inhalation, RT_QID albumin human 25% 25 Gram 100 mL, IV Piggyback, 1-Time albuterol-ipratropium inh 3 mL 3 mL, Nebulized [...] 1,000 mL 1,000 mL, IntraVENous, 60 mL/Hr fentaNYL/NaCl 0.9% 2,000 mcg + Premix Diluent D5W TITRATE 100 mL 100 mL, IntraVENous niCARdipine [...] History of obstructive sleep apnea / IMO [id number] / Confirmed, Active Problems (5) Chronic kidney disease (CKD), stage III (moderate) Diabetes History of obstructive sleep apnea Hyperlipidemia Hypertension Physical Examination VS/Measurements Vitals Signs (last 24 hrs) Last Charted Minimum Maximum Temp 98.6 (MAR 05 04:00) 98.6 (MAR 05 04:00) 98.6 (MAR 04 12:00) Apical HR 80 (MAR 05 05:50) 80 (MAR 05 05:50) 80 (MAR 05 05:50) Mon HR 79 (MAR 05 08:17) 61 (MAR 05 05:00) 89 (MAR 04 14:15) Resp Rate L 13 (MAR 05 08:17) L 7 (MAR 04 23:00) 19 (MAR 04 16:30) SBP 126 (MAR 05 06:00) 106 (MAR 04 14:30) H 187 (MAR 05 05:00) DBP 60 (MAR 05 06:00) L 57 (MAR 04 14:30) 79 (MAR 05 03:00) MAP 87 (MAR 05 06:00) 78 (MAR 04 14:30) 114 (MAR 05 04:00) SpO2 96 (MAR 05 08:17) 95 (MAR 05 08:05) 100 (MAR 04 11:15) Intake & Output Totals Last 24 Hours (7a-7a) Intake (51 Events) Continuous Infusions (167.98 mL) Medications (544.14 mL) Output (3 Events) Valenzuela Catheter (1925 mL) Gastric Tube Output: (200 mL) Input Total: 712.12 mL Output Total: 2125 mL Balance: -1412.88 mL General: Sedated on the ventilator. Eye: [...] review: Labs (Last four charted values) WBC 5.7 [...] (MAR 03) 196 (MAR 02) Na H 149 (MAR 05) 146 (MAR 04) 143 (MAR 03) 144 (MAR 03) K 3.8 (MAR 05) 3.7 (MAR 04) 3.7 (MAR 03) L 2.9 (MAR 03) Cl H 118 (MAR 05) H 114 (MAR 04) H 116 (MAR 03) H 115 (MAR 03) CO2 21 (MAR 05) 21 (MAR 04) 23 (MAR 03) 23 (MAR 03) BUN H 37 (MAR 05) H 49 (MAR 04) H 54 (MAR 03) H 55 (MAR 03) Cr H 2.20 (MAR 05) H 2.20 (MAR 04) H 2.30 (MAR 03) H 2.40 (MAR 03) Glu R H 123 (MAR 05) H 116 (MAR 04) H 155 (MAR 03) H 126 (MAR 03) Ca L 8.3 (MAR 05) 8.4 (MAR 04) 8.4 (MAR 03) 8.4 (MAR 03) Lactic 0.5 (MAR 04) 0.6 (MAR 01) PT 10.5 (MAR 04) 11.0 (MAR 02) INR 1.0 (MAR 04) 1.0 (MAR 02) PTT 26.0 (MAR 04) 24.6 (MAR 02) AST 14 (MAR 05) 12 (MAR 04) 15 (MAR 03) 12 (MAR 02) ALT 15 (MAR 05) 16 (MAR 04) 16 (MAR 03) 14 (MAR 02) ALK P 48 (MAR 05) 47 (MAR 04) 44 (MAR 03) 42 (MAR 02) T Bili 0.7 (MAR 05) 0.6 (MAR 04) 0.5 (MAR 03) 0.4 (MAR 02) PTN 6.8 (MAR 05) L 6.0 (MAR 04) L 6.0 (MAR 03) L 6.2 (MAR 02) ALB L 2.8 (MAR 05) L 2.1 (MAR 04) L 2.2 (MAR 03) L 2.3 (MAR 02) . Radiology Results (Last 48 hours) [id number] -- 03/01/2022 17:45 CR Chest 1 Vw Portable (03/04/2022 03:58) [...] transcribed report. CR Chest 1 Vw Portable (03/05/2022 03:05) [...] dictated and electronically signed by MD Thai -CT chest from 03/01/2022 reviewed showed RLL [...] not known SSTI on R hip Neuro Sedated on the vent but wakes up. Intubated, sedated on MV Following commands for me Baseline paraplegia Baseline mentation not observed Renal Iekng-ox-BQG -- improving Electrolyte abnormalities Hyperchloremia Endocrine T2DM Glycemic control Hematology/Oncology Leukocytosis Plan: Vent bundle. Wean FiO2, for goal saturation >90%. Daily spontaneous awakening trial spontaneous breathing trial but given chest x-ray finding less likely patient will be weaned off the vent today. We will continue with antibiotics, will increase the PEEP to 8, I expect patient to be on the mechanical ventilation for the next 1-2 days Chest x-ray reviewed independently showing improvement of right lung infiltrate, still showing bilateral lower lobe opacity concern for atelectasis/pneumonia plus minus pleural effusions. Will increase PEEP to 8. Status post bronchoscopy on 03/05. Bronchial washing done we will follow-up on the cultures. Ultrasound initial report trace pleural effusion significant atelectasis. Final report pending. Sedation: On low-dose Fentanyl. Titrate to RASS goal 0. Precedex can be added if needed DuoNebs Q6h. Pulmicort nebs BID. Mucinex 400mg [...] appreciate input. Glycemic control: per primary. Nutrition: Discussed with the stove polisher today we will start tube feeds trophic feeding advance to goal. Corpak in place. GI prophylaxis: Pepcid. VTE prophylaxis: Heparin SQ CODE STATUS: Full Code Disposition: ICU on 03/03, 10:45 AM. Family meeting: I spoke to the son and the aquzboxi-bf-hin at the bedside explained the findings of [...] 31 minutes critical care time excluding procedures. documented in this encounter Plan of Treatment Not on file documented as of this encounter Visit Diagnoses Not on filedocumented in this encounter
--- OUTSIDE RECORDS SUMMARY | 2025-02-21 13:40 | XMS_ITS | Encounter Summary ---
Author Organization [employer] Address [address] [place] [address] Care Team Providers Care Chief Technical Officer Name Role Phone Unavailable Primary Care Provider Unavailabl e Encounter Details Date Type Department Care Team (Late st Contact Info) Description 03/05/2022 Transcribed Document [facility] [place] Family Medicine [facility] [place] [address] ProviderFlorentino MD [place] [address] Social History Tobacco Use Types Packs/Day Years Used Date Smoking Tobacco: Never Assessed Comments Unknown Sex and Gender Information Value Date Recorded Sex Assigned at Not on file Legal Sex Female 1:44 PM CDT Gender Identity Not on file Sexual Orientation Not on file documented as of this encounter Miscellaneous Notes * Cerner Conversion Note - Florentino Lynne MD - 03/05/2022 11:52 AM CDT WOCN Inpatient Documentation Entered On: 03/05/2022 11:54 EDT Performed On: 03/05/2022 11:52 EDT by Zoë Sales Rn WOCN Admission Date : Admit Date 03/01/2022 17:[address] : No diagnoses found. Reason for WOCN Visit : Assessment, ongoing Admitting Diagnosis ST : Reason for Admission ACUTE RESP FAILURE WOCN Assessment Summary : WOCN follow up on NPWT veraflow. The vac is working properly and dropped off another canister. Pt tolerating well. Zoë Sales Rn - 03/05/2022 11:52 EDT Teaching/Learning Assessment Barriers To Learning : Acuity of Illness Learning Style Preferences Patient : Other: MARIO Learning Style Preferences Family : Demonstration, Printed materials, Verbal explanation Zoë Sales Rn - 03/05/2022 11:52 EDT Wound & Pressure Ulcer WOCN Wound Pressure Ulcer Documentation : Pressure Ulcer Assessment: Hip Left on 03/04/2022 14:04 by Zoë Sales Rn Present on Adm to Hosp: Yes Stage: Stage 4 Device Related: No Dressing Status: Intact Dressing Activity: Dressing changed Date of Dressing Change: :[id number] Wound Bed Description: Granulation (beefy red), Slough (soft yellow or hale) Wound Edge: Attached Surrounding Tissue: Intact Length: 12 Width: 10 Depth: 2.5 Drainage Amount: Moderate Drainage Description: Serous Drainage Odor: None Photographed: Yes Cleansing/Irrigation: Sterile saline Dressing Type/Treatment: NPWT NPWT (PU) Activity: Dressing changed Type of Foam or Gauze Removed (PU): Black Foam Number of Black Foam Removed (PU): 1 Number of TRAC Pads Applied (PU): 1 NPWT (PU) Pressure: Continuous WOCN Ostomy Documentation : No ostomy assessments reported. Zoë Sales Rn - 03/05/2022 11:52 EDT Electronically signed by Sumaya Cox [place] Conversion Associate Professor Computer Science Cerner at 12/21/2022 5:00 PM CDT documented in this encounter Plan of Treatment Not on file documented as of this encounter Visit Diagnoses Not on filedocumented in this encounter
--- OUTSIDE RECORDS SUMMARY | 2025-02-21 13:40 | XMS_ITS | Encounter Summary ---
Author Organization [employer] Address [address] [place] [address] Care Team Providers Care Steel Wool Machine Operator Name Role Phone Unavailable Primary Care Provider Unavailabl e Encounter Details Date Type Department Care Team (Late st Contact Info) Description 02/26/2022 Transcribed Document [facility] [address] [place] [address] ProviderFlorentino MD [address] [place] [address] Social History Tobacco Use Types Packs/Day Years Used Date Smoking Tobacco: Never Assessed Comments Unknown Sex and Gender Information Value Date Recorded Sex Assigned at Not on file Legal Sex Female 1:44 PM CDT Gender Identity Not on file Sexual Orientation Not on file documented as of this encounter Miscellaneous Notes * Cerner Conversion Note - Florentino Lynne MD - 02/26/2022 8:25 AM CDT Patient: ALYSSA AZUL Age: 61 years Sex: Female : 1960 Associated Diagnoses: None Author: TORRES MARTINEZ MD-NEP Subjective Stable overnight Objective VS/Measurements Vitals Signs (last 24 hrs) Last Charted Minimum Maximum Temp 99.1 (FEB 26 04:00) 99.0 (FEB 25 12:00) 99.0 (FEB 25 12:00) Mon HR 66 (FEB 26 06:00) 66 (FEB 26 03:00) 97 (FEB 25 11:00) Resp Rate H 27 (FEB 26 06:00) L 7 (FEB 26 02:00) H 51 (FEB 25 14:30) SBP 131 (FEB 26 06:00) 101 (FEB 25 09:00) H 196 (FEB 25 19:30) DBP 71 (FEB 26 06:00) L 56 (FEB 25 08:45) H 103 (FEB 26 05:30) MAP 96 (FEB 26 06:00) 72 (FEB 25 09:00) 136 (FEB 26 05:30) SpO2 95 (FEB 26 06:00) L 85 (FEB 26 00:17) 98 (FEB 25 12:30) Intake & Output Totals Last 24 Hours (7a-7a) Intake (19 Events) Medications (166.13 mL) Enteral Additional Water Given (1500 mL) Output (10 Events) Ostomy Output, Genitourinary: (750 mL) Urine Voided (Volume) (700 mL) Input Total: 1666.13 mL Output Total: 1450 mL Balance: 216.13 mL Physical exam contact may be limited [...] Review Labs (Last four charted values) WBC 9.6 (FEB 26) H 10.4 (FEB 25) 8.9 (FEB 24) 6.5 (FEB 23) HB L 8.1 (FEB 26) L 8.3 (FEB 25) L 7.5 (FEB 24) L 7.9 (FEB 23) HCT L 25.8 (FEB 26) L 25.5 (FEB 25) L 23.1 (FEB 24) L 24.0 (FEB 23) Plt 203 (FEB 26) 246 (CATRACHITA 28) 217 (CATRACHITA 27) 215 (FEB 23) Na H 147 (FEB 26) 146 (FEB 25) 143 (FEB 24) 146 (FEB 23) K 3.6 (FEB 26) L 3.4 (CATRACHITA 28) 3.7 (CATRACHITA 27) L 3.3 (CATRACHITA 26) Cl 112 (FEB 26) 110 (JAN 28) 110 (FEB 24) H 114 (FEB 23) CO2 23 (FEB 26) L 20 (FEB 25) L 20 (FEB 24) 21 (FEB 23) BUN H 50 (FEB 26) H 48 (FEB 25) H 49 (FEB 24) H 51 (FEB 23) Cr H 3.30 (FEB 26) H 3.28 (FEB 25) H 3.17 (FEB 24) H 3.04 (FEB 23) Glu R H 153 (FEB 26) H 178 (FEB 25) H 217 (FEB 24) 74 (FEB 23) Ca L 8.2 (FEB 26) L 8.1 (FEB 25) L 7.3 (FEB 24) L 6.8 (FEB 23) Lactic 0.9 (FEB 22) 0.7 (FEB 22) AST 13 (FEB 26) 13 (FEB 24) 14 (FEB 23) 17 (FEB 21) ALT 15 (FEB 26) 16 (FEB 24) 16 (FEB 23) 21 (FEB 21) ALK P 51 (FEB 26) 49 (FEB 24) 53 (FEB 23) 76 (FEB 21) T Bili 0.4 (FEB 26) 0.4 (FEB 24) 0.4 (FEB 23) 0.3 (FEB 21) PTN L 6.1 (FEB 26) L 5.4 (FEB 24) L 5.9 (FEB 23) L 6.3 (FEB 21) ALB L 1.9 (FEB 26) L 1.7 (FEB 24) L 1.9 (FEB 23) L 1.9 (FEB 21) Impression and Plan ARF: Creatinine chito stable but elevated at 3.3 with continued nonoliguric urine output.. Patient thought to have prerenal azotemia due to hypotension which may be evolving to ATN along with possible Vanco toxicity.. Previously FeNa borderline at 1.3% with a low Fe urea 25%. Vancomycin level was >50 for least 48 hours. For now continue supportive care. Optimize volume. Monitor strict I's and O's. Watch for renal recovery. No emergent indication for dialysis at this time. Sepsis: Patient with pneumonia and hip ulceration. Patient on antibiotics. May have component of cardiogenic shock with post op cardiac arrest. Albumin quite low. Remains off pressors. Support blood pressure with albumin as needed. Hypernatremia: Sodium increasing to 147. All fluids hypotonic. Continue free water. Hypokalemia: Stable. Previously low with loop diuretic, insulin, bicarb. Continue to replace as needed. Magnesium replaced to>2.0 to assist with renal potassium recovery.. Metabolic acidosis: Stable. Chloride levels improved. Initially bicarb levels quite low with renal failure along with chloride overload.. Patient was getting IV bicarb with improvement. Patient now on p.o. bicarb. Will titrate dose. Anemia: post transfusion for hemoglobin 6.8. Transfuse [...]
--- OUTSIDE RECORDS SUMMARY | 2025-02-21 13:40 | XMS_ITS | Encounter Summary ---
Author Organization [employer] Address [address] [place] [address] Care Team Providers Care Unit Coordinator Name Role Phone Unavailable Primary Care Provider Unavailabl e Encounter Details Date Type Department Care Team (Late st Contact Info) Description 02/26/2022 Transcribed Document [facility] [place] [address] [place] [address] ProviderFlorentino MD [address] [place] [address] Social History Tobacco Use Types Packs/Day Years Used Date Smoking Tobacco: Never Assessed Comments Unknown Sex and Gender Information Value Date Recorded Sex Assigned at Not on file Legal Sex Female 1:44 PM CDT Gender Identity Not on file Sexual Orientation Not on file documented as of this encounter Miscellaneous Notes * Cerner Conversion Note - Florentino ProviderMD - 02/26/2022 8:23 AM CDT Swallow Evaluation Entered On: 02/26/2022 12:05 EDT Performed On: 02/26/2022 11:20 EDT by NICO WOODSON, Speech Language Pathologist General Information Visit Type, GENERAL STORE MANAGER : Initial evaluation Patient Orders : Consult to Speech Language Pathology for Swallow Eval -111 Start: 02/26/22 8:23:00 EDT, Routine, For Swallow Eval and Treat - LUIS ANGEL CUNNINGHAM DO Admission Date : Admission Date/Time: 02/22/22 00:01:00 Medical Chart Reviewed, GENERAL STORE MANAGER : Yes Personal Devices : Personal Devices No Devices Recorded Assistive Devices : Assistive Devices No Devices Recorded Active Diagnoses : 02/22/2022 06:53 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 She presents with weak voice and volitional cough following intubation for approximately 5 days. Recs: 1. Continue tube feeding 2. Ice okay in moderation after oral care 3. Non oral meds 4. ST to reeval tomorrow Previous Speech/Language Evaluations : None in EMR Previous Swallow Precautions : None in EMR Previous Cognitive Evaluations : None in EMR Diet/Intake Prior to Current Admission : Regular/thin Diet/Intake During Current Admission : NPO with tube feeding Gag Reflex Intact : Yes Intubation Comment, GENERAL STORE MANAGER : 02/21-02/22 02/22-02/25 Vital Signs RTF : Vitals Temp BP Pulse RR SpO2 FIO2 Date Wt(kg) Wt(lb) 02/26 11:03 ---- ----- --- 34 96 30.0L/m 02/22 94.2 207 02/26 09:25 ---- ----- --- 29 95 --- 02/22 94.2 207 02/26 09:15 ---- 151/79 --- 32 94 --- 02/22 94.2 207 02/26 09:00 ---- 150/77 --- 31 90 --- 02/22 94.2 02/26 08:45 ---- 150/82 --- 24 98 --- 24 Hr Tmax: No Data Available 36 Hr Tmax: No Data Available Vital Signs are the last 5 in the past 48 hours. Weights display the last 5 within 7 days. Initial Wt: 02/22 94.2 kg 207 lb Respiratory Assessment Comment : Optiflow NICO WOODSON Speech Language Pathologist - 02/26/2022 11:50 EDT General Status Patient Received Status, GENERAL STORE MANAGER : Long sitting in bed Treatment Start Time, GENERAL STORE MANAGER : 02/26/2022 11:20 EDT Patient Left Status, GENERAL STORE MANAGER : Long sitting in bed Treatment End Time, GENERAL STORE MANAGER : 02/26/2022 11:45 EDT Treatment Time, GENERAL STORE MANAGER : 25 Minute(s) NICO WOODSON Speech Language Pathologist - 02/26/2022 11:50 EDT Pain Assessment Pain Scaled Used : 0-10 Pain scale Pain Score Pre-Intervention : 0 (Comment: Patient answered no to all pain questions [NICO WOODSON Speech Language Pathologist - 02/26/2022 11:50 EDT] ) NICO WOODSON Speech Language Pathologist - 02/26/2022 11:50 EDT Image 1 - Images currently included in the form version of this document have not been included in the text rendition version of the form. Oral Mechanism Dysarthria : No Brief Phonation Quality : Breathy Resonance Types : Appropriate Oral Mechanism for Daily Living : Intact GENERAL STORE MANAGER Cough : Weak Facial Appearance: : Symmetrical Labial Appearance : Symmetrical Labial Function : All function intact Dental/Orthodontia : Teeth, own Condition of Dentition : Intact Lingual Appearance : Symmetrical Lingual Function : All function intact Soft Palate (Velum) Appearance : Symmetrical Soft Palate Function : Function intact Hard Palate Appearance/ Structure : Structure intact Mandible Appearance/Structure : Intact Mandibular Function : All function intact NICO WOODSON Speech Language Pathologist - 02/26/2022 11:50 EDT Bedside Swallow Swallow Outcome BS Swallow : Needs additional assessment Head Control BS Swallow : Neutral head position Presentation Style BS Swallow : Clinician Swallow Position BS Swallow : Upright 90 degrees Trunk Control BS Swallow : Upright centered position Consistencies Trialed BS Swallow : Ice chips NICO WOODSON Speech Language Pathologist - 02/26/2022 11:50 EDT Swallow Impressions Impressions, BS Swallow : Signs/Symptoms of oral-pharyngeal dysphagia Contributing Factors BS Swallow : Endurance, decreased, Weak protective reactions Swallowing Outcome Measures : Functional Oral Intake Scale (FOIS) Functional Oral Intake Scale (FOIS) : Level I NICO WOODSON Speech Language Pathologist - 02/26/2022 11:50 EDT Bedside Swallow Overall Impressions : Alyssa Azul, a 61-year-old female, presented to an OSH on 02/20 with L hip decub and LLL pneumonia. She had debridement x2. Post proceduere on 02/20, she had cardiac arrest and respiratory arrest requiring intubation and was transferred to [facility]. She was intubated from 02/20-02/22 and reintubated from 02/22-02/25. She was found to have acute chronic renal failure, hypernatremia, hyperchloremia, DM, HTN, and hyperlipidemia. Prior medical history is significant for a long history of paraplegia. Patient was seen for a dysphagia eval. She was oriented x3 and able to respond to questions and follow simple directions. Per chart review, patient's mental status has returned to baseline. Patient was given PO trials of ice chips via spoon. No cough was observed this date; however, she was reported to cough with previous ice trials. Volitional cough and vocal quality both appear weak. Given observations at bedside and patient's intubation history, it is recommended that she continue NPO diet with tf, non oral meds, ice in moderation after oral care, and ST to reeval tomorrow. Discussed with patient, patient's cousin, and RN. NICO WOODSON Speech Language Pathologist - 02/26/2022 12:11 EDT Swallow Recommendations Recommended Diet Type, SwRec : NPO, OK for ice (Comment: after oral care [NICO WOODSON Speech Language Pathologist - 02/26/2022 12:06 EDT] ) Recommended Exam, Sw Rec : Repeat Bedside Swallow Repeat Swallow Exam Timeframe : 1-3 days NICO WOODSON Speech Language Pathologist - 02/26/2022 12:06 EDT Therapy Indication Assessment GENERAL STORE MANAGER Indicated : Yes GENERAL STORE MANAGER Problem List : Impaired, Swallowing Potential Barriers to GENERAL STORE MANAGER : Acuity of illness NICO WOODSON Speech Language Pathologist - 02/26/2022 12:06 EDT Swallow Plan/Goals Treatment Frequency, GENERAL STORE MANAGER : 5 times per wk Treatment Plan Est w/Pt/Caregvr, Swallow : Yes Treatment Duration, GENERAL STORE MANAGER : Two weeks Therapy at Next Level of Care, GENERAL STORE MANAGER : Acute inpatient rehab NICO WOODSON Speech Language Pathologist - 02/26/2022 12:06 EDT Swallow LTG Grid GENERAL STORE MANAGER Skidder Loader Goal #1 Swallow LTG : Establish safe oral diet without aspiration Status : Initial NICO WOODSON Speech Language Pathologist - 02/26/2022 12:06 EDT Swallow Goals Grid Goal #1 Swallow STG : Other: Reeval Related To : Aspiration prevention Date to Meet : 02/27/2022 EDT Status : Initial goal NICO WOODSON Speech Language Pathologist - 02/26/2022 12:06 EDT Education Barriers To Learning : Acuity of Illness Individuals Taught : Patient, Family member Readiness to Learn : Cooperative Readiness to Learn : Explanation NICO WOODSON Speech Language Pathologist - 02/26/2022 12:06 EDT GENERAL STORE MANAGER Education Assessment Grid 1 Dysphagia : Verbalizes understanding Ice Chips : Verbalizes understanding NPO : Verbalizes understanding Oral Care : Verbalizes understanding NICO WOODSON Speech Language Pathologist - 02/26/2022 12:06 EDT GENERAL STORE MANAGER Education Assessment Grid 2 Review Results of Evaluations : Verbalizes understanding Treatment Plan : Verbalizes understanding NICO WOODSON Speech Language Pathologist - 02/26/2022 12:[address] [facility] GENERAL STORE MANAGER Charges Evaluation Swallowing Function : 1 GENERAL STORE MANAGER EA ADDL 15 MIN NO CHARGE : 1 NICO WOODSON Speech Language Pathologist - 02/26/2022 12:06 EDT Anticipated Discharge Needs, GENERAL STORE MANAGER Anticipated Discharge to : Rehab, high intensity NICO WOODSON Speech Language Pathologist - 02/26/2022 12:06 EDT documented in this encounter Plan of Treatment Not on file documented as of this encounter Visit Diagnoses Not on filedocumented in this encounter
--- OUTSIDE RECORDS SUMMARY | 2025-02-21 13:40 | XMS_ITS | Encounter Summary ---
Author Organization [employer] Address [address] [place] [address] Care Team Providers Care Legal Aide Name Role Phone Unavailable Primary Care Provider Unavailabl e Encounter Details Date Type Department Care Team (Late st Contact Info) Description 03/07/2022 Transcribed Document [facility] [place] Family Medicine [facility] [place] [address] ProviderFlorentino MD [address] [place] [address] Social History Tobacco Use Types Packs/Day Years Used Date Smoking Tobacco: Never Assessed Comments Unknown Sex and Gender Information Value Date Recorded Sex Assigned at Not on file Legal Sex Female 1:44 PM CDT Gender Identity Not on file Sexual Orientation Not on file documented as of this encounter Miscellaneous Notes * Cerner Conversion Note - Florentino Lynne MD - 03/07/2022 10:43 AM CDT Patient: ALYSSA AZUL Age: 61 [...] on ventilator support and both son and [id number] are present at bedside to give some medical background; therefore, history and hospital course is primarily retrieved from them and through medical chart review. In summary, patient was admitted to [facility] on 02/17/22 with symptoms including dyspnea, [...] higher level care, she was transferred to [facility] on 02/22. Patient was extubated on 02/22 [...] sodium trending up 149 spoke to the bow stapler will start patient on tube feeds will [...] on breathing trial again in the afternoon. Intake & Output Totals Last 24 Hours (7a-7a) Intake (107 Events) Continuous Infusions (1527.45 mL) Medications (275.81 mL) Enteral Additional Water Given (220 mL) Enteral Feeding Amount (960 mL) Output (5 Events) Valenzuela Catheter (1300 mL) Input Total: 2983.26 mL Output Total: 1300 mL Balance: 1683.26 mL Review of Systems Unable to obtain [...] IV Push, Q6H, PRN: Hypertension insulin glargine: 12 Units, SubCutaneous, Daily insulin regular sliding scale: [...] Bedtime, 0 Refill(s), Medications (39) Active Scheduled: (10) acetylcysteine 20% liq 4 [...] Q8H insulin glargine 1 unit/0.01 mL inj 12 Units 0.12 mL, SubCutaneous, Daily insulin regular 1 unit/0.01 [...] Titrate 100 mL 100 mL, IntraVENous PRN: (24) acetaminophen 325 mg [...] History of obstructive sleep apnea / IMO [id number] / Confirmed, Active Problems (5) Chronic kidney disease (CKD), stage III (moderate) Diabetes History of obstructive sleep apnea Hyperlipidemia Hypertension Physical Examination VS/Measurements Vitals Signs (last 24 hrs) Last Charted Minimum Maximum Temp 99.3 (MAR 07 08:00) 98.9 (MAR 07 04:00) H 102.3 (MAR 06 20:00) Apical HR 69 (MAR 07 04:50) 66 (MAR 06 22:48) 69 (MAR 07 04:50) Mon HR 92 (MAR 07 09:00) 69 (MAR 06 22:30) 107 (MAR 06 21:00) Resp Rate 19 (MAR 07 09:00) L 7 (MAR 07 04:00) H 47 (MAR 06 15:00) SBP 111 (MAR 07 09:00) 111 (MAR 07 09:00) H 208 (MAR 06 22:00) DBP L 57 (MAR 07 09:00) L 55 (MAR 07 08:00) H 127 (MAR 06 19:00) MAP 77 (MAR 07 09:00) 77 (MAR 07 09:00) 139 (MAR 06 19:00) SpO2 97 (MAR 07:00) L 93 (MAR 06:30) 100 (MAR 06 18:00) Intake & Output Totals Last 24 Hours (7a-7a) Intake (107 Events) Continuous Infusions (1527.45 mL) Medications (275.81 mL) Enteral Additional Water Given (220 mL) Enteral Feeding Amount (960 mL) Output (5 Events) Valenzuela Catheter (1300 mL) Input Total: 2983.26 mL Output Total: 1300 mL Balance: 1683.26 mL General: Off sedation now, awake responds to simple commands on the ventilator. Eye: Pupils are equal, [...] review: Labs (Last four charted values) WBC 9.3 (MAR 07) 5.7 (MAR 05) 6.8 (MAR 04) 6.4 (MAR 03) HB L 6.8 (MAR 07) L 7.1 (MAR 07) L 7.0 (MAR 07) L 7.7 (MAR 06) HCT L 22.5 (MAR 07) L 23.1 (MAR 07) L 23.1 (MAR 07) L 25.3 (MAR 06) Plt L 127 (MAR 07) L 124 (MAR 05) L 161 (MAR 04) 172 (MAR 03) Na 144 (MAR 07) H 147 (MAR 06) H 148 (MAR 05) H 149 (MAR 05) K L 3.4 (MAR 07) L 3.3 (MAR 07) 3.5 (MAR 06) 3.8 (MAR 05) Cl H 117 (MAR [...] 2.8 (MAR 05) L 2.1 (MAR 04) . Radiology Results (Last 48 hours) [id number] -- 03/01/2022 17:45 CR Abdomen 1 Vw [...] MD Thai CR Abdomen 1 Vw Portable (03/06/2022 22:26) Result: [...] transcribed report. CR Chest 1 Vw Portable (03/07/2022 03:37) Result: PORTABLE CHESTHISTORY: Pneumonia, respiratory failure, follow-up.COMPARISON: 03/06/2022.FINDINGS: A single portable radiograph of the chest was performed. Thenasogastric tube has been removed. Other life support lines are stableand in good position. The heart is borderline in size. There ispersistent dense consolidation within the medial right lung base andinfrahilar region. Findings are most consistent with pneumonia.Aspiration should be considered as an etiology. There are minimaleffusions. There is no edema.IMPRESSION: Dense consolidation in the right infrahilar region andmedial right lung base. The lungs are most consistent with pneumonia.Postobstructive atelectasis is not excluded. Consider aspiration in thedifferential.Images reviewed, interpreted, dictated and electronically signed by [...] Baseline paraplegia Baseline mentation not observed Renal [id number] -- improving Electrolyte abnormalities Hyperchloremia Endocrine T2DM Glycemic control Hematology/Oncology Leukocytosis Plan: Vent bundle. Wean FiO2, for goal saturation >90%. Daily spontaneous awakening trial spontaneous breathing trial, patient failed trial early in the morning we will repeat again at noon time and further evaluate. Chest x-ray reviewed independently showed improvement of bilateral lower lobe opacity.\.brTH noted hemoglobin 6.8, will transfuse 1 unit of blood. Status post bronchoscopy on 03/05. Bronchial washing cx negative so far. Sedation: Currently off sedation, will continue to keep patient off sedation will use Precedex low-dose if needed. DuoNebs Q6h. Pulmicort nebs BID. Mucinex 400mg [...] Nutrition: Case has been discussed with the bow stapler, currently on tube feeds, trophic feeding advance to goal. Corpak in place. GI prophylaxis: Pepcid. VTE prophylaxis: Heparin SQ Labs and images reviewed. CODE STATUS: Full Code Disposition: ICU on 03/03, 10:45 AM. Family meeting: I spoke to the son and the [id number] at the bedside explained the findings of [...] the board, questions or concerns were addressed. Family agreed to bronchoscopy on 03/05 which was indicated for worsening right lung infiltrate with thick secretions. Please refer to bronchoscopy note for further details. I have personally evaluated the patient; Obtained history, performed physical examination, reviewed laboratory studies. I have reviewed images independent of radiologist. I have actively directed the medical care, formulated diagnosis, and the plan of care. Patient requires a high complexity of decision making for assessment. 34 minutes critical care time excluding procedures. documented in this encounter Plan of Treatment Not on file documented as of this encounter Visit Diagnoses Not on filedocumented in this encounter
--- OUTSIDE RECORDS SUMMARY | 2025-02-21 13:40 | XMS_ITS | Encounter Summary ---
Author Organization [employer] Address [address] [place] [address] Care Team Providers Care Cellular Tower Climber Name Role Phone Unavailable Primary Care Provider Unavailabl e Encounter Details Date Type Department Care Team (Late st Contact Info) Description 02/28/2022 Transcribed Document [facility] [place] [address] [place] [address] ProviderFlorentino MD [address], [...] Conversion Note - Historical ProviderMD - 02/28/2022 11:15 AM CDT Spiritual Care Short Form Entered On: 02/28/2022 12:04 EDT Performed On: 02/28/2022 11:15 EDT by JOSEF GHOTRA Chaplain General Information, Spiritual Care Spiritual Care Referred by : Inspector Ball Points initiated Reason for Visit : Initial Ministry Provided to : Patient Intervention/Comment/Summary Points : Visited patient in room; she said she was feeling better than at admission. She said she is supported by her family; she does not have any orthodox affiliation. Patient was also tired from PT and wanted to sleep.She indicated she had no needs at the time. Spiritual/Emotional Acuity : Low Spiritual Framework : Not integrated, provides little strength/resource JOSEF GHOTRA Chaplain - 02/28/2022 12:00 EDT documented in this encounter Plan of Treatment Not on file documented as of this encounter Visit Diagnoses Not on filedocumented in this encounter
--- OUTSIDE RECORDS SUMMARY | 2025-02-21 13:40 | XMS_ITS | Encounter Summary ---
Author Organization [employer] Address [address] [place] [address] Care Team Providers Care Cylinder Press Operator Name Role Phone Unavailable Primary Care Provider Unavailabl e Encounter Details Date Type Department Care Team (Late st Contact Info) Description 02/26/2022 Transcribed Document [facility] [place] Family Medicine [address] [place] [address] ProviderFlorentino MD [address] [place] [address] Social History Tobacco Use Types Packs/Day Years Used Date Smoking Tobacco: Never Assessed Comments Unknown Sex and Gender Information Value Date Recorded Sex Assigned at Not on file Legal Sex Female 1:44 PM CDT Gender Identity Not on file Sexual Orientation Not on file documented as of this encounter Miscellaneous Notes * Cerner Conversion Note - Florentino Lynne MD - 02/26/2022 8:10 PM CDT Patient: ALYSSA AZUL Age: 61 years Sex: Female : 1960 Associated Diagnoses: None Author: HIGINIO AREVALO MD-INF Antibiotics: Zosyn CC: Sacral wound Subjective: Patient without fevers now extubated more alert today wound VAC in place some elevated blood pressure Objective: Vitals Signs (last 24 hrs) Last Charted Minimum Maximum Temp 98.2 (FEB 27 00:00) L 96.1 (FEB 26 12:00) 99.1 (FEB 26 04:00) Apical HR 90 (FEB 26 13:18) 90 (FEB 26 13:18) 90 (FEB 26 13:18) Mon HR 64 (FEB 27 00:18) 62 (FEB 26 21:00) 74 (FEB 26 05:30) Resp Rate H 26 (FEB 27 00:18) L 7 (FEB 26 02:00) H 45 (FEB 26 20:20) SBP H 153 (FEB 27 00:00) 115 (FEB 26 15:00) H 183 (FEB 26 05:30) DBP 72 (FEB 27 00:00) L 58 (FEB 26 15:00) H 103 (FEB 26 05:30) MAP 103 (FEB 27 00:00) 80 (FEB 26 15:00) 136 (FEB 26 05:30) SpO2 99 (FEB 27 00:18) L 89 (FEB 26 20:24) 99 (FEB 26 21:00) PE: General: Patient will awaken now off mechanical ventilation HEENT: sclera white without conjunctival [...] LABS: Labs (Last four charted values) WBC 9.6 (JAN 29) H 10.4 (CATRACHITA 28) 8.9 (CATRACHITA 27) 6.5 (CATRACHITA 26) HB L 8.1 (CATRACHITA 29) L 8.3 (CATRACHITA 28) L 7.5 (CATRACHITA 27) L 7.9 (CATRACHITA 26) HCT L 25.8 (CATRACHITA 29) L 25.5 (CATRACHITA 28) L 23.1 (CATRACHITA 27) L 24.0 (CATRACHITA 26) Plt 203 (CATRACHITA 29) 246 (CATRACHITA 28) 217 (CATRACHITA 27) 215 (CATRACHITA 26) Na H 147 (CATRACHITA 29) 146 (CATRACHITA 28) 143 (CATRACHITA 27) 146 (CATRACHITA 26) K 3.6 (CATRACHITA 29) L 3.4 (CATRACHITA 28) 3.7 (CATRACHITA 27) L 3.3 (CATRACHITA 26) Cl 112 (CATRACHITA 29) 110 (CATRACHITA 28) 110 (CATRACHITA 27) H 114 (CATRACHITA 26) CO2 23 (CATRACHITA 29) L 20 (CATRACHITA 28) L 20 (CATRACHITA 27) 21 (CATRACHITA 26) BUN H 50 (CATRACHITA 29) H 48 (CATRACHITA 28) H 49 (CATRACHITA 27) H 51 (CATRACHITA 26) Cr H 3.30 (CATRACHITA 29) H 3.28 (CATRACHITA 28) H 3.17 (CATRACHITA 27) H 3.04 (CATRACHITA 26) Glu R H 153 (CATRACHITA 29) H 178 (CATRACHITA 28) H 217 (CATRACHITA 27) 74 (CATRACHITA 26) Ca L 8.2 (CATRACHITA 29) L 8.1 (CATRACHITA 28) L 7.3 (CATRACHITA 27) L 6.8 (CATRACHITA 26) Lactic 0.9 (CATRACHITA 25) 0.7 (CATRACHITA 25) AST 13 (CATRACHITA 29) 13 (CATRACHITA 27) 14 (CATRACHIAT 26) 17 (CATRACHITA 24) ALT 15 (CATRACHITA 29) 16 (CATRACHITA 27) 16 (CATRACHITA ) 21 (CATRACHITA 24) ALK P 51 (FEB 26) 49 (CATRACHITA 27) 53 (CATRACHITA 26) 76 (CATRACHITA 24) T Bili 0.4 (CATRACHITA 29) 0.4 (CATRACHITA 27) 0.4 (CATRACHITA 26) 0.3 (CATRACHITA 24) PTN L 6.1 (FEB 26) L 5.4 (CATRACHITA 27) L 5.9 (CATRACHITA 26) L 6.3 (CATRACHITA 24) ALB L 1.9 (CATRACHITA 29) L 1.7 (CATRACHITA 27) L 1.9 (CATRACHITA 26) L 1.9 (CATRACHITA 24) MICRO: Pending Outside BAL with gram-negative diplococci IMAGING: Radiology Results (Last 48 hours) [id number] -- 02/22/2022 00:01 CR Chest 1 Vw [...] Status post I&D x3 at [facility]. -Acute hypoxic respiratory failure: Pneumonia & edema [...] Outside records reviewed and summarized as above. - Follow-up all pending cultures from [facility] [place] [place], so far negative - Follow CBC, CMP, CRP, - Continue Zosyn, renally dosed further broad-spectrum coverage for soft tissue infection and now aspiration pneumonia, patient stable on antibiotics wound VAC in place remains now off vent documented in this encounter Plan of Treatment Not on file documented as of this encounter Visit Diagnoses Not on filedocumented in this encounter
--- OUTSIDE RECORDS SUMMARY | 2025-02-21 13:40 | XMS_ITS | Encounter Summary ---
Author Organization [employer] Address [address] [place] [address] Care Team Providers Care Hospitality Internship Name Role Phone Unavailable Primary Care Provider Unavailabl e Encounter Details Date Type Department Care Team (Late st Contact Info) Description 03/06/2022 Transcribed Document [facility] [place] Family Medicine [facility] [address] ProviderFlorentino MD [place] [address] Social History Tobacco Use Types Packs/Day Years Used Date Smoking Tobacco: Never Assessed Comments Unknown Sex and Gender Information Value Date Recorded Sex Assigned at Not on file Legal Sex Female 1:44 PM CDT Gender Identity Not on file Sexual Orientation Not on file documented as of this encounter Miscellaneous Notes * Cerner Conversion Note - Historical ProviderMD - 03/06/2022 6:15 AM CDT Height and Weight, Routine Entered On: 03/06/2022 6:15 EDT Performed On: 03/06/2022 6:15 EDT by Columba Castro [facility] Height and Weight, Routine Routine Weight Source : Bed scale Routine Weight Entry Format : Metric Routine Weight, Kilograms : 94.2 kg(Converted to: 207 lb 11 oz) Routine Weight Calculation : 94.2 kg Height Source : Chart Height Entry Format : Miller Height, Feet : 5 ft Height, Inches : 4 Inch Clinical Height : 162.56 cm Body Surface Area (BSA), Routine : 1.99 m2 Body Mass Index (BMI), Routine : 35.65 kg/m2 Columba Castro [facility] - 03/06/2022 6:15 EDT documented in this encounter Plan of Treatment Not on file documented as of this encounter Visit Diagnoses Not on filedocumented in this encounter
--- OUTSIDE RECORDS SUMMARY | 2025-02-21 13:40 | XMS_ITS | Encounter Summary ---
Author Organization [employer] Address [address] [place] [address] Care Team Providers Care Bill Adjuster Name Role Phone Unavailable Primary Care Provider Unavailabl e Encounter Details Date Type Department Care Team (Late st Contact Info) Description 02/26/2022 Transcribed Document [facility] Family Medicine [facility] [place] [address] ProviderFlorentino MD [facility] [place] [address] Social History Tobacco Use Types Packs/Day Years Used Date Smoking Tobacco: Never Assessed Comments Unknown Sex and Gender Information Value Date Recorded Sex Assigned at Not on file Legal Sex Female 1:44 PM CDT Gender Identity Not on file Sexual Orientation Not on file documented as of this encounter Miscellaneous Notes * Cerner Conversion Note - Florentino Lynne MD - 02/26/2022 2:18 PM CDT On Going Discharge Planning Entered On: 02/26/2022 14:23 EDT Performed On: 02/26/2022 14:18 EDT by Mai Gibbons Rn Care Management Progress Note Discharge Arrangements [...] Sent to Post Acute Providers : No [facility] Quality Web Info Shared w Pt/Fam : No Does the Patient have a Floor to SNF Benefit? : No Is the Patient Meeting Medical Necessity : Yes Did you Attend Multidisciplinary Rounds? : No Mai Gibbons, Primo - 02/26/2022 14:18 EDT Narrative Progress Note Narrative Progress Note : Cm spoke with patient dtr Divine on the phone re dc plan. CM explained it is still a little early to decide as PT is going to try and work with patient, OT is working with her now. She advised her and her FREDO are going to patients apartment tonight to clean and they are not sending her back there- it is invaded with bed bugs(ICU staff was notified) and section 8. They are wanting patient to come live with them in [place]. CM advised in the next 1-2 days we should be able to get a better plan re discharge and she was good with plan. Divine Azul [phone] PLAN: needs TBD- CM will continue to follow for dc planning. INP HIGH Historical Progress Note : Cont to follow for [...] ill. Will need acute re[place]t at [place]. CM will cont to follow. EMIL ELLISON, Fur Trapper - 02/25/22 15:40:06 Covering today for DCP. [...] hip today as well. Sent email to sherrie pt's emergency contact to her son/POA FREDO Azul. Pt is longstanding parapalegic and family feel she will need rehab at [place], but do plan on bring pt to live w/ them after rehab. Unfortunately pt only has [employer] Medicaid so sub-acute/SNF rehab highly unlkely, will need acute rehab such as [facility]. CM will cont to follow. INRONALD ELLISON EMIL W., Fur Trapper - 02/24/22 15:30:35 61yo female admitted from [facility] after cardiac arrist. The pt was at [facility] after her sister found her at [...] Mod. Angeles Rushing RN - 02/22/22 16:17:03 Mai Gibbons Rn - 02/26/2022 14:18 EDT documented in this encounter Plan of Treatment Not on file documented as of this encounter Visit Diagnoses Not on filedocumented in this encounter
--- OUTSIDE RECORDS SUMMARY | 2025-02-21 13:40 | XMS_ITS | Encounter Summary ---
Author Organization [employer] Address [address] [place] [address] Care Team Providers Care Side Stapler Name Role Phone Unavailable Primary Care Provider Unavailabl e Encounter Details Date Type Department Care Team (Late st Contact Info) Description 05/02/2022 Transcribed Document [facility] Family Medicine [address] [place] [address] ProviderFlorentino MD [address] [place] [address] Social History Tobacco Use Types Packs/Day Years Used Date Smoking Tobacco: Never Assessed Comments Unknown Sex and Gender Information Value Date Recorded Sex Assigned at Not on file Legal Sex Female 1:44 PM CDT Gender Identity Not on file Sexual Orientation Not on file documented as of this encounter Miscellaneous Notes * Cerner Conversion Note - Historical ProviderMD - 05/02/2022 2:00 AM CDT Aircraft Inspection Record Clerk Details Entered On: 05/02/2022 1:35 EDT Performed On: 05/02/2022 2:00 EDT by Casey Palacios Non Emp [...] No Casey Palacios Non Emp RN - 05/02/2022 1:35 EDT documented in this encounter Plan of Treatment Not on file documented as of this encounter Visit Diagnoses Not on filedocumented in this encounter
--- OUTSIDE RECORDS SUMMARY | 2025-02-21 13:40 | XMS_ITS | Encounter Summary ---
Author Organization [employer] Address [address] [place] [address] Care Team Providers Care Assembly Loader Name Role Phone Unavailable Primary Care Provider Unavailabl e Encounter Details Date Type Department Care Team (Late st Contact Info) Description 02/26/2022 Transcribed Document [facility] [place] [address] [place] [address] ProviderFlorentino MD [address] [place] [address] Social History Tobacco Use Types Packs/Day Years Used Date Smoking Tobacco: Never Assessed Comments Unknown Sex and Gender Information Value Date Recorded Sex Assigned at Not on file Legal Sex Female 1:44 PM CDT Gender Identity Not on file Sexual Orientation Not on file documented as of this encounter Miscellaneous Notes * Cerner Conversion Note - Florentino Lynne MD - 02/26/2022 5:00 PM CDT Chart Check - Review Order Profile Entered On: 02/26/2022 17:07 EDT Performed On: 02/26/2022 17:00 EDT by Maritza Elena RN Chart Check Powerplans Initiated/Discontinued as Appropriate : Yes All Active Orders Reviewed : Yes Maritza Elena RN - 02/26/2022 17:07 EDT Electronically signed by Sumaya [facility] Conversion Film Archivist Cerner at 12/21/2022 5:08 PM CDT documented in this encounter Plan of Treatment Not on file documented as of this encounter Visit Diagnoses Not on filedocumented in this encounter
--- OUTSIDE RECORDS SUMMARY | 2025-02-21 13:40 | XMS_ITS | Encounter Summary ---
Author Organization [employer] Address [address] [place] [address] Care Team Providers Care Insecticide Sprayer Name Role Phone Unavailable Primary Care Provider Unavailabl e Encounter Details Date Type Department Care Team (Late st Contact Info) Description 02/26/2022 Transcribed Document [facility] [place] [facility] [place] [address] ProviderFlorentino MD [address] [place] [address] Social History Tobacco Use Types Packs/Day Years Used Date Smoking Tobacco: Never Assessed Comments Unknown Sex and Gender Information Value Date Recorded Sex Assigned at Not on file Legal Sex Female 1:44 PM CDT Gender Identity Not on file Sexual Orientation Not on file documented as of this encounter Miscellaneous Notes * Cerner Conversion Note - Florentino Lynne MD - 02/26/2022 12:53 PM CDT Patient: ALYSSA AZUL Age: 61 years Sex: Female : 1960 Associated Diagnoses: None Author: KEILY CUNNINGHAM DO Subjective patinet seen by me this morning, extubated on 02/25 and currently on optiflow. she worked with OT this morning and is currently working with speech therapy. she tells me that she feels tired but no coughing or sob. she tells me that on 02/17 she started feeling fevers and felt around which is when she noticed the LEFT decubitus- she can not feel it. she has had urostomy since age 9yo. Objective Intake and Output Intake & Output Totals Last 24 Hours (7a-7a) Intake (19 Events) Medications (166.13 mL) Enteral Additional Water Given (1500 mL) Output (10 Events) Ostomy Output, Genitourinary: (750 mL) Urine Voided (Volume) (700 mL) Input Total: 1666.13 mL Output Total: 1450 mL Balance: 216.13 mL VS/Measurements Vitals Signs (last 24 hrs) Last Charted Minimum Maximum Temp 99.1 (FEB 26 04:00) 99.0 (FEB 25 20:00) 99.2 (FEB 25 16:00) Mon HR 64 (FEB 26 11:03) 64 (FEB 26 11:03) 86 (FEB 25 13:00) Resp Rate H 34 (FEB 26 11:03) L 7 (FEB 26 02:00) H 51 (FEB 25 14:30) SBP H 151 (FEB 26 09:15) 107 (FEB 25 21:15) H 196 (FEB 25 19:30) DBP 79 (FEB 26 09:15) L 59 (FEB 25 23:15) H 103 (FEB 26 05:30) MAP 110 (FEB 26 09:15) 78 (FEB 25 21:15) 136 (FEB 26 05:30) SpO2 96 (FEB 26 11:03) L 85 (FEB 26 00:17) 98 (FEB 25 13:45) General: No acute distress, lying in bed [...] affect. Results Review General results Interpretation: FEB 26 03:51 H 147 112 H 50 / H 153 3.6 23 H 3.30 \ FEB 26 03:51 \ L 8.1 / 9.6 203 / L 25.8 \ Labs (Last four charted values) WBC 9.6 (FEB 26) H 10.4 (FEB 25) 8.9 (CATRACHITA 27) 6.5 (CATRACHITA 26) HB [...] 49 (CATRACHITA 27) 53 (CATRACHITA 26) 76 (CATRACHIAT 24) T Bili 0.4 (CATRACHITA 29) 0.4 (CATRACHITA 27) 0.4 (CATRACHITA 26) 0.3 (CATRACHITA 24) PTN L 6.1 (CATRACHITA 29) L 5.4 (CATRACHITA 27) L 5.9 (CATRACHITA 26) L 6.3 (CATRACHITA 24) ALB L 1.9 (CATRACHITA 29) L 1.7 (CATRACHITA 27) L 1.9 (CATRACHITA 26) L 1.9 (CATRACHITA 24) Radiology Results (Last 48 hours) [id number] -- 02/22/2022 00:01 CR Chest 1 Vw [...] appreciated- recommend wound care consult - d/w hot wound spring production supervisor today- wound vac applied on 02/24 pneumonia [...] the patient due to divert status. Summary [facility] stay: patient admitted to [facility] on 02/17/22, temp in ER [...] necrosis. no pathology sent. Patient transferred to [facility] at midnight on 02/22. [...] and ST today. d/w family at bedside. d/w pulmonology and nephrology today. time spent: 35 min d/w son, FREDO, via phone on 02/23. d/w family member at bedside on 02/26. discharge goals: extubated on 02/25, pt/ot/st today, monitor renal function. try to wean off optiflow. may need SNF. Keily Cunningham D.O. [facility] Hospitalist pager- [phone] Electronically signed by Sumaya, [facility] Conversion Social Science Research Assistant Cerner at 12/21/2022 5:08 PM CDT documented in this encounter Plan of Treatment Not on file documented as of this encounter Visit Diagnoses Not on filedocumented in this encounter
--- OUTSIDE RECORDS SUMMARY | 2025-02-21 13:40 | XMS_ITS | Encounter Summary ---
Author Organization [employer] Address [address] [place] [address] Care Team Providers Care Microfiche Camera Operator Name Role Phone Unavailable Primary Care Provider Unavailabl e Encounter Details Date Type Department Care Team (Late st Contact Info) Description 04/11/2022 Transcribed Document [facility] Family Medicine [address] [place] [address] ProviderFlorentino MD [address] [place] [address] Social History Tobacco Use Types Packs/Day Years Used Date Smoking Tobacco: Never Assessed Comments Unknown Sex and Gender Information Value Date Recorded Sex Assigned at Not on file Legal Sex Female 1:44 PM CDT Gender Identity Not on file Sexual Orientation Not on file documented as of this encounter Miscellaneous Notes * Cerner Conversion Note - Historical ProviderMD - 04/11/2022 8:41 AM CDT Evaluation, Occupational Therapy Entered On: 04/13/2022 15:36 EDT Performed On: 04/13/2022 14:39 EDT by MELANI QUIJANO, OTR/L General Information, OT Visit Type, OT : Initial evaluation Patient Orders : Order Date Order Ordering 04/11/2022 08:41 OT Evaluation and Treatment Ordered By: JAMILAH GEORGES MD Active Diagnoses : 04/08/2022 12:00 Acidosis 04/08/2022 12:00 Acute kidney failure, unspecified 04/08/2022 12:00 Acute pancreatitis without necrosis or infection, unspecified 04/08/2022 12:00 Altered mental status 04/08/2022 12:00 Altered mental status, unspecified 04/08/2022 12:00 Hyperkalemia 04/08/2022 12:00 Sepsis, unspecified organism 04/08/2022 12:00 Unspecified fall, initial encounter 04/08/2022 12:00 Urinary tract infection, site not specified Therapy Diagnosis, OT : Decrease in Ind with ADL's and fxl mobility/transfers due to weakness and medical condition Admission Date : 04/08/2022 07:53 Personal Devices : Personal Devices No Devices Recorded Assistive Devices : Assistive Devices No Devices Recorded Precautions in Place : Fall prevention measures, Seizure precautions General Information Comment, OT : 61 yr old female admit with UTI, ARF, hyperkalemia, metabolic acidosis, and s/p fall at outside rehab facility Hx: CKD III, paraplegia, diabetes, HLD, HTN [facility] and an overall terrible experience; wants to D/C home with son in [place] MELANI QUIJANO OTR/[place] - 04/13/2022 15:20 EDT General Status Patient Received Status : Supine in bed, HOB elevated Treatment Start Time : 04/13/2022 14:14 EDT Patient Left Status : Supine in bed, RN/PCT informed, All needs met and within reach RN/PCT Informed Comment : Andrés TILLMAN to see pt this date Treatment End Time : 04/13/2022 14:39 EDT Treatment Time : 25 Minute(s) Actual Treatment Time : 28 Minute(s) (Comment: 3 min chart review, collaboration, and clinical reasoning [MELANI QUIJANO OTR/[place] - 04/13/2022 15:20 EDT] ) MELANI QUIJANO OTR/[place] - 04/13/2022 15:20 EDT History and Environment, OT Living Situation, Therapy : Other: Lived home alone, admitted from a rehab facility Patient Lives With : Adult Child/Children, Caregiver(s) Persons Assisting Patient at Home : Alone Professional Skilled Services : None Persons Providing Information : Patient Home Equipment, Therapy : Ramp, access, Bed, Other: States they are working to get her a new wheelchair as her wheelchair broke, as well as a shower chair, and has a new cushion ordered as well Bed : Bed, hospital Home Setup : One story Stairs : No Ramp : Yes MELANI QUIJANO OTR/[place] - 04/13/2022 15:20 EDT Prior LOF Bathing, OT : Independent Prior LOF Bed Mobility : Independent Prior LOF Upper Body Dressing, OT : Independent Prior LOF Lower Body Dressing, OT : Independent Prior LOF Toileting : Independent Prior LOF Transfer : Independent Prior LOF Grooming, OT : Independent Prior LOF Wheel Chair Mobility : Independent Prior LOF for IADLs, OT : Assist needed MELANI QUIJANO OTR/[place] - 04/13/2022 15:20 EDT History and Environment Comment, OT : Before previous hospitalization, pt was Mod Ind at wheelchair level in her own apartment. Pt has since D/C from hospital been at rehab facility where she did 1 transfer to a wheelchair, but remained in bed mostly MELANI QUIJANO OTR/[place] - 04/13/2022 15:20 EDT Upper Extremity Right UE Active ROM : WFL Right UE Strength : WFL Left UE Active ROM : WFL Left UE Strength : WFL MELANI QUIJANO OTR/[place] - 04/13/2022 15:20 EDT Right Upper Extremity MMT Shoulder Flexion 0-180 : 4/good Shoulder Extension 0-60 : 5/normal Shoulder Abduction 0-180 : 4/good Shoulder Adduction 0-180 : 5/normal Shoulder Internal Rotation 0-90 : 5/normal Shoulder External Rotation 0-90 : 5/normal Elbow Flexion 0-150 : 5/normal Elbow Extension 0-0 : 5/normal Wrist Flexion 0-80 : 5/normal Wrist Extension 0-70 : 5/normal Forearm Pronation 0-70 : 5/normal Forearm Supination 0-85 : 5/normal Ulnar Deviation 0-45 : 5/normal RadialDeviation 0-20 : 5/normal MELANI QUIJANO OTR/[place] - 04/13/2022 15:20 EDT Left Upper Extremity MMT Shoulder Flexion 0-180 : 4/good Shoulder Extension 0-60 : 5/normal Shoulder Abduction 0-180 : 4/good Shoulder Adduction 0-180 : 5/normal Shoulder Internal Rotation 0-90 : 5/normal Shoulder External Rotation 0-90 : 5/normal Elbow Flexion 0-150 : 5/normal Elbow Extension 0-0 : 5/normal Wrist Flexion 0-80 : 5/normal Wrist Extension 0-70 : 5/normal Forearm Pronation 0-70 : 5/normal Forearm Supination 0-85 : 5/normal Ulnar Deviation 0-45 : 5/normal RadialDeviation 0-20 : 5/normal MELANI QUIJANO OTR/[place] - 04/13/2022 15:20 EDT Self Care/Home Management, OT Self Feeding Assist Level, OT : Independent, modified Grooming Assist Level, OT : Supervision or set-up Bathing Assist Level, OT : Assist, moderate Upper Body Dressing Assist Level, OT : Assist, minimal Lower Body Dressing Assist Level, OT : Assist, maximal Toileting Assist Level : Assist, total Toilet Transfer Assist Level : Assist, total MELANI QUIJANO OTR/[place] - 04/13/2022 15:20 EDT Functional Mobility Bed Comment : Declined EOB this date as she had already completed with PT and was freezing cold but overall comfortable with all her blankets. Min A to EOB per PT tx note earlier this date MELANI QUIJANO OTR/[place] - 04/13/2022 15:20 EDT Cognition Assessment, OT Orientation : Oriented x 4 MELANI QUIJANO OTR/[place] - 04/13/2022 15:20 EDT Indication Assessment, OT Occupational Therapy Indicated : Yes Problem List, OT : Impaired, bed mobility, Impaired, activities daily living, Impaired functional mobility, Impaired, sitting balance, Impaired, standing balance, Impaired, strength, Impaired, transfers Potential Barriers, OT : Acuity of illness Rehabilitation Potential, OT : Fair MELANI QUIJANO OTR/[place] - 04/13/2022 15:20 EDT Plan of Care, OT OT Tx Plan/Goals Established w Patient : Yes OT Frequency Rehab : Five days per week OT Treatments Planned : Activities of daily living, Balance training, Safety education, Therapeutic activities, Therapeutic exercises Plan of Care Comment, OT : POC initiated MELANI QUIJANO OTR/[place] - 04/13/2022 15:20 EDT Residential Goals, OT Grooming LTG Grid Goal #1 Activity : Grooming Assist : Independent, modified Date to Meet : 04/27/2022 EDT Goal Status : Initial goal Comment : sitting EOB unsupported MELANI QUIJANO OTR/[place] - 04/13/2022 15:20 EDT Dressing, Lower Body LTG Grid Goal #1 Activity : Dressing, Lower Body Assist : Independent, modified Date to Meet : 04/27/2022 EDT Goal Status : Initial goal MELANI QUIJANO OTR/[place] - 04/13/2022 15:20 EDT Toilet Transfer LTG Grid Goal #1 Activity : Toilet Transfer, Sliding Board Assist : Independent, modified Equipment : Drop-arm Bedside Commode, Bariatric Bedside Commode Date to Meet : 04/27/2022 EDT Goal Status : Initial goal MELANI QUIJANO OTR/[place] - 04/13/2022 15:20 EDT Bed Mobility/ Bed Transfer LTG Grid Goal #1 Assist : Independent, modified Date to Meet : 04/27/2022 EDT Goal Status : Initial goal MELANI QUIJANO OTR/[place] - 04/13/2022 15:20 EDT Wheelchair Transfer LTG Grid Goal #1 Activity : Wheelchair, Power, Sliding Board Assist : Independent, modified Date to Meet : 04/27/2022 EDT Goal Status : Initial goal MELANI QUIJANO OTR/[place] - 04/13/2022 15:20 EDT Treatment Note Subjective Comment : Pt agreeable and cooperative to participate in skilled OT eval/interview Pt stated her goal was to go home with her son. Pt also said doctor wants her to be careful with her BLE wounds. Need clarification if can attempt slide board transfer Patient's Response to Treatment : Pt tolerated well\ RN informed of possible referral needed for R hand atrophy-possible neurological or autoimmune disease effects? Additional Objective Information : Pt sitting up right in bed on arrival and agreed to participate. Participation in BUE strength and ROM assessment with 5/5 relatively MMT. Pt declined EOB this date but agreed to strengthening ax's. Pt provided with green moderate resistance theraband and given written HEP and educated in its use. Pt also provided with squeeze ball for increasing mangle press catcher in RUE. Pt left semi supine in bed with all needs met and call light in reach. Assessment : Pt will benefit from skilled OT services to improve strength, balance, ax tolerance, endurance, safety, education, and training for increased Ind in ADL's, fxl mobility/transfers, and participation in valued daily ax's. Plan for Treatment : POC initiated MELANI QUIJANO OTR/[place] - 04/13/2022 15:20 EDT Pain Assessment Pain Scaled Used : 0-10 Pain scale Pain Score Pre-Intervention : 0 MELANI QUIJANO OTR/L - 04/13/2022 15:20 EDT Image 1 - Images currently included in the form version of this document have not been included in the text rendition version of the form. Anticipated Discharge Needs, OT/PT Anticipated Discharge to : Home, with home health, Unit, rehabilitation MELANI QUIJANO OTR/L - 04/13/2022 15:[address] [facility] OT Charges OT Ther Activities Ea 15 Min : 1 OT Eval Moderate Complexity : 1 MELANI QUIJANO OTR/L - 04/13/2022 15:20 EDT documented in this encounter Plan of Treatment Not on file documented as of this encounter Visit Diagnoses Not on filedocumented in this encounter
--- OUTSIDE RECORDS SUMMARY | 2025-02-21 13:40 | XMS_ITS | Encounter Summary ---
Author Organization [employer] Address [address] [place] [address] Care Team Providers Care Multifocal Lens Inspector Name Role Phone Unavailable Primary Care Provider Unavailabl e Encounter Details Date Type Department Care Team (Late st Contact Info) Description 02/28/2022 Transcribed Document [facility] [place] [address] [place] [address] ProviderFlorentino MD [address] [place] [address] Social History Tobacco Use Types Packs/Day Years Used Date Smoking Tobacco: Never Assessed Comments Unknown Sex and Gender Information Value Date Recorded Sex Assigned at Not on file Legal Sex Female 1:44 PM CDT Gender Identity Not on file Sexual Orientation Not on file documented as of this encounter Miscellaneous Notes * Cerner Conversion Note - Historical ProviderMD - 02/28/2022 3:45 PM CDT Attempt to Treat, PT Entered On: 02/28/2022 16:01 EDT Performed On: 02/28/2022 15:45 EDT by JONATHAN HOPKINS, PT Attempt to Treat Unable to Treat Due To : Acuity of Illness, Fatigue, Patient Refusal Inability to Treat Comment : Patient request PT EVAL in the AM when she has more energy. Patient was breathless- gasps of air - on 4L O2 nasal cannula. States she's too fatigued to try - hasn't been out of bed in 2 weeks. Will likely need assist of more than 1 person. Notification : RN- Marycarmen Patient will ask her son to bring in her wheelchair from home for practicing transfers during hospitalization. JONATHAN HOPKINS, PT - 02/28/2022 15:56 EDT Electronically signed by Sumaya [facility] Conversion Preparation Department Supervisor Cerner at 12/21/2022 5:06 PM CDT documented in this encounter Plan of Treatment Not on file documented as of this encounter Visit Diagnoses Not on filedocumented in this encounter
--- OUTSIDE RECORDS SUMMARY | 2025-02-21 13:40 | XMS_ITS | Encounter Summary ---
Author Organization [employer] Address [address] [place] [address] Care Team Providers Care Field Control Inspector Name Role Phone Unavailable Primary Care Provider Unavailabl e Encounter Details Date Type Department Care Team (Late st Contact Info) Description 05/02/2022 Transcribed Document [facility] [place] Family Medicine [address] [place] [address] [place] [address] Social History Tobacco Use Types Packs/Day Years Used Date Smoking Tobacco: Never Assessed Comments Unknown Sex and Gender Information Value Date Recorded Sex Assigned at Not on file Legal Sex Female 1:44 PM CDT Gender Identity Not on file Sexual Orientation Not on file documented as of this encounter Miscellaneous Notes * Cerner Conversion Note - Florentino Lynne MD - 05/02/2022 6:28 PM CDT Patient: ALYSSA AZUL Age: 62 years Sex: Female : 1960 Associated Diagnoses: None Author: HIGINIO AREVALO MD-INF Antibiotics: Cefepime and micafungin CC Sacral wound Subjective: Patient with no fevers elevated blood pressure sitting up tolerating antibiotics unable to get home health Objective: Vitals Signs (last 24 hrs) Last [...] (MAY 01 05:05) PE: General: alert, oriented x3 HEENT: sclera [...] continue cefepime renally adjusted 1 g every 12 hours, Zyvox, and micafungin clinically improving decreased fever plans for possible discharge home RECOMMENDATIONS/PLANS: Continue cefepime 1 g IV every 12 hours through 05/08/2022 Continue micafungin 100 mg IV daily through 05/08/2022 Switch Zyvox to 600 p.o. twice daily x7-day Follow-up on cultures Creatinine down to 1 okay with PICC line if renal agrees versus tunneled cath I will see again on Thursday please call if any questions over the weekend documented in this encounter Plan of Treatment Not on file documented as of this encounter Visit Diagnoses Not on filedocumented in this encounter
--- OUTSIDE RECORDS SUMMARY | 2025-02-21 13:40 | XMS_ITS | Encounter Summary ---
Author Organization [employer] [facility] Address [address] [place] [address] Care Team Providers Care Insole Taper Name Role Phone Unavailable Primary Care Provider Unavailabl e Encounter Details Date Type Department Care Team (Late st Contact Info) Description 04/11/2022 Transcribed Document [facility] [place] Family [facility] [place] [address] ProviderFlorentino MD [address] [place] [address] Social History Tobacco Use Types Packs/Day Years Used Date Smoking Tobacco: Never Assessed Comments Unknown Sex and Gender Information Value Date Recorded Sex Assigned at Not on file Legal Sex Female 1:44 PM CDT Gender Identity Not on file Sexual Orientation Not on file documented as of this encounter Miscellaneous Notes * Cerner Conversion Note - Florentino Lynne MD - 04/11/2022 10:30 AM CDT UM Authorization Entered On: 04/11/2022 10:31 EDT Performed On: 04/11/2022 10:30 EDT by SARAH MORALES RN Primary Insurance Authorization Authorization and Policy Numbers : Insurance 1 Health Plan: [facility] Policy Number: [id number] Authorization Number: Insurance Primary Name : [facility] - [id number] Authorization Status-Primary : Denied Reference Number-Primary : [id number] Authorized Service Begin Date-Primary : 04/08/2022 EDT Authorization Comments-Primary : Per KCranfill she did not receive a call to complete this p2p. Called back in & per Orville he can reschedule with a physician. Informed him that I would need to reach out to a diff physician as the one from yesterday is off service now. He stated I can call back in and reschedule. Historical Authorization Comments-Primary : Comment 1: Katie agreed to attempt p2p. Scheduled for 04/[address] William calling Katie (SARAH MORALES RN 04/09/2022 15:26) Comment 2: Message sent to Katie for p2p. She has agreed to attempt. (SARAH MORALES RN 04/09/2022 13:02) Comment 3: PER [employer] IP AUTH PENDED. CLINICAL FAXED VIA [email or web address] (Digna Kidd Rn-Utilization Review 04/09/2022 11:31) Comment 4: Denied per fax 04/08/22 @ [id number] no resoning noted. Placed in Denials 2021 folder. (Mallory Sanchez, Molasses Preparer 04/09/2022 09:43) SARAH MORALES RN - 04/11/2022 10:30 EDT Electronically signed by Sumaya [facility] Conversion Cooker Loader Cerner at 12/21/2022 4:59 PM CDT documented in this encounter Plan of Treatment Not on file documented as of this encounter Visit Diagnoses Not on filedocumented in this encounter
--- OUTSIDE RECORDS SUMMARY | 2025-02-21 13:40 | XMS_ITS | Encounter Summary ---
Author Organization [employer] Address [address] [place] [address] Care Team Providers Care Heel Sander Rubber Name Role Phone Unavailable Primary Care Provider Unavailabl e Encounter Details Date Type Department Care Team (Late st Contact Info) Description 04/23/2022 Transcribed Document [facility] [place] [address] [place] [address] ProviderFlorentino MD [address] [place] [address] Social History Tobacco Use Types Packs/Day Years Used Date Smoking Tobacco: Never Assessed Comments Unknown Sex and Gender Information Value Date Recorded Sex Assigned at Not on file Legal Sex Female 1:44 PM CDT Gender Identity Not on file Sexual Orientation Not on file documented as of this encounter Miscellaneous Notes * Cerner Conversion Note - Florentino Lynne MD - 04/23/2022 11:25 AM CDT Patient: ALYSSA AZUL Age: 61 years Sex: Female : 1960 Associated Diagnoses: None Author: CHICA RAZA MD-[facility] Subjective Chief complaint. 04/23/22 awake weak no fever Health Status Allergies: [...] mg, IV Push, Q6H, PRN: Hypertension insulin lispro 76 kg - 100 k [...] tablet: 1 Tab, Oral, BID, 0 Refill(s) metFORMIN 500 mg oral tablet: 2 Tab, Oral, BID, 60 Tab, 0 Refill(s) pravastatin 40 mg oral tablet: 1 Tab, Oral, At Bedtime, 0 Refill(s), Home Medications (13) Active acetaminophen 325 mg [...] 325 mg = 1 Tab, Oral, BID Lovaza 1000 mg oral capsule 2,000 mg [...] 1 Tab, Oral, At Bedtime , Medications (22) Active Scheduled: (8) docusate sodium 100 mg cap 100 mg 1 Cap, Oral, BID ferrous sulfate 325 mg EC tab 325 mg 1 Tab, Oral, BID heparin 5,000 units/1 mL inj 5,000 Units 1 mL, SubCutaneous, Q8H insulin lispro 1 unit/0.01 mL inj 76 [...] History of obstructive sleep apnea / IMO [id number] / Confirmed Diabetes / SNOMED CT [id number] / Confirmed, Active Problems (6) Chronic kidney disease (CKD), stage III (moderate) Diabetes History of obstructive sleep apnea Hyperlipidemia Hypertension Paraplegia Objective VS/Measurements Vitals Signs (last 24 hrs) Last Charted Minimum Maximum Temp 98.6 (APR 23 06:30) 97.3 (APR 23 03:00) H 100.1 (APR 22 22:00) Mon HR 96 (APR 23 08:46) 89 (APR 22 20:38) 100 (APR 22 22:00) Resp Rate 18 (APR 23 08:46) 16 (APR 22 20:38) H 24 (APR 23 00:57) SBP 133 (APR 23 06:30) 120 (APR 22 22:00) H 155 (APR 23 03:00) DBP 71 (APR 23 06:30) 71 (APR 23 06:30) 89 (APR 23 03:00) MAP 99 (APR 23:30) 90 (APR 22 22:00) 113 (APR 23 03:00) SpO2 95 (APR 23 08:46) L 93 (APR 22 20:38) 99 (APR 23 03:00) General: Alert and oriented, No acute distress. [...] 16. Paraplegia. 17. Bed-bound. 18. Hypertension. Disposition: home in am on IV abx DW CM time spent 33 min documented in this encounter Plan of Treatment Not on file documented as of this encounter Visit Diagnoses Not on filedocumented in this encounter
--- OUTSIDE RECORDS SUMMARY | 2025-02-21 13:40 | XMS_ITS | Encounter Summary ---
Author Organization [employer] Address [address] [place] [address] Care Team Providers Care Collections Specialist Name Role Phone Unavailable Primary Care Provider Unavailabl e Encounter Details Date Type Department Care Team (Late st Contact Info) Description 03/05/2022 Transcribed Document [facility] [place] Family Medicine [address] [place] [address] ProviderFlorentino MD [address] [place] [address] Social History Tobacco Use Types Packs/Day Years Used Date Smoking Tobacco: Never Assessed Comments Unknown Sex and Gender Information Value Date Recorded Sex Assigned at Not on file Legal Sex Female 1:44 PM CDT Gender Identity Not on file Sexual Orientation Not on file documented as of this encounter Miscellaneous Notes * Cerner Conversion Note - Historical ProviderMD - 03/05/2022 10:19 AM CDT Clinical Dietitian Note Entered On: 03/05/2022 10:19 EDT Performed On: 03/05/2022 10:19 EDT by Giovanna Zambrano Dietitimaria elena Clinical Dietitian Note Clinical Dietitian Note : 03/05: RD check on. Pt remains intubated and sedated. No pressors. Pt has been NPO x 4 days d/t daily SBTs and ? extubation. Spoke w/ pulmonary MD today, ok w/ placing corpak and starting TF. Currently w/ NGT. RD to place TF orders and notified RN. Still trying to extubate today per pulmonary. Pt w/ h/o trach and multiple intubations. +BM today. Drips: fentanyl Est Needs: 2617-5783 kcals (11-14 kcals/kg), ~100 g pro (>2 g pro/kg IBW) Dietitian Recommendations : 1. If unable to extubate, then rec placing corpak and intiating Vital HP at 20 ml/hr, AAT to goal @ 55 ml/hr (provides 1210 kcal and 106 g protein). FW per MD Goal: meet est needs 2. If extubated, then rec TRANSFER ENGINEER eval (Cardiac, 60 g CHO diet with ONS prn) Goal: safe swallow, intakes > 50% 3. Monitor e-lytes, replace prn (K low) Goal: WNLs 4. Monitor FSBS, adjust insulin prn Goal: glucose 140-180 5. Monitor wt 1x/week Goal: no significant wt loss Risk- High Giovanna Zambrano Dietitian - 03/05/2022 10:19 EDT Electronically signed by Sumaya, [facility] Conversion City Councilman Cerner at 12/21/2022 5:00 PM CDT documented in this encounter Plan of Treatment Not on file documented as of this encounter Visit Diagnoses Not on filedocumented in this encounter
--- OUTSIDE RECORDS SUMMARY | 2025-02-21 13:40 | XMS_ITS | Encounter Summary ---
Author Organization [employer] Address [address] [place] [address] Care Team Providers Care Rn Ed Name Role Phone Unavailable Primary Care Provider Unavailabl e Encounter Details Date Type Department Care Team (Late st Contact Info) Description 02/27/2022 Transcribed Document [facility] [place] Family Medicine [address] [place] [address] ProviderFlorentino MD [address] [place] [address] Social History Tobacco Use Types Packs/Day Years Used Date Smoking Tobacco: Never Assessed Comments Unknown Sex and Gender Information Value Date Recorded Sex Assigned at Not on file Legal Sex Female 1:44 PM CDT Gender Identity Not on file Sexual Orientation Not on file documented as of this encounter Miscellaneous Notes * Cerner Conversion Note - Florentino ProviderMD - 02/27/2022 5:00 AM CDT Chart Check - Review Order Profile Entered On: 02/27/2022 4:30 EDT Performed On: 02/27/2022 5:00 EDT by Bridgette Ribera RN-PATIENT CARE BEDSIDE NON-EXEMP Chart Check Powerplans Initiated/Discontinued as Appropriate : Yes All Active Orders Reviewed : Yes Bridgette Ribera RN-PATIENT CARE BEDSIDE NON-EXEMP - 02/27/2022 4:30 EDT documented in this encounter Plan of Treatment Not on file documented as of this encounter Visit Diagnoses Not on filedocumented in this encounter
--- OUTSIDE RECORDS SUMMARY | 2025-02-21 13:40 | XMS_ITS | Encounter Summary ---
Author Organization [employer] Address [address] [place] [address] Care Team Providers Care Compensation Intern Name Role Phone Unavailable Primary Care Provider Unavailabl e Encounter Details Date Type Department Care Team (Late st Contact Info) Description 02/26/[address] [facility] [place] Family Medicine [address] [place] [address] ProviderFlorentino MD [address] [place] [address] Social History Tobacco Use Types Packs/Day Years Used Date Smoking Tobacco: Never Assessed Comments Unknown Sex and Gender Information Value Date Recorded Sex Assigned at Not on file Legal Sex Female 1:44 PM CDT Gender Identity Not on file Sexual Orientation Not on file documented as of this encounter Miscellaneous Notes * Cerner Conversion Note - Historical ProviderMD - 02/26/2022 2:00 AM CDT Steamer Tender Details Entered On: 02/26/2022 3:51 EDT Performed On: 02/26/2022 2:00 EDT by Bridgette Ribera RN-PATIENT CARE [...]
--- OUTSIDE RECORDS SUMMARY | 2025-02-21 13:40 | XMS_ITS | Encounter Summary ---
Author Organization [employer] Address [address] [place] [address] Care Team Providers Care Director Of Regional Sales Name Role Phone Unavailable Primary Care Provider Unavailabl e Encounter Details Date Type Department Care Team (Late st Contact Info) Description 03/06/2022 Transcribed Document [facility] [place] [address] [place] [address] ProviderFlorentino MD [address] [place] [address] Social History Tobacco Use Types Packs/Day Years Used Date Smoking Tobacco: Never Assessed Comments Unknown Sex and Gender Information Value Date Recorded Sex Assigned at Not on file Legal Sex Female 1:44 PM CDT Gender Identity Not on file Sexual Orientation Not on file documented as of this encounter Miscellaneous Notes * Cerner Conversion Note - Historical ProviderMD - 03/06/2022 10:56 PM CDT Event Note Entered On: 03/06/2022 22:59 EDT Performed On: 03/06/2022 22:56 EDT by TRINIDAD LANDIS RN Event Note Event Date/Time : 03/06/2022 22:30 EDT Description of Event : NG tube removed and Corpak bridled, Abdominal xray done to verify placement after NG tube removed, preliminary report was Corpak was unchanged, will monitor for official results, TF held until report resulted TRINIDAD LANDIS RN - 03/06/2022 22:56 EDT documented in this encounter Plan of Treatment Not on file documented as of this encounter Visit Diagnoses Not on filedocumented in this encounter
--- OUTSIDE RECORDS SUMMARY | 2025-02-21 13:40 | XMS_ITS | Encounter Summary ---
Author Organization [employer] Address [address] [place] [address] Care Team Providers Care Medical Services Manager Name Role Phone Unavailable Primary Care Provider Unavailabl e Encounter Details Date Type Department Care Team (Late st Contact Info) Description 04/23/2022 Transcribed Document [facility] [place] Family Medicine [address] [place] [address] ProviderFlorentino MD [address] [place] [address] Social History Tobacco Use [...] Note - Florentino Lynne MD - 04/23/2022 3:50 PM CDT On Going Discharge Planning Entered On: 04/23/2022 16:05 EDT Performed On: 04/23/2022 15:50 EDT by Adalid Castro STRUCTURAL FITTER NON-EXEMPT Care Management Progress Note Discharge Arrangements : Patient Post-Acute Information Patient Name: ALYSSA AZUL Gender: Female : [birth year] Age: 61 Years No Post-Acute Placement(s) Listed No Post-Acute Service(s) Listed No Curaspan Referral(s) Listed Discharge Options Discussed with Patient : Home Health, half-way Barriers to Discharge Identified : Clinical Condition of Patient Barriers to Discharge Unresolved : Clinical Condition of Patient Patient Discharge Goal : Home health care Patient Offered Choice/Affiliations Explained : Yes Adalid Castro STRUCTURAL FITTER NON-EXEMPT - 04/23/2022 15:50 EDT Narrative Progress Note Narrative Progress Note : CM was unable to find services for pt Pt still declines [facility] LTACH offer to start percert Pt plans to go home with family Wound vac has now been changed to alex drain Son said he can transport pt to [facility] weekly for alex drain changes IV abx ends 2022 DC plan is home with family plus outpt follow up CM will continue to follow Historical Progress Note : Pt had DC order, but too many unresolved DC issues Pt declines offer for [facility] LTACH to start precert Pt wants to DC home with son Concern is finding HH Outpatient wound vac changes may be problem as son & DIL work during day [employer] referral made for IV abx HH may not be secured due to insurance & area Son lives in [place], [place] Pending issues: wound vac, IV abx & HH services CM will continue to follow Adalid Castro, STRUCTURAL FITTER NON-EXEMPT - 04/22/22 16:43:07 Cm spoke with patient and Daughter in [...] going to facility if it is in [place]. Cm faxed to [facility] per permission from family. CM will continue to follow. ERIK GALARZA, Bottle Blower-Ground Systems Engineer - 04/18/22 13:51:52 Patient has been declined by all HH agencies. CM spoke to patient is open to [facility] however, [facility] does not have an open bed and [...] CM will continue to follow. ERIK GALARZA, Bottle Blower-Ground Systems Engineer - 04/17/22 14:39:18 Patient requested CM speak with her daughter in law. Cm spoke with DIN who reported patient wants to discharge home with HH and DME. She will need a BSC for sure. If possible she would like to have a new CPAP as her's is old and needs replaced. Unsure of company name but maybe [employer]. Patient has all other DME. Patient does not have a preference of HH agency but wants it to be in area and with insurance. CM will continue to follow and set up DME and HH. ERIK GALARZA, Bottle Blower-Ground Systems Engineer - 04/16/22 15:45:27 home health referral made to a to assist with HH placement. very few HH agencies participate with pt's insurance so wound vac may need management at wound clinic. pt may have to do outpt PT is she delines snf-swing bed-ltach. TRISTAN TAYLOR, RN-Apple Picking Supervisor - 04/15/22 12:07:49 RRS HIGH, LOS 7, ELOS 5 Nantcj-prx-vin-ztvxnfjbmcgl-kndxtcdhloos-ocwagysdq acidosis HX paraplegia since age 8 L. trochanter-- 11.0cmx6.5cmx2.0cm-current with wound vac CRRT off since 04/11-- possible catheter removal 8.16 Tskuh3aqmbtgkeut-fjxdzafqi Pt was discharged to [facility] in 03.21. family refuses to return to [facility] and [facility] declined to accept back. Spoke with pt and she wishes to dc home with her son. She will need HH, PT for transfers as PLOF was independent, she will need wound vac and son will provide transportation. APS following: Aimee Payne, TRISTAN TAYLOR, RN-Apple Picking Supervisor - 04/15/22 11:57:48 HD# 3. elos: 5. rar: high acute hypoxic resp failure. severe sepsis: shock. campos/ckd. acute pancreatitis. diabetes. paraplegia. covid 19: negative 8-9. bipap 30%/ra. zyvox/merrem/micafungin iv. wound vac: left trochanter. corpak tube feeds. PT/OT: eob. ST: cleared for diet. no dialysis. APS following: Aimee Payne, . left message with updates. dcp: family decline return to [facility]. [facility]. sent [facility]. spoke with jesus alberto, admit coordintor. they hope she will improve to dc home with them in [place]. FREDO, son, legal next of kin: [phone] Divine, daughter in law: [phone] SHERIF PAYNE, RN-Apple Picking Supervisor - 04/14/22 10:45:05 HD# 3. elos: 5. rar: high acute hypoxic resp failure. severe sepsis: shock. campos/ckd. acute pancreatitis. diabetes. paraplegia. covid 19: negative 8-9. extubated 8. 02 4L nc. crrt. levophed gtt. bicarb gtt. zyvox/merrem/micafungin iv. wound vac: left trochanter. APS following: Aimee Kumar, . dcp: family decline return to [place]. they hope she will improve to dc home with them in [place]. not ltac candidate at this time due to crrt. FREDO, son, legal next of kin: [phone] Divine, daughter in law: [phone] SHERIF PAYNE, RN-Apple Picking Supervisor - 04/11/22 09:13:49 late entry for this am. Aimee Payne, aps social media project manager was on site this am. she spoke with Andrés, bedside rn, interviewed pt's son and spoke with Ms. azul who was awake on ventilator. she left number for claudia Groves, sound to call her at Yaneli's convenience. provided medical records as requested. SHERIF PAYNE, RN-Apple Picking Supervisor - 04/10/22 15:40:22 HD# 2. elos: 5. rar: high acute hypoxic resp failure. severe sepsis: shock. campos/ckd. acute pancreatitis. diabetes. paraplegia. covid 19: negative 8-9. following commads. mechanical ventilation. crrt. fentanyl gtt. insulin gtt. levophed gtt. evaluation Dr Abraham, him tech. see her notes. no vaginal laceration. return call from Gayathri Pimentel, . she contacted lorrie Cohen for [facility] with family concerns. [phone]. APS accepted case: [id number]. dcp: family decline return to [facility]. they hope she will improve to dc home with them in [place]. spoke with Monique Groves PA, edi attending. Andrés bedside RN. SHERIF PAYNE, RN-Apple Picking Supervisor - 04/10/22 09:41:02 received email from aps. they have accepted & will assign to social media project manager. SHERIF PAYNE, RN-Apple Picking Supervisor - 04/09/22 15:19:44 APS reported filed. [id number]. spoke with clover Bowen rn, Amber, equal opportunity representative & Mary, fish housekeeper. SHERIF PAYNE, RN-Apple Picking Supervisor - 04/09/22 12:07:07 Adalid Castro, STRUCTURAL FITTER NON-EXEMPT - 04/23/2022 15:50 EDT documented in this encounter Plan of Treatment Not on file documented as of this encounter Visit Diagnoses Not on filedocumented in this encounter
--- OUTSIDE RECORDS SUMMARY | 2025-02-21 13:40 | XMS_ITS | Encounter Summary ---
Author Organization [employer] Address [address] [place] [address] Care Team Providers Care Spinning Frame Tender Name Role Phone Unavailable Primary Care Provider Unavailabl e Encounter Details Date Type Department Care Team (Late st Contact Info) Description 03/05/2022 Transcribed Document [facility] [place] Family Medicine [address] [place] [address] ProviderFlorentino MD [address] [place], [place] [id number] Social History Tobacco Use Types Packs/Day Years Used Date Smoking Tobacco: Never Assessed Comments Unknown Sex and Gender Information Value Date Recorded Sex Assigned at Not on file Legal Sex Female 1:44 PM CDT Gender Identity Not on file Sexual Orientation Not on file documented as of this encounter Miscellaneous Notes * Cerner Conversion Note - Historical ProviderMD - 03/05/2022 2:21 PM CDT Admission Coordinator Note Entered On: 03/05/2022 14:22 EDT Performed On: 03/05/2022 14:21 EDT by Matilde Lemus Clinical Assessment Liaison Admission Coordinator Note Admission Coordinator Note : Received referral for LTACH evaluation. Chart reviewed. Will continue to monitor. Thank you for the referral. Matilde Lemus Clinical Assessment Liaison - 03/05/2022 14:21 EDT documented in this encounter Plan of Treatment Not on file documented as of this encounter Visit Diagnoses Not on filedocumented in this encounter
--- OUTSIDE RECORDS SUMMARY | 2025-02-21 13:40 | XMS_ITS | Encounter Summary ---
Author Organization [employer] Address [address] [place] [address] Care Team Providers Care Buncher Operator Name Role Phone Unavailable Primary Care Provider Unavailabl e Encounter Details Date Type Department Care Team (Late st Contact Info) Description 04/23/2022 Transcribed Document [facility] [place] Family Medicine [address] [place] [address] ProviderFlorentino MD [address] [place] [address] Social History Tobacco Use Types Packs/Day Years Used Date Smoking Tobacco: Never Assessed Comments Unknown Sex and Gender Information Value Date Recorded Sex Assigned at Not on file Legal Sex Female 1:44 PM CDT Gender Identity Not on file Sexual Orientation Not on file documented as of this encounter Miscellaneous Notes * Cerner Conversion Note - Florentino Lynne MD - 04/23/2022 9:00 PM CDT Patient: ALYSSA AZUL Age: 61 years Sex: Female : 1960 Associated Diagnoses: None Author: HIGINIO AREVALO MD-INF Antibiotics: meropenem CC: Sacral wound Subjective: Patient with low-grade fever last night and elevated HR and elevated BP. Objective: Vitals Signs (last 24 hrs) Last Charted Minimum Maximum Temp 99.3 (APR 23 15:37) 97.3 (APR 23 03:00) H 100.1 (APR 22 22:00) Mon HR 75 (APR 23 20:00) 75 (APR 23 20:00) 108 (APR 23 10:28) Resp Rate 18 (APR 23 10:28) 17 (APR 22 22:00) H 24 (APR 23 00:57) SBP H 163 (APR 23 15:37) 95 (APR 23 10:28) H 163 (APR 23 15:37) DBP H 93 (APR 23 15:37) L 57 (APR 23 10:28) H 93 (APR 23 15:37) MAP 127 (APR 23 15:37) 73 (APR 23 10:28) 127 (APR 23 15:37) SpO2 95 (APR 23 20:00) L 93 (APR 22 22:00) 99 (APR 23 03:00) PE: General: alert, oriented x3 HEENT: sclera [...] LABS: Labs (Last four charted values) WBC 4.9 (APR 22) L 4.3 (APR 21) L 4.1 (APR 20) L 3.2 (APR 19) HB L 8.3 (APR 22) L 8.8 (APR 21) L 8.1 (APR 20) L 9.0 (APR 19) HCT L 26.3 (APR 22) L 27.7 (APR 21) L 25.4 (APR 20) L 27.5 (APR 19) Plt L 124 (APR 22) L 114 (APR 21) L 88 (APR 20) L 85 (APR 19) Na 142 (APR 22) 140 (APR 21) 141 (APR 20) 140 (APR 19) K 4.4 (APR 22) 4.4 (APR 21) 4.2 (APR 20) 4.4 (APR 19) Cl 111 (APR 22) 109 (APR 21) 109 (APR 20) 109 (APR 19) CO2 27 (APR 22) 27 (APR 21) 28 (APR 20) 28 (APR 19) BUN H 23 (APR 22) 22 (APR 21) 21 (APR 20) 21 (APR 19) Cr H 1.20 (APR 22) H 1.30 (APR 21) H 1.30 (APR 20) H 1.20 (APR 19) Glu R L 53 (APR 22) 76 (APR 21) L 56 (APR 20) 74 (APR 19) Ca 9.1 (APR 22) 8.9 (APR 21) L 8.1 (APR 20) L 7.9 (APR 19) Lactic 1.0 (APR 14) 1.7 (APR 13) 0.7 (APR 12) 0.6 (APR 10) PT 11.1 (APR 09) 10.5 (APR 08) INR 1.0 (APR 09) 1.0 (APR 08) AST 20 (APR 22) 15 (APR 15) 13 (APR 14) 15 (APR 13) ALT 22 (APR 22) 16 (APR 15) 15 (APR 14) 16 (APR 13) ALK P 55 (APR 22) 59 (APR 15) 60 (APR 14) 64 (APR 13) T Bili 0.5 (APR 22) 0.4 (APR 15) 0.3 (APR 14) 0.3 (APR 13) PTN L 6.2 (APR 22) L 5.7 (APR 15) L 5.0 (APR 14) L 5.3 (APR 13) ALB L 2.2 (APR 22) L 2.2 (APR 15) L 2.0 (APR 14) L 2.1 (APR 13) Lipase H 919 (APR 11) H 638 [...] alert fevers resolved and no crrt and diploma medical assistant stable. Platelets are stable continue on broad-spectrum coverage with improvement with Zosyn micafungin and meropenem White blood cell count down no fevers creatinine stable at 1.5 with CRP coming down we will begin de-escalation of antibiotics DC linezolid is now completed course of therapy and will need meropenem through 2022 to complete therapy Stable continue meropenem with some low-grade fever but overall stable normal white blood cell count and CRP down, TCP improving. RECOMMENDATIONS/PLANS: -Continue meropenem at current dose through 2022 to complete therapy -Looking for placement documented in this encounter Plan of Treatment Not on file documented as of this encounter Visit Diagnoses Not on filedocumented in this encounter
--- OUTSIDE RECORDS SUMMARY | 2025-02-21 13:40 | XMS_ITS | Encounter Summary ---
Author Organization [employer] Address [address] [place] [address] Care Team Providers Care Women'S Garment Fitter Name Role Phone Unavailable Primary Care Provider Unavailabl e Encounter Details Date Type Department Care Team (Late st Contact Info) Description 04/23/2022 Transcribed Document [facility] [place] [facility] [place] [address] ProviderFlorentino MD [address] [place] [address] Social History Tobacco Use Types [...] - Florentino Lynne MD - 04/23/2022 9:00 AM CDT WOCN Inpatient Documentation Entered On: 04/23/2022 11:23 EDT Performed On: 04/23/2022 9:30 EDT by Edwina Fraire [id number] Therapy WOCN Admission Date : Admit Date 04/08/2022 07:[address] : Diagnosis (11) Altered mental status Unspecified fall, initial encounter Altered mental status, unspecified Sepsis, unspecified organism Urinary tract infection, site not specified Acute kidney failure, unspecified Hyperkalemia Acute pancreatitis without necrosis or infection, unspecified Acidosis Sepsis, unspecified organism Sepsis, unspecified organism Reason for WOCN Visit : Initial consult, Dressing change Admitting Diagnosis ST : Reason for Admission sepsis, UTI, ARF, hyperkalemia, pancreatitis, meta WOCN Assessment Summary : Wound care steam flattener consulted to manage NPWT. Wound care steam flattener at bedside parient on HENRIETTA surface. Wound care steam flattener removed dressing and cleansed wound bed with saline wound wash, pat dry and prepped periwound skin with barrier film and placed medihoney and collagen to fill open space and then placed AKANKSHA to left trochanter and draped. If any chnages to skin integrity please consult wound care dept. Edwina Fraire [id number] Therapy - 04/23/2022 11:20 EDT Electronically signed by Sumaya [facility] Conversion Lithopress Operator Cerner at 12/21/2022 5:11 PM CDT documented in this encounter Plan of Treatment Not on file documented as of this encounter Visit Diagnoses Not on filedocumented in this encounter
--- OUTSIDE RECORDS SUMMARY | 2025-02-21 13:40 | XMS_ITS | Encounter Summary ---
Author Organization [employer] Address [address] [place] [address] Care Team Providers Care Operating System Designer Name Role Phone Unavailable Primary Care Provider Unavailabl e Encounter Details Date Type Department Care Team (Late st Contact Info) Description 02/26/2022 Transcribed Document [facility] [place] Family Medicine [facility] [place] [address] ProviderFlorentino MD [facility] [place] [address] Social History Tobacco Use Types Packs/Day Years Used Date Smoking Tobacco: Never Assessed Comments Unknown Sex and Gender Information Value Date Recorded Sex Assigned at Not on file Legal Sex Female 1:44 PM CDT Gender Identity Not on file Sexual Orientation Not on file documented as of this encounter Miscellaneous Notes * Cerner Conversion Note - Historical ProviderMD - 02/26/2022 12:36 PM CDT Treatment Intervention, OT Entered On: 02/27/2022 15:26 EDT Performed On: 02/27/2022 15:22 EDT by ZAYRA FLEMING OTR/L General Information, OT Visit Type, OT : Treatment Note Patient Orders : Order Date Order Ordering 02/22/2022 10:11 OT Evaluation and Treatment Ordered By: JOHN WOODS MD-PUL 02/26/2022 08:22 Consult to Occupational Therapy Ordered By: LUIS ANGEL CUNNINGHAM DO 02/26/2022 12:36 OT Additional Treatment Ordered By: Active Diagnoses : 02/22/2022 06:53 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 02/22/2022 06:52 Acute kidney failure, unspecified 02/22/2022 06:52 Cardiac arrest, cause unspecified 02/22/2022 06:52 Pneumonia, unspecified organism 02/22/2022 06:52 Severe sepsis with septic shock Therapy Diagnosis, OT : generalized weakness Admission Date : 02/22/2022 00:01 Personal Devices : Personal Devices No Devices Recorded Assistive Devices : Assistive Devices No Devices Recorded ZAYRA FLEMING OTR/[place] - 02/27/2022 15:22 EDT General Status Patient Received Status : Supine in bed, Other: on Cpap, tele Treatment Start Time : 02/27/2022 14:50 EDT Patient Left Status : Supine in bed, RN/PCT informed, All needs met and within reach, Other: on C Pap, telegraph lineman/PCT Informed Comment : RN ok'd to tx, ID and verified Treatment End Time : 02/27/2022 14:59 EDT Treatment Time : 9 Minute(s) ZAYRA FLEMING OTR/[place] - 02/27/2022 15:22 EDT Education OT Occupational Therapy Education Grid Home Program/Exercises : Returns demonstration ZAYRA FLEMING OTR/[place] - 02/27/2022 15:22 EDT Plan of Care, OT OT Tx Plan/Goals Established w Patient : Yes ZAYRA FLEMING OTR/[place] - 02/27/2022 15:22 EDT Operational Trainer Goals, OT Other LTG Grid Goal #1 Goal #2 Goal #3 Goal : Client will complete program for UE strengthening with verbal cues Client will complete transfers supine to sit edge of bed in preparation for transfers to w/c with mod A Client will compelte transfers bed to wheelchair with min A Date to Meet : 03/12/2022 EDT 03/12/2022 EDT 03/12/2022 EDT Goal Status : Progressing, continue Initial goal Initial goal ZAYRA FLEMING OTR/[place] - 02/27/2022 15:22 EDT ZAYRA FLEMING OTR/[place] - 02/27/2022 15:22 EDT ZAYRA FLEMING OTR/[place] - 02/27/2022 15:22 EDT Treatment Note Subjective Comment : pt agrees to tx though reports feeling fatigued Patient's Response to Treatment : pt now out of ICU on tele floor. Additional Objective Information : pt supine in bed and was placed back on her Cpap per pt due to fatigue however agreeable to UB ther ex. using green theraband pt completes 10 reps shoulder flexion/abduction, elbow curls using objects in room to give resistance. pt assisted with tray setup to reach all necessary items. pt left with all needs in place Assessment : pt fatigued today stating I'm tired . pt to benefit from continued OT while inpt Plan for Treatment : continue POC ZAYRA FLEMING OTR/L - 02/27/2022 15:22 EDT Pain Assessment Pain Scaled Used : 0-10 Pain scale Pain Score Pre-Intervention : 0 ZAYRA FLEMING OTR/[place] - 02/27/2022 15:22 EDT Image 1 - Images currently included in the form version of this document have not been included in the text rendition version of the form. [facility] OT Charges OT Therapeutic Exercise Ea 15Min : 1 ZAYRA FLEMING OTR/[place] - 02/27/2022 15:22 EDT documented in this encounter Plan of Treatment Not on file documented as of this encounter Visit Diagnoses Not on filedocumented in this encounter
--- OUTSIDE RECORDS SUMMARY | 2025-02-21 13:40 | XMS_ITS | Encounter Summary ---
Author Organization [employer] Address [address] [place] [address] Care Team Providers Care Legal Support Assistant Name Role Phone Unavailable Primary Care Provider Unavailabl e Encounter Details Date Type Department Care Team (Late st Contact Info) Description 05/02/2022 Transcribed Document [facility] Radiology [address] [place] [address] Melinda Sherwood MD [address] [place] [address] [address] Social History Tobacco Use Types Packs/Day Years Used Date Smoking Tobacco: Never Assessed Comments Unknown Sex and Gender Information Value Date Recorded Sex Assigned at Not on file Legal Sex Female 1:44 PM CDT Gender Identity Not on file Sexual Orientation Not on file documented as of this encounter Miscellaneous Notes * Cerner Conversion Note - Melinda Sherwood MD - 05/02/2022 11:14 AM EDT Patient: ALYSSA AZUL Age: 62 years Sex: Female : 1960 Associated Diagnoses: None Author: MELINDA SHERWOOD MD-INT Subjective Patient feeling better today. Review of Systems Constitutional: Weakness, Fatigue, No [...] Documented Current medications: (Selected) Inpatient Medications Ordered Betadine 10% topical solution: 1 Application, Topical, BID Betadine 10% topical solution: 1 Application, Topical, BID Betadine 10% topical solution: 1 Application, Topical, BID Dextrose 50% injection: 12.5 Gram, IV Push, Q15Min, PRN: Other (See Comment) Dextrose 50% injection: 25 Gram, IV Push, Q15Min, PRN: Other (See Comment) Dextrose 50% injection: 25 Gram, IV Push, Q15Min, PRN: Other (See Comment) Dextrose 50% injection: 25 Gram, IV Push, Q15Min, PRN: Other (See Comment) Fish Oil: 2,000 mg, Oral, BID Afia-Q: 1 Cap, Oral, BID [place] 5 mg-325 mg oral tablet: 1 Tab, Oral, Q6H, PRN: Pain (Moderate 4-6) PRAVAstatin: 40 mg, Oral, At Bedtime Pepcid: 20 mg, Oral, At Bedtime Vitamin C: 500 mg, Oral, BID acetaminophen: 650 mg, Oral, Q6H, PRN: Pain (Mild 1-3) cefepime + Sodium Chloride 0.9% intravenous solution 50 mL: 1 Gram, 100 mL/Hr, IV Piggyback, [id number] ferrous sulfate: 325 mg, Oral, TID With Meals glucagon: 1 mg, IntraMuscular, Q15Min, PRN: Other (See Comment) glucose 4 g oral tablet, chewable: 16 Gram, 4 Tab, Chew, Q15Min, PRN: Other (See Comment) glucose 40% oral gel: 15 Gram, 37.5 mL, Oral, Q15Min, PRN: Other (See Comment) heparin: 5,000 Units, SubCutaneous, Q8HInt insulin lispro sliding scale: Scale A:, SubCutaneous, AC and at Bedtime linezolid: 600 mg, Oral, Q12H micafungin: 100 mg, 100 mL/Hr, IV Piggyback, [id number] sodium bicarbonate injection 150 mEq + Dextrose 5% in Water intravenous solution 1,000 mL: 75 mL/Hr, IntraVENous Documented Medications Documented Farxiga 10 mg oral [...] Tab, Oral, At Bedtime, 0 Refill(s), Medications (24) Active Scheduled: (14) ascorbic acid 500 mg tab 500 mg 1 Tab, Oral, BID cefEPIME + NaCl 0.9% 50 mL 1 Gram, IV Piggyback, [id number] famotidine 20 mg tab 20 mg 1 Tab, Oral, At Bedtime ferrous sulfate 325 mg EC tab 325 mg 1 Tab, Oral, TID With Meals heparin 5,000 units/1 mL inj 5,000 Units 1 mL, SubCutaneous, Q8HInt insulin lispro 1 unit/0.01 mL inj Scale A:, SubCutaneous, AC and at Bedtime lactobacillus acidophilus cap 1 Cap, Oral, BID linezolid 600 mg tab 600 mg 1 Tab, Oral, Q12H micafungin sodium 100 mg, IV Piggyback, [id number] omega-3 fish oil 1,000 mg cap 2,000 mg 2 Cap, Oral, BID povidone iodine 10% liq 15 mL 1 Application, Topical, BID povidone iodine 10% liq 15 mL 1 Application, Topical, BID povidone iodine 10% liq 15 mL 1 Application, Topical, BID PRAVAstatin sodium 20 mg tab 40 mg 2 Tab, Oral, At Bedtime Continuous: (1) sodium bicarbonate 150 mEq + Dextrose 5% in Water 1,000 mL 1,000 mL, IntraVENous, 75 mL/Hr PRN: (9) acetaminophen 325 mg tab [...] Problem list: Medical Diabetes / SNOMED CT 575082594 / Confirmed History of obstructive sleep apnea / IMO [id number] / Confirmed, Active Problems (6) Chronic kidney disease (CKD), stage III (moderate) Diabetes History of obstructive sleep apnea Hyperlipidemia Hypertension Paraplegia Objective VS/Measurements Vitals Signs (last 24 hrs) Last Charted Minimum Maximum Temp 98.6 (MAY 02 05:33) 98.6 (MAY 02 05:33) 99.1 (MAY 01 19:56) Mon HR 92 (MAY 02 09:42) 81 (MAY 02 05:33) 94 (MAY 01 17:25) Resp Rate 17 (MAY 02 05:33) 16 (MAY 01 17:25) 18 (MAY 01 14:02) SBP H 147 (MAY 02 09:42) 140 (MAY 01 19:56) H 179 (MAY 02 05:33) DBP 78 (MAY 02 09:42) 72 (MAY 02 01:41) H 95 (MAY 02 05:33) MAP 93 (MAY 02 09:42) 90 (MAY 02 01:41) 128 (MAY 01 17:25) SpO2 95 (MAY 02 09:42) L 93 (MAY 01 19:56) 99 (MAY 01 22:00) General: Alert and oriented, No acute distress. Eye: Pupils are equal, round and reactive to light, Extraocular movements are intact, Normal conjunctiva. HENT: Normocephalic. Neck: Supple, Non-tender. Respiratory: Lungs are clear to auscultation, Breath sounds are equal. Cardiovascular: Normal rate, Regular rhythm. Gastrointestinal: Soft, Non-tender. Genitourinary: Urostomy bag in place. Musculoskeletal: Paraplegic. Integumentary: Warm, Large decubital ulcer stage IV. Neurologic: Alert, Oriented, Paraplegic. Psychiatric: Cooperative, Appropriate mood & affect. Review / Management MAY 02 04:40 136 H 117 H 28 / H 139 4.8 L 16 H 1.10 \ MAY 02 04:40 \ L 8.2 / L 4.3 317 / L 26.4 \ No Radiology Results Found Results review: Labs (Last four charted values) WBC L 4.3 (MAY 02) L 4.4 (MAY 01) 4.6 (APR 30) 7.2 (APR 28) HB L 8.2 (MAY 02) L 7.6 (MAY 01) L 7.9 (APR 30) L 9.2 (APR 28) HCT L 26.4 (MAY 02) L 24.6 (MAY 01) L 25.4 (APR 30) L 29.1 (APR 28) Plt 317 (MAY 02) 357 (MAY 01) 354 (APR 30) 265 (APR 29) Na 136 (MAY 02) 140 (MAY 01) 140 (APR 30) 137 (APR 28) K 4.8 (MAY 02) 4.5 (MAY 01) 4.4 (APR 30) 4.8 (APR 28) Cl H 117 (MAY 02) H 116 (MAY 01) H 116 (APR 30) 107 (APR 28) CO2 L 16 (MAY 02) 21 (MAY 01) L 15 (APR 30) 22 (APR 28) BUN H 28 (MAY 02) 22 (MAY 01) 21 (APR 30) H 41 (APR 28) Cr H 1.10 (MAY 02) 1.00 (MAY 01) H 1.07 (APR 30) H 1.92 (APR 28) Glu R H 139 (MAY 02) H 158 (MAY 01) H 137 (APR 30) H 179 (APR 28) Ca 8.8 (MAY 02) 8.6 (MAY 01) L 8.2 (APR 30) 8.9 (APR 28) Lactic 0.7 (APR 29) C 5.2 (APR 28) PT 9.9 (APR 28) INR 0.9 (APR 28) AST 18 (APR 28) ALT 26 (APR 28) ALK P 73 (APR 28) T Bili 0.8 (APR 28) PTN 7.7 (APR 28) ALB L 2.7 (APR 28) . Medication Changes from Previous Midnight to Current New Medications: ferrous sulfate 325 mg, Oral, EC Tab, TID With Meals, Routine, Start 05/01/22 11:30:00 EDT, 05/01/22 9:10:00 EDT MELINDA SHERWOOD MD-INT linezolid 600 mg, Oral, Tab, Q12H, order duration: 7 Day(s), Routine, Start 05/01/22 21:00:00 EDT, Stop 05/08/22 9:00:00 EDT, Indication: Sepsis HIGINIO AREVALO MD-INF sodium bicarbonate 150 mEq + Dextrose 5% in Water intravenous solution 1,000 mL (sodium bicarbonate injection 150 mEq + Dextrose 5% in Water intravenous solution 1,000 mL) 1,000 mL, Bag Volume (mL) = 1,150, IntraVENous, Rate = 75 mL/Hr, start date 05/02/22 10:43:00 EDT, Routine, 1.94, m2 MELINDA SHERWOOD MD-INT Discontinued Medications: ferrous sulfate 325 mg, Oral, EC Tab, BID, Start 04/29/22 11:39:00 EDT MELINDA SHERWOOD MD-INT linezolid (Zyvox) 600 mg, IV Piggyback, Inj, [id number], infuse over 1 Hour(s), Routine, Start 04/29/22 17:00:00 EDT, 300 mL/Hr, Indication: Sepsis HIGINIO AREVALO MD-INF Sodium Chloride 0.9% intravenous solution 1,000 mL 1,000 mL, Bag Volume (mL) = 1,000, IntraVENous, Rate = 100 mL/Hr, start date 04/29/22 1:32:00 EDT, Routine, 1.94, m2 MELINDA SHERWOOD MD-INT Impression and Plan Sepsis presented on admission. Hypotension and lactic acidosis. Likely due to recurrent urinary tract infection. Follow-up cultures Continue broad-spectrum IV antibiotics. ID consulted. Recurrent urinary tract infection. Recently admitted with septic shock due to Pseudomonas and E. coli UTI Appreciate ID recommendations. Started on cefepime, Zyvox and IV micafungin Tunneled none hemodialysis catheter. Discussed with nephrology. Patient agreeable Acute on chronic kidney failure. Metabolic acidosis Gentle hydration. Recently started on CRRT/dialysis Avoid nephrotoxic medications. Start sodium bicarbonate drip Large decubitus ulcer presented on admission. Continue broad-spectrum IV antibiotics. Daily dressing. Wound care consult. Diabetes mellitus Initiate basal bolus insulin protocol. Worsening anemia. Likely anemia of chronic disease iron studies noted Paraplegia. Chronic pain Physical therapy evaluation. GI [...]
--- OUTSIDE RECORDS SUMMARY | 2025-02-21 13:40 | XMS_ITS | Encounter Summary ---
Author Organization [employer] Address [address] [place] [address] Care Team Providers Care Framing Mill Supervisor Name Role Phone Unavailable Primary Care Provider Unavailabl e Encounter Details Date Type Department Care Team (Late st Contact Info) Description 02/26/2022 Transcribed Document [facility] [place] [address] [place] [address] ProviderFlorentino MD [address] [place] [address] Social History Tobacco Use Types Packs/Day Years Used Date Smoking Tobacco: Never Assessed Comments Unknown Sex and Gender Information Value Date Recorded Sex Assigned at Not on file Legal Sex Female 1:44 PM CDT Gender Identity Not on file Sexual Orientation Not on file documented as of this encounter Miscellaneous Notes * Cerner Conversion Note - Florentino ProviderMD - 02/26/2022 9:21 AM CDT Clinical Dietitian Note Entered On: 02/26/2022 9:21 EDT Performed On: 02/26/2022 9:21 EDT by Elisa Onofre Non Emp Dietitian Clinical Dietitian Note Clinical Dietitian Note : 02/26: check-on. Pt discussed during MDR, EN held yesterday for extubation, was never resumed per nsg. NGT remains in place. BOILER OR ENGINE OPERATOR eval ordered for today. Dietitian Recommendations: 1. Rec swallow eval prior to initiating PO diet. Rec 60g CHO diet, defer textures and consistencies to BOILER OR ENGINE OPERATOR. RD to monitor for need and acceptance of ONS at f/up if pt on diet Goal: safe swallow 2. Continue EN until pt passes BOILER OR ENGINE OPERATOR eval, resume Vital HP @20 mL/hr, advance 10 mL/hr q 4-6 hrs to goal @55 mL/hr (provides 1210 kcals, 106 g pro). FW per MD Goal: meet est needs 3. Monitor BG, adjust insulin PRN Goal: 110-140 mg/dL 4. Weigh pt 1-2x/wk Goal: no significant changes in wt Nutritional risk: High Elisa Onofre Non Emp Dietitian - 02/26/2022 9:21 EDT Electronically signed by Sumaya [facility] Conversion [employer]tering Filament Machine Operator Cerner at 12/21/2022 5:06 PM CDT documented in this encounter Plan of Treatment Not on file documented as of this encounter Visit Diagnoses Not on filedocumented in this encounter
--- OUTSIDE RECORDS SUMMARY | 2025-02-21 13:40 | XMS_ITS | Encounter Summary ---
Author Organization [employer] Address [address] [place] [address] Care Team Providers Care Lab Technologist Name Role Phone Unavailable Primary Care Provider Unavailabl e Encounter Details Date Type Department Care Team (Late st Contact Info) Description 03/05/2022 Transcribed Document [facility] [place] [address] [place] [address] ProviderFlorentino MD [address] [place] [address] Social History Tobacco Use Types Packs/Day Years Used Date Smoking Tobacco: Never Assessed Comments Unknown Sex and Gender Information Value Date Recorded Sex Assigned at Not on file Legal Sex Female 1:44 PM CDT Gender Identity Not on file Sexual Orientation Not on file documented as of this encounter Miscellaneous Notes * Cerner Conversion Note - Florentino ProviderMD - 03/05/2022 5:00 PM CDT Chart Check - Review Order Profile Entered On: 03/05/2022 17:22 EDT Performed On: 03/05/2022 17:00 EDT by Colette Dowling RN-PATIENT CARE BEDSIDE NON-EXEMPT Chart Check All Active Orders Reviewed : Yes Colette Dowling RN-PATIENT CARE BEDSIDE NON-EXEMPT - 03/05/2022 17:22 EDT documented in this encounter Plan of Treatment Not on file documented as of this encounter Visit Diagnoses Not on filedocumented in this encounter
--- OUTSIDE RECORDS SUMMARY | 2025-02-21 13:40 | XMS_ITS | Encounter Summary ---
Author Organization [facility] Address [address] [place] [address] Care Team Providers Care Pattern Duplicator Name Role Phone Unavailable Primary Care Provider Unavailabl e Encounter Details Date Type Department Care Team (Late st Contact Info) Description 05/02/2022 Transcribed Document [facility] [place] Family Medicine [address] [place] [address] ProviderFlorentino MD [address] [place] [address] Social History Tobacco Use Types Packs/Day Years Used Date Smoking Tobacco: Never Assessed Comments Unknown Sex and Gender Information Value Date Recorded Sex Assigned at Not on file Legal Sex Female 1:44 PM CDT Gender Identity Not on file Sexual Orientation Not on file documented as of this encounter Miscellaneous Notes * Cerner Conversion Note - Florentino Lynne MD - 05/02/2022 1:42 PM CDT UM Authorization Entered On: 05/02/2022 13:47 EDT Performed On: 05/02/2022 13:42 EDT by SARAH MORALES RN Primary Insurance Authorization Authorization and Policy Numbers : Insurance 1 Health Plan: [facility] Policy Number: [id number] Authorization Number: SEE NOTES Insurance Primary Name : [facility] - [id number] Authorization Status-Primary : Admit approved Auth/Referral Contact Name-Primary : DC+ Reference Number-Primary : [id number]--[place] Medicaid #[id number] Number of Days Authorized-Primary : 13 Day(s) Authorized Service Begin Date-Primary : 04/08/2022 EDT Authorized Service End Date-Primary : 04/21/2022 EDT Historical Authorization Comments-Primary : Comment 1: Discharge summary faxed. (Mallory Sanchez, Sheep Or Calf Grader 2022 14:24) Comment 2: Faxed c/s 04/25 via [employer]. (SARAH MORALES RN 04/25/2022 14:19) Comment 3: PER JOAQUIN @ [facility] THE MANAGERS ARE REQUESTING CLINICAL UPDATE THEY FEEL THEY WILL BE RESPONSIBLE FOR THIS BILL (Digna Kidd, Rn-Utilization Review 04/24/2022 14:50) Comment 4: Information,verified by placing a call to [place] Medicaid. Per the sales representative rural power spoken to, Keila Lassiter, the care provided to this patient will be technically denied due to late notification,since the patient was admitted on 04/08/2022 and coverage with [place] Medicaid, was initiated on 03/20/2022. She further stated that the reference number provided (#[id number]) is not for billing purpose ([address], [...] 2021 file and placed in tray on beatlab desk (SHERIF LYNCH, Ball Point Splitter 04/16/2022 09:42) Comment 7: Per fax received 04/16 @ 0914am approved after p2p completed. Approved 04/08-04/21 NRD 04/22 (SARAH MORALES RN 04/16/2022 09:32) Comment 8: CLINICAL UPDATE FAXED VIA [employer] 04/11-04/15 ([address], PRIMO 04/15/2022 16:00) Comment 9: Per call to [facility] p2p line Luisa stated p2p took place yestereday 04/14 and denial was OT/approved. Luisa did not have any idea regarding when c/s would be due. VM left for rate reviewer Sharon. (SARAH MORALES RN 04/15/2022 12:15) Comment [...] AVAILITY IP AUTH PENDED. CLINICAL FAXED VIA [employer] (Digna Kidd Rn-Utilization Review 04/09/2022 11:31) Comment 15: Denied per fax 04/08/22 @ 1635 no resoning noted. Placed in Denials 2021 folder. (Mallory Sanchez, Sheep Or Calf Grader 04/09/2022 09:43) SARAH MORALES RN - 05/02/2022 13:42 EDT Electronically signed by Bruce Shell Conversion Logistics Loss Prevention Manager Cerner at 12/21/2022 5:07 PM CDT documented in this encounter Plan of Treatment Not on file documented as of this encounter Visit Diagnoses Not on filedocumented in this encounter
--- OUTSIDE RECORDS SUMMARY | 2025-02-21 13:40 | XMS_ITS | Encounter Summary ---
Author Organization [employer] In [facility] Address [address] [place] [address] Care Team Providers Care Cone Machine Feeder Name Role Phone Unavailable Primary Care Provider Unavailabl e Encounter Details Date Type Department Care Team (Late st Contact Info) Description 02/26/2022 Transcribed Document [facility] [place] Family Medicine [address] [place] [address] ProviderFlorentino MD [address] [place] [address] Social History Tobacco Use Types Packs/Day Years Used Date Smoking Tobacco: Never Assessed Comments Unknown Sex and Gender Information Value Date Recorded Sex Assigned at Not on file Legal Sex Female 1:44 PM CDT Gender Identity Not on file Sexual Orientation Not on file documented as of this encounter Miscellaneous Notes * Cerner Conversion Note - Florentino ProviderMD - 02/26/2022 11:07 AM CDT NUTRITIONISTS Attempt to Treat Entered On: 02/26/2022 11:07 EDT Performed On: 02/26/2022 11:07 EDT by NICO WOODSON Speech Language Pathologist Attempt to Treat Inability to Treat Comment : Patient in session with OT. Will check back later today. Notification : NICO NGO Speech Language Pathologist - 02/26/2022 11:07 EDT documented in this encounter Plan of Treatment Not on file documented as of this encounter Visit Diagnoses Not on filedocumented in this encounter
--- OUTSIDE RECORDS SUMMARY | 2025-02-21 13:40 | XMS_ITS | Encounter Summary ---
Author Organization [facility] Address [address] [place] [address] Care Team Providers Care Chain Hoist Operator Name Role Phone Unavailable Primary Care Provider Unavailabl e Encounter Details Date Type Department Care Team (Late st Contact Info) Description 03/05/2022 Transcribed Document [facility] [place] Family Medicine [facility] [address] ProviderFlorentino MD [address] [place] [address] Social History Tobacco Use Types Packs/Day Years Used Date Smoking Tobacco: Never Assessed Comments Unknown Sex and Gender Information Value Date Recorded Sex Assigned at Not on file Legal Sex Female 1:44 PM CDT Gender Identity Not on file Sexual Orientation Not on file documented as of this encounter Miscellaneous Notes * Cerner Conversion Note - Florentino Lynne MD - 03/05/2022 1:33 PM CDT On Going Discharge Planning Entered On: 03/05/2022 13:34 EDT Performed On: 03/05/2022 13:33 EDT by STEFAN FERNANDEZ RN-Fishing Lure AssemblerMarketing Communications Assistant Progress Note Discharge Arrangements : Patient Post-Acute Information Patient Name: ALYSSA AZUL Gender: Female : [birth year] Age: 61 Years No Post-Acute Placement(s) Listed No Post-Acute Service(s) Listed No Curaspan Referral(s) Listed Discharge Options Discussed with Patient : Acute rehabilitation, Discharge transportation, DME, Home Health, Other: LTACH Barriers to Discharge Identified : Clinical Condition of Patient Barriers to Discharge Unresolved : Clinical Condition of Patient Patient Discharge Goal : Inpatient rehabilitation facility STEFAN FERNANDEZ RN-Fishing Lure Assembler - 03/05/2022 13:33 EDT Narrative Progress Note Narrative Progress Note : RAR High ELOS: 5 days HD#3 Covid Vaccine X2 +Booster 61 year old female with history paraplegia, CKD3, DM2, HTN; presented to [facility] with SOB, fever, chills and productive Cough X1 week. Admitted for PNA and debridement DTI to left buttock. Cardiac arrested, intubated and [place] [facility] was extubated a couple days later and reintubated the same day and extubated. She was reintubated on 03/01 after failed BiPap and transferred to [facility]. Of note patient had trach/PEG in 2009. Consults: Pulmonary, ID / Intubated Vent Day #5 7 Central Line On MV per ET AC 16/400/40%/P8, sedated with Fentanyl and Propofol, awake and following commands. Na+ trending up 149. Corpak with TF. ID plan: IV Zosyn q8. Wound Vac to left buttock. Patient lives alone in [place]. She is and has one son FREDO. Her PCP s Dr. Cabello. Patient is ADL independent at her baseline. Only inpatient rehab stay was at [facility] at age 9. No prior home health services. She has a CPap and dated WC at home. She transports by her son or Medicaid van. DCP: CM spoke with patient's son FREDO on the phone. He and his plan to ultimately take her home to their house in [place] after hospitalization and LTACH/Rehab stay for IV abx and wound care. Patient has managed medicaid and does not have a SNF benefit. Her inpatient options at discharge will be LTACH or acute rehab versus home with home health. Early referral to [facility]. Son asked if we could assist in getting her a new WC at discharge. He will let CM know the name of her DME provider to see if she is eligible for a new one. CM will assist to get his [place] paperwork over to [place] office. STEFAN FERNANDEZ, RN-Fishing Lure Assembler - 03/05/2022 13:33 EDT Electronically signed by Sumaya [facility] Conversion Refrigerator Repairman Cerner at 12/21/2022 5:04 PM CDT documented in this encounter Plan of Treatment Not on file documented as of this encounter Visit Diagnoses Not on filedocumented in this encounter
--- OUTSIDE RECORDS SUMMARY | 2025-02-21 13:40 | XMS_ITS | Encounter Summary ---
Author Organization [facility] In [facility] Address [address] [place] [address] Care Team Providers Care Flash Oven Operator Name Role Phone Unavailable Primary Care Provider Unavailabl e Encounter Details Date Type Department Care Team (Late st Contact Info) Description 05/01/2022 Transcribed Document [facility] [place] Family Medicine [address] [place] [address] ProviderFlorentino MD [address] [place] [address] Social History Tobacco Use Types Packs/Day Years Used Date Smoking Tobacco: Never Assessed Comments Unknown Sex and Gender Information Value Date Recorded Sex Assigned at Not on file Legal Sex Female 1:44 PM CDT Gender Identity Not on file Sexual Orientation Not on file documented as of this encounter Miscellaneous Notes * Cerner Conversion Note - Florentino Lynne MD - 05/01/2022 10:46 AM CDT Patient: ALYSSA AZUL Age: 62 years Sex: Female : 1960 Associated Diagnoses: None Author: HIGINIO AREVALO MD-INF Antibiotics: Cefepime and micafungin CC Sacral wound Subjective: Patient without fevers stable today reportedly wants to go home still with elevated blood pressure Objective: Vitals Signs (last [...] fever plans for possible discharge home RECOMMENDATIONS/PLANS: - Continue cefepime 1 g IV every 12 hours through 05/08/2022 Continue micafungin 100 mg IV daily through 05/08/2022 Switch Zyvox to 600 p.o. twice daily x7-day Follow-up on cultures Creatinine down to 1 okay with PICC line if renal agrees documented in this encounter Plan of Treatment Not on file documented as of this encounter Visit Diagnoses Not on filedocumented in this encounter
--- OUTSIDE RECORDS SUMMARY | 2025-02-21 13:40 | XMS_ITS | Encounter Summary ---
Author Organization [employer] In [facility] Address [address] [place] [address] Care Team Providers Care Bindery Manager Name Role Phone Unavailable Primary Care Provider Unavailabl e Encounter Details Date Type Department Care Team (Late st Contact Info) Description 05/02/2022 Transcribed Document [facility] [place] Family Medicine [address] [place] [address] ProviderFolrentino MD [address] [place] [address] Social History Tobacco Use Types Packs/Day Years Used Date Smoking Tobacco: Never Assessed Comments Unknown Sex and Gender Information Value Date Recorded Sex Assigned at Not on file Legal Sex Female 1:44 PM CDT Gender Identity Not on file Sexual Orientation Not on file documented as of this encounter Miscellaneous Notes * Cerner Conversion Note - Florentino Lynne MD - 05/02/2022 12:24 AM CDT Patient: ALYSSA AZUL Age: 62 years Sex: Female : 1960 Associated Diagnoses: None Author: HIGINIO AREVALO MD-INF error Electronically signed by Sumaya [facility] Conversion Project Development Coordinator Cerner at 12/21/2022 5:07 PM CDT documented in this encounter Plan of Treatment Not on file documented as of this encounter Visit Diagnoses Not on filedocumented in this encounter
--- OUTSIDE RECORDS SUMMARY | 2025-02-21 13:40 | XMS_ITS | Encounter Summary ---
Author Organization [employer] [facility] Address [address] [place] [address] Care Team Providers Care Optometrist Owner Name Role Phone Unavailable Primary Care Provider Unavailabl e Encounter Details Date Type Department Care Team (Late st Contact Info) Description 03/05/2022 Transcribed Document [facility] [place] [address] [place] [address] ProviderFlorentino MD [address] [place] [address] Social History Tobacco Use Types Packs/Day Years Used Date Smoking Tobacco: Never Assessed Comments Unknown Sex and Gender Information Value Date Recorded Sex Assigned at Not on file Legal Sex Female 1:44 PM CDT Gender Identity Not on file Sexual Orientation Not on file documented as of this encounter Miscellaneous Notes * Cerner Conversion Note - Florentino Lynne MD - 03/05/2022 9:16 AM CDT Patient: ALYSSA AZUL Age: 61 [...] Zosyn + Sodium Chloride 0.9% intravenous solution 100 mL: 3.375 Gram, 33.33 mL/Hr, IV Piggyback, Q8HInt calcium gluconate: 1 [...] (Severe 7-10) niCARdipine injection 25 mg + NaCl 0.9% for drip 250 mL: TITRATE, IntraVENous potassium chloride 10 [...] oral tablet: Tab, Oral, Daily, 0 Refill(s) Avery-3 1000 mg oral capsule: Cap, Oral, QID, [...] Oral, Daily metFORMIN 1,000 mg, Oral, BID Avery-3 1000 mg oral capsule , Oral, QID pravastatin 40 mg oral tablet , Oral, Daily , Medications (35) Active Scheduled: (10) acetylcysteine 20% liq 4 [...] C, SubCutaneous, Q6H piperacillin-tazobactam + NaCl 0.9% 100 mL 3.375 Gram, IV Piggyback, Q8HInt senna 8.8 mg/5 mL liq 8.8 mg 5 mL, Oral, At Bedtime Continuous: (4) dexmedeTOMIDine 400 mcg + NaCl 0.9% TITRATE 100 mL 100 mL, IntraVENous fentaNYL/NaCl 0.9% 2,000 mcg + Premix Diluent NaCl 0.9% TITRATE 100 mL 100 mL, IntraVENous niCARdipine 25 mg + NaCl 0.9% T ITRATE 250 mL 250 mL, IntraVENous propofol 1,000 [...] History of obstructive sleep apnea / IMO [id number] / Confirmed, Active Problems (5) Chronic kidney disease (CKD), stage III (moderate) Diabetes History of obstructive sleep apnea Hyperlipidemia Hypertension Objective VS/Measurements Measurements from flowsheet : Measurements 03/04/2022 5:45 EDT Height Source Chart Height Entry Format [place] Height/Length, MAURITANIAN (ft) 5 ft Height/Length MAURITANIAN 4 Inch CLINICALHEIGHT 162.56 cm Routine Weight [...] 04 16:30) SBP 126 (MAR 05 06:00) 104 (MAR 04 09:30) H 187 (MAR 05 05:00) DBP 60 (MAR 05 06:00) L 57 (MAR 04 14:30) 79 (MAR 05 03:00) MAP 87 (MAR 05 06:00) 77 (MAR 04 09:30) 114 (MAR 05 04:00) SpO2 96 (MAR 05 08:17) 95 (MAR 05 08:05) 100 (MAR 04 11:15) Intake & Output Totals Last 24 Hours (7a-7a) Intake (51 Events) Continuous Infusions (167.98 mL) Medications (544.14 mL) Output (3 Events) Valenzuela Catheter (1925 mL) Gastric Tube Output: (200 mL) Input Total: 712.12 mL Output Total: 2125 mL Balance: -1412.88 mL Physical exam contact may be limited [...] 2.2 (MAR 03) L 2.3 (MAR 02) Impression and Plan 1- JAVIER - nonoliguric. Likely prerenal azotemia/ ATN secondary to septic shock and cardiac arrest. Fe urea 25%. Vancomycin level was >50 on last check. Improving. 2- CKD 3: Baseline creatinine around 1.6. Patient follows with [facility]. 3- Sepsis 4- Hypernatremia: 149 5- Anemia 6- Decubitus ulcer post debridement 7- Respiratory distress - Pneumonia on vent. Plan: - D5W infusion for hypernatremia - Albumin infusion to support BP - Keep MAP above 65 mmHg. - Check iron studies. - Monitor I/o - Avoid nephrotoxic agents. - Adjust meds per renal function - No emergent need of ROBOTICS SOFTWARE ENGINEER. - Monitor H/H and transfuse for Hgb less than 7.0 High risk and complexity patient. Discussed with RN at bedside. documented in this encounter Plan of Treatment Not on file documented as of this encounter Visit Diagnoses Not on filedocumented in this encounter
--- OUTSIDE RECORDS SUMMARY | 2025-02-21 13:40 | XMS_ITS | Encounter Summary ---
Author Organization [employer] [facility] [employer] Address [address] [place] [address] Care Team Providers Care Fractionation Plant Supervisor Name Role Phone Unavailable Primary Care Provider Unavailabl e Encounter Details Date Type Department Care Team (Late st Contact Info) Description 05/02/2022 Transcribed Document [facility] [place] Family Medicine [address] [place] [address] ProviderFlorentino MD [address] [place] [address] Social History Tobacco Use Types Packs/Day Years Used Date Smoking Tobacco: Never Assessed Comments Unknown Sex and Gender Information Value Date Recorded Sex Assigned at Not on file Legal Sex Female 1:44 PM CDT Gender Identity Not on file Sexual Orientation Not on file documented as of this encounter Miscellaneous Notes * Cerner Conversion Note - Florentino ProviderMD - 05/02/2022 5:00 AM CDT Chart Check - Review Order Profile Entered On: 05/02/2022 4:41 EDT Performed On: 05/02/2022 5:00 EDT by Casey Palacios Non Emp RN Chart Check Powerplans Initiated/Discontinued as Appropriate : Yes All Active Orders Reviewed : Yes Casey Palacios Non Emp RN - 05/02/2022 4:41 EDT documented in this encounter Plan of Treatment Not on file documented as of this encounter Visit Diagnoses Not on filedocumented in this encounter
--- OUTSIDE RECORDS SUMMARY | 2025-02-21 13:40 | XMS_ITS | Encounter Summary ---
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 Name Role Phone Unavailable Primary Care Provider Unavailabl e Encounter Details Date Type Department Care Team (Late st Contact Info) Description 03/07/2022 Transcribed Document [facility] [place] [facility] [address] [place] [address] ProviderFlorentino MD [address] [place] [address] Social History Tobacco Use Types Packs/Day Years Used Date Smoking Tobacco: Never Assessed Comments Unknown Sex and Gender Information Value Date Recorded Sex Assigned at Not on file Legal Sex Female 1:44 PM CDT Gender Identity Not on file Sexual Orientation Not on file documented as of this encounter Miscellaneous Notes * Cerner Conversion Note - Florentino Lynne MD - 03/07/2022 1:05 PM CDT Patient: ALYSSA AZUL Age: 61 years Sex: Female : 1960 Associated Diagnoses: None Author: VINNIE SWEENEY MD Subjective Failed weaning trail. As per nurse no overnight issues. Health Status Allergies: Allergic Reactions (Selected) No [...] At Bedtime , Medications (39) Active Scheduled: (10) acetylcysteine 20% [...] History of obstructive sleep apnea / IMO [id number] / Confirmed, Active Problems (5) Chronic kidney disease (CKD), stage III (moderate) Diabetes History of obstructive sleep apnea Hyperlipidemia Hypertension Objective VS/Measurements Vital Signs/Vital Measures 03/07/2022 12:00 EDT Systolic Blood Pressure 162 mmHg HI Diastolic Blood Pressure 81 mmHg Mean Arterial Pressure (MAP)-BMDI 114 Systolic BP, Arterial Line 2 208 mmHg HI Diastolic BP, Arterial Line 2 81 mmHg Mean Arterial Pressure, Line 2 114 mmHg Temperature Source Axillary Temperature Mode Fahrenheit Temperature, Fahrenheit 99.0 Deg F Clinical Temperature, C 37.2 Deg C Heart Rate Monitored 101 bpm HI Respiratory Rate 6 Breaths/Min LOW Oxygen Saturation 94 % 03/07/2022 11:00 EDT Systolic Blood Pressure 150 mmHg HI Diastolic Blood Pressure 75 mmHg Mean Arterial Pressure (MAP)-BMDI 106 Systolic BP, Arterial Line 2 195 mmHg HI Diastolic BP, Arterial Line 2 75 mmHg Mean Arterial Pressure, Line 2 109 mmHg Heart Rate Monitored 99 bpm Respiratory Rate 23 Breaths/Min HI Oxygen Saturation 100 % 03/07/2022 10:59 EDT Heart Rate Monitored 96 bpm Respiratory Rate 8 Breaths/Min LOW Oxygen Saturation 99 % Oxygen Therapy Mode Mechanical ventilation FiO2 40 % 03/07/2022 10:00 EDT Systolic Blood Pressure 127 mmHg Diastolic Blood Pressure 67 mmHg Mean Arterial Pressure (MAP)-BMDI 91 Systolic BP, Arterial Line 2 171 mmHg HI Diastolic BP, Arterial Line 2 69 mmHg Mean Arterial Pressure, Line 2 95 mmHg 03/07/2022 9:00 EDT Systolic Blood Pressure 111 mmHg Diastolic Blood Pressure 57 mmHg LOW Mean Arterial Pressure (MAP)-BMDI 77 Systolic BP, Arterial Line 2 125 mmHg Diastolic BP, Arterial Line 2 57 mmHg LOW Mean Arterial Pressure, Line 2 72 mmHg Heart Rate Monitored 92 bpm Respiratory Rate 19 Breaths/Min Oxygen Saturation 97 % Oxygen Therapy Mode Mechanical ventilation FiO2 40 % 03/07/2022 8:00 EDT Systolic Blood Pressure 113 mmHg Diastolic Blood Pressure 55 mmHg LOW Mean Arterial Pressure (MAP)-BMDI 78 Systolic BP, Arterial Line 2 133 mmHg Diastolic BP, Arterial Line 2 57 mmHg LOW Mean Arterial Pressure, Line 2 75 mmHg Temperature Source Axillary Temperature Mode Fahrenheit Temperature, Fahrenheit 99.3 Deg F Clinical Temperature, C 37.4 Deg C Heart Rate Monitored 80 bpm Respiratory Rate 29 Breaths/Min HI Oxygen Saturation 96 % 03/07/2022 7:49 EDT Heart Rate Monitored 80 bpm Respiratory Rate 27 Breaths/Min HI Oxygen Saturation 95 % Oxygen Therapy Mode Mechanical ventilation FiO2 40 % 03/07/2022 7:39 EDT Heart Rate Monitored 80 bpm Respiratory Rate 27 Breaths/Min HI Oxygen Saturation 94 % Oxygen Therapy Mode Mechanical ventilation FiO2 40 % 03/07/2022 7:00 EDT Systolic Blood Pressure 116 mmHg Diastolic Blood Pressure 58 mmHg LOW Mean Arterial Pressure (MAP)-BMDI 83 Systolic BP, Arterial Line 2 143 mmHg HI Diastolic BP, Arterial Line 2 59 mmHg LOW Mean Arterial Pressure, Line 2 80 mmHg 03/07/2022 6:00 EDT Systolic Blood Pressure 134 mmHg Diastolic Blood Pressure 62 mmHg Mean Arterial Pressure (MAP)-BMDI 89 Systolic BP, Arterial Line 2 139 mmHg Diastolic BP, Arterial Line 2 54 mmHg LOW Mean Arterial Pressure, Line 2 75 mmHg Heart Rate Monitored 90 bpm Respiratory Rate 24 Breaths/Min HI Oxygen Saturation 100 % Oxygen Therapy Mode Mechanical ventilation FiO2 40 % 03/07/2022 5:30 EDT Systolic BP, Arterial Line 2 143 mmHg HI Diastolic BP, Arterial Line 2 53 mmHg LOW Mean Arterial Pressure, Line 2 75 mmHg Heart Rate Monitored 90 bpm Respiratory Rate 12 Breaths/Min LOW Oxygen Saturation 99 % 03/07/2022 5:00 EDT Systolic Blood Pressure 143 mmHg HI Diastolic Blood Pressure 66 mmHg Mean Arterial Pressure (MAP)-BMDI 95 Systolic BP, Arterial Line 2 143 mmHg HI Diastolic BP, Arterial Line 2 55 mmHg LOW Mean Arterial Pressure, Line 2 79 mmHg Heart Rate Monitored 74 bpm Respiratory Rate 8 Breaths/Min LOW Oxygen Saturation 100 % 03/07/2022 4:57 EDT Heart Rate Monitored 73 bpm Respiratory Rate 18 Breaths/Min Oxygen Saturation 100 % Oxygen Therapy Mode Mechanical ventilation FiO2 40 % 03/07/2022 4:50 EDT Heart Rate, Apical 69 bpm 03/07/2022 4:30 EDT Systolic BP, Arterial Line 2 173 mmHg HI Diastolic BP, Arterial Line 2 66 mmHg Mean Arterial Pressure, Line 2 95 mmHg 03/07/2022 4:00 EDT Systolic Blood Pressure 189 mmHg HI Diastolic Blood Pressure 88 mmHg Mean Arterial Pressure (MAP)-BMDI 126 Systolic BP, Arterial Line 2 191 mmHg HI Diastolic BP, Arterial Line 2 71 mmHg Mean Arterial Pressure, Line 2 106 mmHg Temperature Source Oral Temperature Mode Fahrenheit Temperature, Fahrenheit 98.9 Deg F Clinical Temperature, C 37.2 Deg C Heart Rate Monitored 72 bpm Respiratory Rate 7 Breaths/Min LOW Oxygen Saturation 100 % Oxygen Therapy Mode Mechanical ventilation FiO2 40 % 03/07/2022 3:30 EDT Systolic BP, Arterial Line 2 157 mmHg HI Diastolic BP, Arterial Line 2 63 mmHg Mean Arterial Pressure, Line 2 85 mmHg Heart Rate Monitored 72 bpm Respiratory Rate 16 Breaths/Min Oxygen Saturation 100 % 03/07/2022 3:00 EDT Systolic Blood Pressure 125 mmHg Diastolic Blood Pressure 66 mmHg Mean Arterial Pressure (MAP)-BMDI 89 Systolic BP, Arterial Line 2 145 mmHg HI Diastolic BP, Arterial Line 2 58 mmHg LOW Mean Arterial Pressure, Line 2 78 mmHg Heart Rate Monitored 72 bpm Respiratory Rate 17 Breaths/Min Oxygen Saturation 100 % 03/07/2022 2:30 EDT Systolic BP, Arterial Line 2 154 mmHg HI Diastolic BP, Arterial Line 2 61 mmHg Mean Arterial Pressure, Line 2 84 mmHg Heart Rate Monitored 74 bpm Respiratory Rate 22 Breaths/Min HI Oxygen Saturation 100 % 03/07/2022 2:00 EDT Systolic Blood Pressure 118 mmHg Diastolic Blood Pressure 61 mmHg Mean Arterial Pressure (MAP)-BMDI 83 Systolic BP, Arterial Line 2 150 mmHg HI Diastolic BP, Arterial Line 2 58 mmHg LOW Mean Arterial Pressure, Line 2 79 mmHg Heart Rate Monitored 78 bpm Respiratory Rate 17 Breaths/Min Oxygen Saturation 100 % Oxygen Therapy Mode Mechanical ventilation FiO2 40 % 03/07/2022 1:30 EDT Systolic Blood Pressure 129 mmHg Diastolic Blood Pressure 63 mmHg Mean Arterial Pressure (MAP)-BMDI 89 Systolic BP, Arterial Line 2 166 mmHg HI Diastolic BP, Arterial Line 2 63 mmHg Mean Arterial Pressure, Line 2 86 mmHg Heart Rate Monitored 79 bpm Respiratory Rate 16 Breaths/Min Oxygen Saturation 97 % 03/07/2022 1:00 EDT Systolic Blood Pressure 129 mmHg Diastolic Blood Pressure 63 mmHg Mean Arterial Pressure (MAP)-BMDI 89 Systolic BP, Arterial Line 2 163 mmHg HI Diastolic BP, Arterial Line 2 63 mmHg Mean Arterial Pressure, Line 2 85 mmHg Heart Rate Monitored 84 bpm Respiratory Rate 17 Breaths/Min Oxygen Saturation 96 % 03/07/2022 0:30 EDT Systolic Blood Pressure 136 mmHg Diastolic Blood Pressure 69 mmHg Mean Arterial Pressure (MAP)-BMDI 95 Systolic BP, Arterial Line 2 156 mmHg HI Diastolic BP, Arterial Line 2 61 mmHg Mean Arterial Pressure, Line 2 82 mmHg Heart Rate Monitored 91 bpm Respiratory Rate 17 Breaths/Min Oxygen Saturation 97 % 03/07/2022 0:00 EDT Systolic Blood Pressure 136 mmHg Diastolic Blood Pressure 69 mmHg Mean Arterial Pressure (MAP)-BMDI 95 Systolic BP, Arterial Line 2 152 mmHg HI Diastolic BP, Arterial Line 2 61 mmHg Mean Arterial Pressure, Line 2 81 mmHg Temperature Source Oral Temperature Mode Fahrenheit Temperature, Fahrenheit 100.1 Deg F HI Clinical Temperature, C 37.8 Deg C Heart Rate Monitored 88 bpm Respiratory Rate 21 Breaths/Min HI Oxygen Saturation 98 % 03/06/2022 23:44 EDT Heart Rate Monitored 82 bpm Respiratory Rate 19 Breaths/Min Oxygen Saturation 95 % Oxygen Therapy Mode Mechanical ventilation FiO2 40 % 03/06/2022 23:30 EDT Systolic Blood Pressure 155 mmHg HI Diastolic Blood Pressure 70 mmHg Mean Arterial Pressure (MAP)-BMDI 101 Systolic BP, Arterial Line 2 173 mmHg HI Diastolic BP, Arterial Line 2 62 mmHg Mean Arterial Pressure, Line 2 88 mmHg 03/06/2022 23:00 EDT Systolic Blood Pressure 155 mmHg HI Diastolic Blood Pressure 70 mmHg Mean Arterial Pressure (MAP)-BMDI 101 Systolic BP, Arterial Line 2 178 mmHg HI Diastolic BP, Arterial Line 2 65 mmHg Mean Arterial Pressure, Line 2 93 mmHg Heart Rate Monitored 83 bpm Respiratory Rate 16 Breaths/Min Oxygen Saturation 95 % 03/06/2022 22:48 EDT Heart Rate, Apical 66 bpm 03/06/2022 22:30 EDT Systolic Blood Pressure 186 mmHg HI Diastolic Blood Pressure 82 mmHg Mean Arterial Pressure (MAP)-BMDI 118 Systolic BP, Arterial Line 2 206 mmHg HI Diastolic BP, Arterial Line 2 68 mmHg Mean Arterial Pressure, Line 2 106 mmHg Temperature Source Oral Temperature Mode Fahrenheit Temperature, Fahrenheit 101.1 Deg F HI Clinical Temperature, C 38.4 Deg C Heart Rate Monitored 69 bpm Respiratory Rate 26 Breaths/Min HI Oxygen Saturation 93 % LOW 03/06/2022 22:00 EDT Systolic Blood Pressure 208 mmHg HI Diastolic Blood Pressure 96 mmHg HI Mean Arterial Pressure (MAP)-BMDI 138 Systolic BP, Arterial Line 2 218 mmHg HI Diastolic BP, Arterial Line 2 73 mmHg Mean Arterial Pressure, Line 2 115 mmHg Heart Rate Monitored 71 bpm Respiratory Rate 16 Breaths/Min Oxygen Saturation 99 % 03/06/2022 21:30 EDT Systolic Blood Pressure 153 mmHg HI Diastolic Blood Pressure 73 mmHg Mean Arterial Pressure (MAP)-BMDI 105 Systolic BP, Arterial Line 2 154 mmHg HI Diastolic BP, Arterial Line 2 55 mmHg LOW Mean Arterial Pressure, Line 2 78 mmHg Heart Rate Monitored 99 bpm Respiratory Rate 23 Breaths/Min HI Oxygen Saturation 97 % 03/06/2022 21:24 EDT Heart Rate Monitored 97 bpm Respiratory Rate 19 Breaths/Min Oxygen Saturation 98 % Oxygen Therapy Mode Mechanical ventilation FiO2 40 % 03/06/2022 21:00 EDT Systolic Blood Pressure 153 mmHg HI Diastolic Blood Pressure 73 mmHg Mean Arterial Pressure (MAP)-BMDI 105 Systolic BP, Arterial Line 2 184 mmHg HI Diastolic BP, Arterial Line 2 60 mmHg Mean Arterial Pressure, Line 2 91 mmHg Heart Rate Monitored 107 bpm HI Respiratory Rate 26 Breaths/Min HI Oxygen Saturation 99 % 03/06/2022 20:30 EDT Systolic Blood Pressure 179 mmHg HI Diastolic Blood Pressure 91 mmHg HI Mean Arterial Pressure (MAP)-BMDI 127 Systolic BP, Arterial Line 2 213 mmHg HI Diastolic BP, Arterial Line 2 68 mmHg Mean Arterial Pressure, Line 2 103 mmHg Heart Rate Monitored 104 bpm HI Respiratory Rate 17 Breaths/Min Oxygen Saturation 99 % 03/06/2022 20:00 EDT Systolic Blood Pressure 179 mmHg HI Diastolic Blood Pressure 91 mmHg HI Mean Arterial Pressure (MAP)-BMDI 127 Systolic BP, Arterial Line 2 158 mmHg HI Diastolic BP, Arterial Line 2 51 mmHg LOW Mean Arterial Pressure, Line 2 81 mmHg Temperature Source Oral Temperature Mode Fahrenheit Temperature, Fahrenheit 102.3 Deg F HI Clinical Temperature, C 39.1 Deg C Heart Rate Monitored 103 bpm HI Respiratory Rate 21 Breaths/Min HI Oxygen Saturation 100 % Oxygen Therapy Mode Mechanical ventilation FiO2 40 % 03/06/2022 19:30 EDT Systolic Blood Pressure 162 mmHg HI Diastolic Blood Pressure 127 mmHg HI Mean Arterial Pressure (MAP)-BMDI 139 Systolic BP, Arterial Line 2 152 mmHg HI Diastolic BP, Arterial Line 2 49 mmHg LOW Mean Arterial Pressure, Line 2 77 mmHg Heart Rate Monitored 97 bpm Respiratory Rate 17 Breaths/Min Oxygen Saturation 100 % 03/06/2022 19:00 EDT Systolic Blood Pressure 162 mmHg HI Diastolic Blood Pressure 127 mmHg HI Mean Arterial Pressure (MAP)-BMDI 139 Systolic BP, Arterial Line 2 152 mmHg HI Diastolic BP, Arterial Line 2 49 mmHg LOW Mean Arterial Pressure, Line 2 77 mmHg Heart Rate Monitored 99 bpm Respiratory Rate 18 Breaths/Min Oxygen Saturation 99 % 03/06/2022 18:30 EDT Systolic BP, Arterial Line 2 145 mmHg HI Diastolic BP, Arterial Line 2 47 mmHg LOW Mean Arterial Pressure, Line 2 74 mmHg Heart Rate Monitored 102 bpm HI Respiratory Rate 21 Breaths/Min HI Oxygen Saturation 98 % 03/06/2022 18:00 EDT Systolic Blood Pressure 169 mmHg HI Diastolic Blood Pressure 77 mmHg Mean Arterial Pressure (MAP)-BMDI 110 Systolic BP, Arterial Line 2 154 mmHg HI Diastolic BP, Arterial Line 2 48 mmHg LOW Mean Arterial Pressure, Line 2 77 mmHg Heart Rate Monitored 103 bpm HI Respiratory Rate 15 Breaths/Min Oxygen Saturation 100 % 03/06/2022 17:00 EDT Systolic Blood Pressure 120 mmHg Diastolic Blood Pressure 59 mmHg LOW Mean Arterial Pressure (MAP)-BMDI 82 Systolic BP, Arterial Line 2 126 mmHg Diastolic BP, Arterial Line 2 42 mmHg LOW Mean Arterial Pressure, Line 2 64 mmHg Heart Rate Monitored 104 bpm HI Respiratory Rate 20 Breaths/Min Oxygen Saturation 95 % 03/06/2022 16:22 EDT Heart Rate Monitored 95 bpm Respiratory Rate 19 Breaths/Min Oxygen Saturation 95 % 03/06/2022 16:00 EDT Systolic Blood Pressure 118 mmHg Diastolic Blood Pressure 77 mmHg Mean Arterial Pressure (MAP)-BMDI 93 Systolic BP, Arterial Line 2 150 mmHg HI Diastolic BP, Arterial Line 2 55 mmHg LOW Mean Arterial Pressure, Line 2 83 mmHg Temperature Source Axillary Temperature Mode Fahrenheit Temperature, Fahrenheit 98.7 Deg F Clinical Temperature, C 37.1 Deg C 03/06/2022 15:00 EDT Systolic BP, Arterial Line 2 132 mmHg Diastolic BP, Arterial Line 2 41 mmHg LOW Mean Arterial Pressure, Line 2 115 mmHg Heart Rate Monitored 99 bpm Respiratory Rate 47 Breaths/Min HI Oxygen Saturation 96 % 03/06/2022 14:00 EDT Systolic Blood Pressure 156 mmHg HI Diastolic Blood Pressure 83 mmHg Mean Arterial Pressure (MAP)-BMDI 113 Systolic BP, Arterial Line 2 143 mmHg HI Diastolic BP, Arterial Line 2 51 mmHg LOW Mean Arterial Pressure, Line 2 77 mmHg Heart Rate Monitored 90 bpm Respiratory Rate 16 Breaths/Min Oxygen Saturation 98 % 03/06/2022 13:00 EDT Systolic Blood Pressure 144 mmHg HI Diastolic Blood Pressure 74 mmHg Mean Arterial Pressure (MAP)-BMDI 101 Systolic BP, Arterial Line 2 124 mmHg Diastolic BP, Arterial Line 2 46 mmHg LOW Mean Arterial Pressure, Line 2 66 mmHg Heart Rate Monitored 88 bpm Respiratory Rate 17 Breaths/Min Oxygen Saturation 98 % 03/06/2022 12:00 EDT Systolic Blood Pressure 159 mmHg HI Diastolic Blood Pressure 74 mmHg Mean Arterial Pressure (MAP)-BMDI 106 Systolic BP, Arterial Line 2 143 mmHg HI Diastolic BP, Arterial Line 2 51 mmHg LOW Mean Arterial Pressure, Line 2 75 mmHg Temperature Source Axillary Temperature Mode Fahrenheit Temperature, Fahrenheit 98.9 Deg F Clinical Temperature, C 37.2 Deg C Heart Rate Monitored 92 bpm Respiratory Rate 16 Breaths/Min Oxygen Saturation 99 % 03/06/2022 11:11 EDT Heart Rate Monitored 79 bpm Respiratory Rate 17 Breaths/Min Oxygen Saturation 99 % Oxygen Therapy Mode Mechanical ventilation FiO2 40 % 03/06/2022 11:00 EDT Systolic Blood Pressure 160 mmHg HI Diastolic Blood Pressure 74 mmHg Mean Arterial Pressure (MAP)-BMDI 107 Systolic BP, Arterial Line 2 134 mmHg Diastolic BP, Arterial Line 2 49 mmHg LOW Mean Arterial Pressure, Line 2 73 mmHg 03/06/2022 10:00 EDT Systolic Blood Pressure 200 mmHg HI Diastolic Blood Pressure 118 mmHg HI Mean Arterial Pressure (MAP)-BMDI 149 Systolic BP, Arterial Line 2 110 mmHg Diastolic BP, Arterial Line 2 40 mmHg LOW Mean Arterial Pressure, Line 2 61 mmHg Heart Rate Monitored 88 bpm Respiratory Rate 13 Breaths/Min LOW Oxygen Saturation 99 % 03/06/2022 9:00 EDT Systolic Blood Pressure 151 mmHg HI Diastolic Blood Pressure 73 mmHg Mean Arterial Pressure (MAP)-BMDI 102 Systolic BP, Arterial Line 2 108 mmHg Diastolic BP, Arterial Line 2 37 mmHg LOW Mean Arterial Pressure, Line 2 56 mmHg Heart Rate Monitored 88 bpm Respiratory Rate 16 Breaths/Min Oxygen Saturation 97 % 03/06/2022 8:10 EDT Heart Rate Monitored 81 bpm Respiratory Rate 16 Breaths/Min Oxygen Saturation 99 % 03/06/2022 8:09 EDT Heart Rate Monitored 79 bpm Respiratory Rate 16 Breaths/Min Oxygen Saturation 98 % 03/06/2022 8:00 EDT Systolic Blood Pressure 158 mmHg HI Diastolic Blood Pressure 70 mmHg Mean Arterial Pressure (MAP)-BMDI 101 Systolic BP, Arterial Line 2 131 mmHg Diastolic BP, Arterial Line 2 44 mmHg LOW Mean Arterial Pressure, Line 2 67 mmHg Temperature Source Axillary Temperature Mode Fahrenheit Temperature, Fahrenheit 99.0 Deg F Clinical Temperature, C 37.2 Deg C 03/06/2022 7:00 EDT Systolic Blood Pressure 167 mmHg HI Diastolic Blood Pressure 72 mmHg Mean Arterial Pressure (MAP)-BMDI 104 Systolic BP, Arterial Line 2 119 mmHg Diastolic BP, Arterial Line 2 41 mmHg LOW Mean Arterial Pressure, Line 2 61 mmHg Heart Rate Monitored 86 bpm Respiratory Rate 16 Breaths/Min Oxygen Saturation 97 % 03/06/2022 6:02 EDT Heart Rate Monitored 102 bpm HI Respiratory Rate 17 Breaths/Min Oxygen Saturation 96 % Oxygen Therapy Mode Mechanical ventilation FiO2 40 % 03/06/2022 6:00 EDT Systolic Blood Pressure 170 mmHg HI Diastolic Blood Pressure 85 mmHg Mean Arterial Pressure (MAP)-BMDI 115 Systolic BP, Arterial Line 2 151 mmHg HI Diastolic BP, Arterial Line 2 54 mmHg LOW Mean Arterial Pressure, Line 2 81 mmHg 03/06/2022 5:00 EDT Systolic Blood Pressure 156 mmHg HI Diastolic Blood Pressure 74 mmHg Mean Arterial Pressure (MAP)-BMDI 107 Systolic BP, Arterial Line 2 150 mmHg HI Diastolic BP, Arterial Line 2 49 mmHg LOW Mean Arterial Pressure, Line 2 78 mmHg Heart Rate Monitored 79 bpm Respiratory Rate 14 Breaths/Min Oxygen Saturation 99 % 03/06/2022 4:00 EDT Systolic Blood Pressure 116 mmHg Diastolic Blood Pressure 59 mmHg LOW Mean Arterial Pressure (MAP)-BMDI 81 Systolic BP, Arterial Line 2 112 mmHg Diastolic BP, Arterial Line 2 38 mmHg LOW Mean Arterial Pressure, Line 2 58 mmHg Temperature Source Axillary Temperature Mode Fahrenheit Temperature, Fahrenheit 98.5 Deg F Clinical Temperature, C 36.9 Deg C Heart Rate Monitored 73 bpm Respiratory Rate 16 Breaths/Min Oxygen Saturation 98 % 03/06/2022 3:00 EDT Systolic Blood Pressure 178 mmHg HI Diastolic Blood Pressure 80 mmHg Mean Arterial Pressure (MAP)-BMDI 115 Systolic BP, Arterial Line 2 167 mmHg HI Diastolic BP, Arterial Line 2 55 mmHg LOW Mean Arterial Pressure, Line 2 92 mmHg Heart Rate Monitored 70 bpm Respiratory Rate 16 Breaths/Min Oxygen Saturation 99 % 03/06/2022 2:30 EDT Systolic Blood Pressure 166 mmHg HI Diastolic Blood Pressure 79 mmHg Mean Arterial Pressure (MAP)-BMDI 114 Systolic BP, Arterial Line 2 160 mmHg HI Diastolic BP, Arterial Line 2 55 mmHg LOW Mean Arterial Pressure, Line 2 90 mmHg Heart Rate Monitored 62 bpm Respiratory Rate 17 Breaths/Min Oxygen Saturation 98 % 03/06/2022 2:00 EDT Systolic Blood Pressure 198 mmHg HI Diastolic Blood Pressure 88 mmHg Mean Arterial Pressure (MAP)-BMDI 126 Systolic BP, Arterial Line 2 181 mmHg HI Diastolic BP, Arterial Line 2 61 mmHg Mean Arterial Pressure, Line 2 103 mmHg Heart Rate Monitored 61 bpm Respiratory Rate 16 Breaths/Min Oxygen Saturation 98 % 03/06/2022 1:00 EDT Systolic Blood Pressure 150 mmHg HI Diastolic Blood Pressure 73 mmHg Mean Arterial Pressure (MAP)-BMDI 105 Systolic BP, Arterial Line 2 143 mmHg HI Diastolic BP, Arterial Line 2 48 mmHg LOW Mean Arterial Pressure, Line 2 75 mmHg Heart Rate Monitored 63 bpm Respiratory Rate 16 Breaths/Min Oxygen Saturation 97 % 03/06/2022 0:00 EDT Systolic Blood Pressure 150 mmHg HI Diastolic Blood Pressure 79 mmHg Mean Arterial Pressure (MAP)-BMDI 109 Systolic BP, Arterial Line 2 146 mmHg HI Diastolic BP, Arterial Line 2 50 mmHg LOW Mean Arterial Pressure, Line 2 79 mmHg Temperature Source Axillary Temperature Mode Fahrenheit Temperature, Fahrenheit 98.9 Deg F Clinical Temperature, C 37.2 Deg C Clinical Temperature, C 37.2 Deg C Heart Rate Monitored 73 bpm Respiratory Rate 16 Breaths/Min Oxygen Saturation 95 % , Measurements from flowsheet : Measurements 03/07/2022 4:00 EDT Routine Weight Source Bed scale Routine Weight Entry Format Metric Routine Weight, Kilograms 93.1 kg Routine Weight Calculation 93.1 kg 03/06/2022 6:15 EDT Height Source Chart Height Entry Format [place] Height/Length, SAMMARINESE (ft) 5 ft Height/Length SAMMARINESE 4 Inch CLINICALHEIGHT 162.56 cm Routine Weight Source Bed scale Routine Weight Entry Format Metric Routine Weight, Kilograms 94.2 kg Routine Weight Calculation 94.2 kg Body Mass Index (BMI), Routine 35.65 kg/m2 Body Surface Area (BSA), Routine 1.99 m2 , Vitals Signs (last 24 hrs) Last Charted Minimum Maximum Temp 99.0 (MAR 07 12:00) 98.9 (MAR 07 04:00) H 102.3 (MAR 06 20:00) Apical HR 69 (MAR 07 04:50) 66 (MAR 06 22:48) 69 (MAR 07 04:50) Mon HR 101 (MAR 07 12:00) 69 (MAR 06 22:30) 107 (MAR 06 21:00) Resp Rate L 6 (MAR 07 12:00) L 6 (MAR 07 12:00) H 47 (MAR 06 15:00) SBP H 162 (MAR 07 12:00) 111 (MAR 07 09:00) H 208 (MAR 06 22:00) DBP 81 (MAR 07 12:00) L 55 (MAR 07 08:00) H 127 (MAR 06 19:00) MAP 114 (MAR 07 12:00) 77 (MAR 07 09:00) 139 (MAR 06 19:00) SpO2 94 (MAR 07 12:00) L 93 (MAR 06 22:30) 100 (MAR 06 18:00) Intake & Output Totals Last 24 Hours (7a-7a) Intake (107 Events) Continuous Infusions (1527.45 mL) Medications (275.81 mL) Enteral Additional Water Given (220 mL) Enteral Feeding Amount (960 mL) Output (5 Events) Valenzuela Catheter (1300 mL) Input Total: 2983.26 mL Output Total: 1300 mL Balance: 1683.26 mL Physical exam contact may be limited [...] Review Labs (Last four charted values) WBC 9.3 [...] 06) 3.8 (MAR 05) Cl H 117 (FEB 08) H 117 (MAR 06) H 119 (MAR 05) H 118 (MAR 05) CO2 21 (FEB 08) 21 (FEB 07) L 19 (MAR 05) 21 (MAR 05) [...] 2.8 (MAR 05) L 2.1 (MAR 04) Impression and Plan 1- JAVIER - nonoliguric. Likely prerenal azotemia/ ATN secondary to septic shock and cardiac arrest. Fe urea 25%. Vancomycin level was >50 on last check. 2- CKD 3: Baseline creatinine around 1.6. Patient follows with [facility]. 3- Sepsis 4- Hypernatremia: 144- improving. 5- Anemia - Tsat 14% 6- Decubitus ulcer post debridement 7- Respiratory distress - Pneumonia on vent. Plan: - Renal function stable [still not back to baseline] - Continue with D5W infusion for hypernatremia. FW infusion with TF. - Albumin infusion to support BP - Keep MAP above 65 mmHg. - Monitor I/o - Avoid nephrotoxic agents. 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 - Monitor H/H and transfuse for Hgb less than 7.0 High risk and complexity patient. Discussed with RN at bedside. documented in this encounter Plan of Treatment Not on file documented as of this encounter Visit Diagnoses Not on filedocumented in this encounter
--- OUTSIDE RECORDS SUMMARY | 2025-02-21 13:40 | XMS_ITS | Encounter Summary ---
Author Organization [employer] Address [address] [place] [address] Care Team Providers Care Coal Shooter Name Role Phone Unavailable Primary Care Provider Unavailabl e Encounter Details Date Type Department Care Team (Late st Contact Info) Description 02/26/2022 Transcribed Document [facility] [place] Family Medicine [address] [place] [address] ProviderFlorentino MD [address] [place] [address] Social History Tobacco Use Types Packs/Day Years Used Date Smoking Tobacco: Never Assessed Comments Unknown Sex and Gender Information Value Date Recorded Sex Assigned at Not on file Legal Sex Female 1:44 PM CDT Gender Identity Not on file Sexual Orientation Not on file documented as of this encounter Miscellaneous Notes * Cerner Conversion Note - Historical ProviderMD - 02/26/2022 8:45 AM CDT Spiritual Care Short Form Entered On: 02/26/2022 9:59 EDT Performed On: 02/26/2022 8:45 EDT by JOSEF GHOTRA Chaplain General Information, Spiritual Care Spiritual Care Referred by : Interdisciplinary Team rounds Reason for Visit : Follow Up Intervention/Comment/Summary Points : Participated in MDRs; patient seen resting in bed, extubated. She will receive PT and swallow eval later today. No family present. JOSEF GHOTRA Chaplain - 02/26/2022 9:57 EDT documented in this encounter Plan of Treatment Not on file documented as of this encounter Visit Diagnoses Not on filedocumented in this encounter
--- OUTSIDE RECORDS SUMMARY | 2025-02-21 13:40 | XMS_ITS | Encounter Summary ---
Author Organization [employer] Address [address] [place] [id number] Care Team Providers Care Roller Shop Utility Worker Name Role Phone Unavailable Primary Care Provider Unavailabl e Encounter Details Date Type Department Care Team (Late st Contact Info) Description 05/01/2022 Transcribed Document [facility] [place] Family Medicine [address] [place] [address] ProviderFlorentino MD [address] [place] [address] Social History Tobacco Use Types Packs/Day Years Used Date Smoking Tobacco: Never Assessed Comments Unknown Sex and Gender Information Value Date Recorded Sex Assigned at Not on file Legal Sex Female 1:44 PM CDT Gender Identity Not on file Sexual Orientation Not on file documented as of this encounter Miscellaneous Notes * Cerner Conversion Note - Florentino ProviderMD - 05/01/2022 5:00 AM CDT Chart Check - Review Order Profile Entered On: 05/01/2022 3:14 EDT Performed On: 05/01/2022 5:00 EDT by Casey Palacios Non Emp RN Chart Check Powerplans Initiated/Discontinued as Appropriate : Yes All Active Orders Reviewed : Yes Casey Palacios Non Emp RN - 05/01/2022 3:14 EDT documented in this encounter Plan of Treatment Not on file documented as of this encounter Visit Diagnoses Not on filedocumented in this encounter
--- OUTSIDE RECORDS SUMMARY | 2025-02-21 13:40 | XMS_ITS | Encounter Summary ---
Author Organization [employer] Address [address] [place] [address] Care Team Providers Care Instrument Tester Name Role Phone Unavailable Primary Care Provider Unavailabl e Encounter Details Date Type Department Care Team (Late st Contact Info) Description 02/26/2022 Transcribed Document [facility] [place] [address] [place] [address] ProviderFlorentino MD [address] [place] [address] Social History Tobacco Use Types Packs/Day Years Used Date Smoking Tobacco: Never Assessed Comments Unknown Sex and Gender Information Value Date Recorded Sex Assigned at Not on file Legal Sex Female 1:44 PM CDT Gender Identity Not on file Sexual Orientation Not on file documented as of this encounter Miscellaneous Notes * Cerner Conversion Note - Florentino Lynne MD - 02/26/2022 9:49 AM CDT Patient: ALYSSA AZUL Age: [...] had cardiac arrest and was transferred to [facility]. This morning she was on the ventilator [...] chips/sips Denies pain. Asking about going home. Health Status Allergies: Allergic Reactions (Selected) No Known Allergies, Allergies (1) Active Reaction No Known Allergies None Documented Current medications: (Selected) Inpatient Medications Ordered Chloraseptic Menthol 1.4% topical spray: 1 [place], Oral, Q2H, PRN: Sore Throat Dextrose 50% [...] Inhalation, RT_Q4H bisoprolol: 5 mg, Oral, Daily glucagon: 1 mg, IntraMuscular, Q15Min, PRN: [...] kg - 100 kg scale, SubCutaneous, Q6H ondansetron: 4 mg, IV Push, Q6H, PRN: Nausea/Vomiting pantoprazole: 40 mg, IV Push, Daily traMADol: 50 mg, Oral, Q6H, PRN: Pain (Moderate 4-6) Documented Medications Documented [place]-3 1000 mg oral capsule: 1 Cap, Oral, [...] 1 Tab, Oral, Daily, 0 Refill(s), Medications (19) Active Scheduled: (7) #NaCl 0.9% *FLUSH* inj [...] Gram, IV Piggyback, Q8HInt Continuous: (0) PRN: (12) #NaCl 0.9% *FLUSH* inj 10 [...] Push, Q6H phenol 1.4% throat spray 1 [place], Oral, Q2H traMADol 50 mg tab 50 mg 1 Tab, Oral, Q6H Problem list: Medical History of obstructive sleep apnea / IMO [id number] / Confirmed, Active Problems (1) History of [...] 12:00) 99.0 (FEB 25 12:00) Mon HR 72 (FEB 26 09:25) 65 (FEB 26 06:15) 97 (FEB 25 11:00) Resp Rate H 29 (FEB 26 09:25) L 7 (FEB 26 02:00) H 51 (FEB 25 14:30) SBP H 151 (FEB 26 09:15) 107 (FEB 25 21:15) H 196 (FEB 25 19:30) DBP 79 (FEB 26 09:15) L 59 (FEB 25 11:30) H 103 (FEB 26 05:30) MAP 110 (FEB 26 09:15) 78 (FEB 25 21:15) 136 (FEB 26 05:30) SpO2 95 (FEB 26 09:25) L 85 (FEB 26 00:17) 98 (FEB 25 12:30) General: Alert and oriented, No acute distress. Eye: Pupils are equal, round and reactive to light, Normal conjunctiva. HENT: Normocephalic, Oral mucosa is moist. Neck: Supple, Non-tender. Respiratory: Respirations are non-labored, Breath sounds are equal. Cardiovascular: Normal rate, Regular rhythm, increasing le edema bilat. Gastrointestinal: Soft, Non-tender, Non-distended, Normal bowel sounds. Musculoskeletal: Normal range of motion, Normal strength, No tenderness, contractures. Integumentary: Warm, Dry, [place], No rash. Neurologic: Alert, paraplegia, bilat upper ext weakness, nods head appropriately. Psychiatric: Cooperative. Review / Management FEB 26 03:51 H 147 112 H 50 / H 153 3.6 23 H 3.30 \ FEB 26 03:51 \ L 8.1 / 9.6 203 / L 25.8 \ Blood Gases (Current Encounter/Past 24 Hours) pH Art 7.36 02/25/2022 18:26 pCO2 Art 40.3 02/25/2022 18:26 pO2 Art 73.3 LOW 02/25/2022 19:39 HCO3 Art 22.1 02/25/2022 18:26 BE Art -2.5 NA 02/25/2022 18:26 sO2 Art 93.5 NA 02/25/2022 18:26 tHb Art 8.7 NA 02/25/2022 18:26 HCTc 27 NA 02/25/2022 18:26 ctO2 11.3 NA 02/25/2022 18:26 FIO2 Art 40.0 NA 02/25/2022 18:26 Delivery Device Type Art Non-Invasive Ventilation 02/25/2022 18:26 Temperature, F Art 98.6 NA 02/25/2022 18:26 Art Blood Gas (ABG) Site Right Brachial 02/25/2022 18:26 Acceptable Huang's Test Art Not Applicable 02/25/2022 18:26 Ventilator Mode Art Spontaneous 02/25/2022 11:15 Set Rate Art 18 NA 02/25/2022 18:26 Respiratory Rate Art 28.0 NA 02/25/2022 18:26 CPAP/PEEP Art 5.0 NA 02/25/2022 18:26 Pressure Support Art 18.0 NA 02/25/2022 18:26 ABG Num of Draw Attempts 2 NA 02/25/2022 18:26 PaO2/FiO2 calculated 183 NA 02/25/2022 18:26 CMP Results (Current Encounter/Past 24 Hours) Protein Total 6.1 Gram/dL LOW 02/26/2022 04:16 A/G Ratio 0.5 LOW 02/26/2022 04:16 Creatinine Level 3.30 mg/dL ID 02/26/2022 04:16 eGFR 17 mL/min/1.73m2 [facility] 02/26/2022 04:16 Globulin 4.2 Gram/dL 02/26/2022 04:16 eGFR NonAfrican 14 mL/min/1.73m2 [facility] 02/26/2022 04:16 Bun/Creatinine 15.2 02/26/2022 04:16 Sodium Level 147 mmol/L ID 02/26/2022 04:16 Potassium Level 3.6 mmol/L 02/26/2022 04:16 Chloride Level 112 mmol/L 02/26/2022 04:16 Carbon Dioxide Level 23 mmol/L 02/26/2022 04:16 Anion Gap 02/26/2022 04:16 Alk Phos 51 Units/Liter 02/26/2022 04:16 ALT 15 Units/Liter 02/26/2022 04:16 AST 13 Units/Liter 02/26/2022 04:16 Blood Urea Nitrogen 50 mg/dL ID 02/26/2022 04:16 Glucose Level 153 mg/dL ID 02/26/2022 04:16 Albumin Level 1.9 Gram/dL LOW 02/26/2022 04:16 Bilirubin Total 0.4 mg/dL 02/26/2022 04:16 Calcium Level 8.2 mg/dL LOW 02/26/2022 04:16 Magnesium Level 2.7 mg/dL ID 02/26/2022 04:16 Cardiac Markers (Current Encounter/Past 24 Hours) No Cardiac Marker Results Found (Past 24 Hours) Coagulation Results (Current Encounter/Past 24 Hours) No Coagulation Results Found (Past 24 Hours) Radiology Results (Last 48 hours) [id number] -- 02/22/2022 00:01 CR Chest 1 Vw [...] review: Labs (Last four charted values) WBC 9.6 (CATRACHITA 29) H 10.4 (CATRACHITA 28) 8.9 (CATRACHITA 27) 6.5 (CATRACHITA 26) HB L 8.1 (CATRACHITA 29) L 8.3 (CATRACHITA 28) L 7.5 (CATRACHITA 27) L 7.9 (CATRACHITA 26) HCT L 25.8 (CATRACHITA 29) L 25.5 (CATRACHITA 28) L 23.1 (CATRACHITA 27) L 24.0 (CATRACHITA 26) Plt 203 (CATRACHITA 29) 246 (CATARCHITA 28) 217 (CATRACHITA 27) 215 (CATRACHITA 26) [...] 3.28 (CATRACHITA 28) H 3.17 (FEB 24) H 3.04 (FEB [...] returned to baseline Acute respiratory failure - s/p MV D#4, did well with extubation 02/25. Continue to wean off fio2. Increase activity. Sepsis, septic shock - resolved Acute - chronic renal failure - Cr increased from baseline, better stabilized but still elevated. Maintaining volume status. Acute metabolic acidsois - Much improved, bicarb drifting down again. Added po bicarb Acute anemia - no active bleeding, suspect secondary to wound debridement/labs/cc. s/p 1unit PRBC 02/23. Hbg remains stable Hypernatremia, hyperchloremia - increased slightly again. Currently of free water via NGT. Hopefully on PO diet later this afternoon. Holding D5W due to sugars for now LLL pneumonia - continue HHN, ID consulted for abx. Continue to hold vanc. discussed with RT, add CPT bilat. Follow-up cxr today Left hip decub - wound vac placed. Abx per ID. DM - swtiched to insulin SSI, lantus. rx per medicine HTN - started on rx, monitor hyperlipidemia paraplegia Full code Started tube feeds 02/23, nutrition following. NPO again for ST evaluation. Restart if patient fails. GI ppx - started on PPI DVT ppx - started on heparin sq Discussed with nursing, RT. Electronically signed by Sumaya, elizabeth Conversion Civil Rights Representative Cerner at 12/21/2022 5:06 PM CDT documented in this encounter Plan of Treatment Not on file documented as of this encounter Visit Diagnoses Not on filedocumented in this encounter
--- OUTSIDE RECORDS SUMMARY | 2025-02-21 13:40 | XMS_ITS | Encounter Summary ---
Author Organization [employer] Address [address] [place] [address] Care Team Providers Care Floor Attendant Name Role Phone Unavailable Primary Care Provider Unavailabl e Encounter Details Date Type Department Care Team (Late st Contact Info) Description 03/06/2022 Transcribed Document [facility] [place] [address] [place] [address] ProviderFlorentino MD [address] [place] [address] Social History Tobacco Use Types Packs/Day Years Used Date Smoking Tobacco: Never Assessed Comments Unknown Sex and Gender Information Value Date Recorded Sex Assigned at Not on file Legal Sex Female 1:44 PM CDT Gender Identity Not on file Sexual Orientation Not on file documented as of this encounter Miscellaneous Notes * Cerner Conversion Note - Florentino ProviderMD - 03/06/2022 5:48 PM CDT Patient: ALYSSA AZUL Age: 61 Years Sex: Female : 1960 Subjective DOS 03/06/2022 Seen and examined at bedside in ICU. intubated. following commands. Keeps failing breathing trials. Vital Signs T: 37.1 ??C TMIN: 36.9 ??C TMAX: 37.2 ??C HR: 104(Monitored) RR: 20 BP: 120/59 SpO2: 95% HT: 162.56 cm WT: 94.2 kg BMI: 35.65 Oxygen Settings (Last) Oxygen Therapy Mode: Mechanical ventilation (03/06/22 11:11:00) Intake & Output Totals Last 24 Hours (7a-7a) Input Total: 2509.94 mL Output Total: 1550 mL Balance: 959.94 mL Physical Exam General: No acute distress, [...] appreciated- recommend wound care consult - d/w linux server engineer today- wound vac applied on 02/24 pneumonia [...] the patient due to divert status. Summary [facility] stay: patient admitted to [facility] on 02/17/22, temp in ER of 100.9, [...] necrosis. no pathology sent. Patient transferred to [facility] at midnight on 02/22. [...] 03/05 nephro follwoing, Had bronchoscopy 03/04 by pulBRIANNE molina follwoing. repeat labs and monitor 03/06 still critically in ICU. nephro, ID, and pulm following. Disposition: critically ill, in ICU, high risk and complexity patient pending consultants' recommendations, discharge is uncertain at this time VTE Prophylaxis - Medical Heparin 5,000 Units, SubCutaneous, Inj, Q8H, Routine, Start 03/01/22 22:00:00 EDT, 03/01/22 19:01:00 EDT (GENI ORTIZ) Sequential Compression Device Start: 03/01/22 19:03:00 EDT, Bilateral, Length: Knee High, While patient is in bed, Continuous Order ([facility] PHYSICIAN-CLINIC) Sequential Compression Device Start: 03/01/22 18:51:00 EDT, Bilateral, Length: Knee High, While patient is in bed, Continuous Order (Elaine Ramires, PHYSICIAN-CLINIC) Medications calcium gluconate, 1 Gram= 100 mL, [...] Test Name Test Result Date/Time Sodium Level 147 mmol/L (High) 03/06/2022 03:32 EDT Potassium Level 3.5 mmol/L 03/06/2022 03:32 EDT Chloride Level 117 mmol/L (High) 03/06/2022 03:32 EDT Carbon Dioxide Level 21 mmol/L 03/06/2022 03:32 EDT Anion Gap 12 03/06/2022 03:32 EDT Glucose Level 165 mg/dL (High) 03/06/2022 03:32 EDT Blood Urea Nitrogen 33 mg/dL (High) 03/06/2022 03:32 EDT Creatinine Level 2.10 mg/dL (High) 03/06/2022 03:32 EDT eGFR 29 mL/min/1.73m2 (Low) 03/06/2022 03:32 EDT eGFR NonAfrican 24 mL/min/1.73m2 (Low) 03/06/2022 03:32 EDT Bun/Creatinine 15.7 03/06/2022 03:32 EDT Calcium Level 9.0 mg/dL 03/06/2022 03:32 EDT Protein Total 6.9 Gram/dL 03/06/2022 03:32 EDT Albumin Level 2.9 Gram/dL (Low) 03/06/2022 03:32 EDT Globulin 4.0 Gram/dL 03/06/2022 03:32 EDT A/G Ratio 0.7 (Low) 03/06/2022 03:32 EDT Bilirubin Total 0.7 mg/dL 03/06/2022 03:32 EDT Alk Phos 46 Units/Liter 03/06/2022 03:32 EDT AST 14 Units/Liter 03/06/2022 03:32 EDT ALT 13 Units/Liter 03/06/2022 03:32 EDT Device Comment 1 Notified Nurse RBV 03/06/2022 17:37 EDT Device Comment 1 Notified Nurse RBV 03/06/2022 11:43 EDT Device Comment 1 Protocols Followed 03/06/2022 06:45 EDT Device Comment 1 Notified Nurse RBV 03/06/2022 05:33 EDT Device Comment 1 Notified Nurse RBV 03/05/2022 23:38 EDT Glucose POC2 200 mg/dL (High) 03/06/2022 17:37 EDT Glucose POC2 214 mg/dL (High) 03/06/2022 11:43 EDT Glucose POC2 160 mg/dL (High) 03/06/2022 06:45 EDT Glucose POC2 151 mg/dL (High) 03/06/2022 05:33 EDT Glucose POC2 151 mg/dL (High) 03/05/2022 23:38 EDT [1] Hospitalist Progress Note - SOAP; Elaine Ramires, PHYSICIAN-CLINIC 03/05/2022 15:29 EDT Electronically signed by [facility], [facility] Conversion Jd Edwards Cerner at 12/21/2022 5:06 PM CDT documented in this encounter Plan of Treatment Not on file documented as of this encounter Visit Diagnoses Not on filedocumented in this encounter
--- OUTSIDE RECORDS SUMMARY | 2025-02-21 13:40 | XMS_ITS | Encounter Summary ---
Author Organization [employer] Address [address] [place] [address] Care Team Providers Care Suture Polisher Name Role Phone Unavailable Primary Care Provider Unavailabl e Encounter Details Date Type Department Care Team (Late st Contact Info) Description 02/28/2022 Transcribed Document [facility] [place] [facility] [place] [address] ProviderFlorentino MD [address] [place] [address] Social History Tobacco Use Types Packs/Day Years Used Date Smoking Tobacco: Never Assessed Comments Unknown Sex and Gender Information Value Date Recorded Sex Assigned at Not on file Legal Sex Female 1:44 PM CDT Gender Identity Not on file Sexual Orientation Not on file documented as of this encounter Miscellaneous Notes * Cerner Conversion Note - Florentino Lynne MD - 02/28/2022 9:41 AM CDT Patient: ALYSSA AZUL Age: 61 years Sex: Female : 1960 Associated Diagnoses: None Author: Benoit Maurice, Supply Chain Intern Critical Care Basic Information Present at bedside: [...] had cardiac arrest and was transferred to [facility]. This morning she was on the ventilator [...] air bronchograms, and very small right effusion. 02/28: Patient is sitting up in bed, wore BIPAP overnight. Working with PT. Afebrile no acute events overnight. Did cough some sputum up today and said it was pink tinged. Na 147. Cr downtrending 2.94. Hemoglobin 7.8 after starting heparin. Please watch closely. Cx neg, zosyn day 7. Review of Systems Constitutional: No fever, No chills, No sweats. Eye: No icterus, No double vision. Ear/Nose/Mouth/Throat: No nasal congestion, No sore throat. Respiratory: Cough, Sputum production, sputum color pink tinged today, No shortness of breath, No hemoptysis. Cardiovascular: No palpitations, No peripheral [...] Ordered Chloraseptic Menthol 1.4% topical spray: 1 [place], Oral, Q2H, PRN: Sore Throat Dextrose 50% [...] PRN: Pain (Moderate 4-6) Documented Medications Documented [place]-3 1000 mg oral capsule: 1 Cap, Oral, [...] 1 Tab, Oral, Daily, 0 Refill(s), Medications (28) Active Scheduled: (7) albuterol-ipratropium inh [...] Push, Q6H phenol 1.4% throat spray 1 [place], Oral, Q2H potassium bicarb efferves 20 mEq [...] History of obstructive sleep apnea / IMO [id number] / Confirmed, Active Problems (1) History of [...] Charted Minimum Maximum Temp 98.2 (FEB 28 08:) 97.9 (FEB 28:30) 98.2 (FEB 28 05:) Mon HR 71 (FEB 28:) 60 (FEB 27 11:32) 76 (FEB 28 00:19) Resp Rate 18 (FEB 28:) 18 (FEB 27 18:00) H 84 (FEB 28 04:50) SBP H 149 (FEB 28 08:) 110 (FEB 27 11:00) H 162 (FEB 27 13:57) DBP 68 (FEB 28 08:) L 59 (FEB 27 11:00) 85 (FEB 27 13:57) MAP 87 (FEB 28 05:) 81 (FEB 27 11:00) 99 (FEB 27 13:57) SpO2 98 (FEB 28:) L 93 (FEB 27 20:50) 99 (FEB 27 13:57) General: Alert and oriented, No acute distress, BiPAP, obese. Eye: Pupils are equal, round and reactive to light, Extraocular movements are intact, Normal conjunctiva. HENT: Normocephalic, No pharyngeal erythema. Neck: Supple, Non-tender, No carotid bruit, No lymphadenopathy. Respiratory: Respirations are non-labored, Breath sounds are equal, No chest wall tenderness, Rhonchi improved b/l. Cardiovascular: Normal rate, Regular rhythm, No murmur, No edema. Gastrointestinal: Soft, Non-tender, Non-distended, Normal bowel sounds. Musculoskeletal: Normal range of motion, Normal strength, No swelling. Neurologic: Alert, Oriented, paraplegic . Cognition and Speech: Oriented. Psychiatric: Cooperative. Review / Management Results review: Labs (Last four charted values) WBC 10.0 (FEB 28) 9.0 (FEB 27) 9.6 (FEB 26) H 10.4 (FEB 25) HB L 7.8 (FEB 28) L 8.6 (CATRACHITA 30) L 8.1 (CATRACHITA 29) L 8.3 (CATRACHITA 28) HCT L 25.1 (FEB 28) L 27.5 (CATRACHITA 30) L 25.8 (CATRACHITA 29) L 25.5 (CATRACHITA 28) Plt 197 (FEB 28) 190 (CATRACHITA 30) 203 (CATRACHITA 29) 246 (CATRACHITA 28) Na H 147 (FEB 28) H 148 (CATRACHITA 30) H 147 (CATRACHITA 29) 146 (CATRACHITA 28) K 4.0 (FEB 28) L 3.2 (CATRACHITA 30) 3.6 (CATRACHITA 29) L 3.4 (CATRACHITA 28) Cl H 113 (FEB 28) H 113 (CATRACHITA 30) 112 (CATRACHITA 29) 110 (CATRACHITA 28) CO2 23 (FEB 28) 22 (CATRACHITA 30) 23 (CATRACHITA 29) L 20 (CATRACHITA 28) BUN H 53 (FEB 28) H 50 (CATRACHITA 30) H 50 (CATRACHITA 29) H 48 (JAN 28) Cr H 2.94 (FEB 28) H 3.12 (CATRACHITA 30) H 3.30 (CATRACHITA 29) H 3.28 (CATRACHITA 28) Glu R H 178 (FEB 28) 97 (CATRACHITA 30) H 153 (CATRACHITA 29) H 178 (JAN 28) Ca L 8.2 (FEB 28) 8.5 (CATRACHITA 30) L 8.2 (CATRACHITA 29) L 8.1 (CATRACHITA 28) Lactic 0.9 (CATRACHITA 25) 0.7 (CATRACHITA [...] (CATRACHITA 26) L 1.9 (CATRACHITA 24) . FEB 28 03:03 H 147 H 113 H 53 / H 178 4.0 23 H 2.94 \ FEB 28 03:03 \ L 7.8 / 10.0 197 / L 25.1 \ Blood Gases (Current Encounter/Past 24 Hours) No Blood Gas Results Found (Past 24 Hours) No Radiology Results Found Impression and Plan Pulmonary Cariopulmonary arrest 2ndary to metabolic acidosis and resp failure. required vent, now on NC 2L extubated 02/25 Acute resp failure requiring mechanical [...] glucose 140-180 PMHx: DM Plan: O2 requirements: BiPAP qHS and naps, 1L NC AB/28 stable Lab work shows: Hypernatremia, hypokalemia - resolved, cr elevated and downtrending, no leukocytosis, Hemoglobin 7.8 (8.6 prior) Cultures: Blood: neg, Sputum: neg, PNA PCR: n/a, Viral panel: n/a, MRSA: neg, Urine: neg Antibiotics: IV zosyn (Start date: 02/22) DAY 7 Images: CXR 02/26: no interval changes Medications: Nebulizers: duoneb q4h Procedures: left hip debridement 02/20 Consultants: nephrology, ID, pulm, general surgery PT/OT? yes Speech Eval? pending Nutrition/Feeds: NG, pending speech eval Insulin coverage: Lantus 14 U BID, sliding scale q6h DVT/GI ppx: Heparin/protonix CODE status: full code TODAYS PLANS: ???Currently on BiPAP PRN qHS and 2L NC ??? Titrate FiO2 to maintain O2 stats greater than 92% ??? Otherwise hemodynamically stable, off pressors ??? Electrolytes: Hypernatremia, hypokalemia -resolved. Replace per protocol. Continue free water through NG tube. We will follow-up on sodium tomorrow, patient is ANO x4, without symptomatology. ??? Creatinine elevated but downtrending 2.98 (prior 3.13). Nephrology following. Avoid nephrotoxic agents. Strict I's and O's. ??? Pancultures are negative, on IV Zosyn for 7 days. Continue to monitor and potentially de-escalate antibiotics within 7 to 10 days. ID is following. ??? Status post left hip debridement, with wound VAC. Continue per wound care recommendations. ???Initiated DVT prophylaxis with heparin 5000 subcu every 8 hours. Monitor for signs of bleeding. Check CBC in the morning. - Hemoglobin downtrending 7.8 (prior 8.6). No active signs of bleeding. Noticed pink tinge to sputum. Likely from her pneumonia and bronchitis. We will hold heparin. To keep track of hemoptypsis if she coughs up bloody sputum. To inform us if she coughs up more than 100cc per hr or more than 500cc per 24 hrs. -Using [employer] I have personally performed a [id number] diagnostic evaluation on this patient. I have reviewed labs, radiologic data and agree with the care plan. Patient remains ill at this time and needs higher level of care and decision making due to complexity of disease. Plan was discussed with patient???s nurse Clinical condition and plan discussed with patient. Answered all questions. documented in this encounter Plan of Treatment Not on file documented as of this encounter Visit Diagnoses Not on filedocumented in this encounter
--- OUTSIDE RECORDS SUMMARY | 2025-02-21 13:40 | XMS_ITS | Encounter Summary ---
Author Organization [employer] In [employer] Address [address] [place] [address] Care Team Providers Care Tankage Supervisor Name Role Phone Unavailable Primary Care Provider Unavailabl e Encounter Details Date Type Department Care Team (Late st Contact Info) Description 05/01/2022 Transcribed Document [facility] [place] [address] [place] [address] ProviderFlorentino MD [address], [place] [id number] Social History Tobacco Use Types Packs/Day Years Used Date Smoking Tobacco: Never Assessed Comments Unknown Sex and Gender Information Value Date Recorded Sex Assigned at Not on file Legal Sex Female 1:44 PM CDT Gender Identity Not on file Sexual Orientation Not on file documented as of this encounter Miscellaneous Notes * Cerner Conversion Note - Florentino Lynne MD - 05/01/2022 10:02 AM CDT UM Authorization Entered On: 05/01/2022 10:03 EDT Performed On: 05/01/2022 10:02 EDT by SARAH MORALES RN Primary Insurance Authorization Authorization and Policy Numbers : Insurance 1 Health Plan: [facility] Policy Number: [id number] Authorization Number: Insurance 2 Health Plan: MEDICAID [facility] Policy Number: [id number] Authorization Number: Insurance Primary Name : [facility] Policy Number: [id number] Authorization Status-Primary : Denied Reference Number-Primary : [id number] Authorized Service Begin Date-Primary : 2022 EDT Authorization Comments-Primary : Left VM for Marina with AB inquiring if admit will be linked to previous admit 04/08-04/26 auth # [id number]. Per fax states denied due to being linked readmit. Historical Authorization Comments-Primary : Comment 1: Rec faxed Denial from [facility] 04/30/22 placed in tray on JJs desk (SHERIF LYNCH, Explosive Ordnance Technician 04/30/2022 12:52) Comment 2: Faxed initial clinicals via [employer]. (SARAH MORALES RN 2022 11:46) SARAH MORALES RN - 05/01/2022 10:02 EDT Electronically signed by Sumaya [facility] Conversion Video Technician Cerner at 12/21/2022 5:05 PM CDT documented in this encounter Plan of Treatment Not on file documented as of this encounter Visit Diagnoses Not on filedocumented in this encounter
--- OUTSIDE RECORDS SUMMARY | 2025-02-21 13:40 | XMS_ITS | Encounter Summary ---
Author Organization [employer] Address [address] [place] [address] Care Team Providers Care Application Specialist Name Role Phone Unavailable Primary Care Provider Unavailabl e Encounter Details Date Type Department Care Team (Late st Contact Info) Description 02/26/2022 Transcribed Document [facility] [place] [facility] [place] [address] ProviderFlorentino MD [facility] [place] [address] Social History Tobacco Use Types Packs/Day Years Used Date Smoking Tobacco: Never Assessed Comments Unknown Sex and Gender Information Value Date Recorded Sex Assigned at Not on file Legal Sex Female 1:44 PM CDT Gender Identity Not on file Sexual Orientation Not on file documented as of this encounter Miscellaneous Notes * Cerner Conversion Note - Florentino ProviderMD - 02/26/2022 8:22 AM CDT Evaluation, Occupational Therapy Entered On: 02/26/2022 12:35 EDT Performed On: 02/26/2022 10:59 EDT by ASIA ROCA OTR/[place] General Information, OT Visit Type, OT : Initial evaluation Patient Orders : Order Date Order Ordering 02/22/2022 10:11 OT Evaluation and Treatment Ordered By: JOHN WOODS MD-PUL 02/26/2022 08:22 Consult to Occupational Therapy Ordered By: LUIS ANGEL CUNNINGHAM DO Active Diagnoses : 02/22/2022 06:53 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 02/22/2022 06:52 Acute kidney failure, unspecified 02/22/2022 06:52 Cardiac arrest, cause unspecified 02/22/2022 06:52 Pneumonia, unspecified organism 02/22/2022 06:52 Severe sepsis with septic shock Therapy Diagnosis, OT : generalized weakness Onset of Problem, OT : 02/22/2022 EDT Admission Date : 02/22/2022 00:01 Personal Devices : Personal Devices No Devices Recorded Assistive Devices : Assistive Devices No Devices Recorded ASIA ROCA OTR/L - 02/26/2022 12:12 EDT General Status Patient Received Status : Long sitting in bed Treatment Start Time : 02/26/2022 10:59 EDT Patient Left Status : Long sitting in bed, RN/PCT informed, Family/Visitors at bedside, All needs met and within reach RN/PCT Informed Comment : RN ok'ed. Client agrees to tx. Treatment End Time : 02/26/2022 11:43 EDT Treatment Time : 44 Minute(s) Actual Treatment Time : 48 Minute(s) (Comment: chart review, collaboration with nursing, clinical reasonin min [ASIA ROCA OTR/L - 02/26/2022 12:12 EDT] ) ASIA ROCA OTR/L - 02/26/2022 12:12 EDT History and Environment, OT Living Situation, Therapy : Home Patient Lives With : Alone Persons Assisting Patient at Home : Child/Children Home Equipment, Therapy : Shower Equipment, Walker, Wheelchair Ramp : Yes ASIA ROCA OTR/L - 02/26/2022 12:12 EDT Prior LOF Bathing, OT : Independent Prior LOF Bed Mobility : Independent Prior LOF Upper Body Dressing, OT : Independent Prior LOF Lower Body Dressing, OT : Independent Prior LOF Toileting : Independent Prior LOF Transfer : Independent Prior LOF Grooming, OT : Independent Prior LOF for IADLs, OT : Independent ASIA ROCA OTR/L - 02/26/2022 12:12 EDT Prior LOF Assist with ADL Comment : Client transfers bed to wheelchair (uses arms to scoot back into the w/c from the bed). Has ostomy bag for bowel care, was independent with management. ASIA ROCA OTR/L - 02/26/2022 12:12 EDT Upper Extremity Upper Extremity Dominance : Right Right UE Active ROM : WFL Right UE Strength : Impaired Left UE Active ROM : WFL Left UE Strength : Impaired ASIA ROCA OTR/L - 02/26/2022 12:12 EDT Cognition Assessment, OT Orientation : Oriented x 4 ASIA ROCA BREONNACarlyle/[place] - 02/26/2022 12:12 EDT Indication Assessment, OT Occupational Therapy Indicated : Yes Problem List, OT : Impaired, activities daily living, Impaired, endurance tolerance, Impaired functional mobility, Impaired, strength ASIA ROCA OTCarlyle/[place] - 02/26/2022 12:12 EDT Plan of Care, OT OT Tx Plan/Goals Established w Patient : Yes OT Frequency Rehab : Four days per week OT Duration Rehab : Fourteen days OT Treatments Planned : Activities of daily living, Functional mobility training, Therapeutic activities, Therapeutic exercises ASIA ROCA BREONNACarlyle/[place] - 02/26/2022 12:12 EDT Rn Trauma Goals, OT Other LTG Grid Goal #1 [...] 03/12/2022 EDT 03/12/2022 EDT Goal Status : Initial goal Initial goal Initial goal ASIA ROCA BREONNACarlyle/[place] - 02/26/2022 12:12 EDT ASIA ROCABREONNACarlyle/[place] - 02/26/2022 12:12 EDT ASIA ROCA BREONNACarlyle/[place] - 02/26/2022 12:12 EDT Treatment Note Patient's Response to Treatment : HIgh flow nasal canula 35% FIO2. No adverse event. Client fatigued after activity. Additional Objective Information : Client drowsy during session but with good participation. Completed arm exercises with theraband and with resistance provided by therapist, able to move in all planed. Therapist left 2 types of theraband and a handout for exercises, with instructions for patient to complete throughout the day. No mobility attempted this date, deferred by PT. Assessment : Client may benefit from OT services while inpatient to increase participation in ADLs, fx mobility and return to living independently in accessible appartment, transfering to wheelchair independently. May require rehab due to weakness. JOANNE ROCAORLANDO VÁSQUEZ/[place] - 02/26/2022 12:12 EDT Pain Assessment Pain Scaled Used : 0-10 Pain scale Pain Score Pre-Intervention : 0 ASIA ROCA OTR/[place] - 02/26/2022 12:12 EDT Image 1 - Images currently included in the form version of this document have not been included in the text rendition version of the form. [place] OT Charges OT Ther Activities Ea 15 Min : 2 OT Eval Moderate Complexity : 1 ASIA ROCA OTR/[place] - 02/26/2022 12:12 EDT Electronically signed by Sumaya [facility] Conversion Siebel Architect Cerner at 12/21/2022 5:08 PM CDT documented in this encounter Plan of Treatment Not on file documented as of this encounter Visit Diagnoses Not on filedocumented in this encounter
--- OUTSIDE RECORDS SUMMARY | 2025-02-21 13:40 | XMS_ITS | Encounter Summary ---
Author Organization [employer] Address [address] [place] [address] Care Team Providers Care Swimming Pool Plasterer Helper Name Role Phone Unavailable Primary Care Provider Unavailabl e Encounter Details Date Type Department Care Team (Late st Contact Info) Description 03/06/2022 Transcribed Document [facility] [place] Family Medicine [address] [place] [address] ProviderFlorentino MD [address] [place] [address] Social History Tobacco Use Types Packs/Day Years Used Date Smoking Tobacco: Never Assessed Comments Unknown Sex and Gender Information Value Date Recorded Sex Assigned at Not on file Legal Sex Female 1:44 PM CDT Gender Identity Not on file Sexual Orientation Not on file documented as of this encounter Miscellaneous Notes * Cerner Conversion Note - Historical ProviderMD - 03/06/2022 5:00 PM CDT Chart Check - Review Order Profile Entered On: 03/06/2022 18:21 EDT Performed On: 03/06/2022 17:00 EDT by Jose Harris RN Chart Check Powerplans Initiated/Discontinued as Appropriate : Yes All Active Orders Reviewed : Yes Jose Harris RN - 03/06/2022 18:21 EDT Electronically signed by Bruce Shell Conversion Real Estate Management Specialist Cerner at 12/21/2022 5:01 PM CDT documented in this encounter Plan of Treatment Not on file documented as of this encounter Visit Diagnoses Not on filedocumented in this encounter
--- OUTSIDE RECORDS SUMMARY | 2025-02-21 13:40 | XMS_ITS | Encounter Summary ---
Author Organization [employer] Address [address] [place] [address] Care Team Providers Care Cloth Examiner Name Role Phone Unavailable Primary Care Provider Unavailabl e Encounter Details Date Type Department Care Team (Late st Contact Info) Description 03/07/2022 Transcribed Document [facility] [place] [facility] [place] [address] ProviderFlorentino MD [address] [place] [address] Social History Tobacco Use Types Packs/Day Years Used Date Smoking Tobacco: Never Assessed Comments Unknown Sex and Gender Information Value Date Recorded Sex Assigned at Not on file Legal Sex Female 1:44 PM CDT Gender Identity Not on file Sexual Orientation Not on file documented as of this encounter Miscellaneous Notes * Cerner Conversion Note - Florentino Lynne MD - 03/07/2022 9:30 AM CDT [facility] Inpatient Documentation Entered On: 03/07/2022 13:12 EDT Performed On: 03/07/2022 9:30 EDT by Edwina Fraire LPN-LVN-Enterstomal Andres WOCN Admission Date : Admit Date 03/01/2022 17:[address] : No diagnoses found. Reason for WOCN Visit : Assessment, ongoing, Dressing change Admitting Diagnosis ST : Reason for Admission ACUTE RESP FAILURE WOCN Assessment Summary : Wound care team consulted to manage NPWT. Wound care meat service team member at bedsdc epatient on sport surface. Wound care meat service team member removed old dressing 1 pc black foam cleansed wound with saline wound wash, pat dry and draped place 2 pc angel foam and draped. Veraflo operating properly at this time. Patient tolerated dressing change well. WEB KNITTER at bedside to assist with turning patient. If any changes in skin integrity please consult wound care dept. Fraire, Edwina, GZP-FND-Iadbrhjkljq Therapy - 03/07/2022 13:00 EDT Wound & Pressure Ulcer WOCN Wound Pressure Ulcer Documentation : Pressure Ulcer Assessment: Hip Left on 03/07/2022 09:30 by Edwina Fraire LPNHDF-JHK-Rgoafhcbiqo Therapy Present on Adm to Hosp: Yes Stage: Stage 3 Device Related: Unknown Dressing Status: Intact Dressing Activity: Dressing changed Date of Dressing Change: [id number]:[id number]:0:0 Wound Bed Description: Granulation (beefy red) Wound Edge: Attached Surrounding Tissue: Intact Length: 14.0 Width: 7.0 Depth: 2.0 Drainage Amount: Minimal Drainage Description: Serosanguineous Photographed: Yes Cleansing/Irrigation: Wound cleanser Skin Treatment: Barrier film Dressing Type/Treatment: NPWT NPWT (PU) Activity: Dressing changed NPWT (PU) Device used: VeraFlo Type of Foam or Gauze Removed (PU): Black Foam Number of Black Foam Removed (PU): 1 Type of Foam or Gauze Applied (PU): Other: angel Number of Other Pieces Applied (PU): 2 Number of TRAC Pads Applied (PU): 1 NPWT (PU) Pressure: Instill irrigation NPWT (PU) Irrigant Solution Type: NS NPWT (PU) Irrigant Instilled: 30 NPWT (PU) Irrigant Dwell Time: 2 NPWT (PU) Irrigant Frequency: 2 NPWT (PU) Pressure Settin NPWT (PU) Canister Changed: No WOCN Ostomy Documentation : No ostomy assessments reported. Edwina Fraire LPN-SQZ-HYW-Chkxpjomkli Therapy - 03/07/2022 13:00 EDT documented in this encounter Plan of Treatment Not on file documented as of this encounter Visit Diagnoses Not on filedocumented in this encounter
--- OUTSIDE RECORDS SUMMARY | 2025-02-21 13:40 | XMS_ITS | Encounter Summary ---
Author Organization [employer] Address [address] [place] [address] Care Team Providers Care Rn Lpn Lvn Name Role Phone Unavailable Primary Care Provider Unavailabl e Encounter Details Date Type Department Care Team (Late st Contact Info) Description 03/06/2022 Transcribed Document [facility] [place] Family Medicine [facility] [place] [address] ProviderFlorentino MD [facility] [place] [address] Social History Tobacco Use Types Packs/Day Years Used Date Smoking Tobacco: Never Assessed Comments Unknown Sex and Gender Information Value Date Recorded Sex Assigned at Not on file Legal Sex Female 1:44 PM CDT Gender Identity Not on file Sexual Orientation Not on file documented as of this encounter Miscellaneous Notes * Cerner Conversion Note - Florentino Lynne MD - 03/06/2022 11:58 AM CDT Patient: ALYSSA AZUL Age: 61 years Sex: Female : 1960 Associated Diagnoses: None Author: JAMILAH GEORGES MD Basic Information Pulmonary/CCM Date of Admission: 03/01/22 Date of Consultation: 03/01/22 Referring Provider: Elaine Ramires MD ([facility] [place]) Reason for Consultation: Ventilator/CCM CC: Unobtainable History of Present Illness: This is a 61-year-old female with underlying medical history including paraplegia, CKD, stage III, T2DM, and HTN. At time of evaluation, patient is intubated, sedated, and on ventilator support and both son and vfakerpv-hz-apn are present at bedside to give some medical background; therefore, history and hospital course is primarily retrieved from them and through medical chart review. In summary, patient was admitted to [facility] on 02/17/22 with symptoms including dyspnea, fever, [...] sodium trending up 149 spoke to the buggyman will start patient on tube feeds will [...] pt on SBT. CXR ordered, currently pending. Intake & Output Totals Last 24 Hours (7a-7a) Intake (80 Events) Continuous Infusions (1256.25 mL) Medications (353.69 mL) Enteral Additional Water Given (650 mL) Enteral Feeding Amount (250 mL) Output (2 Events) Valenzuela Catheter (1550 mL) Input Total: 2509.94 mL Output Total: 1550 mL Balance: 959.94 mL Review of Systems Unable to obtain [...] 4 mg, IV Push, Q6H, PRN: Nausea Zosyn: 3.375 Gram, IV Piggyback, Q8HInt calcium gluconate: 1 Gram, [...] Tab, Oral, At Bedtime, 0 Refill(s), Medications (36) Active Scheduled: (10) acetylcysteine 20% [...] inj 3mL Scale C, SubCutaneous, Q6H piperacillin-tazobactam 3.375 Gram, IV Piggyback, Q8HInt senna 8.8 [...] History of obstructive sleep apnea / IMO [id number] / Confirmed, Active Problems (5) Chronic kidney disease (CKD), stage III (moderate) Diabetes History of obstructive sleep apnea Hyperlipidemia Hypertension Physical Examination VS/Measurements Vitals Signs (last 24 hrs) Last Charted Minimum Maximum Temp 99.0 (MAR 06 08:00) 98.5 (MAR 06 04:00) 99.0 (MAR 06 08:00) Mon HR 79 (MAR 06 11:11) 61 (MAR 06 02:00) 102 (MAR 06 06:02) Resp Rate 17 (MAR 06 11:11) 14 (MAR 06 05:00) H 33 (MAR 05 18:00) SBP H 151 (MAR 06 09:00) 116 (MAR 06 04:00) H 198 (MAR 06 02:00) DBP 73 (MAR 06 09:00) L 59 (MAR 06 04:00) H 92 (MAR 05 16:00) MAP 102 (MAR 06 09:00) 81 (MAR 06 04:00) 126 (MAR 06 02:00) SpO2 99 (MAR 06 11:11) 95 (MAR 06 00:00) 100 (MAR 05 15:48) Intake & Output Totals Last 24 Hours (7a-7a) Intake (80 Events) Continuous Infusions (1256.25 mL) Medications (353.69 mL) Enteral Additional Water Given (650 mL) Enteral Feeding Amount (250 mL) Output (2 Events) Valenzuela Catheter (1550 mL) Input Total: 2509.94 mL Output Total: 1550 mL Balance: 959.94 mL General: Sedated on the ventilator. Eye: [...] 2.1 (MAR 04) L 2.2 (MAR 03) . Radiology Results (Last 48 hours) [id number] -- 03/01/2022 17:45 CR Chest 1 Vw [...] Baseline paraplegia Baseline mentation not observed Renal Xhucz-rv-ZFL -- improving Electrolyte abnormalities Hyperchloremia Endocrine T2DM Glycemic control Hematology/Oncology Leukocytosis Plan: Vent bundle. Wean FiO2, for goal saturation >90%. Daily spontaneous awakening trial spontaneous breathing trial CXR ordered, currently pending. Status post bronchoscopy on 03/05. Bronchial washing cx negative so far. Ultrasound reported trace pleural effusion significant atelectasis. Sedation: On low-dose Fentanyl. Titrate to RASS [...] Nutrition: Case has been discussed with the buggyman, currently on tube feeds, trophic feeding advance to goal. Corpak in place. GI prophylaxis: Pepcid. VTE prophylaxis: Heparin SQ CODE STATUS: Full Code Disposition: ICU on 03/03, 10:45 AM. Family meeting: I spoke to the son and the yxodygkf-tx-xzc at the bedside explained the findings of [...] high complexity of decision making for assessment. 33 minutes critical care time excluding procedures. Electronically signed by Sumaya, [facility] Conversion Manager Pricing Cerner at 12/21/2022 5:01 PM CDT documented in this encounter Plan of Treatment Not on file documented as of this encounter Visit Diagnoses Not on filedocumented in this encounter
--- OUTSIDE RECORDS SUMMARY | 2025-02-21 13:40 | XMS_ITS | Encounter Summary ---
Author Organization [employer] Address [address] [place] [address] Care Team Providers Care Newspaper Journalist Name Role Phone Unavailable Primary Care Provider Unavailabl e Encounter Details Date Type Department Care Team (Late st Contact Info) Description 04/23/2022 Transcribed Document [facility] [place] Family Medicine [address] [place] [address] ProviderFlorentino MD [address] [place] [address] Social History Tobacco Use Types Packs/Day Years Used Date Smoking Tobacco: Never Assessed Comments Unknown Sex and Gender Information Value Date Recorded Sex Assigned at Not on file Legal Sex Female 1:44 PM CDT Gender Identity Not on file Sexual Orientation Not on file documented as of this encounter Miscellaneous Notes * Cerner Conversion Note - Florentino ProviderMD - 04/23/2022 5:00 AM CDT Chart Check - Review Order Profile Entered On: 04/23/2022 6:31 EDT Performed On: 04/23/2022 5:00 EDT by Dulce [place] RN Chart Check Powerplans Initiated/Discontinued as Appropriate : Yes All Active Orders Reviewed : Yes Dulce [place] RN - 04/23/2022 6:31 EDT Electronically signed by Bruce Shell Conversion Television Schedule Coordinator Cerner at 12/21/2022 5:05 PM CDT documented in this encounter Plan of Treatment Not on file documented as of this encounter Visit Diagnoses Not on filedocumented in this encounter
--- OUTSIDE RECORDS SUMMARY | 2025-02-21 13:40 | XMS_ITS | Encounter Summary ---
Author Organization [employer] Address [address] [place] [address] Care Team Providers Care Oven Drier Tender Name Role Phone Unavailable Primary Care Provider Unavailabl e Encounter Details Date Type Department Care Team (Late st Contact Info) Description 03/05/2022 Transcribed Document [facility] Family Medicine [address] [place] [address] ProviderFlorentino MD [address] [place] [address] Social History Tobacco Use Types Packs/Day Years Used Date Smoking Tobacco: Never Assessed Comments Unknown Sex and Gender Information Value Date Recorded Sex Assigned at Not on file Legal Sex Female 1:44 PM CDT Gender Identity Not on file Sexual Orientation Not on file documented as of this encounter Miscellaneous Notes * Cerner Conversion Note - Florentino ProviderMD - 03/05/2022 3:29 PM CDT Patient: ALYSSA AZUL Age: 61 Years Sex: Female : 1960 Subjective DOS 03/05/2022 Seen and examined at bedside in ICU. intubated. following commands Vital Signs T: 37.1 ??C TMIN: 36.9 ??C TMAX: 37.2 ??C HR: 81(Monitored) RR: 18 BP: 160/74 SpO2: 97% Oxygen Settings (Last) Oxygen Therapy Mode: Mechanical ventilation (03/05/22 11:40:00) Intake & Output Totals Last 24 Hours (7a-7a) Input Total: 712.12 mL Output Total: 2125 mL Balance: -1412.88 mL Physical Exam General: No acute distress, [...] appreciated- recommend wound care consult - d/w pot holder binder today- wound vac applied on 02/24 pneumonia [...] the patient due to divert status. Summary [facility] stay: patient admitted to [facility] on 02/17/22, temp in ER [...] necrosis. no pathology sent. Patient transferred to [facility] at midnight on 02/22. 02/22: extubated, given [...] pulm, ID follwoing. repeat labs and monitor Disposition: critically ill, in ICU, high risk and complexity patient pending consultants' recommendations, discharge is uncertain at this time VTE Prophylaxis - Medical Heparin 5,000 Units, SubCutaneous, Inj, Q8H, Routine, Start 03/01/22 22:00:00 EDT, 03/01/22 19:01:00 EDT (GENI ORTIZ) Sequential Compression Device Start: 03/01/22 19:03:00 EDT, Bilateral, Length: Knee High, While patient is in bed, [facility] Sequential Compression Device Start: 03/01/22 18:51:00 EDT, Bilateral, Length: Knee High, While patient is in bed, Continuous Order [facility]IC) Medications calcium gluconate, 1 Gram= 100 [...] RT_Q6H, PRN fentaNYL injection 2,000 mcg + D5W Premix Diluent 100 mL glucagon, 1 mg= [...] Test Name Test Result Date/Time pH Art 7.37 03/05/2022 10:43 EDT pCO2 Art 32.7 mmHg (Low) 03/05/2022 10:43 EDT pO2 Art 125.0 mmHg (High) 03/05/2022 10:43 EDT HCO3 Art 18.9 mmol/L (Low) 03/05/2022 10:43 EDT BE Art -5.8 mmol/L (Low) 03/05/2022 10:43 EDT sO2 Art >99.4 % 03/05/2022 10:43 EDT tHb Art 7.7 Gram/dL (Low) 03/05/2022 10:43 EDT FHHb <2.4 % 03/05/2022 10:43 EDT FIO2 Art 40 03/05/2022 10:43 EDT Delivery Device Type Art Ventilator 03/05/2022 10:43 EDT Temperature, F Art 98.6 Deg F 03/05/2022 10:43 EDT Art Blood Gas (ABG) Site Arterial Line 03/05/2022 10:43 EDT Acceptable Huang's Test Art Non-Applicablea 03/05/2022 10:43 EDT Ventilator Mode Art AC 03/05/2022 10:43 EDT Tidal Volume Set Art 400.0 mL 03/05/2022 10:43 EDT Set Rate Art 16.0 03/05/2022 10:43 EDT Respiratory Rate Art 16.0 03/05/2022 10:43 EDT CPAP/PEEP Art 5.0 cmH2O 03/05/2022 10:43 EDT Comment Art supine 03/05/2022 10:43 EDT ABG Num of Draw Attempts 1 03/05/2022 10:43 EDT PaO2/FiO2 calculated 312 03/05/2022 10:43 EDT Sodium Level 149 mmol/L (High) 03/05/2022 04:50 EDT Potassium Level 3.8 mmol/L 03/05/2022 04:50 EDT Chloride Level 118 mmol/L (High) 03/05/2022 04:50 EDT Carbon Dioxide Level 21 mmol/L 03/05/2022 04:50 EDT Anion Gap 14 03/05/2022 04:50 EDT Glucose Level 123 mg/dL (High) 03/05/2022 04:50 EDT Blood Urea Nitrogen 37 mg/dL (High) 03/05/2022 04:50 EDT Creatinine Level 2.20 mg/dL (High) 03/05/2022 04:50 EDT eGFR 28 mL/min/1.73m2 (Low) 03/05/2022 04:50 EDT eGFR NonAfrican 23 mL/min/1.73m2 (Low) 03/05/2022 04:50 EDT Bun/Creatinine 16.8 03/05/2022 04:50 EDT Calcium Level 8.3 mg/dL (Low) 03/05/2022 04:50 EDT Protein Total 6.8 Gram/dL 03/05/2022 04:50 EDT Albumin Level 2.8 Gram/dL (Low) 03/05/2022 04:50 EDT Globulin 4.0 Gram/dL 03/05/2022 04:50 EDT A/G Ratio 0.7 (Low) 03/05/2022 04:50 EDT Bilirubin Total 0.7 mg/dL 03/05/2022 04:50 EDT Alk Phos 48 Units/Liter 03/05/2022 04:50 EDT AST 14 Units/Liter 03/05/2022 04:50 EDT ALT 15 Units/Liter 03/05/2022 04:50 EDT Device Comment 1 Notified Nurse RBV 03/05/2022 11:56 EDT Device Comment 1 Protocols Followed 03/05/2022 06:46 EDT Device Comment 1 Protocols Followed 03/05/2022 00:11 EDT Device Comment 1 No action Require 03/04/2022 17:48 EDT Glucose POC2 123 mg/dL (High) 03/05/2022 11:56 EDT Glucose POC2 123 mg/dL (High) 03/05/2022 06:46 EDT Glucose POC2 113 mg/dL (High) 03/05/2022 00:11 EDT Glucose POC2 121 mg/dL (High) 03/04/2022 17:48 EDT Folate Level 11.10 ng/mL 03/05/2022 12:37 EDT WBC 5.7 K/uL 03/05/2022 04:50 EDT RBC 2.58 Million/uL (Low) 03/05/2022 04:50 EDT Hgb 7.2 g/dL (Low) 03/05/2022 04:50 EDT Hct 23.7 % (Low) 03/05/2022 04:50 EDT MCV 91.9 fL 03/05/2022 04:50 EDT MCH 27.9 pg 03/05/2022 04:50 EDT MCHC 30.4 Gram/dL (Low) 03/05/2022 04:50 EDT Platelet Count 124 K/uL (Low) 03/05/2022 04:50 EDT MPV 10.8 fL 03/05/2022 04:50 EDT RDW 15.0 % (High) 03/05/2022 04:50 EDT Neut % 80.6 % (High) 03/05/2022 04:50 EDT Neut # 4.57 K/uL 03/05/2022 04:50 EDT Lymph % 9.9 % (Low) 03/05/2022 04:50 EDT Lymph # 0.56 x10(3)/uL (Low) 03/05/2022 04:50 EDT Sequoyah % 5.8 % 03/05/2022 04:50 EDT Sequoyah # 0.33 K/uL 03/05/2022 04:50 EDT Eos % 1.8 % 03/05/2022 04:50 EDT Eos # 0.10 x10(3)/uL 03/05/2022 04:50 EDT Baso % 0.5 % 03/05/2022 04:50 EDT Baso # 0.03 x10(3)/uL 03/05/2022 04:50 EDT Slide Review No 03/05/2022 04:50 EDT IG# 0.08 x10(3)/uL (High) 03/05/2022 04:50 EDT IG% 1.40 % (High) 03/05/2022 04:50 EDT Iron Level 23 mcg/dL (Low) 03/05/2022 12:37 EDT % Iron Saturation 14.6 % (Low) 03/05/2022 12:37 EDT Ferritin Level 173.5 ng/mL 03/05/2022 12:37 EDT TIBC 157.0 mcg/dL (Low) 03/05/2022 12:37 EDT [1] Hospitalist Progress Note - SOAP; Elaine Ramires, PHYSICIAN-CLINIC 03/04/2022 10:28 EDT documented in this encounter Plan of Treatment Not on file documented as of this encounter Visit Diagnoses Not on filedocumented in this encounter
--- OUTSIDE RECORDS SUMMARY | 2025-02-21 13:40 | XMS_ITS | Encounter Summary ---
Author Organization [employer] Address [address] [place] [address] Care Team Providers Care Digital Sales Planner Name Role Phone Unavailable Primary Care Provider Unavailabl e Encounter Details Date Type Department Care Team (Late st Contact Info) Description 03/05/2022 Transcribed Document [facility] [place] [address] ProviderFlorentino MD [address] [place] [address] Social History Tobacco Use Types Packs/Day Years Used Date Smoking Tobacco: Never Assessed Comments Unknown Sex and Gender Information Value Date Recorded Sex Assigned at Not on file Legal Sex Female 1:44 PM CDT Gender Identity Not on file Sexual Orientation Not on file documented as of this encounter Miscellaneous Notes * Cerner Conversion Note - Florentino Lynne MD - 03/05/2022 10:12 AM CDT Patient: ALYSSA AZUL Age: 61 years Sex: Female : 1960 Associated Diagnoses: None Author: PEÑA VAZQUEZ MD-INF Antibiotics: Zosyn CC: Sacral wound HPI: 02/22/22: Consult[place] [facility]: 61 yo female with hx of paraplegia, diabetes, HTN and obesity. Presented to [facility] with complaints of fevers and chills for 1 week prior to admission. Diagnosed with pneumonia and left gluteal wound. Underwent superficial I&D x2 and then suffered a cardiac arrest on 02/20. She was intubated and started on vasopressors. Per family at bedside she had additional operative I&D at local hospital after cardiac arrest. Treated with vancomycin and zosyn. Transferred to [facility] on 02/22 for higher level of care. She arrived intubated, sedated and on vasopressors. Since arrival she has been extubated to BiPAP, 35%. Weaned off vasopressors. T max 99.6. Family member at bedside. Follow by Dr. Pedro Mitchell at [facility] from 02/22-02/23. Dr. Gama Encinas resumed care at [facility] from 02/24 to 03/01 when she was transferred to [facility]. 03/02/22: Transfer to [facility] with initial hospital visit by Dr. Peña Vazquez: In summary, Patient was admitted to [facility] on 02/17 for suspected pneumonia and debridement of left buttock DTI. On 02/21 she had cardiac arrest and was emergently intubated. She was transferred to [facility] on 02/22 for higher level of care. She was extubated on 02/22 and re-intubated later that day. She was extubated again on 02/25, but failed BiPAP on 03/01 and was re-intubated. She was being treated by Dr. Gama Encinas for suspected aspiration pneumonia and left gluteal wound infection with Zosyn. She was transferred to [facility] on 03/01 for pulmonology coverage. The patient [...] PICC line (was present on admission to [facility] on 02/22 and likely placed at OSH) [...] Unable to confirm Social History: lives in [place] Objective: Vitals Signs (last 24 hrs) Last [...] (MAR 05 08:05) 100 (MAR 04 11:15) PE: General: Patient sedated on mechanical ventilation [...] 2.2 (MAR 03) L 2.3 (MAR 02) MICRO: Outside BAL with gram-negative diplococci IMAGING: Radiology Results (Last 48 hours) [id number] -- 03/01/2022 17:45 CR Chest 1 Vw [...] electronically signed by MD Thai IMPRESSION: - Right perihilar consolidation suspect aspiration pneumonia now with second reintubation - Large left gluteal soft tissue infection, ulceration, necrosis, to level of soft tissue: Status post I&D x3 at [facility]. - Acute hypoxic respiratory failure: Pneumonia & edema - Aspiration pneumonia: clear evidence of aspiration - Pulmonary edema - Cardiac arrest at outside hospital prior to transfer to [facility] - Metabolic acidosis: improved - Acute kidney [...] poor to fair Klebsiella in sputum, CXR better to me today Electronically signed by Sumaya [facility] Conversion Sample Grader Cerner at 12/21/2022 4:59 PM CDT documented in this encounter Plan of Treatment Not on file documented as of this encounter Visit Diagnoses Not on filedocumented in this encounter
--- OUTSIDE RECORDS SUMMARY | 2025-02-21 13:40 | XMS_ITS | Encounter Summary ---
Author Organization [employer] Address [address] [place] [address] Care Team Providers Care Motor Patrol Operator Name Role Phone Unavailable Primary Care Provider Unavailabl e Encounter Details Date Type Department Care Team (Late st Contact Info) Description 03/07/2022 Transcribed Document [facility] [place] [address] [place] [address] ProviderFlorentino MD [address] [place] [address] Social History Tobacco Use Types Packs/Day Years Used Date Smoking Tobacco: Never Assessed Comments Unknown Sex and Gender Information Value Date Recorded Sex Assigned at Not on file Legal Sex Female 1:44 PM CDT Gender Identity Not on file Sexual Orientation Not on file documented as of this encounter Miscellaneous Notes * Cerner Conversion Note - Historical ProviderMD - 03/07/2022 5:10 AM CDT Event Note Entered On: 03/07/2022 5:10 EDT Performed On: 03/07/2022 5:10 EDT by TRINIDAD LANDIS, PRIMO Event Note Event Date/Time : 03/07/2022 5:10 EDT Description of Event : Placed on SBT 04/04 per ELENA Bolton DANIELLE, RN - 03/07/2022 5:10 EDT Electronically signed by Sumaya [facility] Conversion Freezer Person Cerner at 12/21/2022 5:11 PM CDT documented in this encounter Plan of Treatment Not on file documented as of this encounter Visit Diagnoses Not on filedocumented in this encounter
--- OUTSIDE RECORDS SUMMARY | 2025-02-21 13:40 | XMS_ITS | Encounter Summary ---
Author Organization [employer] Address [address] [place] [address] Care Team Providers Care Laborer Road Name Role Phone Unavailable Primary Care Provider Unavailabl e Encounter Details Date Type Department Care Team (Late st Contact Info) Description 05/01/2022 Transcribed Document [facility] Radiology [address] [place] [address] Melinda Sherwood MD [address] [place] [address] [address] Social History Tobacco Use Types Packs/Day Years Used Date Smoking Tobacco: Never Assessed Comments Unknown Sex and Gender Information Value Date Recorded Sex Assigned at Not on file Legal Sex Female 1:44 PM CDT Gender Identity Not on file Sexual Orientation Not on file documented as of this encounter Miscellaneous Notes * Cerner Conversion Note - Melinda Sherwood MD - 05/01/2022 11:57 AM EDT Patient: ALYSSA AZUL Age: 62 years Sex: Female : 1960 Associated Diagnoses: None Author: MELINDA SHERWOOD MD-INT Subjective Patient feeling better today. No fever or chills. No family at the bedside Review of Systems Constitutional: Weakness, Fatigue, No [...] Oral, BID Afia-Q: 1 Cap, Oral, BID [place] 5 mg-325 mg oral tablet: 1 Tab, Oral, Q6H, PRN: Pain (Moderate 4-6) PRAVAstatin: 40 mg, Oral, At Bedtime Pepcid: 20 mg, Oral, At Bedtime Sodium Chloride 0.9% intravenous solution 1,000 mL: 100 mL/Hr, IntraVENous Vitamin C: 500 mg, Oral, BID Zyvox: 600 mg, 300 mL, 300 mL/Hr, IV Piggyback, [id number] acetaminophen: 650 mg, Oral, Q6H, PRN: Pain (Mild 1-3) cefepime + Sodium Chloride 0.9% intravenous solution 50 mL: 1 Gram, 100 mL/Hr, IV Piggyback, [id number] ferrous sulfate: 325 mg, Oral, TID With [...] micafungin: 100 mg, 100 mL/Hr, IV Piggyback, [id number] Documented Medications Documented Farxiga 10 mg oral [...] 0.9% 50 mL 1 Gram, IV Piggyback, [id number] famotidine 20 mg tab 20 mg 1 [...] *PREMIX* 600 mg 300 mL, IV Piggyback, [id number] micafungin sodium 100 mg, IV Piggyback, [id number] omega-3 fish oil 1,000 mg cap 2,000 [...] Problem list: Medical Diabetes / SNOMED CT [id number] / Confirmed History of obstructive sleep apnea / IMO [id number] / Confirmed, Active Problems (6) Chronic kidney disease (CKD), stage III (moderate) Diabetes History of obstructive sleep apnea Hyperlipidemia Hypertension Paraplegia Objective VS/Measurements Vitals Signs (last 24 hrs) Last Charted Minimum Maximum Temp 98.2 (MAY 01 08:00) 97.8 (MAY 01 02:11) 98.6 (APR 30 19:52) Mon HR 94 (MAY 01 09:13) 77 (MAY 01 02:11) 94 (MAY 01 09:13) Resp Rate 18 (MAY 01 08:00) 18 (APR 30 19:52) 20 (MAY 01 05:05) SBP 132 (MAY 01 08:03) 117 (MAY 01 02:11) H 144 (APR 30 19:52) DBP 70 (MAY 01 08:03) 68 (APR 30 19:52) 78 (MAY 01 05:05) MAP 93 (MAY 01 08:03) 81 (MAY 01 02:11) 99 (APR 30 19:52) SpO2 98 (MAY 01 09:13) L 92 (APR 30 19:52) 100 (MAY 01 05:05) General: Alert and oriented, No acute distress. [...] mood & affect. Review / Management MAY 01 05:32 140 H 116 22 / H 158 4.5 21 1.00 \ MAY 01 05:32 \ L 7.6 / L 4.4 357 / L 24.6 \ No Radiology Results Found Results review: [...] from Previous Midnight to Current New Medications: ascorbic acid (Vitamin C) 500 mg, Oral, Tab, BID, Routine, Start 04/30/22 10:27:00 EDT, 04/30/22 10:27:00 EDT MELINDA SHERWOOD MD-INT ferrous sulfate 325 mg, Oral, EC Tab, TID With Meals, Routine, Start 05/01/22 11:30:00 EDT, 05/01/22 9:10:00 EDT MELINDA SHERWOOD MD-INT povidone iodine topical (Betadine 10% topical solution) 1 Application, Topical, Liquid, BID, Routine, Start 04/30/22 11:56:00 EDT MELINDA SHERWOOD MD-INT povidone iodine topical (Betadine 10% topical solution) 1 Application, Topical, Liquid, BID, Routine, Start 04/30/22 11:56:00 EDT MELINDA SHERWOOD MD-INT povidone iodine topical (Betadine 10% topical solution) 1 Application, Topical, Liquid, BID, Routine, Start 04/30/22 11:56:00 EDT MELINDA SHERWOOD MD-INT Discontinued Medications: ferrous sulfate 325 mg, Oral, EC Tab, BID, Start 04/29/22 11:39:00 EDT MELINDA SHERWOOD MD-INT Impression and Plan Sepsis presented on admission. Hypotension and lactic acidosis. Likely due to recurrent urinary tract infection. Follow-up cultures Continue broad-spectrum IV antibiotics. ID consulted. Recurrent urinary tract infection. Recently admitted with septic shock due to Pseudomonas and E. coli UTI Appreciate ID recommendations. Started on cefepime, Zyvox and IV micafungin PICC line Acute on chronic kidney failure. Gentle hydration. Recently started on CRRT/dialysis Avoid nephrotoxic medications. Completely resolved Large decubitus ulcer presented on admission. Continue [...]
--- OUTSIDE RECORDS SUMMARY | 2025-02-21 13:40 | XMS_ITS | Encounter Summary ---
Author Organization [employer] Address [address] [place] [address] Care Team Providers Care Hl7 Interface Developer Name Role Phone Unavailable Primary Care Provider Unavailabl e Encounter Details Date Type Department Care Team (Late st Contact Info) Description 04/11/2022 Transcribed Document [facility] [place] [address] [place] [address] ProviderFlorentino MD [address] [place] [address] Social History Tobacco Use Types Packs/Day Years Used Date Smoking Tobacco: Never Assessed Comments Unknown Sex and Gender Information Value Date Recorded Sex Assigned at Not on file Legal Sex Female 1:44 PM CDT Gender Identity Not on file Sexual Orientation Not on file documented as of this encounter Miscellaneous Notes * Cerner Conversion Note - Florentino ProviderMD - 04/11/2022 9:42 PM CDT Pain Assessment Entered On: 04/21/2022 4:03 EDT Performed On: 04/20/2022 22:52 EDT by Dulce Dallas RN Intervention Information: acetaminophen Performed by Dulce Dallas RN on 04/20/2022 21:52:00 EDT acetaminophen,650mg Oral,Temperature Pain Assessment Pain Assessment : Follow-up assessment Pain Scale Goal : 2 Pain Scale Used : 0-10 Scale Dulce Dallas RN - 04/21/2022 4:03 EDT Pain Scale Intensity : 3 Dulce Dallas RN - 04/21/2022 4:03 EDT Image 4 - Images currently included in the form version of this document have not been included in the text rendition version of the form. Electronically signed by Bruce Shell Conversion Bus Trolley And Taxi Instructor Cerner at 12/21/2022 5:10 PM CDT documented in this encounter Plan of Treatment Not on file documented as of this encounter Visit Diagnoses Not on filedocumented in this encounter
--- OUTSIDE RECORDS SUMMARY | 2025-02-21 13:40 | XMS_ITS | Encounter Summary ---
Author Organization [employer] Address [address] [place] [address] Care Team Providers Care Regulatory Product Manager Name Role Phone Unavailable Primary Care Provider Unavailabl e Encounter Details Date Type Department Care Team (Late st Contact Info) Description 03/06/2022 Transcribed Document [facility] [place] [facility] [address] ProviderFlorentino MD [place] [address] Social History Tobacco Use Types Packs/Day Years Used Date Smoking Tobacco: Never Assessed Comments Unknown Sex and Gender Information Value Date Recorded Sex Assigned at Not on file Legal Sex Female 1:44 PM CDT Gender Identity Not on file Sexual Orientation Not on file documented as of this encounter Miscellaneous Notes * Cerner Conversion Note - Florentino Lynne MD - 03/06/2022 3:00 AM CDT Nutrition Assessment Entered On: 03/06/2022 10:33 EDT Performed On: 03/06/2022 10:31 EDT by Giovanna Zambrano Dietitian Nutrition Assessment Nutrition Assessment Reason : Follow Up Giovanna Zambrano Dietitian - 03/06/2022 10:31 EDT Current Nutrition Regimen Comment : 03/06: High f/up. Pt remains intubated and sedated. s/p bronch yesterday. Corpak placed yesterday and in duodenal bulb. TF running @ 30 ml/hr during visit, slowly advancing to goal. No issues reported per RN. 03/03: Consults received for PU + MST (due to unsure wt loss). Pt tx [place] [facility] [place] (due to no pulmonary coverage currently at that facility). Pt reintubated 03/01. Sedated on propofol/fentanyl. Noted plan for SBT today. If fails, then plan for corpak placement. Renal following- no RESIDENTIAL MONITOR at this time. Stg 2 noted to sacrum. Noted 3kg wt loss since admission to [facility] (not significant). Prior to reintubation on 03/01, pt was averaging 48% of PO diet. Dx: cardiopulmonary arrest, acute respiratory failure, sepsis/septic shock, ARF PMH: paraplegia, hyperlipidemia, DM, Labs: Na 147, Cl 117, Glu 165, BUN 33, Cr 2.1, Alb 2.9, FSBG 151/126/123, PLT 124 Meds: docusate, pepcid, heparin, glargine, senna, abx Drips: fentanyl, D5 @ 60 ml/hr (245 kcal) GI: active BS, +NGT (at GE, may need replacement), +Corpak (duodenal bulb), LBM 03/05 Skin: stg 3 vs 4 PU to L hip + NPWT Diet: NPO EN: Vital HP @ 30 ml/hr currently (goal @ 55 ml/hr) Ht: 64 in Wt: 207#/94.2 kg (admit), no new wt (02/27), 91.5 kg (03/03), 94.2 kg (03/06) IBW (adjusted for paraplegia): 50.4 kg (186%) BMI (inaccurate due to paraplegia): 35.6 Est Needs: 5773-9318 kcals (11-14 kcals/kg), ~100 g pro (>2 g pro/kg IBW) Giovanna Zambrano Dietitian - 03/06/2022 10:33 EDT Nutrition Diagnoses Oral or Nutrition Support [...] Active Increased Nutrient Needs Comment : protein Giovanna Zambrano Dietitian - 03/06/2022 10:31 EDT Nutrition Interventions Enteral/Parenteral Nutrition : Continue current enteral nutrition regimen Giovanna Zambrano Dietitian - 03/06/2022 10:31 EDT Monitoring/Evaluation Energy Intake : Total energy intake Enteral Nutrition Intake : Formula/Solution, Feeding tube flush, Tube Feeding Tolerance Protein Intake : Total protein Weight Status : Weight Maintanence Gastrointestinal Function : Bowel Function Integumentary : Pressure Ulcer Status Giovnana Zambrano Dietitian - 03/06/2022 10:31 EDT Nutrition Recommendations Dietitian Recommendations : 1. Continue advancing Vital HP to goal @ 55 ml/hr (provides 1210 kcal and 106 g protein). FW per MD Goal: meet est needs 2. If extubated, then rec DOOR WORKER eval (Cardiac, 60 g CHO diet with ONS prn) Goal: safe swallow, intakes > 50% 3. Monitor e-lytes, replace prn Goal: WNLs 4. Monitor FSBS, adjust insulin prn Goal: glucose 140-180 5. Monitor wt 1x/week Goal: no significant wt loss Risk- High Nutrition Care Level : High Giovanna Zambrano Dietitian - 03/06/2022 10:31 EDT documented in this encounter Plan of Treatment Not on file documented as of this encounter Visit Diagnoses Not on filedocumented in this encounter
--- OUTSIDE RECORDS SUMMARY | 2025-02-21 13:41 | XMS_ITS | Encounter Summary ---
Author Organization [employer] Address [address] [place] [address] Care Team Providers Care Sas Administrator Name Role Phone Unavailable Primary Care Provider Unavailabl e Encounter Details Date Type Department Care Team (Late st Contact Info) Description 04/11/2022 Transcribed Document [facility] [place] Family Medicine [address] [place] [address] ProviderFlorentino MD [address] [place], [place] [id number] Social History Tobacco Use Types Packs/Day Years Used Date Smoking Tobacco: Never Assessed Comments Unknown Sex and Gender Information Value Date Recorded Sex Assigned at Not on file Legal Sex Female 1:44 PM CDT Gender Identity Not on file Sexual Orientation Not on file documented as of this encounter Miscellaneous Notes * Cerner Conversion Note - Historical ProviderMD - 04/11/2022 2:40 PM CDT Spiritual Care Short Form Entered On: 04/11/2022 15:02 EDT Performed On: 04/11/2022 14:40 EDT by MARYBEL ROCHE General Information, Spiritual Care Intervention/Comment/Summary Points : Routine visit; Provided pastoral presence, reflective listening, and pastoral prayer; Ms. Azul and [id number] expressed gratitude MARYBEL ROCHE - 04/11/2022 15:01 EDT documented in this encounter Plan of Treatment Not on file documented as of this encounter Visit Diagnoses Not on filedocumented in this encounter
--- OUTSIDE RECORDS SUMMARY | 2025-02-21 13:41 | XMS_ITS | Encounter Summary ---
Author Organization [email or web address] Address [address] [place] [address] Care Team Providers Care Demolition Expert Name Role Phone Unavailable Primary Care Provider Unavailabl e Encounter Details Date Type Department Care Team (Late st Contact Info) Description 05/06/2022 Transcribed Document [facility] [place] Family Medicine [address] [place] [address] ProviderFlorentino MD [address] [place] [address] Social History Tobacco Use Types Packs/Day Years Used Date Smoking Tobacco: Never Assessed Comments Unknown Sex and Gender Information Value Date Recorded Sex Assigned at Not on file Legal Sex Female 1:44 PM CDT Gender Identity Not on file Sexual Orientation Not on file documented as of this encounter Miscellaneous Notes * Cerner Conversion Note - Florentino Lynne MD - 05/06/2022 9:45 PM CDT Patient: ALYSSA AZUL Age: 62 years Sex: Female : 1960 Associated Diagnoses: None Author: HIGINIO AREVALO MD-INF Antibiotics: Zyvox cefepime and micafungin CC fevers Subjective: Patient without acute changes over the weekend remains afebrile elevated blood pressure Objective: Vitals Signs (last [...] recurrent UTI with sepsis improved with antibiotics plans for 48 more hours of antibiotics then discharge to home RECOMMENDATIONS/PLANS: Continue cefepime 1 g IV every 12 hours through 05/08/2022 Continue micafungin 100 mg IV daily through 05/08/2022 Zyvox to 600 p.o. twice daily for 05/08/2022 Plans for discharge to home after completion of antibiotics documented in this encounter Plan of Treatment Not on file documented as of this encounter Visit Diagnoses Not on filedocumented in this encounter
--- OUTSIDE RECORDS SUMMARY | 2025-02-21 13:41 | XMS_ITS | Encounter Summary ---
Author Organization [employer] Address [address] [place] [address] Care Team Providers Care Or Scrub Tech Name Role Phone Unavailable Primary Care Provider Unavailabl e Encounter Details Date Type Department Care Team (Late st Contact Info) Description 04/22/2022 Transcribed Document [facility] [place] Family Medicine [address] [place] [address] ProviderFlorentino MD [address] [place] [address] Social History Tobacco Use Types Packs/Day Years Used Date Smoking Tobacco: Never Assessed Comments Unknown Sex and Gender Information Value Date Recorded Sex Assigned at Not on file Legal Sex Female 1:44 PM CDT Gender Identity Not on file Sexual Orientation Not on file documented as of this encounter Miscellaneous Notes * Cerner Conversion Note - Florentino Lynne MD - 04/22/2022 8:34 PM CDT Patient: ALYSSA AZUL Age: 61 years Sex: Female : 1960 Associated Diagnoses: None Author: HIGINIO AREVALO MD-INF Antibiotics: meropenem CC: Sacral wound Subjective: Patient with low-grade fever stable on antibiotics looking for placement still elevated heart rate and blood pressure no new changes overnight Objective: Vitals Signs (last 24 hrs) Last Charted Minimum Maximum Temp 99.6 (APR 22 15:30) 97.8 (APR 22 02:30) H 100.7 (APR 21 22:00) Mon HR 91 (APR 22 15:30) 90 (APR 22 04:48) 108 (APR 21 22:00) Resp Rate 17 (APR 22 06:15) 17 (APR 22 02:00) 18 (AUG 22 22:00) SBP H 149 (APR 22 15:30) 130 (APR 22 06:15) H 176 (APR 21:00) DBP 80 (APR 22 15:30) 78 (APR 22 02:30) H 96 (APR 21:00) MAP 94 (APR 22 15:30) 94 (APR 22 15:30) 137 (APR 21 22:00) SpO2 94 (APR 22 06:15) 94 (APR 21:00) 100 (APR 22 02:30) PE: General: alert, oriented x3 HEENT: sclera [...] alert fevers resolved and no crrt and molder machine stable. Platelets are stable continue on broad-spectrum [...] normal white blood cell count and CRP down to 0.87 RECOMMENDATIONS/PLANS: -Continue meropenem at current dose through 2022 to complete therapy -Looking for placement -Labs in a.m. CBC CMP CRP documented in this encounter Plan of Treatment Not on file documented as of this encounter Visit Diagnoses Not on filedocumented in this encounter
--- OUTSIDE RECORDS SUMMARY | 2025-02-21 13:41 | XMS_ITS | Encounter Summary ---
Author Organization [employer] Address [address] [place] [address] Care Team Providers Care Assistant Professor Of Economics Name Role Phone Unavailable Primary Care Provider Unavailabl e Encounter Details Date Type Department Care Team (Late st Contact Info) Description 04/22/2022 Transcribed Document [facility] Family Medicine [address] [place] [address] ProviderFlorentino MD [address] [place] [address] Social History Tobacco Use Types Packs/Day Years Used Date Smoking Tobacco: Never Assessed Comments Unknown Sex and Gender Information Value Date Recorded Sex Assigned at Not on file Legal Sex Female 1:44 PM CDT Gender Identity Not on file Sexual Orientation Not on file documented as of this encounter Miscellaneous Notes * Cerner Conversion Note - Historical ProviderMD - 04/22/2022 2:00 AM CDT Marketing Associate Details Entered On: 04/22/2022 6:17 EDT Performed On: 04/22/2022 2:00 EDT by Dulce Dallas RN Order Details Transport Mode Order Detail : Bed (including specialty) Isolation Precautions Order Detail : Standard Precautions Order Detail : 0 IV Order Detail : 1 Oxygen Order Detail : 0 Nurse Collect Order Detail : 0 Lift/Transfer : Maximal assist Central Line Order Detail : Yes Room Service : Appropriate Arterial Line : Yes Patient Needs Meds Crushed/Liquid : No Dulce Dallas RN - 04/22/2022 6:17 EDT documented in this encounter Plan of Treatment Not on file documented as of this encounter Visit Diagnoses Not on filedocumented in this encounter
--- OUTSIDE RECORDS SUMMARY | 2025-02-21 13:41 | XMS_ITS | Encounter Summary ---
Author Organization [employer] Address [address] [place] [address] Care Team Providers Care Price Clerk Name Role Phone Unavailable Primary Care Provider Unavailabl e Encounter Details Date Type Department Care Team (Late st Contact Info) Description 02/22/2022 Transcribed Document [facility] Family Medicine [address] [place] [address] ProviderFlorentino MD [address] [place] [address] Social History Tobacco Use Types Packs/Day Years Used Date Smoking Tobacco: Never Assessed Comments Unknown Sex and Gender Information Value Date Recorded Sex Assigned at Not on file Legal Sex Female 1:44 PM CDT Gender Identity Not on file Sexual Orientation Not on file documented as of this encounter Miscellaneous Notes * Cerner Conversion Note - Historical ProviderMD - 02/22/2022 10:34 PM CDT Suicide Risk Screen Entered On: 02/22/2022 23:32 EDT Performed On: 02/22/2022 22:34 EDT by Junie Dorsey Rn Flex II Suicide Risk Screen Tried to Harm Yourself in the Past? : Unable to obtain Thoughts of Harming/Killing Yourself : Unable to obtain Junie Dorsey Rn Flex II - 02/22/2022 23:31 EDT documented in this encounter Plan of Treatment Not on file documented as of this encounter Visit Diagnoses Not on filedocumented in this encounter
--- OUTSIDE RECORDS SUMMARY | 2025-02-21 13:41 | XMS_ITS | Encounter Summary ---
Author Organization [employer] Address [address] [place] [address] Care Team Providers Care Jewelry Maker Name Role Phone Unavailable Primary Care Provider Unavailabl e Encounter Details Date Type Department Care Team (Late st Contact Info) Description 04/11/2022 Transcribed Document [facility] [place] [address] [place] [address] ProviderFlorentino MD [address] [place] [address] Social History Tobacco Use Types Packs/Day Years Used Date Smoking Tobacco: Never Assessed Comments Unknown Sex and Gender Information Value Date Recorded Sex Assigned at Not on file Legal Sex Female 1:44 PM CDT Gender Identity Not on file Sexual Orientation Not on file documented as of this encounter Miscellaneous Notes * Sohaner Conversion Note - Florentino Lynne MD - 04/11/2022 2:28 PM CDT Patient Resource Center Entered On: 04/11/2022 14:29 EDT Performed On: 04/11/2022 14:28 EDT by Reyna Beavers, QUILT STUFFER Patient Resource Center Provider Status : EST Other Established Provider Name : Reji Cabello Patient Phone Number : [phone] Patient Insurance Type : Medicaid (ex. Well[employer], Passport) Source of Referral : Patient recently visited- No need to visit patient- No new updates Location of Patient : Emergency department Primary Care Scheduled : No Specialty Care Scheduled : No Qualify for Diabetes and/or Nutrition Referral : No Wound Care Appointment Made : No Why Patient Visited ED- Specialty spent : Other How Patient Arrived at ED : Other Primary Language : [place] Patient Resource Center Comment : no pcp ed lsit 04/11/22, pt has pcp Follow Up Needed : No Reyna Beavers, QUILT STUFFER - 04/11/2022 14:28 EDT Electronically signed by Sum[facility] Conversion Assistant To The President Cerner at 12/21/2022 5:03 PM CDT documented in this encounter Plan of Treatment Not on file documented as of this encounter Visit Diagnoses Not on filedocumented in this encounter
--- OUTSIDE RECORDS SUMMARY | 2025-02-21 13:41 | XMS_ITS | Encounter Summary ---
Author Organization [employer] Address [address] [place] [address] Care Team Providers Care Crna Name Role Phone Unavailable Primary Care Provider Unavailabl e Encounter Details Date Type Department Care Team (Late st Contact Info) Description 04/24/2022 Transcribed Document [facility] [facility] [place] [address] ProviderFlorentino MD [address] [place] [address] Social History Tobacco Use Types Packs/Day Years Used Date Smoking Tobacco: Never Assessed Comments Unknown Sex and Gender Information Value Date Recorded Sex Assigned at Not on file Legal Sex Female 1:44 PM CDT Gender Identity Not on file Sexual Orientation Not on file documented as of this encounter Miscellaneous Notes * Cerner Conversion Note - Historical ProviderMD - 04/24/2022 11:05 AM CDT Attempt to Treat, PT Entered On: 04/24/2022 11:14 EDT Performed On: 04/24/2022 11:05 EDT by KAREN DE LUNA PT Attempt to Treat Unable to Treat Due To : Other: Addressing paperwork for procurring a new w/c Inability to Treat Comment : The patient was evaluated by [employer] for a new w/c while at [place] but the forms were signed off on by a BUTADIENE CONVERTOR OPERATOR. A BUTADIENE CONVERTOR OPERATOR's signature is not acceptable. The patient is reported to need the w/c in order to return home. [employer] was (Comment: to fax paperwork that was anticiapted to have been the orginal fitting information their automobile contract clerk determined. Instead they faxed blank paperwork requiring a whole new seating evaluation which PT here is not competent to complete. PT returned the blank paperwork to case management with the request that they ask [employer] to send the orginal fitting paperwork for PT's review for any significant changes in which case it is felt PT here could sign-off. Otherwise, [employer] will need to send an automobile contract clerk out for a whole new fitting with PT can then approve.Time spent between 900 and 1112 was 25 minutes [KAREN DE LUNA, PT - 04/24/2022 11:05 EDT] ) Notification : case management Dorys Williamson, KAREN MATHIS, PT - 04/24/2022 11:05 EDT documented in this encounter Plan of Treatment Not on file documented as of this encounter Visit Diagnoses Not on filedocumented in this encounter
--- OUTSIDE RECORDS SUMMARY | 2025-02-21 13:41 | XMS_ITS | Encounter Summary ---
Author Organization [employer] Address [address] [place] [address] Care Team Providers Care Woven Blind Loom Tender Name Role Phone Unavailable Primary Care Provider Unavailabl e Encounter Details Date Type Department Care Team (Late st Contact Info) Description 02/22/2022 Transcribed Document [facility] [place] Family Medicine [address] [place] [address] ProviderFlorentino MD [address] [place] [address] Social History Tobacco Use Types Packs/Day Years Used Date Smoking Tobacco: Never Assessed Comments Unknown Sex and Gender Information Value Date Recorded Sex Assigned at Not on file Legal Sex Female 1:44 PM CDT Gender Identity Not on file Sexual Orientation Not on file documented as of this encounter Miscellaneous Notes * Cerner Conversion Note - Florentino Lynne MD - 02/22/2022 4:45 PM CDT Rapid Response Team Documentation Entered On: 02/22/2022 16:45 EDT Performed On: 02/22/2022 16:45 EDT by DAYDAY KING RN Rapid Response Event Rapid Response Event Intiated By : Hospital Staff Rapid Response Event Location Type : Critical Care Rapid Response Team Initiation Reason Details : obtained blood sample per RN request Rapid Response Admission Diagnosis : Acute kidney failure, unspecified Cardiac arrest, cause unspecified 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 Pneumonia, unspecified organism Severe sepsis with septic shock Rapid Response Medical Background : No qualifying problems Rapid Response Allergies : Substance Category Reactions Severity No Known Allergies Drug Rapid Response Recent Vital Signs : 02/22/2022 14:45 Systolic Blood Pressure 126 02/22/2022 14:45 Diastolic Blood Pressure 76 02/22/2022 16:37 Heart Rate Monitored 87 02/22/2022 16:37 Respiratory Rate 39 02/22/2022 12:00 Temperature, Fahrenheit 99.6 02/22/2022 16:37 Oxygen Saturation 95 Rapid Response Recent Lab Results : 02/22/2022 04:00 Sodium Level 146 (136-146) 02/22/2022 04:00 Potassium Level 4.4 (3.5-5.1) 02/22/2022 08:21 Calcium Ionized LOW 0.97 (1.12-1.32) 02/22/2022 04:00 Calcium Level LOW 6.8 (8.5-10.1) 02/22/2022 08:21 Magnesium Level 2.2 (1.5-2.4) 02/22/2022 16:24 Glucose POC2 HI 426 (70-110) 02/22/2022 04:00 Chloride Level HI 120 (102-112) 02/22/2022 04:00 Carbon Dioxide Level LOW 12 (21-32) 02/22/2022 04:00 Blood Urea Nitrogen HI 50 (7-22) 02/22/2022 04:00 Creatinine Level HI 2.83 (0.55-1.02) 02/22/2022 08:21 Hgb LOW 8.1 (11.2-15.7) 02/22/2022 08:21 Hct LOW 26.0 (34.1-44.9) 02/22/2022 04:00 RBC LOW 2.54 (3.93-5.22) 02/22/2022 04:00 WBC 8.9 (3.9-10.0) 02/22/2022 04:00 Platelet Count 218 (163-369) 02/22/2022 08:21 Lactic Acid Level 0.7 (0.4-2.0) 02/22/2022 15:32 pH Art LOW 7.29 (7.35-7.45) 02/22/2022 15:32 pCO2 Art 37.2 (35.0-45.0) 02/22/2022 15:32 pO2 Art 92.1 (80.0-100.0) 02/22/2022 15:32 HCO3 Art LOW 17.3 (20.0-26.0) 02/22/2022 15:32 BE Art LOW -8.1 (-2.0-2.0) 02/22/2022 15:32 sO2 Art 96.8 (95.0-100.0) Weight/BMI : Clinical Weight/BMI CLINICALWEIGHT: 94.2 kg (02/22/22 00:58:00) CLINICALWEIGHT: 94.2 kg (02/22/22 00:20:00) Body Mass Index: 35.6 kg/m2 High (02/22/22 00:58:00) Body Mass Index: 35.6 kg/m2 High (02/22/22 00:20:00) DAYDAY KING RN - 02/22/2022 16:45 EDT documented in this encounter Plan of Treatment Not on file documented as of this encounter Visit Diagnoses Not on filedocumented in this encounter
--- OUTSIDE RECORDS SUMMARY | 2025-02-21 13:41 | XMS_ITS | Encounter Summary ---
Author Organization [employer] [facility] Address [address] [place] [address] Care Team Providers Care Pearl Fisherman Name Role Phone Unavailable Primary Care Provider Unavailabl e Encounter Details Date Type Department Care Team (Late st Contact Info) Description 04/11/2022 Transcribed Document [facility] [place] [address] [place] [address] ProviderFlorentino MD [address] [place] [address] Social History Tobacco Use Types Packs/Day Years Used Date Smoking Tobacco: Never Assessed Comments Unknown Sex and Gender Information Value Date Recorded Sex Assigned at Not on file Legal Sex Female 1:44 PM CDT Gender Identity Not on file Sexual Orientation Not on file documented as of this encounter Miscellaneous Notes * Cerner Conversion Note - Florentino Lynne MD - 04/11/2022 9:09 AM CDT On Going Discharge Planning Entered On: 04/11/2022 9:13 EDT Performed On: 04/11/2022 9:09 EDT by SHERIF PAYNE, RN-Fire ChiefParking Line Painter Progress Note Discharge Arrangements : Patient Post-Acute Information Patient Name: ALYSSA AZUL Gender: Female : [birth year] Age: 61 Years No Post-Acute Placement(s) Listed No Post-Acute Service(s) Listed No [place] Referral(s) Listed Discharge Options Discussed with Patient : Home Health, residential Patient Discharge Goal : [facility] facility SHERIF PAYNE, RN-Fire Chief - 04/11/2022 9:09 EDT Narrative Progress Note Narrative Progress Note : HD# 3. elos: 5. rar: high acute hypoxic resp failure. severe sepsis: shock. campos/ckd. acute pancreatitis. diabetes. paraplegia. covid 19: negative 8-9. extubated 8-11. 02 4L nc. crrt. levophed gtt. bicarb gtt. zyvox/merrem/micafungin iv. wound vac: left trochanter. APS following: Aimee Payne, . dcp: family decline return to [place]. they hope she will improve to dc home with them in [place]. not ltac candidate at this time due to crrt. FREDO, son, legal next of kin: [phone] Divine, daughter in law: [phone] Historical Progress Note : late entry for this am. Aimee Payne, kyra social media project manager was on site this am. she spoke with clover Bowen rn, interviewed pt's son and spoke with Ms. azul who was awake on ventilator. she left number for claudia Groves sound to call her at Yaneli's convenience. provided medical records as requested. SHERIF PAYNE, RN-Fire Chief - 04/10/22 15:40:22 HD# 2. elos: 5. rar: high acute hypoxic resp failure. severe sepsis: shock. campos/ckd. acute pancreatitis. diabetes. paraplegia. covid 19: negative 8-9. following commads. mechanical ventilation. crrt. fentanyl gtt. insulin gtt. levophed gtt. evaluation Dr Abraham, trailer sections assembler. see her notes. no vaginal laceration. return call from Gayathri Pimentel, . she contacted lorrie Cohen for [place], [facility] with family concerns. [phone]. APS accepted case: [id number]. dcp: family decline return to [facility]. they hope she will improve to dc home with them in [place]. spoke with Monique Groves PA, sound attending. clover Bowen RN. SHERIF PAYNE, RN-Fire Chief - 04/10/22 09:41:02 received email from aps. they have accepted & will assign to social media project manager. SHERIF PAYNE RN-Fire Chief - 04/09/22 15:19:44 APS reported filed. [id number]. spoke with Andrés, bedside rn, Amber, munitions factory worker & Mary, guest house manager. SHERIF PAYNE, RN-Fire Chief - 04/09/22 12:07:07 SHERIF PAYNE, RN-Fire Chief - 04/11/2022 9:09 EDT documented in this encounter Plan of Treatment Not on file documented as of this encounter Visit Diagnoses Not on filedocumented in this encounter
--- OUTSIDE RECORDS SUMMARY | 2025-02-21 13:41 | XMS_ITS | Encounter Summary ---
Author Organization [employer] Address [address] [place] [address] Care Team Providers Care Reinsurance Analyst Name Role Phone Unavailable Primary Care Provider Unavailabl e Encounter Details Date Type Department Care Team (Late st Contact Info) Description 04/24/2022 Transcribed Document [facility] [place] [facility] [address] [place] [address] ProviderFlorentino MD [address] [place] [address] Social History Tobacco Use Types Packs/Day Years Used Date Smoking Tobacco: Never Assessed Comments Unknown Sex and Gender Information Value Date Recorded Sex Assigned at Not on file Legal Sex Female 1:44 PM CDT Gender Identity Not on file Sexual Orientation Not on file documented as of this encounter Miscellaneous Notes * Cerner Conversion Note - Florentino Lynne MD - 04/24/2022 2:50 PM CDT UM Authorization Entered On: 04/24/2022 14:52 EDT Performed On: 04/24/2022 14:50 EDT by Digna Kidd Rn-Utilization Review Primary Insurance Authorization Authorization and Policy Numbers : Insurance 1 Health Plan: MEDICAID [facility] Policy Number: [id number] Authorization Number: Insurance 2 Health Plan: [facility] Policy Number: [id number] Authorization Number: Insurance Primary Name : [facility] - [id number] Authorization Status-Primary : Denied Reference Number-Primary : [id number]--[place] Medicaid #[id number] Number of Days Authorized-Primary : 13 Day(s) Authorized Service Begin Date-Primary : 04/08/2022 EDT Authorized Service End Date-Primary : 04/21/2022 EDT Authorization Comments-Primary : PER JOAQUIN @ [facility] THE MANAGERS ARE REQUESTING CLINICAL UPDATE THEY FEEL THEY WILL BE RESPONSIBLE FOR THIS BILL Historical Authorization Comments-Primary : Comment 1: Information,verified by placing a call to [place] Medicaid. Per the claim representative spoken to, Keila Lassiter, the care provided to this patient will be technically denied due to late notification,since the patient was admitted on 04/08/2022 and coverage with [place] Medicaid, was initiated on 03/20/2022. She further stated that the reference number provided (#[id number]) is not for billing purpose ([address]pi [address], PRIMO 04/18/2022 11:13) Comment 2: CALL RECEIVED ROM ELIZA /francheska AETNA MESSAGE LEFT STATING THAT PT IS NO LONGER AN AETNA MEMBER EFFECTIVE 03/29/2022, THEREFOR THE APPROVAL GRANTED HAS BEEN RESENDED. PER ELIZA PT IS NOW STRAIGHT MEDICAID. (Shilpi [address], PRIMO 04/18/2022 09:48) Comment 3: Rec faxed outcome of p2p scanned it to denials 2021 file and placed in tray on [employer] desk (SHERIF LYNCH, Sailor 04/16/2022 09:42) Comment 4: Per fax received 04/16 @ 0914am approved after p2p completed. Approved 04/08-04/21 NRD 04/22 (SARAH MORALES RN 04/16/2022 09:32) Comment 5: CLINICAL UPDATE FAXED VIA [employer] 04/11-04/15 ([address], PRIMO 04/15/2022 16:00) Comment 6: Per call to [facility] p2p line Luisa stated p2p took place yes04/14 and denial was OT/approved. Luisa did not have any idea regarding when c/s would be due. left for rate reviewer Sharon. (SARAH MORALES RN 04/15/2022 12:15) Comment 7: Per Dr Perez she is agreeable to attempt p2p on Saturday 04/14. Called Logan back and he scheduled for thursday @ 2pm with Dr William calling Dr Cabello. (SARAH MORALES RN 04/11/2022 11:09) Comment 8: Per Katie she did not receive a call to complete this p2p. Called back in & per Orville he can reschedule with a physician. Informed him that I would need to reach out to a diff physician as the one from yesterday is off service now. He stated I can call back in and reschedule. (SARAH MORALES RN 04/11/2022 10:30) Comment 9: Katie agreed to attempt p2p. Scheduled for 04/[address] William calling Katie (SARAH MORALES RN 04/09/2022 15:26) Comment 10: Message sent to Katie for p2p. She has agreed to attempt. (SARAH MORALES RN 04/09/2022 13:02) Comment 11: PER [employer] IP AUTH PENDED. CLINICAL FAXED VIA [employer] (Digna Kidd Rn-Utilization Review 04/09/2022 11:31) Comment 12: Denied per fax 04/08/22 @ 3621 no resoning noted. Placed in Denials 2021 folder. (Mallory Sanchez, Casino Assistant Manager 04/09/2022 09:43) Digna Kidd Rn-Utilization Review - 04/24/2022 14:50 EDT Electronically signed by Bruce Shell Conversion Tobacco Drying Machine Operator Cerner at 12/21/2022 5:00 PM CDT documented in this encounter Plan of Treatment Not on file documented as of this encounter Visit Diagnoses Not on filedocumented in this encounter
--- OUTSIDE RECORDS SUMMARY | 2025-02-21 13:41 | XMS_ITS | Encounter Summary ---
Author Organization [employer] Address [address] [place] [address] Care Team Providers Care Supervisor Farm Equipment Maintenance Name Role Phone Unavailable Primary Care Provider Unavailabl e Encounter Details Date Type Department Care Team (Late st Contact Info) Description 02/22/2022 Transcribed Document [facility] [place] Family Medicine [address] [place] [address] ProviderFlorentino MD [address] [place] [address] Social History Tobacco Use Types Packs/Day Years Used Date Smoking Tobacco: Never Assessed Comments Unknown Sex and Gender Information Value Date Recorded Sex Assigned at Not on file Legal Sex Female 1:44 PM CDT Gender Identity Not on file Sexual Orientation Not on file documented as of this encounter Miscellaneous Notes * Cerner Conversion Note - Florentino ProviderMD - 02/22/2022 8:13 PM CDT Event Note Entered On: 02/22/2022 20:20 EDT Performed On: 02/22/2022 20:13 EDT by Junie Dorsey Rn Flex II Event Note Event Date/Time : 02/22/2022 19:00 EDT Event Location : Assigned room Event Details : Other: intubation Description of Event : Upon arrival to my shift, Dr. Pham in the ICU and will be reintubating pt at this time. Respiratory at bedside, MD at bedside, RN x 3 at bedside. RSI kit obtained and @ 1907 Etomidate 20 mg ordered per MD. Pt intubated @1909 with 7.5 tube and 24 cm at lip line. Pt given 2 mg Versed @ 1911 per Md order from RSI kit. Pt tolerating well. At 1913, 14 Fr NG placed in Left nare @ 65. Portable chest xray done at this time. MD at bedside to read chest xray. ET tube pulled back 1 cm to 23 cm @ lip line. NG tube verified placement per daryl and and ready to use. RSI kit forms filled out and taken to pharmacy. Versed drip started per MD order. Junie Dorsey Rn Flex II - 02/22/2022 20:13 EDT documented in this encounter Plan of Treatment Not on file documented as of this encounter Visit Diagnoses Not on filedocumented in this encounter
--- OUTSIDE RECORDS SUMMARY | 2025-02-21 13:41 | XMS_ITS | Encounter Summary ---
Author Organization [employer] Address [address] [place] [address] Care Team Providers Care Surgery Nurse Name Role Phone Unavailable Primary Care Provider Unavailabl e Encounter Details Date Type Department Care Team (Late st Contact Info) Description 04/24/2022 Transcribed Document [facility] [place] Family Medicine [address] [place] [address] ProviderFlorentino MD [address] [place] [address] Social History Tobacco Use Types Packs/Day Years Used Date Smoking Tobacco: Never Assessed Comments Unknown Sex and Gender Information Value Date Recorded Sex Assigned at Not on file Legal Sex Female 1:44 PM CDT Gender Identity Not on file Sexual Orientation Not on file documented as of this encounter Miscellaneous Notes * Cerner Conversion Note - Florentino Lynne MD - 04/24/2022 11:01 AM CDT Patient: ALYSSA AZUL Age: 61 years Sex: Female : 1960 Associated Diagnoses: None Author: CHICA RAZA MD-[facility] Subjective Chief complaint. 04/24/22 awake weak no fever Health Status Allergies: [...] History of obstructive sleep apnea / IMO [id number] / Confirmed Diabetes / SNOMED CT [id number] / Confirmed, Active Problems (6) Chronic kidney disease (CKD), stage III (moderate) Diabetes History of obstructive sleep apnea Hyperlipidemia Hypertension Paraplegia Objective VS/Measurements Vitals Signs (last 24 hrs) Last Charted Minimum Maximum Temp 97.9 (APR 24 09:55) 97.9 (APR 24 09:55) 99.3 (APR 23 15:37) Mon HR 114 (APR 24 09:55) 51 (APR 23 19:44) 114 (APR 24 09:55) Resp Rate 16 (APR 24 06:00) 16 (APR 23 19:00) 16 (APR 23 19:00) SBP 122 (APR 24 09:55) 117 (APR 23 23:34) H 189 (APR 23 23:10) DBP 74 (APR 24 09:55) 61 (APR 23 19:44) H 93 (APR 23 15:37) MAP 87 (APR 24 09:55) 75 (APR 23 19:44) 127 (APR 23 15:37) SpO2 95 (APR 24 09:55) L 91 (APR 24 06:27) 100 (APR 24 03:00) General: Alert and oriented, No acute distress. Eye: Pupils are equal, round and reactive to light, Normal conjunctiva. HENT: Normocephalic, Normal hearing. Neck: Supple. Respiratory: Respirations are non-labored, Breath sounds are equal. Cardiovascular: Normal rate. Gastrointestinal: Soft, Non-tender. Integumentary: Warm. Neurologic: Alert, Oriented. Psychiatric: Cooperative, Appropriate mood & affect. Results Review APR 24 06:48 139 108 H 27 / H 119 4.9 27 H 1.40 \ APR 24 06:48 \ L 8.3 / 4.9 L 153 / L 25.7 \ APR 24 06:48 139 108 H 27 / H 119 4.9 27 H 1.40 \ APR 24 06:48 \ L 8.3 / 4.9 L 153 / L 25.7 \ Impression and Plan #Severe septic shock [...] on IV abx DW CM time spent 38 min documented in this encounter Plan of Treatment Not on file documented as of this encounter Visit Diagnoses Not on filedocumented in this encounter
--- OUTSIDE RECORDS SUMMARY | 2025-02-21 13:41 | XMS_ITS | Encounter Summary ---
Author Organization [employer] Address [address] [place] [address] Care Team Providers Care Cd Mixer Name Role Phone Unavailable Primary Care Provider Unavailabl e Encounter Details Date Type Department Care Team (Late st Contact Info) Description 02/22/2022 Transcribed Document [facility] [place] [address] [place] [address] ProviderFlorentino MD [address] [place] [address] Social History Tobacco Use Types Packs/Day Years Used Date Smoking Tobacco: Never Assessed Comments Unknown Sex and Gender Information Value Date Recorded Sex Assigned at Not on file Legal Sex Female 1:44 PM CDT Gender Identity Not on file Sexual Orientation Not on file documented as of this encounter Miscellaneous Notes * Cerner Conversion Note - Florentino Lynne MD - 02/22/2022 7:50 AM CDT Consult Phone Call Documentation Entered On: 02/22/2022 8:52 EDT Performed On: 02/22/2022 7:50 EDT by Maritza Elena, RN Phone Call for Consults Consult Phone Call/Page Attempt : First call Provider Service Notified Name : Nephrology Physician Covering for Consult : TORRES MARTINEZ MD-[facility] Maritza Elena, RN - 02/22/2022 8:51 EDT documented in this encounter Plan of Treatment Not on file documented as of this encounter Visit Diagnoses Not on filedocumented in this encounter
--- OUTSIDE RECORDS SUMMARY | 2025-02-21 13:41 | XMS_ITS | Encounter Summary ---
Author Organization [employer] Address [address] [place] [address] Care Team Providers Care Loading Checker Name Role Phone Unavailable Primary Care Provider Unavailabl e Encounter Details Date Type Department Care Team (Late st Contact Info) Description 04/24/2022 Transcribed Document [facility] [place] Family Medicine [address] [place] [address] ProviderFlorentino MD [address] [place] [address] Social History Tobacco Use Types Packs/Day Years Used Date Smoking Tobacco: Never Assessed Comments Unknown Sex and Gender Information Value Date Recorded Sex Assigned at Not on file Legal Sex Female 1:44 PM CDT Gender Identity Not on file Sexual Orientation Not on file documented as of this encounter Miscellaneous Notes * Cerner Conversion Note - Florentino Lynne MD - 04/24/2022 4:29 PM CDT On Going Discharge Planning Entered On: 04/24/2022 16:39 EDT Performed On: 04/24/2022 16:29 EDT by Adalid Castro DIGITAL CAMERA TECHNICIAN NON-EXEMPT Care Management Progress Note Discharge Arrangements : Patient Post-Acute Information Patient Name: ALYSSA AZUL Gender: Female : [birth year] Age: 61 Years No Post-Acute Placement(s) Listed No Post-Acute Service(s) Listed No [place] Referral(s) Listed Discharge Options Discussed with Patient : Home Health, [facility] Barriers to Discharge Identified : Clinical Condition of Patient Barriers to Discharge Unresolved : Clinical Condition of Patient Patient Discharge Goal : Home health care Patient Offered Choice/Affiliations Explained : Yes Adalid Castro DIGITAL CAMERA TECHNICIAN NON-EXEMPT - 04/24/2022 16:29 EDT Narrative Progress Note Narrative Progress Note : Pt will only be able to do outpatient services at [facility] Pt can't have PICC so concern about if [facility] willing to do IV abx with only peripheral IVs CM was told that alex drain was put out significant drainage & may need to revert back to wound vac Due to uncertainty of wound vs alex drain, CM has not pursued [facility] for wound care Son confirms he can take pt for care CM will try to final DC plans once alex vs wound vac determined CM will continue to follow Historical Progress Note : CM was unable to find services for pt Pt still declines [facility] offer to start percert Pt plans to go home with family Wound vac has now been changed to alex drain Son said he can transport pt to [facility] weekly for alex drain changes IV abx ends 2022 DC plan is home with family plus outpt follow up CM will continue to follow Adalid Castro, DIGITAL CAMERA TECHNICIAN NON-EXEMPT - 04/23/22 16:05:54 Pt had DC order, but too many unresolved DC issues Pt declines offer for [facility] to start precert Pt wants to DC home with son Concern is finding Outpatient wound vac changes may be problem as son & DIL work during day [employer] referral made for IV abx HH may not be secured due to insurance & area Son lives in [place], [place] Pending issues: wound vac, IV abx & HH services CM will continue to follow Adalid Castro, DIGITAL CAMERA TECHNICIAN NON-EXEMPT - 04/22/22 16:43:07 Cm spoke with [...] going to facility if it is in [place]. Cm faxed to [facility] per permission from family. CM will continue to follow. ERIK GALARZA Vp Digital Marketing Social Media And Crm-Cardiology Nurse Practitioner - 04/18/22 13:51:52 Patient has been declined by all HH agencies. CM spoke to patient is open to [facility] however, [facility] does not have an open bed [...] CM will continue to follow. ERIK GALARZA, Vp Digital Marketing Social Media And Crm-Cardiology Nurse Practitioner - 04/17/22 14:39:18 Patient requested CM speak with her daughter in law. Cm spoke with DIN who reported patient wants to discharge home with HH and DME. She will need a BSC for sure. If possible she would like to have a new CPAP as her's is old and needs replaced. Unsure of company name but maybe [employer]. Patient has all other DME. Patient does not have a preference of HH agency but wants it to be in area and with insurance. CM will continue to follow and set up DME and HH. ERIK GALARZA, Vp Digital Marketing Social Media And Crm-Cardiology Nurse Practitioner - 04/16/22 15:45:27 home health referral made to a to assist with HH placement. very few HH agencies participate with pt's insurance so wound vac may need management at wound clinic. pt may have to do outpt PT is she delines snf-swing bed-ltach. TRISTAN TAYLOR, RN-Nut Packer - 04/15/22 12:07:49 RRS HIGH, LOS 7, ELOS 5 Itbcdb-ssq-cnv-phmiszysqsyy-tzlixqwvglsy-jyanfnovu acidosis HX paraplegia since age 8 L. trochanter-- 11.0cmx6.5cmx2.0cm-current with wound vac CRRT off since 04/11-- possible catheter removal 8.16 Nmjeb3fstylfuxen-qraewrudv Pt [facility]. [facility] refuses to return to [facility] and [facility] declined to accept back. Spoke with pt and she wishes to dc home with her son. She will need HH, PT for transfers as PLOF was independent, she will need wound vac and son will provide transportation. APS following: Aimee Payne, TRISTAN TAYLOR, PRIMO-Nut Packer - 04/15/22 11:57:48 HD# 3. elos: 5. rar: high acute hypoxic resp failure. severe sepsis: shock. campos/ckd. acute pancreatitis. diabetes. paraplegia. covid 19: negative 8-9. bipap 30%/ra. zyvox/merrem/micafungin iv. wound vac: left trochanter. corpak tube feeds. PT/OT: eob. ST: cleared for diet. no dialysis. APS following: Aimee Payne, . left message with updates. dcp: family decline return to [place]. new referral [facility]. sent naveal. spoke with adm jesus albertoit coordintor. they hope she will improve to dc home with them in [place]. DJ, son, legal next of kin: [phone] Divine, daughter in law: [phone] SHERIF PAYNE, RN-Nut Packer - 04/14/22 10:45:05 HD# 3. elos: 5. rar: high acute hypoxic resp failure. severe sepsis: shock. campos/ckd. acute pancreatitis. diabetes. paraplegia. covid 19: negative 8-9. extubated 8-11. 02 4L nc. crrt. levophed gtt. bicarb gtt. zyvox/merrem/micafungin iv. wound vac: left trochanter. APS following: Aimee Kumar, . dcp: family decline return to [place]. they hope she will improve to dc home with them in [place]. not ltac candidate at this time due to crrt. DJ, son, legal next of kin: [phone] Divine, daughter in law: [phone] SHERIF PAYNE, RN-Nut Packer - 04/11/22 09:13:49 late entry for this am. Aimee Payne, aps vp digital marketing social media and crm was on site this am. she spoke with Andrés, bedside rn, interviewed pt's son and spoke with Ms. azul who was awake on ventilator. she left number for claudia Groves, edi to call her at Yaneli's convenience. provided medical records as requested. SHERIF PAYNE, RN-Nut Packer - 04/10/22 15:40:22 HD# 2. elos: 5. rar: high acute hypoxic resp failure. severe sepsis: shock. campos/ckd. acute pancreatitis. diabetes. paraplegia. covid 19: negative 8-9. following commads. mechanical ventilation. crrt. fentanyl gtt. insulin gtt. levophed gtt. evaluation Dr Abraham, finish repairer. see her notes. no vaginal laceration. return call from Gayathri Loren, . she contacted lorrie Cohen for [place], [facility], [facility] & [facility] with family concerns. [phone]. APS accepted case: [id number]. dcp: family decline return to [facility]. they hope she will improve to dc home with them in [place]. spoke with Monique Groves PA, edi attending. Andrés bedside RN. SHERIF PAYNE, RN-Nut Packer - 04/10/22 09:41:02 received email from [facility]. they have accepted & will assign to vp digital marketing social media and crm. SHERIF PAYNE, RN-Nut Packer - 04/09/22 15:19:44 APS reported filed. [id number]. [facility] Amber, community service representative & Mary warehouse worker. SHERIF PAYNE, RN-Nut Packer - 04/09/22 12:07:07 Adalid Castro, DIGITAL CAMERA TECHNICIAN NON-EXEMPT - 04/24/2022 16:29 EDT documented in this encounter Plan of Treatment Not on file documented as of this encounter Visit Diagnoses Not on filedocumented in this encounter
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
--- OUTSIDE RECORDS SUMMARY | 2025-02-21 13:41 | XMS_ITS | Encounter Summary ---
Author Organization [employer] Address [address] [place] [id number] Care Team Providers Care Receivable Clerk Name Role Phone Unavailable Primary Care Provider Nathalia martin Encounter Details Date Type Department Care Team (Late st Contact Info) Description 04/24/2022 Transcribed Document [facility] Family Medicine [address] [place] [address] ProviderFlorentino MD [address] [place] [address] Social History Tobacco Use Types Packs/Day Years Used Date Smoking Tobacco: Never Assessed Comments Unknown Sex and Gender Information Value Date Recorded Sex Assigned at Not on file Legal Sex Female 1:44 PM CDT Gender Identity Not on file Sexual Orientation Not on file documented as of this encounter Miscellaneous Notes * Cerner Conversion Note - Historical ProviderMD - 04/24/2022 2:00 AM CDT Academic Adviser Details Entered On: 04/24/2022 1:43 EDT Performed On: 04/24/2022 2:00 EDT by Alma Howell RN Order Details Transport Mode Order Detail : Bed (including specialty) Isolation Precautions Order Detail : Standard Precautions Order Detail : 0 IV Order Detail : 0 Oxygen Order Detail : 0 Nurse Collect Order Detail : 1 Lift/Transfer : Maximal assist Central Line Order Detail : Yes Room Service : Appropriate Arterial Line : No Patient Needs Meds Crushed/Liquid : No Alma Howell RN - 04/24/2022 1:43 EDT documented in this encounter Plan of Treatment Not on file documented as of this encounter Visit Diagnoses Not on filedocumented in this encounter
--- OUTSIDE RECORDS SUMMARY | 2025-02-21 13:41 | XMS_ITS | Encounter Summary ---
Author Organization [employer] Address [address] [place] [address] Care Team Providers Care Diabetes Educator Name Role Phone Unavailable Primary Care Provider Unavailabl e Encounter Details Date Type Department Care Team (Late st Contact Info) Description 04/11/2022 Transcribed Document [facility] [place] [facility] [place] [address] ProviderFlorentino MD [address] [place] [address] Social History Tobacco Use Types Packs/Day Years Used Date Smoking Tobacco: Never Assessed Comments Unknown Sex and Gender Information Value Date Recorded Sex Assigned at Not on file Legal Sex Female 1:44 PM CDT Gender Identity Not on file Sexual Orientation Not on file documented as of this encounter Miscellaneous Notes * Cerner Conversion Note - Florentino Lynne MD - 04/11/2022 12:27 PM CDT Patient: ALYSSA AZUL Age: 61 years Sex: Female : 1960 Associated Diagnoses: None Author: JAMILAH EGORGES MD Referring physician: Dr. Weiss Reason for consult: Critical care management CC: Unable to obtain Basic Information HPI: The patient is a 61 year old female with past medical history significant for paraplegia, CKD, DM, HTN, and multiple recent hospitalizations, who presented to our faciltiy on 04/08 with chief complaints of increasing confusion and fall at long-term facility. Per documentation, the patient is a [...] She was discharged from our facility to long-term facility. On 04/08, pulmonary is being asked [...] output. WBC decreased to 10 from 16.6 ICU day: 4 Vent day:3 Central line: 04/08 Review of [...] IV Push, Q15Min, PRN: Other (See Comment) NORepinephrine injection 16 mg + NaCl 0.9% for drip 250 mL: TITRATE, IntraVENous Pepcid: 20 mg, IV Push, Daily Phoxillum BK 4K/2.5 Ca bag - GREEN 5,000 mL: 1,500 mL/Hr, Miscellaneous Phoxillum BK 4K/2.5 Ca bag - PURPLE 5,000 mL: 800 mL/Hr, Miscellaneous Phoxillum BK 4K/2.5 Ca bag - WHITE 5,000 mL: 1,000 mL/Hr, Miscellaneous Zyvox: 600 mg, 300 mL, 300 mL/Hr, IV Piggyback, [id number] calcium gluconate: 1 Gram, 100 mL, 100 mL/Hr, IV Piggyback, Q1H, PRN: Other (See Comment) calcium gluconate: 2 Gram, 100 mL, 100 mL/Hr, IV Piggyback, Q1H, PRN: Other (See Comment) glucagon: 1 mg, IntraMuscular, Q15Min, PRN: Other (See Comment) glucose 4 g oral tablet, chewable: 16 Gram, 4 Tab, Chew, Q15Min, PRN: Other (See Comment) glucose 40% oral gel: 15 Gram, 37.5 mL, Oral, Q15Min, PRN: Other (See Comment) heparin: 5,000 Units, SubCutaneous, Q8H hydrocortisone: 50 mg, IV Push, Q6H insulin glargine: 10 Units, SubCutaneous, BID insulin regular sliding scale: Scale C, SubCutaneous, Q6H magnesium sulfate: 2 Gram, 50 mL, 25 mL/Hr, IV Piggyback, Q1H, PRN: Other (See Comment) meropenem + Sodium Chloride 0.9% intravenous solution 50 mL: 500 mg, 16.67 mL/Hr, IV Piggyback, [id number] micafungin: 100 mg, 100 mL/Hr, IV Piggyback, [id number] phenylephrine injection 80 mg + NaCl 0.9% for drip 250 mL: TITRATE, IntraVENous potassium chloride: 10 mEq, 50 mL, 50 mL/Hr, IV Piggyback, Q30Min, PRN: Other (See Comment) sodium phosphate + Sodium Chloride 0.9% intravenous [...] 0 Refill(s) alendronate weekly: 70 mg, Oral, Morgan, 0 Refill(s) bisoprolol 5 mg oral tablet: [...] Tab, Oral, At Bedtime, 0 Refill(s), Medications (28) Active Scheduled: (9) famotidine 20 mg/2 mL inj 20 mg 2 mL, IV Push, Daily heparin 5,000 units/1 mL inj 5,000 Units 1 mL, SubCutaneous, Q8H hydrocortisone 100 mg/2 mL inj 50 mg 1 mL, IV Push, Q6H insulin glargine 1 unit/0.01 mL inj 10 Units 0.1 mL, SubCutaneous, BID insulin regular 1 unit/0.01 mL inj 3mL Scale C, SubCutaneous, Q6H linezolid *PREMIX* 600 mg 300 mL, IV Piggyback, [id number] meropenem + NaCl 0.9% 50 mL 500 mg, IV Piggyback, [id number] micafungin sodium 100 mg, IV Piggyback, [id number] miconazole nitrate 2% pwd 85 g 1 Application, Topical, BID Continuous: (6) NORepinephrine 16 mg + NaCl 0.9% T ITRATE 250 mL 250 mL, IntraVENous phenylephrine 80 mg + NaCl 0.9% T ITRATE 250 mL 250 mL, IntraVENous Phoxillum BK 4/2.5 5,000 mL 5,000 mL, Miscellaneous, 1,000 mL/Hr Phoxillum BK 4/2.5 5,000 mL 5,000 mL, Miscellaneous, 1,500 mL/Hr Phoxillum BK 4/2.5 5,000 mL 5,000 mL, Miscellaneous, 800 mL/Hr vasopressin 40 Units [0.03 Units/min] + Dextrose 5% in Water TITRATE 100 mL 100 mL, IntraVENous, 4.5 mL/Hr PRN: (13) calcium gluconate 2 Gram 100 mL, IV [...] History of obstructive sleep apnea / IMO [id number] / Confirmed Diabetes / SNOMED CT [id number] / Confirmed, Active Problems (6) Chronic kidney disease (CKD), stage III (moderate) Diabetes History of obstructive sleep apnea Hyperlipidemia Hypertension Paraplegia Physical Examination VS/Measurements Vitals Signs (last 24 hrs) Last Charted Minimum Maximum Mon HR 49 (APR 11 11:42) 40 (APR 11 00:00) 66 (APR 10 16:30) Resp Rate H 27 (APR 11 11:42) L 13 (APR 11 03:00) H 35 (APR 10 21:30) SBP 117 (APR 11 10:45) 96 (APR 10 14:15) H 168 (APR 10 15:00) DBP 63 (APR 11 10:45) L 51 (APR 10 15:45) 75 (APR 10 15:00) MAP 79 (APR 11 10:45) 19 (APR 10 17:15) 276 (APR 10 18:00) SpO2 100 (APR 11 11:42) 97 (APR 11 03:15) 100 (APR 10 12:30) General: On 4L NC, follows commands, (paraplegic). . Eye: Pupils are equal, round and [...] Left gluteal wound vac present. Neurologic: Alert, pleasant, smiling, no neuro deficits noted, paraplegic at baseline. . Psychiatric: Unable to assess. Review / Management Results review: Labs (Last four charted values) WBC 10.0 (APR 11) H 16.6 (APR 10) H 14.0 (APR 09) C 37.5 (APR 08) HB L 6.4 (APR 11) L 7.2 (APR 10) L 7.3 (APR 09) L 6.8 (APR 09) HCT L 19.7 (APR 11) L 21.5 (APR 10) L 20.7 (APR 09) L 19.5 (APR 09) Plt L 131 (APR 11) 172 (APR 10) 190 (APR 09) 317 (APR 08) Na L 135 (APR 11) L 135 (APR 11) 138 (APR 11) 138 (APR 10) K 4.0 (APR 11) 4.0 (APR 11) 3.8 (APR 11) 4.0 (APR 10) Cl 107 (APR 11) 106 (APR 11) 107 (APR 11) 107 (APR 10) CO2 L 20 (APR 11) 23 (APR 11) 22 (APR 11) 23 (APR 10) BUN 7 (APR 11) 7 (APR 11) 8 (APR 11) 9 (APR 10) Cr 0.60 (APR 11) 0.60 (APR 11) L 0.50 (APR 11) 0.70 (APR 10) Glu R H 139 (APR 11) H 157 (APR 11) H 144 (APR 11) H 148 (APR 10) Ca L 7.4 (APR 11) L 7.6 (APR 11) L 7.6 (APR 11) L 7.7 (APR 10) Lactic 0.6 (APR 10) 1.3 (APR 10) 1.2 (APR 09) 1.3 (APR 09) PT 11.1 (APR 09) 10.5 (APR 08) INR 1.0 (APR 09) 1.0 (APR 08) AST 26 (APR 11) 25 (APR 10) 25 (APR 08) 15 (APR 08) ALT 18 (APR 11) 17 (APR 10) 18 (APR 08) 19 (APR 08) ALK P 71 (APR 11) 81 (APR 10) 81 (APR 08) 95 (APR 08) T Bili 0.6 (APR 11) 0.5 (APR 10) 0.6 (APR 08) 0.6 (APR 08) PTN L 5.9 (APR 11) L 6.0 (APR 10) 6.4 (APR 08) 8.1 (APR 08) ALB L 2.1 (APR 11) L 2.2 (APR 11) L 2.1 (APR 11) L 2.1 (APR 10) Lipase H 919 (APR 11) H 638 (APR 10) H 1965 (APR 09) H 1603 (APR 08) . APR 08 13:20 H 147 H 115 C 82 / H 295 H 5.8 L 5 H 5.40 \ APR 11 04:00 \ L 6.4 / 10.0 L 131 / L 19.7 \ Blood Gases (Current Encounter/Past 24 Hours) pH Art 7.34 LOW 04/11/2022 08:17 pCO2 Art 42.3 04/11/2022 06:59 pO2 Art 122.0 HI 04/11/2022 08:17 HCO3 Art 23.1 04/11/2022 06:59 BE Art -2.4 LOW 04/11/2022 08:18 sO2 Art 99.6 04/11/2022 06:59 tHb Art 6.6 LOW 04/11/2022 08:17 FHHb <2.4 NA 04/11/2022 06:59 ctO2 9.3 NA 04/11/2022 06:59 Delivery Device Type Art Cannula NA 04/11/2022 06:59 Temperature, F Art 98.6 NA 04/11/2022 06:59 Art Blood Gas (ABG) Site Arterial Line NA 04/11/2022 06:59 Acceptable Huang's Test Art Non-Applicable NA 04/11/2022 06:59 Ventilator Mode Art N/A NA 04/11/2022 06:59 Oxygen Flow Rate Art 4.0 NA 04/11/2022 06:59 ABG Num of Draw Attempts 1 NA 04/11/2022 06:59 Radiology Results (Last 48 hours) [id number] -- 04/08/2022 07:53 CR Chest 1 Vw Portable (04/10/2022 03:45) [...] the pylorus, but notconvincingly within the duodenum. CR Chest 1 Vw Portable (04/11/2022 03:32) Result: PORTABLE CHESTHISTORY: Renal failure, shortness of breath.COMPARISON: 04/10/2022.FINDINGS: A single portable radiograph of the chest was performed. Thepatient has been extubated. The nasogastric tube has been removed andreplaced with a Corpak feeding tube. The tip is not imaged. The heart isnormal in size. There is persistent opacity at the left lung baseconsistent with atelectasis and a small effusion. There is improvedaeration of the right lung base. There is mild vascular congestion withno edema. There is no pneumothorax.IMPRESSION:1. Extubation with improved aeration of the right lung base.2. Persistent left base opacity consistent with atelectasis/effusion.3. Mild vascular congestion without edema.Images reviewed, interpreted, dictated and electronically signed by [...] source is wound infection versus urine UTI. Echocardiogram done on 03/09/2022. EF 55%. Normal systolic function. Moderate LVH. Indeterminate diastolic function. No significant valvular heart disease. ECHO 04/08: EF 60%, normal systolic function, indeterminate diastolic function, mild aortic regurgitation ID Severe sepsis with shock with source likely wound vs urine-improving. Leukocytosis Recent Klebsiella pneumonia Left gluteal decub ulcer requiring previous debridement, now with wound vac Wound culture +GNR Urine culture +GNR Neuro Baseline paraplegia CT head: no acute intracranial [...] Hematology/Oncology Leukocytosis Anemia Metformin toxicity. Acute metabolic encephalopathy-improving. Plan Extubated on 04/10, Currently on 4L NC, 97% NIPPV for breaks/increased WOB and HS Hemodynamics: On levo only for MAP > 65. ---weaned off Antibiotics per ID: Merrem, Zyvox, and Micafungin Fludro/Hydrocortisone X 7 days Pneumonia PCR negative Sputum culture pending-unable to collect MRSA negative, ? stop Zyvox Blood cultures--NGTD Urine culture +GNR Wound culture +GNR Nephrology following On CRRT Restart Bicarb gtt @50mL/hr. will DC today. Nutrition: Currently NPO, start TF @10mL/hr via NG, place corpak post-pyloric and advance as tolerated Replace calcium Monitor hemoglobin. Transfuse for hemoglobin <7.0. --6.4 today; Will receive 1 unit PRBC Glycemic control: on insulin gtt. Glucose 140-180 mg/dL, off insulin gtt. Start Lantus 10units BID and SSI Prophylaxis: Pepcid, Heparin SQ PT/OT to see Speech evaluation Chest x-ray reviewed independently left lower lobe atelectasis no pleural effusion. Bedside ultrasound was used to evaluate for any pleural effusion, results mostly atelectasis with trace effusion. Spoke with the exhibits coordinator and hopefully will DC CRRT today. AM labs and imaging Case discussed with nurse, nurse practitioner, global cto, during multidisciplinary round today. I have personally [...]
--- OUTSIDE RECORDS SUMMARY | 2025-02-21 13:41 | XMS_ITS | Encounter Summary ---
Author Organization [employer] Address [address] [place] [address] Care Team Providers Care Brush Cutter Name Role Phone Unavailable Primary Care Provider Unavailabl e Encounter Details Date Type Department Care Team (Late st Contact Info) Description 04/22/2022 Transcribed Document [facility] [place] Family Medicine [address] [place] [address] ProviderFlorentino MD [address] [place] [address] Social History Tobacco Use Types Packs/Day Years Used Date Smoking Tobacco: Never Assessed Comments Unknown Sex and Gender Information Value Date Recorded Sex Assigned at Not on file Legal Sex Female 1:44 PM CDT Gender Identity Not on file Sexual Orientation Not on file documented as of this encounter Miscellaneous Notes * Cerner Conversion Note - Florentino Lynne MD - 04/22/2022 10:57 AM CDT Patient: ALYSSA AZUL Age: 61 Years Sex: Female : 1960 Admit Date 04/08/2022 07:53 Discharge Date No Discharge Date on Record Primary Care Provider PAUL LUNA MD Discharge Diagnosis Fall 04/08/2022 W19.XXXA ICD-10-CM Altered mental status 04/08/2022 R41.82 ICD-10-CM Sepsis 04/08/2022 A41.9 ICD-10-CM Metabolic acidosis 04/08/2022 E87.2 ICD-10-CM ARF (acute renal failure) 04/08/2022 N17.9 ICD-10-CM Hyperkalemia 04/08/2022 E87.5 ICD-10-CM Pancreatitis 04/08/2022 K85.90 ICD-10-CM Acute UTI 04/08/2022 N39.0 ICD-10-CM 1. Severe sepsis/septic shock. 2. Infected decubitus ulcer. 3. Urinary tract infection. 4. Acute hypoxic respiratory failure. 5. Acute renal failure. 6. History of chronic kidney disease. 7. Hypertension. 8. Altered mental status/acute encephalopathy. 9. Pancreatitis. 10. Chronic hydronephrosis. 11. Left gluteal decubitus ulcer. 12. Acute on chronic anemia. 13. Bradycardia. 14. Diabetes mellitus. 15. Obesity. 16. Paraplegia. 17. Bed-bound. 18. Hypertension. Hospital Course Ms. azul is a 61-year-old female with paraplegia, diabetes. She was admitted to [facility] in February with acute hypoxic respiratory failure after cardiac arrest, severe sepsis due to pneumonia and significant decubitus wounds. She was discharged to a SNF. She returned on 04/08 and was in severe septic shock with acute hypoxic respiratory failure, acute renal failure with hyperkalemia and anion gap metabolic acidosis. She was intubated on 04/08. CT scan with trace right effusion. Pulmonary was consulted. Pneumonia PCR negative. Eventually extubated on 04/10 and has been weaned to room air. Pulmonary signed off 04/14. She had severe septic shock and was on vasopressors as well as dose steroids. These were weaned off/stopped on 04/11. Sources include gluteal wound and UTI. Infectious disease followed along and managed her antibiotics. Her acute renal failure was accompanied by hyperkalemia and severe anion gap metabolic acidosis and oliguria. Nephrology was consulted and she was started on CRRT via temporary dialysis catheter on 04/08. Fortunately this was able to be stopped on 04/11. Nephrology continues to follow along in case she needs to have HD again. She had an elevated lipase on admission but no changes consistent with pancreas on the CT scan. She denies abdominal pain. Encephalopathy on admission multifactorial, this has resolved. She has chronic hydronephrosis and urology evaluated her here; no intervention necessary at this time. Wound care was consulted and managed her left gluteal decubitus ulcer which she had the wound VAC on the last hospitalization. [facility] she had injury to her vaginal area. Gynecology evaluated her and noted edematous right labia minora/bleeding. Recommended supportive care only. She has had bradycardia and her beta-carmen has been held. She had dysphagia but speech eventually cleared her, diet ordered, Corpak can be discontinued. Doing well, transfer order out of the ICU placed 04/14. This is a 61-year-old morbidly obese female [...] physical therapy, and will go to rehab. Vital Signs T: 37.3 ??C TMIN: 36.6 ??C TMAX: 38.2 ??C HR: 92(Monitored) RR: 17 BP: 130/94 SpO2: 94% Oxygen Settings (Last) Oxygen Therapy Mode: Room air (04/22/22 06:15:00) Oxygen Flow Rate: 2 Liter/Min (04/13/22 04:00:00) Discharge Disposition Home with Home Care Discharge Follow Up SAUL COPPOLA MD-BANNER - 09:15 AM Follow up with primary care provider - Within 2 to 3 days Follow up with specialist - Within 1 to 2 weeks Discharge Medications (14) Active acetaminophen 325 mg oral [...] Tab, Oral, At Bedtime Code Status Start: 04/08/22 19:03:00 EDT, Full Code, Continuous Order Condition on Discharge stable Consulting Physicians MARGARETH MANRIQUEZ MD (campos with hyperkalemia) VINNIE SWEENEY MD ALLEN, MARTY, MD-INF - septic shock, UTI MONSE IKM MD-INF RIBERA, FRANCIS Mathews MD-RAD IBRAHIMA, KARYNA Higgins [facility], ASHISH Melgar MD-URO - hydronephrosis RAY, GUERITA Pagan MD-URO ANAT, SAUL Higgins MD-NEP Current Diet Order Diet, Adult - Ordered -- Start: 04/21/22 15:35:00 EDT, Cardiac Diet, Isolation: Standard Precautions Pending Labs No Labs on Record Time Spent on Discharge 45 min documented in this encounter Plan of Treatment Not on file documented as of this encounter Visit Diagnoses Not on filedocumented in this encounter
--- OUTSIDE RECORDS SUMMARY | 2025-02-21 13:41 | XMS_ITS | Encounter Summary ---
Author Organization [employer] [facility] Address [address] [place] [address] Care Team Providers Care Butadiene Convertor Operator Name Role Phone Unavailable Primary Care Provider Unavailabl e Encounter Details Date Type Department Care Team (Late st Contact Info) Description 05/06/2022 Transcribed Document [facility] [place] Family Medicine [address] [place] [address] ProviderFlorentino MD [address] [place] [address] Social History Tobacco Use Types Packs/Day Years Used Date Smoking Tobacco: Never Assessed Comments Unknown Sex and Gender Information Value Date Recorded Sex Assigned at Not on file Legal Sex Female 1:44 PM CDT Gender Identity Not on file Sexual Orientation Not on file documented as of this encounter Miscellaneous Notes * Cerner Conversion Note - Florentino Lynne MD - 05/06/2022 2:18 PM CDT On Going Discharge Planning Entered On: 05/06/2022 14:19 EDT Performed On: 05/06/2022 14:18 EDT by ERIK GALARZA [facility] Care Management Progress Note Discharge Arrangements : [...] Attend Multidisciplinary Rounds? : Yes ERIK GALARZA, [facility] - 05/06/2022 14:18 EDT Narrative Progress Note Narrative Progress Note : Patient will be on iv abx until 05/08. She will then need to discharge home with family. Can't receive HH due to insurance and location. Will likely need outpatient wound care follow up. Need resources from a place from mom. Maybe a trapeze bar. Cm will continue to follow. Historical Progress Note : RRS HIGH, LOS 3, ELOS 3 Cefepime and micafungin iv until 9.8-Per [employer], rxs at at home are covered at 100%--PICC was refused by pt so will get groshong but can't be placed until 9.6. Pt is seeking [facility] and per liaison, [facility] administration has declined referral. Referrals were made 9.1 and per signature, the denial was based on pt's insurance. Preferred snf, [facility] and [facility] both declined. One interested facility[facility] was updated. Per [facility], pt's insurance is [employer] and there are no accepting HH agencies [...] he son and D-I-L work. TRISTAN TAYLOR, PRIMO-Student Admissions Clerk - 05/02/22 15:55:36 RRS HIGH, LOS 2, ELOS 3 Discharged 8.27 and readmitted 8.28 Sepsis-uti Cefepime and micafungin iv until 9.8 Per [facility], pt's insurance is a[employer] Medicaid with 2nd as [place] Medicaid. Pt [facility]. Per patricia, pt is declined. Pt agreed to [facility] snfs and 2nd to [place]. If pt discharges to home because there are no acceting snfs, only insurance accepted [place] Medicaid NOT [place] Medicaid. Will need precert for snf and potential transportation. TRISTAN TAYLOR, RN-Student Admissions Clerk - 05/01/22 15:43:47 Patient is now on [...] CM will continue to follow. ERIK GALARZA, [facility] - 04/30/22 14:16:00 ERIK GALARZA, [facility] - 05/06/2022 14:18 EDT documented in this encounter Plan of Treatment Not on file documented as of this encounter Visit Diagnoses Not on filedocumented in this encounter
--- OUTSIDE RECORDS SUMMARY | 2025-02-21 13:41 | XMS_ITS | Encounter Summary ---
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 Name Role Phone Unavailable Primary Care Provider Unavailabl e Encounter Details Date Type Department Care Team (Late st Contact Info) Description 04/11/2022 Transcribed Document [facility] [place] [facility] [address] [place] [address] ProviderFlorentino MD [address] [place] [address] Social History Tobacco Use Types Packs/Day Years Used Date Smoking Tobacco: Never Assessed Comments Unknown Sex and Gender Information Value Date Recorded Sex Assigned at Not on file Legal Sex Female 1:44 PM CDT Gender Identity Not on file Sexual Orientation Not on file documented as of this encounter Miscellaneous Notes * Cerner Conversion Note - Florentino Lynne MD - 04/11/2022 5:02 PM CDT Patient: ALYSSA AZUL Age: 61 years Sex: Female : 1960 Associated Diagnoses: None Author: VINNIE SWEENEY MD Subjective Extubated yesterday, off pressors. currently on CRRT. Reports feeling much better.. As per nurse no overnight issues.. Urine output remains low; plan is to continue CRRT till evening today and assess for hemodialysis on daily basis. Monitor for renal recovery. Health Status Allergies: Allergic Reactions (Selected) No [...] mg, 300 mL, 300 mL/Hr, IV Piggyback, [id number] calcium gluconate: 1 Gram, 100 mL, 100 mL/Hr, IV Piggyback, Q1H, PRN: Other (See Comment) calcium gluconate: 2 Gram, 100 mL, 100 mL/Hr, IV Piggyback, Q1H, PRN: Other (See Comment) ferrous sulfate: 325 mg, Oral, BID glucagon: [...] mL: 500 mg, 16.67 mL/Hr, IV Piggyback, [id number] micafungin: 100 mg, 100 mL/Hr, IV Piggyback, [id number] phenylephrine injection 80 mg + NaCl 0.9% [...] 1 Tab, Oral, At Bedtime , Medications (29) Active Scheduled: (10) famotidine 20 mg/2 mL inj 20 mg 2 mL, IV Push, Daily ferrous sulfate 325 mg EC tab 325 [...] *PREMIX* 600 mg 300 mL, IV Piggyback, [id number] meropenem + NaCl 0.9% 50 mL 500 mg, IV Piggyback, [id number] micafungin sodium 100 mg, IV Piggyback, [id number] miconazole nitrate 2% pwd 85 g 1 [...] History of obstructive sleep apnea / [id number] [id number] / Confirmed Diabetes / SNOMED CT [id number] / Confirmed, Active Problems (6) Chronic kidney disease (CKD), stage III (moderate) Diabetes History of obstructive sleep apnea Hyperlipidemia Hypertension Paraplegia Objective VS/Measurements Vital Signs/Vital Measures 04/11/2022 16:00 EDT Systolic Blood Pressure 113 mmHg Diastolic Blood Pressure 57 mmHg LOW Mean Arterial Pressure (MAP)-BMDI 80 Systolic BP, Arterial Line 1 120 mmHg Diastolic BP, Arterial Line 1 51 mmHg LOW Mean Arterial Pressure, Line 1 74 mmHg Temperature Source Rectal Temperature, Celsius 36.6 Deg C Clinical Temperature, F 97.9 Deg F Heart Rate Monitored 53 bpm LOW Respiratory Rate 25 Breaths/Min HI Oxygen Saturation 100 % Oxygen Therapy Mode Nasal cannula Oxygen Flow Rate 2 Liter/Min 04/11/2022 15:45 EDT Systolic Blood Pressure 115 mmHg Diastolic Blood Pressure 57 mmHg LOW Mean Arterial Pressure (MAP)-BMDI 82 Systolic BP, Arterial Line 1 115 mmHg Diastolic BP, Arterial Line 1 47 mmHg LOW Mean Arterial Pressure, Line 1 68 mmHg Temperature, Celsius 36.6 Deg C Clinical Temperature, F 97.9 Deg F Heart Rate Monitored 51 bpm LOW Respiratory Rate 17 Breaths/Min Oxygen Saturation 100 % 04/11/2022 15:44 EDT Heart Rate Monitored 52 bpm LOW Respiratory Rate 23 Breaths/Min HI Oxygen Saturation 100 % 04/11/2022 15:30 EDT Systolic Blood Pressure 104 mmHg Diastolic Blood Pressure 52 mmHg LOW Mean Arterial Pressure (MAP)-BMDI 75 Systolic BP, Arterial Line 1 110 mmHg Diastolic BP, Arterial Line 1 48 mmHg LOW Mean Arterial Pressure, Line 1 68 mmHg Temperature, Celsius 36.5 Deg C Clinical Temperature, F 97.7 Deg F Heart Rate Monitored 51 bpm LOW Respiratory Rate 13 Breaths/Min LOW Oxygen Saturation 100 % 04/11/2022 15:15 EDT Systolic Blood Pressure 109 mmHg Diastolic Blood Pressure 62 mmHg Mean Arterial Pressure (MAP)-BMDI 79 Systolic BP, Arterial Line 1 125 mmHg Diastolic BP, Arterial Line 1 53 mmHg LOW Mean Arterial Pressure, Line 1 77 mmHg Temperature, Celsius 36.5 Deg C Clinical Temperature, F 97.7 Deg F Heart Rate Monitored 48 bpm LOW Respiratory Rate 17 Breaths/Min Oxygen Saturation 100 % 04/11/2022 15:00 EDT Systolic Blood Pressure 107 mmHg Diastolic Blood Pressure 60 mmHg Mean Arterial Pressure (MAP)-BMDI 78 Systolic BP, Arterial Line 1 118 mmHg Diastolic BP, Arterial Line 1 50 mmHg LOW Mean Arterial Pressure, Line 1 72 mmHg Temperature, Celsius 36.5 Deg C Clinical Temperature, F 97.7 Deg F Heart Rate Monitored 51 bpm LOW Respiratory Rate 21 Breaths/Min HI Oxygen Saturation 100 % 04/11/2022 14:45 EDT Systolic Blood Pressure 94 mmHg Diastolic Blood Pressure 58 mmHg LOW Mean Arterial Pressure (MAP)-BMDI 72 Systolic BP, Arterial Line 1 117 mmHg Diastolic BP, Arterial Line 1 48 mmHg LOW Mean Arterial Pressure, Line 1 70 mmHg Temperature, Celsius 36.4 Deg C Clinical Temperature, F 97.5 Deg F Heart Rate Monitored 53 bpm LOW Respiratory Rate 30 Breaths/Min HI Oxygen Saturation 100 % 04/11/2022 14:30 EDT Systolic Blood Pressure 104 mmHg Diastolic Blood Pressure 55 mmHg LOW Mean Arterial Pressure (MAP)-BMDI 75 Systolic BP, Arterial Line 1 115 mmHg Diastolic BP, Arterial Line 1 47 mmHg LOW Mean Arterial Pressure, Line 1 68 mmHg Temperature, Celsius 36.4 Deg C Clinical Temperature, F 97.5 Deg F Heart Rate Monitored 50 bpm LOW Respiratory Rate 29 Breaths/Min HI Oxygen Saturation 100 % 04/11/2022 14:15 EDT Systolic Blood Pressure 112 mmHg Diastolic Blood Pressure 56 mmHg LOW Mean Arterial Pressure (MAP)-BMDI 79 Systolic BP, Arterial Line 1 114 mmHg Diastolic BP, Arterial Line 1 52 mmHg LOW Mean Arterial Pressure, Line 1 73 mmHg Temperature, Celsius 36.4 Deg C Clinical Temperature, F 97.5 Deg F Heart Rate Monitored 50 bpm LOW Respiratory Rate 18 Breaths/Min Oxygen Saturation 100 % 04/11/2022 14:00 EDT Systolic Blood Pressure 98 mmHg Diastolic Blood Pressure 58 mmHg LOW Mean Arterial Pressure (MAP)-BMDI 74 Systolic BP, Arterial Line 1 115 mmHg Diastolic BP, Arterial Line 1 48 mmHg LOW Mean Arterial Pressure, Line 1 69 mmHg Temperature Source Rectal Temperature, Celsius 36.3 Deg C Clinical Temperature, F 97.3 Deg F Heart Rate Monitored 53 bpm LOW Respiratory Rate 27 Breaths/Min HI Oxygen Saturation 100 % Oxygen Therapy Mode Nasal cannula Oxygen Flow Rate 2 Liter/Min 04/11/2022 13:45 EDT Systolic Blood Pressure 100 mmHg Diastolic Blood Pressure 55 mmHg LOW Mean Arterial Pressure (MAP)-BMDI 73 Systolic BP, Arterial Line 1 109 mmHg Diastolic BP, Arterial Line 1 44 mmHg LOW Mean Arterial Pressure, Line 1 64 mmHg Temperature, Celsius 36.3 Deg C Clinical Temperature, F 97.3 Deg F Heart Rate Monitored 53 bpm LOW Respiratory Rate 38 Breaths/Min HI Oxygen Saturation 100 % 04/11/2022 13:30 EDT Systolic Blood Pressure 108 mmHg Diastolic Blood Pressure 58 mmHg LOW Mean Arterial Pressure (MAP)-BMDI 76 Systolic BP, Arterial Line 1 122 mmHg Diastolic BP, Arterial Line 1 47 mmHg LOW Mean Arterial Pressure, Line 1 71 mmHg Temperature, Celsius 36.2 Deg C Clinical Temperature, F 97.2 Deg F Heart Rate Monitored 52 bpm LOW Respiratory Rate 18 Breaths/Min Oxygen Saturation 100 % 04/11/2022 13:15 EDT Systolic Blood Pressure 102 mmHg Diastolic Blood Pressure 50 mmHg LOW Mean Arterial Pressure (MAP)-BMDI 72 Systolic BP, Arterial Line 1 116 mmHg Diastolic BP, Arterial Line 1 46 mmHg LOW Mean Arterial Pressure, Line 1 68 mmHg Temperature, Celsius 36.2 Deg C Clinical Temperature, F 97.2 Deg F Heart Rate Monitored 50 bpm LOW Respiratory Rate 20 Breaths/Min Oxygen Saturation 100 % 04/11/2022 13:00 EDT Systolic Blood Pressure 118 mmHg Diastolic Blood Pressure 57 mmHg LOW Mean Arterial Pressure (MAP)-BMDI 82 Systolic BP, Arterial Line 1 114 mmHg Diastolic BP, Arterial Line 1 45 mmHg LOW Mean Arterial Pressure, Line 1 68 mmHg Temperature, Celsius 36.1 Deg C Clinical Temperature, F 97 Deg F Heart Rate Monitored 51 bpm LOW Respiratory Rate 24 Breaths/Min HI Oxygen Saturation 100 % 04/11/2022 12:45 EDT Systolic Blood Pressure 102 mmHg Diastolic Blood Pressure 53 mmHg LOW Mean Arterial Pressure (MAP)-BMDI 74 Systolic BP, Arterial Line 1 99 mmHg Diastolic BP, Arterial Line 1 40 mmHg LOW Mean Arterial Pressure, Line 1 59 mmHg Temperature, Celsius 36.1 Deg C Clinical Temperature, F 97 Deg F Heart Rate Monitored 50 bpm LOW Respiratory Rate 38 Breaths/Min HI Oxygen Saturation 100 % 04/11/2022 12:30 EDT Systolic Blood Pressure 95 mmHg Diastolic Blood Pressure 53 mmHg LOW Mean Arterial Pressure (MAP)-BMDI 71 Systolic BP, Arterial Line 1 102 mmHg Diastolic BP, Arterial Line 1 40 mmHg LOW Mean Arterial Pressure, Line 1 59 mmHg Temperature, Celsius 36.1 Deg C Clinical Temperature, F 97 Deg F Heart Rate Monitored 46 bpm LOW Respiratory Rate 20 Breaths/Min Oxygen Saturation 100 % 04/11/2022 12:15 EDT Systolic Blood Pressure 96 mmHg Diastolic Blood Pressure 51 mmHg LOW Mean Arterial Pressure (MAP)-BMDI 70 Systolic BP, Arterial Line 1 127 mmHg Diastolic BP, Arterial Line 1 53 mmHg LOW Mean Arterial Pressure, Line 1 79 mmHg Temperature, Celsius 36 Deg C Clinical Temperature, F 96.8 Deg F Heart Rate Monitored 60 bpm Respiratory Rate 32 Breaths/Min HI Oxygen Saturation 100 % 04/11/2022 12:00 EDT Systolic Blood Pressure 106 mmHg Diastolic Blood Pressure 56 mmHg LOW Mean Arterial Pressure (MAP)-BMDI 77 Systolic BP, Arterial Line 1 112 mmHg Diastolic BP, Arterial Line 1 45 mmHg LOW Mean Arterial Pressure, Line 1 65 mmHg Temperature Source Rectal Temperature, Celsius 35.9 Deg C Clinical Temperature, F 96.6 Deg F Heart Rate Monitored 47 bpm LOW Respiratory Rate 21 Breaths/Min HI Oxygen Saturation 100 % Oxygen Therapy Mode Nasal cannula Oxygen Flow Rate 2 Liter/Min 04/11/2022 11:45 EDT Systolic Blood Pressure 94 mmHg Diastolic Blood Pressure 50 mmHg LOW Mean Arterial Pressure (MAP)-BMDI 71 Systolic BP, Arterial Line 1 102 mmHg Diastolic BP, Arterial Line 1 43 mmHg LOW Mean Arterial Pressure, Line 1 62 mmHg Temperature, Celsius 35.9 Deg C Clinical Temperature, F 96.6 Deg F Heart Rate Monitored 49 bpm LOW Respiratory Rate 23 Breaths/Min HI Oxygen Saturation 100 % 04/11/2022 11:42 EDT Heart Rate Monitored 49 bpm LOW Respiratory Rate 27 Breaths/Min HI Oxygen Saturation 100 % 04/11/2022 11:30 EDT Systolic Blood Pressure 112 mmHg Diastolic Blood Pressure 54 mmHg LOW Mean Arterial Pressure (MAP)-BMDI 75 Systolic BP, Arterial Line 1 102 mmHg Diastolic BP, Arterial Line 1 42 mmHg LOW Mean Arterial Pressure, Line 1 61 mmHg Temperature, Celsius 35.9 Deg C Clinical Temperature, F 96.6 Deg F 04/11/2022 11:15 EDT Systolic Blood Pressure 107 mmHg Diastolic Blood Pressure 55 mmHg LOW Mean Arterial Pressure (MAP)-BMDI 79 Systolic BP, Arterial Line 1 108 mmHg Diastolic BP, Arterial Line 1 43 mmHg LOW Mean Arterial Pressure, Line 1 62 mmHg Temperature, Celsius 35.9 Deg C Clinical Temperature, F 96.6 Deg F Heart Rate Monitored 45 bpm LOW Respiratory Rate 30 Breaths/Min HI Oxygen Saturation 100 % 04/11/2022 11:00 EDT Systolic Blood Pressure 97 mmHg Diastolic Blood Pressure 53 mmHg LOW Mean Arterial Pressure (MAP)-BMDI 72 Systolic BP, Arterial Line 1 104 mmHg Diastolic BP, Arterial Line 1 42 mmHg LOW Mean Arterial Pressure, Line 1 61 mmHg Temperature, Celsius 35.8 Deg C Clinical Temperature, F 96.4 Deg F Heart Rate Monitored 47 bpm LOW Respiratory Rate 18 Breaths/Min Oxygen Saturation 100 % 04/11/2022 10:45 EDT Systolic Blood Pressure 117 mmHg Diastolic Blood Pressure 63 mmHg Mean Arterial Pressure (MAP)-BMDI 79 Systolic BP, Arterial Line 1 108 mmHg Diastolic BP, Arterial Line 1 44 mmHg LOW Mean Arterial Pressure, Line 1 64 mmHg Temperature, Celsius 35.8 Deg C Clinical Temperature, F 96.4 Deg F Heart Rate Monitored 48 bpm LOW Respiratory Rate 21 Breaths/Min HI Oxygen Saturation 100 % 04/11/2022 10:30 EDT Systolic Blood Pressure 113 mmHg Diastolic Blood Pressure 56 mmHg LOW Mean Arterial Pressure (MAP)-BMDI 80 Systolic BP, Arterial Line 1 96 mmHg Diastolic BP, Arterial Line 1 42 mmHg LOW Mean Arterial Pressure, Line 1 59 mmHg Temperature, Celsius 35.7 Deg C Clinical Temperature, F 96.3 Deg F Heart Rate Monitored 51 bpm LOW Respiratory Rate 21 Breaths/Min HI Oxygen Saturation 100 % 04/11/2022 10:15 EDT Systolic Blood Pressure 120 mmHg Diastolic Blood Pressure 57 mmHg LOW Mean Arterial Pressure (MAP)-BMDI 82 Systolic BP, Arterial Line 1 96 mmHg Diastolic BP, Arterial Line 1 43 mmHg LOW Mean Arterial Pressure, Line 1 60 mmHg Temperature, Celsius 35.7 Deg C Clinical Temperature, F 96.3 Deg F Heart Rate Monitored 47 bpm LOW Respiratory Rate 17 Breaths/Min Oxygen Saturation 100 % 04/11/2022 10:09 EDT Systolic Blood Pressure 128 mmHg Diastolic Blood Pressure 60 mmHg Mean Arterial Pressure (MAP)-BMDI 86 Systolic BP, Arterial Line 1 99 mmHg Diastolic BP, Arterial Line 1 42 mmHg LOW Mean Arterial Pressure, Line 1 61 mmHg Temperature, Celsius 35.7 Deg C Clinical Temperature, F 96.3 Deg F Heart Rate Monitored 49 bpm LOW Respiratory Rate 21 Breaths/Min HI Oxygen Saturation 100 % 04/11/2022 10:00 EDT Temperature Source Rectal Oxygen Therapy Mode Nasal cannula Oxygen Flow Rate 2 Liter/Min 04/11/2022 9:45 EDT Temperature, Celsius 35.7 Deg C Clinical Temperature, F 96.3 Deg F Heart Rate Monitored 48 bpm LOW Respiratory Rate 18 Breaths/Min Oxygen Saturation 100 % 04/11/2022 9:42 EDT Systolic Blood Pressure 116 mmHg Diastolic Blood Pressure 59 mmHg LOW Mean Arterial Pressure (MAP)-BMDI 84 Systolic BP, Arterial Line 1 67 mmHg LOW Diastolic BP, Arterial Line 1 55 mmHg LOW Mean Arterial Pressure, Line 1 62 mmHg Temperature, Celsius 35.7 Deg C Clinical Temperature, F 96.3 Deg F Heart Rate Monitored 48 bpm LOW Respiratory Rate 18 Breaths/Min Oxygen Saturation 100 % 04/11/2022 9:15 EDT Systolic Blood Pressure 124 mmHg Diastolic Blood Pressure 61 mmHg Mean Arterial Pressure (MAP)-BMDI 88 Systolic BP, Arterial Line 1 115 mmHg Diastolic BP, Arterial Line 1 58 mmHg LOW Mean Arterial Pressure, Line 1 76 mmHg Temperature, Celsius 35.7 Deg C Clinical Temperature, F 96.3 Deg F Heart Rate Monitored 48 bpm LOW Respiratory Rate 19 Breaths/Min Oxygen Saturation 100 % 04/11/2022 9:00 EDT Systolic Blood Pressure 108 mmHg Diastolic Blood Pressure 55 mmHg LOW Mean Arterial Pressure (MAP)-BMDI 77 Systolic BP, Arterial Line 1 99 mmHg Diastolic BP, Arterial Line 1 85 mmHg Mean Arterial Pressure, Line 1 90 mmHg Temperature, Celsius 35.8 Deg C Clinical Temperature, F 96.4 Deg F Heart Rate Monitored 48 bpm LOW Respiratory Rate 24 Breaths/Min HI Oxygen Saturation 100 % 04/11/2022 8:45 EDT Systolic Blood Pressure 112 mmHg Diastolic Blood Pressure 58 mmHg LOW Mean Arterial Pressure (MAP)-BMDI 82 Systolic BP, Arterial Line 1 107 mmHg Diastolic BP, Arterial Line 1 48 mmHg LOW Mean Arterial Pressure, Line 1 69 mmHg Temperature, Celsius 35.8 Deg C Clinical Temperature, F 96.4 Deg F Heart Rate Monitored 48 bpm LOW Respiratory Rate 30 Breaths/Min HI Oxygen Saturation 100 % 04/11/2022 8:30 EDT Systolic Blood Pressure 111 mmHg Diastolic Blood Pressure 56 mmHg LOW Mean Arterial Pressure (MAP)-BMDI 81 Systolic BP, Arterial Line 1 145 mmHg HI Diastolic BP, Arterial Line 1 106 mmHg HI Mean Arterial Pressure, Line 1 113 mmHg Temperature, Celsius 35.8 Deg C Clinical Temperature, F 96.4 Deg F Heart Rate Monitored 48 bpm LOW Respiratory Rate 28 Breaths/Min HI Oxygen Saturation 100 % 04/11/2022 8:15 EDT Systolic Blood Pressure 133 mmHg Diastolic Blood Pressure 62 mmHg Mean Arterial Pressure (MAP)-BMDI 89 Systolic BP, Arterial Line 1 116 mmHg Diastolic BP, Arterial Line 1 89 mmHg Mean Arterial Pressure, Line 1 98 mmHg Temperature, Celsius 35.7 Deg C Clinical Temperature, F 96.3 Deg F Heart Rate Monitored 48 bpm LOW Respiratory Rate 27 Breaths/Min HI Oxygen Saturation 100 % 04/11/2022 8:00 EDT Systolic Blood Pressure 133 mmHg Diastolic Blood Pressure 62 mmHg Mean Arterial Pressure (MAP)-BMDI 89 Systolic BP, Arterial Line 1 115 mmHg Diastolic BP, Arterial Line 1 90 mmHg Mean Arterial Pressure, Line 1 102 mmHg Temperature Source Rectal Temperature, Celsius 35.7 Deg C Clinical Temperature, F 96.3 Deg F Heart Rate Monitored 47 bpm LOW Respiratory Rate 17 Breaths/Min Oxygen Saturation 100 % Oxygen Therapy Mode Nasal cannula Oxygen Flow Rate 2 Liter/Min 04/11/2022 7:56 EDT Heart Rate Monitored 51 bpm LOW Respiratory Rate 24 Breaths/Min HI Oxygen Saturation 100 % Oxygen Therapy Mode Nasal cannula Oxygen Flow Rate 4 Liter/Min 04/11/2022 7:45 EDT Systolic Blood Pressure 130 mmHg Diastolic Blood Pressure 60 mmHg Mean Arterial Pressure (MAP)-BMDI 86 Systolic BP, Arterial Line 1 124 mmHg Diastolic BP, Arterial Line 1 56 mmHg LOW Mean Arterial Pressure, Line 1 82 mmHg Temperature, Celsius 35.8 Deg C Clinical Temperature, F 96.4 Deg F 04/11/2022 7:30 EDT Systolic Blood Pressure 128 mmHg Diastolic Blood Pressure 61 mmHg Mean Arterial Pressure (MAP)-BMDI 88 Systolic BP, Arterial Line 1 124 mmHg Diastolic BP, Arterial Line 1 57 mmHg LOW Mean Arterial Pressure, Line 1 79 mmHg Temperature, Celsius 35.7 Deg C Clinical Temperature, F 96.3 Deg F Heart Rate Monitored 49 bpm LOW Respiratory Rate 22 Breaths/Min HI Oxygen Saturation 100 % 04/11/2022 7:15 EDT Systolic Blood Pressure 133 mmHg Diastolic Blood Pressure 63 mmHg Mean Arterial Pressure (MAP)-BMDI 90 Systolic BP, Arterial Line 1 126 mmHg Diastolic BP, Arterial Line 1 62 mmHg Mean Arterial Pressure, Line 1 83 mmHg Temperature, Celsius 35.8 Deg C Clinical Temperature, F 96.4 Deg F Heart Rate Monitored 45 bpm LOW Respiratory Rate 17 Breaths/Min Oxygen Saturation 100 % 04/11/2022 7:00 EDT Systolic Blood Pressure 124 mmHg Diastolic Blood Pressure 60 mmHg Mean Arterial Pressure (MAP)-BMDI 87 Systolic BP, Arterial Line 1 107 mmHg Diastolic BP, Arterial Line 1 59 mmHg LOW Mean Arterial Pressure, Line 1 75 mmHg Temperature, Celsius 35.9 Deg C Clinical Temperature, F 96.6 Deg F Heart Rate Monitored 50 bpm LOW Respiratory Rate 20 Breaths/Min Oxygen Saturation 100 % 04/11/2022 6:45 EDT Systolic Blood Pressure 141 mmHg HI Diastolic Blood Pressure 65 mmHg Mean Arterial Pressure (MAP)-BMDI 94 Systolic BP, Arterial Line 1 103 mmHg Diastolic BP, Arterial Line 1 52 mmHg LOW Mean Arterial Pressure, Line 1 73 mmHg Temperature, Celsius 36 Deg C Clinical Temperature, F 96.8 Deg F Heart Rate Monitored 52 bpm LOW Respiratory Rate 27 Breaths/Min HI Oxygen Saturation 100 % 04/11/2022 6:30 EDT Systolic Blood Pressure 145 mmHg HI Diastolic Blood Pressure 66 mmHg Mean Arterial Pressure (MAP)-BMDI 95 Systolic BP, Arterial Line 1 129 mmHg Diastolic BP, Arterial Line 1 52 mmHg LOW Mean Arterial Pressure, Line 1 79 mmHg Temperature, Celsius 36 Deg C Clinical Temperature, F 96.8 Deg F Heart Rate Monitored 59 bpm LOW Respiratory Rate 24 Breaths/Min HI Oxygen Saturation 100 % 04/11/2022 6:15 EDT Systolic Blood Pressure 111 mmHg Diastolic Blood Pressure 53 mmHg LOW Mean Arterial Pressure (MAP)-BMDI 77 Systolic BP, Arterial Line 1 110 mmHg Diastolic BP, Arterial Line 1 46 mmHg LOW Mean Arterial Pressure, Line 1 66 mmHg Temperature, Celsius 36 Deg C Clinical Temperature, F 96.8 Deg F Heart Rate Monitored 49 bpm LOW Respiratory Rate 15 Breaths/Min Oxygen Saturation 100 % 04/11/2022 6:00 EDT Systolic Blood Pressure 112 mmHg Diastolic Blood Pressure 52 mmHg LOW Mean Arterial Pressure (MAP)-BMDI 78 Systolic BP, Arterial Line 1 122 mmHg Diastolic BP, Arterial Line 1 50 mmHg LOW Mean Arterial Pressure, Line 1 71 mmHg Temperature, Celsius 36 Deg C Clinical Temperature, F 96.8 Deg F Heart Rate Monitored 47 bpm LOW Respiratory Rate 14 Breaths/Min Oxygen Saturation 100 % Oxygen Therapy Mode Nasal cannula Oxygen Flow Rate 4 Liter/Min 04/11/2022 5:45 EDT Systolic Blood Pressure 118 mmHg Diastolic Blood Pressure 58 mmHg LOW Mean Arterial Pressure (MAP)-BMDI 83 Systolic BP, Arterial Line 1 136 mmHg Diastolic BP, Arterial Line 1 54 mmHg LOW Mean Arterial Pressure, Line 1 78 mmHg Temperature, Celsius 36 Deg C Clinical Temperature, F 96.8 Deg F Heart Rate Monitored 48 bpm LOW Respiratory Rate 18 Breaths/Min Oxygen Saturation 100 % 04/11/2022 5:30 EDT Systolic Blood Pressure 125 mmHg Diastolic Blood Pressure 58 mmHg LOW Mean Arterial Pressure (MAP)-BMDI 83 Systolic BP, Arterial Line 1 135 mmHg Diastolic BP, Arterial Line 1 55 mmHg LOW Mean Arterial Pressure, Line 1 79 mmHg Temperature, Celsius 35.8 Deg C Clinical Temperature, F 96.4 Deg F Heart Rate Monitored 46 bpm LOW Respiratory Rate 17 Breaths/Min Oxygen Saturation 100 % 04/11/2022 5:15 EDT Systolic Blood Pressure 133 mmHg Diastolic Blood Pressure 63 mmHg Mean Arterial Pressure (MAP)-BMDI 90 Systolic BP, Arterial Line 1 129 mmHg Diastolic BP, Arterial Line 1 51 mmHg LOW Mean Arterial Pressure, Line 1 75 mmHg Temperature, Celsius 35.5 Deg C Clinical Temperature, F 95.9 Deg F Heart Rate Monitored 47 bpm LOW Respiratory Rate 15 Breaths/Min Oxygen Saturation 100 % 04/11/2022 5:00 EDT Systolic Blood Pressure 129 mmHg Diastolic Blood Pressure 60 mmHg Mean Arterial Pressure (MAP)-BMDI 87 Systolic BP, Arterial Line 1 129 mmHg Diastolic BP, Arterial Line 1 54 mmHg LOW Mean Arterial Pressure, Line 1 80 mmHg Temperature, Celsius 35.3 Deg C Clinical Temperature, F 95.5 Deg F Heart Rate Monitored 47 bpm LOW Respiratory Rate 19 Breaths/Min Oxygen Saturation 100 % 04/11/2022 4:56 EDT Heart Rate Monitored 51 bpm LOW Respiratory Rate 16 Breaths/Min Oxygen Saturation 100 % Oxygen Therapy Mode BiPAP FiO2 35 % 04/11/2022 4:45 EDT Systolic Blood Pressure 125 mmHg Diastolic Blood Pressure 60 mmHg Mean Arterial Pressure (MAP)-BMDI 86 Systolic BP, Arterial Line 1 111 mmHg Diastolic BP, Arterial Line 1 48 mmHg LOW Mean Arterial Pressure, Line 1 70 mmHg Temperature, Celsius 35.1 Deg C LOW Clinical Temperature, F 95.2 Deg F Heart Rate Monitored 49 bpm LOW Respiratory Rate 18 Breaths/Min Oxygen Saturation 100 % 04/11/2022 4:30 EDT Systolic Blood Pressure 125 mmHg Diastolic Blood Pressure 60 mmHg Mean Arterial Pressure (MAP)-BMDI 86 Systolic BP, Arterial Line 1 119 mmHg Diastolic BP, Arterial Line 1 50 mmHg LOW Mean Arterial Pressure, Line 1 75 mmHg Temperature, Celsius 35.1 Deg C LOW Clinical Temperature, F 95.2 Deg F Heart Rate Monitored 45 bpm LOW Respiratory Rate 18 Breaths/Min Oxygen Saturation 100 % 04/11/2022 4:15 EDT Systolic Blood Pressure 132 mmHg Diastolic Blood Pressure 57 mmHg LOW Mean Arterial Pressure (MAP)-BMDI 87 Systolic BP, Arterial Line 1 118 mmHg Diastolic BP, Arterial Line 1 53 mmHg LOW Mean Arterial Pressure, Line 1 76 mmHg Temperature, Celsius 35.1 Deg C LOW Clinical Temperature, F 95.2 Deg F Heart Rate Monitored 47 bpm LOW Respiratory Rate 15 Breaths/Min Oxygen Saturation 100 % 04/11/2022 4:00 EDT Systolic Blood Pressure 140 mmHg Diastolic Blood Pressure 67 mmHg Mean Arterial Pressure (MAP)-BMDI 96 Systolic BP, Arterial Line 1 140 mmHg Diastolic BP, Arterial Line 1 57 mmHg LOW Mean Arterial Pressure, Line 1 85 mmHg Temperature, Celsius 35 Deg C LOW Clinical Temperature, F 95 Deg F Heart Rate Monitored 42 bpm LOW Respiratory Rate 15 Breaths/Min Oxygen Saturation 100 % 04/11/2022 3:45 EDT Systolic Blood Pressure 129 mmHg Diastolic Blood Pressure 60 mmHg Mean Arterial Pressure (MAP)-BMDI 87 Systolic BP, Arterial Line 1 135 mmHg Diastolic BP, Arterial Line 1 56 mmHg LOW Mean Arterial Pressure, Line 1 83 mmHg Temperature, Celsius 35 Deg C LOW Clinical Temperature, F 95 Deg F Heart Rate Monitored 43 bpm LOW Respiratory Rate 15 Breaths/Min Oxygen Saturation 100 % 04/11/2022 3:30 EDT Systolic Blood Pressure 125 mmHg Diastolic Blood Pressure 58 mmHg LOW Mean Arterial Pressure (MAP)-BMDI 83 Systolic BP, Arterial Line 1 125 mmHg Diastolic BP, Arterial Line 1 51 mmHg LOW Mean Arterial Pressure, Line 1 75 mmHg Temperature, Celsius 34.9 Deg C LOW Clinical Temperature, F 94.8 Deg F Heart Rate Monitored 40 bpm LOW Respiratory Rate 17 Breaths/Min Oxygen Saturation 100 % 04/11/2022 3:15 EDT Systolic Blood Pressure 118 mmHg Diastolic Blood Pressure 59 mmHg LOW Mean Arterial Pressure (MAP)-BMDI 85 Systolic BP, Arterial Line 1 109 mmHg Diastolic BP, Arterial Line 1 47 mmHg LOW Mean Arterial Pressure, Line 1 67 mmHg Temperature, Celsius 34.9 Deg C LOW Clinical Temperature, F 94.8 Deg F Heart Rate Monitored 46 bpm LOW Respiratory Rate 15 Breaths/Min Oxygen Saturation 97 % 04/11/2022 3:00 EDT Systolic Blood Pressure 121 mmHg Diastolic Blood Pressure 56 mmHg LOW Mean Arterial Pressure (MAP)-BMDI 82 Systolic BP, Arterial Line 1 118 mmHg Diastolic BP, Arterial Line 1 51 mmHg LOW Mean Arterial Pressure, Line 1 74 mmHg Temperature, Celsius 34.9 Deg C LOW Clinical Temperature, F 94.8 Deg F Heart Rate Monitored 40 bpm LOW Respiratory Rate 13 Breaths/Min LOW Oxygen Saturation 100 % 04/11/2022 2:45 EDT Systolic Blood Pressure 123 mmHg Diastolic Blood Pressure 60 mmHg Mean Arterial Pressure (MAP)-BMDI 86 Systolic BP, Arterial Line 1 121 mmHg Diastolic BP, Arterial Line 1 54 mmHg LOW Mean Arterial Pressure, Line 1 78 mmHg Temperature, Celsius 34.9 Deg C LOW Clinical Temperature, F 94.8 Deg F Heart Rate Monitored 44 bpm LOW Respiratory Rate 25 Breaths/Min HI Oxygen Saturation 100 % 04/11/2022 2:30 EDT Systolic Blood Pressure 126 mmHg Diastolic Blood Pressure 60 mmHg Mean Arterial Pressure (MAP)-BMDI 86 Systolic BP, Arterial Line 1 123 mmHg Diastolic BP, Arterial Line 1 56 mmHg LOW Mean Arterial Pressure, Line 1 80 mmHg Temperature, Celsius 34.9 Deg C LOW Clinical Temperature, F 94.8 Deg F Heart Rate Monitored 42 bpm LOW Respiratory Rate 25 Breaths/Min HI Oxygen Saturation 100 % 04/11/2022 2:15 EDT Systolic Blood Pressure 118 mmHg Diastolic Blood Pressure 56 mmHg LOW Mean Arterial Pressure (MAP)-BMDI 81 Temperature, Celsius 34.8 Deg C LOW Clinical Temperature, F 94.6 Deg F Heart Rate Monitored 41 bpm LOW Respiratory Rate 14 Breaths/Min Oxygen Saturation 100 % 04/11/2022 2:00 EDT Systolic Blood Pressure 120 mmHg Diastolic Blood Pressure 58 mmHg LOW Mean Arterial Pressure (MAP)-BMDI 83 Temperature, Celsius 34.7 Deg C LOW Clinical Temperature, F 94.5 Deg F Heart Rate Monitored 45 bpm LOW Respiratory Rate 25 Breaths/Min HI Oxygen Saturation 100 % 04/11/2022 1:45 EDT Systolic Blood Pressure 119 mmHg Diastolic Blood Pressure 57 mmHg LOW Mean Arterial Pressure (MAP)-BMDI 82 Temperature, Celsius 34.7 Deg C LOW Clinical Temperature, F 94.5 Deg F Heart Rate Monitored 44 bpm LOW Respiratory Rate 26 Breaths/Min HI Oxygen Saturation 100 % 04/11/2022 1:30 EDT Systolic Blood Pressure 115 mmHg Diastolic Blood Pressure 56 mmHg LOW Mean Arterial Pressure (MAP)-BMDI 79 Temperature, Celsius 34.7 Deg C LOW Clinical Temperature, F 94.5 Deg F Heart Rate Monitored 40 bpm LOW Respiratory Rate 26 Breaths/Min HI Oxygen Saturation 100 % 04/11/2022 1:15 EDT Systolic Blood Pressure 119 mmHg Diastolic Blood Pressure 60 mmHg Mean Arterial Pressure (MAP)-BMDI 84 Temperature, Celsius 34.7 Deg C LOW Clinical Temperature, F 94.5 Deg F Heart Rate Monitored 42 bpm LOW Respiratory Rate 26 Breaths/Min HI Oxygen Saturation 100 % 04/11/2022 1:00 EDT Systolic Blood Pressure 107 mmHg Diastolic Blood Pressure 57 mmHg LOW Mean Arterial Pressure (MAP)-BMDI 78 Temperature, Celsius 34.7 Deg C LOW Clinical Temperature, F 94.5 Deg F Heart Rate Monitored 41 bpm LOW Respiratory Rate 24 Breaths/Min HI Oxygen Saturation 100 % 04/11/2022 0:45 EDT Systolic Blood Pressure 105 mmHg Diastolic Blood Pressure 57 mmHg LOW Mean Arterial Pressure (MAP)-BMDI 78 Temperature, Celsius 34.7 Deg C LOW Clinical Temperature, F 94.5 Deg F Heart Rate Monitored 41 bpm LOW Respiratory Rate 21 Breaths/Min HI Oxygen Saturation 100 % 04/11/2022 0:30 EDT Systolic Blood Pressure 114 mmHg Diastolic Blood Pressure 56 mmHg LOW Mean Arterial Pressure (MAP)-BMDI 80 Temperature, Celsius 34.6 Deg C LOW Clinical Temperature, F 94.3 Deg F Heart Rate Monitored 43 bpm LOW Respiratory Rate 28 Breaths/Min HI Oxygen Saturation 100 % 04/11/2022 0:15 EDT Systolic Blood Pressure 105 mmHg Diastolic Blood Pressure 55 mmHg LOW Mean Arterial Pressure (MAP)-BMDI 77 Temperature, Celsius 34.6 Deg C LOW Clinical Temperature, F 94.3 Deg F Heart Rate Monitored 41 bpm LOW Respiratory Rate 28 Breaths/Min HI Oxygen Saturation 100 % 04/11/2022 0:00 EDT Systolic Blood Pressure 120 mmHg Diastolic Blood Pressure 59 mmHg LOW Mean Arterial Pressure (MAP)-BMDI 84 Temperature, Celsius 34.5 Deg C LOW Clinical Temperature, F 94.1 Deg F Heart Rate Monitored 40 bpm LOW Respiratory Rate 28 Breaths/Min HI Oxygen Saturation 100 % 04/10/2022 23:46 EDT Heart Rate Monitored 51 bpm LOW Respiratory Rate 20 Breaths/Min Oxygen Saturation 100 % Oxygen Therapy Mode BiPAP FiO2 35 % 04/10/2022 23:45 EDT Systolic Blood Pressure 120 mmHg Diastolic Blood Pressure 59 mmHg LOW Mean Arterial Pressure (MAP)-BMDI 84 Systolic BP, Arterial Line 1 99 mmHg Diastolic BP, Arterial Line 1 58 mmHg LOW Mean Arterial Pressure, Line 1 75 mmHg Temperature, Celsius 34.5 Deg C LOW Clinical Temperature, F 94.1 Deg F 04/10/2022 23:30 EDT Systolic Blood Pressure 119 mmHg Diastolic Blood Pressure 57 mmHg LOW Mean Arterial Pressure (MAP)-BMDI 82 Systolic BP, Arterial Line 1 97 mmHg Diastolic BP, Arterial Line 1 55 mmHg LOW Mean Arterial Pressure, Line 1 72 mmHg Temperature, Celsius 34.5 Deg C LOW Clinical Temperature, F 94.1 Deg F Heart Rate Monitored 44 bpm LOW Respiratory Rate 31 Breaths/Min HI Oxygen Saturation 100 % 04/10/2022 23:15 EDT Systolic Blood Pressure 119 mmHg Diastolic Blood Pressure 58 mmHg LOW Mean Arterial Pressure (MAP)-BMDI 82 Systolic BP, Arterial Line 1 86 mmHg LOW Diastolic BP, Arterial Line 1 54 mmHg LOW Mean Arterial Pressure, Line 1 68 mmHg Temperature, Celsius 34.4 Deg C LOW Clinical Temperature, F 93.9 Deg F Heart Rate Monitored 43 bpm LOW Respiratory Rate 31 Breaths/Min HI Oxygen Saturation 100 % 04/10/2022 23:00 EDT Systolic Blood Pressure 119 mmHg Diastolic Blood Pressure 68 mmHg Mean Arterial Pressure (MAP)-BMDI 86 Systolic BP, Arterial Line 1 85 mmHg LOW Diastolic BP, Arterial Line 1 54 mmHg LOW Mean Arterial Pressure, Line 1 68 mmHg Temperature, Celsius 34.4 Deg C LOW Clinical Temperature, F 93.9 Deg F Heart Rate Monitored 43 bpm LOW Respiratory Rate 28 Breaths/Min HI Oxygen Saturation 100 % 04/10/2022 22:45 EDT Systolic Blood Pressure 141 mmHg HI Diastolic Blood Pressure 63 mmHg Mean Arterial Pressure (MAP)-BMDI 91 Systolic BP, Arterial Line 1 89 mmHg LOW Diastolic BP, Arterial Line 1 57 mmHg LOW Mean Arterial Pressure, Line 1 70 mmHg Temperature, Celsius 34.4 Deg C LOW Clinical Temperature, F 93.9 Deg F Heart Rate Monitored 45 bpm LOW Respiratory Rate 26 Breaths/Min HI Oxygen Saturation 100 % 04/10/2022 22:30 EDT Systolic Blood Pressure 103 mmHg Diastolic Blood Pressure 53 mmHg LOW Mean Arterial Pressure (MAP)-BMDI 75 Systolic BP, Arterial Line 1 81 mmHg LOW Diastolic BP, Arterial Line 1 40 mmHg LOW Mean Arterial Pressure, Line 1 56 mmHg Temperature, Celsius 34.4 Deg C LOW Clinical Temperature, F 93.9 Deg F Heart Rate Monitored 44 bpm LOW Respiratory Rate 33 Breaths/Min HI Oxygen Saturation 100 % 04/10/2022 22:15 EDT Systolic Blood Pressure 110 mmHg Diastolic Blood Pressure 56 mmHg LOW Mean Arterial Pressure (MAP)-BMDI 76 Systolic BP, Arterial Line 1 93 mmHg Diastolic BP, Arterial Line 1 49 mmHg LOW Mean Arterial Pressure, Line 1 66 mmHg Temperature, Celsius 34.4 Deg C LOW Clinical Temperature, F 93.9 Deg F Heart Rate Monitored 44 bpm LOW Respiratory Rate 32 Breaths/Min HI Oxygen Saturation 100 % 04/10/2022 22:00 EDT Systolic Blood Pressure 112 mmHg Diastolic Blood Pressure 55 mmHg LOW Mean Arterial Pressure (MAP)-BMDI 78 Systolic BP, Arterial Line 1 93 mmHg Diastolic BP, Arterial Line 1 50 mmHg LOW Mean Arterial Pressure, Line 1 67 mmHg Temperature, Celsius 34.4 Deg C LOW Clinical Temperature, F 93.9 Deg F Heart Rate Monitored 43 bpm LOW Respiratory Rate 23 Breaths/Min HI Oxygen Saturation 100 % 04/10/2022 21:45 EDT Systolic Blood Pressure 113 mmHg Diastolic Blood Pressure 55 mmHg LOW Mean Arterial Pressure (MAP)-BMDI 78 Systolic BP, Arterial Line 1 93 mmHg documented in this encounter Plan of Treatment Not on file documented as of this encounter Visit Diagnoses Not on filedocumented in this encounter
--- OUTSIDE RECORDS SUMMARY | 2025-02-21 13:41 | XMS_ITS | Encounter Summary ---
Author Organization [employer] Address [address] [place] [id number] Care Team Providers Care Ip/Mosaic Technician Name Role Phone Unavailable Primary Care Provider Unavailabl e Encounter Details Date Type Department Care Team (Late st Contact Info) Description 04/11/2022 Transcribed Document [facility] [place] [facility] [place] [address] ProviderFlorentino MD [address] [place] [address] Social History Tobacco Use Types Packs/Day Years Used Date Smoking Tobacco: Never Assessed Comments Unknown Sex and Gender Information Value Date Recorded Sex Assigned at Not on file Legal Sex Female 1:44 PM CDT Gender Identity Not on file Sexual Orientation Not on file documented as of this encounter Miscellaneous Notes * Cerner Conversion Note - Florentino ProviderMD - 04/11/2022 12:44 PM CDT Swallow Evaluation Entered On: 04/11/2022 12:47 EDT Performed On: 04/11/2022 12:45 EDT by NAHOMI NG, HOUSE SHORER General Information Previous Swallow Precautions : FEES 02/2022 (Comment: 03/11/2022 9:49 EDT FEES Overall Impressions : Patient presents with normal oropharyngeal skills. No penetration, aspiration, or abnormal pharyngeal residue with any consistency regardless of bolus size or presentation style. Patient appears ready to initiate a regular diet, meds per RN, and up at 90 degrees for all PO. [NAHOMI NG, HOUSE SHORER - 04/11/2022 13:19 EDT] ) NAHOMI NG SLP - 04/11/2022 13:19 EDT Visit Type, HOUSE SHORER : Initial evaluation Medical Chart Reviewed, HOUSE SHORER : Yes Therapy Diagnosis, HOUSE SHORER : Functional oral skills with tested consistencies, overt pharyngeal patterns, aphonic vocal quality. Pt is not safe for PO diet and not yet appropriate for instrumental. RECS 1. Continue TF via Corpak 2. Ice and sips of water are OK in moderation and after oral care 3. Non-oral meds 4. FEES Thursday for further pharyngeal assessment Diet/Intake Prior to Current Admission : reg/thin Diet/Intake During Current Admission : NPO with TF via Corpak Respiratory Assessment Comment : nasal cannula NAHOMI NG HOUSE SHORER - 04/11/2022 13:08 EDT Patient Orders : HOUSE SHORER Bedside Swallow Evaluation -111 Start: 04/11/22 12:44:00 EDT, Routine, For Swallow Eval and Treat - AL-JAMILAH LOPEZ MD Admission Date : Admission Date/Time: 04/08/22 07:53:00 Personal Devices : Personal Devices No Devices [...] 12:00 Urinary tract infection, site not specified Intubation Comment, HOUSE SHORER : 04/08 - 04/10 Vital Signs RTF [...] Initial Wt: 04/08 81.8 kg 180 lb NAHOMI NG SLP - 04/11/2022 12:45 EDT General Status Patient Received Status, HOUSE SHORER : Long sitting in bed Treatment Start Time, HOUSE SHORER : 04/11/2022 11:40 EDT Patient Left Status, HOUSE SHORER : Long sitting in bed Treatment End Time, HOUSE SHORER : 04/11/2022 12:09 EDT Treatment Time, HOUSE SHORER : 29 Minute(s) NAHOMI NG SLP - 04/11/2022 12:45 EDT Pain Assessment Pain Scaled Used : FACES Pain Score Pre-Intervention : 2 (Comment: no c/o pain [NAHOMI NG SLP - 04/11/2022 13:08 EDT] ) NAHOMI NG SLP - 04/11/2022 13:08 EDT Image 1 - Images currently included in the form version of this document have not been included in the text rendition version of the form. Oral Mechanism Dysarthria : No Brief Phonation Quality : Aphonic NAHOMI NG SLP - 04/11/2022 13:08 EDT Bedside Swallow Swallow Outcome BS Swallow : Needs additional assessment Oral Care Completed : Yes Head Control BS Swallow : Neutral head position Presentation Style BS Swallow : Clinician Swallow Position BS Swallow : Other: upright approx 70 degrees Consistencies Trialed BS Swallow : Ice chips, Thin by straw NAHOMI NG SLP - 04/11/2022 13:08 EDT Swallow Impressions Swallowing Outcome Measures : Functional Oral Intake Scale (FOIS) Functional Oral Intake Scale (FOIS) : Level I NAHOMI GN SLP - 04/11/2022 13:08 EDT Impressions, BS Swallow : Signs/Symptoms of pharyngeal dysphagia NAHOMI NG SLP - 04/11/2022 12:45 EDT Bedside Swallow Overall Impressions : Per MD notes, pt is a 61 year old female with PMHx significant for paraplegia, CKD, DM, HTN, and multiple recent hospitalizations. Pt is well known to ST service from February 2022 admission. Pt presented to [facility] ED 04/08 with c/o increased confusion and a fall at SNF. Pt's condition deteriorated requiring intubation in the ED. She was extubated yesterday and ST is asked to see for dysphagia. Pt is seen at bedside for dysphagia eval on CRRT, OK'd by RN. Pt's voice is entirely aphonic. Her cough is extremely weak. She is not able to achieve cord adduction with cued throat clears. Pt has multiple swallows and an intermittent cough with thin water presentations. She endorses the feeling that something is stuck in her throat though I feel this is likely related to sensitivity to Corpak. At this time, pt is not safe for PO diet and is not yet appropriate for instrumental. Given previous dysphagia and quick recovery following extubation, feel that she will likely be appropriate for FEES Thursday so will go ahead and place orders. Discussed with RN, continue TF via Corpak, pt may have ice and sips of water in moderation after oral care. Instruction given to pt to not whisper and attempt to use voice as she normally would, as well as pharyngeal contraction exs with ice over the weekend. [place] sign placed. NAHOMI NG SLP - 04/11/2022 13:08 EDT Swallow Recommendations Recommended Diet Type, SwRec : Non-oral feeding, NPO, OK for ice and water Swallow Position, SwRec : Upright 90 degrees Supervision Level w/Meals, SwRec : Assist, total Recommended Med Present, SwRec : Non-oral Recommended Exam, Sw Rec : FEES Repeat Swallow Exam Timeframe : 1-3 days NAHOMI NG SLP - 04/11/2022 13:08 EDT Therapy Indication Assessment HOUSE SHORER Indicated : Yes HOUSE SHORER Problem List : Impaired, Swallowing NAHOMI NG SLP - 04/11/2022 13:08 EDT Swallow Plan/Goals Treatment Frequency, HOUSE SHORER : 5 times per wk Treatment Plan Est w/Pt/Caregvr, Swallow : Yes NAHOMI NG SLP - 04/11/2022 13:08 EDT Swallow LTG Grid HOUSE SHORER Fairing Man Goal #1 HOUSE SHORER Correction Goal #2 Swallow LTG : Establish safe oral diet without aspiration Other: Pt goal: I want to go home Status : Initial NAHOMI NG SLP - 04/11/2022 13:08 EDT NAHOMI NG SLP - 04/11/2022 13:08 EDT Swallow Goals Grid Goal #1 Swallow STG : Other: FEES Related To : Measurement by repeat instrumental exam Date to Meet : 04/14/2022 EDT Status : Initial goal NAHOMI NG SLP - 04/11/2022 13:08 EDT Education Barriers To Learning : None evident Individuals Taught : Patient NAHOMI NG SLP - 04/11/2022 13:08 EDT HOUSE SHORER Education Assessment Grid 1 Aspiration : Needs further teaching Free Water Protocol : Verbalizes understanding, Needs further teaching Ice Chips : Needs further teaching, Verbalizes understanding Non-Oral Nutrition : Verbalizes understanding, Needs further teaching Oral Care : Verbalizes understanding, Needs further teaching NAHOMI NG SLP - 04/11/2022 13:[address] [facility] HOUSE SHORER Charges HOUSE SHORER EA ADDL 15 MIN NO CHARGE : 1 NAHOMI NG SLP - 04/11/2022 14:48 EDT Evaluation Swallowing Function : 1 NAHOMI NG SLP - 04/11/2022 13:08 EDT Anticipated Discharge Needs, HOUSE SHORER Anticipated Discharge to : Unit, intermediate Recommend Continued Therapy at Discharge : Yes NAHOMI NG SLP - 04/11/2022 13:08 EDT documented in this encounter Plan of Treatment Not on file documented as of this encounter Visit Diagnoses Not on filedocumented in this encounter
--- OUTSIDE RECORDS SUMMARY | 2025-02-21 13:41 | XMS_ITS | Encounter Summary ---
Author Organization [employer] Address [address] [place] [address] Care Team Providers Care Commercial Hvac Service Technician Name Role Phone Unavailable Primary Care Provider Nathalia martin Encounter Details Date Type Department Care Team (Late st Contact Info) Description 04/22/2022 Transcribed Document [facility] [place] [facility] [place] [address] ProviderFlorentino MD [address] [place] [address] Social History Tobacco Use Types Packs/Day Years Used Date Smoking Tobacco: Never Assessed Comments Unknown Sex and Gender Information Value Date Recorded Sex Assigned at Not on file Legal Sex Female 1:44 PM CDT Gender Identity Not on file Sexual Orientation Not on file documented as of this encounter Miscellaneous Notes * Cerner Conversion Note - Historical ProviderMD - 04/22/2022 4:02 PM CDT Discharge Summary, PT Entered On: 04/22/2022 16:04 EDT Performed On: 04/22/2022 16:02 EDT by EDUARDO SETH PT Discharge Summary Discharge Summary Provider Notified : Nursing Reason for Discharge : Discharge order Discharged to, Therapy : Home, with home health Discharge Summary Comment, PT : Per last PT note, Pt supine in bed upon PTx entry and found to have a BM. She rolled L and R 2x w/ modA and received totalA for pericare. pt's sacrum found to be slightly red and pt given foam pad and barrier cream as a preventative measure; RN notified of this. Once cleaned and given new gown, she sat EOB w/ Heather and maintained Sup for sitting. She performed x10 scapular retractions and core intiation exercises. She then performed dynamic reaching tasks w/ Sup-Heather to maintain sitting balance. While EOB, she performed ADLs and punch outs. Pt returned to long-sitting and practiced scooting forward and backward w/ use of head-hip relationship. She then performed tricep press-ups and [id number] sits, focusing on core strength. Pt encouraged to perform tricep pressess and long sit exercises daily. pt left supine in bed w/ all needs met and call light in reach. Patient met 1/3 STG and 0/3 LTG. Patient with orders in chart to discharge home with home health. EDUARDO SETH, PT - 04/22/2022 16:02 EDT Short Term Goals Mobility/Bed Mobility STG PT Grid Goal #1 Activity : Supine to sit Assist : Assist, moderate Equipment : Rail, bed Date to Meet : 04/19/2022 EDT Goal Status : Goal met Date Met : 04/13/2022 EDT EDUARDO SETH, PT - 04/22/2022 16:02 EDT Transfer STG Grid Goal #1 Destination : Wheelchair, standard Type : Squat Pivot Sit Assist : Assist, moderate Equipment : Belt, gait Date to Meet : 04/19/2022 EDT Goal Status : Not met Comment : see below EDUARDO SETH, PT - 04/22/2022 16:02 EDT Other PT STG Grid Goal #1 Goal : Pt will propel w/c 50' with supervision Date to Meet : 04/19/2022 EDT Goal Status : Not met EDUARDO SETH, PT - 04/22/2022 16:02 EDT Photographic Equipment Assembler Goals Mobility/Bed Mobility LTG PT Grid Goal #1 Activity : Supine to sit Assist : Supervision or set-up Equipment : Rail, bed Date to Meet : 04/26/2022 EDT Goal Status : Not met EDUARDO SETH, PT - 04/22/2022 16:02 EDT Transfer LTG Grid Goal #1 Destination : Wheelchair, standard Type : Squat Pivot Sit Assist : Supervision or set-up Equipment : Belt, gait Date to Meet : 04/26/2022 EDT Goal Status : Not met Comment : see below EDUARDO SETH, PT - 04/22/2022 16:02 EDT Other PT LTG Grid Goal #1 Other : Pt will propel w/c 200' independently Date to Meet : 04/26/2022 EDT Goal Status : Not met EDUARDO SETH, PT - 04/22/2022 16:02 EDT documented in this encounter Plan of Treatment Not on file documented as of this encounter Visit Diagnoses Not on filedocumented in this encounter
--- OUTSIDE RECORDS SUMMARY | 2025-02-21 13:41 | XMS_ITS | Encounter Summary ---
Author Organization [employer] Address [address] [place] [id number] Care Team Providers Care Ict Developer Name Role Phone Unavailable Primary Care Provider Unavailabl e Encounter Details Date Type Department Care Team (Late st Contact Info) Description 04/24/2022 Transcribed Document [facility] [place] [address] [place] [address] ProviderFlorentino MD [address] [place] [address] Social History Tobacco Use Types Packs/Day Years Used Date Smoking Tobacco: Never Assessed Comments Unknown Sex and Gender Information Value Date Recorded Sex Assigned at Not on file Legal Sex Female 1:44 PM CDT Gender Identity Not on file Sexual Orientation Not on file documented as of this encounter Miscellaneous Notes * Cerner Conversion Note - Florentino Lynne MD - 04/24/2022 10:44 PM CDT Patient: ALYSSA AZUL Age: 61 years Sex: Female : 1960 Associated Diagnoses: None Author: HIGINIO AREVALO MD-INF Antibiotics: meropenem CC: Sacral wound Subjective: Patient without fever stable on meropenem still working on disposition plan Objective: Vitals Signs (last 24 hrs) Last Charted Minimum Maximum Temp H 99.9 (APR 24 19:16) 97.9 (APR 24 09:55) 99.4 (APR 23 23:10) Mon HR 95 (APR 24 19:16) 66 (APR 23 23:10) 114 (APR 24 09:55) Resp Rate 16 (APR 24 19:00) 16 (APR 23 23:00) 16 (APR 23 23:00) SBP H 157 (APR 24 19:16) 117 (APR 23 23:34) H 189 (APR 23 23:10) DBP 86 (APR 24 19:16) 74 (APR 24 09:55) 86 (APR 24 19:16) MAP 117 (APR 24 19:16) 87 (APR 24 09:55) 117 (APR 24 19:16) SpO2 94 (APR 24 21:29) L 91 (APR 24 06:27) 100 (APR 24 03:00) PE: General: alert, oriented x3 HEENT: [...] (Last four charted values) WBC 4.9 (APR 24) 4.9 (APR 22) L 4.3 (APR 21) L 4.1 (APR 20) HB L 8.3 (APR 24) L 8.3 (APR 22) L 8.8 (APR 21) L 8.1 (APR 20) HCT L 25.7 (APR 24) L 26.3 (APR 22) L 27.7 (APR 21) L 25.4 (APR 20) Plt L 153 (APR 24) L 124 (APR 22) L 114 (APR 21) L 88 (APR 20) Na 139 (APR 24) 142 (APR 22) 140 (APR 21) 141 (APR 20) K 4.9 (APR 24) 4.4 (APR 22) 4.4 (APR 21) 4.2 (APR 20) Cl 108 (APR 24) 111 (APR 22) 109 (APR 21) 109 (APR 20) CO2 27 (APR 24) 27 (APR 22) 27 (APR 21) 28 (APR 20) BUN H 27 (APR 24) H 23 (APR 22) 22 (APR 21) 21 (APR 20) Cr H 1.40 (APR 24) H 1.20 (APR 22) H 1.30 (APR 21) H 1.30 (APR 20) Glu R H 119 (APR 24) L 53 (APR 22) 76 (APR 21) L 56 (APR 20) Ca 9.1 (APR 24) 9.1 (APR 22) 8.9 (APR 21) L 8.1 (APR 20) Lactic 1.0 (APR 14) 1.7 (APR 13) [...] alert fevers resolved and no crrt and 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 Platelets are stable continue on broad-spectrum coverage with improvement with Zosyn micafungin and meropenem White blood cell count down no fevers creatinine stable at 1.5 with CRP coming down we will begin de-escalation of antibiotics DC linezolid is now completed course of therapy and will need meropenem through 2022 to complete therapy Now fever improved normal white blood cell count thrombocytopenia improved with decreased C-reactive protein.. Overall infection issues have slowly improved continue meropenem RECOMMENDATIONS/PLANS: -Continue meropenem at current dose through 2022 to complete therapy -Looking for placement versus home with can be arranged documented in this encounter Plan of Treatment Not on file documented as of this encounter Visit Diagnoses Not on filedocumented in this encounter
--- OUTSIDE RECORDS SUMMARY | 2025-02-21 13:41 | XMS_ITS | Encounter Summary ---
Author Organization [facility] Address [address] [place] [address] Care Team Providers Care Admitting Interviewer Name Role Phone Unavailable Primary Care Provider Unavailabl e Encounter Details Date Type Department Care Team (Late st Contact Info) Description 04/11/2022 Transcribed Document [facility] [place] Medicine [facility] [place] [address] ProviderFlorentino MD [address] [place] [address] Social History Tobacco Use Types Packs/Day Years Used Date Smoking Tobacco: Never Assessed Comments Unknown Sex and Gender Information Value Date Recorded Sex Assigned at Not on file Legal Sex Female 1:44 PM CDT Gender Identity Not on file Sexual Orientation Not on file documented as of this encounter Miscellaneous Notes * Cerner Conversion Note - Florentino Lynne MD - 04/11/2022 11:09 AM CDT UM Authorization Entered On: 04/11/2022 11:12 EDT Performed On: 04/11/2022 11:09 EDT by SARAH MORALES RN Primary Insurance Authorization Authorization and Policy Numbers : Insurance 1 Health Plan: [facility] Policy Number: [id number] Authorization Number: Insurance Primary Name : [facility] - [id number] Authorization Status-Primary : Denied Reference Number-Primary : [id number] Authorized Service Begin Date-Primary : 04/08/2022 EDT Authorization Comments-Primary : Per Dr Perez she is agreeable to attempt p2p on Saturday 04/14. Called Logan back and he scheduled for thursday @ 2pm with Dr William calling Dr Cabello. Historical Authorization Comments-Primary : Comment 1: Per Katie she did not receive a call to complete this p2p. Called back in & per Orville he can reschedule with a physician. Informed him that I would need to reach out to a diff physician as the one from yesterday is off service now. He stated I can call back in and reschedule. (SARAH MORALES RN 04/11/2022 10:30) Comment 2: DELANEYhinamichelle agreed to attempt p2p. Scheduled for 04/[address] William calling Katie (SARAH MORALES RN 04/09/2022 15:26) Comment 3: Message sent to Katie for p2p. She has agreed to attempt. (SARAH MORALES RN 04/09/2022 13:02) Comment 4: PER [employer] IP AUTH PENDED. CLINICAL FAXED VIA [employer] (Digna Kidd Rn-Utilization Review 04/09/2022 11:31) Comment 5: Denied per fax 04/08/22 @ [id number] no resoning noted. Placed in Denials 2021 folder. (Mallory Sanchez, Medical Or Surgical Instrument Maker 04/09/2022 09:43) SARAH MORALES RN - 04/11/2022 11:09 EDT Electronically signed by Sumaya [facility] Conversion Rate Clerk Passenger Cerner at 12/21/2022 5:09 PM CDT documented in this encounter Plan of Treatment Not on file documented as of this encounter Visit Diagnoses Not on filedocumented in this encounter
--- OUTSIDE RECORDS SUMMARY | 2025-02-21 13:41 | XMS_ITS | Encounter Summary ---
Author Organization [employer] [facility] Address [address] [place] [address] Care Team Providers Care Tire Specialist Name Role Phone Unavailable Primary Care Provider Unavailabl e Encounter Details Date Type Department Care Team (Late st Contact Info) Description 04/11/[address] [facility] [place] Family Medicine [address] [place] [address] ProviderFlorentino MD [address] [place] [address] Social History Tobacco Use Types Packs/Day Years Used Date Smoking Tobacco: Never Assessed Comments Unknown Sex and Gender Information Value Date Recorded Sex Assigned at Not on file Legal Sex Female 1:44 PM CDT Gender Identity Not on file Sexual Orientation Not on file documented as of this encounter Miscellaneous Notes * Cerner Conversion Note - Florentino Lynne MD - 04/11/2022 7:21 PM CDT Patient: ALYSSA AZUL Age: 61 years Sex: Female : 1960 Associated Diagnoses: None Author: HIGINIO AREVALO MD-INF Antibiotics: Zyvox, meropenem, micafungin. CC: Sacral wound Subjective: Patient remains critically ill but down on pressors still on CRRT down on pressors and extubated Objective: Vitals Signs (last 24 hrs) Last Charted Minimum Maximum Mon HR 60 (APR 11 19:16) 40 (APR 11 00:00) 64 (APR 11 18:00) Resp Rate H 24 (APR 11 19:16) L 13 (APR 11 03:00) H 49 (APR 11 18:00) SBP 110 (APR 11 18:00) 94 (APR 11 11:45) H 145 (APR 11 06:30) DBP L 57 (APR 11 18:00) L 50 (APR 11 11:45) 68 (APR 10 23:00) MAP 69 (APR 11 18:00) 56 (APR 10 22:30) 113 (APR 11 08:30) SpO2 95 (APR 11 19:16) L 93 (APR 11 17:00) 100 (APR 10 19:30) T-max 96 PE: General: chronically ill-appearing HEENT: sclera white without conjunctival injection. No erythema, exudate or ulceration. No thrush present. Neck: Supple without nuchal rigidity Lungs: Bilateral rhonchi Cardiovascular: normal S1/S2; RRR, no m/r/g. Abdomen: soft, non-tender, non-distended, positive bowel sounds throughout. Lower extremity: No cyanosis, clubbing with lower extremity edema Neuro: paraplegia : Left hip and sacral wound with wound VAC in place LE with wounds LABS: Labs (Last four charted values) WBC 8.2 (APR 11) 10.0 (APR 11) H 16.6 (APR 10) H 14.0 (APR 09) HB L 7.0 (APR 11) L 6.4 (APR 11) L 7.2 (APR 10) L 7.3 (APR 09) HCT L 21.4 (APR 11) L 19.7 (APR 11) L 21.5 (APR 10) L 20.7 (APR 09) Plt L 111 (APR 11) L 131 (APR 11) 172 (APR 10) 190 (APR 09) Na L 135 (APR 11) L 135 (APR 11) L 135 (APR 11) 138 (APR 11) K 3.9 (APR 11) 4.0 (APR 11) 4.0 (APR 11) 3.8 (APR 11) Cl 105 (APR 11) 107 (APR 11) 106 (APR 11) 107 (APR 11) CO2 22 (APR 11) L 20 (APR 11) 23 (APR 11) 22 (APR 11) BUN 7 (APR 11) 7 (APR 11) 7 (APR 11) 8 (APR 11) Cr 0.60 (APR 11) 0.60 (APR 11) 0.60 (APR 11) L 0.50 (APR 11) Glu R H 148 (APR 11) H 139 (APR 11) H 157 (APR 11) H 144 (APR 11) Ca L 7.8 (APR 11) L 7.4 (APR 11) L 7.6 (APR 11) L 7.6 (APR 11) Lactic 0.6 (APR 10) 1.3 (APR 10) [...] 8.1 (APR 08) ALB L 2.3 (APR 11) L 2.1 (APR 11) L 2.2 (APR 11) L 2.1 (APR 11) Lipase H 919 (APR 11) H 638 (APR 10) H 1965 (APR 09) H 1603 (APR 08) MICRO: Urine culture with E. coli and Pseudomonas Wound culture with MRSA and Citrobacter, another gram-negative gaby IMAGING: Radiology Results (Last 48 hours) [id number] -- 04/08/2022 07:53 CR Chest 1 Vw [...] MD Thai CR Abdomen 1 Vw Portable (04/10/2022 17:13) Result: [...] continue broad-spectrum coverage with Zyvox, meropenem and micafungin RECOMMENDATIONS/PLANS: -Follow-up cultures, gram-negative rods in urine and wound culture at risk for multidrug-resistant organisms -Continue Zyvox, meropenem, and micafungin, de-escalate once susceptibilities return documented in this encounter Plan of Treatment Not on file documented as of this encounter Visit Diagnoses Not on filedocumented in this encounter
--- OUTSIDE RECORDS SUMMARY | 2025-02-21 13:41 | XMS_ITS | Encounter Summary ---
Author Organization [employer] Address [address] [place] [address] Care Team Providers Care Certified Pharmacy Tech Name Role Phone Unavailable Primary Care Provider Unavailabl e Encounter Details Date Type Department Care Team (Late st Contact Info) Description 04/24/2022 Transcribed Document [facility] [place] [address] [place] [address] ProviderFlorentino MD [address] [place] [address] Social History Tobacco Use Types Packs/Day Years Used Date Smoking Tobacco: Never Assessed Comments Unknown Sex and Gender Information Value Date Recorded Sex Assigned at Not on file Legal Sex Female 1:44 PM CDT Gender Identity Not on file Sexual Orientation Not on file documented as of this encounter Miscellaneous Notes * Cerner Conversion Note - Historical ProviderMD - 04/24/2022 11:[address] [facility] Charges Entered On: 04/24/2022 11:14 EDT Performed On: 04/24/2022 11:14 EDT by KAREN DE LUNA PT [facility] PT EA ADDL 15 MIN NO CHARGE : 2 KAREN DE LUNA PT - 04/24/2022 11:14 EDT documented in this encounter Plan of Treatment Not on file documented as of this encounter Visit Diagnoses Not on filedocumented in this encounter
--- OUTSIDE RECORDS SUMMARY | 2025-02-21 13:41 | XMS_ITS | Encounter Summary ---
Author Organization [facility] Address [address] [place] [address] Care Team Providers Care I O Psychologist Name Role Phone Unavailable Primary Care Provider Unavailabl e Encounter Details Date Type Department Care Team (Late st Contact Info) Description 05/07/2022 Transcribed Document [facility] [place] [address] [place] [address] ProviderFlorentino MD [address] [place] [address] Social History Tobacco Use Types Packs/Day Years Used Date Smoking Tobacco: Never Assessed Comments Unknown Sex and Gender Information Value Date Recorded Sex Assigned at Not on file Legal Sex Female 1:44 PM CDT Gender Identity Not on file Sexual Orientation Not on file documented as of this encounter Miscellaneous Notes * Cerner Conversion Note - Florentino ProviderMD - 05/07/2022 9:50 AM CDT On Going Discharge Planning Entered On: 05/07/2022 9:50 EDT Performed On: 05/07/2022 9:50 EDT by ERIK GALARZA Fiscal Analyst-Grain And Yeast Plants Supervisor Care Management Progress Note Discharge Arrangements : [...] Attend Multidisciplinary Rounds? : Yes ERIK GALARZA, Fiscal Analyst-Grain And Yeast Plants Supervisor - 05/07/2022 9:50 EDT Narrative Progress Note Narrative Progress Note : CM spoke with patient about going home tomorrow or Thursday after IV abx completion. Patient stated that she wants to go to [facility] or [facility]. She stated that she [...] snf offer. Cm will continue to follow. Historical Progress Note : Patient will be on iv abx until 05/08. She will then need to discharge home with family. Can't receive HH due to insurance and location. Will likely need outpatient wound care follow up. Need resources from a place from mom. Maybe a trapeze bar. Cm will continue to follow. ERIK GALARZA, Fiscal Analyst-Grain And Yeast Plants Supervisor - 05/06/22 14:19:48 RRS HIGH, LOS 3, ELOS 3 Cefepime and micafungin iv until 9.8-Per [employer], rxs at at home are covered at 100%--PICC was refused by pt so will get groshong but can't be placed until 9.6. Pt is seeking [facility] and per liaison, [facility] administration has declined referral. Referrals were made 9.1 and per signature, the denial was based on pt's insurance. Preferred snf, [facility] and [facility] both declined. One interested facility[facility] was updated. Per [facility], pt's insurance is [employer] [facility] and there are no accepting HH agencies in pt's home zipcode. Dtr states pt's primary is [employer] Medicaid but [facility] shows as 2nd and D-I-L cannot produce paperwork that shows [employer] as primary. DCP may include completion of iv abx in hospital as she will not have HH to monitor iv abx and groshong and pt does not have transportation to outpt infusion center, stating he son and D-I-L work. TRISTAN TAYLOR, RN-Delphi Programmer - 05/02/22 15:55:36 RRS HIGH, LOS 2, ELOS 3 Discharged 8.27 and readmitted 8.28 Sepsis-uti Cefepime and micafungin iv until 9.8 Per [facility], pt's insurance is [employer] Medicaid with 2nd as [place] Medicaid. Pt agreed to snf-[facility] referral with [facility]. Per patricia, pt is declined. Pt agreed to [facility] and 2nd to [place]. If pt discharges to home because there are no acceting snfs, only insurance accepted [place] Medicaid NOT [employer] Medicaid. Will need precert for snf and potential transportation. TRISTAN TAYLOR, RN-Delphi Programmer - 05/01/22 15:43:47 Patient is now on [...] CM will continue to follow. ERIK GALARZA, Fiscal Analyst-Grain And Yeast Plants Supervisor - 04/30/22 14:16:00 ERIK GALARZA, Fiscal Analyst-Grain And Yeast Plants Supervisor - 05/07/2022 9:50 EDT documented in this encounter Plan of Treatment Not on file documented as of this encounter Visit Diagnoses Not on filedocumented in this encounter
--- OUTSIDE RECORDS SUMMARY | 2025-02-21 13:41 | XMS_ITS | Encounter Summary ---
Author Organization [employer] Address [address] [place] [address] Care Team Providers Care It Systems Analyst Name Role Phone Unavailable Primary Care Provider Unavailabl e Encounter Details Date Type Department Care Team (Late st Contact Info) Description 04/11/2022 Transcribed Document [facility] [place] Family Medicine [facility] [place] [address] ProviderFlorentino MD [address] [place] [address] Social History Tobacco Use Types Packs/Day Years Used Date Smoking Tobacco: Never Assessed Comments Unknown Sex and Gender Information Value Date Recorded Sex Assigned at Not on file Legal Sex Female 1:44 PM CDT Gender Identity Not on file Sexual Orientation Not on file documented as of this encounter Miscellaneous Notes * Cerner Conversion Note - Florentino Lynne MD - 04/11/2022 9:00 AM CDT [facility] Inpatient Documentation Entered On: 04/11/2022 11:49 EDT Performed On: 04/11/2022 9:00 EDT by Edwina Fraire LPNHHV-WMG-Xqmrmacfccy Therapy [facility]OCN Admission Date : Admit Date [...] team consulted to manage NPWT to left trochanter. Wound care crew team member at bedside patient on sport surface. Nurse at bedside to assist with turning patient. Wound care team removed old dressing and cleansed wound bed with saline wound wash, pat dry, prepped periwound skin with barrier film and draped, placed 1 pc black foam and bridged 1 pc black foam to left thigh and draped. NPWT is operating at 120mmHG. Noted patient has liquid stool and has developed MASD to buttock region and some yeast to groin and abdominal folds. MDRPI to left nare DTPI. If any changes to skin integrity please consult wound care dept. Edwina Fraire LPNJQM-CFE-Erlhbjvzqib Therapy - 04/11/2022 11:41 EDT Electronically signed by Sumaya, [facility] Conversion Paint Sprayer Sandblaster Cerner at 12/21/2022 5:07 PM CDT documented in this encounter Plan of Treatment Not on file documented as of this encounter Visit Diagnoses Not on filedocumented in this encounter
--- OUTSIDE RECORDS SUMMARY | 2025-02-21 13:41 | XMS_ITS | Encounter Summary ---
Author Organization [facility] Address [address] [place] [address] Care Team Providers Care Architectural Manager Name Role Phone Unavailable Primary Care Provider Unavailabl e Encounter Details Date Type Department Care Team (Late st Contact Info) Description 02/22/2022 Transcribed Document [facility] [place] [facility] [place] [address] ProviderFlorentino MD [facility] [place] [address] Social History Tobacco Use Types Packs/Day Years Used Date Smoking Tobacco: Never Assessed Comments Unknown Sex and Gender Information Value Date Recorded Sex Assigned at Not on file Legal Sex Female 1:44 PM CDT Gender Identity Not on file Sexual Orientation Not on file documented as of this encounter Miscellaneous Notes * Cerner Conversion Note - Florentino Lynne MD - 02/22/2022 4:16 PM CDT On Going Discharge Planning Entered On: 02/22/2022 16:17 EDT Performed On: 02/22/2022 16:16 EDT by Angeles Rushing RN Care Management Progress Note Discharge Arrangements : Patient Post-Acute Information Patient Name: ALSYSA AZUL Gender: Female : [birth year] Age: 61 Years No Post-Acute Placement(s) Listed No Post-Acute Service(s) Listed No [place] Referral(s) Listed Discharge Options Discussed with Patient : Discharge transportation, DME, Home Health, superintendent terminal rehabilitation Barriers to Discharge Identified : Clinical Condition of Patient Barriers to Discharge Unresolved : Clinical Condition of Patient Patient Discharge Goal : [facility] facility Patient Offered Choice/Affiliations Explained : No Designation of Choice Signed : No List/Info Provided Pt/Fam/Support Person : Other: none Were Referrals Sent to Post Acute Providers : No [facility] Quality Web Info Shared w Pt/Fam : No Does the Patient have a Floor to SNF Benefit? : No Referral Indicators For Complex SWK Interventions : Other: none Is the Patient Meeting Medical Necessity : Yes Physician Agreeable to Move Forward with D/C Plan? : Yes Did you Attend Multidisciplinary Rounds? : No Angeles Rushing RN - 02/22/2022 16:16 EDT Narrative Progress Note Narrative Progress Note : 61yo female admitted from [facility] after cardiac arrist. The pt was at [facility] after her sister found her at [...] course. INP> Mod. Angeles Rushing RN - 02/22/2022 16:16 EDT documented in this encounter Plan of Treatment Not on file documented as of this encounter Visit Diagnoses Not on filedocumented in this encounter
--- OUTSIDE RECORDS SUMMARY | 2025-02-21 13:41 | XMS_ITS | Encounter Summary ---
Author Organization [employer] Address [address] [place] [address] Care Team Providers Care Bellhop Service Captain Name Role Phone Unavailable Primary Care Provider Unavailabl e Encounter Details Date Type Department Care Team (Late st Contact Info) Description 05/07/2022 Transcribed Document [facility] [place] Family Medicine [address] [place] [address] ProviderFlorentino MD [address] [place] [address] Social History Tobacco Use Types Packs/Day Years Used Date Smoking Tobacco: Never Assessed Comments Unknown Sex and Gender Information Value Date Recorded Sex Assigned at Not on file Legal Sex Female 1:44 PM CDT Gender Identity Not on file Sexual Orientation Not on file documented as of this encounter Miscellaneous Notes * Cerner Conversion Note - Florentino ProviderMD - 05/07/2022 5:00 PM CDT Chart Check - Review Order Profile Entered On: 05/07/2022 16:14 EDT Performed On: 05/07/2022 17:00 EDT by Afshan Cordoba Rn-Traveldeepika Chart Check Powerplans Initiated/Discontinued as Appropriate : Yes All Active Orders Reviewed : Yes Afshan Cordoba Rn-Traveler - 05/07/2022 16:14 EDT documented in this encounter Plan of Treatment Not on file documented as of this encounter Visit Diagnoses Not on filedocumented in this encounter
--- OUTSIDE RECORDS SUMMARY | 2025-02-21 13:42 | XMS_ITS | Encounter Summary ---
Author Organization [employer] Address [address] [place] [address] Care Team Providers Care Technician Support Engineer Name Role Phone Unavailable Primary Care Provider Unavailabl e Encounter Details Date Type Department Care Team (Late st Contact Info) Description 04/21/2022 Transcribed Document [facility] [place] Family Medicine [address] [place] [address] ProviderFlorentino MD [address] [place] [address] Social History Tobacco Use Types Packs/Day Years Used Date Smoking Tobacco: Never Assessed Comments Unknown Sex and Gender Information Value Date Recorded Sex Assigned at Not on file Legal Sex Female 1:44 PM CDT Gender Identity Not on file Sexual Orientation Not on file documented as of this encounter Miscellaneous Notes * Cerner Conversion Note - Florentino Lynne MD - 04/21/2022 11:23 AM CDT Patient: ALYSSA AZUL Age: 61 years Sex: Female : 1960 Associated Diagnoses: None Author: CHICA RAZA MD-[facility] Subjective Chief complaint. 04/21/22 awake weak no fever Health Status Allergies: [...] History of obstructive sleep apnea / IMO [id number] / Confirmed Diabetes / SNOMED CT 532224822 / Confirmed, Active Problems (6) Chronic kidney disease (CKD), stage III (moderate) Diabetes History of obstructive sleep apnea Hyperlipidemia Hypertension Paraplegia Objective VS/Measurements Vitals Signs (last 24 hrs) Last Charted Minimum Maximum Temp 99.4 (APR 21 06:11) 99.4 (APR 21 06:11) H 100 (APR 20 22:00) Mon HR 109 (APR 21 09:35) 51 (APR 21 06:11) 109 (APR 20 19:00) Resp Rate 20 (APR 21 06:11) 18 (APR 20 11:49) H 21 (APR 20:22) SBP H 169 (APR 21 06:11) 130 (APR 20 19:00) H 169 (APR 21 06:11) DBP 82 (APR 21 06:11) 66 (APR 20 14:00) 83 (APR 20 19:00) MAP 107 (APR 21 06:11) 81 (APR 20 14:00) 113 (APR 20:) SpO2 96 (APR 21 09:35) 94 (APR 21 06:11) 97 (APR 20:) General: Alert and oriented, No acute distress. Eye: Pupils are equal, round and reactive to light, Normal conjunctiva. HENT: Normocephalic, Normal hearing. Neck: Supple. Respiratory: Respirations are non-labored, Breath sounds are equal. Cardiovascular: Normal rate. Gastrointestinal: Soft, Non-tender. Integumentary: Warm. Neurologic: Alert, Oriented. Psychiatric: Cooperative, Appropriate mood & affect. Results Review APR 21 06: 140 109 22 / 76 4.4 27 H 1.30 \ APR 21 06:30 \ L 8.8 / L 4.3 L 114 / L 27.7 \ APR 21 06:30 140 109 22 / 76 4.4 27 H 1.30 \ APR 21 06:30 \ L 8.8 / L 4.3 L 114 / L 27.7 \ Impression and Plan #Severe septic shock [...] 17. Bed-bound. 18. Hypertension. Anemia blood transfusion done Disposition: waiting for placement Expected d/c date - possibly in next 2-3 days DW CM time spent 29 min documented in this encounter Plan of Treatment Not on file documented as of this encounter Visit Diagnoses Not on filedocumented in this encounter
--- OUTSIDE RECORDS SUMMARY | 2025-02-21 13:42 | XMS_ITS | Encounter Summary ---
Author Organization [employer] Address [address] [place] [address] Care Team Providers Care Drosser Name Role Phone Unavailable Primary Care Provider Unavailabl e Encounter Details Date Type Department Care Team (Late st Contact Info) Description 02/22/2022 Transcribed Document [facility] [place] [address] [place] [address] ProviderFlorentino MD [address] [place] [address] Social History Tobacco Use Types Packs/Day Years Used Date Smoking Tobacco: Never Assessed Comments Unknown Sex and Gender Information Value Date Recorded Sex Assigned at Not on file Legal Sex Female 1:44 PM CDT Gender Identity Not on file Sexual Orientation Not on file documented as of this encounter Miscellaneous Notes * Cerner Conversion Note - Historical ProviderMD - 02/22/2022 7:30 PM CDT Pain Assessment Entered On: 02/23/2022 2:10 EDT Performed On: 02/23/2022 0:49 EDT by Junie Dorsey Rn Flex II Intervention Information: fentaNYL Performed by Junie Dorsey Rn Flex II on 02/23/2022 00:19:00 EDT fentaNYL,50mcg IV Push,PICC medial,Pain Pain Assessment Pain Assessment : Follow-up assessment Pain Scale Goal : 2 Pain Scale Used : CPOT Pain Improved by Intervention : Yes Junie Dorsey Rn Flex II - 02/23/2022 2:09 EDT documented in this encounter Plan of Treatment Not on file documented as of this encounter Visit Diagnoses Not on filedocumented in this encounter
--- OUTSIDE RECORDS SUMMARY | 2025-02-21 13:42 | XMS_ITS | Encounter Summary ---
Author Organization [employer] Address [address] [place] [address] Care Team Providers Care Felt Cutter Name Role Phone Unavailable Primary Care Provider Unavailabl e Encounter Details Date Type Department Care Team (Late st Contact Info) Description 02/22/2022 Transcribed Document [facility] [place] Family Medicine [address] [place] [address] ProviderFlorentino MD [address] [place] [address] Social History Tobacco Use Types Packs/Day Years Used Date Smoking Tobacco: Never Assessed Comments Unknown Sex and Gender Information Value Date Recorded Sex Assigned at Not on file Legal Sex Female 1:44 PM CDT Gender Identity Not on file Sexual Orientation Not on file documented as of this encounter Miscellaneous Notes * Cerner Conversion Note - Florentino Lynne MD - 02/22/2022 5:59 AM CDT Admission History, Adult Entered On: 02/22/2022 6:00 EDT Performed On: 02/22/2022 5:59 EDT by Bridgette Ribera RN-PATIENT CARE BEDSIDE NON-EXEMP Advance Directive Patient has Advance Directive *Q : No, patient refuses Advance Directive information Junie Dorsey Rn Flex II - 02/22/2022 23:32 EDT Anesthesia/Transfusion History Family History of Anesthesia Reaction : Unknown Transfusion History : Unknown Family History of Anesthesia Reaction : Unknown Junie Dorsey Rn Flex II - 02/22/2022 23:32 EDT Anticipated Discharge Needs Discharge To, Anticipated : Rehabilitation unit/facility Anticipated Discharge Needs at This Time : ADLs, Diabetic education, Equipment, Nursing, Occupational therapy, Physical Therapy, Home Restoration Service Supervisor, Transportation, Wound/Ostomy care Junie Dorsey Rn Flex II - 02/22/2022 23:32 EDT Functional Assessment Living Situation : Home Patient Lives With : Alone Persons Assisting Patient at Home : Child/Children Current Daily Living Assistance : ADLs, Transportation Mobility Assistance Prior to Admission : Use of assistive devices ALANIZ Hx Falls Immediate/Within 3 Months : No Current Home Treatments : CPAP Home Equipment : CPAP unit, Wheelchair Junie Dorsey Rn Flex II - 02/22/2022 23:32 EDT General Info Unable to Assess Patient History : Patient intubated Arrived From : Acute Care Facility Mode of Arrival on Unit : Stretcher Legal Guardian : Unaccompanied Want Family/Rep/Phys Notified of Admit : No Primary Language : Lao Communication Barrier : None Website Optimization Strategist Needed : Junie Pinto Rn Flex II - 02/22/2022 23:32 EDT Emergency Contact #1 : FREDO Azul Emergency Contact #1 Emergency Contact #1 Relationship : son Emergency Contact #2 : Divine Jorge Alberto Emergency Contact #2 Emergency Contact #2 Relationship : [email or web address] Bridgette Ribera, RN-PATIENT CARE BEDSIDE NON-EXEMP - 02/22/2022 5:59 EDT Fall Risk Scales ABCs Fall Injury Risk Identification : Coagulation ABC Fall Injury Risk : Moderate to high injury risk Injury Moderate to High Risk Interventions : Bed alarm on ALANIZ Hx Falls Immediate/Within 3 Months : No Alaniz Secondary Diagnosis : Yes ALANIZ Use of Ambulatory Aid : None ALANIZ IV Therapy or IV Access : Yes Alaniz Gait/Transferring : Normal, bedrest, immobile Alaniz Mental Status : Oriented to own ability Alaniz Fall Risk Score : 35 ALANIZ Fall Scale Risk Level : 25-45 Medium Risk [place] Fall Interventions : Adequate lighting, Bed in low position, Call device within reach, Fall prevention handout/education per facility policy, Frequent orientation to call device, Frequent orientation to surroundings, Hourly comfort/safety rounds, Non-slip footwear, Personal items within reach, Reinforced to call for assistance before getting out of bed, Room free of clutter/spills, Upper side-rails up, Wheels locked, Wires/Cords secured Fall Moderate to High Risk Interventions : Bed alarm on Barriers to Learning : Acuity of Illness Fall Risk Scale Calc Temp : 0 Junie Dorsey Rn Flex II - 02/22/2022 23:32 EDT Health Histories Smoking Status : Never (less than 100 in lifetime; none in last 30 days) Smokeless Tobacco Status : Never Junie Dorsey Rn Flex II - 02/22/2022 23:32 EDT Social History (As Of: 02/22/2022 23:37:17 EDT) Height and Weight, Clinical Dosing Height Source : Estimated Height Entry Format : [place] Height, Feet : 5 ft(Converted to: 152 cm, 60 Inch) Height, Inches : 4 Inch(Converted to: 0 ft 4 Inch, 10.16 cm) Clinical Height : 162.56 cm Weight Source : Bed scale Weight Entry Format : Metric, kilograms Weight, Kilograms : 94.2 kg(Converted to: 207 lb 11 oz) Clinical Dosing Weight : 94.2 kg Body Surface Area (BSA) : 1.99 m2 Body Mass Index : 35.6 kg/m2 (HI) [place] Body Weight : 54 kg Junie Dorsey Rn Flex II - 02/22/2022 23:32 EDT Infectious Disease History Does patient have symptoms of COVID-19? : No Tested for COVID19 in the past 14 days : Yes, Patient stated results Negative Does the Patient state known exposure to a COVID-19 positive case in the last 14 days? : No Patient Vaccinated for COVID-19 : Unable to obtain Junie Dorsey Rn Flex II - 02/22/2022 23:32 EDT Infectious Disease Risk Screening Grid Cough < 2 wks of unknown origin : Unable to obtain Cough > 2 weeks : Unable to obtain Blood in Sputum : Unable to obtain Fever or self-reported Fever : Yes Rash of unknown origin : Unable to obtain Headache : Unable to obtain Stiff neck : Unable to obtain Night Sweats : Unable to obtain Unexplained Weight Loss : Unable to obtain Diarrhea (3 episode per day) : Unable to obtain Junie Dorsey Rn Flex II - 02/22/2022 23:32 EDT Physical contact outside [place] in the last 30 days : No Hospitalized in Foreign Country : No Infectious Disease History : Unable to assess INF Disease TB Screening Calc : 1 INF Disease Recent Travel Calc : 0 Junie Dorsey Rn Flex II - 02/22/2022 23:32 EDT Influenza Vaccine Asmt, Adult Previous Vaccines from Immunization Schedule : No qualifying data available. Influenza Immunization, Current Season : Outside of influenza season Junie Dorsey Rn Flex II - 02/22/2022 23:32 EDT Pneumococcal Vaccine Previous Vaccines from Immunization Schedule : No qualifying data available. Pneumonia Immunization Received : Unknown Pneumococcal Risk Assessment < Age 65 : Diabetes Pneumococcal Vaccine Contraindications : No contraindications to pneumococcal vaccine Transplant Workup/Recent Transplant : No Order for Pneumococcal Vaccine : Declined Vaccination Junie Dorsey Rn Flex II - 02/22/2022 23:32 EDT Order Details Transport Mode Order Detail : Bed (including specialty) IV Order Detail : 1 Oxygen Order Detail : 1 Nurse Collect Order Detail : 1 Lift/Transfer : Maximal assist Central Line Order Detail : No Room Service : Appropriate Arterial Line : No Patient Needs Meds Crushed/Liquid : Yes Meds Administered Via Tube : Yes Junie Dorsey Rn Flex II - 02/22/2022 23:32 EDT Nutrition History Feeding Ability : Independent Adaptive Feeding Equipment : None Eating Poorly Due to Decreased Appetite : No Unplanned Weight Loss in Past 3-6 Months : No Malnutrition Screening Tool Total(mal) : 0 Malnutrition Screening Tool Risk Level : Patient not at risk Junie Dorsey Rn Flex II - 02/22/2022 23:32 EDT [place] Suicide Severity Rating Scale (C-SSRS) CSSRS Past Month Wish to be : Unable to obtain CSSRS Past Month Suicidal Thoughts : Unable to obtain CSSRS Lifetime Suicide Behavior : Unable to obtain Suicide Severity Rating Score : -105 Suicide Severity Rating : Reassessment required Junie Dorsey Rn Flex II - 02/22/2022 23:32 EDT Psychosocial History Does Someone Depend on You for Care? : No Currently in Unsafe Situation : No Junie Dorsey Rn Flex II - 02/22/2022 23:32 EDT Sleep Apnea Risk Assmt BiPAP/CPAP Ordered for Home Use : Yes Hx of Obstructive Sleep Apnea Diagnosis : Yes BiPAP/CPAP Used at Home : Yes Age over 50 Years Old : Yes Gender Male : No Junie Dorsey Rn Flex II - 02/22/2022 23:32 EDT Valuables and Belongings Valuables and Belongings : Clothing Clothing : Common streetwear Clothing Disposition : Bedside Junie Dorsey Rn Flex II - 02/22/2022 23:32 EDT documented in this encounter Plan of Treatment Not on file documented as of this encounter Visit Diagnoses Not on filedocumented in this encounter
--- OUTSIDE RECORDS SUMMARY | 2025-02-21 13:42 | XMS_ITS | Encounter Summary ---
Author Organization [employer] Address [address] [place] [address] Care Team Providers Care Senior Education Specialist Name Role Phone Unavailable Primary Care Provider Unavailabl e Encounter Details Date Type Department Care Team (Late st Contact Info) Description 03/01/2022 Transcribed Document [facility] [place] Family Medicine [address] [place] [address] ProviderFlorentino MD [address] [place] [address] Social History Tobacco Use Types Packs/Day Years Used Date Smoking Tobacco: Never Assessed Comments Unknown Sex and Gender Information Value Date Recorded Sex Assigned at Not on file Legal Sex Female 1:44 PM CDT Gender Identity Not on file Sexual Orientation Not on file documented as of this encounter Miscellaneous Notes * Cerner Conversion Note - Florentino Lynne MD - 03/01/2022 4:30 PM CDT Patient: ALYSSA AZUL Age: 61 years Sex: Female : 1960 Associated Diagnoses: None Author: HIGINIO AREVALO MD-INF Antibiotics: Zosyn CC: Sacral wound Subjective: Patient with respiratory distress again tachypnea elevated blood pressure with respiratory failure now reintubated on IV Zosyn being transferred to [facility] pulmonary and critical care White blood cell count elevated Objective: Vitals Signs (last 24 hrs) Last Charted Minimum Maximum Temp 97 (MAR 01 14:30) 97 (MAR 01 14:30) 97.6 (FEB 28 17:27) Mon HR 93 (MAR 01 16:15) 63 (MAR 01 01:15) 108 (MAR 01 13:45) Resp Rate 17 (MAR 01 16:15) 16 (FEB 28 17:27) H 35 (MAR 01 12:19) SBP H 159 (MAR 01 16:15) 133 (MAR 01 14:00) H 199 (MAR 01 12:39) DBP 89 (MAR 01 16:15) 70 (MAR 01 01:15) H 99 (MAR 01 15:30) MAP 115 (MAR 01 16:15) 88 (MAR 01 01:15) 131 (MAR 01 15:45) SpO2 99 (MAR 01 16:15) L 85 (FEB 28 17:27) 100 (MAR 01 09:08) PE: General: Patient sedated on mechanical ventilation [...] Labs (Last four charted values) WBC H 24.6 (MAR 01) 8.2 (MAR 01) 10.0 (FEB 28) 9.0 (FEB 27) HB L 10.1 (MAR 01) L 7.9 (MAR 01) L 7.8 (FEB 28) L 8.6 (FEB 27) HCT L 32.6 (MAR 01) L 25.7 (MAR 01) L 25.1 (FEB 28) L 27.5 (FEB 27) Plt 296 (MAR 01) 163 (MAR 01) 197 (FEB 28) 190 (FEB 27) Na 146 (MAR 01) H 148 (MAR 01) H 147 (FEB 28) H 148 (FEB 27) K 4.3 (MAR 01) 4.0 (MAR 01) 4.0 (FEB 28) L 3.2 (FEB 27) Cl H 113 (MAR 01) H 116 (MAR 01) H 113 (FEB 28) H 113 (FEB 27) CO2 23 (MAR 01) 24 (MAR 01) 23 (FEB 28) 22 (FEB 27) BUN H 61 (MAR 01) H 58 (MAR 01) H 53 (FEB 28) H 50 (FEB 27) Cr H 2.83 (MAR 01) H 2.76 (MAR 01) H 2.94 (FEB 28) H 3.12 (FEB 27) Glu R H 215 (MAR 01) H 133 (MAR 01) H 178 (FEB 28) 97 (FEB 27) Ca 8.8 (MAR 01) L 8.1 (MAR 01) L 8.2 (FEB 28) 8.5 (FEB 27) Lactic 1.7 (MAR 01) 0.9 (FEB 22) 0.7 (FEB 22) AST 15 (MAR 01) 9 (MAR 01) 13 (FEB 26) 13 (FEB 24) ALT 18 (MAR 01) 13 (MAR 01) 15 (FEB 26) 16 (FEB 24) ALK P 58 (MAR 01) 45 (MAR 01) 51 (FEB 26) 49 (FEB 24) T Bili 0.4 (MAR 01) 0.4 (MAR 01) 0.4 (FEB 26) 0.4 (FEB 24) PTN 7.1 (MAR 01) L 5.9 (MAR 01) L 6.1 (FEB 26) L 5.4 (FEB 24) ALB L 2.8 (MAR 01) L 2.3 (MAR 01) L 1.9 (FEB 26) L 1.7 (FEB 24) MICRO: Outside BAL with gram-negative diplococci IMAGING: Radiology Results (Last 48 hours) [id number] -- 02/22/2022 00:01 CT Abdomen Pelvis WO [...] by Dr. Julio Cesar Russell.Transcribed by Jorgito Nicolas. IMPRESSION: -Right perihilar consolidation suspect aspiration pneumonia now with second reintubation - Large left gluteal soft tissue infection, ulceration, necrosis, to level of soft tissue: Status post I&D x3 at [facility]. -Acute hypoxic respiratory failure: Pneumonia & edema [...] CMP, CRP, - Continue Zosyn, renally dosed -Plans to be transferred to [facility] I will have my partner case picker on Thursday at [facility] continue Zosyn follow-up cultures documented in this encounter Plan of Treatment Not on file documented as of this encounter Visit Diagnoses Not on filedocumented in this encounter
--- OUTSIDE RECORDS SUMMARY | 2025-02-21 13:42 | XMS_ITS | Encounter Summary ---
Author Organization [email or web address] Address [address] [place] [address] Care Team Providers Care Creosoting Engineer Name Role Phone Unavailable Primary Care Provider Unavailabl e Encounter Details Date Type Department Care Team (Late st Contact Info) Description 02/22/2022 Transcribed Document [facility] [address] [place] [address] ProviderFlorentino MD [address] [place] [address] Social History Tobacco Use Types Packs/Day Years Used Date Smoking Tobacco: Never Assessed Comments Unknown Sex and Gender Information Value Date Recorded Sex Assigned at Not on file Legal Sex Female 1:44 PM CDT Gender Identity Not on file Sexual Orientation Not on file documented as of this encounter Miscellaneous Notes * Cerner Conversion Note - Florentino Lynne MD - 02/22/2022 4:04 PM CDT Initial Discharge Planning Entered On: 02/22/2022 16:16 EDT Performed On: 02/22/2022 16:04 EDT by Angeles Rushing RN Initial Assessment I Previously Documented Living Environment : No qualifying data available. Living Situation : Home Patient Lives With : Alone Is the Patient a Caregiver at Home? : No Emergency Contact #1 : FREDO Jorge Alberto Emergency Contact #1 Emergency Contact #1 Relationship : son Emergency Contact #2 : Divine Jorge Alberto Emergency Contact #2 Emergency Contact #2 Relationship : [id number] Enter Doctors Name : Dr. Cabello Does Patient have PCP Listed? : Yes Legal Guardian : No Is Guardianship Needed : No Angeles Rushing RN - 02/22/2022 16:04 EDT Initial Assessment II Sensory and Motor Deficits : Paraplegia Current Home Treatments and Equipment : CPAP Services and Community Resources : Other: none Does the Patient have a Floor to SNF Benefit? : No Angeles Rushing RN - 02/22/2022 16:04 EDT Discharge Needs I Anticipated Discharge Date : 02/25/2022 EDT Anticipated Discharge To, CM : senior living facility Current Home Treatment/Equipment : Current Home Treatment/Equipment No qualifying data available. Post Acute/Home Treatments : None Documentation Status Complete : Yes Angeles Rushing RN - 02/22/2022 16:04 EDT Discharge Needs II Professional Skilled Services : Professional Skilled Services No qualifying data available. Services and Community Resources : Other: none Needs Assistance with Transportation : No Discharge Options Discussed with Patient : Discharge transportation, DME, Home Health, senior living rehabilitation Patient Discharge Goal : senior living facility Angeles Rushing RN - 02/22/2022 16:04 EDT Narrative Note Narrative Note : 61yo female admitted from [facility] after cardiac arrist. [facility] after her sister found her at home [...] INP> Mod. Angeles Rushing RN - 02/22/2022 16:04 EDT Electronically signed by Sumaya [facility] Conversion Drug Safety Coordinator Cerner at 12/21/2022 5:02 PM CDT documented in this encounter Plan of Treatment Not on file documented as of this encounter Visit Diagnoses Not on filedocumented in this encounter
--- OUTSIDE RECORDS SUMMARY | 2025-02-21 13:42 | XMS_ITS | Encounter Summary ---
Author Organization [employer] Address [address] [place] [address] Care Team Providers Care Patient Resource Coordinator Name Role Phone Unavailable Primary Care Provider Unavailabl e Encounter Details Date Type Department Care Team (Late st Contact Info) Description 02/22/2022 Transcribed Document [facility] Family Medicine [address] [place] [address] ProviderFlorentino MD [address] [place] [address] Social History Tobacco Use Types Packs/Day Years Used Date Smoking Tobacco: Never Assessed Comments Unknown Sex and Gender Information Value Date Recorded Sex Assigned at Not on file Legal Sex Female 1:44 PM CDT Gender Identity Not on file Sexual Orientation Not on file documented as of this encounter Miscellaneous Notes * Cerner Conversion Note - Florentino ProviderMD - 02/22/2022 5:00 AM CDT Chart Check - Review Order Profile Entered On: 02/22/2022 6:02 EDT Performed On: 02/22/2022 5:00 EDT by Bridgette Ribera RN-PATIENT CARE BEDSIDE NON-EXEMP Chart Check Powerplans Initiated/Discontinued as Appropriate : Yes All Active Orders Reviewed : Yes Bridgette Ribera RN-PATIENT CARE BEDSIDE NON-EXEMP - 02/22/2022 6:02 EDT documented in this encounter Plan of Treatment Not on file documented as of this encounter Visit Diagnoses Not on filedocumented in this encounter
--- OUTSIDE RECORDS SUMMARY | 2025-02-21 13:42 | XMS_ITS | Encounter Summary ---
Author Organization [employer] Address [address] [place] [address] Care Team Providers Care Nurse Informaticist Name Role Phone Unavailable Primary Care Provider Unavailabl e Encounter Details Date Type Department Care Team (Late st Contact Info) Description 04/23/2022 Transcribed Document [facility] [address] [place] [address] ProviderFlorentino MD [address] [place] [address] Social History Tobacco Use Types Packs/Day Years Used Date Smoking Tobacco: Never Assessed Comments Unknown Sex and Gender Information Value Date Recorded Sex Assigned at Not on file Legal Sex Female 1:44 PM CDT Gender Identity Not on file Sexual Orientation Not on file documented as of this encounter Miscellaneous Notes * Cerner Conversion Note - Historical ProviderMD - 04/23/2022 2:00 AM CDT Battalion Chief Details Entered On: 04/23/2022 3:27 EDT Performed On: 04/23/2022 2:00 EDT by Dulce Dallas RN Order [...] Crushed/Liquid : No Dulce Dallas RN - 04/23/2022 3:27 EDT documented in this encounter Plan of Treatment Not on file documented as of this encounter Visit Diagnoses Not on filedocumented in this encounter
--- OUTSIDE RECORDS SUMMARY | 2025-02-21 13:42 | XMS_ITS | Encounter Summary ---
Author Organization [employer] Address [address] [place] [address] Care Team Providers Care Operations Consultant Name Role Phone Unavailable Primary Care Provider Unavailabl e Encounter Details Date Type Department Care Team (Late st Contact Info) Description 04/22/2022 Transcribed Document [facility] [place] [address] [place] [address] ProviderFlorentino MD [address] [place] [address] Social History Tobacco Use Types Packs/Day Years Used Date Smoking Tobacco: Never Assessed Comments Unknown Sex and Gender Information Value Date Recorded Sex Assigned at Not on file Legal Sex Female 1:44 PM CDT Gender Identity Not on file Sexual Orientation Not on file documented as of this encounter Miscellaneous Notes * Cerner Conversion Note - Florentino Lynne MD - 04/22/2022 11:35 AM CDT RX Interventions Entered On: 04/22/2022 11:41 EDT Performed On: 04/22/2022 11:35 EDT by Lita Smith, Resident Pharmacist Clinical Interventions ZENA Prevention - Minor : Yes Lita Smith, Resident Pharmacist - 04/22/2022 11:35 EDT ZENA Prevention - Minor ZENA Prevention - Minor, Order : Patient has been hypoglycemic this morning with POC BG readings of 37, 57, and 60. D/w provider and will hold tonights glargine dose and resume tomorrow at a lower dose of glargine 10 units twice a day. ZENA Prevention - Minor, Response : Accepted ZENA Prevention - Minor, Value : 220 Dollar ZENA Prevention - Minor, Time : 15 Minute(s) Lita Smith, Resident Pharmacist - 04/22/2022 11:35 EDT documented in this encounter Plan of Treatment Not on file documented as of this encounter Visit Diagnoses Not on filedocumented in this encounter
--- OUTSIDE RECORDS SUMMARY | 2025-02-21 13:42 | XMS_ITS | Encounter Summary ---
Author Organization [employer] Address [address] [place] [address] Care Team Providers Care Office Auditor Name Role Phone Unavailable Primary Care Provider Unavailabl e Encounter Details Date Type Department Care Team (Late st Contact Info) Description 04/21/2022 Transcribed Document [facility] [place] [address] [place] [address] ProviderFlorentino MD [address] [place] [address] Social History Tobacco Use Types Packs/Day Years Used Date Smoking Tobacco: Never Assessed Comments Unknown Sex and Gender Information Value Date Recorded Sex Assigned at Not on file Legal Sex Female 1:44 PM CDT Gender Identity Not on file Sexual Orientation Not on file documented as of this encounter Miscellaneous Notes * Cerner Conversion Note - Historical ProviderMD - 04/21/2022 2:00 AM CDT Computed Tomography Technologist Details Entered On: 04/21/2022 4:04 EDT Performed On: 04/21/2022 2:00 EDT by Dulce Dallas RN Order [...] Crushed/Liquid : No Dulce Dallas RN - 04/21/2022 4:04 EDT documented in this encounter Plan of Treatment Not on file documented as of this encounter Visit Diagnoses Not on filedocumented in this encounter
--- OUTSIDE RECORDS SUMMARY | 2025-02-21 13:42 | XMS_ITS | Encounter Summary ---
Author Organization [email or web address] Address [address] [place] [address] Care Team Providers Care Lieutenant/Deputy Name Role Phone Unavailable Primary Care Provider Unavailabl e Encounter Details Date Type Department Care Team (Late st Contact Info) Description 03/01/2022 Transcribed Document [facility] Pulm & Critical Care Medicine [address] [place] [address] Rodrick Durbin MD [address] [place], [place] [id number] Social History Tobacco Use Types Packs/Day Years Used Date Smoking Tobacco: Never Assessed Comments Unknown Sex and Gender Information Value Date Recorded Sex Assigned at Not on file Legal Sex Female 1:44 PM CDT Gender Identity Not on file Sexual Orientation Not on file documented as of this encounter Miscellaneous Notes * Cerner Conversion Note - Rodrick Durbin MD - 03/01/2022 10:30 PM EDT Patient: IRMA AZUL Age: 61 years Sex: Female : 1960 Associated Diagnoses: None Author: ARTEM BURGER PA Procedure Central line insertion procedure Date/ Time: 03/01/2022 20:15:00. Confirmed: patient, procedure, side, site, safety procedures followed. Performed by: self. Informed consent: signed by family. Indication: medication delivery, need for venous access. Preparation: sterile preparation of site (in usual fashion, with 2% chlorhexidine gluconate, with full drapes, gown, gloves and mask), vessel was identified ultrasound guided, position (head turned to left, Trendelenburg). Anesthesia: local, 2% xylocaine, without epinephrine, 1.5 ml. See MAR. Technique: percutaneous, Seldinger technique used (modified), ultrasound localization used, non-tunneled, location (right, internal jugular vein, 1 attempts), anterior approach used, catheter type (7 Fr, 3 lumen catheter, 16 cm in length), location confirmed via flashback, total catheter length 16 cm, external catheter length 0 cm, dressing applied (catheter secured, semi-permeable transparent dressing applied), monitoring during procedure (blood pressure, cardiac, continuous pulse oximetry). Procedure tolerated: well, estimated blood loss 3 ml. Findings: location confirmed on chest x-ray, catheter tip located in the superior vena cava. Complications at the time of procedure: none. documented in this encounter Plan of Treatment Not on file documented as of this encounter Visit Diagnoses Not on filedocumented in this encounter
--- OUTSIDE RECORDS SUMMARY | 2025-02-21 13:42 | XMS_ITS | Encounter Summary ---
Author Organization [employer] Address [address] [place] [address] Care Team Providers Care Rn Ccu Name Role Phone Unavailable Primary Care Provider Unavailabl e Encounter Details Date Type Department Care Team (Late st Contact Info) Description 03/01/2022 Transcribed Document [facility] [place] [facility] [place] [address] ProviderFlorentino MD [address] [place] [address] Social History Tobacco Use Types Packs/Day Years Used Date Smoking Tobacco: Never Assessed Comments Unknown Sex and Gender Information Value Date Recorded Sex Assigned at Not on file Legal Sex Female 1:44 PM CDT Gender Identity Not on file Sexual Orientation Not on file documented as of this encounter Miscellaneous Notes * Cerner Conversion Note - Florentino Lynne MD - 03/01/2022 5:08 PM CDT Rapid Response Team Documentation Entered On: 03/01/2022 17:08 EDT Performed On: 03/01/2022 17:08 EDT by DAYDAY KING RN Rapid Response Event Rapid Response Team Initiation Reason Details : pt left 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 Pneumonia, unspecified organism Severe sepsis with septic shock Rapid Response Medical Background : History of obstructive sleep apnea (Medical) Rapid Response Allergies : Substance Category Reactions Severity No Known Allergies Drug Rapid Response Recent Vital Signs : 03/01/2022 17:00 Systolic Blood Pressure 157 03/01/2022 17:00 Diastolic Blood Pressure 86 03/01/2022 17:00 Heart Rate Monitored 97 03/01/2022 17:00 Respiratory Rate 16 03/01/2022 14:30 Temperature, Fahrenheit 97 03/01/2022 17:00 Oxygen Saturation 96 Rapid Response Recent Lab Results : 03/01/2022 13:36 Sodium Level 146 (136-146) 03/01/2022 13:36 Potassium Level 4.3 (3.5-5.1) 02/23/2022 09:00 Calcium Ionized LOW 0.98 (1.12-1.32) 03/01/2022 13:36 Calcium Level 8.8 (8.5-10.1) 03/01/2022 13:37 Magnesium Level 2.4 (1.5-2.4) 02/23/2022 03:13 eAVG Glucose NA 163 03/01/2022 11:01 Glucose POC2 HI 131 (70-110) 03/01/2022 13:36 Chloride Level HI 113 (102-112) 03/01/2022 13:36 Carbon Dioxide Level 23 (21-32) 03/01/2022 13:36 Blood Urea Nitrogen HI 61 (7-22) 03/01/2022 13:36 Creatinine Level HI 2.83 (0.55-1.02) 02/23/2022 03:13 Hgb A1C HI 7.30 (4.20-6.30) 03/01/2022 13:36 Hgb LOW 10.1 (11.2-15.7) 03/01/2022 13:36 Hct LOW 32.6 (34.1-44.9) 03/01/2022 13:36 RBC LOW 3.53 (3.93-5.22) 03/01/2022 13:36 WBC HI 24.6 (3.9-10.0) 03/01/2022 13:36 Platelet Count 296 (163-369) 03/01/2022 13:37 Lactic Acid Level 1.7 (0.4-2.0) 03/01/2022 14:15 pH Art LOW 7.29 (7.35-7.45) 03/01/2022 14:15 pCO2 Art 43.9 (35.0-45.0) 03/01/2022 14:15 pO2 Art 91.1 (80.0-100.0) 03/01/2022 14:15 HCO3 Art 20.4 (20.0-26.0) 03/01/2022 14:15 BE Art LOW -5.3 (-2.0-2.0) 03/01/2022 14:15 sO2 Art 96.1 (95.0-100.0) Weight/BMI : Clinical Weight/BMI CLINICALWEIGHT: 94.2 kg (02/22/22 18:34:00) CLINICALWEIGHT: 94.2 kg (02/22/22 05:59:00) CLINICALWEIGHT: 94.2 kg (02/22/22 00:58:00) CLINICALWEIGHT: 94.2 kg (02/22/22 00:20:00) Body Mass Index: 35.6 kg/m2 High (02/22/22 18:34:00) Body Mass Index: 35.6 kg/m2 High (02/22/22 05:59:00) Body Mass Index: 35.6 kg/m2 High (02/22/22 00:58:00) Body Mass Index: 35.6 kg/m2 High (02/22/22 00:20:00) DAYDAY KING RN - 03/01/2022 17:08 EDT documented in this encounter Plan of Treatment Not on file documented as of this encounter Visit Diagnoses Not on filedocumented in this encounter
--- OUTSIDE RECORDS SUMMARY | 2025-02-21 13:42 | XMS_ITS | Encounter Summary ---
Author Organization [employer] Address [address] [place] [address] Care Team Providers Care Sewage Screen Operator Name Role Phone Unavailable Primary Care Provider Unavailabl e Encounter Details Date Type Department Care Team (Late st Contact Info) Description 05/05/2022 Transcribed Document [facility] Radiology [address] [place] [address] Melinda Sherwood MD [address] [place] [address] [address] Social History Tobacco Use Types Packs/Day Years Used Date Smoking Tobacco: Never Assessed Comments Unknown Sex and Gender Information Value Date Recorded Sex Assigned at Not on file Legal Sex Female 1:44 PM CDT Gender Identity Not on file Sexual Orientation Not on file documented as of this encounter Miscellaneous Notes * Cerner Conversion Note - Melinda Sherwood MD - 05/05/2022 11:52 AM EDT Patient: ALYSSA AZUL Age: 62 [...] Oral, BID Afia-Q: 1 Cap, Oral, BID [place] 5 mg-325 mg oral tablet: 1 Tab, Oral, Q6H, PRN: Pain (Moderate 4-6) PRAVAstatin: 40 mg, Oral, At Bedtime Pepcid: 20 mg, Oral, At Bedtime Vitamin C: 500 mg, Oral, BID acetaminophen: 650 mg, Oral, Q6H, PRN: Pain (Mild 1-3) cefepime + Sodium Chloride 0.9% intravenous solution 50 mL: 1 Gram, 100 mL/Hr, IV Piggyback, [id number] cloNIDine: 0.1 mg, Oral, Q4H, PRN: Other (See Comment) ferrous sulfate: 325 mg, Oral, TID With Meals glucagon: 1 mg, IntraMuscular, Q15Min, PRN: Other (See Comment) glucose 4 g oral tablet, chewable: 16 Gram, 4 Tab, Chew, Q15Min, PRN: Other (See Comment) glucose 40% oral gel: 15 Gram, 37.5 mL, Oral, Q15Min, PRN: Other (See Comment) heparin: 5,000 Units, SubCutaneous, Q8HInt hydrALAZINE: 10 mg, IV Push, Q6H, PRN: Other (See Comment) insulin lispro sliding scale: Scale A:, SubCutaneous, AC and at Bedtime linezolid: 600 mg, Oral, Q12H micafungin: 100 mg, 100 mL/Hr, IV Piggyback, [id number] Documented Medications Documented Farxiga 10 mg oral [...] Tab, Oral, At Bedtime, 0 Refill(s), Medications (25) Active Scheduled: (14) ascorbic acid 500 mg tab 500 mg 1 Tab, Oral, BID cefEPIME + NaCl 0.9% 50 mL 1 Gram, IV Piggyback, [id number] famotidine 20 mg tab 20 mg 1 [...] Q12H micafungin sodium 100 mg, IV Piggyback, [id number] omega-3 fish oil 1,000 mg cap 2,000 mg 2 Cap, Oral, BID povidone iodine 10% liq 15 mL 1 Application, Topical, BID povidone iodine 10% liq 15 mL 1 Application, Topical, BID povidone iodine 10% liq 15 mL 1 Application, Topical, BID PRAVAstatin sodium 20 mg tab 40 mg 2 Tab, Oral, At Bedtime Continuous: (0) PRN: (11) acetaminophen 325 mg tab 650 mg 2 Tab, Oral, Q6H acetaminophen/HYDROcodone 325/5 mg tab 1 Tab, Oral, Q6H cloNIDine 0.1 mg tab 0.1 mg 1 Tab, Oral, Q4H dextrose 50% 25 g/50 mL inj syr [...] 10 mg 0.5 mL, IV Push, Q6H Problem list: Medical Diabetes / SNOMED CT [id number] / Confirmed History of obstructive sleep apnea / IMO [id number] / Confirmed, Active Problems (6) Chronic kidney disease (CKD), stage III (moderate) Diabetes History of obstructive sleep apnea Hyperlipidemia Hypertension Paraplegia Objective VS/Measurements Vitals Signs (last 24 hrs) Last Charted Minimum Maximum Temp 97.9 (MAY 05 01:00) 97.9 (MAY 05:) 98.2 (MAY 04 17:25) Apical HR H 108 (MAY 04 17:29) H 108 (MAY 04 17:29) H 108 (MAY 04 17:29) Mon HR 77 (MAY 05:00) 58 (MAY 04 11:24) 98 (MAY 04 21:12) Resp Rate 18 (MAY 04 21:12) 18 (MAY 04 21:12) 18 (MAY 04 21:12) SBP 119 (MAY 05 01:00) 119 (MAY 05 01:00) H 165 (MAY 04 17:25) DBP 65 (MAY 05 01:00) 65 (MAY 05 01:00) 90 (MAY 04 17:25) MAP 82 (MAY 05 01:00) 82 (MAY 05 01:00) 136 (MAY 04 17:25) SpO2 L 92 (MAY 04 21:12) L 88 (MAY 04 11:24) L 92 (MAY 04 21:12) General: Alert and oriented, No acute distress. [...] mood & affect. Review / Management MAY 05 05:04 136 105 H 37 / H 185 4.9 26 H 1.40 \ MAY 05 05:04 \ L 8.7 / 6.4 344 / L 27.5 \ No Radiology Results Found Results review: Labs (Last four charted values) WBC 6.4 (MAY 05) 5.1 (MAY 04) L 4.4 (MAY 03) L 4.3 (MAY 02) HB L 8.7 (MAY 05) L 8.5 (MAY 04) L 8.8 (MAY 03) L 8.2 (MAY 02) HCT L 27.5 (MAY 05) L 26.7 (MAY 04) L 27.0 (MAY 03) L 26.4 (MAY 02) Plt 344 (MAY 05) 355 (MAY 04) H 387 (MAY 03) 317 (MAY 02) Na 136 (MAY 05) 138 (MAY 04) 140 (MAY 03) 136 (MAY 02) K 4.9 (MAY 05) 4.5 (MAY 04) 4.4 (MAY 03) 4.8 (MAY 02) Cl 105 (SEP 05) 107 (MAY 04) 108 (MAY 03) H 117 (MAY 02) CO2 26 (MAY 05) 27 (MAY 04) 27 (MAY 03) L 16 (MAY 02) BUN H 37 (MAY 05) H 35 (MAY 04) H 31 (MAY 03) H 28 (MAY 02) Cr H 1.40 (MAY 05) H 1.20 (MAY 04) H 1.20 (MAY 03) H 1.10 (MAY 02) Glu R H 185 (MAY 05) H 178 (MAY 04) H 198 (MAY 03) H 139 (MAY 02) Ca 9.6 (MAY 05) 9.5 (MAY 04) 9.3 (MAY 03) 8.8 (MAY 02) Lactic 0.7 (APR 29) C 5.2 (APR 28) PT 9.9 (APR 28) INR 0.9 (APR 28) AST 18 (APR 28) ALT 26 (APR 28) ALK P 73 (APR 28) T Bili 0.8 (APR 28) PTN 7.7 (APR 28) ALB L 2.7 (APR 28) . Medication Changes from Previous Midnight to Current New Medications: No Qualifying New Meds Discontinued Medications: No Qualifying Discontinued Meds Impression and Plan Sepsis presented on admission. Hypotension and lactic acidosis. Likely due to recurrent urinary tract infection. Follow-up cultures Continue broad-spectrum IV antibiotics. ID consulted. Resolving Recurrent urinary tract infection. Recently admitted with septic shock due to Pseudomonas and E. coli UTI Appreciate ID recommendations. Started on iv cefepime, Zyvox and IV micafungin IV micafungin discontinued Tunneled none hemodialysis catheter. Discussed with nephrology. Patient agreeable. To be done by interventional radiology to be done in a.m. Thursday05/06/2022. NPO AMN Acute on chronic kidney failure. Metabolic acidosis Gentle hydration. Recently started on CRRT/dialysis Avoid nephrotoxic medications. Metabolic acidosis resolved S/p 1 L sodium bicarbonate drip subsequently discontinued. Large decubitus ulcer presented on admission. Continue broad-spectrum IV antibiotics. Daily dressing. Continue Mr. Wound care consult. Diabetes mellitus Initiate basal bolus insulin protocol. Worsening anemia. Likely anemia of chronic disease iron studies noted Paraplegia. Chronic pain Physical therapy evaluation. Obstructive sleep apnea. CPAP nightly. GI and DVT prophylaxis. Physical therapy evaluation. Disposition. Recurrent urinary tract infection with possible sepsis. Continue broad-spectrum IV antibiotics as per ID recommendations. Likely discharge home with home health and home IV antibiotics. Plan for IV access / [place] in a.m. bear interventional radiology. Likely discharge home with home health in a.m. documented in this encounter Plan of Treatment Not on file documented as of this encounter Visit Diagnoses Not on filedocumented in this encounter
--- OUTSIDE RECORDS SUMMARY | 2025-02-21 13:42 | XMS_ITS | Encounter Summary ---
Author Organization [facility] [facility] Address [address] [place] [address] Care Team Providers Care Network Communications Engineer Name Role Phone Unavailable Primary Care Provider Unavailabl e Encounter Details Date Type Department Care Team (Late st Contact Info) Description 02/22/2022 Transcribed Document [facility] [place] [address] [place] [address] ProviderFlorentino MD [address] [place] [address] Social History Tobacco Use Types Packs/Day Years Used Date Smoking Tobacco: Never Assessed Comments Unknown Sex and Gender Information Value Date Recorded Sex Assigned at Not on file Legal Sex Female 1:44 PM CDT Gender Identity Not on file Sexual Orientation Not on file documented as of this encounter Miscellaneous Notes * Cerner Conversion Note - Florentino ProviderMD - 02/22/2022 1:21 PM CDT UM Authorization Entered On: 02/22/2022 13:22 EDT Performed On: 02/22/2022 13:21 EDT by Jelani Anne welfare service aide Primary Insurance Authorization Authorization and Policy Numbers : Insurance 1 Health Plan: [facility] Policy Number: [id number] Authorization Number: Insurance Primary Name : [facility] Policy Number: [id number] Authorization Status-Primary : Awaiting callback Authorized Service Begin Date-Primary : 02/21/2022 EDT Authorization Comments-Primary : Uploaded clinicals via [employer] and Faxed to [facility]/ Reference # pending/ Awaiting callback. Historical Authorization Comments-Primary : No Authorization Comments Found Jelani Anne welfare service aide - 02/22/2022 13:21 EDT documented in this encounter Plan of Treatment Not on file documented as of this encounter Visit Diagnoses Not on filedocumented in this encounter
--- OUTSIDE RECORDS SUMMARY | 2025-02-21 13:42 | XMS_ITS | Encounter Summary ---
Author Organization [employer] Address [address] [place] [address] Care Team Providers Care Water Safety Teacher Name Role Phone Unavailable Primary Care Provider Unavailabl e Encounter Details Date Type Department Care Team (Late st Contact Info) Description 03/01/2022 Transcribed Document [facility] [place] [facility] [address] ProviderFlorentino MD [address] [place] [address] Social History Tobacco Use Types Packs/Day Years Used Date Smoking Tobacco: Never Assessed Comments Unknown Sex and Gender Information Value Date Recorded Sex Assigned at Not on file Legal Sex Female 1:44 PM CDT Gender Identity Not on file Sexual Orientation Not on file documented as of this encounter Miscellaneous Notes * Cerner Conversion Note - Florentino Lynne MD - 03/01/2022 7:57 PM CDT [facility] Inpatient Documentation Entered On: 03/04/2022 14:35 EDT Performed On: 03/04/2022 14:15 EDT by Zoë Salse Rn WO Admission Date : Admit Date 03/01/2022 17:[address] : No diagnoses found. Reason for WOCN Visit : Initial consult Admitting Diagnosis ST : Reason for Admission ACUTE RESP FAILURE WOCN Assessment Summary : WO consult for management of NPWT. Pt was transferred [place] [facility] with a veraflow vac to the left hip. The dressing was taken down and 2 pcs of hale foam was removed. The wound has some black necrosis but it is cleaning up very well with the instillation vac. The hospital was out of the cleanse choice dressing so the dressing was replaced with the black foam instillation kit that is a spiral cut of one solid piece of foam. the foam was premoistened with NS and instillation was readjusted at 10 mls. and -125 mmHg. Wound care will ollow up on Thursday. Zoë Sales Rn - 03/04/2022 14:29 EDT Skin Breakdown Prevention Interventions Patient Repositioned : Yes Patient Position : Elevated left hip, Elevated Head of Bed Specialty Bed Type : Air-fluidized bed Zoë Sales Rn - 03/04/2022 14:29 EDT Teaching/Learning Assessment Barriers To Learning : Acuity of Illness Learning Style Preferences Patient : Other: MARIO Learning Style Preferences Family : Demonstration, Printed materials, Verbal explanation Zoë Sales Rn - 03/04/2022 14:29 EDT Education Topics, Wound Care Wound Education Needs Comment : Pt on vent Zoë Sales Rn - 03/04/2022 14:29 EDT documented in this encounter Plan of Treatment Not on file documented as of this encounter Visit Diagnoses Not on filedocumented in this encounter
--- OUTSIDE RECORDS SUMMARY | 2025-02-21 13:42 | XMS_ITS | Encounter Summary ---
Author Organization [facility] [facility] Address [address] [place] [address] Care Team Providers Care Gastroenterology Technician Name Role Phone Unavailable Primary Care Provider Unavailabl e Encounter Details Date Type Department Care Team (Late st Contact Info) Description 02/22/2022 Transcribed Document [facility] [place] [address] [place] [address] ProviderFlorentino MD [address] [place] [address] Social History Tobacco Use Types Packs/Day Years Used Date Smoking Tobacco: Never Assessed Comments Unknown Sex and Gender Information Value Date Recorded Sex Assigned at Not on file Legal Sex Female 1:44 PM CDT Gender Identity Not on file Sexual Orientation Not on file documented as of this encounter Miscellaneous Notes * Cerner Conversion Note - Historical ProviderMD - 02/22/2022 1:02 PM CDT Attempt to Treat, OT Entered On: 02/22/2022 13:06 EDT Performed On: 02/22/2022 13:02 EDT by ASIA ROCA OTR/L Attempt to Treat Unable to Treat Due To : Patient on hold Inability to Treat Comment : [facility] nursing, reports that client has been struggling with breathing all morning, Has just been given Xanax to promote relaxation, will be appropriate for full eval at later date. Will follow-up as schedule permits. ASIA ROCA OTR/L - 02/22/2022 13:02 EDT documented in this encounter Plan of Treatment Not on file documented as of this encounter Visit Diagnoses Not on filedocumented in this encounter
--- OUTSIDE RECORDS SUMMARY | 2025-02-21 13:42 | XMS_ITS | Encounter Summary ---
Author Organization [employer] Address [address] [place] [address] Care Team Providers Care Pedodontist Name Role Phone Unavailable Primary Care Provider Unavailabl e Encounter Details Date Type Department Care Team (Late st Contact Info) Description 04/22/2022 Transcribed Document [facility] [place] [address] [place] [address] ProviderFlorentino MD [address] [place] [address] Social History Tobacco Use Types Packs/Day Years Used Date Smoking Tobacco: Never Assessed Comments Unknown Sex and Gender Information Value Date Recorded Sex Assigned at Not on file Legal Sex Female 1:44 PM CDT Gender Identity Not on file Sexual Orientation Not on file documented as of this encounter Miscellaneous Notes * Cerner Conversion Note - Florentino ProviderMD - 04/22/2022 5:00 AM CDT Chart Check - Review Order Profile Entered On: 04/22/2022 6:17 EDT Performed On: 04/22/2022 5:00 EDT by Dulce Dallas RN Chart Check Powerplans Initiated/Discontinued as Appropriate : Yes All Active Orders Reviewed : Yes Dulce Dallas RN - 04/22/2022 6:17 EDT documented in this encounter Plan of Treatment Not on file documented as of this encounter Visit Diagnoses Not on filedocumented in this encounter
--- OUTSIDE RECORDS SUMMARY | 2025-02-21 13:42 | XMS_ITS | Encounter Summary ---
Author Organization [employer] Address [address] [place] [address] Care Team Providers Care Stock Raiser Name Role Phone Unavailable Primary Care Provider Unavailabl e Encounter Details Date Type Department Care Team (Late st Contact Info) Description 03/01/2022 Transcribed Document [facility] Pulm & Critical Care Medicine [address] [facility] [address] [place] [address] Rodrick Durbin MD [address] [facility] [address] [place], [place] [id number] Social History Tobacco Use Types Packs/Day Years Used Date Smoking Tobacco: Never Assessed Comments Unknown Sex and Gender Information Value Date Recorded Sex Assigned at Not on file Legal Sex Female 1:44 PM CDT Gender Identity Not on file Sexual Orientation Not on file documented as of this encounter Miscellaneous Notes * Cerner Conversion Note - Rodrick Durbin MD - 03/01/2022 8:59 PM EDT Patient: IRMA AZUL Age: 61 years Sex: Female : 1960 Associated Diagnoses: None Author: ARTEM BURGER PA Basic Information Pulmonary/CCM Consultation Note Date of Admission: 03/01/22 Date of Consultation: 03/01/22 Referring Provider: Elaine Ramires MD ([facility]) Reason for Consultation: Ventilator/CCM CC: Unobtainable History of Present Illness: This is a 61-year-old female with underlying medical history including paraplegia, CKD, stage III, T2DM, and HTN. At time of evaluation, patient is intubated, sedated, and on ventilator support and both son and [id number] are present at bedside to give some medical background; therefore, history and hospital course is primarily retrieved from them and through medical chart review. In summary, patient was admitted to [facility] on 02/17/22 with symptoms including [...] 1 Vent Day: 6 (02/21-; 03/01-presently intubated) Review of Systems Unable to obtain: Due to clinical condition. Health Status Allergies: Allergic Reactions (All) No Known Allergies, Allergies (1) Active Reaction No Known Allergies None Documented Current medications: (Selected) Inpatient Medications Ordered Ativan: 0.5 mg, IV Push, Q4H, PRN: Agitation Chloraseptic Menthol 1.4% topical spray: 1 [place], Oral, Q2H, PRN: Sore Throat Dextrose 50% injection: 12.5 Gram, IV Push, Q15Min, PRN: Other (See Comment) Dextrose 50% injection: 25 Gram, IV Push, Q15Min, PRN: Other (See Comment) Lasix: 40 mg, IV Push, Q12H Pepcid: 20 mg, IV Push, At Bedtime Zofran: 4 mg, IV Push, Q6H, PRN: Nausea Zosyn + Sodium Chloride 0.9% intravenous solution 100 mL: 4.5 Gram, 200 mL/Hr, IV Piggyback, 1-Time Zosyn + Sodium Chloride 0.9% intravenous solution 50 mL: 2.25 Gram, 16.67 mL/Hr, IV Piggyback, Q8H Zosyn + Sodium Chloride 0.9% intravenous solution 50 mL: 2.25 Gram, 16.67 mL/Hr, IV Piggyback, Q8HInt acetaminophen: 650 mg, Oral, Q6H, PRN: Pain (Mild 1-3) albuterol 2.5 mg/3 mL (0.083%) inhalation solution: 3 mL, Nebulized Inhalation, RT_Q4H, PRN: Shortness of Breath albuterol-ipratropium 2.5 mg-0.5 mg/3 mL inhalation solution: 3 mL, Nebulized Inhalation, RT_Q4H bisoprolol: 5 mg, Oral, Daily bumetanide: 1 mg, IV Push, [id number] calcium gluconate: 1 Gram, 50 mL, 50 mL/Hr, IV Piggyback, Daily, PRN: Other (See Comment) calcium gluconate: 2 Gram, 100 mL, 100 mL/Hr, IV Piggyback, Daily, PRN: Other (See Comment) calcium gluconate: 2 Gram, 100 mL, 100 mL/Hr, IV Piggyback, Q12H, PRN: Other (See Comment) dexmedeTOMIDine injection 400 mcg + NaCl 0.9% for drip 100 mL: TITRATE, IntraVENous doxycycline + Sodium Chloride 0.9% intravenous solution 100 mL: 100 mg, 50 mL/Hr, IV Piggyback, Q12H fentaNYL injection 2,000 mcg + NaCl 0.9% Premix Diluent 100 mL: TITRATE, IntraVENous fentaNYL injection 2,000 mcg + NaCl 0.9% [...] 10 mg, IV Push, Q6H, PRN: Hypertension hydrALAZINE: 10 mg, IV Push, Q6H, PRN: Hypertension insulin glargine: 14 Units, SubCutaneous, BID insulin lispro 76 kg - 100 k kg - 100 kg scale, SubCutaneous, AC and at Bedtime insulin regular sliding scale: Scale A, SubCutaneous, Q6H magnesium sulfate: 2 Gram, 50 mL, 25 mL/Hr, IV Piggyback, Daily, PRN: Other (See Comment) magnesium sulfate: 2 Gram, 50 mL, 25 mL/Hr, IV Piggyback, Q2H, PRN: Other (See Comment) morphine: 2 mg, IV Push, Q2H, PRN: Pain (Severe 7-10) ondansetron: 4 mg, IV Push, Q6H, PRN: [...] IV Piggyback, Q1H, PRN: Other (See Comment) propofol 1,000 mg + Premix Diluent 100 mL: titrate, IntraVENous propofol injection 1,000 mg + Premix Diluent for Drip 100 mL: TITRATE, IntraVENous sodium phosphate: 15 mMole, 5 mL, 50 mL/Hr, IV Piggyback, Daily, PRN: Other (See Comment) sodium phosphate: 15 mMole, 5 mL, 50 mL/Hr, IV Piggyback, Q6H, PRN: Other (See Comment) traMADol: 50 mg, Oral, Q6H, PRN: Pain (Moderate 4-6) Documented Medications Documented bisoprolol 5 mg oral tablet: 1 Tab, Oral, Daily, 0 Refill(s) bumetanide 0.25 mg/mL injectable solution: 4 mL, IV Push, [id number], 0 Refill(s) furosemide 40 mg oral tablet: 1 Tab, Oral, Daily, 0 Refill(s) insulin lispro: Scale A:, SubCutaneous, AC and at Bedtime, 0 Refill(s) pantoprazole 40 mg intravenous injection: 40 mg, IV Push, Daily, 0 Refill(s), Medications (10) Active Scheduled: (5) famotidine 20 mg/2 mL inj 20 mg 2 mL, IV Push, At Bedtime heparin 5,000 units/1 mL inj 5,000 Units 1 mL, SubCutaneous, Q8H insulin lispro 1 unit/0.01 mL inj 76 kg - 100 kg scale, SubCutaneous, AC and at Bedtime piperacillin-tazobactam + NaCl 0.9% 100 mL 4.5 Gram, IV Piggyback, 1-Time piperacillin-tazobactam + NaCl 0.9% 50 mL 2.25 Gram, IV Piggyback, Q8HInt Continuous: (2) fentaNYL/NaCl 0.9% 2,000 mcg + Premix Diluent NaCl 0.9% TITRATE 100 mL 100 mL, IntraVENous propofol 1,000 mg + Premix Diluent Titrate 100 mL 100 mL, IntraVENous PRN: (3) hydrALAZINE 20 mg/1 mL inj 10 mg 0.5 mL, IV Push, Q6H morphine 2 mg/1 ml inj 2 mg 1 mL, IV Push, Q2H ondansetron 4 mg/2 mL inj 4 mg 2 mL, IV Push, Q6H Problem list: All Problems History of obstructive sleep apnea / IMO [id number] / Confirmed, Active Problems (1) History of obstructive sleep apnea Physical Examination VS/Measurements Vitals Signs (last 24 hrs) Last Charted Minimum Maximum Temp 98.2 (MAR 01 18:00) 98.2 (MAR 01 18:00) 98.2 (MAR 01 18:00) Mon HR 82 (MAR 01 19:00) 82 (MAR 01 19:00) 96 (MAR 01 17:50) Resp Rate 16 (MAR 01 19:00) 16 (MAR 01 17:50) 16 (MAR 01 17:50) SBP 109 (MAR 01 19:00) 109 (MAR 01 19:00) 118 (MAR 01 18:15) DBP 65 (MAR 01 19:00) 63 (MAR 01 18:45) 69 (MAR 01 18:15) MAP 81 (MAR 01 19:00) 81 (MAR 01 18:45) 89 (MAR 01 18:15) SpO2 96 (MAR 01 19:00) L 91 (MAR 01 18:00) 96 (MAR 01 18:30) General: Arousable, alert, following commands. RASS -1/-2.. [...] to assess.. Review / Management Results review: No qualifying data available. Radiology Results (Last 48 hours) [id number] -- 02/22/2022 00:01 CT Abdomen Pelvis WO [...] Baseline paraplegia Baseline mentation not observed Renal Eluoc-ur-PQF -- improving Electrolyte abnormalities Hyperchloremia Endocrine T2DM Glycemic control Hematology/Oncology Leukocytosis Plan: -Vent bundle. Wean FiO2, for goal saturation >89%. -Sedation: On Propofol/Fentanyl. Titrate to RASS goal -2. -Ventilator settings: 16/400/5/75%. ABG reviewed, no changes. -SBTs/SATs, when able. -Daily ABG while on [...] status. -Trend SCr/BUN. -Avoid nephrotoxic agents. -Consider SALES ACCOUNT DIRECTOR consult for Swallow evaluation, once extubated. -Glycemic control: per primary. -Nutrition: NPO except for meds. -GI prophylaxis: Pepcid. -VTE prophylaxis: Heparin SQ CXR AM labs ordered. CODE STATUS: Full Code Disposition: ICU Pulmonary/CCM attending to see. documented in this encounter Plan of Treatment Not on file documented as of this encounter Visit Diagnoses Not on filedocumented in this encounter
--- OUTSIDE RECORDS SUMMARY | 2025-02-21 13:42 | XMS_ITS | Encounter Summary ---
Author Organization [employer] Address [address] [place] [address] Care Team Providers Care Fork Truck Operator Name Role Phone Unavailable Primary Care Provider Unavailabl e Encounter Details Date Type Department Care Team (Late st Contact Info) Description 03/01/2022 Transcribed Document [facility] Medicine [address] [place] [address] ProviderFlorentino MD [address] [place] [address] Social History Tobacco Use Types Packs/Day Years Used Date Smoking Tobacco: Never Assessed Comments Unknown Sex and Gender Information Value Date Recorded Sex Assigned at Not on file Legal Sex Female 1:44 PM CDT Gender Identity Not on file Sexual Orientation Not on file documented as of this encounter Miscellaneous Notes * Cerner Conversion Note - Florentino Lynne MD - 03/01/2022 4:00 PM CDT Rapid Response Team Documentation Entered On: 03/01/2022 16:01 EDT Performed On: 03/01/2022 16:00 EDT by DAYDAY KING RN Rapid Response Event Rapid Response Event Intiated By : Hospital Staff Rapid Response Event Location Type : Emergency department Rapid Response Team Initiation Reason Details : ngt placed per phone order from melany mann. placed with ease. gastric contents aspirated. xray for confirmation via protocols. 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 Pneumonia, unspecified organism Severe sepsis with septic shock Rapid Response Medical Background : History of obstructive sleep apnea (Medical) Rapid Response Allergies : Substance Category Reactions Severity No Known Allergies Drug Rapid Response Recent Vital Signs : 03/01/2022 15:45 Systolic Blood Pressure 175 03/01/2022 15:45 Diastolic Blood Pressure 99 03/01/2022 15:45 Heart Rate Monitored 91 03/01/2022 15:45 Respiratory Rate 16 03/01/2022 14:30 Temperature, Fahrenheit 97 03/01/2022 15:45 Oxygen Saturation 99 Rapid Response Recent Lab Results : 03/01/2022 [...] (02/22/22 00:20:00) DAYDAY KING RN - 03/01/2022 16:00 EDT documented in this encounter Plan of Treatment Not on file documented as of this encounter Visit Diagnoses Not on filedocumented in this encounter
--- OUTSIDE RECORDS SUMMARY | 2025-02-21 13:42 | XMS_ITS | Encounter Summary ---
Author Organization [employer] Address [address] [place] [address] Care Team Providers Care Underwriting Internship Name Role Phone Unavailable Primary Care Provider Unavailabl e Encounter Details Date Type Department Care Team (Late st Contact Info) Description 03/01/2022 Transcribed Document [facility] [address] [place] [address] ProviderFlorentino MD [address] [place] [address] Social History Tobacco Use Types Packs/Day Years Used Date Smoking Tobacco: Never Assessed Comments Unknown Sex and Gender Information Value Date Recorded Sex Assigned at Not on file Legal Sex Female 1:44 PM CDT Gender Identity Not on file Sexual Orientation Not on file documented as of this encounter Miscellaneous Notes * Cerner Conversion Note - Historical ProviderMD - 03/01/2022 6:51 PM CDT Education-(VTE) / (DVT) Entered On: 03/01/2022 18:57 EDT Performed On: 03/01/2022 18:51 EDT by Colette Dowling RN-PATIENT CARE BEDSIDE NON-EXEMPT Teaching/Learning Assessment Barriers To Learning : Acuity of Illness Education Comment : pt intubated and on propofol Colette Dowling RN-PATIENT CARE BEDSIDE NON-EXEMPT - 03/01/2022 18:57 EDT documented in this encounter Plan of Treatment Not on file documented as of this encounter Visit Diagnoses Not on filedocumented in this encounter
--- OUTSIDE RECORDS SUMMARY | 2025-02-21 13:42 | XMS_ITS | Encounter Summary ---
Author Organization [employer] Address [address] [place] [address] Care Team Providers Care Die Try Out Worker Name Role Phone Unavailable Primary Care Provider Unavailabl e Encounter Details Date Type Department Care Team (Late st Contact Info) Description 05/06/2022 Transcribed Document [facility] [place] Medicine [address] [place] [address] ProviderFlorentino MD [address] [place] [address] Social History Tobacco Use Types Packs/Day Years Used Date Smoking Tobacco: Never Assessed Comments Unknown Sex and Gender Information Value Date Recorded Sex Assigned at Not on file Legal Sex Female 1:44 PM CDT Gender Identity Not on file Sexual Orientation Not on file documented as of this encounter Miscellaneous Notes * Cerner Conversion Note - Florentino Lynne MD - 05/06/2022 8:40 AM CDT Patient: ALYSSA AZUL Age: 62 Years Sex: Female : 1960 Subjective Date of service May 06, 2022 The patient reports no acute events overnight. She is tolerating her IV antibiotic with no adverse events. Nursing staff report that the patient remains afebrile with stable vital signs and saturating appropriately on room air. Her morning labs identify a CBC with a normal white blood cell count and stable hemoglobin. Her electrolytes are stable. Wound care continues to evaluate the patient. Review of systems Constitutional: No fever, no chills Respiratory: No acute dyspnea, no cough Cardiovascular: No chest pain, no palpitation, no increasing pedal edema GI: No nausea, vomiting or diarrhea Neuro: No confusion, no acute motor or sensory changes Vital Signs T: 36.7 ??C TMIN: 36.7 ??C TMAX: 37.1 ??C HR: 85(Monitored) RR: 16 BP: 104/60 SpO2: 95% Oxygen Settings (Last) Oxygen Therapy Mode: Room air (05/06/22 08:36:00) Intake & Output Totals Last 24 Hours (7a-7a) Input Total: 310 mL Output Total: 2150 mL Balance: -1840 mL Physical Exam General: Alert and oriented, [...] therapy evaluations The patient is hospitalized day 7 with above diagnoses. We appreciate infectious disease consult and recommendations. Case management is assisting with next site of care which is expected to be home with home health. Barriers to discharge currently include completion of IV antibiotic therapy. Expected date of discharge 05/08/2022. VTE Prophylaxis - Medical Heparin 5,000 Units, [...] Scale A:, SubCutaneous, AC and at Bedtime linezolid, 600 mg= 1 Tab, Oral, Q12H micafungin [place] 5 mg-325 mg oral tablet, 1 Tab, Oral, Q6H, PRN Pepcid, 20 mg= 1 Tab, Oral, At Bedtime PRAVAstatin, 40 mg= 2 Tab, Oral, At Bedtime Vitamin C, 500 mg= 1 Tab, Oral, BID Lab Results Test Name Test Result Date/Time Sodium Level 135 mmol/L (Low) 05/06/2022 05:48 EDT Potassium Level 4.8 mmol/L 05/06/2022 05:48 EDT Chloride Level 105 mmol/L 05/06/2022 05:48 EDT Carbon Dioxide Level 25 mmol/L 05/06/2022 05:48 EDT Anion Gap 10 05/06/2022 05:48 EDT Glucose Level 189 mg/dL (High) 05/06/2022 05:48 EDT Blood Urea Nitrogen 35 mg/dL (High) 05/06/2022 05:48 EDT Creatinine Level 1.20 mg/dL (High) 05/06/2022 05:48 EDT eGFR 55 mL/min/1.73m2 (Low) 05/06/2022 05:48 EDT eGFR NonAfrican 46 mL/min/1.73m2 (Low) 05/06/2022 05:48 EDT Bun/Creatinine 29.2 (High) 05/06/2022 05:48 EDT Calcium Level 9.5 mg/dL 05/06/2022 05:48 EDT Magnesium Level 2.0 mg/dL 05/06/2022 05:48 EDT Device Comment 1 Notified Nurse RBV 05/06/2022 05:26 EDT Device Comment 1 Notified Nurse RBV 05/05/2022 20:13 EDT Device Comment 1 Notified Nurse RBV 05/05/2022 16:39 EDT Device Comment 1 Notified Nurse RBV 05/05/2022 12:12 EDT Glucose POC2 185 mg/dL (High) 05/06/2022 05:26 EDT Glucose POC2 241 mg/dL (High) 05/05/2022 20:13 EDT Glucose POC2 161 mg/dL (High) 05/05/2022 16:39 EDT Glucose POC2 194 mg/dL (High) 05/05/2022 12:12 EDT CRP 0.62 mg/dL (High) 05/06/2022 05:48 EDT WBC 7.5 K/uL 05/06/2022 05:48 EDT RBC 3.19 Million/uL (Low) 05/06/2022 05:48 EDT Hgb 9.3 g/dL (Low) 05/06/2022 05:48 EDT Hct 29.0 % (Low) 05/06/2022 05:48 EDT MCV 90.9 fL 05/06/2022 05:48 EDT MCH 29.2 pg 05/06/2022 05:48 EDT MCHC 32.1 Gram/dL (Low) 05/06/2022 05:48 EDT Platelet Count 331 K/uL 05/06/2022 05:48 EDT MPV 9.9 fL 05/06/2022 05:48 EDT RDW 15.3 % (High) 05/06/2022 05:48 EDT Neutrophil Percent Man 54 % 05/06/2022 05:48 EDT Band Percent Man 7 % 05/06/2022 05:48 EDT ANC # 5 K/uL 05/06/2022 05:48 EDT Lymph Percent Man 27 % 05/06/2022 05:48 EDT ALYC # 2 K/uL 05/06/2022 05:48 EDT [place] Percent Man 4 % 05/06/2022 05:48 EDT Eos Percent Man 5 % (High) 05/06/2022 05:48 EDT Baso Percent Man 2 % (High) 05/06/2022 05:48 EDT Myelo Percent Man 1 % 05/06/2022 05:48 EDT NRBC 1 (High) 05/06/2022 05:48 EDT nRBC 0.020 (High) 05/06/2022 05:48 EDT RBC Morphology Abnormal 05/06/2022 05:48 EDT Anisocytosis 1+ (Abnormal) 05/06/2022 05:48 EDT Polychromasia 1+ (Abnormal) 05/06/2022 05:[address] Estimate Adequate 05/06/2022 05:48 EDT Slide Review Add Diff 05/06/2022 05:48 EDT documented in this encounter Plan of Treatment Not on file documented as of this encounter Visit Diagnoses Not on filedocumented in this encounter
--- OUTSIDE RECORDS SUMMARY | 2025-02-21 13:42 | XMS_ITS | Encounter Summary ---
Author Organization [employer] Address [address] [place] [address] Care Team Providers Care Professor Of Archaeology Name Role Phone Unavailable Primary Care Provider Unavailabl e Encounter Details Date Type Department Care Team (Late st Contact Info) Description 05/04/2022 Transcribed Document [facility] [place] [facility] [place] [address] ProviderFlorentino MD [facility] [place] [address] Social History Tobacco Use Types Packs/Day Years Used Date Smoking Tobacco: Never Assessed Comments Unknown Sex and Gender Information Value Date Recorded Sex Assigned at Not on file Legal Sex Female 1:44 PM CDT Gender Identity Not on file Sexual Orientation Not on file documented as of this encounter Miscellaneous Notes * Cerner Conversion Note - Historical ProviderMD - 05/04/2022 12:01 PM CDT Treatment Intervention, OT Entered On: 05/12/2022 15:34 EDT Performed On: 05/12/2022 14:23 EDT by KAYCEE MONTEIRO, OTR/L General Information, OT Visit Type, OT : Treatment Note Patient Orders : Order Date Order Ordering 05/02/2022 15:35 Occupational Therapy Evaluation and Treatme Ordered By: MICHELLE LORA MD-INT 05/04/2022 12:01 OT Additional Tx Ordered By: Active Diagnoses : 05/09/2022 12:00 Sepsis, unspecified [...] medical condition Admission Date : 2022 00:16 Personal Devices : Personal Devices Glasses Assistive Devices : Assistive Devices No Devices Recorded KAYCEE MONTEIRO OTR/[place] - 05/12/2022 15:18 EDT General Status Patient Received Status : Supine in bed Treatment Start Time : 05/12/2022 14:15 EDT Patient Left Status : Supine in bed, RN/PCT informed, All needs met and within reach RN/PCT Informed Comment : PRIMO mcbride'ed treatment. Treatment End Time : 05/12/2022 14:23 EDT Treatment Time : 8 Minute(s) KAYCEE MONTEIRO OTR/[place] - 05/12/2022 15:18 EDT Plan of Care, OT OT Tx Plan/Goals Established w Patient : Yes KAYCEE MONTEIRO OTR/[place] - 05/12/2022 15:18 EDT Kid Club Attendant Goals, OT Grooming LTG Grid Goal #1 Activity : Grooming Assist : Independent, modified Date to Meet : 05/18/2022 EDT Goal Status : Initial goal Comment : Unsupported EOB KAYCEE MONTEIRO OTR/[place] - 05/12/2022 15:18 EDT Toilet Transfer LTG Grid Goal #1 Activity : Toilet Transfer, Sliding Board Date to Meet : 05/18/2022 EDT Goal Status : Progressing, continue Comment : *05/09 Pt transferring by backing into w/c pulled directly up to bed. KAYCEE MONTEIRO OTR/[place] - 05/12/2022 15:18 EDT Bed Mobility/ Bed Transfer LTG Grid Goal #1 Activity : Bed Mobility, Supine to Sit Assist : Independent, modified Date to Meet : 05/18/2022 EDT Goal Status : Progressing, continue KAYCEE MONTEIRO OTR/[place] - 05/12/2022 15:18 EDT Wheelchair Transfer LTG Grid Goal #1 Activity : Wheelchair, Standard, Sliding Board Assist : Independent, modified Date to Meet : 05/18/2022 EDT Goal Status : Initial goal Comment : *05/09 Pt transferring by backing into w/c pulled directly up to bed. KAYCEE MONTEIRO OTR/[place] - 05/12/2022 15:18 EDT Treatment Note Subjective Comment : Pt agreeable. Patient's Response to Treatment : Pt tolerated well. Additional Objective Information : Pt supine in bed and states she is leaving this date. Pt discussed care and discarge. Pt stating she is going to rehab and upon discussion, pt given manager garden and educated on use. Pt verbalized understanding. Assessment : Pt will benefit from continued skilled OT services. Plan for Treatment : See LTG KAYCEE MONTEIRO OTR/[place] - 05/12/2022 15:18 EDT Pain Assessment Pain Scaled Used : 0-10 Pain scale Pain Score Pre-Intervention : 0 KAYCEE MONTEIRO OTR/L - 05/12/2022 15:18 EDT Image 1 - Images currently included in the form version of this document have not been included in the text rendition version of the form. Anticipated Discharge Needs, OT/PT Anticipated Discharge to : Unit, rehabilitation KAYCEE MONTEIRO OTR/[place] - 05/12/2022 15:[address] [facility] OT Charges OT Selfcare/Hm Mgmt Ea 15 Min : 1 KAYCEE MONTEIRO OTR/[place] - 05/12/2022 15:18 EDT documented in this encounter Plan of Treatment Not on file documented as of this encounter Visit Diagnoses Not on filedocumented in this encounter
--- OUTSIDE RECORDS SUMMARY | 2025-02-21 13:42 | XMS_ITS | Encounter Summary ---
Author Organization [employer] Address [address] [place] [address] Care Team Providers Care Diversified Crops Farmworker Name Role Phone Unavailable Primary Care Provider Unavailabl e Encounter Details Date Type Department Care Team (Late st Contact Info) Description 03/01/2022 Transcribed Document [facility] [place] [address] [place] [address] ProviderFlorentino MD [address] [place] [address] Social History Tobacco Use Types [...] Lynne MD - 03/01/2022 7:57 PM CDT Nutrition Assessment Entered On: 03/03/2022 9:55 EDT Performed On: 03/01/2022 19:57 EDT by Aimee Mix Dietitian Nutrition Assessment Current Nutrition Regimen Comment : 03/03: Consults received for PU + MST (due to unsure wt loss). Pt tx from [facility] on 03/01 (due to no pulmonary coverage currently at that facility). Pt reintubated 03/01. Sedated on propofol/fentanyl. Noted plan for SBT today. If fails, then plan for corpak placement. Renal following- no PORTRAIT ARTIST at this time. Stg 2 noted to sacrum. Noted 3kg wt loss since admission to [facility] (not significant). Prior to reintubation on 03/01, pt was averaging 48% of PO diet. Dx: cardiopulmonary arrest, acute respiratory failure, sepsis/septic shock, ARF PMH: paraplegia, hyperlipidemia, DM, Labs: K 2.9 (replaced), Glu 126 (FSBS 119, 116, 120), BUN 55, Cr 2.4 Meds: docusate, pepcid, heparin, glargine, senna, abx Drips: fentanyl, propofol at 13.5 ml/hr (326 kcal) GI: hypoactive, NG to iLWS (no output recorded at this time), LBM 02/27 Skin: stg 2 scarum Diet: NPO Ht: 64 in Wt: 207#/94.2 kg (admit), no new wt (02/27), 91.5 kg (03/03) IBW (adjusted for paraplegia): 50.4 kg (186%) BMI (inaccurate due to paraplegia): 35.6 Est Needs: 4925-3854 kcals (11-14 kcals/kg), ~100 g pro (>2 g pro/kg IBW) Aimee Mix Dietitian - 03/03/2022 10:04 EDT Nutrition Diagnoses Oral or Nutrition Support Intake : Inadequate oral intake Oral or Nutr Support Intake Related To : intubated Oral or Nutr Support Intake Evidenced by : NPO Oral or Nutrition Support Intake Status : Active Nutrient Intake : Increased nutrient needs Nutrient Intake Related to : wound Nutrient Intake As Evidenced by : seg 2 sacrum Nutrient Intake Status : Active Increased Nutrient Needs Comment : protein Aimee Mix Dietitian - 03/03/2022 10:04 EDT Nutrition Interventions Meals and Snacks Other Comment : Pt is NPO Aimee Mix Dietitian - 03/03/2022 10:04 EDT Monitoring/Evaluation Weight Status : Weight Maintanence Gastrointestinal Function : Bowel Function Integumentary : Pressure Ulcer Status Aimee Mix Dietitian - 03/03/2022 10:04 EDT Nutrition Recommendations Dietitian Recommendations : 1. If unable to extubate, then rec placing corpak and intiating Vital HP at 20 ml/hr, AAT to goal of 40 ml/hr while on current rate proprofol (provides 1236 kcal and 77 g protein). Once propofol d/c then increase rate to 55 ml/hr (provides 1210 kcal and 106 g protein). FW per MD Goal: meet est needs 2. If extubated, then rec RESAW CARRIAGE OPERATOR eval (Cardiac, 60 g CHO diet with ONS prn) Goal: safe swallow, intakes > 50% 3. Monitor e-lytes, replace prn (K low) Goal: WNLs 4. Monitor FSBS, adjust insulin prn Goal: glucose 140-180 5. Monitor wt 1x/week Goal: no significant wt loss Risk- High Aimee Mix, Dietitian - 03/03/2022 10:04 EDT Electronically signed by [facility], [facility] Conversion Seed Mill Superintendent Cerner at 12/21/2022 5:01 PM CDT documented in this encounter Plan of Treatment Not on file documented as of this encounter Visit Diagnoses Not on filedocumented in this encounter
--- OUTSIDE RECORDS SUMMARY | 2025-02-21 13:42 | XMS_ITS | Encounter Summary ---
Author Organization [employer] Address [address] [place] [address] Care Team Providers Care Seismograph Recorder Name Role Phone Unavailable Primary Care Provider Unavailabl e Encounter Details Date Type Department Care Team (Late st Contact Info) Description 05/07/2022 Transcribed Document [facility] [place] [address] [place] [address] ProviderFlorentino MD [address] [place] [address] Social History Tobacco Use Types Packs/Day Years Used Date Smoking Tobacco: Never Assessed Comments Unknown Sex and Gender Information Value Date Recorded Sex Assigned at Not on file Legal Sex Female 1:44 PM CDT Gender Identity Not on file Sexual Orientation Not on file documented as of this encounter Miscellaneous Notes * Cerner Conversion Note - Florentino Lynne MD - 05/07/2022 9:55 PM CDT Patient: ALYSSA AZUL Age: 62 years Sex: Female : 1960 Associated Diagnoses: None Author: HIGINIO AREVALO MD-INF Antibiotics: Zyvox cefepime and micafungin CC fevers Subjective: Patient without fevers with no acute changes some [...] tomorrow then discontinue, H&H down some today RECOMMENDATIONS/PLANS: Continue cefepime 1 g IV every 12 hours through 05/08/2022 Continue micafungin 100 mg IV daily through 05/08/2022 Zyvox to 600 p.o. twice daily for 05/08/2022 Monitor H&H E.brPlans for discharge to home after completion of antibiotics, tomorrow at high risk for readmission with recurrent wound infection and recurrent UTIs documented in this encounter Plan of Treatment Not on file documented as of this encounter Visit Diagnoses Not on filedocumented in this encounter
--- OUTSIDE RECORDS SUMMARY | 2025-02-21 13:42 | XMS_ITS | Encounter Summary ---
Author Organization [employer] Address [address] [place] [address] Care Team Providers Care In Home Baby Sitter Name Role Phone Unavailable Primary Care Provider Unavailabl e Encounter Details Date Type Department Care Team (Late st Contact Info) Description 05/04/2022 Transcribed Document [facility] Radiology [address] [place] [address] Melinda Sherwood MD [address] [place] [address] [address] Social History Tobacco Use Types Packs/Day Years Used Date Smoking Tobacco: Never Assessed Comments Unknown Sex and Gender Information Value Date Recorded Sex Assigned at Not on file Legal Sex Female 1:44 PM CDT Gender Identity Not on file Sexual Orientation Not on file documented as of this encounter Miscellaneous Notes * Cerner Conversion Note - Melinda Sherwood MD - 05/04/2022 12:47 PM EDT Patient: ALYSSA AZUL Age: 62 years Sex: Female : 1960 Associated Diagnoses: None Author: MELINDA SHERWOOD MD-INT Subjective Patient was seen and examined today 05/04/2022. Alert oriented x3. No fever or chills. On CPAP machine last night. Currently on room air. Review of Systems Constitutional: Weakness, Fatigue, No [...] Oral, BID Afia-Q: 1 Cap, Oral, BID Maysel 5 mg-325 mg oral tablet: 1 Tab, Oral, Q6H, PRN: Pain (Moderate 4-6) PRAVAstatin: 40 mg, Oral, At Bedtime Pepcid: 20 mg, Oral, At Bedtime Vitamin C: 500 mg, Oral, BID acetaminophen: 650 mg, Oral, Q6H, PRN: Pain (Mild 1-3) cefepime + Sodium Chloride 0.9% intravenous solution 50 mL: 1 Gram, 100 mL/Hr, IV Piggyback, [id number] cloNIDine: 0.1 mg, Oral, Q4H, PRN: Other [...] micafungin: 100 mg, 100 mL/Hr, IV Piggyback, [id number] Documented Medications Documented Farxiga 10 mg oral [...] 0.9% 50 mL 1 Gram, IV Piggyback, [id number] famotidine 20 mg tab 20 mg 1 [...] Q12H micafungin sodium 100 mg, IV Piggyback, [id number] omega-3 fish oil 1,000 mg cap 2,000 [...] Problem list: Medical Diabetes / SNOMED CT 816869251 / Confirmed History of obstructive sleep apnea / IMO [id number] / Confirmed, Active Problems (6) Chronic kidney disease (CKD), stage III (moderate) Diabetes History of obstructive sleep apnea Hyperlipidemia Hypertension Paraplegia Objective VS/Measurements Vitals Signs (last 24 hrs) Last Charted Minimum Maximum Temp 98.2 (MAY 04 05:04) 98.2 (MAY 04 05:04) 98.1 (MAY 03 15:11) Apical HR H 102 (MAY 03 17:51) H 102 (MAY 03 17:51) H 102 (MAY 03 17:51) Mon HR 58 (MAY 04 11:24) 58 (MAY 04 11:24) 93 (MAY 03 20:05) Resp Rate 18 (MAY 04 05:04) 17 (MAY 03 15:11) 18 (MAY 03 20:05) SBP 128 (MAY 04 09:09) 97 (MAY 04 02:00) H 184 (MAY 03 17:28) DBP 86 (MAY 04 09:09) L 59 (MAY 04 02:00) H 95 (MAY 03 17:28) MAP 100 (MAY 04 09:09) 71 (MAY 04 02:00) 145 (MAY 03 17:28) SpO2 L 88 (MAY 04 11:24) L 88 (MAY 04 11:24) 99 (MAY 03 15:11) General: Alert and oriented, No acute distress. [...] mood & affect. Review / Management MAY 04 04:45 138 107 H 35 / H 178 4.5 27 H 1.20 \ MAY 04 04:45 \ L 8.5 / 5.1 355 / L 26.7 \ No Radiology Results Found Results review: Labs (Last four charted values) WBC 5.1 (MAY 04) L 4.4 (MAY 03) L 4.3 (MAY 02) L 4.4 (MAY 01) HB L 8.5 (MAY 04) L 8.8 (MAY 03) L 8.2 (MAY 02) L 7.6 (MAY 01) HCT L 26.7 (MAY 04) L 27.0 (MAY 03) L 26.4 (MAY 02) L 24.6 (MAY 01) Plt 355 (MAY 04) H 387 (MAY 03) 317 (MAY 02) 357 (MAY 01) Na 138 (MAY 04) 140 (MAY 03) 136 (MAY 02) 140 (MAY 01) K 4.5 (MAY 04) 4.4 (MAY 03) 4.8 (MAY 02) 4.5 (MAY 01) Cl 107 (MAY 04) 108 (MAY 03) H 117 (MAY 02) H 116 (MAY 01) CO2 27 (MAY 04) 27 (MAY 03) L 16 (MAY 02) 21 (MAY 01) BUN H 35 (MAY 04) H 31 (MAY 03) H 28 (MAY 02) 22 (MAY 01) Cr H 1.20 (MAY 04) H 1.20 (MAY 03) H 1.10 (MAY 02) 1.00 (MAY 01) Glu R H 178 (MAY 04) H 198 (MAY 03) H 139 (MAY 02) H 158 (MAY 01) Ca 9.5 (MAY 04) 9.3 (MAY 03) 8.8 (MAY 02) 8.6 (MAY 01) Lactic 0.7 (APR 29) C 5.2 (APR [...] agreeable. To be done by interventional radiology next Thursday Acute on chronic kidney failure. Metabolic acidosis [...]
--- OUTSIDE RECORDS SUMMARY | 2025-02-21 13:42 | XMS_ITS | Encounter Summary ---
Author Organization [email or web address] Address [address] [place] [address] Care Team Providers Care Meteorology Faculty Member Name Role Phone Unavailable Primary Care Provider Unavailabl e Encounter Details Date Type Department Care Team (Late st Contact Info) Description 03/01/2022 Transcribed Document [facility] [place] [facility] [place] [address] ProviderFlorentino MD [address] [place] [address] Social History Tobacco Use Types Packs/Day Years Used Date Smoking Tobacco: Never Assessed Comments Unknown Sex and Gender Information Value Date Recorded Sex Assigned at Not on file Legal Sex Female 1:44 PM CDT Gender Identity Not on file Sexual Orientation Not on file documented as of this encounter Miscellaneous Notes * Cerner Conversion Note - Florentino Lynne MD - 03/01/2022 6:46 PM CDT Infectious Disease History-Update Entered On: 03/01/2022 18:57 EDT Performed On: 03/01/2022 18:46 EDT by Colette Dowling RN-PATIENT CARE BEDSIDE NON-EXEMPT Infectious Disease History Does patient have symptoms of COVID-19? : Unable to obtain or unsure Tested for COVID19 in the past 14 days : Yes, Patient stated results Negative Does the Patient state known exposure to a COVID-19 positive case in the last 14 days? : No Patient Vaccinated for COVID-19 : Unable to obtain Colette Dowling RN-PATIENT CARE BEDSIDE NON-EXEMPT - 03/01/2022 18:57 EDT Infectious Disease Risk Screening Grid Cough < 2 wks of unknown origin : Unable to obtain Cough > 2 weeks : Unable to obtain Blood in Sputum : Unable to obtain Fever or self-reported Fever : Unable to obtain Rash of unknown origin : Unable to obtain Headache : Unable to obtain Stiff neck : Unable to obtain Night Sweats : Unable to obtain Unexplained Weight Loss : Unable to obtain Diarrhea (3 episode per day) : Unable to obtain Colette Dowling RN-PATIENT CARE BEDSIDE NON-EXEMPT - 03/01/2022 18:57 EDT Physical contact outside [place] in the last 30 days : Unable to obtain Hospitalized in Foreign Country : Unable to obtain Infectious Disease History : Unable to assess INF Disease TB Screening Calc : 0 INF Disease Recent Travel Calc : 0 Colette Dowling RN-PATIENT CARE BEDSIDE NON-EXEMPT - 03/01/2022 18:57 EDT documented in this encounter Plan of Treatment Not on file documented as of this encounter Visit Diagnoses Not on filedocumented in this encounter
--- OUTSIDE RECORDS SUMMARY | 2025-02-21 13:42 | XMS_ITS | Encounter Summary ---
Author Organization [employer] Address [address] [place] [address] Care Team Providers Care Auto Dismantler Name Role Phone Unavailable Primary Care Provider Unavailabl e Encounter Details Date Type Department Care Team (Late st Contact Info) Description 05/07/2022 Transcribed Document [facility] [place] [place] Family Medicine [address] [place] [address] ProviderFlorentino MD [address] [place] [address] Social History Tobacco Use Types Packs/Day Years Used Date Smoking Tobacco: Never Assessed Comments Unknown Sex and Gender Information Value Date Recorded Sex Assigned at Not on file Legal Sex Female 1:44 PM CDT Gender Identity Not on file Sexual Orientation Not on file documented as of this encounter Miscellaneous Notes * Cerner Conversion Note - Florentino Lynne MD - 05/07/2022 11:01 AM CDT Patient: ALYSSA AZUL Age: 62 Years Sex: Female : 1960 Subjective Date of service 05/07/2022 The patient reports no acute events overnight. She is tolerating her IV antibiotic therapy with no adverse events. Nursing staff report that she remains afebrile with stable vital signs and saturating appropriately on room air. She continues with NIPPV therapy at night. Her CBC identifies a normal white blood cell count and stable hemoglobin. Review of systems Constitutional: No fever, no chills Respiratory: No acute dyspnea, no cough Cardiovascular: No chest pain, no palpitation, no increasing pedal edema GI: No nausea, vomiting or diarrhea Neuro: No confusion, no acute motor or sensory changes Vital Signs T: 36.7 ??C TMIN: 36.4 ??C TMAX: 37 ??C HR: 80(Monitored) RR: 16 BP: 139/85 SpO2: 95% Oxygen Settings (Last) Oxygen Therapy Mode: BiPAP (05/07/22 10:00:00) Intake & Output Totals Last 24 Hours (7a-7a) Input Total: 200 mL Output Total: 1550 mL Balance: -1350 mL Physical Exam General: Alert and oriented, [...] therapy evaluations The patient is hospitalized day 8 with above diagnoses. We appreciate infectious disease consult and recommendations. Case management is assisting with next site of care which is expected to be home. Barriers to discharge currently include completion of [...] 600 mg= 1 Tab, Oral, Q12H micafungin [place] 5 mg-325 mg oral tablet, 1 Tab, Oral, Q6H, PRN Pepcid, 20 mg= 1 Tab, Oral, At Bedtime PRAVAstatin, 40 mg= 2 Tab, Oral, At Bedtime Vitamin C, 500 mg= 1 Tab, Oral, BID Lab Results Test Name Test Result Date/Time Sodium Level 135 mmol/L (Low) 05/07/2022 04:59 EDT Potassium Level 4.9 mmol/L 05/07/2022 04:59 EDT Chloride Level 105 mmol/L 05/07/2022 04:59 EDT Carbon Dioxide Level 23 mmol/L 05/07/2022 04:59 EDT Anion Gap 12 05/07/2022 04:59 EDT Glucose Level 181 mg/dL (High) 05/07/2022 04:59 EDT Blood Urea Nitrogen 30 mg/dL (High) 05/07/2022 04:59 EDT Creatinine Level 1.50 mg/dL (High) 05/07/2022 04:59 EDT eGFR 43 mL/min/1.73m2 (Low) 05/07/2022 04:59 EDT eGFR NonAfrican 35 mL/min/1.73m2 (Low) 05/07/2022 04:59 EDT Bun/Creatinine 20.0 05/07/2022 04:59 EDT Calcium Level 9.2 mg/dL 05/07/2022 04:59 EDT Device Comment 1 Notified Nurse RBV 05/07/2022 05:48 EDT Device Comment 1 Notified Nurse RBV 05/06/2022 21:00 EDT Device Comment 1 Notified Nurse RBV 05/06/2022 18:02 EDT Device Comment 1 Notified Nurse RBV 05/06/2022 12:03 EDT Glucose POC2 195 mg/dL (High) 05/07/2022 05:48 EDT Glucose POC2 212 mg/dL (High) 05/06/2022 21:00 EDT Glucose POC2 194 mg/dL (High) 05/06/2022 18:02 EDT Glucose POC2 150 mg/dL (High) 05/06/2022 12:03 EDT CRP 0.83 mg/dL (High) 05/07/2022 04:59 EDT WBC 7.3 K/uL 05/07/2022 04:59 EDT RBC 3.40 Million/uL (Low) 05/07/2022 04:59 EDT Hgb 10.0 g/dL (Low) 05/07/2022 04:59 EDT Hct 31.7 % (Low) 05/07/2022 04:59 EDT MCV 93.2 fL 05/07/2022 04:59 EDT MCH 29.4 pg 05/07/2022 04:59 EDT MCHC 31.5 Gram/dL (Low) 05/07/2022 04:59 EDT Platelet Count 274 K/uL 05/07/2022 04:59 EDT MPV 9.8 fL 05/07/2022 04:59 EDT RDW 15.8 % (High) 05/07/2022 04:59 EDT Neut % 52.1 % 05/07/2022 04:59 EDT Neut # 3.82 K/uL 05/07/2022 04:59 EDT Lymph % 24.9 % 05/07/2022 04:59 EDT Lymph # 1.83 x10(3)/uL 05/07/2022 04:59 EDT [place] % 9.3 % (High) 05/07/2022 04:59 EDT [place] # 0.68 K/uL 05/07/2022 04:59 EDT Eos % 5.2 % 05/07/2022 04:59 EDT Eos # 0.38 x10(3)/uL 05/07/2022 04:59 EDT Baso % 1.6 % (High) 05/07/2022 04:59 EDT Baso # 0.12 x10(3)/uL 05/07/2022 04:59 EDT nRBC 0.050 (High) 05/07/2022 04:59 EDT RBC Morphology Normal 05/07/2022 04:[address] Estimate Adequate 05/07/2022 04:59 EDT Slide Review Technologist 05/07/2022 04:59 EDT IG# 0.51 x10(3)/uL (High) 05/07/2022 04:59 EDT IG% 6.90 % (High) 05/07/2022 04:59 EDT documented in this encounter Plan of Treatment Not on file documented as of this encounter Visit Diagnoses Not on filedocumented in this encounter
--- OUTSIDE RECORDS SUMMARY | 2025-02-21 13:42 | XMS_ITS | Encounter Summary ---
Author Organization [employer] Address [address] [place] [address] Care Team Providers Care Manager Power Name Role Phone Unavailable Primary Care Provider Unavailabl e Encounter Details Date Type Department Care Team (Late st Contact Info) Description 02/22/2022 Transcribed Document [facility] [place] Family Medicine [address] [place] [address] ProviderFlorentino MD [address] [place] [address] Social History Tobacco Use Types Packs/Day Years Used Date Smoking Tobacco: Never Assessed Comments Unknown Sex and Gender Information Value Date Recorded Sex Assigned at Not on file Legal Sex Female 1:44 PM CDT Gender Identity Not on file Sexual Orientation Not on file documented as of this encounter Miscellaneous Notes * Cerner Conversion Note - Florentino Lynne MD - 02/22/2022 5:00 PM CDT Chart Check - Review Order Profile Entered On: 02/22/2022 18:21 EDT Performed On: 02/22/2022 17:00 EDT by Maritza Elena RN Chart Check Powerplans Initiated/Discontinued as Appropriate : Yes All Active Orders Reviewed : Yes Maritza Elena RN - 02/22/2022 18:21 EDT Electronically signed by Sumaya [facility] Conversion News Specialist Cerner at 12/21/2022 5:00 PM CDT documented in this encounter Plan of Treatment Not on file documented as of this encounter Visit Diagnoses Not on filedocumented in this encounter
--- OUTSIDE RECORDS SUMMARY | 2025-02-21 13:42 | XMS_ITS | Encounter Summary ---
Author Organization [employer] Address [address] [place] [address] Care Team Providers Care Laundry Tub Maker Name Role Phone Unavailable Primary Care Provider Unavailabl e Encounter Details Date Type Department Care Team (Late st Contact Info) Description 05/07/2022 Transcribed Document [facility] [place] Family Medicine [address] [place] [address] ProviderFlorentino MD [address] [place] [...] Note - Florentino ProviderMD - 05/07/2022 5:00 AM CDT Chart Check - Review Order Profile Entered On: 05/07/2022 3:07 EDT Performed On: 05/07/2022 5:00 EDT by Edda Guzman Non Emp Traveler RN Chart Check Powerplans Initiated/Discontinued as Appropriate : Yes All Active Orders Reviewed : Yes Edda Guzman Non Emp Traveler RN - 05/07/2022 3:07 EDT documented in this encounter Plan of Treatment Not on file documented as of this encounter Visit Diagnoses Not on filedocumented in this encounter
--- OUTSIDE RECORDS SUMMARY | 2025-02-21 13:42 | XMS_ITS | Encounter Summary ---
Author Organization [facility] Address [address] [place] [address] Care Team Providers Care Bed Laborer Name Role Phone Unavailable Primary Care Provider Unavailabl e Encounter Details Date Type Department Care Team (Late st Contact Info) Description 03/01/2022 Transcribed Document [facility] [place] Family Medicine [facility] [place] [address] [facility] [address] Social History Tobacco Use Types Packs/Day Years Used Date Smoking Tobacco: Never Assessed Comments Unknown Sex and Gender Information Value Date Recorded Sex Assigned at Not on file Legal Sex Female 1:44 PM CDT Gender Identity Not on file Sexual Orientation Not on file documented as of this encounter Miscellaneous Notes * Cerner Conversion Note - Florentino ProviderMD - 03/01/2022 5:29 PM CDT Admission History, Adult Entered On: 03/01/2022 18:46 EDT Performed On: 03/01/2022 17:29 EDT by Colette Dowling RN-PATIENT CARE BEDSIDE NON-EXEMPT Advance Directive Patient has Advance Directive *Q : No, patient refuses Advance Directive information Colette Dowling RN-PATIENT CARE BEDSIDE NON-EXEMPT - 03/01/2022 18:41 EDT Anesthesia/Transfusion History Family History of Anesthesia Reaction : Unknown Transfusion History : Unknown Family History of Anesthesia Reaction : Unknown Colette Dowling RN-PATIENT CARE BEDSIDE NON-EXEMPT - 03/01/2022 18:41 EDT Functional Assessment Living Situation : Home Mobility Assistance Prior to Admission : Use of assistive devices ALANIZ Hx Falls Immediate/Within 3 Months : No Current Home Treatments : Blood glucose monitoring, Wound care Wound Care Comment : pt has wound vac Wound Date of Last Care *Q : 02/27/2022 EDT Colette Dowling RN-PATIENT CARE BEDSIDE NON-EXEMPT - 03/01/2022 18:41 EDT General Info Unable to Assess Patient History : Patient intubated Legal Guardian : No Contact Password : [id number] Want Family/Rep/Phys Notified of Admit : No Emergency Contact #1 : Colette Cruz RN-PATIENT CARE BEDSIDE NON-EXEMPT - 03/01/2022 18:41 EDT Emergency Contact #1 Jenifer Fonseca RN - 03/02/2022 15:33 EDT Emergency Contact #1 Relationship : son Emergency Contact #2 : Divine Jorge Alberto Emergency Contact #2 Emergency Contact #2 Relationship : Daughter in-law Identified Medical Decision Maker : FREDO Azul Identified Medical Decision Maker Number of People in Class : 1 Identified Medical Decision Maker Class : Adult Children Primary Language : Argentine Communication Barrier : None Computer Systems Security Analyst Needed : No Colette Dowling RN-PATIENT CARE BEDSIDE NON-EXEMPT - 03/01/2022 18:41 EDT Fall Risk Scales ABCs Fall Injury Risk Identification : Coagulation ABC Fall Injury Risk : Moderate to high injury risk Injury Moderate to High Risk Interventions : Specialty low bed ALANIZ Hx Falls Immediate/Within 3 Months : No Rodriguez Secondary Diagnosis : Yes ALANIZ Use of Ambulatory Aid : Bed rest/Nurse assist ALANIZ IV Therapy or IV Access : Yes Rodriguez Gait/Transferring : Impaired Rodriguez Mental Status : Overestimates/Forgets limitations Alaniz Fall Risk Score : 70 ALANIZ Fall Scale Risk Level : 46 or > High Risk Hamilton Fall Interventions : Adequate lighting, Assistive devices within reach, Bed in low position, Call device within reach, Hourly comfort/safety rounds, Personal items within reach, Reinforced to call for assistance before getting out of bed, Room free of clutter/spills, Upper side-rails up, Wheels locked, Wires/Cords secured Fall Risk Scale Calc Temp : 0 Colette Dowling RN-PATIENT CARE BEDSIDE NON-EXEMPT - 03/01/2022 18:41 EDT Health Histories Smoking Status : Never (less than 100 in lifetime; none in last 30 days) Smokeless Tobacco Status : Never Colette Dowling RN-PATIENT CARE BEDSIDE NON-EXEMPT - 03/01/2022 18:41 EDT Social History (As Of: 03/01/2022 18:46:07 EDT) Height and Weight, Clinical Dosing Height Source : Chart Height Entry Format : Page Height, Feet : 5 ft(Converted to: 152 cm, 60 Inch) Height, Inches : 4 Inch(Converted to: 0 ft 4 Inch, 10.16 cm) Clinical Height : 162.56 cm Weight Source : Bed scale Weight Entry Format : Metric, kilograms Weight, Kilograms : 90 kg(Converted to: 198 lb 7 oz) Clinical Dosing Weight : 90 kg Body Surface Area (BSA) : 1.95 m2 Body Mass Index : 34.1 kg/m2 (HI) [place] Body Weight : 54 kg Colette Dowling RN-PATIENT CARE BEDSIDE NON-EXEMPT - 03/01/2022 18:41 EDT Infectious Disease History Does patient have symptoms of COVID-19? : Unable to obtain or unsure Tested for COVID19 in the past 14 days : Yes, Patient stated results Negative Does the Patient state known exposure to a COVID-19 positive case in the last 14 days? : Unable to obtain or unsure Patient Vaccinated for COVID-19 : Unable to obtain Colette Dowling RN-PATIENT CARE [facility] NON-EXEMPT - 03/01/2022 18:41 EDT Infectious Disease Risk Screening Grid Cough [...] Unable to obtain Colette Dowling RN-PATIENT CARE [facility] NON-EXEMPT - 03/01/2022 18:41 EDT Physical contact outside [place] in the last 30 days : Unable to obtain Hospitalized in Foreign Country : Unable to obtain Infectious Disease History : Unable to assess INF Disease TB Screening Calc : 0 INF Disease Recent Travel Calc : 0 Dowling, Colette C, RN-PATIENT CARE BEDSIDE NON-EXEMPT - 03/01/2022 18:41 EDT Influenza Vaccine Asmt, Adult Previous Vaccines from Immunization Schedule : No qualifying data available. Influenza Immunization, Current Season : Outside of influenza season Colette Dowling RN-PATIENT CARE [facility] NON-EXEMPT - 03/01/2022 18:41 EDT Pneumococcal Vaccine Previous Vaccines from Immunization Schedule : No qualifying data available. Pneumonia Immunization Received : Unknown Pneumococcal Risk Assessment < Age 65 : Chronic renal failure or nephrotic syndrome Pneumococcal Vaccine Contraindications : No contraindications to pneumococcal vaccine Transplant Workup/Recent Transplant : No Order for Pneumococcal Vaccine : Declined Vaccination Colette Dowling RN-PATIENT CARE BEDSIDE NON-EXEMPT - 03/01/2022 18:41 EDT Order Details Patient Needs Meds Crushed/Liquid : Yes Meds Administered Via Tube : Yes Colette Dowling RN-PATIENT CARE [facility] NON-EXEMPT - 03/01/2022 18:41 EDT Nutrition History Eating Poorly Due to Decreased Appetite : No Unplanned Weight Loss in Past 3-6 Months : Unsure Unplanned Weight Loss Amount : Unsure Malnutrition Screening Tool Total(mal) : 4 Malnutrition Screening Tool Risk Level : Patient at risk Colette Dowling RN-PATIENT CARE [facility] NON-EXEMPT - 03/01/2022 18:41 EDT [place]ana Diaz Suicide Severity Rating Scale (C-SSRS) CSSRS Past Month Wish to be : Unable to obtain CSSRS Past Month Suicidal Thoughts : Unable to obtain CSSRS Lifetime Suicide Behavior : Unable to obtain Suicide Severity Rating Score : -105 Suicide Severity Rating : Reassessment required Colette Dowling RN-PATIENT CARE [facility] NON-EXEMPT - 03/01/2022 18:41 EDT Psychosocial History Currently in Unsafe Situation : No Colette Dowling RN-PATIENT CARE [facility] NON-EXEMPT - 03/01/2022 18:41 EDT Sleep Apnea Risk Assmt BiPAP/CPAP Ordered for Home Use : Yes Hx of Obstructive Sleep Apnea Diagnosis : Yes BiPAP/CPAP Used at Home : Yes Age over 50 Years Old : Yes Gender Male : No Colette Dowling RN-PATIENT CARE [facility] NON-EXEMPT - 03/01/2022 18:41 EDT Valuables and Belongings Valuables and Belongings : No comfort items, No jewelry, No personal devices, No personal items, No assistive devices, No respiratory devices, No medications Colette Dowling RN-PATIENT CARE BEDSIDE NON-EXEMPT - 03/01/2022 18:41 EDT Electronically signed by [facility] Conversion Medical Office Clerk Cerner at 12/21/2022 5:07 PM CDT documented in this encounter Plan of Treatment Not on file documented as of this encounter Visit Diagnoses Not on filedocumented in this encounter
--- OUTSIDE RECORDS SUMMARY | 2025-02-21 13:42 | XMS_ITS | Encounter Summary ---
Author Organization [facility] Address [address] [place] [address] Care Team Providers Care Dehairing Machine Tender Name Role Phone Unavailable Primary Care Provider Unavailabl e Encounter Details Date Type Department Care Team (Late st Contact Info) Description 02/22/[address] [facility] [place] Family Medicine [address] [place] [address] ProviderFlorentino MD formerly [facility] [place], [place] [id number] Social History Tobacco Use Types Packs/Day Years Used Date Smoking Tobacco: Never Assessed Comments Unknown Sex and Gender Information Value Date Recorded Sex Assigned at Not on file Legal Sex Female 1:44 PM CDT Gender Identity Not on file Sexual Orientation Not on file documented as of this encounter Miscellaneous Notes * Cerner Conversion Note - Florentino Lynne MD - 02/22/2022 2:47 PM CDT Patient: ALYSSA AZUL Age: 61 years Sex: Female : 1960 Associated Diagnoses: None Author: MONSE KIM MD-INF ID Consultation/Initial Referring Provider: Geneva Amezcua MD: Monse Kim MD Admit Date 02/22/2022 00:01 Date of consultation: 02/22/22 Reason for consultation: sepsis CC: respiratory failure HPI: 61 yo female with hx of paraplegia, diabetes, HTN and obesity. Presented to [facility] with complaints of fevers and chills for [...] T max 99.6. Family member at bedside. ROS: Unable to obtain due to critical illness. AllergiesAllergies (1) Active Reaction No Known Allergies None Documented Medications by Classification Antimicrobials piperacillin-tazobactam + Sodium Chloride 0.9% intravenous s - 2.25 Gram, IV Piggyback, Inj, Q8HInt, infuse over 3 Hour(s) Anticoagulant heparin - 5,000 Units, SubCutaneous, Inj, Q8HInt, Routine Respiratory albuterol (albuterol 2.5 mg/3 mL (0.083%) inhalation solutio - 3 mL, Nebulized Inhalation, Inh, RT_Q4H, PRN for Shortness of Breath, Routine albuterol-ipratropium (albuterol-ipratropium 2.5 mg-0.5 mg/3 - 3 mL, Nebulized Inhalation, Inh, RT_QID, Routine guaiFENesin (Mucinex) - 1,200 mg, Oral, ER Tab, BID, Routine GI ondansetron - 4 mg, IV Push, Inj, Q6H, PRN for Nausea/Vomiting, Routine pantoprazole - 40 mg, IV Push, Inj, Daily, Routine Endocrine insulin lispro (insulin lispro sliding scale) - Scale A:, SubCutaneous, Inj, AC and at Bedtime, Routine glucose (Dextrose 50% injection) - 25 Gram, IV Push, Inj, Q15Min, PRN for Other (See Comment), Routine glucose (Dextrose 50% injection) - 25 Gram, IV Push, Inj, Q15Min, PRN for Other (See Comment), Routine glucose (Dextrose 50% injection) - 25 Gram, IV Push, Inj, Q15Min, PRN for Other (See Comment), Routine glucose (Dextrose 50% injection) - 12.5 Gram, IV Push, Inj, Q15Min, PRN for Other (See Comment), Routine glucose (glucose 4 g oral tablet, chewable) - 16 Gram, 4 Tab, Chew, Tab, Q15Min, PRN for Other (See Comment), Routine glucose (glucose 40% oral gel) - 15 Gram 37.5 mL, Oral, Gel, Q15Min, PRN for Other (See Comment), Routine Pain Meds fentaNYL - 25 mcg, IV Push, Inj, Q4H While Awake, PRN for Pain (Severe 7-10), Routine acetaminophen - 650 mg, Oral, Tab, Q6H, PRN for Pain (Mild 1-3), Routine traMADol - 50 mg, Oral, Tab, Q6H, PRN for Pain (Moderate 4-6), Routine Sedatives ALPRAZolam (Xanax) - 0.5 mg, Oral, Tab, Q6H, PRN for Anxiety, Routine Topical phenol topical (Chloraseptic Menthol 1.4% topical spray) - 1 Beeler, Oral, Beeler, Q2H, PRN for Sore Throat, Routine Undefined Medications glucagon - 1 mg, IntraMuscular, Inj, Q15Min, PRN for Other (See Comment), Routine Past Medical History: paraplegia, diabetes, HTN and obesity Past Surgical History: I&D of left gluteal wound at OSH x2 Family History: Unable to confirm Social History: lives in [place] Physical Examination:Vitals Signs (last 24 hrs) Last Charted Minimum Maximum Temp 99.6 (FEB 22 12:00) 98.9 (FEB 22 00:15) 99 (FEB 22 04:00) Mon HR 83 (FEB 22 13:45) 52 (FEB 22 07:15) 88 (FEB 22 11:41) Resp Rate H 36 (FEB 22 13:45) 18 (FEB 22 01:00) H 48 (FEB 22 12:15) SBP 138 (FEB 22 13:45) L 76 (FEB 22 09:15) H 192 (FEB 22 00:15) DBP 64 (FEB 22 13:45) L 43 (FEB 22 09:15) H 96 (FEB 22 12:30) MAP 92 (FEB 22 13:45) 55 (FEB 22 09:15) 124 (FEB 22 00:15) SpO2 97 (FEB 22 13:45) L 90 (FEB 22 12:30) 100 (FEB 22 00:58) General: Somnolent. On BiPAP HENT: dry oral mucosa, NG tube in place Neck: Supple, non-tender, no cervical lymphadenopathy Lungs: Diminished at bases but no rales appreciated. No cough. On BiPAP Heart: Normal rate, regular rhythm, no murmur appreciated Abdomen: obese. Soft, non-tender Skin: no rash on visible skin. Reviewed images of large left gluteal ulceration, several centimeters deep to level of soft tissue. Dark discoloration of soft tissue throughout the wound bed Neurologic: somnolent RUE PICC Labs:Labs (Last four charted values) WBC 8.9 (FEB 22) H 18.6 (FEB 21) HB L 8.1 (FEB 22) L 7.1 (FEB 22) L 8.7 (FEB 21) HCT L 26.0 (FEB 22) L 22.9 (FEB 22) L 27.7 (FEB 21) Plt 218 (FEB 22) H 373 (FEB 21) Na 146 (FEB 22) 144 (FEB 21) K 4.4 (FEB 22) 4.3 (FEB 21) Cl H 120 (FEB 22) H 119 (FEB 21) CO2 L 12 (FEB 22) L 13 (FEB 21) BUN H 50 (FEB 22) H 46 (FEB 21) Cr H 2.83 (FEB 22) H 2.60 (FEB 21) Glu R H 229 (FEB 22) H 225 (FEB 21) Ca L 6.8 (FEB 22) L 6.9 (FEB 21) Lactic 0.7 (FEB 22) AST 17 (FEB 21) ALT 21 (FEB 21) ALK P 76 (FEB 21) T Bili 0.3 (FEB 21) PTN L 6.3 (FEB 21) ALB L 1.9 (FEB 21) Creatinine Clearance (Current Encounter/Past 24 Hours) Creatinine Level 2.83 mg/dL HI 02/22/2022 06:55 Bun/Creatinine 17.7 02/22/2022 06:38 Estimated Creatinine Clearance 18.03 mL/Min 02/22/2022 06:38 Microbiology: [facility]: 02/20 left gluteal wound culture pending, no growth at time of transfer 02/21 blood cultures pending at time of transfer 02/21 BAL culture pending at time of transfer [facility]: 02/22 blood cx pending 02/22 gluteal wound culture pending Radiology: Radiology Results (Last 48 hours) [id number] -- 02/22/2022 00:01 CR Chest 1 Vw Portable (02/22/2022 01:22) Result: PORTABLE CHEST 02/21/2022 10:11 PMHISTORY: PneumoniaCOMPARISON: NoneFINDINGS: There is endotracheal tube present with the tip terminating 6cm superior to the brigitte. There is a right-sided PICC line tipterminates in the SVC. The cardiac silhouette is mildly enlarged. Theaortic contours are normal. The mediastinal and hilar structures areunremarkable. There is left lower lobe consolidation. There is bibasilaratelectasis. There is no pneumothorax.IMPRESSION: Left lower consolidation and bibasilar atelectasis.Continued follow-up recommended.Images reviewed, interpreted, and dictated by Dr. Jaycob Wynne.Transcribed by Quincy Sanchez PA-C.I have personally viewed, interpreted and dictated the examination. Ihluis fernando read and agree with the above final transcribed report. CR Abdomen 1 Vw Portable (02/22/2022 09:32) Result: KUBHISTORY: NG tube placement.COMPARISON: None.FINDINGS: The NG tube is identified below the diaphragm. The bowel gaspattern is nonspecific.IMPRESSION: NG tube tip terminates at the pylorus. Images reviewed, interpreted, and dictated by Dr. Jaycob Wynne.Transcribed by Quincy Sanchez PA-C.I have personally viewed, interpreted and dictated the examination. Ihluis fernando read and agree with the above final transcribed report. I personally reviewed the above CXR: bibasilar opacities. IMPRESSION: - Septic shock: Improved, now off vasopressors. Source presumed to be left gluteal wound but could also have been be pneumonia - Large left gluteal soft tissue infection, ulceration, to level of soft tissue: Status post I&D x3 at [facility]. Cultures pending from there also [facility]. Dr. Cortez evaluated at [place] and did not think any additional intervention is required. Black tissue throughout wound bed thought to be related to electrocautery rather than active necrosis. Wound care team has been consulted. -Acute hypoxic respiratory failure and Bilateral pulmonary infiltrates: Pneumonia versus infection. Diagnosed with pneumonia on admission at outside hospital. Pulmonary infiltrates and elevated BNP not surprising after cardiac arrest - Cardiac arrest at outside hospital prior to transfer - Metabolic acidosis - Acute kidney failure on reported CKD, unknown stage - Acute encephalopathy -Neutrophilic leukocytosis: Significantly improved already - Anemia - Chronic paraplegia - Obesity - DM2 RECOMMENDATIONS/PLANS: - Outside records reviewed and summarized as above. Follow-up pending blood, wound and BAL cultures from [facility] - Follow-up all pending cultures from yesterday - Follow CBC, CMP, CRP - Vancomycin on hold, but level significantly elevated, greater than 50 mcg/mL on admission on admission so provide coverage for quite some time. Will trend random levels and reevaluate ongoing need for MRSA coverage once they have dropped below therapeutic range - Continue Zosyn, renally dosed further broad-spectrum coverage Will follow pending cultures and tailor therapy as indicated. So far hemodynamics seem to be improving on current regimen Complex medical decision making. Discussed with family at bedside as well as nursing staff. Patient is critically ill. I spent greater than 50 minutes in total care of this critically ill patient today. I will follow over the weekend. documented in this encounter Plan of Treatment Not on file documented as of this encounter Visit Diagnoses Not on filedocumented in this encounter
--- OUTSIDE RECORDS SUMMARY | 2025-02-21 13:42 | XMS_ITS | Encounter Summary ---
Author Organization [facility] Address [address] [place] [address] Care Team Providers Care Warehouser Name Role Phone Unavailable Primary Care Provider Unavailabl e Encounter Details Date Type Department Care Team (Late st Contact Info) Description 02/22/2022 Transcribed Document [facility] [place] [address] [place] [address] ProviderFlorentino MD [address] [place] [address] Social History Tobacco Use [...] Note - Florentino Lynne MD - 02/22/2022 12:20 AM CDT Height and Weight, Clinical Dosing Entered On: 02/22/2022 0:20 EDT Performed On: 02/22/2022 0:20 EDT by Bridgette Ribera RN-PATIENT CARE BEDSIDE NON-EXEMP Height and Weight, Clinical Dosing Height Source : Chart Height Entry Format : [place] Height, Feet : 5 ft(Converted to: 152 cm, 60 Inch) Height, Inches : 4 Inch(Converted to: 0 ft 4 Inch, 10.16 cm) Clinical Height : 162.56 cm Body Surface Area (BSA) : 1.99 m2 Body Mass Index : 35.6 kg/m2 (HI) [place] Body Weight : 54 kg Bridgette Ribera RN-PATIENT CARE BEDSIDE NON-EXEMP - 02/22/2022 6:01 EDT Weight Source : Bed scale Weight Entry Format : Metric, kilograms Weight, Kilograms : 94.2 kg(Converted to: 207 lb 11 oz) Clinical Dosing Weight : 94.2 kg Ribera, Bridgette R, RN-PATIENT CARE BEDSIDE NON-EXEMP - 02/22/2022 0:20 EDT documented in this encounter Plan of Treatment Not on file documented as of this encounter Visit Diagnoses Not on filedocumented in this encounter
--- OUTSIDE RECORDS SUMMARY | 2025-02-21 13:42 | XMS_ITS | Encounter Summary ---
Author Organization [facility] Address [address] [place] [address] Care Team Providers Care Educational Resource Center Teacher Name Role Phone Unavailable Primary Care Provider Unavailabl e Encounter Details Date Type Department Care Team (Late st Contact Info) Description 04/22/2022 Transcribed Document [facility] [place] [address] [place] [address] ProviderFlorentino MD [address] [place] [address] Social History Tobacco Use Types Packs/Day Years Used Date Smoking Tobacco: Never Assessed Comments Unknown Sex and Gender Information Value Date Recorded Sex Assigned at Not on file Legal Sex Female 1:44 PM CDT Gender Identity Not on file Sexual Orientation Not on file documented as of this encounter Miscellaneous Notes * Cerner Conversion Note - Florentino Lynne MD - 04/22/2022 11:02 AM CDT Patient: ALYSSA AZUL Age: 61 years Sex: Female : 1960 Associated Diagnoses: None Author: CHICA RAZA MD-[facility] Subjective Chief complaint. 04/22/22 awake weak no fever Health Status Allergies: [...] IV Push, Q6H, PRN: Hypertension insulin glargine: 10 Units, SubCutaneous, BID insulin lispro 76 kg [...] Q8H insulin glargine 1 unit/0.01 mL inj 10 Units 0.1 mL, SubCutaneous, BID insulin lispro 1 unit/0.01 [...] History of obstructive sleep apnea / IMO [id number] / Confirmed Diabetes / SNOMED CT [id number] / Confirmed, Active Problems (6) Chronic kidney disease (CKD), stage III (moderate) Diabetes History of obstructive sleep apnea Hyperlipidemia Hypertension Paraplegia Objective VS/Measurements Vitals Signs (last 24 hrs) Last Charted Minimum Maximum Temp 99.1 (APR 22 06:15) 97.8 (APR 22 02:30) H 100.7 (APR 21 22:00) Mon HR 92 (APR 22 06:15) 90 (APR 22 04:48) 108 (APR 21 22:00) Resp Rate 17 (APR 22 06:15) 17 (APR 22 02:00) 18 (APR 21 19:17) SBP 130 (APR 22 06:15) 106 (APR 21 15:23) H 176 (APR 21:00) DBP H 94 (APR 22 06:15) 67 (APR 21:23) H 96 (APR 21 22:00) MAP 108 (APR 22 06:15) 79 (APR 21:23) 137 (APR 21 22:00) SpO2 94 (APR 22 06:15) 94 (APR 21 22:00) 100 (APR 22 02:30) General: Alert and oriented, No acute distress. Eye: Pupils are equal, round and reactive to light, Normal conjunctiva. HENT: Normocephalic, Normal hearing. Neck: Supple. Respiratory: Respirations are non-labored, Breath sounds are equal. Cardiovascular: Normal rate. Gastrointestinal: Soft, Non-tender. Integumentary: Warm. Neurologic: Alert, Oriented. Psychiatric: Cooperative, Appropriate mood & affect. Results Review APR 22 06:05 142 111 H 23 / L 53 4.4 27 H 1.20 \ APR 22 06:05 \ L 8.3 / 4.9 L 124 / L 26.3 \ APR 22 06:05 142 111 H 23 / L 53 4.4 27 H 1.20 \ APR 22 06:05 \ L 8.3 / 4.9 L 124 / L 26.3 \ Impression and Plan #Severe septic shock [...] 18. Hypertension. Anemia blood transfusion done Disposition: home today on IV abx DW CM time spent 45 min documented in this encounter Plan of Treatment Not on file documented as of this encounter Visit Diagnoses Not on filedocumented in this encounter
--- OUTSIDE RECORDS SUMMARY | 2025-02-21 13:42 | XMS_ITS | Encounter Summary ---
Author Organization [employer] Address [address] [place] [address] Care Team Providers Care Court Worker Name Role Phone Unavailable Primary Care Provider Unavailabl e Encounter Details Date Type Department Care Team (Late st Contact Info) Description 05/05/2022 Transcribed Document [facility] [place] [address] [place] [address] ProviderFlorentino MD [address] [place] [address] Social History Tobacco Use Types Packs/Day Years Used Date Smoking Tobacco: Never Assessed Comments Unknown Sex and Gender Information Value Date Recorded Sex Assigned at Not on file Legal Sex Female 1:44 PM CDT Gender Identity Not on file Sexual Orientation Not on file documented as of this encounter Miscellaneous Notes * Cerner Conversion Note - Florentino Lynne MD - 05/05/2022 8:05 PM CDT Patient: ALYSSA AZUL Age: 62 years Sex: Female : 1960 Associated Diagnoses: None Author: HIGINIO AREVALO MD-INF Antibiotics: Zyvox cefepime and micafungin CC fevers Subjective: Patient with no fevers heart rate stable some elevated blood pressure no acute changes Objective: Vitals Signs (last 24 hrs) Last [...] hip lung and recurrent UTI with sepsis RECOMMENDATIONS/PLANS: Continue cefepime 1 g IV every 12 hours through 05/08/2022 Continue micafungin 100 mg IV daily through 05/08/2022 Zyvox to 600 p.o. twice daily for 05/08/2022 documented in this encounter Plan of Treatment Not on file documented as of this encounter Visit Diagnoses Not on filedocumented in this encounter
--- OUTSIDE RECORDS SUMMARY | 2025-02-21 13:42 | XMS_ITS | Encounter Summary ---
Author Organization [facility] [facility] Address [address] [place], [place] [id number] Care Team Providers Care Supervisor Vendor Quality Name Role Phone Unavailable Primary Care Provider Unavailabl e Encounter Details Date Type Department Care Team (Late st Contact Info) Description 03/01/2022 Transcribed Document [facility] [place] Family Medicine [address] [place] [address] ProviderFlorentino MD [address] [place] [address] Social History Tobacco Use Types Packs/Day Years Used Date Smoking Tobacco: Never Assessed Comments Unknown Sex and Gender Information Value Date Recorded Sex Assigned at Not on file Legal Sex Female 1:44 PM CDT Gender Identity Not on file Sexual Orientation Not on file documented as of this encounter Miscellaneous Notes * Cerner Conversion Note - Historical ProviderMD - 03/01/2022 9:37 AM CDT Consult Phone Call Documentation Entered On: 03/01/2022 10:44 EDT Performed On: 03/01/2022 9:37 [address]T [address] [facility] [facility] Phone Call for Consults Consult Reason : Dr. cesar from palliative care call back and talk with PRIMO Leon, they will come and see patient on thursday Loco Nathan, [facility] Coord - 03/01/2022 10:43 EDT documented in this encounter Plan of Treatment Not on file documented as of this encounter Visit Diagnoses Not on filedocumented in this encounter
--- OUTSIDE RECORDS SUMMARY | 2025-02-21 13:42 | XMS_ITS | Encounter Summary ---
Author Organization [employer] [facility] i[facility] Address [address] [place] [address] Care Team Providers Care Sandfill Operator Name Role Phone Unavailable Primary Care Provider Unavailabl e Encounter Details Date Type Department Care Team (Late st Contact Info) Description 03/01/2022 Transcribed Document [facility] [place] [facility] [place] [address] ProviderFlorentino MD [facility] [place] [address] Social History Tobacco Use Types Packs/Day Years Used Date Smoking Tobacco: Never Assessed Comments Unknown Sex and Gender Information Value Date Recorded Sex Assigned at Not on file Legal Sex Female 1:44 PM CDT Gender Identity Not on file Sexual Orientation Not on file documented as of this encounter Miscellaneous Notes * Cerner Conversion Note - Florentino Lynne MD - 03/01/2022 1:35 PM CDT DATE OF DISCHARGE: 03/01/2022 DISCHARGE DIAGNOSES: 1. Acute respiratory failure status post intubation. 2. Sepsis/septic shock. 3. Pneumonia. 4. Decubitus ulcer. 5. Hypertension. 6. Diabetes mellitus. 7. Acute renal failure. 8. Anemia. 9. Paraplegia. 10. Large stage III decubitus ulcer. 11. History of urostomy. 12. Hydronephrosis. 13. Status post pulseless electrical activity code. DISCHARGE INSTRUCTIONS: The patient intubated on vent, will be transferred to [facility]. HISTORY AND HOSPITAL COURSE: This is a 61-year-old female with history of paraplegia, multiple medical problems. The patient admitted to the hospital with acute respiratory failure 1. Acute respiratory failure. The patient was intubated and extubated. The patient was re-intubated again and re-extubated. The patient is now intubated on vent, will be transferred to intensive care unit at [facility]. The patient with pneumonia, respiratory failure, need to be seen by Pulmonary. 2. Status post cardiac arrest. The patient had cardiac arrest on 02/21/2022, was intubated there. The patient was extubated, but today the patient intubated again after pulses electric activity, CPR done and epinephrine was given. 3. Status post bronchoscopy done on 02/21/2022. 4. Acute renal failure. The patient has been followed by phlebotomy technologist. The patient with volume overload on IV diuretics. 5. Volume overload. The patient on IV diuretics, been monitored by Nephrology. 6. Sepsis/septic shock. The patient was in ICU, on IV antibiotics, seen by Infectious Disease. The patient is now on IV Zosyn and doxycycline. 7. Pneumonia. The patient with pneumonia, on IV antibiotic and intubated on vent. 8. Decubitus ulcer. The patient on empiric antibiotic coverage. 9. Paraplegia. The patient with history of paraplegia, bed-bound. 10. Diabetes mellitus on sliding scale with hemoglobin A1c of 7.3. Patient is critically sick with guarded prognosis. The patient will be transferred to intensive care unit at [facility]. Discussed with house computer systems security administrator who was Dr. Yoder at [facility]. Critical time spent, 65 minutes. /[id number] MD JORDY Shaikh/SANA / JORDY / MODL /[id number] Electronically signed by Sumaya [facility] Conversion Space Operations Officer Cerner at 12/21/2022 5:06 PM CDT documented in this encounter Plan of Treatment Not on file documented as of this encounter Visit Diagnoses Not on filedocumented in this encounter
--- OUTSIDE RECORDS SUMMARY | 2025-02-21 13:42 | XMS_ITS | Encounter Summary ---
Author Organization [employer] [facility] Address [address] [place] [address] Care Team Providers Care Ceo Na Name Role Phone Unavailable Primary Care Provider Unavailabl e Encounter Details Date Type Department Care Team (Late st Contact Info) Description 02/22/2022 Transcribed Document [facility] [place] Family Medicine [place] [address] ProviderFlorentino MD [place] [address] Social History Tobacco Use Types Packs/Day Years Used Date Smoking Tobacco: Never Assessed Comments Unknown Sex and Gender Information Value Date Recorded Sex Assigned at Not on file Legal Sex Female 1:44 PM CDT Gender Identity Not on file Sexual Orientation Not on file documented as of this encounter Miscellaneous Notes * Cerner Conversion Note - Florentino Lynne MD - 02/22/2022 12:05 PM CDT Patient: ALYSSA AZUL Age: 61 Years Sex: Female : 1960 Chief Complaint sedated and on BiPAP Reason for Consultation decubitus ulcer History of Present Illness All history obtained via chart review. The patient is a 61-year-old female paraplegic who presented as a transfer from [facility], where she had been admitted since 02/17. She was admitted to [facility] with fever and chills, was found to have pneumonia and a left hip ulcer. She underwent debridement twice by surgery at [facility], and reportedly had a cardiac vs respiratory arrest postoperatively on the evening of 02/20-02/21. She was intubated and placed on pressors, started on broad-spectrum antibiotics, and underwent imaging that demonstrated no bony erosions of the left femur. She was transferred to our hospital for a higher level of care without pre-transfer surgical consultation. We have now been consulted for wound care recommendations. Today, she has been extubated and is on BiPAP. She is currently sedated. Review of Systems unable to obtain due to sedation Vital Signs T: 37.6 ??C TMIN: 37.2 ??C TMAX: 37.6 ??C HR: 88(Monitored) RR: 32 BP: 117/59 SpO2: 98% HT: 162.56 cm WT: 94.2 kg BMI: 35.6 Oxygen Settings (Last) Oxygen Therapy Mode: BiPAP (02/22/22 11:41:00) Physical Exam General: Sedated and on BiPAP, appears ill Neurologic: Sedated and intubated Eye: No scleral icterus. HENT: Normocephalic, ET tube in place Neck: trachea midline. Lungs: Mechanically ventilated with coarse breath sounds bilaterally Heart: RRR Abdomen: Soft, nondistended, no tympany to percussion, incision clean/dry/intact Musculoskeletal: no gross deformities. Skin: No jaundice. No mottling. Left trochanteric decubitus ulcer status postdebridement to the level of the muscle. Areas of black on the muscle and subcutaneous tissue appear to likely be from cautery and not further necrosis. Wound appears overall clean. No surrounding cellulitis, but surrounding edema. Psychiatric: Unable to assess due to patient's sedation Assessment/Plan The patient is a 61-year-old paraplegic female with a left trochanteric ulcer status post debridement x2 at an outside facility. She was transferred for higher level of care after reported cardiac versus respiratory arrest. She has since been extubated to BiPAP here. Her wound appears clean, with areas of black discoloration on muscle and subcutaneous tissues that is likely from cautery during surgery and not further necrosis. There are no areas that appear to need further debridement. There are no areas of fluctuance or surrounding cellulitis. I would recommend wet-to-dry dressings over the weekend, and evaluation by wound care on Thursday to evaluate for possible wound VAC versus other wound care. For definitive care of her wound as an outpatient, I would recommend an outpatient wound care service and eventual plastic surgery input for evaluation for possible flap coverage. There are no indications for anything surgical at this time, therefore I will sign off. Please call with questions or concerns. Michael Cortez MD General & Bariatric Surgery Provider Information Primary Care Physician - PHY, NOT LISTED Attending Physician - KASI RAVI MD Admitting Physician - KASI RAVI MD Consulting Physician - TORRES MARTINEZ MD-NEP (campos) Consulting Physician - MICHAEL CORTEZ MD-GEN (left lateral hip decub) Consulting Physician - JOHN WOODS MD-PUL Consulting Physician - MONSE KIM MD-INF Referring Physician - JOHN, UNKNOWN Problem List/Past Medical History Paraplegia Remaining medical history unknown Procedure/Surgical History Left hip ulcer debridement x2 at [facility] in the last 5 days Medications Inpatient acetaminophen, 650 mg= 2 Tab, Oral, Q6H, PRN albuterol 2.5 mg/3 mL (0.083%) inhalation solution, 3 mL, Nebulized Inhalation , RT_Q4H, PRN albuterol-ipratropium 2.5 mg-0.5 mg/3 mL inhalation solution, 3 mL, Nebulized Inhalation , RT_QID Chloraseptic Menthol 1.4% topical spray, 1 Prosper, Oral, Q2H, PRN Dextrose 50% injection, 25 Gram= 50 mL, IV Push, Q15Min, PRN Dextrose 50% injection, 25 Gram= 50 mL, IV Push, Q15Min, PRN Dextrose 50% injection, 25 Gram= 50 mL, IV Push, Q15Min, PRN Dextrose 50% injection, 12.5 Gram= 25 mL, IV Push, Q15Min, PRN fentaNYL, 25 mcg= 0.5 mL, IV Push, Q4H While Awake, PRN glucagon, 1 mg= 1 mL, IntraMuscular, Q15Min, PRN glucose 4 g oral tablet, chewable, 16 Gram= 4 Tab, Chew, Q15Min, PRN glucose 40% oral gel, 15 Gram= 37.5 mL, Oral, Q15Min, PRN heparin, 5000 Units= 1 mL, SubCutaneous, Q8HInt insulin lispro sliding scale, Scale A:, SubCutaneous, AC and at Bedtime Mucinex, 1200 mg= 2 Tab, Oral, BID ondansetron, 4 mg= 2 mL, IV Push, Q6H, PRN pantoprazole, 40 mg, IV Push, Daily sodium bicarbonate injection 100 mEq + Dextrose 5% in Water intravenous solution 1,000 mL traMADol, 50 mg= 1 Tab, Oral, Q6H, PRN vancomycin, 1 Each, IV Piggyback, Weekly Zosyn + Sodium Chloride 0.9% intravenous solution 50 mL Home alendronate weekly, 70 mg, Oral, Weekly bisoprolol 5 mg oral tablet, 5 mg= 1 Tab, Oral, Daily dapagliflozin 10 mg oral tablet, 10 mg= 1 Tab, Oral, Daily ferrous sulfate 325 mg (65 mg elemental iron) oral tablet, 325 mg= 1 Tab, Oral, BID furosemide 40 mg oral tablet, 40 mg= 1 Tab, Oral, Daily lisinopril 40 mg oral tablet, 40 mg= 1 Tab, Oral, Daily metFORMIN 1000 mg oral tablet, 1000 mg= 1 Tab, Oral, BID With Meals Jenera-3 1000 mg oral capsule, 1000 mg= 1 Cap, Oral, QID pravastatin 40 mg oral tablet, 40 mg= 1 Tab, Oral, Daily Allergies No Known Allergies Social History Unknown Family History Unknown Diagnostic Results Radiology Results (Last 48 hours) [id number] -- 02/22/2022 00:01 CR Chest 1 Vw [...] reviewed, interpreted, and dictated by Dr. Jaycob Kostelic.Transcribed by Quincy Sanchez PA-C.I have personally viewed, interpreted and dictated the examination. Ihave read and agree with the above final transcribed report. Lab Results Test Name Test Result Date/Time pH Art 7.16 (Critical) 02/22/2022 09:29 EDT pH Art 7.21 (Critical) 02/22/2022 00:16 EDT pCO2 Art 29.8 mmHg (Low) 02/22/2022 09:29 EDT pCO2 Art 31.2 mmHg (Low) 02/22/2022 00:16 EDT pO2 Art 82.3 mmHg 02/22/2022 09:29 EDT pO2 Art 74.4 mmHg (Low) 02/22/2022 00:16 EDT HCO3 Art 10.1 mmol/L (Low) 02/22/2022 09:29 EDT HCO3 Art 12.0 mmol/L (Low) 02/22/2022 00:16 EDT BE Art -17.1 mmol/L (Low) 02/22/2022 09:29 EDT BE Art -14.4 mmol/L (Low) 02/22/2022 00:16 EDT sO2 Art 94.3 % (Low) 02/22/2022 09:29 EDT sO2 Art 93.7 % (Low) 02/22/2022 00:16 EDT tHb Art 8.4 Gram/dL (Low) 02/22/2022 09:29 EDT tHb Art 8.8 Gram/dL (Low) 02/22/2022 00:16 EDT ctO2 11.0 mmol/L 02/22/2022 09:29 EDT ctO2 11.5 mmol/L 02/22/2022 00:16 EDT FIO2 Art 35.0 02/22/2022 09:29 EDT FIO2 Art 40.0 02/22/2022 00:16 EDT Delivery Device Type Art Ventilator 02/22/2022 09:29 EDT Delivery Device Type Art Ventilator 02/22/2022 00:16 EDT Temperature, F Art 98.6 Deg F 02/22/2022 09:29 EDT Temperature, F Art 98.6 Deg F 02/22/2022 00:16 EDT Art Blood Gas (ABG) Site Right Radial 02/22/2022 09:29 EDT Art Blood Gas (ABG) Site Right Radial 02/22/2022 00:16 EDT Acceptable Huang's Test Art Acceptable 02/22/2022 09:29 EDT Acceptable Huang's Test Art Acceptable 02/22/2022 00:16 EDT Ventilator Mode Art Assist Control Ventilation 02/22/2022 09:29 EDT Ventilator Mode Art Assist Control Ventilation 02/22/2022 00:16 EDT Tidal Volume Set Art 400.0 mL 02/22/2022 09:29 EDT Tidal Volume Set Art 400.0 mL 02/22/2022 00:16 EDT Set Rate Art 18 02/22/2022 09:29 EDT Set Rate Art 18 02/22/2022 00:16 EDT Respiratory Rate Art 21.0 02/22/2022 09:29 EDT Respiratory Rate Art 22.0 02/22/2022 00:16 EDT CPAP/PEEP Art 5.0 cmH2O 02/22/2022 09:29 EDT CPAP/PEEP Art 5.0 cmH2O 02/22/2022 00:16 EDT ABG Num of Draw Attempts 1 02/22/2022 09:29 EDT ABG Num of Draw Attempts 1 02/22/2022 00:16 EDT PaO2/FiO2 calculated 235 02/22/2022 09:29 EDT PaO2/FiO2 calculated 186 02/22/2022 00:16 EDT Sodium Level 146 mmol/L 02/22/2022 04:00 EDT Potassium Level 4.4 mmol/L 02/22/2022 04:00 EDT Chloride Level 120 mmol/L (High) 02/22/2022 04:00 EDT Carbon Dioxide Level 12 mmol/L (Low) 02/22/2022 04:00 EDT Anion Gap 18 02/22/2022 04:00 EDT Glucose Level 229 mg/dL (High) 02/22/2022 04:00 EDT Blood Urea Nitrogen 50 mg/dL (High) 02/22/2022 04:00 EDT Creatinine Level 2.83 mg/dL (High) 02/22/2022 04:00 EDT eGFR 21 mL/min/1.73m2 (Low) 02/22/2022 04:00 EDT eGFR NonAfrican 17 mL/min/1.73m2 (Low) 02/22/2022 04:00 EDT Bun/Creatinine 17.7 02/22/2022 04:00 EDT Calcium Level 6.8 mg/dL (Low) 02/22/2022 04:00 EDT Magnesium Level 2.2 mg/dL 02/22/2022 08:21 EDT Phosphorus 3.9 mg/dL 02/22/2022 08:21 EDT Glucose POC2 314 mg/dL (High) 02/22/2022 11:14 EDT Glucose POC2 228 mg/dL (High) 02/22/2022 06:05 EDT Lactic Acid Level 0.7 mmol/L 02/22/2022 08:21 EDT Calcium Ionized 0.97 mmol/L (Low) 02/22/2022 08:21 EDT Creatinine Urine Random 64 mg/dL 02/21/2022 22:12 EDT Sodium Ur Ray 45 mMole/Liter 02/21/2022 22:12 EDT Urea Nitrogen Urine Random 297 mg/dL 02/21/2022 22:12 EDT WBC 8.9 K/uL 02/22/2022 04:00 EDT RBC 2.54 Million/uL (Low) 02/22/2022 04:00 EDT Hgb 8.1 Gram/dL (Low) 02/22/2022 08:21 EDT Hgb 7.1 Gram/dL (Low) 02/22/2022 04:00 EDT Hct 26.0 % (Low) 02/22/2022 08:21 EDT Hct 22.9 % (Low) 02/22/2022 04:00 EDT MCV 90.2 fL 02/22/2022 04:00 EDT MCH 28.0 pg 02/22/2022 04:00 EDT MCHC 31.0 Gram/dL (Low) 02/22/2022 04:00 EDT Platelet Count 218 K/uL 02/22/2022 04:00 EDT MPV 9.9 fL 02/22/2022 04:00 EDT RDW 14.5 % (High) 02/22/2022 04:00 EDT Neutrophil Percent Man 84 % (High) 02/22/2022 04:00 EDT Band Percent Man 2 % (Low) 02/22/2022 04:00 EDT ANC # 8 K/uL 02/22/2022 04:00 EDT Lymph Percent Man 8 % (Low) 02/22/2022 04:00 EDT ALYC # 1 K/uL 02/22/2022 04:00 EDT Hale Percent Man 1 % (Low) 02/22/2022 04:00 EDT Welches Percent Man 3 % (High) 02/22/2022 04:00 EDT Myelo Percent Man 2 % (High) 02/22/2022 04:00 EDT nRBC 0 (Low) 02/22/2022 04:00 EDT RBC Morphology Normal 02/22/2022 04:[address] Estimate Adequate 02/22/2022 04:00 EDT Slide Review Add Diff 02/22/2022 04:00 EDT Urine Type. U Cath 02/21/2022 22:12 EDT Urine Color Light-Yellow 02/21/2022 22:12 EDT Urine Appearance Clear 02/21/2022 22:12 EDT Urine Specific [place] 1.014 02/21/2022 22:12 EDT Urine pH Dipstick 6.0 02/21/2022 22:12 EDT Urine Leukocyte Esterase NEGATIVE2 02/21/2022 22:12 EDT Urine Nitrite NEGATIVE2 02/21/2022 22:12 EDT Urine Protein Dipstick 2+ (Abnormal) 02/21/2022 22:12 EDT Urine Glucose Dipstick 3+ (Abnormal) 02/21/2022 22:12 EDT Urine Ketones Dipstick NEGATIVE2 02/21/2022 22:12 EDT Urine Urobilinogen Dipstick Normal2 02/21/2022 22:12 EDT Urine Bilirubin Dipstick NEGATIVE2 02/21/2022 22:12 EDT Urine Blood Dipstick 1+ (Abnormal) 02/21/2022 22:12 EDT Ur RBC 3-5 (Abnormal) 02/21/2022 22:12 EDT Ur WBC 3-5 (Abnormal) 02/21/2022 22:12 EDT Ur Bacteria 1+ (Abnormal) 02/21/2022 22:12 EDT Ur Mucous 1+ (Abnormal) 02/21/2022 22:12 EDT Ur Squamous Epithelial Cells NONE 02/21/2022 22:12 EDT Ur Yeast, Budding 3+ (Abnormal) 02/21/2022 22:12 EDT Urine Culture if Indicated Not Indicated 02/21/2022 22:12 EDT Vancomycin Peak >50.0 mcg/mL (Critical) 02/22/2022 06:00 EDT ABO/Rh A NEG 02/22/2022 08:21 EDT ABO/Rh Repeat A NEG 02/22/2022 04:00 EDT Antibody Screen (Tube) Negative ABSC 02/22/2022 08:21 EDT documented in this encounter Plan of Treatment Not on file documented as of this encounter Visit Diagnoses Not on filedocumented in this encounter
--- OUTSIDE RECORDS SUMMARY | 2025-02-21 13:42 | XMS_ITS | Encounter Summary ---
Author Organization [employer] Address [address] [place] [id number] Care Team Providers Care Fitness And Wellness Coordinator Name Role Phone Unavailable Primary Care Provider Unavailabl e Encounter Details Date Type Department Care Team (Late st Contact Info) Description 05/07/2022 Transcribed Document [facility] [place] Family Medicine [address] [place] [address] ProviderFlorentino MD [address] [place] [address] Social History Tobacco Use Types Packs/Day Years Used Date Smoking Tobacco: Never Assessed Comments Unknown Sex and Gender Information Value Date Recorded Sex Assigned at Not on file Legal Sex Female 1:44 PM CDT Gender Identity Not on file Sexual Orientation Not on file documented as of this encounter Miscellaneous Notes * Cerner Conversion Note - Historical ProviderMD - 05/07/2022 2:00 AM CDT 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
--- OUTSIDE RECORDS SUMMARY | 2025-02-21 13:42 | XMS_ITS | Encounter Summary ---
Author Organization [email or web address] Address [address] [place] [address] Care Team Providers Care Coat Joiner Name Role Phone Unavailable Primary Care Provider Unavailabl e Encounter Details Date Type Department Care Team (Late st Contact Info) Description 02/22/2022 Transcribed Document [facility] [place] Family Medicine [address] [place] [address] ProviderFlorentino MD [address] [place] [address] Social History Tobacco Use Types Packs/Day Years Used Date Smoking Tobacco: Never Assessed Comments Unknown Sex and Gender Information Value Date Recorded Sex Assigned at Not on file Legal Sex Female 1:44 PM CDT Gender Identity Not on file Sexual Orientation Not on file documented as of this encounter Miscellaneous Notes * Cerner Conversion Note - Florentino Lynne MD - 02/22/2022 6:34 PM CDT Admission History, Adult Entered On: 02/22/2022 6:01 EDT Performed On: 02/22/2022 18:34 EDT by Bridgette Ribera RN-PATIENT CARE BEDSIDE NON-EXEMP Advance Directive Patient has Advance Directive *Q : Unable to obtain Maritza Elena RN - 02/22/2022 18:26 EDT Anesthesia/Transfusion History Family History of Anesthesia Reaction : Unknown Transfusion History : Unknown Family History of Anesthesia Reaction : Unknown Maritza Elena RN - 02/22/2022 18:26 EDT Anticipated Discharge Needs Discharge To, Anticipated : Rehabilitation unit/facility Anticipated Discharge Needs at This Time : ADLs, Diabetic education, Equipment, Nursing, Occupational therapy, Physical Therapy, Bullard Operator, Transportation, Wound/Ostomy care Maritza Elena RN - 02/22/2022 18:26 EDT Functional Assessment Living Situation : Home Patient Lives With : Alone Persons Assisting Patient at Home : Child/Children Current Daily Living Assistance : ADLs, Transportation Mobility Assistance Prior to Admission : Use of assistive devices Current Home Treatments : CPAP Home Equipment : CPAP unit, Wheelchair Maritza Elena RN - 02/22/2022 18:26 EDT General Info Unable to Assess Patient History : Patient intubated Arrived From : Other: [facility] Mode of Arrival on Unit : Bed Legal Guardian : Son, Other: daughter in law Primary Language : Mosotho Communication Barrier : None 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 Needed : No Maritza Elena RN - 02/22/2022 18:26 EDT Contact Password : [id number] Want Family/Rep/Phys Notified of Admit : No Emergency Contact #1 : FREDO Azul Emergency Contact #1 Emergency Contact #1 Relationship : son Emergency Contact #2 : Divine Jorge Alberto Emergency Contact #2 Emergency Contact #2 Relationship : [id number] Bridgette Ribera, RN-PATIENT CARE BEDSIDE NON-EXEMP - 02/22/2022 6:00 EDT Fall Risk Scales ABCs Fall Injury Risk Identification : Bones, Coagulation ABC Fall Injury Risk : Moderate to high injury risk Injury Moderate to High Risk Interventions : Bed alarm on, Specialty low bed ALANIZ Hx Falls Immediate/Within 3 Months : No Alaniz Secondary Diagnosis : Yes ALANIZ Use of Ambulatory Aid : Bed rest/Nurse assist ALANIZ IV Therapy or IV Access : Yes Alaniz Gait/Transferring : Impaired Alaniz Mental Status : Overestimates/Forgets limitations Alaniz Fall Risk Score : 70 ALANIZ Fall Scale Risk Level : 46 or > High Risk Ivor Fall Interventions : Adequate lighting, Assistive devices [...] to High Risk Interventions : Bed alarm on, Patient room close to nurses station Barriers to Learning : Acuity of Illness Fall Risk Scale Calc Temp : 0 Maritza Elena RN - 02/22/2022 18:26 EDT Health Histories Smoking Status : Never (less than 100 in lifetime; none in last 30 days) Smokeless Tobacco Status : Never Maritza Elena RN - 02/22/2022 18:26 EDT Social History (As Of: 02/22/2022 18:34:34 EDT) Height and Weight, Clinical Dosing Height Source : Estimated Height Entry Format : [place] Height, Feet : 5 ft(Converted to: 152 [...] Body Mass Index : 35.6 kg/m2 ([place]) [place] Body Weight : 54 kg Maritza Elena RN - 02/22/2022 18:26 EDT Infectious Disease History Does patient have symptoms of COVID-19? : No Tested for COVID19 in the past 14 days : Yes, Patient stated results Negative Does the Patient state known exposure to a COVID-19 positive case in the last 14 days? : No Patient Vaccinated for COVID-19 : Unable to obtain Maritza Elena RN - 02/22/2022 18:26 EDT Infectious Disease Risk Screening Grid Cough [...] episode per day) : Unable to obtain Maritza Elena RN - 02/22/2022 18:26 EDT Physical contact outside [place] in the last 30 days : No Hospitalized in Foreign Country : No Infectious Disease History : Unable to assess INF Disease TB Screening Calc : 1 INF Disease Recent Travel Calc : 0 Maritza Elena RN - 02/22/2022 18:26 EDT Influenza Vaccine Asmt, Adult Previous Vaccines from Immunization Schedule : No qualifying data available. Influenza Immunization, Current Season : Outside of influenza season Maritza Elena RN - 02/22/2022 18:26 EDT Pneumococcal Vaccine Previous Vaccines from Immunization Schedule : No qualifying data available. Pneumonia Immunization Received : Unknown Pneumococcal Risk Assessment < Age 65 : Diabetes Pneumococcal Vaccine Contraindications : No contraindications to pneumococcal vaccine Transplant Workup/Recent Transplant : No Order for Pneumococcal Vaccine : Order for pneumococcal vaccine sent to pharmacy Maritza Elena RN - 02/22/2022 18:26 EDT Order Details Transport Mode Order Detail : Bed (including specialty) IV Order Detail : 1 Oxygen Order Detail : 1 Nurse Collect Order Detail : 1 Lift/Transfer : Maximal assist Central Line Order Detail : No Room Service : Appropriate Arterial Line : No Patient Needs Meds Crushed/Liquid : No Maritza Elena RN - 02/22/2022 18:26 EDT Nutrition History Eating Poorly Due to Decreased Appetite : No Unplanned Weight Loss in Past 3-6 Months : No Malnutrition Screening Tool Total(mal) : 0 Malnutrition Screening Tool Risk Level : Patient not at risk Maritza Elena RN - 02/22/2022 18:26 EDT [place] Suicide Severity Rating Scale (C-SSRS) CSSRS Past Month Wish to be : Unable to obtain CSSRS Past Month Suicidal Thoughts : Unable to obtain CSSRS Lifetime Suicide Behavior : Unable to obtain Suicide Severity Rating Score : -105 Suicide Severity Rating : Reassessment required Maritza Elena RN - 02/22/2022 18:26 EDT Psychosocial History Currently in Unsafe Situation : No Maritza Elena RN - 02/22/2022 18:26 EDT Sleep Apnea Risk Assmt BiPAP/CPAP Ordered for Home Use : Yes Hx of Obstructive Sleep Apnea Diagnosis : Yes BiPAP/CPAP Used at Home : Yes Age over 50 Years Old : Yes Gender Male : No Maritza Elena RN - 02/22/2022 18:26 EDT Valuables and Belongings Valuables and Belongings : Clothing Clothing : Common streetwear Clothing Disposition : Bedside Maritza Elena RN - 02/22/2022 18:26 EDT documented in this encounter Plan of Treatment Not on file documented as of this encounter Visit Diagnoses Not on filedocumented in this encounter
--- OUTSIDE RECORDS SUMMARY | 2025-02-21 13:42 | XMS_ITS | Encounter Summary ---
Author Organization [employer] Address [address] [place] [address] Care Team Providers Care Supervisor Travel Information Center Name Role Phone Unavailable Primary Care Provider Unavailabl e Encounter Details Date Type Department Care Team (Late st Contact Info) Description 02/22/2022 Transcribed Document [facility] [place] Family Medicine [address] [place] [address] ProviderFlorentino MD [address] [place] [address] Social History Tobacco Use Types Packs/Day Years Used Date Smoking Tobacco: Never Assessed Comments Unknown Sex and Gender Information Value Date Recorded Sex Assigned at Not on file Legal Sex Female 1:44 PM CDT Gender Identity Not on file Sexual Orientation Not on file documented as of this encounter Miscellaneous Notes * Cerner Conversion Note - Historical ProviderMD - 02/22/2022 5:12 AM CDT Event Note Entered On: 02/22/2022 5:13 EDT Performed On: 02/22/2022 5:12 EDT by Robinson Cortez Rn Flex II Event Note Event Date/Time : 02/22/2022 0:00 EDT Event Location : Assigned room Event Details : Nursing assessment additional narrative Description of Event : Skin assessment completed with primary RN. Picutes taken. Agree with primary RNs skin assessment. Robinson Cortez Rn Flex II - 02/22/2022 5:12 EDT documented in this encounter Plan of Treatment Not on file documented as of this encounter Visit Diagnoses Not on filedocumented in this encounter
--- OUTSIDE RECORDS SUMMARY | 2025-02-21 13:42 | XMS_ITS | Encounter Summary ---
Author Organization [employer] Address [address] [place] [address] Care Team Providers Care Cytotechnologist Name Role Phone Unavailable Primary Care Provider Unavailabl e Encounter Details Date Type Department Care Team (Late st Contact Info) Description 04/21/2022 Transcribed Document [facility] [place] Family Medicine [facility] [address] ProviderFlorentino MD [address] [place] [address] Social History Tobacco Use Types Packs/Day Years Used Date Smoking Tobacco: Never Assessed Comments Unknown Sex and Gender Information Value Date Recorded Sex Assigned at Not on file Legal Sex Female 1:44 PM CDT Gender Identity Not on file Sexual Orientation Not on file documented as of this encounter Miscellaneous Notes * Cerner Conversion Note - Florentino ProviderMD - 04/21/2022 3:00 AM CDT Nutrition Assessment Entered On: 04/21/2022 13:30 EDT Performed On: 04/21/2022 13:30 EDT by Sujatha Villanueva Dietitian Nutrition Assessment Nutrition Assessment Reason : Follow Up Sujatha Villanueva Dietitian - 04/21/2022 13:30 EDT Current Nutrition Regimen Comment : 04/21: High f/u. Pt remains on IV abx until 04/29 and is pending discharge plans. She continues on a 60g CHO, cardiac, dialysis diet with ONS and has consumed 100% of meals x 2. 04/15: TF f/u. Pt passed FEES and is on a 60 gram, cardiac diet. Spoke with pt; reports eating ~50% of meals. Pt says she likes Glucerna (straw/vijay). Pt to D/C to SNF vs home with family. Dx: acute respiratory failure, severe sepsis, MSOF, JAVIER, acute pancreatitis, acute encephalopathy PMH: CKD3, DM, paraplegia, HTN, L-hip wound, previous trach/PEG (2009), cardiac arrest x2 Labs: Cr 1.3, GFR 42, FSB/131/156 Meds: docusate, iron, lantus, SSI, probiotic, PPI, abx Diet: 60g CHO, cardiac, dialysis + Glucerna TID Intake: 100% x 2 meals GI: +BS, LBM 04/21 Skin: NPWT to L-trochanter, MASD to coccyx Ht: 5'4 (per chart hx- varying hts on admit) Wt: 180#/81.8kg (04/08), no new wt (04/11), 89.9 kg (04/15), 82kg (04/18) BMI: 27.4 IBW: 120#, 150% Est nutrient needs: 8752-8982 kcals (22-25 kcal/kg), 125+g pro (1.5 g/kg) *on CRRT, wounds Sujatha Villanueva Dietitian - 04/21/2022 15:32 EDT Nutrition Diagnoses Oral or Nutrition Support Intake : Inadequate oral intake Oral or Nutr Support Intake Related To : clinical conditoin Oral or Nutr Support Intake Evidenced by : ~50% meals Oral or Nutrition Support Intake Status : Resolved Nutrient Intake : Increased nutrient needs Nutrient Intake Related to : wound healing Nutrient Intake As Evidenced by : NPWT to L-trochanter, MASD to coccyx Nutrient Intake Status : Active Increased Nutrient Needs Comment : protein Sujatha Villanueva Dietitian - 04/21/2022 15:32 EDT Nutrition Interventions Meals and Snacks : Carbohydrate-modified diet, Fat-modified diet, Sodium modified diet Nutrition Supplement Therapy : Commercial beverage Sujatha Villanueva Dietitian - 04/21/2022 15:32 EDT Monitoring/Evaluation Food Intake : Amount of food Weight Status : Weight Maintanence Gastrointestinal Function : Bowel Function Integumentary : Pressure Ulcer Status Sujatha Villanueva Dietitian - 04/21/2022 15:32 EDT Nutrition Recommendations Dietitian Recommendations : 1. Continue cardiac diet + vijay/straw Glucerna TID. Will liberalize 60g CHO and renal restrictions. Goal: >50% meals + ONS for wound healing 2. Monitor [id number] weekly Goal: prevent unintentional wt changes 3. Monitor glucose level and adjust insulin PRN. Consider resuming 60g CHO restriction if glucose is elevated. Goal: Glu 70-180 Low nutrition risk Sujatha Villanueva, Dietitian - 04/21/2022 15:32 EDT Electronically signed by Bruce Shell Conversion Creasing And Cutting Press Feeder Cerner at 12/21/2022 5:05 PM CDT documented in this encounter Plan of Treatment Not on file documented as of this encounter Visit Diagnoses Not on filedocumented in this encounter
--- OUTSIDE RECORDS SUMMARY | 2025-02-21 13:42 | XMS_ITS | Encounter Summary ---
Author Organization [employer] Address [address] [place] [id number] Care Team Providers Care Corporate Specialist Name Role Phone Unavailable Primary Care Provider Unavailabl e Encounter Details Date Type Department Care Team (Late st Contact Info) Description 04/21/2022 Transcribed Document [facility] [place] Family Medicine [address] [place] [address] ProviderFlorentino MD [address] [place] [address] Social History Tobacco Use Types Packs/Day Years Used Date Smoking Tobacco: Never Assessed Comments Unknown Sex and Gender Information Value Date Recorded Sex Assigned at Not on file Legal Sex Female 1:44 PM CDT Gender Identity Not on file Sexual Orientation Not on file documented as of this encounter Miscellaneous Notes * Cerner Conversion Note - Florentino ProviderMD - 04/21/2022 5:00 AM CDT Chart Check - Review Order Profile Entered On: 04/21/2022 6:35 EDT Performed On: 04/21/2022 5:00 EDT by Dulce Dallas RN Chart Check Powerplans Initiated/Discontinued as Appropriate : Yes All Active Orders Reviewed : Yes Dulce Dallas RN - 04/21/2022 6:35 EDT documented in this encounter Plan of Treatment Not on file documented as of this encounter Visit Diagnoses Not on filedocumented in this encounter
--- OUTSIDE RECORDS SUMMARY | 2025-02-21 13:42 | XMS_ITS | Encounter Summary ---
Author Organization [employer] Address [address] [place] [address] Care Team Providers Care Railroad Crane Operator Name Role Phone Unavailable Primary Care Provider Unavailabl e Encounter Details Date Type Department Care Team (Late st Contact Info) Description 05/05/2022 Transcribed Document [facility] [place] Family Medicine [facility] [place] [address] ProviderFlorentino MD [facility] [place] [address] Social History Tobacco Use Types Packs/Day Years Used Date Smoking Tobacco: Never Assessed Comments Unknown Sex and Gender Information Value Date Recorded Sex Assigned at Not on file Legal Sex Female 1:44 PM CDT Gender Identity Not on file Sexual Orientation Not on file documented as of this encounter Miscellaneous Notes * Cerner Conversion Note - Florentino Lynne MD - 05/05/2022 3:40 PM CDT Nutrition Assessment Entered On: 05/05/2022 15:41 EDT Performed On: 05/05/2022 16:00 EDT by CAROLINA BUTLER RD, JOHN Nutrition Assessment Nutrition Assessment Reason : Follow Up CAROLINA BUTLER RD, JOHN - 05/05/2022 15:41 EDT Current Nutrition Regimen Comment : (05/05) Moderate f/u. Pt is eating well 100% meals and receiving supplements for wound healing. Pt to receive groshong tomorrow. Possible D/C to [facility]. Pt likes straw/vijay Glucerna. (05/02/22) Consult received for pressure ulcer. Pt admitted with c/o hypotension, elevated glucose, and wound to L buttock with wound vac. Pt previously at [facility] and was eating well. Dx: Sepsis, hypotension, UTI, decubitus ulcer, A/C KD, worsening anemia PMH: HTN, paraplegia, L buttock wound with vac, DM, CKDIII, DUSTY, previous trach/PEG 2009, cardiac arrest X 2 Labs: Glu 185, BUn 51, Crea 1.4 (04/28) Alb 2.7, FSB, 171, 177 Meds: Vit C, ppi, fe, ssi, heparin, kylie-q, omega 3-FA, abx Skin: Stg IV L trochanter, DTI B heels, DTI R great toe LBM: + (05/05) Diet: cardiac + Glucerna BID and Prasanth BID PO Intake: 100% X 2 meals Ht: 5'6 Admit wt: 177.9#, no new wt (05/05) IBW: 130#/137% IBW BMI: 28.[address], JOHN - 05/05/2022 15:58 EDT Nutrition Diagnoses Nutrient Intake : Increased nutrient needs Nutrient Intake Related to : skin integrity Nutrient Intake As Evidenced by : Stg IV L trochanter, DTI B heels, DTI R great toe Nutrient Intake Status : Active Increased Nutrient Needs Comment : protein CAROLINA BUTLER RD, JOHN - 05/05/2022 15:58 EDT Nutrition Interventions Meals and Snacks : Carbohydrate-modified diet, Fat-modified diet, Sodium modified diet Nutrition Supplement Therapy : Commercial beverage CAROLINA BUTLER RD, JOHN - 05/05/2022 16:00 EDT Monitoring/Evaluation Energy Intake : Total energy intake Food Intake : Amount of food Protein Intake : Total protein Weight Status : Weight Maintanence Gastrointestinal Function : Bowel Function Integumentary : Pressure Ulcer Status CAROLINA BUTLER RD, JOHN - 05/05/2022 16:00 EDT Nutrition Recommendations Dietitian Recommendations : 1. Add [address] to diet[address] RD to continue Glucerna BID and Prasanth BID. Goal: >50% meals + ONS for wound healing 2. Monitor wt X 1 weekly Goal: avoid significant unintended wt loss Nutrition risk: moderate CAROLINA BUTLER RD, JOHN - 05/05/2022 15:58 EDT documented in this encounter Plan of Treatment Not on file documented as of this encounter Visit Diagnoses Not on filedocumented in this encounter
--- OUTSIDE RECORDS SUMMARY | 2025-02-21 13:42 | XMS_ITS | Encounter Summary ---
Author Organization [employer] Address [address] [place] [address] Care Team Providers Care Private Security Guard Name Role Phone Unavailable Primary Care Provider Unavailabl e Encounter Details Date Type Department Care Team (Late st Contact Info) Description 03/01/2022 Transcribed Document [facility] [place] [facility] [place] [address] ProviderFlorentino MD [address] [place] [address] Social History Tobacco Use Types Packs/Day Years Used Date Smoking Tobacco: Never Assessed Comments Unknown Sex and Gender Information Value Date Recorded Sex Assigned at Not on file Legal Sex Female 1:44 PM CDT Gender Identity Not on file Sexual Orientation Not on file documented as of this encounter Miscellaneous Notes * Cerner Conversion Note - Florentino Lynne MD - 03/01/2022 7:11 PM CDT RX Interventions Entered On: 03/01/2022 19:15 EDT Performed On: 03/01/2022 19:11 EDT by Mariam Bonilla Resident Pharmacist Clinical Interventions Dose Adjustment by Pharmacy : Yes Mariam Bonilla Resident Pharmacist - 03/01/2022 19:11 EDT Dose Adjustment by Pharmacy Dose Adjustment by Pharmacy, Order : PTD zosyn. PT did not recieve zosyn at [facility], will load with 4.5gm x1 and schedule 2.25gm q8h. CrCl 25 mL/min/m2, CrCl 18 mL/min using IBW. Anticipate renal function may decline post cardiac arrest. Will continue to monitor for dose adjustments. Dose Adjustment by Pharmacy, Value : 112 Dollar Dose Adjustment by Pharmacy, Time : 15 Minute(s) Mariam Bonilla Resident Pharmacist - 03/01/2022 19:11 EDT Electronically signed by [facility] Crystal Machining Coordinator Cerner at 12/21/2022 5:11 PM CDT documented in this encounter Plan of Treatment Not on file documented as of this encounter Visit Diagnoses Not on filedocumented in this encounter
--- OUTSIDE RECORDS SUMMARY | 2025-02-21 13:42 | XMS_ITS | Encounter Summary ---
Author Organization [employer] Address [address] [place] [address] Care Team Providers Care Assembler 1St Shift Name Role Phone Unavailable Primary Care Provider Unavailabl e Encounter Details Date Type Department Care Team (Late st Contact Info) Description 03/01/2022 Transcribed Document [facility] [place] Family Medicine [address] [place] [address] ProviderFlorentino MD [address] [place] [address] Social History Tobacco Use Types Packs/Day Years Used Date Smoking Tobacco: Never Assessed Comments Unknown Sex and Gender Information Value Date Recorded Sex Assigned at Not on file Legal Sex Female 1:44 PM CDT Gender Identity Not on file Sexual Orientation Not on file documented as of this encounter Miscellaneous Notes * Cerner Conversion Note - Florentino ProviderMD - 03/01/2022 6:32 PM CDT Consult Phone Call Documentation Entered On: 03/01/2022 23:51 EDT Performed On: 03/01/2022 18:32 EDT by TRINIDAD LANDIS, RN Phone Call for Consults Consult Phone Call/Page Attempt : First call Date and Time Call Returned : 03/01/2022 21:40 EDT Physician Returning Call : PEÑA WINCHESTER MD-INF TRINIDAD LANDIS, RN - 03/01/2022 23:50 EDT documented in this encounter Plan of Treatment Not on file documented as of this encounter Visit Diagnoses Not on filedocumented in this encounter
--- OUTSIDE RECORDS SUMMARY | 2025-02-21 13:42 | XMS_ITS | Encounter Summary ---
Author Organization [employer] Address [address] [place] [address] Care Team Providers Care Master Steam Yacht Name Role Phone Unavailable Primary Care Provider Unavailabl e Encounter Details Date Type Department Care Team (Late st Contact Info) Description 03/01/2022 Transcribed Document [facility] [place] Family Medicine [facility] [place] [address] ProviderFlorentino MD [address] [place] [address] Social History Tobacco Use Types Packs/Day Years Used Date Smoking Tobacco: Never Assessed Comments Unknown Sex and Gender Information Value Date Recorded Sex Assigned at Not on file Legal Sex Female 1:44 PM CDT Gender Identity Not on file Sexual Orientation Not on file documented as of this encounter Miscellaneous Notes * Cerner Conversion Note - Florentino Lynne MD - 03/01/2022 2:05 PM CDT Patient: ALYSSA AZUL Age: 61 Years Sex: Female : 1960 Admit Date 02/22/2022 00:01 Discharge Date No Discharge Date on Record Primary Care Provider JOHN NOT LISTED Discharge Diagnosis 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 02/22/2022 L97.123 ICD-10-CM Community acquired pneumonia of left lung 02/22/2022 J18.9 ICD-10-CM Septic shock 02/22/2022 R65.21 ICD-10-CM Cardiac arrest 02/22/2022 I46.9 ICD-10-CM Acute kidney injury 02/22/2022 N17.9 ICD-10-CM 1. Acute respiratory failure status post intubation. 2. Sepsis/septic shock. 3. Pneumonia. 4. Decubitus ulcer. 5. Hypertension. 6. Diabetes mellitus. 7. Acute renal failure. 8. Anemia. 9. Paraplegia. 10. Large stage III decubitus ulcer. 11. History of urostomy. 12. Hydronephrosis. 13. Status post pulseless electrical activity code. Hospital Course Summary [facility] stay: patient admitted to [facility] on 02/17/22, temp in ER of [...] necrosis. no pathology sent. Patient transferred to [facility] at midnight on 02/22. 02/22: extubated, given [...] family at bedside. on optiflow IV Zosyn This is a 61-year-old female with history of paraplegia, multiple medical problems. The patient admitted to the hospital with acute respiratory failure 1. Acute respiratory failure. The patient was intubated and extubated. The patient was re-intubated again and re-extubated. The patient is now intubated on vent, will be transferred to intensive care unit at [facility]. The patient with pneumonia, respiratory failure, need [...] failure. The patient has been followed by body team member. The patient with volume overload on IV [...] be transferred to intensive care unit at [facility]. Discussed with house citrix administrator who was Dr. Yoder at [facility]. Vital Signs T: 36.4 ??C TMIN: 36.2 ??C TMAX: 36.6 ??C HR: 103(Monitored) RR: 19 BP: 143/87 SpO2: 94% Oxygen Settings (Last) Oxygen Therapy Mode: BiPAP (03/01/22 12:19:00) Oxygen Flow Rate: 3 Liter/Min (03/01/22 08:39:00) Discharge Disposition Acute care facility Discharge Follow Up No Follow Up Appointments on Record Discharge Medications (5) Active bisoprolol 5 mg oral tablet 5 mg = 1 Tab, Oral, Daily bumetanide 0.25 mg/mL injectable solution 1 mg = 4 mL, IV Push, [id number] furosemide 40 mg oral tablet 40 mg = 1 Tab, Oral, Daily insulin lispro Scale A:, SubCutaneous, AC and at Bedtime pantoprazole 40 mg intravenous injection 40 mg, IV Push, Daily Code Status Start: 02/21/22 22:11:00 EDT, Full Code, Continuous Order Condition on Discharge crtically sick Consulting Physicians TORRES MARTINEZ MD-NEP (campos) JOHN WOODS MD-PUL MONSE KIM MD-INF HIGINIO AREVALO MD-INF ZAHRA, MD JODIE B[place]-DLNIRAV, MD WILLIAN ASKEW, MD MIGUELINA-PMR DECLAN, MD MARGARETH Current Diet Order Diet, Adult - Ordered -- Start: 02/27/22 11:24:00 EDT, 60 gm carbs:[id number] angel, Isolation: Standard Precautions, Instructions: Diabetic Diet Pending Labs Dispatched Coronavirus 2019 Novel (COVID-19) Specimen Type: Nasopharyngeal Swab, Stat collect, 03/01/22 14:02:00 EDT, 1-Time, Stop: 03/01/22 14:03:00 EDT, Nurse Collect, Reason for Testing Surveillance Intake, No, No, No, No, Yes, Yes, No Blood Gas Arterial (ABG) Specimen Type: Blood Gas, Timed Study collect, 03/02/22 6:00:00 EDT, 1-Time, Stop: 03/02/22 6:00:00 EDT, Nurse Collect, By: STEPH MINER Blood Gas Arterial (ABG) Specimen Type: Blood Gas, Routine collect, 03/01/22 11:07:00 EDT, 1-Time, Stop: 03/01/22 11:07:00 EDT, Lab Collect:, By: CHICA RAZA MD-[facility] Ordered BMP Basic Metabolic Panel Specimen Type: Blood, AM Draw collect, 02/28/22 4:00:00 EDT, Daily, Nurse Collect Scheduled CBC no Diff (Hemogram) Specimen Type: Blood, AM Draw collect, 03/02/22 4:00:00 EDT, 1-Time, Stop: 03/02/22 4:00:00 EDT, Lab Collect Time Spent on Discharge 65 min documented in this encounter Plan of Treatment Not on file documented as of this encounter Visit Diagnoses Not on filedocumented in this encounter
--- OUTSIDE RECORDS SUMMARY | 2025-02-21 13:42 | XMS_ITS | Encounter Summary ---
Author Organization [employer] Address [address] [place] [address] Care Team Providers Care Braille Transcriber Name Role Phone Unavailable Primary Care Provider Unavailabl e Encounter Details Date Type Department Care Team (Late st Contact Info) Description 05/04/2022 Transcribed Document [facility] [place] Family Medicine [address] [place] [address] ProviderFlorentino MD [address] [place] [address] Social History Tobacco Use Types Packs/Day Years Used Date Smoking Tobacco: Never Assessed Comments Unknown Sex and Gender Information Value Date Recorded Sex Assigned at Not on file Legal Sex Female 1:44 PM CDT Gender Identity Not on file Sexual Orientation Not on file documented as of this encounter Miscellaneous Notes * Cerner Conversion Note - Florentino ProviderMD - 05/04/2022 5:00 AM CDT Chart Check - Review Order Profile Entered On: 05/04/2022 3:16 EDT Performed On: 05/04/2022 5:00 EDT by Casey Palacios Non Emp RN Chart Check Powerplans Initiated/Discontinued as Appropriate : Yes All Active Orders Reviewed : Yes Casey Palacios Non Emp RN - 05/04/2022 3:16 EDT documented in this encounter Plan of Treatment Not on file documented as of this encounter Visit Diagnoses Not on filedocumented in this encounter
--- OUTSIDE RECORDS SUMMARY | 2025-02-21 13:42 | XMS_ITS | Encounter Summary ---
Author Organization [employer] Address [address] [place] [address] Care Team Providers Care Warp Trucker Name Role Phone Unavailable Primary Care Provider Unavailabl e Encounter Details Date Type Department Care Team (Late st Contact Info) Description 03/01/2022 Transcribed Document [facility] [place] [address] [place] [address] ProviderFlorentino MD [facility] [place] [address] Social History Tobacco Use Types Packs/Day Years Used Date Smoking Tobacco: Never Assessed Comments Unknown Sex and Gender Information Value Date Recorded Sex Assigned at Not on file Legal Sex Female 1:44 PM CDT Gender Identity Not on file Sexual Orientation Not on file documented as of this encounter Miscellaneous Notes * Cerner Conversion Note - Florentino Lynne MD - 03/01/2022 6:54 PM CDT Consult Phone Call Documentation Entered On: 03/01/2022 19:27 EDT Performed On: 03/01/2022 18:54 EDT by Colette Dowling RN-PATIENT CARE BEDSIDE NON-EXEMPT Phone Call for Consults Consult Phone Call/Page Attempt : First call Physician Requesting Consult : MICHELLE LORA MD-INT Physician Requested for Consult : GENI ORTIZ MD Provider Service Notified Name : Other: pulmonary Physician Covering for Consult : GENI ORTIZ MD Date and Time Call Returned : 03/01/2022 18:00 EDT Colette Dowling RN-PATIENT CARE BEDSIDE NON-EXEMPT - 03/01/2022 19:26 EDT Electronically signed by Sumaya [facility] Conversion Cafeteria Associate Cerner at 12/21/2022 5:04 PM CDT documented in this encounter Plan of Treatment Not on file documented as of this encounter Visit Diagnoses Not on filedocumented in this encounter
--- OUTSIDE RECORDS SUMMARY | 2025-02-21 13:42 | XMS_ITS | Encounter Summary ---
Author Organization [employer] Address [address] [place] [address] Care Team Providers Care Jet Ski Mechanic Name Role Phone Unavailable Primary Care Provider Unavailabl e Encounter Details Date Type Department Care Team (Late st Contact Info) Description 05/03/2022 Transcribed Document [facility] Family Medicine [address] [place] [address] ProviderFlorentino MD [address] [place] [address] Social History Tobacco Use Types Packs/Day Years Used Date Smoking Tobacco: Never Assessed Comments Unknown Sex and Gender Information Value Date Recorded Sex Assigned at Not on file Legal Sex Female 1:44 PM CDT Gender Identity Not on file Sexual Orientation Not on file documented as of this encounter Miscellaneous Notes * Cerner Conversion Note - Florentino ProviderMD - 05/03/2022 5:00 AM CDT Chart Check - Review Order Profile Entered On: 05/03/2022 4:47 EDT Performed On: 05/03/2022 5:00 EDT by Casey Palacios Non Emp RN Chart Check Powerplans Initiated/Discontinued as Appropriate : Yes All Active Orders Reviewed : Yes Casey Palacios Non Emp RN - 05/03/2022 4:47 EDT documented in this encounter Plan of Treatment Not on file documented as of this encounter Visit Diagnoses Not on filedocumented in this encounter
--- OUTSIDE RECORDS SUMMARY | 2025-02-21 13:42 | XMS_ITS | Encounter Summary ---
Author Organization [employer] Address [address] [place] [address] Care Team Providers Care Painting Manager Name Role Phone Unavailable Primary Care Provider Unavailabl e Encounter Details Date Type Department Care Team (Late st Contact Info) Description 03/01/2022 Transcribed Document [facility] Family Medicine [facility] [place] [address] ProviderFlorentino MD [facility] [place] [address] Social History Tobacco Use [...] Note - Florentino Lynne MD - 03/01/2022 4:27 PM CDT Rapid Response Team Documentation Entered On: 03/01/2022 16:27 EDT Performed On: 03/01/2022 16:27 EDT by DAYDAY KING RN Rapid Response Event Rapid Response Team Initiation Reason Details : called report to neuro FLIGHT OPERATIONS ENGINEER Bertrand Rapid Response Admission Diagnosis : Acute kidney failure, unspecified Cardiac arrest, cause unspecified 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 Pneumonia, unspecified organism Severe sepsis with septic shock Rapid Response Medical Background : History of obstructive sleep apnea (Medical) Rapid Response Allergies : Substance Category Reactions Severity No Known Allergies Drug Rapid Response Recent Vital Signs : 03/01/2022 16:15 Systolic Blood Pressure 159 03/01/2022 16:15 Diastolic Blood Pressure 89 03/01/2022 16:15 Heart Rate Monitored 93 03/01/2022 16:15 Respiratory Rate 17 03/01/2022 14:30 Temperature, Fahrenheit 97 03/01/2022 16:15 Oxygen Saturation 99 Rapid Response Recent Lab [...] (02/22/22 00:20:00) DAYDAY KING RN - 03/01/2022 16:27 EDT documented in this encounter Plan of Treatment Not on file documented as of this encounter Visit Diagnoses Not on filedocumented in this encounter
--- OUTSIDE RECORDS SUMMARY | 2025-02-21 13:42 | XMS_ITS | Encounter Summary ---
Author Organization [employer] Address [address] [place] [address] Care Team Providers Care Coil Placer Name Role Phone Unavailable Primary Care Provider Unavailabl e Encounter Details Date Type Department Care Team (Late st Contact Info) Description 03/01/2022 Transcribed Document [facility] Family Medicine [address] [place] [address] ProviderFlorentino MD [address] [place], [place] [address] Social History Tobacco Use Types Packs/Day Years Used Date Smoking Tobacco: Never Assessed Comments Unknown Sex and Gender Information Value Date Recorded Sex Assigned at Not on file Legal Sex Female 1:44 PM CDT Gender Identity Not on file Sexual Orientation Not on file documented as of this encounter Miscellaneous Notes * Cerner Conversion Note - Historical ProviderMD - 03/01/2022 6:35 PM CDT Consult Phone Call Documentation Entered On: 03/01/2022 18:57 EDT Performed On: 03/01/2022 18:35 EDT by Colette Dowling RN-PATIENT CARE BEDSIDE NON-EXEMPT Phone Call for Consults Consult Phone Call/Page Attempt : First call Provider Service Notified Name : Nephrology Physician Covering for Consult : MARGARETH MANRIQUEZ MD Date and Time Call Returned : 03/01/2022 18:49 EDT Physician Returning Call : MARGARETH MANRIQUEZ MD Armstrong, Jeanette C, RN-PATIENT CARE BEDSIDE NON-EXEMPT - 03/01/2022 18:56 EDT Electronically signed by Sumaya [facility] Conversion Pneumatic Tool Repairer Cerner at 12/21/2022 5:07 PM CDT documented in this encounter Plan of Treatment Not on file documented as of this encounter Visit Diagnoses Not on filedocumented in this encounter
--- OUTSIDE RECORDS SUMMARY | 2025-02-21 13:42 | XMS_ITS | Encounter Summary ---
Author Organization [employer] Address [address] [place] [address] Care Team Providers Care Interventional Radiology Tech Name Role Phone Unavailable Primary Care Provider Unavailabl e Encounter Details Date Type Department Care Team (Late st Contact Info) Description 02/22/2022 Transcribed Document [facility] [place] Family Medicine Pending sale to [facility] [address] ProviderFlorentino MD [address] [place] [address] Social History Tobacco Use Types Packs/Day Years Used Date Smoking Tobacco: Never Assessed Comments Unknown Sex and Gender Information Value Date Recorded Sex Assigned at Not on file Legal Sex Female 1:44 PM CDT Gender Identity Not on file Sexual Orientation Not on file documented as of this encounter Miscellaneous Notes * Cerner Conversion Note - Florentino Lynne MD - 02/22/2022 8:40 AM CDT Patient: ALYSSA AZUL Age: 61 Years Sex: Female : 1960 Chief Complaint Sepsis Reason for Consultation Elevated creatinine History of Present Illness 61-year-old WF with history of paraplegia since childhood. Patient apparently presented to OSH with fevers and chills. Patient was found to have a large ulceration over her left hip. Per report patient also was found to have pneumonia. Patient was taken to surgery with hip ulcer debridement. Patient had cardiac arrest post operatively 02/21. Patient intubated. Transferred here for higher level of care. Per report creatinine was 2.1 on discharge from OSH. 2.6 up to 2.8 here today. Urine output has been on the low side. Patient was on the ventilator but has been extubated to BiPAP.. Nephrology consulted to assist with renal failure. Patient is able to answer questions minimally has she is having difficulty speaking on BiPAP. Patient reports she follows with nephrology. Per chart creatinine was 1.6 on 02/20/2022. Discussed with family members at bedside, patient typically with significant lower extremity edema which is much better than baseline. Blood pressure remains on the low side but off pressors. Review of Systems Unable to obtain Vital Signs T: 37.2 ??C HR: 65(Monitored) RR: 18 BP: 81/44 SpO2: 97% HT: 162.56 cm WT: 94.2 kg BMI: 35.6 Oxygen Settings (Last) Oxygen Therapy Mode: Mechanical ventilation (02/22/22 04:39:00) Physical Exam Physical exam contact minimized to prevent unnecessary risk of COVID-19 exposure General: Mild to moderate respiratory distress when off BiPAP. WD chronically ill-appearing WF Neurologic: Awake alert and oriented Psychiatric: Appears appropriate. Eye: Pupils equal, no scleral icterus, no conjunctivitis HENT: normal cephalic, BiPAP in place, no lesion seen Neck: No JVD seen, trach midline with old trach scar Lungs: Tachypneic with increased work of breathing when off BiPAP., symmetrical chest expansion Heart: RRR trace edema : + Valenzuela cath, no palp bladder Skin: warm, dry. Pruning over lower extremities Assessment/Plan ARF: Patient likely with prerenal azotemia due to hypotension which may be evolving to ATN along with Vanco toxicity.. FeNa borderline at 1.3% with a low Fe urea 25%. Vancomycin level noted to be >50. For now continue supportive care. Optimize volume. Hold further vancomycin for now. Monitor strict I's and O's. Hopefully renal function will recover quickly. Sepsis: Patient with pneumonia and hip ulceration. Patient on antibiotics. May have component of cardiogenic shock with post op cardiac arrest. Albumin quite low. Patient now off pressors. Hyponatremia: Sodium levels drifting up to 146. All fluids hypotonic. Metabolic acidosis: Bicarb levels quite low with renal failure along with chloride overload.. pH 7.2. Give amps of bicarb to keep pH >7.3 for now. Had initially switched to bicarb drip, however due to concerns with possible overload and respiratory compromise these have been held. Use only nonchlorinated fluids for now as able. Anemia: Transfuse as needed for Hgb <7 Decubitus ulcer post debridement Pneumonia: On antibiotics Respiratory failure: Extubated to BiPAP. Still tenuous. Patient with significant acidosis which may be increasing respiratory distress. Discussed at length with the pulmonary attending. We will give bicarb amps to keep pH >7.3. Minimize volume for now. Can give Bumex if needed for worsening respiratory status despite rising creatinine. High risk and complexity critically ill patient. Thanks for the consult. We will follow along closely. Provider Information Primary Care Physician - JOHN, NOT LISTED Attending Physician - KASI RAVI MD Admitting Physician - KASI RAVI MD Consulting Physician - TORRES MARTINEZ MD-NEP (campos) Referring Physician - JOHN, UNKNOWN Problem List/Past Medical History Ongoing No qualifying data Historical No qualifying data Medications Inpatient acetaminophen, 650 mg= 2 Tab, Oral, Q6H, PRN albuterol 2.5 mg/3 mL (0.083%) inhalation solution, 3 mL, Nebulized Inhalation , RT_Q4H, PRN albuterol-ipratropium 2.5 mg-0.5 mg/3 mL inhalation solution, 3 mL, Nebulized Inhalation , RT_Q4H While Awake calcium gluconate, 1 Gram= 50 mL, IV Piggyback, Daily, PRN calcium gluconate, 2 Gram= 100 mL, IV Piggyback, Daily, PRN calcium gluconate, 2 Gram= 100 mL, IV Piggyback, Q12H, PRN fentaNYL, 25 mcg= 0.5 mL, IV Push, Q4H While Awake, PRN fentaNYL injection 2,000 mcg + NaCl 0.9% Premix Diluent 100 mL heparin, 5000 Units= 1 mL, SubCutaneous, Q8HInt hydrALAZINE, 10 mg= 0.5 mL, IV Push, Q4H, PRN labetalol, 10 mg= 2 mL, IV Push, Q4H, PRN magnesium sulfate, 2 Gram= 50 mL, IV Piggyback, Daily, PRN magnesium sulfate, 2 Gram= 50 mL, IV Piggyback, Q2H, PRN methylPREDNISolone sodium succinate, 40 mg= 1 mL, IV Push, Q8H Mucinex, 1200 mg= 2 Tab, Oral, BID NORepinephrine 8 mg + Sodium Chloride 0.9% intravenous solution 250 mL ondansetron, 4 mg= 2 mL, IV Push, Q6H, PRN pantoprazole, 40 mg, IV Push, Daily potassium chloride 10 mEq/50 mL intravenous solution, 10 mEq= 100 mL, IV Piggyback, Q1H, PRN potassium chloride 20 mEq oral tablet, extended release, 20 mEq= 1 Tab, Oral, Q2H, PRN potassium chloride 20 mEq oral tablet, extended release, 60 mEq= 3 Tab, Oral, Q2H, PRN propofol injection 1,000 mg + Premix Diluent for Drip 100 mL Sodium Chloride 0.45% intravenous solution 1,000 mL, 1000 mL, IntraVENous sodium phosphate sodium phosphate traMADol, 50 mg= 1 Tab, Oral, Q6H, [...] mg= 1 Tab, Oral, BID With Meals [place]-3 1000 mg oral capsule, 1000 mg= 1 Cap, Oral, QID pravastatin 40 mg oral tablet, 40 mg= 1 Tab, Oral, Daily Allergies No Known Allergies Lab Results Test Name Test Result Date/Time pH Art 7.21 (Critical) 02/22/2022 00:16 EDT pCO2 Art 31.2 mmHg (Low) 02/22/2022 00:16 EDT pO2 Art 74.4 mmHg (Low) 02/22/2022 00:16 EDT HCO3 Art 12.0 mmol/L (Low) 02/22/2022 00:16 EDT BE Art -14.4 mmol/L (Low) 02/22/2022 00:16 EDT sO2 Art 93.7 % (Low) 02/22/2022 00:16 EDT tHb Art 8.8 Gram/dL (Low) 02/22/2022 00:16 EDT ctO2 11.5 mmol/L 02/22/2022 00:16 EDT FIO2 Art 40.0 02/22/2022 00:16 EDT [...] 00:16 EDT Set Rate Art 18 02/22/2022 00:16 EDT Respiratory Rate Art 22.0 02/22/2022 00:16 EDT CPAP/PEEP Art 5.0 cmH2O 02/22/2022 00:16 EDT ABG Num of Draw Attempts 1 02/22/2022 00:16 EDT PaO2/FiO2 calculated 186 02/22/2022 00:16 EDT [...] Level 6.8 mg/dL (Low) 02/22/2022 04:00 EDT Glucose POC2 228 mg/dL (High) 02/22/2022 06:05 EDT Creatinine Urine Random 64 mg/dL 02/21/2022 22:12 EDT Sodium Ur [place] 45 mMole/Liter 02/21/2022 22:12 EDT Urea Nitrogen [...] ALYC # 1 K/uL 02/22/2022 04:00 EDT [place] Percent Man 1 % (Low) 02/22/2022 04:00 EDT [place] Percent Man 3 % (High) 02/22/2022 04:00 [...] Appearance Clear 02/21/2022 22:12 EDT Urine Specific [place] 1.014 02/21/2022 22:12 EDT Urine pH Dipstick [...] Peak >50.0 mcg/mL (Critical) 02/22/2022 06:00 EDT documented in this encounter Plan of Treatment Not on file documented as of this encounter Visit Diagnoses Not on filedocumented in this encounter
--- OUTSIDE RECORDS SUMMARY | 2025-02-21 13:42 | XMS_ITS | Encounter Summary ---
Author Organization [employer] Address [address] [place] [address] Care Team Providers Care Machine Operator Assistant Name Role Phone Unavailable Primary Care Provider Unavailabl e Encounter Details Date Type Department Care Team (Late st Contact Info) Description 03/01/2022 Transcribed Document [facility] [place] [address] [place] [address] ProviderFlorentino MD [address] [place] [address] Social History Tobacco Use Types Packs/Day Years Used Date Smoking Tobacco: Never Assessed Comments Unknown Sex and Gender Information Value Date Recorded Sex Assigned at Not on file Legal Sex Female 1:44 PM CDT Gender Identity Not on file Sexual Orientation Not on file documented as of this encounter Miscellaneous Notes * Cerner Conversion Note - Florentino Lynne MD - 03/01/2022 10:57 AM CDT Patient: ALYSSA AZUL Age: 61 years Sex: Female : 1960 Associated Diagnoses: None Author: MARGARETH MANRIQUEZ MD Subjective Feeling worse today. More short of breath with respiratory distress. ABG's and CT of chest pending. On 4L HI. Objective VS/Measurements Vitals Signs (last 24 hrs) Last Charted Minimum Maximum Temp 97.1 (MAR 01 09:08) 97.1 (MAR 01 09:08) 98.1 (FEB 28 13:24) Mon HR 72 (MAR 01 09:08) 63 (MAR 01 01:15) 85 (FEB 28 13:24) Resp Rate 20 (MAR 01 09:08) 16 (FEB 28 17:27) H 32 (FEB 28 20:06) SBP H 176 (MAR 01 09:08) H 146 (MAR 01 01:15) H 185 (FEB 28 20:17) DBP 88 (MAR 01 09:08) 70 (MAR 01 01:15) H 91 (FEB 28 20:17) MAP 109 (MAR 01 09:08) 88 (MAR 01 01:15) 113 (FEB 28 20:17) SpO2 100 (MAR 01 09:08) L 85 (FEB 28 17:27) 100 (MAR 01 09:08) Intake & Output Totals Last 24 Hours (7a-7a) Intake (14 Events) Medications (151.97 mL) Oral Intake (490 mL) Output (2 Events) Valenzuela Catheter (475 mL) Urine Voided (Volume) (550 mL) Input Total: 641.97 mL Output Total: 1025 mL Balance: -383.03 mL Physical exam contact may be limited to avoid COVID-19 exposure General: Moderate distress, WD chronically ill-appearing WF. Eye: Pupils are equal, round and reactive to light, Normal conjunctiva. HENT: Normocephalic. Neck: Supple, No jugular venous distention. Respiratory: Symmetrical chest wall expansion, labored respirations. Cardiovascular: Trace edema. Gastrointestinal: Non-distended. Genitourinary: + Valenzuela. Integumentary: Warm, Dry, No rash. Neurologic: Alert, Oriented. Psychiatric: Cooperative, Appropriate mood & affect. Results Review Labs (Last four charted values) WBC 8.2 (MAR 01) 10.0 (FEB 28) 9.0 (FEB 27) 9.6 (FEB 26) HB L 7.9 (MAR 01) L 7.8 (FEB 28) L 8.6 (FEB 27) L 8.1 (FEB 26) HCT L 25.7 (MAR 01) L 25.1 (FEB 28) L 27.5 (FEB 27) L 25.8 (FEB 26) Plt 163 (MAR 01) 197 (FEB 28) 190 (FEB 27) 203 (FEB 26) Na H 148 (MAR 01) H 147 (FEB 28) H 148 (FEB 27) H 147 (FEB 26) K 4.0 (MAR 01) 4.0 (FEB 28) L 3.2 (FEB 27) 3.6 (FEB 26) Cl H 116 (MAR 01) H 113 (FEB 28) H 113 (FEB 27) 112 (FEB 26) CO2 24 (MAR 01) 23 (FEB 28) 22 (FEB 27) 23 (FEB 26) BUN H 58 (MAR 01) H 53 (FEB 28) H 50 (FEB 27) H 50 (FEB 26) Cr H 2.76 (MAR 01) H 2.94 (FEB 28) H 3.12 (FEB 27) H 3.30 (FEB 26) Glu R H 133 (MAR 01) H 178 (FEB 28) 97 (FEB 27) H 153 (FEB 26) Ca L 8.1 (MAR 01) L 8.2 (FEB 28) 8.5 (FEB 27) L 8.2 (FEB 26) Lactic 0.9 (FEB 22) 0.7 (FEB 22) AST 9 (MAR 01) 13 (FEB 26) 13 (FEB 24) 14 (FEB 23) ALT 13 (MAR 01) 15 (FEB 26) 16 (FEB 24) 16 (FEB 23) ALK P 45 (MAR 01) 51 (FEB 26) 49 (FEB 24) 53 (FEB 23) T Bili 0.4 (MAR 01) 0.4 (FEB 26) 0.4 (FEB 24) 0.4 (FEB 23) PTN L 5.9 (MAR 01) L 6.1 (FEB 26) L 5.4 (FEB 24) L 5.9 (FEB 23) ALB L 2.3 (MAR 01) L 1.9 (FEB 26) L 1.7 (FEB 24) L 1.9 (FEB 23) Impression and Plan ARF: Creatinine improving, down to 2.76 today with improved hemodynamic stability. Urine output nonoliguric. Patient thought to have prerenal azotemia due to hypotension which may be evolving to ATN along with possible Vanc toxicity. Previously FeNa borderline at 1.3% with a low Fe urea 25%. Vancomycin level was >50 for least 48 hours. For now continue supportive care. Optimize volume. Monitor strict I's and O's. Watch for further renal recovery. No emergent indication for dialysis at this time. CKD 3: Baseline creatinine around 1.6. Patient follows with [facility]. Sepsis: Resolved. Patient with pneumonia and hip ulceration. Patient on antibiotics. HTN: Blood pressure on the high side at times. Continue current medications for now. Cover with PRN meds as needed. Monitor for now. Hypernatremia: Sodium increasing to 148. All fluids hypotonic. Increased p.o./PT free water. Hypokalemia: Stable overnight. Continue to replace as needed. Magnesium replaced to>2.0 to assist with renal potassium recovery. Metabolic acidosis: Stable. Initially bicarb levels were quite low with renal failure along with chloride overload. Patient was getting IV bicarb with improvement. Patient now on p.o. bicarb. Will titrate dose as needed. Anemia: Hemoglobin 7.9 overnight. Patient post recent transfusion for hemoglobin 6.8. Transfuse as needed for Hgb <7. Volume: Volume stable overnight. Continue perfusion support. Decubitus ulcer post debridement Pneumonia: On antibiotics Respiratory failure: Extubated. Moderate respiratory distress today. ABG's and CT of chest pending. High risk and complexity patient. documented in this encounter Plan of Treatment Not on file documented as of this encounter Visit Diagnoses Not on filedocumented in this encounter
--- OUTSIDE RECORDS SUMMARY | 2025-02-21 13:42 | XMS_ITS | Encounter Summary ---
Author Organization [employer] Address [address] [place] [address] Care Team Providers Care Building Construction Superintendent Name Role Phone Unavailable Primary Care Provider Unavailabl e Encounter Details Date Type Department Care Team (Late st Contact Info) Description 04/21/2022 Transcribed Document [facility] [place] [address] [place] [address] ProviderFlorentino MD [address] [place] [address] Social History Tobacco Use Types Packs/Day Years Used Date Smoking Tobacco: Never Assessed Comments Unknown Sex and Gender Information Value Date Recorded Sex Assigned at Not on file Legal Sex Female 1:44 PM CDT Gender Identity Not on file Sexual Orientation Not on file documented as of this encounter Miscellaneous Notes * Cerner Conversion Note - Florentino Lynne MD - 04/21/2022 8:56 PM CDT Patient: ALYSSA AZUL Age: 61 years Sex: Female : 1960 Associated Diagnoses: None Author: HIGINIO AREVALO MD-INF Antibiotics: meropenem CC: Sacral wound Subjective: Patient with low-grade fever stable on antibiotics looking for placement still elevated heart rate and blood pressure Objective: Vitals Signs (last 24 hrs) Last Charted Minimum Maximum Temp 99.6 (APR 21 15:23) 98.8 (APR 21 10:00) H 100 (APR 20 22:00) Mon HR 98 (APR 21 19:17) 51 (APR 21 06:11) 109 (APR 21 09:35) Resp Rate 18 (APR 21 19:17) 18 (APR 21 19:17) H 21 (APR 20 23:22) SBP 106 (APR 21:23) 106 (APR 21:) H 169 (APR 21 06:11) DBP 67 (APR 21:) 67 (APR 21:) 83 (APR 21 02:00) MAP 79 (APR 21:) 79 (APR 21 15:) 113 (APR 20 22:00) SpO2 98 (APR 21 19:17) 94 (APR 21 06:11) 98 (APR 21 19:17) PE: General: alert, oriented x3 HEENT: sclera [...] (Last four charted values) WBC L 4.3 (APR 21) L 4.1 (APR 20) L 3.2 (APR 19) 5.3 (APR 17) HB L 8.8 (APR 21) L 8.1 (APR 20) L 9.0 (APR 19) L 6.8 (APR 19) HCT L 27.7 (APR 21) L 25.4 (APR 20) L 27.5 (APR 19) L 21.5 (APR 19) Plt L 114 (APR 21) L 88 (APR 20) L 85 (APR 19) L 99 (APR 17) Na 140 (APR 21) 141 (APR 20) 140 (APR 19) 140 (APR 17) K 4.4 (APR 21) 4.2 (APR 20) 4.4 (APR 19) 4.0 (APR 17) Cl 109 (APR 21) 109 (APR 20) 109 (APR 19) 107 (APR 17) CO2 27 (APR 21) 28 (APR 20) 28 (APR 19) 28 (APR 17) BUN 22 (APR 21) 21 (APR 20) 21 (APR 19) 22 (APR 17) Cr H 1.30 (APR 21) H 1.30 (APR 20) H 1.20 (APR 19) H 1.50 (APR 17) Glu R 76 (APR 21) L 56 (APR 20) 74 (APR 19) 90 (APR 17) Ca 8.9 (APR 21) L 8.1 (APR 20) L 7.9 (APR 19) L 8.0 (APR 17) Lactic 1.0 (APR 14) 1.7 (APR 13) [...] alert fevers resolved and no crrt and technical trainer stable. Platelets are stable continue on broad-spectrum coverage with improvement with Zosyn micafungin and meropenem White blood cell count down no fevers creatinine stable at 1.5 with CRP coming down we will begin de-escalation of antibiotics DC linezolid is now completed course of therapy and will need meropenem through 2022 to complete therapy Stable continue meropenem looking for placement RECOMMENDATIONS/PLANS: -Continue meropenem at current dose through 2022 to complete therapy -Looking for placement -Labs in a.m. CBC CMP CRP documented in this encounter Plan of Treatment Not on file documented as of this encounter Visit Diagnoses Not on filedocumented in this encounter
--- OUTSIDE RECORDS SUMMARY | 2025-02-21 13:42 | XMS_ITS | Encounter Summary ---
Author Organization [employer] Address [address] [place] [address] Care Team Providers Care Machine Maintenance Supervisor Name Role Phone Unavailable Primary Care Provider Unavailabl e Encounter Details Date Type Department Care Team (Late st Contact Info) Description 02/22/2022 Transcribed Document [facility] [place] [address] [place] [address] ProviderFlorentino MD [address] [place] [address] Social History Tobacco Use Types Packs/Day Years Used Date Smoking Tobacco: Never Assessed Comments Unknown Sex and Gender Information Value Date Recorded Sex Assigned at Not on file Legal Sex Female 1:44 PM CDT Gender Identity Not on file Sexual Orientation Not on file documented as of this encounter Miscellaneous Notes * Cerner Conversion Note - Historical ProviderMD - 02/22/2022 6:00 PM CDT Patient re-evaluated due to increased wob. Bipap dependent. Responding well to lasix. Mental status reduced from baseline this morning. Decision to electively intubate due to impending respiratory failure. procedure: intubation Indication: acute respiratory failure, increased wob etomidate 20ml [place] scope used to place 7.5 ETT Single pass, no complications CXR personally reviewed and ETT repositioned to 23cm + CO2 changes, + bilat BS, + ett condensation Son updated on changes. Electronically signed by Sumaya [facility] Conversion Environmental Compliance Inspector Mykel at 12/21/2022 5:02 PM CDT documented in this encounter Plan of Treatment Not on file documented as of this encounter Visit Diagnoses Not on filedocumented in this encounter
--- OUTSIDE RECORDS SUMMARY | 2025-02-21 13:42 | XMS_ITS | Encounter Summary ---
Author Organization [email or web address] Address [address] [place] [address] Care Team Providers Care Counter Checker Name Role Phone Unavailable Primary Care Provider Unavailabl e Encounter Details Date Type Department Care Team (Late st Contact Info) Description 05/04/2022 Transcribed Document [facility] [place] Medicine [address] [place] [address] ProviderFlorentino MD [address] [place] [address] Social History Tobacco Use Types Packs/Day Years Used Date Smoking Tobacco: Never Assessed Comments Unknown Sex and Gender Information Value Date Recorded Sex Assigned at Not on file Legal Sex Female 1:44 PM CDT Gender Identity Not on file Sexual Orientation Not on file documented as of this encounter Miscellaneous Notes * Cerner Conversion Note - Historical ProviderMD - 05/04/2022 2:33 PM CDT Event Note Entered On: 05/04/2022 14:34 EDT Performed On: 05/04/2022 14:33 EDT by RADHIKA WALDEN RN Event Note Event Date/Time : 05/04/2022 14:00 EDT Event Location : Assigned room Event Details : Nursing assessment additional narrative Description of Event : 3x attempt insertion, unsuccessful RADHIKA WALDEN RN - 05/04/2022 14:33 EDT documented in this encounter Plan of Treatment Not on file documented as of this encounter Visit Diagnoses Not on filedocumented in this encounter
--- OUTSIDE RECORDS SUMMARY | 2025-02-21 13:42 | XMS_ITS | Encounter Summary ---
Author Organization [employer] Address [address] [place] [address] Care Team Providers Care Assembler Crimper Name Role Phone Unavailable Primary Care Provider Unavailabl e Encounter Details Date Type Department Care Team (Late st Contact Info) Description 03/01/2022 Transcribed Document [facility] [place] [address] [place] [address] ProviderFlorentino MD [facility] [place] [address] Social History Tobacco Use Types Packs/Day Years Used Date Smoking Tobacco: Never Assessed Comments Unknown Sex and Gender Information Value Date Recorded Sex Assigned at Not on file Legal Sex Female 1:44 PM CDT Gender Identity Not on file Sexual Orientation Not on file documented as of this encounter Miscellaneous Notes * Cerner Conversion Note - Florentino Lynne MD - 03/01/2022 12:05 PM CDT Patient: ALYSSA AZUL Age: 61 years Sex: Female : 1960 Associated Diagnoses: None Author: CHICA RAZA MD-[facility] Subjective 03/01/22 off bipap weak not feeling well resp distress Health Status Allergies: Allergic Reactions (Selected) No Known Allergies, Allergies (1) Active Reaction No Known Allergies None Documented Current medications: (Selected) Inpatient Medications Ordered Ativan: 0.5 mg, IV Push, Q4H, PRN: Agitation Augmentin 500 mg-125 mg oral tablet: 500 mg, 1 Tab, Oral, BID Chloraseptic Menthol 1.4% topical spray: 1 [place], Oral, Q2H, PRN: Sore Throat Dextrose 50% injection: 12.5 Gram, IV Push, Q15Min, PRN: Other (See Comment) Dextrose 50% injection: 25 Gram, IV Push, Q15Min, PRN: Other (See Comment) acetaminophen: 650 mg, Oral, Q6H, PRN: Pain (Mild 1-3) albuterol 2.5 mg/3 mL (0.083%) inhalation solution: 3 mL, Nebulized Inhalation, RT_Q4H, PRN: Shortness of Breath albuterol-ipratropium 2.5 mg-0.5 mg/3 mL inhalation solution: 3 mL, Nebulized Inhalation, RT_Q4H bisoprolol: 5 mg, Oral, Daily bumetanide: 1 mg, IV Push, [id number] calcium gluconate: 1 Gram, 50 mL, 50 [...] PRN: Pain (Moderate 4-6) Documented Medications Documented Branford-3 1000 mg oral capsule: 1 Cap, Oral, [...] = 1 Tab, Oral, BID With Meals Branford-3 1000 mg oral capsule 1,000 mg = 1 Cap, Oral, QID pravastatin 40 mg oral tablet 40 mg = 1 Tab, Oral, Daily , Medications (29) Active Scheduled: (7) albuterol-ipratropium inh 3 mL 3 mL, Nebulized Inhalation, RT_Q4H amoxicillin/clav 500/125 mg tab 500 mg 1 Tab, Oral, BID bisoprolol 5 mg tab 5 mg 1 Tab, Oral, Daily bumetanide 2.5 mg/10 mL inj 1 mg 4 mL, IV Push, [id number] insulin glargine 1 unit/0.01 mL inj 14 Units 0.14 mL, SubCutaneous, BID insulin lispro 1 unit/0.01 mL inj Scale A:, SubCutaneous, AC and at Bedtime pantoprazole 40 mg inj 40 mg, IV Push, Daily Continuous: (0) PRN: (22) acetaminophen 325 mg tab 650 mg 2 [...] 10 mg 0.5 mL, IV Push, Q6H LORazepam 2 mg/mL inj 0.5 mg 0.25 mL, IV Push, Q4H magnesium sulfate 2 Gram 50 mL, IV Piggyback, Daily magnesium sulfate 2 Gram 50 mL, IV Piggyback, Q2H ondansetron 4 mg/2 mL inj 4 mg 2 mL, IV Push, Q6H phenol 1.4% throat spray 1 [place], Oral, Q2H potassium bicarb efferves 20 mEq [...] History of obstructive sleep apnea / IMO [id number] / Confirmed, Active Problems (1) History of obstructive sleep apnea Objective Intake and Output Intake & Output Totals Last 24 Hours (7a-7a) Intake (14 Events) Medications (151.97 mL) Oral Intake (490 mL) Output (2 Events) Valenzuela Catheter (475 mL) Urine Voided (Volume) (550 mL) Input Total: 641.97 mL Output Total: 1025 mL Balance: -383.03 mL VS/Measurements Vitals Signs (last 24 hrs) [...] (FEB 28 17:27) 100 (MAR 01 09:08) General: No acute distress, lying in bed [...] & affect. Results Review General results Interpretation: MAR 01 04:50 H 148 H 116 H 58 / H 133 4.0 24 H 2.76 \ MAR 01 04:50 \ L 7.9 / 8.2 163 / L 25.7 \ Labs (Last four charted values) WBC 8.2 [...] (MAR 01) L 8.2 (FEB 28) 8.5 (JAN 30) L 8.2 (FEB 26) Lactic 0.9 (JAN 25) 0.7 (JAN 25) AST 9 (MAR 01) 13 (FEB 26) 13 (FEB 24) 14 (FEB 23) ALT 13 (MAR 01) 15 (FEB 26) 16 (CATRACHITA 27) 16 (FEB 23) ALK P 45 (MAR [...] 1.7 (FEB 24) L 1.9 (FEB 23) No Radiology Results Found Impression and Plan [...] appreciated- recommend wound care consult - d/w mussel farmer today- wound vac applied on 02/24 pneumonia [...] the patient due to divert status. Summary [facility] stay: patient admitted to [facility] on 02/17/22, temp in ER of [...] necrosis. no pathology sent. [place] [facility] [place]. 02/22: extubated, given [...] IV Zosyn tele today 02/28/22 improving 03/01/22 worse today check ABG CT chest abdomen pelvis Disposition Rehab next week d/w RN time spent 38 min Electronically signed by Sumaya, [facility] Conversion Depalletizer Operator Cerner at 12/21/2022 5:07 PM CDT documented in this encounter Plan of Treatment Not on file documented as of this encounter Visit Diagnoses Not on filedocumented in this encounter
--- OUTSIDE RECORDS SUMMARY | 2025-02-21 13:42 | XMS_ITS | Encounter Summary ---
Author Organization [employer] [facility] Address [address] [place] [address] Care Team Providers Care Laboratory Worker Name Role Phone Unavailable Primary Care Provider Unavailabl e Encounter Details Date Type Department Care Team (Late st Contact Info) Description 04/22/2022 Transcribed Document [facility] [place] Family Medicine [address] [place] [address] ProviderFlorentino MD [address] [place] [address] Social History Tobacco Use Types Packs/Day Years Used Date Smoking Tobacco: Never Assessed Comments Unknown Sex and Gender Information Value Date Recorded Sex Assigned at Not on file Legal Sex Female 1:44 PM CDT Gender Identity Not on file Sexual Orientation Not on file documented as of this encounter Miscellaneous Notes * Cerner Conversion Note - Florentino ProviderMD - 04/22/2022 4:39 PM CDT On Going Discharge Planning Entered On: 04/22/2022 16:43 EDT Performed On: 04/22/2022 16:39 EDT by Adalid Castro METAL CASTER NON-EXEMPT Care Management Progress Note Discharge Arrangements [...] Offered Choice/Affiliations Explained : Yes Adalid Castro METAL CASTER NON-EXEMPT - 04/22/2022 16:39 EDT Narrative Progress Note Narrative Progress Note : Pt had DC order, but too many unresolved DC issues Pt declines offer for [facility] to start precert Pt wants to DC home with son Concern is finding HH Outpatient wound vac changes may be problem as son & DIL work during day [employer] referral made for IV abx HH may not be secured due to insurance & area Son lives in [place], [place] Pending issues: wound vac, IV abx & HH services CM will continue to follow Historical Progress Note : Cm spoke with [...] going to facility if it is in [place]. Cm faxed to [facility] per permission from family. CM will continue to follow. ERIK GALARZA, Perinatal Coordinator-Work Ticket Distributor - 04/18/22 13:51:52 Patient has been declined by all HH agencies. CM spoke to patient is open to [facility] however, [facility] does not have an open [...] CM will continue to follow. ERIK GALARZA, Perinatal Coordinator-Work Ticket Distributor - 04/17/22 14:39:18 Patient requested CM speak with her daughter in law. Cm spoke with DIN who reported patient wants to discharge home with HH and DME. She will need a BSC for sure. If possible she would like to have a new CPAP as her's is old and needs replaced. Unsure of company name but maybe [employer]. Patient has all other DME. Patient does not have a preference of HH agency but wants it to be in area and with insurance. CM will continue to follow and set up DME and HH. ERIK GALARZA, Perinatal Coordinator-Work Ticket Distributor - 04/16/22 15:45:27 home health referral made to [facility] to assist with HH placement. very few HH agencies participate with pt's insurance so wound vac may need management at wound clinic. pt may have to do outpt PT is she delines snf-swing bed-ltach. TRISTAN TAYLOR, RN-Managing Member - 04/15/22 12:07:49 RRS HIGH, LOS 7, ELOS 5 Mmwtuy-itc-bje-ikxdgfhwbrjp-txldellewxaq-zvyuexskf acidosis HX paraplegia since age 8 L. trochanter-- 11.0cmx6.5cmx2.0cm-current with wound vac CRRT off since 04/11-- possible catheter removal 8.16 Zsddd4wtehupiobf-itkfymclu Pt was [facility] 03.[facility]. family refuses to return to [facility] and [facility] declined to accept back. Spoke with pt and she wishes to dc home with her son. She will need HH, PT for transfers as PLOF was independent, she will need wound vac and son will provide transportation. APS following: Aimee Payne, TRISTAN TAYLOR, PRIMO-Managing Member - 04/15/22 11:57:48 HD# 3. elos: 5. rar: high acute hypoxic resp failure. severe sepsis: shock. campos/ckd. acute pancreatitis. diabetes. paraplegia. covid 19: negative 8. bipap 30%/ra. zyvox/merrem/micafungin iv. wound vac: left trochanter. corpak tube feeds. PT/OT: eob. ST: cleared for diet. no dialysis. APS following: Aimee Payne, . left message with updates. dcp: family decline return to [facility]. new referral [facility]. sent naveal. spoke with jesus alberto, it coordintor. they hope she will improve to dc home with them in [place]. FREDO, son, legal next of kin: [phone] Divine, daughter in law: [phone] SHERIF PAYNE RN-Managing Member - 04/14/22 10:45:05 HD# 3. elos: 5. rar: high acute hypoxic resp failure. severe sepsis: shock. campos/ckd. acute pancreatitis. diabetes. paraplegia. covid 19: negative 8-9. extubated 8-11. 02 4L nc. crrt. levophed gtt. bicarb gtt. zyvox/merrem/micafungin iv. wound vac: left trochanter. APS following: Aimee Graceers, . dcp: family decline return to [facility]. they hope she will improve to dc home with them in [place]. not ltac candidate at this time due to crrt. FREDO, son, legal next of kin: [phone] Divine, daughter in law: [phone] SHERIF PAYNE RN-Managing Member - 04/11/22 09:13:49 late entry for this am. Aimee Payne, [employer] social media senior associate was on site this am. she spoke with clover Bowen rn, interviewed pt's son and spoke with Ms. azul who was awake on ventilator. she left number for claudia Groves sound to call her at Yaneli's convenience. provided medical records as requested. SHERIF PAYNE RN-Managing Member - 04/10/22 15:40:22 HD# 2. elos: 5. rar: high acute hypoxic resp failure. severe sepsis: shock. campos/ckd. acute pancreatitis. diabetes. paraplegia. covid 19: negative 8-9. following commads. mechanical ventilation. crrt. fentanyl gtt. insulin gtt. levophed gtt. evaluation Dr Abraham, orthodontic technician assistant. see her notes. no vaginal laceration. return call from Gayathri Pimentel, . she contacted lorrie Cohen for [facility], [facility], [facility] & [facility] with family concerns. [phone]. APS accepted case: [id number]. dcp: family decline return to [facility]. they hope she will improve to dc home with them in [place]. spoke with Monique Groves PA, sound attending. clover Bowen RN. SHERIF PAYNE RN-Managing Member - 04/10/22 09:41:02 received email from aps. they have accepted & will assign to social media senior associate. SHERIF PAYNE RN-Managing Member - 04/09/22 15:19:44 APS reported filed. [id number]. spoke with Andrés, bedside rn, Amber, residential door unit installer & Mary, house painter helper. SHERIF PAYNE, RN-Managing Member - 04/09/22 12:07:07 Adalid Castro, METAL CASTER NON-EXEMPT - 04/22/2022 16:39 EDT Electronically signed by Sumaya [facility] Conversion Automobile Washer Steam Cerner at 12/21/2022 5:08 PM CDT documented in this encounter Plan of Treatment Not on file documented as of this encounter Visit Diagnoses Not on filedocumented in this encounter
--- OUTSIDE RECORDS SUMMARY | 2025-02-21 13:42 | XMS_ITS | Encounter Summary ---
Author Organization [employer] Address [address] [place] [address] Care Team Providers Care Flour Blender Helper Name Role Phone Unavailable Primary Care Provider Unavailabl e Encounter Details Date Type Department Care Team (Late st Contact Info) Description 02/22/2022 Transcribed Document [facility] [place] Family Medicine [address] [place] [address] ProviderFlorentino MD [address] [place] [address] Social History Tobacco Use Types Packs/Day Years Used Date Smoking Tobacco: Never Assessed Comments Unknown Sex and Gender Information Value Date Recorded Sex Assigned at Not on file Legal Sex Female 1:44 PM CDT Gender Identity Not on file Sexual Orientation Not on file documented as of this encounter Miscellaneous Notes * Cerner Conversion Note - Florentino Lynne MD - 02/22/2022 5:02 AM CDT Patient: ALYSSA AZUL Age: 61 years Sex: Female : 1960 Associated Diagnoses: None Author: ARLINE ROJAS, [facility] Pharmacy Note: Vancomycin per Pharmacy Clinical Pharmacy Note Re: Vancomycin Creatinine Clearance (Current Encounter/Past 24 Hours) Creatinine Level 2.60 mg/dL GA 02/22/2022 00:55 Bun/Creatinine 17.7 02/22/2022 00:55 Estimated Creatinine Clearance 25.29 mL/Min 02/22/2022 00:59 CBC Results (Current Encounter/Past 24 Hours) WBC 18.6 K/uL GA 02/22/2022 00:48 Hct 27.7 % LOW 02/22/2022 00:48 Hgb 8.7 Gram/dL LOW 02/22/2022 00:48 Platelet Count 373 K/uL GA 02/22/2022 00:48 Patient Parameters: Height: 162.56 cm Weight: 94.2 kg Pharmacokinetic parameters: CrCl=~ 25.29 ml/hr Ke= 0.0254 hr-1 Vd= 61.23 L t ??= 27.293 hr Assessment & Plan: Vancomycin 2000 mg IV loading dose. Peak level ordered ~2 hours post infusion. (loading dose) Vancomycin placeholder order entered on patient???s profile. Clinical pharmacist to order random level and dose accordingly. Thanks, Pharmacy documented in this encounter Plan of Treatment Not on file documented as of this encounter Visit Diagnoses Not on filedocumented in this encounter
--- OUTSIDE RECORDS SUMMARY | 2025-02-21 13:42 | XMS_ITS | Encounter Summary ---
Author Organization [employer] Address [address] [place] [id number] Care Team Providers Care Engineering Design Supervisor Name Role Phone Unavailable Primary Care Provider Unavailabl e Encounter Details Date Type Department Care Team (Late st Contact Info) Description 03/01/2022 Transcribed Document [facility] [place] Family Medicine [facility] [place] [address] ProviderFlorentino MD [facility] [place] [address] Social History Tobacco Use Types Packs/Day Years Used Date Smoking Tobacco: Never Assessed Comments Unknown Sex and Gender Information Value Date Recorded Sex Assigned at Not on file Legal Sex Female 1:44 PM CDT Gender Identity Not on file Sexual Orientation Not on file documented as of this encounter Miscellaneous Notes * Cerner Conversion Note - Florentino Lynne MD - 03/01/2022 6:57 PM CDT Patient: ALYSSA AZUL Age: 61 Years Sex: Female : 1960 Chief Complaint Transferred from [facility] for respiratory care as there is no pulm service currently overthere. Primary Care Provider MANE LOPEZ History of Present Illness 61-year-old female was admitted to [facility] on 02/22/2022ast medical history of paraplegia since age 8 presents to [facility] in [place] as a transfer from outside facility where she initially presented complaining of fever and chills for up to a week, unknown inciting event, constant, no exacerbating or relieving factors. She did have an associated cough with sputum production, unknown color or character. Her sister visited her and noticed a large ulceration on her left hip. She was taken to the hospital where imaging revealed a left lower lobe pneumonia. She was seen by surgery and her left hip ulcer was debrided twice. On the evening of 02/20-02/21 she had a cardiac arrest postoperatively. She was intubated and has been on norepinephrine for blood pressure support. Imaging there were no bony erosions of her left femur. She has been on broad-spectrum antibiotics and she was transferred to this facility for higher level of care. I saw her in the intensive care unit upon arrival, approximately 1:00 on 02/22/2022. She is intubated and sedated. We will keep her on propofol and fentanyl, her ABG was reviewed, mild metabolic acidosis, mild hypoxia on FiO2 of 40%. We will keep her intubated and sedated, will consult infectious disease and cardiology to see her for her postcardiac arrest care and suspected infected left hip ulcer. Targeted temperature management was not being pursued at outside facility, she is outside of the appropriate time window for initiation. We will continue with routine postcardiac arrest care. All history obtained from review of medical record discussion with transferring MD. Transferred from [facility] for respiratory care as there is no pulm service currently overthere. Review of Systems All sys neg except for what stated in HPI Vital Signs HR: 96(Monitored) RR: 16 SpO2: 92% HT: 162.56 cm WT: 90 kg BMI: 34.1 Oxygen Settings (Last) Oxygen Therapy Mode: Mechanical ventilation (03/01/22 17:50:00) Physical Exam General: No acute distress, ventilated/sedated. [...] appreciated- recommend wound care consult - d/w airport baggage screener today- wound vac applied on 02/24 pneumonia [...] the patient due to divert status. Summary [facility] stay: patient admitted to [facility] on 02/17/22, temp in ER of [...] no pathology sent. Patient transferred to [facility] at midnight on 02/22. [...] today check ABG CT chest abdomen pelvis May need palliative care Ordered: famotidine, 20 mg, IV Push, Inj, Daily, Routine, Start 03/02/22 9:00:00 EDT, 03/01/22 19:22:00 EDT Bedrest Cardiac Monitoring CBC w/ Auto Diff CMP Comprehensive Metabolic Panel Consult to Physician DVT VTE Prophylaxis Education Facility Protocol Fall Risk/Fall Prevention Protocol Intake and Output Strict Lab Order Instructions to Nursing Magnesium Level Notify Provider Notify Provider of Change in Patient Condition Notify Provider of Change in Patient Condition Notify Provider Vital Signs NPO (immediate) Oxygen Therapy Pulse Oximetry Continuous Monitoring Respiratory Distress Instructions Resuscitation Status Sequential Compression Device Vital Signs VTE Prophylaxis - Medical Heparin 5,000 Units, SubCutaneous, Inj, Q8H, Routine, Start 03/01/22 22:00:00 EDT, 03/01/22 19:01:00 EDT (GENI ORTIZ) Sequential Compression Device Start: 03/01/22 18:51:00 EDT, Bilateral, Length: Knee High, While patient is in bed, Continuous Order (Elaine Ramires, PHYSICIAN-CLINIC) Problem List/Past Medical History Ongoing History of obstructive sleep apnea Historical No qualifying data Home Medications (5) Active bisoprolol 5 mg oral tablet 5 mg = 1 Tab, Oral, Daily bumetanide 0.25 mg/mL injectable solution 1 mg = 4 mL, IV Push, [id number] furosemide 40 mg oral tablet 40 mg = 1 Tab, Oral, Daily insulin lispro Scale A:, SubCutaneous, AC and at Bedtime pantoprazole 40 mg intravenous injection 40 mg, IV Push, Daily Allergies No Known Allergies Lab Results Test Name Test Result Date/Time pH Art 7.37 03/01/2022 18:45 EDT pCO2 Art 39.2 mmHg 03/01/2022 18:45 EDT pO2 Art 80.1 mmHg 03/01/2022 18:45 EDT HCO3 Art 22.4 mmol/L 03/01/2022 18:45 EDT BE Art -2.7 mmol/L (Low) 03/01/2022 18:45 EDT sO2 Art 96.0 % 03/01/2022 18:45 EDT tHb Art 8.9 Gram/dL (Low) 03/01/2022 18:45 EDT FHHb 3.9 % 03/01/2022 18:45 EDT ctO2 11.9 mmol/L 03/01/2022 18:45 EDT FIO2 Art 75 03/01/2022 18:45 EDT Delivery Device Type Art Ventilator 03/01/2022 18:45 EDT Temperature, F Art 98.6 Deg F 03/01/2022 18:45 EDT Art Blood Gas (ABG) Site Arterial Line 03/01/2022 18:45 EDT Acceptable Huang's Test Art Non-Applicable 03/01/2022 18:45 EDT Ventilator Mode Art AC 03/01/2022 18:45 EDT Tidal Volume Set Art 400.0 mL 03/01/2022 18:45 EDT Set Rate Art 16.0 03/01/2022 18:45 EDT Respiratory Rate Art 16.0 03/01/2022 18:45 EDT CPAP/PEEP Art 5.0 cmH2O 03/01/2022 18:45 EDT Comment Art supine 03/01/2022 18:45 EDT ABG Num of Draw Attempts 1 03/01/2022 18:45 EDT PaO2/FiO2 calculated 107 03/01/2022 18:45 EDT Additional Documentation Code Status Start: 03/01/22 18:51:00 EDT, Full Code, Continuous Order documented in this encounter Plan of Treatment Not on file documented as of this encounter Visit Diagnoses Not on filedocumented in this encounter
--- OUTSIDE RECORDS SUMMARY | 2025-02-21 13:42 | XMS_ITS | Encounter Summary ---
Author Organization [employer] Address [address] [place] [address] Care Team Providers Care Acid Correction Hand Name Role Phone Unavailable Primary Care Provider Unavailabl e Encounter Details Date Type Department Care Team (Late st Contact Info) Description 05/03/2022 Transcribed Document [facility] Radiology [address] [place] [address] Melinda Sherwood MD [address] [place] [address] Social History Tobacco Use Types Packs/Day Years Used Date Smoking Tobacco: Never Assessed Comments Unknown Sex and Gender Information Value Date Recorded Sex Assigned at Not on file Legal Sex Female 1:44 PM CDT Gender Identity Not on file Sexual Orientation Not on file documented as of this encounter Miscellaneous Notes * Cerner Conversion Note - Melinda Sherwood MD - 05/03/2022 11:08 AM EDT Patient: ALYSSA AZUL Age: 62 years Sex: Female : 1960 Associated Diagnoses: None Author: MELINDA SHERWOOD MD-INT Subjective Patient was seen and examined today 05/03/2022. Ongoing mist therapy per wound care. No complaint. Review of Systems Constitutional: Weakness, Fatigue, No [...] Oral, BID Afia-Q: 1 Cap, Oral, BID [place] 5 mg-325 mg oral tablet: 1 Tab, Oral, Q6H, PRN: Pain (Moderate 4-6) PRAVAstatin: 40 mg, Oral, At Bedtime Pepcid: 20 mg, Oral, At Bedtime Vitamin C: 500 mg, Oral, BID acetaminophen: 650 mg, Oral, Q6H, PRN: Pain (Mild 1-3) cefepime + Sodium Chloride 0.9% intravenous solution 50 mL: 1 Gram, 100 mL/Hr, IV Piggyback, [id number] cloNIDine: 0.1 mg, Oral, Q4H, PRN: Other [...] micafungin: 100 mg, 100 mL/Hr, IV Piggyback, [id number] Documented Medications Documented Farxiga 10 mg oral [...] 0.9% 50 mL 1 Gram, IV Piggyback, [id number] famotidine 20 mg tab 20 mg 1 [...] Q12H micafungin sodium 100 mg, IV Piggyback, [id number] omega-3 fish oil 1,000 mg cap 2,000 [...] Problem list: Medical Diabetes / SNOMED CT 151628330 / Confirmed History of obstructive sleep apnea / IMO [id number] / Confirmed, Active Problems (6) Chronic kidney disease (CKD), stage III (moderate) Diabetes History of obstructive sleep apnea Hyperlipidemia Hypertension Paraplegia Objective VS/Measurements Vitals Signs (last 24 hrs) Last Charted Minimum Maximum Temp 98.3 (MAY 03 08:35) 97.8 (MAY 03 05:09) 98.4 (MAY 02 20:05) Apical HR H 108 (MAY 03 08:46) H 108 (MAY 03 08:46) H 134 (MAY 02 18:16) Mon HR 86 (MAY 03 09:00) 86 (MAY 03 05:09) 100 (MAY 02 17:58) Resp Rate 17 (MAY 03 09:00) 17 (MAY 03 05:09) 18 (MAY 02 20:05) SBP H 163 (MAY 03 08:35) 125 (MAY 03 05:09) H 187 (MAY 02 17:58) DBP H 93 (MAY 03 08:35) 74 (MAY 03 05:09) H 104 (MAY 02 17:58) MAP 108 (MAY 03 08:35) 91 (MAY 03 05:09) 154 (MAY 03 01:22) SpO2 99 (MAY 03 09:00) 99 (MAY 03 09:00) 100 (MAY 03 05:09) General: Alert and oriented, No acute distress. [...] mood & affect. Review / Management MAY 03 05:20 140 108 H 31 / H 198 4.4 27 H 1.20 \ MAY 03 05:20 \ L 8.8 / L 4.4 H 387 / L 27.0 \ No Radiology Results Found Results review: Labs (Last four charted values) WBC L 4.4 (MAY 03) L 4.3 (MAY 02) L 4.4 (MAY 01) 4.6 (APR 30) HB L 8.8 (MAY 03) L 8.2 (MAY 02) L 7.6 (MAY 01) L 7.9 (APR 30) HCT L 27.0 (MAY 03) L 26.4 (MAY 02) L 24.6 (MAY 01) L 25.4 (APR 30) Plt H 387 (MAY 03) 317 (MAY 02) 357 (MAY 01) 354 (APR 30) Na 140 (MAY 03) 136 (MAY 02) 140 (MAY 01) 140 (APR 30) K 4.4 (MAY 03) 4.8 (MAY 02) 4.5 (MAY 01) 4.4 (APR 30) Cl 108 (MAY 03) H 117 (MAY 02) H 116 (MAY 01) H 116 (APR 30) CO2 27 (MAY 03) L 16 (MAY 02) 21 (MAY 01) L 15 (APR 30) BUN H 31 (MAY 03) H 28 (MAY 02) 22 (MAY 01) 21 (APR 30) Cr H 1.20 (MAY 03) H 1.10 (MAY 02) 1.00 (MAY 01) H 1.07 (APR 30) Glu R H 198 (MAY 03) H 139 (MAY 02) H 158 (MAY 01) H 137 (APR 30) Ca 9.3 (MAY 03) 8.8 (MAY 02) 8.6 (MAY 01) L 8.2 (APR 30) Lactic 0.7 (APR 29) C 5.2 (APR 28) PT 9.9 (APR 28) INR 0.9 (APR 28) AST 18 (APR 28) ALT 26 (APR 28) ALK P 73 (APR 28) T Bili 0.8 (APR 28) PTN 7.7 (APR 28) ALB L 2.7 (APR 28) . Medication Changes from Previous Midnight to Current New Medications: cloNIDine 0.1 mg, Oral, Tab, Q4H, PRN for Other (See Comment), Routine, Start 05/02/22 18:41:00 EDT, 05/02/22 18:41:00 EDT MELINDA SHERWOOD MD-INT hydrALAZINE 10 mg, IV Push, Inj, Q6H, PRN for Other (See Comment), Routine, Start 05/02/22 18:41:00 EDT, 05/02/22 18:41:00 EDT MELINDA SHERWOOD MD-INT Discontinued Medications: Sodium Chloride 0.9% intravenous solution 1,000 mL [...]
--- OUTSIDE RECORDS SUMMARY | 2025-02-21 13:42 | XMS_ITS | Encounter Summary ---
Author Organization [employer] Address [address] [place] [address] Care Team Providers Care Plastic Fixture Builder Name Role Phone Unavailable Primary Care Provider Unavailabl e Encounter Details Date Type Department Care Team (Late st Contact Info) Description 05/04/2022 Transcribed Document [facility] [place] Family Medicine [address] [place] [address] ProviderFlorentino MD [address] [place] [address] Social History Tobacco Use Types Packs/Day Years Used Date Smoking Tobacco: Never Assessed Comments Unknown Sex and Gender Information Value Date Recorded Sex Assigned at Not on file Legal Sex Female 1:44 PM CDT Gender Identity Not on file Sexual Orientation Not on file documented as of this encounter Miscellaneous Notes * Cerner Conversion Note - Historical ProviderMD - 05/04/2022 2:00 AM CDT Test Hole Driller Details Entered On: 05/04/2022 3:16 EDT Performed On: 05/04/2022 2:00 EDT by Casey Palacios Non Emp [...] No Casey Palacios Non Emp RN - 05/04/2022 3:16 EDT documented in this encounter Plan of Treatment Not on file documented as of this encounter Visit Diagnoses Not on filedocumented in this encounter
--- OUTSIDE RECORDS SUMMARY | 2025-02-21 13:42 | XMS_ITS | Encounter Summary ---
Author Organization [employer] Address [address] [place] [address] Care Team Providers Care Television Station Manager Name Role Phone Unavailable Primary Care Provider Unavailabl e Encounter Details Date Type Department Care Team (Late st Contact Info) Description 02/22/2022 Transcribed Document [facility] [place] Family Medicine [address] [place] [address] ProviderFlorentino MD [address] [place] [address] Social History Tobacco Use Types Packs/Day Years Used Date Smoking Tobacco: Never Assessed Comments Unknown Sex and Gender Information Value Date Recorded Sex Assigned at Not on file Legal Sex Female 1:44 PM CDT Gender Identity Not on file Sexual Orientation Not on file documented as of this encounter Miscellaneous Notes * Cerner Conversion Note - Florentino Lynne MD - 02/22/2022 12:58 AM CDT Height and Weight, Clinical Dosing Entered On: 02/22/2022 0:59 EDT Performed On: 02/22/2022 0:58 EDT by Bridgette Ribera RN-PATIENT CARE BEDSIDE NON-EXEMP Height and Weight, Clinical Dosing Height Source : Estimated Height Entry Format : [place] Height, Feet : 5 ft(Converted to: 152 [...] Body Mass Index : 35.6 kg/m2 (HI) [place] Body Weight : 54 kg Bridgette Ribera RN-PATIENT CARE BEDSIDE NON-EXEMP - 02/22/2022 0:58 EDT documented in this encounter Plan of Treatment Not on file documented as of this encounter Visit Diagnoses Not on filedocumented in this encounter
--- OUTSIDE RECORDS SUMMARY | 2025-02-21 13:42 | XMS_ITS | Encounter Summary ---
Author Organization [employer] Address [address] [place] [id number] Care Team Providers Care Agricultural Service Technician Name Role Phone Unavailable Primary Care Provider Unavailabl e Encounter Details Date Type Department Care Team (Late st Contact Info) Description 02/22/2022 Transcribed Document [facility] [place] Family Medicine [facility] [place] [address] ProviderFlorentino MD [facility] [place] [address] Social History Tobacco Use Types Packs/Day Years Used Date Smoking Tobacco: Never Assessed Comments Unknown Sex and Gender Information Value Date Recorded Sex Assigned at Not on file Legal Sex Female 1:44 PM CDT Gender Identity Not on file Sexual Orientation Not on file documented as of this encounter Miscellaneous Notes * Cerner Conversion Note - Florentino Lynne MD - 02/22/2022 7:02 AM CDT Patient: ALYSSA AZUL Age: 61 Years Sex: Female : 1960 Chief Complaint Cardiac arrest Primary Care Provider JOHN NOT LISTED History of Present Illness 61-year-old female with history of paraplegia since age 8 presents to [facility] in [place] as a transfer from outside facility where [...] of medical record discussion with transferring MD. Review of Systems Unable to assess due to pt's condition Vital Signs T: 37.2 ??C HR: 65(Monitored) RR: 18 BP: 81/44 SpO2: 97% HT: 162.56 cm WT: 94.2 kg BMI: 35.6 Oxygen Settings (Last) Oxygen Therapy Mode: Mechanical ventilation (02/22/22 04:39:00) Physical Exam Based on new provisions and guidance offered in setting of COVID 19 outbreak and in order to preserve personal protective equipment in accordance with the flexibilities announced by [facility] limited examination is performed. General: Ill appearing, not diaphoretic, severe acute distress Head: Normocephalic, atraumatic Eyes: No ocular discharge, no scleral injection, no icterus Ears: Normal external auricles Nose: No rhinorrhea, no epistaxis Throat: Not examined, no difficulty swallowing Pulm: Moderate apparent respiratory distress on vent Cardio: Normal rate, regular rhythm, no peripheral edema GI: non-distended Neuro: Sedated, unable to assess neuro status 2/2 pt's condition Psych: Unable to assess due to pt's condition Skin: stage 4 L hip ulceration, packed Assessment/Plan -Septic shock present on arrival, suspect secondary to pneumonia versus left hip ulceration. - 02/22/2022 01:29: Sepsis re-evaluation was performed. -Broad-spectrum antibiotics, bronchodilators -Intubated and sedated, ABG reviewed, increase FiO2 to 50% -Pulmonology consult for ventilator and critical care management -JAVIER, likely secondary septic shock, gentle IV fluids given recent cardiac arrest, unknown LVEF. -Stat echo, EKG on arrival -cardiology consulted -Norepinephrine for blood pressure support -Fentanyl and propofol for sedation and analgesia - Parenteral analgesics for severe pain. Oral analgesics for mild to moderate pain. - Continue to monitor electrolytes and replete as appropriate - Pt high risk for vte, UFH for vte ppx. - Continue medications for chronic problems - Pt will require inpatient admission for >48 hrs for work up and stabilization of their condition - NSOC: Remains admitted - seen 02/22/2022 07:02:11 I have personally reviewed pertinent laboratory, ekg and imaging results, as well as documentation in the patient's emr. Laboratory and imaging orders per the above plan have been addressed, see orders below. Home medications have been reviewed. Patient's case, assessment and plan have been discussed on this date with rn. Code Status Start: 02/21/22 22:11:00 EDT, Full Code, Continuous Order 1. Cardiac arrest 2. Community acquired pneumonia of left lung 3. Acute kidney injury 4. Septic shock 5. 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 Orders: acetaminophen, 650 mg, Oral, Tab, Q6H, PRN for Pain (Mild 1-3), Routine, Start 02/21/22 22:41:00 EDT, 02/21/22 22:41:00 EDT albuterol, 3 mL, Nebulized Inhalation, Inh, RT_Q4H, PRN for Shortness of Breath, Routine, Start 02/21/22 22:41:00 EDT albuterol-ipratropium, 3 mL, Nebulized Inhalation, Inh, RT_Q4H While Awake, Routine, Start 02/21/22 22:41:00 EDT calcium gluconate, 2 Gram 100 mL, IV Piggyback, Inj, Daily, PRN for Other (See Comment), Routine, Start 02/21/22 22:37:00 EDT, 100 mL/Hr, Infuse Over: 60 Minute(s), 02/21/22 22:37:00 EDT calcium gluconate, 1 Gram 50 mL, IV Piggyback, Inj, Daily, PRN for Other (See Comment), Routine, Start 02/21/22 22:37:00 EDT, 50 mL/Hr, Infuse Over: 60 Minute(s), 02/21/22 22:37:00 EDT calcium gluconate, 2 Gram 100 mL, IV Piggyback, Inj, Q12H, PRN for Other (See Comment), Routine, Start 02/21/22 22:37:00 EDT, 100 mL/Hr, Infuse Over: 60 Minute(s), 02/21/22 22:37:00 EDT fentaNYL, 25 mcg, IV Push, Inj, Q4H While Awake, PRN for Pain (Severe 7-10), Routine, Start 02/21/22 22:41:00 EDT, 02/21/22 22:41:00 EDT fentaNYL 2,000 mcg + NaCl 0.9% Premix Diluent 100 mL, Bag Volume (mL) = 100, Initial Rate: 50 mcg/Hr, IntraVENous, TITRATE, CPOT Equal to 0 to 2, BIS Equal to 30 - 50, Start 02/22/22 1:24:00 EDT guaiFENesin, 1,200 mg, Oral, ER Tab, BID, Routine, Start 02/21/22 22:41:00 EDT, 02/21/22 22:41:00 EDT heparin, 5,000 Units, SubCutaneous, Inj, Q8HInt, Routine, Start 02/21/22 23:00:00 EDT, 02/21/22 22:41:00 EDT hydrALAZINE, 10 mg, IV Push, Inj, Q4H, PRN for Hypertension, Routine, Start 02/21/22 22:41:00 EDT, 02/21/22 22:41:00 EDT labetalol, 10 mg, IV Push, Inj, Q4H, PRN for Hypertension, Routine, Start 02/21/22 22:41:00 EDT, 02/21/22 22:41:00 EDT magnesium sulfate, 2 Gram 50 mL, IV Piggyback, Inj, Q2H, PRN for Other (See Comment), Routine, Start 02/21/22 22:37:00 EDT, 25 mL/Hr, Infuse Over: 2 Hour(s), 02/21/22 22:37:00 EDT magnesium sulfate, 2 Gram 50 mL, IV Piggyback, Inj, Daily, PRN for Other (See Comment), Routine, Start 02/21/22 22:37:00 EDT, 25 mL/Hr, Infuse Over: 2 Hour(s), 02/21/22 22:37:00 EDT methylPREDNISolone, 40 mg, IV Push, Inj, Q8H, Routine, Start 02/21/22 22:41:00 EDT, 02/21/22 22:41:00 EDT NORepinephrine 8 mg + Sodium Chloride 0.9% intravenous solution 250 mL, Bag Volume (mL) = 250, Initial Rate: 0.05 mcg/kg/Min, IntraVENous, titrate, MAP Greater Than or Equal To 65mmHg, Start 02/22/22 0:35:00 EDT ondansetron, 4 mg, IV Push, Inj, Q6H, PRN for Nausea/Vomiting, Routine, Start 02/21/22 22:41:00 EDT, 02/21/22 22:41:00 EDT pantoprazole, 40 mg, IV Push, Inj, Daily, Routine, Start 02/22/22 9:00:00 EDT, 02/21/22 22:41:00 EDT piperacillin-tazobactam + Sodium Chloride 0.9% intravenous solution 50 mL, 2.25 Gram, IV Piggyback, Inj, Q6HInt, infuse over 3 Hour(s), Start 02/22/22 7:00:00 EDT, 16.67 mL/Hr, Indication: Pneumonia potassium chloride, 60 mEq 3 Tab, Oral, CR Tab, Q2H, PRN for Other (See Comment), Routine, Start 02/21/22 22:37:00 EDT, 02/21/22 22:37:00 EDT potassium chloride, 10 mEq 100 mL, IV Piggyback, Inj, Q1H, PRN for Other (See Comment), Routine, Start 02/21/22 22:37:00 EDT, 100 mL/Hr, Infuse Over: 1 Hour(s), 02/21/22 22:37:00 EDT potassium chloride, 20 mEq 1 Tab, Oral, CR Tab, Q2H, PRN for Other (See Comment), Routine, Start 02/21/22 22:37:00 EDT, 02/21/22 22:37:00 EDT propofol 1,000 mg + Premix Diluent 100 mL, Bag Volume (mL) = 100, Initial Rate: 10 mcg/kg/Min, IntraVENous, TITRATE, RASS Equal to 0 to -2, BIS Equal to 30-50, Start 02/22/22 1:41:00 EDT Sodium Chloride 0.45% intravenous solution 1,000 mL, 1,000 mL, Bag Volume (mL) = 1,000, IntraVENous, Rate = 100 mL/Hr, start date 02/22/22 1:52:00 EDT, Routine, 2.06, m2 sodium phosphate, 15 mMole 5 mL, IV Piggyback, Inj, Daily, PRN for Other (See Comment), Routine, Start 02/21/22 22:37:00 EDT, 51 mL/Hr, Infuse Over: 5 Hour(s), 02/21/22 22:37:00 EDT sodium phosphate, 15 mMole 5 mL, IV Piggyback, Inj, Q6H, PRN for Other (See Comment), Routine, Start 02/21/22 22:37:00 EDT, 51 mL/Hr, Infuse Over: 5 Hour(s), 02/21/22 22:37:00 EDT traMADol, 50 mg, Oral, Tab, Q6H, PRN for Pain (Moderate 4-6), Routine, Start 02/21/22 22:41:00 EDT, 02/21/22 22:41:00 EDT vancomycin, 1 Each, MISC, IV Piggyback, Weekly, 02/22/22 21:00:00 EDT Admit to Inpatient Capnography (RT) Consult to Physician Consult to Physician Consult to Physician CR Chest 1 Vw Portable Culture Blood Culture Blood Culture MRSA Surveillance Culture Wound and Stain EC Echo Complete ECG Endotracheal Tube Management Intake and Output Strict Lab Order Instructions to Nursing Lab Order Instructions to Nursing Lab Order Instructions to Nursing Lab Order Instructions to Nursing Notify Provider Laboratory Results NPO (immediate) Platelet Count Resuscitation Status Sequential Compression Device Vancomycin Level Peak Ventilator VTE Prophylaxis - Medical Heparin 5,000 Units, SubCutaneous, Inj, Q8HInt, Routine, Start 02/21/22 23:00:00 EDT, 02/21/22 22:41:00 EDT (KASI RAVI) Sequential Compression Device Start: 02/21/22 22:11:00 EDT, Bilateral, Length: Knee High, While patient is in bed, Continuous Order (KASI RAVI) Problem List/Past Medical History Ongoing No qualifying data Historical No qualifying data No qualifying data available Allergies No Known Allergies Social History Unable to assess due to pt's condition Family History Unable to assess due to pt's condition Diagnostic Results No Radiology Results Found Lab [...] 64 mg/dL 02/21/2022 22:12 EDT Sodium Ur [place] 45 mMole/Liter 02/21/2022 22:12 EDT Urea Nitrogen Urine Random 297 mg/dL 02/21/2022 22:12 EDT Urine Type. U Cath 02/21/2022 22:12 EDT Urine Color Light-Yellow 02/21/2022 22:12 EDT Urine Appearance Clear 02/21/2022 22:12 EDT Urine Specific [place] 1.014 02/21/2022 22:12 EDT Urine pH Dipstick [...] if Indicated Not Indicated 02/21/2022 22:12 EDT Additional Documentation Code Status Start: 02/21/22 22:11:00 EDT, Full Code, Continuous Order documented in this encounter Plan of Treatment Not on file documented as of this encounter Visit Diagnoses Not on filedocumented in this encounter
--- OUTSIDE RECORDS SUMMARY | 2025-02-21 13:42 | XMS_ITS | Encounter Summary ---
Author Organization [employer] Address [address] [place] [id number] Care Team Providers Care Trouble Locator Test Desk Name Role Phone Unavailable Primary Care Provider Unavailabl e Encounter Details Date Type Department Care Team (Late st Contact Info) Description 04/21/2022 Transcribed Document [facility] Family Medicine [facility] [place] [address] ProviderFlorentino MD [address] [place] [address] Social History Tobacco Use Types Packs/Day Years Used Date Smoking Tobacco: Never Assessed Comments Unknown Sex and Gender Information Value Date Recorded Sex Assigned at Not on file Legal Sex Female 1:44 PM CDT Gender Identity Not on file Sexual Orientation Not on file documented as of this encounter Miscellaneous Notes * Cerner Conversion Note - Florentino Lynne MD - 04/21/2022 9:00 AM CDT WOCN Inpatient Documentation Entered On: 04/21/2022 13:42 EDT Performed On: 04/21/2022 11:15 EDT by Edwina Fraire [id number] Therapy WOCN Admission Date : Admit Date 04/08/2022 07:[address] : Diagnosis (9) Altered mental status Unspecified fall, initial encounter Altered mental status, unspecified Sepsis, unspecified organism Urinary tract infection, site not specified Acute kidney failure, unspecified Hyperkalemia Acute pancreatitis without necrosis or infection, unspecified Acidosis Reason for WOCN Visit : Assessment, ongoing, Dressing change Admitting Diagnosis ST : Reason for Admission sepsis, UTI, ARF, hyperkalemia, pancreatitis, meta WOCN Assessment Summary : Wound care team consulted to manage NPWT to left trochanter. Wound care steam gigger at bedside patient on HENRIET[place] surface. Wound care steam gigger removed old dressing 1 pc black foam, cleansed with saline wound wash, pat dry and measured at 7.0cmx6.0cmx1.5cm prepped periwound skin with barrier film and draped, placed medihoney gel to slough areas, placed 1 pc black foam dressing and bridged to thigh and draped. NPWT is operating at 100mmHg. If any changes to skin integrity please consult wound care dept. Edwina Fraire, [id number] Therapy - 04/21/2022 13:32 EDT documented in this encounter Plan of Treatment Not on file documented as of this encounter Visit Diagnoses Not on filedocumented in this encounter
--- OUTSIDE RECORDS SUMMARY | 2025-02-21 13:42 | XMS_ITS | Encounter Summary ---
Author Organization [employer] Address [address] [place] [id number] Care Team Providers Care Custom Tailor Name Role Phone Unavailable Primary Care Provider Unavailabl e Encounter Details Date Type Department Care Team (Late st Contact Info) Description 02/22/2022 Transcribed Document [facility] [place] [address] [place] [address] ProviderFlorentino MD [address] [place] [address] Social History Tobacco Use Types Packs/Day Years Used Date Smoking Tobacco: Never Assessed Comments Unknown Sex and Gender Information Value Date Recorded Sex Assigned at Not on file Legal Sex Female 1:44 PM CDT Gender Identity Not on file Sexual Orientation Not on file documented as of this encounter Miscellaneous Notes * Cerner Conversion Note - Florentino Lynne MD - 02/22/2022 12:13 PM CDT Patient: ALYSSA AZUL Age: 61 [...] had cardiac arrest and was transferred to [facility] [place]. This morning she was on the ventilator alert, awake without shortness of breath. Tolerated PS. Continues to have metabolic acidosis. ID consulted for sepsis. Nephrology consulted for acute-chronic renal failure. Poor UOP today. Hypotensive earlier on levophed, but this has since been stopped. She denies hip pain. + cough, mild anxiety. + edema. Review of Systems ROS as per HPI otherwise negative. Health Status Allergies: Allergic Reactions (Selected) No Known Allergies, Allergies (1) Active Reaction No Known Allergies None Documented Current medications: (Selected) Inpatient Medications Ordered Chloraseptic Menthol 1.4% topical spray: 1 Vesta, Oral, Q2H, PRN: Sore Throat Dextrose 50% injection: 12.5 Gram, IV Push, Q15Min, PRN: Other (See Comment) Dextrose 50% injection: 25 Gram, IV Push, Q15Min, PRN: Other (See Comment) Dextrose 50% injection: 25 Gram, IV Push, Q15Min, PRN: Other (See Comment) Dextrose 50% injection: 25 Gram, IV Push, Q15Min, PRN: Other (See Comment) Mucinex: 1,200 mg, Oral, BID Zosyn + Sodium Chloride 0.9% intravenous solution 50 mL: 2.25 Gram, 16.67 mL/Hr, IV Piggyback, Q8HInt acetaminophen: 650 mg, Oral, Q6H, PRN: Pain (Mild 1-3) albuterol 2.5 mg/3 mL (0.083%) inhalation solution: 3 mL, Nebulized Inhalation, RT_Q4H, PRN: Shortness of Breath albuterol-ipratropium 2.5 mg-0.5 mg/3 mL inhalation solution: 3 mL, Nebulized Inhalation, RT_QID fentaNYL: 25 mcg, IV Push, Q4H While Awake, PRN: Pain (Severe 7-10) glucagon: 1 mg, IntraMuscular, Q15Min, PRN: Other (See Comment) glucose 4 g oral tablet, chewable: 16 Gram, 4 Tab, Chew, Q15Min, PRN: Other (See Comment) glucose 40% oral gel: 15 Gram, 37.5 mL, Oral, Q15Min, PRN: Other (See Comment) heparin: 5,000 Units, SubCutaneous, Q8HInt insulin glargine: 10 Units, SubCutaneous, 1-Time insulin lispro sliding scale: Scale A:, SubCutaneous, AC and at Bedtime ondansetron: 4 mg, IV Push, Q6H, PRN: Nausea/Vomiting pantoprazole: 40 mg, IV Push, Daily sodium bicarbonate 50 mEq per amp (adult): 50 mEq, IV Push, 1-Time sodium bicarbonate injection 100 mEq + Dextrose 5% in Water intravenous solution 1,000 mL: 100 mL/Hr, IntraVENous traMADol: 50 mg, Oral, Q6H, PRN: Pain (Moderate 4-6) Documented Medications Documented [place]-3 1000 mg oral capsule: 1 Cap, Oral, [...] Daily, 0 Refill(s), Medications (22) Active Scheduled: (8) albuterol-ipratropium inh 3 mL 3 mL, Nebulized Inhalation, RT_QID guaiFENesin 600 mg ER tab 1,200 mg 2 Tab, Oral, BID heparin 5,000 units/1 mL inj 5,000 Units 1 mL, SubCutaneous, Q8HInt insulin glargine 1 unit/0.01 mL inj 10 Units 0.1 mL, SubCutaneous, 1-Time insulin lispro 1 unit/0.01 mL inj Scale A:, SubCutaneous, AC and at Bedtime pantoprazole 40 mg inj 40 mg, IV Push, Daily piperacillin-tazobactam + NaCl 0.9% *ADV* 50 mL 2.25 Gram, IV Piggyback, Q8HInt sodium bicarbonate 50 mEq/50 ml inj syr 50 mEq 50 mL, IV Push, 1-Time Continuous: (1) sodium bicarbonate 100 mEq + Dextrose 5% in Water 1,000 mL 1,000 mL, IntraVENous, 100 mL/Hr PRN: (13) acetaminophen 325 mg tab [...] Push, Q15Min fentaNYL 100 mcg/2 mL inj 25 mcg 0.5 mL, IV Push, Q4H While Awake glucagon 1 mg/1 mL inj 1 mg 1 mL, IntraMuscular, Q15Min glucose 4 g tab 16 Gram 4 Tab, Chew, Q15Min glucose 40% gel 15 g 15 Gram 37.5 mL, Oral, Q15Min ondansetron 4 mg/2 mL inj 4 mg 2 mL, IV Push, Q6H phenol 1.4% throat spray 1 Vesta, Oral, Q2H traMADol 50 mg tab 50 mg 1 Tab, Oral, Q6H Problem list: No qualifying data available Histories Past Medical History: No active or resolved past medical history items have been selected or recorded. Family History: No family history items have been selected or recorded. Procedure history: No active procedure history items have been selected or recorded. Social History Social & Psychosocial Habits No Data Available . Physical Examination Intake & Output Totals Last 24 Hours (7a-7a) Intake (28 Events) Continuous Infusions (453.3018 mL) Medications (604.61 mL) Output (4 Events) Urine Voided (Volume) (250 mL) Input Total: 1057.9118 mL Output Total: 250 mL Balance: 807.9118 mL VS/Measurements Vitals Signs (last 24 hrs) Last Charted Minimum Maximum Temp 99.6 (FEB 22 08:00) 98.9 (FEB 22 00:15) 99 (FEB 22 04:00) Mon HR 88 (FEB 22 11:41) 52 (FEB 22 07:15) 88 (FEB 22 11:41) Resp Rate H 32 (FEB 22 11:41) 18 (FEB 22 01:00) H 45 (FEB 22 10:30) SBP 117 (FEB 22 10:30) L 76 (FEB 22 09:15) H 192 (FEB 22 00:15) DBP L 59 (FEB 22 10:30) L 43 (FEB 22 09:15) 86 (FEB 22 00:15) MAP 85 (FEB 22 10:30) 55 (FEB 22 09:15) 124 (FEB 22 00:15) SpO2 98 (FEB 22 11:41) L 92 (FEB 22 09:00) 100 (FEB 22 00:58) General: Alert and oriented, No acute distress, Appearance. Eye: Pupils are equal, round and reactive to light, Normal conjunctiva. Sclera: Both eyes, Within normal limits. HENT: Normocephalic, Normal hearing, Oral mucosa is moist. Neck: Supple, Non-tender. Respiratory: Respirations are non-labored, Breath sounds are equal, scattered crackles LLL. Cardiovascular: Normal rate, Regular rhythm, No murmur, No gallop, No edema. Gastrointestinal: Soft, Non-tender, Non-distended, Normal bowel sounds. Musculoskeletal: Normal range of motion, Normal strength, No tenderness, contractures. Integumentary: Warm, Dry, [place], No rash. Neurologic: Alert, Oriented, paraplegia, bilat upper ext weakness. Orientation: To person, To place, To time. Psychiatric: Cooperative, Appropriate mood & affect, Normal judgment. Review / Management FEB 22 04:00 146 H 120 H 50 / H 229 4.4 L 12 H 2.83 \ FEB 22 04:00 \ L 8.1 / 8.9 218 / L 26.0 \ Blood Gases (Current Encounter/Past 24 Hours) pH Art 7.16 CRIT 02/22/2022 10:01 pCO2 Art 29.8 LOW 02/22/2022 10:01 pO2 Art 82.3 02/22/2022 10:01 HCO3 Art 10.1 LOW 02/22/2022 10:01 BE Art -17.1 LOW 02/22/2022 10:01 sO2 Art 94.3 LOW 02/22/2022 10:01 tHb Art 8.4 LOW 02/22/2022 10:01 ctO2 11.0 NA 02/22/2022 10:01 FIO2 Art 35.0 NA 02/22/2022 10:01 Delivery Device Type Art Ventilator 02/22/2022 10:01 Temperature, F Art 98.6 NA 02/22/2022 10:01 Art Blood Gas (ABG) Site Right Radial 02/22/2022 10:01 Acceptable Huang's Test Art Acceptable 02/22/2022 10:01 Ventilator Mode Art Assist Control Ventilation 02/22/2022 10:01 Tidal Volume Set Art 400.0 NA 02/22/2022 10:01 Set Rate Art 18 NA 02/22/2022 10:01 Respiratory Rate Art 21.0 NA 02/22/2022 10:01 CPAP/PEEP Art 5.0 NA 02/22/2022 10:01 ABG Num of Draw Attempts 1 NA 02/22/2022 10:01 PaO2/FiO2 calculated 235 NA 02/22/2022 10:01 CMP Results (Current Encounter/Past 24 Hours) Protein Total 6.3 Gram/dL LOW 02/22/2022 00:55 A/G Ratio 0.4 LOW 02/22/2022 00:55 Creatinine Level 2.83 mg/dL UT 02/22/2022 06:38 eGFR 21 mL/min/1.73m2 LOW 02/22/2022 06:38 Globulin 4.4 Gram/dL 02/22/2022 00:55 eGFR NonAfrican 17 mL/min/1.73m2 LOW 02/22/2022 06:38 Bun/Creatinine 17.7 02/22/2022 06:38 Sodium Level 146 mmol/L 02/22/2022 06:38 Potassium Level 4.4 mmol/L 02/22/2022 06:38 Chloride Level 120 mmol/L UT 02/22/2022 06:38 Carbon Dioxide Level 12 mmol/L LOW 02/22/2022 06:38 Anion Gap 18 02/22/2022 06:38 Alk Phos 76 Units/Liter 02/22/2022 00:55 ALT 21 Units/Liter 02/22/2022 00:55 AST 17 Units/Liter 02/22/2022 00:55 Blood Urea Nitrogen 50 mg/dL UT 02/22/2022 06:38 Glucose Level 229 mg/dL UT 02/22/2022 06:38 Albumin Level 1.9 Gram/dL LOW 02/22/2022 00:55 Bilirubin Total 0.3 mg/dL 02/22/2022 00:55 Calcium Level 6.8 mg/dL LOW 02/22/2022 06:38 Magnesium Level 2.2 mg/dL 02/22/2022 08:49 Cardiac Markers (Current Encounter/Past 24 Hours) CK 119 Units/Liter 02/22/2022 00:55 ProBNP 97134 pg/mL HI 02/22/2022 00:55 Coagulation Results (Current Encounter/Past 24 Hours) No Coagulation Results Found (Past 24 Hours) Radiology Results (Last 48 hours) [id number] -- 02/22/2022 00:01 CR Chest 1 Vw [...] by Dr. Jaycob Wynne.Transcribed by Quincy Sanchez PA-C.Gopal have personally viewed, interpreted and dictated the [...] (FEB 21) ALB L 1.9 (FEB 21) . Impression and Plan cardiopulmonary arrest secondary to metabolic acidosis and respiratory failure - improved. neuro status appears back to baseline. Acute respiratory failure - extubated this morning. continue bipap as needed for increased wob due to metabolic acidosis Sepsis, septic shock - initially on levophed with vent sedation. Off levophed earlier today. Received fluids overnight. Acute - chronic renal failure - UOP poor. discussed with nephrology. Acute metabolic acidsois - Giving additional bicarb. may need diuresis. Started on bicarb gtt earlier today. LLL pneumonia - continue HHN, ID consulted for abx. Left hip decub - surgery consulted for wound care. Abx per ID. Vanc stopped due to elevated levels and worsening renal function. No MRSA cultures or history of MRSA. DM - given steroids overnight - now stopped. Start SSI. Given single dose of lantus. AG not elevated HTN - bp rx on hold hyperlipidemia paraplegia Full code GI ppx - started on PPI DVT ppx - started on heparin sq 80 min CCT Discussed with family, nursing, RT. documented in this encounter Plan of Treatment Not on file documented as of this encounter Visit Diagnoses Not on filedocumented in this encounter
--- OUTSIDE RECORDS SUMMARY | 2025-02-21 13:42 | XMS_ITS | Encounter Summary ---
Author Organization [employer] Address [address] [place] [address] Care Team Providers Care Screen Printing Inspector Name Role Phone Unavailable Primary Care Provider Unavailabl e Encounter Details Date Type Department Care Team (Late st Contact Info) Description 02/22/2022 Transcribed Document [facility] [place] [facility] [place] [address] ProviderFlorentino MD [facility] [place] [address] Social History Tobacco Use Types Packs/Day Years Used Date Smoking Tobacco: Never Assessed Comments Unknown Sex and Gender Information Value Date Recorded Sex Assigned at Not on file Legal Sex Female 1:44 PM CDT Gender Identity Not on file Sexual Orientation Not on file documented as of this encounter Miscellaneous Notes * Cerner Conversion Note - Florentino Lynne MD - 02/22/2022 7:49 AM CDT Patient: ALYSSA AZUL Age: 61 years Sex: Female : 1960 Associated Diagnoses: None Author: KEILY CUNNINGHAM DO Subjective patient admitted after midnight. patient admitted to [facility] on 02/17/22, temp in ER [...] of left buttock ulceration again by dr Hlil. She had code blue cardiac arrest on [...] surrounding soft tissue necrosis. no pathology sent. Health Status Current medications: Medications (28) Active Scheduled: (7) albuterol-ipratropium inh 3 mL 3 mL, Nebulized Inhalation, RT_Q4H While Awake guaiFENesin 600 mg ER tab 1,200 mg 2 Tab, Oral, BID heparin 5,000 units/1 mL inj 5,000 Units 1 mL, SubCutaneous, Q8HInt methylPREDNISolone SUCCinate 40 mg/1 mL inj PF 40 mg 1 mL, IV Push, Q8H pantoprazole 40 mg inj 40 mg, IV Push, Daily piperacillin-tazobactam + NaCl 0.9% *ADV* 50 mL 2.25 Gram, IV Piggyback, Q6HInt Vancomycin IV Dosing by Pharmacy 1 Each, IV Piggyback, Weekly Continuous: (4) fentaNYL/NaCl 0.9% 2,000 mcg + Premix Diluent NaCl 0.9% TITRATE 100 mL 100 mL, IntraVENous NaCl 0.45% 1,000 mL 1,000 mL, IntraVENous, 100 mL/Hr NORepinephrine 8 mg + NaCl 0.9% T ITRATE 250 mL 250 mL, IntraVENous propofol 1,000 mg + Premix Diluent Titrate 100 mL 100 mL, IntraVENous PRN: (17) acetaminophen 325 mg tab 650 mg 2 Tab, Oral, Q6H albuterol 0.083% inh soln 3 mL 3 mL, Nebulized Inhalation, RT_Q4H calcium gluconate 1 Gram 50 mL, IV Piggyback, Daily calcium gluconate 2 Gram 100 mL, IV Piggyback, Daily calcium gluconate 2 Gram 100 mL, IV Piggyback, Q12H fentaNYL 100 mcg/2 mL inj 25 mcg 0.5 mL, IV Push, Q4H While Awake hydrALAZINE 20 mg/1 mL inj 10 mg 0.5 mL, IV Push, Q4H labetalol 100 mg/20 mL inj 10 mg 2 mL, IV Push, Q4H magnesium sulfate 2 Gram 50 mL, IV Piggyback, Daily magnesium sulfate 2 Gram 50 mL, IV Piggyback, Q2H ondansetron 4 mg/2 mL inj 4 mg 2 mL, IV Push, Q6H potassium chloride 10 mEq 100 mL, IV Piggyback, Q1H potassium chloride CR 20 mEq tab 20 mEq 1 Tab, Oral, Q2H potassium chloride CR 20 mEq tab 60 mEq 3 Tab, Oral, Q2H sodium phosphate 15 mMole 5 mL, IV Piggyback, Daily sodium phosphate 15 mMole 5 mL, IV Piggyback, Q6H traMADol 50 mg tab 50 mg 1 Tab, Oral, Q6H Objective Intake and Output Intake & Output Totals Last 24 Hours (7a-7a) Intake (28 Events) Continuous Infusions (453.3018 mL) Medications (604.61 mL) Output (4 Events) Urine Voided (Volume) (250 mL) Input Total: 1057.9118 mL Output Total: 250 mL Balance: 807.9118 mL VS/Measurements Vitals Signs (last 24 hrs) Last Charted Minimum Maximum Temp 99 (FEB 22 04:00) 98.9 (FEB 22 00:15) 99 (FEB 22 04:00) Mon HR 65 (FEB 22:45) 59 (FEB 22 01:03) 74 (FEB 22 00:30) Resp Rate 18 (FEB 22:45) 18 (FEB 22 01:00) H 30 (FEB 22 00:45) SBP L 81 (FEB 22:45) L 78 (FEB 22 01:00) H 192 (FEB 22 00:15) DBP L 44 (FEB 22 06:45) L 44 (FEB 22 01:00) 86 (FEB 22 00:15) MAP 57 (FEB 22 06:45) 57 (FEB 22 01:00) 124 (FEB 22 00:15) SpO2 97 (FEB 22 06:45) 95 (FEB 22 00:15) 100 (FEB 22 00:58) General: No acute distress, Not alert and oriented. Eye: Pupils are equal, round and reactive to light, Normal conjunctiva. HENT: Normocephalic, old heeled trach site in place. Neck: Supple. Respiratory: intubated on 40% fio2 and 5 of peep. Cardiovascular: Normal rate, Regular rhythm, No edema. Gastrointestinal: rLQ urostomy in place with clear urine. Musculoskeletal: LEFT posterior lateral hip with 8 inch x 5 inch ulceration with involvement of some muscle suspected and undermining. wound is mostly dry but with black necrotic areas overlying tissue throughout. no significant erythema to surrounding skin. no visible bone. . Neurologic: occasionally opens her eyes, Not alert, Not oriented. Psychiatric: Not cooperative, Not appropriate mood & affect. Results Review General results Interpretation: FEB 22 04:00 146 H 120 H 50 / H 229 4.4 L 12 H 2.83 \ FEB 22 04:00 \ L 7.1 / 8.9 218 / L 22.9 \ Labs (Last four charted values) WBC 8.9 (JAN 25) H 18.6 (CATRACHITA 24) HB L 7.1 (CATRACHITA 25) L 8.7 (CATRACHITA 24) HCT L 22.9 (CATRACHITA 25) L 27.7 (CATRACHITA 24) Plt 218 (CATRACHITA 25) H 373 (CATRACHITA 24) Na 146 (CATRACHITA 25) 144 (CATRACHITA 24) K 4.4 (CATRACHITA 25) 4.3 (CATRACHITA 24) Cl H 120 (CATRACHITA 25) H 119 (CATRACHITA 24) CO2 L 12 (CATRACHITA 25) L 13 (CATRACHITA 24) BUN H 50 (CATRACHITA 25) H 46 (CATRACHITA 24) Cr H 2.83 (CATRACHITA 25) H 2.60 (CATRACHITA 24) Glu R H 229 (CATRACHITA 25) H 225 (CATRACHITA 24) Ca L 6.8 (CATRACHITA 25) L 6.9 (CATRACHITA 24) AST 17 (CATRACHITA 24) ALT 21 (CATRACHITA 24) ALK P 76 (CATRACHITA 24) T Bili 0.3 (CATRACHITA 24) PTN L 6.3 (CATRAHCITA 24) ALB L 1.9 (CATRACHITA 24) No Radiology Results Found Impression and Plan patient admitted after midnight. i spoke with my overnight partner, surgery was not made aware of transfer unfortunately. i spoke to dr martini who graciously agrees to see patient. assessment acute resp failure - pulm consulted - extuabted today septic shock - wean levophed - continue antibiotics, follow cultures JAVIER - nephrology consulted - iv bicarb puch given, stop ivf due to volume. - monitor renal function closely anemia - repeat H&H NOW - transfuse for hgb < 7.0 paraplegic - noted large stage III sacral decubitus ulcer - s/p bedside debridement x 2 at OSH and OR debridement at 02/21 - surgey consult appreciated - continue wound care and iv antibiotics pneumonia - on cefepime and vanco and osh - id consulted history of urostomy - noted, date deficient I spoke to transfer center at 0922- they are NOT able to even list the patient due to divert status. d/w nephrology d/w pulm- patient extubated today time spent: 35 min Keily Richards Hospitalist pager- [phone] Electronically signed by Sumaya, [facility] Conversion Hydraulic Press Servicer Cerner at 12/21/2022 5:10 PM CDT documented in this encounter Plan of Treatment Not on file documented as of this encounter Visit Diagnoses Not on filedocumented in this encounter
--- OUTSIDE RECORDS SUMMARY | 2025-02-21 13:43 | XMS_ITS | Encounter Summary ---
Author Organization [employer] Address [address] [place] [id number] Care Team Providers Care Clinical Research Management Associate Name Role Phone Unavailable Primary Care Provider Unavailabl e Encounter Details Date Type Department Care Team (Late st Contact Info) Description 04/08/2022 Transcribed Document [facility] [place] Family Medicine [address] [place] [address] ProviderFlorentino MD [address] [place], [place] [id number] Social History Tobacco Use Types Packs/Day Years Used Date Smoking Tobacco: Never Assessed Comments Unknown Sex and Gender Information Value Date Recorded Sex Assigned at Not on file Legal Sex Female 1:44 PM CDT Gender Identity Not on file Sexual Orientation Not on file documented as of this encounter Miscellaneous Notes * Cerner Conversion Note - Florentino ProviderMD - 04/08/2022 5:58 AM CDT [place] Suicide Severity Rating Scale (C-SSRS) Entered On: 04/08/2022 6:48 EDT Performed On: 04/08/2022 6:48 EDT by Alma Shore Rn [place] Suicide Severity Rating Scale (C-SSRS) CSSRS Past Month Wish to be : Unable to obtain CSSRS Past Month Suicidal Thoughts : Unable to obtain CSSRS Lifetime Suicide Behavior : Unable to obtain Suicide Severity Rating Score : -105 Suicide Severity Rating : Reassessment required Alma Shore Rn - 04/08/2022 6:48 EDT documented in this encounter Plan of Treatment Not on file documented as of this encounter Visit Diagnoses Not on filedocumented in this encounter
--- OUTSIDE RECORDS SUMMARY | 2025-02-21 13:43 | XMS_ITS | Encounter Summary ---
Author Organization [employer] Address [address] [place] [id number] Care Team Providers Care Locum Tenens Hospitalist Name Role Phone Unavailable Primary Care Provider Unavailabl e Encounter Details Date Type Department Care Team (Late st Contact Info) Description 04/08/2022 Transcribed Document [facility] [place] [facility] [place] [address] ProviderFlorentino MD [address] [place] [address] Social History Tobacco Use [...] Note - Florentino Lynne MD - 04/08/2022 6:07 PM CDT Patient: ALYSSA AZUL Age: 61 [...] complaints of increasing confusion and fall at [facility] facility. Per documentation, the patient is a [...] She was discharged from our facility to [facility] facility. On 04/08, pulmonary is being asked [...] obtain Family History Unable to obtain ICU day: 1 Vent day:1 Central line: 04/08 Review of Systems Unable [...] solution 100 mL: Corrective Insulin Drip, IntraVENous Lokelma: 10 Gram, Oral, TID NORepinephrine injection 8 mg + NaCl 0.9% [...] mg, 300 mL, 300 mL/Hr, IV Piggyback, [id number] calcium gluconate: 1 Gram, 10 mL, 60 mL/Hr, IV Piggyback, Q1H, PRN: Other (See Comment) calcium gluconate: 2 Gram, 100 mL, 100 mL/Hr, IV Piggyback, Q1H, PRN: Other (See Comment) doxycycline + Sodium Chloride 0.9% intravenous solution 100 mL: 100 mg, 50 mL/Hr, IV Piggyback, [id number] fentaNYL injection 2,000 mcg + NaCl 0.9% [...] mL: 500 mg, 16.67 mL/Hr, IV Piggyback, [id number] micafungin: 100 mg, 100 mL/Hr, IV Piggyback, [id number] phenylephrine injection 80 mg + NaCl 0.9% for drip 250 mL: TITRATE, IntraVENous potassium chloride: 10 mEq, 50 mL, 50 mL/Hr, IV Piggyback, Q30Min, PRN: Other (See Comment) propofol injection 1,000 mg + Premix Diluent for Drip 100 mL: TITRATE, IntraVENous sodium bicarbonate 150 mEq + Dextrose 5% in Water intravenous solution 1,000 mL: 150 mL/Hr, IntraVENous sodium phosphate + Sodium Chloride [...] Bedtime, 0 Refill(s), Medications (36) Active Scheduled: (11) #NaCl 0.9% *FLUSH* inj 10 mL 10 mL, IV Push, Q12H doxycycline hyclate + NaCl 0.9% 100 mL 100 mg, IV Piggyback, [id number] famotidine 20 mg/2 mL inj 20 mg [...] *PREMIX* 600 mg 300 mL, IV Piggyback, [id number] meropenem + NaCl 0.9% 50 mL 500 mg, IV Piggyback, [id number] micafungin sodium 100 mg, IV Piggyback, [id number] sodium zirconium cyclosilicate 10 g pwd 10 Gram 1 Packet, Oral, TID Continuous: (10) fentaNYL/NaCl 0.9% 2,000 mcg + Premix Diluent NaCl 0.9% TITRATE 100 mL 100 mL, IntraVENous insulin regular 100 Units + NaCl 0.9% 100 mL 100 mL, IntraVENous NORepinephrine 8 [...] in Water 1,000 mL 1,000 mL, IntraVENous, 150 mL/Hr vasopressin 40 Units [0.03 Units/min] + Dextrose 5% in Water TITRATE 100 mL 100 mL, IntraVENous, 4.5 mL/Hr PRN: (15) #NaCl 0.9% *FLUSH* inj 10 mL 10 mL, IV Push, See Comment calcium gluconate 1 Gram 10 mL, IV Piggyback, Q1H calcium gluconate 2 Gram 100 mL, IV Piggyback, Q1H dextrose [...] History of obstructive sleep apnea / IMO [id number] / Confirmed Diabetes / SNOMED CT [id number] / Confirmed, Active Problems (6) Chronic kidney disease (CKD), stage III (moderate) Diabetes History of obstructive sleep apnea Hyperlipidemia Hypertension Paraplegia Physical Examination VS/Measurements Vitals Signs (last 24 hrs) Last Charted Minimum Maximum Temp L 94.1 (APR 08 07:14) L 94.1 (APR 08 07:14) L 95.4 (APR 08 05:58) Mon HR 92 (APR 08 17:30) 42 (APR 08 07:45) 92 (APR 08 17:15) Periph HR 66 (APR 08 05:58) 66 (APR 08 05:58) 66 (APR 08 05:58) Resp Rate H 26 (APR 08 17:30) 14 (APR 08 05:58) H 54 (APR 08 10:15) SBP L 89 (APR 08 11:15) L 56 (APR 08 07:45) 135 (APR 08 08:00) DBP L 54 (APR 08 11:15) L 28 (APR 08 07:30) 63 (APR 08 10:15) MAP 68 (APR 08 17:30) 38 (APR 08 07:30) 106 (APR 08 14:45) SpO2 99 (APR 08 17:30) L 92 (APR 08 07:45) 100 (APR 08 06:43) General: Sedated on vent. RASS -4. Eye: Pupils are equal, round and reactive to light, Normal conjunctiva. HENT: Normocephalic, Oral mucosa is moist. Neck: Supple, No lymphadenopathy. Respiratory: Breath sounds are equal, Symmetrical chest wall expansion. Cardiovascular: Normal rate, Regular rhythm. Gastrointestinal: Soft, Non-distended. Support: Gastric tube ( Nasal ). Genitourinary: Support: Urostomy. Musculoskeletal: No swelling, No deformity. Integumentary: Warm, Dry, Left gluteal wound vac present. Neurologic: Sedated on vent. RASS -4. Psychiatric: Unable to assess. Review / Management Results review: Labs (Last four charted values) WBC C 31.3 (APR 08) C 35.4 (APR 08) HB L 10.8 (APR 08) L 8.9 (APR 08) HCT 36.9 (APR 08) L 29.7 (APR 08) Plt 356 (APR 08) 321 (APR 08) Na H 147 (APR 08) 144 (APR 08) L 133 (APR 08) K H 5.8 (APR 08) C 6.5 (APR 08) C 8.7 (APR 08) Cl H 115 (APR 08) H 119 (APR 08) H 114 (APR 08) CO2 L 5 (APR 08) L 6 (APR 08) L 3 (APR 08) BUN C 82 (APR 08) C 83 (APR 08) C 83 (APR 08) Cr H 5.40 (APR 08) H 5.80 (APR 08) H 6.20 (APR 08) Glu R H 295 (APR 08) H 196 (APR 08) 99 (APR 08) Ca L 7.3 (APR 08) L 7.7 (APR 08) 8.9 (APR 08) Lactic C 8.5 (APR 08) C 5.3 (APR 08) PT 10.5 (APR 08) INR 1.0 (APR 08) AST 25 (APR 08) 15 (APR 08) ALT 18 (APR 08) 19 (APR 08) ALK P 81 (APR 08) 95 (APR 08) T Bili 0.6 (APR 08) 0.6 (APR 08) PTN 6.4 (APR 08) 8.1 (APR 08) ALB L 2.5 (APR 08) L 3.0 (APR 08) Lipase H 1603 (APR 08) . APR 08 13:20 H 147 H 115 C 82 / H 295 H 5.8 L 5 H 5.40 \ APR 08 06:09 \ L 10.8 / C 31.3 356 / 36.9 \ Blood Gases (Current Encounter/Past 24 Hours) pH Art 7.00 CRIT 04/08/2022 14:19 pCO2 Art 16.5 CRIT 04/08/2022 14:19 pO2 Art 243.0 HI 04/08/2022 14:19 HCO3 Art 4.1 LOW 04/08/2022 14:19 BE Art -25.4 LOW 04/08/2022 14:19 sO2 Art >99.1 04/08/2022 13:43 tHb Art 9.2 LOW 04/08/2022 14:19 FHHb <2.4 NA 04/08/2022 13:43 ctO2 12.2 NA 04/08/2022 07:35 FIO2 Art 50 NA 04/08/2022 13:43 Delivery Device Type Art Ventilator NA 04/08/2022 13:43 Temperature, F Art 98.6 NA 04/08/2022 13:43 Art Blood Gas (ABG) Site Arterial Line NA 04/08/2022 13:43 Acceptable Huang's Test Art Non-Applicable NA 04/08/2022 13:43 Ventilator Mode Art AC NA 04/08/2022 13:43 Tidal Volume Set Art 500.0 NA 04/08/2022 13:43 Oxygen Flow Rate Art 3.0 NA 04/08/2022 07:35 Set Rate Art 26.0 NA 04/08/2022 13:43 Respiratory Rate Art 26.0 NA 04/08/2022 13:43 CPAP/PEEP Art 5.0 NA 04/08/2022 13:43 Comment Art supine NA 04/08/2022 13:43 ABG Num of Draw Attempts 1 NA 04/08/2022 13:43 PaO2/FiO2 calculated 486 NA 04/08/2022 13:43 Radiology Results (Last 48 hours) [id number] -- 04/08/2022 07:53 CR Chest 1 Vw [...] Using Seldinger technique a 15 cm 13 [place] triplelumen temporary dialysis catheter was placed with tip positioned in theSVC. Both lumens flushed well and aspirated without resistance. Catheterwas secured to the skin with 2-0 nylon suture. Procedure was welltolerated.IMPRESSION:1. Successful placement right jugular 13 [place] triple lumen temporarydialysis catheter.2. Sonographic and fluoroscopic guidance utilized with images acquired. ECHO done on 03/09/22: Impression: Normal sized [...] Negative for RSV, COVID-19, and flu A/B Cardiovascular Severe sepsis with shock, source not clear at this point, ?? renal vs others. Echocardiogram done on 03/09/2022. EF 55%. Normal systolic function. Moderate LVH. Indeterminate diastolic function. No significant valvular heart disease. ID Severe sepsis with shock Leukocytosis Recent Klebsiella pneumonia Left gluteal decub ulcer requiring previous debridement, now with wound vac Neuro Now sedated on vent Baseline paraplegia Renal Acute kidney injury. Non oliguric type. CKD III, baseline creatinine 1.6 per documentation Severe metabolic acidosis with elevated anion gap. Electrolyte disturbances Severe hyperkalemia Lactic acidosis GI Acute pancreatitis. CT abdomen noted, no biliary dilation, Hyperammonemia Endocrine T2DM with hyperglycemia. Glycemic control Hematology/Oncology Leukocytosis Anemia Metformin toxicity. Acute metabolic encephalopathy. Plan Vent bundle. Patient is critically ill with severe metabolic acidosis we will defer spontaneous awakening trial spontaneous breathing trial. Current vent settings: AC 18, TV 400, PEEP 5, and FiO2 100%, Initial ABG showed severe metabolic acidosis, vent settings changed to rate of 26, and TV 480, will repeat ABG in one hour. Further follow-up on the ABG showed improvement of acidosis but still significant acidosis with pH 7.0 Sedation: Fentanyl propofol for goal RASS -2 CT head, chest, abdomen/pelvis pending Hemodynamics: On levo for MAP > 65, add vaso Check echo Antibiotics: Zosyn, Dasha Send pneumonia PCR Send full respiratory viral PCR Check MRSA Blood cultures pending Urine culture pending Nephrology consult pending Repeat labs upon arrival to ICU Insert NG/corpak Nutrition: Currently NPO Increase Lactulose to 20gm Q8h Glycemic control: add SSI Q6h Prophylaxis: Pepcid, add Heparin AM labs and imaging Addendum: At 18:35 patient was evaluated again: -Patient on the mechanical ventilation, RASS score of -4, on 3 pressors Levophed vasopressin and sybil-, on propofol and fentanyl. -No vent dyssynchrony. ABG ordered stat Showed pH of 7.06, PCO2 20.1, bicarb 5.7. Patient on bicarb drip that was increased to 115 from 125. -Lactic acidosis trending up 8.5 we will continue to trend lactic acid q4 hours. -Given patient was on metformin at home with high lactic acid and acute renal failure this is likely metformin induced lactic acidosis and renal failure. -Case discussed with Nephrology and will start pt on HD. -CT abd showed mild right hydronephrosis, will consult urology to further evaluate. -UA was reviewed and was positive for leukoestrates, but negative for nitrate. -Given pt on two pressors, and IVF, will add hydrocortisone and fludrocortisone. -Spoke to the nurse at the bedside and plan of care was updated. I have personally evaluated the patient; Obtained history, performed physical examination, reviewed laboratory studies. I have reviewed images independent of radiologist. I have actively directed the medical care, formulated diagnosis, and the plan of care. Patient requires a high complexity of decision making for assessment. 77 minutes critical care time excluding procedures. documented in this encounter Plan of Treatment Not on file documented as of this encounter Visit Diagnoses Not on filedocumented in this encounter
--- OUTSIDE RECORDS SUMMARY | 2025-02-21 13:43 | XMS_ITS | Encounter Summary ---
Author Organization [employer] [facility] Address [address] [place] [id number] Care Team Providers Care Hse Manager Name Role Phone Unavailable Primary Care Provider Unavailabl e Encounter Details Date Type Department Care Team (Late st Contact Info) Description 03/09/2022 Transcribed Document [facility] [place] [facility] [place] [address] ProviderFlorentino MD [place] [address] Social History Tobacco Use Types Packs/Day Years Used Date Smoking Tobacco: Never Assessed Comments Unknown Sex and Gender Information Value Date Recorded Sex Assigned at Not on file Legal Sex Female 1:44 PM CDT Gender Identity Not on file Sexual Orientation Not on file documented as of this encounter Miscellaneous Notes * Cerner Conversion Note - Florentino ProviderMD - 03/09/2022 12:05 PM CDT Treatment Intervention, PT Entered On: 03/13/2022 11:36 EDT Performed On: 03/13/2022 11:35 EDT by KAREN DE LUNA PT General Information, PT Visit Type, PT : Treatment Note Patient Orders : Order Date Order Ordering 03/09/2022 02:51 Physical Therapy Eval and Treat Ordered By: Elaine Ramires, PHYSICIAN-CLINIC 03/09/2022 12:05 PT Additional Treatment Ordered By: SAUL LUCIO PT 03/10/2022 10:38 PT Evaluation and Treatment Ordered By: JAMILAH GEORGES MD Active Diagnoses : No Qualifying Diagnoses Therapy Diagnosis, PT : Debility, weakness, impaired activity tolerance Admission Date : 03/01/2022 17:45 Personal Devices : Personal Devices No Devices Recorded Assistive Devices : Assistive Devices No Devices Recorded KAREN DE LUNA PT - 03/13/2022 11:35 EDT General Status Patient Received Status : Supine in bed Treatment Start Time : 03/13/2022 10:57 EDT Patient Left Status : Supine in bed Treatment End Time : 03/13/2022 11:35 EDT Treatment Time : 38 Minute(s) Actual Treatment Time : 38 Minute(s) KAREN DE LUNA, PT - 03/13/2022 11:35 EDT Functional Mobility Mobility Grid Bed Roll Left : Rehab Moderate assistance Bed Roll Right : Rehab Moderate assistance Bed Scooting : Rehab Maximal assistance Supine to Sit : Rehab Maximal assistance (Comment: near mod [KAREN DE LUNA, PT - 03/13/2022 15:38 EDT] ) Sit to Supine : Rehab Maximal assistance KAREN DE LUNA, PT - 03/13/2022 15:38 EDT Edu Topics Physical Therapy Education Grid Bed Mobility Training : Returns demonstration, Needs further teaching Therapeutic Exercises : Returns demonstration, Needs further teaching KAREN DE LUNA, PT - 03/13/2022 15:38 EDT Plan of Care, PT PT Tx Plan/Goals Established w Patient : Yes KAREN DE LUNA, PT - 03/13/2022 15:38 EDT Short Term Goals Mobility/Bed Mobility STG PT Grid Goal #1 Goal #2 Activity : Supine to sit Assist : Assist, moderate Equipment : Bed, hospital Date to Meet : 03/16/2022 EDT Goal Status : Progressing, continue Comment : eob goal below KAREN DE LUNA, PT - 03/13/2022 15:38 EDT KAREN DE LUNA, PT - 03/13/2022 15:38 EDT BalanceSTG Grid Goal #1 Activity : Sitting, static Assist : Assist, minimal Date to Meet : 03/16/2022 EDT Goal Status : Goal met Date Met : 03/11/2022 EDT Comment : goal added 03/10 KAREN DE LUNA, PT - 03/13/2022 15:38 EDT Halfway Goals Mobility/Bed Mobility LTG PT Grid Goal #1 Goal #4 Activity : Supine to sit Assist : Assist, minimal Equipment : Bed, hospital Date to Meet : 03/23/2022 EDT Goal Status : Progressing, continue Comment : see goals below KAREN DE LUNA, PT - 03/13/2022 15:38 EDT KAREN DE LUNA, PT - 03/13/2022 15:38 EDT Transfer LTG Grid Goal #1 Destination : Wheelchair, standard Type : Sliding board Cues : No cues Assist : Assist, maximal Equipment : Belt, gait, Other: slide board Date to Meet : 03/23/2022 EDT Goal Status : Intial Goal KAREN DE LUNA, PT - 03/13/2022 15:38 EDT BalanceLTG Grid Goal #1 Activity : Sitting, static Cues : No cues Assist : Independent, modified Date to Meet : 03/23/2022 EDT Goal Status : Progressing, continue KAREN DE LUNA, PT - 03/13/2022 15:38 EDT Treatment Note Plan for Treatment : cont poc ANNAMARIE KAREN, PT - 03/13/2022 15:44 EDT Subjective Comment : The patient agreed to PT. Additional Objective Information : The patient was assisted to transfer to the eob but began to slide off the eob while sitting. She was transferred back to supine and recevied PROM to the mega LE x 10. She had very recenlty performed mega UE exercise with OT using green theraband. KAREN DE LUNA, PT - 03/13/2022 15:38 EDT Assessment : The patient reports being able to transfer herself to her w/c and back but appears highly unlikely to be able to resume that level of independence very soon. Further inpatient rehab will be needed. KAREN DE LUNA, PT - 03/13/2022 15:44 EDT Pain Assessment Pain Scaled Used : 0-10 Pain scale Pain Score Pre-Intervention : 0 Pain Score During-Intervention : 0 Pain Score Post-Intervention. : 0 KAREN DE LUNA, PT - 03/13/2022 15:44 EDT Image 1 - Images currently included in the form version of this document have not been included in the text rendition version of the form. Anticipated Discharge Needs, OT/PT Anticipated Discharge to : Unit, [facility] KAREN DE LUNA, PT - 03/13/2022 15:44 EDT [facility] Charges PT Therap. Exercise 15 min : 1 PT Ther Activities Ea 15 Min : 2 KAREN DE LUNA, PT - 03/13/2022 11:35 EDT documented in this encounter Plan of Treatment Not on file documented as of this encounter Visit Diagnoses Not on filedocumented in this encounter
--- OUTSIDE RECORDS SUMMARY | 2025-02-21 13:43 | XMS_ITS | Encounter Summary ---
Author Organization [employer] Address [address] [place] [id number] Care Team Providers Care Credit And Collections Analyst Name Role Phone Unavailable Primary Care Provider Unavailabl e Encounter Details Date Type Department Care Team (Late st Contact Info) Description 02/21/2022 Transcribed Document [facility] [place] [address] [place] [address] ProviderFlorentino MD [address] [place] [address] Social History Tobacco Use Types Packs/Day Years Used Date Smoking Tobacco: Never Assessed Comments Unknown Sex and Gender Information Value Date Recorded Sex Assigned at Not on file Legal Sex Female 1:44 PM CDT Gender Identity Not on file Sexual Orientation Not on file documented as of this encounter Miscellaneous Notes * Cerner Conversion Note - Florentino Lynne MD - 02/21/2022 10:11 PM CDT Consult Phone Call Documentation Entered On: 02/22/2022 8:51 EDT Performed On: 02/22/2022 8:00 EDT by Maritza Elena RN Phone Call for Consults Consult Phone Call/Page Attempt : First call Provider Service Notified Name : Infectious Disease Maritza Elena RN - 02/22/2022 8:51 EDT documented in this encounter Plan of Treatment Not on file documented as of this encounter Visit Diagnoses Not on filedocumented in this encounter
--- OUTSIDE RECORDS SUMMARY | 2025-02-21 13:43 | XMS_ITS | Encounter Summary ---
Author Organization [facility] [employer] Address [address] [place] [id number] Care Team Providers Care Director Of Photography Name Role Phone Unavailable Primary Care Provider Unavailabl e Encounter Details Date Type Department Care Team (Late st Contact Info) Description 03/08/2022 Transcribed Document [facility] [address] [place] [address] ProviderFlorentino MD [address] [place] [address] Social History Tobacco Use Types Packs/Day Years Used Date Smoking Tobacco: Never Assessed Comments Unknown Sex and Gender Information Value Date Recorded Sex Assigned at Not on file Legal Sex Female 1:44 PM CDT Gender Identity Not on file Sexual Orientation Not on file documented as of this encounter Miscellaneous Notes * Cerner Conversion Note - Florentino Lynne MD - 03/08/2022 12:37 PM CDT Patient: ALYSSA AZUL Age: 61 years Sex: Female : 1960 Associated Diagnoses: None Author: VINNIE SWEENEY MD Subjective Still intubated, more alert and awake today, following commands. As per nurse no overnight issues. Hypokalemia supplemented. Health Status Allergies: Allergic Reactions (Selected) No [...] History of obstructive sleep apnea / IMO [id number] / Confirmed, Active Problems (5) Chronic kidney disease (CKD), stage III (moderate) Diabetes History of obstructive sleep apnea Hyperlipidemia Hypertension Objective VS/Measurements Vital Signs/Vital Measures 03/08/2022 12:00 EDT Systolic Blood Pressure 123 mmHg Diastolic Blood Pressure 61 mmHg Mean Arterial Pressure (MAP)-BMDI 83 Systolic BP, Arterial Line 2 128 mmHg Diastolic BP, Arterial Line 2 50 mmHg LOW Mean Arterial Pressure, Line 2 70 mmHg Temperature Source Axillary Temperature Mode Fahrenheit Temperature, Fahrenheit 98.9 Deg F Clinical Temperature, C 37.2 Deg C Heart Rate Monitored 103 bpm HI Respiratory Rate 17 Breaths/Min Oxygen Saturation 92 % LOW 03/08/2022 11:33 EDT Heart Rate Monitored 103 bpm HI Respiratory Rate 22 Breaths/Min HI Oxygen Saturation 99 % Oxygen Therapy Mode Mechanical ventilation FiO2 50 % 03/08/2022 11:00 EDT Systolic Blood Pressure 146 mmHg HI Diastolic Blood Pressure 64 mmHg Mean Arterial Pressure (MAP)-BMDI 92 Systolic BP, Arterial Line 2 129 mmHg Diastolic BP, Arterial Line 2 52 mmHg LOW Mean Arterial Pressure, Line 2 72 mmHg 03/08/2022 10:00 EDT Systolic Blood Pressure 140 mmHg Diastolic Blood Pressure 70 mmHg Mean Arterial Pressure (MAP)-BMDI 96 Systolic BP, Arterial Line 2 143 mmHg HI Diastolic BP, Arterial Line 2 58 mmHg LOW Mean Arterial Pressure, Line 2 81 mmHg Heart Rate Monitored 100 bpm Respiratory Rate 9 Breaths/Min LOW Oxygen Saturation 97 % 03/08/2022 9:00 EDT Systolic Blood Pressure 132 mmHg Diastolic Blood Pressure 77 mmHg Mean Arterial Pressure (MAP)-BMDI 99 Systolic BP, Arterial Line 2 147 mmHg HI Diastolic BP, Arterial Line 2 63 mmHg Mean Arterial Pressure, Line 2 87 mmHg Heart Rate Monitored 90 bpm Respiratory Rate 11 Breaths/Min LOW Oxygen Saturation 100 % 03/08/2022 8:46 EDT Heart Rate Monitored 91 bpm Respiratory Rate 28 Breaths/Min HI Oxygen Saturation 99 % Oxygen Therapy Mode Mechanical ventilation FiO2 50 % 03/08/2022 8:00 EDT Systolic Blood Pressure 125 mmHg Diastolic Blood Pressure 74 mmHg Mean Arterial Pressure (MAP)-BMDI 95 Systolic BP, Arterial Line 2 143 mmHg HI Diastolic BP, Arterial Line 2 63 mmHg Mean Arterial Pressure, Line 2 88 mmHg Temperature Source Axillary Temperature Mode Fahrenheit Temperature, Fahrenheit 98.5 Deg F Clinical Temperature, C 36.9 Deg C Heart Rate Monitored 86 bpm Respiratory Rate 12 Breaths/Min LOW Oxygen Saturation 100 % 03/08/2022 7:00 EDT Systolic Blood Pressure 113 mmHg Diastolic Blood Pressure 60 mmHg Mean Arterial Pressure (MAP)-BMDI 79 Systolic BP, Arterial Line 2 114 mmHg Diastolic BP, Arterial Line 2 53 mmHg LOW Mean Arterial Pressure, Line 2 70 mmHg Heart Rate Monitored 83 bpm Respiratory Rate 11 Breaths/Min LOW Oxygen Saturation 100 % 03/08/2022 6:29 EDT Systolic BP, Arterial Line 2 92 mmHg Diastolic BP, Arterial Line 2 43 mmHg LOW Mean Arterial Pressure, Line 2 56 mmHg Heart Rate Monitored 49 bpm LOW Respiratory Rate 16 Breaths/Min Oxygen Saturation 97 % 03/08/2022 6:21 EDT Systolic BP, Arterial Line 2 88 mmHg LOW Diastolic BP, Arterial Line 2 38 mmHg LOW Mean Arterial Pressure, Line 2 52 mmHg Heart Rate Monitored 67 bpm Respiratory Rate 14 Breaths/Min Oxygen Saturation 95 % 03/08/2022 6:20 EDT Systolic Blood Pressure 87 mmHg LOW Diastolic Blood Pressure 52 mmHg LOW Mean Arterial Pressure (MAP)-BMDI 67 Systolic BP, Arterial Line 2 85 mmHg LOW Diastolic BP, Arterial Line 2 36 mmHg LOW Mean Arterial Pressure, Line 2 50 mmHg Heart Rate Monitored 55 bpm LOW Respiratory Rate 6 Breaths/Min LOW Oxygen Saturation 95 % 03/08/2022 6:15 EDT Systolic Blood Pressure 99 mmHg Diastolic Blood Pressure 55 mmHg LOW Mean Arterial Pressure (MAP)-BMDI 71 Systolic BP, Arterial Line 2 96 mmHg Diastolic BP, Arterial Line 2 45 mmHg LOW Mean Arterial Pressure, Line 2 59 mmHg Heart Rate Monitored 83 bpm Respiratory Rate 10 Breaths/Min LOW Oxygen Saturation 97 % 03/08/2022 6:12 EDT Systolic BP, Arterial Line 2 94 mmHg Diastolic BP, Arterial Line 2 37 mmHg LOW Mean Arterial Pressure, Line 2 58 mmHg Heart Rate Monitored 87 bpm Respiratory Rate 22 Breaths/Min HI Oxygen Saturation 87 % LOW 03/08/2022 6:10 EDT Systolic BP, Arterial Line 2 111 mmHg Diastolic BP, Arterial Line 2 45 mmHg LOW Mean Arterial Pressure, Line 2 66 mmHg Heart Rate Monitored 90 bpm Respiratory Rate 32 Breaths/Min HI Oxygen Saturation 91 % LOW 03/08/2022 6:06 EDT Systolic BP, Arterial Line 2 103 mmHg Diastolic BP, Arterial Line 2 45 mmHg LOW Mean Arterial Pressure, Line 2 60 mmHg Heart Rate Monitored 87 bpm Respiratory Rate 20 Breaths/Min Oxygen Saturation 93 % LOW 03/08/2022 6:05 EDT Systolic BP, Arterial Line 2 102 mmHg Diastolic BP, Arterial Line 2 45 mmHg LOW Mean Arterial Pressure, Line 2 60 mmHg Heart Rate Monitored 86 bpm Respiratory Rate 20 Breaths/Min Oxygen Saturation 94 % 03/08/2022 6:00 EDT Systolic Blood Pressure 99 mmHg Diastolic Blood Pressure 55 mmHg LOW Mean Arterial Pressure (MAP)-BMDI 71 Systolic BP, Arterial Line 2 109 mmHg Diastolic BP, Arterial Line 2 47 mmHg LOW Mean Arterial Pressure, Line 2 63 mmHg Heart Rate Monitored 87 bpm Respiratory Rate 19 Breaths/Min Oxygen Saturation 94 % 03/08/2022 5:55 EDT Systolic BP, Arterial Line 2 107 mmHg Diastolic BP, Arterial Line 2 46 mmHg LOW Mean Arterial Pressure, Line 2 62 mmHg Heart Rate Monitored 86 bpm Respiratory Rate 19 Breaths/Min Oxygen Saturation 91 % LOW 03/08/2022 5:50 EDT Systolic BP, Arterial Line 2 116 mmHg Diastolic BP, Arterial Line 2 49 mmHg LOW Mean Arterial Pressure, Line 2 67 mmHg Heart Rate Monitored 87 bpm Respiratory Rate 19 Breaths/Min Oxygen Saturation 92 % LOW 03/08/2022 5:45 EDT Systolic BP, Arterial Line 2 122 mmHg Diastolic BP, Arterial Line 2 52 mmHg LOW Mean Arterial Pressure, Line 2 71 mmHg Heart Rate Monitored 85 bpm Respiratory Rate 13 Breaths/Min LOW Oxygen Saturation 100 % 03/08/2022 5:30 EDT Systolic BP, Arterial Line 2 119 mmHg Diastolic BP, Arterial Line 2 50 mmHg LOW Mean Arterial Pressure, Line 2 68 mmHg Heart Rate Monitored 84 bpm Respiratory Rate 3 Breaths/Min LOW Oxygen Saturation 100 % 03/08/2022 5:03 EDT Heart Rate Monitored 72 bpm Respiratory Rate 16 Breaths/Min Oxygen Saturation 100 % Oxygen Therapy Mode Mechanical ventilation FiO2 80 % 03/08/2022 5:00 EDT Systolic Blood Pressure 109 mmHg Diastolic Blood Pressure 58 mmHg LOW Mean Arterial Pressure (MAP)-BMDI 77 Systolic BP, Arterial Line 2 130 mmHg Diastolic BP, Arterial Line 2 56 mmHg LOW Mean Arterial Pressure, Line 2 76 mmHg 03/08/2022 4:30 EDT Systolic BP, Arterial Line 2 131 mmHg Diastolic BP, Arterial Line 2 55 mmHg LOW Mean Arterial Pressure, Line 2 75 mmHg Heart Rate Monitored 77 bpm Respiratory Rate 16 Breaths/Min Oxygen Saturation 100 % 03/08/2022 4:00 EDT Systolic Blood Pressure 107 mmHg Diastolic Blood Pressure 56 mmHg LOW Mean Arterial Pressure (MAP)-BMDI 75 Systolic BP, Arterial Line 2 131 mmHg Diastolic BP, Arterial Line 2 55 mmHg LOW Mean Arterial Pressure, Line 2 75 mmHg Temperature Source Axillary Temperature Mode Fahrenheit Temperature, Fahrenheit 98.8 Deg F Clinical Temperature, C 37.1 Deg C Heart Rate Monitored 80 bpm Respiratory Rate 16 Breaths/Min Oxygen Saturation 100 % Oxygen Therapy Mode Mechanical ventilation FiO2 80 % 03/08/2022 3:30 EDT Systolic BP, Arterial Line 2 129 mmHg Diastolic BP, Arterial Line 2 54 mmHg LOW Mean Arterial Pressure, Line 2 75 mmHg Heart Rate Monitored 80 bpm Respiratory Rate 16 Breaths/Min Oxygen Saturation 100 % 03/08/2022 3:00 EDT Systolic Blood Pressure 125 mmHg Diastolic Blood Pressure 62 mmHg Mean Arterial Pressure (MAP)-BMDI 86 Systolic BP, Arterial Line 2 132 mmHg Diastolic BP, Arterial Line 2 59 mmHg LOW Mean Arterial Pressure, Line 2 81 mmHg Heart Rate Monitored 67 bpm Respiratory Rate 18 Breaths/Min Oxygen Saturation 100 % 03/08/2022 2:30 EDT Systolic BP, Arterial Line 2 148 mmHg HI Diastolic BP, Arterial Line 2 61 mmHg Mean Arterial Pressure, Line 2 87 mmHg Heart Rate Monitored 67 bpm Respiratory Rate 4 Breaths/Min LOW Oxygen Saturation 100 % 03/08/2022 2:00 EDT Systolic Blood Pressure 144 mmHg HI Diastolic Blood Pressure 74 mmHg Mean Arterial Pressure (MAP)-BMDI 103 Systolic BP, Arterial Line 2 149 mmHg HI Diastolic BP, Arterial Line 2 63 mmHg Mean Arterial Pressure, Line 2 89 mmHg Heart Rate Monitored 69 bpm Respiratory Rate 16 Breaths/Min (Modified) Oxygen Saturation 100 % Oxygen Therapy Mode Mechanical ventilation FiO2 80 % 03/08/2022 1:30 EDT Systolic BP, Arterial Line 2 155 mmHg HI Diastolic BP, Arterial Line 2 65 mmHg Mean Arterial Pressure, Line 2 94 mmHg Heart Rate Monitored 74 bpm Respiratory Rate 16 Breaths/Min (Modified) Oxygen Saturation 100 % 03/08/2022 1:00 EDT Systolic Blood Pressure 182 mmHg HI Diastolic Blood Pressure 93 mmHg HI Mean Arterial Pressure (MAP)-BMDI 130 Systolic BP, Arterial Line 2 184 mmHg HI Diastolic BP, Arterial Line 2 76 mmHg Mean Arterial Pressure, Line 2 114 mmHg Heart Rate Monitored 75 bpm Respiratory Rate 16 Breaths/Min (Modified) Oxygen Saturation 100 % 03/08/2022 0:30 EDT Systolic Blood Pressure 129 mmHg Diastolic Blood Pressure 88 mmHg Mean Arterial Pressure (MAP)-BMDI 106 Systolic BP, Arterial Line 2 207 mmHg HI Diastolic BP, Arterial Line 2 92 mmHg HI Mean Arterial Pressure, Line 2 137 mmHg Heart Rate Monitored 77 bpm Respiratory Rate 16 Breaths/Min (Modified) Oxygen Saturation 100 % 03/08/2022 0:05 EDT Heart Rate Monitored 69 bpm Respiratory Rate 16 Breaths/Min (Modified) Oxygen Saturation 100 % Oxygen Therapy Mode Mechanical ventilation FiO2 80 % 03/08/2022 0:00 EDT Systolic BP, Arterial Line 2 159 mmHg HI Diastolic BP, Arterial Line 2 73 mmHg Mean Arterial Pressure, Line 2 101 mmHg Temperature Source Axillary Temperature Mode Fahrenheit Temperature, Fahrenheit 98.4 Deg F Clinical Temperature, C 36.9 Deg C 03/07/2022 23:30 EDT Systolic BP, Arterial Line 2 149 mmHg HI Diastolic BP, Arterial Line 2 69 mmHg Mean Arterial Pressure, Line 2 93 mmHg Heart Rate Monitored 71 bpm Respiratory Rate 16 Breaths/Min (Modified) Oxygen Saturation 100 % 03/07/2022 23:00 EDT Systolic BP, Arterial Line 2 127 mmHg Diastolic BP, Arterial Line 2 62 mmHg Mean Arterial Pressure, Line 2 81 mmHg Heart Rate Monitored 72 bpm Respiratory Rate 16 Breaths/Min (Modified) Oxygen Saturation 99 % 03/07/2022 22:30 EDT Systolic BP, Arterial Line 2 133 mmHg Diastolic BP, Arterial Line 2 65 mmHg Mean Arterial Pressure, Line 2 86 mmHg Heart Rate Monitored 74 bpm Respiratory Rate 16 Breaths/Min Oxygen Saturation 99 % 03/07/2022 22:00 EDT Systolic BP, Arterial Line 2 136 mmHg Diastolic BP, Arterial Line 2 66 mmHg Mean Arterial Pressure, Line 2 87 mmHg Heart Rate Monitored 72 bpm Respiratory Rate 16 Breaths/Min Oxygen Saturation 100 % 03/07/2022 21:30 EDT Systolic BP, Arterial Line 2 133 mmHg Diastolic BP, Arterial Line 2 65 mmHg Mean Arterial Pressure, Line 2 86 mmHg Heart Rate Monitored 74 bpm Respiratory Rate 16 Breaths/Min Oxygen Saturation 100 % 03/07/2022 21:00 EDT Systolic BP, Arterial Line 2 136 mmHg Diastolic BP, Arterial Line 2 67 mmHg Mean Arterial Pressure, Line 2 88 mmHg Heart Rate Monitored 76 bpm Respiratory Rate 16 Breaths/Min Oxygen Saturation 100 % 03/07/2022 20:36 EDT Heart Rate Monitored 79 bpm Respiratory Rate 16 Breaths/Min Oxygen Saturation 100 % Oxygen Therapy Mode Mechanical ventilation FiO2 80 % 03/07/2022 20:30 EDT Systolic BP, Arterial Line 2 163 mmHg HI Diastolic BP, Arterial Line 2 77 mmHg Mean Arterial Pressure, Line 2 102 mmHg 03/07/2022 20:00 EDT Systolic BP, Arterial Line 2 159 mmHg HI Diastolic BP, Arterial Line 2 67 mmHg Mean Arterial Pressure, Line 2 89 mmHg Temperature Source Oral Temperature Mode Fahrenheit Temperature, Fahrenheit 98.7 Deg F Clinical Temperature, C 37.1 Deg C Heart Rate Monitored 89 bpm Respiratory Rate 17 Breaths/Min Oxygen Saturation 100 % 03/07/2022 19:30 EDT Systolic Blood Pressure 119 mmHg Diastolic Blood Pressure 66 mmHg Mean Arterial Pressure (MAP)-BMDI 86 Systolic BP, Arterial Line 2 160 mmHg HI Diastolic BP, Arterial Line 2 70 mmHg Mean Arterial Pressure, Line 2 95 mmHg Heart Rate Monitored 95 bpm Respiratory Rate 17 Breaths/Min Oxygen Saturation 100 % 03/07/2022 19:00 EDT Systolic BP, Arterial Line 2 141 mmHg HI Diastolic BP, Arterial Line 2 64 mmHg Mean Arterial Pressure, Line 2 85 mmHg Heart Rate Monitored 94 bpm Respiratory Rate 17 Breaths/Min Oxygen Saturation 100 % 03/07/2022 18:30 EDT Systolic BP, Arterial Line 2 140 mmHg Diastolic BP, Arterial Line 2 65 mmHg Mean Arterial Pressure, Line 2 86 mmHg Heart Rate Monitored 98 bpm Respiratory Rate 16 Breaths/Min Oxygen Saturation 100 % 03/07/2022 18:00 EDT Systolic Blood Pressure 142 mmHg HI Diastolic Blood Pressure 78 mmHg Mean Arterial Pressure (MAP)-BMDI 103 Systolic BP, Arterial Line 2 146 mmHg HI Diastolic BP, Arterial Line 2 72 mmHg Mean Arterial Pressure, Line 2 96 mmHg Heart Rate Monitored 109 bpm HI Respiratory Rate 23 Breaths/Min HI Oxygen Saturation 100 % 03/07/2022 17:00 EDT Systolic Blood Pressure 143 mmHg HI Diastolic Blood Pressure 84 mmHg Mean Arterial Pressure (MAP)-BMDI 107 Systolic BP, Arterial Line 2 178 mmHg HI Diastolic BP, Arterial Line 2 81 mmHg Mean Arterial Pressure, Line 2 109 mmHg Temperature Source Axillary Temperature Mode Fahrenheit Temperature, Fahrenheit 100.4 Deg F HI Clinical Temperature, C 38 Deg C Heart Rate Monitored 115 bpm HI Respiratory Rate 10 Breaths/Min LOW Oxygen Saturation 100 % FiO2 80 % 03/07/2022 16:00 EDT Systolic Blood Pressure 136 mmHg Diastolic Blood Pressure 79 mmHg Mean Arterial Pressure (MAP)-BMDI 102 Systolic BP, Arterial Line 2 179 mmHg HI Diastolic BP, Arterial Line 2 76 mmHg Mean Arterial Pressure, Line 2 100 mmHg Temperature Source Axillary Temperature Mode Fahrenheit Temperature, Fahrenheit 99.9 Deg F HI Clinical Temperature, C 37.7 Deg C Heart Rate Monitored 113 bpm HI Respiratory Rate 18 Breaths/Min Oxygen Saturation 100 % 03/07/2022 15:33 EDT Heart Rate Monitored 100 bpm Respiratory Rate 7 Breaths/Min LOW Oxygen Saturation 87 % LOW 03/07/2022 15:31 EDT Heart Rate Monitored 100 bpm Respiratory Rate 23 Breaths/Min HI Oxygen Saturation 83 % LOW Oxygen Therapy Mode Mechanical ventilation FiO2 100 % 03/07/2022 15:00 EDT Systolic Blood Pressure 121 mmHg Diastolic Blood Pressure 75 mmHg Mean Arterial Pressure (MAP)-BMDI 93 Systolic BP, Arterial Line 2 166 mmHg HI Diastolic BP, Arterial Line 2 68 mmHg Mean Arterial Pressure, Line 2 93 mmHg 03/07/2022 14:04 EDT Heart Rate Monitored 101 bpm HI Respiratory Rate 6 Breaths/Min LOW Oxygen Saturation 97 % Oxygen Therapy Mode Mechanical ventilation FiO2 40 % 03/07/2022 14:00 EDT Systolic Blood Pressure 146 mmHg HI Diastolic Blood Pressure 87 mmHg Mean Arterial Pressure (MAP)-BMDI 112 Systolic BP, Arterial Line 2 175 mmHg HI Diastolic BP, Arterial Line 2 71 mmHg Mean Arterial Pressure, Line 2 99 mmHg 03/07/2022 13:00 EDT Systolic Blood Pressure 151 mmHg HI Diastolic Blood Pressure 86 mmHg Mean Arterial Pressure (MAP)-BMDI 111 Systolic BP, Arterial Line 2 189 mmHg HI Diastolic BP, Arterial Line 2 77 mmHg Mean Arterial Pressure, Line 2 106 mmHg Heart Rate Monitored 102 bpm HI Respiratory Rate 10 Breaths/Min LOW Oxygen Saturation 99 % 03/07/2022 12:00 EDT Systolic Blood Pressure 162 [...] 21 Breaths/Min HI Oxygen Saturation 98 % , Measurements from flowsheet : Measurements 03/07/2022 4:00 EDT Routine Weight Source Bed scale Routine Weight Entry Format Metric Routine Weight, Kilograms 93.1 kg Routine Weight Calculation 93.1 kg , Vitals Signs (last 24 hrs) Last Charted Minimum Maximum Temp 98.9 (MAR 08 12:00) 98.9 (MAR 08 12:00) H 100.4 (MAR 07 17:00) Mon HR 103 (MAR 08 12:00) 49 (MAR 08 06:29) 115 (MAR 07 17:00) Resp Rate 17 (MAR 08 12:00) L 3 (MAR 08 05:30) H 32 (MAR 08 06:10) SBP 123 (MAR 08 12:00) L 87 (MAR 08 06:20) H 182 (MAR 08 01:00) DBP 61 (MAR 08 12:00) L 52 (MAR 08 06:20) H 93 (MAR 08 01:00) MAP 83 (MAR 08 12:00) 67 (MAR 08 06:20) 130 (MAR 08 01:00) SpO2 L 92 (MAR 08 12:00) L 83 (MAR 07 15:31) 100 (MAR 07 16:00) Intake & Output Totals Last 24 Hours (7a-7a) Intake (116 Events) Continuous Infusions (1549.43 mL) Medications (287.59 mL) Enteral Additional Water Given (240 mL) Enteral Feeding Amount (1320 mL) Output (9 Events) Vaelnzuela Catheter (1275 mL) Other Output (500 mL) Input Total: 3397.02 mL Output Total: 1775 mL Balance: 1622.02 mL Physical exam contact may be limited [...] Labs (Last four charted values) WBC 8.9 (MAR 08) 9.3 (MAR 07) 5.7 (MAR 05) 6.8 (MAR 04) HB L 7.8 (MAR 08) L 7.8 (MAR 07) L 8.0 (MAR 07) L 6.8 (MAR 07) HCT L 25.6 (MAR 08) L 25.1 (MAR 07) L 26.0 (MAR 07) L 22.5 (MAR 07) Plt L 121 (MAR 08) L 127 (MAR 07) L 124 (MAR 05) L 161 (MAR 04) Na 143 (MAR 08) 144 (MAR 07) H 147 (MAR 06) H 148 (MAR 05) K 3.6 (MAR 08) L 3.4 (MAR 08) L 3.4 (MAR 07) L 3.3 (MAR 07) Cl H 113 (MAR 08) H 117 (FEB 08) H 117 (MAR 06) H 119 (MAR 05) CO2 22 (MAR 08) 21 (MAR 07) 21 (MAR 06) L 19 (MAR 05) BUN H 37 (MAR 08) H 31 (MAR 07) H 33 (MAR 06) H 34 (MAR 05) Cr H 2.00 (MAR 08) H 2.10 (MAR 07) H 2.10 (MAR 06) H 2.10 (MAR 05) Glu R H 300 (MAR 08) H 286 (MAR 07) H 165 (MAR 06) H 140 (MAR 05) Ca 8.7 (MAR 08) 8.6 (MAR 07) 9.0 (MAR 06) 8.7 (MAR 05) Lactic 0.5 (MAR 04) 0.6 (MAR 01) PT 10.5 (MAR 04) 11.0 (MAR 02) INR 1.0 (MAR 04) 1.0 (MAR 02) PTT 26.0 (MAR 04) 24.6 (MAR 02) AST L 4 (MAR 08) 7 (MAR 07) 14 (MAR 06) 14 (MAR 05) ALT L 10 (MAR 08) L 11 (MAR 07) 13 (MAR 06) 15 (MAR 05) ALK P 40 (MAR 08) 42 (MAR 07) 46 (MAR 06) 48 (MAR 05) T Bili 0.7 (MAR 08) 0.6 (MAR 07) 0.7 (MAR 06) 0.7 (MAR 05) PTN 6.4 (MAR 08) L 6.3 (MAR 07) 6.9 (MAR 06) 6.8 (MAR 05) ALB L 2.2 (MAR 08) L 2.5 (MAR 07) L 2.9 (MAR 06) L 2.8 (MAR 05) Impression and Plan 1- JAVIER - nonoliguric. [...] on vent. Plan: - Renal function stable Cr 2.0 mg/dl .. [still not back to baseline].. -Hypernatremia better will stop D5 and increase free water. - Albumin infusion to support BP - Keep MAP above 65 mmHg. - Monitor I/o - Avoid nephrotoxic agents. 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 - Monitor H/H and transfuse for Hgb less than 7.0 High risk and complexity patient. Discussed with RN at bedside. documented in this encounter Plan of Treatment Not on file documented as of this encounter Visit Diagnoses Not on filedocumented in this encounter
--- OUTSIDE RECORDS SUMMARY | 2025-02-21 13:43 | XMS_ITS | Encounter Summary ---
Author Organization [employer] Address [address] [place] [address] Care Team Providers Care Sewer Pipe Layer Helper Name Role Phone Unavailable Primary Care Provider Unavailabl e Encounter Details Date Type Department Care Team (Late st Contact Info) Description 03/09/2022 Transcribed Document [facility] Pulm & Critical Care Medicine [address] [place] [address] Tori Ferro MD [address] [place] [address] Social History Tobacco Use Types Packs/Day Years Used Date Smoking Tobacco: Never Assessed Comments Unknown Sex and Gender Information Value Date Recorded Sex Assigned at Not on file Legal Sex Female 1:44 PM CDT Gender Identity Not on file Sexual Orientation Not on file documented as of this encounter Miscellaneous Notes * Cerner Conversion Note - Tori Ferro MD - 03/09/2022 7:22 PM EDT Patient: ALYSSA AZUL Age: 61 years Sex: Female : 1960 Associated Diagnoses: None Author: TORI FERRO MD Basic Information Pulmonary/CCM Date of Admission: 03/01/22 Date of Consultation: 03/01/22 Referring Provider: Elaine Ramires MD ([facility]) Reason for Consultation: Ventilator/CCM CC: Unobtainable History of Present Illness: This is a 61-year-old female with underlying medical history including paraplegia, CKD, stage III, T2DM, and HTN. At time of evaluation, patient is intubated, sedated, and on ventilator support and both son and [id number] are present at bedside to give some medical background; therefore, history and hospital course is primarily retrieved from them and through medical chart review. In summary, patient was admitted to [facility] on 02/17/22 with symptoms including dyspnea, [...] higher level care, she was transferred to [facility] on 02/22. Patient was extubated on [...] sodium trending up 149 spoke to the layer up will start patient on tube feeds will [...] showed uncompensated respiratory acidosis. Encouraged incentive spirometry Intake & Output Totals Last 24 Hours (7a-7a) Intake (77 Events) Continuous Infusions (300 mL) Medications (320.36 mL) Enteral Additional Water Given (620 mL) Enteral Feeding Amount (1320 mL) Output (8 Events) Valenzuela Catheter (2325 mL) Input Total: 2560.36 mL Output Total: 2325 mL Balance: 235.36 mL Review of Systems Constitutional: Weakness, Fatigue. [...] History of obstructive sleep apnea / IMO [id number] / Confirmed, Active Problems (5) Chronic kidney disease (CKD), stage III (moderate) Diabetes History of obstructive sleep apnea Hyperlipidemia Hypertension Physical Examination VS/Measurements Vitals Signs (last 24 hrs) Last Charted Minimum Maximum Temp 97.7 (MAR 09 16:00) 97.7 (MAR 09 16:00) 99.2 (MAR 09 04:00) Mon HR 84 (MAR 09 18:) 69 (MAR 09 11:00) 105 (MAR 08 19:25) Resp Rate H 24 (MAR 09:00) 17 (MAR 08 21:30) H 53 (MAR 09 05:30) SBP H 144 (MAR 09 18:00) 96 (MAR 09 01:00) H 190 (MAR 09 07:00) DBP 70 (MAR 09 18:00) L 52 (MAR 09 01:00) H 103 (MAR 09 06:00) MAP 101 (MAR 09 18:00) 70 (MAR 09 01:00) 129 (MAR 09 06:00) SpO2 L 92 (MAR 09 18:00) L 86 (MAR 09 00:30) 100 (MAR 08 19:30) Intake & Output Totals Last 24 Hours (7a-7a) Intake (77 Events) Continuous Infusions (300 mL) Medications (320.36 mL) Enteral Additional Water Given (620 mL) Enteral Feeding Amount (1320 mL) Output (8 Events) Valenzuela Catheter (2325 mL) Input Total: 2560.36 mL Output Total: 2325 mL Balance: 235.36 mL General: Alert and oriented, No acute [...] review: Labs (Last four charted values) WBC 8.6 (MAR 09) 8.9 (MAR 08) 9.3 (MAR 07) 5.7 (MAR 05) HB L 7.8 (MAR 09) L 7.8 (MAR 08) L 7.8 (MAR 07) L 8.0 (MAR 07) HCT L 25.5 (MAR 09) L 25.6 (MAR 08) L 25.1 (MAR 07) L 26.0 (MAR 07) Plt L 131 (MAR 09) L 121 (MAR 08) L 127 (MAR 07) L 124 (MAR 05) Na 145 (MAR 09) 143 (MAR 08) 144 (MAR 07) H 147 (MAR 06) K 3.8 (MAR 09) 3.6 (MAR 08) L 3.4 (MAR 08) L 3.4 (MAR 07) Cl H 114 (MAR 09) H 113 (MAR 08) H 117 (MAR 07) H 117 (MAR 06) CO2 26 (MAR 09) 22 (MAR 08) 21 (MAR 07) 21 (MAR 06) BUN H 39 (MAR 09) H 37 (MAR 08) H 31 (MAR 07) H 33 (MAR 06) Cr H 1.90 (MAR 09) H 2.00 (MAR 08) H 2.10 (MAR 07) H 2.10 (MAR 06) Glu R H 233 (MAR 09) H 300 (MAR 08) H 286 (MAR 07) H 165 (MAR 06) Ca 8.7 (MAR 09) 8.7 (MAR 08) 8.6 (MAR 07) 9.0 (MAR 06) Lactic 0.5 (MAR 09) 0.5 (MAR 04) 0.6 (MAR 01) PT 10.5 (MAR 04) 11.0 (MAR 02) INR 1.0 (MAR 04) 1.0 (MAR 02) PTT 26.0 (MAR 04) 24.6 (MAR 02) AST 9 (MAR 09) L 4 (MAR 08) 7 (MAR 07) 14 (MAR 06) ALT L 11 (MAR 09) L 10 (MAR 08) L 11 (MAR 07) 13 (MAR 06) ALK P 44 (MAR 09) 40 (MAR 08) 42 (MAR 07) 46 (MAR 06) T Bili 0.4 (MAR 09) 0.7 (MAR 08) 0.6 (MAR 07) 0.7 (MAR 06) PTN 6.6 (MAR 09) 6.4 (MAR 08) L 6.3 (MAR 07) 6.9 (MAR 06) ALB L 2.3 (MAR 09) L 2.2 (MAR 08) L 2.5 (MAR 07) L 2.9 (MAR 06) . Radiology Results (Last 48 hours) [id number] -- 03/01/2022 17:45 CR Chest 1 Vw [...] increased work of breathing. Encourage incentive spirometry DuoNebs Q6h. Pulmicort nebs BID. Mucinex 400mg [...] Nutrition: Case has been discussed with the layer up, currently on tube feeds, trophic feeding advance to goal. Corpak in place. GI prophylaxis: Pepcid. VTE prophylaxis: Heparin SQ Labs and images reviewed. Prognosis: Guarded. At risk for respiratory decline and hemodynamic decline. CODE STATUS: Full Code Disposition: ICU I saw and examined the patient at bedside, obtained medical history, reviewed labs, diagnostics and chest imaging data. I personally and independently visualized and interpreted chest imaging data on PACS. I formulated diagnosis and treatment plans. I made all medical decisions as above. Complex case and critically ill. Need high level of decision making and frequent bed side visits for monitoring and management. Cumulative Critical care time spent on the patient excluding procedures - 31 min. D/w RN and RT. documented in this encounter Plan of Treatment Not on file documented as of this encounter Visit Diagnoses Not on filedocumented in this encounter
--- OUTSIDE RECORDS SUMMARY | 2025-02-21 13:43 | XMS_ITS | Encounter Summary ---
Author Organization [employer] Address [address] [place] [address] Care Team Providers Care Aircraft Restorer Name Role Phone Unavailable Primary Care Provider Unavailabl e Encounter Details Date Type Department Care Team (Late st Contact Info) Description 02/28/2022 Transcribed Document [facility] [place] Family Medicine [address] [place] [address] ProviderFlorentino MD [address] [place] [address] Social History Tobacco Use [...] Note - Florentino Lynne MD - 02/28/2022 11:54 AM CDT Patient: ALYSSA AZUL Age: 61 years Sex: Female : 1960 Associated Diagnoses: None Author: HIGINIO AREVALO MD-INF Antibiotics: Zosyn CC: Sacral wound Subjective: Patient moved out to floor stable on nasal cannula today no fevers remains on IV antibiotics normal white blood cell count Objective: Vitals Signs (last 24 hrs) Last [...] (FEB 27 20:50) 99 (FEB 27 13:57) PE: General: Patient will awaken now on [...] LABS: Labs (Last four charted values) WBC 10.0 (FEB 28) 9.0 (FEB 27) 9.6 (FEB 26) H 10.4 (FEB 25) HB L 7.8 (FEB 28) L 8.6 (FEB 27) L 8.1 (FEB 26) L 8.3 (FEB 25) HCT L 25.1 (FEB 28) L 27.5 (FEB 27) L 25.8 (FEB 26) L 25.5 (FEB 25) Plt 197 (FEB 28) 190 (FEB 27) 203 (FEB 26) 246 (FEB 25) Na H 147 (FEB 28) H 148 (FEB 27) H 147 (FEB 26) 146 (FEB 25) K 4.0 (FEB 28) L 3.2 (FEB 27) 3.6 (FEB 26) L 3.4 (FEB 25) Cl H 113 (FEB 28) H 113 (FEB 27) 112 (FEB 26) 110 (FEB 25) CO2 23 (FEB 28) 22 (FEB 27) 23 (FEB 26) L 20 (FEB 25) BUN H 53 (FEB 28) H 50 (FEB 27) H 50 (FEB 26) H 48 (FEB 25) Cr H 2.94 (FEB 28) H 3.12 (FEB 27) H 3.30 (FEB 26) H 3.28 (FEB 25) Glu R H 178 (FEB 28) 97 (FEB 27) H 153 (FEB 26) H 178 (FEB 25) Ca L 8.2 (FEB 28) 8.5 (FEB 27) L 8.2 (FEB 26) L 8.1 (FEB 25) Lactic 0.9 (FEB 22) 0.7 (FEB 22) [...] Pending Outside BAL with gram-negative diplococci IMAGING: No Radiology Results Found IMPRESSION: - Septic shock: Improved, now off vasopressors. Source presumed to be left gluteal wound but could also have been be pneumonia - Large left gluteal soft tissue infection, ulceration, necrosis, to level of soft tissue: Status post I&D x3 at [facility]. -Acute hypoxic respiratory failure: Pneumonia & [...] VAC in place remains now off vent -Check labs in a.m. if CRP improved plan to transition to oral antibiotics with Augmentin 875/125 p.o. twice daily x2 weeks Electronically signed by Bruce Shell Conversion Clinical Research Management Associate Cerner at 12/21/2022 5:11 PM CDT documented in this encounter Plan of Treatment Not on file documented as of this encounter Visit Diagnoses Not on filedocumented in this encounter
--- OUTSIDE RECORDS SUMMARY | 2025-02-21 13:43 | XMS_ITS | Encounter Summary ---
Author Organization [employer] Address [address] [place] [address] Care Team Providers Care Policy Manager Name Role Phone Unavailable Primary Care Provider Unavailabl e Encounter Details Date Type Department Care Team (Late st Contact Info) Description 03/08/2022 Transcribed Document [facility] [place] Family Medicine [address] [place] [address] ProviderFlorentino MD [address] [place] [address] Social History Tobacco Use Types Packs/Day Years Used Date Smoking Tobacco: Never Assessed Comments Unknown Sex and Gender Information Value Date Recorded Sex Assigned at Not on file Legal Sex Female 1:44 PM CDT Gender Identity Not on file Sexual Orientation Not on file documented as of this encounter Miscellaneous Notes * Cerner Conversion Note - Historical ProviderMD - 03/08/2022 6:22 AM CDT Event Note Entered On: 03/08/2022 6:23 EDT Performed On: 03/08/2022 6:22 EDT by TRINIDAD LANDIS RN Event Note Event Date/Time : 03/08/2022 6:22 EDT Description of Event : Patient remains Bradycardic and hypotensive post SBT, pt states she is tired and SOA TRINIDAD LANDIS, RN - 03/08/2022 6:22 EDT Electronically signed by [facility] Conversion Journeyman Apprentice Electricians Cerner at 12/21/2022 4:59 PM CDT documented in this encounter Plan of Treatment Not on file documented as of this encounter Visit Diagnoses Not on filedocumented in this encounter
--- OUTSIDE RECORDS SUMMARY | 2025-02-21 13:43 | XMS_ITS | Encounter Summary ---
Author Organization [employer] Address [address] [place] [address] Care Team Providers Care Patrol Officer Name Role Phone Unavailable Primary Care Provider Unavailabl e Encounter Details Date Type Department Care Team (Late st Contact Info) Description 04/08/2022 Transcribed Document [facility] [place] [facility] [address] ProviderFlorentino MD [place] [address] Social History Tobacco Use Types Packs/Day Years Used Date Smoking Tobacco: Never Assessed Comments Unknown Sex and Gender Information Value Date Recorded Sex Assigned at Not on file Legal Sex Female 1:44 PM CDT Gender Identity Not on file Sexual Orientation Not on file documented as of this encounter Miscellaneous Notes * Cerner Conversion Note - Florentino ProviderMD - 04/08/2022 8:19 AM CDT Admission History, Adult Entered On: 04/08/2022 13:05 EDT Performed On: 04/08/2022 8:19 EDT by Andrés Franco Rn Advance Directive Patient has Advance Directive *Q : No, patient requests information about Advance Directive Andrés Franco Rn - 04/08/2022 13:33 EDT Anesthesia/Transfusion History Family History of Anesthesia Reaction : Unknown Transfusion History : Unknown Family History of Anesthesia Reaction : Unknown Andrés Franco Rn - 04/08/2022 13:33 EDT Anticipated Discharge Needs Discharge To, Anticipated : Correction unit/facility Andrés Franco Rn - 04/08/2022 13:33 EDT Functional Assessment Living Situation : Correction unit/facility Current Home Treatments : Blood glucose monitoring, CPAP, Nebulizer treatments, Oxygen therapy, Wound care Wound Date of Last Care *Q : 04/07/2022 EDT Andrés Franco Rn - 04/08/2022 13:33 EDT General Info Mode of Arrival on Unit : Stretcher Legal Guardian : Unaccompanied Legal Guardian : No Contact Password : [id number] Want Family/Rep/Phys Notified of Admit : No Emergency Contact #1 : FREDO Azul Emergency Contact #1 Emergency Contact #1 Relationship : Son Emergency Contact #2 : Divine Azul Emergency Contact #2 Emergency Contact #2 Relationship : Daughter in low Identified Medical Decision Maker : FREDO Azul Identified Medical Decision Maker Chief Complaint : pt. via ems from [place] for AMS, agonal respirations, hypoxia and fall. on floor for unknown amount of time. pt. son reports decreased PO inatke and declining since yesterday. hx cardiac arrest x2, resp. failure, CKD, paralysis, PNA, sepsis. Information Obtained From : Other: em[facility], [place] nurse Primary Language : Burmese Communication Barrier : None Drywall Installer Needed : No Andrés Franco Rn - 04/08/2022 13:04 EDT Fall Risk Scales ALANIZ Hx Falls Immediate/Within 3 Months : Yes Alaniz Secondary Diagnosis : Yes ALANIZ Use of Ambulatory Aid : Bed rest/Nurse assist ALANIZ IV Therapy or IV Access : Yes Rodriguez Gait/Transferring : Normal, bedrest, immobile Alaniz Mental Status : Overestimates/Forgets limitations Alaniz Fall Risk Score : 75 ALANIZ Fall Scale Risk Level : 46 or > High Risk Girard Fall Interventions : Adequate lighting, Assistive devices [...] High Risk Interventions : Bed alarm on, Fall contract/letter per facility policy, Supervise toileting as indicated, Personal alarm on, Transport methods appropriate to patient, Toileting schedule, Visual cues in place, Wrist band (fall risk) on Fall Risk Scale Calc Temp : 0 Andrés Franco Rn - 04/08/2022 13:50 EDT ABCs Fall Injury Risk Identification : Bones ABC Fall Injury Risk : Moderate to high injury risk Andrés FrancoKathy - 04/08/2022 13:48 EDT Health Histories Smoking Status : Never (less than 100 in lifetime; none in last 30 days) Smokeless Tobacco Status : Never Salvador Andrés Villa Rn - 04/08/2022 13:48 EDT Social History (As Of: 04/08/2022 13:50:10 EDT) Height and Weight, Clinical Dosing Height Source : Estimated Height Entry Format : [place] Height, Feet : 5 ft(Converted to: 152 cm, 60 Inch) Height, Inches : 6 Inch(Converted to: 0 ft 6 Inch, 15.24 cm) Clinical Height : 167.64 cm Weight Source : Bed scale Weight Entry Format : Metric, kilograms Weight, Kilograms : 82 kg(Converted to: 180 lb 12 oz) Clinical Dosing Weight : 82 kg Body Surface Area (BSA) : 1.92 m2 Body Mass Index : 29.2 kg/m2 ([place]) [place] Body Weight : 59 kg Hemanth FrancoKathy Laguerre 04/08/2022 13:48 EDT Infectious Disease History Does patient have symptoms of COVID-19? : Yes Tested for COVID19 in the past 14 days : No, Patient stated Does the Patient state known exposure to a COVID-19 positive case in the last 14 days? : No Patient Vaccinated for COVID-19 : Fully vaccinated Salvador, Kathy Mcknight 04/08/2022 13:50 EDT Infectious Disease Risk Screening Grid Cough < 2 wks of unknown origin : NO Cough > 2 weeks : NO Blood in Sputum : NO Fever or self-reported Fever : NO Rash of unknown origin : NO Headache : NO Stiff neck : NO Night Sweats : NO Unexplained Weight Loss : NO Diarrhea (3 episode per day) : NO Andrés Franco Rn - 04/08/2022 13:50 EDT Physical contact outside [place] in the last 30 days : No Hospitalized in Foreign Country : No Infectious Disease History : Unable to assess INF Disease TB Screening Calc : 0 INF Disease Recent Travel Calc : 0 Andrés Franco Rn - 04/08/2022 13:50 EDT Influenza Vaccine Asmt, Adult Previous Vaccines from Immunization Schedule : No qualifying data available. Influenza Immunization, Current Season : Yes Andrés Franco Rn - 04/08/2022 13:50 EDT Pneumococcal Vaccine Previous Vaccines from Immunization Schedule : No qualifying data available. Pneumonia Immunization Received : No Pneumococcal Risk Assessment < Age 65 : None Andrés Franco Rn - 04/08/2022 13:50 EDT Order Details Patient Needs Meds Crushed/Liquid : Yes Meds Administered Via Tube : Yes Andrés Franco Rn - 04/08/2022 13:50 EDT Nutrition History Eating Poorly Due to Decreased Appetite : Yes Unplanned Weight Loss in Past 3-6 Months : No Malnutrition Screening Tool Total(mal) : 1 Malnutrition Screening Tool Risk Level : Patient not at risk Andrés Franco Rn - 04/08/2022 13:50 EDT [place] Suicide Severity Rating Scale (C-SSRS) CSSRS Past Month Wish to be : Unable to obtain CSSRS Past Month Suicidal Thoughts : Unable to obtain CSSRS Lifetime Suicide Behavior : Unable to obtain Suicide Severity Rating Score : -105 Suicide Severity Rating : Reassessment required Andrés Franco Rn - 04/08/2022 13:50 EDT Psychosocial History Currently in Unsafe Situation : No Andrés Franco Rn - 04/08/2022 13:50 EDT Sleep Apnea Risk Assmt BiPAP/CPAP Ordered for Home Use : Yes Hx of Obstructive Sleep Apnea Diagnosis : Yes BiPAP/CPAP Used at Home : Yes Age over 50 Years Old : Yes Gender Male : No Andrés Franco Rn - 04/08/2022 13:50 EDT Valuables and Belongings Valuables and Belongings : No personal devices, No personal items, No assistive devices, No respiratory devices, No medications Andrés Franco Rn - 04/08/2022 13:50 EDT documented in this encounter Plan of Treatment Not on file documented as of this encounter Visit Diagnoses Not on filedocumented in this encounter
--- OUTSIDE RECORDS SUMMARY | 2025-02-21 13:43 | XMS_ITS | Encounter Summary ---
Author Organization [employer] Address [address] [place] [address] Care Team Providers Care Printed Circuit Board Preassembler Name Role Phone Unavailable Primary Care Provider Unavailabl e Encounter Details Date Type Department Care Team (Late st Contact Info) Description 02/28/2022 Transcribed Document [facility] [place] Family Medicine [address] [place] [address] ProviderFlorentino MD [address] [place] [address] Social History Tobacco Use Types Packs/Day Years Used Date Smoking Tobacco: Never Assessed Comments Unknown Sex and Gender Information Value Date Recorded Sex Assigned at Not on file Legal Sex Female 1:44 PM CDT Gender Identity Not on file Sexual Orientation Not on file documented as of this encounter Miscellaneous Notes * Cerner Conversion Note - Florentino Lynne MD - 02/28/2022 1:07 PM CDT Patient: ALYSSA AZUL Age: 61 years Sex: Female : 1960 Associated Diagnoses: None Author: TORRES MARTINEZ MD-[facility] Subjective Stable overnight. Was able to move out of ICU to floor bed. Feeling better today. Objective VS/Measurements Vitals Signs (last 24 hrs) Last Charted Minimum Maximum Temp 98.2 (FEB 28 09:50) 97.9 (FEB 28 00:30) 98.2 (FEB 28 05:00) Mon HR 75 (FEB 28 10:58) 66 (FEB 27 15:05) 79 (FEB 28 09:50) Resp Rate 18 (FEB 28 10:58) 17 (FEB 28 09:50) H 84 (FEB 28 04:50) SBP H 154 (FEB 28 09:50) 134 (FEB 28 00:30) H 162 (FEB 27 13:57) DBP 78 (FEB 28 09:50) 68 (FEB 28 00:30) 85 (FEB 27 13:57) MAP 93 (FEB 28 09:50) 84 (FEB 28 00:30) 99 (FEB 27 13:57) SpO2 96 (FEB 28 10:58) L 93 (FEB 27 20:50) 99 (FEB 27 13:57) Intake & Output Totals Last 24 Hours (7a-7a) Intake (19 Events) Medications (173.91 mL) Enteral Additional Water Given (300 mL) Oral Intake (600 mL) Output (3 Events) Valenzuela Catheter (435 mL) Input Total: 1073.91 mL Output Total: 435 mL Balance: 638.91 mL Physical exam contact may be limited to avoid COVID-19 exposure General: No acute distress, WD chronically ill-appearing WF. Eye: Pupils are equal, round and reactive to light, Normal conjunctiva. HENT: Normocephalic, Oral mucosa is moist. Neck: Supple, No jugular venous distention. Respiratory: Respirations are non-labored, Symmetrical chest wall expansion. Cardiovascular: Trace edema. Gastrointestinal: Non-distended. Genitourinary: + Valenzuela. Integumentary: Warm, Dry, No rash. Neurologic: Alert, Oriented. Psychiatric: Cooperative, Appropriate mood & affect. Results Review Labs (Last four charted values) WBC 10.0 [...] (FEB 21) Impression and Plan ARF: Creatinine improving down to 2.9 with improved hemodynamic stability. Urine output nonoliguric but unmeasured. Patient thought to have prerenal azotemia due [...] indication for dialysis at this time. CKD 3:Baseline creatinine around 1.6. Patient follows with [facility]. Sepsis: Resolved. Patient with pneumonia and hip ulceration. Patient on antibiotics. HTN: Blood pressure on the high side at times. Continue current medications for now. Cover with PRN meds as needed. Monitor for now. Hypernatremia: Sodium increasing to 148. Sodium remains elevated. All fluids hypotonic. Increased p.o./PT free water. Hypokalemia: Stable overnight. Continue to replace as needed. Magnesium replaced to>2.0 to assist with renal potassium recovery.. Metabolic acidosis: Stable. Chloride levels improved. Initially bicarb levels quite low with renal failure along with chloride overload.. Patient was getting IV bicarb with improvement. Patient now on p.o. bicarb. Will titrate dose as needed. Anemia: Hemoglobin back down to 7.8 overnight.. Patient post recent transfusion for hemoglobin 6.8. Transfuse as needed for Hgb <7 Volume: Volume stable overnight.. Continue perfusion support. Decubitus ulcer post debridement Pneumonia: On antibiotics Respiratory failure: Extubated. High risk and complexity patient. documented in this encounter Plan of Treatment Not on file documented as of this encounter Visit Diagnoses Not on filedocumented in this encounter
--- OUTSIDE RECORDS SUMMARY | 2025-02-21 13:43 | XMS_ITS | Encounter Summary ---
Author Organization [employer] Address [address] [place] [address] Care Team Providers Care Orthotic And Prosthetic Technician Name Role Phone Unavailable Primary Care Provider Unavailabl e Encounter Details Date Type Department Care Team (Late st Contact Info) Description 02/28/2022 Transcribed Document [facility] [place] [facility] [place] [address] ProviderFlorentino MD [facility] [place] [address] Social History Tobacco Use Types Packs/Day Years Used Date Smoking Tobacco: Never Assessed Comments Unknown Sex and Gender Information Value Date Recorded Sex Assigned at Not on file Legal Sex Female 1:44 PM CDT Gender Identity Not on file Sexual Orientation Not on file documented as of this encounter Miscellaneous Notes * Cerner Conversion Note - Florentino Lynne MD - 02/28/2022 9:15 AM CDT [facility] Inpatient Documentation Entered On: 02/28/2022 10:48 EDT Performed On: 02/28/2022 9:15 EDT by Dory Helms Rn [facility] Admission Date : Admit Date 02/22/2022 00:[address] : Diagnosis (5) Cardiac arrest, cause unspecified Pneumonia, unspecified organism Acute kidney failure, unspecified Severe sepsis with septic shock 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 wound care team at bedside. Pt is awake, resting in bed on E[place]TA support surface. Patient agreeable to dressing change. Therapy turned off. Previous dressing removed. 1PC of black foam removed, consistent with previous clinician note. Wound cleansed with saline wound wash and patted dry with 4x4's. Wound measure 8.5cmx14.5cmx2.0cm. PI is improving. Wound vac system changed to VeraFlo, instilling 30mL NS Q2H for 2 minutes. Periwound prepped with no sting barrier wipe and adhesive drape. 1 PC of contact layer and 1 PC of silver foam placed to entire wound bed. Covered with vac drape. One trac pad placed with 1 PC of foam. Therapy restarted at 125mmHG. Pt tolerated dressing change. C RN spoke to primary RN Marycarmen regarding NPWT and exchanging fluids when needed. Verbalized understanding. Please contact the wound care team regarding any changes in skin integrity. Dory Helms Rn - 02/28/2022 10:39 EDT Skin Breakdown Prevention Interventions Patient Repositioned : Yes Dory Helms Rn - 02/28/2022 10:39 EDT Wound & Pressure Ulcer WOCN Wound Pressure Ulcer Documentation : Pressure Ulcer Assessment: Trochanter Left on 02/28/2022 09:15 by Dory Helms Rn Present on Adm to Hosp: Yes Stage: Stage 3 Device Related: Unknown Dressing Status: Clean, Dry, Intact Dressing Activity: Dressing changed Date of Dressing Change: 1:[id number]:0.037019:0:0 Wound Bed Description: Discolored, Epithelialization (pearly pink), Granulation (beefy red), Moist (pink), Undermining Bed Color(s): Brown, [place], Red Length: 8.5 Width: 14.5 Depth: 2 Drainage Amount: None Cleansing/Irrigation: Irrigated with sterile saline Dressing Type/Treatment: NPWT NPWT (PU) Activity: Dressing changed, Initial set-up application NPWT (PU) Inpatient Start Date: 1:[id number]:[id number]:0:0 NPWT (PU) Device used: VeraFlo Type of Foam or Gauze Removed (PU): Black Foam Number of Black Foam Removed (PU): 1 Type of Foam or Gauze Applied (PU): Contact layer, Silver Foam Number of Silver Foam Applied (PU): 1 Number of Contact Layer Pcs Appld (PU): 1 Number of TRAC Pads Applied (PU): 1 NPWT (PU) Pressure: Continuous NPWT (PU) Pressure Settin NPWT (PU) Canister Changed: Yes Comment: Veraflo instilling 30mL NS q2H for 2min WOCN Ostomy Documentation : Ostomy: Urostomy RLQ [...] Skin cleansed Ostomy Pouch Change Next Due: 1:[id number]:0.028680:0:0 Ostomy Skin Cleansed With: Water Ostomy Treatment Response: Expected Dory Helms Rn - 02/28/2022 10:39 EDT documented in this encounter Plan of Treatment Not on file documented as of this encounter Visit Diagnoses Not on filedocumented in this encounter
--- OUTSIDE RECORDS SUMMARY | 2025-02-21 13:43 | XMS_ITS | Encounter Summary ---
Author Organization [employer] [facility] Address [address] [place] [address] Care Team Providers Care Construction Sales Representative Name Role Phone Unavailable Primary Care Provider Unavailabl e Encounter Details Date Type Department Care Team (Late st Contact Info) Description 03/09/2022 Transcribed Document [facility] [place] [facility] [place] [address] ProviderFlorentino MD [address] [place] [address] Social History Tobacco Use Types Packs/Day Years Used Date Smoking Tobacco: Never Assessed Comments Unknown Sex and Gender Information Value Date Recorded Sex Assigned at Not on file Legal Sex Female 1:44 PM CDT Gender Identity Not on file Sexual Orientation Not on file documented as of this encounter Miscellaneous Notes * Cerner Conversion Note - Florentino ProviderMD - 03/09/2022 2:52 AM CDT Evaluation, Occupational Therapy Entered On: 03/10/2022 15:52 EDT Performed On: 03/10/2022 13:17 EDT by ASIA ROCA OTR/[place] General Information, OT Visit Type, OT : Initial evaluation Patient Orders : Order Date Order Ordering 03/09/2022 02:52 Occupational Therapy Evaluation and Treatme Ordered By: Elaine Ramires, PHYSICIAN-CLINIC 03/10/2022 10:38 OT Evaluation and Treatment Ordered By: JAMILAH GEORGES MD Active Diagnoses : No Qualifying Diagnoses Admission Date : 03/01/2022 17:45 Personal Devices : Personal Devices No Devices Recorded Assistive Devices : Assistive Devices No Devices Recorded Isolation Maintained : Other: Standard ASIA ROCA OTR/[place] - 03/10/2022 15:48 EDT General Status Patient Received Status : Long sitting in bed Treatment Start Time : 03/10/2022 13:17 EDT ASIA ROCA, OTR/[place] - 03/10/2022 15:48 EDT Patient Left Status : Long sitting in bed, RN/PCT informed, All needs met and within reach ASIA ROCAORLANDO/[place] - 03/10/2022 15:53 EDT RN/PCT Informed Comment : RN ok'ed. Client agrees to tx. Treatment End Time : 03/10/2022 14:00 EDT Treatment Time : 43 Minute(s) Actual Treatment Time : 43 Minute(s) LEVAR ROCAORLANDO JACKSON/[place] - 03/10/2022 15:48 EDT History and Environment, OT Living Situation, Therapy : Home Patient Lives With : Alone Persons Providing Information : Patient Home Equipment, Therapy : Wheelchair Home Setup : One story Stairs : No Ramp : Yes ASIA ROCA OTR/[place] - 03/10/2022 15:53 EDT Prior LOF Bathing, OT : Independent Prior LOF Bed Mobility : Independent Prior LOF Upper Body Dressing, OT : Independent Prior LOF Lower Body Dressing, OT : Independent Prior LOF Toileting : Independent Prior LOF Transfer : Independent Prior LOF Grooming, OT : Independent Prior LOF Wheel Chair Mobility : Independent Prior LOF for IADLs, OT : Independent ASIA ROCA OTR/[place] - 03/10/2022 15:53 EDT Prior LOF Assist with ADL Comment : Client reports performing depression transfers to w/c independently; will be moving in with son at discharge ABELINO ASIA, OTR/[place] - 03/10/2022 15:53 EDT Upper Extremity Upper Extremity Dominance : Right Right UE Active ROM : Impaired Right UE Strength : Impaired Left UE Active ROM : Impaired Left UE Strength : Impaired ABELINO ASIA, OTR/[place] - 03/10/2022 15:53 EDT Self Care/Home Management, OT Self Feeding Assist Level, OT : Activity does not occur Self Feeding Device Comment, OT : remains on tube feeding Grooming Assist Level, OT : Assist, minimal Bathing Assist Level, OT : Assist, total Upper Body Dressing Assist Level, OT : Assist, maximal Lower Body Dressing Assist Level, OT : Assist, total ASIA ROCA OTR/[place] - 03/10/2022 15:53 EDT Functional Mobility Mobility Grid Supine to Sit : Rehab Maximal assistance (Comment: x2 [ASIA ROCA, OTR/L - 03/10/2022 15:53 EDT] ) Sit to Supine : Rehab Total assistance (Comment: x2 [ASIA ROCA, OTR/L - 03/10/2022 15:53 EDT] ) ASIA ROCA OTR/L - 03/10/2022 15:53 EDT Cognition Assessment, OT Orientation : Oriented x 4 ASIA ROCA OTR/L - 03/10/2022 15:53 EDT Indication Assessment, OT Occupational Therapy Indicated : Yes Problem List, OT : Impaired, activities daily living, Impaired, endurance tolerance, Impaired, strength, Impaired, transfers ASIA ROCA OTR/L - 03/10/2022 15:53 EDT Plan of Care, OT OT Tx Plan/Goals Established w Patient : Yes OT Frequency Rehab : Five days per week OT Duration Rehab : Fourteen days ASIA ROCA OTR/L - 03/10/2022 15:53 EDT Sole Edge Inker Machine Goals, OT Self Feeding LTG Grid Goal #1 Activity : Self feeding Assist : Supervision or set-up Date to Meet : 03/24/2022 EDT Goal Status : Initial ASIA ROCA OTR/L - 03/10/2022 15:53 EDT Grooming LTG Grid Goal #1 Activity : Grooming Assist : Supervision or set up Date to Meet : 03/24/2022 EDT Goal Status : Initial goal ASIA ROCA OTR/L - 03/10/2022 15:53 EDT Dressing, Upper Body LTG Grid Goal #1 Activity : Dressing, Upper Body Assist : Supervision or set up Date to Meet : 03/24/2022 EDT Goal Status : Initial goal ASIA ROCA OTR/L - 03/10/2022 15:53 EDT Bed Mobility/ Bed Transfer LTG Grid Goal #1 Activity : Bed Mobility, Supine to Sit Assist : Assist, minimal Date to Meet : 03/24/2022 EDT Goal Status : Initial goal ASIA ROCA OTR/L - 03/10/2022 15:53 EDT Other LTG Grid Goal #1 Goal : Pt will complete strengthening program with verbal cues in preparation for transfers, ADLs Date to Meet : 03/24/2022 EDT Goal Status : Initial goal ASIA ROCA VARGHESE - 03/10/2022 15:53 EDT Treatment Note Additional Objective Information : Client completed transfer from supine to sit edge of bed with max A x 2, requires assistance for trunk control, has limited ability to maintain position in sitting, but improves with verbal cues, tactile cues, and repositioning. Client able to reach forward with support from therapist. Therapist facilitated session by positioning, providing physical assistance, verbal and tactile cues, guiding movement. Therapist instructed client in performing therex to increase arm strength in preparation for transfers, ADLs. Assessment : Client may benefit from OT services while inpatient to increase participation/independence with ADLs, fx mobility. Will likely require short-term rehab before d/c home with son. ASIA ROCAVARGHESE - 03/10/2022 15:53 EDT Pain Assessment Pain Scaled Used : 0-10 Pain scale Pain Score Pre-Intervention : 0 LEVAR ROCAVARGHESE JACKSON - 03/10/2022 15:53 EDT Image 1 - Images currently included in the form version of this document have not been included in the text rendition version of the form. Anticipated Discharge Needs, OT/PT Anticipated Discharge to : Rehab, high intensity ASIA ROCAVARGHESE - 03/10/2022 15:[address] [facility] OT Charges OT Ther Activities Ea 15 Min : 2 OT Eval Moderate Complexity : 1 JOANNE ROCAVARGHESE VÁSQUEZ - 03/10/2022 15:53 EDT documented in this encounter Plan of Treatment Not on file documented as of this encounter Visit Diagnoses Not on filedocumented in this encounter
--- OUTSIDE RECORDS SUMMARY | 2025-02-21 13:43 | XMS_ITS | Encounter Summary ---
Author Organization [employer] Address [address] [place] [address] Care Team Providers Care Extension Service Supervisor Name Role Phone Unavailable Primary Care Provider Unavailabl e Encounter Details Date Type Department Care Team (Late st Contact Info) Description 03/08/2022 Transcribed Document [facility] [place] [facility] [place] [address] ProviderFlorentino MD [address] [place] [address] Social History Tobacco Use Types Packs/Day Years Used Date Smoking Tobacco: Never Assessed Comments Unknown Sex and Gender Information Value Date Recorded Sex Assigned at Not on file Legal Sex Female 1:44 PM CDT Gender Identity Not on file Sexual Orientation Not on file documented as of this encounter Miscellaneous Notes * Cerner Conversion Note - Florentino Lynne MD - 03/08/2022 11:34 AM CDT Patient: ALYSSA AZUL Age: 61 years Sex: Female : 1960 Associated Diagnoses: None Author: PEÑA VAZQUEZ MD-INF Antibiotics: Zosyn CC: Sacral wound HPI: 02/22/22: Consultation at [facility]: 61 yo female with hx of paraplegia, diabetes, HTN and obesity. Presented to [facility] with complaints of fevers and chills [...] Follow by Dr. Pedro Mitchell at [facility] from 02/22-02/23. Dr. Gama Encinas resumed care at [facility] from 02/24 to 03/01 when she was transferred to [facility]. 03/02/22: Transfer to [facility] with initial hospital visit by Dr. Peña Vazquez: In summary, Patient was admitted to [facility] on 02/17 for suspected pneumonia and debridement of left buttock DTI. On 02/21 she had cardiac arrest and was emergently intubated. She was transferred to [facility] on 02/22 for higher level of care. She was extubated on 02/22 and re-intubated later that day. She was extubated again on 02/25, but failed BiPAP on 03/01 and was re-intubated. She was being treated by Dr. Gama Encinas for suspected aspiration pneumonia and left gluteal wound infection with Zosyn. She was transferred to [facility] on 03/01 for pulmonology coverage. The patient [...] line (was present on admission to [facility] on 02/22 and likely placed at OSH) [...] staff on vent no fever no rash 03/08 - no Hx available ROS: unable to obtain secondary to critical condition - discussed with staff - on vent sedated had bronch no new GI CR issues - gets close to weaning, then has to back on vent Past Medical History: paraplegia, diabetes, HTN and obesity Past Surgical History: I&D of left gluteal wound at OSH x2 Family History: Unable to confirm Social History: lives in [place] Objective: Vitals Signs (last 24 hrs) Last Charted Minimum Maximum Temp 98.5 (MAR 08 08:) 98.5 (MAR 08 08:00) H 100.4 (MAR 07:00) Mon HR 100 (MAR 08 10:00) 49 (MAR 08 06:29) 115 (MAR 07 17:00) Resp Rate L 9 (MAR 08:00) L 3 (MAR 08 05:30) H 32 (MAR 08 06:10) SBP 140 (MAR 08:00) L 87 (MAR 08 06:20) H 182 (MAR 08:00) DBP 70 (MAR 08 10:00) L 52 (MAR 08:20) H 93 (MAR 08:00) MAP 96 (MAR 08 10:00) 67 (MAR 08 06:20) 130 (MAR 08:00) SpO2 97 (MAR 08 10:00) L 83 (MAR 07 15:31) 100 (MAR 07 16:00) PE: General: Patient sedated on mechanical ventilation [...] Plt L 121 (MAR 08) L 127 (FEB 08) L 124 (FEB 06) L 161 (MAR 04) Na 143 (MAR 08) 144 (MAR 07) H 147 (MAR 06) H 148 (MAR 05) K 3.6 (MAR 08) L 3.4 (MAR 08) L 3.4 (MAR 07) L 3.3 (MAR 07) Cl H 113 (MAR 08) H 117 (MAR [...] 02) AST L 4 (MAR 08) 7 (FEB 08) 14 (MAR 06) 14 (MAR 05) ALT L 10 (MAR 08) L 11 (FEB 08) 13 (MAR 06) 15 (MAR 05) ALK [...] 2.9 (MAR 06) L 2.8 (MAR 05) MICRO: Outside BAL with gram-negative diplococci IMAGING: Radiology Results (Last 48 hours) [id number] -- 03/01/2022 17:45 CR Chest 1 Vw Portable (03/06/2022 12:33) [...] MD TIFFANY Andre Chest 1 Vw Portable (03/07/2022 15:48) Result: PORTABLE CHEST 03/07/2022 3:38 PMHISTORY: Shortness of breathCOMPARISON: 12 hours priorFINDINGS: The cardiac silhouette is normal in size. The mediastinal andhilar contours are unremarkable. The lungs are clear. There is nopneumothorax. The visualized osseous structures demonstrate no acuteabnormalities.IMPRESSION: No acute cardiopulmonary process.Images reviewed, interpreted, and dictated by Dr. Aspen Street.Transcribed by Caroline Scales (R).I have personally viewed, interpreted and dictated the examination. Chayo read and agree with the above final transcribed report. IMPRESSION: - Right perihilar consolidation suspect aspiration pneumonia now with second reintubation - Large left gluteal soft tissue infection, ulceration, necrosis, to level of soft tissue: Status post I&D x3 at [facility]. - Acute hypoxic respiratory failure: Pneumonia & edema - Aspiration pneumonia: clear evidence of aspiration - Pulmonary edema - Cardiac arrest at outside hospital prior to transfer to [facility] - Metabolic acidosis: improved - Acute kidney [...] any questions this weekend Electronically signed by [facility] Conversion [employer] Counselor Cerner at 12/21/2022 5:03 PM CDT documented in this encounter Plan of Treatment Not on file documented as of this encounter Visit Diagnoses Not on filedocumented in this encounter
--- OUTSIDE RECORDS SUMMARY | 2025-02-21 13:43 | XMS_ITS | Encounter Summary ---
Author Organization [employer] Address [address] [place] [address] Care Team Providers Care Vascular Ultrasound Technologist Name Role Phone Unavailable Primary Care Provider Unavailabl e Encounter Details Date Type Department Care Team (Late st Contact Info) Description 04/08/2022 Transcribed Document [facility] [place] [address] [place] [address] ProviderFlorentino MD [address] [place] [address] Social History Tobacco Use Types [...]
--- OUTSIDE RECORDS SUMMARY | 2025-02-21 13:43 | XMS_ITS | Encounter Summary ---
Author Organization [employer] Address [address] [place] [address] Care Team Providers Care Suture Gauger Name Role Phone Unavailable Primary Care Provider Unavailabl e Encounter Details Date Type Department Care Team (Late st Contact Info) Description 03/09/2022 Transcribed Document [facility] [place] Medicine [address] [place] [address] ProviderFlorentino MD [address] [place] [...] Conversion Note - Florentino ProviderMD - 03/09/2022 4:39 AM CDT Chart Check - Review Order Profile Entered On: 03/09/2022 4:39 EDT Performed On: 03/09/2022 4:39 EDT by TRINIDAD LANDIS RN Chart Check Powerplans Initiated/Discontinued as Appropriate : Yes All Active Orders Reviewed : Yes TRINIDAD LANDIS RN - 03/09/2022 4:39 EDT documented in this encounter Plan of Treatment Not on file documented as of this encounter Visit Diagnoses Not on filedocumented in this encounter
--- OUTSIDE RECORDS SUMMARY | 2025-02-21 13:43 | XMS_ITS | Encounter Summary ---
Author Organization [employer] Address [address] [place] [address] Care Team Providers Care Director Operations Name Role Phone Unavailable Primary Care Provider Unavailabl e Encounter Details Date Type Department Care Team (Late st Contact Info) Description 04/08/2022 Transcribed Document [facility] [place] [address] [place] [address] ProviderFlorentino MD [address] [place] [address] Social History Tobacco Use Types Packs/Day Years Used Date Smoking Tobacco: Never Assessed Comments Unknown Sex and Gender Information Value Date Recorded Sex Assigned at Not on file Legal Sex Female 1:44 PM CDT Gender Identity Not on file Sexual Orientation Not on file documented as of this encounter Miscellaneous Notes * Cerner Conversion Note - Florentino ProviderMD - 04/08/2022 9:59 AM CDT RX Interventions Entered On: 04/08/2022 10:01 EDT Performed On: 04/08/2022 9:59 EDT by Navin Saavedra Pharmacist-Resident Clinical Interventions Chart Review : Yes Navin Saavedra Pharmacist-Resident - 04/08/2022 9:59 EDT Chart Review Chart Review, Order : Zosyn dosing per pharmacy septic shock Chart Review, Response : Accepted Chart Review, Name : FELIPA WILSON PA-C Chart Review, Notes : Pip/tazo 4.5 g IV x1 then 2.25g IV q8h in setting of ARF Chart Review, Value : 0 Dollar Chart Review, Time : 20 Minute(s) Navin Saavedra Pharmacist-Resident - 04/08/2022 9:59 EDT documented in this encounter Plan of Treatment Not on file documented as of this encounter Visit Diagnoses Not on filedocumented in this encounter
--- OUTSIDE RECORDS SUMMARY | 2025-02-21 13:43 | XMS_ITS | Encounter Summary ---
Author Organization [employer] Address [address] [place] [address] Care Team Providers Care Environmental Compliance Technician Name Role Phone Unavailable Primary Care Provider Unavailabl e Encounter Details Date Type Department Care Team (Late st Contact Info) Description 03/09/2022 Transcribed Document [facility] [place] Family Medicine [address] [place] [address] ProviderFlorentino MD [address] [place] [address] Social History Tobacco Use Types Packs/Day Years Used Date Smoking Tobacco: Never Assessed Comments Unknown Sex and Gender Information Value Date Recorded Sex Assigned at Not on file Legal Sex Female 1:44 PM CDT Gender Identity Not on file Sexual Orientation Not on file documented as of this encounter Miscellaneous Notes * Cerner Conversion Note - Florentino ProviderMD - 03/09/2022 3:55 PM CDT Patient: ALYSSA AZUL Age: 61 Years Sex: Female : 1960 Subjective DOS: 03/09/2022 Pt seen and examined at bedside. Much improved. Extubated since yesterday, off drips,, off sedation, awake, alert communicative, responsive, following commands, on CPAP overnight Vital Signs T: 37.3 ??C TMIN: 37.1 ??C TMAX: 37.3 ??C HR: 82(Monitored) RR: 23 BP: 160/74 SpO2: 99% WT: 92.7 kg Oxygen Settings (Last) Oxygen Therapy Mode: Nasal cannula (03/09/22 12:30:00) Oxygen Flow Rate: 5 Liter/Min (03/09/22 12:30:00) Intake & Output Totals Last 24 Hours (7a-7a) Input Total: 2560.36 mL Output Total: 2325 mL Balance: 235.36 mL Physical Exam General: No acute distress, [...] appreciated- recommend wound care consult - d/w cloth picker today- wound vac applied on 02/24 pneumonia [...] the patient due to divert status. Summary [facility] stay: patient admitted to [facility] on 02/17/22, temp in ER [...] no pathology sent. Patient transferred to [facility] at midnight on 02/22. 02/22: extubated, given [...] to 22 units for optimal glycemic control Disposition: critically ill, in ICU, high risk and complexity patient pending consultants' recommendations, discharge is uncertain at this time [3] VTE Prophylaxis - Medical Heparin 5,000 Units, SubCutaneous, Inj, Q8H, Routine, Start 03/01/22 22:00:00 EDT, 03/01/22 19:01:00 EDT (GENI ORTIZ) Sequential Compression Device Start: 03/01/22 19:03:00 EDT, Bilateral, Length: Knee High, While patient is in bed, [facility] Sequential Compression Device Start: 03/01/22 18:51:00 EDT, Bilateral, Length: Knee High, While patient is in bed, Continuous [facility]) Medications acetaminophen, 650 mg= 2 [...] mL, IV Push, Q6H, PRN insulin glargine, 18 Units= 0.18 mL, SubCutaneous, Daily insulin regular sliding scale, [...] Test Name Test Result Date/Time pH Art 7.32 (Low) 03/09/2022 07:09 EDT pCO2 Art 51.8 mmHg (High) 03/09/2022 07:09 EDT pO2 Art 110.0 mmHg (High) 03/09/2022 07:09 EDT HCO3 Art 26.8 mmol/L (High) 03/09/2022 07:09 EDT BE Art 0.4 mmol/L 03/09/2022 07:09 EDT sO2 Art >99.1 % 03/09/2022 07:09 EDT tHb Art 7.9 Gram/dL (Low) 03/09/2022 07:09 EDT FHHb <2.4 % 03/09/2022 07:09 EDT Delivery Device Type Art Cannula 03/09/2022 07:09 EDT Temperature, F Art 98.6 Deg F 03/09/2022 07:09 EDT Art Blood Gas (ABG) Site Arterial Line 03/09/2022 07:09 EDT Acceptable Hunag's Test Art Acceptable 03/09/2022 07:09 EDT Ventilator Mode Art N/A 03/09/2022 07:09 EDT Oxygen Flow Rate Art 4.0 Liter 03/09/2022 07:09 EDT ABG Num of Draw Attempts 1 03/09/2022 07:09 EDT Sodium Level 145 mmol/L 03/09/2022 03:37 EDT Potassium Level 3.8 mmol/L 03/09/2022 03:37 EDT Chloride Level 114 mmol/L (High) 03/09/2022 03:37 EDT Carbon Dioxide Level 26 mmol/L 03/09/2022 03:37 EDT Anion Gap 9 03/09/2022 03:37 EDT Glucose Level 233 mg/dL (High) 03/09/2022 03:37 EDT Blood Urea Nitrogen 39 mg/dL (High) 03/09/2022 03:37 EDT Creatinine Level 1.90 mg/dL (High) 03/09/2022 03:37 EDT eGFR 33 mL/min/1.73m2 (Low) 03/09/2022 03:37 EDT eGFR NonAfrican 27 mL/min/1.73m2 (Low) 03/09/2022 03:37 EDT Bun/Creatinine 20.5 (High) 03/09/2022 03:37 EDT Calcium Level 8.7 mg/dL 03/09/2022 03:37 EDT Protein Total 6.6 Gram/dL 03/09/2022 03:37 EDT Albumin Level 2.3 Gram/dL (Low) 03/09/2022 03:37 EDT Globulin 4.3 Gram/dL 03/09/2022 03:37 EDT A/G Ratio 0.5 (Low) 03/09/2022 03:37 EDT Bilirubin Total 0.4 mg/dL 03/09/2022 03:37 EDT Alk Phos 44 Units/Liter 03/09/2022 03:37 EDT AST 9 Units/Liter 03/09/2022 03:37 EDT ALT 11 Units/Liter (Low) 03/09/2022 03:37 EDT Magnesium Level 1.7 mg/dL 03/09/2022 03:37 EDT Phosphorus 3.0 mg/dL 03/09/2022 03:37 EDT Device Comment 1 Notified Nurse RBV 03/09/2022 11:43 EDT Device Comment 1 Notified Nurse RBV 03/09/2022 05:28 EDT Device Comment 1 Notified Nurse RBV 03/08/2022 23:33 EDT Device Comment 1 Notified Nurse RBV 03/08/2022 17:31 EDT Glucose POC2 228 mg/dL (High) 03/09/2022 11:43 EDT Glucose POC2 218 mg/dL (High) 03/09/2022 05:28 EDT Glucose POC2 194 mg/dL (High) 03/08/2022 23:33 EDT Glucose POC2 247 mg/dL (High) 03/08/2022 17:31 EDT CRP 9.84 mg/dL (High) 03/09/2022 03:37 EDT Lactate Dehydrogenase 143 Units/Liter 03/09/2022 03:37 EDT Lactic Acid Level 0.5 mmol/L 03/09/2022 03:37 EDT Calcium Ionized 1.25 mmol/L 03/09/2022 03:37 EDT CK 19 Units/Liter (Low) 03/09/2022 03:37 EDT WBC 8.6 K/uL 03/09/2022 03:37 EDT RBC 2.77 Million/uL (Low) 03/09/2022 03:37 EDT Hgb 7.8 g/dL (Low) 03/09/2022 03:37 EDT Hct 25.5 % (Low) 03/09/2022 03:37 EDT MCV 92.1 fL 03/09/2022 03:37 EDT MCH 28.2 pg 03/09/2022 03:37 EDT MCHC 30.6 Gram/dL (Low) 03/09/2022 03:37 EDT Platelet Count 131 K/uL (Low) 03/09/2022 03:37 EDT MPV 11.1 fL 03/09/2022 03:37 EDT RDW 16.5 % (High) 03/09/2022 03:37 EDT Neut % 82.5 % (High) 03/09/2022 03:37 EDT Neut # 7.13 K/uL (High) 03/09/2022 03:37 EDT Lymph % 8.4 % (Low) 03/09/2022 03:37 EDT Lymph # 0.73 x10(3)/uL (Low) 03/09/2022 03:37 EDT [place] % 5.7 % 03/09/2022 03:37 EDT [place] # 0.49 K/uL 03/09/2022 03:37 EDT Eos % 1.8 % 03/09/2022 03:37 EDT Eos # 0.16 x10(3)/uL 03/09/2022 03:37 EDT Baso % 0.7 % 03/09/2022 03:37 EDT Baso # 0.06 x10(3)/uL 03/09/2022 03:37 EDT Slide Review No 03/09/2022 03:37 EDT IG# 0.08 x10(3)/uL (High) 03/09/2022 03:37 EDT IG% 0.90 % (High) 03/09/2022 03:37 EDT Fibrinogen Level 767 mg/dL (Critical) 03/09/2022 03:37 EDT Procalcitonin 1.00 ng/mL 03/09/2022 03:37 EDT documented in this encounter Plan of Treatment Not on file documented as of this encounter Visit Diagnoses Not on filedocumented in this encounter
--- OUTSIDE RECORDS SUMMARY | 2025-02-21 13:43 | XMS_ITS | Encounter Summary ---
Author Organization [employer] Address [address] [place] [id number] Care Team Providers Care Instant Printer Operator Name Role Phone Unavailable Primary Care Provider Unavailabl e Encounter Details Date Type Department Care Team (Late st Contact Info) Description 04/08/2022 Transcribed Document [facility] Family Medicine [address] [place] [address] ProviderFlorentino MD [address] [place] [address] Social History Tobacco Use Types Packs/Day Years Used Date Smoking Tobacco: Never Assessed Comments Unknown Sex and Gender Information Value Date Recorded Sex Assigned at Not on file Legal Sex Female 1:44 PM CDT Gender Identity Not on file Sexual Orientation Not on file documented as of this encounter Miscellaneous Notes * Cerner Conversion Note - Florentino ProviderMD - 04/08/2022 9:11 AM CDT Consult Phone Call Documentation Entered On: 04/08/2022 10:21 EDT Performed On: 04/08/2022 9:11 EDT by Junie Enriquez Scheduler Phone Call for Consults Consult Phone Call/Page Attempt : First call Consult Reason : septic shock, UTI Physician Requested for Consult : HIGINIO AREVALO MD-INF Provider Service Notified Name : Infectious Disease Consult, Additional Information : Office aware of consult Junie Enriquez Scheduler - 04/08/2022 10:18 EDT documented in this encounter Plan of Treatment Not on file documented as of this encounter Visit Diagnoses Not on filedocumented in this encounter
--- OUTSIDE RECORDS SUMMARY | 2025-02-21 13:43 | XMS_ITS | Encounter Summary ---
Author Organization [employer] Address [address] [place] [address] Care Team Providers Care Measurement Department Chief Clerk Name Role Phone Unavailable Primary Care Provider Unavailabl e Encounter Details Date Type Department Care Team (Late st Contact Info) Description 04/20/2022 Transcribed Document [facility] [place] [address] [place] [address] ProviderFlorentino MD [address] [place] [address] Social History Tobacco Use Types Packs/Day Years Used Date Smoking Tobacco: Never Assessed Comments Unknown Sex and Gender Information Value Date Recorded Sex Assigned at Not on file Legal Sex Female 1:44 PM CDT Gender Identity Not on file Sexual Orientation Not on file documented as of this encounter Miscellaneous Notes * Cerner Conversion Note - Historical ProviderMD - 04/20/2022 2:00 AM CDT Central Office Repairer Details Entered On: 04/20/2022 5:09 EDT Performed On: 04/20/2022 2:00 EDT by Arturo Godoy RN Order Details Transport Mode Order Detail : Bed (including specialty) Isolation Precautions Order Detail : Standard Precautions Order Detail : 0 Lift/Transfer : Maximal assist Central Line Order Detail : Yes Room Service : Appropriate Arterial Line : Yes Patient Needs Meds Crushed/Liquid : No Arturo Godoy RN - 04/20/2022 5:09 EDT documented in this encounter Plan of Treatment Not on file documented as of this encounter Visit Diagnoses Not on filedocumented in this encounter
--- OUTSIDE RECORDS SUMMARY | 2025-02-21 13:43 | XMS_ITS | Encounter Summary ---
Author Organization [employer] Address [address] [place] [address] Care Team Providers Care Court Transcriber Name Role Phone Unavailable Primary Care Provider Unavailabl e Encounter Details Date Type Department Care Team (Late st Contact Info) Description 04/08/2022 Transcribed Document [facility] [place] [address] [place] [address] ProviderFlorentino MD [address] [place] [address] Social History Tobacco Use Types [...] Tech-Health Unit Coord - 04/09/2022 1:04 EDT Electronically signed by Bruce Shell Conversion Electrical Assemblies Supervisor Cerner at 12/21/2022 5:03 PM CDT documented in this encounter Plan of Treatment Not on file documented as of this encounter Visit Diagnoses Not on filedocumented in this encounter
--- OUTSIDE RECORDS SUMMARY | 2025-02-21 13:43 | XMS_ITS | Encounter Summary ---
Author Organization [employer] Address [address] [place] [address] Care Team Providers Care Costume Technician Name Role Phone Unavailable Primary Care Provider Unavailabl e Encounter Details Date Type Department Care Team (Late st Contact Info) Description 03/08/2022 Transcribed Document [facility] [place] Family Medicine [address] [place] [address] ProviderFlorentino MD [address] [place] [address] Social History Tobacco Use Types Packs/Day Years Used Date Smoking Tobacco: Never Assessed Comments Unknown Sex and Gender Information Value Date Recorded Sex Assigned at Not on file Legal Sex Female 1:44 PM CDT Gender Identity Not on file Sexual Orientation Not on file documented as of this encounter Miscellaneous Notes * Cerner Conversion Note - Florentino ProviderMD - 03/08/2022 3:13 PM CDT Patient: ALYSSA AZUL Age: 61 Years Sex: Female : 1960 Subjective DOS 03/08/2022 Seen and examined at bedside in ICU. intubated. following commands. off sedation. more alert and communicative. [1] Vital Signs T: 37.2 ??C TMIN: 36.9 ??C TMAX: 38 ??C HR: 103(Monitored) RR: 17 BP: 123/61 SpO2: 92% Oxygen Settings (Last) Oxygen Therapy Mode: Mechanical ventilation (03/08/22 11:33:00) Intake & Output Totals Last 24 Hours (7a-7a) Input Total: 3397.02 mL Output Total: 1775 mL Balance: 1622.02 mL Physical Exam General: No acute distress, [...] appreciated- recommend wound care consult - d/w binder lockstitch today- wound vac applied on 02/24 pneumonia [...] the patient due to divert status. Summary [facility] stay: patient admitted to [facility] on 02/17/22, temp in ER [...] Hypokalemia, repleted 03/05 nephro follwoing, Had bronchoscopy 7/5 by pulm, ID follwoing. repeat labs and monitor 03/06 still critically in ICU. nephro, ID, and pulm following. 03/07 still critically in ICU. nephro, ID, and pulm following. repeat labs and monitor 03/08 still critically in ICU. nephro, ID, and pulm following. repeat labs and monitor. increased basal insulin from 12 to 18 units for optimal glycemic control Disposition: critically ill, in ICU, high risk and complexity patient pending consultants' recommendations, discharge is uncertain at this time [3] VTE Prophylaxis - Medical Heparin 5,000 Units, SubCutaneous, Inj, Q8H, Routine, Start 03/01/22 22:00:00 EDT, 03/01/22 19:01:00 EDT (GENI ORTIZ) Sequential Compression Device Start: 03/01/22 19:03:00 EDT, Bilateral, Length: Knee High, While patient is in bed, [facility] Sequential Compression Device Start: 03/01/22 18:51:00 EDT, Bilateral, Length: Knee High, While patient is in bed, Continuous [facility]) Medications acetaminophen, 650 mg= 2 [...] 60 mEq= 3 Tab, Oral, Q2H, PRN senna, 8.8 mg= 5 mL, Oral, At Bedtime sodium phosphate sodium phosphate Zofran, 4 mg= 2 mL, IV Push, Q6H, PRN Zosyn + Dextrose 5% in Water intravenous solution 50 mL Lab Results Test Name Test Result Date/Time pH Art 7.39 03/08/2022 14:25 EDT pH Art 7.41 03/07/2022 15:42 EDT pCO2 Art 40.9 mmHg 03/08/2022 14:25 EDT pCO2 Art 36.2 mmHg 03/07/2022 15:42 EDT pO2 Art 88.5 mmHg 03/08/2022 14:25 EDT pO2 Art 64.5 mmHg (Low) 03/07/2022 15:42 EDT HCO3 Art 25.0 mmol/L 03/08/2022 14:25 EDT HCO3 Art 22.9 mmol/L 03/07/2022 15:42 EDT BE Art -1.5 mmol/L 03/07/2022 15:42 EDT sO2 Art 98.4 % 03/08/2022 14:25 EDT sO2 Art 94.1 % (Low) 03/07/2022 15:42 EDT tHb Art 8.3 Gram/dL (Low) 03/08/2022 14:25 EDT tHb Art 8.9 Gram/dL (Low) 03/07/2022 15:42 EDT FHHb <2.4 % 03/08/2022 14:25 EDT FHHb 5.7 % 03/07/2022 15:42 EDT ctO2 11.4 mmol/L 03/08/2022 14:25 EDT ctO2 11.5 mmol/L 03/07/2022 15:42 EDT FIO2 Art 50 03/08/2022 14:25 EDT FIO2 Art 100 03/07/2022 15:42 EDT Delivery Device Type Art Ventilator 03/08/2022 14:25 EDT Delivery Device Type Art Ventilator 03/07/2022 15:42 EDT Temperature, F Art 98.6 Deg F 03/08/2022 14:25 EDT Temperature, F Art 98.6 Deg F 03/07/2022 15:42 EDT Art Blood Gas (ABG) Site Arterial Line 03/08/2022 14:25 EDT Acceptable Huang's Test Art Acceptable 03/08/2022 14:25 EDT Acceptable Huang's Test Art Non-Applicable 03/07/2022 15:42 EDT Ventilator Mode Art Pressure Support Ventilation 03/08/2022 14:25 EDT Ventilator Mode Art AC 03/07/2022 15:42 EDT Tidal Volume Set Art 400.0 mL 03/07/2022 15:42 EDT Set Rate Art 16.0 03/07/2022 15:42 EDT Respiratory Rate Art 24.0 03/08/2022 14:25 EDT Respiratory Rate Art 20.0 03/07/2022 15:42 EDT CPAP/PEEP Art 5.0 cmH2O 03/08/2022 14:25 EDT CPAP/PEEP Art 8.0 cmH2O 03/07/2022 15:42 EDT ABG Num of Draw Attempts 1 03/08/2022 14:25 EDT ABG Num of Draw Attempts 1 03/07/2022 15:42 EDT PaO2/FiO2 calculated 177 03/08/2022 14:25 EDT PaO2/FiO2 calculated 64 03/07/2022 15:42 EDT Sodium Level 143 mmol/L 03/08/2022 03:04 EDT Potassium Level 3.6 mmol/L 03/08/2022 09:14 EDT Potassium Level 3.4 mmol/L (Low) 03/08/2022 03:04 EDT Chloride Level 113 mmol/L (High) 03/08/2022 03:04 EDT Carbon Dioxide Level 22 mmol/L 03/08/2022 03:04 EDT Anion Gap 11 03/08/2022 03:04 EDT Glucose Level 300 mg/dL (High) 03/08/2022 03:04 EDT Blood Urea Nitrogen 37 mg/dL (High) 03/08/2022 03:04 EDT Creatinine Level 2.00 mg/dL (High) 03/08/2022 03:04 EDT eGFR 31 mL/min/1.73m2 (Low) 03/08/2022 03:04 EDT eGFR NonAfrican 25 mL/min/1.73m2 (Low) 03/08/2022 03:04 EDT Bun/Creatinine 18.5 03/08/2022 03:04 EDT Calcium Level 8.7 mg/dL 03/08/2022 03:04 EDT Protein Total 6.4 Gram/dL 03/08/2022 03:04 EDT Albumin Level 2.2 Gram/dL (Low) 03/08/2022 03:04 EDT Globulin 4.2 Gram/dL 03/08/2022 03:04 EDT A/G Ratio 0.5 (Low) 03/08/2022 03:04 EDT Bilirubin Total 0.7 mg/dL 03/08/2022 03:04 EDT Alk Phos 40 Units/Liter 03/08/2022 03:04 EDT AST 4 Units/Liter (Low) 03/08/2022 03:04 EDT ALT 10 Units/Liter (Low) 03/08/2022 03:04 EDT Device Comment 1 Notified Nurse RBV 03/08/2022 11:27 EDT Device Comment 1 Notified Nurse RBV 03/08/2022 05:32 EDT Device Comment 1 Notified Nurse RBV 03/07/2022 23:25 EDT Device Comment 1 Notified Nurse RBV 03/07/2022 17:20 EDT Glucose POC2 269 mg/dL (High) 03/08/2022 11:27 EDT Glucose POC2 294 mg/dL (High) 03/08/2022 05:32 EDT Glucose POC2 276 mg/dL (High) 03/07/2022 23:25 EDT Glucose POC2 295 mg/dL (High) 03/07/2022 17:20 EDT Calcium Ionized 1.25 mmol/L 03/08/2022 03:04 EDT WBC 8.9 K/uL 03/08/2022 03:04 EDT RBC 2.82 Million/uL (Low) 03/08/2022 03:04 EDT Hgb 7.8 g/dL (Low) 03/08/2022 03:04 EDT Hgb 7.8 g/dL (Low) 03/07/2022 21:05 EDT Hgb 8.0 g/dL (Low) 03/07/2022 18:19 EDT Hct 25.6 % (Low) 03/08/2022 03:04 EDT Hct 25.1 % (Low) 03/07/2022 21:05 EDT Hct 26.0 % (Low) 03/07/2022 18:19 EDT MCV 90.8 fL 03/08/2022 03:04 EDT MCH 27.7 pg 03/08/2022 03:04 EDT MCHC 30.5 Gram/dL (Low) 03/08/2022 03:04 EDT Platelet Count 121 K/uL (Low) 03/08/2022 03:04 EDT MPV 11.2 fL 03/08/2022 03:04 EDT RDW 16.8 % (High) 03/08/2022 03:04 EDT Neut % 83.7 % (High) 03/08/2022 03:04 EDT Neut # 7.42 K/uL (High) 03/08/2022 03:04 EDT Lymph % 9.1 % (Low) 03/08/2022 03:04 EDT Lymph # 0.81 x10(3)/uL (Low) 03/08/2022 03:04 EDT [place] % 5.0 % 03/08/2022 03:04 EDT [place] # 0.44 K/uL 03/08/2022 03:04 EDT Eos % 1.2 % 03/08/2022 03:04 EDT Eos # 0.11 x10(3)/uL 03/08/2022 03:04 EDT Baso % 0.3 % 03/08/2022 03:04 EDT Baso # 0.03 x10(3)/uL 03/08/2022 03:04 EDT Slide Review No 03/08/2022 03:04 EDT IG# 0.06 x10(3)/uL (High) 03/08/2022 03:04 EDT IG% 0.70 % (High) 03/08/2022 03:04 EDT Urine Type. U Suprapubic 03/07/2022 21:05 EDT Urine Color Light-Yellow 03/07/2022 21:05 EDT Urine Appearance Turbid (Abnormal) 03/07/2022 21:05 EDT Urine Specific [place] 1.015 03/07/2022 21:05 EDT Urine pH Dipstick 6.5 03/07/2022 21:05 EDT Urine Leukocyte Esterase 250 (Abnormal) 03/07/2022 21:05 EDT Urine Nitrite NEGATIVE2 03/07/2022 21:05 EDT Urine Protein Dipstick 2+ (Abnormal) 03/07/2022 21:05 EDT Urine Glucose Dipstick 3+ (Abnormal) 03/07/2022 21:05 EDT Urine Ketones Dipstick NEGATIVE2 03/07/2022 21:05 EDT Urine Urobilinogen Dipstick Normal2 03/07/2022 21:05 EDT Urine Bilirubin Dipstick NEGATIVE2 03/07/2022 21:05 EDT Urine Blood Dipstick TR (Abnormal) 03/07/2022 21:05 EDT Ur RBC 21-50 (Abnormal) 03/07/2022 21:05 EDT Ur WBC 11-20 (Abnormal) 03/07/2022 21:05 EDT Ur Bacteria 1+ (Abnormal) 03/07/2022 21:05 EDT Ur Mucous 1+ (Abnormal) 03/07/2022 21:05 EDT Ur Squamous Epithelial Cells NONE 03/07/2022 21:05 EDT Ur Yeast, Budding 4+ (Abnormal) 03/07/2022 21:05 EDT Urine Culture if Indicated Culture Ordered 03/07/2022 21:05 EDT [1] Hospitalist Progress Note - SOAP; Elaine Ramires, PHYSICIAN-CLINIC 03/08/2022 15:08 EDT [2] Hospitalist Progress Note - SOAP; Elaine Ramires, PHYSICIAN-CLINIC 03/08/2022 15:08 EDT [3] Hospitalist Progress Note - SOAP; Elaine Ramires, PHYSICIAN-CLINIC 03/08/2022 15:08 EDT documented in this encounter Plan of Treatment Not on file documented as of this encounter Visit Diagnoses Not on filedocumented in this encounter
--- OUTSIDE RECORDS SUMMARY | 2025-02-21 13:43 | XMS_ITS | Encounter Summary ---
Author Organization [employer] Address [address] [place] [address] Care Team Providers Care Sales Intern Name Role Phone Unavailable Primary Care Provider Unavailabl e Encounter Details Date Type Department Care Team (Late st Contact Info) Description 04/08/2022 Transcribed Document [facility] [place] [address] [place] [address] ProviderFlorentino MD [address] [place] [address] Social History Tobacco Use Types Packs/Day Years Used Date Smoking Tobacco: Never Assessed Comments Unknown Sex and Gender Information Value Date Recorded Sex Assigned at Not on file Legal Sex Female 1:44 PM CDT Gender Identity Not on file Sexual Orientation Not on file documented as of this encounter Miscellaneous Notes * Cerner Conversion Note - Historical ProviderMD - 04/08/2022 6:13 AM CDT ED Event Note Entered On: 04/08/2022 6:13 EDT Performed On: 04/08/2022 6:13 EDT by Yuli Peters, Certified [place] Administrator-Health Unit Coord ED Event Note ED Event Date/Time : 04/08/2022 6:13 EDT ED Description of Event : called code sepsis Yuli Peters, Certified [place] Administrator-Health Unit Coord - 04/08/2022 6:13 EDT Electronically signed by [facility] Conversion Artificial Limb Maker Cerner at 12/21/2022 5:09 PM CDT documented in this encounter Plan of Treatment Not on file documented as of this encounter Visit Diagnoses Not on filedocumented in this encounter
--- OUTSIDE RECORDS SUMMARY | 2025-02-21 13:43 | XMS_ITS | Encounter Summary ---
Author Organization [employer] Address [address] [place] [address] Care Team Providers Care Clinician Oncology Name Role Phone Unavailable Primary Care Provider Unavailabl e Encounter Details Date Type Department Care Team (Late st Contact Info) Description 04/08/2022 Transcribed Document [facility] [place] [address] [place] [address] ProviderFlorentino MD [address], [place] [id number] Social History Tobacco Use Types Packs/Day Years Used Date Smoking Tobacco: Never Assessed Comments Unknown Sex and Gender Information Value Date Recorded Sex Assigned at Not on file Legal Sex Female 1:44 PM CDT Gender Identity Not on file Sexual Orientation Not on file documented as of this encounter Miscellaneous Notes * Cerner Conversion Note - Florentino Lynne MD - 04/08/2022 8:57 PM CDT Patient: ALYSSA AZUL Age: 61 years Sex: Female : 1960 Associated Diagnoses: None Author: GAMA ENCINAS MD-INF ID Consultation/Initial Referring Provider: Yaneli Amaya Evaluating MD: Gama Encinas MD Admit Date 04/08/2022 07:53 Date of consultation: 04/08/22 Reason for consultation: sepsis CC: respiratory failure HPI: 61 yo female with hx of paraplegia, diabetes, HTN and obesity and chronically ill had long hospitalization around 2 months with left hip sacral decub had outside wound debridement and transferred to [facility] with severe sepsis treated with broad-spectrum antibiotics and transition to [facility] with long hospitalization had several reintubation's with concern for aspiration pneumonia completed IV antibiotics transition to oral therapy and stabilized transition to out patient facility have been out of the hospital for about a month and had acute worsening found down with acute renal failure concern for severe sepsis on multiple pressors today with broad-spectrum antibiotic started and infectious disease consultation requested. ROS: Unable to obtain due to critical illness. AllergiesAllergies (1) Active Reaction No Known Allergies None Documented Medications by Classification Antimicrobials meropenem + Sodium Chloride 0.9% intravenous solution 50 mL - 500 mg, IV Piggyback, Inj, [id number], infuse over 3 Hour(s), Routine linezolid (Zyvox) - 600 mg, IV Piggyback, Inj, [id number], infuse over 1 Hour(s), Routine doxycycline + Sodium Chloride 0.9% intravenous solution 100 - 100 mg, IV Piggyback, Inj, [id number], infuse over 2 Hour(s), Routine micafungin - 100 mg, IV Piggyback, Inj, [id number], infuse over 1 Hour(s), STAT Immunology hydrocortisone - 50 mg, IV Push, Inj, Q6H, Routine Anticoagulant heparin - 5,000 Units, SubCutaneous, Inj, Q8H, Routine Cardiovascular phenylephrine 80 mg + Sodium Chloride 0.9% intravenous solut - Bag Volume (mL) = 250, Initial Rate: 50 mcg/Min, IntraVENous, TITRATE, MAP Greater Than or Equal To 65 mmHg Respiratory phenylephrine 80 mg + Sodium Chloride 0.9% intravenous solut - Bag Volume (mL) = 250, Initial Rate: 50 mcg/Min, IntraVENous, TITRATE, MAP Greater Than or Equal To 65 mmHg *Duplicate* GI sodium bicarbonate 150 mEq + Dextrose 5% in Water intravenou - 1,000 mL, Bag Volume (mL) = 1,150, IntraVENous, Rate = 150 mL/Hr famotidine (Pepcid) - 20 mg, IV Push, Inj, Daily, Routine lactulose - 20 Gram, Oral, Liquid, Q8H, Routine magnesium sulfate - 2 Gram 50 mL, IV Piggyback, Inj, Q1H, PRN for Other (See Comment), Routine sodium phosphate - 20 mMole 6.67 mL, IV Piggyback, Inj, Q6H, PRN for Other (See Comment), Routine sodium phosphate + Sodium Chloride 0.9% intravenous solution - 10 mMole 3.33 mL, IV Piggyback, Inj, Q3H, PRN for Other (See Comment), Routine Endocrine glucose (Dextrose 50% injection) - 25 Gram, [...] PRN for Other (See Comment), Routine glucose (Dextrose) - 25 Gram, IV Push, Inj, 1-Time, PRN for Hypoglycemia, Routine glucose (glucose 4 g oral tablet, chewable) - 16 Gram, 4 Tab, Chew, Tab, Q15Min, PRN for Other (See Comment), Routine glucose (glucose 40% oral gel) - 15 Gram 37.5 mL, Oral, Gel, Q15Min, PRN for Other (See Comment), Routine vasopressin 40 Units [0.03 Units/min] + Dextrose 5% in Water - Bag Volume (mL) = 100, Initial Rate: 0.03 Units/min, IntraVENous, Rate = 4.5 mL/Hr, Other - See Comments Other - See Comments Do NOT titrate, use fixed rate 0.03 units/min (4.5 mL/hr) Neuro magnesium sulfate - 2 Gram 50 mL, IV Piggyback, Inj, Q1H, PRN for Other (See Comment), Routine *Duplicate* Pain Meds fentaNYL 2,000 mcg + NaCl 0.9% Premix Diluent 100 mL (fentaN - Bag Volume (mL) = 100, Initial Rate: 50 mcg/Hr, IntraVENous, TITRATE, CPOT Equal to 0 to 2, BIS Equal to 30 - 50 Sedatives propofol 1,000 mg + Premix Diluent 100 mL (propofol injectio - Bag Volume (mL) = 100, Initial Rate: 10 mcg/kg/Min, IntraVENous, TITRATE, RASS Equal to 0 to -2, BIS Equal to 30-50 Vitamins calcium gluconate - 1 Gram 10 mL, IV Piggyback, Inj, Q1H, PRN for Other (See Comment), Routine calcium gluconate - 2 Gram 100 mL, IV Piggyback, Inj, Q1H, PRN for Other (See Comment), Routine magnesium sulfate - 2 Gram 50 mL, IV Piggyback, Inj, Q1H, PRN for Other (See Comment), Routine *Duplicate* potassium chloride - 10 mEq 50 mL, IV Piggyback, Inj, Q30Min, order duration: 2 Time(s), PRN for Other (See Comment), Routine sodium chloride (Normal Saline Flush) - 10 mL, IV Push, Inj, See Comment, PRN for IV Use, Routine sodium chloride (Normal Saline Flush) - 10 mL, IV Push, Inj, Q12H, Routine sodium phosphate + Sodium Chloride 0.9% intravenous solution - 10 mMole 3.33 mL, IV Piggyback, Inj, Q3H, PRN for Other (See Comment), Routine *Duplicate* Undefined Medications fludrocortisone - 0.05 mg, Nasogastric Tube, Tab, Daily, order duration: 7 Day(s), STAT glucagon - 1 mg, IntraMuscular, Inj, Q15Min, PRN for Other (See Comment), Routine insulin regular 100 Units + Sodium Chloride 0.9% intravenous - 100 mL, Bag Volume (mL) = 100, IntraVENous NORepinephrine 16 mg + Sodium Chloride 0.9% intravenous solu - Bag Volume (mL) = 250, Initial Rate: 0.05 mcg/kg/Min, IntraVENous, TITRATE, MAP Greater Than or Equal To 65 mmHg sodium zirconium cyclosilicate (Lokelma) - 10 Gram, Oral, Powder, TID, order duration: 24 Hour(s), STAT Past Medical History:Active Problems (6) Chronic kidney disease (CKD), stage III (moderate) Diabetes History of obstructive sleep apnea Hyperlipidemia Hypertension Paraplegia Past Surgical History:Procedures No Procedures on Record I&D of left gluteal wound at OSH x2 Family History: Unable to confirm Social History:Social & Psychosocial Habits No Data Available Was staying at a facility Physical Examination:Vitals Signs (last 24 hrs) Last Charted Minimum Maximum Temp L 94.1 (APR 08 07:14) L 94.1 (APR 08 07:14) L 95.4 (APR 08 05:58) Mon HR 83 (APR 08 20:55) 42 (APR 08 07:45) 92 (APR 08 17:15) Periph HR 66 (APR 08 05:58) 66 (APR 08 05:58) 66 (APR 08 05:58) Resp Rate H 26 (APR 08 20:55) 14 (APR 08 05:58) H 54 (APR 08 10:15) SBP L 89 (APR 08 11:15) L 56 (APR 08 07:45) 135 (APR 08 08:00) DBP L 54 (APR 08 11:15) L 28 (APR 08 07:30) 63 (APR 08 10:15) MAP 85 (APR 08 20:30) 38 (APR 08 07:30) 106 (APR 08 14:45) SpO2 99 (APR 08 20:55) L 92 (APR 08 07:45) 100 (APR 08 06:43) General: Acutely and chronically ill-appearing sedated on mechanical ventilation HENT: dry oral mucosa, no thrush noted Neck: Supple, non-tender, no cervical lymphadenopathy Lungs: Diminished at bases but no rales appreciated. No cough. On BiPAP Heart: Normal rate, regular rhythm, no murmur appreciated Extremities: With lower extremity edema Musculoskeletal: Generalized weakness decreased range of motion with tremulous Abdomen: obese. Soft, non-tender Skin: Left hip dressed Neurologic: Sedated on mechanical ventilation Labs:Labs (Last four charted values) WBC C 37.5 (APR 08) C 31.3 (APR 08) C 35.4 (APR 08) HB L 9.2 (APR 08) L 10.8 (APR 08) L 8.9 (APR 08) HCT L 28.6 (APR 08) 36.9 (APR 08) L 29.7 (APR 08) Plt 317 (APR 08) 356 (APR 08) 321 (APR 08) Na H 147 (APR 08) H 147 (APR 08) 144 (APR 08) L 133 (APR 08) K 4.2 (APR 08) H 5.8 (APR 08) C 6.5 (APR 08) C 8.7 (APR 08) Cl H 113 (APR 08) H 115 (APR 08) H 119 (APR 08) H 114 (APR 08) CO2 L 11 (APR 08) L 5 (APR 08) L 6 (APR 08) L 3 (APR 08) BUN H 60 (APR 08) C 82 (APR 08) C 83 (APR 08) C 83 (APR 08) Cr H 4.20 (APR 08) H 5.40 (APR 08) H 5.80 (APR 08) H 6.20 (APR 08) Glu R H 192 (APR 08) H 295 (APR 08) H 196 (APR 08) 99 (APR 08) Ca L 7.2 (APR 08) L 7.3 (APR [...] 08) ALB L 2.5 (APR 08) L 2.5 (APR 08) L 3.0 (APR 08) Lipase H 1603 (APR 08) Creatinine Clearance (Current Encounter/Past 24 Hours) Creatinine Level 4.20 mg/dL HI 04/08/2022 20:54 Bun/Creatinine 14.3 04/08/2022 20:54 Estimated Creatinine Clearance 13.17 mL/Min 04/08/2022 20:54 Microbiology: Pending Radiology: Radiology Results (Last 48 hours) [id number] -- 04/08/2022 07:53 CR Chest 1 Vw [...] and dictated by Dr. Jaycob Wynne.Transcribed by Garry Glenn, R.T. (R).I have personally viewed, interpreted and dictated [...] Using Seldinger technique a 15 cm 13 Marshallese triplelumen temporary dialysis catheter was placed with tip positioned in theSVC. Both lumens flushed well and aspirated without resistance. Catheterwas secured to the skin with 2-0 nylon suture. Procedure was welltolerated.IMPRESSION:1. Successful placement right jugular 13 Marshallese triple lumen temporarydialysis catheter.2. Sonographic and fluoroscopic guidance utilized with images acquired. IMPRESSION: - Septic shock with severe sepsis [...] change antibiotics to Zyvox, meropenem and micafungin RECOMMENDATIONS/PLANS: -DC Zosyn and doxycycline -Follow-up cultures we will use Zyvox, meropenem, and micafungin -Poor overall prognosis ICu evaluation spent greater than 35 minutes on case with more than 50% time review of old records ongoing treatment for septic shock with broad-spectrum antibiotics at risk for multidrug-resistant infections documented in this encounter Plan of Treatment Not on file documented as of this encounter Visit Diagnoses Not on filedocumented in this encounter
--- OUTSIDE RECORDS SUMMARY | 2025-02-21 13:43 | XMS_ITS | Encounter Summary ---
Author Organization [employer] Address [address] [place] [address] Care Team Providers Care Cardiac Nurse Name Role Phone Unavailable Primary Care Provider Unavailabl e Encounter Details Date Type Department Care Team (Late st Contact Info) Description 03/09/2022 Transcribed Document [facility] [place] [address] [place] [address] ProviderFlorentino MD [address] [place] [address] Social History Tobacco Use Types Packs/Day Years Used Date Smoking Tobacco: Never Assessed Comments Unknown Sex and Gender Information Value Date Recorded Sex Assigned at Not on file Legal Sex Female 1:44 PM CDT Gender Identity Not on file Sexual Orientation Not on file documented as of this encounter Miscellaneous Notes * Cerner Conversion Note - Florentino ProviderMD - 03/09/2022 5:00 AM CDT Height and Weight, Routine Entered On: 03/12/2022 6:07 EDT Performed On: 03/09/2022 5:00 EDT by Ze Holbrook Patient Buckle Sewer Gopal Height and Weight, Routine Routine Weight Source : Bed scale Routine Weight Entry Format : Roane Routine Weight, Pounds : 179 lb Routine Weight, Ounces : 1 oz Routine Weight Calculation : 81.39 kg Height Source : Chart Height Entry Format : Roane Height, Feet : 5 ft Height, Inches : 4 Inch Clinical Height : 162.56 cm Body Surface Area (BSA), Routine : 1.87 m2 Body Mass Index (BMI), Routine : 30.8 kg/m2 Ze Holbrook Patient Buckle Sewer I - 03/12/2022 6:06 EDT documented in this encounter Plan of Treatment Not on file documented as of this encounter Visit Diagnoses Not on filedocumented in this encounter
--- OUTSIDE RECORDS SUMMARY | 2025-02-21 13:43 | XMS_ITS | Encounter Summary ---
Author Organization [employer] Address [address] [place] [address] Care Team Providers Care Dog Barber Name Role Phone Unavailable Primary Care Provider Unavailabl e Encounter Details Date Type Department Care Team (Late st Contact Info) Description 02/21/2022 Transcribed Document [facility] [place] [address] [place] [address] ProviderFlorentino MD [address] [place] [address] Social History Tobacco Use Types Packs/Day Years Used Date Smoking Tobacco: Never Assessed Comments Unknown Sex and Gender Information Value Date Recorded Sex Assigned at Not on file Legal Sex Female 1:44 PM CDT Gender Identity Not on file Sexual Orientation Not on file documented as of this encounter Miscellaneous Notes * Cerner Conversion Note - Florentino Lynne MD - 02/21/2022 10:05 PM CDT Consult Phone Call Documentation Entered On: 02/22/2022 9:49 EDT Performed On: 02/21/2022 22:05 EDT by Maritza Elena, PRIMO Phone Call for Consults Consult Phone Call/Page Attempt : Other: Notified by scene shifter RN Physician Covering for Consult : JOHN WOODS MD-PUL Maritza Elena, RN - 02/22/2022 9:48 EDT documented in this encounter Plan of Treatment Not on file documented as of this encounter Visit Diagnoses Not on filedocumented in this encounter
--- OUTSIDE RECORDS SUMMARY | 2025-02-21 13:43 | XMS_ITS | Encounter Summary ---
Author Organization [employer] Address [address] [place] [address] Care Team Providers Care Msw Name Role Phone Unavailable Primary Care Provider Unavailabl e Encounter Details Date Type Department Care Team (Late st Contact Info) Description 04/08/2022 Transcribed Document [facility] [place] [address] [place] [address] ProviderFlorentino MD [address] [place] [address] Social History Tobacco Use Types Packs/Day Years Used Date Smoking Tobacco: Never Assessed Comments Unknown Sex and Gender Information Value Date Recorded Sex Assigned at Not on file Legal Sex Female 1:44 PM CDT Gender Identity Not on file Sexual Orientation Not on file documented as of this encounter Miscellaneous Notes * Cerner Conversion Note - Florentino ProviderMD - 04/08/2022 7:07 PM CDT Consult Phone Call Documentation Entered On: 04/09/2022 7:46 EDT Performed On: 04/08/2022 19:07 EDT by Leslee Medrano ENGRAVER SET UP OPERATOR Phone Call for Consults Consult Phone Call/Page Attempt : Other: Consult already occured Consult Reason : Hydronephrosis Physician Requested for Consult : ASHISH GARCIA JR, MD-URO Provider Team Notified Name : Urology Physician Covering for Consult : GUERITA BRADSHAW MD-URO Consult, Additional Information : Consult already occured Leslee Medrano ENGRAVER SET UP OPERATOR - 04/09/2022 7:45 EDT documented in this encounter Plan of Treatment Not on file documented as of this encounter Visit Diagnoses Not on filedocumented in this encounter
--- OUTSIDE RECORDS SUMMARY | 2025-02-21 13:43 | XMS_ITS | Encounter Summary ---
Author Organization [employer] Address [address] [place] [address] Care Team Providers Care Printed Circuit Board Pcb Draftsman Name Role Phone Unavailable Primary Care Provider Unavailabl e Encounter Details Date Type Department Care Team (Late st Contact Info) Description 04/08/2022 Transcribed Document [facility] [place] [address] [place] [address] ProviderFlorentino MD [address] [place] [address] Social History Tobacco Use Types Packs/Day Years Used Date Smoking Tobacco: Never Assessed Comments Unknown Sex and Gender Information Value Date Recorded Sex Assigned at Not on file Legal Sex Female 1:44 PM CDT Gender Identity Not on file Sexual Orientation Not on file documented as of this encounter Miscellaneous Notes * Cerner Conversion Note - Florentino Lynne MD - 04/08/2022 10:07 AM CDT ED Discharge Entered On: 04/08/2022 10:07 EDT Performed On: 04/08/2022 10:07 EDT by Kiki Sheth Rn Discharge Process Patient Disposition : Admit/Observe Teaching Evaluation : Verbalizes understanding Kiki Sheth Rn - 04/08/2022 10:07 EDT documented in this encounter Plan of Treatment Not on file documented as of this encounter Visit Diagnoses Not on filedocumented in this encounter
--- OUTSIDE RECORDS SUMMARY | 2025-02-21 13:43 | XMS_ITS | Encounter Summary ---
Author Organization [employer] Address [address] [place] [address] Care Team Providers Care Housekeeping Room Inspector Name Role Phone Unavailable Primary Care Provider Unavailabl e Encounter Details Date Type Department Care Team (Late st Contact Info) Description 04/08/2022 Transcribed Document [facility] [place] [facility] [place] [address] ProviderFlorentino MD [address] [place] [address] Social History Tobacco Use Types Packs/Day Years Used Date Smoking Tobacco: Never Assessed Comments Unknown Sex and Gender Information Value Date Recorded Sex Assigned at Not on file Legal Sex Female 1:44 PM CDT Gender Identity Not on file Sexual Orientation Not on file documented as of this encounter Miscellaneous Notes * Cerner Conversion Note - Florentino Lynne MD - 04/08/2022 6:33 PM CDT Nutrition Assessment Entered On: 04/09/2022 9:24 EDT Performed On: 04/09/2022 9:24 EDT by Sujatha Villanueva Dietitian Nutrition Assessment Current Nutrition Regimen Comment : 04/09: c/s- PU, EN recs. Pt is a 61 y/o female admitted for increasing confusion and a fall. She required intubation and pressor support on admit. Discussed pt with pulmonary. She remains intubated and is now on CRRT. Pt is only requiring 1 pressor this morning. LAC is trending down but lipase is increasing. Pt has a NGT with plans for corpak placement. May start trophic EN today but pt is receiving D5, Na bicarb + D5, and propofol. Wound care following as pt has a NPWT to L-trochanter. Dx: acute respiratory failure, severe sepsis, MSOF, JAVIER, acute pancreatitis, acute encephalopathy PMH: CKD3, DM, paraplegia, HTN, L-hip wound, previous trach/PEG (2009), cardiac arrest x2 Labs: K 3.3, Glu 109, BUN 29, Cr 2.1, GFR 24, lipase 1925, FSB/156/96, LAC 5.0 Meds: Pepcid, steroid, heparin, lactulose, abx, PRN Ca gluconate Drips: D5 @ 75ml/hr (306 kcals), fentanyl, insulin, levo @ 0.05mcg/kg/min, propofol @ 14.6ml/hr (385 kcals), Na bicarb + D5 @ 200ml/hr (816 kcals) Diet: NPO GI: +BS, +NGT, LBM 04/09 Skin: NPWT to L-trochanter, abrasion to L-knee, laceration to vagina, stg 2 PU to R-buttock, MASD to coccyx Ht: 5'4 (per chart hx- varying hts on admit) Wt: 180#/81.8kg (04/08) BMI: 27.4 IBW: 120#, 150% Est nutrient needs: 2637-7467 kcals (22-25 kcal/kg), 125+g pro (1.5 g/kg) *on CRRT, wounds Sujatha Villanueva Dietitian - 04/09/2022 10:35 EDT Nutrition Assessment Reason : Automatic referral Sujatha Villanueva Dietitian - 04/09/2022 9:24 EDT Nutrition Diagnoses Oral or Nutrition Support Intake : Inadequate oral intake Oral or Nutr Support Intake Related To : resp distress- vent Oral or Nutr Support Intake Evidenced by : NPO status Oral or Nutrition Support Intake Status : Active Nutrient Intake : Increased nutrient needs Nutrient Intake Related to : wound healing increased metabolic demand Nutrient Intake As Evidenced by : NPWT to L-trochanter, abrasion to L-knee, laceration to vagina, stg 2 PU to R-buttock, MASD to coccyx on CRRT Nutrient Intake Status : Active Increased Nutrient Needs Comment : protein Sujatha Vilalnueva Dietitian - 04/09/2022 10:35 EDT Nutrition Interventions Meals and Snacks Other Comment : NPO Sujatha Villanueva Dietitian - 04/09/2022 10:35 EDT Monitoring/Evaluation Weight Status : Weight Maintanence Gastrointestinal Function : Bowel Function Integumentary : Pressure Ulcer Status, Wound Status Sujatha Villanueva Dietitian - 04/09/2022 10:35 EDT Nutrition Recommendations Dietitian Recommendations : 1. Continue NPO status. Once feasible, initiate Nepro @ 10ml/hr and advance to 20ml/hr as tolerated. FW per MD. Please note, current drips providing 1507 total kcals Goal: utilize GI tract 2. Once hemodynamically stable, increase Nepro slowly to goal rate of 45ml/hr + give 3 bottles proteinex daily (1962 kcals, 125g pro). FW per MD. Goal: meet est needs 3. Monitor weight 2x weekly Goal: prevent unintentional wt changes 4. Monitor elytes and replace PRN Goal: elytes WNL High nutrition risk Sujatha Villanueva Dietitian - 04/09/2022 10:35 EDT documented in this encounter Plan of Treatment Not on file documented as of this encounter Visit Diagnoses Not on filedocumented in this encounter
--- OUTSIDE RECORDS SUMMARY | 2025-02-21 13:43 | XMS_ITS | Encounter Summary ---
Author Organization [employer] Address [address] [place] [address] Care Team Providers Care Hand Loom Weaver Name Role Phone Unavailable Primary Care Provider Unavailabl e Encounter Details Date Type Department Care Team (Late st Contact Info) Description 03/01/2022 Transcribed Document [facility] [place] [address] [place] [address] ProviderFlorentino MD [address] [place] [address] Social History Tobacco Use Types Packs/Day Years Used Date Smoking Tobacco: Never Assessed Comments Unknown Sex and Gender Information Value Date Recorded Sex Assigned at Not on file Legal Sex Female 1:44 PM CDT Gender Identity Not on file Sexual Orientation Not on file documented as of this encounter Miscellaneous Notes * Cerner Conversion Note - Historical ProviderMD - 03/01/2022 11:54 AM CDT Attempt to Treat, PT Entered On: 03/01/2022 12:40 EDT Performed On: 03/01/2022 11:54 EDT by KASIE LUONG PHYSICAL THERAPIST NON-EXEMPT Attempt to Treat Inability to Treat Comment : Pt respectfully declined PT citing severe fatigue and dyspnea at rest. RN aware. KASIE LUONG PHYSICAL THERAPIST NON-EXEMPT - 03/01/2022 12:40 EDT documented in this encounter Plan of Treatment Not on file documented as of this encounter Visit Diagnoses Not on filedocumented in this encounter
--- OUTSIDE RECORDS SUMMARY | 2025-02-21 13:43 | XMS_ITS | Encounter Summary ---
Author Organization [employer] Address [address] [place] [id number] Care Team Providers Care Meat Hostess Name Role Phone Unavailable Primary Care Provider Unavailabl e Encounter Details Date Type Department Care Team (Late st Contact Info) Description 04/08/2022 Transcribed Document [facility] [place] [facility] [place] [address] ProviderFlorentino MD [address] [place] [address] Social History Tobacco Use Types Packs/Day Years Used Date Smoking Tobacco: Never Assessed Comments Unknown Sex and Gender Information Value Date Recorded Sex Assigned at Not on file Legal Sex Female 1:44 PM CDT Gender Identity Not on file Sexual Orientation Not on file documented as of this encounter Miscellaneous Notes * Cerner Conversion Note - Florentino Lynne MD - 04/08/2022 9:12 AM CDT Patient: ALYSSA AZUL Age: 61 Years Sex: Female : 1960 Chief Complaint pt. via ems from [facility] for AMS, agonal respirations, hypoxia and fall. on floor for unknown amount of time. pt. son reports decreased PO inatke and declining since yesterday. hx cardiac arrest x2, resp. failure, CKD, paralysis, PNA, sepsis. Reason for Consultation Acute renal failure / hyperkalemia and severe metabolic acidosis. History of Present Illness 61 years old paraplegic woman with past medical history of solitary kidney, diabetes, hypertension, dyslipidemia, obstructive sleep apnea, CKD stage III (baseline creatinine 1.4???1.6 follows at [facility]) who recently had a prolonged complicated hospital course after she sustained a cardiac arrest; she was discharged from [facility] on 03/20 to [facility] for rehab.. She was brought in today because she was found on floor at the rehab.. On arrival in the ED patient was hypothermic, in respiratory distress hypotensive, very acidotic CO2 of 3, potassium 8.7 creatinine 6. She was intubated by ER staff and started on pressors. She got IV fluid boluses in the ER.. Nephrology is consulted for acute renal failure/hyperkalemia/severe metabolic acidosis.. History is obtained from patient [id number]; who reported that for the last 1 week she was very depressed and was not eating; something was not well, however she was not complaining of anything specific. Today they got a call from the rehab that she is altered and is on the floor and they are taking her to ED.. Review of Systems Not able to obtain review of system because of medical condition.. Vital Signs T: 34.5 ??C TMIN: 34.5 ??C TMAX: 35.2 ??C HR: 68(Monitored) RR: 20 BP: 107/46 SpO2: 100% HT: 172.72 cm WT: 81.82 kg BMI: 27.4 Oxygen Settings (Last) Oxygen Therapy Mode: Mechanical ventilation (04/08/22 08:16:00) Oxygen Flow Rate: 3 Liter/Min (04/08/22 07:14:00) Physical Exam General: Intubated and sedated. Neck: Supple, - JVD Resp: Mechanical breath sound, no wheezing CVS: S1, S2, RRR, no rubs or gallop rhythm, no murmur GI: Soft, non tender, BS+ Ext: - edema b/l Neuro: Unable to assess. Skin: - Rash Assessment/Plan 1. Acute renal failure / CAMPOS on CKD stage 3 (solitary kidney - Baseline Cr 1.4 -1.6 mg/dl - Follow with [facility]) 2. Severe hyperkalemia 3. Metabolic acidosis 4. Septic shock. 5. Lactic acidosis 6. Altered mental status 7. Paraplegic 8.History of diabetes, hypertension and dyslipidemia 9. Urinary tract infection /right mild hydro and hydroureter Plan: -Acute renal failure - oliguric; likely ATN from hypotension/shock - S/p Calcium gluconate, regular insulin, D50 IVP and sodium bicarb push; Will start on D5 with 3 amp of sod bicarb @ 125 cc/hr. Repeat potassium now. Please call me with the repeat result. - Discussed with daily if incase hyperkalemia is not getting better she will need a session of dialysis. - Urine output remains negligible after all of the fluid boluses; extensive discussion with the family; will place temporary dialysis catheter and start her on CRRT.. - CT suggestive of right mild hydronephrosis and hydroureter >> we will recommend urology evaluation.. - Sodium on admission 133 >> jumped to 144 after sodium bicarb pushes.. - Septic shock: On broad-spectrum antibiotics. - Keep Valenzuela .. strict I/O. Maintain MAP above 65.. dose meds to GFR. Avoid nephrotoxic medications.. High risk critically ill patient.. Acute UTI Altered mental status Altered mental status ARF (acute renal failure) Fall Hyperkalemia Metabolic acidosis Pancreatitis Sepsis VTE Prophylaxis - Medical No VTE Prophylaxis Orders. Provider Information Primary Care Physician - JACQUELIN LOPEZ PRIM Attending Physician - LUIS ANGEL CUNNINGHAM DO Admitting Physician - LUIS ANGEL CUNNINGHAM DO Consulting Physician - MARGARETH MANRIQUEZ MD (campos with hyperkalemia) Consulting Physician - VINNIE SWEENEY MD Consulting Physician - HIGINIO AREVALO MD-INF - septic shock, UTI Referring Physician - JOSIAH BONILLA MD Problem List/Past Medical History Ongoing Chronic kidney [...] of 8, trach in the past, urostomy. Medications Inpatient NORepinephrine injection 8 mg + NaCl 0.9% for drip 250 mL sodium bicarbonate 150 mEq + Dextrose 5% in Water intravenous solution 1,000 mL Home acetaminophen 325 mg oral tablet, 650 mg= 2 Tab, Oral, Q6H, PRN alendronate weekly, 70 mg, Oral, Weekly Augmentin 500 mg-125 mg oral tablet, Oral, BID bisoprolol 5 mg oral tablet, 5 mg= 1 Tab, Oral, Daily docusate 10 mg/mL oral liquid, 100 mg= 10 mL, Oral, Daily doxycycline hyclate 100 mg oral capsule, 100 mg= 1 Cap, Oral, BID DuoNeb 0.5 mg-2.5 mg/3 mL inhalation solution, 3 mL, Nebulized Inhalation , RT_Q6H, PRN Farxiga 10 mg oral tablet, 10 mg= 1 Tab, Oral, Daily ferrous sulfate 325 mg (65 mg elemental iron) oral tablet, 325 mg= 1 Tab, Oral, BID furosemide 40 mg oral tablet, 40 mg= 1 Tab, Oral, Daily, PRN insulin lispro 100 units/mL injectable solution, 76 kg - 100 kg scale, SubCutaneous, AC and at Bedtime Lovaza 1000 mg oral capsule, 2000 mg= 2 Cap, Oral, BID metFORMIN 500 mg oral tablet, 1000 mg= 2 Tab, Oral, BID Mucinex 600 mg oral tablet, extended release, 600 mg= 1 Tab, Oral, BID Pepcid 20 mg oral tablet, 20 mg= 1 Tab, Oral, At Bedtime pravastatin 40 mg oral tablet, 40 mg= 1 Tab, Oral, At Bedtime senna, Oral, At Bedtime Allergies No Known Allergies Lab Results Test Name Test Result Date/Time pH Art out of range 04/08/2022 07:29 EDT pH Art out of range 04/08/2022 06:21 EDT pCO2 Art 32.8 mmHg (Low) 04/08/2022 07:29 EDT pCO2 Art 24.6 mmHg (Critical) 04/08/2022 06:21 EDT pO2 Art 94.3 mmHg 04/08/2022 07:29 EDT pO2 Art 91.9 mmHg 04/08/2022 06:21 EDT HCO3 Art out of range 04/08/2022 07:29 EDT HCO3 Art out of range 04/08/2022 06:21 EDT BE Art out of range 04/08/2022 07:29 EDT BE Art out of range 04/08/2022 06:21 EDT sO2 Art 94.1 % (Low) 04/08/2022 07:29 EDT sO2 Art 92.2 % (Low) 04/08/2022 06:21 EDT tHb Art 9.3 Gram/dL (Low) 04/08/2022 07:29 EDT tHb Art 10.4 Gram/dL (Low) 04/08/2022 06:21 EDT FHHb 5.8 % 04/08/2022 07:29 EDT FHHb 7.6 % 04/08/2022 06:21 EDT ctO2 12.2 mmol/L 04/08/2022 07:29 EDT ctO2 13.3 mmol/L 04/08/2022 06:21 EDT Delivery Device Type Art Cannula 04/08/2022 07:29 EDT Delivery Device Type Art Room Air 04/08/2022 06:21 EDT Temperature, F Art 98.6 Deg F 04/08/2022 07:29 EDT Temperature, F Art 98.6 Deg F 04/08/2022 06:21 EDT Art Blood Gas (ABG) Site Right Radial 04/08/2022 07:29 EDT Art Blood Gas (ABG) Site Right Radial 04/08/2022 06:21 EDT Acceptable Huang's Test Art Acceptable 04/08/2022 07:29 EDT Acceptable Huang's Test Art Acceptable 04/08/2022 06:21 EDT Ventilator Mode Art N/A 04/08/2022 07:29 EDT Ventilator Mode Art N/A 04/08/2022 06:21 EDT Oxygen Flow Rate Art 3.0 Liter 04/08/2022 07:29 EDT ABG Num of Draw Attempts 1 04/08/2022 07:29 EDT ABG Num of Draw Attempts 1 04/08/2022 06:21 EDT Sodium Level 133 mmol/L (Low) 04/08/2022 06:09 EDT Potassium Level 8.7 mmol/L (Critical) 04/08/2022 06:09 EDT Chloride Level 114 mmol/L (High) 04/08/2022 06:09 EDT Carbon Dioxide Level 3 mmol/L (Low) 04/08/2022 06:09 EDT Anion Gap 25 (High) 04/08/2022 06:09 EDT Glucose Level 99 mg/dL 04/08/2022 06:09 EDT Blood Urea Nitrogen 83 mg/dL (Critical) 04/08/2022 06:09 EDT Creatinine Level 6.20 mg/dL (High) 04/08/2022 06:09 EDT eGFR 8 mL/min/1.73m2 (Low) 04/08/2022 06:09 EDT eGFR NonAfrican 7 mL/min/1.73m2 (Low) 04/08/2022 06:09 EDT Bun/Creatinine 13.4 04/08/2022 06:09 EDT Calcium Level 8.9 mg/dL 04/08/2022 06:09 EDT Protein Total 8.1 Gram/dL 04/08/2022 06:09 EDT Albumin Level 3.0 Gram/dL (Low) 04/08/2022 06:09 EDT Globulin 5.1 Gram/dL (High) 04/08/2022 06:09 EDT A/G Ratio 0.6 (Low) 04/08/2022 06:09 EDT Bilirubin Total 0.6 mg/dL 04/08/2022 06:09 EDT Alk Phos 95 Units/Liter 04/08/2022 06:09 EDT AST 15 Units/Liter 04/08/2022 06:09 EDT ALT 19 Units/Liter 04/08/2022 06:09 EDT Ammonia Level 124.0 uMol/L (High) 04/08/2022 06:38 EDT Device Comment 1 Notified Nurse RBV 04/08/2022 09:07 EDT Glucose POC2 163 mg/dL (High) 04/08/2022 09:07 EDT Glucose POC2 90 mg/dL 04/08/2022 06:06 EDT Lipase Level 1603 Units/Liter (High) 04/08/2022 06:09 EDT Lactic Acid Level 5.3 mmol/L (Critical) 04/08/2022 06:09 EDT Troponin I High Sensitivity 10.3 pg/mL 04/08/2022 06:09 EDT WBC 31.3 K/uL (Critical) 04/08/2022 06:09 EDT RBC 3.77 Million/uL (Low) 04/08/2022 06:09 EDT Hgb 10.8 g/dL (Low) 04/08/2022 06:09 EDT Hct 36.9 % 04/08/2022 06:09 EDT MCV 97.9 fL (High) 04/08/2022 06:09 EDT MCH 28.6 pg 04/08/2022 06:09 EDT MCHC 29.3 Gram/dL (Low) 04/08/2022 06:09 EDT Platelet Count 356 K/uL 04/08/2022 06:09 EDT MPV 10.8 fL 04/08/2022 06:09 EDT RDW 16.5 % (High) 04/08/2022 06:09 EDT Neutrophil Percent Man 56 % 04/08/2022 06:09 EDT Band Percent Man 4 % (Low) 04/08/2022 06:09 EDT ANC # 19 K/uL 04/08/2022 06:09 EDT Lymph Percent Man 19 % (Low) 04/08/2022 06:09 EDT ALYC # 6 K/uL 04/08/2022 06:09 EDT [place] Percent Man 11 % (High) 04/08/2022 06:09 EDT Eos Percent Man 1 % 04/08/2022 06:09 EDT [place] Percent Man 5 % (High) 04/08/2022 06:09 EDT Myelo Percent Man 4 % (High) 04/08/2022 06:09 EDT NRBC 1 (High) 04/08/2022 06:09 EDT RBC Morphology Abnormal 04/08/2022 06:09 EDT Anisocytosis 1+ (Abnormal) 04/08/2022 06:09 EDT Poikilocytosis 1+ (Abnormal) 04/08/2022 06:09 EDT Polychromasia 1+ (Abnormal) 04/08/2022 06:09 EDT Hypochromia 1+ (Abnormal) 04/08/2022 06:[address] Estimate Adequate 04/08/2022 06:09 EDT Urine Type. U Cath 04/08/2022 06:38 EDT Urine Color STRAW2 04/08/2022 06:38 EDT Urine Appearance TURBID2 (Abnormal) 04/08/2022 06:38 EDT Urine Specific Kellogg 1.020 04/08/2022 06:38 EDT Urine pH Dipstick 6.0 04/08/2022 06:38 EDT Urine Leukocyte Esterase LARGE2 (Abnormal) 04/08/2022 06:38 EDT Urine Nitrite NEGATIVE2 04/08/2022 06:38 EDT Urine Protein Dipstick >=300 (Abnormal) 04/08/2022 06:38 EDT Urine Glucose Dipstick NEGATIVE2 04/08/2022 06:38 EDT Urine Ketones Dipstick NEGATIVE2 04/08/2022 06:38 EDT Urine Urobilinogen Dipstick 0.2 04/08/2022 06:38 EDT Urine Bilirubin Dipstick SMALL2 (Abnormal) 04/08/2022 06:38 EDT Urine Blood Dipstick LARGE2 (Abnormal) 04/08/2022 06:38 EDT Ur RBC To Numerous to Count (Abnormal) 04/08/2022 06:38 EDT Ur WBC To Numerous to Count (Abnormal) 04/08/2022 06:38 EDT Ur Bacteria 4+ (Abnormal) 04/08/2022 06:38 EDT Ur Mucous 1+ (Abnormal) 04/08/2022 06:38 EDT Ur Squamous Epithelial Cells 3-5 (Abnormal) 04/08/2022 06:38 EDT Ur Transitional Epi Cells 3-5 (Abnormal) 04/08/2022 06:38 EDT Ur Yeast, Budding 4+ (Abnormal) 04/08/2022 06:38 EDT Urine Culture if Indicated Culture Ordered 04/08/2022 06:38 EDT TSH 2.290 mcInt Units/mL 04/08/2022 06:09 EDT FT4 0.56 ng/dL (Low) 04/08/2022 06:09 EDT UDS pH 6.0 04/08/2022 06:38 EDT UDS Amp NEG3 04/08/2022 06:38 EDT UDS Annabel NEG3 04/08/2022 06:38 EDT UDS Benzo NEG3 04/08/2022 06:38 EDT UDS Charan NEG3 04/08/2022 06:38 EDT UDS Opi NEG3 04/08/2022 06:38 EDT UDS PCP NEG3 04/08/2022 06:38 EDT UDS TCA NEG3 04/08/2022 06:38 EDT UDS THC NEG3 04/08/2022 06:38 EDT Alcohol <3 mg/dL 04/08/2022 06:09 EDT %Alcohol <0.00 04/08/2022 06:09 EDT Influenza A Negative2 04/08/2022 06:38 EDT Influenza B NEGATIVE2 04/08/2022 06:38 EDT SARS-CoV-2 (COVID19 PCR) Negative2 04/08/2022 06:38 EDT RSV PCR NEGATIVE2 04/08/2022 06:38 EDT documented in this encounter Plan of Treatment Not on file documented as of this encounter Visit Diagnoses Not on filedocumented in this encounter
--- OUTSIDE RECORDS SUMMARY | 2025-02-21 13:43 | XMS_ITS | Encounter Summary ---
Author Organization [employer] Address [address] [place] [id number] Care Team Providers Care Electrical Instrumentation Technician Name Role Phone Unavailable Primary Care Provider Unavailabl e Encounter Details Date Type Department Care Team (Late st Contact Info) Description 04/20/2022 Transcribed Document [facility] [place] Family Medicine [address] [place] [address] ProviderFlorentino MD [address] [place] [address] Social History Tobacco Use Types Packs/Day Years Used Date Smoking Tobacco: Never Assessed Comments Unknown Sex and Gender Information Value Date Recorded Sex Assigned at Not on file Legal Sex Female 1:44 PM CDT Gender Identity Not on file Sexual Orientation Not on file documented as of this encounter Miscellaneous Notes * Cerner Conversion Note - Florentino Lynne MD - 04/20/2022 12:34 PM CDT Patient: ALYSSA AZUL Age: 61 years Sex: Female : 1960 Associated Diagnoses: None Author: CHICA RAZA MD-[facility] Subjective Chief complaint. 04/20/22 awake weak no fever Health Status Allergies: [...] History of obstructive sleep apnea / IMO [id number] / Confirmed Diabetes / SNOMED CT [id number] / Confirmed, Active Problems (6) Chronic kidney disease (CKD), stage III (moderate) Diabetes History of obstructive sleep apnea Hyperlipidemia Hypertension Paraplegia Objective VS/Measurements Vitals Signs (last 24 hrs) Last Charted Minimum Maximum Temp 98.7 (APR 20 10:34) 97.6 (APR 19 23:09) 99.5 (APR 19 16:19) Mon HR 88 (APR 20 11:49) 52 (APR 19 21:10) 98 (APR 19 13:10) Resp Rate 18 (APR 20 11:49) 18 (APR 19 21:10) 19 (APR 20 02:00) SBP 138 (APR 20 10:34) 122 (APR 19 21:10) H 147 (APR 19 16:19) DBP H 91 (APR 20 10:34) L 59 (APR 19 21:10) H 91 (APR 20 10:34) MAP 107 (APR 20 10:34) 80 (APR 20 06:00) 121 (APR 19 13:28) SpO2 96 (APR 20 11:49) L 92 (APR 19 16:19) 97 (APR 19 23:39) General: Alert and oriented, No acute distress. Eye: Pupils are equal, round and reactive to light, Normal conjunctiva. HENT: Normocephalic, Normal hearing. Neck: Supple. Respiratory: Respirations are non-labored, Breath sounds are equal. Cardiovascular: Normal rate. Gastrointestinal: Soft, Non-tender. Integumentary: Warm. Neurologic: Alert, Oriented. Psychiatric: Cooperative, Appropriate mood & affect. Results Review APR 20 04:18 141 109 / L 56 4.2 28 H 1.30 \ APR 20 04:18 \ L 8.1 / L 4.1 L 88 / L 25.4 \ APR 20 04:18 141 109 21 / L 56 4.2 28 H 1.30 \ APR 20 04:18 \ L 8.1 / L 4.1 L 88 / L 25.4 \ Impression and Plan #Severe septic shock [...] Bed-bound. 18. Hypertension. Anemia blood transfusion done labs in am Disposition: waiting for placement Expected d/c date - possibly in next 2-3 days i waiting for placement time spent 33 min documented in this encounter Plan of Treatment Not on file documented as of this encounter Visit Diagnoses Not on filedocumented in this encounter
--- OUTSIDE RECORDS SUMMARY | 2025-02-21 13:43 | XMS_ITS | Encounter Summary ---
Author Organization [employer] Address [address] [place] [id number] Care Team Providers Care Insole Coverer Name Role Phone Unavailable Primary Care Provider Unavailabl e Encounter Details Date Type Department Care Team (Late st Contact Info) Description 03/01/2022 Transcribed Document [facility] [place] Family Medicine [address] [place] [address] ProviderFlorentino MD [address] [place] [address] Social History Tobacco Use Types Packs/Day Years Used Date Smoking Tobacco: Never Assessed Comments Unknown Sex and Gender Information Value Date Recorded Sex Assigned at Not on file Legal Sex Female 1:44 PM CDT Gender Identity Not on file Sexual Orientation Not on file documented as of this encounter Miscellaneous Notes * Cerner Conversion Note - Historical ProviderMD - 03/01/2022 6:46 PM CDT Provider Notification Entered On: 03/01/2022 18:57 EDT Performed On: 03/01/2022 18:46 EDT by Colette Dowling RN-PATIENT CARE BEDSIDE NON-EXEMPT Provider Notification Rapid Response Team Call Comment : not called. pt is intubated Colette Dowling RN-PATIENT CARE BEDSIDE NON-EXEMPT - 03/01/2022 18:57 EDT documented in this encounter Plan of Treatment Not on file documented as of this encounter Visit Diagnoses Not on filedocumented in this encounter
--- OUTSIDE RECORDS SUMMARY | 2025-02-21 13:43 | XMS_ITS | Encounter Summary ---
Author Organization [employer] Address [address] [place] [address] Care Team Providers Care Buffet Waiter/Waitress Name Role Phone Unavailable Primary Care Provider Unavailabl e Encounter Details Date Type Department Care Team (Late st Contact Info) Description 05/03/2022 Transcribed Document [facility] [place] Family Medicine [address] [place] [address] ProviderFlorentino MD [address] [place] [address] Social History Tobacco Use Types Packs/Day Years Used Date Smoking Tobacco: Never Assessed Comments Unknown Sex and Gender Information Value Date Recorded Sex Assigned at Not on file Legal Sex Female 1:44 PM CDT Gender Identity Not on file Sexual Orientation Not on file documented as of this encounter Miscellaneous Notes * Cerner Conversion Note - Historical ProviderMD - 05/03/2022 2:00 AM CDT Meal Temperer Details Entered On: 05/03/2022 0:36 EDT Performed On: 05/03/2022 2:00 EDT by Casey Palacios Non Emp [...] No Casey Palacios Non Emp RN - 05/03/2022 0:36 EDT documented in this encounter Plan of Treatment Not on file documented as of this encounter Visit Diagnoses Not on filedocumented in this encounter
--- OUTSIDE RECORDS SUMMARY | 2025-02-21 13:43 | XMS_ITS | Encounter Summary ---
Author Organization [facility] Address [address] [place] [id number] Care Team Providers Care Drive Away Driver Name Role Phone Unavailable Primary Care Provider Unavailabl e Encounter Details Date Type Department Care Team (Late st Contact Info) Description 03/09/2022 Transcribed Document [facility] [place] [address] [place] [address] ProviderFlorentino MD [address] [place] [address] Social History Tobacco Use Types Packs/Day Years Used Date Smoking Tobacco: Never Assessed Comments Unknown Sex and Gender Information Value Date Recorded Sex Assigned at Not on file Legal Sex Female 1:44 PM CDT Gender Identity Not on file Sexual Orientation Not on file documented as of this encounter Miscellaneous Notes * Cerner Conversion Note - Historical ProviderMD - 03/09/2022 2:51 AM CDT Evaluation, Physical Therapy Entered On: 03/09/2022 9:16 EDT Performed On: 03/09/2022 8:43 EDT by SAUL LUCIO, PT General Information, PT Visit Type, PT : Initial evaluation Patient Orders : Order Date Order Ordering 03/09/2022 02:51 Physical Therapy Eval and Treat Ordered By: Elaine Ramires, PHYSICIAN-CLINIC Active Diagnoses : No Qualifying Diagnoses Therapy Diagnosis, PT : Debility, weakness, impaired activity tolerance Onset of Problem, PT : 03/01/2022 EDT Admission Date : 03/01/2022 17:45 Assisted by, PT : office technician/aide Personal Devices : Personal Devices No Devices Recorded Assistive Devices : Assistive Devices No Devices Recorded Isolation Maintained : Other: Standard General Information Comment, PT : Dx: Acute hypoxic respiratory failure; s/p cardiac arrest; sepsis intubated from 03/01/2022-03/08/2022 Hx: paraplegia, CKD III, DM II, HTN SAUL LUCIO, PT - 03/09/2022 8:43 EDT General Status Patient Received Status : Supine in bed Treatment Start Time : 03/09/2022 8:45 EDT Patient Left Status : Supine in bed, Communication board completed, All needs met and within reach RN/PCT Informed Comment : RN OK'd PTx. Treatment End Time : 03/09/2022 9:09 EDT Treatment Time : 24 Minute(s) Actual Treatment Time : 28 Minute(s) (Comment: time included for chart review of pertinent history and for collaboration with nursing [ASUL LUCIO, PT - 03/09/2022 8:43 EDT] ) SAUL LUCIO, PT - 03/09/2022 8:43 EDT History and Environment Living Situation, Therapy : Home Patient Lives With : Alone Persons Providing Information : Patient Home Equipment Therapy, PT : Wheelchair Home Setup : One story Stairs : No Ramp : Yes SAUL LUCIO, PT - 03/09/2022 8:43 EDT Prior Level of Function PT GRID Prior LOF Ambulation, Household : Independent Prior LOF Ambulation, Community : Independent Prior LOF Bed Mobility : Independent Prior LOF Toileting : Independent Prior LOF Transfer : Independent Prior LOF Wheel Chair Mobility : Independent SAUL LUCIO, PT - 03/09/2022 8:43 EDT Prior LOF Assist with ADL Comment : Performs depression transfer with BUE for transfer to w/c. Reports she is non-ambulatory but is independent with w/c History and Environment Comment, PT : Lives alone but notes when she discharges home she will live with son SAUL LUCIO, PT - 03/09/2022 8:43 EDT Intervention Summary Heart Rate/Pulse Pre-intervention : 81 bpm BP Systolic Pre-intervention : 144 mmHg BP Diastolic Pre-intervention : 67 mmHg O2 Pre-Intervention : 5L O2 NC SpO2 Pre-Intervention : 97 % Heart Rate/Pulse Post-intervention : 83 bpm BP Systolic Post-intervention : 141 mmHg BP Diastolic Post-intervention : 75 mmHg O2 Post-Intervention : 5L O2 NC SpO2 Post-Intervention : 97 % Therapist Assessment Post-intervention : supine in bed SAUL LUCIO, PT - 03/09/2022 8:43 EDT Upper Extremity Right UE Active ROM : WFL Left UE Active ROM : WFL Hand Flight Operations Manager Test : Intact but diminished Upper Extremity Comment : grossly 3+ to 4-/5 SAUL LUCIO, PT - 03/09/2022 8:43 EDT Lower Extremity RLE Active ROM : Impaired Right LE Strength : Impaired LLE Active ROM : Impaired Left LE Strength : Impaired Lower Extremity Comment : pt with long history of paraplegia. Reports no muscle activation of BLE SAUL LUCIO, PT - 03/09/2022 8:43 EDT Functional Mobility Mobility Grid Bed Scooting : Rehab Total assistance Supine to Sit : Rehab Total assistance (Comment: x2 [SAUL LUCIO PT - 03/09/2022 8:43 EDT] ) Sit to Supine : Rehab Total assistance (Comment: x2 [SAUL LUCIO, PT - 03/09/2022 8:43 EDT] ) SAUL LUCIO PT - 03/09/2022 8:43 EDT Bed Mobility Scooting Device : Cloth under pad Supine to Sit Device : Cloth under pad Sit to Supine Devices : Cloth under pad SAUL LUCIO, PT - 03/09/2022 8:43 EDT Gait Training/Assessment, PT Weight Bearing Status : Full Gait Assistance Level : Unable to assess/activity not appropriate (Comment: pt is nonambulatory [SAUL LUCIO, PT - 03/09/2022 8:43 EDT] ) SAUL LUCIO, PT - 03/09/2022 8:43 EDT Wheelchair Mobility Wheelchair Mobility : Unable to assess/activity not appropriate (Comment: unable to transfer to w/c at this time due to weakness [SAUL LUCIO, PT - 03/09/2022 8:43 EDT] ) SAUL LUCIO PT - 03/09/2022 8:43 EDT Cognition Assessment, PT Orientation : Oriented x 4 Follows Basic Command Assessment : Pt following commands appropriately SAUL LUCIO PT - 03/09/2022 8:43 EDT Edu Topics Physical Therapy Education Grid Balance Training : Returns demonstration, Needs further teaching Bed Mobility Training : Returns demonstration, Needs further teaching SAUL LUCIO, PT - 03/09/2022 8:43 EDT Indication Assesessment, PT Physical Therapy Indicated : Yes PT Problem List : Impaired, activities daily living, Impaired, bed mobility, Impaired, coordination/proprioception, Impaired, endurance tolerance, Impaired, sitting balance, Impaired, strength, Impaired, transfers, Impaired, wheelchair mobility Potential Barriers To Therapy : Acuity of Illness Rehabilitation Potential : Good SAUL LUCIO, PT - 03/09/2022 8:43 EDT Plan of Care, PT PT Tx Plan/Goals Established w Patient : Yes PT Frequency Rehab : Five days per week PT Duration Rehab : Fourteen days PT Treatments Planned : Balance training, Bed mobility training, Caregiver training, Neuromuscular reeducation, Pain management, Safety education, Stair training, Therapeutic exercises, Transfer training, Wheelchair management training SAUL LUCIO, PT - 03/09/2022 8:43 EDT Short Term Goals Mobility/Bed Mobility STG PT Grid Goal #1 Activity : Supine to sit Assist : Assist, moderate Equipment : Bed, hospital Date to Meet : 03/16/2022 EDT Goal Status : Initial goal SAUL LUCIO, PT - 03/09/2022 8:43 EDT Jail Goals Mobility/Bed Mobility LTG PT Grid Goal #1 Goal #4 Activity : Supine to sit Assist : Assist, moderate Equipment : Bed, hospital Date to Meet : 03/23/2022 EDT Goal Status : Intial Goal Comment : see goals below SAUL LUCIO, PT - 03/09/2022 8:43 EDT SAUL LUCIO, PT - 03/09/2022 8:43 EDT Transfer LTG Grid Goal #1 Destination : Wheelchair, standard Type : Sliding board Cues : No cues Assist : Assist, maximal Equipment : Belt, gait, Other: slide board Date to Meet : 03/23/2022 EDT Goal Status : Intial Goal SAUL LUCIO, PT - 03/09/2022 8:43 EDT BalanceLTG Grid Goal #1 Activity : Sitting, static Cues : No cues Assist : Independent, modified Date to Meet : 03/23/2022 EDT Goal Status : Intial Goal SAUL LUCIO, PT - 03/09/2022 8:43 EDT Treatment Note Subjective Comment : Pt agreed to PTx. Additional Objective Information : Pt requiring total A for supine to sit today. She is paraplegic and has no muscle activation of BLE. Once sitting EOB, pt requiring mod-MaxA to maintain static sitting balance. She was able to sit EOB for ~8 minutes before returning to supine position with totalA. Assessment : Pt demonstrating significant weakness and deconditioning following extubation yesterday. She has a history of paraplegia which is another barrier to her current functional limitations. At this time, she is dependent or would require a significant amount of assistance to perform all mobility and ADLs. She will require further rehabilitation at discharge in order to improve strength and progress with mobility. I recommend IRF. Plan for Treatment : Initiate PTx and POC. SAUL LUCIO PT - 03/09/2022 12:00 EDT Pain Assessment Pain Scaled Used : 0-10 Pain scale Pain Score Pre-Intervention : 0 SAUL LUCIO PT - 03/09/2022 8:43 EDT Image 1 - Images currently included in the form version of this document have not been included in the text rendition version of the form. Anticipated Discharge Needs, OT/PT Recommend Continued Therapy at Discharge : Yes SAUL LUCIO PT - 03/09/2022 12:00 EDT Anticipated Discharge to : Unit, rehabilitation SAUL LUCIO PT - 03/09/2022 8:[address] [facility] Charges PT Ther Activities Ea 15 Min : 1 PT Eval Moderate Complexity : 1 SAUL LUCIO PT - 03/09/2022 8:43 EDT documented in this encounter Plan of Treatment Not on file documented as of this encounter Visit Diagnoses Not on filedocumented in this encounter
--- OUTSIDE RECORDS SUMMARY | 2025-02-21 13:43 | XMS_ITS | Encounter Summary ---
Author Organization [employer] Address [address] [place] [id number] Care Team Providers Care Fruit Culler Name Role Phone Unavailable Primary Care Provider Unavailabl e Encounter Details Date Type Department Care Team (Late st Contact Info) Description 03/01/2022 Transcribed Document [facility] Family Medicine [facility] [place] [address] ProviderFlorentino [place] [address] Social History Tobacco Use Types Packs/Day Years Used Date Smoking Tobacco: Never Assessed Comments Unknown Sex and Gender Information Value Date Recorded Sex Assigned at Not on file Legal Sex Female 1:44 PM CDT Gender Identity Not on file Sexual Orientation Not on file documented as of this encounter Miscellaneous Notes * Cerner Conversion Note - Florentino ProviderMD - 03/01/2022 2:30 PM CDT Patient: ALYSSA MAYORGA Age: 61 years Sex: Female : 1960 Associated Diagnoses: None Author: JAVI LARSON, -EMR Procedure Endotracheal intubation Confirmed: Patient, procedure, and site correct. Consent: Emergent. Indication: Respiratory failure, Airway protection, Cardiac arrest. Airway assessment: Unable 2/2 acuity. Monitoring: Cardiac, blood pressure, continuous pulse oximetry. Preparation: Pre oxygenated. Technique: Oral intubation: A 8.0 ET tube was inserted, using a curved blade (video-assisted), Secured: measures 22 cm at the teeth. Confirmation of tube placement: Bilateral chest rise, Positive color change indicated on end tidal CO2, Chest x-ray. Post procedure exam: Equal breath sounds, No epigastric breath sounds, Clinically improved. Post procedure management: Ventilator settings as documented. Complications: None. Performed by: Self. Electronically signed by [employer] [facility] Conversion Heater Helper Cerner at 12/21/2022 4:59 PM CDT documented in this encounter Plan of Treatment Not on file documented as of this encounter Visit Diagnoses Not on filedocumented in this encounter
--- OUTSIDE RECORDS SUMMARY | 2025-02-21 13:43 | XMS_ITS | Encounter Summary ---
Author Organization [employer] Address [address] [place] [address] Care Team Providers Care Shuttle Car Operator Name Role Phone Unavailable Primary Care Provider Unavailabl e Encounter Details Date Type Department Care Team (Late st Contact Info) Description 03/01/2022 Transcribed Document [facility] [place] [facility] [place] [address] ProviderFlorentino MD [facility] [place] [address] Social History Tobacco Use Types Packs/Day Years Used Date Smoking Tobacco: Never Assessed Comments Unknown Sex and Gender Information Value Date Recorded Sex Assigned at Not on file Legal Sex Female 1:44 PM CDT Gender Identity Not on file Sexual Orientation Not on file documented as of this encounter Miscellaneous Notes * Cerner Conversion Note - Florentino Lynne MD - 03/01/2022 2:36 PM CDT Rapid Response Team Documentation Entered On: 03/01/2022 14:37 EDT Performed On: 03/01/2022 14:36 EDT by DAYDAY KING RN Rapid Response Event Time Rapid Response Team Called : 03/01/2022 13:00 EDT Rapid Response Team Arrival Time : 03/01/2022 13:00 EDT Rapid Response Team Event End Time : 03/01/2022 14:37 EDT Rapid Response Event Intiated By : Hospital Staff Rapid Response Team Initiation Reason : Code blue Rapid Response Event Location Type : Non Critical Care Rapid Response Team Initiation Reason Details : see code blue sheet Rapid Response Admission Diagnosis : Acute kidney failure, unspecified Cardiac arrest, cause unspecified 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 Pneumonia, unspecified organism Severe sepsis with septic shock Rapid Response Medical Background : History of obstructive sleep apnea (Medical) Rapid Response Allergies : Substance Category Reactions Severity No Known Allergies Drug Rapid Response Recent Vital Signs : 03/01/2022 14:30 Systolic Blood Pressure 133 03/01/2022 14:30 Diastolic Blood Pressure 80 03/01/2022 14:30 Heart Rate Monitored 100 03/01/2022 14:30 Respiratory Rate 18 03/01/2022 14:30 Temperature, Fahrenheit 97 03/01/2022 14:30 Oxygen Saturation 99 Rapid Response Recent Lab [...] (02/22/22 00:20:00) DAYDAY KING RN - 03/01/2022 14:36 EDT Electronically signed by Sumaya [facility] Conversion Carpentry Teacher Cerner at 12/21/2022 4:59 PM CDT documented in this encounter Plan of Treatment Not on file documented as of this encounter Visit Diagnoses Not on filedocumented in this encounter
--- OUTSIDE RECORDS SUMMARY | 2025-02-21 13:44 | XMS_ITS | Encounter Summary ---
Author Organization [employer] Address [address] [place] [address] Care Team Providers Care Gluten Settling Tender Name Role Phone Unavailable Primary Care Provider Unavailabl e Encounter Details Date Type Department Care Team (Late st Contact Info) Description 03/09/[address] [facility] [place] Family Medicine [address] [place] [address] ProviderFlorentino MD [address] [place] [address] Social History Tobacco Use Types Packs/Day Years Used Date Smoking Tobacco: Never Assessed Comments Unknown Sex and Gender Information Value Date Recorded Sex Assigned at Not on file Legal Sex Female 1:44 PM CDT Gender Identity Not on file Sexual Orientation Not on file documented as of this encounter Miscellaneous Notes * Cerner Conversion Note - Florentino Lynne MD - 03/09/2022 10:52 AM CDT Patient: ALYSSA AZUL Age: 61 years Sex: Female : 1960 Associated Diagnoses: None Author: VINNIE SWEENEY MD Subjective Seen and examined at bedside, extubated yesterday, denies no complaints. feeling much better. As per nurse no overnight issues.. Health Status Allergies: Allergic Reactions (Selected) No [...] IV Push, Q6H, PRN: Hypertension insulin glargine: 18 Units, SubCutaneous, Daily insulin regular sliding scale: [...] Q8H insulin glargine 1 unit/0.01 mL inj 18 Units 0.18 mL, SubCutaneous, Daily insulin regular 1 unit/0.01 [...] History of obstructive sleep apnea / IMO [id number] / Confirmed, Active Problems (5) Chronic kidney disease (CKD), stage III (moderate) Diabetes History of obstructive sleep apnea Hyperlipidemia Hypertension Objective VS/Measurements Vital Signs/Vital Measures 03/09/2022 10:00 EDT Systolic Blood Pressure 143 [...] 90 % LOW Oxygen Therapy Mode CPAP 03/08/2022 23:30 EDT Systolic BP, Arterial Line 2 166 mmHg HI Diastolic BP, Arterial Line 2 67 mmHg Mean Arterial Pressure, Line 2 97 mmHg Heart Rate Monitored 93 bpm Respiratory Rate 22 Breaths/Min HI Oxygen Saturation 98 % 03/08/2022 23:00 EDT Systolic Blood Pressure 145 mmHg HI Diastolic Blood Pressure 66 mmHg Mean Arterial Pressure (MAP)-BMDI 95 Systolic BP, Arterial Line 2 162 mmHg HI Diastolic BP, Arterial Line 2 62 mmHg Mean Arterial Pressure, Line 2 89 mmHg Heart Rate Monitored 96 bpm Respiratory Rate 23 Breaths/Min HI Oxygen Saturation 97 % Oxygen Therapy Mode CPAP 03/08/2022 22:30 EDT Systolic BP, Arterial Line 2 164 mmHg HI Diastolic BP, Arterial Line 2 66 mmHg Mean Arterial Pressure, Line 2 94 mmHg Heart Rate Monitored 94 bpm Respiratory Rate 24 Breaths/Min HI Oxygen Saturation 97 % 03/08/2022 22:00 EDT Systolic Blood Pressure 135 mmHg Diastolic Blood Pressure 64 mmHg Mean Arterial Pressure (MAP)-BMDI 92 Systolic BP, Arterial Line 2 133 mmHg Diastolic BP, Arterial Line 2 53 mmHg LOW Mean Arterial Pressure, Line 2 73 mmHg Heart Rate Monitored 91 bpm Respiratory Rate 26 Breaths/Min HI Oxygen Saturation 100 % 03/08/2022 21:30 EDT Systolic Blood Pressure 132 mmHg Diastolic Blood Pressure 63 mmHg Mean Arterial Pressure (MAP)-BMDI 90 Systolic BP, Arterial Line 2 118 mmHg Diastolic BP, Arterial Line 2 49 mmHg LOW Mean Arterial Pressure, Line 2 68 mmHg Heart Rate Monitored 95 bpm Respiratory Rate 17 Breaths/Min Oxygen Saturation 93 % LOW Oxygen Therapy Mode CPAP FiO2 35 % 03/08/2022 21:00 EDT Systolic Blood Pressure 132 mmHg Diastolic Blood Pressure 63 mmHg Mean Arterial Pressure (MAP)-BMDI 90 Systolic BP, Arterial Line 2 132 mmHg Diastolic BP, Arterial Line 2 51 mmHg LOW Mean Arterial Pressure, Line 2 72 mmHg Heart Rate Monitored 99 bpm Respiratory Rate 25 Breaths/Min HI Oxygen Saturation 99 % 03/08/2022 20:30 EDT Systolic Blood Pressure 130 mmHg Diastolic Blood Pressure 58 mmHg LOW Mean Arterial Pressure (MAP)-BMDI 84 Systolic BP, Arterial Line 2 139 mmHg Diastolic BP, Arterial Line 2 55 mmHg LOW Mean Arterial Pressure, Line 2 78 mmHg Heart Rate Monitored 102 bpm HI Respiratory Rate 23 Breaths/Min HI Oxygen Saturation 96 % 03/08/2022 20:00 EDT Systolic Blood Pressure 130 mmHg Diastolic Blood Pressure 58 mmHg LOW Mean Arterial Pressure (MAP)-BMDI 84 Systolic BP, Arterial Line 2 127 mmHg Diastolic BP, Arterial Line 2 52 mmHg LOW Mean Arterial Pressure, Line 2 72 mmHg Temperature Source Oral Temperature Mode Fahrenheit Temperature, Fahrenheit 98.9 Deg F Clinical Temperature, C 37.2 Deg C Heart Rate Monitored 103 bpm HI Respiratory Rate 19 Breaths/Min Oxygen Saturation 100 % Oxygen Therapy Mode Nasal cannula Oxygen Flow Rate 5 Liter/Min 03/08/2022 19:30 EDT Systolic Blood Pressure 184 mmHg HI Diastolic Blood Pressure 94 mmHg HI Mean Arterial Pressure (MAP)-BMDI 127 Systolic BP, Arterial Line 2 141 mmHg HI Diastolic BP, Arterial Line 2 55 mmHg LOW Mean Arterial Pressure, Line 2 77 mmHg Heart Rate Monitored 103 bpm HI Respiratory Rate 22 Breaths/Min HI Oxygen Saturation 100 % 03/08/2022 19:25 EDT Heart Rate Monitored 105 bpm HI Respiratory Rate 20 Breaths/Min Oxygen Saturation 99 % Oxygen Therapy Mode Nasal cannula Oxygen Flow Rate 5 Liter/Min 03/08/2022 19:00 EDT Systolic Blood Pressure 184 mmHg HI Diastolic Blood Pressure 94 mmHg HI Mean Arterial Pressure (MAP)-BMDI 127 Systolic BP, Arterial Line 2 202 mmHg HI Diastolic BP, Arterial Line 2 86 mmHg Mean Arterial Pressure, Line 2 123 mmHg 03/08/2022 18:00 EDT Systolic Blood Pressure 138 mmHg Diastolic Blood Pressure 72 mmHg Mean Arterial Pressure (MAP)-BMDI 95 Systolic BP, Arterial Line 2 154 mmHg HI Diastolic BP, Arterial Line 2 56 mmHg LOW Mean Arterial Pressure, Line 2 82 mmHg Heart Rate Monitored 109 bpm HI Respiratory Rate 26 Breaths/Min HI Oxygen Saturation 97 % 03/08/2022 17:00 EDT Systolic Blood Pressure 174 mmHg HI Diastolic Blood Pressure 84 mmHg Mean Arterial Pressure (MAP)-BMDI 119 Systolic BP, Arterial Line 2 162 mmHg HI Diastolic BP, Arterial Line 2 64 mmHg Mean Arterial Pressure, Line 2 92 mmHg Heart Rate Monitored 115 bpm HI Respiratory Rate 26 Breaths/Min HI Oxygen Saturation 97 % 03/08/2022 16:00 EDT Systolic Blood Pressure 189 mmHg HI Diastolic Blood Pressure 72 mmHg Mean Arterial Pressure (MAP)-BMDI 104 Systolic BP, Arterial Line 2 158 mmHg HI Diastolic BP, Arterial Line 2 60 mmHg Mean Arterial Pressure, Line 2 88 mmHg Temperature Source Axillary Temperature Mode Fahrenheit Temperature, Fahrenheit 98.7 Deg F Clinical Temperature, C 37.1 Deg C Heart Rate Monitored 114 bpm HI Respiratory Rate 25 Breaths/Min HI Oxygen Saturation 99 % 03/08/2022 15:46 EDT Heart Rate Monitored 113 bpm HI Respiratory Rate 23 Breaths/Min HI Oxygen Saturation 94 % Oxygen Therapy Mode Nasal cannula Oxygen Flow Rate 5 Liter/Min 03/08/2022 15:22 EDT Heart Rate Monitored 117 bpm HI Heart Rate Monitored 117 bpm HI Respiratory Rate 20 Breaths/Min Respiratory Rate 20 Breaths/Min Oxygen Saturation 94 % Oxygen Saturation 94 % Oxygen Therapy Mode Nasal cannula FiO2 5 % 03/08/2022 15:21 EDT Heart Rate Monitored 118 bpm HI Heart Rate Monitored 118 bpm HI Respiratory Rate 28 Breaths/Min HI Respiratory Rate 28 Breaths/Min HI Oxygen Saturation 95 % Oxygen Saturation 95 % 03/08/2022 15:00 EDT Systolic Blood Pressure 161 mmHg HI Diastolic Blood Pressure 79 mmHg Mean Arterial Pressure (MAP)-BMDI 111 Systolic BP, Arterial Line 2 150 mmHg HI Diastolic BP, Arterial Line 2 58 mmHg LOW Mean Arterial Pressure, Line 2 84 mmHg 03/08/2022 14:00 EDT Systolic Blood Pressure 201 mmHg HI Diastolic Blood Pressure 92 mmHg HI Mean Arterial Pressure (MAP)-BMDI 129 Systolic BP, Arterial Line 2 171 mmHg HI Diastolic BP, Arterial Line 2 71 mmHg Mean Arterial Pressure, Line 2 99 mmHg Heart Rate Monitored 110 bpm HI Respiratory Rate 21 Breaths/Min HI Oxygen Saturation 99 % 03/08/2022 13:00 EDT Systolic Blood Pressure 130 mmHg Diastolic Blood Pressure 77 mmHg Mean Arterial Pressure (MAP)-BMDI 96 Systolic BP, Arterial Line 2 153 mmHg HI Diastolic BP, Arterial Line 2 60 mmHg Mean Arterial Pressure, Line 2 86 mmHg Heart Rate Monitored 108 bpm HI Respiratory Rate 31 Breaths/Min HI Oxygen Saturation 97 % 03/08/2022 12:00 EDT Systolic Blood Pressure 123 [...] F Clinical Temperature, C 36.9 Deg C , Measurements from flowsheet : Measurements 03/09/2022 4:00 EDT Routine Weight Source Bed scale Routine Weight Entry Format Metric Routine Weight, Kilograms 92.7 kg Routine Weight Calculation 92.7 kg , Vitals Signs (last 24 hrs) Last Charted Minimum Maximum Temp 97.7 (MAR 09 08:00) 97.7 (MAR 09 08:00) 99.2 (MAR 09 04:00) Mon HR 74 (MAR 09:00) 72 (MAR 09 07:52) 118 (MAR 08 15:21) Resp Rate H 21 (MAR 09:) 17 (MAR 08 12:00) H 53 (MAR 09 05:30) SBP H 143 (MAR 09:00) 96 (MAR 09 01:00) H 201 (MAR 08 14:00) DBP 72 (MAR 09 10:00) L 52 (MAR 09 01:00) H 103 (MAR 09 06:00) MAP 99 (MAR 09:00) 70 (MAR 09 01:00) 129 (MAR 08 14:00) SpO2 99 (MAR 09:) L 86 (MAR 09 00:30) 100 (MAR 08 19:30) Intake & Output Totals Last 24 Hours (7a-7a) Intake (77 Events) Continuous Infusions (300 mL) Medications (320.36 mL) Enteral Additional Water Given (620 mL) Enteral Feeding Amount (1320 mL) Output (8 Events) Valenzuela Catheter (2325 mL) Input Total: 2560.36 mL Output Total: 2325 mL Balance: 235.36 mL Physical exam contact may be limited [...] Review Labs (Last four charted values) WBC 8.6 [...] 09) H 37 (MAR 08) H 31 (FEB 08) H 33 (MAR 06) Cr H 1.90 [...] 2.5 (MAR 07) L 2.9 (MAR 06) Impression and Plan 1- JAVIER - nonoliguric. [...] vent. Plan: - Renal function improving.. Cr 1.9 mg/dl .. [still not back to baseline].. -Hypernatremia better - will continue free water.. - Keep MAP above 65 mmHg. - Monitor I/O. - Avoid nephrotoxic agents. - Adjust meds per renal function - No emergent need of PRIMARY CARE SALES REPRESENTATIVE. - Monitor H/H and transfuse for Hgb less than 7.0 High risk and complexity patient. Discussed with RN. documented in this encounter Plan of Treatment Not on file documented as of this encounter Visit Diagnoses Not on filedocumented in this encounter
--- OUTSIDE RECORDS SUMMARY | 2025-02-21 13:44 | XMS_ITS | Encounter Summary ---
Author Organization [employer] Address [address] [place] [address] Care Team Providers Care Bait Tier Name Role Phone Unavailable Primary Care Provider Unavailabl e Encounter Details Date Type Department Care Team (Late st Contact Info) Description 04/13/2022 Transcribed Document [facility] [place] [facility] [place] [address] ProviderFlorentino MD [address], [place] [...] Cerner Conversion Note - Florentino ProviderMD - 04/13/2022 3:36 PM CDT Treatment Intervention, OT Entered On: 04/24/2022 15:12 EDT Performed On: 04/24/2022 14:58 EDT by CLAUDIO WILKINS OTR/[place] General Information, OT Visit Type, OT : Treatment Note Patient Orders : Order Date Order Ordering 04/11/2022 08:41 OT Evaluation and Treatment Ordered By: JAMILAH GEORGES MD 04/13/2022 15:36 OT Additional Tx Ordered By: Active Diagnoses : 04/08/2022 12:00 Acidosis 04/08/2022 [...] Place : Fall prevention measures, Seizure precautions CLAUDIO WILKINS OTR/[place] - 04/24/2022 15:07 EDT General Status Patient Received Status : Supine in bed, HOB elevated Treatment Start Time : 04/24/2022 14:41 EDT Patient Left Status : Supine in bed, RN/PCT informed, All needs met and within reach RN/PCT Informed Comment : PRIMO samaniego tx Treatment End Time : 04/24/2022 14:58 EDT Treatment Time : 17 Minute(s) CLAUDIO WILKINS OTR/[place] - 04/24/2022 15:07 EDT Functional Mobility Mobility Grid Supine to Sit : Rehab Minimal assistance Sit to Supine : Rehab Minimal assistance CLAUIDO WILKINS OTR/[place] - 04/24/2022 15:07 EDT Plan of Care, OT OT Tx Plan/Goals Established w Patient : Yes CLAUDIO WILKINS OTR/L - 04/24/2022 15:07 EDT Residential Goals, OT Grooming LTG Grid Goal #1 Activity : Grooming Assist : Independent, modified Date to Meet : 04/27/2022 EDT Goal Status : Progressing, continue Comment : sitting EOB unsupported CLAUDIO WILKINS OTR/[place] - 04/24/2022 15:07 EDT Dressing, Lower Body LTG Grid Goal #1 Activity : Dressing, Lower Body Assist : Independent, modified Date to Meet : 04/27/2022 EDT Goal Status : Initial goal CLAUDIO WILKINS OTR/L - 04/24/2022 15:07 EDT Toilet Transfer LTG Grid Goal #1 Activity : Toilet Transfer, Sliding Board Assist : Independent, modified Equipment : Drop-arm Bedside Commode, Bariatric Bedside Commode Date to Meet : 04/27/2022 EDT Goal Status : Progressing, continue CLAUDIO WILKINS OTR/[place] - 04/24/2022 15:07 EDT Bed Mobility/ Bed Transfer LTG Grid Goal #1 Activity : Bed Mobility, Sit to Supine Assist : Independent, modified Date to Meet : 04/27/2022 EDT Goal Status : Progressing, continue CLAUDIO WILKINS OTR/[place] - 04/24/2022 15:07 EDT Wheelchair Transfer LTG Grid Goal #1 Activity : Wheelchair, Power, Sliding Board Assist : Independent, modified Date to Meet : 04/27/2022 EDT Goal Status : Initial goal CLAUDIO WILKINS OTR/L - 04/24/2022 15:07 EDT Treatment Note Subjective Comment : Pt agreeable to therapy session. Patient's Response to Treatment : Pt tolerated well. Additional Objective Information : Pt stated she had completed sponge bathing this am with setup and her UE exercises twice prior to therapists arrival. Transferred supine to sit EOB with min A. Able to maintain balance sitting EOB with UE support and SBA. Pt completed reaching activities and leaning R and L onto elbows then back to midline to improve postural strength. Pt sat EOB ~10 min. Transferred back to supine with min A. Able to scoot up in bed with SBA. Pt left in bed, call light within reach. Assessment : Patient is very motivated and improving with strength needed for functional mobility. Pt would like to practice getting in/out of w/c prior to d/c home next week. Will communicate with PT to coordinate transfer practice. Plan for Treatment : Continue with POC> CLAUDIO WILKINS OTR/[place] - 04/24/2022 15:07 EDT Pain Assessment Pain Scaled Used : 0-10 Pain scale Pain Score Pre-Intervention : 0 CLAUDIO WILKINS OTR/L - 04/24/2022 15:07 EDT Image 1 - Images currently included in the form version of this document have not been included in the text rendition version of the form. [facility] OT Charges OT Ther Activities Ea 15 Min : 1 CLAUDIO WILKINS OTR/L - 04/24/2022 15:07 EDT documented in this encounter Plan of Treatment Not on file documented as of this encounter Visit Diagnoses Not on filedocumented in this encounter
--- OUTSIDE RECORDS SUMMARY | 2025-02-21 13:44 | XMS_ITS | Encounter Summary ---
Author Organization [employer] Address [address] [place] [address] Care Team Providers Care Ex Assistant/Program Director Name Role Phone Unavailable Primary Care Provider Unavailabl e Encounter Details Date Type Department Care Team (Late st Contact Info) Description 03/09/2022 Transcribed Document [facility] [place] [address] [place] [address] ProviderFlorentino MD [address] [place] [address] Social History Tobacco Use Types Packs/Day Years Used Date Smoking Tobacco: Never Assessed Comments Unknown Sex and Gender Information Value Date Recorded Sex Assigned at Not on file Legal Sex Female 1:44 PM CDT Gender Identity Not on file Sexual Orientation Not on file documented as of this encounter Miscellaneous Notes * Cerner Conversion Note - Florentino Lynne MD - 03/09/2022 8:56 AM CDT WATCH CASER Note Entered On: 03/10/2022 14:46 EDT Performed On: 03/10/2022 14:17 EDT by SHANNAN SINGH SLP Pain Assessment Pain Scaled Used : 0-10 Pain scale Pain Score Pre-Intervention : 0 SHANNAN SINGH SLP - 03/10/2022 14:38 EDT Image 1 - Images currently included in the form version of this document have not been included in the text rendition version of the form. Dysphagia Exercise Technique Dysphagia Therapy/Treatment Type #1 : Swallow, effortful Dysphagia Therapy/Tx # Possible Resp #1 : 20 Dysphagia Therapy/Tx # Correct Resp #1 : 20 Dysphagia Therapy/Tx # % Accuracy #1 : 100 % Dysphagia Therapy/Treatment Type #2 : Ruth maneuver Dysphagia Therapy/Tx # Possible Resp #2 : 20 Dysphagia Therapy/Tx # Correct Resp #2 : 20 Dysphagia Therapy/Tx # % Accuracy #2 : 100 % SHANNAN SINGH SLP - 03/10/2022 14:38 EDT PO Trials Dysphagia Exercise Technique PO Trial #1 Consistency Trialed : Thin Oral Symptoms : None observed Pharyngeal Signs : Cough, Throat clear (Comment: throat clear x2 and cough x1 [SHANNAN SINGH SLP - 03/10/2022 14:38 EDT] ) SHANNAN SINGH SLP - 03/10/2022 14:38 EDT Swallow Plan/Goals Swallow LTG Grid WATCH CASER Residential Goal #1 Swallow LTG : Establish safe oral diet without aspiration Status : Progressing, continue SHANNAN SINGH SLP - 03/10/2022 14:38 EDT Swallow Goals Grid Goal #1 Goal #2 Swallow STG : Improve pharyngeal strength Other: FEES Related To : Aspiration prevention Measurement by repeat instrumental exam Date to Meet : 03/11/2022 EDT 03/11/2022 EDT Status : Progressing, continue Progressing, continue SHANNAN SINGH SLP - 03/10/2022 14:38 EDT SHANNAN SINGH SLP - 03/10/2022 14:38 EDT Subjective/Assessment/Plan WATCH CASER Patient Concern : Patient awake in bed with corpak in place. Voice remains mildly hoarse. She is anxious for PO diet. WATCH CASER Therapy/Treatment Asmt Cmnt : Patient seen for dysphagia tx. Great participation with effortful swallow and Ruth. Minimal overt patterns of pharyngeal dysphagia, though patient is at increased risk for silent aspiration given multiple and lengthy intubations. She appears ready for a FEES. WATCH CASER Plan : FEES tomorrow. Continue NPO with TF/ meds via corpak and ice after oral care, for now. Treatment Plan Recommend Cmnt, WATCH CASER : Pt will need ongoing dysphagia tx at d/c as she is currently NPO with corpak. SHANNAN SINGH SLP - 03/10/2022 14:38 EDT Education Barriers To Learning : None evident Individuals Taught : Patient Readiness to Learn : Cooperative Readiness to Learn : Explanation SHANNAN SINGH SLP - 03/10/2022 14:38 EDT WATCH CASER Education Assessment Grid 1 Aspiration : Verbalizes understanding Dysphagia : Verbalizes understanding Dysphagia, Effects of Impairment : Verbalizes understanding Evaluation Results : Verbalizes understanding Instrumental Evaluation : Verbalizes understanding NPO : Verbalizes understanding Oral Care : Verbalizes understanding SHANNAN SINGH SLP - 03/10/2022 14:38 EDT WATCH CASER Education Assessment Grid 2 Treatment Plan : Verbalizes understanding SHANNAN SINGH SLP - 03/10/2022 14:[address] [facility] Charges Treatment-Swallowing : 1 SHANNAN SINGH SLP - 03/10/2022 14:38 EDT Anticipated Discharge Needs, WATCH CASER Anticipated Discharge to : Home, with home health, Rehab, high intensity Recommend Continued Therapy at Discharge : Yes SHANNAN SINGH SLP - 03/10/2022 14:38 EDT documented in this encounter Plan of Treatment Not on file documented as of this encounter Visit Diagnoses Not on filedocumented in this encounter
--- OUTSIDE RECORDS SUMMARY | 2025-02-21 13:44 | XMS_ITS | Encounter Summary ---
Author Organization [employer] Address [address] [place] [address] Care Team Providers Care Mortgage Underwriter Name Role Phone Unavailable Primary Care Provider Unavailabl e Encounter Details Date Type Department Care Team (Late st Contact Info) Description 03/20/2022 Transcribed Document [facility] [place] [address] [place] [address] ProviderFlorentino MD [address] [place] [address] Social History Tobacco Use Types Packs/Day Years Used Date Smoking Tobacco: Never Assessed Comments Unknown Sex and Gender Information Value Date Recorded Sex Assigned at Not on file Legal Sex Female 1:44 PM CDT Gender Identity Not on file Sexual Orientation Not on file documented as of this encounter Miscellaneous Notes * Cerner Conversion Note - Historical ProviderMD - 03/20/2022 5:00 AM CDT Height and Weight, Routine Entered On: 03/20/2022 6:28 EDT Performed On: 03/20/2022 5:00 EDT by Ze Holbrook Patient Organic Chemistry Professor Gopal Height and Weight, Routine Routine Weight Source : Bed scale Routine Weight Entry Format : [place] Routine Weight, Pounds : 179 lb Routine Weight, Ounces : 1 oz Routine Weight Calculation : 81.39 kg Height Source : Chart Height Entry Format : [place] Height, Feet : 5 ft Height, Inches : 4 Inch Clinical Height : 162.56 cm Body Surface Area (BSA), Routine : 1.87 m2 Body Mass Index (BMI), Routine : 30.8 kg/m2 Ze Holbrook Patient Organic Chemistry Professor I - 03/20/2022 6:28 EDT documented in this encounter Plan of Treatment Not on file documented as of this encounter Visit Diagnoses Not on filedocumented in this encounter
--- OUTSIDE RECORDS SUMMARY | 2025-02-21 13:44 | XMS_ITS | Encounter Summary ---
Author Organization [employer] Address [address] [place] [address] Care Team Providers Care Collections Technician Name Role Phone Unavailable Primary Care Provider Unavailabl e Encounter Details Date Type Department Care Team (Late st Contact Info) Description 04/13/2022 Transcribed Document [facility] [place] [address] [place] [address] ProviderFlorentino MD [address] [place] [address] Social History Tobacco Use Types Packs/Day Years Used Date Smoking Tobacco: Never Assessed Comments Unknown Sex and Gender Information Value Date Recorded Sex Assigned at Not on file Legal Sex Female 1:44 PM CDT Gender Identity Not on file Sexual Orientation Not on file documented as of this encounter Miscellaneous Notes * Cerner Conversion Note - Florentino Lynne MD - 04/13/2022 8:56 AM CDT Patient: ALYSSA AZUL Age: 61 [...] complaints of increasing confusion and fall at shelter facility. Per documentation, the patient is a [...] She was discharged from our facility to shelter facility. On 04/08, pulmonary is being asked [...] no fevers. Tolerating tube feeds. BM yesterday. ICU day: 6 Vent day:3 Central line: 04/08 Review of Systems Constitutional: Weakness, Fatigue. Eye: No visual disturbances. Ear/Nose/Mouth/Throat: Ear pain: Left, fullness . Respiratory: No shortness of breath, No cough, No sputum production, No hemoptysis, No wheezing. Cardiovascular: No chest [...] 0.9% for drip 250 mL: TITRATE, IntraVENous Norvasc: 5 mg, Oral, Daily Pepcid: 20 mg, IV Push, Daily Tylenol: 650 mg, Oral, Q6H, PRN: Temperature Zofran: 4 mg, IV Push, Q6H, PRN: Nausea Zyvox: 600 mg, 300 mL, 300 mL/Hr, IV Piggyback, [id number] calcium gluconate: 1 Gram, 100 mL, 100 [...] PRN: Hypertension insulin glargine: 12 Units, SubCutaneous, BID insulin regular sliding scale: Scale C, SubCutaneous, Q6H lactobacillus acidophilus: 1 Cap, Oral, BID meropenem + Sodium Chloride 0.9% intravenous solution 50 mL: 500 mg, 16.67 mL/Hr, IV Piggyback, [id number] micafungin: 100 mg, 100 mL/Hr, IV Piggyback, [id number] phenylephrine injection 80 mg + NaCl 0.9% for drip 250 mL: TITRATE, IntraVENous potassium phosphate: 15 mMole, 5 mL, 63.75 mL/Hr, IV Piggyback, 1-Time vasopressin injection 40 Units [0.03 Units/min] + [...] Bedtime, 0 Refill(s), Medications (28) Active Scheduled: (12) amLODIPine 5 mg tab 5 mg 1 Tab, Oral, Daily famotidine 20 mg/2 mL inj 20 mg 2 mL, IV Push, Daily ferrous sulfate 300 mg/5 mL liq 325 mg 5.42 mL, Feeding Tube, BID heparin 5,000 units/1 mL inj 5,000 Units 1 mL, SubCutaneous, Q8H insulin glargine 1 unit/0.01 mL inj 12 Units 0.12 mL, SubCutaneous, BID insulin regular 1 unit/0.01 mL inj 3mL Scale C, SubCutaneous, Q6H lactobacillus acidophilus cap 1 Cap, Oral, BID linezolid *PREMIX* 600 mg 300 mL, IV Piggyback, [id number] meropenem + NaCl 0.9% 50 mL 500 mg, IV Piggyback, [id number] micafungin sodium 100 mg, IV Piggyback, [id number] miconazole nitrate 2% pwd 85 g 1 Application, Topical, BID potassium phosphate 15 mMole 5 mL, IV Piggyback, 1-Time Continuous: (3) NORepinephrine 16 mg + NaCl [...] IV Push, Q6H Problem list: All Problems Chronic kidney disease (CKD), stage III (moderate) / SNOMED CT 0625643642 / Confirmed Diabetes / SNOMED CT 279907346 / Confirmed History of obstructive sleep apnea / IMO [id number] / Confirmed Hyperlipidemia / SNOMED CT 69255582 / Confirmed Hypertension / SNOMED CT 1830348682 / Confirmed Paraplegia / SNOMED CT 016917490 / Confirmed Canceled: Diabetes / SNOMED CT 491816508 Canceled: Type 1 diabetes with stage 3 chronic kidney disease moderate GFR 30-59 / SNOMED CT 867616750, Active Problems (6) Chronic kidney disease (CKD), stage III (moderate) Diabetes History of obstructive sleep apnea Hyperlipidemia Hypertension Paraplegia Physical Examination VS/Measurements Vitals Signs (last 24 hrs) Last Charted Minimum Maximum Temp 98.3 (APR 13 04:00) 97.8 (APR 12 20:00) 98.8 (APR 12 12:00) Mon HR 64 (APR 13 07:38) 53 (APR 12 11:06) 73 (APR 12 22:00) Resp Rate 18 (APR 13 07:38) 14 (APR 13 00:00) H 56 (APR 12 12:00) SBP H 148 (APR 13 06:00) 103 (APR 13 01:00) H 161 (APR 12 12:00) DBP 65 (APR 13 06:00) L 52 (APR 13 01:00) H 94 (APR 12 22:00) MAP 93 (APR 13 06:00) 74 (APR 13 01:00) 117 (APR 12 22:00) SpO2 94 (APR 13 07:38) L 91 (APR 12:00) 100 (APR 12 11:00) General: On Room air, 97% follows commands, [...] review: Labs (Last four charted values) WBC 8.4 (APR 13) 7.3 (APR 12) 8.2 (APR 11) 10.0 (APR 11) HB L 7.4 (APR 13) L 7.1 (APR 12) L 7.0 (APR 11) L 6.4 (APR 11) HCT L 22.4 (APR 13) L 21.8 (APR 12) L 21.4 (APR 11) L 19.7 (APR 11) Plt L 106 (MAR 14) L 113 (APR 12) L 111 (APR 11) L 131 (APR 11) Na 137 (MAR 14) 136 (APR 12) 136 (APR 12) L 135 (APR 11) K L 3.1 (MAR 14) 3.9 (APR 12) 3.8 (APR 12) 3.9 (APR 11) Cl 107 (MAR 14) 106 (APR 12) 107 (APR 12) 105 (APR 11) CO2 26 (MAR 14) 23 (APR 12) 23 (APR 12) 22 (APR 11) BUN H 26 (MAR 14) 15 (APR 12) 13 (APR 12) 7 (APR 11) Cr H 1.70 (APR 13) H 1.30 (APR 12) H 1.10 (APR 12) 0.60 (APR 11) Glu R H 222 (APR 13) H 245 (APR 12) H 186 (APR 12) H 148 (APR 11) Ca L 8.2 (APR 13) L 8.2 (APR 12) L 7.8 (APR 12) L 7.8 (APR 11) Lactic 1.7 (APR 13) 0.7 (APR 12) 0.6 (APR 10) 1.3 (APR 10) PT 11.1 (APR 09) 10.5 (APR 08) INR 1.0 (APR 09) 1.0 (APR 08) AST 15 (APR 13) 20 (APR 12) 26 (APR 11) 25 (APR 10) ALT 16 (APR 13) 18 (APR 12) 18 (APR 11) 17 (APR 10) ALK P 64 (APR 13) 66 (APR 12) 71 (APR 11) 81 (APR 10) T Bili 0.3 (APR 13) 0.4 (APR 12) 0.6 (APR 11) 0.5 (APR 10) PTN L 5.3 (MAR 14) L 5.6 (APR 12) L 5.9 (APR 11) L 6.0 (APR 10) ALB L 2.1 (APR 13) L 2.3 (APR 12) L 2.2 (APR 12) L 2.3 (APR 11) Lipase H 919 (APR 11) H 638 (APR 10) H 1965 (APR 09) H 1603 (APR 08) . APR 08 13:20 H 147 H 115 C 82 / H 295 H 5.8 L 5 H 5.40 \ APR 13 02:40 \ L 7.4 / 8.4 L 106 / L 22.4 \ Blood Gases (Current Encounter/Past 24 Hours) No Blood Gas Results Found (Past 24 Hours) Radiology Results (Last 48 hours) [id number] -- 04/08/2022 07:53 CR Chest 1 Vw Portable (04/12/2022 04:06) Result: PORTABLE CHEST HISTORY: Shortness of breath.COMPARISON: PCXR from the previous day.FINDINGS: The heart is stable in size. There is a metallic fragment inthe left lung apex. Left basilar atelectasis and/or infiltrate and smallleft effusion are stable. There is pulmonary congestion. There is nopneumothorax. The support devices are in good position.IMPRESSION: Stable left basilar atelectasis and/or infiltrate with smallleft effusion. Images reviewed, interpreted, and dictated by Dr. Maria Esther Espinoza.Transcribed by Yunier Perez PA-C.I have personally viewed, interpreted and dictated the examination. Ihave read and agree with the above final transcribed report. ECHO done on 03/09/22: Impression: Normal sized [...] Leukocytosis Anemia Metformin toxicity. Acute metabolic encephalopathy-improving. Musculoskeletal Paraplegic Unable to move legs and right upper extremities Plan Extubated on 04/10, Currently on Room Air, 97% NIPPV at HS Hemodynamics: On levo only for MAP > 65. ---weaned off, antihypertensives added Norvasc 5mg daily added yesterday, Bisoprolol (home med) not used due to Bradycardia; HR 60 at present Antibiotics per ID: Merrem, Zyvox, and Micafungin Fludro/Hydrocortisone X 7 days--stopped yesterday 04/11 Pneumonia PCR negative Sputum culture pending-unable to collect MRSA negative, ? stop Zyvox Blood cultures--NGTD Urine culture +GNR Wound culture +GNR Nephrology following On CRRT --stopped on 04/11; Will assess daily HD needs; xray today very stable Nutrition: Currently NPO, F @40mL/hr via NG, post-pyloric and advance as tolerated Speech evaluation--plans for FEES on Thursday Replace electrolytes as needed--Replace potassium and phosphorus Monitor hemoglobin. Transfuse for hemoglobin <7.0. --S/P 1 unit PRBC on 04/11--- Guiac stool with next BM Lactobacillus Glycemic control: on insulin gtt. Glucose 140-180 mg/dL, off insulin gtt. Lantus 12units BID---increase to 20BID and SSI Prophylaxis: Pepcid, Heparin SQ PT/OT to see I have personally evaluated the patient; history [...] and her family at bedside Complex case Electronically signed by Sumaya, [facility] Conversion Guard Entrance Registrar Cerner at 12/21/2022 5:04 PM CDT documented in this encounter Plan of Treatment Not on file documented as of this encounter Visit Diagnoses Not on filedocumented in this encounter
--- OUTSIDE RECORDS SUMMARY | 2025-02-21 13:44 | XMS_ITS | Encounter Summary ---
Author Organization [employer] Address [address] [place] [address] Care Team Providers Care Finisher Polisher Name Role Phone Unavailable Primary Care Provider Unavailabl e Encounter Details Date Type Department Care Team (Late st Contact Info) Description 04/26/2022 Transcribed Document [facility] [place] Medicine [address] [place] [address] ProviderFlorentino MD [address] [place] [address] Social History Tobacco Use Types Packs/Day Years Used Date Smoking Tobacco: Never Assessed Comments Unknown Sex and Gender Information Value Date Recorded Sex Assigned at Not on file Legal Sex Female 1:44 PM CDT Gender Identity Not on file Sexual Orientation Not on file documented as of this encounter Miscellaneous Notes * Cerner Conversion Note - Florentino ProviderMD - 04/26/2022 1:18 PM CDT Nursing Discharge Summary Entered On: 04/26/2022 13:21 EDT Performed On: 04/26/2022 13:18 EDT by Vidal Ibrahim RN Discharge Documentation Discharge Date/Time : 04/26/2022 15:00 EDT Patient Disposition, General : Discharge Discharge To : Home with ambulatory/outpatient follow-up Mode Of Departure, General Discharge : Private vehicle, Wheelchair Accompanied By, Discharge : Son Personal Belongings With Patient : Yes Discharge Instructions Reviewed With, Opportunity For Questions Given : Patient, Son Teaching Method : Demonstration, Explanation, Printed materials Teaching Evaluation : Verbalizes understanding Education Comment : POC, meds, safety, pain mgmt Vidal Ibrahim RN - 04/26/2022 13:18 EDT documented in this encounter Plan of Treatment Not on file documented as of this encounter Visit Diagnoses Not on filedocumented in this encounter
--- OUTSIDE RECORDS SUMMARY | 2025-02-21 13:44 | XMS_ITS | Encounter Summary ---
Author Organization [employer] Address [address] [place] [address] Care Team Providers Care Pcb Design Engineer Name Role Phone Unavailable Primary Care Provider Unavailabl e Encounter Details Date Type Department Care Team (Late st Contact Info) Description 04/08/2022 Transcribed Document [facility] [place] [address] [place] [address] ProviderFlorentino MD [address] [place] [address] Social History Tobacco Use Types Packs/Day Years Used Date Smoking Tobacco: Never Assessed Comments Unknown Sex and Gender Information Value Date Recorded Sex Assigned at Not on file Legal Sex Female 1:44 PM CDT Gender Identity Not on file Sexual Orientation Not on file documented as of this encounter Miscellaneous Notes * Cerner Conversion Note - Florentino ProviderMD - 04/08/2022 10:05 AM CDT ED Event Note Entered On: 04/08/2022 10:05 EDT Performed On: 04/08/2022 10:05 EDT by Kiki Sheth Rn ED Event Note ED Event Date/Time : 04/08/2022 10:05 EDT ED Event Location : Assigned room ED Event Details : Nursing assessment additional narrative ED Description of Event : Report called to CCU, took patient to CT and then to Unit. no concerns or questions from CCU staff. Kiki Sheth Rn - 04/08/2022 10:05 EDT Electronically signed by Bruce Shell Conversion Shipboard Intelligence Analyst Cerjami at 12/21/2022 5:06 PM CDT documented in this encounter Plan of Treatment Not on file documented as of this encounter Visit Diagnoses Not on filedocumented in this encounter
--- OUTSIDE RECORDS SUMMARY | 2025-02-21 13:44 | XMS_ITS | Encounter Summary ---
Author Organization [employer] Address [address] [place] [address] Care Team Providers Care Post Anesthesia Care Unit Nurse Name Role Phone Unavailable Primary Care Provider Unavailabl e Encounter Details Date Type Department Care Team (Late st Contact Info) Description 04/26/2022 Transcribed Document [facility] [place] [address] [place] [address] ProviderFlorentino MD [address] [place] [address] Social History Tobacco Use Types Packs/Day Years Used Date Smoking Tobacco: Never Assessed Comments Unknown Sex and Gender Information Value Date Recorded Sex Assigned at Not on file Legal Sex Female 1:44 PM CDT Gender Identity Not on file Sexual Orientation Not on file documented as of this encounter Miscellaneous Notes * Cerner Conversion Note - Historical ProviderMD - 04/26/2022 2:00 AM CDT Jinrikisha Driver Details Entered On: 04/26/2022 4:10 EDT Performed On: 04/26/2022 2:00 EDT by Jason Aguirre RN-PATIENT CARE BEDSIDE NON-EXEMPT Order Details Transport Mode Order Detail : Bed (including specialty) Isolation Precautions Order Detail : Standard Precautions Order Detail : 0 Lift/Transfer : Maximal assist Central Line Order Detail : Yes Room Service : Appropriate Arterial Line : No Patient Needs Meds Crushed/Liquid : No Jason Aguirre RN-PATIENT CARE BEDSIDE NON-EXEMPT - 04/26/2022 4:10 EDT documented in this encounter Plan of Treatment Not on file documented as of this encounter Visit Diagnoses Not on filedocumented in this encounter
--- OUTSIDE RECORDS SUMMARY | 2025-02-21 13:44 | XMS_ITS | Encounter Summary ---
Author Organization [employer] Address [address] [place] [id number] Care Team Providers Care Facility Practice Specialist Name Role Phone Unavailable Primary Care Provider Unavailabl e Encounter Details Date Type Department Care Team (Late st Contact Info) Description 04/08/2022 Transcribed Document [facility] [place] [facility] [address] [place] [address] ProviderFlorentino MD [address] [place], [place] [id number] Social History Tobacco Use Types Packs/Day Years Used Date Smoking Tobacco: Never Assessed Comments Unknown Sex and Gender Information Value Date Recorded Sex Assigned at Not on file Legal Sex Female 1:44 PM CDT Gender Identity Not on file Sexual Orientation Not on file documented as of this encounter Miscellaneous Notes * Cerner Conversion Note - Florentino ProviderMD - 04/08/2022 6:37 AM CDT Spiritual Care Short Form Entered On: 04/08/2022 9:59 EDT Performed On: 04/08/2022 6:37 EDT by BERENICE MURPHY General Information, Spiritual Care Spiritual Care Referred by : Nurse Reason for Visit : Referral/Consult Ministry Provided to : Family/Significant other Intervention/Comment/Summary Points : Provided supportive presence and active listening to son, FREDO, in ER. BERENICE MURPHY - 04/08/2022 9:59 EDT documented in this encounter Plan of Treatment Not on file documented as of this encounter Visit Diagnoses Not on filedocumented in this encounter
--- OUTSIDE RECORDS SUMMARY | 2025-02-21 13:44 | XMS_ITS | Encounter Summary ---
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 Name Role Phone Unavailable Primary Care Provider Unavailabl e Encounter Details Date Type Department Care Team (Late st Contact Info) Description 03/20/2022 Transcribed Document [facility] [address] [place] [address] ProviderFlorentino MD [address] [place] [address] Social History Tobacco Use Types Packs/Day Years Used Date Smoking Tobacco: Never Assessed Comments Unknown Sex and Gender Information Value Date Recorded Sex Assigned at Not on file Legal Sex Female 1:44 PM CDT Gender Identity Not on file Sexual Orientation Not on file documented as of this encounter Miscellaneous Notes * Cerner Conversion Note - Florentino Lynne MD - 03/20/2022 2:31 PM CDT Patient Education Materials Follows: Acute Kidney Injury, Adult Acute kidney injury is a sudden worsening of kidney function. The kidneys are organs that have several jobs. They filter the blood to remove waste products and extra fluid. They also maintain a healthy balance of minerals and hormones in the body, which helps control blood pressure and keep bones strong. With this condition, your kidneys do not do their jobs as well as they should. This condition ranges from mild to severe. Over time, it may develop into long-lasting (chronic) kidney disease. Early detection and treatment may prevent acute kidney injury from developing into a chronic condition. What are the causes? Common causes of this condition include: ??? A problem with blood flow to the kidneys. This may be caused by: ? Low blood pressure (hypotension) or shock. ? Blood loss. ? Heart and blood vessel (cardiovascular) disease. ? Severe trujillo. ? Liver disease. ??? Direct damage to the kidneys. This may be caused by: ? Certain medicines. ? A kidney infection. ? Poisoning. ? Being around or in contact with toxic substances. ? A surgical wound. ? A hard, direct hit to the kidney area. ??? A sudden blockage of urine flow. This may be caused by: ? Cancer. ? Kidney stones. ? An enlarged prostate in males. What increases the risk? You are more likely to develop this condition if you: ??? Are older than age 65. ??? Are female. ??? Are hospitalized, especially if you are in critical condition. ??? Have certain conditions, such as: ? Chronic kidney disease. ? Diabetes. ? Coronary artery disease and heart failure. ? Pulmonary disease. ? Chronic liver disease. What are the signs or symptoms? Symptoms of this condition may not be obvious until the condition becomes severe. Symptoms of this condition can include: ??? Tiredness (lethargy) or difficulty staying awake. ??? Nausea or vomiting. ??? Swelling (edema) of the face, legs, ankles, or feet. ??? Problems with urination, such as: ? Pain in the abdomen, or pain along the side of your stomach (flank). ? Producing little or no urine. ? Passing urine with a weak flow. ??? Muscle twitches and cramps, especially in the legs. ??? Confusion or trouble concentrating. ??? Loss of appetite. ??? Fever. How is this diagnosed? Your health care provider can diagnose this condition based on your symptoms, medical history, and a physical exam. You may also have other tests, such as: ??? Blood tests. ??? Urine tests. ??? Imaging tests. ??? A test in which a sample of tissue is removed from the kidneys to be examined under a microscope (kidney biopsy). How is this treated? Treatment for this condition depends on the cause and how severe the condition is. In mild cases, treatment may not be needed. The kidneys may heal on their own. In more severe cases, treatment will involve: ??? Treating the cause of the kidney injury. This may involve changing any medicines you are taking or adjusting your dosage. ??? Fluids. You may need specialized IV fluids to balance your body's needs. ??? Having a catheter placed to drain urine and prevent blockages. ??? Preventing problems from occurring. This may mean avoiding certain medicines or procedures that can cause further injury to the kidneys. In some cases, treatment may also require: ??? A procedure to remove toxic wastes from the body (dialysis or continuous renal replacement therapy, CRRT). ??? Surgery. This may be done to repair a torn kidney or to remove the blockage from the urinary system. Follow these instructions at home: Medicines ??? Take ornz-ajq-ehcufcq and prescription medicines only as told by your health care provider. ??? Do not take any new medicines without your health care provider's approval. Many medicines can worsen your kidney damage. ??? Do not take any vitamin and mineral supplements without your health care provider's approval. Many nutritional supplements can worsen your kidney damage. Lifestyle ??? If your health care provider prescribed changes to your diet, follow them. You may need to decrease the amount of protein you eat. ??? Achieve and maintain a healthy weight. If you need help with this, ask your health care provider. ??? Start or continue an exercise plan. Try to exercise at least 30 minutes a day, 5 days a week. ??? Do not use any products that contain nicotine or tobacco, such as cigarettes, e-cigarettes, and chewing tobacco. If you need help quitting, ask your health care provider. General instructions ??? Keep track of your blood pressure. Report changes in your blood pressure as told by your health care provider. ??? Stay up to date with your vaccines. Ask your health care provider which vaccines you need. ??? Keep all follow-up visits as told by your health care provider. This is important. Where to find more information ??? [place] [employer]: www.aakp.org ??? National Kidney Foundation: www.kidney.org ??? [place]: www.akfinc.org ??? [employer] [facility] Program: ? www.lifeoptions.org ? www.kidneyschool.org Contact a health care provider if: ??? Your symptoms get worse. ??? You develop new symptoms. Get help right away if: ??? You develop symptoms of worsening kidney disease, which include: ? Headaches. ? Abnormally dark or light skin. ? Easy bruising. ? Frequent hiccups. ? Chest pain. ? Shortness of breath. ? End of menstruation in women. ? Seizures. ? Confusion or altered mental status. ? Abdominal or back pain. ? Itchiness. ??? You have a fever. ??? Your body is producing less urine. ??? You have pain or bleeding when you urinate. Summary ??? Acute kidney injury is a sudden worsening of kidney function. ??? Acute kidney injury can be caused by problems with blood flow to the kidneys, direct damage to the kidneys, and sudden blockage of urine flow. ??? Symptoms of this condition may not be obvious until it becomes severe. Symptoms may include edema, lethargy, confusion, nausea or vomiting, and problems passing urine. ??? This condition can be diagnosed with blood tests, urine tests, and imaging tests. Sometimes a kidney biopsy is done to diagnose this condition. ??? Treatment for this condition often involves treating the underlying cause. It is treated with fluids, medicines, diet changes, dialysis, or surgery. This information is not intended to replace advice given to you by your health care provider. Make sure you discuss any questions you have with your health care provider. Document Revised: 06/26/2020 Document Reviewed: 06/26/2020 [employer] Patient Education ? 2020 [employer] Caregiving Negative Pressure Wound Therapy Home Guide Negative pressure wound therapy (NPWT) uses a sponge or foam-like material (dressing) placed on or inside the wound. The wound is then covered and sealed with a cover dressing that sticks to your skin (is adhesive). This keeps air out. A tube is attached to the cover dressing, and this tube connects to a small pump. The pump sucks fluid and germs from the wound. NPWT helps to increase blood flow to the wound and heal it from the inside. What are the risks? NPWT is usually safe to use. However, problems can occur, including: ??? Skin irritation from the dressing adhesive. ??? Bleeding. ??? Infection. ??? Dehydration. Wounds with large amounts of drainage can cause excessive fluid loss. ??? Pain. Supplies needed: ??? A disposable garbage bag. ??? Soap and water, or hand fire engine pump operator. ??? Wound cleanser or salt-water solution (saline). ??? New sponge and cover dressing. ??? Protective clothing. ??? Gauze pad. ??? Vinyl gloves. ??? Tape. ??? Skin protectant. This may be a wipe, film, or spray. ??? Clean or germ-free (sterile) scissors. ??? Eye protection. How to change your dressing Prepare to change your dressing 1. If told by your health care provider, take pain medicine 30 minutes before changing the dressing. 2. Wash your hands with soap and water. Dry your hands with a clean towel. If soap and water are not available, use hand fire engine pump operator. 3. Set up a clean station for wound care. 4. Open the dressing package so that the sponge dressing remains on the inside of the package. 5. Wear gloves, protective clothing, and eye protection. Remove old dressing 1. Turn off the pump and disconnect the tubing from the dressing. 2. Carefully remove the adhesive cover dressing in the direction of your hair growth. 3. Remove the sponge dressing that is inside the wound. If the sponge sticks, use a wound cleanser or saline solution to wet the sponge and help it come off more easily. 4. Throw the old sponge and cover dressing supplies into the garbage bag. 5. Remove your gloves by grabbing the cuff and turning the glove inside out. Place the gloves in the trash immediately. 6. Wash your hands with soap and water. Dry your hands with a clean towel. If soap and water are not available, use hand fire engine pump operator. Clean your wound ??? Wear gloves, protective clothing, and eye protection. Follow your health care provider's instructions on how to clean your wound. You may be told to: 1. Clean the wound using a saline solution or a wound cleanser and a clean gauze pad. 2. Pat the wound dry with a gauze pad. Do not rub the wound. 3. Throw the gauze pad into the garbage bag. 4. Remove your gloves by grabbing the cuff and turning the glove inside out. Place the gloves in the trash immediately. 5. Wash your hands with soap and water. Dry your hands with a clean towel. If soap and water are not available, use hand fire engine pump operator. Apply new dressing ??? Wear gloves, protective clothing, and eye protection. 1. If told by your health care provider, apply a skin protectant to any skin that will be exposed to adhesive. Let the skin protectant dry. 2. Cut a piece of new sponge dressing and put it on or in the wound. 3. Using clean scissors, cut a nickel-sized hole in the new cover dressing. 4. Apply the cover dressing. 5. Attach the suction tube over the hole in the cover dressing. 6. Take off your gloves. Put them in the plastic bag with the old dressing. Tie the bag shut and throw it away. 7. Wash your hands with soap and water. Dry your hands with a clean towel. If soap and water are not available, use hand fire engine pump operator. 8. Turn the pump back on. The sponge dressing should collapse. Do not change the settings on the machine without talking to a health care provider. 9. Replace the container in the pump that collects fluid if it is full. Replace the container per the log inspector's instructions or at least once a week, even if it is not full. General tips and recommendations If the alarm sounds: ??? Stay calm. ??? Do not turn off the pump or do anything with the dressing. ??? Reasons the alarm may go off: ? The battery is low. Change the battery or plug the device into electrical power. ? The dressing has a leak. Find the leak and put tape over the leak. ? The fluid collection container is full. Change the fluid container. ??? Call your health care provider right away if you cannot fix the problem. ??? Explain to your health care provider what is happening. Follow his or her instructions. General instructions ??? Do not turn off the pump unless told to do so by your health care provider. ??? Do not turn off the pump for more than 2 hours. If the pump is off for more than 2 hours, the dressing will need to be changed. ??? If your health care provider says it is okay to shower: ? Do not take the pump into the shower. ? Make sure the wound dressing is protected and sealed. The wound dressing must stay dry. ??? Check frequently that the machine indicates that therapy is on and that all clamps are open. ??? Do not use aikg-pix-wlotktz medicated or antiseptic creams, sprays, liquids, or dressings unless your health care provider approves. Contact a health care provider if: ??? You have new pain. ??? You develop irritation, a rash, or itching around the wound or dressing. ??? You see new black or yellow tissue in your wound. ??? The dressing changes are painful or cause bleeding. ??? The pump has been off for more than 2 hours, and you do not know how to change the dressing. ??? The pump alarm goes off, and you do not know what to do. Get help right away if: ??? You have a lot of bleeding. ??? The wound breaks open. ??? You have severe pain. ??? You have signs of infection, such as: ? More redness, swelling, or pain. ? More fluid or blood. ? Warmth. ? Pus or a bad smell. ? Red streaks leading from the wound. ? A fever. ??? You see a sudden change in the color or texture of the drainage. ??? You have signs of dehydration, such as: ? Little or no tears, urine, or sweat. ? Muscle cramps. ? Very dry mouth. ? Headache. ? Dizziness. Summary ??? Negative pressure wound therapy (NPWT) is a device that helps your wound heal. ??? Set up a clean station for wound care. Your health care provider will tell you what supplies to use. ??? Follow your health care provider's instructions on how to clean your wound and how to change the dressing. ??? Contact a health care provider if you have new pain, an irritation, or a rash, or if the alarm goes off and you do not know what to do. ??? Get help right away if you have a lot of bleeding, your wound breaks open, or you have severe pain. Also, get help if you have signs of infection. This information is not intended to replace advice given to you by your health care provider. Make sure you discuss any questions you have with your health care provider. Document Revised: 10/22/2020 Document Reviewed: 11/04/2019 [employer] Patient Education ? 2020 [employer] Dermatology Preventing Pressure Injuries A pressure injury, sometimes called a bedsore or a pressure ulcer, is an injury to the skin and underlying tissue caused by pressure. A pressure injury can happen when your skin presses against a surface, such as a mattress or wheelchair seat, for too long. The pressure on the blood vessels causes reduced blood flow to your skin. This can eventually cause the skin tissue to and break down into a wound. Pressure injuries usually develop: ??? Over bony parts of the body, such as the tailbone, shoulders, elbows, hips, and heels. ??? Under medical devices, such as respiratory equipment, stockings, tubes, and splints. How can this condition affect me? Pressure injuries are caused by a lack of blood supply to an area of skin. These injuries begin as a reddened area on the skin and can become an open sore. They can result from intense pressure over a short period of time or from less pressure over a long period of time. Pressure injuries can vary in severity. They can cause pain, muscle damage, and infection. What can increase my risk? This condition is more likely to develop in people who: ??? Are in the hospital or an extended care facility. ??? Are bedridden or in a wheelchair. ??? Have an injury or disease that keeps them from: ? Moving normally. ? Feeling pain or pressure. ? Communicating if they feel pain or pressure. ??? Have a condition that: ? Makes them sleepy or less alert. ? Causes poor blood flow. ??? Need to wear a medical office worker. ??? Have poor control of their bladder or bowel functions (incontinence). ??? Have poor nutrition (malnutrition). ??? Have had this condition before. ??? Are of certain ethnicities. People of , , or descent are at higher risk compared to other ethnic groups. What actions can I take to prevent pressure injuries? Reducing and redistributing pressure ??? Do not lie or sit in one position for a long time. Move or change position: ? Every hour when out of bed in a chair. ? Every two hours when in bed. ? As often as told by your health care provider. ??? Use pillows, wedges, or cushions to redistribute pressure. Ask your health care provider to recommend a mattress, cushions, or pads for you. ??? Use medical devices that do not rub your skin. Tell your health care provider if one of your medical devices is causing pain or irritation. Skin care If you are in the hospital, your health care providers: ??? Will inspect your skin, including areas under or around medical devices, at least twice a day. ??? May recommend that you use certain types of bedding to help prevent pressure injuries. These may include a pad, mattress, or chair cushion that is filled with gel, air, water, or foam. ??? Will evaluate your nutrition and consult a dietitian if needed. ??? Will inspect and change any wound dressings regularly. ??? May help you move into different positions every few hours. ??? Will adjust any medical devices and braces as needed to limit pressure on your skin. ??? Will keep your skin clean and dry. ??? May use gentle cleansers and skin protectants if you are incontinent. ??? Will moisturize any dry skin. In general, at home: ??? Keep your skin clean and dry. Gently pat your skin dry. ??? Do not rub or massage bony areas of your skin. ??? Moisturize dry skin. ??? Use gentle cleansers and skin protectants routinely if you are incontinent. ??? Check your skin at least once a day for any changes in color and for any new blisters or sores. Make sure to check under and around any medical devices and between skin folds. Have a caregiver do this for you if you are not able. Lifestyle ??? Be as active as you can every day. Ask your health care provider to suggest safe exercises or activities. ??? Do not abuse drugs or alcohol. ??? Do not use any products that contain nicotine or tobacco, such as cigarettes, e-cigarettes, and chewing tobacco. If you need help quitting, ask your health care provider. General instructions ??? Take ffrb-kaf-miodoqo and prescription medicines only as told by your health care provider. ??? Work with your health care provider to manage any chronic health conditions. ??? Eat a healthy diet that includes protein, vitamins, and minerals. Ask your health care provider what types of food you should eat. ??? Drink enough fluid to keep your urine pale yellow. ??? Keep all follow-up visits as told by your health care provider. This is important. Contact a health care provider if you: ??? Feel or see any changes in your skin. Summary ??? A pressure injury, sometimes called a bedsore or a pressure ulcer, is an injury to the skin and underlying tissue caused by pressure. ??? Do not lie or sit in one position for a long time. ??? Check your skin at least once a day for any changes in color and for any new blisters or sores. ??? Make sure to check under and around any medical devices and between skin folds. Have a caregiver do this for you if you are not able. ??? Eat a healthy diet that includes protein, vitamins, and minerals. Ask your health care provider what types of food you should eat. This information is not intended to replace advice given to you by your health care provider. Make sure you discuss any questions you have with your health care provider. Document Revised: 12/09/2019 Document Reviewed: 05/10/2019 [employer] Patient Education ? 2020 [employer] Infectious Disease Community-Acquired Pneumonia, Adult Pneumonia is an infection of the lungs. It causes irritation and swelling in the airways of the lungs. Mucus and fluid may also build up inside the airways. This may cause coughing and trouble breathing. One type of pneumonia can happen while you are in a hospital. A different type can happen when you are not in a hospital (community-acquired pneumonia). What are the causes? This condition is caused by germs (viruses, bacteria, or fungi). Some types of germs can spread from person to person. Pneumonia is not thought to spread from person to person. What increases the risk? You are more likely to develop this condition if: ??? You have a long-term (chronic) disease, such as: ? Disease of the lungs. This may be chronic obstructive pulmonary disease (COPD) or asthma. ? Heart failure. ? Cystic fibrosis. ? Diabetes. ? Kidney disease. ? Sickle cell disease. ? HIV. ??? You have other health problems, such as: ? Your body's defense system (immune system) is weak. ? A condition that may cause you to breathe in fluids from your mouth and nose. ??? You had your spleen taken out. ??? You do not take good care of your teeth and mouth (poor dental hygiene). ??? You use or have used tobacco products. ??? You travel where the germs that cause this illness are common. ??? You are near certain animals or the places they live. ??? You are older than 65 years of age. What are the signs or symptoms? Symptoms of this condition include: ??? A cough. ??? A fever. ??? Sweating or chills. ??? Chest pain, often when you breathe deeply or cough. ??? Breathing problems, such as: ? Fast breathing. ? Trouble breathing. ? Shortness of breath. ??? Feeling tired (fatigued). ??? Muscle aches. How is this treated? Treatment for this condition depends on many things, such as: ??? The cause of your illness. ??? Your medicines. ??? Your other health problems. Most adults can be treated at home. Sometimes, treatment must happen in a hospital. ??? Treatment may include medicines to kill germs. ??? Medicines may depend on which germ caused your illness. Very bad pneumonia is rare. If you get it, you may: ??? Have a machine to help you breathe. ??? Have fluid taken away from around your lungs. Follow these instructions at home: Medicines ??? Take ilap-dft-spxhqcv and prescription medicines only as told by your doctor. ??? Take cough medicine only if you are losing sleep. Cough medicine can keep your body from taking mucus away from your lungs. ??? If you were prescribed an antibiotic medicine, take it as told by your doctor. Do not stop taking the antibiotic even if you start to feel better. Lifestyle ??? Do not drink alcohol. ??? Do not use any products that contain nicotine or tobacco, such as cigarettes, e-cigarettes, and chewing tobacco. If you need help quitting, ask your doctor. ??? Eat a healthy diet. This includes a lot of vegetables, fruits, whole grains, low-fat dairy products, and low-fat (lean) protein. General instructions ??? Rest a lot. Sleep for at least 8 hours each night. ??? Sleep with your head and neck raised. Put a few pillows under your head or sleep in a reclining chair. ??? Return to your normal activities as told by your doctor. Ask your doctor what activities are safe for you. ??? Drink enough fluid to keep your pee (urine) pale yellow. ??? If your throat is sore, rinse your mouth often with salt water. To make salt water, dissolve ??1 tsp (3?6 g) of salt in 1 cup (237 mL) of warm water. ??? Keep all follow-up visits as told by your doctor. This is important. How is this prevented? You can lower your risk of pneumonia by: ??? Getting the pneumonia shot (vaccine). These shots have different types and schedules. Ask your doctor what works best for you. Think about getting this shot if: ? You are older than 65 years of age. ? You are 19?65 years of age and: ? You are being treated for cancer. ? You have long-term lung disease. ? You have other problems that affect your body's defense system. Ask your doctor if you have one of these. ??? Getting your flu shot every year. Ask your doctor which type of shot is best for you. ??? Going to the dentist as often as told. ??? Washing your hands often with soap and water for at least 20 seconds. If you cannot use soap and water, use hand fire engine pump operator. Contact a doctor if: ??? You have a fever. ??? You lose sleep because your cough medicine does not help. Get help right away if: ??? You are short of breath and this gets worse. ??? You have more chest pain. ??? Your sickness gets worse. This is very serious if: ? You are an older adult. ? Your body's defense system is weak. ??? You cough up blood. These symptoms may be an emergency. Do not wait to see if the symptoms will go away. Get medical help right away. Call your local emergency services (911 in the [place] Do not drive yourself to the hospital. Summary ??? Pneumonia is an infection of the lungs. ??? Community-acquired pneumonia affects people who have not been in the hospital. Certain germs can cause this infection. ??? This condition may be treated with medicines that kill germs. ??? For very bad pneumonia, you may need a hospital stay and treatment to help with breathing. This information is not intended to replace advice given to you by your health care provider. Make sure you discuss any questions you have with your health care provider. Document Revised: 05/29/2020 Document Reviewed: 05/29/2020 [employer] Patient Education ? 2020 [employer] Incision and Drainage, Care After This sheet gives you information about how to care for yourself after your procedure. Your health care provider may also give you more specific instructions. If you have problems or questions, contact your health care provider. What can I expect after the procedure? After the procedure, it is common to have: ??? Pain or discomfort around the incision site. ??? Blood, fluid, or pus (drainage) from the incision. ??? Redness and firm skin around the incision site. Follow these instructions at home: Medicines ??? Take ercf-ajw-xyvigxy and prescription medicines only as told by your health care provider. ??? If you were prescribed an antibiotic medicine, use or take it as told by your health care provider. Do not stop using the antibiotic even if you start to feel better. Wound care Follow instructions from your health care provider about how to take care of your wound. Make sure you: ??? Wash your hands with soap and water before and after you change your bandage (dressing). If soap and water are not available, use hand fire engine pump operator. ??? Change your dressing and packing as told by your health care provider. ? If your dressing is dry or stuck when you try to remove it, moisten or wet the dressing with saline or water so that it can be removed without harming your skin or tissues. ? If your wound is packed, leave it in place until your health care provider tells you to remove it. To remove the packing, moisten or wet the packing with saline or water so that it can be removed without harming your skin or tissues. ??? Leave stitches (sutures), skin glue, or adhesive strips in place. These skin closures may need to stay in place for 2 weeks or longer. If adhesive strip edges start to loosen and curl up, you may trim the loose edges. Do not remove adhesive strips completely unless your health care provider tells you to do that. Check your wound every day for signs of infection. Check for: ??? More redness, swelling, or pain. ??? More fluid or blood. ??? Warmth. ??? Pus or a bad smell. If you were sent home with a drain tube in place, follow instructions from your health care provider about: ??? How to empty it. ??? How to care for it at home. General instructions ??? Rest the affected area. ??? Do not take baths, swim, or use a hot tub until your health care provider approves. Ask your health care provider if you may take showers. You may only be allowed to take sponge baths. ??? Return to your normal activities as told by your health care provider. Ask your health care provider what activities are safe for you. Your health care provider may put you on activity or lifting restrictions. ??? The incision will continue to drain. It is normal to have some clear or slightly bloody drainage. The amount of drainage should lessen each day. ??? Do not apply any creams, ointments, or liquids unless you have been told to by your health care provider. ??? Keep all follow-up visits as told by your health care provider. This is important. Contact a health care provider if: ??? Your cyst or abscess returns. ??? You have a fever or chills. ??? You have more redness, swelling, or pain around your incision. ??? You have more fluid or blood coming from your incision. ??? Your incision feels warm to the touch. ??? You have pus or a bad smell coming from your incision. ??? You have red streaks above or below the incision site. Get help right away if: ??? You have severe pain or bleeding. ??? You cannot eat or drink without vomiting. ??? You have decreased urine output. ??? You become short of breath. ??? You have chest pain. ??? You cough up blood. ??? The affected area becomes numb or starts to tingle. These symptoms may represent a serious problem that is an emergency. Do not wait to see if the symptoms will go away. Get medical help right away. Call your local emergency services (911 in the [place] Do not drive yourself to the hospital. Summary ??? After this procedure, it is common to have fluid, blood, or pus coming from the surgery site. ??? Follow all home care instructions. You will be told how to take care of your incision, how to check for infection, and how to take medicines. ??? If you were prescribed an antibiotic medicine, take it as told by your health care provider. Do not stop taking the antibiotic even if you start to feel better. ??? Contact a health care provider if you have increased redness, swelling, or pain around your incision. Get help right away if you have chest pain, you vomit, you cough up blood, or you have shortness of breath. ??? Keep all follow-up visits as told by your health care provider. This is important. This information is not intended to replace advice given to you by your health care provider. Make sure you discuss any questions you have with your health care provider. Document Revised: 07/18/2019 Document Reviewed: 07/18/2019 [employer] Patient Education ? 2020 [employer] documented in this encounter Plan of Treatment Not on file documented as of this encounter Visit Diagnoses Not on filedocumented in this encounter
--- OUTSIDE RECORDS SUMMARY | 2025-02-21 13:44 | XMS_ITS | Encounter Summary ---
Author Organization [employer] Address [address] [place] [id number] Care Team Providers Care Varsity Baseball Coach Name Role Phone Unavailable Primary Care Provider Unavailabl e Encounter Details Date Type Department Care Team (Late st Contact Info) Description 03/19/2022 Transcribed Document [facility] [place] Family Medicine [address] [place] [address] ProviderFlorentino MD [address] [place] [address] Social History Tobacco Use Types Packs/Day Years Used Date Smoking Tobacco: Never Assessed Comments Unknown Sex and Gender Information Value Date Recorded Sex Assigned at Not on file Legal Sex Female 1:44 PM CDT Gender Identity Not on file Sexual Orientation Not on file documented as of this encounter Miscellaneous Notes * Cerner Conversion Note - Florentino ProviderMD - 03/19/2022 9:00 AM CDT [facility] Inpatient Documentation Entered On: 03/19/2022 14:23 EDT Performed On: 03/19/2022 14:14 EDT by Edwina Fraire LPN-LVN-Enterstomal Andres WOCN Admission Date : Admit Date 03/01/2022 17:[address] : No diagnoses found. Reason for WOCN Visit : Assessment, ongoing, Dressing change Admitting Diagnosis ST : Reason for Admission ACUTE RESP FAILURE WOCN Assessment Summary : Wound care maintenance team member at bedside. Patient has planeed to Patient is due for D/C in the am to facility vs home. Explained to patient that I will change out NPWT to left trochanter on 03/20 if she does not get D/C. Patient is in agreement with not having NPWT changed if been D/C in am. wound care team will notify MD. If any changes to skin integrity please consult wound dept. Fraire, Edwina, [facility] Therapy - 03/19/2022 14:14 EDT documented in this encounter Plan of Treatment Not on file documented as of this encounter Visit Diagnoses Not on filedocumented in this encounter
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
--- OUTSIDE RECORDS SUMMARY | 2025-02-21 13:44 | XMS_ITS | Encounter Summary ---
Author Organization [employer] Address [address] [place] [id number] Care Team Providers Care Circulation Worker Name Role Phone Unavailable Primary Care Provider Unavailabl e Encounter Details Date Type Department Care Team (Late st Contact Info) Description 04/08/2022 Transcribed Document [facility] [place] [facility] [place] [address] ProviderFlorentino MD [address], [place] [id number] Social History Tobacco Use Types Packs/Day Years Used Date Smoking Tobacco: Never Assessed Comments Unknown Sex and Gender Information Value Date Recorded Sex Assigned at Not on file Legal Sex Female 1:44 PM CDT Gender Identity Not on file Sexual Orientation Not on file documented as of this encounter Miscellaneous Notes * Cerner Conversion Note - Florentino Lynne MD - 04/08/2022 6:18 AM CDT Patient: ALYSSA AZUL Age: 61 years Sex: Female : 1960 Associated Diagnoses: Fall; Altered mental status; Sepsis; Acute UTI; ARF (acute renal failure); Hyperkalemia; Pancreatitis; Metabolic acidosis Author: JOSIAH BONILLA MD Basic Information History source: Patient, EMS. Arrival mode: Ambulance. History limitation: None. Additional information. History of Present Illness This is a 61-year-old female with a past medical history significant for paraplegia, chronic urostomy since youth, hypertension, diabetes, GERD who presents to the emergency department for increasing confusion, decreased appetite over the last week noted by family. She had a fall tonight at the residential, was noted to be out of her bed at around 4 AM. Nursing staff placed her back in the bed, and placed her on oxygen because her oxygen levels were low. They then called the family later and have now sent her to the emergency room for evaluation. She is paraplegic, it is unclear how she fell, the suspicion is that she rolled out of bed according to son. [facility], her residential, has not given a clear report to EMS and EMS states they were just called for a fall and enlarged clitoris with laceration . Patient cannot provide any history secondary to confusion. Abrasion on the left anterior knee, otherwise no clear indication of trauma. Of note, patient was recently discharged to SNF about 3 weeks ago for very complicated course of events including multiple cardiac arrest, intubations and sepsis with pneumonia. Fingerstick 90 on arrival. Review of Systems Additional review of systems information: Unable to obtain due to: Altered mental status. Health Status Allergies: Allergic Reactions (Selected) No Known Allergies . Medications: (Selected) Inpatient Medications Ordered Sodium Chloride 0.9% bolus: 1,000 mL, 1,000 mL/Hr, IV Piggyback, 1-Time Prescriptions Prescribed Mucinex 600 mg oral tablet, extended release: 1 Tab, Oral, BID, 1 Tab, 0 Refill(s) Documented Medications Documented Augmentin 500 mg-125 mg oral tablet: Oral, BID, 0 Refill(s) DuoNeb 0.5 mg-2.5 mg/3 mL inhalation solution: 3 mL, Nebulized Inhalation, RT_Q6H, PRN: Dyspnea, 0 Refill(s) Farxiga 10 mg oral tablet: 1 Tab, Oral, Daily, 0 Refill(s) Lovaza 1000 mg oral capsule: 2 Cap, Oral, BID, 360 Cap, 0 Refill(s) Pepcid 20 mg oral tablet: 1 Tab, Oral, At Bedtime, 0 Refill(s) acetaminophen 325 mg oral tablet: 2 Tab, Oral, Q6H, PRN: as needed for pain, 0 Refill(s) alendronate weekly: 70 mg, Oral, Weekly, 0 Refill(s) bisoprolol 5 mg oral tablet: 1 Tab, Oral, Daily, 0 Refill(s) docusate 10 mg/mL oral liquid: 10 mL, Oral, Daily, 0 Refill(s) doxycycline hyclate 100 mg oral capsule: 1 Cap, Oral, BID, 0 Refill(s) ferrous sulfate 325 mg (65 mg elemental iron) oral tablet: 1 Tab, Oral, BID, 0 Refill(s) furosemide 40 mg oral tablet: 1 Tab, Oral, Daily, PRN: swelling, 0 Refill(s) insulin lispro 100 units/mL injectable solution: 76 kg - 100 kg scale, SubCutaneous, AC and at Bedtime, 0 Refill(s) metFORMIN 500 mg oral tablet: 2 Tab, Oral, BID, 60 Tab, 0 Refill(s) pravastatin 40 mg oral tablet: 1 Tab, Oral, At Bedtime, 0 Refill(s) senna: Oral, At Bedtime, 0 Refill(s) , per nurse's notes. Immunizations: Per nurse's notes. Past Medical/ Family/ Social History Medical history Reviewed as documented in chart. Surgical history: Reviewed as documented in chart. Family history: Reviewed as documented in chart. Social history: Reviewed as documented in chart. Problem list: Active Problems (6) Chronic kidney disease (CKD), stage III (moderate) Diabetes History of obstructive sleep apnea Hyperlipidemia Hypertension Paraplegia , per nurse's notes. Physical Examination Vital Signs Vital Signs/Vital Measures 04/08/2022 5:58 EDT Systolic Blood Pressure 116 mmHg Diastolic Blood Pressure 60 mmHg Temperature Source Rectal Temperature Mode Fahrenheit Temperature, Fahrenheit 95.4 Deg F LOW Clinical Temperature, C 35.2 Deg C Peripheral Pulse Rate 66 bpm Respiratory Rate 14 Breaths/Min Oxygen Saturation 95 % Oxygen Therapy Mode Room air . Per nurse's notes. General: Alert, no acute distress. Skin: Warm, dry, Wound VAC in place left hip for chronic decubitus ulcer. Head: Normocephalic, atraumatic. Neck: Supple. Ears, nose, mouth and throat: Dry oral mucosa. Cardiovascular: Regular rate and rhythm, No murmur. Respiratory: Lungs are clear to auscultation, respirations are non-labored, breath sounds are equal. Chest wall: No tenderness, No deformity. Musculoskeletal: No swelling, no deformity, Abrasion left anterior knee with no indication of acute fracture or dislocation. No unilateral swelling or deformity. Gastrointestinal: Soft, Nontender, Non distended, Urostomy bag present with thick amezcua-colored urine. Genitourinary: Small abrasion right labia, no enlarged clitoris. Neurological: Moving bilateral upper extremities with equal strength., No verbal response at this time, but eyes are open and patient will focus if name is spoken.. Psychiatric: Cooperative. Medical Decision Making Differential Diagnosis: Confusion, dementia, cerebral vascular accident, hypoglycemia, urinary tract infection, pneumonia, delirium, dehydration, electrolyte imbalance, Hypercapnia, hyper ammonemia, thyroid disorder, acute intracranial catastrophe, anemia, polypharmacy. Documents reviewed: Emergency department nurses' notes, prior records. Results review: Lab results : Lab Results 04/08/2022 7:29 EDT pH Art out of range pCO2 Art 32.8 mmHg LOW pO2 Art 94.3 mmHg HCO3 Art out of range mmol/L BE Art out of range mmol/L sO2 Art 94.1 % LOW tHb Art 9.3 Gram/dL LOW FHHb 5.8 % NA ctO2 12.2 mmol/L NA Delivery Device Type Art Cannula Temperature, F Art 98.6 Deg F NA Art Blood Gas (ABG) Site Right Radial Acceptable Huang's Test Art Acceptable Ventilator Mode Art N/A Oxygen Flow Rate Art 3.0 Liter NA ABG Num of Draw Attempts 1 NA 04/08/2022 6:38 EDT Ammonia Level 124.0 uMol/L HI Urine Type. U Cath Urine Color Straw Urine Appearance Turbid Urine Specific Clymer 1.020 Urine pH Dipstick 6.0 Urine Leukocyte Esterase Large Urine Nitrite Negative Urine Protein Dipstick >=300 Urine Glucose Dipstick Negative Urine Ketones Dipstick Negative Urine Urobilinogen Dipstick 0.2 EU/dL Urine Bilirubin Dipstick Small Urine Blood Dipstick Large Ur RBC TNTC /HPF Ur WBC TNTC /HPF Ur Bacteria 4+ Ur Mucous 1+ Ur Squamous Epithelial Cells 3-5 /HPF Ur Transitional Epi Cells 3-5 Ur Yeast, Budding 4+ Urine Culture if Indicated Culture Ordered UDS pH 6.0 UDS Amp NEGATIVE UDS Annabel NEGATIVE UDS Benzo NEGATIVE UDS Charan NEGATIVE UDS Opi NEGATIVE UDS PCP NEGATIVE UDS TCA NEGATIVE UDS THC NEGATIVE Influenza A Negative Influenza B Negative SARS-CoV-2 (COVID19 PCR) Negative RSV PCR Negative 04/08/2022 6:21 EDT pH Art out of range pCO2 Art 24.6 mmHg CRIT pO2 Art 91.9 mmHg HCO3 Art out of range mmol/L BE Art out of range mmol/L sO2 Art 92.2 % LOW tHb Art 10.4 Gram/dL LOW FHHb 7.6 % NA ctO2 13.3 mmol/L NA Delivery Device Type Art Room Air Temperature, F Art 98.6 Deg F NA Art Blood Gas (ABG) Site Right Radial Acceptable Huang's Test Art Acceptable Ventilator Mode Art N/A ABG Num of Draw Attempts 1 NA 04/08/2022 6:09 EDT Sodium Level 133 mmol/L LOW Potassium Level 8.7 mmol/L CRIT Chloride Level 114 mmol/L HI Carbon Dioxide Level 3 mmol/L LOW Anion Gap 25 HI Glucose Level 99 mg/dL Blood Urea Nitrogen 83 mg/dL CRIT Creatinine Level 6.20 mg/dL HI eGFR 8 mL/min/1.73m2 LOW eGFR NonAfrican 7 mL/min/1.73m2 LOW Bun/Creatinine 13.4 Calcium Level 8.9 mg/dL Protein Total 8.1 Gram/dL Albumin Level 3.0 Gram/dL LOW Globulin 5.1 Gram/dL HI A/G Ratio 0.6 LOW Bilirubin Total 0.6 mg/dL Alk Phos 95 Units/Liter AST 15 Units/Liter ALT 19 Units/Liter Lipase Level 1,603 Units/Liter HI Lactic Acid Level 5.3 mmol/L CRIT Troponin I High Sensitivity 10.3 pg/mL WBC 31.3 K/uL CRIT RBC 3.77 Million/uL LOW Hgb 10.8 g/dL LOW Hct 36.9 % MCV 97.9 fL HI MCH 28.6 pg MCHC 29.3 Gram/dL LOW Platelet Count 356 K/uL MPV 10.8 fL RDW 16.5 % HI TSH 2.290 mcInt Units/mL FT4 0.56 ng/dL LOW Alcohol <3 mg/dL NA %Alcohol <.00 NA 04/08/2022 6:06 EDT Glucose POC2 90 mg/dL . Notes: Patient initially presents with stable vital signs, ABG obtained to assess for hypercapnia showing out of range pH, appropriate oxygenation, out of range bicarb and low PCO2. Code sepsis was initiated and lactic acid found to be elevated. Meropenem given, sepsis fluids ordered, remainder of work-up pending. Patient care transferred to Dr. Weiss at 0700.. Procedure NIH Stroke Scale Time Line Placement Time: 04/08/2022 08:25:00 . Confirmed: Patient, procedure, side, and site correct, Time-out taken prior to procedure. Consent: Emergent. Indication: Venous access, Hemodynamically unstable. Procedural sedation: Fentanyl and versed , IV, See nurse's notes. Monitoring: Cardiac, blood pressure, continuous pulse oximetry. Location: Left, Internal jugular vein. Preparation: Sterile field established, landmarks identified, Skin prepped with chlorhexidine, Local anesthesia: 5 ml 1% lidocaine injected locally. central venous line: 7 [place] triple lumen, Seldinger technique utilized for line placement, 1 attempts, Secured at 16 cm , following procedure. Post-procedure: Adequate blood return observed, Adequate fluid flow observed, Bilateral breath sounds, Circulation, motor, sensory exam intact. Patient tolerated: Well. Complications: None. Estimated Blood Loss: 5 ml. Performed by: Self. Total time: 30 minutes. Critical care note Total time: 30 minutes spent engaged in work directly related to patient care and/ or available for direct patient care. Critical condition(s) addressed for impending deterioration include: airway, cardiovascular, metabolic, renal. Associated risk factors: hypotension, shock, hypoxia, dysrhythmia, metabolic changes, dehydration, acidosis. Management: bedside assessment, supervision of care, Interpretation (chest x-ray, blood gases, electrocardiogram, blood pressure), Interventions (hemodynamic management, ventilator management, vascular access), Case review medical scientific officer, Alternate history family. Performed by: self. Endotracheal intubation Time: 04/08/2022 08:05:00 . Confirmed: Patient, procedure, and site correct, Time-out taken prior to procedure. Consent: Emergent. Indication: Airway protection. Airway assessment: Mallampati class: IV-hard palate only, ASA class: 4-severe systemic disease, constant threat. Procedural sedation: Versed and fentanyl , IV, See nurse's notes. Monitoring: Cardiac, blood pressure, continuous pulse oximetry. Preparation: Pre oxygenated. Technique: Oral intubation: A 7.5 ET tube was inserted, glidescope 3, Secured: measures 24 cm at the lips. Confirmation of tube placement: Bilateral chest rise, Positive color change indicated on end tidal CO2, Chest x-ray. Post procedure exam: Equal breath sounds, No epigastric breath sounds, Clinically improved. Post procedure management: Ventilator settings as documented. Complications: None. Estimated Blood Loss: 0 ml. Performed by: Self. Total time: 10 minutes. Impression and Plan Diagnosis Fall - Discharge, Medical Altered mental status - Discharge, Medical Fall - Discharge, Medical Altered mental status - Discharge, Medical Sepsis - Discharge, Medical Acute UTI - Discharge, Medical ARF (acute renal failure) - Discharge, Medical Hyperkalemia - Discharge, Medical Pancreatitis - Discharge, Medical Metabolic acidosis - Discharge, Medical Plan Condition: Stable. Disposition: Admit Admit/Transfer/Discharge: Admit to Inpatient (Order): Start: 04/08/2022 7:53 EDT, Admit reason: sepsis, UTI, ARF, hyperkalemia, pancreatitis, metabolic acidosis, Estimated length of stay 2 Midnights or LONGER, Level of Care: Critical Care Adult, Admitting: LUIS ANGEL CUNNINGHAM DO , Patient care transitioned to: Time: 04/08/2022 07:00:00, KAREN WEISS MD. Counseled: Patient, Family, Regarding diagnosis, Regarding diagnostic results, Regarding treatment plan. Notes: Pt with sepsis, ARF, hyperkalemia, pancreatitis, metabolic acidosis. given NS bolus, meropenam, bicarb, D50, insulin, albuterol, and calcium. Started on levophed. Discussed with hospitalist Dr. Cunningham who accepted admit to ICU. Pt became more lethargic, altered, and hypoxic. Intubated for airway protection and hypoxia. Central line placed after. 2 more amps of bicarb pushed, QRS narrowed and hypotension resolved. Pt more stable. . documented in this encounter Plan of Treatment Not on file documented as of this encounter Visit Diagnoses Not on filedocumented in this encounter
--- OUTSIDE RECORDS SUMMARY | 2025-02-21 13:44 | XMS_ITS | Encounter Summary ---
Author Organization [employer] Address [address] [place] [id number] Care Team Providers Care Heater Mechanic Name Role Phone Unavailable Primary Care Provider Unavailabl e Encounter Details Date Type Department Care Team (Late st Contact Info) Description 04/08/2022 Transcribed Document [facility] [facility] [place] [address] [place] [address] ProviderFlorentino MD [address] [place] [address] Social History Tobacco Use Types Packs/Day Years Used Date Smoking Tobacco: Never Assessed Comments Unknown Sex and Gender Information Value Date Recorded Sex Assigned at Not on file Legal Sex Female 1:44 PM CDT Gender Identity Not on file Sexual Orientation Not on file documented as of this encounter Miscellaneous Notes * Cerner Conversion Note - Florentino Lynne MD - 04/08/2022 1:42 PM CDT Spiritual Care Assessment Entered On: 04/09/2022 16:21 EDT Performed On: 04/09/2022 10:20 EDT by MARYBEL ROCHE General Information Referral Reason Comment : Living Will referral Accounts Collector Services Provided : Yes Accounts Collector Services Provided Comment : Request from Son for Medical Records Ministry Provided to : Family/Significant other MARYBEL ROCHE - 04/09/2022 16:19 EDT Interventions Advance Directive Information Provided : No Advance Directive Comment : Ms. Azul is intubated and sedated and unable to complete a Living Will Emotional Support : Empathic/Engaged listening, Family/Significant other supported, Feelings expressed, Information provided Spiritual and Latter-Day : Spiritual/Latter-Day support provided MARYBEL ROCHE - 04/09/2022 16:19 EDT Outcomes Affect/Behavior Changed : Encouraged Appreciation Expressed : Yes Information Received and Understood : Yes Thoughts, Feelings and Emotions Exp. : Yes Supportive Relationships Described : Son and [id number] at bedside MARYBEL ROCHE - 04/09/2022 16:19 EDT Electronically signed by Sumaya, [facility] Conversion Business Taxes Specialist Cerner at 12/21/2022 5:06 PM CDT documented in this encounter Plan of Treatment Not on file documented as of this encounter Visit Diagnoses Not on filedocumented in this encounter
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
--- OUTSIDE RECORDS SUMMARY | 2025-02-21 13:44 | XMS_ITS | Encounter Summary ---
Author Organization [employer] Address [address] [place] [address] Care Team Providers Care Court Bailiff Or Sheriff Name Role Phone Unavailable Primary Care Provider Unavailabl e Encounter Details Date Type Department Care Team (Late st Contact Info) Description 04/08/2022 Transcribed Document [facility] [place] [facility] [place] [address] ProviderFlorentino MD [address] [place] [address] Social History Tobacco Use Types Packs/Day Years Used Date Smoking Tobacco: Never Assessed Comments Unknown Sex and Gender Information Value Date Recorded Sex Assigned at Not on file Legal Sex Female 1:44 PM CDT Gender Identity Not on file Sexual Orientation Not on file documented as of this encounter Miscellaneous Notes * Cerner Conversion Note - Florentino Lynne MD - 04/08/2022 8:51 AM CDT Patient: ALYSSA AZUL Age: 61 years Sex: Female : 1960 Associated Diagnoses: None Author: DILMA BROWN APRN Referring physician: Dr. Weiss Reason for consult: Critical care management CC: Unable to obtain Basic Information HPI: The patient is a 61 year old female with past medical history significant for paraplegia, CKD, DM, HTN, and multiple recent hospitalizations, who presented to our faciltiy on 04/08 with chief complaints of increasing confusion and fall at nursing home facility. Per documentation, the patient is [...] She was discharged from our facility to nursing home facility. On 04/08, pulmonary is being [...] Documented Current medications: (Selected) Inpatient Medications Ordered NORepinephrine injection 8 mg + NaCl 0.9% for drip 250 mL: TITRATE, IntraVENous sodium bicarbonate 150 mEq + Dextrose 5% in Water intravenous solution 1,000 mL: 100 mL/Hr, IntraVENous Prescriptions Prescribed Mucinex 600 mg oral tablet, [...] 0 Refill(s) senna: Oral, At Bedtime, 0 Refill(s), Medications (2) Active Scheduled: (0) Continuous: (2) NORepinephrine 8 mg + NaCl 0.9% T ITRATE 250 mL 250 mL, IntraVENous sodium bicarbonate 150 mEq + Dextrose 5% in Water 1,000 mL 1,000 mL, IntraVENous, 100 mL/Hr PRN: (0) Problem list: All Problems Paraplegia / SNOMED CT 687319511 / Confirmed Hypertension / SNOMED CT 6975686946 / Confirmed Hyperlipidemia / SNOMED CT 96718106 / Confirmed History of obstructive sleep apnea / IMO [id number] / Confirmed Diabetes / SNOMED CT 923260472 / Confirmed Chronic kidney disease (CKD), stage III (moderate) / SNOMED CT 7522293440 / Confirmed Canceled: Type 1 diabetes with stage 3 chronic kidney disease moderate GFR 30-59 / SNOMED CT 605028917 Canceled: Diabetes / SNOMED CT 019984536, Active Problems (6) Chronic kidney disease (CKD), stage III (moderate) Diabetes History of obstructive sleep apnea Hyperlipidemia Hypertension Paraplegia Physical Examination VS/Measurements Vitals Signs (last 24 hrs) Last Charted Minimum Maximum Temp L 94.1 (APR 08 07:14) L 94.1 (APR 08 07:14) L 95.4 (APR 08 05:58) Mon HR 72 (APR 08 08:33) 42 (APR 08 07:45) 84 (APR 08 08:10) Periph HR 66 (APR 08 05:58) 66 (APR 08 05:58) 66 (APR 08 05:58) Resp Rate 17 (APR 08 08:33) 14 (APR 08 05:58) H 37 (APR 08 07:30) SBP 107 (APR 08 08:33) L 56 (APR 08 07:45) 135 (APR 08 08:00) DBP L 44 (APR 08 08:33) L 28 (APR 08 07:30) 60 (APR 08 05:58) MAP 63 (APR 08 08:33) 38 (APR 08 07:30) 78 (APR 08 08:00) SpO2 100 (APR 08 08:33) L 92 (APR 08 07:45) 100 (APR [...] charted values) WBC C 31.3 (APR 08) HB L 10.8 (APR 08) HCT 36.9 (APR 08) Plt 356 (APR 08) Na L 133 (APR 08) K C 8.7 (APR 08) Cl H 114 (APR 08) CO2 L 3 (APR 08) BUN C 83 (APR 08) Cr H 6.20 (APR 08) Glu R 99 (APR 08) Ca 8.9 (APR 08) Lactic C 5.3 (APR 08) AST 15 (APR 08) ALT 19 (APR 08) ALK P 95 (APR 08) T Bili 0.6 (APR 08) PTN 8.1 (APR 08) ALB L 3.0 (APR 08) Lipase H 1603 (APR 08) . APR 08 06:09 \ L 10.8 / C 31.3 356 / 36.9 \ Blood Gases (Current Encounter/Past 24 Hours) pH Art out of range NA 04/08/2022 07:35 pCO2 Art 32.8 LOW 04/08/2022 07:35 pO2 Art 94.3 04/08/2022 07:35 HCO3 Art out of range NA 04/08/2022 07:35 BE Art out of range NA 04/08/2022 07:35 sO2 Art 94.1 LOW 04/08/2022 07:35 tHb Art 9.3 LOW 04/08/2022 07:35 FHHb 5.8 NA 04/08/2022 07:35 ctO2 12.2 NA 04/08/2022 07:35 Delivery Device Type Art Cannula 04/08/2022 07:35 Temperature, F Art 98.6 NA 04/08/2022 07:35 Art Blood Gas (ABG) Site Right Radial 04/08/2022 07:35 Acceptable Huang's Test Art Acceptable NA 04/08/2022 07:35 Ventilator Mode Art N/A NA 04/08/2022 07:35 Oxygen Flow Rate Art 3.0 NA 04/08/2022 07:35 ABG Num of Draw Attempts 1 NA 04/08/2022 07:35 Radiology Results (Last 48 hours) [id number] -- 04/08/2022 07:53 CR Chest 1 Vw [...] by Dr. Dariel Philippe.Transcribed by Mai Rucker PA-C. ECHO done on 03/09/22: Impression: Normal sized [...] and flu A/B Cardiovascular Severe sepsis with shock Echocardiogram done on 03/09/2022. EF 55%. Normal systolic function. Moderate LVH. Indeterminate diastolic function. No significant valvular heart disease. ID Severe sepsis with shock Leukocytosis Recent Klebsiella pneumonia Left gluteal decub ulcer requiring previous debridement, now with wound vac Neuro Now sedated on vent Baseline paraplegia Renal Acute kidney injury. Non oliguric type-improving. CKD III, baseline creatinine 1.6 per documentation Severe metabolic acidosis with elevated anion gap Electrolyte disturbances Severe hyperkalemia Lactic acidosis GI Acute pancreatitis Hyperammonemia Endocrine T2DM with hyperglycemia. Glycemic control Hematology/Oncology Leukocytosis Anemia Plan Vent bundle Current vent settings: AC 18, TV 400, PEEP 5, and FiO2 100%, settings adjusted to rate of 26, and TV 480, will repeat ABG in one hour Sedation: Fentanyl propofol for goal RASS -2 [...] Pepcid, add Heparin AM labs and imaging documented in this encounter Plan of Treatment Not on file documented as of this encounter Visit Diagnoses Not on filedocumented in this encounter
--- OUTSIDE RECORDS SUMMARY | 2025-02-21 13:44 | XMS_ITS | Encounter Summary ---
Author Organization [employer] Address [address] [place] [address] Care Team Providers Care School Speech Therapist Name Role Phone Unavailable Primary Care Provider Unavailabl e Encounter Details Date Type Department Care Team (Late st Contact Info) Description 04/26/2022 Transcribed Document [facility] [place] Family Medicine [address] [place] [address] ProviderFlorentino MD [address] [place] [address] Social History Tobacco Use Types Packs/Day Years Used Date Smoking Tobacco: Never Assessed Comments Unknown Sex and Gender Information Value Date Recorded Sex Assigned at Not on file Legal Sex Female 1:44 PM CDT Gender Identity Not on file Sexual Orientation Not on file documented as of this encounter Miscellaneous Notes * Cerner Conversion Note - Florentino Lynne MD - 04/26/2022 1:17 PM CDT Stroke/Warfarin Instructions Entered On: 04/26/2022 13:18 EDT Performed On: 04/26/2022 13:17 EDT by Vidal Ibrahim RN Stroke/Warfarin Instructions Stroke/TIA Discharge Ins : N/A Warfarin Discharge Ins : N/A Vidal Ibrahim RN - 04/26/2022 13:17 EDT documented in this encounter Plan of Treatment Not on file documented as of this encounter Visit Diagnoses Not on filedocumented in this encounter
--- OUTSIDE RECORDS SUMMARY | 2025-02-21 13:44 | XMS_ITS | Encounter Summary ---
Author Organization [employer] Address [address] [place] [address] Care Team Providers Care Admin Asst Name Role Phone Unavailable Primary Care Provider Unavailabl e Encounter Details Date Type Department Care Team (Late st Contact Info) Description 04/13/2022 Transcribed Document [facility] [place] [address] [place] [address] ProviderFlorentino MD [address] [place] [address] Social History Tobacco Use Types Packs/Day Years Used Date Smoking Tobacco: Never Assessed Comments Unknown Sex and Gender Information Value Date Recorded Sex Assigned at Not on file Legal Sex Female 1:44 PM CDT Gender Identity Not on file Sexual Orientation Not on file documented as of this encounter Miscellaneous Notes * Cerner Conversion Note - Historical ProviderMD - 04/13/2022 2:00 AM CDT Home Health Clinical Supervisor Details Entered On: 04/13/2022 1:26 EDT Performed On: 04/13/2022 2:00 EDT by Hebert Barker RN Order [...] Yes Meds Administered Via Tube : Yes Hebert Barker RN - 04/13/2022 1:25 EDT documented in this encounter Plan of Treatment Not on file documented as of this encounter Visit Diagnoses Not on filedocumented in this encounter
--- OUTSIDE RECORDS SUMMARY | 2025-02-21 13:44 | XMS_ITS | Encounter Summary ---
Author Organization [employer] Address [address] [place] [address] Care Team Providers Care Motor Vehicle License Clerk Name Role Phone Unavailable Primary Care Provider Unavailabl e Encounter Details Date Type Department Care Team (Late st Contact Info) Description 04/26/2022 Transcribed Document [facility] [place] Medicine [address] [place] [address] ProviderFlorentino MD [address] [place] [address] Social History Tobacco Use Types Packs/Day Years Used Date Smoking Tobacco: Never Assessed Comments Unknown Sex and Gender Information Value Date Recorded Sex Assigned at Not on file Legal Sex Female 1:44 PM CDT Gender Identity Not on file Sexual Orientation Not on file documented as of this encounter Miscellaneous Notes * Cerner Conversion Note - Florentino Lynne MD - 04/26/2022 9:06 AM CDT Patient: ALYSSA AZUL Age: 61 [...] with paraplegia, diabetes. She was admitted to [facility] in February with acute hypoxic respiratory [...] last hospitalization. Apparently when she fell at [facility] prior to admission she had injury to [...] will go to rehab. Vital Signs T: 37.2 ??C TMIN: 36.2 ??C TMAX: 37.4 ??C HR: 93(Monitored) RR: 16 BP: 109/70 SpO2: 95% Oxygen Settings (Last) Oxygen Therapy Mode: Room air (04/26/22 08:05:00) Oxygen Flow Rate: 2 Liter/Min (04/13/22 04:00:00) Discharge Disposition Home with Home Care Discharge Follow Up SAUL COPPOLA MD-[facility] - 09:15 AM Follow up with primary care provider - Within 2 to 3 days Follow up with specialist - Within 1 to 2 weeks HIGINIO AREVALO - In 18 days 05/13/2022 [facility] - 00:00 AM Discharge Medications (14) Active acetaminophen 325 mg oral tablet 650 mg = 2 Tab, PRN, Oral, Q6H alendronate weekly 70 mg, Oral, Thursday bisoprolol 5 mg oral tablet 5 mg = 1 Tab, Oral, Daily cefuroxime 500 mg oral tablet 500 mg = 1 Tab, Oral, BID docusate 10 mg/mL oral liquid 100 mg [...] 04/08/22 19:03:00 EDT, Full Code, Continuous Order Consulting Physicians MARGARETH MANRIQUEZ MD (campos with hyperkalemia) VINNIE SWEENEY MD ALLEN, MARTY, MD-INF - septic shock, UTI MONSE KIM MD-INF RIBERA, FRANCIS Mathews MD-RAD IBRAHIMA, KARYNA Higgins MD-[facility], ASHISH Melgar MD-URO - hydronephrosis RAY, GUERITA Pagan MD-URO ANAT, SAUL Hgigins MD-NEP Current Diet Order Diet, Adult - Ordered -- Start: 04/21/22 15:35:00 EDT, Cardiac Diet, Isolation: Standard Precautions Pending Labs No Labs on Record Time Spent on Discharge 40 min documented in this encounter Plan of Treatment Not on file documented as of this encounter Visit Diagnoses Not on filedocumented in this encounter
--- OUTSIDE RECORDS SUMMARY | 2025-02-21 13:44 | XMS_ITS | Encounter Summary ---
Author Organization [employer] Address [address] [place] [address] Care Team Providers Care Black Topper Name Role Phone Unavailable Primary Care Provider Unavailabl e Encounter Details Date Type Department Care Team (Late st Contact Info) Description 04/13/2022 Transcribed Document [facility] [place] Family Medicine [address] [place] [address] ProviderFlorentino MD [address] [place] [address] Social History Tobacco Use Types Packs/Day Years Used Date Smoking Tobacco: Never Assessed Comments Unknown Sex and Gender Information Value Date Recorded Sex Assigned at Not on file Legal Sex Female 1:44 PM CDT Gender Identity Not on file Sexual Orientation Not on file documented as of this encounter Miscellaneous Notes * Cerner Conversion Note - Florentino Lynne MD - 04/13/2022 11:34 AM CDT Patient: ALYSSA AZUL Age: 61 Years Sex: Female : 1960 Subjective Remains in the ICU. Blood pressure starting to trend back down. Not on pressors. Oxygen is weaned down to room air. Creatinine has trended up but she is having good urine output now. Hemoglobin stable. Complains of diarrhea, multiple episodes. No abdominal pain , no nausea Vital Signs T: 36.8 ??C TMIN: 36.6 ??C TMAX: 37.1 ??C HR: 64(Monitored) RR: 35 BP: 87/52 SpO2: 94% HT: 167.64 cm WT: 84.6 kg BMI: 30.1 Oxygen Settings (Last) Oxygen Therapy Mode: Room air (04/13/22 11:01:00) Oxygen Flow Rate: 2 Liter/Min (04/13/22 04:00:00) Intake & Output Totals Last 24 Hours (7a-7a) Input Total: 2182.84 mL Output Total: 1305 mL Balance: 877.84 mL Physical Exam General: Alert, obese, weak, no acute distress Neurologic: Moves all upper [...] lactic acidosis, leukocytosis, JAVIER, respiratory failure Source wound, UTI ID following: Zyvox, meropenem, micafungin Wound culture + Citrobacter koseri, MRSA, Corynebacterium species, Klebsiella oxytoca Urine culture + Pseudomonas, E coli Vasopressors weaned off 04/11 Stress steroids discontinued #Acute hypoxic respiratory failure?resolved Intubated on 04/08, extubated 04/[address] chest with trace right effusion Pneumonia PCR negative #Acute on chronic renal failure stage III With [...] #Hypertension Hold beta-carmen with bradycardia Hydralazine PRN #Dysphagia Speech following: FEES Thursday Corpak and tube feeds for now #Diarrhea Abx, tube feed induced? Hopefully can get diet and stop tube feeds tomorrow If worsens clinically consider sending for c diff otherwise may start imodium if no improvement Disposition: Still hospitalized due to -still doing well but blood pressure has been up and down. If okay with other specialists can consider transfer out of ICU. At d/c will likely need - abx, oxygen, PT Tentatively at d/c will be going to - SNF Expected d/c date - TBD VTE Prophylaxis - Medical Heparin 5,000 Units, [...] mg= 1 mL, IV Push, On-CALL, PRN EPINEPHrine, 1 mg= 1 mL, IntraMuscular, On-CALL, [...] 20 Units= 0.2 mL, SubCutaneous, BID insulin glargine, 8 Units= 0.08 mL, SubCutaneous, 1-Time insulin regular sliding scale, Scale C, SubCutaneous, Q6H lactobacillus acidophilus, 1 Cap, Oral, BID meropenem + Sodium Chloride 0.9% intravenous solution 50 mL micafungin NORepinephrine injection 16 mg + NaCl 0.9% for drip 250 mL Norvasc, 5 mg= 1 Tab, Oral, Daily Pepcid, 20 mg= 2 mL, IV Push, Daily phenylephrine injection 80 mg + NaCl 0.9% for drip 250 mL Tylenol, 650 mg= 2 Tab, Oral, Q6H, PRN vasopressin injection 40 Units [0.03 Units/min] + Dextrose 5% in Water intravenous solution 100 mL Zofran, 4 mg= 2 mL, IV Push, Q6H, PRN Zyvox, 600 mg= 300 mL, IV Piggyback, [id number] Lab Results Test Name Test Result Date/Time Sodium Level 137 mmol/L 04/13/2022 02:40 EDT Potassium Level 3.1 mmol/L (Low) 04/13/2022 02:40 EDT Chloride Level 107 mmol/L 04/13/2022 02:40 EDT Carbon Dioxide Level 26 mmol/L 04/13/2022 02:40 EDT Anion Gap 7 (Low) 04/13/2022 02:40 EDT Glucose Level 222 mg/dL (High) 04/13/2022 02:40 EDT Blood Urea Nitrogen 26 mg/dL (High) 04/13/2022 02:40 EDT Creatinine Level 1.70 mg/dL (High) 04/13/2022 02:40 EDT eGFR 37 mL/min/1.73m2 (Low) 04/13/2022 02:40 EDT eGFR NonAfrican 31 mL/min/1.73m2 (Low) 04/13/2022 02:40 EDT Bun/Creatinine 15.3 04/13/2022 02:40 EDT Calcium Level 8.2 mg/dL (Low) 04/13/2022 02:40 EDT Protein Total 5.3 Gram/dL (Low) 04/13/2022 02:40 EDT Albumin Level 2.1 Gram/dL (Low) 04/13/2022 02:40 EDT Globulin 3.2 Gram/dL 04/13/2022 02:40 EDT A/G Ratio 0.7 (Low) 04/13/2022 02:40 EDT Bilirubin Total 0.3 mg/dL 04/13/2022 02:40 EDT Alk Phos 64 Units/Liter 04/13/2022 02:40 EDT AST 15 Units/Liter 04/13/2022 02:40 EDT ALT 16 Units/Liter 04/13/2022 02:40 EDT Magnesium Level 2.3 mg/dL 04/13/2022 02:40 EDT Phosphorus 2.3 mg/dL (Low) 04/13/2022 02:40 EDT Device Comment 1 Notified Nurse RBV 04/13/2022 05:50 EDT Device Comment 1 Notified Nurse RBV 04/12/2022 23:32 EDT Device Comment 1 Notified Nurse RBV 04/12/2022 17:40 EDT Device Comment 1 Notified Nurse RBV 04/12/2022 11:37 EDT Glucose POC2 159 mg/dL (High) 04/13/2022 05:50 EDT Glucose POC2 160 mg/dL (High) 04/12/2022 23:32 EDT Glucose POC2 171 mg/dL (High) 04/12/2022 17:40 EDT Glucose POC2 240 mg/dL (High) 04/12/2022 11:37 EDT Lactic Acid Level 1.7 mmol/L 04/13/2022 03:00 EDT WBC 8.4 K/uL 04/13/2022 02:40 EDT RBC 2.56 Million/uL (Low) 04/13/2022 02:40 EDT Hgb 7.4 g/dL (Low) 04/13/2022 02:40 EDT Hct 22.4 % (Low) 04/13/2022 02:40 EDT MCV 87.5 fL 04/13/2022 02:40 EDT MCH 28.9 pg 04/13/2022 02:40 EDT MCHC 33.0 Gram/dL 04/13/2022 02:40 EDT Platelet Count 106 K/uL (Low) 04/13/2022 02:40 EDT MPV 9.4 fL 04/13/2022 02:40 EDT RDW 15.7 % (High) 04/13/2022 02:40 EDT Neut % 74.9 % (High) 04/13/2022 02:40 EDT Neut # 6.25 K/uL (High) 04/13/2022 02:40 EDT Lymph % 17.3 % (Low) 04/13/2022 02:40 EDT Lymph # 1.45 x10(3)/uL 04/13/2022 02:40 EDT [place] % 5.5 % 04/13/2022 02:40 EDT [place] # 0.46 K/uL 04/13/2022 02:40 EDT Eos % 1.4 % 04/13/2022 02:40 EDT Eos # 0.12 x10(3)/uL 04/13/2022 02:40 EDT Baso % 0.1 % 04/13/2022 02:40 EDT Baso # .01 x10(3)/uL 04/13/2022 02:40 EDT nRBC 0.020 (High) 04/13/2022 02:40 EDT Slide Review No 04/13/2022 02:40 EDT IG# 0.07 x10(3)/uL (High) 04/13/2022 02:40 EDT IG% 0.80 % (High) 04/13/2022 02:40 EDT Procalcitonin <0.25 ng/mL 04/13/2022 02:40 EDT Electronically signed by Sumaya, [facility] Conversion [employer] Visiting Teacher Cerner at 12/21/2022 5:07 PM CDT documented in this encounter Plan of Treatment Not on file documented as of this encounter Visit Diagnoses Not on filedocumented in this encounter
--- OUTSIDE RECORDS SUMMARY | 2025-02-21 13:44 | XMS_ITS | Encounter Summary ---
Author Organization [employer] Address [address] [place] [address] Care Team Providers Care Cap Cutter Name Role Phone Unavailable Primary Care Provider Unavailabl e Encounter Details Date Type Department Care Team (Late st Contact Info) Description 04/08/2022 Transcribed Document [facility] [place] Family Medicine [address] [place] [address] ProviderFlorentino MD [address] [place] [address] Social History Tobacco Use Types Packs/Day Years Used Date Smoking Tobacco: Never Assessed Comments Unknown Sex and Gender Information Value Date Recorded Sex Assigned at Not on file Legal Sex Female 1:44 PM CDT Gender Identity Not on file Sexual Orientation Not on file documented as of this encounter Miscellaneous Notes * Cerner Conversion Note - Florentino ProviderMD - 04/08/2022 5:53 PM CDT Suicide Risk Screen Entered On: 04/11/2022 20:40 EDT Performed On: 04/08/2022 17:53 EDT by Hebert Barker RN Suicide Risk Screen Tried to Harm Yourself in the Past? : No Thoughts of Harming/Killing Yourself : No Hebert Barker RN - 04/11/2022 20:40 EDT documented in this encounter Plan of Treatment Not on file documented as of this encounter Visit Diagnoses Not on filedocumented in this encounter
--- OUTSIDE RECORDS SUMMARY | 2025-02-21 13:44 | XMS_ITS | Encounter Summary ---
Author Organization [employer] Address [address] [place] [address] Care Team Providers Care Gaming Investigator Name Role Phone Unavailable Primary Care Provider Unavailabl e Encounter Details Date Type Department Care Team (Late st Contact Info) Description 03/09/2022 Transcribed Document [facility] [place] Family Medicine [address] [place] [address] ProviderFlorentino MD [address] [place] [address] Social History Tobacco Use Types Packs/Day Years Used Date Smoking Tobacco: Never Assessed Comments Unknown Sex and Gender Information Value Date Recorded Sex Assigned at Not on file Legal Sex Female 1:44 PM CDT Gender Identity Not on file Sexual Orientation Not on file documented as of this encounter Miscellaneous Notes * Cerner Conversion Note - Florentino ProviderMD - 03/09/2022 2:51 AM CDT Swallow Evaluation Entered On: 03/09/2022 8:55 EDT Performed On: 03/09/2022 8:42 EDT by NAHOMI NG, ODD SHOE EXAMINER General Information Respiratory Assessment Comment : nasal cannula NAHOMI NG, ODD SHOE EXAMINER - 03/09/2022 8:59 EDT Visit Type, ODD SHOE EXAMINER : Initial evaluation Patient Orders : Consult to Speech Language Pathology for Swallow Eval -111 Start: 03/09/22 2:51:00 EDT, Routine, For Swallow Eval and Treat - Elaine Ramires PHYSICIAN-CLINGopal Admission Date : Admission Date/Time: 03/01/22 17:45:00 Medical Chart Reviewed, ODD SHOE EXAMINER : Yes Personal Devices : Personal Devices No Devices Recorded Assistive Devices : Assistive Devices No Devices Recorded Active Diagnoses : No Qualifying Diagnoses Therapy Diagnosis, ODD SHOE EXAMINER : Overt pharyngeal dysphagia patterns: Aphonia, diffusely weak overall. Weak cough, multiple swallows with ice. Pt is not safe to initiate PO diet. She will need several days of tx prior to considering instrumental RECS 1. Continue NPO with TF via Corpak 2. Ice chips are OK in moderation and after oral care 3. ST will tx dysphagia several days 4. Pt MUST have instrumental prior to initiating PO diet Isolation Maintained : Other: Standard Previous Swallow Precautions : Pt was seen at [facility] [place] late January/early February. She was intubated twice and placed on reg/thin diet. No instrumental completed Diet/Intake Prior to Current Admission : reg/thin Diet/Intake During Current Admission : NPO with TF via Corpak Intubation Comment, ODD SHOE EXAMINER : 02/21 intubated after cardiac arrest, extubated [...] Initial Wt: 03/01 90.0 kg 198 lb NAHOMI NG, LADONNA - 03/09/2022 8:42 EDT General Status Patient Received Status, ODD SHOE EXAMINER : Long sitting in bed Treatment Start Time, ODD SHOE EXAMINER : 03/09/2022 8:20 EDT Patient Left Status, ODD SHOE EXAMINER : Long sitting in bed Treatment End Time, ODD SHOE EXAMINER : 03/09/2022 8:44 EDT Treatment Time, ODD SHOE EXAMINER : 24 Minute(s) NAHOMI NG, LADONNA - 03/09/2022 8:42 EDT Pain Assessment Pain Scaled Used : FACES Pain Score Pre-Intervention : 2 NAHOMI NG SLP - 03/09/2022 8:42 EDT Image 1 - Images currently included in the form version of this document have not been included in the text rendition version of the form. Oral Mechanism Dysarthria : No Brief Phonation Quality : Aphonic Oral Mechanism for Daily Living : Intact Facial Appearance: : Symmetrical Labial Appearance : Symmetrical Labial Function : All function intact Dental/Orthodontia : Teeth, own Condition of Dentition : Intact Lingual Appearance : Symmetrical NAHOMI NG SLP - 03/09/2022 8:42 EDT Bedside Swallow Swallow Outcome BS Swallow : Needs additional assessment Head Control BS Swallow : Neutral head position Presentation Style BS Swallow : Clinician Swallow Position BS Swallow : Upright 90 degrees Trunk Control BS Swallow : Upright centered position Consistencies Trialed BS Swallow : Ice chips NAHOMI NG SLP - 03/09/2022 8:42 EDT Swallow Impressions Swallowing Outcome Measures : Functional Oral Intake Scale (FOIS) Functional Oral Intake Scale (FOIS) : Level I NAHOMI NG SLP - 03/09/2022 8:42 EDT Bedside Swallow Overall Impressions : Per MD notes, pt is a 61 year old female with PMHx significant for paraplegia, CKD stage 3, DM2, and HTN. Pt was admitted to OSH 02/17/22 with c/o dyspnea, fever, chills, and cough. On 02/21 she had cardiac arrest and required intubation. She was transferred to [facility] and extubated 02/22. Unfortunately she was reintubated later that afternoon and extubated 02/17. She was intubated for the third time 03/01 and transferred to [facility] for higher level of care. She was extubated 03/[address] asked to see for dysphagia. Pt is seen at bedside for dysphagia eval. She is awake, alert, oriented personally, spatially, and temporally, she is very pleasant. her voice is completely aphonic and her cough is very weak and unproductive. Oral skills appear functional. Pharyngeal patterns are soft and include multiple swallows. Given multiple intubations, vocal quality, and overall general weakness, pt will need several days of tx prior to considering instrumental. She may have ice chips in moderation after oral care, continue NPO with TF via Corpak, non-oral meds. Discussed ODD SHOE EXAMINER plan with RN and pt. NAHOMI NG SLP - 03/09/2022 8:59 EDT Swallow Recommendations Recommended Diet Type, SwRec : Non-oral feeding, NPO, OK for ice Recommended Med Present, SwRec : Non-oral Recommended Exam, Sw Rec : FEES Repeat Swallow Exam Timeframe : 1-3 days NAHOMI NG SLP - 03/09/2022 8:42 EDT Therapy Indication Assessment ODD SHOE EXAMINER Indicated : Yes ODD SHOE EXAMINER Problem List : Impaired, Swallowing NAHOMI NG SLP - 03/09/2022 8:42 EDT Swallow Plan/Goals Treatment Frequency, ODD SHOE EXAMINER : 5 times per wk Treatment Plan Est w/Pt/Caregvr, Swallow : Yes NAHOMI NG SLP - 03/09/2022 8:42 EDT Swallow LTG Grid ODD SHOE EXAMINER Correction Goal #1 Swallow LTG : Establish safe oral diet without aspiration Status : Initial NAHOMI NG SLP - 03/09/2022 8:42 EDT Swallow Goals Grid Goal #1 Goal #2 Swallow STG : Improve pharyngeal strength Other: FEES Related To : Aspiration prevention Measurement by repeat instrumental exam Date to Meet : 03/11/2022 EDT 03/11/2022 EDT Status : Initial goal Initial goal NAHOMI NG SLP - 03/09/2022 8:42 EDT NAHOMI NG SLP - 03/09/2022 8:42 EDT Education Barriers To Learning : None evident Individuals Taught : Patient NAHOMI NG SLP - 03/09/2022 8:42 EDT ODD SHOE EXAMINER Education Assessment Grid 1 Aspiration : Needs further teaching Ice Chips : Needs further teaching Non-Oral Nutrition : Needs further teaching NAHOMI NG SLP - 03/09/2022 8:42 EDT ODD SHOE EXAMINER Education Assessment Grid 2 Speech Language Pathology Treatment Plan : Needs further teaching NAHOMI NG SLP - 03/09/2022 8:42 EDT Additional Evals/Referrals Dysphagia Evaluation (Swallow) : Fiberoptic Endoscopic Evaluation of Swallowing (FEES), adult NAHOMI NG SLP - 03/09/2022 8:[address] [facility] ODD SHOE EXAMINER Charges Evaluation Swallowing Function : 1 ODD SHOE EXAMINER EA ADDL 15 MIN NO CHARGE : 1 NAHOMI NG SLP - 03/09/2022 8:42 EDT Anticipated Discharge Needs, ODD SHOE EXAMINER Anticipated Discharge to : Rehab, high intensity Recommend Continued Therapy at Discharge : Yes NAHOMI NG SLP - 03/09/2022 8:42 EDT Electronically signed by Sumaya, [facility] Conversion Film Crew Member Cerner at 12/21/2022 5:02 PM CDT documented in this encounter Plan of Treatment Not on file documented as of this encounter Visit Diagnoses Not on filedocumented in this encounter
--- OUTSIDE RECORDS SUMMARY | 2025-02-21 13:44 | XMS_ITS | Encounter Summary ---
Author Organization [employer] Address [address] [place] [address] Care Team Providers Care Ben Day Artist Name Role Phone Unavailable Primary Care Provider Unavailabl e Encounter Details Date Type Department Care Team (Late st Contact Info) Description 04/08/2022 Transcribed Document [facility] [place] [address] [place] [address] ProviderFlorentino MD [address] [place] [address] Social History Tobacco Use Types Packs/Day Years Used Date Smoking Tobacco: Never Assessed Comments Unknown Sex and Gender Information Value Date Recorded Sex Assigned at Not on file Legal Sex Female 1:44 PM CDT Gender Identity Not on file Sexual Orientation Not on file documented as of this encounter Miscellaneous Notes * Cerner Conversion Note - Florentino Lynne MD - 04/08/2022 11:30 AM CDT WOCN Inpatient Documentation Entered On: 04/08/2022 12:06 EDT Performed On: 04/08/2022 11:30 EDT by Edwina Fraire [id number] Therapy WOCN Admission Date : Admit Date 04/08/2022 07:[address] : Diagnosis (11) Altered mental status Unspecified fall, initial encounter Altered mental status, unspecified Sepsis, unspecified organism Urinary tract infection, site not specified Acute kidney failure, unspecified Hyperkalemia Acute pancreatitis without necrosis or infection, unspecified Acidosis Sepsis, unspecified organism Sepsis, unspecified organism Reason for WOCN Visit : Initial consult Admitting Diagnosis ST : Reason for Admission sepsis, UTI, ARF, hyperkalemia, pancreatitis, meta WOCN Assessment Summary : Wound care team consulted to place NPWT to left trochanter. Patient has NPWT home vac in place at this time patient is unstable and wound care pipe or steam fitter furnace installer is not able to [facility] patient at this time. Bedside nurse will call when patient is stable. Edwina Fraire, [id number] Therapy - 04/08/2022 12:04 EDT documented in this encounter Plan of Treatment Not on file documented as of this encounter Visit Diagnoses Not on filedocumented in this encounter
--- OUTSIDE RECORDS SUMMARY | 2025-02-21 13:44 | XMS_ITS | Encounter Summary ---
Author Organization [employer] Address [address] [place] [address] Care Team Providers Care Asset Recovery Specialist Name Role Phone Unavailable Primary Care Provider Unavailabl e Encounter Details Date Type Department Care Team (Late st Contact Info) Description 04/08/2022 Transcribed Document [facility] [place] [address] [place] [address] ProviderFlorentino MD [address] [place], [place] [id number] Social History Tobacco Use Types Packs/Day Years Used Date Smoking Tobacco: Never Assessed Comments Unknown Sex and Gender Information Value Date Recorded Sex Assigned at Not on file Legal Sex Female 1:44 PM CDT Gender Identity Not on file Sexual Orientation Not on file documented as of this encounter Miscellaneous Notes * Cerner Conversion Note - Florentino ProviderMD - 04/08/2022 5:58 AM CDT Broset Violence Assessment Entered On: 04/08/2022 6:48 EDT Performed On: 04/08/2022 6:48 EDT by Alma Shore Rn Broset Violence Assessment Broset Violence Checklist of Symptoms : None Broset Violence Symptoms Subtotal : 0 Broset Violence Symptoms Indicator : Low risk (0) Alma Shore Rn - 04/08/2022 6:48 EDT documented in this encounter Plan of Treatment Not on file documented as of this encounter Visit Diagnoses Not on filedocumented in this encounter
--- OUTSIDE RECORDS SUMMARY | 2025-02-21 13:44 | XMS_ITS | Encounter Summary ---
Author Organization [employer] Address [address] [place] [address] Care Team Providers Care Material Reclaimer Name Role Phone Unavailable Primary Care Provider Unavailabl e Encounter Details Date Type Department Care Team (Late st Contact Info) Description 04/08/2022 Transcribed Document [facility] [place] [address] [place] [address] ProviderFlorentino MD [address] [place] [address] Social History Tobacco Use Types Packs/Day Years Used Date Smoking Tobacco: Never Assessed Comments Unknown Sex and Gender Information Value Date Recorded Sex Assigned at Not on file Legal Sex Female 1:44 PM CDT Gender Identity Not on file Sexual Orientation Not on file documented as of this encounter Miscellaneous Notes * Cerner Conversion Note - Florentino ProviderMD - 04/08/2022 9:39 AM CDT Consult Phone Call Documentation Entered On: 04/08/2022 9:39 EDT Performed On: 04/08/2022 9:39 EDT by Rich Frazier PATIENT TELECOMMUNICATIONS LINE INSTALLER-EMERGENCY Phone Call for Consults Consult Phone Call/Page Attempt : First call Consult Reason : sepsis Provider Service Notified Name : Other: ifd Consult, Additional Information : called no answer Rich Frazier PATIENT TELECOMMUNICATIONS LINE INSTALLER-EMERGENCY - 04/08/2022 9:39 EDT Electronically signed by Bruce Shell Conversion Marine Service Station Attendant Cerner at 12/21/2022 4:59 PM CDT documented in this encounter Plan of Treatment Not on file documented as of this encounter Visit Diagnoses Not on filedocumented in this encounter
--- OUTSIDE RECORDS SUMMARY | 2025-02-21 13:44 | XMS_ITS | Encounter Summary ---
Author Organization [employer] Address [address] [place] [address] Care Team Providers Care Candy Cutter Machine Name Role Phone Unavailable Primary Care Provider Unavailabl e Encounter Details Date Type Department Care Team (Late st Contact Info) Description 04/12/2022 Transcribed Document [facility] [place] Family Medicine [facility] [address] ProviderFlorentino MD [address] [place] [address] Social History Tobacco Use Types Packs/Day Years Used Date Smoking Tobacco: Never Assessed Comments Unknown Sex and Gender Information Value Date Recorded Sex Assigned at Not on file Legal Sex Female 1:44 PM CDT Gender Identity Not on file Sexual Orientation Not on file documented as of this encounter Miscellaneous Notes * Cerner Conversion Note - Florentino Lynne MD - 04/12/2022 9:39 AM CDT Patient: ALYSSA AZUL Age: 61 years Sex: Female : 1960 Associated Diagnoses: None Author: JOSE BUCKLEY APRN Referring physician: Dr. Weiss Reason for consult: Critical care management CC: Unable to obtain Basic Information HPI: The patient is a 61 year old female with past medical history significant for paraplegia, CKD, DM, HTN, and multiple recent hospitalizations, who presented to our faciltiy on 04/08 with chief complaints of increasing confusion [facility]. Per documentation, the patient is a [...] She [facility]. On [facility], pulmonary is being asked [...] feeds via corpak. BM yesterday X 3 ICU day: 5 Vent day:3 Central line: 04/08 Review of [...] - WHITE 5,000 mL: 1,000 mL/Hr, Miscellaneous Tylenol: 650 mg, Oral, Q6H, PRN: Temperature Zofran: 4 mg, IV Push, Q6H, PRN: Nausea Zyvox: 600 mg, 300 mL, 300 mL/Hr, IV Piggyback, [id number] calcium gluconate: 1 Gram, 100 mL, 100 mL/Hr, IV Piggyback, Q1H, PRN: Other (See Comment) calcium gluconate: 2 Gram, 100 mL, 100 mL/Hr, IV Piggyback, Q1H, PRN: Other (See Comment) ferrous sulfate: 325 mg, Feeding Tube, BID [...] mL: 500 mg, 16.67 mL/Hr, IV Piggyback, [id number] micafungin: 100 mg, 100 mL/Hr, IV Piggyback, [id number] phenylephrine injection 80 mg + NaCl 0.9% [...] Tab, Oral, At Bedtime, 0 Refill(s), Medications (31) Active Scheduled: (10) famotidine 20 mg/2 mL [...] *PREMIX* 600 mg 300 mL, IV Piggyback, [id number] meropenem + NaCl 0.9% 50 mL 500 mg, IV Piggyback, [id number] micafungin sodium 100 mg, IV Piggyback, M60QWho miconazole nitrate 2% pwd 85 g 1 [...] 100 mL, IntraVENous, 4.5 mL/Hr PRN: (15) acetaminophen 325 mg tab 650 mg 2 Tab, Oral, Q6H calcium gluconate 2 Gram 100 mL, IV [...] 2 Gram 50 mL, IV Piggyback, Q1H ondansetron 4 mg/2 mL inj 4 mg 2 mL, IV Push, Q6H potassium chloride 10 mEq 50 mL, IV Piggyback, Q30Min sodium phosphate 20 mMole 6.67 mL, IV Piggyback, Q6H sodium phosphate + NaCl 0.9% 250 mL 10 mMole 3.33 mL, IV Piggyback, Q3H Problem list: All Problems Chronic kidney disease (CKD), stage III (moderate) / SNOMED CT 8629289221 / Confirmed Diabetes / SNOMED CT 868354011 / Confirmed History of obstructive sleep apnea / IMO [id number] / Confirmed Hyperlipidemia / SNOMED CT 70886310 / Confirmed Hypertension / SNOMED CT 0202623891 / Confirmed Paraplegia / SNOMED CT 589958411 / Confirmed Canceled: Diabetes / SNOMED CT 178711594 Canceled: Type 1 diabetes with stage 3 chronic kidney disease moderate GFR 30-59 / SNOMED CT 012750712, Active Problems (6) Chronic kidney disease (CKD), stage III (moderate) Diabetes History of obstructive sleep apnea Hyperlipidemia Hypertension Paraplegia Physical Examination VS/Measurements Vitals Signs (last 24 hrs) Last Charted Minimum Maximum Temp 98.1 (APR 12 08:00) 98.1 (APR 12 08:00) H 100.5 (APR 11 20:00) Mon HR 53 (APR 12 08:00) 45 (APR 11 11:15) 64 (APR 11 18:00) Resp Rate 19 (APR 12 08:00) L 13 (APR 11 15:30) H 49 (APR 11 18:00) SBP H 179 (APR 12 08:00) 94 (APR 11 11:45) H 179 (APR 12 08:00) DBP 73 (APR 12 08:00) L 50 (APR 11 11:45) 81 (APR 12 04:00) MAP 94 (APR 12 08:00) 59 (APR 11 10:30) 135 (APR 12 03:00) SpO2 100 (APR 12 08:00) L 91 (APR 11 22:00) 100 (APR 11 09:42) General: On 2L NC, follows commands, (paraplegic). Very pleasant and converses [...] review: Labs (Last four charted values) WBC 7.3 (APR 12) 8.2 (APR 11) 10.0 (APR 11) H 16.6 (APR 10) HB L 7.1 (APR 12) L 7.0 (APR 11) L 6.4 (APR 11) L 7.2 (APR 10) HCT L 21.8 (APR 12) L 21.4 (APR 11) L 19.7 (APR 11) L 21.5 (APR 10) Plt L 113 (APR 12) L 111 (APR 11) L 131 (APR 11) 172 (APR 10) Na 136 (APR 12) 136 (APR 12) L 135 (APR 11) L 135 (APR 11) K 3.9 (APR 12) 3.8 (APR 12) 3.9 (APR 11) 4.0 (APR 11) Cl 106 (APR 12) 107 (APR 12) 105 (APR 11) 107 (APR 11) CO2 23 (APR 12) 23 (APR 12) 22 (APR 11) L 20 (APR 11) BUN 15 (APR 12) 13 (APR 12) 7 (APR 11) 7 (APR 11) Cr H 1.30 (APR 12) H 1.10 (APR 12) 0.60 (APR 11) 0.60 (APR 11) Glu R H 245 (APR 12) H 186 (APR 12) H 148 (APR 11) H 139 (APR 11) Ca L 8.2 (APR 12) L 7.8 (APR 12) L 7.8 (APR 11) L 7.4 (APR 11) Lactic 0.7 (APR 12) 0.6 (APR 10) 1.3 (APR 10) 1.2 (APR 09) PT 11.1 (APR 09) 10.5 (APR 08) INR 1.0 (APR 09) 1.0 (APR 08) AST 20 (APR 12) 26 (APR 11) 25 (APR 10) 25 (APR 08) ALT 18 (APR 12) 18 (APR 11) 17 (APR 10) 18 (APR 08) ALK P 66 (APR 12) 71 (APR 11) 81 (APR 10) 81 (APR 08) T Bili 0.4 (APR 12) 0.6 (APR 11) 0.5 (APR 10) 0.6 (APR 08) PTN L 5.6 (APR 12) L 5.9 (APR 11) L 6.0 (APR 10) 6.4 (APR 08) ALB L 2.3 (APR 12) L 2.2 (APR 12) L 2.3 (APR 11) L 2.1 (APR 11) Lipase H 919 (APR 11) H 638 (APR 10) H 1965 (APR 09) H 1603 (APR 08) . APR 08 13:20 H 147 H 115 C 82 / H 295 H 5.8 L 5 H 5.40 \ APR 12 04:30 \ L 7.1 / 7.3 L 113 / L 21.8 \ Blood Gases (Current Encounter/Past 24 Hours) No Blood Gas Results Found (Past 24 Hours) Radiology Results (Last 48 hours) [id number] -- 04/08/2022 07:53 CR Abdomen 1 Vw Portable (04/10/2022 17:13) [...] encephalopathy-improving. Plan Extubated on 04/10, Currently on 2L NC, 97% NIPPV at HS Hemodynamics: On levo only for MAP > 65. ---weaned off, now hypertensive ADD home dose Bisoprolol 5mg Daily Antibiotics per ID: Merrem, Zyvox, and Micafungin Fludro/Hydrocortisone X 7 days--stopped yesterday 04/11 Pneumonia PCR negative Sputum culture pending-unable to collect MRSA negative, ? stop Zyvox Blood cultures--NGTD Urine culture +GNR Wound culture +GNR Nephrology following On CRRT --stopped on 04/11; Will assess daily Nutrition: Currently NPO, start TF @40mL/hr via NG, post-pyloric and advance as tolerated Replace electrolytes as needed Monitor hemoglobin. Transfuse for hemoglobin <7.0. --S/P 1 unit PRBC on 04/11--- Guiac stool with next BM ADD Lactobacillus Glycemic control: on insulin gtt. Glucose 140-180 mg/dL, off insulin gtt. Start Lantus 10units BID and SSI Prophylaxis: Pepcid, Heparin SQ PT/OT to see Speech evaluation--plans for FEES on Thursday labs and imaging documented in this encounter Plan of Treatment Not on file documented as of this encounter Visit Diagnoses Not on filedocumented in this encounter
--- OUTSIDE RECORDS SUMMARY | 2025-02-21 13:44 | XMS_ITS | Encounter Summary ---
Author Organization [employer] Address [address] [place] [address] Care Team Providers Care Emt Dispatcher Name Role Phone Unavailable Primary Care Provider Unavailabl e Encounter Details Date Type Department Care Team (Late st Contact Info) Description 03/20/[address] [facility] [place] [address] [place] [address] ProviderFlorentino MD [address] [place] [address] Social History Tobacco Use Types Packs/Day Years Used Date Smoking Tobacco: Never Assessed Comments Unknown Sex and Gender Information Value Date Recorded Sex Assigned at Not on file Legal Sex Female 1:44 PM CDT Gender Identity Not on file Sexual Orientation Not on file documented as of this encounter Miscellaneous Notes * Cerner Conversion Note - Historical ProviderMD - 03/20/2022 2:55 PM CDT Attempt to Treat, OT Entered On: 03/20/2022 15:31 EDT Performed On: 03/20/2022 14:55 EDT by ASIA ROCA OTR/[place] Attempt to Treat Unable to Treat Due To : Patient Unavailable Inability to Treat Comment : Client currently receiving bed bath by nursing. Will follow-up as schedule allows. ASIA ROCA OTR/L - 03/20/2022 15:30 EDT documented in this encounter Plan of Treatment Not on file documented as of this encounter Visit Diagnoses Not on filedocumented in this encounter
--- OUTSIDE RECORDS SUMMARY | 2025-02-21 13:44 | XMS_ITS | Encounter Summary ---
Author Organization [employer] [facility] [employer] Address [address] [place] [address] Care Team Providers Care Invoice Coder Name Role Phone Unavailable Primary Care Provider Unavailabl e Encounter Details Date Type Department Care Team (Late st Contact Info) Description 04/13/2022 Transcribed Document [facility] [place] Family Medicine [address] [place] [address] ProviderFlorentino MD [address] [place] [address] Social History Tobacco Use Types Packs/Day Years Used Date Smoking Tobacco: Never Assessed Comments Unknown Sex and Gender Information Value Date Recorded Sex Assigned at Not on file Legal Sex Female 1:44 PM CDT Gender Identity Not on file Sexual Orientation Not on file documented as of this encounter Miscellaneous Notes * Cerner Conversion Note - Florentino Lynne MD - 04/13/2022 11:26 AM CDT Patient: ALYSSA AZUL Age: 61 years Sex: Female : 1960 Associated Diagnoses: None Author: VINNIE SWEENEY MD Subjective Seen and examined at bedside. Feeling much better. Denies chest pain or shortness of breath. Off pressors. CRRT off since 04/11. UOP improving.. Monitor for renal recovery. No acute need for dialysis today.. Health Status Allergies: Allergic Reactions (Selected) No [...] mg, 300 mL, 300 mL/Hr, IV Piggyback, [id number] calcium gluconate: 1 Gram, 100 mL, 100 [...] insulin glargine: 20 Units, SubCutaneous, BID insulin glargine: 8 Units, SubCutaneous, 1-Time insulin regular sliding scale: Scale C, SubCutaneous, Q6H lactobacillus acidophilus: 1 Cap, Oral, BID meropenem + Sodium Chloride 0.9% intravenous solution 50 mL: 500 mg, 16.67 mL/Hr, IV Piggyback, [id number] micafungin: 100 mg, 100 mL/Hr, IV Piggyback, [id number] phenylephrine injection 80 mg + NaCl 0.9% [...] At Bedtime , Medications (28) Active Scheduled: (12) amLODIPine 5 [...] 20 Units 0.2 mL, SubCutaneous, BID insulin glargine 1 unit/0.01 mL inj 8 Units 0.08 mL, SubCutaneous, 1-Time insulin regular 1 unit/0.01 mL inj 3mL Scale C, SubCutaneous, Q6H lactobacillus acidophilus cap 1 Cap, Oral, BID linezolid *PREMIX* 600 mg 300 mL, IV Piggyback, [id number] meropenem + NaCl 0.9% 50 mL 500 mg, IV Piggyback, [id number] micafungin sodium 100 mg, IV Piggyback, [id number] miconazole nitrate 2% pwd 85 g 1 [...] History of obstructive sleep apnea / IMO [id number] / Confirmed Diabetes / SNOMED CT [id number] / Confirmed, Active Problems (6) Chronic kidney disease (CKD), stage III (moderate) Diabetes History of obstructive sleep apnea Hyperlipidemia Hypertension Paraplegia Objective VS/Measurements Vital Signs/Vital Measures 04/13/2022 11:01 EDT Heart Rate Monitored 64 bpm Respiratory Rate 35 Breaths/Min HI Oxygen Saturation 94 % Oxygen Therapy Mode Room air 04/13/2022 9:00 EDT Systolic Blood Pressure 87 mmHg LOW Diastolic Blood Pressure 52 mmHg LOW Mean Arterial Pressure (MAP)-BMDI 65 Heart Rate Monitored 61 bpm Respiratory Rate 22 Breaths/Min HI Oxygen Saturation 95 % 04/13/2022 8:00 EDT Systolic Blood Pressure 91 mmHg Diastolic Blood Pressure 55 mmHg LOW Mean Arterial Pressure (MAP)-BMDI 69 Heart Rate Monitored 61 bpm Respiratory Rate [...] Oxygen Therapy Mode BiPAP FiO2 30 % 04/12/2022 23:00 EDT Systolic Blood Pressure 157 mmHg HI Diastolic Blood Pressure 69 mmHg Mean Arterial Pressure (MAP)-BMDI 99 Heart Rate Monitored 72 bpm Respiratory Rate 24 Breaths/Min HI Oxygen Saturation 97 % 04/12/2022 22:00 EDT Systolic Blood Pressure 152 mmHg HI Diastolic Blood Pressure 94 mmHg HI Mean Arterial Pressure (MAP)-BMDI 117 Heart Rate Monitored 73 bpm Respiratory Rate 23 Breaths/Min HI Oxygen Saturation 97 % 04/12/2022 21:00 EDT Systolic Blood Pressure 145 mmHg HI Diastolic Blood Pressure 66 mmHg Mean Arterial Pressure (MAP)-BMDI 95 Heart Rate Monitored 65 bpm Respiratory Rate 28 Breaths/Min HI Oxygen Saturation 98 % 04/12/2022 20:00 EDT Systolic Blood Pressure 155 mmHg HI Diastolic Blood Pressure 74 mmHg Mean Arterial Pressure (MAP)-BMDI 106 Temperature Source Oral Temperature Mode Fahrenheit Temperature, Fahrenheit 97.8 Deg F Clinical Temperature, C 36.6 Deg C Heart Rate Monitored 69 bpm Respiratory Rate 24 Breaths/Min HI Oxygen Saturation 97 % Oxygen Therapy Mode Nasal cannula Oxygen Flow Rate 2 Liter/Min 04/12/2022 19:00 EDT Systolic Blood Pressure 136 mmHg Diastolic Blood Pressure 65 mmHg Mean Arterial Pressure (MAP)-BMDI 93 Heart Rate Monitored 62 bpm Respiratory Rate 25 Breaths/Min HI Oxygen Saturation 98 % 04/12/2022 18:00 EDT Systolic Blood Pressure 153 mmHg HI Diastolic Blood Pressure 67 mmHg Mean Arterial Pressure (MAP)-BMDI 97 Heart Rate Monitored 55 bpm LOW Respiratory Rate 25 Breaths/Min HI Oxygen Saturation 100 % Oxygen Therapy Mode Nasal cannula Oxygen Flow Rate 2 Liter/Min 04/12/2022 17:00 EDT Systolic Blood Pressure 129 mmHg Diastolic Blood Pressure 60 mmHg Mean Arterial Pressure (MAP)-BMDI 86 Heart Rate Monitored 59 bpm LOW Respiratory Rate 33 Breaths/Min HI Oxygen Saturation 99 % 04/12/2022 16:00 EDT Systolic Blood Pressure 136 mmHg Diastolic Blood Pressure 68 mmHg Mean Arterial Pressure (MAP)-BMDI 96 Temperature Source Oral Temperature Mode Fahrenheit Temperature, Fahrenheit 98.0 Deg F Clinical Temperature, C 36.7 Deg C Heart Rate Monitored 66 bpm Respiratory Rate 31 Breaths/Min HI Oxygen Saturation 98 % Oxygen Therapy Mode Nasal cannula Oxygen Flow Rate 2 Liter/Min 04/12/2022 15:00 EDT Systolic Blood Pressure 142 mmHg HI Diastolic Blood Pressure 65 mmHg Mean Arterial Pressure (MAP)-BMDI 94 Heart Rate Monitored 63 bpm Respiratory Rate 30 Breaths/Min HI Oxygen Saturation 98 % 04/12/2022 14:00 EDT Systolic Blood Pressure 155 mmHg HI Diastolic Blood Pressure 66 mmHg Mean Arterial Pressure (MAP)-BMDI 95 Heart Rate Monitored 62 bpm Respiratory Rate 45 Breaths/Min HI Oxygen Saturation 98 % Oxygen Therapy Mode Nasal cannula Oxygen Flow Rate 2 Liter/Min 04/12/2022 13:00 EDT Systolic Blood Pressure 155 mmHg HI Diastolic Blood Pressure 81 mmHg Mean Arterial Pressure (MAP)-BMDI 112 Heart Rate Monitored 59 bpm LOW Respiratory Rate 29 Breaths/Min HI Oxygen Saturation 91 % LOW 04/12/2022 12:00 EDT Systolic Blood Pressure 161 mmHg HI Diastolic Blood Pressure 68 mmHg Mean Arterial Pressure (MAP)-BMDI 98 Temperature Source Oral Temperature Mode Fahrenheit Temperature, Fahrenheit 98.8 Deg F Clinical Temperature, C 37.1 Deg C Heart Rate Monitored 64 bpm Respiratory Rate 56 Breaths/Min HI Oxygen Saturation 94 % Oxygen Therapy Mode Nasal cannula Oxygen Flow Rate 2 Liter/Min 04/12/2022 11:06 EDT Heart Rate Monitored 53 bpm LOW 04/12/2022 11:00 EDT Systolic Blood Pressure 150 mmHg HI Diastolic Blood Pressure 69 mmHg Mean Arterial Pressure (MAP)-BMDI 99 Respiratory Rate 25 Breaths/Min HI Oxygen Saturation 100 % 04/12/2022 10:00 EDT Systolic Blood Pressure 140 mmHg Diastolic Blood Pressure 64 mmHg Mean Arterial Pressure (MAP)-BMDI 92 Heart Rate Monitored 57 bpm LOW Respiratory Rate 21 Breaths/Min HI Oxygen Saturation 99 % Oxygen Therapy Mode Nasal cannula Oxygen Flow Rate 2 Liter/Min 04/12/2022 9:00 EDT Systolic Blood Pressure 141 mmHg HI Diastolic Blood Pressure 71 mmHg Mean Arterial Pressure (MAP)-BMDI 99 Heart Rate Monitored 58 bpm LOW Respiratory Rate 24 Breaths/Min HI Oxygen Saturation 93 % LOW 04/12/2022 8:00 EDT Systolic Blood Pressure 179 mmHg HI Diastolic Blood Pressure 73 mmHg Mean Arterial Pressure (MAP)-BMDI 105 Systolic BP, Arterial Line 1 164 mmHg HI Diastolic BP, Arterial Line 1 58 mmHg LOW Mean Arterial Pressure, Line 1 94 mmHg Temperature Source Oral Temperature Mode Fahrenheit Temperature, Fahrenheit 98.1 Deg F Clinical Temperature, C 36.7 Deg C Heart Rate Monitored 53 bpm LOW Respiratory Rate 19 Breaths/Min Oxygen Saturation 100 % Oxygen Therapy Mode Nasal cannula Oxygen Flow Rate 2 Liter/Min 04/12/2022 7:42 EDT Heart Rate Monitored 50 bpm LOW Respiratory Rate 19 Breaths/Min Oxygen Saturation 100 % Oxygen Therapy Mode Nasal cannula Oxygen Flow Rate 2 Liter/Min 04/12/2022 7:00 EDT Systolic Blood Pressure 145 mmHg HI Diastolic Blood Pressure 67 mmHg Mean Arterial Pressure (MAP)-BMDI 97 Systolic BP, Arterial Line 1 103 mmHg Diastolic BP, Arterial Line 1 58 mmHg LOW Mean Arterial Pressure, Line 1 76 mmHg 04/12/2022 6:00 EDT Systolic Blood Pressure 145 mmHg HI Diastolic Blood Pressure 65 mmHg Mean Arterial Pressure (MAP)-BMDI 94 Systolic BP, Arterial Line 1 106 mmHg Diastolic BP, Arterial Line 1 57 mmHg LOW Mean Arterial Pressure, Line 1 76 mmHg Heart Rate Monitored 49 bpm LOW Respiratory Rate 22 Breaths/Min HI Oxygen Saturation 100 % 04/12/2022 5:00 EDT Systolic Blood Pressure 150 mmHg HI Diastolic Blood Pressure 70 mmHg Mean Arterial Pressure (MAP)-BMDI 100 Systolic BP, Arterial Line 1 126 mmHg Diastolic BP, Arterial Line 1 59 mmHg LOW Mean Arterial Pressure, Line 1 82 mmHg Heart Rate Monitored 52 bpm LOW Respiratory Rate 26 Breaths/Min HI Oxygen Saturation 99 % 04/12/2022 4:00 EDT Systolic Blood Pressure 152 mmHg HI Diastolic Blood Pressure 81 mmHg Mean Arterial Pressure (MAP)-BMDI 111 Systolic BP, Arterial Line 1 118 mmHg Diastolic BP, Arterial Line 1 109 mmHg HI Mean Arterial Pressure, Line 1 115 mmHg Temperature Source Oral Temperature Mode Fahrenheit Temperature, Fahrenheit 98.3 Deg F Clinical Temperature, C 36.8 Deg C Heart Rate Monitored 47 bpm LOW Respiratory Rate 18 Breaths/Min Oxygen Saturation 100 % 04/12/2022 3:26 EDT Heart Rate Monitored 50 bpm LOW Respiratory Rate 16 Breaths/Min Oxygen Saturation 100 % Oxygen Therapy Mode BiPAP FiO2 30 % 04/12/2022 3:00 EDT Systolic Blood Pressure 175 mmHg HI Diastolic Blood Pressure 72 mmHg Mean Arterial Pressure (MAP)-BMDI 103 Systolic BP, Arterial Line 1 141 mmHg HI Diastolic BP, Arterial Line 1 128 mmHg HI Mean Arterial Pressure, Line 1 135 mmHg 04/12/2022 2:00 EDT Systolic Blood Pressure 117 mmHg Diastolic Blood Pressure 55 mmHg LOW Mean Arterial Pressure (MAP)-BMDI 79 Systolic BP, Arterial Line 1 133 mmHg Diastolic BP, Arterial Line 1 61 mmHg Mean Arterial Pressure, Line 1 86 mmHg Heart Rate Monitored 54 bpm LOW Respiratory Rate 19 Breaths/Min Oxygen Saturation 100 % 04/12/2022 1:00 EDT Systolic Blood Pressure 108 mmHg Diastolic Blood Pressure 54 mmHg LOW Mean Arterial Pressure (MAP)-BMDI 78 Systolic BP, Arterial Line 1 115 mmHg Diastolic BP, Arterial Line 1 48 mmHg LOW Mean Arterial Pressure, Line 1 68 mmHg Heart Rate Monitored 59 bpm LOW Respiratory Rate 23 Breaths/Min HI Oxygen Saturation 100 % 04/12/2022 0:00 EDT Systolic Blood Pressure 103 mmHg Diastolic Blood Pressure 55 mmHg LOW Mean Arterial Pressure (MAP)-BMDI 76 Systolic BP, Arterial Line 1 108 mmHg Diastolic BP, Arterial Line 1 48 mmHg LOW Mean Arterial Pressure, Line 1 67 mmHg Temperature Source Oral Temperature Mode Fahrenheit Temperature, Fahrenheit 99 Deg F Clinical Temperature, C 37.2 Deg C Heart Rate Monitored 55 bpm LOW Respiratory Rate 19 Breaths/Min Oxygen Saturation 99 % , Measurements from flowsheet : Measurements 04/13/2022 5:00 EDT Height Source Estimated Height Entry Format Tarrant Height/Length, MAURITANIAN (ft) 5 ft Height/Length MAURITANIAN 6 Inch CLINICALHEIGHT 167.64 cm Routine Weight Source Bed scale Routine Weight Entry Format Metric Routine Weight, Kilograms 84.6 kg Routine Weight Calculation 84.6 kg Body Mass Index (BMI), Routine 30.1 kg/m2 Body Surface Area (BSA), Routine 1.94 m2 04/12/2022 5:00 EDT Height Source Estimated Height Entry Format Tarrant Height/Length, MAURITANIAN (ft) 5 ft Height/Length MAURITANIAN 6 Inch CLINICALHEIGHT 167.64 cm Routine Weight Source Bed scale Routine Weight Entry Format Metric Routine Weight, Kilograms 84.3 kg Routine Weight Calculation 84.3 kg Body Mass Index (BMI), Routine 30 kg/m2 Body Surface Area (BSA), Routine 1.94 m2 , Vitals Signs (last 24 hrs) Last Charted Minimum Maximum Temp 98.3 (APR 13 04:00) 97.8 (APR 12 20:00) 98.8 (APR 12 12:00) Mon HR 64 (APR 13 11:01) 55 (APR 12 18:00) 73 (APR 12 22:00) Resp Rate H 35 (APR 13 11:01) L 10 (APR 13 08:00) H 56 (APR 12 12:00) SBP L 87 (APR 13 09:00) L 87 (APR 13 09:00) H 161 (APR 12 12:00) DBP L 52 (APR 13 09:00) L 52 (APR 13 01:00) H 94 (APR 12 22:00) MAP 65 (APR 13 09:00) 65 (APR 13 09:00) 117 (APR 12 22:00) SpO2 94 (APR 13 11:01) L 90 (APR 13 08:00) 100 (APR 12 18:00) Intake & Output Totals Last 24 Hours (7a-7a) Intake (53 Events) Medications (1012.84 mL) Enteral Additional Water Given (220 mL) Enteral Feeding Amount (950 mL) Output (5 Events) Valenzuela Catheter (1305 mL) Input Total: 2182.84 mL Output Total: 1305 mL Balance: 877.84 mL General: Alert and oriented. HENT: Normocephalic, Atraumatic . Neck: Supple, Non-tender, No jugular venous distention. Respiratory: Symmetrical chest wall expansion, Clear to auscultation . Cardiovascular: Normal rate, Trace edema. Gastrointestinal: Soft, Non-tender, Non-distended. Genitourinary: + Urostomy. . Integumentary: Warm, Dry, [place]. Neurologic: Alert, Oriented. Results Review Labs (Last four charted values) WBC 8.4 (APR 13) 7.3 (APR 12) 8.2 (APR 11) 10.0 (APR 11) HB L 7.4 (APR 13) L 7.1 (APR 12) L 7.0 (APR 11) L 6.4 (APR 11) HCT L 22.4 (APR 13) L 21.8 (APR 12) L 21.4 (APR 11) L 19.7 (APR 11) Plt L 106 (APR 13) L 113 (APR 12) L 111 (APR 11) L 131 (APR 11) Na 137 (APR 13) 136 (APR 12) 136 (APR 12) L 135 (APR 11) K L 3.1 (APR 13) 3.9 (APR 12) 3.8 (APR 12) 3.9 (APR 11) Cl 107 (APR 13) 106 (APR 12) 107 (APR 12) 105 (APR 11) CO2 26 (APR 13) 23 (APR 12) 23 (APR 12) 22 [...] 11) 0.5 (APR 10) PTN L 5.3 (APR 13) L 5.6 (APR [...] chronic hydro; no need for intervention] Plan: - Urine output improved; Cr up to 1.7 mg/dl (baseline Cr 1.6 mg/dl) ; Encourage oral hydration. Monitor for renal recovery. No need for dialysis today.. - Hypokalemia: supplemented - please supplement as [...]
--- OUTSIDE RECORDS SUMMARY | 2025-02-21 13:44 | XMS_ITS | Encounter Summary ---
Author Organization [facility] [employer] Address [address] [place] [address] Care Team Providers Care Legal File Clerk Name Role Phone Unavailable Primary Care Provider Unavailabl e Encounter Details Date Type Department Care Team (Late st Contact Info) Description 04/12/2022 Transcribed Document [facility] [place] [address] [place] [address] ProviderFlorentino MD [address] [place], [place] [id number] Social History Tobacco Use Types Packs/Day Years Used Date Smoking Tobacco: Never Assessed Comments Unknown Sex and Gender Information Value Date Recorded Sex Assigned at Not on file Legal Sex Female 1:44 PM CDT Gender Identity Not on file Sexual Orientation Not on file documented as of this encounter Miscellaneous Notes * Cerner Conversion Note - Historical ProviderMD - 04/12/2022 5:38 PM CDT Spiritual Care Short Form Entered On: 04/12/2022 17:39 EDT Performed On: 04/12/2022 17:38 EDT by Armando Wills Chaplain-Non Cert General Information, Spiritual Care Spiritual Care Referred by : Family Reason for Visit : Initial Ministry Provided to : Patient, Family/Significant other Intervention/Comment/Summary Points : Provided Advanced Directive consult at family request. Pt decided she does not need one at this time. Spiritual/Emotional Acuity : Low Armando Wills Chaplain-Non Cert - 04/12/2022 17:38 EDT documented in this encounter Plan of Treatment Not on file documented as of this encounter Visit Diagnoses Not on filedocumented in this encounter
--- OUTSIDE RECORDS SUMMARY | 2025-02-21 13:44 | XMS_ITS | Encounter Summary ---
Author Organization [employer] [employer] Address [address] [place] [address] Care Team Providers Care Drive Worker Name Role Phone Unavailable Primary Care Provider Unavailabl e Encounter Details Date Type Department Care Team (Late st Contact Info) Description 03/21/2022 Transcribed Document [facility] [place] [facility] [place] [address] ProviderFlorentino MD [facility] [place] [address] Social History Tobacco Use Types Packs/Day Years Used Date Smoking Tobacco: Never Assessed Comments Unknown Sex and Gender Information Value Date Recorded Sex Assigned at Not on file Legal Sex Female 1:44 PM CDT Gender Identity Not on file Sexual Orientation Not on file documented as of this encounter Miscellaneous Notes * Cerner Conversion Note - Florentino ProviderMD - 03/21/2022 6:58 AM CDT Discharge Summary, PT Entered On: 03/21/2022 6:59 EDT Performed On: 03/21/2022 6:58 EDT by ALTHEA AZEVEDO, PT Discharge Summary Reason for Discharge : Discharged from hospital Discharged to, Therapy : Unit, prison Discharge Summary Comment, PT : As of 03/20: ed Roll Left : Rehab Modified independence Bed Roll Right : Rehab Modified independence Bed Scooting : Rehab Modified independence Supine to Sit : Rehab Modified independence Sit to Supine : Rehab Modified independence Bed Mobility Scooting Device : Rails Supine to Sit Device : Rails Sit to Supine Devices : Rails Gait Training/Assessment, PT Gait Assistance Level : Unable to assess/activity not appropriate Walking Distance : Pt is a paraplegic 1LTG not met due to patient still requiring assistance with mobility. ALTHEA AZEVEDO, PT - 03/21/2022 6:58 EDT Short Term Goals Mobility/Bed Mobility STG PT Grid Goal #1 Goal #2 Activity : Supine to sit Assist : Assist, moderate Equipment : Bed, hospital Date to Meet : 03/16/2022 EDT Goal Status : Goal met Date Met : 03/17/2022 EDT Comment : eob goal below ALTHEA AZEVEDO, PT - 03/21/2022 6:58 EDT ALTHEA AZEVEDO, PT - 03/21/2022 6:58 EDT BalanceSTG Grid Goal #1 Activity : Sitting, static Assist : Assist, minimal Date to Meet : 03/16/2022 EDT Goal Status : Goal met Date Met : 03/11/2022 EDT Comment : goal added 03/10 ALTHEA AZEVEDO, PT - 03/21/2022 6:58 EDT Prison Goals Mobility/Bed Mobility LTG PT Grid Goal #1 Goal #4 Activity : Supine to sit Assist : Assist, minimal Equipment : Bed, hospital Date to Meet : 03/23/2022 EDT Goal Status : Goal met Date Met : 03/17/2022 EDT Comment : see goals below ALTHEA AZEVEDO, PT - 03/21/2022 6:58 EDT ALTHEA AZEVEDO, PT - 03/21/2022 6:58 EDT Transfer LTG Grid Goal #1 Destination : Wheelchair, standard Type : Sliding board Cues : No cues Assist : Assist, maximal Equipment : Belt, gait, Other: slide board Date to Meet : 03/23/2022 EDT Goal Status : Not met ALTHEA AZEVEDO, PT - 03/21/2022 6:58 EDT BalanceLTG Grid Goal #1 Activity : Sitting, static Cues : No cues Assist : Independent, modified Date to Meet : 03/23/2022 EDT Goal Status : Goal met Date Met : 03/17/2022 EDT ALTHEA AZEVEDO, PT - 03/21/2022 6:58 EDT documented in this encounter Plan of Treatment Not on file documented as of this encounter Visit Diagnoses Not on filedocumented in this encounter
--- OUTSIDE RECORDS SUMMARY | 2025-02-21 13:44 | XMS_ITS | Encounter Summary ---
Author Organization [employer] [facility] [employer] Address [address] [place] [address] Care Team Providers Care Accordion Repairer Name Role Phone Unavailable Primary Care Provider Unavailabl e Encounter Details Date Type Department Care Team (Late st Contact Info) Description 03/27/2022 Transcribed Document [facility] [place] Family Medicine [facility] [place] [address] ProviderFlorentino MD [address] [place] [address] Social History Tobacco Use Types Packs/Day Years Used Date Smoking Tobacco: Never Assessed Comments Unknown Sex and Gender Information Value Date Recorded Sex Assigned at Not on file Legal Sex Female 1:44 PM CDT Gender Identity Not on file Sexual Orientation Not on file documented as of this encounter Miscellaneous Notes * Cerner Conversion Note - Florentino Lynne MD - 03/27/2022 2:15 PM CDT UM Authorization Entered On: 03/27/2022 14:16 EDT Performed On: 03/27/2022 14:15 EDT by SARAH MORALES RN Primary Insurance Authorization Authorization and Policy Numbers : Insurance 1 Health Plan: [facility] Policy Number: [id number] Authorization Number: Insurance Primary Name : [facility] Policy Number: [id number] Authorization Number: Authorization Status-Primary : Apprv contin stay Auth/Referral Contact Name-Primary : DC+ Reference Number-Primary : [id number] Number of Days Authorized-Primary : 18 Day(s) Authorized Service Begin Date-Primary : 03/01/2022 EDT Authorized Service End Date-Primary : 03/19/2022 EDT Authorization Comments-Primary : Per call to [facility] P2P line denial OT with p2p. All days are approved/covered. Historical Authorization Comments-Primary : Comment 1: Discharge summary faxed. (Mallory Sanchez, Candy Vendor 03/21/2022 10:51) Comment 2: Discussed with BARNEY Olivo and she stated facility that accepted patient has now declined patient. Informed Dr. Luzma Cabello of IP c/s denial. Awaiting if wants to attempt p2p. (SARAH MORALES RN 03/17/2022 14:18) Comment 3: Sent to Dr. Luzma cabello for p2p. (SARAH MORALES RN 03/17/2022 13:48) Comment 4: Partially approved per fax 03/14/22 @ 1021. Denied continued inpatient DOS forward. Placed in Denials 2021 folder. (Mallory Sanchez, Candy Vendor 03/14/2022 10:45) Comment 5: c/s auth req faxed via [employer] 03/12-03/13 (JOSEPH GUTIERREZ, [employer]IMO-UTILIZATION MANAGEMENT REVIEW NON-EXEMPT 03/13/2022 16:27) Comment 6: CLINICAL UPDATE FAXED VIA [employer] 03/05-03/10 ([address], PRIMO 03/10/2022 13:19) Comment 7: UPLOADED CLINICALS VIA [employer] AND FAXED TO [facility]/ AWAITING CALLBACK/ REFERENCE # LISTED ON FRONT PAGE. (Jelani Anne, loader malt house 03/04/2022 14:03) Comment 8: Authorized per fax 03/02/22 @ 1335. Approved DRG admission. Next reivew due 03/10. -Hannah Castillo. (Mallory Sanchez, Candy Vendor 03/04/2022 11:20) Comment 9: Rec vm from Hannah at [facility] on [id number] line on 03/02/22 at 8:42am She is req clinical be sent in Transf VM to [facility] so she could follow up (SHERIF LYNCH, Safe And Vault Installer 03/04/2022 09:42) Comment 10: auth # per star notes, faxed clinicals via [employer] 03/01 (JOSEPH GUTIERREZ, [employer]-UTILIZATION MANAGEMENT REVIEW NON-EXEMPT 03/02/2022 11:28) SARAH MORALES RN - 03/27/2022 14:15 EDT Electronically signed by Sumaya, [facility] Conversion [employer] Operator Cerner at 12/21/2022 5:05 PM CDT documented in this encounter Plan of Treatment Not on file documented as of this encounter Visit Diagnoses Not on filedocumented in this encounter
--- OUTSIDE RECORDS SUMMARY | 2025-02-21 13:44 | XMS_ITS | Encounter Summary ---
Author Organization [employer] Address [address] [place] [address] Care Team Providers Care Field Sales Representative Name Role Phone Unavailable Primary Care Provider Unavailabl e Encounter Details Date Type Department Care Team (Late st Contact Info) Description 04/12/2022 Transcribed Document [facility] [place] [address] [place] [address] ProviderFlorentino MD [address] [place] [address] Social History Tobacco Use Types Packs/Day Years Used Date Smoking Tobacco: Never Assessed Comments Unknown Sex and Gender Information Value Date Recorded Sex Assigned at Not on file Legal Sex Female 1:44 PM CDT Gender Identity Not on file Sexual Orientation Not on file documented as of this encounter Miscellaneous Notes * Cerner Conversion Note - Florentino Lynne MD - 04/12/2022 12:02 PM CDT Patient: ALYSSA AZUL Age: 61 years Sex: Female : 1960 Associated Diagnoses: None Author: HIGINIO AREVALO MD-INF Antibiotics: Zyvox, meropenem, micafungin. CC: Sacral wound Subjective: Tmax of 100.5. CRRT stopped last evening. She is feeling much better today. Family at bedside. Minimal sputum production with cough. Extubated day before yesterday. Objective: Vitals Signs (last 24 hrs) Last Charted Minimum Maximum Temp 98.1 (APR 12 08:00) 98.1 (APR 12 08:00) H 100.5 (APR 11 20:00) Mon HR 53 (APR 12 11:06) 46 (APR 11 12:30) 64 (APR 11 18:00) Resp Rate H 25 (APR 12 11:00) L 13 (APR 11 15:30) H 49 (APR 11 18:00) SBP H 150 (APR 12 11:00) 94 (APR 11 14:45) H 179 (APR 12 08:00) DBP 69 (APR 12 11:00) L 50 (APR 11:15) 81 (APR 12 04:00) MAP 99 (APR 12 11:00) 59 (APR 11 12:30) 135 (APR 12 03:00) SpO2 100 (APR 12 11:00) L 91 (APR 11 22:00) 100 (APR 11 12:15) T-max 96 PE: General: alert, oriented HEENT: sclera white [...] LABS: Labs (Last four charted values) WBC 7.3 [...] pending IMAGING: Radiology Results (Last 48 hours) [id number] -- 04/08/2022 07:53 CR Abdomen 1 Vw [...] kidney failure on reported CKD, unknown stage- 1.3, today - Acute encephalopathy -Neutrophilic leukocytosis, improved - Anemia - Chronic paraplegia - Obesity - DM2 - Thrombocytopenia, 113 today. continue to monitor \ Assessment: 61-year-old chronically ill long hospitalization with [...] extubated alert and oriented off CRRT off pressors RECOMMENDATIONS/PLANS: -Follow-up cultures, gram-negative rods in urine and wound culture at risk for multidrug-resistant organisms( Citrobacter, Ecoli, GNR, Dinora lusitaniae) -Continue Zyvox, meropenem, and micafungin, de-escalate once susceptibilities return -Monitor labs documented in this encounter Plan of Treatment Not on file documented as of this encounter Visit Diagnoses Not on filedocumented in this encounter
--- OUTSIDE RECORDS SUMMARY | 2025-02-21 13:44 | XMS_ITS | Encounter Summary ---
Author Organization [facility] [employer] Address [address] [place] [id number] Care Team Providers Care Quilt Maker Name Role Phone Unavailable Primary Care Provider Unavailabl e Encounter Details Date Type Department Care Team (Late st Contact Info) Description 03/09/2022 Transcribed Document [facility] [place] Family Medicine [address] [place] [address] ProviderFlorentino MD [address] [place] [address] Social History Tobacco Use Types Packs/Day Years Used Date Smoking Tobacco: Never Assessed Comments Unknown Sex and Gender Information Value Date Recorded Sex Assigned at Not on file Legal Sex Female 1:44 PM CDT Gender Identity Not on file Sexual Orientation Not on file documented as of this encounter Miscellaneous Notes * Cerner Conversion Note - Historical ProviderMD - 03/09/2022 2:00 AM CDT [employer] Details Entered On: 03/09/2022 4:38 EDT Performed On: 03/09/2022 2:00 EDT by TRINIDAD LANDIS, RN Order Details Transport Mode Order Detail : Bed (including specialty) Isolation Precautions Order Detail : Standard Precautions Order Detail : 0 Lift/Transfer : Maximal assist Central Line Order Detail : Yes Room Service : Not Appropriate Arterial Line : Yes Patient Needs Meds Crushed/Liquid : Yes Meds Administered Via Tube : Yes TRINIDAD LANDIS, RN - 03/09/2022 4:38 EDT documented in this encounter Plan of Treatment Not on file documented as of this encounter Visit Diagnoses Not on filedocumented in this encounter
--- OUTSIDE RECORDS SUMMARY | 2025-02-21 13:44 | XMS_ITS | Encounter Summary ---
Author Organization [facility] [employer] Address [address] [place] [address] Care Team Providers Care [employer] Professional Name Role Phone Unavailable Primary Care Provider Unavailabl e Encounter Details Date Type Department Care Team (Late st Contact Info) Description 04/12/2022 Transcribed Document [facility] [place] Family Medicine [address] [place] [address] ProviderFlorentino MD [address] [place] [address] Social History Tobacco Use Types Packs/Day Years Used Date Smoking Tobacco: Never Assessed Comments Unknown Sex and Gender Information Value Date Recorded Sex Assigned at Not on file Legal Sex Female 1:44 PM CDT Gender Identity Not on file Sexual Orientation Not on file documented as of this encounter Miscellaneous Notes * Cerner Conversion Note - Florentino ProviderMD - 04/12/2022 9:24 AM CDT Treatment Intervention, PT Entered On: 04/13/2022 11:12 EDT Performed On: 04/13/2022 11:11 EDT by DIVYA GOFF PT General Information, PT Visit Type, PT : Treatment Note Patient Orders : Order Date Order Ordering 04/11/2022 08:41 PT Evaluation and Treatment Ordered By: JAMILAH GEORGES MD 04/12/2022 09:24 PT Additional Treatment Ordered By: MARCO SYKES, RONALD Active Diagnoses : 04/08/2022 12:00 Acidosis 04/08/2022 [...] mobility due to UTI, AMS, fall, pancreatitis. Admission Date : 04/08/2022 07:53 Personal Devices : Personal Devices No Devices Recorded Assistive Devices : Assistive Devices No Devices Recorded Precautions in Place : Fall prevention measures, Seizure precautions DIVYA GOFF, PT - 04/13/2022 11:11 EDT General Status Patient Received Status : Supine in bed Treatment Start Time : 04/13/2022 9:42 EDT Patient Left Status : Supine in bed, RN/PCT informed, All needs met and within reach Treatment End Time : 04/13/2022 10:08 EDT Treatment Time : 26 Minute(s) Actual Treatment Time : 26 Minute(s) DIVYA GOFF, PT - 04/13/2022 11:11 EDT Intervention Summary Heart Rate/Pulse Pre-intervention : 63 bpm BP Systolic Pre-intervention : 92 mmHg BP Diastolic Pre-intervention : 55 mmHg O2 Pre-Intervention : room air SpO2 Pre-Intervention : 94 % Therapist Assessment During Intervention : SpO2 maintained above 90% throughout treatment DIVYA GOFF, PT - 04/13/2022 11:11 EDT Therapeutic Activities Therapeutic Activities Comment : Sat EOB unsupported x 6 minutes DIVYA GOFF, PT - 04/13/2022 13:42 EDT Therapeutic Exercises Therapeutic Exercise Comment, PT : Resisted elbow flex/ext x 1 minute each arm DIVYA GOFF, PT - 04/13/2022 13:42 EDT Functional Mobility Mobility Grid Bed Roll Left : Rehab Minimal assistance Bed Scooting : Rehab Minimal assistance Supine to Sit : Rehab Minimal assistance Sit to Supine : Rehab Minimal assistance DIVYA GOFF, PT - 04/13/2022 13:42 EDT Gait Training/Assessment, PT Gait Assistance Level : Unable to assess/activity not appropriate DIVYA GOFF PT - 04/13/2022 13:42 EDT Cognitive Treatment, PT Orientation : Oriented x 4 DIVYA GOFF PT - 04/13/2022 13:42 EDT Edu Topics Physical Therapy Education Grid Bed Mobility Training : Returns demonstration Role of Physical Therapy : Needs further teaching Therapeutic Exercises : Needs further teaching Transfer Training : Needs further teaching DIVYA GOFF, PT - 04/13/2022 13:42 EDT Plan of Care, PT PT Tx Plan/Goals Established w Patient : Yes DIVYA GOFF, PT - 04/13/2022 13:42 EDT Short Term Goals Mobility/Bed Mobility STG PT Grid Goal #1 Activity : Supine to sit Assist : Assist, moderate Equipment : Rail, bed Date to Meet : 04/19/2022 EDT Goal Status : Goal met Date Met : 04/13/2022 EDT DIVYA GOFF, PT - 04/13/2022 13:42 EDT Transfer STG Grid Goal #1 Destination : Wheelchair, standard Type : Squat Pivot Sit Assist : Assist, moderate Equipment : Belt, gait Date to Meet : 04/19/2022 EDT Goal Status : Intial Goal Comment : see below DIVYA GOFF, PT - 04/13/2022 13:42 EDT Other PT STG Grid Goal #1 Goal : Pt will propel w/c 50' with supervision Date to Meet : 04/19/2022 EDT Goal Status : Initial goal DIVYA GOFF, PT - 04/13/2022 13:42 EDT Correction Goals Mobility/Bed Mobility LTG PT Grid Goal #1 Activity : Supine to sit Assist : Supervision or set-up Equipment : Rail, bed Date to Meet : 04/26/2022 EDT Goal Status : Progressing, continue DIVYA GOFF, PT - 04/13/2022 13:42 EDT Transfer LTG Grid Goal #1 Destination : Wheelchair, standard Type : Squat Pivot Sit Assist : Supervision or set-up Equipment : Belt, gait Date to Meet : 04/26/2022 EDT Goal Status : Intial Goal Comment : see below DIVYA GOFF, PT - 04/13/2022 13:42 EDT Other PT LTG Grid Goal #1 Other : Pt will propel w/c 200' independently Date to Meet : 04/26/2022 EDT Goal Status : Initial goal DIVYA GOFF, PT - 04/13/2022 13:42 EDT Treatment Note Subjective Comment : RN approved patient for PT treatment, patient agreeable. She notes she has never attempted a sliding board transfer, and would be interested in learning, if approproate with LE wounds. Assessment : Patient demonstrates ability to get to/from the EOB from supine with additional time and min assist this morning. She demonstrates good activity tolerance, but fatigues quickly. Plan for Treatment : Continue per PT POC as indicated. DIVYA GOFF, PT - 04/13/2022 13:42 EDT Pain Assessment Pain Comment : Patient denies pain this am. DIVYA GOFF, PT - 04/13/2022 13:42 EDT Image 1 - Images currently included in the form version of this document have not been included in the text rendition version of the form. [place] PT Charges PT Therap. Exercise 15 min : 1 PT Ther Activities Ea 15 Min : 1 DIVYA GOFF, PT - 04/13/2022 13:42 EDT documented in this encounter Plan of Treatment Not on file documented as of this encounter Visit Diagnoses Not on filedocumented in this encounter
--- OUTSIDE RECORDS SUMMARY | 2025-02-21 13:44 | XMS_ITS | Encounter Summary ---
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 [address] ALYSSA AZUL :1960 Visit Time:04/08/2022 Your Visit Summary Your Care Team Admitting Physician - LUIS ANGEL CUNNINGHAM DO Attending Physician - CHICA RAZA MD-[facility] Primary Care Physician - PAUL LUNA (REF)MD-INT Referring Physician - JOSIAH BONILLA MD Your Diagnosis Acute UTI Altered mental status Altered mental status ARF (acute renal failure) Fall Hyperkalemia Metabolic acidosis Pancreatitis Sepsis, Sepsis, unspecified organism, Sepsis, unspecified organism These Are Your Goals Patient Discharge Goal Patient Discharge Goal: Home health care Discharge Vitals Temperature 37.2 ??C Heart Rate (Monitored) 102 Blood Pressure 111/70 What to do next Follow-Up Appointments Follow Up with SAUL COPPOLA MD-SHADY When 06/10/2022 09:15 AM EDT Comments at the [place] office Appointment has been made Where: Follow Up with HIGINIO AREVALO When In 18 days 05/13/2022 EDT Comments Follow-up as instructed make at time of d/c and can do telehealth Where: [address] [id number] [facility] (1) Follow Up with [facility] When Comments As part of your discharge care your provider has ordered home health services. [facility] will contact you within 24-48 hours. If it has been more than 48 hours and you have not heard from them please call them at [phone]. Where: [phone] Follow Up with Follow up with specialist When Within 1 to 2 weeks Comments ID Follow Up with Follow up with primary care provider When Within 2 to 3 days Medications What How Much When Instructions Next Dose alendronate-cholecalciferol (Fosamax Plus D 70 mg-2800 intl units oral tablet) 1 Tablet(s) Oral Weekly Mondays Pickup at [facility]/pharmacy #2332 cefUROXIME (cefuroxime 500 mg oral tablet) 1 Tablet(s) Oral Two Times A Day Duration: 6 Day(s) Pickup at [facility]/pharmacy #2332 docusate (docusate sodium 100 mg oral capsule) 1 Capsule(s) Oral Two Times A Day as needed for as needed for constipation available for purchase OTC if needed ferrous sulfate (ferrous sulfate 325 mg (65 mg elemental iron) oral tablet) 1 Tablet(s) Oral Two Times A Day Pickup at [facility]/pharmacy #2332 guaiFENesin (Mucinex 600 mg oral tablet, extended release) 1 Tablet(s) Oral Every 12 hours available OTC if needed metFORMIN (metFORMIN 1000 mg oral tablet) 1 Tablet(s) Oral Two Times A Day Pickup at [facility]/pharmacy #2332 acetaminophen (acetaminophen 325 mg oral tablet) 2 Tablet(s) Oral Every 6 Hours as needed for pain/ fever available OTC if needed bisoprolol (bisoprolol 5 mg oral tablet) 1 Tablet(s) Oral Every Day Pickup at [facility]/pharmacy #2332 dapagliflozin (Farxiga 10 mg oral tablet) 1 Tablet(s) Oral Every Day Pickup at [facility]/pharmacy #2332 famotidine (Pepcid 20 mg oral tablet) 1 Tablet(s) Oral At Bedtime available OTC if needed omega-3 polyunsaturated fatty acids (Lovaza 1000 mg oral capsule) 2 Capsule(s) Oral Two Times A Day Pickup at [facility]/pharmacy #2332 PRAVAstatin (pravastatin 40 mg oral tablet) 1 Tablet(s) Oral At [facility] senna (Senna 8.6 mg oral tablet) 1 Tablet(s) Oral At Bedtime available for purchase OTC if needed Pharm[facility] Information [id number] [address] [place], [place] [id number] [phone] Take your medications faithfully. Do NOT skip [...] This Visit No Immunizations Found Education Materials Urinary Tract Infection, Adult A urinary tract infection (UTI) is an infection of any part of the urinary tract. The urinary tract includes: ??? The kidneys. ??? The ureters. ??? The bladder. ??? The urethra. These organs make, store, and get rid of pee (urine) in the body. What are the causes? This infection is caused by germs (bacteria) in your genital area. These germs grow and cause swelling (inflammation) of your urinary tract. What increases the risk? The following factors may make you more likely to develop this condition: ??? Using a small, thin tube (catheter) to drain pee. ??? Not being able to control when you pee or poop (incontinence). ??? Being female. If you are female, these things can increase the risk: ? Using these methods to prevent : ? A medicine that kills sperm (spermicide). ? A device that blocks sperm (diaphragm). ? Having low levels of a female hormone (estrogen). ? Being . You are more likely to develop this condition if: ??? You have genes that add to your risk. ??? You are sexually active. ??? You take antibiotic medicines. ??? You have trouble peeing because of: ? A prostate that is bigger than normal, if you are male. ? A blockage in the part of your body that drains pee from the bladder. ? A kidney stone. ? A nerve condition that affects your bladder. ? Not getting enough to drink. ? Not peeing often enough. ??? You have other conditions, such as: ? Diabetes. ? A weak disease-fighting system (immune system). ? Sickle cell disease. ? Gout. ? Injury of the spine. What are the signs or symptoms? Symptoms of this condition include: ??? Needing to pee right away. ??? Peeing small amounts often. ??? Pain or burning when peeing. ??? Blood in the pee. ??? Pee that smells bad or not like normal. ??? Trouble peeing. ??? Pee that is cloudy. ??? Fluid coming from the vagina, if you are female. ??? Pain in the belly or lower back. Other symptoms include: ??? Vomiting. ??? Not feeling hungry. ??? Feeling mixed up (confused). This may be the first symptom in older adults. ??? Being tired and grouchy (irritable). ??? A fever. ??? Watery poop (diarrhea). How is this treated? Taking antibiotic medicine. ??? Taking other medicines. ??? Drinking enough water. In some cases, you may need to see a specialist. Follow these instructions at home: Medicines ??? Take uunt-ywj-nlugcig and prescription medicines only as told by your doctor. ??? If you were prescribed an antibiotic medicine, take it as told by your doctor. Do not stop taking it even if you start to feel better. General instructions ??? Make sure you: ? Pee until your bladder is empty. ? Do not hold pee for a long time. ? Empty your bladder after sex. ? Wipe from front to back after peeing or pooping if you are a female. Use each tissue one time when you wipe. ??? Drink enough fluid to keep your pee pale yellow. ??? Keep all follow-up visits. Contact a doctor if: ??? You do not get better after 1???2 days. ??? Your symptoms go away and then come back. Get help right away if: ??? You have very bad back pain. ??? You have very bad pain in your lower belly. ??? You have a fever. ??? You have chills. ??? You feeling like you will vomit or you vomit. Summary ??? A urinary tract infection (UTI) is an infection of any part of the urinary tract. ??? This condition is caused by germs in your genital area. ??? There are many risk factors for a UTI. ??? Treatment includes antibiotic medicines. ??? Drink enough fluid to keep your pee pale yellow. This information is not intended to replace advice given to you by your health care provider. Make sure you discuss any questions you have with your health care provider. Document Revised: 03/29/2021 Document Reviewed: 03/29/2021 Elsevier Patient Education ?? 2021 Else[employer] Inc. Emergency Awareness and Preventative Care STROKE [...] Assistance with quitting is available by contacting 0-185-VRQV-NOW. This is a free resource providing counseling, support, and referral. Or you may contact your personal physician. [place] Suicide Prevention Lifeline: The National Suicide Prevention [...] CPR? There are two easy steps: Call 9-1-1 if you see a teen or adult [...] This Visit (last charted value for your 04/08/2022 visit) Blood Gases 04/11/2022 6:53 AM HCO3 Art: 23.1 mmol/L -- Normal range between ( 20.0 and 26.0 ) sO2 Art: 99.6 % -- Normal range between ( 95.0 and 100.0 ) pCO2 Art: 42.3 mmHg -- Normal range between ( 35.0 and 45.0 ) pH Art: 7.34 -- Normal range between ( 7.35 and 7.45 ) pO2 Art: 122.0 mmHg -- Normal range between ( 80.0 and 100.0 ) ABG Num of Draw Attempts: 1 Acceptable Huang's Test Art: Non-Applicable BE Art: -2.4 mmol/L Oxygen Flow Rate Art: 4.0 Liter Delivery Device Type Art: Cannula tHb Art: 6.6 Gram/dL -- Normal range between ( 12.0 and 18.0 ) Ventilator Mode Art: N/A Temperature, F Art: 98.6 Deg F ctO2: 9.3 mmol/L FHHb: <2.4 % Art Blood Gas (ABG) Site: Arterial Line 04/10/2022 6:11 AM Comment Art: supine FIO2 Art: 40 Respiratory Rate Art: 16.0 Set Rate Art: 14.0 Tidal Volume Set Art: 450.0 mL CPAP/PEEP Art: 5.0 cmH2O PaO2/FiO2 calculated: 395 Hematology 04/26/2022 6:45 AM WBC: 3.9 K/uL -- Normal range between ( 4.5 and 10.5 ) RBC: 3.13 Million/uL -- Normal range between ( 3.93 and 5.22 ) Hct: 28.9 % -- Normal range between ( 34.1 and 44.9 ) Hgb: 9.1 g/dL -- Normal range between ( 11.2 and 15.7 ) Platelet Count: 193 K/uL -- Normal range between ( 163 and 369 ) MCH: 29.1 pg -- Normal range between ( 25.6 and 32.2 ) MCHC: 31.5 Gram/dL -- Normal range between ( 32.2 and 36.5 ) MCV: 92.3 fL -- Normal range between ( 79.0 and 94.8 ) Slide Review: No RDW: 16.2 % -- Normal range between ( 11.7 and 14.9 ) MPV: 9.9 fL -- Normal range between ( 9.4 and 12.4 ) 04/22/2022 6:05 AM Eos %: 2.5 % -- Normal range between ( 0.0 and 7.0 ) [place] #: 0.68 K/uL -- Normal range between ( 0.16 and 1.00 ) Eos #: 0.12 x10(3)/uL -- Normal range between ( 0.00 and 0.80 ) [place] %: 13.9 % -- Normal range between ( 3.0 and 9.0 ) Baso %: 1.0 % -- Normal range between ( 0.0 and 1.5 ) Baso #: 0.05 x10(3)/uL -- Normal range between ( 0.00 and 0.20 ) Neut %: 54.8 % -- Normal range between ( 34.0 and 71.0 ) Neut #: 2.67 K/uL -- Normal range between ( 1.56 and 6.13 ) Lymph %: 27.0 % -- Normal range between ( 19.3 and 53.1 ) Lymph #: 1.32 x10(3)/uL -- Normal range between ( 1.00 and 3.90 ) IG#: 0.04 x10(3)/uL -- Normal range between ( 0.00 and 0.05 ) IG%: 0.80 % -- Normal range between ( 0.00 and 0.60 ) 04/13/2022 2:40 AM nRBC: 0.020 -- Normal range between ( 0.000 and 0.012 ) 04/08/2022 8:18 AM Hemoglobin POC: 8.8 Gram/dL -- Normal range between ( 12.0 and 17.0 ) Hematocrit POC: 26.0 % -- Normal range between ( 38.0 and 51.0 ) 04/08/2022 6:09 AM Myelo Percent Man: 4 % -- Normal range between ( 0 and 1 ) ALYC #: 6 K/uL Band Percent Man: 4 % -- Normal range between ( 5 and 11 ) Hypochromia: 1+ RBC Morphology: Abnormal Polychromasia: 1+ ANC #: 19 K/uL [place] Percent Man: 11 % -- Normal range between ( 4 and 5 ) Neutrophil Percent Man: 56 % -- Normal range between ( 50 and 65 ) Eos Percent Man: 1 % -- Normal range between ( 0 and 3 ) Anisocytosis: 1+ Platelet Ct Estimate: Adequate [place] Percent Man: 5 % -- Normal range between ( 0 and 1 ) Poikilocytosis: 1+ Lymph Percent Man: 19 % -- Normal range between ( 24 and 44 ) NRBC: 1 04/08/2022 3:00 AM Ovalocytes: 1+ [place] Cells: 1+ Urinalysis 04/08/2022 6:38 AM Ur RBC: TNTC /HPF Urine Nitrite: Negative Urine Leukocyte Esterase: Large Urine Appearance: Turbid Urine Glucose Dipstick: Negative Urine Blood Dipstick: Large Urine Urobilinogen Dipstick: 0.2 EU/dL Urine Protein Dipstick: >=300 Ur Bacteria: 4+ Ur Yeast, Buddin+ Ur Squamous Epithelial Cells: 3-5 /HPF Urine Color: Straw Ur Transitional Epi Cells: 3-5 Ur WBC: TNTC /HPF Urine Ketones Dipstick: Negative Ur Mucous: 1+ Urine pH Dipstick: 6.0 -- Normal range between ( 6.0 and 8.0 ) Urine Bilirubin Dipstick: Small Urine Specific [place]: 1.020 -- Normal range between ( 1.005 and 1.030 ) Urine Type.: U Cath Urine Culture if Indicated: Culture Ordered Microbiology 04/12/2022 9:54 AM Occult Blood Screen Guaiac: POS 04/09/2022 9:58 PM Influenza A: Not Detected Respiratory Syncytial Virus: Not Detected Legionella pneumophila: Not Detected Influenza B: Not Detected Rhinovirus/Enterovirus: Not Detected Human metapneumovirus: Not Detected Adenovirus: Not Detected Staphylococcus aureus: Not Detected Streptococcus agalactiae: Not Detected Streptococcus pyogenes: Not Detected Streptococcus pneumoniae: Not Detected Haemophilus influenzae: Not Detected Pseudomonas aeruginosa: Not Detected Enterobacter cloacae complex: Not Detected Escherichia coli: Not Detected Klebsiella oxytoca: Not Detected Proteus: Not Detected Serratia marcescens: Not Detected KPC (Carbapenemase): Not Applicable Mycoplasma pneumoniae: Not Detected Chlamydia pneumoniae: Not Detected Moraxella catarrhalis: Not Detected CTX-M (ESBL): Not Applicable mecA/C and MREJ (Methicillin resistance): Not Applicable VIM (Carbapenemase): Not Applicable Klebsiella pneumoniae group: Not Detected A. calco-baumannii complex: Not Detected IMP (Carbapenemase): Not Applicable NDM (Carbapenemase): Not Applicable Acceptable specimen: Yes,see culture OXA-48-like (Carbapenemase): Not Applicable Parainfluenza virus: Not Detected Klebsiella aerogenes: Not Detected Respiratory Culture and Stain: See Result Coronavirus (Not COVID-19): Not Detected 04/09/2022 3:51 PM Genital Culture: See Result 04/09/2022 8:37 AM Wound Culture: POS 04/08/2022 9:18 AM MRSA Surveillance: See Result Influenza A H3: Not Detected Parainfluenza 3: Not Detected Influenza A H1: Not Detected Parainfluenza 1: Not Detected Parainfluenza 2: Not Detected Parainfluenza 4: Not Detected Bordatella pertussis: Not Detected Coronavirus HKU1: Not Detected Coronavirus NL63: Not Detected Coronavirus OC43: Not Detected Coronavirus 229E: Not Detected Influenza A 2009 H1N1: Not Detected SARS-CoV-2 (COVID19 PCR): Not Detected Bordatella parapertussis: Not Detected 04/08/2022 7:00 AM Blood Culture: See Result 04/08/2022 6:38 AM Urine Culture: POS RSV PCR: Negative Blood Bank 04/19/2022 12:39 PM TRANSFUSED: TRANSFUSED 04/19/2022 11:41 AM ABO/Rh (ECHO): A NEG Antibody Screen: Negative ABSC Crossmatch: Computer XM OK 04/19/2022 10:53 AM RBC Product Ready: RBC Ready # of Units:: 2 Units General Chemistry 04/26/2022 10:44 AM Glucose POC2: 170 mg/dL -- Normal range between ( 70 and 110 ) Device Comment 1: Device Comment 1 04/26/2022 6:45 AM Creatinine Level: 1.20 mg/dL -- Normal range between ( 0.55 and 1.02 ) Sodium Level: 137 mmol/L -- Normal range between ( 136 and 146 ) Potassium Level: 4.7 mmol/L -- Normal range between ( 3.5 and 5.1 ) Chloride Level: 106 mmol/L -- Normal range between ( 102 and 112 ) Carbon Dioxide Level: 26 mmol/L -- Normal range between ( 21 and 32 ) Anion Gap: 10 -- Normal range between ( 9 and 20 ) Bun/Creatinine: 25.0 -- Normal range between ( 8.0 and 20.0 ) Calcium Level: 9.0 mg/dL -- Normal range between ( 8.4 and 10.1 ) eGFR : 55 mL/min/1.73m2 eGFR NonAfrican: 46 mL/min/1.73m2 Glucose Level: 141 mg/dL -- Normal range between ( 74 and 106 ) Blood Urea Nitrogen: 30 mg/dL -- Normal range between ( 7 and 22 ) 04/26/2022 6:05 AM Device Comment 2: Device Comment 2 04/22/2022 6:05 AM Bilirubin Total: 0.5 mg/dL -- Normal range between ( 0.2 and 1.2 ) A/G Ratio: 0.6 -- Normal range between ( 1.1 and 2.5 ) ALT: 22 Units/Liter -- Normal range between ( 13 and 56 ) AST: 20 Units/Liter -- Normal range between ( 5 and 37 ) Globulin: 4.0 Gram/dL -- Normal range between ( 1.5 and 4.5 ) Alk Phos: 55 Units/Liter -- Normal range between ( 27 and 136 ) CRP: 0.87 mg/dL -- Normal range between ( 0.00 and 0.30 ) Protein Total: 6.2 Gram/dL -- Normal range between ( 6.4 and 8.2 ) Albumin Level: 2.2 Gram/dL -- Normal range between ( 3.4 and 5.0 ) 04/15/2022 6:33 AM Ammonia Level: 36.0 uMol/L -- Normal range between ( 11.0 and 32.0 ) Calcium Ionized: 1.26 mmol/L -- Normal range between ( 1.12 and 1.32 ) Magnesium Level: 1.9 mg/dL -- Normal range between ( 1.5 and 2.4 ) Phosphorus: 2.8 mg/dL -- Normal range between ( 2.5 and 4.9 ) 04/14/2022 2:30 AM Lactic Acid Level: 1.0 mmol/L -- Normal range between ( 0.4 and 2.0 ) 04/11/2022 4:00 AM Lipase Level: 919 Units/Liter -- Normal range between ( 73 and 393 ) 04/08/2022 8:18 AM Sodium POC: 146 mmol/L -- Normal range between ( 138 and 146 ) Ca Ioniz POC: 1.14 mmol/L -- Normal range between ( 1.12 and 1.32 ) Potassium POC: 6.4 mmol/L -- Normal range between ( 3.5 and 4.9 ) Creatinine POC: 6.2 mg/dL -- Normal range between ( 0.6 and 1.3 ) BUN POC: 98 mg/dL -- Normal range between ( 8 and 26 ) CO2 POC: 12.0 mmol/L -- Normal range between ( 24.0 and 29.0 ) Chloride POC: 122 mmol/L -- Normal range between ( 98 and 109 ) Glucose POC: 188 mg/dL -- Normal range between ( 70 and 105 ) Anion Gap POC: 19.0 mmol/L -- Normal range between ( 10.0 and 20.0 ) Cardiac Specific Markers 04/08/2022 11:04 AM ProBNP: 6614 pg/mL -- Normal range between ( 0 and 125 ) 04/08/2022 6:09 AM Troponin I High Sensitivity: 10.3 pg/mL -- Normal range between ( 3.0 and 58.8 ) 04/08/2022 3:00 AM CK MB: 1.40 ng/mL -- Normal range between ( 0.50 and 3.60 ) CK: 52 Units/Liter -- Normal range between ( 26 and 192 ) MBI: 2.7 Coagulation 04/09/2022 5:14 AM INR: 1.0 -- Normal range between ( 0.9 and 1.2 ) PT: 11.1 Second(s) -- Normal range between ( 9.2 and 12.0 ) Lipid Studies 04/10/2022 3:21 AM Cholesterol Tot: 72 mg/dL -- Normal range between ( 0 and 199 ) Cholesterol HDL: 24.0 mg/dL Cholesterol LDL Calculation: 4.2 mg/dL -- Normal range between ( 0.0 and 99.0 ) Cholesterol VLDL Calculation: 43.8 mg/dL -- Normal range between ( 5.0 and 40.0 ) Cholesterol/HDL Ratio: 3.0 -- Normal range between ( 0.0 and 3.2 ) Triglyceride: 219 mg/dL -- Normal range between ( 0 and 249 ) LDL/HDL Ratio: 0.2 -- Normal range between ( 0.0 and 3.2 ) Endocrinology 04/14/2022 2:30 AM Procalcitonin: <0.25 ng/mL -- Normal range between ( 0.00 and 2.00 ) 04/08/2022 6:09 AM TSH: 2.290 mcInt Units/mL -- Normal range between ( 0.358 and 3.740 ) FT4: 0.56 ng/dL -- Normal range between ( 0.76 and 1.46 ) Toxicology 04/08/2022 6:38 AM UDS Amp: NEGATIVE UDS Annabel: NEGATIVE UDS Benzo: NEGATIVE UDS Charan: NEGATIVE UDS Opi: NEGATIVE UDS PCP: NEGATIVE UDS TCA: NEGATIVE UDS THC: NEGATIVE UDS pH: 6.0 04/08/2022 6:09 AM %Alcohol: <.00 Alcohol: <3 mg/dL Infectious Disease 04/08/2022 4:06 PM Hep B Surf AB: <3.1 mIU/mL Hep B Surf AG: Non Reactive Hepatitis B Surface Antigen: Hepatitis B Surface Antigen Computed Tomography 04/08/2022 9:[address] Abdomen Pelvis WO: CT Abdomen Pelvis WO CT Chest WO: CT Chest WO CT Head WO: CT Head WO Diagnostic Radiology 04/15/2022 7:02 AM CR Chest 1 Vw Portable: CR Chest 1 Vw Portable 04/10/2022 5:13 PM CR Abdomen 1 Vw Portable: CR Abdomen 1 Vw Portable Echo 04/08/2022 10:59 AM EC Echo Complete: EC Echo Complete Specials/Interventional 04/08/2022 3:20 PM XA CVC Non Tunnel: XA CVC Non Tunnel Patient Name:MUKESH ALYSSA I have received and understand this information and was given the opportunity to ask questions. Patient/Computer Methods Analyst Name: Patient/Computer Methods Analyst Signature: Relationship to Patient: Clinician/Hospital Computer Methods Analyst Signature: Date: documented in this encounter Plan of Treatment Not on file documented as of this encounter Visit Diagnoses Not on filedocumented in this encounter
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
--- OUTSIDE RECORDS SUMMARY | 2025-02-21 13:44 | XMS_ITS | Encounter Summary ---
Author Organization [employer] Address [address] [place] [address] Care Team Providers Care Senior Data Modeler Name Role Phone Unavailable Primary Care Provider Unavailabl e Encounter Details Date Type Department Care Team (Late st Contact Info) Description 04/26/2022 Transcribed Document [facility] [place] Family Medicine [address] [place] [address] ProviderFlorentino MD [address] [place] [address] Social History Tobacco Use Types Packs/Day Years Used Date Smoking Tobacco: Never Assessed Comments Unknown Sex and Gender Information Value Date Recorded Sex Assigned at Not on file Legal Sex Female 1:44 PM CDT Gender Identity Not on file Sexual Orientation Not on file documented as of this encounter Miscellaneous Notes * Cerner Conversion Note - Florentino Lynne MD - 04/26/2022 9:04 AM CDT Patient: ALYSSA AZUL Age: 61 years Sex: Female : 1960 Associated Diagnoses: None Author: CHICA RAZA MD-[facility] Subjective Chief complaint. 04/26/22 awake weak no fever Health Status Allergies: [...] IV Piggyback, Q1H, PRN: Other (See Comment) cefUROXIME: 500 mg, Oral, BID diphenhydrAMINE: 50 mg, IV Push, On-CALL, PRN: [...] BID lansoprazole: 30 mg, Feeding Tube, Daily Documented Medications Documented DuoNeb 0.5 mg-2.5 mg/3 [...] tablet: 1 Tab, Oral, Daily, 0 Refill(s) cefuroxime 500 mg oral tablet: 1 Tab, Oral, BID, 0 Refill(s) docusate 10 mg/mL oral liquid: [...] Bedtime , Medications (22) Active Scheduled: (8) cefUROXIME 500 mg tab 500 mg 1 Tab, Oral, BID docusate sodium 100 mg cap 100 mg [...] 30 mg 10 mL, Feeding Tube, Daily miconazole nitrate 2% pwd 85 g 1 [...] History of obstructive sleep apnea / IMO [id number] / Confirmed Diabetes / SNOMED CT [id number] / Confirmed, Active Problems (6) Chronic kidney disease (CKD), stage III (moderate) Diabetes History of obstructive sleep apnea Hyperlipidemia Hypertension Paraplegia Objective VS/Measurements Vitals Signs (last 24 hrs) Last Charted Minimum Maximum Temp 98.9 (APR 26 06:00) 97.5 (APR 26 03:40) 99.3 (APR 25 10:28) Mon HR 93 (APR 26 08:05) 84 (APR 25 23:42) 100 (APR 25 10:28) Resp Rate 16 (APR 26 08:05) 15 (APR 25 15:38) H 24 (APR 25 23:27) SBP 109 (APR 26 06:00) 103 (APR 25 15:38) H 157 (APR 25:28) DBP 70 (APR 26 06:00) 66 (APR 25 15:38) H 91 (APR 25:28) MAP 79 (APR 26 06:00) 79 (APR 26 06:00) 116 (APR 25 10:28) SpO2 95 (APR 26 08:05) 95 (APR 25:28) 100 (APR 25 23:42) General: Alert and oriented, No acute distress. Eye: Pupils are equal, round and reactive to light, Normal conjunctiva. HENT: Normocephalic, Normal hearing. Neck: Supple. Respiratory: Respirations are non-labored, Breath sounds are equal. Cardiovascular: Normal rate. Gastrointestinal: Soft, Non-tender. Integumentary: Warm. Neurologic: Alert, Oriented. Psychiatric: Cooperative, Appropriate mood & affect. Results Review APR 26 06:45 137 106 H 30 / H 141 4.7 26 H 1.20 \ APR 26 06:45 \ L 9.1 / L 3.9 193 / L 28.9 \ APR 26 06:45 137 106 H 30 / H 141 4.7 26 H 1.20 APR 26 06:45 \ L 9.1 / L 3.9 193 / L 28.9 \ Impression and Plan #Severe septic shock [...] Paraplegia. 17. Bed-bound. 18. Hypertension. Disposition: home today on oral abx time spent 45 min documented in this encounter Plan of Treatment Not on file documented as of this encounter Visit Diagnoses Not on filedocumented in this encounter
--- OUTSIDE RECORDS SUMMARY | 2025-02-21 13:44 | XMS_ITS | Encounter Summary ---
Author Organization [employer] Address [address] [place] [address] Care Team Providers Care State Attorney Name Role Phone Unavailable Primary Care Provider Unavailabl e Encounter Details Date Type Department Care Team (Late st Contact Info) Description 03/08/2022 Transcribed Document [facility] Pulm & Critical Care Medicine [address] [place] [address] [address] [place] [address] Tori Ferro MD [address] [facility] [address] [place] [address] Social History Tobacco Use Types Packs/Day Years Used Date Smoking Tobacco: Never Assessed Comments Unknown Sex and Gender Information Value Date Recorded Sex Assigned at Not on file Legal Sex Female 1:44 PM CDT Gender Identity Not on file Sexual Orientation Not on file documented as of this encounter Miscellaneous Notes * Cerner Conversion Note - Tori Ferro MD - 03/08/2022 2:15 PM EDT Patient: ALYSSA AZUL Age: 61 years Sex: Female : 1960 Associated Diagnoses: None Author: TORI FERRO MD Basic Information Pulmonary/CCM Date of Admission: 03/01/22 Date of Consultation: 03/01/22 Referring Provider: Elaine Ramires MD ([facility]) Reason for Consultation: Ventilator/CCM CC: Unobtainable History of Present Illness: This is a 61-year-old female with underlying medical history including paraplegia, CKD, stage III, T2DM, and HTN. At time of evaluation, patient is intubated, sedated, and on ventilator support and both son and [id number] are present at bedside to give some medical background; therefore, history and hospital course is primarily retrieved from them and through medical chart review. In summary, patient was admitted to [facility] on 02/17/22 with symptoms including dyspnea, fever, [...] sodium trending up 149 spoke to the gymnastics coach or instructor will start patient on tube feeds will [...] Placed on spontaneous breathing trial pressure support 10/5 Intake & Output Totals Last 24 Hours (7a-7a) Intake (116 Events) Continuous Infusions (1549.43 mL) Medications (287.59 mL) Enteral Additional Water Given (240 mL) Enteral Feeding Amount (1320 mL) Output (9 Events) Valenzuela Catheter (1275 mL) Other Output (500 mL) Input Total: 3397.02 mL Output Total: 1775 mL Balance: 1622.02 mL Review of Systems Unable to obtain [...] History of obstructive sleep apnea / IMO [id number] / Confirmed, Active Problems (5) Chronic kidney [...] (MAR 07 17:00) Resp Rate 17 (MAR 08:) L 3 (MAR 08 05:30) H 32 (MAR 08 06:10) SBP 123 (MAR 08 12:) L 87 (MAR 08 06:20) H 182 (MAR 08:00) DBP 61 (MAR 08:) L 52 (MAR 08:20) H 93 (MAR 08:00) MAP 83 (MAR 08 12:) 67 (MAR 08 06:20) 130 (MAR 08 01:00) SpO2 L 92 (MAR 08 12:00) L 83 (MAR 07 15:31) 100 (MAR 07 16:00) Intake & Output Totals Last 24 Hours (7a-7a) Intake (116 Events) Continuous Infusions (1549.43 mL) Medications (287.59 mL) Enteral Additional Water Given (240 mL) Enteral Feeding Amount (1320 mL) Output (9 Events) Valenzuela Catheter (1275 mL) Other Output (500 mL) Input Total: 3397.02 mL Output Total: 1775 mL Balance: 1622.02 mL General: awake responds to simple commands on the [...] 2.9 (MAR 06) L 2.8 (MAR 05) . Radiology Results (Last 48 hours) [id number] -- 03/01/2022 17:45 CR Abdomen 1 Vw Portable (03/06/2022 22:26) [...] MD Thai CR Chest 1 Vw Portable (03/07/2022 15:48) Result: [...] Baseline paraplegia Baseline mentation not observed Renal Hhqrj-qd-OHF -- improving Electrolyte abnormalities Hyperchloremia Endocrine T2DM Glycemic control Hematology/Oncology Leukocytosis Morbid Obesity. BMI of 34.1 PLAN: Vent bundle. Wean FiO2, for goal saturation >90%. Placed on spontaneous breathing trial and doing well. Sedation: Turn off fentanyl, will use Precedex low-dose if needed. DuoNebs [...] Nutrition: Case has been discussed with the gymnastics coach or instructor, currently on tube feeds, trophic feeding advance to goal. Corpak in place. GI prophylaxis: Pepcid. VTE prophylaxis: Heparin SQ Labs and images reviewed. Prognosis: Guarded. High risk for respiratory decline and hemodynamic decline. CODE STATUS: Full Code Disposition: ICU ADDENDUM: 1900 hours Patient did well on spontaneous breathing trial with pressure support of 8/5 and an ABG was obtained in 1 hour on this pressure support settings. Blood Gases (Current Encounter/Past 24 Hours) pH Art 7.39 03/08/2022 14:51 pCO2 Art 40.9 03/08/2022 14:51 pO2 Art 88.5 03/08/2022 14:51 HCO3 Art 25.0 03/08/2022 14:51 sO2 Art 98.4 03/08/2022 14:51 tHb Art 8.3 LOW 03/08/2022 20:18 FHHb <2.4 NA 03/08/2022 14:51 ctO2 11.4 NA 03/08/2022 14:51 FIO2 Art 50 NA 03/08/2022 14:51 Delivery Device Type Art Ventilator 03/08/2022 14:26 Temperature, F Art 98.6 NA 03/08/2022 14:51 Art Blood Gas (ABG) Site Arterial Line 03/08/2022 14:26 Acceptable Huang's Test Art Acceptable 03/08/2022 14:26 Ventilator Mode Art Pressure Support Ventilation 03/08/2022 14:26 Respiratory Rate Art 24.0 NA 03/08/2022 14:26 CPAP/PEEP Art 5.0 NA 03/08/2022 14:26 ABG Num of Draw Attempts 1 NA 03/08/2022 14:26 PaO2/FiO2 calculated 177 NA 03/08/2022 14:51 PF ratio 177. RSBI of less than 80. Following commands. Hemodynamics stable. Given one dose IV bumex 2 mg X 1 time to address fluid overload. Extubated and placed on 4 LPM O2 via NC. Stable post extubation. I saw and examined the patient at [...] spent on the patient excluding procedures - 76 min. D/w RN and RT. documented in this encounter Plan of Treatment Not on file documented as of this encounter Visit Diagnoses Not on filedocumented in this encounter
--- OUTSIDE RECORDS SUMMARY | 2025-02-21 13:44 | XMS_ITS | Encounter Summary ---
Author Organization [employer] Address [address] [place] [address] Care Team Providers Care Pooling Operator Name Role Phone Unavailable Primary Care Provider Unavailabl e Encounter Details Date Type Department Care Team (Late st Contact Info) Description 03/08/2022 Transcribed Document [facility] [place] Family Medicine [facility] [place] [address] ProviderFlorentino MD [address] [place] [address] Social History Tobacco Use Types Packs/Day Years Used Date Smoking Tobacco: Never Assessed Comments Unknown Sex and Gender Information Value Date Recorded Sex Assigned at Not on file Legal Sex Female 1:44 PM CDT Gender Identity Not on file Sexual Orientation Not on file documented as of this encounter Miscellaneous Notes * Cerner Conversion Note - Florentino ProviderMD - 03/08/2022 3:08 PM CDT Patient: ALYSSA AZUL Age: 61 Years Sex: Female : 1960 Subjective DOS 03/08/2022 Seen and examined at bedside in ICU. intubated. following commands. off sedation. more alert and communicative. Vital Signs T: 37.2 ??C TMIN: 36.9 [...] appreciated- recommend wound care consult - d/w crisis manager today- wound vac applied on 02/24 pneumonia [...] patient due to divert status. Summary [facility] stay: patient admitted to [facility] on 02/17/22, temp in ER of 100.9, [...] pathology sent. [place] [facility] [place] 02[place]. 02/22: extubated, given [...] While patient is in bed, [facility] Sequential Compression Device Start: 03/01/22 18:51:00 EDT, Bilateral, Length: Knee High, While patient is in bed, Continuous Order [facility]) Medications acetaminophen, 650 mg= [...] # 0.81 x10(3)/uL (Low) 03/08/2022 03:04 EDT [place] % 5.0 % 03/08/2022 03:04 EDT [place] # 0.44 K/uL 03/08/2022 03:04 EDT Eos [...] Turbid (Abnormal) 03/07/2022 21:05 EDT Urine Specific [place] 1.015 03/07/2022 21:05 EDT Urine pH Dipstick [...] Progress Note - SOAP; Elaine Ramires, PHYSICIAN-CLINIC 03/07/2022 18:39 EDT documented in this encounter Plan of Treatment Not on file documented as of this encounter Visit Diagnoses Not on filedocumented in this encounter
--- OUTSIDE RECORDS SUMMARY | 2025-02-21 13:44 | XMS_ITS | Encounter Summary ---
Author Organization [facility] Address [address] [place] [address] Care Team Providers Care Communications Officer Name Role Phone Unavailable Primary Care Provider Unavailabl e Encounter Details Date Type Department Care Team (Late st Contact Info) Description 03/21/2022 Transcribed Document [facility] Family Medicine [address] [place] [address] ProviderFlorentino MD [address] [place] [address] Social History Tobacco Use Types Packs/Day Years Used Date Smoking Tobacco: Never Assessed Comments Unknown Sex and Gender Information Value Date Recorded Sex Assigned at Not on file Legal Sex Female 1:44 PM CDT Gender Identity Not on file Sexual Orientation Not on file documented as of this encounter Miscellaneous Notes * Cerner Conversion Note - Florentino Lynne MD - 03/21/2022 10:51 AM CDT UM Authorization Entered On: 03/21/2022 10:51 EDT Performed On: 03/21/2022 10:51 EDT by Mallory Sanchez, Tromper Primary Insurance Authorization Authorization and Policy Numbers : Insurance 1 Health Plan: [facility] Policy Number: [id number] Authorization Number: Insurance Primary Name : [facility] Policy Number: [id number] Authorization Number: Authorization Status-Primary : Partially approved Auth/Referral Contact Name-Primary : DC+ Reference Number-Primary : [id number] Number of Days Authorized-Primary : 14 Day(s) Authorized Service Begin Date-Primary : 03/01/2022 EDT Authorized Service End Date-Primary : 03/15/2022 EDT Authorization Comments-Primary : Discharge summary faxed. Historical Authorization Comments-Primary : Comment 1: Discussed with BARNEY Olivo and she stated facility that accepted patient has now declined patient. Informed Dr. Luzma Cabello of IP c/s denial. Awaiting if wants to attempt p2p. (SARAH MORALES RN 03/17/2022 14:18) Comment 2: Sent to Dr. Luzma cabello for p2p. (SARAH MORALES RN 03/17/2022 13:48) Comment 3: Partially approved per fax 03/14/22 @ 1021. Denied continued inpatient DOS 03/16- forward. Placed in Denials 2021 folder. (Mallory Sanchez, Tromper 03/14/2022 10:45) Comment 4: c/s auth req faxed via [employer] 03/12-03/13 (JOSEPH GUTIERREZ, PRIMO-UTILIZATION MANAGEMENT REVIEW NON-EXEMPT 03/13/2022 16:27) Comment 5: CLINICAL UPDATE FAXED VIA [employer] 03/05-03/10 ([address], PRIMO 03/10/2022 13:19) Comment 6: UPLOADED CLINICALS VIA [employer] AND FAXED TO [facility]/ AWAITING CALLBACK/ REFERENCE # LISTED ON FRONT PAGE. (Jelani Anne, job tracer 03/04/2022 14:03) Comment 7: Authorized per fax 03/02/22 @ 1335. Approved DRG admission. Next reivew due 03/10. -Hannah Barronjunikenneth. (Mallory Sanchez, Tromper 03/04/2022 11:20) Comment 8: Rec vm from Hannah at [facility] on 1753 line on 03/02/22 at 8:42am She is req clinical be sent in Transf VM to [facility] so she could follow up (SHERIF LYNCH, Negotiator 03/04/2022 09:42) Comment 9: auth # per star notes, faxed clinicals via [employer] 03/01 (JOSEPH GUTIERREZ, PRIMO-UTILIZATION MANAGEMENT REVIEW NON-EXEMPT 03/02/2022 11:28) Mallory Sanchez, Tromper - 03/21/2022 10:51 EDT Electronically signed by Sumaya [employer] Conversion Auto Seat Cover Installer Cerner at 12/21/2022 5:10 PM CDT documented in this encounter Plan of Treatment Not on file documented as of this encounter Visit Diagnoses Not on filedocumented in this encounter
--- OUTSIDE RECORDS SUMMARY | 2025-02-21 13:44 | XMS_ITS | Encounter Summary ---
Author Organization [employer] [facility] Address [address] [place] [address] Care Team Providers Care Homeopathic Doctor Name Role Phone Unavailable Primary Care Provider Unavailabl e Encounter Details Date Type Department Care Team (Late st Contact Info) Description 04/13/2022 Transcribed Document [facility] Family Medicine [address] [place] [address] ProviderFlorentino MD [address] [place] [address] Social History Tobacco Use Types Packs/Day Years Used Date Smoking Tobacco: Never Assessed Comments Unknown Sex and Gender Information Value Date Recorded Sex Assigned at Not on file Legal Sex Female 1:44 PM CDT Gender Identity Not on file Sexual Orientation Not on file documented as of this encounter Miscellaneous Notes * Cerner Conversion Note - Florentino Lynne MD - 04/13/2022 8:34 AM CDT Patient: ALYSSA AZUL Age: 61 years Sex: Female : 1960 Associated Diagnoses: None Author: HIGINIO AREVALO MD-INF Antibiotics: Zyvox, meropenem, micafungin. CC: Sacral wound Subjective: She complains of some difficulty hearing from her left ear off and on . Productive cough. No n/v/d. She remains afebrile. Objective: Vitals Signs (last 24 hrs) Last [...] 94 (APR 13 07:38) L 91 (APR 12 13:00) 100 (APR 12 11:00) T-max 96 PE: General: alert, oriented HEENT: [...] LABS: Labs (Last four charted values) WBC 8.4 [...] 12) 22 (APR 11) BUN H 26 (APR 13) 15 (APR 12) 13 (APR 12) 7 [...] pending IMAGING: Radiology Results (Last 48 hours) [id number] -- 04/08/2022 07:53 CR Chest 1 Vw [...] paraplegia - Obesity - DM2 - Thrombocytopenia, 106 today. continue to monitor Assessment: 61-year-old chronically ill long hospitalization with [...] off CRRT off pressors, improving more alert fever curve is improved creatinine is up today we will continue to monitor RECOMMENDATIONS/PLANS: -Follow-up cultures, gram-negative rods in urine [...]
--- OUTSIDE RECORDS SUMMARY | 2025-02-21 13:44 | XMS_ITS | Encounter Summary ---
Author Organization [employer] [facility] [facility] Address [address] [place] [address] Care Team Providers Care Night Shift Manager Name Role Phone Unavailable Primary Care Provider Unavailabl e Encounter Details Date Type Department Care Team (Late st Contact Info) Description 04/13/2022 Transcribed Document [facility] Family Medicine [address] [place] [address] ProviderFlorentino MD [address] [place] [address] Social History Tobacco Use Types Packs/Day Years Used Date Smoking Tobacco: Never Assessed Comments Unknown Sex and Gender Information Value Date Recorded Sex Assigned at Not on file Legal Sex Female 1:44 PM CDT Gender Identity Not on file Sexual Orientation Not on file documented as of this encounter Miscellaneous Notes * Cerner Conversion Note - Historical ProviderMD - 04/13/2022 5:00 AM CDT Height and Weight, Routine Entered On: 04/13/2022 4:45 EDT Performed On: 04/13/2022 5:00 EDT by Hebert Barker RN Height and Weight, Routine Routine Weight Source : Bed scale Routine Weight Entry Format : Metric Routine Weight, Kilograms : 84.6 kg(Converted to: 186 lb 8 oz) Routine Weight Calculation : 84.6 kg Height Source : Estimated Height Entry Format : [place] Height, Feet : 5 ft Height, Inches : 6 Inch Clinical Height : 167.64 cm Body Surface Area (BSA), Routine : 1.94 m2 Body Mass Index (BMI), Routine : 30.1 kg/m2 Hebert Barker RN - 04/13/2022 4:44 EDT documented in this encounter Plan of Treatment Not on file documented as of this encounter Visit Diagnoses Not on filedocumented in this encounter
--- OUTSIDE RECORDS SUMMARY | 2025-02-21 13:44 | XMS_ITS | Encounter Summary ---
Author Organization [employer] [facility] Address [address] [place] [address] Care Team Providers Care Meals On Wheels Driver Name Role Phone Unavailable Primary Care Provider Unavailabl e Encounter Details Date Type Department Care Team (Late st Contact Info) Description 04/08/2022 Transcribed Document [facility] Family Medicine [address] [place] [address] ProviderFlorentino MD [address] [place] [address] Social History Tobacco Use Types Packs/Day Years Used Date Smoking Tobacco: Never Assessed Comments Unknown Sex and Gender Information Value Date Recorded Sex Assigned at Not on file Legal Sex Female 1:44 PM CDT Gender Identity Not on file Sexual Orientation Not on file documented as of this encounter Miscellaneous Notes * Cerner Conversion Note - Florentino ProviderMD - 04/08/2022 7:49 AM CDT Consult Phone Call Documentation Entered On: 04/08/2022 10:16 EDT Performed On: 04/08/2022 7:49 EDT by Junie Enriquez Beef Cattle Farm Worker Phone Call for Consults Consult Phone Call/Page Attempt : Other: already occured Consult Reason : campos with hyperkalemia Provider Service Notified Name : Nephrology Junie Enriquez, Beef Cattle Farm Worker - 04/08/2022 10:16 EDT documented in this encounter Plan of Treatment Not on file documented as of this encounter Visit Diagnoses Not on filedocumented in this encounter
--- OUTSIDE RECORDS SUMMARY | 2025-02-21 13:44 | XMS_ITS | Encounter Summary ---
Author Organization [employer] [facility] Address [address] [place] [address] Care Team Providers Care Headstart Teacher Name Role Phone Unavailable Primary Care Provider Unavailabl e Encounter Details Date Type Department Care Team (Late st Contact Info) Description 04/13/2022 Transcribed Document [facility] [place] [address] [place] [address] ProviderFlorentino MD [address] [place] [address] Social History Tobacco Use Types [...] Historical ProviderMD - 04/13/2022 5:00 AM CDT Chart Check - Review Order Profile Entered On: 04/13/2022 4:44 EDT Performed On: 04/13/2022 5:00 EDT by Hebert Barker RN Chart Check Powerplans Initiated/Discontinued as Appropriate : Yes All Active Orders Reviewed : Yes Hebert Barker RN - 04/13/2022 4:44 EDT Electronically signed by Sumaya [facility] Conversion Inside Account Executive Cerner at 12/21/2022 5:10 PM CDT documented in this encounter Plan of Treatment Not on file documented as of this encounter Visit Diagnoses Not on filedocumented in this encounter
--- OUTSIDE RECORDS SUMMARY | 2025-02-21 13:44 | XMS_ITS | Encounter Summary ---
Author Organization [employer] [facility] Address [address] [place] [address] Care Team Providers Care Jewelry Sales Name Role Phone Unavailable Primary Care Provider Unavailabl e Encounter Details Date Type Department Care Team (Late st Contact Info) Description 03/09/2022 Transcribed Document [facility] [place] [address] [place] [address] ProviderFlorentino MD [address] [place] [address] Social History Tobacco Use Types Packs/Day Years Used Date Smoking Tobacco: Never Assessed Comments Unknown Sex and Gender Information Value Date Recorded Sex Assigned at Not on file Legal Sex Female 1:44 PM CDT Gender Identity Not on file Sexual Orientation Not on file documented as of this encounter Miscellaneous Notes * Cerner Conversion Note - Florentino Lynne MD - 03/09/2022 2:25 PM CDT On Going Discharge Planning Entered On: 03/09/2022 14:31 EDT Performed On: 03/09/2022 14:25 EDT by STEFAN FERNANDEZ RN-Clinical Program ConsultantPin Worker Progress Note Discharge Arrangements : Patient [...] Did you Attend Multidisciplinary Rounds? : Yes STEFAN FERNANDEZ, RN-Clinical Program Consultant - 03/09/2022 14:25 EDT Narrative Progress Note Narrative Progress Note : RAR High ELOS: 12 days HD#7 Covid Vaccine X2 +Booster 61 year old female with history paraplegia, CKD3, DM2, HTN; presented to [facility] with SOB, fever, chills and productive Cough X1 week. Admitted for PNA and debridement DTI to left buttock. Cardiac arrested, intubated and transferred to [facility]. She was extubated a couple days later and reintubated the same day and extubated. She was reintubated on 03/01 after failed BiPap and transferred to [facility]. Of note patient had trach/PEG in 2009. Consults: Pulmonary, ID 03/01 Intubated 03/08 Extubated 03/01 Central Line Patient extubated on Thursday. Awake and alert, following commands. O2 sat 99% on 3 liters. LASER PRINTING OPERATOR swallow eval, not safe to initiate po diet, continue corpak with TF. Renal function improving. DCP: PT/OT re-evals pending to assist with discharge plan. Anticipate patient will need inpatient rehab. Will fax referral when therapy notes available. Historical Progress Note : RAR High ELOS: 5 days HD#3 Covid Vaccine X2 +Booster 61 year old female with history paraplegia, CKD3, DM2, HTN; presented to [facility] with SOB, fever, chills and productive Cough X1 week. Admitted for PNA and debridement DTI to left buttock. Cardiac arrested, intubated and transferred to [facility]. She was extubated a couple days later and reintubated the same day and extubated. She was reintubated on 03/01 after failed BiPap and transferred to [facility]. Of note patient had trach/PEG in 2009. Consults: Pulmonary, ID 03/01 Intubated Vent Day #5 03/01 Central Line On MV per ET AC 16/400/40%/P8, sedated with Fentanyl and Propofol, awake and following commands. Na+ trending up 149. Corpak with TF. ID plan: IV Zosyn q8. Wound Vac to left buttock. Patient lives alone in [place]. She is and has one son DJ. Her PCP s Dr. Cabello. Patient is ADL independent at her baseline. Only inpatient rehab stay was at [facility] at age 9. No prior home health services. She has a CPap and dated WC at home. She transports by her son or Medicaid van. DCP: CM spoke with patient's son FREDO on the phone. He and his plan to ultimately take her home to their house in [place] after hospitalization and LTACH/Rehab stay for IV abx and wound care. Patient has managed medicaid and does not have a SNF benefit. Her inpatient options at discharge will be LTACH or acute rehab versus home with home health. Early referral to [facility]. Son asked if we could assist in getting her a new WC at discharge. He will let CM know the name of her DME provider to see if she is eligible for a new one. CM will assist to get his [place] paperwork over to [place] office. STEFAN FERNANDEZ RN-Clinical Program Consultant - 03/05/22 13:34:00 STEFAN FERNANDEZ RN-Clinical Program Consultant - 03/09/2022 14:25 EDT documented in this encounter Plan of Treatment Not on file documented as of this encounter Visit Diagnoses Not on filedocumented in this encounter
--- OUTSIDE RECORDS SUMMARY | 2025-02-21 13:44 | XMS_ITS | Encounter Summary ---
Author Organization [employer] [facility] Address [address] [place] [address] Care Team Providers Care Fishing Tool Technician Oil Well Name Role Phone Unavailable Primary Care Provider Unavailabl e Encounter Details Date Type Department Care Team (Late st Contact Info) Description 03/08/2022 Transcribed Document [facility] Family Medicine [address] [place] [address] ProviderFlorentino MD [address] [place] [address] Social History Tobacco Use Types Packs/Day Years Used Date Smoking Tobacco: Never Assessed Comments Unknown Sex and Gender Information Value Date Recorded Sex Assigned at Not on file Legal Sex Female 1:44 PM CDT Gender Identity Not on file Sexual Orientation Not on file documented as of this encounter Miscellaneous Notes * Cerner Conversion Note - Historical ProviderMD - 03/08/2022 5:00 PM CDT Chart Check - Review Order Profile Entered On: 03/08/2022 18:24 EDT Performed On: 03/08/2022 17:00 EDT by Jose Harris RN Chart Check Powerplans Initiated/Discontinued as Appropriate : Yes All Active Orders Reviewed : Yes Jose Harris RN - 03/08/2022 18:23 EDT documented in this encounter Plan of Treatment Not on file documented as of this encounter Visit Diagnoses Not on filedocumented in this encounter
--- OUTSIDE RECORDS SUMMARY | 2025-02-21 13:44 | XMS_ITS | Encounter Summary ---
Author Organization [employer] [facility] Address [address] [place] [address] Care Team Providers Care Disc Sander Name Role Phone Unavailable Primary Care Provider Unavailabl e Encounter Details Date Type Department Care Team (Late st Contact Info) Description 04/12/2022 Transcribed Document [facility] [place] [address] [place] [address] ProviderFolrentino MD [address] [place] [address] Social History Tobacco Use Types Packs/Day Years Used Date Smoking Tobacco: Never Assessed Comments Unknown Sex and Gender Information Value Date Recorded Sex Assigned at Not on file Legal Sex Female 1:44 PM CDT Gender Identity Not on file Sexual Orientation Not on file documented as of this encounter Miscellaneous Notes * Cerner Conversion Note - Historical ProviderMD - 04/12/2022 5:00 AM CDT Height and Weight, Routine Entered On: 04/12/2022 5:07 EDT Performed On: 04/12/2022 5:00 EDT by Hebert Barker RN Height and Weight, Routine Routine Weight Source : Bed scale Routine Weight Entry Format : Metric Routine Weight, Kilograms : 84.3 kg(Converted to: 185 lb 14 oz) Routine Weight Calculation : 84.3 kg Height Source : Estimated Height Entry Format : [place] Height, Feet : 5 ft Height, Inches : 6 Inch Clinical Height : 167.64 cm Body Surface Area (BSA), Routine : 1.94 m2 Body Mass Index (BMI), Routine : 30 kg/m2 Hebert Barker RN - 04/12/2022 4:59 EDT documented in this encounter Plan of Treatment Not on file documented as of this encounter Visit Diagnoses Not on filedocumented in this encounter
--- OUTSIDE RECORDS SUMMARY | 2025-02-21 13:44 | XMS_ITS | Encounter Summary ---
Author Organization [employer] [facility] Address [address] [place] [address] Care Team Providers Care Manager Community Relations Name Role Phone Unavailable Primary Care Provider Unavailabl e Encounter Details Date Type Department Care Team (Late st Contact Info) Description 04/08/2022 Transcribed Document [facility] [place] [address] ProviderFlorentino [place] [address] Social History Tobacco Use Types [...] MD - 04/08/2022 5:58 AM CDT ED Triage Entered On: 04/08/2022 6:25 EDT Performed On: 04/08/2022 5:58 EDT by LIANA GARCIA RN ED Triage Across the Room Chief Complaint : pt. via ems from [place] for AMS, agonal respirations, hypoxia and fall. on floor for unknown amount of time. pt. son reports decreased PO inatke and declining since yesterday. hx cardiac arrest x2, resp. failure, CKD, paralysis, PNA, sepsis. Triage Date/Time : 04/08/2022 6:21 EDT LIANA GARCIA RN - 04/08/2022 6:21 EDT DCP GENERIC CODE Tracking Acuity : 1 - Critical Tracking Group : [facility] ED LIANA GARCIA RN - 04/08/2022 6:21 EDT Mode of Arrival : Stretcher Transported to ED by : Ambulance/BLS EMS Service : [facility] [place] To Room Via : Stretcher Accompanied By : Unaccompanied ED Vital Signs : Document Height & Weight : Document ED Allergies : Document ED Reason for Visit : Document LIAAN GARCIA RN - 04/08/2022 6:21 EDT Infectious Disease History Does patient have symptoms of COVID-19? : Yes Tested for COVID19 in the past 14 days : No, Patient stated Does the Patient state known exposure to a COVID-19 positive case in the last 14 days? : No Patient Vaccinated for COVID-19 : Partially vaccinated or need booster Does Patient want a COVID-19 Vaccine? : No LIANA GARCIA RN - 04/08/2022 6:21 EDT Infectious Disease Risk Screening Grid Cough < 2 wks of unknown origin : NO Cough > 2 weeks : NO Blood in Sputum : NO Fever or self-reported Fever : NO Rash of unknown origin : NO Headache : NO Stiff neck : NO Night Sweats : NO Unexplained Weight Loss : NO Diarrhea (3 episode per day) : NO LIANA GARCIA RN - 04/08/2022 6:21 EDT Physical contact outside [place] in the last 30 days : No Hospitalized in Foreign Country : No Infectious Disease History : Unable to assess INF Disease TB Screening Calc : 0 INF Disease Recent Travel Calc : 0 LIANA GARCIA RN - 04/08/2022 6:21 EDT Vital Signs ED Temperature Source : Rectal Temperature Mode : Fahrenheit Temperature, Fahrenheit : 95.4 Deg F (LOW) Clinical Temperature, C : 35.2 Deg C Oxygen Therapy Mode : Room air Peripheral Pulse Rate : 66 bpm Respiratory Rate : 14 Breaths/Min Systolic Blood Pressure : 116 mmHg Diastolic Blood Pressure : 60 mmHg Oxygen Saturation : 95 % LIANA GARCIA RN - 04/08/2022 6:21 EDT Allergy (As Of: 04/08/2022 06:25:42 EDT) Allergies (Active) No Known Allergies Estimated Onset Date: Unspecified ; Created By: Bridgette Ribera RN-PATIENT CARE BEDSIDE NON-EXEMP; Reaction Status: Active ; Category: Drug ; Substance: No Known Allergies ; Type: Allergy ; Updated By: Bridgette Ribera RN-PATIENT CARE BEDSIDE NON-EXEMP; Reviewed Date: 04/08/2022 6:24 EDT Diagnosis Control ED (As Of: 04/08/2022 06:25:42 EDT) Problems(Active) Chronic kidney disease (CKD), stage III (moderate) (SNOMED CT :9053394462 ) Name of Problem: Chronic kidney disease (CKD), stage III (moderate) ; Recorder: TRINIDAD LANDIS RN; Confirmation: Confirmed ; Classification: Patient Stated ; Code: [id number] ; Contributor System: PowerChart ; Last Updated: 03/01/2022 23:55 EDT ; Life Cycle Date: 03/01/2022 ; Life Cycle Status: Active ; Vocabulary: SNOMED CT Diabetes (SNOMED CT :679023707 ) Name of Problem: Diabetes ; Recorder: OG CAAL MD-INT; Confirmation: Confirmed ; Classification: Medical ; Code: 628381706 ; Contributor System: PowerChart ; Last Updated: 03/20/2022 13:12 EDT ; Life Cycle Date: 03/20/2022 ; Life Cycle Status: Active ; Responsible Provider: OG CAAL MD-INT; Vocabulary: SNOMED CT History of obstructive sleep apnea (IMO :55769452 ) Name of Problem: History of obstructive sleep apnea ; Recorder: SYSTEM, SYSTEM; Confirmation: Confirmed ; Classification: Medical ; Code: [id number] ; Last Updated: 02/22/2022 18:34 EDT ; Life Cycle Date: 02/22/2022 ; Life Cycle Status: Active ; Vocabulary: IMO Hyperlipidemia (SNOMED CT :58287497 ) Name of Problem: Hyperlipidemia ; Recorder: TRINIDAD LANDIS RN; Confirmation: Confirmed ; Classification: Patient Stated ; Code: [id number] ; Contributor System: PowerChart ; Last Updated: 03/01/2022 23:54 EDT ; Life Cycle Date: 03/01/2022 ; Life Cycle Status: Active ; Vocabulary: SNOMED CT Hypertension (SNOMED CT :7519827208 ) Name of Problem: Hypertension ; Recorder: TRINIDAD LANDIS RN; Confirmation: Confirmed ; Classification: Patient Stated ; Code: 6657292433 ; Contributor System: PowerChart ; Last Updated: 03/01/2022 23:55 EDT ; Life Cycle Date: 03/01/2022 ; Life Cycle Status: Active ; Vocabulary: SNOMED CT Paraplegia (SNOMED CT :342710440 ) Name of Problem: Paraplegia ; Recorder: Maddison Sepulveda Lpn; Confirmation: Confirmed ; Classification: Patient Stated ; Code: 224872034 ; Contributor System: Flavours ; Last Updated: 03/17/2022 2:03 EDT ; Life Cycle Date: 03/17/2022 ; Life Cycle Status: Active ; Vocabulary: SNOMED CT Diagnoses(Active) Altered mental status Date: 04/08/2022 ; Diagnosis Type: Reason For Visit ; Confirmation: Confirmed ; Clinical Dx: Altered mental status ; Classification: Medical ; Clinical Service: Emergency medicine ; Code: PNED ; Probability: 0 ; Diagnosis Code: [id number] ED Height and Weight Height Source : Estimated Height Entry Format : [place] Height, Feet : 5 ft(Converted to: 152 cm, 60 Inch) Height, Inches : 8 Inch(Converted to: 0 ft 8 Inch, 20.32 cm) Clinical Height : 172.72 cm Weight Source, ED : Bed scale Weight Entry Format : [place] Weight, Pounds : 180 lb Clinical Dosing Weight : 81.82 kg Body Surface Area (BSA) : 1.96 m2 Body Mass Index : 27.4 kg/m2 (HI) [place] Body Weight (IBW) : 63.45 kg LIANA GARCIA RN - 04/08/2022 6:21 EDT Electronically signed by Luís Shell Conversion Drafter Automotive Design Layout Cerner at 12/21/2022 5:08 PM CDT documented in this encounter Plan of Treatment Not on file documented as of this encounter Visit Diagnoses Not on filedocumented in this encounter
--- OUTSIDE RECORDS SUMMARY | 2025-02-21 13:44 | XMS_ITS | Encounter Summary ---
Author Organization [employer] Address [address] [place] [id number] Care Team Providers Care Enrollment Manager Name Role Phone Unavailable Primary Care Provider Unavailabl e Encounter Details Date Type Department Care Team (Late st Contact Info) Description 04/12/2022 Transcribed Document [facility] [place] Family Medicine [address] [place] [address] ProviderFlorentino MD [address] [place] [address] Social History Tobacco Use Types Packs/Day Years Used Date Smoking Tobacco: Never Assessed Comments Unknown Sex and Gender Information Value Date Recorded Sex Assigned at Not on file Legal Sex Female 1:44 PM CDT Gender Identity Not on file Sexual Orientation Not on file documented as of this encounter Miscellaneous Notes * Cerner Conversion Note - Historical ProviderMD - 04/12/2022 2:00 AM CDT Welding Machine Feeder Details Entered On: 04/12/2022 1:14 EDT Performed On: 04/12/2022 2:00 EDT by Hebert Barker RN Order Details Transport Mode Order Detail : Bed (including specialty) Order Detail : 0 IV Order Detail : 1 Oxygen Order Detail : 1 Nurse Collect Order Detail : 1 Lift/Transfer : Maximal assist Central Line Order Detail : Yes Room Service : Appropriate Arterial Line : Yes Patient Needs Meds Crushed/Liquid : Yes Meds Administered Via Tube : Yes Hebert Barker RN - 04/12/2022 1:14 EDT documented in this encounter Plan of Treatment Not on file documented as of this encounter Visit Diagnoses Not on filedocumented in this encounter
--- OUTSIDE RECORDS SUMMARY | 2025-02-21 13:44 | XMS_ITS | Encounter Summary ---
Author Organization [employer] Address [address] [place] [address] Care Team Providers Care Regional Guide Name Role Phone Unavailable Primary Care Provider Unavailabl e Encounter Details Date Type Department Care Team (Late st Contact Info) Description 04/08/2022 Transcribed Document [facility] [place] Family Medicine [address] [place] [address] ProviderFlorentino MD [address] [place] [address] Social History Tobacco Use Types Packs/Day Years Used Date Smoking Tobacco: Never Assessed Comments Unknown Sex and Gender Information Value Date Recorded Sex Assigned at Not on file Legal Sex Female 1:44 PM CDT Gender Identity Not on file Sexual Orientation Not on file documented as of this encounter Miscellaneous Notes * Cerner Conversion Note - Historical ProviderMD - 04/08/2022 8:05 AM CDT ED Event Note Entered On: 04/08/2022 8:15 EDT Performed On: 04/08/2022 8:05 EDT by Kiki Sheth Rn ED Event Note ED Event Date/Time : 04/08/2022 8:05 EDT ED Description of Event : rn, md, and respiratory at bedside with plan to intubate. 100mcg fentanyl given @ 0802 5mg versed given @ 0806 +color change @ 0807 7.5ET tube placed by Dr. Weiss 22 @ lip Kiki Sheth, Kathy - 04/08/2022 8:14 EDT documented in this encounter Plan of Treatment Not on file documented as of this encounter Visit Diagnoses Not on filedocumented in this encounter
--- OUTSIDE RECORDS SUMMARY | 2025-02-21 13:44 | XMS_ITS | Encounter Summary ---
Author Organization [employer] Address [address] [place] [address] Care Team Providers Care Crop Roller Name Role Phone Unavailable Primary Care Provider Unavailabl e Encounter Details Date Type Department Care Team (Late st Contact Info) Description 04/08/2022 Transcribed Document [facility] [place] Family Medicine [address] [place] [address] ProviderFlorentino MD [address] [place], [place] [id number] Social History Tobacco Use Types Packs/Day Years Used Date Smoking Tobacco: Never Assessed Comments Unknown Sex and Gender Information Value Date Recorded Sex Assigned at Not on file Legal Sex Female 1:44 PM CDT Gender Identity Not on file Sexual Orientation Not on file documented as of this encounter Miscellaneous Notes * Cerner Conversion Note - Historical ProviderMD - 04/08/2022 3:33 PM CDT Patient: ALYSSA AZUL Age: 61 years Sex: Female : 1960 Associated Diagnoses: None Author: FRANCIS RIBERA MD-RAD Pre-OP/Procedure Diagnosis: Need for dialysis Procedure Performed: Temporary triple lumen dialysis catheter placement Procedural MD: Montse Director Of Pediatric Rehabilitation: None Sedation: None Findings: Successful right jugular temporary triple lumen dialysis catheter placement with ultrasound and fluroscopy guidance. Complications: None EBL: Minimal Specimen(s) Removed: None Full report to follow. documented in this encounter Plan of Treatment Not on file documented as of this encounter Visit Diagnoses Not on filedocumented in this encounter
--- OUTSIDE RECORDS SUMMARY | 2025-02-21 13:44 | XMS_ITS | Encounter Summary ---
Author Organization [employer] Address [address] [place] [address] Care Team Providers Care Mail Courier Name Role Phone Unavailable Primary Care Provider Unavailabl e Encounter Details Date Type Department Care Team (Late st Contact Info) Description 03/19/2022 Transcribed Document [facility] [place] Family Medicine [address] [place] [address] ProviderFlorentino MD [address] [place] [address] Social History Tobacco Use Types Packs/Day Years Used Date Smoking Tobacco: Never Assessed Comments Unknown Sex and Gender Information Value Date Recorded Sex Assigned at Not on file Legal Sex Female 1:44 PM CDT Gender Identity Not on file Sexual Orientation Not on file documented as of this encounter Miscellaneous Notes * Cerner Conversion Note - Historical ProviderMD - 03/19/2022 5:00 AM CDT Height and Weight, Routine Entered On: 03/19/2022 6:27 EDT Performed On: 03/19/2022 5:00 EDT by Ze Holbrook Patient Wire Temperer Gopal Height and Weight, Routine Routine Weight Source : Bed scale Routine Weight Entry Format : [place] Routine Weight, Pounds : 179 lb Routine Weight, Ounces : 1 oz Routine Weight Calculation : 81.39 kg Height Source : Chart Height Entry Format : [place] Height, Feet : 5 ft Height, Inches : 4 Inch Clinical Height : 162.56 cm Body Surface Area (BSA), Routine : 1.87 m2 Body Mass Index (BMI), Routine : 30.8 kg/m2 Ze Holbrook Patient Wire Temperer I - 03/19/2022 6:27 EDT documented in this encounter Plan of Treatment Not on file documented as of this encounter Visit Diagnoses Not on filedocumented in this encounter
--- OUTSIDE RECORDS SUMMARY | 2025-02-21 13:45 | XMS_ITS | Encounter Summary ---
Author Organization [employer] Address [address] [place] [address] Care Team Providers Care Garment Supervisor Name Role Phone Unavailable Primary Care Provider Unavailabl e Encounter Details Date Type Department Care Team (Late st Contact Info) Description 02/23/2022 Transcribed Document [facility] [place] Family Medicine [address] [place] [address] ProviderFlorentino MD [address] [id number] Social History Tobacco Use Types Packs/Day Years Used Date Smoking Tobacco: Never Assessed Comments Unknown Sex and Gender Information Value Date Recorded Sex Assigned at Not on file Legal Sex Female 1:44 PM CDT Gender Identity Not on file Sexual Orientation Not on file documented as of this encounter Miscellaneous Notes * Cerner Conversion Note - Florentino Lynne MD - 02/23/2022 12:28 PM CDT Patient: ALYSSA AZUL Age: 61 years Sex: Female : 1960 Associated Diagnoses: None Author: MONSE KIM MD-INF ID follow up Referring Provider: Geneva Amezcua MD: Monse Kim MD Admit Date 02/22/2022 00:01 Reason for consultation: sepsis CC: respiratory failure [...] Treated with vancomycin and zosyn. Transferred to [facility] on 02/22 for higher level of care. She arrived intubated, sedated and on vasopressors. Since arrival she has been extubated to BiPAP, 35%. Weaned off vasopressors. T max 99.6. Family member at bedside. 02/23/22: She was reintubated last evening after eating and had emesis. No pressors today. She remains sedated. Per RN, suction morals of food from subglottic tube. No fevers. ROS: Unable to obtain due to critical illness. AllergiesAllergies (1) Active Reaction No Known Allergies None Documented Medications by Classification Antimicrobials piperacillin-tazobactam + Sodium Chloride 0.9% intravenous s - 2.25 Gram, IV Piggyback, Inj, Q8HInt, infuse over 3 Hour(s) Cardiovascular NORepinephrine 8 mg + Sodium Chloride 0.9% intravenous solut - Bag Volume (mL) = 250, Initial Rate: 0.05 mcg/kg/Min, IntraVENous, TITRATE, MAP Greater Than or Equal To 65 mmHg *Duplicate* Respiratory albuterol (albuterol 2.5 mg/3 mL (0.083%) inhalation solutio - 3 mL, Nebulized Inhalation, Inh, RT_Q4H, PRN for Shortness of Breath, Routine albuterol-ipratropium (albuterol-ipratropium 2.5 mg-0.5 mg/3 - 3 mL, Nebulized Inhalation, Inh, RT_Q4H, Routine GI ondansetron - 4 mg, IV Push, Inj, Q6H, PRN for Nausea/Vomiting, Routine pantoprazole - 40 mg, IV Push, Inj, Daily, Routine Endocrine glucose (Dextrose 50% injection) - [...] (See Comment), Routine Pain Meds fentaNYL - 50 mcg, IV Push, Inj, Q2H, PRN for Pain, Routine acetaminophen - 650 mg, Oral, Tab, Q6H, PRN for Pain (Mild 1-3), Routine traMADol - 50 mg, Oral, Tab, Q6H, PRN for Pain (Moderate 4-6), Routine Sedatives midazolam 100 mg + NaCl 0.9% Premix Diluent 100 mL - Bag Volume (mL) = 100, Initial Rate: 1 mg/Hr, IntraVENous, TITRATE, RASS Equal to 0, RASS Greater Than -1 Topical phenol topical (Chloraseptic Menthol 1.4% topical spray) - 1 [place], Oral, [place], Q2H, PRN for Sore Throat, Routine Vitamins potassium bicarbonate (potassium bicarbonate 20 mEq oral tab - 20 mEq 1 Tab, Oral, Tab, 1-Time, Routine sodium chloride (Normal Saline Flush) - 10 mL, IV Push, Inj, See Comment, PRN for IV Use, Routine sodium chloride (Normal Saline Flush) - 10 mL, IV Push, Inj, Q12H, Routine Undefined Medications glucagon - 1 mg, IntraMuscular, Inj, Q15Min, PRN for Other (See Comment), Routine insulin regular (insulin regular sliding scale) - Scale A, SubCutaneous, Inj, Q6H, Routine insulin regular 100 Units + Sodium Chloride 0.9% intravenous - 100 mL, Bag Volume (mL) = 100, IntraVENous NORepinephrine 8 mg + Sodium Chloride 0.9% intravenous solut - Bag Volume (mL) = 250, Initial Rate: 0.05 mcg/kg/Min, IntraVENous, TITRATE, MAP Greater Than or Equal To 65 mmHg Physical Examination:Vitals Signs (last 24 hrs) Last Charted Minimum Maximum Temp 98.0 (FEB 23 08:00) 98.0 (FEB 23 08:00) 99.6 (FEB 22 16:00) Mon HR 80 (FEB 23 11:42) 63 (FEB 22 21:00) 87 (FEB 22 16:37) Resp Rate 16 (FEB 23 11:42) 16 (FEB 23 08:15) H 54 (FEB 23 01:45) SBP 135 (FEB 23 10:30) 102 (FEB 22 18:45) H 179 (FEB 22 13:15) DBP 76 (FEB 23 10:30) L 51 (CATRACHITA 25 19:00) H 96 (CATRACHITA 25 12:30) MAP 99 (CATRACHITA 26 10:30) 74 (CATRACHITA 25 19:00) 118 (CATRACHITA 26 08:15) SpO2 100 (CATRACHITA 26 11:42) L 90 (CATRACHITA 25 12:30) 100 (CATRACHITA 25 18:45) General: Somnolent. intubated HENT: normocephalic, atraumatic Neck: Supple, non-tender, no cervical lymphadenopathy Lungs: Diminished at bases, but otherwise clear. on 35 % FIO2. Heart: Normal rate, regular rhythm, no murmur appreciated Abdomen: obese. Soft, non-tender Skin: no rash on visible skin. Reviewed images of large left gluteal ulceration, several centimeters deep to level of soft tissue. Dark discoloration of soft tissue throughout the wound bed Neurologic: sedated RUE PICC Labs:Labs (Last four charted values) WBC 6.5 (CATRACHITA 26) 8.9 (CATRACHITA 25) H 18.6 (CATRACHITA 24) HB L 7.9 (CATRACHITA 26) L 6.6 (CATRACHITA 26) L 8.1 (CATRACHITA 25) L 7.1 (CATRACHITA 25) HCT L 24.0 (CATRACHITA 26) L 20.5 (CATRACHITA 26) L 26.0 (CATRACHITA 25) L 22.9 (CATRACHITA 25) Plt 215 (CATRACHITA 26) 218 (CATRACHITA 25) H 373 (CATRACHITA 24) Na 146 (CATRACHITA 26) H 150 (CATRACHITA 26) H 147 (CATRACHITA 25) 146 (CATRACHITA 25) K L 3.3 (CARTACHITA 26) C 2.6 (CATRACHITA 26) 4.0 (CATRACHITA 25) 4.4 (CATRACHITA 25) Cl H 114 (CATRACHITA 26) H 118 (CATRACHITA 26) H 115 (CATRACHITA 25) H 120 (CATRACHITA 25) CO2 21 (CATRACHITA 26) L 20 (CATRACHITA 26) 21 (CATRACHITA 25) L 12 (CATRACHITA 25) BUN H 51 (CATRACHITA 26) H 53 (CATRACHITA 26) H 55 (CATRACHITA 25) H 50 (CATRACHITA 25) Cr H 3.04 (CATRACHITA 26) H 3.13 (CATRACHITA 26) H 3.11 (CATRACHITA 25) H 2.83 (CATRACHITA 25) Glu R 74 (CATRACHITA 26) H 121 (CATRACHITA 26) C 470 (CATRACHITA 25) H 229 (CATRACHITA 25) Ca L 6.8 (CATRACHITA 26) L 7.0 (CATRACHITA 26) L 6.7 (CATRACHITA 25) L 6.8 (FEB 22) Lactic 0.9 (FEB 22) 0.7 (FEB 22) AST 14 (FEB 23) 17 (FEB 21) ALT 16 (FEB 23) 21 (FEB 21) ALK P 53 (FEB 23) 76 (FEB 21) T Bili 0.4 (FEB 23) 0.3 (FEB 21) PTN L 5.9 (FEB 23) L 6.3 (FEB 21) ALB L 1.9 (FEB 23) L 1.9 (FEB 21) Creatinine Clearance (Current Encounter/Past 24 Hours) Creatinine Level 3.04 mg/dL HI 02/23/2022 10:19 Bun/Creatinine 16.8 02/23/2022 09:46 Estimated Creatinine Clearance 16.78 mL/Min 02/23/2022 09:46 Microbiology: [facility]: 02/20 left gluteal wound culture -- gram stain with <10 WBCs, few gram negative rods, rare gram positive cocci in pairs( put on chart) 02/21 blood cultures no growth so far 02/21 BAL gms: > 25 WBCs, gram negative diplococci [facility]: 02/22 blood cx no growth 02/22 gluteal wound culture no growth 02/23 respiratory culture pending Radiology: Radiology Results (Last 48 hours) [id number] -- 02/22/2022 00:01 CR Chest 1 Vw [...] transcribed report. CR Chest 1 Vw Portable (02/22/2022 19:23) [...] interpreted, and dictated by Jaycob Wynne MD I personally reviewed the above CXR: bibasilar opacities, slightly worse IMPRESSION: - Septic shock: Improved, now off vasopressors. Source presumed to be left gluteal wound but could also have been be pneumonia - Large left gluteal soft tissue infection, ulceration, necrosis, to level of soft tissue: Status post I&D x3 at [facility]. Cultures pending from there also [facility]. Dr. Cortez evaluated at [place] and did not think any additional intervention [...] pending blood, wound and BAL cultures from [facility] - Follow-up all pending cultures from [facility], so far negative - Follow CBC, CMP, CRP, vanc level - Vancomycin on hold, but level significantly elevated, greater than 50 mcg/mL, so will still provide coverage for quite some time. Will trend random levels and reevaluate ongoing need for MRSA coverage once they have dropped below therapeutic range - Continue Zosyn, renally dosed further broad-spectrum coverage for soft tissue infection and now aspiration pneumonia Will follow pending cultures and tailor therapy as indicated. So far hemodynamics and WBC improving on current regimen. [facility] to take over care starting tomorrow Dr. Kim obtained the history, performed the PE, formulated the above treatment plan I have edited this note to reflect my history, exam, assessment and plan. documented in this encounter Plan of Treatment Not on file documented as of this encounter Visit Diagnoses Not on filedocumented in this encounter
--- OUTSIDE RECORDS SUMMARY | 2025-02-21 13:45 | XMS_ITS | Encounter Summary ---
Author Organization [employer] Address [address] [place] [address] Care Team Providers Care Aluminum Siding Mechanic Name Role Phone Unavailable Primary Care Provider Nathalia martin Encounter Details Date Type Department Care Team (Late st Contact Info) Description 03/20/2022 Transcribed Document [facility] [place] Family Medicine [address] [place] [address] ProviderFlorentino MD [address] [place] [address] Social History Tobacco Use Types Packs/Day Years Used Date Smoking Tobacco: Never Assessed Comments Unknown Sex and Gender Information Value Date Recorded Sex Assigned at Not on file Legal Sex Female 1:44 PM CDT Gender Identity Not on file Sexual Orientation Not on file documented as of this encounter Miscellaneous Notes * Cerner Conversion Note - Historical ProviderMD - 03/20/2022 2:00 AM CDT Category Development Manager Details Entered On: 03/20/2022 1:31 EDT Performed On: 03/20/2022 2:00 EDT by Alma Howell RN Order Details Transport Mode Order Detail : Bed (including specialty) Isolation Precautions Order Detail : Standard Precautions Order Detail : 0 IV Order Detail : 0 Oxygen Order Detail : 1 Nurse Collect Order Detail : 1 Lift/Transfer : Maximal assist Central Line Order Detail : Yes Room Service : Not Appropriate Arterial Line : No Patient Needs Meds Crushed/Liquid : No Alma Howell RN - 03/20/2022 1:31 EDT documented in this encounter Plan of Treatment Not on file documented as of this encounter Visit Diagnoses Not on filedocumented in this encounter
--- OUTSIDE RECORDS SUMMARY | 2025-02-21 13:45 | XMS_ITS | Encounter Summary ---
Author Organization [employer] Address [address] [place] [address] Care Team Providers Care Ceramic Chemist Name Role Phone Unavailable Primary Care Provider Unavailabl e Encounter Details Date Type Department Care Team (Late st Contact Info) Description 04/12/2022 Transcribed Document [facility] [place] [address] [place] [address] ProviderFlorentino MD [address] [place] [address] Social History Tobacco Use Types Packs/Day Years Used Date Smoking Tobacco: Never Assessed Comments Unknown Sex and Gender Information Value Date Recorded Sex Assigned at Not on file Legal Sex Female 1:44 PM CDT Gender Identity Not on file Sexual Orientation Not on file documented as of this encounter Miscellaneous Notes * Cerner Conversion Note - Florentino Lynne MD - 04/12/2022 8:44 AM CDT Patient: ALYSSA AZUL Age: 61 Years Sex: Female : 1960 Subjective Patient remains in the ICU. Wore BiPAP overnight and this morning is on 2 L and maintaining saturations. Blood pressure has been elevated. Hemoglobin improved from 6.4-7.0 after transfusion yesterday. Only 200 mL of urine output documented in last 24 hours CRRT was stopped yesterday. Feels good has no complaints. Vital Signs T: 36.7 ??C TMIN: 36.7 ??C TMAX: 38.1 ??C HR: 53(Monitored) RR: 19 BP: 179/73 BP: 164/58(Line) SpO2: 100% HT: 167.64 cm WT: 84.3 kg BMI: 30 Oxygen Settings (Last) Oxygen Therapy Mode: Nasal cannula (04/12/22 08:00:00) Oxygen Flow Rate: 2 Liter/Min (04/12/22 08:00:00) Intake & Output Totals Last 24 Hours (7a-7a) Input Total: 1578.78 mL Output Total: 210 mL Balance: 1368.78 mL Physical Exam General: Alert, obese, weak, [...] mood and affect Assessment/Plan #Severe septic shock (POA)?improving Hypothermia, lactic acidosis, leukocytosis, JAVIER, respiratory failure Source wound, UTI ID following: Zyvox, meropenem, micafungin Wound culture + Citrobacter koseri, staph aureus, Corynebacterium species Urine culture + Pseudomonas, E coli Vasopressors weaned off 04/11 Stress steroids discontinued #Acute hypoxic respiratory failure?improving Intubated on 04/08, extubated 04/[address] chest with trace right effusion Pneumonia PCR negative Continue to wean oxygen #Acute on chronic renal failure stage III With hyperkalemia and anion gap metabolic Acidosis Likely ATN from shock Has a solitary kidney, baseline creatinine 1.4-1.6 Nephrology following Hyper-K treated and resolved S/p bicarb drip Temporary dialysis catheter placed 04/08 and started on CRRT CRRT stopped 04/11 #Encephalopathy--improving Due to severe septic shock, renal failure, acidosis, elevated ammonia (resolved) #Pancreatitis? No changes found on CT scan but [...] perineal ice pads #Diabetes S/p insulin drip Glargine 12 units BID, SSI #Paraplegia Aggressive PT/OT #Hypertension Amlodipine started by critical care Hold beta-carmen with bradycardia Hydralazine PRN #Dysphagia Speech following Corpak and tube feeds for now Disposition: Still hospitalized due to -off vasopressor since yesterday. Now actually hypertensive and started on medication. Off of CRRT. Nephrology evaluating daily for dialysis needs. Okay to transfer out of ICU if cleared by other specialist. At d/c will likely need - abx, oxygen, PT Tentatively at d/c will be going to - SNF Expected d/c date - TBD VTE Prophylaxis - Medical Heparin 5,000 Units, SubCutaneous, Inj, Q8H, Routine, Start 04/08/22 14:00:00 EDT, 04/08/22 10:47:00 EDT (DILMA BROWN) Medications calcium gluconate, 2 Gram= 100 mL, IV Piggyback, Q1H, PRN calcium gluconate, 1 Gram= 100 mL, [...] sulfate, 325 mg= 1 Tab, Oral, BID glucagon, 1 mg= 1 mL, IntraMuscular, Q15Min, PRN glucose 4 g oral tablet, chewable, 16 Gram= 4 Tab, Chew, Q15Min, PRN glucose 40% oral gel, 15 Gram= 37.5 mL, Oral, Q15Min, PRN heparin, 5000 Units= 1 mL, SubCutaneous, Q8H hydrocortisone, 50 mg= 1 mL, IV Push, Q6H insulin glargine, 10 Units= 0.1 mL, SubCutaneous, BID insulin regular sliding scale, Scale C, SubCutaneous, Q6H magnesium sulfate, 2 Gram= 50 mL, IV Piggyback, Q1H, PRN meropenem + Sodium Chloride 0.9% intravenous solution 50 mL micafungin NORepinephrine injection 16 mg + NaCl 0.9% for drip 250 mL Pepcid, 20 mg= 2 mL, [...] mEq= 50 mL, IV Piggyback, Q30Min, PRN sodium phosphate sodium phosphate + Sodium Chloride 0.9% intravenous solution 250 mL Tylenol, 650 mg= 2 Tab, Oral, Q6H, PRN vasopressin injection 40 Units [0.03 Units/min] + Dextrose 5% in Water intravenous solution 100 mL Zofran, 4 mg= 2 mL, IV Push, Q6H, PRN Zyvox, 600 mg= 300 mL, IV Piggyback, [id number] Lab Results Test Name Test Result Date/Time Sodium Level 136 mmol/L 04/12/2022 04:30 EDT Sodium Level 136 mmol/L 04/12/2022 01:17 EDT Sodium Level 135 mmol/L (Low) 04/11/2022 16:57 EDT Potassium Level 3.9 mmol/L 04/12/2022 04:30 EDT Potassium Level 3.8 mmol/L 04/12/2022 01:17 EDT Potassium Level 3.9 mmol/L 04/11/2022 16:57 EDT Chloride Level 106 mmol/L 04/12/2022 04:30 EDT Chloride Level 107 mmol/L 04/12/2022 01:17 EDT Chloride Level 105 mmol/L 04/11/2022 16:57 EDT Carbon Dioxide Level 23 mmol/L 04/12/2022 04:30 EDT Carbon Dioxide Level 23 mmol/L 04/12/2022 01:17 EDT Carbon Dioxide Level 22 mmol/L 04/11/2022 16:57 EDT Anion Gap 11 04/12/2022 04:30 EDT Anion Gap 10 04/12/2022 01:17 EDT Anion Gap 12 04/11/2022 16:57 EDT Glucose Level 245 mg/dL (High) 04/12/2022 04:30 EDT Glucose Level 186 mg/dL (High) 04/12/2022 01:17 EDT Glucose Level 148 mg/dL (High) 04/11/2022 16:57 EDT Blood Urea Nitrogen 15 mg/dL 04/12/2022 04:30 EDT Blood Urea Nitrogen 13 mg/dL 04/12/2022 01:17 EDT Blood Urea Nitrogen 7 mg/dL 04/11/2022 16:57 EDT Creatinine Level 1.30 mg/dL (High) 04/12/2022 04:30 EDT Creatinine Level 1.10 mg/dL (High) 04/12/2022 01:17 EDT Creatinine Level 0.60 mg/dL 04/11/2022 16:57 EDT eGFR 50 mL/min/1.73m2 (Low) 04/12/2022 04:30 EDT eGFR >60 mL/min/1.73m2 04/12/2022 01:17 EDT eGFR >60 mL/min/1.73m2 04/11/2022 16:57 EDT eGFR NonAfrican 42 mL/min/1.73m2 (Low) 04/12/2022 04:30 EDT eGFR NonAfrican 50 mL/min/1.73m2 (Low) 04/12/2022 01:17 EDT eGFR NonAfrican >60 mL/min/1.73m2 04/11/2022 16:57 EDT Bun/Creatinine 11.5 04/12/2022 04:30 EDT Bun/Creatinine 11.8 04/12/2022 01:17 EDT Bun/Creatinine 11.7 04/11/2022 16:57 EDT Calcium Level 8.2 mg/dL (Low) 04/12/2022 04:30 EDT Calcium Level 7.8 mg/dL (Low) 04/12/2022 01:17 EDT Calcium Level 7.8 mg/dL (Low) 04/11/2022 16:57 EDT Protein Total 5.6 Gram/dL (Low) 04/12/2022 04:30 EDT Albumin Level 2.3 Gram/dL (Low) 04/12/2022 04:30 EDT Albumin Level 2.2 Gram/dL (Low) 04/12/2022 01:17 EDT Albumin Level 2.3 Gram/dL (Low) 04/11/2022 16:57 EDT Globulin 3.3 Gram/dL 04/12/2022 04:30 EDT A/G Ratio 0.7 (Low) 04/12/2022 04:30 EDT Bilirubin Total 0.4 mg/dL 04/12/2022 04:30 EDT Alk Phos 66 Units/Liter 04/12/2022 04:30 EDT AST 20 Units/Liter 04/12/2022 04:30 EDT ALT 18 Units/Liter 04/12/2022 04:30 EDT Magnesium Level 2.5 mg/dL (High) 04/12/2022 04:30 EDT Ammonia Level 26.0 uMol/L 04/12/2022 04:30 EDT Phosphorus 3.5 mg/dL 04/12/2022 04:30 EDT Phosphorus 3.6 mg/dL 04/12/2022 01:17 EDT Phosphorus 3.3 mg/dL 04/11/2022 16:57 EDT Device Comment 1 Notified Nurse RBV 04/12/2022 05:28 EDT Device Comment 1 Notified Nurse RBV 04/12/2022 01:00 EDT Device Comment 1 Notified Nurse RBV 04/11/2022 17:27 EDT Device Comment 1 Notified Nurse RBV 04/11/2022 11:43 EDT Glucose POC2 223 mg/dL (High) 04/12/2022 05:28 EDT Glucose POC2 167 mg/dL (High) 04/12/2022 01:00 EDT Glucose POC2 144 mg/dL (High) 04/11/2022 17:27 EDT Glucose POC2 117 mg/dL (High) 04/11/2022 11:43 EDT Lactic Acid Level 0.7 mmol/L 04/12/2022 04:30 EDT Calcium Ionized 1.17 mmol/L 04/12/2022 04:30 EDT Calcium Ionized 1.16 mmol/L 04/11/2022 22:30 EDT Calcium Ionized 1.12 mmol/L 04/11/2022 16:57 EDT WBC 7.3 K/uL 04/12/2022 04:30 EDT WBC 8.2 K/uL 04/11/2022 16:57 EDT RBC 2.48 Million/uL (Low) 04/12/2022 04:30 EDT RBC 2.48 Million/uL (Low) 04/11/2022 16:57 EDT Hgb 7.1 g/dL (Low) 04/12/2022 04:30 EDT Hgb 7.0 g/dL (Low) 04/11/2022 16:57 EDT Hct 21.8 % (Low) 04/12/2022 04:30 EDT Hct 21.4 % (Low) 04/11/2022 16:57 EDT MCV 87.9 fL 04/12/2022 04:30 EDT MCV 86.3 fL 04/11/2022 16:57 EDT MCH 28.6 pg 04/12/2022 04:30 EDT MCH 28.2 pg 04/11/2022 16:57 EDT MCHC 32.6 Gram/dL 04/12/2022 04:30 EDT MCHC 32.7 Gram/dL 04/11/2022 16:57 EDT Platelet Count 113 K/uL (Low) 04/12/2022 04:30 EDT Platelet Count 111 K/uL (Low) 04/11/2022 16:57 EDT MPV 10.3 fL 04/12/2022 04:30 EDT MPV 9.5 fL 04/11/2022 16:57 EDT RDW 16.1 % (High) 04/12/2022 04:30 EDT RDW 16.0 % (High) 04/11/2022 16:57 EDT Neut % 88.6 % (High) 04/12/2022 04:30 EDT Neut # 6.47 K/uL (High) 04/12/2022 04:30 EDT Lymph % 7.4 % (Low) 04/12/2022 04:30 EDT Lymph # 0.54 x10(3)/uL (Low) 04/12/2022 04:30 EDT Mineral % 3.1 % 04/12/2022 04:30 EDT Mineral # 0.23 K/uL 04/12/2022 04:30 EDT Eos % 0.0 % 04/12/2022 04:30 EDT Eos # 0.00 x10(3)/uL 04/12/2022 04:30 EDT Baso % 0.1 % 04/12/2022 04:30 EDT Baso # .01 x10(3)/uL 04/12/2022 04:30 EDT nRBC 0.030 (High) 04/12/2022 04:30 EDT nRBC 0.030 (High) 04/11/2022 16:57 EDT Slide Review No 04/12/2022 04:30 EDT Slide Review No 04/11/2022 16:57 EDT IG# 0.06 x10(3)/uL (High) 04/12/2022 04:30 EDT IG% 0.80 % (High) 04/12/2022 04:30 EDT Procalcitonin 0.36 ng/mL 04/12/2022 04:30 EDT Electronically signed by Sumaay, [facility] [employer] W[employer] Cerner at 12/21/2022 5:09 PM CDT documented in this encounter Plan of Treatment Not on file documented as of this encounter Visit Diagnoses Not on filedocumented in this encounter
--- OUTSIDE RECORDS SUMMARY | 2025-02-21 13:45 | XMS_ITS | Encounter Summary ---
Author Organization [employer] Address [address] [place] [id number] Care Team Providers Care Assistant Attorney General Name Role Phone Unavailable Primary Care Provider Unavailabl e Encounter Details Date Type Department Care Team (Late st Contact Info) Description 03/19/2022 Transcribed Document [facility] [place] Family Medicine [address] [place] [address] ProviderFlorentino MD [address] [place] [address] Social History Tobacco Use Types Packs/Day Years Used Date Smoking Tobacco: Never Assessed Comments Unknown Sex and Gender Information Value Date Recorded Sex Assigned at Not on file Legal Sex Female 1:44 PM CDT Gender Identity Not on file Sexual Orientation Not on file documented as of this encounter Miscellaneous Notes * Cerner Conversion Note - Florentino Lynne MD - 03/19/2022 9:07 PM CDT Patient: ALYSSA AZUL Age: 61 years Sex: Female : 1960 Associated Diagnoses: None Author: HIGINIO AREVALO MD-INF Antibiotics: augmentin and doxy CC: Sacral wound Subjective: Patient without acute changes with no fevers and HD stable. Plans for discharge soon Objective: Vitals Signs (last 24 hrs) Last Charted Minimum Maximum Temp 98.7 (MAR 19 17:21) 97.9 (MAR 19 06:00) 99 (MAR 18 22:00) Mon HR 65 (MAR 19 21:00) 65 (MAR 19 21:00) 89 (MAR 18 22:00) Resp Rate 18 (MAR 19 21:00) 14 (MAR 18 22:00) H 22 (MAR 19 03:31) SBP H 141 (MATIAS 20 17:21) 125 (MAR 19 04:00) H 145 (MAR 18 22:00) DBP 68 (MAR 19 17:21) 67 (MAR 19 04:00) 79 (MAR 18 22:00) MAP 86 (MAR 19 06:00) 86 (MAR 19 04:00) 96 (MAR 18 22:00) SpO2 99 (MAR 19 21:00) 95 (MAR 18 23:55) 99 (MAR 19 20:17) PE: General: Patient will awaken and more [...] LABS: Labs (Last four charted values) WBC 7.0 (MAR 19) 7.1 (MAR 18) 6.5 (MAR 17) 6.4 (MAR 16) HB L 8.0 (MAR 19) L 7.4 (MAR 18) L 7.6 (MAR 17) L 7.7 (MAR 16) HCT L 25.6 (MAR 19) L 23.7 (MAR 18) L 24.2 (MAR 17) L 24.3 (MAR 16) Plt 170 (MAR 19) L 147 (MAR 18) L 135 (MAR 17) L 137 (MAR 16) Na 138 (MAR 19) 140 (MAR 18) 141 (FEB 18) 138 (MAR 16) K 4.4 (MAR 19) 4.5 (MAR 18) 4.4 (MAR 17) 4.1 (MAR 16) Cl 112 (MAR 19) 112 (MAR 18) 111 (MAR 17) 108 (MAR 16) CO2 L 20 (MAR 19) L 19 (MAR 18) 22 (MAR 17) 22 (MAR 16) BUN H 39 (MAR 19) H 43 (MAR 18) H 51 (MAR 17) H 56 (MAR 16) Cr H 1.40 (MAR 19) H 1.50 (MAR 18) H 1.60 (MAR 17) H 1.70 (MAR 16) Glu R 105 (MAR 19) H 142 (MAR 18) H 176 (MAR 17) H 133 (MAR 16) Ca 8.9 (MAR 19) 9.1 (MAR 18) 9.1 (MAR 17) 9.0 (MAR 16) Lactic 0.5 (MAR 09) 0.5 (MAR [...] at [facility] with large open wound. -Acute hypoxic respiratory failure now extubated -Aspiration pneumonia - Cardiac arrest at outside hospital prior to transfer - CKD chain puller at 1.8 - Anemia - paraplegia - Obesity - DM2 RECOMMENDATIONS/PLANS: - continue doxy 100 mg po bid x 2 weeks and Augmentin 500/125 mg po bid x 12 days -chain puller down. - looking at d/c options complicated. at risk for recurrent infections and aspiration. documented in this encounter Plan of Treatment Not on file documented as of this encounter Visit Diagnoses Not on filedocumented in this encounter
--- OUTSIDE RECORDS SUMMARY | 2025-02-21 13:45 | XMS_ITS | Encounter Summary ---
Author Organization [employer] Address [address] [place] [address] Care Team Providers Care Brick Offbearer Name Role Phone Unavailable Primary Care Provider Unavailabl e Encounter Details Date Type Department Care Team (Late st Contact Info) Description 02/23/2022 Transcribed Document [facility] [place] [address] [place] [address] ProviderFlorentino MD [address] [place] [address] Social History Tobacco Use [...] Note - Florentino Lynne MD - 02/23/2022 12:14 PM CDT Patient: ALYSSA AZUL Age: 61 [...] had cardiac arrest and was transferred to [facility]. This morning she was on the [...] has now maintained adequately. Na status improving. Health Status Allergies: Allergic Reactions (Selected) No Known Allergies, Allergies (1) Active Reaction No Known Allergies None Documented Current medications: (Selected) Inpatient Medications Ordered Chloraseptic Menthol 1.4% topical spray: 1 Bertha, Oral, Q2H, PRN: Sore Throat Dextrose 50% [...] inhalation solution: 3 mL, Nebulized Inhalation, RT_Q4H fentaNYL: 50 mcg, IV Push, Q2H, PRN: Pain glucagon: 1 mg, IntraMuscular, Q15Min, PRN: Other (See Comment) glucose 4 g oral tablet, chewable: 16 Gram, 4 Tab, Chew, Q15Min, PRN: Other (See Comment) glucose 40% oral gel: 15 Gram, 37.5 mL, Oral, Q15Min, PRN: Other (See Comment) insulin regular sliding scale: Scale A, SubCutaneous, Q6H midazolam 100 mg + NaCl 0.9% Premix Diluent 100 mL: TITRATE, IntraVENous ondansetron: 4 mg, IV Push, Q6H, PRN: Nausea/Vomiting pantoprazole: 40 mg, IV Push, Daily potassium bicarbonate 20 mEq oral tablet, effervescent: 20 mEq, 1 Tab, Oral, 1-Time traMADol: 50 mg, Oral, Q6H, PRN: Pain (Moderate 4-6) Pending Complete pneumococcal 23-polyvalent vaccine: 0.5 mL, IntraMuscular, [id number] Documented Medications Documented Knifley-3 1000 mg oral capsule: 1 Cap, Oral, [...] 1 Tab, Oral, Daily, 0 Refill(s), Medications (21) Active Scheduled: (6) #NaCl 0.9% *FLUSH* inj 10 mL 10 mL, IV Push, Q12H albuterol-ipratropium inh 3 mL 3 mL, Nebulized Inhalation, RT_Q4H insulin regular 1 unit/0.01 mL inj 3mL Scale A, SubCutaneous, Q6H pantoprazole 40 mg inj 40 mg, IV Push, Daily piperacillin-tazobactam + NaCl 0.9% *ADV* 50 mL 2.25 Gram, IV Piggyback, Q8HInt potassium bicarb efferves 20 mEq dis tab 20 mEq 1 Tab, Oral, 1-Time Continuous: (3) insulin regular 100 Units + NaCl 0.9% [...] Push, Q6H phenol 1.4% throat spray 1 Bertha, Oral, Q2H traMADol 50 mg tab 50 mg 1 Tab, Oral, Q6H Problem list: Medical History of obstructive sleep apnea / IMO [id number] / Confirmed, Active Problems (1) History of [...] Output Totals Last 24 Hours (7a-7a) Intake (60 Events) Continuous Infusions (644.77 mL) Medications (832.29 mL) Enteral Additional Water Given (500 mL) Oral Intake (150 mL) Output (11 Events) Urine Voided (Volume) (1945 mL) Input Total: 2127.06 mL Output Total: 1945 mL Balance: 182.06 mL VS/Measurements Vitals Signs (last 24 hrs) [...] DBP 76 (FEB 23 10:30) L 51 (FEB 22 19:00) H 96 (FEB 22 12:30) MAP 99 (FEB 23 10:30) 74 (FEB 22 19:00) 118 (FEB 23 08:15) SpO2 100 (FEB 23 11:42) L 90 (FEB 22 12:30) 100 (FEB 22 18:45) General: intubated, sedated. Eye: Pupils are equal, round and reactive to light, Normal conjunctiva. HENT: Normocephalic, Oral mucosa is moist. Neck: Supple, Non-tender. Respiratory: Respirations are non-labored, Breath sounds are equal, coarse bs bilat. Cardiovascular: Normal rate, Regular rhythm. Gastrointestinal: Soft, Non-tender, Non-distended, Normal bowel sounds. Musculoskeletal: Normal range of motion, Normal strength, No tenderness, contractures. Integumentary: Warm, Dry, [place], No rash. Neurologic: Alert, Oriented, paraplegia, bilat upper ext weakness. Orientation: To person, To place, To time. Psychiatric: Cooperative, Appropriate mood & affect, Normal judgment. Review / Management FEB 23 09:00 146 H 114 H 51 / 74 L 3.3 21 H 3.04 \ FEB 23 09:00 \ L 7.9 / 6.5 215 / L 24.0 \ Blood Gases (Current Encounter/Past 24 Hours) pH Art 7.45 02/23/2022 05:18 pCO2 Art 30.5 LOW 02/23/2022 08:56 pO2 Art 113.0 HI 02/23/2022 08:55 HCO3 Art 20.9 02/23/2022 05:18 BE Art -2.3 LOW 02/23/2022 08:56 sO2 Art 98.4 02/23/2022 05:18 tHb Art 6.8 LOW 02/23/2022 08:56 ctO2 9.5 NA 02/23/2022 05:18 FIO2 Art 40.0 NA 02/23/2022 05:18 Delivery Device Type Art Ventilator 02/23/2022 05:18 Temperature, F Art 98.6 NA 02/23/2022 05:18 Art Blood Gas (ABG) Site Right Radial 02/23/2022 05:18 Acceptable Huang's Test Art Acceptable 02/23/2022 05:18 Ventilator Mode Art Assist Control Ventilation 02/23/2022 05:18 Tidal Volume Set Art 400.0 NA 02/23/2022 05:18 Set Rate Art 20 NA 02/23/2022 05:18 Respiratory Rate Art 20.0 NA 02/23/2022 05:18 CPAP/PEEP Art 5.0 NA 02/23/2022 05:18 Comment Art bipap 12/6 NA 02/22/2022 15:41 ABG Num of Draw Attempts 1 NA 02/23/2022 05:18 PaO2/FiO2 calculated 282 NA 02/23/2022 05:18 CMP Results (Current Encounter/Past 24 Hours) Protein Total 5.9 Gram/dL LOW 02/23/2022 03:53 A/G Ratio 0.5 LOW 02/23/2022 03:53 Creatinine Level 3.04 mg/dL SD 02/23/2022 09:46 eGFR 19 mL/min/1.73m2 LOW 02/23/2022 09:46 Globulin 4.0 Gram/dL 02/23/2022 03:53 eGFR NonAfrican 16 mL/min/1.73m2 LOW 02/23/2022 09:46 Bun/Creatinine 16.8 02/23/2022 09:46 Sodium Level 146 mmol/L 02/23/2022 09:46 Potassium Level 3.3 mmol/L LOW 02/23/2022 09:46 Chloride Level 114 mmol/L SD 02/23/2022 09:46 Carbon Dioxide Level 21 mmol/L 02/23/2022 09:46 Anion Gap 14 02/23/2022 09:46 Alk Phos 53 Units/Liter 02/23/2022 03:53 ALT 16 Units/Liter 02/23/2022 03:53 AST 14 Units/Liter 02/23/2022 03:53 Blood Urea Nitrogen 51 mg/dL SD 02/23/2022 09:46 Glucose Level 74 mg/dL 02/23/2022 09:46 Albumin Level 1.9 Gram/dL LOW 02/23/2022 03:53 Bilirubin Total 0.4 mg/dL 02/23/2022 03:53 Calcium Level 6.8 mg/dL LOW 02/23/2022 09:46 Magnesium Level 1.8 mg/dL 02/23/2022 09:47 Cardiac Markers (Current Encounter/Past 24 Hours) CK 119 Units/Liter 02/22/2022 00:55 ProBNP 88559 pg/mL HI 02/22/2022 00:55 Coagulation Results (Current Encounter/Past 24 Hours) No Coagulation Results Found (Past 24 Hours) Radiology Results (Last 48 hours) [id number] -- 02/22/2022 00:01 CR Chest 1 Vw [...] interpreted, and dictated by Jaycob Wynne MD Results review: Labs (Last four charted values) WBC 6.5 (CATRACHITA [...] 25) 146 (CATRACHITA 25) K L 3.3 (CATRACHITA 26) C 2.6 (CATRACHITA [...] 26) C 470 (CATRACHITA 25) H 229 (FEB 22) Ca L 6.8 (FEB 23) L 7.0 (FEB 23) L 6.7 (FEB 22) L 6.8 (FEB 22) Lactic 0.9 (FEB [...] to baseline Acute respiratory failure - MV D#2, not able to try PS again today due to sedation. Will attempt SBT again tomorrow Sepsis, septic shock - resolved Acute - chronic renal failure - Cr increased from baseline, but appears to be stabilizing. Nephrology following. Now with adequate UOP Acute metabolic acidsois - Much improved Acute anemia - no active bleeding. s/p 1unit PRBC 02/23 Hypernatremia, hyperchloremia - over correction with bicarb which is now on hold. Started on free water via NGT with improvement. Monitoring. LLL pneumonia - continue HHN, ID consulted for abx. Continue to hold vanc Left hip decub - surgery consulted for wound care. Abx per ID. Vanc stopped due to elevated levels and worsening renal function. No MRSA cultures or history of MRSA. DM - given steroids overnight - now stopped. Start SSI. Given single dose of lantus. AG not elevated. Able to wean off insulin gtt. Resume insulin SSI HTN - bp rx on hold, May need to restart with decreased sedation hyperlipidemia paraplegia Full code GI ppx - started on PPI DVT ppx - started on heparin sq 60 min CCT Discussed with nursing, RT. documented in this encounter Plan of Treatment Not on file documented as of this encounter Visit Diagnoses Not on filedocumented in this encounter
--- OUTSIDE RECORDS SUMMARY | 2025-02-21 13:45 | XMS_ITS | Encounter Summary ---
Author Organization [facility] [facility] [place] [facility] Address [address] [place] [address] Care Team Providers Care Optimization Specialist Name Role Phone Unavailable Primary Care Provider Unavailabl e Encounter Details Date Type Department Care Team (Late st Contact Info) Description 04/25/2022 Transcribed Document [facility] [place] [address] [place] [address] ProviderFlorentino MD [address] [place] [address] Social History Tobacco Use Types Packs/Day Years Used Date Smoking Tobacco: Never Assessed Comments Unknown Sex and Gender Information Value Date Recorded Sex Assigned at Not on file Legal Sex Female 1:44 PM CDT Gender Identity Not on file Sexual Orientation Not on file documented as of this encounter Miscellaneous Notes * Cerner Conversion Note - Florentino Lynne MD - 04/25/2022 5:23 PM CDT On Going Discharge Planning Entered On: 04/25/2022 17:27 EDT Performed On: 04/25/2022 17:23 EDT by EMIL GIRALDO RN - Data Entry ClerkHigh School Music Instructor Progress Note Discharge Arrangements : Patient Post-Acute Information Patient Name: ALYSSA MAYORGA Gender: Female : 60 Age: 61 Years No Post-Acute Placement(s) Listed No Post-Acute Service(s) Listed No Curaspan Referral(s) Listed Discharge Options Discussed with Patient : Home Health, group home Barriers to Discharge Identified : Clinical Condition of Patient Barriers to Discharge Unresolved : Clinical Condition of Patient Patient Discharge Goal : Home health care Patient Offered Choice/Affiliations Explained : Yes EMIL GIRALDO RN - Data Entry Clerk - 04/25/2022 17:23 EDT Narrative Progress Note Narrative Progress Note : Patient needs a wheelchair. [facility] does have them for rent. $89 a month. Open Sat. 9-1. Allyn with [facility] also said she could loan the patient a wheelchair until may.09 and if she needed it longer they could rent it. If patient wants to do this just contact Allyn with [facility]. Historical Progress Note : ERIC has been notified that the patient now has Medicaid [place] instead of [place]. Eric has called Xenia with [facility] and sent a referral for them to change her wound vac and social work. ERIC talked with the patient's daughter in law Divine who is very upset about the discharge. ERIC tried to explain that the reason we were unable to get HH before was the insurance. ERIC let Dr. King know about no discharge until tomorrow and [facility] for hh now. Now CM has been notified that they could not rent a wheelchair. CM called [facility] but Allyn said they no longer rent wheelchairs. She is reaching out to her supervisor filter assembly. Qukwnlea-mv-wrl told ERIC that she wanted the hospital to pay for the wheelchair rental. EMIL GIRALDO RN - Data Entry Clerk - 04/25/22 16:54:24 [facility] has been notified that the patient now has [place]. Eric has called Xenia with [facility] and sent a referral for them to change her wound vac and social work. ERIC talked with the patient's daughter in law Divine who is very upset about the discharge. ERIC tried to explain that the reason we were unable to get HH before was the insurance. ERIC let Dr. King know about no discharge until tomorrow and [facility] for hh now. Now [facility] has been notified that they could not rent a wheelchair. ERIC called [facility] but Allyn said they no longer rent wheelchairs. She is reaching out to her supervisor filter assembly. Etgpvxfx-uw-qut told ERIC that she wanted the hospital to pay for the wheelchair rental. EMIL GIRALDO, RN - Data Entry Clerk - 04/25/22 16:57:15 RRS High Day 15/01 ERIC spoke with Lavonne with [employer] [phone]. She stated that [facility] is signing the PT orders for the patient's new wheelchair but it will be up to 30 days before it can be delivered. Patient is aware and per patient her son is going to curing pickling packer a rental wheelchair on Thursday for her. Patient should discharge on the AKANKSHA per wound care so CM spoke with [facility] wound care [phone] and they said they could see the patient for her wound vac changes. Cm will need to fax the orders to [phone]. Possible discharge Thu/ with son to transport. See previous note for more information. EMIL GIRALDO, RN - Data Entry Clerk - 04/25/22 12:36:30 CMs first day with this patient. CM talked with her this morning and she still wants to go home with her son to [address] [place] [address]. She needs a wheelchair and the process to get one ordered was started at [facility]. CM contacted them this morning and they are working on getting that signed off and ordered. CM contacted wound care because her AKANKSHA wound vac has been having a lot of drainage and we need to know if she can go home on the akanksha or will need a full size wound vac. Waiting for wound care guidance. Eric also spoke with ID doctor. Patient cannot leave with her IJ and and not appropriate for a PICC. Last day of IV abx is . Possible set up at [facility] for peripheral? ID will make a decision on this, no orders at this time. Discharge pending: wheelchair (pt is paraplegic), wound vac decision, IV abx decision. EMIL GIRALDO RN - Data Entry Clerk - 04/25/22 08:49:04 Pt will only be able to do outpatient services at [facility] Pt can't have PICC so concern about if [facility] willing to do IV abx with only peripheral IVs CM was told that akanksha drain was put out significant drainage & may need to revert back to wound vac Due to uncertainty of wound vs akanksha drain, CM has not pursued [facility] for wound care Son confirms he can take pt for care CM will try to final DC plans once akanksha vs wound vac determined CM will continue to follow Adalid Castro, HOSPITALITY TEAM MEMBER NON-EXEMPT - 04/24/22 16:39:25 ERIC was unable to find services for pt Pt still declines [facility] offer to start percert Pt plans to go home with family Wound vac has now been changed to akanksha drain Son said he can transport pt to [facility] weekly for akanksha drain changes IV abx ends 2022 DC plan is home with family plus outpt follow up CM will continue to follow Adalid Castro HOSPITALITY TEAM MEMBER NON-EXEMPT - 04/23/22 16:05:54 Pt had DC [...] to insurance & area Son lives in [place], [place] Pending issues: wound vac, IV abx & HH services CM will continue to follow Adalid Castro HOSPITALITY TEAM MEMBER NON-EXEMPT - 04/22/22 16:43:07 Cm spoke with [...] going to facility if it is in [place]. Cm faxed to [facility] per permission from family. CM will continue to follow. ERIK GALARZA, Park Aide-Timber Trimmer - 04/18/22 13:51:52 Patient has been declined by all HH agencies. CM spoke to patient is open to [facility] however, [facility] does not have an open bed [...] CM will continue to follow. ERIK GALARZA, Park Aide-Timber Trimmer - 04/17/22 14:39:18 Patient requested CM speak with her daughter in law. Cm spoke with DIN who reported patient wants to discharge home with HH and DME. She will need a BSC for sure. If possible she would like to have a new CPAP as her's is old and needs replaced. Unsure of company name but maybe [employer]. Patient has all other DME. Patient does not have a preference of HH agency but wants it to be in area and with insurance. CM will continue to follow and set up DME and HH. ERIK GALARZA, Park Aide-Timber Trimmer - 04/16/22 15:45:27 home health referral made to [facility] to assist with HH placement. very few HH agencies participate with pt's insurance so wound vac may need management at wound clinic. pt may have to do outpt PT is she delines snf-swing bed-ltach. TRISTAN TAYLOR, RN-Data Entry Clerk - 04/15/22 12:07:49 RRS HIGH, LOS 7, ELOS 5 Swuikx-odd-opk-sbwymvyegsyo-vrecgaeaseqp-oalbmmzkp acidosis HX paraplegia since age 8 L. trochanter-- 11.0cmx6.5cmx2.0cm-current with wound vac CRRT off since 04/11-- possible catheter removal 8.16 Tkets0iaklxleenx-tminfkuih Pt was discharged to [facility] in 03.21. family refuses to return to [facility] and [facility] declined to accept back. Spoke with pt and she wishes to dc home with her son. She will need HH, PT for transfers as PLOF was independent, she will need wound vac and son will provide transportation. APS following: Aimee Payne, TRISTAN TAYLOR, RN-Data Entry Clerk - 04/15/22 11:57:48 HD# 3. elos: 5. rar: high acute hypoxic resp failure. severe sepsis: shock. campos/ckd. acute pancreatitis. diabetes. paraplegia. covid 19: negative 8-9. bipap 30%/ra. zyvox/merrem/micafungin iv. wound vac: left trochanter. corpak tube feeds. PT/OT: eob. ST: cleared for diet. no dialysis. APS following: Aimee Payne, . left message with updates. dcp: family decline return to [facility]. new referral [facility]. sent [facility]. spoke with jesus alberto, it coordintor. they hope she will improve to dc home with them in [place]. FREDO, son, legal next of kin: [phone] Divine, daughter in law: [phone] SHERIF PAYNE, RN-Data Entry Clerk - 04/14/22 10:45:05 HD# 3. elos: 5. rar: high acute hypoxic resp failure. severe sepsis: shock. campos/ckd. acute pancreatitis. diabetes. paraplegia. covid 19: negative 8-9. extubated 8-. 02 4L nc. crrt. levophed gtt. bicarb gtt. zyvox/merrem/micafungin iv. wound vac: left trochanter. APS following: Aimee Payne, . dcp: family decline return to [facility]. they hope she will improve to dc home with them in [place]. not ltac candidate at this time due to crrt. FREDO, son, legal next of kin: [phone] Divine, daughter in law: [phone] SHERIF PAYNE, RN-Data Entry Clerk - 04/11/22 09:13:49 late entry for this am. Aimee Payne, [facility] community mental health social worker was on site this am. she spoke with Andrés, bedside rn, interviewed pt's son and spoke with Ms. mayorga who was awake on ventilator. she left number for claudia Groves sound to call her at Yaneli's convenience. provided medical records as requested. SHERIF PAYNE, RN-Data Entry Clerk - 04/10/22 15:40:22 HD# 2. elos: 5. rar: high acute hypoxic resp failure. severe sepsis: shock. campos/ckd. acute pancreatitis. diabetes. paraplegia. covid 19: negative 8-9. following commads. mechanical ventilation. crrt. fentanyl gtt. insulin gtt. levophed gtt. evaluation Dr Abraham, power press tender. see her notes. no vaginal laceration. return call from Gayathri Pimentel, . she contacted lorrie Cohen for [facility], [facility], [facility] with family concerns. [phone]. APS accepted case: [id number]. dcp: family decline return to [facility]. they hope she will improve to dc home with them in [place]. spoke with Monique Groves PA, [facility] attending. Andrés bedside RN. SHERIF PAYNE, RN-Data Entry Clerk - 04/10/22 09:41:02 received email from aps. they have accepted & will assign to community mental health social worker. SHERIF PAYNE, RN-Data Entry Clerk - 04/09/22 15:19:44 APS reported filed. [id number]. spoke with clover Bowen rn, Amber, community outreach manager & Mary warehouse worker 2nd shift. SHERIF PAYNE RN-Data Entry Clerk - 04/09/22 12:07:07 EMIL GIRALDO, PRIMO - Data Entry Clerk - 04/25/2022 17:23 EDT documented in this encounter Plan of Treatment Not on file documented as of this encounter Visit Diagnoses Not on filedocumented in this encounter
--- OUTSIDE RECORDS SUMMARY | 2025-02-21 13:45 | XMS_ITS | Encounter Summary ---
Author Organization [employer] [facility] Address [address] [place] [address] Care Team Providers Care Scrum Project Manager Name Role Phone Unavailable Primary Care Provider Unavailabl e Encounter Details Date Type Department Care Team (Late st Contact Info) Description 03/19/2022 Transcribed Document [facility] [place] [address] [place] [address] ProviderFlorentino MD [address] [place] [address] Social History Tobacco Use Types [...] - Florentino Lynne MD - 03/19/2022 9:07 AM CDT On Going Discharge Planning Entered On: 03/19/2022 9:08 EDT Performed On: 03/19/2022 9:07 EDT by EMIL GIRALDO RN - Gym ManagerScrum Project Manager Progress Note Discharge Arrangements : Patient Post-Acute Information Patient Name: ALYSSA AZUL Gender: Female : 60 Age: 61 Years No Post-Acute Placement(s) Listed No Post-Acute Service(s) Listed No Curaspan Referral(s) Listed Discharge Options Discussed with Patient : Acute rehabilitation, Discharge transportation, DME, Home Health, Short term rehabilitation, Other: LTACH Barriers to Discharge Identified : Clinical Condition of Patient, No correction bed available Barriers to Discharge Unresolved : Clinical Condition of Patient Patient Discharge Goal : Inpatient rehabilitation facility EMIL GIRALDO RN - Gym Manager - 03/19/2022 9:07 EDT Narrative Progress Note Narrative Progress Note : Cm called and left messages at [facility], [facility], [facility], [facility], and [facility]. Placement is limited by the patients managed medicaid plan. Historical Progress Note : RRS High Day 16/08 Patient was admitted for respiratory failure. Hx of paraplegia, CKD3, DM2. PT is working with the patient today on transferring to a wheelchair. Probable discharge home with her son at [address] [place] [address] in [place], [place]. CM spoke with her son DJ today and he has ordered a hospital bed. CM will order a bedside commode for discharge. Pending PT eval today probable discharge home soon. DCP: EMIL GIRALDO RN - Gym Manager - 03/18/22 14:00:56 HD 16/ELOS 12/RRS high- on room air, [...] accepting patient. Pt, RN and family (Divine [phone]) alerted that planned DC was not going to take place. Have expanded SNF search for possible acceptance. NACHO SANCHEZ, Imaging System Administrator - 03/17/22 16:07:59 Attending physician request CM arrange fro patient transport in anticipation of dc. *PENDING PRECERT APPROVAL*, Lorraine cotto to [facility] saturday 03/17 @1600. trip # [id number]. Luisa Ramon, Battery Technician Rn - 03/16/22 15:04:55 RRS High Day 12/08 Patient was admitted for acute respiratory failure. Hx of paraplegia, CKD3, DM2. PT indicates need for rehab at discharge and Cm has a bed offer from [facility]. Patient is willing to go. CM will ask Rachel to start the precert. IV zosyn/doxy. Need duration. DCP: snf EMIL GIRALDO RN - Gym Manager - 03/14/22 12:54:50 RRS High Day 08/11 Patient was admitted for acute respiratory failure. Hx of paraplegia, CKD3, DM2. Patient was last extubated on 03/08. Patient needs rehab at discharge and has updated referrals and expanded the referral area. Waiting for return call from [facility]. IV zosyn/doxy. Need duration. Creatinine was up slightly today. DCP: snf EMIL GIRALDO RN - Gym Manager - 03/13/22 14:55:16 CM is waiting for a return call from [place] with [facility] about possible bed offer. EMIL GIRALDO RN - Gym Manager - 03/13/22 08:23:44 CM spoke with Matilde at [facility] and they cannot take the patient. Cm sent referrals to area snfs. EMIL GIRALDO RN - Gym Manager - 03/12/22 09:15:18 pt transferred off unit prior to assessment. DCP: PT/OT re-evals pending to assist with discharge plan. Anticipate patient will need inpatient rehab. TRISTAN TAYLOR RN-Gym Manager - 03/11/22 15:52:03 RAR High ELOS: 12 days HD#7 Covid Vaccine X2 +Booster 61 year old female with history paraplegia, CKD3, DM2, HTN; presented to [facility] with SOB, fever, chills and productive Cough X1 week. Admitted for PNA and debridement DTI to left buttock. Cardiac arrested, intubated and transferred to [facility]. She was extubated a couple days later and reintubated the same day and extubated. She was reintubated on 03/01 after failed BiPap and transferred to [facility]. Of note patient had trach/PEG in 2009. Consults: Pulmonary, ID 03/01 Intubated 03/08 Extubated 03/01 Central Line Patient extubated on Thursday. Awake and alert, following commands. O2 sat 99% on 3 liters. STEAM PLANT CONTROL ROOM OPERATOR swallow eval, not safe to initiate po diet, continue corpak with TF. Renal function improving. DCP: PT/OT re-evals pending to assist with discharge plan. Anticipate patient will need inpatient rehab. Will fax referral when therapy notes available. STEFAN FERNANDEZ RN-Gym Manager - 03/09/22 14:31:25 RAR High ELOS: 5 days HD#3 Covid Vaccine X2 +Booster 61 year old female with history paraplegia, CKD3, DM2, HTN; presented to [facility] with SOB, fever, chills and productive Cough X1 week. Admitted for PNA and debridement DTI to left buttock. Cardiac arrested, intubated and transferred to [facility]. She was extubated a couple days later and reintubated the same day and extubated. She was reintubated on 03/01 after failed BiPap and transferred to [facility]. Of note patient had trach/PEG in 2009. Consults: Pulmonary, ID 03/01 Intubated Vent Day #5 03/01 Central Line On MV per ET AC 16/400/40%/P8, sedated with Fentanyl and Propofol, awake and following commands. Na+ trending up 149. Corpak with TF. ID plan: IV Zosyn q8. Wound Vac to left buttock. Patient lives alone in [place]. She is and has one son FREDO. Her PCP s Dr. Cabello. Patient is ADL independent at her baseline. Only inpatient rehab stay was at [facility] at age 9. No prior home health services. She has a CPap and dated WC at home. She transports by her son or Medicaid van. DCP: CM spoke with patient's son FREDO on the phone. He and his plan to ultimately take her home to their house in [place] after hospitalization and LTACH/Rehab stay for IV abx and wound care. Patient has managed medicaid and does not have a SNF benefit. Her inpatient options at discharge will be LTACH or acute rehab versus home with home health. Early referral to [facility]. Son asked if we could assist in getting her a new WC at discharge. He will let CM know the name of her DME provider to see if she is eligible for a new one. CM will assist to get his [place] paperwork over to Sound office. STEFAN FERNANDEZ RN-Gym Manager - 03/05/22 13:34:00 EMIL GIRALDO RN - Gym Manager - 03/19/2022 9:07 EDT Electronically signed by Sumaya [facility] Conversion Railroad Brake Repairer Cerner at 12/21/2022 5:03 PM CDT documented in this encounter Plan of Treatment Not on file documented as of this encounter Visit Diagnoses Not on filedocumented in this encounter
--- OUTSIDE RECORDS SUMMARY | 2025-02-21 13:45 | XMS_ITS | Encounter Summary ---
Author Organization [email or web address] Address [address] [place] [address] Care Team Providers Care Hatchery Supervisor Name Role Phone Unavailable Primary Care Provider Unavailabl e Encounter Details Date Type Department Care Team (Late st Contact Info) Description 04/12/2022 Transcribed Document [facility] [place] [address] [place] [address] ProviderFlorentino MD [address] [place] [address] Social History Tobacco Use Types Packs/Day Years Used Date Smoking Tobacco: Never Assessed Comments Unknown Sex and Gender Information Value Date Recorded Sex Assigned at Not on file Legal Sex Female 1:44 PM CDT Gender Identity Not on file Sexual Orientation Not on file documented as of this encounter Miscellaneous Notes * Cerner Conversion Note - Florentino ProviderMD - 04/12/2022 5:00 AM CDT Chart Check - Review Order Profile Entered On: 04/12/2022 4:57 EDT Performed On: 04/12/2022 5:00 EDT by Hebert Barker RN Chart Check Powerplans Initiated/Discontinued as Appropriate : Yes All Active Orders Reviewed : Yes Hebert Barker RN - 04/12/2022 4:57 EDT Electronically signed by Sumaya [facility] Conversion Baster Hand Cerner at 12/21/2022 5:10 PM CDT documented in this encounter Plan of Treatment Not on file documented as of this encounter Visit Diagnoses Not on filedocumented in this encounter
--- OUTSIDE RECORDS SUMMARY | 2025-02-21 13:45 | XMS_ITS | Encounter Summary ---
Author Organization [employer] Address [address] [place] [address] Care Team Providers Care Confectionery Cooker Name Role Phone Unavailable Primary Care Provider Unavailabl e Encounter Details Date Type Department Care Team (Late st Contact Info) Description 04/25/2022 Transcribed Document [facility] [place] [address] [place] [address] ProviderFlorentino MD [address] [place] [address] Social History Tobacco Use Types Packs/Day Years Used Date Smoking Tobacco: Never Assessed Comments Unknown Sex and Gender Information Value Date Recorded Sex Assigned at Not on file Legal Sex Female 1:44 PM CDT Gender Identity Not on file Sexual Orientation Not on file documented as of this encounter Miscellaneous Notes * Cerner Conversion Note - Florentino Lynne MD - 04/25/2022 3:28 PM CDT Patient Education Materials Follows:and Gynecology Urinary Tract Infection, Adult A urinary tract [...] these instructions at home: Medicines ??? Take kljz-qcz-rwedyys and prescription medicines only as told by [...] ??? You do not get better after 1?2 days. ??? Your symptoms go away and [...] provider. Document Revised: 03/29/2021 Document Reviewed: 03/29/2021 [employer] Patient Education ? 2021 [employer] documented in this encounter Plan of Treatment Not on file documented as of this encounter Visit Diagnoses Not on filedocumented in this encounter
--- OUTSIDE RECORDS SUMMARY | 2025-02-21 13:45 | XMS_ITS | Encounter Summary ---
Author Organization [employer] Address [address] [place] [address] Care Team Providers Care Debt Counselor Name Role Phone Unavailable Primary Care Provider Unavailabl e Encounter Details Date Type Department Care Team (Late st Contact Info) Description 04/25/2022 Transcribed Document [facility] [place] Family Medicine [address] [place] [address] ProviderFlorentino MD [address] [place] [address] Social History Tobacco Use Types Packs/Day Years Used Date Smoking Tobacco: Never Assessed Comments Unknown Sex and Gender Information Value Date Recorded Sex Assigned at Not on file Legal Sex Female 1:44 PM CDT Gender Identity Not on file Sexual Orientation Not on file documented as of this encounter Miscellaneous Notes * Cerner Conversion Note - Florentino Lynne MD - 04/25/2022 7:29 PM CDT Patient: ALYSSA AZUL Age: 61 years Sex: Female : 1960 Associated Diagnoses: None Author: HIGINIO AREVALO MD-INF Antibiotics: meropenem CC: Sacral wound Subjective: Patient stable without fevers still with elevated blood pressure working on discharge today Objective: Vitals Signs (last 24 hrs) Last Charted Minimum Maximum Temp 99.3 (APR 25 15:38) 97.9 (APR 25 02:52) 99.3 (APR 25 10:28) Mon HR 91 (APR 25 15:38) 89 (APR 25 02:33) 100 (APR 25 10:28) Resp Rate 15 (APR 25 15:38) 15 (APR 25 15:38) 18 (APR 25 08:20) SBP 103 (APR 25 15:38) 103 (APR 25 15:38) H 188 (APR 25 02:33) DBP 66 (APR 25 15:38) 66 (APR 25 15:38) H 94 (APR 25 02:33) MAP 80 (APR 25 15:38) 80 (APR 25 15:38) 117 (APR 25 08:25) SpO2 95 (APR 25 15:38) L 92 (APR 25 08:20) 96 (APR 24 23:06) PE: General: alert, oriented x3 HEENT: sclera [...] has some mild right hydronephrosis and hydroureter Severe sepsis from urinary source and chronic left hip wound infection now improved has been stable on the floor with wound care and IV antibiotics Platelets are stable continue on broad-spectrum coverage [...] infection issues have slowly improved continue meropenem notified of plans for discharge home today feel she has completed long course of IV antibiotics now can switch to oral antibiotics for 1 more week with cefuroxime 500 mg p.o. twice daily x7 days RECOMMENDATIONS/PLANS: -DC meropenem today switch to cefuroxime 500 mg p.o. twice daily x7 days -Notified of plans for discharge today -Discharge per primary team Can follow-up with me via telehealth in 2 to 3 weeks I spent greater than 35 minutes her case today with more than 50% time in counseling/coordination of care and discharge planning discussion with case management documented in this encounter Plan of Treatment Not on file documented as of this encounter Visit Diagnoses Not on filedocumented in this encounter
--- OUTSIDE RECORDS SUMMARY | 2025-02-21 13:45 | XMS_ITS | Encounter Summary ---
Author Organization [employer] Address [address] [place] [address] Care Team Providers Care Landscape Engineer Name Role Phone Unavailable Primary Care Provider Unavailabl e Encounter Details Date Type Department Care Team (Late st Contact Info) Description 03/20/2022 Transcribed Document [facility] [place] Family Medicine [address] [place] [address] ProviderFlorentino MD [address] [place] [address] Social History Tobacco Use Types Packs/Day Years Used Date Smoking Tobacco: Never Assessed Comments Unknown Sex and Gender Information Value Date Recorded Sex Assigned at Not on file Legal Sex Female 1:44 PM CDT Gender Identity Not on file Sexual Orientation Not on file documented as of this encounter Miscellaneous Notes * Cerner Conversion Note - Florentino Lynne MD - 03/20/2022 3:37 PM CDT Final Discharge Planning Entered On: 03/20/2022 15:38 EDT Performed On: 03/20/2022 15:37 EDT by EMIL GIRALDO RN - Brushing Operator Final Discharge Planning Discharge Arrangements : Patient Post-Acute Information Patient Name: ALYSSA AZUL Gender: Female : [birth year] Age: 61 Years Curaspan Referral(s): Service: Organization: Business Address: Phone Number: [facility] [address] [place] [address], [id number] Patient Offered Choice/Affiliations Explained : Yes Transportation Needs : Wheelchair van Discharge Transportation Arrangement Cmt : [facility] Follow Up Appointment Scheduled : Yes Is Patient High/Moderate Readmission Risk? : Yes Patient/Family Notified of Plan : Yes Support Person/Pt Rep Notified of Plan : Yes Patient/Family Notified : son Ariadna Azul Is Patient Ready for Discharge? : Yes Physician Notified Patient is Ready for Discharge? : Yes Discharge To Care Management : SNF with Medicare Certification-03 EMIL GIRALDO RN - Brushing Operator - 03/20/2022 15:37 EDT Final Narrative Note Final Narrative Note : Patient is discharging to [facility] via [facility] transport at 5 pm. EMIL GIRALDO RN - Brushing Operator - 03/20/2022 15:37 EDT Electronically signed by Bruce [employer] Conversion Mechanical [employer] Car Checker Mykel at 12/21/2022 5:07 PM CDT documented in this encounter Plan of Treatment Not on file documented as of this encounter Visit Diagnoses Not on filedocumented in this encounter
--- OUTSIDE RECORDS SUMMARY | 2025-02-21 13:45 | XMS_ITS | Encounter Summary ---
Author Organization [employer] Address [address] [place] [address] Care Team Providers Care Process Assistant Name Role Phone Unavailable Primary Care Provider Unavailabl e Encounter Details Date Type Department Care Team (Late st Contact Info) Description 04/12/2022 Transcribed Document [facility] [place] [address] [place] [address] ProviderFlorentino MD [address] [place] [address] Social History Tobacco Use Types Packs/Day Years Used Date Smoking Tobacco: Never Assessed Comments Unknown Sex and Gender Information Value Date Recorded Sex Assigned at Not on file Legal Sex Female 1:44 PM CDT Gender Identity Not on file Sexual Orientation Not on file documented as of this encounter Miscellaneous Notes * Cerner Conversion Note - Florentino Lynne MD - 04/12/2022 8:26 PM CDT Patient: ALYSSA AZUL Age: 61 [...] complaints of increasing confusion and fall at retirement facility. Per documentation, the patient is a [...] She was discharged from our facility to retirement facility. On 04/08, pulmonary is being asked [...] mg, 300 mL, 300 mL/Hr, IV Piggyback, [id number] calcium gluconate: 1 Gram, 100 mL, 100 [...] mL: 500 mg, 16.67 mL/Hr, IV Piggyback, [id number] micafungin: 100 mg, 100 mL/Hr, IV Piggyback, [id number] phenylephrine injection 80 mg + NaCl 0.9% [...] Tab, Oral, At Bedtime, 0 Refill(s), Medications (27) Active Scheduled: (11) amLODIPine 5 mg tab 5 mg 1 [...] *PREMIX* 600 mg 300 mL, IV Piggyback, [id number] meropenem + NaCl 0.9% 50 mL 500 mg, IV Piggyback, [id number] micafungin sodium 100 mg, IV Piggyback, R72KYnm miconazole nitrate 2% pwd 85 g 1 [...] History of obstructive sleep apnea / IMO [id number] / Confirmed Diabetes / SNOMED CT [id number] / Confirmed, Active Problems (6) Chronic kidney disease (CKD), stage III (moderate) Diabetes History of obstructive sleep apnea Hyperlipidemia Hypertension Paraplegia Physical Examination VS/Measurements Vitals Signs (last 24 hrs) Last Charted Minimum Maximum Temp 98.0 (APR 12 16:00) 98.0 (APR 12 16:00) 99 (APR 12 00:00) Mon HR 55 (APR 12 18:00) 47 (APR 12 04:00) 66 (APR 12 16:00) Resp Rate H 25 (APR 12 18:00) 16 (APR 12 03:26) H 56 (APR 12 12:00) SBP H 153 (APR 12 18:00) 103 (APR 12 00:00) H 179 (APR 12 08:00) DBP 67 (APR 12 18:00) L 53 (APR 11 22:00) 81 (APR 12 04:00) MAP 97 (APR 12 18:00) 65 (APR 11 22:00) 135 (APR 12 03:00) SpO2 100 (APR 12 18:00) L 91 (APR 11 22:00) 100 (APR 11 23:05) General: On 2L NC, follows commands, (paraplegic). [...] 24 Hours) Radiology Results (Last 48 hours) [id number] -- 04/08/2022 07:53 CR Chest 1 Vw Portable (04/11/2022 03:32) [...] MD TIFFANY Andre Chest 1 Vw Portable (04/12/2022 04:06) Result: [...] extremities Plan Extubated on 04/10, Currently on 2L NC, 97% NIPPV at HS Hemodynamics: On levo only for MAP > 65. ---weaned off, now hypertensive Add home dose Bisoprolol 5mg Daily Antibiotics per [...] see Speech evaluation--plans for FEES on Thursday I have personally evaluated the patient; history [...] patient and her family at bedside Complex case, requires frequent assessments and high level of decision making. Critical care time spent on this patient is 33 minutes documented in this encounter Plan of Treatment Not on file documented as of this encounter Visit Diagnoses Not on filedocumented in this encounter
--- OUTSIDE RECORDS SUMMARY | 2025-02-21 13:45 | XMS_ITS | Encounter Summary ---
Author Organization [employer] Address [address] [place] [address] Care Team Providers Care Mint Wafer Depositor Name Role Phone Unavailable Primary Care Provider Unavailabl e Encounter Details Date Type Department Care Team (Late st Contact Info) Description 02/23/2022 Transcribed Document [facility] [place] [address] [place] [address] ProviderFlorentino MD [address] [place] [address] Social History Tobacco Use Types Packs/Day Years Used Date Smoking Tobacco: Never Assessed Comments Unknown Sex and Gender Information Value Date Recorded Sex Assigned at Not on file Legal Sex Female 1:44 PM CDT Gender Identity Not on file Sexual Orientation Not on file documented as of this encounter Miscellaneous Notes * Cerner Conversion Note - Florentino Lynne MD - 02/23/2022 5:00 PM CDT Chart Check - Review Order Profile Entered On: 02/23/2022 15:57 EDT Performed On: 02/23/2022 17:00 EDT by Linda Pierre Rn Chart Check Powerplans Initiated/Discontinued as Appropriate : Yes All Active Orders Reviewed : Yes Linda Pierre Rn - 02/23/2022 15:57 EDT documented in this encounter Plan of Treatment Not on file documented as of this encounter Visit Diagnoses Not on filedocumented in this encounter
--- OUTSIDE RECORDS SUMMARY | 2025-02-21 13:45 | XMS_ITS | Encounter Summary ---
Author Organization [employer] [facility] Address [address] [place] [address] Care Team Providers Care Pug Machine Operator Name Role Phone Unavailable Primary Care Provider Unavailabl e Encounter Details Date Type Department Care Team (Late st Contact Info) Description 03/19/2022 Transcribed Document [facility] [place] Family Medicine [address] [place] [address] ProviderFlorentino MD [address] [place] [address] Social History Tobacco Use Types Packs/Day Years Used Date Smoking Tobacco: Never Assessed Comments Unknown Sex and Gender Information Value Date Recorded Sex Assigned at Not on file Legal Sex Female 1:44 PM CDT Gender Identity Not on file Sexual Orientation Not on file documented as of this encounter Miscellaneous Notes * Cerner Conversion Note - Florentino Lynne MD - 03/19/2022 12:53 PM CDT On Going Discharge Planning Entered On: 03/19/2022 12:54 EDT Performed On: 03/19/2022 12:53 EDT by EMIL GIRALDO RN - Financial Service ProfessionalForeign Clerk Progress Note Discharge Arrangements : Patient Post-Acute Information Patient Name: ALYSSA AZUL Gender: Female : [birth year] Age: 61 Years No Post-Acute Placement(s) Listed No Post-Acute Service(s) Listed No Curaspan Referral(s) Listed Discharge Options Discussed with Patient : Acute rehabilitation, Discharge transportation, DME, Home Health, Short term rehabilitation, Other: LTACH Barriers to Discharge Identified : Clinical Condition of Patient, No chcf bed available Barriers to Discharge Unresolved : Clinical Condition of Patient Patient Discharge Goal : Inpatient rehabilitation facility Is the Patient Meeting Medical Necessity : Yes Did you Attend Multidisciplinary Rounds? : Yes EMIL GIRALDO RN - Financial Service Professional - 03/19/2022 12:53 EDT Narrative Progress Note Narrative Progress Note : RRS High Day 17/08 CM spoke with Camilla with [facility]. She is looking at the patient again. CM sent updates and reopened the referral. Historical Progress Note : Cm called and left messages at [facility], [facility], [facility], [facility], and [facility]. Placement is limited by the patients managed medicaid plan. EMIL GIRALDO RN - Financial Service Professional - 03/19/22 09:08:31 RRS High Day 16/08 Patient was admitted for respiratory failure. Hx of paraplegia, CKD3, DM2. PT is working with the patient today on transferring to a wheelchair. Probable discharge home with her son at [address] [place] [address] in [place], [place]. CM spoke with her son FREDO today and he has ordered a hospital bed. CM will order a bedside commode for discharge. Pending PT eval today probable discharge home soon. DCP: EMIL GIRALDO RN - Financial Service Professional - 03/18/22 14:00:56 HD 16/ELOS 12/RRS high- [...] accepting patient. Pt, RN and family ([facility] [phone]) alerted that planned DC was not going to take place. Have expanded SNF search for possible acceptance. NACHO SANCHEZ, Health Science Instructor - 03/17/22 16:07:59 Attending physician request CM arrange fro patient transport in anticipation of dc. *PENDING PRECERT APPROVAL*, Lorraine cotto to [facility] saturday 03/17 @1600. trip # [id number]. Luisa Ramon, Sewage Plant Supervisor Rn - 03/16/22 15:04:55 RRS High Day 12/08 Patient was admitted for acute respiratory failure. Hx of paraplegia, CKD3, DM2. PT indicates need for rehab at discharge and Cm has a bed offer from [facility]. Patient is willing to go. CM will ask Rachel to start the precert. IV zosyn/doxy. Need duration. DCP: [facility] EMIL GIRALDO RN - Financial Service Professional - 03/14/22 12:54:50 RRS High Day 08/11 Patient was admitted for acute respiratory failure. Hx of paraplegia, CKD3, DM2. Patient was last extubated on 03/08. Patient needs rehab at discharge and has updated referrals and expanded the referral area. Waiting for return call from [facility]. IV zosyn/doxy. Need duration. Creatinine was up slightly today. DCP: [facility] EMIL GIRALDO RN - Financial Service Professional - 03/13/22 14:55:16 CM is waiting for a return call from Rachel with [facility] about possible bed offer. EMIL GIRALDO RN - Financial Service Professional - 03/13/22 08:23:44 CM spoke with Matilde at [facility] and they cannot take the patient. Cm sent referrals to area snfs. EMIL GIRALDO RN - Financial Service Professional - 03/12/22 09:15:18 pt transferred off unit prior to cm assessment. DCP: PT/OT re-evals pending to assist with discharge plan. Anticipate patient will need inpatient rehab. TRISTAN TAYLOR RN-Financial Service Professional - 03/11/22 15:52:03 RAR High ELOS: 12 days HD#7 Covid Vaccine X2 +Booster 61 year old female with history paraplegia, CKD3, DM2, HTN; presented to [facility] with SOB, fever, chills and productive Cough X1 week. Admitted for PNA and debridement DTI to left buttock. Cardiac arrested, intubated and transferred to [facility]. She was extubated a couple days later and reintubated the same day and extubated. She was reintubated on 03/01 after failed BiPap and transferred to [facility]. Of note patient had trach/PEG in 2009. Consults: Pulmonary, ID 03/01 Intubated 03/08 Extubated 03/01 Central Line Patient extubated on Thursday. Awake and alert, following commands. O2 sat 99% on 3 liters. LOCOMOTIVE CRANE OPERATOR HELPER swallow eval, not safe to initiate po diet, continue corpak with TF. Renal function improving. DCP: PT/OT re-evals pending to assist with discharge plan. Anticipate patient will need inpatient rehab. Will fax referral when therapy notes available. STEFAN FERNANDEZ RN-Financial Service Professional - 03/09/22 14:31:25 RAR High ELOS: 5 days HD#3 Covid Vaccine X2 +Booster 61 year old female with history paraplegia, CKD3, DM2, HTN; presented to [facility] with SOB, fever, chills and productive Cough X1 week. Admitted for PNA and debridement DTI to left buttock. Cardiac arrested, intubated and transferred to [facility]. She was extubated a couple days later and reintubated the same day and extubated. She was reintubated on 03/01 after failed BiPap and transferred to [facility]. Of note patient had trach/PEG in 2009. Consults: Pulmonary, ID / Intubated Vent Day #5 03/01 Central Line On MV per ET AC 16/400/40%/P8, sedated with Fentanyl and Propofol, awake and following commands. Na+ trending up 149. Corpak with TF. ID plan: IV Zosyn q8. Wound Vac to left buttock. Patient lives alone in [place]. She is and has one son FREDO. Her PCP s Dr. Cabello. Patient is ADL independent at her baseline. Only inpatient rehab stay was at [facility] at age 9. No prior home health services. She has a CPap and dated WC at home. She transports by her son or Medicaid van. DCP: BARNEY spoke with patient's son FREDO on the phone. He and his plan to ultimately take her home to their house in [place] after hospitalization and LTACH/Rehab stay for IV abx and wound care. Patient has managed medicaid and does not have a SNF benefit. Her inpatient options at discharge will be LTACH or acute rehab versus home with home health. Early referral to [facility]. Son asked if we could assist in getting her a new WC at discharge. He will let CM know the name of her DME provider to see if she is eligible for a new one. BARNEY will assist to get his [facility] paperwork over to [facility] office. STEFAN FERNANDEZ RN-Financial Service Professional - 03/05/22 13:34:00 EMIL GIRALDO, RN - Financial Service Professional - 03/19/2022 12:53 EDT documented in this encounter Plan of Treatment Not on file documented as of this encounter Visit Diagnoses Not on filedocumented in this encounter
--- OUTSIDE RECORDS SUMMARY | 2025-02-21 13:45 | XMS_ITS | Encounter Summary ---
Author Organization [employer] Address [address] [place] [address] Care Team Providers Care Corporate Communications Manager Name Role Phone Unavailable Primary Care Provider Unavailabl e Encounter Details Date Type Department Care Team (Late st Contact Info) Description 03/20/2022 Transcribed Document [facility] [place] Family Medicine [address] [place] [address] ProviderFlorentino MD [address] [place] [address] Social History Tobacco Use Types [...] Lynne MD - 03/20/2022 2:31 PM CDT Stroke/Warfarin Instructions Entered On: 03/20/2022 14:31 EDT Performed On: 03/20/2022 14:31 EDT by Mai Patel RN Stroke/Warfarin Instructions Stroke/TIA Discharge Ins : Open Warfarin Discharge Ins : N/A Mai Patel RN - 03/20/2022 14:31 EDT Stroke/TIA Discharge Instructions Individualized Stroke Risk Factors *Q : Hypertension/High blood pressure Stroke Education Handouts Given *Q : Yes Mai Patel RN - 03/20/2022 14:31 EDT Stroke Education Materials Given-Grid Activation of EMS *Q : Verbalizes understanding Follow-up Care After Discharge *Q : Verbalizes understanding Medications prescribed at DC *Q : Verbalizes understanding Risk Factors for Stroke *Q : Verbalizes understanding Warning S&S of Stroke *Q : Verbalizes understanding Mai Patel RN - 03/20/2022 14:31 EDT Stroke/TIA Signs/Symptoms to Report Immediately : Sudden onset difficulty speaking, Sudden onset difficulty understanding speech, Sudden onset change in vision, Sudden onset weakness particulary on one side of the body, Sudden onset numbness/tingling, Sudden severe headache, Sudden dizziness or trouble with gait, Call : EMS activation is crucial My LDL Level: : LDL Level No qualifying data available. Mai Patel RN - 03/20/2022 14:31 EDT documented in this encounter Plan of Treatment Not on file documented as of this encounter Visit Diagnoses Not on filedocumented in this encounter
--- OUTSIDE RECORDS SUMMARY | 2025-02-21 13:45 | XMS_ITS | Encounter Summary ---
Author Organization [employer] [facility] Address [address] [place] [address] Care Team Providers Care Stunt Driver Name Role Phone Unavailable Primary Care Provider Unavailabl e Encounter Details Date Type Department Care Team (Late st Contact Info) Description 04/25/2022 Transcribed Document [facility] [address] [place] [address] ProviderFlorentino MD [address] [place] [address] Social History Tobacco Use Types Packs/Day Years Used Date Smoking Tobacco: Never Assessed Comments Unknown Sex and Gender Information Value Date Recorded Sex Assigned at Not on file Legal Sex Female 1:44 PM CDT Gender Identity Not on file Sexual Orientation Not on file documented as of this encounter Miscellaneous Notes * Cerner Conversion Note - Florentino Lynne MD - 04/25/2022 12:32 PM CDT On Going Discharge Planning Entered On: 04/25/2022 12:36 EDT Performed On: 04/25/2022 12:32 EDT by EMIL GIRALDO RN - Solar Photovoltaic Crew LeadGarden Labourer Progress Note Discharge Arrangements : Patient Post-Acute Information Patient Name: ALYSSA AZUL Gender: Female : 60 Age: 61 Years No Post-Acute Placement(s) Listed No Post-Acute Service(s) Listed No Curaspan Referral(s) Listed Discharge Options Discussed with Patient : Home Health, halfway Barriers to Discharge Identified : Clinical Condition of Patient Barriers to Discharge Unresolved : Clinical Condition of Patient Patient Discharge Goal : Home health care Patient Offered Choice/Affiliations Explained : Yes Is the Patient Meeting Medical Necessity : Yes Did you Attend Multidisciplinary Rounds? : Yes EMIL GIRALDO, PRIMO - Solar Photovoltaic Crew Lead - 04/25/2022 12:32 EDT Narrative Progress Note Narrative Progress Note : RRS High Day 15/01 CM spoke with Lavonne with [employer] [phone]. She stated that [facility] is signing the PT orders for the patient's new wheelchair but it will be up to 30 days before it can be delivered. Patient is aware and per patient her son is going to fruit picker a rental wheelchair on Thursday for her. Patient should discharge on the AKANKSHA per wound care so ERIC spoke with [facility] wound care [phone] and they said they could see the patient for her wound vac changes. Cm will need to fax the orders to [phone]. Possible discharge Thu/ with son to transport. See previous note for more information. Historical Progress Note : CMs first day with this patient. CM talked with her this morning and she still wants to go home with her son to [address] [place] [address]. She needs a wheelchair and the process to get one ordered was started at [facility]. ERIC contacted them this morning and they are working on getting that signed off and ordered. ERIC contacted wound care because her AKANKSHA wound [...] abx is . Possible set up at [facility] for peripheral? ID will make a decision on this, no orders at this time. Discharge pending: wheelchair (pt is paraplegic), wound vac decision, IV abx decision. EMIL GIRALDO RN - Solar Photovoltaic Crew Lead - 04/25/22 08:49:04 Pt will only be able to do outpatient services at [facility] Pt can't have PICC so concern about if [facility] willing to do IV abx with only peripheral IVs CM was told that akanksha drain was put out significant drainage & may need to revert back to wound vac Due to uncertainty of wound vs akanksha drain, ERIC has not pursued [facility] for wound care Son confirms he can take pt for care CM will try to final DC plans once akanksha vs wound vac determined ERIC will continue to follow Adalid Castro, CORPORATE LEGAL SECRETARY NON-EXEMPT - 04/24/22 16:39:25 CM was unable to find services for pt Pt still declines [facility] offer to start percert Pt plans to go home with family Wound vac has now been changed to akanksha drain Son said he can transport pt to [facility] weekly for akanksha drain changes IV abx ends 2022 DC plan is home with family plus outpt follow up CM will continue to follow Adalid Castro SOCIAL WORKER NON-EXEMPT - 04/23/22 16:05:54 Pt had DC [...] to insurance & area Son lives in [place], [place] Pending issues: wound vac, IV abx & HH services CM will continue to follow Adalid Castro CORPORATE LEGAL SECRETARY NON-EXEMPT - 04/22/22 16:43:07 Cm spoke with [...] going to facility if it is in [place]. Cm faxed to [facility] per permission from family. CM will continue to follow. ERIK GALARZA, Stock Shaper-Crane Chaser - 04/18/22 13:51:52 Patient has been declined by all HH agencies. CM spoke to patient is open to [facility] however, [facility] does not have an open bed and [...] PT. CM will continue to follow. ERIK GALARZA Stock Shaper-Crane Chaser - 04/17/22 14:39:18 Patient requested CM speak with her daughter in law. Cm spoke with DIN who reported patient wants to discharge home with HH and DME. She will need a BSC for sure. If possible she would like to have a new CPAP as her's is old and needs replaced. Unsure of company name but maybe [employer]. Patient has all other DME. Patient does not have a preference of HH agency but wants it to be in area and with insurance. CM will continue to follow and set up DME and HH. ERIK GALARZA, Stock Shaper-Crane Chaser - 04/16/22 15:45:27 home health referral made to [facility] to assist with HH placement. very few HH agencies participate with pt's insurance so wound vac may need management at wound clinic. pt may have to do outpt PT is she delines snf-swing bed-ltach. TRISTAN TAYLOR, RN-Solar Photovoltaic Crew Lead - 04/15/22 12:07:49 RRS HIGH, LOS 7, ELOS 5 Hsfiel-zrc-xci-wplapjwulvav-utwrbfjstitp-bpddtgycm acidosis HX paraplegia since age 8 L. trochanter-- 11.0cmx6.5cmx2.0cm-current with wound vac CRRT off since 04/11-- possible catheter removal 8.16 Jifar0xtwnjzkaij-wzbkzzgov Pt was discharged to [facility] in 03.21. family refuses to return to [facility] and [facility] declined to accept back. Spoke with pt and she wishes to dc home with her son. She will need HH, PT for transfers as PLOF was independent, she will need wound vac and son will provide transportation. APS following: Aimee Payne, TRISTAN TAYLOR, RN-Solar Photovoltaic Crew Lead - 04/15/22 11:57:48 HD# 3. elos: 5. rar: high acute hypoxic resp failure. severe sepsis: shock. campos/ckd. acute pancreatitis. diabetes. paraplegia. covid 19: negative 8-9. bipap 30%/ra. zyvox/merrem/micafungin iv. wound vac: left trochanter. corpak tube feeds. PT/OT: eob. ST: cleared for diet. no dialysis. APS following: Aimee Payne [phone]. left message with updates. dcp: family decline return to [facility]. new referral [facility]. sent [facility]. spoke with bessie granda coordintor. they hope she will improve to dc home with them in [place]. FREDO, son, legal next of kin: [phone] Divine, daughter in law: [phone] SHERIF PAYNE, RN-Solar Photovoltaic Crew Lead - 04/14/22 10:45:05 HD# 3. elos: 5. rar: high acute hypoxic resp failure. severe sepsis: shock. capmos/ckd. acute pancreatitis. diabetes. paraplegia. covid 19: negative 8-9. extubated 8-11. 02 4L nc. crrt. levophed gtt. bicarb gtt. zyvox/merrem/micafungin iv. wound vac: left trochanter. APS following: Aimee Payne, . dcp: family decline return to [facility]. they hope she will improve to dc home with them in [place]. not ltac candidate at this time due to crrt. FREDO, son, legal next of kin: [phone] Divine, daughter in law: [phone] SHERIF PAYNE, RN-Solar Photovoltaic Crew Lead - 04/11/22 09:13:49 late entry for this am. Aimee Payne, aps social group worker was on site this am. she spoke with Andrés, clover rn, interviewed pt's son and spoke with Ms. azul who was awake on ventilator. she left number for claudia Groves sound to call her at Yaneli's convenience. provided medical records as requested. SHERIF PAYNE, RN-Solar Photovoltaic Crew Lead - 04/10/22 15:40:22 HD# 2. elos: 5. rar: high acute hypoxic resp failure. severe sepsis: shock. campos/ckd. acute pancreatitis. diabetes. paraplegia. covid 19: negative 8-9. following commads. mechanical ventilation. crrt. fentanyl gtt. insulin gtt. levophed gtt. evaluation Dr Abraham, back hoe operator. see her notes. no vaginal laceration. return call from Gayathri Pimentel, . she contacted lorrie Cohen for [facility], [facility], [facility] with family concerns. [phone]. APS accepted case: [id number]. dcp: family decline return to [facility]. they hope she will improve to dc home with them in [place]. spoke with Monique Groves PA, sound attending. Andrés, bedside RN. SHERIF PAYNE, RN-Solar Photovoltaic Crew Lead - 04/10/22 09:41:02 received email from aps. they have accepted & will assign to social group worker. SHERIF PAYNE, RN-Solar Photovoltaic Crew Lead - 04/09/22 15:19:44 APS reported filed. [id number]. spoke with Andrés bedside rn, Amber, apartment community assistant manager & Mary house fellow. SHERIF PAYNE, RN-Solar Photovoltaic Crew Lead - 04/09/22 12:07:07 EMIL GIRALDO, RN - Solar Photovoltaic Crew Lead - 04/25/2022 12:32 EDT documented in this encounter Plan of Treatment Not on file documented as of this encounter Visit Diagnoses Not on filedocumented in this encounter
--- OUTSIDE RECORDS SUMMARY | 2025-02-21 13:45 | XMS_ITS | Encounter Summary ---
Author Organization [employer] [facility] Address [address] [place] [address] Care Team Providers Care Medical Staff Services Manager Name Role Phone Unavailable Primary Care Provider Unavailabl e Encounter Details Date Type Department Care Team (Late st Contact Info) Description 04/25/2022 Transcribed Document [facility] [place] [address] [place] [address] ProviderFlorentino MD [address] [place] [address] Social History Tobacco Use [...] Note - Florentino Lynne MD - 04/25/2022 4:48 PM CDT On Going Discharge Planning Entered On: 04/25/2022 16:54 EDT Performed On: 04/25/2022 16:48 EDT by EMIL GIRALDO RN - Sewing Machine Operator SemiautomaticRope Maker Progress Note Discharge Arrangements : Patient Post-Acute Information Patient Name: ALYSSA MAYORGA Gender: Female : 60 Age: 61 Years No Post-Acute Placement(s) Listed No Post-Acute Service(s) Listed No Curaspan Referral(s) Listed Discharge Options Discussed with Patient : Home Health, snf Barriers to Discharge Identified : Clinical Condition of Patient Barriers to Discharge Unresolved : Clinical Condition of Patient Patient Discharge Goal : Home health care Patient Offered Choice/Affiliations Explained : Yes EMIL GIRALDO RN - Sewing Machine Operator Semiautomatic - 04/25/2022 16:48 EDT Narrative Progress Note Narrative Progress Note : CM has been notified that the patient now [...] wheelchairs. She is reaching out to her cigar making machine supervisor. Voxosutb-kj-kjo told CM that she wanted the hospital to pay for the wheelchair rental. EMIL GIRALDO RN - Sewing Machine Operator Semiautomatic - 04/25/2022 16:56 EDT Historical Progress Note : RRS High Day 15/01 ERIC spoke with Lavonne with [employer] [phone]. She stated that [facility] is signing the PT orders for the patient's new wheelchair but it will be up to 30 days before it can be delivered. Patient is aware and per patient her son is going to cigar packer and picker a rental wheelchair on Thursday for her. Patient should discharge on the AKANKSHA per wound care so ERIC spoke with [facility] wound care [phone] and they said they could see the patient for her wound vac changes. Cm will need to fax the orders to [phone]. Possible discharge Thu/ with son to transport. See previous note for more information. EMIL GIRALDO RN - Sewing Machine Operator Semiautomatic - 04/25/22 12:36:30 [facility] first day with this patient. ERIC talked with her this morning and she still wants to go home with her son to [address] [place] [address]. She needs a wheelchair and the process to get one ordered was started at [facility]. ERIC contacted them this morning and they [...] abx is . Possible set up at [facility] for peripheral? ID will make a decision on this, no orders at this time. Discharge pending: wheelchair (pt is paraplegic), wound vac decision, IV abx decision. EMIL GIRALDO, RN - Sewing Machine Operator Semiautomatic - 04/25/22 08:49:04 Pt will only be able to do outpatient services at [facility] Pt can't have PICC so concern about if [facility] willing to do IV abx with only peripheral IVs CM was told that akanksha drain was put out significant drainage & may need to revert back to wound vac Due to uncertainty of wound vs akanksha drain, CM has not pursued [facility] for wound care Son confirms he can take pt for care CM will try to final DC plans once akanksha vs wound vac determined CM will continue to follow Adalid Castro MANAGER UTILIZATION NON-EXEMPT - 04/24/22 16:39:25 CM was unable to find services for pt Pt still declines [facility] offer to start percert Pt plans to go home with family Wound vac has now been changed to akanksha drain Son said he can transport pt to [facility] weekly for akanksha drain changes IV abx ends 2022 DC plan is home with family plus outpt follow up CM will continue to follow Adalid Castro MANAGER UTILIZATION NON-EXEMPT - 04/23/22 16:05:54 Pt had DC order, but too many unresolved DC issues Pt declines offer for [facility] to start precert Pt wants to DC home with son Concern is finding HH Outpatient wound vac changes may be problem as son & DIL work during day [employer] referral made for IV abx HH may not be secured due to insurance & area Son lives in [place], [place] Pending issues: wound vac, IV abx & HH services CM will continue to follow Adalid Castro MANAGER UTILIZATION NON-EXEMPT - 04/22/22 16:43:07 Cm spoke with [...] going to facility if it is in May. Cm faxed to [facility] per permission from family. CM will continue to follow. ERIK GALARZA, Sports Coordinator-Temperature Regulator - 04/18/22 13:51:52 Patient has been declined by all HH agencies. CM spoke to patient is open to [facility] however, [facility] does not have an open bed [...] CM will continue to follow. ERIK GALARZA, Sports Coordinator-Temperature Regulator - 04/17/22 14:39:18 Patient requested CM speak with her daughter in law. Cm spoke with [facility] who reported patient wants to discharge home with HH and DME. She will need a BSC for sure. If possible she would like to have a new CPAP as her's is old and needs replaced. Unsure of company name but maybe [employer]. Patient has all other DME. Patient does not have a preference of HH agency but wants it to be in area and with insurance. CM will continue to follow and set up DME and HH. ERIK GALARZA, Sports Coordinator-Temperature Regulator - 04/16/22 15:45:27 home health referral made to [facility] to assist with HH placement. very few HH agencies participate with pt's insurance so wound vac may need management at wound clinic. pt may have to do outpt PT is she delines snf-swing bed-ltach. TRISTAN TAYLOR, RN-Sewing Machine Operator Semiautomatic - 04/15/22 12:07:49 RRS HIGH, LOS 7, ELOS 5 Vsqxhq-dut-hte-mpbzvnouuigy-ycfukqghaejy-pmzyaddjz acidosis HX paraplegia since age 8 L. trochanter-- 11.0cmx6.5cmx2.0cm-current with wound vac CRRT off since 04/11-- possible catheter removal 8.16 Qofgt5zqhwcxxtgp-flgsglbcs Pt was discharged to [facility] in 03.21. family refuses to return to [facility] and [facility] declined to accept back. Spoke with pt and she wishes to dc home with her son. She will need HH, PT for transfers as PLOF was independent, she will need wound vac and son will provide transportation. APS following: Aimee Payne, TRISTAN TAYLOR, RN-Sewing Machine Operator Semiautomatic - 04/15/22 11:57:48 HD# 3. elos: 5. rar: high acute hypoxic resp failure. severe sepsis: shock. campos/ckd. acute pancreatitis. diabetes. paraplegia. covid 19: negative 8-9. bipap 30%/ra. zyvox/merrem/micafungin iv. wound vac: left trochanter. corpak tube feeds. PT/OT: eob. ST: cleared for diet. no dialysis. APS following: Aimee Payne, . left message with updates. dcp: family decline return to [facility]. new referral [facility]. sent [facility]. spoke with bessie granda coordintor. they hope she will improve to dc home with them in May. DJ, son, legal next of kin: [phone] Divine, daughter in law: [phone] SHERIF PAYNE, RN-Sewing Machine Operator Semiautomatic - 04/14/22 10:45:05 HD# 3. elos: 5. rar: high acute hypoxic resp failure. severe sepsis: shock. campos/ckd. acute pancreatitis. diabetes. paraplegia. covid 19: negative 8-9. extubated 8-11. 02 4L nc. crrt. levophed gtt. bicarb gtt. zyvox/merrem/micafungin iv. wound vac: left trochanter. APS following: Aimee Payne, . dcp: family decline return to [facility]. they hope she will improve to dc home with them in May. not ltac candidate at this time due to crrt. DJ, son, legal next of kin: [phone] Divine, daughter in law: [phone] SHERIF PAYNE, RN-Sewing Machine Operator Semiautomatic - 04/11/22 09:13:49 late entry for this am. kyra Bundy social media coordinator was on site this am. she spoke with clover Bowen rn, interviewed pt's son and spoke with Ms. mayorga who was awake on ventilator. she left number for claudia Groves sound to call her at Yaneli's convenience. provided medical records as requested. SHERIF PAYNE, RN-Sewing Machine Operator Semiautomatic - 04/10/22 15:40:22 HD# 2. elos: 5. rar: high acute hypoxic resp failure. severe sepsis: shock. campos/ckd. acute pancreatitis. diabetes. paraplegia. covid 19: negative 8-9. following commads. mechanical ventilation. crrt. fentanyl gtt. insulin gtt. levophed gtt. evaluation Dr Abraham, paper carrier. see her notes. no vaginal laceration. return call from Gayathri Pimentel, . she contacted lorrie Cohen for [facility], [facility], [facility] with family concerns. [phone]. APS accepted case: [id number]. dcp: family decline return to [facility]. they hope she will improve to dc home with them in May. spoke with Monique Groves PA, sound attending. clover Bowen RN. SHERIF PAYNE, RN-Sewing Machine Operator Semiautomatic - 04/10/22 09:41:02 received email from aps. they have accepted & will assign to social media coordinator. SHERIF PAYNE RN-Sewing Machine Operator Semiautomatic - 04/09/22 15:19:44 APS reported filed. [id number]. spoke with clover Bowen rnAmber, cracking unit operator & Mary washhouse worker. SHERIF PAYNE, RN-Sewing Machine Operator Semiautomatic - 04/09/22 12:07:07 EMIL GIRALDO RN - Sewing Machine Operator Semiautomatic - 04/25/2022 16:48 EDT documented in this encounter Plan of Treatment Not on file documented as of this encounter Visit Diagnoses Not on filedocumented in this encounter
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
--- OUTSIDE RECORDS SUMMARY | 2025-02-21 13:45 | XMS_ITS | Encounter Summary ---
Author Organization [facility] Address [address] [place] [id number] Care Team Providers Care Travel Specialist Name Role Phone Unavailable Primary Care Provider Unavailabl e Encounter Details Date Type Department Care Team (Late st Contact Info) Description 03/20/2022 Transcribed Document [facility] Family Medicine [address] [place] [address] ProviderFlorentino MD [address] [place] [address] Social History Tobacco Use Types [...] Lynne MD - 03/20/2022 2:31 PM CDT [address] [place] [id number] ALYSSA MAYORGA :1960 Visit Time:03/01/2022 Your Visit Summary Your Care Team Admitting Physician - MICHELLE LORA MD-INT Attending Physician - OG CAAL MD-INT Primary Care Physician - JOHN, UNKNOWN Referring Physician - JOHN, SELF REFERRED Your Diagnosis Acute hypoxemic respiratory failure Sepsis due to pneumonia JAVIER (acute kidney injury) These Are Your Goals Patient Discharge Goal Patient Discharge Goal: Inpatient rehabilitation facility Discharge Vitals Temperature 36.4 ??C Heart Rate (Monitored) 67 Respiratory Rate 18 Blood Pressure 115/58 What to do next Follow-Up Appointments Follow Up with JAMILAH GEORGES When 2022 01:45 PM EDT Comments Patient needs follow up CT chest with contrast in 6 weeks; Appointment has been made; office will contact you with CT time and location prior to office visit. Where: [address] [place] [address]- [facility] (1) Medications What How Much When Instructions Next Dose acetaminophen (acetaminophen 325 mg oral tablet) 2 Tablet(s) Oral Every 6 Hours as needed for as needed for pain albuterol-ipratropium (DuoNeb 0.5 mg-2.5 mg/ 3 mL inhalation solution) 3 Milliliter(s) Nebulized Inhalation Every 6 Hours as needed for Dyspnea amoxicillin-clavulanate (Augmentin 500 mg-125 mg oral tablet) Oral Two Times A Day docusate (docusate 10 mg/ mL oral liquid) 10 Milliliter(s) Oral Every Day doxycycline (doxycycline hyclate 100 mg oral capsule) 1 Capsule(s) Oral Two Times A Day famotidine (Pepcid 20 mg oral tablet) 1 Tablet(s) Oral At Bedtime guaiFENesin (Mucinex 600 mg oral tablet, extended release) 1 Tablet(s) Oral Two Times A Day insulin lispro (insulin lispro 100 units/ mL injectable solution) 76 kg - 100 kg scale SubCutaneous Before Meals and at Bedtime senna Oral At Bedtime furosemide (furosemide 40 mg oral tablet) 1 Tablet(s) Oral Every Day as needed for swelling alendronate (alendronate weekly) 70 Milligram(s) Oral Weekly bisoprolol (bisoprolol 5 mg oral tablet) 1 Tablet(s) Oral Every Day dapagliflozin (Farxiga 10 mg oral tablet) 1 Tablet(s) Oral Every Day ferrous sulfate (ferrous sulfate 325 mg (65 mg elemental iron) oral tablet) 1 Tablet(s) Oral Two Times A Day metFORMIN (metFORMIN 500 mg oral tablet) 2 Tablet(s) Oral Two Times A Day omega-3 polyunsaturated fatty acids (Lovaza 1000 mg oral capsule) 2 Capsule(s) Oral Two Times A Day PRAVAstatin (pravastatin 40 mg oral tablet) 1 [...] Allergies Immunizations This Visit No Immunizations Found Stroke/TIA Instructions Individualized Stroke Risk Factors Individualized Stroke Risk Factors *Q: Hypertension/High blood pressure Stroke/TIA Signs/Symptoms to Report Immediately: Sudden onset difficulty speaking, Sudden onset difficulty understanding speech, Sudden onset change in vision, Sudden onset weakness particulary on one side of the body, Sudden onset numbness/tingling, Sudden severe headache, Sudden dizziness or trouble with gait, Call : EMS activation is crucial Mutually Agreed Upon Goals My LDL Level: My LDL Level: Education Materials Preventing Pressure Injuries A pressure injury, sometimes [...] ??? Need to wear a medical office assistant. ??? Have poor control of their bladder [...] health care provider. General instructions ??? Take xrmv-eyy-ssljadz and prescription medicines only as told by [...] provider. Document Revised: 12/09/2019 Document Reviewed: 05/10/2019 [employer] Patient Education ?? 2020 [employer]. Community-Acquired Pneumonia, Adult Pneumonia is an infection [...] these instructions at home: Medicines ??? Take crft-zra-lxatehk and prescription medicines only as told by [...] salt water. To make salt water, dissolve ?1 tsp (3???6 g) of salt in 1 cup (237 [...] 65 years of age. ? You are 19???65 years of age and: ? You are [...] cannot use soap and water, use hand soccer player. Contact a doctor if: ??? You have [...] provider. Document Revised: 05/29/2020 Document Reviewed: 05/29/2020 Elsevier Patient Education ?? 2020 [employer] Negative Pressure Wound Therapy Home Guide Negative [...] bag. ??? Soap and water, or hand soccer player. ??? Wound cleanser or salt-water solution (saline). [...] and water are not available, use hand soccer player. 3. Set up a clean station for [...] and water are not available, use hand soccer player. Clean your wound ??? Wear gloves, protective [...] and water are not available, use hand soccer player. Apply new dressing ??? Wear gloves, protective [...] and water are not available, use hand soccer player. 8. Turn the pump back on. The sponge dressing should collapse. Do not change the settings on the machine without talking to a health care provider. 9. Replace the container in the pump that collects fluid if it is full. Replace the container per the charter boat operator's instructions or at least once a week, [...] clamps are open. ??? Do not use csrl-tys-cpchxoj medicated or antiseptic creams, sprays, liquids, or [...] provider. Document Revised: 10/22/2020 Document Reviewed: 11/04/2019 [employer] Patient Education ?? 2020 [employer] Incision and Drainage, Care After This [...] these instructions at home: Medicines ??? Take yqum-nto-hqdoqur and prescription medicines only as told by [...] and water are not available, use hand soccer player. ??? Change your dressing and packing as [...] provider. Document Revised: 07/18/2019 Document Reviewed: 07/18/2019 [employer] Patient Education ?? 2020 [employer] aka [employer]. Acute Kidney Injury, Adult Acute kidney injury [...] these instructions at home: Medicines ??? Take kqdh-eoc-tjqayen and prescription medicines only as told by [...] important. Where to find more information ??? [employer] Kidney Patients: www.aakp.org ??? National Kidney Foundation: www.kidney.org ??? [employer]: www.akfinc.org ??? [facility] [...] provider. Document Revised: 06/26/2020 Document Reviewed: 06/26/2020 [employer] Patient Education ?? 2020 [employer] aka [employer]. guaifenesin (gwye FEN e sin) Altarussin, Bidex-400, Fenesin IR, Aretha-Tussin Expectorant, Mucinex, Mucus Relief, Robafen, Scot-Tussin, Siltussin SA, Tussin Expectorant, Xpect What is the most important information I should know about guaifenesin? Ask a doctor or pharmacist before using this medicine if you have health problems or use other medications, or if you are or breast-feeding. What is guaifenesin? Guaifenesin is used to reduce chest congestion caused by the common cold, flu, or chronic bronchitis. Guaifenesin helps loosen congestion in your chest and throat, making it easier to cough out through your mouth. There are many brands and forms of guaifenesin available. Not all brands are listed on this leaflet. Guaifenesin may also be used for purposes not listed in this medication guide. What should I discuss with my healthcare provider before taking guaifenesin? You should not use guaifenesin if you are allergic to it. Ask a doctor or pharmacist if it is safe for you to use this medicine if you have other medical conditions. Ask a doctor before using this medicine if you are . You should not breast-feed while using guaifenesin. How should I take guaifenesin? Use exactly as directed on the label, or as prescribed by your doctor. Cold or cough medicine is only for short-term use until your symptoms clear up. Always follow directions on the medicine label about giving cough or cold medicine to a child. Do not use the medicine only to make a child sleepy. can occur from the misuse of cough or cold medicines in very young children. Measure liquid medicine carefully. Use the dosing syringe provided, or use a medicine dose-measuring device (not a kitchen spoon). To use guaifenesin granules, pour out the entire packet onto your tongue and swallow without chewing. Call your doctor if your symptoms do not improve after 7 days, or if you have a fever, rash, or headaches. This medicine can affect the results of certain medical tests. Tell any doctor who treats you that you are using guaifenesin. Store at room temperature away from moisture and heat. Do not freeze. What happens if I miss a dose? Since cough or cold medicine is used when needed, you may not be on a dosing schedule. Skip any missed dose if it's almost time for your next dose. Do not use two doses at one time. What happens if I overdose? Seek emergency medical attention or call the Poison Help line at . What should I avoid while taking guaifenesin? Ask a doctor or pharmacist before using other cough or cold medicines that may contain similar ingredients. Avoid driving or hazardous activity until you know how this medicine will affect you. Your reactions could be impaired. What are the possible side effects of guaifenesin? Get emergency medical help if you have signs of an allergic reaction: hives; difficult breathing; swelling of your face, lips, tongue, or throat. Common side effects may include: ?? nausea; or ?? vomiting. This is not a complete list of side effects and others may occur. Call your doctor for medical advice about side effects. You may report side effects to FDA at 9-318-NTN-6433. What other drugs will affect guaifenesin ? Avoid using this medicine with other drugs that cause drowsiness or slow your breathing (such as opioid medicine, a muscle relaxer, or medicine for anxiety or seizures). Ask a doctor or pharmacist before using any other medication, including prescription and styi-igh-pbzidpz medicines, vitamins, and herbal products. Not all possible drug interactions are listed in this medication guide. Where can I get more information? Your pharmacist can provide more information about guaifenesin. Remember, keep this and all other medicines out of the reach of children, never share your medicines with others, and use this medication only for the indication prescribed. Every effort has been made to ensure that the information provided by [employer]. ('[employer]') is accurate, up-to-date, and complete, but no guarantee is made to that effect. Drug information contained herein may be time sensitive. [employer] information has been compiled for use by healthcare practitioners and consumers in the [place] and therefore [employer] does not warrant that uses outside of the [place] are appropriate, unless specifically indicated otherwise. [employer] drug information does not endorse drugs, diagnose patients or recommend therapy. [employer] drug information is an informational resource designed to assist licensed healthcare practitioners in caring for their patients and/or to serve consumers viewing this service as a supplement to, and not a substitute for, the expertise, skill, knowledge and judgment of healthcare practitioners. The absence of a warning for a given drug or drug combination in no way should be construed to indicate that the drug or drug combination is safe, effective or appropriate for any given patient. [employer] does not assume any responsibility for any aspect of healthcare administered with the aid of information [employer] provides. The information contained herein is not intended to cover all possible uses, directions, precautions, warnings, drug interactions, allergic reactions, or adverse effects. If you have questions about the drugs you are taking, check with your doctor, nurse or pharmacist. Copyright 5624-4417 [employer]. Version: 7.01. Revision Date: 10/25/2018. Emergency Awareness and Preventative Care STROKE is [...] Assistance with quitting is available by contacting 2-625-XWST-NOW. This is a free resource providing counseling, support, and referral. Or you may contact your personal physician. National Suicide Prevention Lifeline: The National Suicide Prevention [...] This Visit (last charted value for your 03/01/2022 visit) Blood Gases 03/10/2022 6:46 AM HCO3 Art: 28.3 mmol/L -- Normal range between ( 20.0 and 26.0 ) sO2 Art: >99.1 % -- Normal range between ( 95.0 and 100.0 ) pCO2 Art: 50.0 mmHg -- Normal range between ( 35.0 and 45.0 ) pH Art: 7.36 -- Normal range between ( 7.35 and 7.45 ) pO2 Art: 103.0 mmHg -- Normal range between ( 80.0 and 100.0 ) ABG Num of Draw Attempts: 1 Acceptable Huang's Test Art: Non-Applicable BE Art: 2.5 mmol/L FIO2 Art: 35 Delivery Device Type Art: CPAP Respiratory Rate Art: 24.0 tHb Art: 7.3 Gram/dL -- Normal range between ( 12.0 and 18.0 ) Ventilator Mode Art: N/A Temperature, F Art: 98.6 Deg F CPAP/PEEP Art: 6.0 cmH2O FHHb: <2.4 % Art Blood Gas (ABG) Site: Arterial Line PaO2/FiO2 calculated: 294 03/09/2022 7:09 AM Oxygen Flow Rate Art: 4.0 Liter 03/08/2022 2:25 PM ctO2: 11.4 mmol/L 03/07/2022 3:42 PM Set Rate Art: 16.0 Tidal Volume Set Art: 400.0 mL 03/07/2022 6:47 AM Comment Art: s Pressure Support Art: 10.0 cmH2O Hematology 03/19/2022 4:00 AM WBC: 7.0 K/uL -- Normal range between ( 4.5 and 10.5 ) RBC: 2.84 Million/uL -- Normal range between ( 3.93 and 5.22 ) Hct: 25.6 % -- Normal range between ( 34.1 and 44.9 ) Hgb: 8.0 g/dL -- Normal range between ( 11.2 and 15.7 ) Platelet Count: 170 K/uL -- Normal range between ( 163 and 369 ) MCH: 28.2 pg -- Normal range between ( 25.6 and 32.2 ) MCHC: 31.3 Gram/dL -- Normal range between ( 32.2 and 36.5 ) MCV: 90.1 fL -- Normal range between ( 79.0 and 94.8 ) Slide Review: No RDW: 16.0 % -- Normal range between ( 11.7 and 14.9 ) MPV: 11.4 fL -- Normal range between ( 9.4 and 12.4 ) 03/18/2022 6:30 AM RBC Morphology: Abnormal Callahan Percent Man: 4 % -- Normal range between ( 4 and 5 ) Ovalocytes: 1+ Baso Percent Man: 0 % -- Normal range between ( 0 and 1 ) Neutrophil Percent Man: 64 % -- Normal range between ( 50 and 65 ) Eos Percent Man: 7 % -- Normal range between ( 0 and 3 ) Anisocytosis: 1+ Platelet Ct Estimate: Decreased Porter Percent Man: 3 % -- Normal range between ( 0 and 1 ) Poikilocytosis: 1+ Lymph Percent Man: 22 % -- Normal range between ( 24 and 44 ) 03/17/2022 2:47 AM Myelo Percent Man: 4 % -- Normal range between ( 0 and 1 ) ALYC #: 1 K/uL Band Percent Man: 5 % -- Normal range between ( 5 and 11 ) ANC #: 4 K/uL 03/16/2022 5:09 AM Promyelo Percent Man: 1 % Polychromasia: 1+ Baso Stipplin+ 03/15/2022 6:20 AM Eos %: 5.9 % -- Normal range between ( 0.0 and 7.0 ) Callahan #: 0.56 K/uL -- Normal range between ( 0.16 and 1.00 ) Eos #: 0.38 x10(3)/uL -- Normal range between ( 0.00 and 0.80 ) Callahan %: 8.7 % -- Normal range between ( 3.0 and 9.0 ) Baso %: 0.9 % -- Normal range between ( 0.0 and 1.5 ) Baso #: 0.06 x10(3)/uL -- Normal range between ( 0.00 and 0.20 ) Neut %: 56.0 % -- Normal range between ( 34.0 and 71.0 ) Neut #: 3.62 K/uL -- Normal range between ( 1.56 and 6.13 ) Lymph %: 18.9 % -- Normal range between ( 19.3 and 53.1 ) Lymph #: 1.22 x10(3)/uL -- Normal range between ( 1.00 and 3.90 ) IG#: 0.62 x10(3)/uL -- Normal range between ( 0.00 and 0.05 ) IG%: 9.60 % -- Normal range between ( 0.00 and 0.60 ) 03/14/2022 5:30 AM Hypochromia: 1+ Stomatocytes: 1+ Teardrop Cells: 1+ 03/11/2022 2:18 AM Sed Rate Auto: 60 mm/Hr -- Normal range between ( 0 and 30 ) 03/01/2022 10:23 PM NRBC: 1 Urinalysis 03/07/2022 9:05 PM Ur RBC: 21-50 /HPF Urine Nitrite: Negative Urine Leukocyte Esterase: 250 Urine Appearance: Turbid Urine Glucose Dipstick: 3+ Urine Blood Dipstick: Trace Urine Urobilinogen Dipstick: Normal Urine Protein Dipstick: 2+ Ur Bacteria: 1+ Ur Yeast, Buddin+ Ur Squamous Epithelial Cells: NONE /HPF Urine Color: Light-Yellow Ur WBC: 11-20 /HPF Urine Ketones Dipstick: Negative Ur Mucous: 1+ Urine pH Dipstick: 6.5 -- Normal range between ( 6.0 and 8.0 ) Urine Bilirubin Dipstick: Negative Urine Specific Comstock: 1.015 -- Normal range between ( 1.005 and 1.030 ) Urine Type.: U Suprapubic Urine Culture if Indicated: Culture Ordered Microbiology 03/07/2022 9:05 PM Urine Culture: POS 03/06/2022 8:27 PM Blood Culture: See Result 03/04/2022 1:06 PM Culture Bronch Wash and Stain: See Result Viral Culture, Reflexive: No virus isolated. Specimen Source: RLL Micro Comments: sero sang 03/02/2022 5:10 AM Catheter Tip Culture: See Result 03/01/2022 10:23 PM Influenza A: Not Detected Respiratory Syncytial Virus: Not Detected Legionella pneumophila: Not Detected Influenza B: Not Detected Rhinovirus/Enterovirus: Not Detected Human metapneumovirus: Not Detected Adenovirus: Not Detected Staphylococcus aureus: Detected Streptococcus agalactiae: Not Detected Streptococcus pyogenes: Not Detected Streptococcus pneumoniae: Not Detected Haemophilus influenzae: Not Detected Pseudomonas aeruginosa: Not Detected Enterobacter cloacae complex: Not Detected Escherichia coli: Not Detected Klebsiella oxytoca: Not Detected Proteus: Not Detected Serratia marcescens: Not Detected KPC (Carbapenemase): Not Detected Mycoplasma pneumoniae: Not Detected Chlamydia pneumoniae: Not Detected Moraxella catarrhalis: Not Detected CTX-M (ESBL): Not Detected mecA/C and MREJ (Methicillin resistance): Not Detected VIM (Carbapenemase): Not Detected Klebsiella pneumoniae group: Detected A. calco-baumannii complex: Not Detected IMP (Carbapenemase): Not Detected NDM (Carbapenemase): Not Detected Acceptable specimen: Yes,see culture OXA-48-like (Carbapenemase): Not Detected Parainfluenza virus: Not Detected Klebsiella aerogenes: Not Detected Respiratory Culture and Stain: POS Coronavirus (Not COVID-19): Not Detected Blood Bank 03/07/2022 12:38 PM TRANSFUSED: TRANSFUSED 03/07/2022 12:11 PM RBC Product Ready: Done 03/07/2022 11:10 AM ABO/Rh (ECHO): A NEG Antibody Screen: Negative ABSC Crossmatch: Computer XM OK 03/07/2022 10:55 AM # of Units:: 1 Unit General Chemistry 03/20/2022 11:09 AM Glucose POC2: 170 mg/dL -- Normal range between ( 70 and 110 ) Device Comment 1: Device Comment 1 03/20/2022 5:52 AM Device Comment 2: Device Comment 2 03/20/2022 3:28 AM Creatinine Level: 1.40 mg/dL -- Normal range between ( 0.55 and 1.02 ) Sodium Level: 138 mmol/L -- Normal range between ( 136 and 146 ) Potassium Level: 4.7 mmol/L -- Normal range between ( 3.5 and 5.1 ) Chloride Level: 111 mmol/L -- Normal range between ( 102 and 112 ) Carbon Dioxide Level: 20 mmol/L -- Normal range between ( 21 and 32 ) Anion Gap: 12 -- Normal range between ( 9 and 20 ) Bun/Creatinine: 30.7 -- Normal range between ( 8.0 and 20.0 ) Calcium Level: 8.7 mg/dL -- Normal range between ( 8.4 and 10.1 ) eGFR : 46 mL/min/1.73m2 eGFR NonAfrican: 38 mL/min/1.73m2 Glucose Level: 133 mg/dL -- Normal range between ( 74 and 106 ) Blood Urea Nitrogen: 43 mg/dL -- Normal range between ( 7 and 22 ) 03/13/2022 5:40 AM CRP: 1.37 mg/dL -- Normal range between ( 0.00 and 0.30 ) 03/12/2022 6:17 AM Bilirubin Total: 0.6 mg/dL -- Normal range between ( 0.2 and 1.2 ) A/G Ratio: 0.7 -- Normal range between ( 1.1 and 2.5 ) ALT: 24 Units/Liter -- Normal range between ( 13 and 56 ) AST: 18 Units/Liter -- Normal range between ( 5 and 37 ) Globulin: 4.3 Gram/dL -- Normal range between ( 1.5 and 4.5 ) Alk Phos: 52 Units/Liter -- Normal range between ( 27 and 136 ) Magnesium Level: 1.7 mg/dL -- Normal range between ( 1.5 and 2.4 ) Phosphorus: 3.6 mg/dL -- Normal range between ( 2.5 and 4.9 ) Protein Total: 7.4 Gram/dL -- Normal range between ( 6.4 and 8.2 ) Albumin Level: 3.1 Gram/dL -- Normal range between ( 3.4 and 5.0 ) 03/12/2022 5:21 AM Calcium Ionized: 1.17 mmol/L -- Normal range between ( 1.12 and 1.32 ) 03/09/2022 3:37 AM Lactate Dehydrogenase: 143 Units/Liter -- Normal range between ( 84 and 246 ) Lactic Acid Level: 0.5 mmol/L -- Normal range between ( 0.4 and 2.0 ) 03/04/2022 2:15 AM Ammonia Level: 23.0 uMol/L -- Normal range between ( 11.0 and 32.0 ) Body Fluid 03/04/2022 1:06 PM Body Fluid Type: BAL Fl Neutrophils Body Fluid: 90 % -- Normal range between ( 0 and 25 ) Color BF: Yellow Appearance BF: Turbid UMCs Body Fluid: 10 % WBC/Nucleated Cells BF: 15827 /uL -- Normal range between ( 0 and 99692 ) RBC Count BF: 3000 /uL -- Normal range between ( 0 and 77392 ) Body Fluid Review for Pathologist: Body Fluid Review for Pathologist Cardiac Specific Markers 03/12/2022 6:17 AM ProBNP: 2553 pg/mL -- Normal range between ( 0 and 125 ) 03/09/2022 3:37 AM CK: 19 Units/Liter -- Normal range between ( 26 and 192 ) Coagulation 03/12/2022 6:17 AM INR: 1.0 -- Normal range between ( 0.9 and 1.2 ) PTT: 27.5 Second(s) -- Normal range between ( 22.0 and 33.0 ) PT: 10.3 Second(s) -- Normal range between ( 9.2 and 12.0 ) 03/09/2022 3:37 AM Fibrinogen Level: 767 mg/dL -- Normal range between ( 220 and 440 ) Endocrinology 03/12/2022 6:17 AM Procalcitonin: 0.76 ng/mL -- Normal range between ( 0.00 and 2.00 ) Iron Studies 03/05/2022 12:37 PM % Iron Saturation: 14.6 % -- Normal range between ( 15.0 and 55.0 ) Ferritin Level: 173.5 ng/mL -- Normal range between ( 8.0 and 252.0 ) TIBC: 157.0 mcg/dL -- Normal range between ( 250.0 and 450.0 ) Iron Level: 23 mcg/dL -- Normal range between ( 50 and 170 ) Vitamin Chemistry 03/05/2022 12:37 PM Folate Level: 11.10 ng/mL -- Normal range between ( 3.10 and 17.50 ) Diagnostic Radiology 03/12/2022 6:55 AM CR Chest 1 Vw Portable: CR Chest 1 Vw Portable 03/06/2022 10:26 PM CR Abdomen 1 Vw Portable: CR Abdomen 1 Vw Portable Echo 03/09/2022 10:01 AM EC Echo Complete: EC Echo Complete 03/03/2022 10:52 AM EC Lung Ultrasound: EC Lung Ultrasound Vascular Ultrasound 03/02/2022 10:44 AM VL Veins LE Duplex BILAT: VL Veins LE Duplex BILAT Patient Name:ALYSSA MAYORGA I have received and understand this information and was given the opportunity to ask questions. Patient/Sign Language Translator Name: Patient/Sign Language Translator Signature: Relationship to Patient: documented in this encounter Plan of Treatment Not on file documented as of this encounter Visit Diagnoses Not on filedocumented in this encounter
--- OUTSIDE RECORDS SUMMARY | 2025-02-21 13:45 | XMS_ITS | Encounter Summary ---
Author Organization [employer] Address [address] [place] [address] Care Team Providers Care Leather Tacker Name Role Phone Unavailable Primary Care Provider Unavailabl e Encounter Details Date Type Department Care Team (Late st Contact Info) Description 04/11/[address] [facility] Family [facility] [place] [address] ProviderFlorentino MD [address] [place] [address] Social History Tobacco Use Types Packs/Day Years Used Date Smoking Tobacco: Never Assessed Comments Unknown Sex and Gender Information Value Date Recorded Sex Assigned at Not on file Legal Sex Female 1:44 PM CDT Gender Identity Not on file Sexual Orientation Not on file documented as of this encounter Miscellaneous Notes * Cerner Conversion Note - Florentino Lynne MD - 04/11/2022 3:00 AM CDT Nutrition Assessment Entered On: 04/11/2022 8:11 EDT Performed On: 04/11/2022 8:11 EDT by Sujatha Villanueva Dietitian Nutrition Assessment Nutrition Assessment Reason : Follow Up Sujatha Villanueva Dietitian - 04/11/2022 8:11 EDT Current Nutrition Regimen Comment : 04/11: High f/u. Pt was extubated yesterday and is now on 2L NC. Discussed during rounds. CRRT will be stopped this afternoon and pt will be switched to HD. FINANCIAL ANALYST INTERN has been consulted. EN running @ 10ml/hr via corpak, which plans to advance to goal. Pt is off pressor support and she is receiving a PRBC transfusion this morning. 04/09: c/s- PU, EN recs. Pt is [...] previous trach/PEG (2009), cardiac arrest x2 Labs: Na 135, Glu 139, FSB/142 Meds: Pepcid, steroid, heparin, lantus, abx, PRN Ca gluconate Drips: levo @ 0.01mcg/kg/min, Na bicarb + D5 @ 50ml/hr (204 kcals) Diet: NPO EN: Nepro @ 10ml/hr GI: +BS, +corpak, LBM 04/11 Skin: NPWT to L-trochanter, abrasion to L-knee, laceration to vagina, stg 2 PU to R-buttock, MASD to coccyx Ht: 5'4 (per chart hx- varying hts on admit) Wt: 180#/81.8kg (04/08), no new wt (04/11) BMI: 27.4 IBW: 120#, 150% Est nutrient needs: 7275-6600 kcals (22-25 kcal/kg), 125+g pro (1.5 g/kg) *on CRRT, wounds Sujatha Vilalnueva Dietitian - 04/11/2022 10:54 EDT Nutrition Diagnoses Oral or Nutrition Support Intake : Inadequate oral intake Oral or Nutr Support Intake Related To : resp distress Oral or Nutr Support Intake Evidenced by : NPO status, need for EN Oral or Nutrition Support [...] Comment : protein Sujatha Villanueva Dietitian - 04/11/2022 10:54 EDT Nutrition Interventions Enteral/Parenteral Nutrition : Modify rate of enteral nutrition Sujatha Villanueva Dietitian - 04/11/2022 10:54 EDT Monitoring/Evaluation Enteral Nutrition Intake : Tube Feeding Tolerance Weight Status : Weight Maintanence Gastrointestinal Function : Bowel Function Integumentary : Pressure Ulcer Status Sujatha Villanueva Dietitian - 04/11/2022 10:54 EDT Nutrition Recommendations Dietitian Recommendations : 1. Slowly increase Nepro to goal rate of 45ml/hr + give 3 bottles proteinex daily (1962 kcals, 125g pro). FW per MD. Goal: meet est needs 2. If feasible, advance diet per FINANCIAL ANALYST INTERN and MD + 60g CHO restriction. RD to assess for supplements Goal: tolerate PO diet advancement 3. Monitor weight 2x weekly Goal: prevent unintentional wt changes 4. Monitor elytes and replace PRN Goal: elytes WNL High nutrition risk Sujatha Villanueva Dietitian - 04/11/2022 10:54 EDT documented in this encounter Plan of Treatment Not on file documented as of this encounter Visit Diagnoses Not on filedocumented in this encounter
--- OUTSIDE RECORDS SUMMARY | 2025-02-21 13:45 | XMS_ITS | Encounter Summary ---
Author Organization [employer] Address [address] [place] [address] Care Team Providers Care Registered Massage Therapist Name Role Phone Unavailable Primary Care Provider Unavailabl e Encounter Details Date Type Department Care Team (Late st Contact Info) Description 03/19/2022 Transcribed Document [facility] [place] Family Medicine [address] [place] [address] ProviderFlorentino MD [address] [place] [address] Social History Tobacco Use Types Packs/Day Years Used Date Smoking Tobacco: Never Assessed Comments Unknown Sex and Gender Information Value Date Recorded Sex Assigned at Not on file Legal Sex Female 1:44 PM CDT Gender Identity Not on file Sexual Orientation Not on file documented as of this encounter Miscellaneous Notes * Cerner Conversion Note - Florentino ProviderMD - 03/19/2022 1:36 PM CDT Patient: ALYSSA MAYORGA Age: 61 Years Sex: Female : 1960 Subjective Pt has no current complaints. Cr is 1.4 today. Vital Signs T: 36.6 ??C TMIN: 36.6 ??C TMAX: 37.2 ??C HR: 84(Monitored) RR: 18 BP: 134/72 SpO2: 98% HT: 162.56 cm WT: 81.39 kg BMI: 30.8 Oxygen Settings (Last) Oxygen Therapy Mode: Room air (03/19/22 10:22:00) Oxygen Flow Rate: 2 Liter/Min (03/14/22 08:47:00) Intake & Output Totals Last 24 Hours (7a-7a) Input Total: 435.5 mL Output Total: 3250 mL Balance: -2814.5 mL Physical Exam General: Alert, obese, no [...] with their clinic in 6 weeks S/p [facility] at OSH on 02/21 S/p bronchoscopy 03/04 Continuing nasal cannula, BiPAP as needed, doing well on RA #Severe sepsis (POA) secondary to bilateral lower lobe pneumonia Reportedly required Levophed for short time at OSH prior to arriving to our facility Sputum culture + Klebsiella pneumonia PCR + MSSA ID following: cont doxycycline and augmentin for 2 weeks #Acute (resolved) on chronic kidney disease III, resolved Etiology prerenal azotemia/ATN due to severe sepsis/cardiac arrest Baseline creatinine around 1.6, back at baseline (currently 1.4) Nephrology following #Decubitus wounds, POA S/p debridement x3 at OSH, now with large open wound Continue wound care Wound VAC in place #Cardiac arrest At OSH on 02/21 #Acute on chronic anemia Monitor Hgb #Hypernatremia???resolved #Hypertensive urgency--resolved #Chronic medical conditions ??? Paraplegia: Continue PT/OT, Has Chronic Valenzuela --HTN:Continue Bisoprolol, holding Lisinopril ??? Diabetes: SSI, Lantus 28U daily --HLD: Continue Pravastatin Disposition: DC plan in process. Per CM note, BARNEY spoke with Camilla with [facility]. She is looking at the patient again. CM sent updates and reopened the referral. Son had been talking about getting a hospital bed and taking pt home if facility was not going to work out. VTE Prophylaxis - Medical Heparin 5,000 Units, SubCutaneous, Inj, Q8H, Routine, Start 03/01/22 22:00:00 EDT, 03/01/22 19:01:00 EDT (DIANAGENI) Sequential Compression Device Start: 03/01/22 19:03:00 EDT, Bilateral, Length: Knee High, While patient is in bed, [facility] Sequential Compression Device Start: 03/01/22 18:51:00 EDT, Bilateral, Length: Knee High, While patient is in bed, Continuous Order ([facility], Elaine, PHYSICIAN-CLINIC) Medications acetaminophen, 650 mg= 2 Tab, Oral, Q6H, PRN Augmentin 500 mg-125 mg oral tablet, 500 mg= 1 Tab, Oral, BID bisoprolol, 5 mg= 1 Tab, Oral, Daily calcium gluconate, 1 Gram= 100 mL, IV [...] Test Result Date/Time Sodium Level 138 mmol/L 03/19/2022 04:00 EDT Potassium Level 4.4 mmol/L 03/19/2022 04:00 EDT Chloride Level 112 mmol/L 03/19/2022 04:00 EDT Carbon Dioxide Level 20 mmol/L (Low) 03/19/2022 04:00 EDT Anion Gap 10 03/19/2022 04:00 EDT Glucose Level 105 mg/dL 03/19/2022 04:00 EDT Blood Urea Nitrogen 39 mg/dL (High) 03/19/2022 04:00 EDT Creatinine Level 1.40 mg/dL (High) 03/19/2022 04:00 EDT eGFR 46 mL/min/1.73m2 (Low) 03/19/2022 04:00 EDT eGFR NonAfrican 38 mL/min/1.73m2 (Low) 03/19/2022 04:00 EDT Bun/Creatinine 27.9 (High) 03/19/2022 04:00 EDT Calcium Level 8.9 mg/dL 03/19/2022 04:00 EDT Device Comment 1 Notified Nurse RBV 03/19/2022 11:00 EDT Device Comment 1 Protocols Followed 03/19/2022 05:13 EDT Device Comment 1 Notified Nurse RBV 03/18/2022 20:11 EDT Device Comment 1 Notified Nurse RBV 03/18/2022 16:02 EDT Device Comment 2 Notified Nurse RBV 03/19/2022 05:13 EDT Device Comment 2 Protocols Followed 03/18/2022 20:11 EDT Glucose POC2 129 mg/dL (High) 03/19/2022 11:00 EDT Glucose POC2 95 mg/dL 03/19/2022 05:13 EDT Glucose POC2 117 mg/dL (High) 03/18/2022 20:11 EDT Glucose POC2 135 mg/dL (High) 03/18/2022 16:02 EDT WBC 7.0 K/uL 03/19/2022 04:00 EDT RBC 2.84 Million/uL (Low) 03/19/2022 04:00 EDT Hgb 8.0 g/dL (Low) 03/19/2022 04:00 EDT Hct 25.6 % (Low) 03/19/2022 04:00 EDT MCV 90.1 fL 03/19/2022 04:00 EDT MCH 28.2 pg 03/19/2022 04:00 EDT MCHC 31.3 Gram/dL (Low) 03/19/2022 04:00 EDT Platelet Count 170 K/uL 03/19/2022 04:00 EDT MPV 11.4 fL 03/19/2022 04:00 EDT RDW 16.0 % (High) 03/19/2022 04:00 EDT Slide Review No 03/19/2022 04:00 EDT documented in this encounter Plan of Treatment Not on file documented as of this encounter Visit Diagnoses Not on filedocumented in this encounter
--- OUTSIDE RECORDS SUMMARY | 2025-02-21 13:45 | XMS_ITS | Encounter Summary ---
Author Organization [employer] Address [address] [place] [address] Care Team Providers Care Physician Relations Specialist Name Role Phone Unavailable Primary Care Provider Unavailabl e Encounter Details Date Type Department Care Team (Late st Contact Info) Description 04/11/2022 Transcribed Document [facility] [facility] [address] [place] [address] ProviderFlorentino MD [address] [place] [address] Social History Tobacco Use [...] Note - Florentino Lynne MD - 04/11/2022 8:05 AM CDT Patient: ALYSSA AZUL Age: 61 Years Sex: Female : 1960 Subjective Patient was successfully extubated yesterday. Now on 4 L. She is still on low-dose Levophed. Hemoglobin dropped back down to 6.4 and she will be transfused. Very little urine output, 75 cc documented in 24 hours. Has had 4 BMs in the last 24 hours. She is alert and oriented during my exam. Her son is at bedside. She remembers me from prior hospitalization. Has no current complaints. Still on shabana hugger Vital Signs HR: 51(Monitored) RR: 24 BP: 124/60 BP: 107/59(Line) SpO2: 100% Oxygen Settings (Last) Oxygen Therapy Mode: Nasal cannula (04/11/22 07:56:00) Oxygen Flow Rate: 4 Liter/Min (04/11/22 07:56:00) Intake & Output Totals Last 24 Hours (7a-7a) Input Total: 2026.6067 mL Output Total: 75 mL Balance: 1951.6067 mL Physical Exam General: Alert, obese, weak, [...] mood and affect Assessment/Plan #Severe septic shock (POA) Hypothermia, lactic acidosis, leukocytosis, JAVIER, respiratory failure Source wound, UTI ID following: Zyvox, meropenem, micafungin Wound culture + Citrobacter koseri, staph aureus, Corynebacterium species Urine culture + Pseudomonas, E coli Continue weaning vasopressors Stress steroids #Acute hypoxic respiratory failure Intubated on 04/08, extubated 04/[address] chest with trace right effusion Pneumonia PCR negative Continue to wean oxygen #Acute on chronic renal failure stage III With hyperkalemia and anion gap metabolic Acidosis Likely ATN from shock Has a solitary kidney, baseline creatinine 1.4-1.6 Nephrology following Hyper-K treated and resolved S/p bicarb drip Temporary dialysis catheter placed 04/08 and started on CRRT #Encephalopathy--improving Due to severe septic shock, renal failure, acidosis, elevated ammonia (resolved) #Pancreatitis? No changes found on CT scan but elevated lipase Triglycerides WNL #Chronic hydronephrosis Evaluated by urology, no intervention necessary at this time #Left gluteal decubitus ulcer Previous debridement and wound VAC placement #Acute on chronic anemia Transfuse as needed #Bradycardia Sedation induced? Monitor on telemetry #Vulvar lesion Edematous right labia minora Evaluated by gynecology: Recommend perineal ice pads #Diabetes S/p insulin drip Glargine 10 units BID, SSI #Paraplegia Aggressive PT/OT Disposition: Still hospitalized due to - still in ICU. Weaning off levophed. Still on CRRT and TF via corpak At d/c will likely need - abx, [...] 2% topical powder, 1 Application, Topical, BID Dextrose, 25 Gram= 50 mL, IV Push, [...] glargine, 10 Units= 0.1 mL, SubCutaneous, BID Insulin regular injection 100 Units + Sodium Chloride 0.9% intravenous solution 100 mL magnesium sulfate, 2 Gram= 50 mL, IV [...] Diluent for Drip 100 mL sodium bicarbonate injection 150 mEq + Dextrose 5% in Water intravenous solution 1,000 mL sodium phosphate sodium phosphate + Sodium Chloride 0.9% intravenous solution 250 mL vasopressin injection 40 Units [0.03 Units/min] + Dextrose 5% in Water intravenous solution 100 mL Zyvox, 600 mg= 300 mL, IV Piggyback, [id number] Lab Results Test Name Test Result Date/Time pH Art 7.34 (Low) 04/11/2022 06:53 EDT pH Art 7.34 (Low) 04/10/2022 17:14 EDT pCO2 Art 42.3 mmHg 04/11/2022 06:53 EDT pCO2 Art 36.3 mmHg 04/10/2022 17:14 EDT pO2 Art 122.0 mmHg (High) 04/11/2022 06:53 EDT pO2 Art 144.0 mmHg (High) 04/10/2022 17:14 EDT HCO3 Art 23.1 mmol/L 04/11/2022 06:53 EDT HCO3 Art 19.7 mmol/L (Low) 04/10/2022 17:14 EDT BE Art -2.4 mmol/L (Low) 04/11/2022 06:53 EDT BE Art -5.5 mmol/L (Low) 04/10/2022 17:14 EDT sO2 Art 99.6 % 04/11/2022 06:53 EDT sO2 Art >99.1 % 04/10/2022 17:14 EDT tHb Art 6.6 Gram/dL (Low) 04/11/2022 06:53 EDT tHb Art 6.4 Gram/dL (Low) 04/10/2022 17:14 EDT FHHb <2.4 % 04/11/2022 06:53 EDT FHHb <2.4 % 04/10/2022 17:14 EDT ctO2 9.3 mmol/L 04/11/2022 06:53 EDT Delivery Device Type Art Cannula 04/11/2022 06:53 EDT Delivery Device Type Art Cannula 04/10/2022 17:14 EDT Temperature, F Art 98.6 Deg F 04/11/2022 06:53 EDT Temperature, F Art 98.6 Deg F 04/10/2022 17:14 EDT Art Blood Gas (ABG) Site Arterial Line 04/11/2022 06:53 EDT Art Blood Gas (ABG) Site Arterial Line 04/10/2022 17:14 EDT Acceptable Huang's Test Art Non-Applicable 04/11/2022 06:53 EDT Acceptable Huang's Test Art Acceptable 04/10/2022 17:14 EDT Ventilator Mode Art N/A 04/11/2022 06:53 EDT Ventilator Mode Art N/A 04/10/2022 17:14 EDT Oxygen Flow Rate Art 4.0 Liter 04/11/2022 06:53 EDT Oxygen Flow Rate Art 4.0 Liter 04/10/2022 17:14 EDT ABG Num of Draw Attempts 1 04/11/2022 06:53 EDT ABG Num of Draw Attempts 1 04/10/2022 17:14 EDT Sodium Level 135 mmol/L (Low) 04/11/2022 04:00 EDT Sodium Level 138 mmol/L 04/11/2022 00:16 EDT Sodium Level 138 mmol/L 04/10/2022 18:20 EDT Potassium Level 4.0 mmol/L 04/11/2022 04:00 EDT Potassium Level 3.8 mmol/L 04/11/2022 00:16 EDT Potassium Level 4.0 mmol/L 04/10/2022 18:20 EDT Chloride Level 106 mmol/L 04/11/2022 04:00 EDT Chloride Level 107 mmol/L 04/11/2022 00:16 EDT Chloride Level 107 mmol/L 04/10/2022 18:20 EDT Carbon Dioxide Level 23 mmol/L 04/11/2022 04:00 EDT Carbon Dioxide Level 22 mmol/L 04/11/2022 00:16 EDT Carbon Dioxide Level 23 mmol/L 04/10/2022 18:20 EDT Anion Gap 10 04/11/2022 04:00 EDT Anion Gap 13 04/11/2022 00:16 EDT Anion Gap 12 04/10/2022 18:20 EDT Glucose Level 157 mg/dL (High) 04/11/2022 04:00 EDT Glucose Level 144 mg/dL (High) 04/11/2022 00:16 EDT Glucose Level 148 mg/dL (High) 04/10/2022 18:20 EDT Blood Urea Nitrogen 7 mg/dL 04/11/2022 04:00 EDT Blood Urea Nitrogen 8 mg/dL 04/11/2022 00:16 EDT Blood Urea Nitrogen 9 mg/dL 04/10/2022 18:20 EDT Creatinine Level 0.60 mg/dL 04/11/2022 04:00 EDT Creatinine Level 0.50 mg/dL (Low) 04/11/2022 00:16 EDT Creatinine Level 0.70 mg/dL 04/10/2022 18:20 EDT eGFR >60 mL/min/1.73m2 04/11/2022 04:00 EDT eGFR >60 mL/min/1.73m2 04/11/2022 00:16 EDT eGFR >60 mL/min/1.73m2 04/10/2022 18:20 EDT eGFR NonAfrican >60 mL/min/1.73m2 04/11/2022 04:00 EDT eGFR NonAfrican >60 mL/min/1.73m2 04/11/2022 00:16 EDT eGFR NonAfrican >60 mL/min/1.73m2 04/10/2022 18:20 EDT Bun/Creatinine 11.7 04/11/2022 04:00 EDT Bun/Creatinine 16.0 04/11/2022 00:16 EDT Bun/Creatinine 12.9 04/10/2022 18:20 EDT Calcium Level 7.6 mg/dL (Low) 04/11/2022 04:00 EDT Calcium Level 7.6 mg/dL (Low) 04/11/2022 00:16 EDT Calcium Level 7.7 mg/dL (Low) 04/10/2022 18:20 EDT Protein Total 5.9 Gram/dL (Low) 04/11/2022 04:00 EDT Albumin Level 2.2 Gram/dL (Low) 04/11/2022 04:00 EDT Albumin Level 2.1 Gram/dL (Low) 04/11/2022 00:16 EDT Albumin Level 2.1 Gram/dL (Low) 04/10/2022 18:20 EDT Globulin 3.7 Gram/dL 04/11/2022 04:00 EDT A/G Ratio 0.6 (Low) 04/11/2022 04:00 EDT Bilirubin Total 0.6 mg/dL 04/11/2022 04:00 EDT Alk Phos 71 Units/Liter 04/11/2022 04:00 EDT AST 26 Units/Liter 04/11/2022 04:00 EDT ALT 18 Units/Liter 04/11/2022 04:00 EDT Magnesium Level 2.4 mg/dL 04/11/2022 04:00 EDT Phosphorus 4.1 mg/dL 04/11/2022 04:00 EDT Phosphorus 4.4 mg/dL 04/11/2022 00:16 EDT Phosphorus 4.2 mg/dL 04/10/2022 18:20 EDT Device Comment 1 Notified Nurse RBV 04/11/2022 05:55 EDT Device Comment 1 Notified Nurse RBV 04/10/2022 23:50 EDT Device Comment 1 Notified Nurse RBV 04/10/2022 18:08 EDT Device Comment 1 Notified Nurse RBV 04/10/2022 12:02 EDT Device Comment 1 Notified Nurse RBV 04/10/2022 08:28 EDT Glucose POC2 142 mg/dL (High) 04/11/2022 05:55 EDT Glucose POC2 136 mg/dL (High) 04/10/2022 23:50 EDT Glucose POC2 132 mg/dL (High) 04/10/2022 18:08 EDT Glucose POC2 117 mg/dL (High) 04/10/2022 12:02 EDT Glucose POC2 147 mg/dL (High) 04/10/2022 08:28 EDT Lipase Level 919 Units/Liter (High) 04/11/2022 04:00 EDT Lipase Level 638 Units/Liter (High) 04/10/2022 12:51 EDT Lactic Acid Level 0.6 mmol/L 04/10/2022 08:13 EDT Calcium Ionized 1.10 mmol/L (Low) 04/11/2022 04:00 EDT Calcium Ionized 1.13 mmol/L 04/10/2022 20:13 EDT Calcium Ionized 1.11 mmol/L (Low) 04/10/2022 12:51 EDT WBC 10.0 K/uL 04/11/2022 04:00 EDT RBC 2.27 Million/uL (Low) 04/11/2022 04:00 EDT Hgb 6.4 g/dL (Low) 04/11/2022 04:00 EDT Hct 19.7 % (Low) 04/11/2022 04:00 EDT MCV 86.8 fL 04/11/2022 04:00 EDT MCH 28.2 pg 04/11/2022 04:00 EDT MCHC 32.5 Gram/dL 04/11/2022 04:00 EDT Platelet Count 131 K/uL (Low) 04/11/2022 04:00 EDT MPV 9.9 fL 04/11/2022 04:00 EDT RDW 16.8 % (High) 04/11/2022 04:00 EDT nRBC 0.020 (High) 04/11/2022 04:00 EDT Slide Review No 04/11/2022 04:00 EDT documented in this encounter Plan of Treatment Not on file documented as of this encounter Visit Diagnoses Not on filedocumented in this encounter
--- OUTSIDE RECORDS SUMMARY | 2025-02-21 13:45 | XMS_ITS | Encounter Summary ---
Author Organization [employer] Address [address] [place] [address] Care Team Providers Care Tennis Director Name Role Phone Unavailable Primary Care Provider Unavailabl e Encounter Details Date Type Department Care Team (Late st Contact Info) Description 04/25/[address] [facility] Family Medicine [address] [place] [address] ProviderFlorentino MD [address] [place], [...] Note - Florentino Lynne MD - 04/25/2022 2:19 PM CDT UM Authorization Entered On: 04/25/2022 14:19 EDT Performed On: 04/25/2022 14:19 EDT by SARAH MORALES RN Primary Insurance Authorization Authorization and Policy Numbers : Insurance 1 Health Plan: MEDICAID [facility] Policy Number: [id number] Authorization Number: Insurance 2 Health Plan: [facility] Policy Number: [id number] Authorization Number: Insurance Primary Name : [facility] - [id number] Authorization Status-Primary : Denied Reference Number-Primary : [id number]--Lbml[place] Medicaid #[id number] Number of Days Authorized-Primary : 13 Day(s) Authorized Service Begin Date-Primary : 04/08/2022 EDT Authorized Service End Date-Primary : 04/21/2022 EDT Authorization Comments-Primary : Faxed c/s 8/26 via [employer]. Historical Authorization Comments-Primary : Comment 1: PER JOAQUIN @ [facility] THE MANAGERS ARE REQUESTING CLINICAL UPDATE THEY FEEL THEY WILL BE RESPONSIBLE FOR THIS BILL (Digna Kidd, Rn-Utilization Review 04/24/2022 14:50) Comment 2: Information,verified by placing a call to [place] Medicaid. Per the software sales representative spoken to, Keila Lassiter, the care provided to this patient will be technically denied due to late notification,since the patient was admitted on 04/08/2022 and coverage with [place] Medicaid, was initiated on 03/20/2022. 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 PER ELIZA PT IS NOW STRAIGHT MEDICAID. (Shilpi [address], PRIMO 04/18/2022 09:48) Comment 4: Rec faxed outcome of p2p scanned it to denials 2021 file and placed in tray on [employer] desk (SHERIF LYNCH, Customer Relations Consultant 04/16/2022 09:42) Comment 5: Per fax received 04/16 @ 0914am approved after p2p completed. Approved 04/08-04/21 NRD 04/22 (SARAH MORALES RN 04/16/2022 09:32) Comment 6: CLINICAL UPDATE FAXED VIA [employer] 04/11-04/15 ([address], PRIMO 04/15/2022 16:00) Comment 7: Per call to [facility] p2p line Luisa stated p2p took place yes04/14 and denial was OT/approved. Luisa did not have any idea regarding when c/s would be due. VM left for utilization review specialist Sharon. (SARAH MORALES RN 04/15/2022 12:15) Comment 8: Per Dr Perez she is agreeable to attempt p2p on Saturday 04/14. Called Logan back and he scheduled for thursday @ 2pm with Dr William calling Dr Cabello. (SARAH MORALES RN 04/11/2022 11:09) Comment 9: Per DELANEYranfiljesica she did not receive a call to complete this p2p. Called back in & per Orville he can reschedule with a physician. Informed him that I would need to reach out to a diff physician as the one from yesterday is off service now. He stated I can call back in and reschedule. (SARAH MORALES RN 04/11/2022 10:30) Comment 10: Katie agreed to attempt p2p. Scheduled for 04/[address] William calling Katie (SARAH MORALES RN 04/09/2022 15:26) Comment 11: Message sent to Katie for p2p. She has agreed to attempt. (SARAH MORALES RN 04/09/2022 13:02) Comment 12: PER AVAILITY IP AUTH PENDED. CLINICAL FAXED VIA [employer] (Digna Kidd Rn-Utilization Review 04/09/2022 11:31) Comment 13: Denied per fax 04/08/22 @ 1632 no resoning noted. Placed in Denials 2021 folder. (Mallory Sanchez, Bible Reader 04/09/2022 09:43) SARAH MORALES RN - 04/25/2022 14:19 EDT documented in this encounter Plan of Treatment Not on file documented as of this encounter Visit Diagnoses Not on filedocumented in this encounter
--- OUTSIDE RECORDS SUMMARY | 2025-02-21 13:45 | XMS_ITS | Encounter Summary ---
Author Organization [facility] [employer] Address [address] [place] [id number] Care Team Providers Care Residential Sales Associate Name Role Phone Unavailable Primary Care Provider Unavailabl e Encounter Details Date Type Department Care Team (Late st Contact Info) Description 04/12/2022 Transcribed Document [facility] [place] Family Medicine [address] [place] [address] ProviderFlorentino MD [address] [place] [address] Social History Tobacco Use Types Packs/Day Years Used Date Smoking Tobacco: Never Assessed Comments Unknown Sex and Gender Information Value Date Recorded Sex Assigned at Not on file Legal Sex Female 1:44 PM CDT Gender Identity Not on file Sexual Orientation Not on file documented as of this encounter Miscellaneous Notes * Cerner Conversion Note - Florentino Lynne MD - 04/12/2022 10:17 AM CDT Patient: ALYSSA AZUL Age: 61 years Sex: Female : 1960 Associated Diagnoses: None Author: VINNIE SWEENEY MD Subjective Seen and examined at bedside. Feeling much better. Denies chest pain or shortness of breath. Off pressors. CRRT stopped yesterday evening. Urine output remains low; Encourage oral hydration. Monitor for renal recovery. No acute need [...] Daily Pepcid: 20 mg, IV Push, Daily Phoxillum [...] mg, 300 mL, 300 mL/Hr, IV Piggyback, [id number] calcium gluconate: 1 Gram, 100 mL, 100 [...] (See Comment) heparin: 5,000 Units, SubCutaneous, Q8H insulin glargine: 10 Units, SubCutaneous, BID insulin regular sliding scale: Scale C, SubCutaneous, Q6H lactobacillus acidophilus: 1 Cap, Oral, BID magnesium sulfate: 2 Gram, 50 mL, 25 mL/Hr, IV Piggyback, Q1H, PRN: Other (See Comment) meropenem + Sodium Chloride 0.9% intravenous solution 50 mL: 500 mg, 16.67 mL/Hr, IV Piggyback, [id number] micafungin: 100 mg, 100 mL/Hr, IV Piggyback, [id number] phenylephrine injection 80 mg + NaCl 0.9% [...] 1 Tab, Oral, At Bedtime , Medications (32) Active Scheduled: (11) amLODIPine 5 mg tab [...] *PREMIX* 600 mg 300 mL, IV Piggyback, [id number] meropenem + NaCl 0.9% 50 mL 500 mg, IV Piggyback, [id number] micafungin sodium 100 mg, IV Piggyback, [id number] miconazole nitrate 2% pwd 85 g 1 [...] History of obstructive sleep apnea / IMO [id number] / Confirmed Diabetes / SNOMED CT [id number] / Confirmed, Active Problems (6) Chronic kidney disease (CKD), stage III (moderate) Diabetes History of obstructive sleep apnea Hyperlipidemia Hypertension Paraplegia Objective VS/Measurements Vital Signs/Vital Measures 04/12/2022 8:00 EDT Systolic Blood Pressure 179 [...] Rate 19 Breaths/Min Oxygen Saturation 99 % 04/11/2022 23:05 EDT Heart Rate Monitored 54 bpm LOW Respiratory Rate 21 Breaths/Min HI Oxygen Saturation 100 % Oxygen Therapy Mode BiPAP FiO2 30 % 04/11/2022 23:00 EDT Systolic Blood Pressure 113 mmHg Diastolic Blood Pressure 58 mmHg LOW Mean Arterial Pressure (MAP)-BMDI 82 Systolic BP, Arterial Line 1 126 mmHg Diastolic BP, Arterial Line 1 53 mmHg LOW Mean Arterial Pressure, Line 1 74 mmHg 04/11/2022 22:00 EDT Systolic Blood Pressure 109 mmHg Diastolic Blood Pressure 53 mmHg LOW Mean Arterial Pressure (MAP)-BMDI 77 Systolic BP, Arterial Line 1 99 mmHg Diastolic BP, Arterial Line 1 47 mmHg LOW Mean Arterial Pressure, Line 1 65 mmHg Heart Rate Monitored 59 bpm LOW Respiratory Rate 31 Breaths/Min HI Oxygen Saturation 91 % LOW 04/11/2022 21:00 EDT Systolic Blood Pressure 135 mmHg Diastolic Blood Pressure 63 mmHg Mean Arterial Pressure (MAP)-BMDI 91 Systolic BP, Arterial Line 1 132 mmHg Diastolic BP, Arterial Line 1 44 mmHg LOW Mean Arterial Pressure, Line 1 71 mmHg Heart Rate Monitored 61 bpm Respiratory Rate 35 Breaths/Min HI Oxygen Saturation 94 % 04/11/2022 20:00 EDT Systolic Blood Pressure 144 mmHg HI Diastolic Blood Pressure 66 mmHg Mean Arterial Pressure (MAP)-BMDI 95 Systolic BP, Arterial Line 1 152 mmHg HI Diastolic BP, Arterial Line 1 55 mmHg LOW Mean Arterial Pressure, Line 1 82 mmHg Temperature Source Oral Temperature Mode Fahrenheit Temperature, Fahrenheit 100.5 Deg F HI Clinical Temperature, C 38.1 Deg C Heart Rate Monitored 64 bpm Respiratory Rate 38 Breaths/Min HI Oxygen Saturation 95 % FiO2 30 % 04/11/2022 19:16 EDT Heart Rate Monitored 60 bpm Respiratory Rate 24 Breaths/Min HI Oxygen Saturation 95 % Oxygen Therapy Mode Room air 04/11/2022 19:00 EDT Systolic Blood Pressure 112 mmHg Diastolic Blood Pressure 55 mmHg LOW Mean Arterial Pressure (MAP)-BMDI 79 Systolic BP, Arterial Line 1 115 mmHg Diastolic BP, Arterial Line 1 45 mmHg LOW Mean Arterial Pressure, Line 1 67 mmHg 04/11/2022 18:00 EDT Systolic Blood Pressure 110 mmHg Diastolic Blood Pressure 57 mmHg LOW Mean Arterial Pressure (MAP)-BMDI 79 Systolic BP, Arterial Line 1 123 mmHg Diastolic BP, Arterial Line 1 45 mmHg LOW Mean Arterial Pressure, Line 1 69 mmHg Heart Rate Monitored 64 bpm Respiratory Rate 49 Breaths/Min HI Oxygen Saturation 95 % Oxygen Therapy Mode Room air 04/11/2022 17:00 EDT Systolic Blood Pressure 126 mmHg Diastolic Blood Pressure 62 mmHg Mean Arterial Pressure (MAP)-BMDI 89 Systolic BP, Arterial Line 1 134 mmHg Diastolic BP, Arterial Line 1 57 mmHg LOW Mean Arterial Pressure, Line 1 78 mmHg Heart Rate Monitored 60 bpm Respiratory Rate 21 Breaths/Min HI Oxygen Saturation 93 % LOW 04/11/2022 16:00 EDT Systolic Blood Pressure 113 [...] LOW Clinical Temperature, F 94.8 Deg F Electronically signed by Sumaya, Luís Conversion [employer] Financial Developer [employer] at 12/21/2022 5:08 PM CDT documented in this encounter Plan of Treatment Not on file documented as of this encounter Visit Diagnoses Not on filedocumented in this encounter
--- OUTSIDE RECORDS SUMMARY | 2025-02-21 13:45 | XMS_ITS | Encounter Summary ---
Author Organization [facility] [employer] Address [address] [place] [id number] Care Team Providers Care Carpet Cleaner Name Role Phone Unavailable Primary Care Provider Nathalia martin Encounter Details Date Type Department Care Team (Late st Contact Info) Description 04/25/2022 Transcribed Document [facility] [place] [facility] [place] [address] [place] [address] ProviderFlorentino MD [address] [place] [address] Social History Tobacco Use Types Packs/Day Years Used Date Smoking Tobacco: Never Assessed Comments Unknown Sex and Gender Information Value Date Recorded Sex Assigned at Not on file Legal Sex Female 1:44 PM CDT Gender Identity Not on file Sexual Orientation Not on file documented as of this encounter Miscellaneous Notes * Cerner Conversion Note - Historical ProviderMD - 04/25/2022 2:00 AM CDT Enamel Shader Details Entered On: 04/25/2022 5:21 EDT Performed On: 04/25/2022 2:00 EDT by Alma Howell RN Order [...] Crushed/Liquid : No Alma Howell RN - 04/25/2022 5:21 EDT documented in this encounter Plan of Treatment Not on file documented as of this encounter Visit Diagnoses Not on filedocumented in this encounter
--- OUTSIDE RECORDS SUMMARY | 2025-02-21 13:45 | XMS_ITS | Encounter Summary ---
Author Organization [employer] [employer] Address [address] [place] [id number] Care Team Providers Care Leader Tier Name Role Phone Unavailable Primary Care Provider Unavailabl e Encounter Details Date Type Department Care Team (Late st Contact Info) Description 03/20/2022 Transcribed Document [facility] [place] Family Medicine [address] [place] [address] ProviderFlorentino MD [address] [place] [address] Social History Tobacco Use Types Packs/Day Years Used Date Smoking Tobacco: Never Assessed Comments Unknown Sex and Gender Information Value Date Recorded Sex Assigned at Not on file Legal Sex Female 1:44 PM CDT Gender Identity Not on file Sexual Orientation Not on file documented as of this encounter Miscellaneous Notes * Cerner Conversion Note - Florentino Lynne MD - 03/20/2022 9:27 AM CDT Patient: ALYSSA AZUL Age: 61 [...] acetaminophen: 650 mg, Oral, Q6H, PRN: Temperature bisoprolol: 5 mg, Oral, Daily calcium gluconate: 1 Gram, 100 mL, 100 [...] 1 Tab, Oral, At Bedtime , Medications (43) Active Scheduled: (16) albuterol-ipratropium inh 3 mL 3 mL, Nebulized Inhalation, RT_Q6H amoxicillin/clav 500/125 mg tab 500 mg 1 Tab, Oral, BID bisoprolol 5 mg tab 5 mg 1 Tab, Oral, Daily budesonide 0.5 mg/2 mL inh susp 0.5 [...] History of obstructive sleep apnea / IMO [id number] / Confirmed, Active Problems (6) Chronic kidney disease (CKD), stage III (moderate) Diabetes History of obstructive sleep apnea Hyperlipidemia Hypertension Paraplegia Objective VS/Measurements Measurements from flowsheet : Measurements 03/20/2022 5:00 EDT Height Source Chart Height Entry Format Duc[place]ne Height/Length, ANDORRAN (ft) 5 ft Height/Length ANDORRAN 4 Inch CLINICALHEIGHT 162.56 cm Routine Weight Source Bed scale Routine Weight Entry Format [place]ne Routine Weight, Pounds 179 lb Routine Weight, Ounces 1 oz Routine Weight Calculation 81.39 kg Body Mass Index (BMI), Routine 30.8 kg/m2 Body Surface Area (BSA), Routine 1.87 m2 03/19/2022 5:00 EDT Height Source Chart Height Entry Format [place]ne Height/Length, ANDORRAN (ft) 5 ft Height/Length ANDORRAN 4 Inch CLINICALHEIGHT 162.56 cm Routine Weight Source Bed scale Routine Weight Entry Format [place]ne Routine Weight, Pounds 179 lb Routine Weight, Ounces 1 oz Routine Weight Calculation 81.39 kg Body Mass Index (BMI), Routine 30.8 kg/m2 Body Surface Area (BSA), Routine 1.87 m2 , Vitals Signs (last 24 hrs) Last Charted Minimum Maximum Temp 98.3 (MAR 20 06:10) 97.6 (MAR 20 02:40) 98.6 (MAR 19 14:52) Mon HR 59 (MAR 20 06:10) 58 (MAR 20 05:50) 84 (MAR 19 10:21) Resp Rate 16 (MAR 20 06:10) 16 (MAR 19 15:46) 18 (MAR 19 10:21) SBP 114 (MAR 20 06:10) 114 (MAR 20 06:10) H 141 (MAR 19 17:21) DBP 67 (MAR 20 06:10) L 58 (MAR 20 02:40) 70 (MAR 19 23:41) MAP 87 (MAR 20 06:10) 79 (MAR 20 02:40) 87 (MAR 20 06:10) SpO2 98 (MAR 20 08:36) L 89 (MAR 20 06:10) 99 (MAR 19:17) Intake & Output Totals Last 24 Hours (7a-7a) Intake (1 Events) Medications (10 mL) Output (2 Events) Valenzuela Catheter (2700 mL) Input Total: 10 mL Output Total: 2700 mL Balance: -2690 mL General: Alert and oriented, No acute distress. Eye: Extraocular movements are intact, Normal conjunctiva. HENT: Normocephalic, Normal hearing, AT. Neck: Supple, Non-tender, No jugular venous distention. Respiratory: Lungs are clear to auscultation, Symmetrical chest wall expansion. Cardiovascular: Normal rate, Trace edema. Gastrointestinal: Soft, Non-tender, Non-distended. Genitourinary: + Valenzuela. Integumentary: Warm, Dry, Shickley. Neurologic: Alert, Oriented, No focal deficits. Psychiatric: Cooperative, Appropriate mood & affect. Results Review Labs (Last four charted values) WBC 7.0 [...] L 137 (MAR 16) Na 138 (MAR 20) 138 (MAR 19) 140 (MAR 18) 141 (MAR 17) K 4.7 (MAR 20) 4.4 (MAR 19) 4.5 (MAR 18) 4.4 (MAR 17) Cl 111 (MAR 20) 112 (MAR 19) 112 (MAR 18) 111 (MAR 17) CO2 L 20 (MAR 20) L 20 (MAR 19) L 19 (MAR 18) 22 (MAR 17) BUN H 43 (MAR 20) H 39 (MAR 19) H 43 (MAR 18) H 51 (MAR 17) Cr H 1.40 (MAR 20) H 1.40 (MAR 19) H 1.50 (MAR 18) H 1.60 (MAR 17) Glu R H 133 (MAR 20) 105 (MAR 19) H 142 (MAR 18) H 176 (MAR 17) Ca 8.7 (MAR 20) 8.9 (MAR 19) 9.1 (MAR 18) 9.1 (MAR 17) Lactic 0.5 (MAR 09) 0.5 (MAR 04) [...]
--- OUTSIDE RECORDS SUMMARY | 2025-02-21 13:45 | XMS_ITS | Encounter Summary ---
Author Organization [facility] [employer] Address [address] [place] [address] Care Team Providers Care Instructor Looping Name Role Phone Unavailable Primary Care Provider Unavailabl e Encounter Details Date Type Department Care Team (Late st Contact Info) Description 02/23/2022 Transcribed Document [facility] [place] [address] [place] [address] ProviderFlorentino MD [address] [place] [address] Social History Tobacco Use [...] Note - Florentino Lynne MD - 02/23/2022 10:23 AM CDT Patient: ALYSSA AZUL Age: 61 years Sex: Female : 1960 Associated Diagnoses: None Author: TORRES MARTINEZ MD-NEP Subjective Patient reintubated overnight. Objective VS/Measurements Vitals Signs (last 24 hrs) Last Charted Minimum Maximum Temp 99.3 (FEB 23 05:40) 98.8 (FEB 23 04:45) 99.6 (FEB 22 12:00) Mon HR 74 (FEB 23 08:08) 63 (FEB 22 21:00) 88 (FEB 22 11:41) Resp Rate 20 (FEB 23 08:08) 20 (FEB 22 11:00) H 54 (FEB 23 01:45) SBP H 146 (FEB 23 06:45) 99 (FEB 22 12:00) H 179 (FEB 22 13:15) DBP 79 (FEB 23 06:45) L 51 (FEB 22 19:00) H 96 (FEB 22 12:30) MAP 106 (FEB 23 06:45) 74 (FEB 22 12:00) 117 (FEB 22 13:15) SpO2 100 (FEB 23 08:08) L 90 (FEB 22 12:30) 100 (FEB 22 18:45) Intake & Output Totals Last 24 Hours (7a-7a) Intake (60 Events) Continuous Infusions (644.77 mL) Medications (832.29 mL) Enteral Additional Water Given (500 mL) Oral Intake (150 mL) Output (11 Events) Urine Voided (Volume) (1945 mL) Input Total: 2127.06 mL Output Total: 1945 mL Balance: 182.06 mL Physical exam contact may be limited [...] charted values) WBC 6.5 (FEB 23) 8.9 (CATRACHITA 25) H 18.6 (CATRACHITA 24) HB L 7.9 (FEB 23) L 6.6 (CATRACHITA 26) L 8.1 (CATRACHITA [...] 25) CO2 21 (CATRACHITA 26) L 20 (FEB 23) 21 (FEB 22) L 12 (FEB 22) BUN H 51 (FEB 23) H 53 (FEB 23) H 55 (FEB 22) H 50 (FEB 22) Cr H 3.04 (FEB 23) H 3.13 (FEB 23) H 3.11 (FEB 22) H 2.83 (FEB 22) Glu R 74 (FEB 23) H 121 (FEB 23) C 470 (FEB 22) H 229 (FEB 22) Ca L 6.8 [...] (FEB 21) Impression and Plan ARF: Creatinine lei further yesterday to 3.1 from 2.8 however have stabilized overnight with nonoliguric urine output.. Patient likely with prerenal azotemia due to hypotension which may be evolving to ATN along with possible Vanco toxicity.. FeNa borderline at 1.3% with a low Fe urea 25%. Vancomycin level noted to be >50 on repeat today.. For now continue supportive care. Optimize volume. Continue to hold further vancomycin for now. Monitor strict I's and O's. Hopefully renal function will recover quickly. No emergent indication for dialysis at this time. Sepsis: Patient with pneumonia and hip ulceration. Patient on antibiotics. May have component of cardiogenic shock with post op cardiac arrest. Albumin quite low. Remains off pressors despite reintubation overnight. Support blood pressure with albumin as needed. Hyponatremia: Sodium increased overnight with sodium load due to bicarb. Improved this morning. All fluids hypotonic. Hypokalemia: Potassium down with insulin drip and bicarb administration. Replace gently to keep >3.5. We will give magnesium to keep >2.0. Metabolic acidosis: Initially bicarb levels quite low with renal failure along with chloride overload.. Patient was getting IV bicarb. Now pH up to 7.5 with low PCO2 on ventilator. No further bicarbonate for now. We will continue to avoid chloride loading. All fluids nonchlorinated as able. Anemia: Hemoglobin back up to 7.6 post transfusion for hemoglobin 6.8. Transfuse as needed for Hgb <7 Volume: Patient did not look particularly overloaded clinically yesterday, however patient's respiratory status was worsening with vascular congestion on chest x-ray. Patient did receive diuretics with good response though with rising creatinine. Appears fairly euvolemic today. I's and O's matched overnight. Avoid diuretics as able. Monitor strict I's and O's. Decubitus ulcer post debridement Pneumonia: On antibiotics Respiratory failure: Back on vent overnight. High risk and complexity critically ill patient. documented in this encounter Plan of Treatment Not on file documented as of this encounter Visit Diagnoses Not on filedocumented in this encounter
--- OUTSIDE RECORDS SUMMARY | 2025-02-21 13:45 | XMS_ITS | Encounter Summary ---
Author Organization [employer] [employer] Address [address] [place] [id number] Care Team Providers Care Stranding Supervisor Name Role Phone Unavailable Primary Care Provider Unavailabl e Encounter Details Date Type Department Care Team (Late st Contact Info) Description 02/23/2022 Transcribed Document [facility] [place] [address] [place] [address] ProviderFlorentino MD [address] [place] [address] Social History Tobacco Use Types Packs/Day Years Used Date Smoking Tobacco: Never Assessed Comments Unknown Sex and Gender Information Value Date Recorded Sex Assigned at Not on file Legal Sex Female 1:44 PM CDT Gender Identity Not on file Sexual Orientation Not on file documented as of this encounter Miscellaneous Notes * Cerner Conversion Note - Historical ProviderMD - 02/23/2022 8:29 AM CDT Attempt to Treat, PT Entered On: 02/23/2022 8:33 EDT Performed On: 02/23/2022 8:29 EDT by JONATHAN EDEN PT Attempt to Treat Unable to Treat Due To : Patient on hold Inability to Treat Comment : Pt intubated and sedated. Notification : Discussed with JONATHAN SCRUGGS, PT - 02/23/2022 8:29 EDT documented in this encounter Plan of Treatment Not on file documented as of this encounter Visit Diagnoses Not on filedocumented in this encounter
--- OUTSIDE RECORDS SUMMARY | 2025-02-21 13:45 | XMS_ITS | Encounter Summary ---
Author Organization [facility] Address [address] [place] [address] Care Team Providers Care Obiee Report Developer Name Role Phone Unavailable Primary Care Provider Unavailabl e Encounter Details Date Type Department Care Team (Late st Contact Info) Description 04/25/2022 Transcribed Document [facility] [place] Family Medicine [address] [place] [address] ProviderFlorentino MD [address] [place] [address] Social History Tobacco Use Types Packs/Day Years Used Date Smoking Tobacco: Never Assessed Comments Unknown Sex and Gender Information Value Date Recorded Sex Assigned at Not on file Legal Sex Female 1:44 PM CDT Gender Identity Not on file Sexual Orientation Not on file documented as of this encounter Miscellaneous Notes * Cerner Conversion Note - Florentino Lynne MD - 04/25/2022 8:45 AM CDT On Going Discharge Planning Entered On: 04/25/2022 8:49 EDT Performed On: 04/25/2022 8:45 EDT by EMIL GIRALDO RN - Air Brakes InspectorCco Progress Note Discharge Arrangements : Patient Post-Acute [...] Explained : Yes EMIL GIRALDO RN - Air Brakes Inspector - 04/25/2022 8:45 EDT Narrative Progress Note Narrative Progress Note : CMs first day with this patient. CM talked with her this morning and she still wants to go home with her son to [address] [place] [address]. She needs a wheelchair and the process to get one ordered was started at [facility]. CM contacted them this morning and they are working on getting that signed off and ordered. CM contacted wound care because her AKANKSHA wound vac has been having a lot of drainage and we need to know if she can go home on the akanksha or will need a full size wound vac. Waiting for wound care guidance. Cm also spoke with ID doctor. Patient cannot leave with her IJ and and not appropriate for a PICC. Last day of IV abx is . Possible set up at [facility] for peripheral? ID will make a decision on this, no orders at this time. Discharge pending: wheelchair (pt is paraplegic), wound vac decision, IV abx decision. Historical Progress Note : Pt will only be able to do outpatient services at [facility] Pt can't have PICC so concern about if [facility] willing to do IV abx with only peripheral IVs CM was told that akanksha drain was put out significant drainage & may need to revert back to wound vac Due to uncertainty of wound vs akanksha drain, CM has not pursued [facility] for wound care Son confirms he can take pt for care CM will try to final DC plans once akanksha vs wound vac determined CM will continue to follow Adalid Castro, DEMOLITION CRANE OPERATOR NON-EXEMPT - 04/24/22 16:39:25 CM was unable to find services for pt Pt still declines [facility] offer to start percert Pt plans to go home with family Wound vac has now been changed to akanksha drain Son said he can transport pt to [facility] weekly for akanksha drain changes IV abx ends 2022 DC plan is home with family plus outpt follow up CM will continue to follow Adalid Castro DEMOLITION CRANE OPERATOR NON-EXEMPT - 04/23/22 16:05:54 Pt had DC order, but too many unresolved DC issues Pt declines offer for [facility] to start precert Pt wants to DC home with son Concern is finding HH Outpatient wound vac changes may be problem as son & DIL work during day [employer] referral made for IV abx HH may not be secured due to insurance & area Son lives in [place], [place] Pending issues: wound vac, IV abx & HH services CM will continue to follow Adalid Castro, DEMOLITION CRANE OPERATOR NON-EXEMPT - 04/22/22 16:43:07 Cm spoke with [...] going to facility if it is in [place]. Cm faxed to [facility] per permission from family. CM will continue to follow. ERIK GALARZA, Sanitation Truck Cleaner-Lead Solutions Architect - 04/18/22 13:51:52 Patient has been declined by all HH agencies. CM spoke to patient is open to [facility] however, [facility] does not have an open bed [...] CM will continue to follow. ERIK GALARZA Sanitation Truck Cleaner-Lead Solutions Architect - 04/17/22 14:39:18 Patient requested CM speak with her daughter in law. Cm spoke with DIN who reported patient wants to discharge home with HH and DME. She will need a BSC for sure. If possible she would like to have a new CPAP as her's is old and needs replaced. Unsure of company name but maybe [facility]. Patient has all other DME. Patient does not have a preference of HH agency but wants it to be in area and with insurance. CM will continue to follow and set up DME and HH. ERIK GALARZA Sanitation Truck Cleaner-Lead Solutions Architect - 04/16/22 15:45:27 home health referral made to [facility] to assist with HH placement. very few HH agencies participate with pt's insurance so wound vac may need management at wound clinic. pt may have to do outpt PT is she delines snf-swing bed-ltach. CLAUDIA, TRISTAN, RN-Air Brakes Inspector - 04/15/22 12:07:49 RRS HIGH, LOS 7, ELOS 5 Ethqat-zlv-zxq-ghodqjjhduwq-tgsxlxdaftro-opguvqioe acidosis HX paraplegia since age 8 L. trochanter-- 11.0cmx6.5cmx2.0cm-current with wound vac CRRT off since 04/11-- possible catheter removal 8.16 Wqeuf9pqakhfnkqz-kpitkxrsw Pt was discharged to [facility] in 03.21. family refuses to return to [facility] and [facility] declined to accept back. Spoke with pt and she wishes to dc home with her son. She will need , PT for transfers as PLOF was independent, she will need wound vac and son will provide transportation. APS following: Aimee Payne, TRISTAN TAYLOR, RN-Air Brakes Inspector - 04/15/22 11:57:48 HD# 3. elos: 5. rar: high acute hypoxic resp failure. severe sepsis: shock. campos/ckd. acute pancreatitis. diabetes. paraplegia. covid 19: negative 04-08. bipap 30%/ra. zyvox/merrem/micafungin iv. wound vac: left trochanter. corpak tube feeds. PT/OT: eob. ST: cleared for diet. no dialysis. APS following: Iamee Kumar, . left message with updates. dcp: family decline return to [facility]. new referral [facility]. sent [facility]. spoke with bessie granda coordintor. they hope she will improve to dc home with them in [place]. FREDO, son, legal next of kin: [phone] Divine, daughter in law: [phone] SHERIF PAYNE RN-Air Brakes Inspector - 04/14/22 10:45:05 HD# 3. elos: 5. rar: high acute hypoxic resp failure. severe sepsis: shock. campos/ckd. acute pancreatitis. diabetes. paraplegia. covid 19: negative 8-9. extubated 8-. 02 4L nc. crrt. levophed gtt. bicarb gtt. zyvox/merrem/micafungin iv. wound vac: left trochanter. APS following: Aimee Kumar, . dcp: family decline return to [facility]. they hope she will improve to dc home with them in [place]. not ltac candidate at this time due to crrt. FREDO, son, legal next of kin: [phone] Divine, daughter in law: [phone] SHERIF PAYNE RN-Air Brakes Inspector - 04/11/22 09:13:49 late entry for this am. Aimee Payne, [facility] dialysis social worker was on site this am. she spoke with clover Bowen rn, interviewed pt's son and spoke with Ms. azul who was awake on ventilator. she left number for claudia Groevs sound to call her at Yaneli's convenience. provided medical records as requested. SHERIF PAYNE RN-Air Brakes Inspector - 04/10/22 15:40:22 HD# 2. elos: 5. rar: high acute hypoxic resp failure. severe sepsis: shock. campos/ckd. acute pancreatitis. diabetes. paraplegia. covid 19: negative 8-9. following commads. mechanical ventilation. crrt. fentanyl gtt. insulin gtt. levophed gtt. evaluation Dr Abraham, scrap drop crane operator. see her notes. no vaginal laceration. return call from Gayathri Pimentel, . she contacted lorrie Cohen for [facility], [facility], [facility] with family concerns. [phone]. APS accepted case: [id number]. dcp: family decline return to [facility]. they hope she will improve to dc home with them in [place]. spoke with Monique Groves PA, sound attending. clover Bowen RN. SHERIF PAYNE RN-Air Brakes Inspector - 04/10/22 09:41:02 received email from aps. they have accepted & will assign to dialysis social worker. SHERIF PAYNE RN-Air Brakes Inspector - 04/09/22 15:19:44 APS reported filed. [id number]. spoke with clover Bowen rn, Amber, community case manager & Mary, house painter helper. SHERIF PAYNE RN-Air Brakes Inspector - 04/09/22 12:07:07 EMIL GIRALDO, RN - Air Brakes Inspector - 04/25/2022 8:45 EDT documented in this encounter Plan of Treatment Not on file documented as of this encounter Visit Diagnoses Not on filedocumented in this encounter
--- OUTSIDE RECORDS SUMMARY | 2025-02-21 13:45 | XMS_ITS | Encounter Summary ---
Author Organization [employer] [facility] [employer] Address [address] [place] [address] Care Team Providers Care Visual Effects Artist Name Role Phone Unavailable Primary Care Provider Nathalia martin Encounter Details Date Type Department Care Team (Late st Contact Info) Description 04/25/2022 Transcribed Document [facility] [place] Family Medicine [address] [place] [address] ProviderFlorentino MD [address] [place] [address] Social History Tobacco Use Types Packs/Day Years Used Date Smoking Tobacco: Never Assessed Comments Unknown Sex and Gender Information Value Date Recorded Sex Assigned at Not on file Legal Sex Female 1:44 PM CDT Gender Identity Not on file Sexual Orientation Not on file documented as of this encounter Miscellaneous Notes * Cerner Conversion Note - Historical ProviderMD - 04/25/2022 5:00 AM CDT Chart Check - Review Order Profile Entered On: 04/25/2022 5:21 EDT Performed On: 04/25/2022 5:00 EDT by Alma Howell RN Chart Check Powerplans Initiated/Discontinued as Appropriate : Yes All Active Orders Reviewed : Yes Alma Howell RN - 04/25/2022 5:21 EDT Electronically signed by Sumaya [facility] Conversion Remodeler Cerner at 12/21/2022 5:07 PM CDT documented in this encounter Plan of Treatment Not on file documented as of this encounter Visit Diagnoses Not on filedocumented in this encounter
--- OUTSIDE RECORDS SUMMARY | 2025-02-21 13:45 | XMS_ITS | Encounter Summary ---
Author Organization [facility] Address [address] [place] [address] Care Team Providers Care Floral Design Teacher Name Role Phone Unavailable Primary Care Provider Unavailabl e Encounter Details Date Type Department Care Team (Late st Contact Info) Description 04/25/2022 Transcribed Document [facility] [place] [facility] [place] [address] ProviderFlorentino MD [facility] [place] [address] Social History Tobacco Use Types Packs/Day Years Used Date Smoking Tobacco: Never Assessed Comments Unknown Sex and Gender Information Value Date Recorded Sex Assigned at Not on file Legal Sex Female 1:44 PM CDT Gender Identity Not on file Sexual Orientation Not on file documented as of this encounter Miscellaneous Notes * Cerner Conversion Note - Florentino ProviderMD - 04/25/2022 3:44 PM CDT Discharge Summary, PT Entered On: 04/25/2022 15:46 EDT Performed On: 04/25/2022 15:44 EDT by KAREN DE LUNA, PT Discharge Summary Reason for Discharge : Discharged from hospital Discharged to, Therapy : Home, with hospice Discharge Equipment, PT : None KAREN DE LUNA, PT - 04/25/2022 15:44 EDT Discharge Summary Comment, PT : When last seen by PT the patient was dependently transferred bed>w/c due to the presence of a wound vac dressing. She wheeled independently and was returned to supine to the bed. She is to discharge home with the assistance of her son and [facility] wound care. KAREN DE LUNA, PT - 04/25/2022 15:46 EDT Short Term Goals Mobility/Bed Mobility STG PT Grid Goal #1 Activity : Supine to sit Assist : Assist, moderate Equipment : Rail, bed Date to Meet : 04/19/2022 EDT Goal Status : Goal met Date Met : 04/13/2022 EDT KAREN DE LUNA, PT - 04/25/2022 15:46 EDT Transfer STG Grid Goal #1 Destination : Wheelchair, standard Type : Squat Pivot Sit Assist : Assist, moderate Equipment : Belt, gait Date to Meet : 04/19/2022 EDT Goal Status : Not met Comment : see below KAERN DE LUNA, PT - 04/25/2022 15:46 EDT Other PT STG Grid Goal #1 Goal : Pt will propel w/c 50' with supervision Date to Meet : 04/19/2022 EDT Goal Status : Goal met Date Met : 04/25/2022 EDT KAREN DE LUNA, PT - 04/25/2022 15:46 EDT Snf Goals Mobility/Bed Mobility LTG PT Grid Goal #1 Activity : Supine to sit Assist : Supervision or set-up Equipment : Rail, bed Date to Meet : 04/26/2022 EDT Goal Status : Not met KAREN DE LUNA, PT - 04/25/2022 15:46 EDT Transfer LTG Grid Goal #1 Destination : Wheelchair, standard Type : Squat Pivot Sit Assist : Supervision or set-up Equipment : Belt, gait Date to Meet : 04/26/2022 EDT Goal Status : Not met Comment : see below KAREN DE LUNA, PT - 04/25/2022 15:46 EDT Other PT LTG Grid Goal #1 Other : Pt will propel w/c 200' independently Date to Meet : 04/26/2022 EDT Goal Status : Goal met Date Met : 04/25/2022 EDT KAREN DE LUNA, PT - 04/25/2022 15:46 EDT documented in this encounter Plan of Treatment Not on file documented as of this encounter Visit Diagnoses Not on filedocumented in this encounter
--- OUTSIDE RECORDS SUMMARY | 2025-02-21 13:45 | XMS_ITS | Encounter Summary ---
Author Organization [employer] Address [address] [place] [address] Care Team Providers Care Clock Maker Name Role Phone Unavailable Primary Care Provider Unavailabl e Encounter Details Date Type Department Care Team (Late st Contact Info) Description 04/25/2022 Transcribed Document [facility] [place] Family Medicine [address] [place] [address] ProviderFlorentino MD [address] [place] [address] Social History Tobacco Use Types Packs/Day Years Used Date Smoking Tobacco: Never Assessed Comments Unknown Sex and Gender Information Value Date Recorded Sex Assigned at Not on file Legal Sex Female 1:44 PM CDT Gender Identity Not on file Sexual Orientation Not on file documented as of this encounter Miscellaneous Notes * Cerner Conversion Note - Florentino Lynne MD - 04/25/2022 5:49 PM CDT Patient: ALYSSA AZUL Age: 61 years Sex: Female : 1960 Associated Diagnoses: None Author: CHICA RAZA MD-[facility] Subjective Chief complaint. 04/25/22 awake weak no fever Health Status Allergies: [...] History of obstructive sleep apnea / IMO [id number] / Confirmed Diabetes / SNOMED CT 267806782 / Confirmed, Active Problems (6) Chronic kidney disease (CKD), stage III (moderate) Diabetes History of obstructive sleep apnea Hyperlipidemia Hypertension Paraplegia Objective VS/Measurements Vitals Signs (last 24 hrs) Last Charted Minimum Maximum Temp 99.3 (APR 25 15:38) 97.9 (APR 25 02:52) H 99.9 (APR 24 19:16) Mon HR 91 (APR 25 15:38) 89 [...] 15:38) 80 (APR 25 15:38) 117 (APR 24 19:16) SpO2 95 (APR 25 15:38) L 92 (APR 25 08:20) 96 (APR 24 23:06) General: Alert and oriented, No acute distress. [...] 18. Hypertension. Disposition: home in am on oral abx DW CM time spent 33 min documented in this encounter Plan of Treatment Not on file documented as of this encounter Visit Diagnoses Not on filedocumented in this encounter
[2025-02-21 14:28] LABS: Appearance,Urine CLEAR (Clear); Bilirubin,Urine Negative (Negative); Blood, Urine Negative (Negative); Color,Urine YELLOW (Yellow); Glucose,Urine (UA) Negative (Negative); Ketones,Urine Negative (Negative); Leukocyte Esterase,Urine Negative (Negative); Nitrate,Urine Negative (Negative); Protein,Urine 2+ (Negative); Specific Gravity, Urine 1.015 (1.005-1.030); Urobilinogen,Urine 0.2 EU/dl (0.2)
--- NOTE | 2025-02-21 14:30 | MM_ITS ---
PROCEDURE INFORMATION: Exam: MG Bilateral Screening 3D Mammography Exam date and time: 02/21/2025 2:05 PM Age: 64 years old Clinical indication: Screening examination. TECHNIQUE: Imaging protocol: Bilateral Screening tomosynthesis and 2D mammography including computer-aided detection (CAD) when performed. COMPARISON: 1. MG SCBI MM Dig screening mamm BI w/CAD 07/13/2018 3:35 PM 2. MG DMSB DIG MAMM-SCREEN CIRA W/CAD 06/23/2017 2:21 PM FINDINGS: MAMMOGRAPHY: Breast composition: There are scattered areas of fibroglandular density. Mass: None. Architectural distortion: None. Calcifications: No suspicious calcifications. Asymmetric density: None. Skin thickening: None. Axillary adenopathy: None. IMPRESSION: No mammographic evidence of malignancy. Annual screening is recommended unless otherwise clinically indicated. ASSESSMENT: BI-RADS Category 1: Negative.
[2025-02-21 14:41] LABS: Creatinine,Urine Random 20 mg/dL (Not Estab.)
[2025-02-21 14:48] LABS: Albumin Level 3.9 g/dl (3.5-5.0); Chloride 98 mmol/L (98-107); Potassium 3.8 mmoL/L (3.5-5.1); Sodium 136 mmol/L (136-145)
[2025-02-21 14:51] LABS: Anion Gap 16.8 mEq/L (5-15); Blood Urea Nitrogen 63 mg/dl (7-17); Calcium 8.8 mg/dl (8.4-10.2); Carbon Dioxide 25 mmol/L (22.0-30.0); Estimated Glomerular Filt Rate 38 ml/min (>60); GFR (African American) 46 ML/MIN (>60); Glucose 182 mg/dl (74-100)
[2025-02-21 14:58] LABS: Basophils % 0.3 % (0.1-2.0); Eosinophils # 0.1 Kmm3 (0.0-0.4); Eosinophils % 1.2 % (0.1-12.0); Hematocrit 32.8 % (37.0-47.0); Hemoglobin 11.4 g/dL (12.2-16.2); Immature Granulocytes # 0.05 10^3uL; Immature Granulocytes % 0.9 %; Lymphocytes # 0.7 K/mm3 (0.7-4.5); Lymphocytes % 11.7 % (10-50); Mean Corpuscular HGB Conc 34.8 g/dL (31.8-35.4); Mean Corpuscular Volume 86.3 fl (81-99); Mean Platelet Volume 10.9 fl (7.4-10.4); Monocytes # 0.3 K/mm3 (0.1-1.0); Monocytes % 5.3 % (1.7-9.3); Neutrophils # 4.7 K/mm3 (1.8-7.8); Neutrophils % 80.6 % (37.0-80.0); Nucleated Red Blood Cells # 0 10^3/uL; Nucleated Red Blood Cells % 0 %; Platelet Count 148 K/mm3 (142-424); Red Cell Distribution Width 12.7 % (11.5-17.5); Red Cell Distribution Width-SD 39.8 fL; White Blood Count 5.8 K/mm3 (4.8-10.8)
[2025-02-21 15:00] LABS: Bacteria,Urine Trace /lpf; RBC,Urine Occasional #/hpf (0-3); Squamous Epithelial Cell,Urine Occasional #/hpf (0-5)
== END 2025-02-21 23:59 | disposition home or self-care (01) ==
LOC: RAD 13:31
PROVIDERS: Student in an Organized Health Care Education/Training Program; PCP Internal Medicine; Visit Provider Internal Medicine
DX: Z12.31 Encounter for screening mammogram for malignant neoplasm of breast (principal); R92.323 Mammographic fibroglandular density, bilateral breasts; N18.32 Chronic kidney disease, stage 3b
CPT/HCPCS: 36415; 77063; 77067; 80069; 81001; 82570; 84156; 85025; 87086

== ENCOUNTER 2025-03-01 13:56 | Outpatient (RCR) | payer OTHER, SELFPAY | END 2025-03-01 23:59 | disposition home or self-care (01) | LOC: PT 13:56 | PROVIDERS: PCP Internal Medicine; Visit Provider Internal Medicine | DX: L89.322 Pressure ulcer of left buttock, stage 2 (principal) | CPT/HCPCS: 97597 ==

== ENCOUNTER 2025-05-23 14:35 | Outpatient (CLI) | payer MEDICARE, OTHER, SELFPAY ==
--- OUTSIDE RECORDS SUMMARY | 2025-05-23 14:40 | XMS_ITS ---
Author Organization Unknown TREATMENT PLAN Planned Care Start Date Provider Encounter for Check-up [id number] [facility]
--- OUTSIDE RECORDS SUMMARY | 2025-05-23 14:40 | XMS_ITS | Clinical Summary ---
Author Organization [facility] Address [address] [place] [address] Phone Care Team Providers Care Die Press Operator Name Role Phone Gama Encinas MD Unavailable [ ] Conditions or Problems Problem Name Problem Code Onset Date Status Entry Date Provider Comment Standard Description Annotate Pressure ulcer of left buttock, stage 3 392508672227 90558 (SNOMED CT) 05/11 Active 05/11 Giulia Jairon Pressure injury of buttock stage III Pressure ulcer of left buttock, stage 2 256044542332 09 (SNOMED CT) 05/11 Active 05/11 Giulia Jairon Pressure injury of left buttock stage II Citrobacter infection B96.89 (ICD-10-CM) 05/11 Active 05/11 Giulia Jairon Other specified bacterial agents as the cause of diseases classified elsewhere MRSA infection 530465593 (SNOMED CT) 05/11 Active 05/11 Giulia Jairon Methicillin resistant Staphylococcus aureus infection Corynebacteri um infection B96.89 (ICD-10-CM) 05/11 Active 05/11 Giulia Jairon Other specified bacterial agents as the cause of diseases classified elsewhere Klebsiella infection B96.1 (ICD-10-CM) 05/11 Active 05/11 Giulia Jairon Klebsiella pneumoniae [K. pneumoniae] as the cause of diseases classified elsewhere Urinary tract infection (UTI) 58682686 (SNOMED CT) 05/11 Active 05/11 Giulia Jairon Urinary tract infectious disease Acute renal failure due to dehydration 324637977 (SNOMED CT) 05/11 Active 05/11 Giulia Jairon [...] diabetes mellitus without complications Benign Essential Hypertension 55902237 (SNOMED CT) 05/11 Active 05/11 Giulia De La O Benign hypertension Medications Medication Instructions Start Date Stop Date Generic Name NDC Provider ACETAMINOPHEN 325 MG TABS 2 Tab, PRN, Oral, Q6H acetaminophen 03263044864 Ana Maria Aguiar BISOPROLOL FUMARATE 5 MG TABS 1 Tab, Oral, Daily bisoprolol fumarate 22188802510 Ana Maria Aguiar CEFUROXIME AXETIL 500 MG TABS 1 Tab, Oral, BID cefuroxime axetil 68045013678 Ana Maria Aguiar FARXIGA 10 MG TABS 1 Tab, Oral, Daily dapagliflozin 30955580371 Ana Maria Aguiar FERROUS SULFATE 325 (65 Fe) MG TABS 1 Tab, Oral, BID ferrous sulfate 84354629928 Ana Maria Aguiar PRAVASTATIN SODIUM 40 MG TABS 1 Tab, Oral, At Bedtime pravastatin 33765288421 Ana Maria Aguiar DOCUSATE SODIUM 100 MG CAPS 1 Cap, PRN, Oral, BID docusate sodium 86072095800 Ana Maria Aguiar FOSAMAX PLUS D 70-2800 MG-UNIT TABS 1 Tab, Oral, Weekly alendronate-josephine min d3 85819436079 Ana Maria Aguiar LOVAZA 1 GM CAPS 2 Cap, Oral, BID omega-3 acid ethyl esters 93403153900 Ana Maria Aguiar METFORMIN HCL 500 MG TABS 1 Tab, Oral, BID metformin 20130414517 Ana Maria Aguiar MUCINEX 600 MG HC11D-ATL 1 Tab, Oral, Q12H guaifenesin 16701773012 Ana Maria Aguiar PEPCID 20 MG TABS 1 Tab, Oral, Q12H famotidine 40866594761 Ana Maria Aguiar SENNA 8.6 MG TABS 1 Tab, Oral, At Bedtime sennosides [id number] Ana Maria Aguiar Medications Administered No information available. Allergies, Adverse Reactions, Alerts No information available. Results Date Name Value Unit Range Flag Description Office Visit: rm 13 - TH MEDS REVIEW Done Documenta tion of current medications (procedure) ORALTOBACUSE Never Tobacco smoking status SMOK STATUS Never smoker Toba outside sales account executive smoking status Plan of Care Type Date [...]
--- OUTSIDE RECORDS SUMMARY | 2025-05-23 14:40 | XMS_ITS | Clinical Summary ---
Author Organization [facility] Address [address] [place] [address] Care Team Providers Care Equipment Washer Name Role Phone Romeo Balderrama MD Primary Care Provider Allergies No known active allergies Medications alendronate [...] 0.5 ML misc 2 Active nystatin (Mycostatin) 768665 UNIT/GM powder 2 Active omega-3 1000 MG [...] Influenza, seasonal, injectable 06/19/2015,09/20 Moderna COVID-19 Vaccine (Biomedical Analytical Scientist) 12+ years ,11/28/2020 Family History Medical History [...] Last Done Comments [facility]-Bone Density Scan 1960 [facility]-Hepatitis C Screening 1960 [facility]-/Child/Adol SDOH Screenings 1960 Diabetes: Dental Exam 1970 [...] A1C 12/21/2022 06/23/2022 [facility]-Depression Screening 06/23/2023 06/23/2022 [facility]-Breast Cancer Screening 09/18/2024 09/18/2022 [id number]-45 Vaccine ( season) 2025 01/09/2022, 07/17/2021, 12/26/2020, Additional history exists [facility]-Influenza Vaccine (#1) 05/01/202506/16, 06/19/2015, 09/20/2014 [facility]-Obesity Intervention Completed 06/23/2022 HPV [...] to: 03/01/2013 Mammography Outside Images Upload at [facility] 10/19/2013 Mammography Outside Images Upload at [facility] 06/23/2017 Mammography Outside Images Upload at [facility] 07/13/2018 Mammography Outside Images Upload at [facility] BREAST COMPOSITION: The breasts are heterogeneously dense, which may obscure small masses. FINDINGS: There are no suspicious masses, calcifications, or areas of architectural distortion. us Romeo Balderrama MD IMG BI PROCEDURES Final Result * POCT glycosylated hemoglobin (Hb A1C) docked device (06/23/2022 3:34 PM EDT) POCT Hemoglobin A1C 5.9 4.4-6.6 % % [facility] Kit Lot Number [id number] [facility] Kit Expiration Date 09/06/2022 [facility] Blood Venous blood specimen / Unknown 06/23/2022 3:34 PM EDT us Minus Carlyle Balderrama MD POINT OF CARE TEST ENTER/EDIT ORDERABLES Final Result [facility] [address] [place] [id number] from Last 3 Months or Most Recently Relevant to Health Maintenance Insurance [place]ICA[place] Care Teams Equipment Washer Relationship Specialty Start Date End Date Romeo Balderrama MD [address] [phone] PCP - General Internal Medicine 06/23/22
[2025-05-23 14:54] LABS: Microscopic, Urine URINE MICROSCOPIC (MICROSCOPIC)
[2025-05-23 15:24] LABS: Hematocrit 31.2 % (37.0-47.0); Hemoglobin 11.1 g/dL (12.2-16.2); Immature Granulocytes % 0.9 %; Mean Corpuscular HGB Conc 35.6 g/dL (31.8-35.4); Mean Corpuscular Hemoglobin 30.9 pg (27.0-31.2); Mean Corpuscular Volume 86.9 fl (81-99); Nucleated Red Blood Cells % 0 %; Platelet Count 164 K/mm3 (142-424); Red Blood Count 3.59 M/mm3 (4.20-5.40); Red Cell Distribution Width-SD 39.9 fL; White Blood Count 6.8 K/mm3 (4.8-10.8)
[2025-05-23 15:55] LABS: Chloride 100 mmol/L (98-107)
[2025-05-23 15:56] LABS: Albumin Level 4.2 g/dl (3.5-5.0); Potassium 4.1 mmoL/L (3.5-5.1); Sodium 137 mmol/L (136-145)
[2025-05-23 15:59] LABS: Anion Gap 14.1 mEq/L (5-15); Blood Urea Nitrogen 47 mg/dl (7-17); Calcium 9.4 mg/dl (8.4-10.2); Carbon Dioxide 27 mmol/L (22.0-30.0); Creatinine,Serum 1.40 mg/dl (0.52-1.04); Estimated Glomerular Filt Rate 38 ml/min (>60); GFR (African American) 46 ML/MIN (>60); Glucose 123 mg/dl (74-100); Phosphorous 4.0 mg/dl (2.5-4.5)
[2025-05-23 16:02] LABS: Bilirubin,Urine Negative (Negative); Color,Urine YELLOW (Yellow); Glucose,Urine (UA) Negative (Negative); Ketones,Urine Negative (Negative); Leukocyte Esterase,Urine TRACE (Negative); PH,Urine 7.0 (5.0-8.5); Protein,Urine 2+ (Negative); Specific Gravity, Urine 1.020 (1.005-1.030); Urobilinogen,Urine 0.2 EU/dl (0.2)
[2025-05-23 20:30] LABS: Bacteria,Urine 2+ /lpf; RBC,Urine 50-100 #/hpf (0-3); Squamous Epithelial Cell,Urine 20-50 #/hpf (0-5)
== END 2025-05-23 23:59 | disposition home or self-care (01) ==
PROVIDERS: PCP Internal Medicine
DX: N18.32 Chronic kidney disease, stage 3b (principal); D64.9 Anemia, unspecified; R80.9 Proteinuria, unspecified
CPT/HCPCS: 36415; 80069; 81001; 82570; 84156; 85025; 87086

== ENCOUNTER 2025-07-05 14:08 | Outpatient (CLI) | payer MEDICARE, OTHER, SELFPAY ==
--- OUTSIDE RECORDS SUMMARY | 2025-07-05 14:12 | XMS_ITS | Clinical Summary ---
Author Organization [employer] ([place], [place], [place], [place], [place]) Address [address] [place] [address] Care Team Providers Care Tab Cutting Machine Operator Name Role Phone Unavailable Primary [...]
--- OUTSIDE RECORDS SUMMARY | 2025-07-05 14:12 | XMS_ITS | Referral Summary ---
Author Organization [employer] ([place], [place], [place], [place], [place]) Address [address] [place] [address] Care Team Providers Care Credit Authorizer Name Role Phone Unavailable Primary Care Provider [...]
--- OUTSIDE RECORDS SUMMARY | 2025-07-05 14:12 | XMS_ITS | Clinical Summary ---
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 Name Role Phone Gama Encinas MD Unavailable [ ] Conditions or Problems Problem Name Problem Code Onset Date Status Entry Date Provider Comment Standard Description Annotate Pressure ulcer of left buttock, stage 3 224720935641 [id number] (SNOMED CT) 05/11 Active 05/11 Giulia Jairon Pressure injury of buttock stage III Pressure ulcer of left buttock, stage 2 858429092071 09 (SNOMED CT) 05/11 Active 05/11 Giulia Jairon Pressure injury of left buttock stage II Citrobacter infection B96.89 (ICD-10-CM) 05/11 Active 05/11 Giulia Jairon Other specified bacterial agents as the cause of diseases classified elsewhere MRSA infection 693031732 (SNOMED CT) 05/11 Active 05/11 Giulia Jairon Methicillin resistant Staphylococcus aureus infection Corynebacteri um infection B96.89 (ICD-10-CM) 05/11 Active 05/11 Giulia Jairon Other specified bacterial agents as the cause of diseases classified elsewhere Klebsiella infection B96.1 (ICD-10-CM) 05/11 Active 05/11 Giulia Jairon Klebsiella pneumoniae [K. pneumoniae] as the cause of diseases classified elsewhere Urinary tract infection (UTI) 21689338 (SNOMED CT) 05/11 Active 05/11 Giulia Jairon Urinary tract infectious disease Acute renal failure due to dehydration 363134725 (SNOMED CT) 05/11 Active 05/11 Giulia Jairon [...] diabetes mellitus without complications Benign Essential Hypertension 89377917 (SNOMED CT) 05/11 Active 05/11 Giulia De La O Benign hypertension Medications Medication Instructions Start Date Stop Date Generic Name NDC Provider ACETAMINOPHEN 325 MG TABS 2 Tab, PRN, Oral, Q6H acetaminophen 46254639095 Ana Maria Aguiar BISOPROLOL FUMARATE 5 MG TABS 1 Tab, Oral, Daily bisoprolol fumarate 22108978436 Ana Maria Aguiar CEFUROXIME AXETIL 500 MG TABS 1 Tab, Oral, BID cefuroxime axetil 28257669633 Ana Maria Aguiar FARXIGA 10 MG TABS 1 Tab, Oral, Daily dapagliflozin 27173196203 Ana Maria Aguiar FERROUS SULFATE 325 (65 Fe) MG TABS 1 Tab, Oral, BID ferrous sulfate 41164643176 Ana Maria Aguiar PRAVASTATIN SODIUM 40 MG TABS 1 Tab, Oral, At Bedtime pravastatin 66174825959 Ana Maria Aguiar DOCUSATE SODIUM 100 MG CAPS 1 Cap, PRN, Oral, BID docusate sodium 36896831397 Ana Maria Aguiar FOSAMAX PLUS D 70-2800 MG-UNIT TABS 1 Tab, Oral, Weekly alendronate-josephine min d3 84471309311 Ana Maria Aguiar LOVAZA 1 GM CAPS 2 Cap, Oral, BID omega-3 acid ethyl esters 91029684555 Ana Maria Aguiar METFORMIN HCL 500 MG TABS 1 Tab, Oral, BID metformin 93051838161 Ana Maria Aguiar MUCINEX 600 MG RT80Q-EAR 1 Tab, Oral, Q12H guaifenesin 36908364416 Ana Maria Aguiar PEPCID 20 MG TABS 1 Tab, Oral, Q12H famotidine 68623487035 Ana Maria Aguiar SENNA 8.6 MG TABS 1 Tab, Oral, At Bedtime sennosides [id number] Ana Maria Aguiar Medications Administered No information available. Allergies, Adverse Reactions, Alerts No information available. 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
--- OUTSIDE RECORDS SUMMARY | 2025-07-05 14:12 | XMS_ITS | Clinical Summary ---
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 Name Role Phone Romeo Balderrama MD Primary Care Provider [phone] Allergies No known active allergies Medications alendronate [...] 0.5 ML misc 2 Active nystatin (Mycostatin) 055337 UNIT/GM powder 2 Active omega-3 1000 MG [...] Influenza, seasonal, injectable 06/19/2015,09/20 Moderna COVID-19 Vaccine ([employer]) 12+ years ,11/28/2020 Family History Medical History [...] 06/23/2023 06/23/2022 [facility]-Breast Cancer Screening 09/18/2024 09/18/2022 [id number] Vaccine ( season) 2025 01/09/2022, 07/17/2021, 12/26/2020, Additional history exists [facility]-Influenza Vaccine (#1) 05/01/202506/16, 06/19/2015, 09/20/2014 HPV Vaccines Aged Out No longer eligi [...] to: 03/01/2013 Mammography Outside Images Upload at [facility] 10/19/2013 Mammography Outside Images Upload at [facility] 06/23/2017 Mammography Outside Images Upload at [facility] 07/13/2018 Mammography Outside Images Upload at [facility] BREAST COMPOSITION: The breasts are heterogeneously dense, which may obscure small masses. FINDINGS: There are no suspicious masses, calcifications, or areas of architectural distortion. 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
[2025-07-05 14:17] LABS: Microscopic, Urine URINE MICROSCOPIC (MICROSCOPIC)
[2025-07-05 14:47] LABS: Hematocrit 32.4 % (37.0-47.0); Hemoglobin 10.8 g/dL (12.2-16.2); Immature Granulocytes % 0.2 %; Mean Corpuscular HGB Conc 33.3 g/dL (31.8-35.4); Mean Corpuscular Hemoglobin 29.8 pg (27.0-31.2); Mean Corpuscular Volume 89.5 fl (81-99); Nucleated Red Blood Cells % 0 %; Platelet Count 125 K/mm3 (142-424); Red Blood Count 3.62 M/mm3 (4.20-5.40); Red Cell Distribution Width-SD 41.7 fL; White Blood Count 5.0 K/mm3 (4.8-10.8)
[2025-07-05 15:06] LABS: Chloride 98 mmol/L (98-107)
[2025-07-05 15:07] LABS: Albumin Level 4.5 g/dl (3.5-5.0); Potassium 4.2 mmoL/L (3.5-5.1); Sodium 136 mmol/L (136-145)
[2025-07-05 15:09] LABS: Blood Urea Nitrogen 66 mg/dl (7-17); Creatinine,Serum 1.90 mg/dl (0.52-1.04); Estimated Glomerular Filt Rate 27 ml/min (>60); GFR (African American) 32 ML/MIN (>60)
[2025-07-05 15:10] LABS: Anion Gap 14.2 mEq/L (5-15); Calcium 8.7 mg/dl (8.4-10.2); Carbon Dioxide 28 mmol/L (22.0-30.0); Glucose 182 mg/dl (74-100); Phosphorous 3.9 mg/dl (2.5-4.5)
[2025-07-05 19:59] LABS: Bilirubin,Urine Negative (Negative); Color,Urine YELLOW (Yellow); Glucose,Urine (UA) TRACE (Negative); Ketones,Urine Negative (Negative); Leukocyte Esterase,Urine Negative (Negative); PH,Urine 6.0 (5.0-8.5); Protein,Urine 2+ (Negative); Specific Gravity, Urine 1.020 (1.005-1.030); Urobilinogen,Urine 0.2 EU/dl (0.2)
[2025-07-05 20:12] LABS: Bacteria,Urine Trace /lpf; Squamous Epithelial Cell,Urine Occasional #/hpf (0-5)
== END 2025-07-05 23:59 | disposition home or self-care (01) ==
LOC: LAB 14:09
PROVIDERS: PCP Internal Medicine; Visit Provider Student in an Organized Health Care Education/Training Program
DX: N18.32 Chronic kidney disease, stage 3b (principal)
CPT/HCPCS: 36415; 80069; 81001; 82570; 84156; 85025